=== PATIENT | male | born 1945 | race African-American/Black ===

== ENCOUNTER 2017-07-05 15:08 | Inpatient (IN) | payer OTHER ==
--- NOTE | 2017-07-05 16:04 | PDOC ---
History of Present Illness - History of Present Illness Initial Comments: 07/05/17 17:04 The patient is a 72 year old male who was BIBA from [facility], with PMHx of diabetes, who was sent to the the emergency department by Dr. Rangel Morel for semi-purulent drainage from dorsal aspect of right foot. Patient denied experiencing any current symptoms. Allergies: NKA Social History: Nonsmoker. Denies EtOH use and recreational drug use. Primary Care Physician: Rangel Morel <Angy Watts - Last Filed: 07/05/17 17:03> <Lucía Ford - Last Filed: 07/08/17 22:28> - General Chief Complaint: Wound Infection Stated Complaint: WOUND CARE ADMISSION Time Seen by Provider: 07/05/17 16:04 Past History <Angy Watts - Last Filed: 07/05/17 17:03> - Past Medical History CVA: Yes Diabetes: Yes HTN: Yes Hypercholesterolemia: Yes - Suicide/Smoking/Psychosocial Hx Smoking History: Former smoker Have you smoked in the past 12 months: No Information on smoking cessation initiated: No Hx Alcohol Use: No Drug/Substance Use Hx: No Substance Use Type: None <Lucía Ford - Last Filed: 07/08/17 22:28> - Past Medical History Allergies/Adverse Reactions: Allergies Allergy/AdvReac Type Severity Reaction Status Date / Time watermelon Allergy Unknown Verified 07/05/17 15:24 Home Medications: Ambulatory Orders Albuterol Sulfate 0.5% [Ventolin 0.5% Nebulizing Soln. -] 1 amp IH PRN 07/05/17 Allopurinol [Zyloprim -] 100 mg PO DAILY 07/05/17 Amlodipine Besylate 5 mg PO DAILY 07/05/17 Atorvastatin Ca [Lipitor] 20 mg PO HS 07/05/17 Clopidogrel Bisulfate [Plavix -] 75 mg PO DAILY 07/05/17 Diphenhydramine [Benadryl Capsule -] 25 mg PO HS 07/05/17 Review of Systems - Review of Systems Comments:: 07/05/17 17:03 GENERAL/CONSTITUTIONAL: No fever or chills. No weakness. HEAD, EYES, EARS, NOSE AND THROAT: No change in vision. No ear pain or discharge. No sore throat. CARDIOVASCULAR: No chest pain or shortness of breath. RESPIRATORY: No cough, wheezing, or hemoptysis. GASTROINTESTINAL: No nausea, vomiting, diarrhea or constipation. GENITOURINARY: No dysuria, frequency, or change in urination. MUSCULOSKELETAL: No joint or muscle swelling or pain. No neck or back pain. SKIN: +right foot drainage. NEUROLOGIC: No headache, vertigo, loss of consciousness, or change in strength/ sensation. ENDOCRINE: No increased thirst. No abnormal weight change. HEMATOLOGIC/LYMPHATIC: No anemia, easy bleeding, or history of blood clots. ALLERGIC/IMMUNOLOGIC: No hives or skin allergy. <Angy Watts - Last Filed: 07/05/17 17:03> *Physical Exam - Vital Signs Last Vital Signs Temp Pulse Resp BP Pulse Ox 97.3 F L 67 20 160/80 98 07/05/17 15:25 07/05/17 15:25 07/05/17 15:07/05/17 15:07/05/17 15:25 - Physical Exam Comments: 07/05/17 17:03 GENERAL: Awake, alert, and fully oriented, in no acute distress HEAD: No signs of trauma EYES: PERRLA, EOMI, sclera anicteric, conjunctiva clear ENT: Auricles normal inspection, hearing grossly normal, nares patent, oropharynx clear without exudates. Moist mucosa NECK: Normal ROM, supple, no lymphadenopathy, JVD, or masses LUNGS: Breath sounds equal, clear to auscultation bilaterally. No wheezes, and no crackles HEART: Regular rate and rhythm, normal S1 and S2, no murmurs, rubs or gallops ABDOMEN: Soft, nontender, normoactive bowel sounds. No guarding, no rebound. No masses EXTREMITIES: Normal range of motion, no edema. No clubbing or cyanosis. No cords, erythema, or tenderness NEUROLOGICAL: Cranial nerves II through XII grossly intact. Normal speech, normal gait SKIN: +semi-purulent drainage from dorsal aspect of right foot. <Angy Watts - Last Filed: 07/05/17 17:03> - Vital Signs Last Vital Signs Temp Pulse Resp BP Pulse Ox 97.3 F L 67 20 160/80 98 07/05/17 15:25 07/05/17 15:25 07/05/17 15:25 07/05/17 15:25 07/05/17:25 <Lucía Ford - Last Filed: 07/08/17 22:28> ED Treatment Course - LABORATORY CBC & Chemistry Diagram: 07/06/17 07:50 07/06/17 07:50 <Lucía Ford - Last Filed: 07/08/17 22:28> Medical Decision Making - Medical Decision Making 07/05/17 18:39 Pt comes from wound care clinic with a hand written note by Dr. Scott to admit patient for infected foot and cellulitic leg. Today pt had lalit boot removed and he has drainage from the foot. Pt's BUN and CR are elevated - we will treat with NSS 500 ml. He received vanco and zosyn for the leg and foot. Pt has no other complaints. He states that he is afebrile and he was unaware that the foot was infected inside the lalit boot. Pt lives at [facility]; states that he had been on section * living on his own, but that [facility] recruited him and took his apt away from him. 07/08/17 22:27 Pt will be admitted for IV abx <Lucía Ford - Last Filed: 07/08/17 22:28> *DC/Admit/Observation/Transfer - Attestations Scribe Attestion: 07/05/17 17:05 Documentation prepared by Angy Watts, acting as medical language specialist for Lucía Ford MD. <Angy Watts - Last Filed: 07/05/17 17:03> - Discharge Dispostion Admit: Yes <Lucía Ford - Last Filed: 07/08/17 22:28> Diagnosis at time of Disposition: Cellulitis, leg, Cellulitis of foot - Discharge Dispostion Condition at time of disposition: Guarded
[2017-07-05] MEDS ORDERED: VANCOMYCIN 1,000 MG in DEXTROSE 5%-WATER - 250 ML IVPB ONE (16:34)
[2017-07-05] MEDS ORDERED: PIPERACILLIN/TAZOB 3.375 GM 3.375 GM in DEXTROSE 5%-WATER - 50 ML IVPB ONE (16:35)
[2017-07-05] MEDS ORDERED: VANCOMYCIN 1 GRAM (PRE-DOCKED) 250 ML IVPB ONE (18:12)
[2017-07-05] MEDS ORDERED: PIPERACILLIN/TAZOB 3.375 GM 50 ML IVPB ONE (18:12)
[2017-07-05 18:20] LABS: BASOPHIL 1.4 % (0-2.0); MCHC 32.7 g/dl (32.0-35.9); MEAN CELL VOLUME 91.6 fl (80-96); MEAN PLT VOLUME 9.6 fl (7.5-11.1); NEUTROPHILS 59.3 % (42.8-82.8); PLATELET COUNT 225 K/MM3 (134-434); RDW 14.3 % (11.9-15.9); WHITE BLOOD COUNT 6.8 K/mm3 (4.0-10.0)
[2017-07-05 18:29] LABS: ALBUMIN 2.7 g/dl (3.4-5.0); ALK PHOS 116 U/L (45-117); ANION GAP 8 (8-16); BILIRUBIN,TOTAL 0.3 mg/dL (0.2-1.0); C-REACTIVE PROTEIN 4.1 MG/DL (0.00-0.3); CALCIUM 8.3 mg/dL (8.5-10.1); CO2 28 mmol/L (21-32); CREATININE 1.7 mg/dL (0.7-1.3); GLUCOSE,RANDOM 114 mg/dL (74-106); SGOT/AST 16 U/L (15-37); SGPT/ALT 20 U/L (12-78); TOT PROT 7.8 g/dl (6.4-8.2)
[2017-07-05] MEDS ORDERED: SODIUM CHLORIDE 0.9% 500 ML INFUS.BAG IV ONE (18:38)
[2017-07-05] MEDS ORDERED: diphenhydrAMINE HCL 25 MG CAPSULE (FP) PO PRN (20:06)
[2017-07-05] MEDS ORDERED: ACETAMINOPHEN 325 MG TABLET (FP) PO PRN (20:06)
[2017-07-05] MEDS ORDERED: ALBUTEROL SO4 2.5/IPRATROPIUM 0.5 INH SOL 3 ML VIAL.NEB. NEB PRN (20:06)
--- NOTE | 2017-07-05 20:07 | HP ---
Admitting History and Physical - Primary Care Physician PCP: Filippo Clarke - Admission Chief Complaint: wound infection - Smoking History Smoking history: Former smoker Have you smoked in the past 12 months: No - Alcohol/Substance Use Hx Alcohol Use: No Home Medications - Allergies Allergies/Adverse Reactions: Allergies Allergy/AdvReac Type Severity Reaction Status Date / Time watereleazaron Allergy Unknown Verified 07/05/17 15:24 - Home Medications Home Medications: Ambulatory Orders Albuterol Sulfate 0.5% [Ventolin 0.5% Nebulizing Soln. -] 1 amp IH PRN 07/05/17 Allopurinol [Zyloprim -] 100 mg PO DAILY 07/05/17 Amlodipine Besylate 5 mg PO DAILY 07/05/17 Atorvastatin Ca [Lipitor] 20 mg PO HS 07/05/17 Clopidogrel Bisulfate [Plavix -] 75 mg PO DAILY 07/05/17 Diphenhydramine [Benadryl Capsule -] 25 mg PO HS 07/05/17 Physical Examination Vital Signs: Vital Signs Temperature 98 F 07/05/17 19:40 Pulse Rate 72 07/05/17 19:40 Respiratory Rate 18 07/05/17 19:40 Blood Pressure 148/70 07/05/17 19:40 O2 Sat by Pulse Oximetry (%) 98 07/05/17 19:40 Labs: CBC, BMP 07/05/17 17:50 07/05/17 17:50
[2017-07-05] MEDS: HEPARIN NA (PORCINE) 5,000 UNITS/ML 1ML VIAL SQ SCH (22:10)
[2017-07-05] MEDS: ATORVASTATIN CA 20 MG TABLET (FP) PO SCH (22:10)
[2017-07-05 22:48] VITALS: BMI 39.1
[2017-07-06 09:00] LABS: MCH 29.1 pg (25.7-33.7); MCHC 31.8 g/dl (32.0-35.9); MEAN CELL VOLUME 91.6 fl (80-96); MEAN PLT VOLUME 9.8 fl (7.5-11.1); PLATELET COUNT 201 K/MM3 (134-434); RDW 14.1 % (11.9-15.9); WHITE BLOOD COUNT 6.3 K/mm3 (4.0-10.0)
[2017-07-06 09:18] LABS: ALBUMIN 2.4 g/dl (3.4-5.0); ANION GAP 10 (8-16); CALCIUM 8.6 mg/dL (8.5-10.1); CHOLESTEROL 245 mg/dL (50-200); CO2 25 mmol/L (21-32); GLUCOSE,RANDOM 104 mg/dL (74-106); SGOT/AST 11 U/L (15-37)
[2017-07-06 09:20] LABS: ALK PHOS 99 U/L (45-117); BILIRUBIN,TOTAL 0.4 mg/dL (0.2-1.0); CREATININE 1.7 mg/dL (0.7-1.3); SGPT/ALT 16 U/L (12-78)
[2017-07-06] MEDS: ALLOPURINOL 100 MG TABLET (FP) PO SCH (10:10)
[2017-07-06] MEDS: amLODIPine BESYLATE 5 MG TABLET (FP) PO SCH (10:10)
[2017-07-06] MEDS: HEPARIN NA (PORCINE) 5,000 UNITS/ML 1ML VIAL SQ SCH ×2 (10:13→21:49)
[2017-07-06] MEDS: CLOPIDOGREL BISULFATE 75 MG TABLET (FP) PO SCH (10:13)
[2017-07-06 11:35] LABS: ERYTHROCYTE SEDIMENTATION RATE > 130 mm/hr (0-20)
--- NOTE | 2017-07-06 11:55 | EKG ---
Test Reason : Blood Pressure : / mmHG Vent. Rate : 068 BPM Atrial Rate : 068 BPM P-R Int : 210 ms QRS Dur : 078 ms QT Int : 392 ms P-R-T Axes : 065 049 144 degrees QTc Int : 416 ms SINUS RHYTHM WITH SINUS ARRHYTHMIA WITH 1ST DEGREE A-V BLOCK POSSIBLE LEFT ATRIAL ENLARGEMENT T WAVE ABNORMALITY, CONSIDER INFEROLATERAL ISCHEMIA ABNORMAL ECG NO PREVIOUS ECGS AVAILABLE Confirmed by AVERY BISHOP, SONAL ([id number]) on 07/06/2017 11:55:02 AM Referred By: Confirmed By:SONAL VARELA MD
--- NOTE | 2017-07-06 14:37 | CON.ID ---
Consult Consult Specialty:: infectious diseases Reason for Consultation:: cellulitis of the rt leg and wound infection - History of Present Illness Chief Complaint: swelling of the rt foot and wound infection History of Present Illness: this patient who has multiple medical problems admitted to the hospital because of wound infection of the rt foot. patients foot had been placed in lalit boot for some time and when the lalit boot was removed it was found that the patient had infection of the foot patients had gone to the wound care yesterday and the dressing was changed.it was found that the drainage was coming from the dorsal part of the leg which was purulent and foul smelling patients wound was cultured yesterday from the wound care patient has very contracted leg and very painful also he has scaly patches on the leg i have spoken with our wound care department in detail and according to the wound care purulent drainage was noted patient currently stable patient was send by pcp because he saw purulent drainage patient has known h/o of seizures and is contracted - History Source History Provided By: Patient Limitations to Obtaining History: No Limitations - Alcohol/Substance Use Hx Alcohol Use: No - Smoking History Smoking history: Former smoker Have you smoked in the past 12 months: No Home Medications - Allergies Allergies/Adverse Reactions: Allergies Allergy/AdvReac Type Severity Reaction Status Date / Time watermelon Allergy Unknown Verified 07/05/17 15:24 - Home Medications Home Medications: Ambulatory Orders Albuterol Sulfate 0.5% [Ventolin 0.5% Nebulizing Soln. -] 1 amp IH PRN 07/05/17 Allopurinol [Zyloprim -] 100 mg PO DAILY 07/05/17 Amlodipine Besylate 5 mg PO DAILY 07/05/17 Atorvastatin Ca [Lipitor] 20 mg PO HS 07/05/17 Clopidogrel Bisulfate [Plavix -] 75 mg PO DAILY 07/05/17 Diphenhydramine [Benadryl Capsule -] 25 mg PO HS 07/05/17 Review of Systems - Review of Systems Constitutional: reports: Other Eyes: reports: No Symptoms HENT: reports: No Symptoms Neck: reports: No Symptoms Cardiovascular: reports: No Symptoms Respiratory: reports: No Symptoms Gastrointestinal: reports: No Symptoms Musculoskeletal: reports: Extremity Pain, Joint Pain, Other Integumentary: reports: Erythema, Wound, Other Neurological: reports: No Symptoms Endocrine: reports: No Symptoms Hematology/Lymphatic: reports: No Symptoms Psychiatric: reports: No Symptoms Physical Exam Vital Signs: Vital Signs Temperature 98.0 F 07/06/17 13:37 Pulse Rate 83 07/06/17 13:37 Respiratory Rate 20 07/06/17 13:37 Blood Pressure 159/43 07/06/17 13:37 O2 Sat by Pulse Oximetry (%) 98 07/05/17 19:40 Constitutional: Yes: Poor Hygeine, Other Eyes: Yes: Conjunctiva Clear Cardiovascular: Yes: Regular Rate and Rhythm Respiratory: Yes: Regular, CTA Bilaterally Gastrointestinal: Yes: Normal Bowel Sounds, Soft Musculoskeletal: Yes: Other Extremities: Yes: Other (contracted) Integumentary: Yes: Other Wound/Incision: Yes: Dressing Dry and Intact, Draining Neurological: Yes: Alert, Oriented Psychiatric: Yes: Alert, Oriented Labs: CBC, BMP 07/06/17 07:50 07/06/17 07:50 Imaging - Results X-ray: Report Reviewed, Image Reviewed Assessment/Plan cellulitits of the rt foot wound infection plan will start on pablo and treyn await for wound care to see the patient decision to do mri rest as per primary
[2017-07-06] MEDS ORDERED: PIPERACILLIN/TAZOB 2.25 GM 50 ML IVPB SCH (15:00)
[2017-07-06] MEDS: VANCOMYCIN 1,250 MG in DEXTROSE 5%-WATER - 250 ML IVPB SCH (16:24)
--- NOTE | 2017-07-06 17:18 | HP ---
Admitting History and Physical - Admission History of Present Illness: 72 year old male who was BIBA from [facility], with PMHx of diabetes , who was sent to the the emergency department by Dr. Rangel Morel for semi- purulent drainage from dorsal aspect of right foot. - Past Medical History Cardiovascular: Yes: HTN, Hyperlipdemia Pulmonary: Yes: COPD Endocrine: Yes: Diabetes Mellitus - Smoking History Smoking history: Former smoker Have you smoked in the past 12 months: No - Alcohol/Substance Use Hx Alcohol Use: No Home Medications - Allergies Allergies/Adverse Reactions: Allergies Allergy/AdvReac Type Severity Reaction Status Date / Time watermelon Allergy Unknown Verified 07/05/17 15:24 - Home Medications Home Medications: Ambulatory Orders Albuterol Sulfate 0.5% [Ventolin 0.5% Nebulizing Soln. -] 1 amp IH PRN 07/05/17 Allopurinol [Zyloprim -] 100 mg PO DAILY 07/05/17 Amlodipine Besylate 5 mg PO DAILY 07/05/17 Atorvastatin Ca [Lipitor] 20 mg PO HS 07/05/17 Clopidogrel Bisulfate [Plavix -] 75 mg PO DAILY 07/05/17 Diphenhydramine [Benadryl Capsule -] 25 mg PO HS 07/05/17 Review of Systems - Review of Systems Integumentary: reports: Other (foot ulcer--followed at wound care) Physical Examination Vital Signs: Vital Signs Temperature 98.0 F 07/06/17 13:37 Pulse Rate 83 07/06/17 13:37 Respiratory Rate 20 07/06/17 13:37 Blood Pressure 159/43 07/06/17 13:37 O2 Sat by Pulse Oximetry (%) 98 07/05/17 19:40 Cardiovascular: Yes: Regular Rate and Rhythm Respiratory: Yes: Regular, CTA Bilaterally Gastrointestinal: Yes: Normal Bowel Sounds, Soft Wound/Incision: Yes: Dressing Dry and Intact Labs: CBC, BMP 07/06/17 07:50 07/06/17 07:50 Problem List - Problems (1) Cellulitis of foot Assessment/Plan: IV ABX PER ID FOLLOW LABS FOLLOW CULTURES WOUND PER SURGEON Code(s): L03.119 - CELLULITIS OF UNSPECIFIED PART OF LIMB (2) HTN (hypertension) Assessment/Plan: Vital Signs Period Temp Pulse Resp BP Sys/Zamorano Pulse Ox Last 24 Hr 98 F-98.4 F 69-83 18-20 139-160/43-86 98 Code(s): I10 - ESSENTIAL (PRIMARY) HYPERTENSION
--- NOTE | 2017-07-06 18:23 | CONSULT ---
Consult - Past Medical History Cardio/Vascular: Yes: HTN, Hyperlipdemia Pulmonary: Yes: COPD Endocrine: Yes: Diabetes Mellitus - Alcohol/Substance Use Hx Alcohol Use: No - Smoking History Smoking history: Former smoker Have you smoked in the past 12 months: No Home Medications - Allergies Allergies/Adverse Reactions: Allergies Allergy/AdvReac Type Severity Reaction Status Date / Time watermelon Allergy Unknown Verified 07/05/17 15:24 - Home Medications Home Medications: Ambulatory Orders Albuterol Sulfate 0.5% [Ventolin 0.5% Nebulizing Soln. -] 1 amp IH PRN 07/05/17 Allopurinol [Zyloprim -] 100 mg PO DAILY 07/05/17 Amlodipine Besylate 5 mg PO DAILY 07/05/17 Atorvastatin Ca [Lipitor] 20 mg PO HS 07/05/17 Clopidogrel Bisulfate [Plavix -] 75 mg PO DAILY 07/05/17 Diphenhydramine [Benadryl Capsule -] 25 mg PO HS 07/05/17 Physical Exam Vital Signs: Vital Signs Temperature 98.0 F 07/06/17 13:37 Pulse Rate 83 07/06/17 13:37 Respiratory Rate 20 07/06/17 13:37 Blood Pressure 159/43 07/06/17 13:37 O2 Sat by Pulse Oximetry (%) 98 07/05/17 19:40 Labs: CBC, BMP 07/06/17 07:50 07/06/17 07:50 Assessment/Plan Vascular Surgery 72 year old male who was BIBA from [facility], with PMHx of diabetes , who was sent to the the emergency department by Dr. Rangel Morel for semi- purulent drainage from dorsal aspect of right foot. - Past Medical History Cardiovascular: Yes: HTN, Hyperlipdemia Pulmonary: Yes: COPD Endocrine: Yes: Diabetes Mellitus - Smoking History Smoking history: Former smoker Have you smoked in the past 12 months: No - Alcohol/Substance Use Hx Alcohol Use: No Home Medications - Allergies Allergies/Adverse Reactions: Allergies Allergy/AdvReac Type Severity Reaction Status Date / Time watermelon Allergy Unknown Verified 07/05/17 15:24 - Home Medications Home Medications: Ambulatory Orders Albuterol Sulfate 0.5% [Ventolin 0.5% Nebulizing Soln. -] 1 amp IH PRN 07/05/17 Allopurinol [Zyloprim -] 100 mg PO DAILY 07/05/17 Amlodipine Besylate 5 mg PO DAILY 07/05/17 Atorvastatin Ca [Lipitor] 20 mg PO HS 07/05/17 Clopidogrel Bisulfate [Plavix -] 75 mg PO DAILY 07/05/17 Diphenhydramine [Benadryl Capsule -] 25 mg PO HS 07/05/17 PE Head - NC/AT Lung - cTA Heart - rRR abd - soft,nt,nd ext - right foot warm, DP pulse palpable. wound inbetween first web space with maggots. Wound is clean, pink. A/P Right foot wound with deformity (charcot) Maggots in wound -- flushed out. Santyl to wounds daily. Palpable pulses. Amos Mcneil DO
[2017-07-06] MEDS: PIPERACILLIN/TAZOB 2.25 GM 50 ML IVPB SCH (18:33)
[2017-07-06] MEDS: COLLAGENASE CLOSTRIDIUM HIST. 30 GRAMS TUBE TP SCH (19:30)
[2017-07-06] MEDS: ATORVASTATIN CA 20 MG TABLET (FP) PO SCH (21:49)
[2017-07-07] MEDS: PIPERACILLIN/TAZOB 2.25 GM 50 ML IVPB SCH ×4 (01:12→18:11)
--- NOTE | 2017-07-07 08:43 | PN ---
Progress Note, Physician - Current Medication List Current Medications: Active Medications Acetaminophen (Tylenol -) 650 mg PO Q6H PRN PRN Reason: FEVER OR PAIN Albuterol/Ipratropium (Duoneb -) 1 amp NEB Q6H PRN PRN Reason: SHORTNESS OF BREATH Allopurinol (Zyloprim -) 100 mg PO DAILY [facility] Last Admin: 07/06/17 10:10 Dose: 100 mg Amlodipine Besylate (Norvasc -) 5 mg PO DAILY [facility] Last Admin: 07/06/17 10:10 Dose: 5 mg Atorvastatin Calcium (Lipitor -) 20 mg PO HS [facility] Last Admin: 07/06/17 21:49 Dose: 20 mg Clopidogrel Bisulfate (Plavix -) 75 mg PO DAILY [facility] Last Admin: 07/06/17 10:13 Dose: Not Given Collagenase (Santyl -) 1 applic TP DAILY [facility] Last Admin: 07/06/17 19:30 Dose: 1 applic Diphenhydramine HCl (Benadryl -) 25 mg PO HS PRN PRN Reason: INSOMNIA Heparin Sodium (Porcine) (Heparin -) 5,000 unit SQ BID [facility] Last Admin: 07/06/17 21:49 Dose: 5,000 unit Vancomycin HCl 1,250 mg/ (Dextrose) 250 mls @ 150 mls/hr IVPB DAILY@1500 CHANTELL PRN Reason: Protocol Last Admin: 07/06/17 16:24 Dose: 150 mls/hr Piperacillin/Tazobactam/Dextrose (Zosyn 2.25gm Ivpb (Premix)) 50 mls @ 100 mls/ hr IVPB Q8H-IV CHANTELL PRN Reason: Protocol Last Admin: 07/07/17 08:01 Dose: Not Given - Objective Vital Signs: Vital Signs Temperature 98.0 F 07/07/17 06:19 Pulse Rate 69 07/07/17 06:19 Respiratory Rate 20 07/07/17 06:19 Blood Pressure 152/57 07/07/17 06:19 O2 Sat by Pulse Oximetry (%) 98 07/05/17 19:40 Cardiovascular: Yes: Regular Rate and Rhythm Respiratory: Yes: Regular, CTA Bilaterally Gastrointestinal: Yes: Normal Bowel Sounds, Soft Labs: CBC, BMP 07/06/17 07:50 07/06/17 07:50 Problem List - Problems (1) Cellulitis of foot Assessment/Plan: IV ABX PER ID FOLLOW LABS FOLLOW CULTURES WOUND PER SURGEON Code(s): L03.119 - CELLULITIS OF UNSPECIFIED PART OF LIMB (2) HTN (hypertension) Assessment/Plan: Vital Signs Period Temp Pulse Resp BP Sys/Zamorano Pulse Ox Last 24 Hr 98 F-98.4 F 69-83 18-20 139-160/43-86 98 Code(s): I10 - ESSENTIAL (PRIMARY) HYPERTENSION (3) Wound, open, foot Assessment/Plan: PER SURGERY ABX PER ID Code(s): S91.309A - UNSPECIFIED OPEN WOUND, UNSPECIFIED FOOT, INITIAL ENCOUNTER
[2017-07-07] MEDS: CLOPIDOGREL BISULFATE 75 MG TABLET (FP) PO SCH (09:36)
[2017-07-07] MEDS: ALLOPURINOL 100 MG TABLET (FP) PO SCH (09:37)
[2017-07-07] MEDS: amLODIPine BESYLATE 5 MG TABLET (FP) PO SCH (09:37)
[2017-07-07] MEDS: HEPARIN NA (PORCINE) 5,000 UNITS/ML 1ML VIAL SQ SCH ×2 (09:38→21:22)
[2017-07-07] MEDS: COLLAGENASE CLOSTRIDIUM HIST. 30 GRAMS TUBE TP SCH (12:47)
--- NOTE | 2017-07-07 12:48 | PN ---
Progress Note, Physician History of Present Illness: patient stable dressing removed wound looked at - Current Medication List Current Medications: Active Medications Acetaminophen (Tylenol -) 650 mg PO Q6H PRN PRN Reason: FEVER OR PAIN Albuterol/Ipratropium (Duoneb -) 1 amp NEB Q6H PRN PRN Reason: SHORTNESS OF BREATH Allopurinol (Zyloprim -) 100 mg PO DAILY [facility] Last Admin: 07/07/17 09:37 Dose: 100 mg Amlodipine Besylate (Norvasc -) 5 mg PO DAILY [facility] Last Admin: 07/07/17 09:37 Dose: 5 mg Atorvastatin Calcium (Lipitor -) 20 mg PO HS [facility] Last Admin: 07/06/17 21:49 Dose: 20 mg Clopidogrel Bisulfate (Plavix -) 75 mg PO DAILY [facility] Last Admin: 07/07/17 09:36 Dose: 75 mg Collagenase (Santyl -) 1 applic TP DAILY [facility] Last Admin: 07/06/17 19:30 Dose: 1 applic Diphenhydramine HCl (Benadryl -) 25 mg PO HS PRN PRN Reason: INSOMNIA Heparin Sodium (Porcine) (Heparin -) 5,000 unit SQ BID [facility] Last Admin: 07/07/17 09:38 Dose: 5,000 unit Vancomycin HCl 1,250 mg/ (Dextrose) 250 mls @ 150 mls/hr IVPB DAILY@1500 CHANTELL PRN Reason: Protocol Last Admin: 07/06/17 16:24 Dose: 150 mls/hr Piperacillin/Tazobactam/Dextrose (Zosyn 2.25gm Ivpb (Premix)) 50 mls @ 100 mls/ hr IVPB Q8H-IV [facility]ANTELL PRN Reason: Protocol Last Admin: 07/07/17 09:39 Dose: 100 mls/hr - Objective Vital Signs: Vital Signs Temperature 98.0 F 07/07/17 06:19 Pulse Rate 69 07/07/17 06:19 Respiratory Rate 20 07/07/17 09:00 Blood Pressure 152/57 07/07/17 06:19 O2 Sat by Pulse Oximetry (%) 98 07/05/17 19:40 Constitutional: Yes: No Distress, Calm Neck: Yes: Supple, Trachea Midline Cardiovascular: Yes: Regular Rate and Rhythm Respiratory: Yes: Regular, CTA Bilaterally Gastrointestinal: Yes: Normal Bowel Sounds, Soft Musculoskeletal: Yes: Other Extremities: Yes: Other (contracted) Wound/Incision: Yes: Dressing Removed, Other (patient had maggots in the wound) Neurological: Yes: Alert Psychiatric: Yes: Alert, Oriented Labs: CBC, BMP 07/06/17 07:50 07/06/17 07:50 Assessment/Plan cellulitits of the rt foot wound infection plan continue abx wound cx noted possibly mrsa with polymicrobial infection await for identification and sensitivities of the organism
[2017-07-07] MEDS: VANCOMYCIN 1,250 MG in DEXTROSE 5%-WATER - 250 ML IVPB SCH (15:59)
[2017-07-07] MEDS: ATORVASTATIN CA 20 MG TABLET (FP) PO SCH (21:22)
[2017-07-08] MEDS: PIPERACILLIN/TAZOB 2.25 GM 50 ML IVPB SCH ×3 (01:18→17:50)
[2017-07-08] MEDS: CLOPIDOGREL BISULFATE 75 MG TABLET (FP) PO SCH (10:01)
[2017-07-08] MEDS: amLODIPine BESYLATE 5 MG TABLET (FP) PO SCH (10:01)
[2017-07-08] MEDS: ALLOPURINOL 100 MG TABLET (FP) PO SCH (10:01)
[2017-07-08] MEDS: HEPARIN NA (PORCINE) 5,000 UNITS/ML 1ML VIAL SQ SCH ×2 (10:02→22:31)
[2017-07-08] MEDS: COLLAGENASE CLOSTRIDIUM HIST. 30 GRAMS TUBE TP SCH (10:06)
--- NOTE | 2017-07-08 13:12 | PN ---
Progress Note, Physician History of Present Illness: NO CHANGE - Current Medication List Current Medications: Active Medications Acetaminophen (Tylenol -) 650 mg PO Q6H PRN PRN Reason: FEVER OR PAIN Albuterol/Ipratropium (Duoneb -) 1 amp NEB Q6H PRN PRN Reason: SHORTNESS OF BREATH Allopurinol (Zyloprim -) 100 mg PO DAILY [facility] Last Admin: 07/08/17 10:01 Dose: 100 mg Amlodipine Besylate (Norvasc -) 5 mg PO DAILY [facility] Last Admin: 07/08/17 10:01 Dose: 5 mg Atorvastatin Calcium (Lipitor -) 20 mg PO HS [facility] Last Admin: 07/07/17 21:22 Dose: 20 mg Clopidogrel Bisulfate (Plavix -) 75 mg PO DAILY [facility] Last Admin: 07/08/17 10:01 Dose: 75 mg Collagenase (Santyl -) 1 applic TP DAILY [facility] Last Admin: 07/08/17 10:06 Dose: 1 applic Diphenhydramine HCl (Benadryl -) 25 mg PO HS PRN PRN Reason: INSOMNIA Heparin Sodium (Porcine) (Heparin -) 5,000 unit SQ BID [facility] Last Admin: 07/08/17 10:02 Dose: 5,000 unit Vancomycin HCl 1,250 mg/ (Dextrose) 250 mls @ 150 mls/hr IVPB DAILY@1500 CHANTELL PRN Reason: Protocol Last Admin: 07/07/17 15:59 Dose: 150 mls/hr Piperacillin/Tazobactam/Dextrose (Zosyn 2.25gm Ivpb (Premix)) 50 mls @ 100 mls/ hr IVPB Q8H-IV CHANTELL PRN Reason: Protocol Last Admin: 07/08/17 10:00 Dose: 100 mls/hr - Objective Vital Signs: Vital Signs Temperature 98.2 F 07/08/17 10:00 Pulse Rate 76 07/08/17 10:00 Respiratory Rate 20 07/08/17 10:00 Blood Pressure 148/88 07/08/17 10:00 O2 Sat by Pulse Oximetry (%) 98 07/05/17 19:40 Cardiovascular: Yes: S1, S2 Respiratory: Yes: Regular, CTA Bilaterally Gastrointestinal: Yes: Normal Bowel Sounds, Soft Wound/Incision: Yes: Dressing Dry and Intact Labs: CBC, BMP 07/06/17 07:50 07/06/17 07:50 Problem List - Problems (1) Cellulitis of foot Assessment/Plan: IV ABX PER ID FOLLOW LABS FOLLOW CULTURES WOUND PER SURGEON Code(s): L03.119 - CELLULITIS OF UNSPECIFIED PART OF LIMB (2) HTN (hypertension) Assessment/Plan: Vital Signs Period Temp Pulse Resp BP Sys/Zamorano Pulse Ox Last 24 Hr 98 F-98.4 F 69-83 18-20 139-160/43-86 98 Code(s): I10 - ESSENTIAL (PRIMARY) HYPERTENSION (3) Wound, open, foot Assessment/Plan: PER SURGERY ABX PER ID Code(s): S91.309A - UNSPECIFIED OPEN WOUND, UNSPECIFIED FOOT, INITIAL ENCOUNTER
--- NOTE | 2017-07-08 14:44 | PN ---
Progress Note, Physician Chief Complaint: ID progress note History of Present Illness: Pt seen and examined. Chart, labs, imaging results reviewed. He states he feels "the same". Has some pain in Rt foot but does not want pain medication. Denies having any other specific complaints. - Current Medication List Current Medications: Active Medications Acetaminophen (Tylenol -) 650 mg PO Q6H PRN PRN Reason: FEVER OR PAIN Albuterol/Ipratropium (Duoneb -) 1 amp NEB Q6H PRN PRN Reason: SHORTNESS OF BREATH Allopurinol (Zyloprim -) 100 mg PO DAILY [facility] Last Admin: 07/08/17 10:01 Dose: 100 mg Amlodipine Besylate (Norvasc -) 5 mg PO DAILY [facility] Last Admin: 07/08/17 10:01 Dose: 5 mg Atorvastatin Calcium (Lipitor -) 20 mg PO HS [facility] Last Admin: 07/07/17 21:22 Dose: 20 mg Clopidogrel Bisulfate (Plavix -) 75 mg PO DAILY [facility] Last Admin: 07/08/17 10:01 Dose: 75 mg Collagenase (Santyl -) 1 applic TP DAILY [facility] Last Admin: 07/08/17 10:06 Dose: 1 applic Diphenhydramine HCl (Benadryl -) 25 mg PO HS PRN PRN Reason: INSOMNIA Heparin Sodium (Porcine) (Heparin -) 5,000 unit SQ BID [facility] Last Admin: 07/08/17 10:02 Dose: 5,000 unit Vancomycin HCl 1,250 mg/ (Dextrose) 250 mls @ 150 mls/hr IVPB DAILY@1500 [facility] PRN Reason: Protocol Last Admin: 07/07/17 15:59 Dose: 150 mls/hr Piperacillin/Tazobactam/Dextrose (Zosyn 2.25gm Ivpb (Premix)) 50 mls @ 100 mls/ hr IVPB Q8H-IV [facility] PRN Reason: Protocol Last Admin: 07/08/17 10:00 Dose: 100 mls/hr - Objective Vital Signs: Vital Signs Temperature 98.2 F 07/08/17 10:00 Pulse Rate 76 07/08/17 10:00 Respiratory Rate 20 07/08/17 10:00 Blood Pressure 148/88 07/08/17 10:00 O2 Sat by Pulse Oximetry (%) 98 07/05/17 19:40 Constitutional: Yes: No Distress, Calm Eyes: Yes: WNL HENT: Yes: WNL Neck: Yes: WNL Cardiovascular: Yes: Regular Rate and Rhythm Respiratory: Yes: CTA Bilaterally Gastrointestinal: Yes: Normal Bowel Sounds, Soft Genitourinary: Yes: WNL Integumentary: Yes: Other (Rt foot swelling, dorsal wound with ointment applied , +tenderness Rt LE scaling/dry, mild warmth) Labs: CBC, BMP 07/06/17 07:50 07/06/17 07:50 Wound culture: providencia, morganella, mssa, staph coag (-) Problem List - Problems (1) Cellulitis of foot Code(s): L03.119 - CELLULITIS OF UNSPECIFIED PART OF LIMB (2) Cellulitis, leg Code(s): L03.119 - CELLULITIS OF UNSPECIFIED PART OF LIMB (3) HTN (hypertension) Code(s): I10 - ESSENTIAL (PRIMARY) HYPERTENSION (4) Wound, open, foot Code(s): S91.309A - UNSPECIFIED OPEN WOUND, UNSPECIFIED FOOT, INITIAL ENCOUNTER Assessment/Plan Rt foot wound infection Rt LE Cellulitis ?CKD - continue current antibiotics, check Vancomycin trough - follow final results of wound culture - continue wound care - monitor renal function
[2017-07-08] MEDS ORDERED: PT OWN MED DRAWER 7, Y5N ONE (15:28)
[2017-07-08] MEDS: VANCOMYCIN 1,250 MG in DEXTROSE 5%-WATER - 250 ML IVPB SCH (15:34)
[2017-07-08] MEDS: ATORVASTATIN CA 20 MG TABLET (FP) PO SCH (22:31)
[2017-07-09] MEDS ORDERED: PT OWN MED DRAWER 7, Y5N ONE ×2 (01:54→10:37)
[2017-07-09] MEDS: PIPERACILLIN/TAZOB 2.25 GM 50 ML IVPB SCH ×3 (02:03→17:39)
[2017-07-09] MEDS: HEPARIN NA (PORCINE) 5,000 UNITS/ML 1ML VIAL SQ SCH ×2 (10:38→22:08)
[2017-07-09] MEDS: CLOPIDOGREL BISULFATE 75 MG TABLET (FP) PO SCH (10:38)
[2017-07-09] MEDS: amLODIPine BESYLATE 5 MG TABLET (FP) PO SCH (10:38)
[2017-07-09] MEDS: ALLOPURINOL 100 MG TABLET (FP) PO SCH (10:38)
[2017-07-09] MEDS: COLLAGENASE CLOSTRIDIUM HIST. 30 GRAMS TUBE TP SCH (13:17)
--- NOTE | 2017-07-09 14:34 | PN ---
Progress Note, Physician History of Present Illness: Pt seen and examined. States he feels better. Only minimal pain in RLE. Other jiang denies fever/chills/abd cramping/n/v/d, dyspnea or chest pain. - Current Medication List Current Medications: Active Medications Acetaminophen (Tylenol -) 650 mg PO Q6H PRN PRN Reason: FEVER OR PAIN Albuterol/Ipratropium (Duoneb -) 1 amp NEB Q6H PRN PRN Reason: SHORTNESS OF BREATH Allopurinol (Zyloprim -) 100 mg PO DAILY [facility] Last Admin: 07/09/17 10:38 Dose: 100 mg Amlodipine Besylate (Norvasc -) 5 mg PO DAILY [facility] Last Admin: 07/09/17 10:38 Dose: 5 mg Atorvastatin Calcium (Lipitor -) 20 mg PO HS [facility] Last Admin: 07/08/17 22:31 Dose: 20 mg Clopidogrel Bisulfate (Plavix -) 75 mg PO DAILY [facility] Last Admin: 07/09/17 10:38 Dose: 75 mg Collagenase (Santyl -) 1 applic TP DAILY [facility] Last Admin: 07/09/17 13:17 Dose: 1 applic Diphenhydramine HCl (Benadryl -) 25 mg PO HS PRN PRN Reason: INSOMNIA Heparin Sodium (Porcine) (Heparin -) 5,000 unit SQ BID [facility] Last Admin: 07/09/17 10:38 Dose: 5,000 unit Vancomycin HCl 1,250 mg/ (Dextrose) 250 mls @ 150 mls/hr IVPB DAILY@1500 [facility] PRN Reason: Protocol Last Admin: 07/08/17 15:34 Dose: 150 mls/hr Piperacillin/Tazobactam/Dextrose (Zosyn 2.25gm Ivpb (Premix)) 50 mls @ 100 mls/ hr IVPB Q8H-IV [facility] PRN Reason: Protocol Last Admin: 07/09/17 10:38 Dose: 100 mls/hr - Objective Vital Signs: Vital Signs Temperature 97.9 F 07/08/17 19:54 Pulse Rate 79 07/08/17 19:54 Respiratory Rate 20 07/08/17 22:00 Blood Pressure 152/97 07/08/17 19:54 O2 Sat by Pulse Oximetry (%) 98 07/05/17 19:40 Constitutional: Yes: No Distress, Calm HENT: Yes: WNL Neck: Yes: Supple Cardiovascular: Yes: Regular Rate and Rhythm Respiratory: Yes: CTA Bilaterally Gastrointestinal: Yes: Normal Bowel Sounds, Soft Extremities: Yes: Erythema (RLE crusting lesions, Rt dorsal foot ulcer with erythema, minimal tenderness) Labs: CBC, BMP 07/06/17 07:50 07/06/17 07:50 Laboratory Last Values WBC 6.3 K/mm3 (4.0-10.0) 07/06/17 07:50 RBC 4.01 M/mm3 (4.00-5.60) 07/06/17 07:50 Hgb 11.7 GM/dL (11.7-16.9) 07/06/17 07:50 Hct 36.8 % (35.4-49) 07/06/17 07:50 MCV 91.6 fl (80-96) 07/06/17 07:50 MCH 29.1 pg (25.7-33.7) 07/06/17 07:50 MCHC 31.8 g/dl (32.0-35.9) L 07/06/17 07:50 RDW 14.1 % (11.9-15.9) 07/06/17 07:50 Plt Count 201 K/MM3 (134-434) 07/06/17 07:50 MPV 9.8 fl (7.5-11.1) 07/06/17 07:50 Neutrophils % 59.3 % (42.8-82.8) 07/05/17 17:50 Lymphocytes % 28.2 % (8-40) 07/05/17 17:50 Monocytes % 9.1 % (3.8-10.2) 07/05/17 17:50 Eosinophils % 2.0 % (0-4.5) 07/05/17 17:50 Basophils % 1.4 % (0-2.0) 07/05/17 17:50 ESR > 130 mm/hr (0-20) H 07/06/17 07:50 Sodium 141 mmol/L (136-145) 07/06/17 07:50 Potassium 4.2 mmol/L (3.5-5.1) 07/06/17 07:50 Chloride 106 mmol/L (98-107) 07/06/17 07:50 Carbon Dioxide 25 mmol/L (21-32) 07/06/17 07:50 Anion Gap 10 (8-16) 07/06/17 07:50 BUN 27 mg/dL (7-18) H 07/06/17 07:50 Creatinine 1.7 mg/dL (0.7-1.3) H 07/06/17 07:50 Creat Clearance w eGFR 39.71 (>60) 07/06/17 07:50 Random Glucose 104 mg/dL (74-106) 07/06/17 07:50 Hemoglobin A1c % 7.2 % (4.8-6.0) H 07/06/17 07:50 Calcium 8.6 mg/dL (8.5-10.1) 07/06/17 07:50 Total Bilirubin 0.4 mg/dL (0.2-1.0) D 07/06/17 07:50 AST 11 U/L (15-37) L D 07/06/17 07:50 ALT 16 U/L (12-78) 07/06/17 07:50 Alkaline Phosphatase 99 U/L (45-117) 07/06/17 07:50 C-Reactive Protein 4.1 MG/DL (0.00-0.3) H 07/05/17 17:50 Total Protein 7.0 g/dl (6.4-8.2) 07/06/17 07:50 Albumin 2.4 g/dl (3.4-5.0) L 07/06/17 07:50 Triglycerides 118 mg/dL (35-160) 07/06/17 07:50 Cholesterol 245 mg/dL (50-200) H 07/06/17 07:50 Total LDL Cholesterol 150 mg/dL (5-100) H 07/06/17 07:50 HDL Cholesterol 47 mg/dL (40-60) 07/06/17 07:50 Vancomycin Pre-Dose 16.921 ug/ml (5.0-10.0) H* 07/09/17 13:49 Problem List - Problems (1) Cellulitis of foot Code(s): L03.119 - CELLULITIS OF UNSPECIFIED PART OF LIMB (2) Cellulitis, leg Code(s): L03.119 - CELLULITIS OF UNSPECIFIED PART OF LIMB (3) HTN (hypertension) Code(s): I10 - ESSENTIAL (PRIMARY) HYPERTENSION (4) Wound, open, foot Code(s): S91.309A - UNSPECIFIED OPEN WOUND, UNSPECIFIED FOOT, INITIAL ENCOUNTER Assessment/Plan Rt foot wound infection Rt LE Cellulitis ?CKD - continue current antibiotics - Vancomycin trough 16.9 (therapeutic) - continue current dose - repeat cbc, bmp, esr in a.m. - follow sensitivities of wound culture isolates - continue wound care - monitor renal function
[2017-07-09] MEDS: VANCOMYCIN 1,250 MG in DEXTROSE 5%-WATER - 250 ML IVPB SCH (15:01)
[2017-07-09] MEDS: ATORVASTATIN CA 20 MG TABLET (FP) PO SCH (22:08)
[2017-07-10] MEDS: PIPERACILLIN/TAZOB 2.25 GM 50 ML IVPB SCH ×3 (01:57→17:39)
[2017-07-10 07:57] LABS: BASOPHIL 0.6 % (0-2.0); EOSINOPHIL 3.5 % (0-4.5); MCH 29.3 pg (25.7-33.7); MEAN CELL VOLUME 91.4 fl (80-96); MEAN PLT VOLUME 8.9 fl (7.5-11.1); NEUTROPHILS 53.1 % (42.8-82.8); PLATELET COUNT 234 K/MM3 (134-434); RDW 14.3 % (11.9-15.9); WHITE BLOOD COUNT 5.9 K/mm3 (4.0-10.0)
[2017-07-10 08:19] LABS: ANION GAP 6 (8-16); CO2 28 mmol/L (21-32); GLUCOSE,RANDOM 106 mg/dL (74-106)
[2017-07-10] MEDS: COLLAGENASE CLOSTRIDIUM HIST. 30 GRAMS TUBE TP SCH (10:32)
[2017-07-10] MEDS: CLOPIDOGREL BISULFATE 75 MG TABLET (FP) PO SCH (11:12)
[2017-07-10] MEDS: ALLOPURINOL 100 MG TABLET (FP) PO SCH (11:12)
[2017-07-10] MEDS: amLODIPine BESYLATE 5 MG TABLET (FP) PO SCH (11:12)
[2017-07-10] MEDS: HEPARIN NA (PORCINE) 5,000 UNITS/ML 1ML VIAL SQ SCH ×2 (11:12→21:21)
--- NOTE | 2017-07-10 12:53 | PN ---
Progress Note, Physician History of Present Illness: patient stable no new issues - Current Medication List Current Medications: Active Medications Acetaminophen (Tylenol -) 650 mg PO Q6H PRN PRN Reason: FEVER OR PAIN Albuterol/Ipratropium (Duoneb -) 1 amp NEB Q6H PRN PRN Reason: SHORTNESS OF BREATH Allopurinol (Zyloprim -) 100 mg PO DAILY [facility] Last Admin: 07/10/17 11:12 Dose: 100 mg Amlodipine Besylate (Norvasc -) 5 mg PO DAILY [facility] Last Admin: 07/10/17 11:12 Dose: 5 mg Atorvastatin Calcium (Lipitor -) 20 mg PO HS [facility] Last Admin: 07/09/17 22:08 Dose: 20 mg Clopidogrel Bisulfate (Plavix -) 75 mg PO DAILY [facility] Last Admin: 07/10/17 11:12 Dose: 75 mg Collagenase (Santyl -) 1 applic TP DAILY [facility] Last Admin: 07/10/17 10:32 Dose: 1 applic Diphenhydramine HCl (Benadryl -) 25 mg PO HS PRN PRN Reason: INSOMNIA Heparin Sodium (Porcine) (Heparin -) 5,000 unit SQ BID [facility] Last Admin: 07/10/17 11:12 Dose: 5,000 unit Vancomycin HCl 1,250 mg/ (Dextrose) 250 mls @ 150 mls/hr IVPB DAILY@1500 [facility] PRN Reason: Protocol Last Admin: 07/09/17 15:01 Dose: 150 mls/hr Piperacillin/Tazobactam/Dextrose (Zosyn 2.25gm Ivpb (Premix)) 50 mls @ 100 mls/ hr IVPB Q8H-IV [facility] PRN Reason: Protocol Last Admin: 07/10/17 10:32 Dose: 100 mls/hr - Objective Vital Signs: Vital Signs Temperature 98.0 F 07/10/17 10:00 Pulse Rate 77 07/10/17 10:00 Respiratory Rate 20 07/10/17 10:00 Blood Pressure 137/76 07/10/17 10:00 O2 Sat by Pulse Oximetry (%) 98 07/05/17 19:40 Constitutional: Yes: No Distress, Calm Cardiovascular: Yes: Regular Rate and Rhythm Respiratory: Yes: Regular, CTA Bilaterally Gastrointestinal: Yes: Normal Bowel Sounds, Soft Musculoskeletal: Yes: Other Extremities: Yes: Other (contracted) Neurological: Yes: Alert, Oriented Psychiatric: Yes: Alert, Oriented Labs: CBC, BMP 07/10/17 07:20 07/10/17 07:20 Assessment/Plan cellulitits of the rt foot wound infection mrsa wound infection plan continue abx wound cx noted follow the trough discussed with patient in details discussion about amputation done with the patient he is leaning towards it going to discuss with the family
[2017-07-10] MEDS: VANCOMYCIN 1,250 MG in DEXTROSE 5%-WATER - 250 ML IVPB SCH (15:04)
--- NOTE | 2017-07-10 16:19 | PN ---
Progress Note, Physician Chief Complaint: IN BED COMFORTABLE NAD - Current Medication List Current Medications: Active Medications Acetaminophen (Tylenol -) 650 mg PO Q6H PRN PRN Reason: FEVER OR PAIN Albuterol/Ipratropium (Duoneb -) 1 amp NEB Q6H PRN PRN Reason: SHORTNESS OF BREATH Allopurinol (Zyloprim -) 100 mg PO DAILY [facility] Last Admin: 07/10/17 11:12 Dose: 100 mg Amlodipine Besylate (Norvasc -) 5 mg PO DAILY [facility] Last Admin: 07/10/17 11:12 Dose: 5 mg Atorvastatin Calcium (Lipitor -) 20 mg PO HS [facility] Last Admin: 07/09/17 22:08 Dose: 20 mg Clopidogrel Bisulfate (Plavix -) 75 mg PO DAILY [facility] Last Admin: 07/10/17 11:12 Dose: 75 mg Collagenase (Santyl -) 1 applic TP DAILY [facility] Last Admin: 07/10/17 10:32 Dose: 1 applic Diphenhydramine HCl (Benadryl -) 25 mg PO HS PRN PRN Reason: INSOMNIA Heparin Sodium (Porcine) (Heparin -) 5,000 unit SQ BID [facility] Last Admin: 07/10/17 11:12 Dose: 5,000 unit Vancomycin HCl 1,250 mg/ (Dextrose) 250 mls @ 150 mls/hr IVPB DAILY@1500 [facility] PRN Reason: Protocol Last Admin: 07/10/17 15:04 Dose: Not Given Piperacillin/Tazobactam/Dextrose (Zosyn 2.25gm Ivpb (Premix)) 50 mls @ 100 mls/ hr IVPB Q8H-IV [facility] PRN Reason: Protocol Last Admin: 07/10/17 10:32 Dose: 100 mls/hr - Objective Vital Signs: Vital Signs Temperature 97.8 F 07/10/17 15:22 Pulse Rate 73 07/10/17 15:22 Respiratory Rate 20 07/10/17 15:22 Blood Pressure 146/68 07/10/17 15:22 O2 Sat by Pulse Oximetry (%) 98 07/05/17 19:40 Constitutional: Yes: No Distress Eyes: Yes: WNL HENT: Yes: WNL Neck: Yes: WNL Cardiovascular: Yes: WNL Respiratory: Yes: WNL Gastrointestinal: Yes: WNL Genitourinary: Yes: WNL Musculoskeletal: Yes: Muscle Weakness Extremities: Yes: Amputation, Deformity Edema: Yes Integumentary: Yes: Pressure Ulcer Wound/Incision: Yes: Dressing Dry and Intact Neurological: Yes: Pre-Existing Deficit, Unsteady Gait ...Motor Strength: RLE Psychiatric: Yes: WNL Labs: CBC, BMP 07/10/17 07:20 07/10/17 07:20 Problem List - Problems (1) Cellulitis of foot Code(s): L03.119 - CELLULITIS OF UNSPECIFIED PART OF LIMB (2) Cellulitis, leg Code(s): L03.119 - CELLULITIS OF UNSPECIFIED PART OF LIMB (3) HTN (hypertension) Code(s): I10 - ESSENTIAL (PRIMARY) HYPERTENSION Qualifiers: Hypertension type: essential hypertension Qualified Code(s): I10 - Essential (primary) hypertension; I10 - Essential (primary) hypertension; I10 - Essential (primary) hypertension (4) Wound, open, foot Code(s): S91.309A - UNSPECIFIED OPEN WOUND, UNSPECIFIED FOOT, INITIAL ENCOUNTER Assessment/Plan RIGHT LEG BKA SCHEDULED WITH VASC SX IV ABX PAIN CONTROL DVT PROPHYLAXIS
[2017-07-10] MEDS ORDERED: PT OWN MED DRAWER 7, Y5N ONE (17:24)
[2017-07-10] MEDS: ATORVASTATIN CA 20 MG TABLET (FP) PO SCH (21:21)
[2017-07-11] MEDS: PIPERACILLIN/TAZOB 2.25 GM 50 ML IVPB SCH ×3 (01:20→18:10)
--- NOTE | 2017-07-11 09:49 | PN ---
Progress Note, Physician History of Present Illness: patient stable no new issues - Current Medication List Current Medications: Active Medications Acetaminophen (Tylenol -) 650 mg PO Q6H PRN PRN Reason: FEVER OR PAIN Albuterol/Ipratropium (Duoneb -) 1 amp NEB Q6H PRN PRN Reason: SHORTNESS OF BREATH Allopurinol (Zyloprim -) 100 mg PO DAILY [facility] Last Admin: 07/10/17 11:12 Dose: 100 mg Amlodipine Besylate (Norvasc -) 5 mg PO DAILY [facility] Last Admin: 07/10/17 11:12 Dose: 5 mg Atorvastatin Calcium (Lipitor -) 20 mg PO HS [facility] Last Admin: 07/10/17 21:21 Dose: 20 mg Clopidogrel Bisulfate (Plavix -) 75 mg PO DAILY [facility] Last Admin: 07/10/17 11:12 Dose: 75 mg Collagenase (Santyl -) 1 applic TP DAILY [facility] Last Admin: 07/10/17 10:32 Dose: 1 applic Diphenhydramine HCl (Benadryl -) 25 mg PO HS PRN PRN Reason: INSOMNIA Heparin Sodium (Porcine) (Heparin -) 5,000 unit SQ BID [facility] Last Admin: 07/10/17 21:21 Dose: 5,000 unit Vancomycin HCl 1,250 mg/ (Dextrose) 250 mls @ 150 mls/hr IVPB DAILY@1500 [facility] PRN Reason: Protocol Last Admin: 07/10/17 15:04 Dose: Not Given Piperacillin/Tazobactam/Dextrose (Zosyn 2.25gm Ivpb (Premix)) 50 mls @ 100 mls/ hr IVPB Q8H-IV [facility] PRN Reason: Protocol Last Admin: 07/11/17 01:20 Dose: 100 mls/hr - Objective Vital Signs: Vital Signs Temperature 98.6 F 07/10/17 18:10 Pulse Rate 68 07/10/17 18:10 Respiratory Rate 20 07/10/17 20:10 Blood Pressure 138/64 07/10/17 18:10 O2 Sat by Pulse Oximetry (%) 98 07/05/17 19:40 Constitutional: Yes: No Distress, Calm Cardiovascular: Yes: Regular Rate and Rhythm Respiratory: Yes: Regular, CTA Bilaterally Gastrointestinal: Yes: Normal Bowel Sounds, Soft Musculoskeletal: Yes: Other (contracted) Extremities: Yes: Other (contracted) Neurological: Yes: Alert, Oriented Psychiatric: Yes: Alert, Oriented Labs: CBC, BMP 07/10/17 07:20 07/10/17 07:20 Assessment/Plan cellulitits of the rt foot wound infection mrsa wound infection plan continue abx await for the final plan
[2017-07-11] MEDS: HEPARIN NA (PORCINE) 5,000 UNITS/ML 1ML VIAL SQ SCH ×3 (09:59→21:45)
[2017-07-11] MEDS: ALLOPURINOL 100 MG TABLET (FP) PO SCH (09:59)
[2017-07-11] MEDS: amLODIPine BESYLATE 5 MG TABLET (FP) PO SCH (09:59)
[2017-07-11] MEDS: CLOPIDOGREL BISULFATE 75 MG TABLET (FP) PO SCH (10:00)
--- NOTE | 2017-07-11 12:50 | PN ---
Progress Note, Physician Chief Complaint: PATIENT UNSURE IF HE WANTS TO GO THROUGH THE SURGICAL PROCEDURE OF THE BKA - Current Medication List Current Medications: Active Medications Acetaminophen (Tylenol -) 650 mg PO Q6H PRN PRN Reason: FEVER OR PAIN Albuterol/Ipratropium (Duoneb -) 1 amp NEB Q6H PRN PRN Reason: SHORTNESS OF BREATH Allopurinol (Zyloprim -) 100 mg PO DAILY [facility] Last Admin: 07/11/17 09:59 Dose: 100 mg Amlodipine Besylate (Norvasc -) 5 mg PO DAILY [facility] Last Admin: 07/11/17 09:59 Dose: 5 mg Atorvastatin Calcium (Lipitor -) 20 mg PO HS [facility] Last Admin: 07/10/17 21:21 Dose: 20 mg Clopidogrel Bisulfate (Plavix -) 75 mg PO DAILY [facility] Last Admin: 07/11/17 10:00 Dose: Not Given Collagenase (Santyl -) 1 applic TP DAILY [facility] Last Admin: 07/10/17 10:32 Dose: 1 applic Diphenhydramine HCl (Benadryl -) 25 mg PO HS PRN PRN Reason: INSOMNIA Heparin Sodium (Porcine) (Heparin -) 5,000 unit SQ BID [facility] Last Admin: 07/11/17 09:59 Dose: 5,000 unit Vancomycin HCl 1,250 mg/ (Dextrose) 250 mls @ 150 mls/hr IVPB DAILY@1500 [facility] PRN Reason: Protocol Last Admin: 07/10/17 15:04 Dose: Not Given Piperacillin/Tazobactam/Dextrose (Zosyn 2.25gm Ivpb (Premix)) 50 mls @ 100 mls/ hr IVPB Q8H-IV [facility] PRN Reason: Protocol Last Admin: 07/11/17 09:59 Dose: 100 mls/hr - Objective Vital Signs: Vital Signs Temperature 98.0 F 07/11/17 09:59 Pulse Rate 70 07/11/17 09:59 Respiratory Rate 20 07/11/17 09:59 Blood Pressure 135/69 07/11/17 09:59 O2 Sat by Pulse Oximetry (%) 98 07/05/17 19:40 Constitutional: Yes: Mild Distress Eyes: Yes: WNL HENT: Yes: WNL Neck: Yes: WNL Cardiovascular: Yes: WNL Respiratory: Yes: WNL Gastrointestinal: Yes: WNL Genitourinary: Yes: WNL Musculoskeletal: Yes: Muscle Weakness Extremities: Yes: Amputation, Deformity Edema: Yes Peripheral Pulses WNL: Yes Integumentary: Yes: Pressure Ulcer, Venous Stasis Changes Wound/Incision: Yes: Dressing Dry and Intact, Other Neurological: Yes: Pre-Existing Deficit, Unsteady Gait ...Motor Strength: RLE Psychiatric: Yes: Other Labs: CBC, BMP 07/10/17 07:20 07/10/17 07:20 Problem List - Problems (1) Cellulitis of foot Code(s): L03.119 - CELLULITIS OF UNSPECIFIED PART OF LIMB (2) Cellulitis, leg Code(s): L03.119 - CELLULITIS OF UNSPECIFIED PART OF LIMB (3) HTN (hypertension) Code(s): I10 - ESSENTIAL (PRIMARY) HYPERTENSION Qualifiers: Hypertension type: essential hypertension Qualified Code(s): I10 - Essential (primary) hypertension; I10 - Essential (primary) hypertension; I10 - Essential (primary) hypertension (4) Wound, open, foot Code(s): S91.309A - UNSPECIFIED OPEN WOUND, UNSPECIFIED FOOT, INITIAL ENCOUNTER Assessment/Plan PSYCHIATRY EVAL FOR COMPETENCE WILL NEED AMPUTATION RIGHT BKA FOR INFECTED FOOT RECOMMENDED BY VASC SX AND ID CONTINURE IV ABX DVT PROPHYLAXIS HOLD AC/PLAVIX.ASA
[2017-07-11] MEDS: COLLAGENASE CLOSTRIDIUM HIST. 30 GRAMS TUBE TP SCH (15:13)
[2017-07-11] MEDS: VANCOMYCIN 1,250 MG in DEXTROSE 5%-WATER - 250 ML IVPB SCH (15:15)
--- NOTE | 2017-07-11 17:25 | CONSULT ---
Consult Consult Specialty:: Nephrology Reason for Consultation:: elevated creatinine - History of Present Illness Chief Complaint: sent in for right foot drainage History of Present Illness: Pt is a 72 year old male with pmhx of HTN and DM who was sent in for evaluate of right foot drainage. He is a poor historian and not able to give much history. He was found to have elevated creatinine and I was called to evaluate him. He denies dysuria or shortness of breath. He denies nsaid use although [facility] 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 Medical History Cardio/Vascular: Yes: HTN, Hyperlipdemia Pulmonary: Yes: COPD Endocrine: Yes: Diabetes Mellitus - Alcohol/Substance Use Hx Alcohol Use: No - Smoking History Smoking history: Former smoker Have you smoked in the past 12 months: No Home Medications - Allergies Allergies/Adverse Reactions: Allergies Allergy/AdvReac Type Severity Reaction Status Date / Time watermelon Allergy Unknown Verified 07/05/17 15:24 - Home Medications Home Medications: Ambulatory Orders Albuterol Sulfate 0.5% [Ventolin 0.5% Nebulizing Soln. -] 1 amp IH PRN 07/05/17 Allopurinol [Zyloprim -] 100 mg PO DAILY 07/05/17 Amlodipine Besylate 5 mg PO DAILY 07/05/17 Atorvastatin Ca [Lipitor] 20 mg PO HS 07/05/17 Clopidogrel Bisulfate [Plavix -] 75 mg PO DAILY 07/05/17 Diphenhydramine [Benadryl Capsule -] 25 mg PO HS 07/05/17 Family Disease History - Family Disease History Family History: Unable to Obtain Review of Systems - Review of Systems Constitutional: reports: No Symptoms. denies: Chills, Fever Eyes: reports: No Symptoms HENT: reports: No Symptoms Neck: reports: No Symptoms Cardiovascular: reports: No Symptoms Respiratory: reports: No Symptoms Gastrointestinal: reports: No Symptoms Genitourinary: reports: No Symptoms Musculoskeletal: reports: Extremity Pain Integumentary: reports: Erythema Neurological: reports: No Symptoms Endocrine: reports: No Symptoms Hematology/Lymphatic: reports: No Symptoms Physical Exam Vital Signs: Vital Signs Temperature 97.9 F 07/11/17 15:30 Pulse Rate 67 07/11/17 15:30 Respiratory Rate 20 07/11/17 15:30 Blood Pressure 168/63 07/11/17 15:30 O2 Sat by Pulse Oximetry (%) 98 07/05/17 19:40 Constitutional: Yes: Calm Eyes: Yes: Conjunctiva Clear HENT: Yes: Atraumatic Neck: Yes: Supple Cardiovascular: Yes: S1, S2 Respiratory: Yes: CTA Bilaterally Gastrointestinal: Yes: Soft Edema: No Wound/Incision: Yes: Dressing Dry and Intact Neurological: Yes: Oriented Labs: CBC, BMP 07/10/17 07:20 07/10/17 07:20 Laboratory Tests 07/05/17 07/06/17 07/06/17 17:50 07:50 07:50 WBC Hgb 11.7 Sodium Potassium Chloride Carbon Dioxide Anion Gap BUN 27 H Creatinine 1.7 H 1.7 H Vancomycin Pre-Dose 07/09/17 07/10/17 07/10/17 13:49 07:20 07:20 WBC 5.9 Hgb 12.1 Sodium 140 Potassium 4.2 Chloride 106 Carbon Dioxide 28 Anion Gap 6 L BUN 29 H Creatinine 2.0 H Vancomycin Pre-Dose 16.921 H* Problem List - Problems (1) Cellulitis of foot Code(s): L03.119 - CELLULITIS OF UNSPECIFIED PART OF LIMB (2) HTN (hypertension) Code(s): I10 - ESSENTIAL (PRIMARY) HYPERTENSION Qualifiers: Hypertension type: essential hypertension Qualified Code(s): I10 - Essential (primary) hypertension; I10 - Essential (primary) hypertension; I10 - Essential (primary) hypertension (3) Wound, open, foot Code(s): S91.309A - UNSPECIFIED OPEN WOUND, UNSPECIFIED FOOT, INITIAL ENCOUNTER (4) CKD (chronic kidney disease) Code(s): N18.9 - CHRONIC KIDNEY DISEASE, UNSPECIFIED Assessment/Plan Current Medications Generic Name Dose Route Start Last Admin Trade Name Freq PRN Reason Stop Dose Admin Acetaminophen 650 mg 07/05/17 20:06 Tylenol - PO Q6H PRN FEVER OR PAIN Albuterol/Ipratropium 1 amp 07/05/17 20:06 Duoneb - NEB Q6H PRN SHORTNESS OF BREATH Allopurinol 100 mg 07/06/17 10:00 07/11/17 09:59 Zyloprim - PO 100 mg DAILY [facility] Administration Amlodipine Besylate 5 mg 07/06/17 10:00 07/11/17 09:59 Norvasc - PO 5 mg DAILY [facility] Administration Atorvastatin Calcium 20 mg 07/05/17 22:00 07/10/17 21:21 Lipitor - PO 20 mg HS [facility] Administration Clopidogrel Bisulfate 75 mg 07/06/17 10:00 07/11/17 10:00 Plavix - PO Not Given DAILY [facility] Collagenase 1 applic 07/06/17 18:30 07/11/17 15:13 Santyl - TP 1 applic DAILY [facility] Administration Diphenhydramine HCl 25 mg 07/05/17 20:06 Benadryl - PO HS PRN INSOMNIA Heparin Sodium (Porcine) 5,000 unit 07/05/17 22:00 07/11/17 09:59 Heparin - SQ 5,000 unit BID [facility] Administration Vancomycin HCl 1,250 mg/ 250 mls @ 150 mls/hr 07/06/17 15:00 07/11/17 15:15 Dextrose IVPB 150 mls/hr DAILY@1500 [facility] Administration Protocol Piperacillin/Tazobactam/Dextrose 50 mls @ 100 mls/hr 07/06/17 15:15 07/11/17 09 :59 Zosyn 2.25gm Ivpb (Premix) IVPB 100 mls/hr Q8H-IV [facility] Administration Protocol Impression 1. CKD - unclear what pts baseline data integrity consultant is 2. cellulitis 3. DM 4. hyperlipidemia 5. HTN 6. gout Plan - check ua - check renal ultrasound - send urine lytes and data integrity consultant - will need to obtain outpt records to check baseline data integrity consultant - will make more recs after reviewing urine Dr Henriquez
[2017-07-11 19:16] LABS: URINE APPEARANCE SLCLOUDY; URINE BILIRUBIN NEGATIVE (NEGATIVE); URINE BLOOD NEGATIVE (NEGATIVE); URINE COLOR LTYELLOW; URINE GLUCOSE (UA) 1+ (NEGATIVE); URINE KETONE NEGATIVE (NEGATIVE); URINE NITRITE NEGATIVE (NEGATIVE); URINE UROBILINOGEN NEGATIVE mg/dL (0.2-1.0)
[2017-07-11 19:20] LABS: URINE PROTEIN 3+ (NEGATIVE)
[2017-07-11 20:00] LABS: URINE BACTERIA RARE /hpf (NONE SEEN); URINE MUCUS RARE; URINE RBC 3 /hpf (0-3); URINE WBC 3 /hpf (3-5); YEAST RARE
[2017-07-11 20:35] LABS: URINE LEUK ESTERASE Negative (NEGATIVE)
[2017-07-11] MEDS: ATORVASTATIN CA 20 MG TABLET (FP) PO SCH ×2 (21:42→21:45)
[2017-07-12] MEDS: PIPERACILLIN/TAZOB 2.25 GM 50 ML IVPB SCH ×3 (02:30→17:39)
[2017-07-12 09:16] LABS: ANION GAP 6 (8-16); CALCIUM 8.1 mg/dL (8.5-10.1); CO2 27 mmol/L (21-32); GLUCOSE,RANDOM 104 mg/dL (74-106)
[2017-07-12 09:19] LABS: CREATININE 1.8 mg/dL (0.7-1.3)
[2017-07-12] MEDS ORDERED: PICC LINE 8 ML FLUSH PROTOCOL IVPUSH PRN (11:21)
--- NOTE | 2017-07-12 11:21 | PN ---
Progress Note, Physician Chief Complaint: PATIENT IS REFUSING MEDICATIONS AND TREATMENT OF AMPUTATION TO RIGHT LEG FOR CHRONIC PAD/ULCERS/INFECTIONS. SEEN BY PSYCHIATRY AND PATIENT IS COMPETENT TO MAKE DECISIONS - Current Medication List Current Medications: Active Medications Acetaminophen (Tylenol -) 650 mg PO Q6H PRN PRN Reason: FEVER OR PAIN Albuterol/Ipratropium (Duoneb -) 1 amp NEB Q6H PRN PRN Reason: SHORTNESS OF BREATH Allopurinol (Zyloprim -) 100 mg PO DAILY [facility] Last Admin: 07/11/17 09:59 Dose: 100 mg Amlodipine Besylate (Norvasc -) 5 mg PO DAILY [facility] Last Admin: 07/11/17 09:59 Dose: 5 mg Atorvastatin Calcium (Lipitor -) 20 mg PO HS [facility] Last Admin: 07/11/17 21:45 Dose: Not Given Clopidogrel Bisulfate (Plavix -) 75 mg PO DAILY [facility] Last Admin: 07/11/17 10:00 Dose: Not Given Collagenase (Santyl -) 1 applic TP DAILY [facility] Last Admin: 07/11/17 15:13 Dose: 1 applic Diphenhydramine HCl (Benadryl -) 25 mg PO HS PRN PRN Reason: INSOMNIA Heparin Sodium (Porcine) (Heparin -) 5,000 unit SQ BID [facility] Last Admin: 07/11/17 21:45 Dose: Not Given Vancomycin HCl 1,250 mg/ (Dextrose) 250 mls @ 150 mls/hr IVPB DAILY@1500 [facility] PRN Reason: Protocol Last Admin: 07/11/17 15:15 Dose: 150 mls/hr Piperacillin/Tazobactam/Dextrose (Zosyn 2.25gm Ivpb (Premix)) 50 mls @ 100 mls/ hr IVPB Q8H-IV [facility] PRN Reason: Protocol Last Admin: 07/12/17 02:30 Dose: 100 mls/hr - Objective Vital Signs: Vital Signs Temperature 98.0 F 07/12/17 09:00 Pulse Rate 90 07/12/17 09:00 Respiratory Rate 20 07/12/17 09:00 Blood Pressure 146/83 07/12/17 09:00 O2 Sat by Pulse Oximetry (%) 98 07/05/17 19:40 Constitutional: Yes: Mild Distress Eyes: Yes: WNL HENT: Yes: WNL Neck: Yes: WNL Cardiovascular: Yes: WNL Respiratory: Yes: WNL Gastrointestinal: Yes: WNL Extremities: Yes: Deformity, Erythema (RIGHT LEG ULCERS/INFECTION WITH MAGGETTES.) Edema: No Integumentary: Yes: Pressure Ulcer, Venous Stasis Changes Wound/Incision: Yes: Dressing Dry and Intact, Excoriated, Unapproximated Neurological: Yes: Pre-Existing Deficit, Unsteady Gait, Weakness ...Motor Strength: RLE Psychiatric: Yes: WNL Labs: CBC, BMP 07/10/17 07:20 07/12/17 08:00 Problem List - Problems (1) Cellulitis of foot Code(s): L03.119 - CELLULITIS OF UNSPECIFIED PART OF LIMB (2) Cellulitis, leg Code(s): L03.119 - CELLULITIS OF UNSPECIFIED PART OF LIMB (3) HTN (hypertension) Code(s): I10 - ESSENTIAL (PRIMARY) HYPERTENSION Qualifiers: Hypertension type: essential hypertension Qualified Code(s): I10 - Essential (primary) hypertension; I10 - Essential (primary) hypertension; I10 - Essential (primary) hypertension (4) Wound, open, foot Code(s): S91.309A - UNSPECIFIED OPEN WOUND, UNSPECIFIED FOOT, INITIAL ENCOUNTER Assessment/Plan REFUSED AMPUTATION WOULD LIKE IV ABX AND TRY TO SALVAGE LEG WITH WOUND CARE AND MEDICATIONS AT [facility] PATIENT WAS SEEN BY PSYCHIATRY AND HS THE ABILTY TO MAKE HIS OPN DECISIONS. 14 DAYS OF ZOSYN AND VANCO IV PICC LINE INSERTION TODAY
--- NOTE | 2017-07-12 11:23 | CON.PSY ---
Psychiatry Consult Chief Complaint: Patient seen for Psych eval to determine to make decisions regarding Amputation. patient has a long history of Psychitric Illness. Resident of [facility]. Symptoms: reports: Disorganized/Disruptive Thoughts - Previous Psychiatric Treatment Outpatient: Less than 6 mos ago Inpatient: One prior admission - Reason for Previous Treatment Reason for Previous Treatment: Psychotic Episode - Current Medications Current Medications: Active Medications Acetaminophen (Tylenol -) 650 mg PO Q6H PRN PRN Reason: FEVER OR PAIN Albuterol/Ipratropium (Duoneb -) 1 amp NEB Q6H PRN PRN Reason: SHORTNESS OF BREATH Allopurinol (Zyloprim -) 100 mg PO DAILY [facility] Last Admin: 07/11/17 09:59 Dose: 100 mg Amlodipine Besylate (Norvasc -) 5 mg PO DAILY [facility] Last Admin: 07/11/17 09:59 Dose: 5 mg Atorvastatin Calcium (Lipitor -) 20 mg PO HS [facility] Last Admin: 07/11/17 21:45 Dose: Not Given Clopidogrel Bisulfate (Plavix -) 75 mg PO DAILY [facility] Last Admin: 07/11/17 10:00 Dose: Not Given Collagenase (Santyl -) 1 applic TP DAILY [facility] Last Admin: 07/11/17 15:13 Dose: 1 applic Diphenhydramine HCl (Benadryl -) 25 mg PO HS PRN PRN Reason: INSOMNIA Heparin Sodium (Porcine) (Heparin -) 5,000 unit SQ BID [facility] Last Admin: 07/11/17 21:45 Dose: Not Given Vancomycin HCl 1,250 mg/ (Dextrose) 250 mls @ 150 mls/hr IVPB DAILY@1500 [facility] PRN Reason: Protocol Last Admin: 07/11/17 15:15 Dose: 150 mls/hr Piperacillin/Tazobactam/Dextrose (Zosyn 2.25gm Ivpb (Premix)) 50 mls @ 100 mls/ hr IVPB Q8H-IV [facility] PRN Reason: Protocol Last Admin: 07/12/17 02:30 Dose: 100 mls/hr - Allergies Allergies: Allergies Allergy/AdvReac Type Severity Reaction Status Date / Time watermelon Allergy Unknown Verified 07/05/17 15:24 - Current Living Status Usual Living Arrangement: Fpc - Current Mental Status Evaluation Appearance: Disheveled Attitude: Guarded - Affect Affect: Constrictive Appropriateness: Appropriate to Content - Mood Mood: Euthymic - Speech/Language Expressive: Delayed - Psychomotor Activity Psychomotor Activity: Slowed - Thought Process Thought Process: Circumstantial - Thought Content Hallucinations: Absent Delusions: Absent - Self Perception Self Perception: No Impairment - Cognition Attention: Alert Orientation: Time Memory, Immediate Recall: Intact Memory, Short Term: 2/3 Memory, Remote with Promptin/3 - Concentration Serial Sevens Intact: No Simple Calculations Intact: No - Abstraction Proverb Interpretation: Impaired Judgement: Minimally Impaired - Insight Insight: Intact (understands he needs treatment but does not want his leg cut off.) - Impulse Control Impulse Control: Minimally Impaired - Suicidal Ideation Suicidal Ideation: No - Homicidal Ideation Homicidal Ideation: No Assessment/Plan 1) patient has the functional capacity to make decisions at this time. 2) Continue with [facility] psych meds.
--- NOTE | 2017-07-12 11:27 | DS ---
Physical Examination Vital Signs: Vital Signs Temperature 98.0 F 07/12/17 09:00 Pulse Rate 90 07/12/17 09:00 Respiratory Rate 20 07/12/17 09:00 Blood Pressure 146/83 07/12/17 09:00 O2 Sat by Pulse Oximetry (%) 98 07/05/17 19:40 Findings/Remarks: SEE PROGRESS NOTE TODAY Constitutional: Yes: Mild Distress Labs: CBC, BMP 07/10/17 07:20 07/12/17 08:00 Discharge Summary Reason For Visit: CELLULITIS OF LOWER EXTREMITY/CELLULITIS OF FOOT Current Active Problems CKD (chronic kidney disease) (Acute) Cellulitis of foot (Acute) Cellulitis, leg (Acute) HTN (hypertension) (Acute) Wound, open, foot (Acute) Procedures: Principal: XRAYS Other Procedures: IV ABX/CULTURES Hospital Course: IV ABX , WOUND CARE, REFUSED AMPUTATION RECOMMENDED BY VASCULAR SURGERY AND ID. PATIENT RATHER HAVE PICC LINE WITH IV ABX FOR 2 WEEKS AND REVALUATE BY SURGERY AND ID Condition: Guarded - Instructions Diet, Activity, Other Instructions: ADA/LOW SODIUM VASC SURGERY DR JUDD MARTEL ID FOLLOW UP 2 WEEKS IV ZOSYN/VANCO DAILY WOUND CARE Disposition: LONGTERM FACILITY - Home Medications Comprehensive Discharge Medication List: Ambulatory Orders Albuterol Sulfate 0.5% [Ventolin 0.5% Nebulizing Soln. -] 1 amp IH PRN 07/05/17 Allopurinol [Zyloprim -] 100 mg PO DAILY 07/05/17 Amlodipine Besylate 5 mg PO DAILY 07/05/17 Atorvastatin Ca [Lipitor] 20 mg PO HS 07/05/17 Clopidogrel Bisulfate [Plavix -] 75 mg PO DAILY 07/05/17 Diphenhydramine [Benadryl Capsule -] 25 mg PO HS 07/05/17
[2017-07-12] MEDS: CLOPIDOGREL BISULFATE 75 MG TABLET (FP) PO SCH (11:45)
[2017-07-12] MEDS: ALLOPURINOL 100 MG TABLET (FP) PO SCH (11:45)
[2017-07-12] MEDS: amLODIPine BESYLATE 5 MG TABLET (FP) PO SCH (11:45)
[2017-07-12] MEDS: HEPARIN NA (PORCINE) 5,000 UNITS/ML 1ML VIAL SQ SCH (11:45)
[2017-07-12] MEDS: COLLAGENASE CLOSTRIDIUM HIST. 30 GRAMS TUBE TP SCH (11:46)
--- NOTE | 2017-07-12 12:19 | PN ---
Progress Note, Physician History of Present Illness: Pt seen and examined at bedside. He refused ultrasound. - Current Medication List Current Medications: Active Medications Acetaminophen (Tylenol -) 650 mg PO Q6H PRN PRN Reason: FEVER OR PAIN Albuterol/Ipratropium (Duoneb -) 1 amp NEB Q6H PRN PRN Reason: SHORTNESS OF BREATH Allopurinol (Zyloprim -) 100 mg PO DAILY [facility] Last Admin: 07/12/17 11:45 Dose: 100 mg Amlodipine Besylate (Norvasc -) 5 mg PO DAILY [facility] Last Admin: 07/12/17 11:45 Dose: 5 mg Atorvastatin Calcium (Lipitor -) 20 mg PO HS [facility] Last Admin: 07/11/17 21:45 Dose: Not Given Clopidogrel Bisulfate (Plavix -) 75 mg PO DAILY [facility] Last Admin: 07/12/17 11:45 Dose: 75 mg Collagenase (Santyl -) 1 applic TP DAILY [facility] Last Admin: 07/12/17 11:46 Dose: 1 applic Diphenhydramine HCl (Benadryl -) 25 mg PO HS PRN PRN Reason: INSOMNIA Heparin Sodium (Porcine) (Heparin -) 5,000 unit SQ BID [facility] Last Admin: 07/12/17 11:45 Dose: 5,000 unit IV Flush (Picc Line Flush) 8 ml IVPUSH PRN PRN PRN Reason: Protocol Vancomycin HCl 1,250 mg/ (Dextrose) 250 mls @ 150 mls/hr IVPB DAILY@1500 [facility] PRN Reason: Protocol Last Admin: 07/11/17 15:15 Dose: 150 mls/hr Piperacillin/Tazobactam/Dextrose (Zosyn 2.25gm Ivpb (Premix)) 50 mls @ 100 mls/ hr IVPB Q8H-IV [facility] PRN Reason: Protocol Last Admin: 07/12/17 11:44 Dose: 100 mls/hr - Objective Vital Signs: Vital Signs Temperature 98.0 F 07/12/17 09:00 Pulse Rate 90 07/12/17 09:00 Respiratory Rate 20 07/12/17 09:00 Blood Pressure 146/83 07/12/17 09:00 O2 Sat by Pulse Oximetry (%) 98 07/05/17 19:40 Constitutional: Yes: Calm Eyes: Yes: Conjunctiva Clear HENT: Yes: Atraumatic Cardiovascular: Yes: S1, S2 Respiratory: Yes: CTA Bilaterally Gastrointestinal: Yes: Soft Genitourinary: Yes: WNL Musculoskeletal: Yes: WNL Edema: Yes Edema: LLE: Trace, RLE: Trace Wound/Incision: Yes: Dressing Dry and Intact Neurological: Yes: Oriented Labs: CBC, BMP 07/10/17 07:20 07/12/17 08:00 Problem List - Problems (1) Cellulitis of foot Code(s): L03.119 - CELLULITIS OF UNSPECIFIED PART OF LIMB (2) HTN (hypertension) Code(s): I10 - ESSENTIAL (PRIMARY) HYPERTENSION Qualifiers: Hypertension type: essential hypertension Qualified Code(s): I10 - Essential (primary) hypertension; I10 - Essential (primary) hypertension; I10 - Essential (primary) hypertension (3) Wound, open, foot Code(s): S91.309A - UNSPECIFIED OPEN WOUND, UNSPECIFIED FOOT, INITIAL ENCOUNTER (4) CKD (chronic kidney disease) Code(s): N18.9 - CHRONIC KIDNEY DISEASE, UNSPECIFIED Assessment/Plan Current Medications Generic Name Dose Route Start Last Admin Trade Name Freq PRN Reason Stop Dose Admin Acetaminophen 650 mg 07/05/17 20:06 Tylenol - PO Q6H PRN FEVER OR PAIN Albuterol/Ipratropium 1 amp 07/05/17 20:06 Duoneb - NEB Q6H PRN SHORTNESS OF BREATH Allopurinol 100 mg 07/06/17 10:00 07/12/17 11:45 Zyloprim - PO 100 mg DAILY [facility] Administration Amlodipine Besylate 5 mg 07/06/17 10:00 07/12/17 11:45 Norvasc - PO 5 mg DAILY [facility] Administration Atorvastatin Calcium 20 mg 07/05/17 22:00 07/11/17 21:45 Lipitor - PO Not Given HS [facility] Clopidogrel Bisulfate 75 mg 07/06/17 10:00 07/12/17 11:45 Plavix - PO 75 mg DAILY [facility] Administration Collagenase 1 applic 07/06/17 18:30 07/12/17 11:46 Santyl - TP 1 applic DAILY [facility] Administration Diphenhydramine HCl 25 mg 07/05/17 20:06 Benadryl - PO HS PRN INSOMNIA Heparin Sodium (Porcine) 5,000 unit 07/05/17 22:00 07/12/17 11:45 Heparin - SQ 5,000 unit BID [facility] Administration IV Flush 8 ml 07/12/17 11:21 Picc Line Flush IVPUSH PRN PRN Protocol Vancomycin HCl 1,250 mg/ 250 mls @ 150 mls/hr 07/06/17 15:00 07/11/17 15:15 Dextrose IVPB 150 mls/hr DAILY@1500 [facility] Administration Protocol Piperacillin/Tazobactam/Dextrose 50 mls @ 100 mls/hr 07/06/17 15:15 07/12/17 11 :44 Zosyn 2.25gm Ivpb (Premix) IVPB 100 mls/hr Q8H-IV [facility] Administration Protocol Laboratory Tests 07/11/17 18:30 Urine Protein 3+ H Impression 1. 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 cellulitis 3. DM 4. hyperlipidemia 5. HTN 6. gout 7. proteinuria Plan - pt is refusing workup - he refused ultrasound - will need proteinuria workup if he agrees - pt evaluated by psych and found to have capacity Dr Henriquez
--- NOTE | 2017-07-12 13:47 | PN ---
Progress Note, Physician History of Present Illness: patient stable no new issues patient has decided that he does not want amputation plan is for iv abx with picc line - Current Medication List Current Medications: Active Medications Acetaminophen (Tylenol -) 650 mg PO Q6H PRN PRN Reason: FEVER OR PAIN Albuterol/Ipratropium (Duoneb -) 1 amp NEB Q6H PRN PRN Reason: SHORTNESS OF BREATH Allopurinol (Zyloprim -) 100 mg PO DAILY [facility] Last Admin: 07/12/17 11:45 Dose: 100 mg Amlodipine Besylate (Norvasc -) 5 mg PO DAILY [facility] Last Admin: 07/12/17 11:45 Dose: 5 mg Atorvastatin Calcium (Lipitor -) 20 mg PO HS [facility] Last Admin: 07/11/17 21:45 Dose: Not Given Clopidogrel Bisulfate (Plavix -) 75 mg PO DAILY [facility] Last Admin: 07/12/17 11:45 Dose: 75 mg Collagenase (Santyl -) 1 applic TP DAILY [facility] Last Admin: 07/12/17 11:46 Dose: 1 applic Diphenhydramine HCl (Benadryl -) 25 mg PO HS PRN PRN Reason: INSOMNIA Heparin Sodium (Porcine) (Heparin -) 5,000 unit SQ BID [facility] Last Admin: 07/12/17 11:45 Dose: 5,000 unit IV Flush (Picc Line Flush) 8 ml IVPUSH PRN PRN PRN Reason: Protocol Vancomycin HCl 1,250 mg/ (Dextrose) 250 mls @ 150 mls/hr IVPB DAILY@1500 [facility] PRN Reason: Protocol Last Admin: 07/11/17 15:15 Dose: 150 mls/hr Piperacillin/Tazobactam/Dextrose (Zosyn 2.25gm Ivpb (Premix)) 50 mls @ 100 mls/ hr IVPB Q8H-IV [facility] PRN Reason: Protocol Last Admin: 07/12/17 11:44 Dose: 100 mls/hr - Objective Vital Signs: Vital Signs Temperature 98.0 F 07/12/17 09:00 Pulse Rate 90 07/12/17 09:00 Respiratory Rate 20 07/12/17 09:00 Blood Pressure 146/83 07/12/17 09:00 O2 Sat by Pulse Oximetry (%) 98 07/05/17 19:40 Constitutional: Yes: No Distress, Calm Cardiovascular: Yes: Regular Rate and Rhythm Respiratory: Yes: Regular, CTA Bilaterally Gastrointestinal: Yes: Normal Bowel Sounds, Soft Musculoskeletal: Yes: Other Extremities: Yes: Other (contracted) Neurological: Yes: Alert, Oriented Psychiatric: Yes: Alert, Oriented Labs: CBC, BMP 07/10/17 07:20 07/12/17 08:00 Assessment/Plan cellulitits of the rt foot wound infection mrsa wound infection plan continue abx picc line abx as planned will need for 2 weeks
[2017-07-12 14:44] VITALS: BP 159/78; PULSE 78; TEMP 97.6
[2017-07-12] MEDS: VANCOMYCIN 1,250 MG in DEXTROSE 5%-WATER - 250 ML IVPB SCH (16:24)
== END 2017-07-12 18:56 | DRG 638 ==
LOC: JER 15:08 → JERBED 16:37 → J6S 20:32
PROVIDERS: ADMIT Family Medicine; ATTEND Family Medicine
PROC: 02HV33Z Insertion of Infusion Device into Superior Vena Cava, Percutaneous Approach (ICD-10-PCS; principal; 2017-07-12)
DX: E11.621 Type 2 diabetes mellitus with foot ulcer (principal); L03.115 Cellulitis of right lower limb; E11.610 Type 2 diabetes mellitus with diabetic neuropathic arthropathy; I10 Essential (primary) hypertension; E78.5 Hyperlipidemia, unspecified; J44.9 Chronic obstructive pulmonary disease, unspecified; S91.301A Unspecified open wound, right foot, initial encounter; X58.XXXA Exposure to other specified factors, initial encounter; M10.9 Gout, unspecified; I12.9 Hypertensive chronic kidney disease with stage 1 through stage 4 chronic kidney disease, or unspecified chronic kidney disease; E11.22 Type 2 diabetes mellitus with diabetic chronic kidney disease; N18.9 Chronic kidney disease, unspecified; Z87.891 Personal history of nicotine dependence; Z86.73 Personal history of transient ischemic attack (TIA), and cerebral infarction without residual deficits
CPT/HCPCS: 36415; 36558; 73630-TC-RT; 76775-TC; 76856-TC; 77001-TC; 80048; 80053; 80061; 81003; 81015; 82436; 82570; 83036; 83721; 84133; 84300; 85025; 85027; 85651; 86140; 93005; 93010; 99283-25; C1751; G0480; J1644

== ENCOUNTER 2018-08-30 23:35 | Inpatient (IN) | payer OTHER ==
--- NOTE | 2018-08-31 01:13 | PDOC ---
Attending Attestation - Resident Resident Name: Gualberto Eagle - ED Attending Attestation I have performed the following: I have examined & evaluated the patient, The case was reviewed & discussed with the resident, I agree w/resident's findings & plan, Exceptions are as noted - HPI HPI: 08/31/18 01:19 The patient is a 73 year old male, with a significant past medical history of HTN, HLD, CVA and CKD, dementia who presents to the ED after abnormal head X- ray today. He notes that he fell yesterday and hit his head. Denies LOC. He does not recall clearly how he fell but reports that he was getting out of his wheelchair when he fell forward and hit his head. A head x-ray was performed on him, which revealed the lesions. The patient was sent to the ED for further evaluation. He denies any change in vision or weakness. Denies headache, N/V. He reports worsening pain to RLE wound. The patient denies chest pain, shortness of breath, or dizziness. Denies fever, chills, diarrhea or constipation. Denies dysuria, frequency, urgency and hematuria. Allergies: Watermelon Past surgical history: None reported Social History: No alcohol, tobacco or drug use reported - Physicial Exam PE: 08/31/18 01:26 GENERAL: Awake, alert, oriented to name, in no acute distress HEAD: No signs of trauma EYES: PERRLA, EOMI, sclera anicteric, conjunctiva clear ENT: Auricles normal inspection, hearing grossly normal, nares patent, oropharynx clear without exudates. Moist mucosa NECK: Normal ROM, supple LUNGS: Breath sounds equal, clear to auscultation bilaterally. No wheezes, and no crackles HEART: Regular rate and rhythm, normal S1 and S2, no murmurs, rubs or gallops ABDOMEN: Soft, nontender, normoactive bowel sounds. No guarding, no rebound. No masses EXTREMITIES: Contracted, no edema. BACK: No midline spinal tenderness in cervical/thoracic/lumbar region NEUROLOGICAL: Normal speech, cranial nerves intact, equal strength and sensation b/l, gait deferred. SKIN: RLE venous stasis ulcer over medial malleolus malodourous with erythema, tenderness, and serous drainage - Medical Decision Making 08/31/18 01:44 73yo M hx dementia, CVA, HTN, HL, lympedema with chronic RLE wound presents to the ED with abnormal head XR, and pain over chronic RLE wound. Per [facility] staff , pt had unwitnessed fall and head XR revealed possible lytic lesions. Pt was sent for further evaluation. Will obtain CTH, CT-c spine. In addition, RLE wound appears infected, will obtain labs, blood cx. Pt has refused amputation of the RLE in the past. Anticipate admission. Heart Score/ECG Review #1 08/31/18 01:42 Twelve-lead EKG was performed and reviewed by me. Sinus rhythm, rate 89.+ Premature atrial complexes. No ST elevations. T wave inversions anteriolaterally. When compared to EKG from 07/05/2017, no significant changes.
[2018-08-31 01:36] LABS: BASO % 1.5 % (0-2.0); EOS % 2.4 % (0-4.5); HEMATOCRIT 30.9 % (35.4-49); HEMOGLOBIN 10.1 GM/dL (11.7-16.9); LYMPH % 15.7 % (8-40); MCHC 32.7 g/dl (32.0-35.9); MEAN CELL VOLUME 88.7 fl (80-96); MEAN PLT VOLUME 9.3 fl (7.5-11.1); MONO % 8.8 % (3.8-10.2); NEUT % 71.6 % (42.8-82.8); PLATELET COUNT 338 K/MM3 (134-434); RBC 3.48 M/mm3 (4.00-5.60); RDW 15.2 % (11.9-15.9); WHITE BLOOD COUNT 7.1 K/mm3 (4.0-10.0)
--- NOTE | 2018-08-31 02:20 | PDOC ---
History of Present Illness - General Chief Complaint: Pain, Acute Stated Complaint: FALL Time Seen by Provider: 08/30/18 23:59 History Source: Patient Exam Limitations: No Limitations - History of Present Illness Initial Comments: 08/31/18 02:14 73 yo male pmh DM, HTN, HLD, CKD, past stroke and chronic right foot wound BIBA from [facility] for an unwitnessed fall that occurred on 08/29/2016. Told by [facility] that the pt had "lytic lesions" on a head x ray done after the fall (No mention of head CT). Pt states he was in his room in a wheelchair when it leaned over causing him to fall forward and hit his head. Denies LOC, BARROS, changes in vision or speech, weakness or numbness on 1 side of his body, N/V/F/C , or having CP/palpitations/SOB prior to the event. Pt denies all other ROS currently. Past History - Past Medical History Allergies/Adverse Reactions: Allergies Allergy/AdvReac Type Severity Reaction Status Date / Time watermelon Allergy Unknown Verified 07/05/17 15:24 Home Medications: Ambulatory Orders Albuterol 2.5/Ipratropium 0.5 [Duoneb -] 1 amp NEB Q6H PRN #0 amp 07/12/17 Allopurinol [Zyloprim -] 100 mg PO DAILY tablet 07/12/17 Amlodipine Besylate [Norvasc -] 5 mg PO DAILY tablet 07/12/17 Atorvastatin Ca [Lipitor] 20 mg PO HS tablet 07/12/17 Clopidogrel Bisulfate [Plavix -] 75 mg PO DAILY tablet 07/12/17 Collagenase Clostridium Hist. [Santyl -] 250 unit TP DAILY 08/31/18 Lisinopril 10 mg PO DAILY 08/31/18 Sodium Hypochlorite [Dakin's Solution 0.25% (Half-Strength)] 473 ml MC DAILY 04/11 CVA: Yes COPD: Yes Dementia: Yes Diabetes: Yes HTN: Yes Hypercholesterolemia: Yes Other medical history: CHRONIC KIDNEY DISEASE. - Suicide/Smoking/Psychosocial Hx Smoking History: Never smoked Have you smoked in the past 12 months: No Information on smoking cessation initiated: No Hx Alcohol Use: No Drug/Substance Use Hx: No Substance Use Type: None Hx Substance Use Treatment: No Review of Systems - Review of Systems Constitutional: No: Chills, Fever HEENTM: No: Eye Pain, Double Vision Respiratory: No: Shortness of Breath Cardiac (ROS): No: Chest Pain ABD/GI: No: Constipated, Diarrhea, Nausea, Vomiting : No: Burning, Dysuria Musculoskeletal: No: Back Pain Neurological: No: Headache, Numbness, Paresthesia, Weakness, Unsteady Gait, Ataxia *Physical Exam - Vital Signs Last Vital Signs Temp Pulse Resp BP Pulse Ox 99.2 F 76 17 146/82 96 08/30/18 23:38 12 23:38 12 23:38 08/30/18 23:38 12 23:38 - Physical Exam General Appearance: Yes: Nourished, Appropriately Dressed. No: Apparent Distress HEENT: positive: EOMI, BRADY Respiratory/Chest: positive: Lungs Clear, Normal Breath Sounds. negative: Respiratory Distress, Accessory Muscle Use, Crackles, Rales, Rhonchi, Wheezing Cardiovascular: positive: Regular Rhythm, Regular Rate, S1, S2, Edema (chronic lymphedema). negative: JVD, Murmur Vascular Pulses: Dorsalis-Pedis (R): 3+, Doralis-Pedis (L): 3+ Gastrointestinal/Abdominal: positive: Normal Bowel Sounds, Flat, Soft. negative : Pulsatile Mass, Distended, Guarding, Rebound, Tenderness Extremity: positive: Normal Capillary Refill Integumentary: positive: Other (right lower ext swollen with radha pus from dorsum of the foot. ) Neurologic: positive: clinical auditor II-XII NML intact, Fully Oriented, Alert, Normal Mood/ Affect, Normal Response, Motor Strength 5/5. negative: Facial Droop, Numbness, Sensory Deficit, Confused Moderate Sedation - Procedure Monitoring Vital Signs: Procedure Monitoring Vital Signs Temperature 99.2 F 08/30/18 23:38 Pulse Rate 76 08/30/18 23:38 Respiratory Rate 17 08/30/18 23:38 Blood Pressure 146/82 08/30/18 23:38 O2 Sat by Pulse Oximetry (%) 96 08/30/18 23:38 ED Treatment Course - LABORATORY CBC & Chemistry Diagram: 08/31/18 01:25 08/31/18 01:25 - ADDITIONAL ORDERS Additional order review: 08/31/18 01:25 RBC 3.48 L MCV 88.7 MCHC 32.7 RDW 15.2 MPV 9.3 Neutrophils % 71.6 D Lymphocytes % 15.7 D Monocytes % 8.8 Eosinophils % 2.4 Basophils % 1.5 - RADIOLOGY Radiology Studies Ordered: Category Date Time Status CERVICAL SPINE CT W/O CONTR [CT] Stat CT Scan 08/31/18 00:[address] WITHOUT CONTRAST [CT] Stat CT Scan 08/31/18 00:32 Taken ANKLE & FOOT-RIGHT* [RAD] Stat Radiology 08/31/18 01:12 Ordered CHEST X-RAY PORTABLE* [RAD] Stat Radiology 08/31/18 00:32 Ordered Medical Decision Making - Medical Decision Making Pt presents with unwitnessed fall without LOC, headache or concerning neurological s/s. Head and C spine CT negative EKG normal sinus rhythm without ST changes Vitals WNL Blood work: no WBC WNL UTI found blood cultures sent 08/31/18 02:18 After removing bandages to the chronic right foot wound, purulent malodorous pus seen. Pt has no complaints currently and neurological/msk work up for trauma from fall negative but due to physical exam findings of wound, pt will be admitted for cellulitis. Started on Vanc and Zosyn. Foot X ray negative for gas or s/s of osteomyelitis. Dr. Cates agrees to heave pt admitted *DC/Admit/Observation/Transfer Diagnosis at time of Disposition: Cellulitis Qualifiers: Site of cellulitis: extremity Site of cellulitis of extremity: lower extremity Laterality: right Qualified Code(s): L03.115 - Cellulitis of right lower limb - Referrals - Patient Instructions - Post Discharge Activity
[2018-08-31 02:37] LABS: ALBUMIN 2.4 g/dl (3.4-5.0); ALK PHOS 111 U/L (45-117); ANION GAP 9 MMOL/L (8-16); BILIRUBIN,TOTAL 0.3 mg/dL (0.2-1); BLOOD UREA NITROGEN 47 mg/dL (7-18); CHLORIDE 109 mmol/L (98-107); CO2 23 mmol/L (21-32); CREATININE 2.8 mg/dL (0.55-1.3); GLUCOSE,RANDOM 108 mg/dL (74-106); POTASSIUM 5.3 mmol/L (3.5-5.1); SGOT/AST 24 U/L (15-37); SGPT/ALT 17 U/L (13-61); SODIUM 140 mmol/L (136-145); TOT PROT 8.3 g/dl (6.4-8.2)
[2018-08-31] MEDS ORDERED: VANCOMYCIN 1,000 MG in DEXTROSE 5%-WATER - 250 ML IVPB ONE (04:15)
[2018-08-31] MEDS ORDERED: PIPERACILLIN/TAZOB 4.5 GM 4.5 GM in DEXTROSE 5%-WATER 100 ML IVPB ONE (04:16)
[2018-08-31] MEDS ORDERED: PIPERACILLIN/TAZOB 4.5 GM 4.5 GM/100 ML BAG IVPB ONE (04:22)
[2018-08-31] MEDS ORDERED: VANCOMYCIN 1 GRAM (PRE-DOCKED) 1,000 MG/250 ML BAG IVPB ONE (04:22)
[2018-08-31 04:32] LABS: URINE APPEARANCE CLOUDY; URINE BILIRUBIN NEGATIVE (<2.0 mg/dL); URINE COLOR YELLOW; URINE GLUCOSE (UA) NEGATIVE (NEGATIVE); URINE KETONE NEGATIVE (NEGATIVE); URINE LEUK ESTERASE 3+ (NEGATIVE); URINE NITRITE NEGATIVE (NEGATIVE); URINE PROTEIN 2+ (NEGATIVE); URINE UROBILINOGEN NEGATIVE mg/dL (0.2-1.0)
[2018-08-31 04:42] LABS: EPI CELLS RARE /HPF (FEW); URINE BACTERIA MANY /hpf (NONE SEEN); URINE MUCUS RARE
[2018-08-31 04:45] LABS: AMORP URATES 4+ /hpf (NONE SEEN)
[2018-08-31] MEDS ORDERED: SODIUM POLYSTYRENE SULFONATE 15 GM/60 ML BOTTLE PO ONE (04:47)
--- NOTE | 2018-08-31 04:55 | HP ---
CHIEF COMPLAINT: Fall, right foot infection PCP: Tricia HISTORY OF PRESENT ILLNESS: 73 yo male with DM, HTN, HLD, CKD, past stroke and chronic right foot wound BIBA from [facility] for an unwitnessed fall that occurred on 08/29/2016. CT of head and C spine was wnl but on physical exam patient was found to have right foot purulent foul smelling discharge. Blood cultures were take, zosyn and vancomycin were ordered. ER course was notable for: (1) head CT (2) vancomycin (3) zosyn Recent Travel:no PAST MEDICAL HISTORY: DM, HTN, HLD, CKD, past stroke and chronic right foot wound PAST SURGICAL HISTORY: none Social History: Smoking: no Alcohol: no Drugs: no Family History: none Allergies watermelon Allergy (Unknown, Verified 07/05/17 15:24) HOME MEDICATIONS: Home Medications Medication Instructions Recorded Albuterol 2.5/Ipratropium 0.5 1 amp NEB Q6H PRN #0 amp 07/12/17 [Duoneb -] Allopurinol [Zyloprim -] 100 mg PO DAILY tablet 07/12/17 Amlodipine Besylate [Norvasc -] 5 mg PO DAILY tablet 07/12/17 Atorvastatin Ca [Lipitor] 20 mg PO HS tablet 07/12/17 Clopidogrel Bisulfate [Plavix -] 75 mg PO DAILY tablet 07/12/17 Collagenase Clostridium Hist. 250 unit TP DAILY 08/31/18 [Santyl -] Lisinopril 10 mg PO DAILY 08/31/18 Sodium Hypochlorite [Dakin's 473 ml MC DAILY 08/31/18 Solution 0.25% (Half-Strength)] REVIEW OF SYSTEMS CONSTITUTIONAL: Absent: fever, chills, diaphoresis, generalized weakness, malaise, loss of appetite, weight change HEENT: Absent: rhinorrhea, nasal congestion, throat pain, throat swelling, difficulty swallowing, mouth swelling, ear pain, eye pain, visual changes CARDIOVASCULAR: Absent: chest pain, syncope, palpitations, irregular heart rate, lightheadedness , peripheral edema RESPIRATORY: Absent: cough, shortness of breath, dyspnea with exertion, orthopnea, wheezing, stridor, hemoptysis GASTROINTESTINAL: Absent: abdominal pain, abdominal distension, nausea, vomiting, diarrhea, constipation, melena, hematochezia GENITOURINARY: Absent: dysuria, frequency, urgency, hesitancy, hematuria, flank pain, genital pain MUSCULOSKELETAL: Absent: joint swelling, back pain, neck pain Present- myalgia, arthralgia, SKIN: Absent: rash, itching, pallor HEMATOLOGIC/IMMUNOLOGIC: Absent: easy bleeding, easy bruising, lymphadenopathy, frequent infections ENDOCRINE: Absent: unexplained weight gain, unexplained weight loss, heat intolerance, cold intolerance NEUROLOGIC: Absent: headache, focal weakness or paresthesias, dizziness, unsteady gait, seizure, mental status changes, bladder or bowel incontinence PSYCHIATRIC: Absent: anxiety, depression, suicidal or homicidal ideation, hallucinations. PHYSICAL EXAMINATION Vital Signs - 24 hr 08/30/18 23:38 Temperature 99.2 F Pulse Rate 76 Respiratory 17 Rate Blood Pressure 146/82 O2 Sat by Pulse 96 Oximetry (%) GENERAL: drowsy HEAD: Normal with no signs of trauma. EYES: Pupils equal, round and reactive to light, extraocular movements intact, sclera anicteric, conjunctiva clear. No lid lag. EARS, NOSE, THROAT: Ears normal, nares patent, oropharynx clear without exudates. Moist mucous membranes. NECK: Normal range of motion, supple without lymphadenopathy, JVD, or masses. LUNGS: Breath sounds equal, clear to auscultation bilaterally. No wheezes, and no crackles. No accessory muscle use. HEART: Regular rate and rhythm, normal S1 and S2 without murmur, rub or gallop. ABDOMEN: Soft, nontender, not distended, normoactive bowel sounds, no guarding, no rebound, no masses. No hepatomegaly or splenomegaly. MUSCULOSKELETAL: Normal range of motion at all joints. No bony deformities or tenderness. No CVA tenderness. UPPER EXTREMITIES: 2+ pulses, warm, well-perfused. No cyanosis. No clubbing. No peripheral edema. LOWER EXTREMITIES: right foot medial ankle ulcer, pus in interdigital space, foul smelling, obvious foot deformity NEUROLOGICAL: Cranial nerves II-XII intact. PSYCHIATRIC: Cooperative. Good eye contact. Appropriate mood and affect. SKIN: Warm, dry, normal turgor, no rashes or lesions noted, normal capillary refill. Laboratory Results - last 24 hr 08/31/18 08/31/18 08/31/18 01:25 01:25 01:25 WBC 7.1 RBC 3.48 L Hgb 10.1 L Hct 30.9 L D MCV 88.7 MCH 29.0 MCHC 32.7 RDW 15.2 Plt Count 338 D MPV 9.3 Absolute Neuts (auto) 5.1 Neutrophils % 71.6 D Lymphocytes % 15.7 D Monocytes % 8.8 Eosinophils % 2.4 Basophils % 1.5 Nucleated RBC % 0 Sodium 140 Potassium 5.3 H Chloride 109 H Carbon Dioxide 23 Anion Gap 9 BUN 47 H Creatinine 2.8 H Creat Clearance w eGFR 22.26 Random Glucose 108 H Lactic Acid 1.1 Calcium 8.0 L Total Bilirubin 0.3 AST 24 ALT 17 Alkaline Phosphatase 111 Creatine Kinase 528 H Troponin I < 0.02 Total Protein 8.3 H Albumin 2.4 L Urine Color Urine Appearance Urine pH Ur Specific [place] Urine Protein Urine Glucose (UA) Urine Ketones Urine Blood Urine Nitrite Urine Bilirubin Urine Urobilinogen Ur Leukocyte Esterase Urine WBC (Auto) Urine RBC (Auto) Ur Epithelial Cells Amorphous Urates Urine Bacteria Urine Mucus 08/31/18 03:10 WBC RBC Hgb Hct MCV MCH MCHC RDW Plt Count MPV Absolute Neuts (auto) Neutrophils % Lymphocytes % Monocytes % Eosinophils % Basophils % Nucleated RBC % Sodium Potassium Chloride Carbon Dioxide Anion Gap BUN Creatinine Creat Clearance w eGFR Random Glucose Lactic Acid Calcium Total Bilirubin AST ALT Alkaline Phosphatase Creatine Kinase Troponin I Total Protein Albumin Urine Color Yellow Urine Appearance Cloudy Urine pH 5.0 Ur Specific [place] 1.015 Urine Protein 2+ H Urine Glucose (UA) Negative Urine Ketones Negative Urine Blood Negative Urine Nitrite Negative Urine Bilirubin Negative Urine Urobilinogen Negative Ur Leukocyte Esterase 3+ H Urine WBC (Auto) 50 Urine RBC (Auto) 4 Ur Epithelial Cells Rare Amorphous Urates 4+ Urine Bacteria Many Urine Mucus Rare CT of head and C spine [facility] readings appreciated, no acute fractures seen in c spine or cranium EKG appreciated ASSESSMENT/PLAN: #Right foot soft tissue infection- Should rule out underlying osteomyelitis. -med/surg -blood cultures sent -wound culture of right foot -ID evaluation -podiatry evaluation -zosyn -vancomycin -f/u reads of xray of right foot -esr -crp -mri of right foot -wound care #S/p fall -head CT and C spine CTs negative for acute fracture as per [facility] read -f/u official radiology read -fall precautions #DIOGENES on CKD -avoid unecessary nephrotoxins -renal u/s -i/o -daily weights #hyperkalemia -ekg changes -kayexalate -repeat k -avoid lisinopril for now as it can worsen hyperkalemia #DM -novolog sliding scale #HTN -controlled -c/w amlodipine -hold off lisinopril for now as it can worsen hyperkalemia DVT ppx - heparin sc Visit type - Emergency Visit Emergency Visit: Yes Care time: The patient presented to the Emergency Department on the above date and was hospitalized for further evaluation of their emergent condition. - New Patient This patient is new to me today: Yes Date on this admission: 08/31/18 - Critical Care Critical Care patient: No
[2018-08-31] MEDS ORDERED: ALBUTEROL SO4 2.5/IPRATROPIUM 0.5 INH SOL 3 ML VIAL.NEB. NEB PRN (05:08)
[2018-08-31] MEDS ORDERED: SODIUM POLYSTYRENE SULFONATE 15 GM/60 ML BOTTLE ONE (07:03)
[2018-08-31] MEDS ORDERED: INSULIN (NOVOLOG) ASPART 100 UNITS/ML 10ML VIAL ONE (07:03)
[2018-08-31] MEDS: INSULIN SLIDING SCALE (NOVOLOG) 1 VIAL SQ SCH ×4 (07:11→22:54)
[2018-08-31] MEDS: SODIUM CHLORIDE 1,000 ML IV SCH (09:15)
[2018-08-31] MEDS ORDERED: LISINOPRIL 10 MG TABLET (FP) PO SCH (10:00)
[2018-08-31] MEDS: HEPARIN NA (PORCINE) 5,000 UNITS/ML 1ML VIAL SQ SCH ×2 (10:34→22:54)
[2018-08-31] MEDS: CLOPIDOGREL BISULFATE 75 MG TABLET (FP) PO SCH (10:34)
[2018-08-31] MEDS: ALLOPURINOL 100 MG TABLET (FP) PO SCH (10:34)
[2018-08-31] MEDS: amLODIPine BESYLATE 5 MG TABLET (FP) PO SCH (10:34)
--- NOTE | 2018-08-31 11:45 | EKG ---
Test Reason : Blood Pressure : / mmHG Vent. Rate : 089 BPM Atrial Rate : 089 BPM P-R Int : 200 ms QRS Dur : 080 ms QT Int : 356 ms P-R-T Axes : 064 031 129 degrees QTc Int : 433 ms SINUS RHYTHM WITH PREMATURE ATRIAL COMPLEXES WITH ABERRANT CONDUCTION MINIMAL VOLTAGE CRITERIA FOR LVH, MAY BE NORMAL VARIANT T WAVE ABNORMALITY, CONSIDER ANTEROLATERAL ISCHEMIA ABNORMAL ECG WHEN COMPARED WITH ECG OF 05-JUL-2017 18:45, ABERRANT CONDUCTION IS NOW PRESENT Confirmed by SHAHAB BISHOP, SCOTT ([id number]) on 08/31/2018 11:44:47 AM Referred By: Confirmed By:SCOTT GUDINO MD
--- NOTE | 2018-08-31 12:23 | CONSULT ---
Consult Consult Specialty:: Podiatry Reason for Consultation:: chronic wounds right ankle - History of Present Illness Chief Complaint: wounds right ankle 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 Medical History Cardio/Vascular: Yes: HTN, Hyperlipdemia Pulmonary: Yes: COPD Endocrine: Yes: Diabetes Mellitus - Alcohol/Substance Use Hx Alcohol Use: No - Smoking History Smoking history: Never smoked Have you smoked in the past 12 months: No - Social History Usual Living Arrangement: Detention Home Medications - Allergies Allergies/Adverse Reactions: Allergies Allergy/AdvReac Type Severity Reaction Status Date / Time watermelon Allergy Unknown Verified 07/05/17 15:24 - Home Medications Home Medications: Ambulatory Orders Albuterol 2.5/Ipratropium 0.5 [Duoneb -] 1 amp NEB Q6H PRN #0 amp 07/12/17 Allopurinol [Zyloprim -] 100 mg PO DAILY tablet 07/12/17 Amlodipine Besylate [Norvasc -] 5 mg PO DAILY tablet 07/12/17 Atorvastatin Ca [Lipitor] 20 mg PO HS tablet 07/12/17 Clopidogrel Bisulfate [Plavix -] 75 mg PO DAILY tablet 07/12/17 Collagenase Clostridium Hist. [Santyl -] 250 unit TP DAILY 08/31/18 Lisinopril 10 mg PO DAILY 08/31/18 Sodium Hypochlorite [Dakin's Solution 0.25% (Half-Strength)] 473 ml MC DAILY 04/11 Physical Exam Vital Signs: Vital Signs Temperature 99.2 F 08/30/18 23:38 Pulse Rate 85 08/31/18 10:35 Respiratory Rate 18 08/31/18 10:35 Blood Pressure 137/54 L 08/31/18 10:35 O2 Sat by Pulse Oximetry (%) 97 08/31/18 10:35 Extremities: Yes: Other (+pvd, +contracted on right side, +grade 2 wounds b/l ankles, -cellulitis, -drainage,) Labs: CBC, BMP 08/31/18 01:25 08/31/18 01:25 Imaging - Results X-ray: Report Reviewed Assessment/Plan chronic ankle wounds contracted pvd vascular consult. Santyl b/l ankle wounds. heel pads b/l. will follow.
--- NOTE | 2018-08-31 12:48 | PN ---
Progress Note, Physician - Current Medication List Current Medications: Active Medications Albuterol/Ipratropium (Duoneb -) 1 amp NEB Q6H PRN PRN Reason: SHORTNESS OF BREATH Allopurinol (Zyloprim -) 100 mg PO DAILY [facility] Last Admin: 08/31/18 10:34 Dose: 100 mg Amlodipine Besylate (Norvasc -) 5 mg PO DAILY [facility] Last Admin: 08/31/18 10:34 Dose: 5 mg Atorvastatin Calcium (Lipitor -) 20 mg PO HS [facility] Clopidogrel Bisulfate (Plavix -) 75 mg PO DAILY [facility] Last Admin: 08/31/18 10:34 Dose: 75 mg Collagenase (Santyl -) 1 applic TP DAILY [facility]; Protocol Heparin Sodium (Porcine) (Heparin -) 5,000 unit SQ BID [facility] Last Admin: 08/31/18 10:34 Dose: Not Given Sodium Chloride (Normal Saline -) 1,000 mls @ 75 mls/hr IV ASDIR [facility] Last Admin: 08/31/18 09:15 Dose: 75 mls/hr Insulin Aspart (Novolog Vial Sliding Scale -) 1 vial SQ ACHS [facility]; Protocol Last Admin: 08/31/18 07:11 Dose: Not Given - Objective Vital Signs: Vital Signs Temperature 99.2 F 08/30/18 23:38 Pulse Rate 85 08/31/18 10:35 Respiratory Rate 18 08/31/18 10:35 Blood Pressure 137/54 L 08/31/18 10:35 O2 Sat by Pulse Oximetry (%) 97 08/31/18 10:35 Cardiovascular: Yes: S1, S2 Respiratory: Yes: Regular, CTA Bilaterally Gastrointestinal: Yes: Normal Bowel Sounds, Soft Edema: Yes Integumentary: Yes: Pressure Ulcer, Venous Stasis Changes Wound/Incision: Yes: Dressing Removed, Excoriated Labs: CBC, BMP 08/31/18 01:25 08/31/18 01:25 Problem List - Problems (1) Venous stasis ulcer of right lower extremity Assessment/Plan: rule out underlying osteomyelitis. -med/surg -blood cultures sent -wound culture of right foot -ID evaluation -podiatry evaluation -zosyn -vancomycin -f/u reads of xray of right foot -esr -crp -mri of right foot -wound care Code(s): I83.019 - VARICOSE VEINS OF RIGHT LOWER EXTREMITY W ULCER OF UNSP SITE ; L97.919 - NON-PRS CHRONIC ULC UNSP PRT OF R LOW LEG W UNSP SEVERITY (2) Cellulitis Code(s): L03.90 - CELLULITIS, UNSPECIFIED Qualifiers: Site of cellulitis: extremity Site of cellulitis of extremity: lower extremity Laterality: right Qualified Code(s): L03.115 - Cellulitis of right lower limb (3) CKD (chronic kidney disease) Assessment/Plan: -avoid unecessary nephrotoxins -renal u/s -i/o -daily weights Code(s): N18.9 - CHRONIC KIDNEY DISEASE, UNSPECIFIED (4) HTN (hypertension) Code(s): I10 - ESSENTIAL (PRIMARY) HYPERTENSION Qualifiers: Hypertension type: essential hypertension Qualified Code(s): I10 - Essential (primary) hypertension (5) Fall Assessment/Plan: -f/u official radiology read -fall precautions Code(s): W19.XXXA - UNSPECIFIED FALL, INITIAL ENCOUNTER (6) Hypokalemia Assessment/Plan: -kayexalate -repeat k -avoid lisinopril for now as it can worsen hyperkalemia Code(s): E87.6 - HYPOKALEMIA (7) Diabetes Assessment/Plan: -bgm endo Code(s): E11.9 - TYPE 2 DIABETES MELLITUS WITHOUT COMPLICATIONS
--- NOTE | 2018-08-31 14:46 | CONSULT ---
- Consultation REQUESTING PROVIDER: CONSULT REQUEST: We have been asked to surgically evaluate this patient for right foot infection. PCP:Filippo Clarke HISTORY OF PRESENT ILLNESS: The patient provides limited response to questions, most information obtained from the chart. He does sates that he is having right foot pain. He presented from the nursing facility after being transferred from the nursing facility for an unwitnessed fall. While in the ER they noted his right foot to have drainage and a foul odor. PMHx: DM, HTN, HLD, CKD, past stroke and chronic right foot wound PSHx: Home Medications Medication Instructions Recorded Albuterol 2.5/Ipratropium 0.5 1 amp NEB Q6H PRN #0 amp 07/12/17 [Duoneb -] Allopurinol [Zyloprim -] 100 mg PO DAILY tablet 07/12/17 Amlodipine Besylate [Norvasc -] 5 mg PO DAILY tablet 07/12/17 Atorvastatin Ca [Lipitor] 20 mg PO HS tablet 07/12/17 Clopidogrel Bisulfate [Plavix -] 75 mg PO DAILY tablet 07/12/17 Collagenase Clostridium Hist. 250 unit TP DAILY 08/31/18 [Santyl -] Lisinopril 10 mg PO DAILY 08/31/18 Sodium Hypochlorite [Dakin's 473 ml MC DAILY 08/31/18 Solution 0.25% (Half-Strength)] Allergies Allergy/AdvReac Type Severity Reaction Status Date / Time watermelon Allergy Unknown Verified 07/05/17 15:24 REVIEW OF SYSTEMS: unable to obtain PHYSICAL EXAM: GENERAL: Awake, alert. HEAD: Normal with no signs of trauma. ABDOMEN: Soft, nontender, not distended. Reducible umbilical hernia. LOWER EXTREMITIES: Left foot warm and without ulcers. +1 DP with doppler, palpable PT. Right foot with lichenified skin to the ankle with ulcer on the medial mallelous aspect/contracted and fibrinous drainage. The foot is warm to touch, without erythema and contracted at the knee and hip. Toes on the right foot are fused. Vital Signs Temperature 99.2 F 08/30/18 23:38 Pulse Rate 85 08/31/18 10:35 Respiratory Rate 18 08/31/18 10:35 Blood Pressure 137/54 L 08/31/18 10:35 O2 Sat by Pulse Oximetry (%) 97 08/31/18 10:35 Lab Results WBC 7.1 K/mm3 (4.0-10.0) 08/31/18 01:25 RBC 3.48 M/mm3 (4.00-5.60) L 08/31/18 01:25 Hgb 10.1 GM/dL (11.7-16.9) L 08/31/18 01:25 Hct 30.9 % (35.4-49) L D 08/31/18 01:25 MCV 88.7 fl (80-96) 08/31/18 01:25 MCHC 32.7 g/dl (32.0-35.9) 08/31/18 01:25 RDW 15.2 % (11.9-15.9) 08/31/18 01:25 Plt Count 338 K/MM3 (134-434) D 08/31/18 01:25 Sodium 140 mmol/L (136-145) 08/31/18 01:25 Potassium 5.3 mmol/L (3.5-5.1) H 08/31/18 01:25 Chloride 109 mmol/L (98-107) H 08/31/18 01:25 Carbon Dioxide 23 mmol/L (21-32) 08/31/18 01:25 Anion Gap 9 MMOL/L (8-16) 08/31/18 01:25 BUN 47 mg/dL (7-18) H 08/31/18 01:25 Creatinine 2.8 mg/dL (0.55-1.3) H 08/31/18 01:25 Random Glucose 108 mg/dL (74-106) H 08/31/18 01:25 Calcium 8.0 mg/dL (8.5-10.1) L 08/31/18 01:25 xray: soft tissue calcificaitons, degenerative joint disease and swelling. No fractures Problem List - Problems (1) Wound, open, foot Assessment/Plan: Pt with chronic right foot infection. Fibrinous drainage and hyerptropic skin changes. No evidence of acute infection. Recommend to continue santyl to open ulcers on right foot. Frequent repositioning, heel protectors and elevate Right left off of bed. D/w Dr. Mcneil Code(s): S91.309A - UNSPECIFIED OPEN WOUND, UNSPECIFIED FOOT, INITIAL ENCOUNTER Qualifiers: Laterality: right
[2018-08-31] MEDS: COLLAGENASE CLOSTRIDIUM HIST. 30 GRAMS TUBE TP SCH (19:34)
[2018-08-31] MEDS ORDERED: PT OWN MED DRAWER 7, Y5N ONE (19:49)
[2018-08-31] MEDS: ATORVASTATIN CA 20 MG TABLET (FP) PO SCH (22:54)
[2018-09-01] MEDS: INSULIN SLIDING SCALE (NOVOLOG) 1 VIAL SQ SCH ×4 (06:23→21:51)
[2018-09-01] MEDS: SODIUM CHLORIDE 1,000 ML IV SCH (06:23)
[2018-09-01 07:42] LABS: BASO % 1.4 % (0-2.0); EOS % 2.5 % (0-4.5); HEMATOCRIT 28.7 % (35.4-49); HEMOGLOBIN 8.9 GM/dL (11.7-16.9); LYMPH % 24.6 % (8-40); MCH 27.7 pg (25.7-33.7); MEAN CELL VOLUME 89.3 fl (80-96); MEAN PLT VOLUME 8.5 fl (7.5-11.1); MONO % 8.8 % (3.8-10.2); NEUT % 62.7 % (42.8-82.8); PLATELET COUNT 284 K/MM3 (134-434); RBC 3.22 M/mm3 (4.00-5.60); RDW 15.3 % (11.9-15.9); WHITE BLOOD COUNT 5.9 K/mm3 (4.0-10.0)
[2018-09-01 08:57] LABS: ALK PHOS 85 U/L (45-117); ANION GAP 9 MMOL/L (8-16); BILIRUBIN,TOTAL 0.5 mg/dL (0.2-1); BLOOD UREA NITROGEN 38 mg/dL (7-18); CALCIUM 7.6 mg/dL (8.5-10.1); CHLORIDE 113 mmol/L (98-107); CO2 22 mmol/L (21-32); CREATININE 2.6 mg/dL (0.55-1.3); GLUCOSE,RANDOM 79 mg/dL (74-106); POTASSIUM 4.3 mmol/L (3.5-5.1); SGOT/AST 16 U/L (15-37); SGPT/ALT 13 U/L (13-61); SODIUM 143 mmol/L (136-145)
[2018-09-01] MEDS: HEPARIN NA (PORCINE) 5,000 UNITS/ML 1ML VIAL SQ SCH ×2 (10:18→21:51)
[2018-09-01] MEDS: CLOPIDOGREL BISULFATE 75 MG TABLET (FP) PO SCH (10:18)
[2018-09-01] MEDS: ALLOPURINOL 100 MG TABLET (FP) PO SCH (10:18)
[2018-09-01] MEDS: amLODIPine BESYLATE 5 MG TABLET (FP) PO SCH (10:18)
--- NOTE | 2018-09-01 13:10 | PN ---
Progress Note, Physician - Current Medication List Current Medications: Active Medications Albuterol/Ipratropium (Duoneb -) 1 amp NEB Q6H PRN PRN Reason: SHORTNESS OF BREATH Allopurinol (Zyloprim -) 100 mg PO DAILY [facility]PL[facility] BY [facility] Last Admin: 09/01/18 10:18 Dose: 100 mg Amlodipine Besylate (Norvasc -) 5 mg PO DAILY [facility]PL[facility] BY [facility] Last Admin: 09/01/18 10:18 Dose: 5 mg Atorvastatin Calcium (Lipitor -) 20 mg PO HS REPLACED BY [facility] Last Admin: 08/31/18 22:54 Dose: 20 mg Clopidogrel Bisulfate (Plavix -) 75 mg PO DAILY [facility]PL[facility]ED BY [facility] Last Admin: 09/01/18 10:18 Dose: 75 mg Collagenase (Santyl -) 1 applic TP DAILY [facility]PLACED BY [facility]; Protocol Last Admin: 08/31/18 19:34 Dose: 1 applic Heparin Sodium (Porcine) (Heparin -) 5,000 unit SQ BID [facility]PLACED BY [facility] Last Admin: 09/01/18 10:18 Dose: 5,000 unit Sodium Chloride (Normal Saline -) 1,000 mls @ 75 mls/hr IV ASDIR REPLACED BY [facility] Last Admin: 09/01/18 06:23 Dose: 75 mls/hr Insulin Aspart (Novolog Vial Sliding Scale -) 1 vial SQ ACHS REPLACED BY [facility]; Protocol Last Admin: 09/01/18 11:49 Dose: Not Given - Objective Vital Signs: Vital Signs Temperature 98.3 F 08/31/18 16:56 Pulse Rate 83 09/01/18 07:06 Respiratory Rate 18 08/31/18 21:00 Blood Pressure 148/71 09/01/18 07:06 O2 Sat by Pulse Oximetry (%) 98 08/31/18 21:00 Cardiovascular: Yes: S1, S2 Respiratory: Yes: Regular, CTA Bilaterally Gastrointestinal: Yes: Normal Bowel Sounds, Soft Labs: CBC, BMP 09/01/18 07:05 09/01/18 07:05 Problem List - Problems (1) Venous stasis ulcer of right lower extremity Assessment/Plan: rule out underlying osteomyelitis. -med/surg -blood cultures sent -wound culture of right foot -ID evaluation -podiatry evaluation -zosyn -vancomycin -f/u reads of xray of right foot -esr -crp -mri of right foot -wound care Code(s): I83.019 - VARICOSE VEINS OF RIGHT LOWER EXTREMITY W ULCER OF UNSP SITE ; L97.919 - NON-PRS CHRONIC ULC UNSP PRT OF R LOW LEG W UNSP SEVERITY (2) Cellulitis Code(s): L03.90 - CELLULITIS, UNSPECIFIED Qualifiers: Site of cellulitis: extremity Site of cellulitis of extremity: lower extremity Laterality: right Qualified Code(s): L03.115 - Cellulitis of right lower limb (3) CKD (chronic kidney disease) Assessment/Plan: -avoid unecessary nephrotoxins -renal u/s -i/o -daily weights Code(s): N18.9 - CHRONIC KIDNEY DISEASE, UNSPECIFIED (4) HTN (hypertension) Code(s): I10 - ESSENTIAL (PRIMARY) HYPERTENSION Qualifiers: Hypertension type: essential hypertension Qualified Code(s): I10 - Essential (primary) hypertension (5) Fall Assessment/Plan: -f/u official radiology read -fall precautions Code(s): W19.XXXA - UNSPECIFIED FALL, INITIAL ENCOUNTER (6) Hypokalemia Assessment/Plan: -kayexalate -repeat k -avoid lisinopril for now as it can worsen hyperkalemia Code(s): E87.6 - HYPOKALEMIA (7) Diabetes Assessment/Plan: -bgm endo Code(s): E11.9 - TYPE 2 DIABETES MELLITUS WITHOUT COMPLICATIONS
[2018-09-01] MEDS: COLLAGENASE CLOSTRIDIUM HIST. 30 GRAMS TUBE TP SCH (15:30)
--- NOTE | 2018-09-01 15:44 | PN ---
Progress Note (short form) - Note Progress Note: FUV right ankle. +ulceration med & lat ankle right cellulits Continue santyl. abx as per ID. Awaiting vascular consult. Will follow.
--- NOTE | 2018-09-01 15:56 | CONSULT ---
Consult Consult Specialty:: Nephrology Reason for Consultation:: DIOGENES - History of Present Illness Chief Complaint: sent in from [facility] for a lesion on a head x-ray History of Present Illness: Pt is a 73 year old male with pmhx of CKD, DM, HTN, HLD, CVA and DFU who was sent in from [place] after a fall. He was in his room when he leaned forward and fell out of a wheelchair. He is a poor historian. He does have ckd and refused renal workup in the past. He denies chest pain or palpitations. He denies lower edema or shortness of breath. He denies nsaid use. - Past Medical History Cardio/Vascular: Yes: HTN, Hyperlipdemia Pulmonary: Yes: COPD Endocrine: Yes: Diabetes Mellitus - Alcohol/Substance Use Hx Alcohol Use: No - Smoking History Smoking history: Never smoked Have you smoked in the past 12 months: No - Social History Usual Living Arrangement: [facility] Home Medications - Allergies Allergies/Adverse Reactions: Allergies Allergy/AdvReac Type Severity Reaction Status Date / Time watermelon Allergy Unknown Verified 07/05/17 15:24 - Home Medications Home Medications: Ambulatory Orders Albuterol 2.5/Ipratropium 0.5 [Duoneb -] 1 amp NEB Q6H PRN #0 amp 07/12/17 Allopurinol [Zyloprim -] 100 mg PO DAILY tablet 07/12/17 Amlodipine Besylate [Norvasc -] 5 mg PO DAILY tablet 07/12/17 Atorvastatin Ca [Lipitor] 20 mg PO HS tablet 07/12/17 Clopidogrel Bisulfate [Plavix -] 75 mg PO DAILY tablet 07/12/17 Collagenase Clostridium Hist. [Santyl -] 250 unit TP DAILY 08/31/18 Lisinopril 10 mg PO DAILY 08/31/18 Sodium Hypochlorite [Dakin's Solution 0.25% (Half-Strength)] 473 ml MC DAILY 04/11 Family Disease History - Family Disease History Family History: Denies Review of Systems - Review of Systems Constitutional: reports: Malaise Eyes: reports: No Symptoms HENT: reports: No Symptoms Neck: reports: No Symptoms Cardiovascular: reports: No Symptoms Respiratory: reports: No Symptoms Gastrointestinal: reports: No Symptoms Genitourinary: reports: No Symptoms Musculoskeletal: reports: Other (amputations) Neurological: reports: Confusion Endocrine: reports: No Symptoms Physical Exam Vital Signs: Vital Signs Temperature 98.3 F 08/31/18 16:56 Pulse Rate 80 09/01/18 10:00 Respiratory Rate 20 09/01/18 10:00 Blood Pressure 140/60 09/01/18 10:00 O2 Sat by Pulse Oximetry (%) 96 09/01/18 09:00 Constitutional: Yes: Calm Eyes: Yes: Conjunctiva Clear HENT: Yes: Atraumatic Neck: Yes: Supple Cardiovascular: Yes: S1, S2 Respiratory: Yes: CTA Bilaterally Gastrointestinal: Yes: Normal Bowel Sounds, Soft Renal/: Yes: WNL Musculoskeletal: Yes: Other (amputation) Edema: No Neurological: Yes: Confusion Labs: CBC, BMP 09/01/18 07:05 09/01/18 07:05 Laboratory Tests 07/06/17 07/10/17 07/12/17 07:50 07:20 08:00 Hgb Sodium Potassium Chloride BUN Creatinine 1.7 H 2.0 H 1.8 H Urine Protein Urine Blood 08/31/18 08/31/18 08/31/18 01:25 01:25 03:10 Hgb 10.1 L Sodium Potassium Chloride BUN Creatinine 2.8 H Urine Protein 2+ H Urine Blood Negative 09/01/18 09/01/18 07:05 07:05 Hgb 8.9 L Sodium 143 Potassium 4.3 Chloride 113 H BUN 38 H Creatinine 2.6 H Urine Protein Urine Blood Imaging - Results Cat Scan: Report Reviewed Ultrasound: Report Reviewed Problem List - Problems (1) Diabetes Code(s): E11.9 - TYPE 2 DIABETES MELLITUS WITHOUT COMPLICATIONS (2) Fall Code(s): W19.XXXA - UNSPECIFIED FALL, INITIAL ENCOUNTER (3) CKD (chronic kidney disease) Code(s): N18.9 - CHRONIC KIDNEY DISEASE, UNSPECIFIED Assessment/Plan Current Medications Generic Name Dose Route Start Last Admin Trade Name Freq PRN Reason Stop Dose Admin Albuterol/Ipratropium 1 amp 08/31/18 05:08 Duoneb - NEB Q6H PRN SHORTNESS OF BREATH Allopurinol 100 mg 08/31/18 10:00 09/01/18 10:18 Zyloprim - PO 100 mg DAILY [facility]ANTELL Administration Amlodipine Besylate 5 mg 08/31/18 10:00 09/01/18 10:18 Norvasc - PO 5 mg DAILY CHANTELL Administration Atorvastatin Calcium 20 mg 08/31/18 22:00 08/31/18 22:54 Lipitor - PO 20 mg HS CHANTELL Administration Clopidogrel Bisulfate 75 mg 08/31/18 10:00 09/01/18 10:18 Plavix - PO 75 mg DAILY CHANTELL Administration Collagenase 1 applic 08/31/18 12:15 08/31/18 19:34 Santyl - TP 1 applic DAILY [facility]TE[facility] Administration Protocol Heparin Sodium (Porcine) 5,000 unit 08/31/18 10:00 09/01/18 10:18 Heparin - SQ 5,000 unit BID [facility] Administration Sodium Chloride 1,000 mls @ 75 mls/hr 08/31/18 05:00 09/01/18 06:23 Normal Saline - IV 75 mls/hr ASDIR [facility] Administration Insulin Aspart 1 vial 08/31/18 07:00 09/01/18 11:49 Novolog Vial Sliding Scale - SQ Not Given ACHS [facility] Protocol Impression 1. CKD 2. DIOGENES 3. DM 4. hyperlipidemia 5. HTN 6. gout 7. proteinuria 8. s/p fall 9. UTI Plan - change fluids to 1/2 ns - monitor bp - repeat labs in am - check prt to tombstone setter ratio - unclear what lytic lesion on xray is referred to in er note, will check spsp - renal ultrasound reviewed
[2018-09-01] MEDS: SODIUM CHLORIDE 0.45% 1,000 ML IV SCH (18:39)
[2018-09-01] MEDS ORDERED: PT OWN MED DRAWER 7, Y5N ONE (18:55)
--- NOTE | 2018-09-01 19:06 | PN ---
Progress Note (short form) - Note Progress Note: ID Consult dictated
[2018-09-01] MEDS ORDERED: VANCOMYCIN 1,000 MG in DEXTROSE 5%-WATER - 250 ML IVPB ONE (19:10)
[2018-09-01] MEDS ORDERED: VANCOMYCIN 1 GRAM (PRE-DOCKED) 1,000 MG/250 ML BAG IVPB ONE (19:30)
[2018-09-01] MEDS ORDERED: PIPERACILLIN/TAZOBACTAM 2.25 GM VIAL IVPB ONE (20:21)
[2018-09-01] MEDS ORDERED: DEXTROSE 5%-WATER - 50 ML IVPB ONE (20:21)
[2018-09-01] MEDS: PIPERACILLIN/TAZOB 2.25 GM 2.25 GM in DEXTROSE 5%-WATER - 50 ML IVPB SCH (20:22)
[2018-09-01] MEDS: ATORVASTATIN CA 20 MG TABLET (FP) PO SCH (21:51)
[2018-09-02] MEDS ORDERED: PIPERACILLIN/TAZOBACTAM 2.25 GM VIAL IVPB ONE ×3 (01:31→18:27)
[2018-09-02] MEDS ORDERED: DEXTROSE 5%-WATER - 50 ML IVPB ONE ×3 (01:31→18:27)
[2018-09-02] MEDS: PIPERACILLIN/TAZOB 2.25 GM 2.25 GM in DEXTROSE 5%-WATER - 50 ML IVPB SCH ×3 (02:13→18:48)
[2018-09-02] MEDS ORDERED: ACETAMINOPHEN 325 MG TABLET (FP) PO ONE (02:21)
[2018-09-02] MEDS: INSULIN SLIDING SCALE (NOVOLOG) 1 VIAL SQ SCH ×4 (06:28→21:31)
[2018-09-02 08:12] LABS: BASO % 1.4 % (0-2.0); EOS % 4.5 % (0-4.5); HEMATOCRIT 27.8 % (35.4-49); HEMOGLOBIN 8.7 GM/dL (11.7-16.9); LYMPH % 28.4 % (8-40); MCHC 31.3 g/dl (32.0-35.9); MEAN CELL VOLUME 89.3 fl (80-96); MEAN PLT VOLUME 8.8 fl (7.5-11.1); MONO % 9.7 % (3.8-10.2); PLATELET COUNT 274 K/MM3 (134-434); RBC 3.12 M/mm3 (4.00-5.60); RDW 14.8 % (11.9-15.9); WHITE BLOOD COUNT 5.2 K/mm3 (4.0-10.0)
--- NOTE | 2018-09-02 08:40 | CONS ---
DATE OF CONSULTATION: DATE OF DICTATION: 09/01/2018 The patient is a 73-year-old male evaluated for infected foot ulcers. He was admitted to the hospital from the long-term on August 31, 2018. He had apparently fallen from his wheelchair, sustaining head trauma. He was admitted to the hospital, where he was noted to have a nonhealing ulcer of the right foot. Wound culture was obtained and is growing mixed organisms. He is awake and alert. He has no focal complaint. He denies any foot pain. According to the notes, there was drainage noted from the foot ulcers. PAST MEDICAL HISTORY: Positive for dementia, hypertension, hyperlipidemia, stroke, chronic kidney disease. No known drug allergies. MEDICATIONS AT THE PRESENT TIME: Heparin; allopurinol; Norvasc; Lipitor; Plavix. SOCIAL HISTORY: He resides in a snf facility. He is a nonsmoker, nondrinker. SYSTEMS REVIEW: Neurologic: Positive for dementia. Cardiac: Negative chest pain or palpitations. Respiratory: Negative cough or sputum production. Gastrointestinal: Negative vomiting or diarrhea. Genitourinary: Positive for chronic kidney disease. LABORATORY DATA: White blood cell count 5.9, hematocrit 28.7, platelet count 284. BUN 38, creatinine 2.6. Urinalysis with 50 white cells. Blood cultures preliminarily negative. Wound culture with mixed organisms. Urine culture growing group B strep. PHYSICAL EXAMINATION: General: He is chronically ill-appearing. Vital Signs: Temperature 98.0, blood pressure 135/60, pulse 79 and regular, respirations 20/min. HEENT: Sclerae anicteric. Heart Sounds: S1, S2. Lungs: Clear. Abdomen: Soft and nontender. Extremities: On examination of the right lower extremity, there is swelling of the right lower extremity and chronic venous stasis dermatitis. There are superficial ulcerations involving the malleolus with serous drainage noted. No gross purulence. IMPRESSION: 1. Possible sepsis secondary to foot versus urinary tract focus. 2. Urinary tract infection with sepsis secondary to urinary tract infection. 3. Chronic kidney disease. 4. Dementia. Pending sepsis workup, empiric antibiotic coverage with Zosyn and vancomycin adjusted for renal insufficiency. Local wound care. Will follow. Thank you for the kind referral. MARGARET PASCAL M.D. [id number]
[2018-09-02 08:44] LABS: ALBUMIN 1.9 g/dl (3.4-5.0); ALK PHOS 83 U/L (45-117); ANION GAP 9 MMOL/L (8-16); BILIRUBIN,TOTAL 0.3 mg/dL (0.2-1); BLOOD UREA NITROGEN 35 mg/dL (7-18); CALCIUM 7.4 mg/dL (8.5-10.1); CHLORIDE 109 mmol/L (98-107); CO2 21 mmol/L (21-32); CREATININE 2.7 mg/dL (0.55-1.3); GLUCOSE,RANDOM 78 mg/dL (74-106); POTASSIUM 4.4 mmol/L (3.5-5.1); SGOT/AST 14 U/L (15-37); SGPT/ALT 12 U/L (13-61); SODIUM 139 mmol/L (136-145); TOT PROT 6.9 g/dl (6.4-8.2)
[2018-09-02] MEDS: amLODIPine BESYLATE 5 MG TABLET (FP) PO SCH (10:27)
[2018-09-02] MEDS: ALLOPURINOL 100 MG TABLET (FP) PO SCH (10:27)
[2018-09-02] MEDS: HEPARIN NA (PORCINE) 5,000 UNITS/ML 1ML VIAL SQ SCH ×2 (10:27→21:30)
[2018-09-02] MEDS: CLOPIDOGREL BISULFATE 75 MG TABLET (FP) PO SCH (10:27)
[2018-09-02] MEDS: COLLAGENASE CLOSTRIDIUM HIST. 30 GRAMS TUBE TP SCH (10:27)
[2018-09-02] MEDS: SODIUM CHLORIDE 0.45% 1,000 ML IV SCH ×2 (10:33→18:47)
[2018-09-02 12:01] VITALS: BMI 35.4
[2018-09-02 13:35] LABS: RATIO URIN PROTEIN/URIN CREAT 0.2955 MG/DL
--- NOTE | 2018-09-02 14:44 | PN ---
Progress Note, Physician - Current Medication List Current Medications: Active Medications Albuterol/Ipratropium (Duoneb -) 1 amp NEB Q6H PRN PRN Reason: SHORTNESS OF BREATH Allopurinol (Zyloprim -) 100 mg PO DAILY [facility] Last Admin: 09/02/18 10:27 Dose: 100 mg Amlodipine Besylate (Norvasc -) 5 mg PO DAILY [facility] Last Admin: 09/02/18 10:27 Dose: Not Given Atorvastatin Calcium (Lipitor -) 20 mg PO HS [facility] Last Admin: 09/01/18 21:51 Dose: Not Given Clopidogrel Bisulfate (Plavix -) 75 mg PO DAILY [facility] Last Admin: 09/02/18 10:27 Dose: 75 mg Collagenase (Santyl -) 1 applic TP DAILY [facility]; Protocol Last Admin: 09/02/18 10:27 Dose: 1 applic Heparin Sodium (Porcine) (Heparin -) 5,000 unit SQ BID [facility] Last Admin: 09/02/18 10:27 Dose: 5,000 unit Sodium Chloride (1/2 Normal Saline) 1,000 mls @ 75 mls/hr IV ASDIR [facility] Last Admin: 09/02/18 10:33 Dose: 75 mls/hr Piperacillin Sod/Tazobactam (Sod 2.25 gm/ Dextrose) 50 mls @ 100 mls/hr IVPB Q8H-IV [facility]; Protocol Last Admin: 09/02/18 10:27 Dose: 100 mls/hr Insulin Aspart (Novolog Vial Sliding Scale -) 1 vial SQ ACHS [facility]; Protocol Last Admin: 09/02/18 14:02 Dose: Not Given - Objective Vital Signs: Vital Signs Temperature 98.4 F 09/02/18 14:00 Pulse Rate 79 09/02/18 14:00 Respiratory Rate 20 09/02/18 14:00 Blood Pressure 140/63 09/02/18 14:00 O2 Sat by Pulse Oximetry (%) 96 09/01/18 09:00 Cardiovascular: Yes: S1, S2 Respiratory: Yes: Regular, CTA Bilaterally Gastrointestinal: Yes: Normal Bowel Sounds, Soft Labs: CBC, BMP 09/02/18 07:30 09/02/18 07:30 Problem List - Problems (1) Venous stasis ulcer of right lower extremity Assessment/Plan: rule out underlying osteomyelitis. -med/surg -blood cultures sent -wound culture of right foot -ID evaluation -podiatry evaluation -zosyn -vancomycin -f/u reads of xray of right foot -esr -crp -mri of right foot -wound care Code(s): I83.019 - VARICOSE VEINS OF RIGHT LOWER EXTREMITY W ULCER OF UNSP SITE ; L97.919 - NON-PRS CHRONIC ULC UNSP PRT OF R LOW LEG W UNSP SEVERITY (2) Cellulitis Assessment/Plan: -Abx per id Code(s): L03.90 - CELLULITIS, UNSPECIFIED Qualifiers: Site of cellulitis: extremity Site of cellulitis of extremity: lower extremity Laterality: right Qualified Code(s): L03.115 - Cellulitis of right lower limb (3) CKD (chronic kidney disease) Assessment/Plan: -avoid unecessary nephrotoxins -renal u/s -i/o -daily weights Code(s): N18.9 - CHRONIC KIDNEY DISEASE, UNSPECIFIED (4) HTN (hypertension) Code(s): I10 - ESSENTIAL (PRIMARY) HYPERTENSION Qualifiers: Hypertension type: essential hypertension Qualified Code(s): I10 - Essential (primary) hypertension (5) Fall Assessment/Plan: -f/u official radiology read -fall precautions Code(s): W19.XXXA - UNSPECIFIED FALL, INITIAL ENCOUNTER (6) Diabetes Assessment/Plan: -bgm endo Code(s): E11.9 - TYPE 2 DIABETES MELLITUS WITHOUT COMPLICATIONS
--- NOTE | 2018-09-02 16:37 | PN ---
Progress Note, Physician History of Present Illness: Pt seen and examined at bedside. He is awake and appears comfortable. - Current Medication List Current Medications: Active Medications Albuterol/Ipratropium (Duoneb -) 1 amp NEB Q6H PRN PRN Reason: SHORTNESS OF BREATH Allopurinol (Zyloprim -) 100 mg PO DAILY [facility] Last Admin: 09/02/18 10:27 Dose: 100 mg Amlodipine Besylate (Norvasc -) 5 mg PO DAILY [facility] Last Admin: 09/02/18 10:27 Dose: Not Given Atorvastatin Calcium (Lipitor -) 20 mg PO HS [facility] Last Admin: 09/01/18 21:51 Dose: Not Given Clopidogrel Bisulfate (Plavix -) 75 mg PO DAILY [facility] Last Admin: 09/02/18 10:27 Dose: 75 mg Collagenase (Santyl -) 1 applic TP DAILY [facility]; Protocol Last Admin: 09/02/18 10:27 Dose: 1 applic Heparin Sodium (Porcine) (Heparin -) 5,000 unit SQ BID [facility] Last Admin: 09/02/18 10:27 Dose: 5,000 unit Sodium Chloride (1/2 Normal Saline) 1,000 mls @ 75 mls/hr IV ASDIR [facility] Last Admin: 09/02/18 10:33 Dose: 75 mls/hr Piperacillin Sod/Tazobactam (Sod 2.25 gm/ Dextrose) 50 mls @ 100 mls/hr IVPB Q8H-IV [facility]; Protocol Last Admin: 09/02/18 10:27 Dose: 100 mls/hr Insulin Aspart (Novolog Vial Sliding Scale -) 1 vial SQ ACHS [facility]; Protocol Last Admin: 09/02/18 14:02 Dose: Not Given - Objective Vital Signs: Vital Signs Temperature 98.4 F 09/02/18 14:00 Pulse Rate 79 09/02/18 14:00 Respiratory Rate 20 09/02/18 14:00 Blood Pressure 140/63 09/02/18 14:00 O2 Sat by Pulse Oximetry (%) 96 09/01/18 09:00 Constitutional: Yes: Calm Eyes: Yes: Conjunctiva Clear HENT: Yes: Atraumatic Neck: Yes: Supple Cardiovascular: Yes: S1, S2 Respiratory: Yes: CTA Bilaterally Gastrointestinal: Yes: Soft Genitourinary: Yes: Incontinence Extremities: Yes: Other (amputation) Neurological: Yes: Confusion Labs: CBC, BMP 12/09/18 07:30 09/02/18 07:30 Problem List - Problems (1) Diabetes Code(s): E11.9 - TYPE 2 DIABETES MELLITUS WITHOUT COMPLICATIONS (2) Fall Code(s): W19.XXXA - UNSPECIFIED FALL, INITIAL ENCOUNTER (3) CKD (chronic kidney disease) Code(s): N18.9 - CHRONIC KIDNEY DISEASE, UNSPECIFIED Assessment/Plan Current Medications Generic Name Dose Route Start Last Admin Trade Name Freq PRN Reason Stop Dose Admin Albuterol/Ipratropium 1 amp 08/31/18 05:08 Duoneb - NEB Q6H PRN SHORTNESS OF BREATH Allopurinol 100 mg 08/31/18 10:00 09/02/18 10:27 Zyloprim - PO 100 mg DAILY [facility] Administration Amlodipine Besylate 5 mg 08/31/18 10:00 09/02/18 10:27 Norvasc - PO Not Given DAILY [facility] Atorvastatin Calcium 20 mg 08/31/18 22:00 09/01/18 21:51 Lipitor - PO Not Given HS [facility] Clopidogrel Bisulfate 75 mg 08/31/18 10:00 09/02/18 10:27 Plavix - PO 75 mg DAILY [facility] Administration Collagenase 1 applic 08/31/18 12:15 09/02/18 10:27 Santyl - TP 1 applic DAILY [facility] Administration Protocol Heparin Sodium (Porcine) 5,000 unit 08/31/18 10:00 09/02/18 10:27 Heparin - SQ 5,000 unit BID [facility] Administration Sodium Chloride 1,000 mls @ 75 mls/hr 09/01/18 16:15 09/02/18 10:33 1/2 Normal Saline IV 75 mls/hr ASDIR [facility] Administration Piperacillin Sod/Tazobactam 50 mls @ 100 mls/hr 09/01/18 19:30 09/02/18 10:27 Sod 2.25 gm/ Dextrose IVPB 100 mls/hr Q8H-IV [facility] Administration Protocol Insulin Aspart 1 vial 08/31/18 07:00 09/02/18 14:02 Novolog Vial Sliding Scale - SQ Not Given ACHS [facility] Protocol Impression 1. CKD 2. DIOGENES 3. DM 4. hyperlipidemia 5. HTN 6. gout 7. proteinuria 8. s/p fall 9. UTI Plan - repeat labs in am - monitor renal function - workup is in progress - likely progression of renal disease - follow spep
[2018-09-02] MEDS: ATORVASTATIN CA 20 MG TABLET (FP) PO SCH (21:31)
[2018-09-03] MEDS ORDERED: DEXTROSE 5%-WATER - 50 ML IVPB ONE ×2 (01:17→17:02)
[2018-09-03] MEDS ORDERED: PIPERACILLIN/TAZOBACTAM 2.25 GM VIAL IVPB ONE ×3 (01:17→17:02)
[2018-09-03] MEDS: PIPERACILLIN/TAZOB 2.25 GM 2.25 GM in DEXTROSE 5%-WATER - 50 ML IVPB SCH ×3 (01:31→17:16)
[2018-09-03] MEDS: INSULIN SLIDING SCALE (NOVOLOG) 1 VIAL SQ SCH ×4 (06:58→22:38)
[2018-09-03] MEDS ORDERED: DEXTROSE 5%-WATER - 100 ML IVPB ONE (09:43)
[2018-09-03] MEDS: ALLOPURINOL 100 MG TABLET (FP) PO SCH (11:39)
[2018-09-03] MEDS: amLODIPine BESYLATE 5 MG TABLET (FP) PO SCH (11:39)
[2018-09-03] MEDS: CLOPIDOGREL BISULFATE 75 MG TABLET (FP) PO SCH (11:39)
[2018-09-03] MEDS: HEPARIN NA (PORCINE) 5,000 UNITS/ML 1ML VIAL SQ SCH ×2 (11:40→22:36)
--- NOTE | 2018-09-03 11:57 | PN ---
Progress Note, Physician Chief Complaint: patient awake in bed contracted - Current Medication List Current Medications: Active Medications Albuterol/Ipratropium (Duoneb -) 1 amp NEB Q6H PRN PRN Reason: SHORTNESS OF BREATH Allopurinol (Zyloprim -) 100 mg PO DAILY [facility] Last Admin: 09/02/18 10:27 Dose: 100 mg Amlodipine Besylate (Norvasc -) 5 mg PO DAILY [facility] Last Admin: 09/02/18 10:27 Dose: Not Given Atorvastatin Calcium (Lipitor -) 20 mg PO HS [facility] Last Admin: 09/02/18 21:31 Dose: 20 mg Clopidogrel Bisulfate (Plavix -) 75 mg PO DAILY [facility] Last Admin: 09/02/18 10:27 Dose: 75 mg Collagenase (Santyl -) 1 applic TP DAILY [facility]; Protocol Last Admin: 09/02/18 10:27 Dose: 1 applic Heparin Sodium (Porcine) (Heparin -) 5,000 unit SQ BID [facility] Last Admin: 09/02/18 21:30 Dose: 5,000 unit Sodium Chloride (1/2 Normal Saline) 1,000 mls @ 75 mls/hr IV ASDIR [facility] Last Admin: 09/02/18 18:47 Dose: Not Given Piperacillin Sod/Tazobactam (Sod 2.25 gm/ Dextrose) 50 mls @ 100 mls/hr IVPB Q8H-IV [facility]; Protocol Last Admin: 09/03/18 01:31 Dose: Not Given Insulin Aspart (Novolog Vial Sliding Scale -) 1 vial SQ ACHS [facility]; Protocol Last Admin: 09/03/18 06:58 Dose: Not Given - Objective Vital Signs: Vital Signs Temperature 98.5 F 09/03/18 06:00 Pulse Rate 76 09/03/18 06:00 Respiratory Rate 20 09/03/18 06:00 Blood Pressure 156/78 09/03/18 06:00 O2 Sat by Pulse Oximetry (%) 96 09/01/18 09:00 Constitutional: Yes: Calm Cardiovascular: Yes: Regular Rate and Rhythm, S1, S2 Respiratory: Yes: CTA Bilaterally Gastrointestinal: Yes: Normal Bowel Sounds, Soft Integumentary: Yes: Venous Stasis Changes Wound/Incision: Yes: Other (wound seen with yellow base,foul smelling) Neurological: Yes: Alert Labs: CBC, BMP 09/02/18 07:30 09/02/18 07:30 Problem List - Problems (1) Diabetes Assessment/Plan: controled [id number] 6.6 Code(s): E11.9 - TYPE 2 DIABETES MELLITUS WITHOUT COMPLICATIONS Qualifiers: Diabetes mellitus type: type 2 (2) CKD (chronic kidney disease) Assessment/Plan: renal on board avoid nephrotoxic agents lisinopril is on hold for now given hyperkalemia - which has improved and worsening renal disease Code(s): N18.9 - CHRONIC KIDNEY DISEASE, UNSPECIFIED (3) HTN (hypertension) Assessment/Plan: will increase norvasc to 10 mg Code(s): I10 - ESSENTIAL (PRIMARY) HYPERTENSION Qualifiers: Hypertension type: essential hypertension Qualified Code(s): I10 - Essential (primary) hypertension (4) Venous stasis ulcer of right lower extremity Assessment/Plan: MRI pending iv zosyn ID on board santyl per podiatry awaiting vascular consult Microbiology 08/31/18 04:47 Foot - Right Dorsum Gram Stain - Final 08/31/18 04:47 Foot - Right Dorsum Wound Culture - Preliminary Proteus Mirabilis Beta Hemolytic Strep Diphtheroid/Corynebacterium Group D Strep Or Entero Coccus Mr S Aureus no dvt- per vascular imaging heparin sub Q for dvt ppx Code(s): I83.019 - VARICOSE VEINS OF RIGHT LOWER EXTREMITY W ULCER OF UNSP SITE ; L97.919 - NON-PRS CHRONIC ULC UNSP PRT OF R LOW LEG W UNSP SEVERITY
[2018-09-03] MEDS: COLLAGENASE CLOSTRIDIUM HIST. 30 GRAMS TUBE TP SCH (12:17)
[2018-09-03] MEDS: SODIUM CHLORIDE 0.45% 1,000 ML IV SCH ×2 (13:09→15:45)
--- NOTE | 2018-09-03 13:21 | PN ---
Progress Note, Physician History of Present Illness: Awake, seated in bed Eating lunch No c/o foot pain No fever/ chills Tolerating antibiotic - Current Medication List Current Medications: Active Medications Albuterol/Ipratropium (Duoneb -) 1 amp NEB Q6H PRN PRN Reason: SHORTNESS OF BREATH Allopurinol (Zyloprim -) 100 mg PO DAILY [facility] Last Admin: 09/03/18 11:39 Dose: 100 mg Amlodipine Besylate (Norvasc -) 5 mg PO DAILY [facility] Last Admin: 09/03/18 11:39 Dose: 5 mg Atorvastatin Calcium (Lipitor -) 20 mg PO HS [facility] Last Admin: 09/02/18 21:31 Dose: 20 mg Clopidogrel Bisulfate (Plavix -) 75 mg PO DAILY [facility] Last Admin: 09/03/18 11:39 Dose: 75 mg Collagenase (Santyl -) 1 applic TP DAILY [facility]; Protocol Last Admin: 09/03/18 12:17 Dose: 1 applic Heparin Sodium (Porcine) (Heparin -) 5,000 unit SQ BID [facility] Last Admin: 09/03/18 11:40 Dose: 5,000 unit Sodium Chloride (1/2 Normal Saline) 1,000 mls @ 75 mls/hr IV ASDIR [facility] Last Admin: 09/03/18 13:09 Dose: 75 mls/hr Piperacillin Sod/Tazobactam (Sod 2.25 gm/ Dextrose) 50 mls @ 100 mls/hr IVPB Q8H-IV [facility]; Protocol Last Admin: 09/03/18 13:10 Dose: 100 mls/hr Insulin Aspart (Novolog Vial Sliding Scale -) 1 vial SQ ACHS [facility]; Protocol Last Admin: 09/03/18 12:19 Dose: Not Given - Objective Vital Signs: Vital Signs Temperature 98.0 F 09/03/18 12:00 Pulse Rate 79 09/03/18 12:00 Respiratory Rate 20 09/03/18 06:00 Blood Pressure 157/88 09/03/18 12:00 O2 Sat by Pulse Oximetry (%) 96 09/01/18 09:00 Constitutional: Yes: No Distress, Obese Cardiovascular: Yes: Regular Rate and Rhythm, S1, S2 Respiratory: Yes: CTA Bilaterally Gastrointestinal: Yes: Normal Bowel Sounds, Soft, Abdomen, Obese. No: Tenderness Extremities: Yes: Other (+ R foot swelling and deformity. + Superficial ulcers with serous drainage) Labs: CBC, BMP 09/02/18 07:30 09/02/18 07:30 Assessment/Plan Infected chronic foot ulcers- polymicrobial UTI CKD Continue zosyn Redose vancomycin Vascular surgery evaluation ?BKA
[2018-09-03] MEDS ORDERED: VANCOMYCIN 1 GRAM (PRE-DOCKED) 1,000 MG/250 ML BAG IVPB ONE (14:00)
--- NOTE | 2018-09-03 15:05 | PN ---
Progress Note, Physician History of Present Illness: Pt seen and examined at bedside. He remains confused. - Current Medication List Current Medications: Active Medications Albuterol/Ipratropium (Duoneb -) 1 amp NEB Q6H PRN PRN Reason: SHORTNESS OF BREATH Allopurinol (Zyloprim -) 100 mg PO DAILY [facility] Last Admin: 09/03/18 11:39 Dose: 100 mg Amlodipine Besylate (Norvasc -) 5 mg PO DAILY [facility] Last Admin: 09/03/18 11:39 Dose: 5 mg Atorvastatin Calcium (Lipitor -) 20 mg PO HS [facility] Last Admin: 09/02/18 21:31 Dose: 20 mg Clopidogrel Bisulfate (Plavix -) 75 mg PO DAILY [facility] Last Admin: 09/03/18 11:39 Dose: 75 mg Collagenase (Santyl -) 1 applic TP DAILY [facility]; Protocol Last Admin: 09/03/18 12:17 Dose: 1 applic Heparin Sodium (Porcine) (Heparin -) 5,000 unit SQ BID [facility] Last Admin: 09/03/18 11:40 Dose: 5,000 unit Sodium Chloride (1/2 Normal Saline) 1,000 mls @ 75 mls/hr IV ASDIR [facility] Last Admin: 09/03/18 13:09 Dose: 75 mls/hr Piperacillin Sod/Tazobactam (Sod 2.25 gm/ Dextrose) 50 mls @ 100 mls/hr IVPB Q8H-IV [facility]; Protocol Last Admin: 09/03/18 13:10 Dose: 100 mls/hr Vancomycin HCl (Vancomycin (Pre-Docked)) 1,000 mg in 250 mls @ 166.667 mls/hr IVPB ONCE ONE; Protocol Stop: 09/03/18 15:29 Insulin Aspart (Novolog Vial Sliding Scale -) 1 vial SQ ACHS [facility]; Protocol Last Admin: 09/03/18 12:19 Dose: Not Given - Objective Vital Signs: Vital Signs Temperature 98.0 F 09/03/18 12:00 Pulse Rate 79 09/03/18 12:00 Respiratory Rate 20 09/03/18 06:00 Blood Pressure 157/88 09/03/18 12:00 O2 Sat by Pulse Oximetry (%) 96 09/01/18 09:00 Constitutional: Yes: Calm Eyes: Yes: Conjunctiva Clear HENT: Yes: Atraumatic Cardiovascular: Yes: S1, S2 Respiratory: Yes: CTA Bilaterally Gastrointestinal: Yes: Soft Genitourinary: Yes: Incontinence Musculoskeletal: Yes: Other (toe amputation) Edema: No Neurological: Yes: Confusion Labs: CBC, BMP 09/02/18 07:30 09/02/18 07:30 Problem List - Problems (1) Diabetes Code(s): E11.9 - TYPE 2 DIABETES MELLITUS WITHOUT COMPLICATIONS Qualifiers: Diabetes mellitus type: type 2 (2) Fall Code(s): W19.XXXA - UNSPECIFIED FALL, INITIAL ENCOUNTER (3) CKD (chronic kidney disease) Code(s): N18.9 - CHRONIC KIDNEY DISEASE, UNSPECIFIED Assessment/Plan Current Medications Generic Name Dose Route Start Last Admin Trade Name Freq PRN Reason Stop Dose Admin Albuterol/Ipratropium 1 amp 08/31/18 05:08 Duoneb - NEB Q6H PRN SHORTNESS OF BREATH Allopurinol 100 mg 08/31/18 10:00 09/03/18 11:39 Zyloprim - PO 100 mg DAILY [facility] Administration Amlodipine Besylate 5 mg 08/31/18 10:00 09/03/18 11:39 Norvasc - PO 5 mg DAILY [facility] Administration Atorvastatin Calcium 20 mg 08/31/18 22:00 09/02/18 21:31 Lipitor - PO 20 mg HS [facility] Administration Clopidogrel Bisulfate 75 mg 08/31/18 10:00 09/03/18 11:39 Plavix - PO 75 mg DAILY [facility] Administration Collagenase 1 applic 08/31/18 12:15 09/03/18 12:17 Santyl - TP 1 applic DAILY [facility] Administration Protocol Heparin Sodium (Porcine) 5,000 unit 08/31/18 10:00 09/03/18 11:40 Heparin - SQ 5,000 unit BID [facility] Administration Sodium Chloride 1,000 mls @ 75 mls/hr 09/01/18 16:15 09/03/18 13:09 1/2 Normal Saline IV 75 mls/hr ASDIR [facility] Administration Piperacillin Sod/Tazobactam 50 mls @ 100 mls/hr 09/01/18 19:30 09/03/18 13:10 Sod 2.25 gm/ Dextrose IVPB 100 mls/hr Q8H-IV [facility] Administration Protocol Vancomycin HCl 1,000 mg in 250 mls @ 166.667 mls/hr 09/03/18 14:00 Vancomycin (Pre-Docked) IVPB 09/03/18 15:29 ONCE ONE Protocol Insulin Aspart 1 vial 08/31/18 07:00 09/03/18 12:19 Novolog Vial Sliding Scale - SQ Not Given ACHS [facility] Protocol Laboratory Tests 08/31/18 09/02/18 09/02/18 03:10 07:30 12:00 Urine Protein 2+ H Protein/Creatinin Ratio 0.2955 MARTIN M-Jarrell Pending Serum MARTIN Interpret Pending MARTIN Interpretation Pending IEP IgG Pending IEP IgA Pending IEP IgM Pending VISHAL Screen Pending Free Tolstoy LC, Quant Pending Free Lambda LC, Quant Pending Free Tolstoy/Lambda Ratio Pending Impression 1. CKD 2. DIOGENES 3. DM 4. hyperlipidemia 5. HTN 6. gout 7. proteinuria 8. s/p fall 9. UTI Plan - renal workup in progress - decrease fluids - repeat labs in am - wound care to feet - likely progression of renal disease - follow spep
[2018-09-03] MEDS: ATORVASTATIN CA 20 MG TABLET (FP) PO SCH (22:38)
[2018-09-04] MEDS ORDERED: PIPERACILLIN/TAZOBACTAM 2.25 GM VIAL IVPB ONE ×3 (01:28→18:03)
[2018-09-04] MEDS ORDERED: DEXTROSE 5%-WATER - 50 ML IVPB ONE ×3 (01:28→18:03)
[2018-09-04] MEDS: PIPERACILLIN/TAZOB 2.25 GM 2.25 GM in DEXTROSE 5%-WATER - 50 ML IVPB SCH ×3 (01:35→18:34)
[2018-09-04] MEDS: INSULIN SLIDING SCALE (NOVOLOG) 1 VIAL SQ SCH ×4 (06:29→22:00)
[2018-09-04 06:32] LABS: ALK PHOS 84 U/L (45-117); ANION GAP 9 MMOL/L (8-16); BILIRUBIN,TOTAL 0.2 mg/dL (0.2-1); BLOOD UREA NITROGEN 33 mg/dL (7-18); CALCIUM 7.6 mg/dL (8.5-10.1); CHLORIDE 110 mmol/L (98-107); CO2 22 mmol/L (21-32); CREATININE 2.7 mg/dL (0.55-1.3); GLUCOSE,RANDOM 92 mg/dL (74-106); POTASSIUM 4.2 mmol/L (3.5-5.1); SGOT/AST 12 U/L (15-37); SGPT/ALT 12 U/L (13-61); SODIUM 141 mmol/L (136-145); TOT PROT 7.1 g/dl (6.4-8.2)
[2018-09-04] MEDS ORDERED: INSULIN (NOVOLOG) ASPART 100 UNITS/ML 10ML VIAL ONE (11:01)
[2018-09-04] MEDS: CLOPIDOGREL BISULFATE 75 MG TABLET (FP) PO SCH (11:12)
[2018-09-04] MEDS: HEPARIN NA (PORCINE) 5,000 UNITS/ML 1ML VIAL SQ SCH ×2 (11:12→22:01)
[2018-09-04] MEDS: ALLOPURINOL 100 MG TABLET (FP) PO SCH (11:12)
[2018-09-04] MEDS: amLODIPine BESYLATE 5 MG TABLET (FP) PO SCH (11:12)
[2018-09-04] MEDS: COLLAGENASE CLOSTRIDIUM HIST. 30 GRAMS TUBE TP SCH (11:12)
--- NOTE | 2018-09-04 12:26 | PN ---
Progress Note (short form) - Note Progress Note: Called for re-consult for possible R BKA/AKA for RLE. Briefly, pt is a 73 y/o M w/ PMHx DM, HTN, HLD, CKD, h/o CVA many years ago, chronic rle ulcers, now admitted after fall at [place]. Per pt, has been bedbound 13 years. Reports pain in RLE with movement, manipulation during dressing changes. On exam, pt laying in bed with severe right lower extremity contracture to nearly 140degrees. R ankle inverted, foot edematous to ankle. Toes shortened with severe fusion, unable to separate toes. Large ulcer over posterior aspect of ankle, nearly circumferential, wound bed clean based, with minimal fibrinous exudate, surrounding skin with hypertrophic skin changes. No purulent drainage, no erythema. Ulcer over anterior aspect of great toe, clean based with serous drainage, hypertrophic skin changes. No erythema or drainage. LLE contracted to 45 degrees. No ulcerations present A/P: 73 y/o M w/ PMHx DM, HTN, HLD, CKD, h/o CVA many years ago, chronic rle ulcers, now admitted after fall at [place]. Pt with severe contracture of RLE with large, non-infected ulcer. Extensive discussion with pt regarding his feelings about amputation should he develop an infection necessitating surgical intervention. Pt states he has not thought about amputation in the past and will give some thought to what he would like done should he develop an infection/sepsis in his LE. -No acute surgical intervention at this time -Continue daily dressing changes with santyl -Offloading to RLE at all times (place pillow between legs/feet and under R foot as pt is mainly laying turned towards the R) -Pt should f/u with wound clinic upon d/c above d/w attending, Dr Mcneil
--- NOTE | 2018-09-04 13:28 | PN ---
Progress Note, Physician History of Present Illness: Pt seen and examined at bedside. He is awake and appears comfortable. He denies shortness of breath. - Current Medication List Current Medications: Active Medications Albuterol/Ipratropium (Duoneb -) 1 amp NEB Q6H PRN PRN Reason: SHORTNESS OF BREATH Allopurinol (Zyloprim -) 100 mg PO DAILY [facility] Last Admin: 09/04/18 11:12 Dose: 100 mg Amlodipine Besylate (Norvasc -) 5 mg PO DAILY [facility] Last Admin: 09/04/18 11:12 Dose: 5 mg Atorvastatin Calcium (Lipitor -) 20 mg PO HS [facility] Last Admin: 09/03/18 22:38 Dose: Not Given Clopidogrel Bisulfate (Plavix -) 75 mg PO DAILY [facility] Last Admin: 09/04/18 11:12 Dose: 75 mg Collagenase (Santyl -) 1 applic TP DAILY [facility]; Protocol Last Admin: 09/04/18 11:12 Dose: 1 applic Heparin Sodium (Porcine) (Heparin -) 5,000 unit SQ BID [facility] Last Admin: 09/04/18 11:12 Dose: Not Given Piperacillin Sod/Tazobactam (Sod 2.25 gm/ Dextrose) 50 mls @ 100 mls/hr IVPB Q8H-IV [facility]; Protocol Last Admin: 09/04/18 11:13 Dose: 100 mls/hr Sodium Chloride (1/2 Normal Saline) 1,000 mls @ 40 mls/hr IV ASDIR [facility] Last Admin: 09/03/18 15:45 Dose: 40 mls/hr Insulin Aspart (Novolog Vial Sliding Scale -) 1 vial SQ ACHS [facility]; Protocol Last Admin: 09/04/18 11:28 Dose: Not Given - Objective Vital Signs: Vital Signs Temperature 98.5 F 09/04/18 06:00 Pulse Rate 79 09/04/18 06:00 Respiratory Rate 20 09/04/18 06:00 Blood Pressure 155/73 09/04/18 06:00 O2 Sat by Pulse Oximetry (%) 96 09/01/18 09:00 Constitutional: Yes: Calm Eyes: Yes: Conjunctiva Clear HENT: Yes: Atraumatic Cardiovascular: Yes: S1, S2 Respiratory: Yes: CTA Bilaterally Gastrointestinal: Yes: Soft Genitourinary: Yes: Incontinence Edema: No Neurological: Yes: Confusion Labs: CBC, BMP 09/02/18 07:30 09/04/18 05:35 Problem List - Problems (1) Diabetes Code(s): E11.9 - TYPE 2 DIABETES MELLITUS WITHOUT COMPLICATIONS Qualifiers: Diabetes mellitus type: type 2 (2) Fall Code(s): W19.XXXA - UNSPECIFIED FALL, INITIAL ENCOUNTER (3) CKD (chronic kidney disease) Code(s): N18.9 - CHRONIC KIDNEY DISEASE, UNSPECIFIED Assessment/Plan Current Medications Generic Name Dose Route Start Last Admin Trade Name Freq PRN Reason Stop Dose Admin Albuterol/Ipratropium 1 amp 08/31/18 05:08 Duoneb - NEB Q6H PRN SHORTNESS OF BREATH Allopurinol 100 mg 08/31/18 10:00 09/04/18 11:12 Zyloprim - PO 100 mg DAILY [facility] Administration Amlodipine Besylate 5 mg 08/31/18 10:00 09/04/18 11:12 Norvasc - PO 5 mg DAILY [facility] Administration Atorvastatin Calcium 20 mg 08/31/18 22:00 09/03/18 22:38 Lipitor - PO Not Given HS [facility] Clopidogrel Bisulfate 75 mg 08/31/18 10:00 09/04/18 11:12 Plavix - PO 75 mg DAILY [facility] Administration Collagenase 1 applic 08/31/18 12:15 09/04/18 11:12 Santyl - TP 1 applic DAILY [facility] Administration Protocol Heparin Sodium (Porcine) 5,000 unit 08/31/18 10:00 09/04/18 11:12 Heparin - SQ Not Given BID [facility] Piperacillin Sod/Tazobactam 50 mls @ 100 mls/hr 09/01/18 19:30 09/04/18 11:13 Sod 2.25 gm/ Dextrose IVPB 100 mls/hr Q8H-IV [facility] Administration Protocol Sodium Chloride 1,000 mls @ 40 mls/hr 09/03/18 15:05 09/03/18 15:45 1/2 Normal Saline IV 40 mls/hr ASDIR [facility] Administration Insulin Aspart 1 vial 08/31/18 07:00 09/04/18 11:28 Novolog Vial Sliding Scale - SQ Not Given ACHS [facility] Protocol Impression 1. CKD 2. DIOGENES 3. DM 4. hyperlipidemia 5. HTN 6. gout 7. proteinuria 8. s/p fall 9. UTI Plan - follow spep - repeat labs in am - can stop fluids - will need close renal follow up as outpt - likely progression of renal disease - follow spep
--- NOTE | 2018-09-04 14:20 | PN ---
Progress Note, Physician Chief Complaint: AWAKE DENIES CHEST PAIN OR SOB EVENTS AND NOTES REVIEWED - Current Medication List Current Medications: Active Medications Albuterol/Ipratropium (Duoneb -) 1 amp NEB Q6H PRN PRN Reason: SHORTNESS OF BREATH Allopurinol (Zyloprim -) 100 mg PO DAILY [facility] Last Admin: 09/04/18 11:12 Dose: 100 mg Amlodipine Besylate (Norvasc -) 5 mg PO DAILY [facility] Last Admin: 09/04/18 11:12 Dose: 5 mg Atorvastatin Calcium (Lipitor -) 20 mg PO HS [facility] Last Admin: 09/03/18 22:38 Dose: Not Given Clopidogrel Bisulfate (Plavix -) 75 mg PO DAILY [facility] Last Admin: 09/04/18 11:12 Dose: 75 mg Collagenase (Santyl -) 1 applic TP DAILY [facility]; Protocol Last Admin: 09/04/18 11:12 Dose: 1 applic Heparin Sodium (Porcine) (Heparin -) 5,000 unit SQ BID [facility] Last Admin: 09/04/18 11:12 Dose: Not Given Piperacillin Sod/Tazobactam (Sod 2.25 gm/ Dextrose) 50 mls @ 100 mls/hr IVPB Q8H-IV [facility]; Protocol Last Admin: 09/04/18 11:13 Dose: 100 mls/hr Sodium Chloride (1/2 Normal Saline) 1,000 mls @ 40 mls/hr IV ASDIR [facility] Last Admin: 09/03/18 15:45 Dose: 40 mls/hr Insulin Aspart (Novolog Vial Sliding Scale -) 1 vial SQ ACHS [facility]; Protocol Last Admin: 09/04/18 11:28 Dose: Not Given - Objective Vital Signs: Vital Signs Temperature 98.5 F 09/04/18 06:00 Pulse Rate 76 09/04/18 10:00 Respiratory Rate 18 09/04/18 10:00 Blood Pressure 146/76 09/04/18 10:00 O2 Sat by Pulse Oximetry (%) 97 09/04/18 09:00 Constitutional: Yes: Mild Distress Eyes: Yes: WNL HENT: Yes: WNL Neck: Yes: WNL Cardiovascular: Yes: WNL Respiratory: Yes: WNL Gastrointestinal: Yes: Soft Genitourinary: Yes: Incontinence Musculoskeletal: Yes: Other Extremities: Yes: Deformity, Other Integumentary: Yes: Pressure Ulcer Wound/Incision: Yes: Dressing Dry and Intact Neurological: Yes: Pre-Existing Deficit ...Motor Strength: RLE Psychiatric: Yes: WNL Labs: CBC, BMP 09/02/18 07:30 09/04/18 05:35 Problem List - Problems (1) Cellulitis Code(s): L03.90 - CELLULITIS, UNSPECIFIED Qualifiers: Site of cellulitis: extremity Site of cellulitis of extremity: lower extremity Laterality: right Qualified Code(s): L03.115 - Cellulitis of right lower limb (2) Diabetes Code(s): E11.9 - TYPE 2 DIABETES MELLITUS WITHOUT COMPLICATIONS Qualifiers: Diabetes mellitus type: type 2 (3) Fall Code(s): W19.XXXA - UNSPECIFIED FALL, INITIAL ENCOUNTER (4) CKD (chronic kidney disease) Code(s): N18.9 - CHRONIC KIDNEY DISEASE, UNSPECIFIED (5) Cellulitis of right foot Code(s): L03.115 - CELLULITIS OF RIGHT LOWER LIMB (6) HTN (hypertension) Code(s): I10 - ESSENTIAL (PRIMARY) HYPERTENSION Qualifiers: Hypertension type: essential hypertension Qualified Code(s): I10 - Essential (primary) hypertension Assessment/Plan VASC SURGERY EVAL PENDING IV ABX PER ID ZOSYN/VANCO DM CONTROL SSI DVT PROPHYLAXIS
--- NOTE | 2018-09-04 15:15 | PN ---
Progress Note (short form) - Note Progress Note: FUV right ankle. +ulceration med & lat ankle right cellulits Continue santyl. abx as per ID. Vascular on case. will follow.
[2018-09-04] MEDS: SODIUM CHLORIDE 0.45% 1,000 ML IV SCH (18:34)
[2018-09-04 19:14] LABS: FREE KAPPA,SERUM 200.2 mg/L (3.3-19.4)
[2018-09-04] MEDS: ATORVASTATIN CA 20 MG TABLET (FP) PO SCH (22:01)
[2018-09-05] MEDS ORDERED: PIPERACILLIN/TAZOBACTAM 2.25 GM VIAL IVPB ONE ×3 (02:13→17:38)
[2018-09-05] MEDS ORDERED: DEXTROSE 5%-WATER - 50 ML IVPB ONE ×3 (02:13→17:39)
[2018-09-05] MEDS: PIPERACILLIN/TAZOB 2.25 GM 2.25 GM in DEXTROSE 5%-WATER - 50 ML IVPB SCH ×3 (02:19→17:43)
[2018-09-05] MEDS: INSULIN SLIDING SCALE (NOVOLOG) 1 VIAL SQ SCH ×4 (06:24→21:08)
[2018-09-05 06:56] LABS: HEMATOCRIT 28.2 % (35.4-49); HEMOGLOBIN 8.9 GM/dL (11.7-16.9); MCH 28.1 pg (25.7-33.7); MCHC 31.5 g/dl (32.0-35.9); MEAN CELL VOLUME 89.2 fl (80-96); MEAN PLT VOLUME 8.9 fl (7.5-11.1); PLATELET COUNT 281 K/MM3 (134-434); RBC 3.16 M/mm3 (4.00-5.60); RDW 15.3 % (11.9-15.9); WHITE BLOOD COUNT 5.6 K/mm3 (4.0-10.0)
[2018-09-05 07:19] LABS: ANION GAP 8 MMOL/L (8-16); BLOOD UREA NITROGEN 40 mg/dL (7-18); CALCIUM 7.8 mg/dL (8.5-10.1); CHLORIDE 111 mmol/L (98-107); CO2 22 mmol/L (21-32); CREATININE 2.8 mg/dL (0.55-1.3); GLUCOSE,RANDOM 93 mg/dL (74-106); POTASSIUM 4.6 mmol/L (3.5-5.1); SODIUM 141 mmol/L (136-145)
--- NOTE | 2018-09-05 09:47 | PN ---
Progress Note, Physician Chief Complaint: PATIENT IN BED AND DOES NOT HAVE AN IV SITE. PATIENT AGREES TO GO TO I.R. FOR IV PLACEMENT DENIES CHEST PAIN OR SOB - Current Medication List Current Medications: Active Medications Allopurinol (Zyloprim -) 100 mg PO DAILY [facility] Last Admin: 09/04/18 11:12 Dose: 100 mg Amlodipine Besylate (Norvasc -) 5 mg PO DAILY [facility] Last Admin: 09/04/18 11:12 Dose: 5 mg Atorvastatin Calcium (Lipitor -) 20 mg PO HS [facility] Last Admin: 09/04/18 22:01 Dose: 20 mg Clopidogrel Bisulfate (Plavix -) 75 mg PO DAILY [facility] Last Admin: 09/04/18 11:12 Dose: 75 mg Collagenase (Santyl -) 1 applic TP DAILY [facility]; Protocol Last Admin: 09/04/18 11:12 Dose: 1 applic Heparin Sodium (Porcine) (Heparin -) 5,000 unit SQ BID [facility] Last Admin: 09/04/18 22:01 Dose: 5,000 unit Piperacillin Sod/Tazobactam (Sod 2.25 gm/ Dextrose) 50 mls @ 100 mls/hr IVPB Q8H-IV [facility]; Protocol Last Admin: 09/05/18 02:19 Dose: 100 mls/hr Sodium Chloride (1/2 Normal Saline) 1,000 mls @ 40 mls/hr IV ASDIR [facility] Last Admin: 09/04/18 18:34 Dose: 40 mls/hr Insulin Aspart (Novolog Vial Sliding Scale -) 1 vial SQ ACHS [facility]; Protocol Last Admin: 09/05/18 06:24 Dose: Not Given - Objective Vital Signs: Vital Signs Temperature 98.1 F 09/05/18 06:00 Pulse Rate 79 09/05/18 06:00 Respiratory Rate 20 09/05/18 06:00 Blood Pressure 149/71 09/05/18 06:00 O2 Sat by Pulse Oximetry (%) 97 09/04/18 21:00 Constitutional: Yes: Mild Distress Eyes: Yes: WNL HENT: Yes: WNL Neck: Yes: WNL Cardiovascular: Yes: Regular Rate and Rhythm Gastrointestinal: Yes: Soft Genitourinary: Yes: Incontinence Musculoskeletal: Yes: Muscle Weakness Extremities: Yes: Deformity Edema: Yes Integumentary: Yes: Pressure Ulcer, Rash Wound/Incision: Yes: Dressing Dry and Intact Neurological: Yes: Paresthesia, Pre-Existing Deficit, Weakness ...Motor Strength: RUE (RIGHT UPPER EXTREMITY LIPOMA ON BICEP), RLE Psychiatric: Yes: Other Labs: CBC, BMP 09/05/18 06:00 09/05/18 06:00 Problem List - Problems (1) Cellulitis Code(s): L03.90 - CELLULITIS, UNSPECIFIED Qualifiers: Site of cellulitis: extremity Site of cellulitis of extremity: lower extremity Laterality: right Qualified Code(s): L03.115 - Cellulitis of right lower limb (2) Diabetes Code(s): E11.9 - TYPE 2 DIABETES MELLITUS WITHOUT COMPLICATIONS Qualifiers: Diabetes mellitus type: type 2 (3) Fall Code(s): W19.XXXA - UNSPECIFIED FALL, INITIAL ENCOUNTER (4) CKD (chronic kidney disease) Code(s): N18.9 - CHRONIC KIDNEY DISEASE, UNSPECIFIED (5) Cellulitis of right foot Code(s): L03.115 - CELLULITIS OF RIGHT LOWER LIMB (6) HTN (hypertension) Code(s): I10 - ESSENTIAL (PRIMARY) HYPERTENSION Qualifiers: Hypertension type: essential hypertension Qualified Code(s): I10 - Essential (primary) hypertension Assessment/Plan IV PLACEMENT IN I.R. VASC SURGERY EVAL PENDING IV ABX PER EMELY BUTLER/ALVERTO DM CONTROL SSI DVT PROPHYLAXIS
[2018-09-05] MEDS ORDERED: PT OWN MED DRAWER 7, Y5N ONE (10:53)
[2018-09-05] MEDS: CLOPIDOGREL BISULFATE 75 MG TABLET (FP) PO SCH (11:29)
[2018-09-05] MEDS: amLODIPine BESYLATE 5 MG TABLET (FP) PO SCH (11:29)
[2018-09-05] MEDS: SODIUM CHLORIDE 0.45% 1,000 ML IV SCH (11:29)
[2018-09-05] MEDS: ALLOPURINOL 100 MG TABLET (FP) PO SCH (11:29)
[2018-09-05] MEDS: HEPARIN NA (PORCINE) 5,000 UNITS/ML 1ML VIAL SQ SCH ×2 (11:30→21:08)
--- NOTE | 2018-09-05 11:58 | PN ---
Progress Note, Physician History of Present Illness: Pt seen and examined at bedside. No great change from yesterday. - Current Medication List Current Medications: Active Medications Allopurinol (Zyloprim -) 100 mg PO DAILY [facility] Last Admin: 09/05/18 11:29 Dose: 100 mg Amlodipine Besylate (Norvasc -) 5 mg PO DAILY [facility] Last Admin: 09/05/18 11:29 Dose: 5 mg Atorvastatin Calcium (Lipitor -) 20 mg PO HS [facility] Last Admin: 09/04/18 22:01 Dose: 20 mg Clopidogrel Bisulfate (Plavix -) 75 mg PO DAILY [facility] Last Admin: 09/05/18 11:29 Dose: 75 mg Collagenase (Santyl -) 1 applic TP DAILY [facility]; Protocol Last Admin: 09/04/18 11:12 Dose: 1 applic Heparin Sodium (Porcine) (Heparin -) 5,000 unit SQ BID [facility] Last Admin: 09/05/18 11:30 Dose: 5,000 unit Piperacillin Sod/Tazobactam (Sod 2.25 gm/ Dextrose) 50 mls @ 100 mls/hr IVPB Q8H-IV [facility]; Protocol Last Admin: 09/05/18 11:28 Dose: 100 mls/hr Sodium Chloride (1/2 Normal Saline) 1,000 mls @ 40 mls/hr IV ASDIR [facility] Last Admin: 09/05/18 11:29 Dose: 40 mls/hr Insulin Aspart (Novolog Vial Sliding Scale -) 1 vial SQ ACHS [facility]; Protocol Last Admin: 09/05/18 06:24 Dose: Not Given - Objective Vital Signs: Vital Signs Temperature 98.1 F 09/05/18 06:00 Pulse Rate 79 09/05/18 06:00 Respiratory Rate 20 09/05/18 06:00 Blood Pressure 149/71 09/05/18 06:00 O2 Sat by Pulse Oximetry (%) 97 09/04/18 21:00 Constitutional: Yes: Calm Eyes: Yes: Conjunctiva Clear HENT: Yes: Atraumatic Cardiovascular: Yes: S1, S2 Respiratory: Yes: CTA Bilaterally Gastrointestinal: Yes: Soft Genitourinary: Yes: WNL Musculoskeletal: Yes: Muscle Weakness Edema: No Integumentary: Yes: Venous Stasis Changes Neurological: Yes: Confusion Labs: CBC, BMP 09/05/18 06:00 09/05/18 06:00 Problem List - Problems (1) Diabetes Code(s): E11.9 - TYPE 2 DIABETES MELLITUS WITHOUT COMPLICATIONS Qualifiers: Diabetes mellitus type: type 2 (2) Fall Code(s): W19.XXXA - UNSPECIFIED FALL, INITIAL ENCOUNTER (3) CKD (chronic kidney disease) Code(s): N18.9 - CHRONIC KIDNEY DISEASE, UNSPECIFIED Assessment/Plan Current Medications Generic Name Dose Route Start Last Admin Trade Name Freq PRN Reason Stop Dose Admin Allopurinol 100 mg 08/31/18 10:00 09/05/18 11:29 Zyloprim - PO 100 mg DAILY [facility] Administration Amlodipine Besylate 5 mg 08/31/18 10:00 09/05/18 11:29 Norvasc - PO 5 mg DAILY [facility] Administration Atorvastatin Calcium 20 mg 08/31/18 22:00 09/04/18 22:01 Lipitor - PO 20 mg HS [facility] Administration Clopidogrel Bisulfate 75 mg 08/31/18 10:00 09/05/18 11:29 Plavix - PO 75 mg DAILY [facility] Administration Collagenase 1 applic 08/31/18 12:15 09/04/18 11:12 Santyl - TP 1 applic DAILY [facility] Administration Protocol Heparin Sodium (Porcine) 5,000 unit 08/31/18 10:00 09/05/18 11:30 Heparin - SQ 5,000 unit BID [facility] Administration Piperacillin Sod/Tazobactam 50 mls @ 100 mls/hr 09/01/18 19:30 09/05/18 11:28 Sod 2.25 gm/ Dextrose IVPB 100 mls/hr Q8H-IV [facility] Administration Protocol Sodium Chloride 1,000 mls @ 40 mls/hr 09/03/18 15:05 09/05/18 11:29 1/2 Normal Saline IV 40 mls/hr ASDIR [facility] Administration Insulin Aspart 1 vial 08/31/18 07:00 09/05/18 06:24 Novolog Vial Sliding Scale - SQ Not Given ACHS [facility] Protocol Impression 1. CKD 2. DIOGENES 3. DM 4. hyperlipidemia 5. HTN 6. gout 7. proteinuria 8. s/p fall 9. UTI Plan - cont to monitor renal function - follow spep, oncology eval if positive - will stop fluids as he is eating - will need renal workup - likely progression of renal disease
[2018-09-05] MEDS: COLLAGENASE CLOSTRIDIUM HIST. 30 GRAMS TUBE TP SCH (17:00)
[2018-09-05] MEDS: ATORVASTATIN CA 20 MG TABLET (FP) PO SCH (21:08)
[2018-09-06] MEDS ORDERED: DEXTROSE 5%-WATER - 50 ML IVPB ONE ×2 (01:29→08:44)
[2018-09-06] MEDS ORDERED: PIPERACILLIN/TAZOBACTAM 2.25 GM VIAL IVPB ONE ×2 (01:29→08:43)
[2018-09-06] MEDS: PIPERACILLIN/TAZOB 2.25 GM 2.25 GM in DEXTROSE 5%-WATER - 50 ML IVPB SCH ×2 (01:37→10:41)
[2018-09-06] MEDS: INSULIN SLIDING SCALE (NOVOLOG) 1 VIAL SQ SCH ×2 (06:03→11:40)
[2018-09-06 08:51] LABS: ANION GAP 11 MMOL/L (8-16); BLOOD UREA NITROGEN 41 mg/dL (7-18); CALCIUM 7.8 mg/dL (8.5-10.1); CHLORIDE 111 mmol/L (98-107); CO2 20 mmol/L (21-32); CREATININE 2.8 mg/dL (0.55-1.3); GLUCOSE,RANDOM 89 mg/dL (74-106); POTASSIUM 4.4 mmol/L (3.5-5.1); SODIUM 142 mmol/L (136-145)
--- NOTE | 2018-09-06 10:46 | DS ---
Physical Examination Vital Signs: Vital Signs Temperature 98.2 F 09/06/18 06:00 Pulse Rate 70 09/06/18 06:00 Respiratory Rate 18 09/06/18 06:00 Blood Pressure 148/64 09/06/18 06:00 O2 Sat by Pulse Oximetry (%) 98 09/05/18 21:00 Findings/Remarks: PATIENT SEEN BY SURGERY AND NO BKA OR AKA NEEDED AT THIS TIME WILL GO BACK TO [facility] ON PO ABX AND FOLLOW UP WITH [facility] OUTPATIENT Constitutional: Yes: No Distress Eyes: Yes: WNL HENT: Yes: WNL Neck: Yes: WNL Cardiovascular: Yes: Regular Rate and Rhythm Respiratory: Yes: WNL Gastrointestinal: Yes: Soft Musculoskeletal: Yes: Muscle Weakness Extremities: Yes: Deformity Integumentary: Yes: Pressure Ulcer, Venous Stasis Changes Wound/Incision: Yes: Dressing Dry and Intact, Unapproximated Neurological: Yes: Pre-Existing Deficit ...Motor Strength: RLE Labs: CBC, BMP 09/05/18 06:00 09/06/18 06:15 Discharge Summary Reason For Visit: UTI Current Active Problems Cellulitis (Acute) Diabetes (Acute) Fall (Acute) Procedures: Principal: DOPPLERS/CT SCANS Hospital Course: ADMITTED TREATED FOR RIGHT LOWER EXTREMITY ULCERS AND CRF. NO NEED FOR BKA/AKA AT THIS TIME AND WILL NEED ORAL ABX FOR 10 DAYS AT [facility] AND F/U WITH [facility] Condition: Stable - Instructions Diet, Activity, Other Instructions: NEEDS A FOLLOW UP WITH [facility] IN 3 -4 DAYS ANTIBIOTICS FOR 10 DAYS CHECK CBC AND BMP EVERY 4 DAYS Referrals: Ganesh Miranda MD [Primary Care Provider] - Disposition: LONG-TERM FACILITY - Home Medications Comprehensive Discharge Medication List: Ambulatory Orders Albuterol 2.5/Ipratropium 0.5 [Duoneb -] 1 amp NEB Q6H PRN #0 amp 07/12/17 Allopurinol [Zyloprim -] 100 mg PO DAILY tablet 07/12/17 Amlodipine Besylate [Norvasc -] 5 mg PO DAILY tablet 07/12/17 Atorvastatin Ca [Lipitor] 20 mg PO HS tablet 07/12/17 Clopidogrel Bisulfate [Plavix -] 75 mg PO DAILY tablet 07/12/17 Collagenase Clostridium Hist. [Santyl -] 250 unit TP DAILY 08/31/18 Lisinopril 10 mg PO DAILY 08/31/18 Sodium Hypochlorite [Dakin's Solution 0.25% (Half-Strength)] 473 ml MC DAILY 04/11
[2018-09-06 10:50] VITALS: BP 144/78; PULSE 82; TEMP 0.4
[2018-09-06] MEDS: CLOPIDOGREL BISULFATE 75 MG TABLET (FP) PO SCH (11:36)
[2018-09-06] MEDS: amLODIPine BESYLATE 5 MG TABLET (FP) PO SCH (11:36)
[2018-09-06] MEDS: ALLOPURINOL 100 MG TABLET (FP) PO SCH (11:36)
[2018-09-06] MEDS: HEPARIN NA (PORCINE) 5,000 UNITS/ML 1ML VIAL SQ SCH (11:36)
[2018-09-06] MEDS: COLLAGENASE CLOSTRIDIUM HIST. 30 GRAMS TUBE TP SCH (11:37)
--- NOTE | 2018-09-06 13:53 | PN ---
Progress Note, Physician History of Present Illness: Pt seen and examined at bedside. He is awake and appears comfortable. He denies shortness of breath. - Current Medication List Current Medications: Active Medications Allopurinol (Zyloprim -) 100 mg PO DAILY [facility] Last Admin: 09/06/18 11:36 Dose: 100 mg Amlodipine Besylate (Norvasc -) 5 mg PO DAILY [facility] Last Admin: 09/06/18 11:36 Dose: 5 mg Atorvastatin Calcium (Lipitor -) 20 mg PO HS [facility] Last Admin: 09/05/18 21:08 Dose: 20 mg Clindamycin HCl (Cleocin -) 300 mg PO TID [facility] Last Admin: 09/06/18 13:27 Dose: 300 mg Clopidogrel Bisulfate (Plavix -) 75 mg PO DAILY [facility] Last Admin: 09/06/18 11:36 Dose: 75 mg Collagenase (Santyl -) 1 applic TP DAILY [facility]; Protocol Last Admin: 09/06/18 11:37 Dose: 1 applic Heparin Sodium (Porcine) (Heparin -) 5,000 unit SQ BID [facility] Last Admin: 09/06/18 11:36 Dose: 5,000 unit Piperacillin Sod/Tazobactam (Sod 2.25 gm/ Dextrose) 50 mls @ 100 mls/hr IVPB Q8H-IV [facility]; Protocol Last Admin: 09/06/18 10:41 Dose: 100 mls/hr Insulin Aspart (Novolog Vial Sliding Scale -) 1 vial SQ ACHS [facility]; Protocol Last Admin: 09/06/18 11:40 Dose: Not Given Levofloxacin (Levaquin -) 250 mg PO Q2D [facility] Last Admin: 09/06/18 13:13 Dose: 250 mg - Objective Vital Signs: Vital Signs Temperature 0.4 F L 09/06/18 10:40 Pulse Rate 82 09/06/18 10:40 Respiratory Rate 18 09/06/18 10:40 Blood Pressure 144/78 09/06/18 10:40 O2 Sat by Pulse Oximetry (%) 98 09/05/18 21:00 Constitutional: Yes: Calm Eyes: Yes: Conjunctiva Clear HENT: Yes: Atraumatic Neck: Yes: Supple Cardiovascular: Yes: S1, S2 Respiratory: Yes: CTA Bilaterally Gastrointestinal: Yes: Soft Genitourinary: Yes: WNL Edema: LLE: Trace, RLE: Trace Neurological: Yes: Confusion Labs: CBC, BMP 12/12/18 06:00 09/06/18 06:15 Problem List - Problems (1) Diabetes Code(s): E11.9 - TYPE 2 DIABETES MELLITUS WITHOUT COMPLICATIONS Qualifiers: Diabetes mellitus type: type 2 (2) Fall Code(s): W19.XXXA - UNSPECIFIED FALL, INITIAL ENCOUNTER (3) CKD (chronic kidney disease) Code(s): N18.9 - CHRONIC KIDNEY DISEASE, UNSPECIFIED Assessment/Plan Current Medications Generic Name Dose Route Start Last Admin Trade Name Freq PRN Reason Stop Dose Admin Allopurinol 100 mg 08/31/18 10:00 09/06/18 11:36 Zyloprim - PO 100 mg DAILY [facility] Administration Amlodipine Besylate 5 mg 08/31/18 10:00 09/06/18 11:36 Norvasc - PO 5 mg DAILY [facility] Administration Atorvastatin Calcium 20 mg 08/31/18 22:00 09/05/18 21:08 Lipitor - PO 20 mg HS [facility] Administration Clindamycin HCl 300 mg 09/06/18 14:00 09/06/18 13:27 Cleocin - PO 300 mg TID [facility] Administration Clopidogrel Bisulfate 75 mg 08/31/18 10:00 09/06/18 11:36 Plavix - PO 75 mg DAILY [facility] Administration Collagenase 1 applic 08/31/18 12:15 09/06/18 11:37 Santyl - TP 1 applic DAILY [facility] Administration Protocol Heparin Sodium (Porcine) 5,000 unit 08/31/18 10:00 09/06/18 11:36 Heparin - SQ 5,000 unit BID [facility] Administration Piperacillin Sod/Tazobactam 50 mls @ 100 mls/hr 09/01/18 19:30 09/06/18 10:41 Sod 2.25 gm/ Dextrose IVPB 100 mls/hr Q8H-IV [facility] Administration Protocol Insulin Aspart 1 vial 08/31/18 07:00 09/06/18 11:40 Novolog Vial Sliding Scale - SQ Not Given ACHS [facility] Protocol Levofloxacin 250 mg 09/06/18 12:00 09/06/18 13:13 Levaquin - PO 250 mg Q2D [facility] Administration Laboratory Tests 08/31/18 09/02/18 09/02/18 03:10 07:30 12:00 Urine Protein 2+ H Protein/Creatinin Ratio 0.2955 MARTIN M-Jarrell Pending Serum MARTIN Interpret Pending MARTIN Interpretation Pending IEP IgG Pending IEP IgA Pending IEP IgM Pending LATANYA Screen Pending Free [place] LC, Quant Pending Free Lambda LC, Quant Pending Free [place]/Lambda Ratio Pending Impression 1. CKD 2. DIOGENES 3. DM 4. hyperlipidemia 5. HTN 6. gout 7. proteinuria 8. s/p fall 9. UTI Plan - will need full renal workup as outpt - follow spep and heme eval if positive - cont to monitor renal function - stable off of fluids - likely progression of renal disease - rheum eval for positive latanya
[2018-09-06] MEDS ORDERED: CLINDAMYCIN HCL 150 MG CAPSULE (FP) PO SCH (14:00)
== END 2018-09-06 14:15 | DRG 300 ==
LOC: JER 23:35 → JERBED 08-31 05:53 → J5S 08-31 11:52
PROVIDERS: ADMIT Internal Medicine; ATTEND Family Medicine
DX: E11.51 Type 2 diabetes mellitus with diabetic peripheral angiopathy without gangrene (principal); L03.115 Cellulitis of right lower limb; N39.0 Urinary tract infection, site not specified; L97.919 Non-pressure chronic ulcer of unspecified part of right lower leg with unspecified severity; N17.9 Acute kidney failure, unspecified; E11.621 Type 2 diabetes mellitus with foot ulcer; E87.6 Hypokalemia; I83.019 Varicose veins of right lower extremity with ulcer of unspecified site; F03.90 Unspecified dementia, unspecified severity, without behavioral disturbance, psychotic disturbance, mood disturbance, and anxiety; E78.5 Hyperlipidemia, unspecified; I12.9 Hypertensive chronic kidney disease with stage 1 through stage 4 chronic kidney disease, or unspecified chronic kidney disease; N18.9 Chronic kidney disease, unspecified
CPT/HCPCS: 36415; 70450-TC; 71045-TC-FY; 72125-TC; 73610-TC-RT-FY; 73630-TC-RT-FY; 76775-TC; 80048; 80053; 81003; 81015; 82550; 82553; 82570; 82962; 83036; 83605; 83883; 84155; 84156; 84165; 84484; 85025; 85027; 85651; 86038; 87040; 87070; 87086; 87186; 87205; 93005; 93010; 93970-TC; 97161-GP; 99284-25; G0480; J1644; J7030

== ENCOUNTER 2018-10-29 06:24 | Inpatient (IN) | payer OTHER ==
[2018-10-29] MEDS ORDERED: ACETAMINOPHEN 1000 MG/100 ML VIAL (NON FORMULARY) IVPB ONE (07:01)
--- NOTE | 2018-10-29 07:01 | PDOC ---
History of Present Illness - General Chief Complaint: SIRS, Suspected/Possible Stated Complaint: RAPID A-FIB Time Seen by Provider: 10/29/18 06:59 History Source: EMS, Care Home Records Exam Limitations: Clinical Condition, Other (altered) - History of Present Illness Initial Comments: 10/29/18 07:43 73YOM with h/o ESRD on HD MWF last tx was Monday and was normal, DM, HTN, HLD, prior CVA, COPD, and UTI, who was BIBEMS for original EMS phone report of rapid A-fib, but on [facility] records the only note was fever and vomiting x2 this AM. The patient himself is unable to give any information about his medical history or symptoms, except stating that his abdomen hurts, but he cannot point to the area of pain. The patient has no MOLST or DNR/DNI paperwork with him at the time of presentation to the ED, and there are no active DNR/DNI orders in our system. Past History - Past Medical History Allergies/Adverse Reactions: Allergies Allergy/AdvReac Type Severity Reaction Status Date / Time watermelon Allergy Unknown Verified 10/29/18 06:33 melon Allergy Verified 10/29/18 06:33 No Known Drug Allergies Allergy Verified 10/29/18 06:34 Home Medications: Ambulatory Orders Albuterol 2.5/Ipratropium 0.5 [Duoneb -] 1 amp NEB Q6H PRN #0 amp 07/12/17 Allopurinol [Zyloprim -] 100 mg PO DAILY tablet 07/12/17 Atorvastatin Ca [Lipitor] 20 mg PO HS tablet 07/12/17 Clopidogrel Bisulfate [Plavix -] 75 mg PO DAILY tablet 07/12/17 Collagenase Clostridium Hist. [Santyl -] 250 unit TP DAILY 08/31/18 Lisinopril 10 mg PO DAILY 08/31/18 Collagenase Clostridium Hist. [Santyl -] 1 applic TP DAILY tube 09/06/18 Albuterol Sulfate [Proair Hfa] 2 puff IH Q6H PRN 10/29/18 Escitalopram Oxalate [Lexapro -] 10 mg PO DAILY 10/29/18 Folic Acid/Vit B Complex and C [Dialyvite Tablet] 1 each PO DAILY 10/29/18 Ibuprofen [Advil -] 400 mg PO DAILY 10/29/18 Insulin Lispro [Humalog] 0 unit SQ ACHS 10/29/18 Midodrine HCl 10 mg PO MOWEFR 10/29/18 Sevelamer Carbonate [Renvela] 1,600 mg PO TID 10/29/18 Tamsulosin HCl [Flomax] 0.4 mg PO HS 10/29/18 Warfarin Sodium [Coumadin] 5.5 mg PO HS 10/29/18 Zinc Oxide 20% Topical Oint 454 gm NR BID 10/29/18 CVA: Yes COPD: Yes Dementia: Yes Diabetes: Yes HTN: Yes Hypercholesterolemia: Yes - Suicide/Smoking/Psychosocial Hx Smoking History: Never smoked Have you smoked in the past 12 months: No Information on smoking cessation initiated: No Hx Alcohol Use: No Drug/Substance Use Hx: No Substance Use Type: None Hx Substance Use Treatment: No Review of Systems - Review of Systems Able to Perform ROS?: No (altered) *Physical Exam - Vital Signs Last Vital Signs Temp Pulse Resp BP Pulse Ox 103.7 F H 91 H 22 H 77/46 L 74 L 10/29/18 06:34 10/29/18 06:34 10/29/18 06:34 10/29/18 06:34 10/29/18 06:34 - Physical Exam Comments: 10/29/18 07:58 GENERAL: obtunded, answers very simple questions, not oriented, mild distress HEENT: mostly edentulous, very dry mucous membranes, PERRLA, EOMI, nares with drying blood inside NECK/BACK: no spinal stepoff or deformity, no hematoma, neck supple CHEST WALL: HD port in place RUCW which appears to have slipped out of the insertion site slightly but suture still in place CARDIOVASCULAR: rapid regular rate, capillary refill 4 seconds, extremities wwp , no edema LUNGS/RESPIRATORY: tachypneic, lungs CTAB GI/ABDOMEN: symmetric [id number], normoactive BS, soft, no midline pulsatile masses, no organomegaly : normal external appearance, no lesions, no swelling, non-malodorous EXTREMITIES: chronic appearing muscle atrophy, no acute deformity, no edema SKIN: Left ankle/foot wrapped in Kerlix dressing with small soak through, skin otherwise warm and dry, no pallor, no jaundice, no rash, no bruising, no skin breakdown, no cuts NEUROLOGICAL: Not oriented, CN II-XII grossly intact, no obvious facial droop, moving all extremities and actually grabbing at items with hands, otherwise patient is unable to participate in exam Moderate Sedation - Procedure Monitoring Vital Signs: Procedure Monitoring Vital Signs Temperature 103.7 F H 10/29/18 06:34 Pulse Rate 91 H 10/29/18 06:34 Respiratory Rate 22 H 10/29/18 06:34 Blood Pressure 77/46 L 10/29/18 06:34 O2 Sat by Pulse Oximetry (%) 74 L 10/29/18 06:34 Procedures - Intubation Time of Intubation: 08:30 (Dr. Jamison primary) Intubation Method: orotracheal Blade used: Mac Tube Size (Fr): 7.5 Medications: Etomidate, Rocuronium Tube position @ lip (cm): 24 Tube position confirmed by: Direct visualization, CO2 detector, Chest x-ray, Breath sounds Breath Sounds after Intubation: equal Intubation Complications: no complications Post Intubation Xray: Yes Heart Score/ECG Review #1 Sinus tachycardia, rate 132, QTc calculated at 471 and grossly prolonged, STD in V456, otherwise no ST-T changes ED Treatment Course - LABORATORY CBC & Chemistry Diagram: 11/03/18 05:05 11/03/18 05:05 Medical Decision Making - Critical Care Time Total Critical Care Time (minutes): 120 Critical Care Statement: The care of this patient involved high complexity decision making to prevent further life threatening deterioration of the patient 's condition and/or to evaluate & treat vital organ system(s) failure or risk of failure. - Medical Decision Making 10/29/18 08:49 Documenting retrospectively at this time, as this patient is very ill on presentation to the ED. 73YOM p/w initial EMS report of rapid A-fib, however SNF records noting fever and vomiting x2. PIV has been placed and labs already drawn by night team RN at the time I see the patient at 0700. Patient is unable to provide own medical history or details of symptoms, a bit agitated. Initial Vital Signs Temp Pulse Resp BP Pulse Ox 103.7 F H 91 H 22 H 77/46 L 74 L 10/29/18 06:34 10/29/18 06:34 10/29/18 06:34 10/29/18 06:34 10/29/18 06:34 This SpO2 is measured with poor waveform while on 10 LPM non-rebreather. I increase non-rebreather to 15 LMP. Patient is found to have labile pressures between the 50s systolic and 130s systolic. Patient has had no episodes of vomiting or wretching. He answers simple questions, has altered mental status and is somewhat obtunded. It is determined that although the patient has borderline AMS, we will try BiPAP with close supervision. RT is called for BiPAP as we are able to palpate pulses and his pressures increase to the 130s. EKG is done showing QTc 471 ms calculated, not grossly prolonged, I order 4 mg Zofran, given. Patient with NKDA, I have ordered ofirmev for fever as well. RT then dons BiPAP and patient is watched very carefully for worsening mental status or vomiting. I also order DuoNeb x1 as patient has COPD although this is not thought to be causing his dyspnea. He actually seems to be moving air fairly well and no wheezes. Patient tolerating BiPAP well. Patient given 500 cc NS bolus (gentle as he is HD patient but still needs some given low BP). Laboratory Tests 10/29/18 10/29/18 10/29/18 06:40 06:50 06:50 WBC 14.4 H RBC 3.10 L Hgb 9.2 L Hct 28.7 L MCV 92.5 MCH 29.7 MCHC 32.1 RDW 16.1 H Plt Count 266 MPV 9.9 D Absolute Neuts (auto) 13.2 H Neutrophils % 91.3 H D Lymphocytes % 3.6 L D Monocytes % 4.7 Eosinophils % 0.0 D Basophils % 0.4 Nucleated RBC % 0 PT with INR 142.70 H INR 11.80 H* PTT (Actin FS) 51.1 H VBG pH POC VBG pCO2 POC VBG pO2 Mixed VBG HCO3 Sodium Potassium Chloride Carbon Dioxide Anion Gap BUN Creatinine Creat Clearance w eGFR POC Glucometer Random Glucose Lactic Acid Calcium Total Bilirubin AST ALT Alkaline Phosphatase Troponin I 0.12 H Total Protein Albumin Urine Color Urine Appearance Urine pH Ur Specific [place] Urine Protein Urine Glucose (UA) Urine Ketones Urine Blood Urine Nitrite Urine Bilirubin Urine Urobilinogen Ur Leukocyte Esterase Urine WBC (Auto) Urine RBC (Auto) Ur Epithelial Cells Influenza A (Rapid) Influenza B (Rapid) 10/29/18 10/29/18 10/29/18 06:50 06:50 06:50 WBC RBC Hgb Hct MCV MCH MCHC RDW Plt Count MPV Absolute Neuts (auto) Neutrophils % Lymphocytes % Monocytes % Eosinophils % Basophils % Nucleated RBC % PT with INR INR PTT (Actin FS) VBG pH 7.36 POC VBG pCO2 45.1 POC VBG pO2 21.0 L Mixed VBG HCO3 24.7 Sodium 141 Potassium 4.2 Chloride 103 Carbon Dioxide 25 Anion Gap 12 BUN 53 H Creatinine 8.4 H* Creat Clearance w eGFR 6.27 POC Glucometer Random Glucose 127 H Lactic Acid 2.6 H* Calcium 8.2 L Total Bilirubin 0.4 AST 27 ALT 12 L Alkaline Phosphatase 132 H Troponin I Total Protein 7.8 Albumin 2.1 L Urine Color Urine Appearance Urine pH Ur Specific [place] Urine Protein Urine Glucose (UA) Urine Ketones Urine Blood Urine Nitrite Urine Bilirubin Urine Urobilinogen Ur Leukocyte Esterase Urine WBC (Auto) Urine RBC (Auto) Ur Epithelial Cells Influenza A (Rapid) Influenza B (Rapid) 10/29/18 10/29/18 10/29/18 07:13 07:50 08:00 WBC RBC Hgb Hct MCV MCH MCHC RDW Plt Count MPV Absolute Neuts (auto) Neutrophils % Lymphocytes % Monocytes % Eosinophils % Basophils % Nucleated RBC % PT with INR INR PTT (Actin FS) VBG pH POC VBG pCO2 POC VBG pO2 Mixed VBG HCO3 Sodium Potassium Chloride Carbon Dioxide Anion Gap BUN Creatinine Creat Clearance w eGFR POC Glucometer [id number] Random Glucose Lactic Acid Calcium Total Bilirubin AST ALT Alkaline Phosphatase Troponin I Total Protein Albumin Urine Color [place] Urine Appearance Slcloudy Urine pH 5.0 Ur Specific [place] 1.020 Urine Protein 3+ H Urine Glucose (UA) Negative Urine Ketones Trace H Urine Blood 1+ H Urine Nitrite Negative Urine Bilirubin Negative Urine Urobilinogen Negative Ur Leukocyte Esterase Trace Urine WBC (Auto) 1 Urine RBC (Auto) 1 Ur Epithelial Cells Rare Influenza A (Rapid) Negative Influenza B (Rapid) Negative 10/29/18 09:[address] department. Patient noted to have bleeding within the nares posteriorly, found while acquiring flu swab. Patient's hypoxia improved on SpO2 monitor to 99% However his VBG O2 was found to be in the low 20s. Patient with labile BP and now it is reading 50s/30s on the monitor. Patient is given additional 500 cc NS bolus as his CXR does not show overt pulmonary edema. Patient is given Zosyn 3.375 mg. RT is unable to palpate radial pulses to get ABG (carotid and femoral pulses still palpable). Labs resulted concerning for very supratherapeutic INR. RN finds a 6x5 cm soft mass overlying the distal humerus which may be chronic but may be hematoma. Patient no longer tolerating BiPAP any more, appears more altered. Patient has no SNF paperwork noting DNR/DNI. BP in the 130s systolic and the decision is made to intubate the patient. RSI completed by James Jamison MD with etomidate and jessika, 7.5 ETT placed DL, no complications. Patient subsequently given 5 mg vitamin K IM IM and 2 mg Ativan IV. Taken immediately to CT with RT and myself, tolerated CT and IV contrast well at this time. 10/29/18 09:26 I have ordered midazolam 1 mg/hour drip to up-titrate as needed for adequate sedation. I have also ordered 1 gm vancomycin. 10/29/18 09:42 Call has been placed to Dr. Henriquez who has cared for the patient in the past. I have also paged ICU on-call pager for placement. 10/29/18 10:[address] Henriquez who advises limit the IVF (patient has gotten 1500 at this time). Pressure is 61/40 at this time; will discuss possibility of pressors with Dr. Ivan. Consult order placed to Dr. Henriquez. I have spoken with ICU resident and they will come to evaluate the patient. Vital Signs Temperature 103.7 F H 10/29/18 06:34 Pulse Rate 97 H 10/29/18 10:30 Respiratory Rate 17 10/29/18 10:30 Blood Pressure 87/49 L 10/29/18 10:30 O2 Sat by Pulse Oximetry (%) 100 10/29/18 10:30 10/29/18 10:43 I have spoken with Dr. Clarke whose patients are going to Dr. Hall today. Dr. Hall is already in the ED and I give her sign-out on the patient and verify Decision to Admit order goes to her. Decision to Admit order placed to Dr. Hall, ICU. 10/29/18 11:36 I spoke with [employer], she notes Dr. Montoya is aware of the patient. Consult order placed to Dr. Montoya for ICU placement. *DC/Admit/Observation/Transfer Diagnosis at time of Disposition: Supratherapeutic INR, Cellulitis of foot, Anemia in chronic illness, Acute hypoxemic respiratory failure Sepsis Qualifiers: Sepsis type: sepsis due to unspecified organism Qualified Code(s): A41.9 - Sepsis, unspecified organism Vomiting Qualifiers: Vomiting type: unspecified Vomiting Intractability: non-intractable Nausea presence: unspecified Qualified Code(s): R11.10 - Vomiting, unspecified - Discharge Dispostion Condition at time of disposition: Critical Decision to Admit order: Yes - Referrals - Patient Instructions - Post Discharge Activity
[2018-10-29] MEDS ORDERED: ONDANSETRON 4 MG/2 ML VIAL IVPUSH ONE (07:12)
[2018-10-29 07:13] LABS: VENOUS PC02 45.1 mmHg (38-52); VENOUS PH 7.36 (7.32-7.42)
[2018-10-29] MEDS ORDERED: ONDANSETRON 4 MG/2 ML VIAL ONE (07:15)
[2018-10-29] MEDS ORDERED: ACETAMINOPHEN INJECTION 100 ML IVPB ONE (07:15)
[2018-10-29 07:20] LABS: BASO % 0.4 % (0-2.0); HEMATOCRIT 28.7 % (35.4-49); HEMOGLOBIN 9.2 GM/dL (11.7-16.9); LYMPH % 3.6 % (8-40); MCH 29.7 pg (25.7-33.7); MCHC 32.1 g/dl (32.0-35.9); MEAN CELL VOLUME 92.5 fl (80-96); MEAN PLT VOLUME 9.9 fl (7.5-11.1); MONO % 4.7 % (3.8-10.2); NEUT % 91.3 % (42.8-82.8); PLATELET COUNT 266 K/MM3 (134-434); RDW 16.1 % (11.9-15.9); WHITE BLOOD COUNT 14.4 K/mm3 (4.0-10.0)
[2018-10-29 07:38] LABS: ACTIVATED PTT 51.1 SECONDS (25.2-36.5)
[2018-10-29] MEDS ORDERED: ALBUTEROL SO4 2.5/IPRATROPIUM 0.5 INH SOL 3 ML VIAL.NEB. NEB ONE (07:39)
[2018-10-29] MEDS ORDERED: SODIUM CHLORIDE 0.9% 500 ML INFUS.BAG IV ONE ×3 (07:41→09:33)
[2018-10-29 07:50] LABS: ALBUMIN 2.1 g/dl (3.4-5.0); ALK PHOS 132 U/L (45-117); ANION GAP 12 MMOL/L (8-16); BILIRUBIN,TOTAL 0.4 mg/dL (0.2-1); BLOOD UREA NITROGEN 53 mg/dL (7-18); CALCIUM 8.2 mg/dL (8.5-10.1); CHLORIDE 103 mmol/L (98-107); CO2 25 mmol/L (21-32); GLUCOSE,RANDOM 127 mg/dL (74-106); POTASSIUM 4.2 mmol/L (3.5-5.1); SGOT/AST 27 U/L (15-37); SGPT/ALT 12 U/L (13-61); SODIUM 141 mmol/L (136-145); TOT PROT 7.8 g/dl (6.4-8.2)
[2018-10-29 07:58] LABS: PROTHROMBIN TIME (PATIENT) 142.7 SEC (9.7-13.0)
[2018-10-29 07:59] LABS: INR 11.8 (0.83-1.09)
[2018-10-29] MEDS ORDERED: PIPERACILLIN/TAZOB 3.375 GM 3.375 GM in DEXTROSE 5%-WATER - 50 ML IVPB ONE (08:08)
[2018-10-29] MEDS ORDERED: VANCOMYCIN 1 GM in D5W (PRE-DOCKED) 1,000 MG/250 ML IVPB ONE (08:08)
[2018-10-29] MEDS ORDERED: PIPERACILLIN/TAZOB 3.375 GM 3.375 GM/50 ML BAG IVPB ONE (08:21)
[2018-10-29] MEDS ORDERED: PHYTONADIONE 10 MG/1 ML AMP IVPB ONE (08:22)
[2018-10-29 08:28] LABS: CREATININE 8.4 mg/dL (0.55-1.3)
[2018-10-29 08:29] LABS: URINE APPEARANCE SLCLOUDY; URINE BILIRUBIN NEGATIVE (<2.0 mg/dL); URINE COLOR AMBER; URINE GLUCOSE (UA) NEGATIVE (NEGATIVE); URINE KETONE TRACE (NEGATIVE); URINE LEUK ESTERASE TRACE (NEGATIVE); URINE NITRITE NEGATIVE (NEGATIVE); URINE PROTEIN 3+ (NEGATIVE); URINE UROBILINOGEN NEGATIVE mg/dL (0.2-1.0)
[2018-10-29] MEDS ORDERED: RAPID SEQUENCE INTUBATION KIT NR ONE (08:29)
[2018-10-29 08:34] LABS: EPI CELLS RARE /HPF (FEW)
[2018-10-29] MEDS ORDERED: PHYTONADIONE 10 MG/1 ML AMP ONE (08:48)
[2018-10-29] MEDS ORDERED: LORazepam 2 MG/ML SDV VIAL ONE (08:48)
--- NOTE | 2018-10-29 09:04 | PDOC ---
Attending Attestation - Resident Resident Name: Gloria,Darline - ED Attending Attestation I have performed the following: I have examined & evaluated the patient, The case was reviewed & discussed with the resident, I agree w/resident's findings & plan - HPI HPI: 10/29/18 08:59 73-year-old male with history of end-stage renal disease on Monday/Monday/ Monday dialysis, COPD, chronic leg wounds [facility] with fever and vomiting. Reported rapid atrial fibrillation in route, seen immediately on arrival here febrile and tachycardic. Patient is only complaining of some abdominal pain, denies any chest pain or respiratory distress or headache. - Physicial Exam PE: 10/29/18 09:00 Fever, tachycardia, borderline blood pressure systolic of 105, O2 sat 100% on nonrebreather and BiPAP Alert and responding to verbal briefly following commands, but generally altered Atraumatic Oropharynx with some dry blood but patent without stridor Heart is irregular slight tachycardia, lungs with distant breath sounds but symmetric Abdomen is soft/nondistended, lower abdominal tenderness without guarding or rebound Perineum is clear any infection Right lower extremity with chronic wounds and erythema No focal deficit Right chest dialysis catheter - Critical Care Time Total Critical Care Time: 105 Critical Care Statement: The care of this patient involved high complexity decision making to prevent further life threatening deterioration of the patient 's condition and/or to evaluate & treat vital organ system(s) failure or risk of failure. - Medical Decision Making 10/29/18 09:02 73-year-old male from prison with sepsis, some concerning signs of shock. Rule out superimposed metabolic disarray given end-stage renal. Sepsis protocol initiated Fever control, IV fluid resuscitation, broad-spectrum antibiotics After Tylenol and IV fluids, patient remained altered, protecting airway but and. With treatment and falling off BiPAP, not persistently able to follow commands. Patient was intubated, labs showed leukocytosis, supratherapeutic INR , normal potassium, elevated lactate, slightly elevated troponin. CT head given supratherapeutic with altered mental status, CT chest to rule out possible aspiration pneumonia, CT abdomen and pelvis to rule out peritoneal infectious etiology. See resident procedure note, RSI uncomplicated.
[2018-10-29] MEDS ORDERED: VANCOMYCIN 1 GRAM (PRE-DOCKED) 1,000 MG/250 ML BAG IVPB ONE (09:46)
--- NOTE | 2018-10-29 09:49 | EKG ---
Test Reason : Blood Pressure : / mmHG Vent. Rate : 132 BPM Atrial Rate : 132 BPM P-R Int : 158 ms QRS Dur : 078 ms QT Int : 318 ms P-R-T Axes : 060 049 092 degrees QTc Int : 471 ms SINUS TACHYCARDIA WITH PREMATURE ATRIAL COMPLEXES ABNORMAL ECG WHEN COMPARED WITH ECG OF 31-AUG-2018 01:35, VENT. RATE HAS INCREASED Confirmed by CHERELLE HEARD MD ([id number]) on 10/29/2018 9:48:55 AM Referred By: Confirmed By:CHERELLE HEARD MD
[2018-10-29] MEDS ORDERED: MIDAZOLAM 100 MG/100 ML MG IVPB ONE (10:10)
[2018-10-29 10:15] LABS: ANISOCYTOSIS 1+; MACROCYTOSIS 0; PLATELET ESTIMATE NORMAL
[2018-10-29] MEDS: MIDAZOLAM 100 MG in SODIUM CHLORIDE 100 ML IVPB SCH (10:20)
[2018-10-29 11:45] LABS: ARTERIAL BLOOD GAS BASE EXCESS -1.8 meq/l (-2-2); ARTERIAL BLOOD GAS PCO2 41.8 mmHg (35-45); ARTERIAL BLOOD GAS pH 7.36 (7.35-7.45); CARBOXYHEMOGLOBIN 1.1 gm% (0.5-2.0)
[2018-10-29 11:51] LABS: ALLENS TEST POSITIVE
--- NOTE | 2018-10-29 12:25 | CONSULT ---
Consult - History of Present Illness History of Present Illness: 73yo M with PMH of ESRD (HD on MWF), Afib on coumadin, DM, HTN, HLD, COPD, prior CVA coming from [facility] and found to have fever, tachycardia, hypotension, and hypoxia in the ED. While EMS prior notification specified that the patient was coming for Afib with RVR, [facility] paperwork denoted that the patient came for fever and two episodes of vomiting. Per ED report, the patient acknowledged abdominal pain, but could not provide any more history. - Past Medical History Cardio/Vascular: Yes: HTN, Hyperlipdemia Pulmonary: Yes: COPD Endocrine: Yes: Diabetes Mellitus - Alcohol/Substance Use Hx Alcohol Use: No - Smoking History Smoking history: Never smoked Have you smoked in the past 12 months: No - Social History Usual Living Arrangement: [facility] Home Medications - Allergies Allergies/Adverse Reactions: Allergies Allergy/AdvReac Type Severity Reaction Status Date / Time watermelon Allergy Unknown Verified 10/29/18 06:33 melon Allergy Verified 10/29/18 06:33 No Known Drug Allergies Allergy Verified 10/29/18 06:34 - Home Medications Home Medications: Ambulatory Orders Albuterol 2.5/Ipratropium 0.5 [Duoneb -] 1 amp NEB Q6H PRN #0 amp 07/12/17 Allopurinol [Zyloprim -] 100 mg PO DAILY tablet 07/12/17 Atorvastatin Ca [Lipitor] 20 mg PO HS tablet 07/12/17 Clopidogrel Bisulfate [Plavix -] 75 mg PO DAILY tablet 07/12/17 Collagenase Clostridium Hist. [Santyl -] 250 unit TP DAILY 08/31/18 Lisinopril 10 mg PO DAILY 08/31/18 Collagenase Clostridium Hist. [Santyl -] 1 applic TP DAILY tube 09/06/18 Albuterol Sulfate [Proair Hfa] 2 puff IH Q6H PRN 10/29/18 Escitalopram Oxalate [Lexapro -] 10 mg PO DAILY 10/29/18 Folic Acid/Vit B Complex and C [Dialyvite Tablet] 1 each PO DAILY 10/29/18 Ibuprofen [Advil -] 400 mg PO DAILY 10/29/18 Insulin Lispro [Humalog] 0 unit SQ ACHS 10/29/18 Midodrine HCl 10 mg PO MOWEFR 10/29/18 Sevelamer Carbonate [Renvela] 1,600 mg PO TID 10/29/18 Tamsulosin HCl [Flomax] 0.4 mg PO HS 10/29/18 Warfarin Sodium [Coumadin] 5.5 mg PO HS 10/29/18 Zinc Oxide 20% Topical Oint 454 gm NR BID 10/29/18 Review of Systems Unable to obtain ROS, reason: sedated while intubated Physical Exam Vital Signs: Vital Signs Temperature 97.1 F L 10/29/18 11:03 Pulse Rate 97 H 10/29/18 10:30 Respiratory Rate 17 10/29/18 10:30 Blood Pressure 87/49 L 10/29/18 10:30 O2 Sat by Pulse Oximetry (%) 100 10/29/18 10:30 General: Intubated and sedated Head: No signs of trauma Eyes: PEERL, sclera anicteric ENT: Dry mucus membranes Neck: Supple Lungs: Rhonchorous breath sounds diffusely Cardio: Tachycardic, S1 and S2 present Abdomen: Soft, nontender Extremities: Distal pulses present SKIN: Right ankle/foot wrapped in Kerlix dressing with deformed digits; extensive hemostatic wound along the lateral aspect; grade II sacral ulcer Neurologic: Cranial nerves II through XII grossly intact. Normal speech Labs: CBC, BMP 10/29/18 06:50 10/29/18 06:50 Imaging - Results Chest X-ray: Report Reviewed ( Impression: New right line. No pneumothorax. Increased left lung markings.) Cat Scan: Report Reviewed (HEAD CT: No significant interval change Status post left frontal craniectomy with minimal adjacent cortical and supplementation the left frontal lobe. Moderate atrophy and moderate to marked periventricular chronic microvascular ischemic disease changes. Encephalomalacia in the left posterior medial frontal lobe and its junction with the left parietal lobe, without gross interval change. No gross acute intracranial pathology is identified. Correlate clinically to determine further evaluation and follow-up. CTA: There are moderate limitations related to patient condition. No evidence of aneurysm or dissection of the aorta noted. Right upper lobe collapse and right basilar bronchiectatic change with peribronchial consolidations. Possible hyperdense nodule in the pancreatic tail. Additional evaluation suggested. Ex Cholelithiasis. Retention of stool within the rectal impaction and mild wall thickening is Other findings as above. Clinical correlation advised.) EKG: Report Reviewed (Rate 132, QTc 471, Sinus tachycardia with premature atrial complexes. ST and T wave abnormality, consider lateral ischemia. Abnormal EKG) Assessment/Plan 73yo M with PMH of ESRD (HD on MWF), Afib on coumadin, DM, HTN, HLD, COPD, prior CVA coming from [facility] and found to have fever, tachycardia, hypotension, and hypoxia in the ED. Septic workup in the ED. Initially did well on BiPAP, but ultimately intubated for worsening mental status. BP has been labile and decision made to insert central line and administer pressors, especially since patient has ESRD and fluids should be limited. PLAN NEURO Sedated on midazolam while intubated CV Labile blood pressure -Levophed Elevated Troponin -0.12---->0.21 -trend cardiac profiles History of Afib -hold home coumadin while patient is supratherapeutic History of HTN, HLD -hold home meds while patient is hypotensive PULM Acute respiratory distress, likely secondary to aspiration pneumonia -Intubated -current vent settings: RR 16/ TV 450/ PEEP 5/ FiO2 50 -Vanc/ Zosyn -Sputum culture -Acstle-culture -SpO2>90% History of COPD GI Abdominal pain -CTA abdomen pelvis with "retention of stool", but no acute pathology -Monitor for changes RENAL History of ESRD on dialysis MWF -Renal following -Monitor urine output SKIN L. foot wound -consulted podiatry -continue antibiotics ID Sepsic shock, wound infection of L. foot vs. aspiration pneumonia -qSOFA= 3 -Vanc and Zosyn given in the ED -Vanc level for the AM -consulted ID -castle-culture FEN Limit fluid intake given history of ESRD Follow electrolytes, replete as needed Strict I/O's NPO PPX VTE: SCD's (hold anticoagulation while patient is supratherapeutic) GI: 40 Protonix Disposition: Monitor in the ICU Code status: Full code (per [facility] nurse on the phone)
--- NOTE | 2018-10-29 12:34 | CONSULT ---
Consult Consult Specialty:: Nephrology Reason for Consultation:: ESRD - History of Present Illness Chief Complaint: [facility] History of Present Illness: Pt is a 73 year old male with pmhx of ESRD on MWF schedule with last HD on Monday who was sent in for fever and vomiting. He has histoyr of DM, HTN, HLD, CVA, and COPD. He was found to be hypotensive with bp as low as 50. He was also in respiratory distress that required intubation. He is unable to give history. 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 Medical History Cardio/Vascular: Yes: HTN, Hyperlipdemia Pulmonary: Yes: COPD Renal/: Yes: Renal Failure, Hemodialysis Endocrine: Yes: Diabetes Mellitus - Alcohol/Substance Use Hx Alcohol Use: No - Smoking History Smoking history: Never smoked Have you smoked in the past 12 months: No - Social History Usual Living Arrangement: Senior Living Home Medications - Allergies Allergies/Adverse Reactions: Allergies Allergy/AdvReac Type Severity Reaction Status Date / Time watermelon Allergy Unknown Verified 10/29/18 06:33 melon Allergy Verified 10/29/18 06:33 No Known Drug Allergies Allergy Verified 10/29/18 06:34 - Home Medications Home Medications: Ambulatory Orders Albuterol 2.5/Ipratropium 0.5 [Duoneb -] 1 amp NEB Q6H PRN #0 amp 07/12/17 Allopurinol [Zyloprim -] 100 mg PO DAILY tablet 07/12/17 Atorvastatin Ca [Lipitor] 20 mg PO HS tablet 07/12/17 Clopidogrel Bisulfate [Plavix -] 75 mg PO DAILY tablet 07/12/17 Collagenase Clostridium Hist. [Santyl -] 250 unit TP DAILY 08/31/18 Lisinopril 10 mg PO DAILY 08/31/18 Collagenase Clostridium Hist. [Santyl -] 1 applic TP DAILY tube 09/06/18 Albuterol Sulfate [Proair Hfa] 2 puff IH Q6H PRN 10/29/18 Escitalopram Oxalate [Lexapro -] 10 mg PO DAILY 10/29/18 Folic Acid/Vit B Complex and C [Dialyvite Tablet] 1 each PO DAILY 10/29/18 Ibuprofen [Advil -] 400 mg PO DAILY 10/29/18 Insulin Lispro [Humalog] 0 unit SQ ACHS 10/29/18 Midodrine HCl 10 mg PO MOWEFR 10/29/18 Sevelamer Carbonate [Renvela] 1,600 mg PO TID 10/29/18 Tamsulosin HCl [Flomax] 0.4 mg PO HS 10/29/18 Warfarin Sodium [Coumadin] 5.5 mg PO HS 10/29/18 Zinc Oxide 20% Topical Oint 454 gm NR BID 10/29/18 Family Disease History - Family Disease History Family History: Unable to Obtain Review of Systems Unable to obtain ROS, reason: pt intubated - Review of Systems Constitutional: reports: Fever Physical Exam Vital Signs: Vital Signs Temperature 97.1 F L 10/29/18 11:03 Pulse Rate 97 H 10/29/18 10:30 Respiratory Rate 17 10/29/18 10:30 Blood Pressure 87/49 L 10/29/18 10:30 O2 Sat by Pulse Oximetry (%) 100 10/29/18 10:30 Constitutional: Yes: Calm Eyes: Yes: Conjunctiva Clear HENT: Yes: Atraumatic Cardiovascular: Yes: S1, S2 Respiratory: Yes: Mechanically Ventilated Gastrointestinal: Yes: Soft Renal/: Yes: Incontinence Musculoskeletal: Yes: Other (right foot ulcer) Edema: No Neurological: Yes: Lethargy Labs: CBC, BMP 10/29/18 06:50 10/29/18 06:50 Laboratory Tests 09/04/18 09/05/18 09/06/18 05:35 06:00 06:15 WBC Hgb BUN Creatinine 2.7 H 2.8 H 2.8 H Lactic Acid 10/29/18 10/29/18 10/29/18 06:50 06:50 06:50 WBC 14.4 H Hgb 9.2 L BUN 53 H Creatinine 8.4 H* Lactic Acid 2.6 H* 10/29/18 10:33 WBC Hgb BUN Creatinine Lactic Acid 2.0 Imaging - Results Chest X-ray: Report Reviewed Problem List - Problems (1) Acute hypoxemic respiratory failure Code(s): J96.01 - ACUTE RESPIRATORY FAILURE WITH HYPOXIA (2) ESRD (end stage renal disease) Code(s): N18.6 - END STAGE RENAL DISEASE (3) Sepsis Code(s): A41.9 - SEPSIS, UNSPECIFIED ORGANISM Qualifiers: Sepsis type: sepsis due to unspecified organism Qualified Code(s): A41.9 - Sepsis, unspecified organism Assessment/Plan Current Medications Generic Name Dose Route Start Last Admin Trade Name Kassandra PRN Reason Stop Dose Admin Collagenase 1 applic 10/30/18 10:00 Santyl - TP DAILY CHANTELL Protocol Midazolam HCl 100 mg/ Sodium 100 mls @ 1 mls/hr 10/29/18 09:30 10/29/18 10:20 Chloride IVPB 1 mg/hr TITR CHANTELL 1 mls/hr Administration Protocol 1 MG/HR Norepinephrine Bitartrate 8, 500 mls @ 18.75 mls/hr 10/29/18 15:04 10/29/18 14:00 000 mcg/ Sodium Chloride IV 5 mcg/min TITR CHANTELL 18.75 mls/hr Administration Protocol 5 MCG/MIN Piperacillin Sod/Tazobactam 50 mls @ 100 mls/hr 10/29/18 18:00 Sod 2.25 gm/ Dextrose IVPB Q8H-IV CHANTELL Protocol Impression 1. ESRD 2. acute rep failure 3. DM 4. hyperlipidemia 5. HTN 6. gout 7. proteinuria 8. hypotension/shock 9. sepsis Plan - admit to ICU - vent support - potassium stable - pt is not stable for HD at this point secondary to hypotension - start pressor agents - discussed with ICU team - follow cultures - agree with abx - will follow
--- NOTE | 2018-10-29 13:21 | HP ---
Admitting History and Physical - Primary Care Physician PCP: Filippo Clarke - Admission Chief Complaint: sent in for fever History of Present Illness: 73YOM with h/o ESRD on HD MWF last tx was Monday and was normal, DM, HTN, HLD, prior CVA, COPD, and UTI, who was BIBEMS for original EMS phone report of rapid A-fib, but on [facility] records the only note was fever and vomiting x2 this AM.in ER but was hypoxic placed on bipap didnt tolerate and got altered and was intubated he was give 1.5 litres of fluids zofran ,and zosyn and vancomycin History Source: Medical Record - Past Medical History Cardiovascular: Yes: HTN, Hyperlipdemia Pulmonary: Yes: COPD Endocrine: Yes: Diabetes Mellitus - Smoking History Smoking history: Never smoked Have you smoked in the past 12 months: No - Alcohol/Substance Use Hx Alcohol Use: No Home Medications - Allergies Allergies/Adverse Reactions: Allergies Allergy/AdvReac Type Severity Reaction Status Date / Time watermelon Allergy Unknown Verified 10/29/18 06:33 melon Allergy Verified 10/29/18 06:33 No Known Drug Allergies Allergy Verified 10/29/18 06:34 - Home Medications Home Medications: Ambulatory Orders Albuterol 2.5/Ipratropium 0.5 [Duoneb -] 1 amp NEB Q6H PRN #0 amp 07/12/17 Allopurinol [Zyloprim -] 100 mg PO DAILY tablet 07/12/17 Atorvastatin Ca [Lipitor] 20 mg PO HS tablet 07/12/17 Clopidogrel Bisulfate [Plavix -] 75 mg PO DAILY tablet 07/12/17 Collagenase Clostridium Hist. [Santyl -] 250 unit TP DAILY 08/31/18 Lisinopril 10 mg PO DAILY 08/31/18 Collagenase Clostridium Hist. [Santyl -] 1 applic TP DAILY tube 09/06/18 Albuterol Sulfate [Proair Hfa] 2 puff IH Q6H PRN 10/29/18 Escitalopram Oxalate [Lexapro -] 10 mg PO DAILY 10/29/18 Folic Acid/Vit B Complex and C [Dialyvite Tablet] 1 each PO DAILY 10/29/18 Ibuprofen [Advil -] 400 mg PO DAILY 10/29/18 Insulin Lispro [Humalog] 0 unit SQ ACHS 10/29/18 Midodrine HCl 10 mg PO MOWEFR 10/29/18 Sevelamer Carbonate [Renvela] 1,600 mg PO TID 10/29/18 Tamsulosin HCl [Flomax] 0.4 mg PO HS 10/29/18 Warfarin Sodium [Coumadin] 5.5 mg PO HS 10/29/18 Zinc Oxide 20% Topical Oint 454 gm NR BID 10/29/18 Review of Systems Unable to obtain ROS, reason: intubated and sedated Physical Examination Vital Signs: Vital Signs Temperature 97.1 F L 10/29/18 11:03 Pulse Rate 81 10/29/18 13:13 Respiratory Rate 18 10/29/18 13:13 Blood Pressure 56/41 L 10/29/18 13:13 O2 Sat by Pulse Oximetry (%) 100 10/29/18 13:13 Constitutional: Yes: Calm Neck: Yes: Other (intrubated) Cardiovascular: Yes: S1, S2 Respiratory: Yes: Mechanically Ventilated Gastrointestinal: Yes: Normal Bowel Sounds, Soft Wound/Incision: Yes: Other (dressing opened dry skin open wound on the lateral aspect of foot seen) Labs: CBC, BMP 10/29/18 06:50 10/29/18 06:50 Imaging - Results Cat Scan: Report Reviewed Problem List - Problems (1) Acute hypoxemic respiratory failure Assessment/Plan: intubated/sedated icu monitiring AC mode cxr Code(s): J96.01 - ACUTE RESPIRATORY FAILURE WITH HYPOXIA (2) Supratherapeutic INR Assessment/Plan: got vitamin K in er on coumadin for afib hold coumadin monitor INR Code(s): R79.1 - ABNORMAL COAGULATION PROFILE (3) ESRD (end stage renal disease) Assessment/Plan: to hold HD for now given low bp on pressors renal consult Code(s): N18.6 - END STAGE RENAL DISEASE (4) Wound, open, foot Assessment/Plan: podiatry ID broad abx dvt ppx wound care Code(s): S91.309A - UNSPECIFIED OPEN WOUND, UNSPECIFIED FOOT, INITIAL ENCOUNTER Qualifiers: Laterality: right (5) Sepsis Assessment/Plan: pressor- levophed iv abx intubated sedated cultures pending Code(s): A41.9 - SEPSIS, UNSPECIFIED ORGANISM Qualifiers: Sepsis type: sepsis due to unspecified organism Qualified Code(s): A41.9 - Sepsis, unspecified organism
--- NOTE | 2018-10-29 13:53 | PN ---
Teaching Attending Note Name of Resident: Shanna Aleman ATTENDING PHYSICIAN STATEMENT I saw and evaluated the patient. I reviewed the resident's note and discussed the case with the resident. I agree with the resident's findings and plan as documented. SUBJECTIVE: Pt seen and examined in the ICU. Pt intubated, sedated, unable to provide further history at this time. Briefly, 73yo male with h/o HTN, DM, COPD, ESRD on HD, h/o CVA, atrial fibrillation who was transferred from the half-way for fevers and vomiting. In the ER, clinically deteriorated with worsening mental status hypoxia and subsequently intubated. Found to have a RUL consolidation as well as foot ulcers. OBJECTIVE: Vital Signs Period Temp Pulse Resp BP Sys/Zamorano Pulse Ox Last 24 Hr 97.1 F-103.7 F 81-111 16-22 56-138/40-118 74-100 Intake & Output 10/26/18 10/27/18 10/28/18 10/29/18 23:59 23:59 23:59 23:59 Weight 73.754 kg Gen: intubated, sedated Heart: RRR Lung: bilateral rhonchi Abd: soft, nontender Ext: foot ulcers CBC, BMP 10/29/18 06:50 10/29/18 06:50 Active Medications Midazolam HCl 100 mg/ Sodium (Chloride) 100 mls @ 1 mls/hr IVPB TITR CHANTELL; Protocol Last Admin: 10/29/18 10:20 Dose: 1 mg/hr, 1 mls/hr Norepinephrine Bitartrate 4, (000 mcg/ Dextrose) 500 mls @ 37.5 mls/hr IV TITR CHANTELL; Protocol ASSESSMENT AND PLAN: Acute Hypoxic Respiratory Failure Pneumonia r/o Diabetic Foot Ulcer Infection Septic Shock ESRD on HD Lactic Acidosis +Troponins likely Demand Ischemia Supratherapeutic INR Atrial Fibrillation h/o CVA HTN DM COPD - IV antibiotics to cover health care acquired organisms - f/u cultures, send sputum - IVF boluses as needed - titrate pressors to maintain MAP >65 - wound care - vitamin K given, monitor INR with goal 2-3 - rate control - HD per renal - taper Fio2 to keep SpO2 >90% - DVT prophylaxis - ICU monitoring critical care time spent in reviewing chart, evaluating patient and formulating plan 35 min
[2018-10-29] MEDS ORDERED: NOREPINEPHRINE BITARTRATE 4,000 MCG in DEXTROSE 5%-WATER - 496 ML IV SCH (14:00)
[2018-10-29] MEDS: NOREPINEPHRINE BITARTRATE 8,000 MCG in SODIUM CHLORIDE 492 ML IV SCH (14:00)
[2018-10-29] MEDS ORDERED: NOREPINEPHRINE BITARTRATE 4 MG/4 ML ML IV ONE (14:04)
[2018-10-29] MEDS ORDERED: NOREPINEPHRINE BITARTRATE 8,000 MCG in DEXTROSE 5%-WATER - 492 ML IV SCH (14:15)
[2018-10-29] MEDS ORDERED: PIPERACILLIN/TAZOB 2.25 GM 2.25 GM in DEXTROSE 5%-WATER - 50 ML IVPB SCH (15:00)
[2018-10-29] MEDS ORDERED: PIPERACILLIN/TAZOBACTAM 2.25 GM VIAL IVPB ONE ×2 (16:03→17:55)
[2018-10-29] MEDS ORDERED: DEXTROSE 5%-WATER - 50 ML IVPB ONE ×2 (16:03→17:56)
--- NOTE | 2018-10-29 16:52 | PN ---
Progress Note (short form) - Note Progress Note: ID CONSULT DICTATED SEPSIS/ SEPTIC SHOCK RESP FAILURE R/O HCAP COAGULOPATHY R LE NONHEALING ULCERS HX MRSA AWAIT C/S CONTINUE HEMODYNAMIC/ VENTILATORY SUPPORT EMPIRIC ZOSYN/ VANCOMYCIN ADJUSTED FOR ERSD CRITICAL CARE TIME 35MIN
[2018-10-29] MEDS: PIPERACILLIN/TAZOB 2.25 GM 2.25 GM in DEXTROSE 5%-WATER - 50 ML IVPB SCH (18:00)
--- NOTE | 2018-10-29 19:17 | CONS ---
DATE OF CONSULTATION: DATE OF DICTATION: 10/29/2018 INFECTIOUS DISEASE CONSULTATION INFORMANT: History was obtained from the chart, as patient is presently intubated in the intensive care unit. HISTORY OF PRESENT ILLNESS: He is a [facility] resident. He was transferred to the hospital after reports of fever, nausea, and vomiting. There were reports of atrial fibrillation and complaints of abdominal discomfort. In the emergency room, patient had labored breathing. He was placed on a BiPAP mask. He developed worsening mental status and was ultimately intubated for respiratory failure. His course was complicated by fever to 103.7. CAT scan of the head was performed and showed old left frontal craniectomy, no acute infarct or bleed. His course was further complicated by hypotension requiring pressors. He was transferred to the intensive care unit where he is presently on pressors and intubated on mechanical ventilation. He is awake and arousable. He is able to nod his head to respond to simple questions. He denies any abdominal pain at the present time. A CAT scan of the chest shows extensive right upper lobe atelectasis as well as right lower lobe bronchiectasis. He was empirically treated with vancomycin and Zosyn. Patient has a history of end-stage renal disease and is on hemodialysis. He also has a history of chronic nonhealing right foot ulcers. Cultures in the past have grown mixed organisms including MRSA. PAST MEDICAL HISTORY: Positive for end-stage renal disease on hemodialysis, diabetes mellitus, hypertension, hyperlipidemia, COPD, dementia. ALLERGIES: No known allergies. SOCIAL HISTORY: He is a [facility] resident. No documented tobacco or alcohol use. SYSTEMS REVIEW: Neurologic: Positive for dementia. Cardiac: Positive for atrial fibrillation. Respiratory: As per HPI. Gastrointestinal: Positive for vomiting, no diarrhea. Genitourinary: End-stage renal disease on hemodialysis. LABORATORY DATA: White count 14.4, 88 neutrophils, 7 bands, 3 lymphocytes, hematocrit 28.7, platelet count 266, BUN 53, creatinine 8.4, INR 11.8, lipase 70, total bilirubin 0.4, alkaline phosphatase 132, AST 27. Influenza swab negative. On exam he is awake but very lethargic on the ventilator. He is orally intubated. PHYSICAL EXAMINATION: Vital signs: Temperature 98.8, blood pressure 104/71, pulse 77 regular, respirations 18 per minute. HEENT: Sclerae anicteric. Patient is orally intubated. Cardiovascular: Heart sounds S1, S2. Lungs: Air entry bilaterally. Abdomen: Soft, obese, no tenderness elicited. Extremities: There are areas of superficial ulcerations present on the right foot, both the medial and lateral aspects of the foot. No purulent drainage is noted, though it is somewhat malodorous. The foot is warm, but no appreciable erythema. Chest: Diathesis catheter present in the right upper chest. IMPRESSION: 1. Sepsis/septic shock. 2. Respiratory failure, possible healthcare acquired pneumonia. 3. Bronchiectasis. 4. Exacerbation chronic obstructive pulmonary disease. 5. Coagulopathy. 6. Nonhealing right leg ulcers. 7. History of methicillin-resistant Staphylococcus aureus. Continue hemodynamic and ventilatory support. Empiric vancomycin and Zosyn adjusted for end-stage renal disease for coverage of pulmonary and skin pathogens. Continue supportive measures. Prognosis is guarded. Critical care time spent 35 minutes. Thank you for the kind referral. MARGARET PASCAL M.D. [id number]
[2018-10-30] MEDS ORDERED: PIPERACILLIN/TAZOBACTAM 2.25 GM VIAL IVPB ONE ×3 (01:38→09:27)
[2018-10-30] MEDS ORDERED: DEXTROSE 5%-WATER - 50 ML IVPB ONE ×3 (01:38→09:27)
[2018-10-30] MEDS: PIPERACILLIN/TAZOB 2.25 GM 2.25 GM in DEXTROSE 5%-WATER - 50 ML IVPB SCH ×3 (01:42→17:16)
[2018-10-30 05:41] LABS: ARTERIAL BLD GAS O2 SATURATION 99.8 % (90-98.9); ARTERIAL BLOOD GAS PCO2 41.9 mmHg (35-45); ARTERIAL BLOOD GAS pH 7.37 (7.35-7.45)
[2018-10-30 05:42] LABS: ALLENS TEST POSITIVE
[2018-10-30 06:18] LABS: BASO % 0.5 % (0-2.0); EOS % 0.3 % (0-4.5); HEMOGLOBIN 7.5 GM/dL (11.7-16.9); LYMPH % 9.2 % (8-40); MCHC 32.6 g/dl (32.0-35.9); MEAN PLT VOLUME 9.7 fl (7.5-11.1); MONO % 8.7 % (3.8-10.2); NEUT % 81.3 % (42.8-82.8); PLATELET COUNT 215 K/MM3 (134-434); RDW 16.4 % (11.9-15.9); WHITE BLOOD COUNT 14.8 K/mm3 (4.0-10.0)
[2018-10-30 06:43] LABS: PROTHROMBIN TIME (PATIENT) 95.9 SEC (9.7-13.0)
[2018-10-30 07:19] LABS: ALBUMIN 1.6 g/dl (3.4-5.0); ALK PHOS 111 U/L (45-117); ANION GAP 9 MMOL/L (8-16); BILIRUBIN,TOTAL 0.4 mg/dL (0.2-1); BLOOD UREA NITROGEN 61 mg/dL (7-18); CALCIUM 7.5 mg/dL (8.5-10.1); CHLORIDE 104 mmol/L (98-107); CO2 26 mmol/L (21-32); GLUCOSE,RANDOM 123 mg/dL (74-106); MAGNESIUM 2.1 mg/dL (1.8-2.4); PHOSPHOROUS 2.9 mg/dL (2.5-4.9); POTASSIUM 3.8 mmol/L (3.5-5.1); SGOT/AST 50 U/L (15-37); SGPT/ALT 17 U/L (13-61); SODIUM 139 mmol/L (136-145); TOT PROT 6.5 g/dl (6.4-8.2)
[2018-10-30 07:34] LABS: CREATININE 8.4 mg/dL (0.55-1.3)
[2018-10-30] MEDS ORDERED: PT OWN MED DRAWER 7, Y5N ONE ×3 (08:16→15:17)
[2018-10-30 08:29] LABS: INR 7.96 (0.83-1.09)
--- NOTE | 2018-10-30 08:58 | PN ---
Progress Note, Physician - Current Medication List Current Medications: Active Medications Collagenase (Santyl -) 1 applic TP DAILY CHANTELL; Protocol Midazolam HCl 100 mg/ Sodium (Chloride) 100 mls @ 1 mls/hr IVPB TITR CHANTELL; Protocol Last Titration: 10/29/18 22:00 Dose: 2 mg/hr, 2 mls/hr Norepinephrine Bitartrate 8, (000 mcg/ Sodium Chloride) 500 mls @ 18.75 mls/hr IV TITR CHANTELL; Protocol Last Titration: 10/29/18 22:00 Dose: 10 mcg/min, 37.5 mls/hr Piperacillin Sod/Tazobactam (Sod 2.25 gm/ Dextrose) 50 mls @ 100 mls/hr IVPB Q8H-IV CHANTELL; Protocol Last Admin: 10/30/18 01:42 Dose: 100 mls/hr Pantoprazole Sodium (Protonix Iv) 40 mg IVPUSH DAILY CHANTELL - Objective Vital Signs: Vital Signs Temperature 97.2 F L 10/30/18 06:00 Pulse Rate 50 L 10/30/18 07:30 Respiratory Rate 17 10/30/18 08:26 Blood Pressure 123/63 10/30/18 07:30 O2 Sat by Pulse Oximetry (%) 100 10/30/18 07:39 Cardiovascular: Yes: S1, S2 Respiratory: Yes: Mechanically Ventilated Gastrointestinal: Yes: Normal Bowel Sounds, Soft Labs: CBC, BMP 10/30/18 05:30 10/30/18 05:30 INR, PTT INR 7.96 (0.83-1.09) H* 10/30/18 05:30 Assessment/Plan - Problems (1) Acute hypoxemic respiratory failure Assessment/Plan: intubated/sedated icu monitoring AC mode cxr Code(s): J96.01 - ACUTE RESPIRATORY FAILURE WITH HYPOXIA (2) Supratherapeutic INR Assessment/Plan: got vitamin K in er on coumadin for afib hold coumadin monitor INR Code(s): R79.1 - ABNORMAL COAGULATION PROFILE (3) ESRD (end stage renal disease) Assessment/Plan: to hold HD for now given low bp on pressors renal consult Code(s): N18.6 - END STAGE RENAL DISEASE (4) Wound, open, foot Assessment/Plan: podiatry ID broad abx dvt ppx wound care Code(s): S91.309A - UNSPECIFIED OPEN WOUND, UNSPECIFIED FOOT, INITIAL ENCOUNTER Qualifiers: Laterality: right (5) Sepsis Assessment/Plan: pressor- levophed iv abx intubated sedated cultures pending Code(s): A41.9 - SEPSIS, UNSPECIFIED ORGANISM Qualifiers: Sepsis type: sepsis due to unspecified organism Qualified Code(s): A41.9 - Sepsis, unspecified organism
[2018-10-30] MEDS: COLLAGENASE CLOSTRIDIUM HIST. 30 GRAMS TUBE TP SCH (09:18)
[2018-10-30] MEDS ORDERED: SODIUM CHLORIDE 250 ML IV PRN (09:32)
[2018-10-30] MEDS: PANTOPRAZOLE SODIUM 40 MG VIAL IVPUSH SCH (09:45)
--- NOTE | 2018-10-30 10:03 | PN ---
Progress Note, Physician Chief Complaint: SEDATED ON VENTILATOR TEMPS DOWN AFEBRILE BC GPCCL MULTIPLE BOTTLES VANCO T 11.5 - Current Medication List Current Medications: Active Medications Collagenase (Santyl -) 1 applic TP DAILY CHANTELL; Protocol Last Admin: 10/30/18 09:18 Dose: 1 applic Midazolam HCl 100 mg/ Sodium (Chloride) 100 mls @ 1 mls/hr IVPB TITR CHANTELL; Protocol Last Titration: 10/29/18 22:00 Dose: 2 mg/hr, 2 mls/hr Norepinephrine Bitartrate 8, (000 mcg/ Sodium Chloride) 500 mls @ 18.75 mls/hr IV TITR CHANTELL; Protocol Last Titration: 10/29/18 22:00 Dose: 10 mcg/min, 37.5 mls/hr Piperacillin Sod/Tazobactam (Sod 2.25 gm/ Dextrose) 50 mls @ 100 mls/hr IVPB Q8H-IV CHANTELL; Protocol Last Admin: 10/30/18 09:17 Dose: 100 mls/hr Sodium Chloride (Normal Saline -) 250 mls @ 3,000 mls/hr IV PRN PRN PRN Reason: Hypotension during Dialysis Stop: 10/31/18 09:32 Pantoprazole Sodium (Protonix Iv) 40 mg IVPUSH DAILY CHANTELL Last Admin: 10/30/18 09:45 Dose: 40 mg - Objective Vital Signs: Vital Signs Temperature 97.2 F L 10/30/18 06:00 Pulse Rate 52 L 10/30/18 09:00 Respiratory Rate 16 10/30/18 09:00 Blood Pressure 124/62 10/30/18 09:00 O2 Sat by Pulse Oximetry (%) 100 10/30/18 07:39 Constitutional: Yes: No Distress Eyes: Yes: Conjunctiva Clear Cardiovascular: Yes: Regular Rate and Rhythm, S1, S2 Respiratory: Yes: Mechanically Ventilated Gastrointestinal: Yes: Normal Bowel Sounds, Soft. No: Tenderness Extremities: Yes: Other (+ R FOOT ULCERS) Integumentary: Yes: Other (+ DIALYSIS CATHETER R CHEST) Labs: CBC, BMP 10/30/18 05:30 10/30/18 05:30 INR, PTT INR 7.96 (0.83-1.09) H* 10/30/18 05:30 Assessment/Plan SEPSIS/ SEPTIC SHOCK STAPH BACTEREMIA ? FOOT SOURCE ? CATHETER RESP FAILURE R/O HCAP ACUTE EXACERBATION COPD COAGULOPATHY NON HEALING FOOT ULCERS HX MRSA REPEAT BC REDOSE VANCOMYCIN, REPEAT LEVEL AM ECHO CONTINUE ZOSYN VENTILATORY/ HEMODYNAMIC SUPPORT MAY NEED CATHETER REMOVAL CRITICAL CARE TIME 35MIN
[2018-10-30] MEDS ORDERED: VANCOMYCIN 1 GRAM (PRE-DOCKED) 1,000 MG/250 ML BAG IVPB ONE (10:15)
--- NOTE | 2018-10-30 11:48 | CONSULT ---
Consult Consult Specialty:: Podiatry Reason for Consultation:: ankle wound - History of Present Illness Chief Complaint: unable to verbalize at this time 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 Medical History Cardio/Vascular: Yes: HTN, Hyperlipdemia Pulmonary: Yes: COPD Renal/: Yes: Renal Failure, Hemodialysis Endocrine: Yes: Diabetes Mellitus - Alcohol/Substance Use Hx Alcohol Use: No - Smoking History Smoking history: Never smoked Have you smoked in the past 12 months: No - Social History Usual Living Arrangement: [facility] Home Medications - Allergies Allergies/Adverse Reactions: Allergies Allergy/AdvReac Type Severity Reaction Status Date / Time watermelon Allergy Unknown Verified 10/29/18 06:33 melon Allergy Verified 10/29/18 06:33 No Known Drug Allergies Allergy Verified 10/29/18 06:34 - Home Medications Home Medications: Ambulatory Orders Albuterol 2.5/Ipratropium 0.5 [Duoneb -] 1 amp NEB Q6H PRN #0 amp 07/12/17 Allopurinol [Zyloprim -] 100 mg PO DAILY tablet 07/12/17 Atorvastatin Ca [Lipitor] 20 mg PO HS tablet 07/12/17 Clopidogrel Bisulfate [Plavix -] 75 mg PO DAILY tablet 07/12/17 Collagenase Clostridium Hist. [Santyl -] 250 unit TP DAILY 08/31/18 Lisinopril 10 mg PO DAILY 08/31/18 Collagenase Clostridium Hist. [Santyl -] 1 applic TP DAILY tube 09/06/18 Albuterol Sulfate [Proair Hfa] 2 puff IH Q6H PRN 10/29/18 Escitalopram Oxalate [Lexapro -] 10 mg PO DAILY 10/29/18 Folic Acid/Vit B Complex and C [Dialyvite Tablet] 1 each PO DAILY 10/29/18 Ibuprofen [Advil -] 400 mg PO DAILY 10/29/18 Insulin Lispro [Humalog] 0 unit SQ ACHS 10/29/18 Midodrine HCl 10 mg PO MOWEFR 10/29/18 Sevelamer Carbonate [Renvela] 1,600 mg PO TID 10/29/18 Tamsulosin HCl [Flomax] 0.4 mg PO HS 10/29/18 Warfarin Sodium [Coumadin] 5.5 mg PO HS 10/29/18 Zinc Oxide 20% Topical Oint 454 gm NR BID 10/29/18 Physical Exam Vital Signs: Vital Signs Temperature 94 F L 10/30/18 11:00 Pulse Rate 54 L 10/30/18 11:00 Respiratory Rate 16 10/30/18 11:00 Blood Pressure 110/65 10/30/18 11:00 O2 Sat by Pulse Oximetry (%) 100 10/30/18 07:39 Extremities: Yes: Other (multiple wounds b/l lower extremities,) Labs: CBC, BMP 10/30/18 05:30 10/30/18 05:30 Assessment/Plan om? chronic ankle wounds contracted pvd sepsis Santyl ankle wounds. heel pads b/l. will follow.
[2018-10-30] MEDS ORDERED: PHYTONADIONE 10 MG/1 ML AMP IVPB ONE ×2 (11:49→11:56)
[2018-10-30] MEDS ORDERED: PHYTONADIONE 10 MG/1 ML AMP SQ ONE (11:49)
[2018-10-30] MEDS ORDERED: PHYTONADIONE 5 MG TABLET PO ONE ×2 (12:34→13:30)
[2018-10-30] MEDS ORDERED: BENZOIN/ALOE VERA/STORAX/TOLU 58 ML BOTTLE ONE (13:15)
[2018-10-30] MEDS ORDERED: PHYTONADIONE 5 MG TABLET NR ONE (13:30)
[2018-10-30] MEDS: MIDAZOLAM 100 MG in SODIUM CHLORIDE 100 ML IVPB SCH (13:41)
--- NOTE | 2018-10-30 13:46 | PN ---
Progress Note, Physician History of Present Illness: Pt seen and examined at bedside. He remains in the ICU. He remains intubated. - Current Medication List Current Medications: Active Medications Collagenase (Santyl -) 1 applic TP DAILY CHANTELL; Protocol Last Admin: 10/30/18 09:18 Dose: 1 applic Midazolam HCl 100 mg/ Sodium (Chloride) 100 mls @ 1 mls/hr IVPB TITR CHANTELL; Protocol Last Titration: 10/29/18 22:00 Dose: 2 mg/hr, 2 mls/hr Norepinephrine Bitartrate 8, (000 mcg/ Sodium Chloride) 500 mls @ 18.75 mls/hr IV TITR CHANTELL; Protocol Last Titration: 10/30/18 13:05 Dose: 14.93 mcg/min, 56 mls/hr Piperacillin Sod/Tazobactam (Sod 2.25 gm/ Dextrose) 50 mls @ 100 mls/hr IVPB Q8H-IV CHANTELL; Protocol Last Admin: 10/30/18 09:17 Dose: 100 mls/hr Sodium Chloride (Normal Saline -) 250 mls @ 3,000 mls/hr IV PRN PRN PRN Reason: Hypotension during Dialysis Stop: 10/31/18 09:32 Pantoprazole Sodium (Protonix Iv) 40 mg IVPUSH DAILY CHANTELL Last Admin: 10/30/18 09:45 Dose: 40 mg - Objective Vital Signs: Vital Signs Temperature 94 F L 10/30/18 11:00 Pulse Rate 57 L 10/30/18 13:05 Respiratory Rate 16 10/30/18 13:22 Blood Pressure 80/50 L 10/30/18 13:05 O2 Sat by Pulse Oximetry (%) 100 10/30/18 07:39 Constitutional: Yes: Calm Eyes: Yes: Conjunctiva Clear HENT: Yes: Atraumatic Neck: Yes: Supple Cardiovascular: Yes: S1, S2 Respiratory: Yes: Mechanically Ventilated Gastrointestinal: Yes: Soft Musculoskeletal: Yes: Muscle Weakness Edema: Yes Edema: LLE: Trace, RLE: Trace Wound/Incision: Yes: Dressing Dry and Intact Neurological: Yes: Lethargy Labs: CBC, BMP 10/30/18 05:30 10/30/18 05:30 INR, PTT INR 7.96 (0.83-1.09) H* 10/30/18 05:30 Problem List - Problems (1) Acute hypoxemic respiratory failure Code(s): J96.01 - ACUTE RESPIRATORY FAILURE WITH HYPOXIA (2) ESRD (end stage renal disease) Code(s): N18.6 - END STAGE RENAL DISEASE (3) Sepsis Code(s): A41.9 - SEPSIS, UNSPECIFIED ORGANISM Qualifiers: Sepsis type: sepsis due to unspecified organism Qualified Code(s): A41.9 - Sepsis, unspecified organism Assessment/Plan Current Medications Generic Name Dose Route Start Last Admin Trade Name Freq PRN Reason Stop Dose Admin Collagenase 1 applic 10/30/18 10:00 10/30/18 09:18 Santyl - TP 1 applic DAILY CHANTELL Administration Protocol Epoetin Jose 10,000 unit 10/30/18 14:00 Procrit - IVPUSH 10/30/18 14:01 ONCE ONE Midazolam HCl 100 mg/ Sodium 100 mls @ 1 mls/hr 10/29/18 09:30 10/30/18 13:41 Chloride IVPB Not Given TITR CHANTELL Protocol 1 MG/HR Norepinephrine Bitartrate 8, 500 mls @ 18.75 mls/hr 10/29/18 15:04 10/30/18 13:05 000 mcg/ Sodium Chloride IV 14.93 mcg/min TITR CHANTELL 56 mls/hr Titration Protocol 5 MCG/MIN Piperacillin Sod/Tazobactam 50 mls @ 100 mls/hr 10/29/18 18:00 10/30/18 09:17 Sod 2.25 gm/ Dextrose IVPB 100 mls/hr Q8H-IV CHANTELL Administration Protocol Sodium Chloride 250 mls @ 3,000 mls/hr 10/30/18 09:32 Normal Saline - IV 10/31/18 09:32 PRN PRN Hypotension during Dialysis Pantoprazole Sodium 40 mg 10/30/18 10:00 10/30/18 09:45 Protonix Iv IVPUSH 40 mg DAILY CHANTELL Administration Impression 1. ESRD 2. acute rep failure 3. DM 4. hyperlipidemia 5. HTN 6. gout 7. proteinuria 8. hypotension/shock 9. sepsis Plan - HD today - vent support - follow repeat cultures - unclear source - will likely need to remove permacath, vascular eval - bp is improved - cont abx - will follow
--- NOTE | 2018-10-30 13:55 | PN ---
Teaching Attending Note Name of Resident: Shanna Aleman ATTENDING PHYSICIAN STATEMENT I saw and evaluated the patient. I reviewed the resident's note and discussed the case with the resident. I agree with the resident's findings and plan as documented. SUBJECTIVE: Pt seen and examined in the ICU. Remains intubated, sedated on levophed gtt. Gram positive cocci in clusters growing in blood cultures. OBJECTIVE: Vital Signs Period Temp Pulse Resp BP Sys/Zamorano Pulse Ox Last 24 Hr 94 F-98.2 F 50-84 14-22 61-139/35-72 100-100 Intake & Output 10/27/18 10/28/18 10/29/18 10/30/18 23:59 23:59 23:59 23:59 Intake Total 773.6 327.1 Balance 773.6 327.1 Weight 79.379 kg 97.522 kg Gen: intubated, sedated Heart: RRR Lung: scattered rhonchi Abd: soft, nontender Ext: no edema CBC, BMP 10/30/18 05:30 10/30/18 05:30 Active Medications Collagenase (Santyl -) 1 applic TP DAILY CHANTELL; Protocol Last Admin: 10/30/18 09:18 Dose: 1 applic Epoetin Jose (Procrit -) 10,000 unit IVPUSH ONCE ONE Stop: 10/30/18 14:01 Midazolam HCl 100 mg/ Sodium (Chloride) 100 mls @ 1 mls/hr IVPB TITR CHANTELL; Protocol Last Admin: 10/30/18 13:41 Dose: Not Given Norepinephrine Bitartrate 8, (000 mcg/ Sodium Chloride) 500 mls @ 18.75 mls/hr IV TITR CHANTELL; Protocol Last Titration: 10/30/18 13:05 Dose: 14.93 mcg/min, 56 mls/hr Piperacillin Sod/Tazobactam (Sod 2.25 gm/ Dextrose) 50 mls @ 100 mls/hr IVPB Q8H-IV CHANTELL; Protocol Last Admin: 10/30/18 09:17 Dose: 100 mls/hr Sodium Chloride (Normal Saline -) 250 mls @ 3,000 mls/hr IV PRN PRN PRN Reason: Hypotension during Dialysis Stop: 10/31/18 09:32 Pantoprazole Sodium (Protonix Iv) 40 mg IVPUSH DAILY CHANTELL Last Admin: 10/30/18 09:45 Dose: 40 mg ASSESSMENT AND PLAN: Acute Hypoxic Respiratory Failure Pneumonia r/o Diabetic Foot Ulcer Infection r/o Permacath Infection Gram positive Bacteremia Septic Shock ESRD on HD Lactic Acidosis +Troponins likely Demand Ischemia Supratherapeutic INR Atrial Fibrillation h/o CVA HTN DM COPD - continue antibiotics - f/u cultures - IVF boluses as needed - titrate pressors to maintain MAP >65 - may need to remove permacath - echocardiogram - wound care - monitor INR with goal 2-3 - rate control - HD per renal - taper Fio2 to keep SpO2 >90% - DVT prophylaxis - continue ICU monitoring critical care time spent in reviewing chart, evaluating patient and formulating plan 35 min
[2018-10-30] MEDS ORDERED: EPOETIN ALFA 10,000 UNIT/1 ML VIAL IVPUSH ONE (14:00)
--- NOTE | 2018-10-30 15:14 | PN ---
Progress Note (short form) - Note Progress Note: SUBJECTIVE Patient seen and examined at the bedside. Intubated and sedated. OBJECTIVE Vital Signs Temperature 96.4 F L 10/30/18 12:30 Pulse Rate 64 10/30/18 14:45 Respiratory Rate 21 H 10/30/18 14:45 Blood Pressure 107/55 L 10/30/18 14:45 O2 Sat by Pulse Oximetry (%) 99 10/30/18 09:25 General: Intubated and sedated Head: No signs of trauma Eyes: PEERL, sclera anicteric ENT: Dry mucus membranes Neck: Supple Lungs: Rhonchorous breath sounds diffusely Cardio: Regular rate, S1 and S2 present Abdomen: Soft, nontender Extremities: Distal pulses present SKIN: Right ankle/foot wrapped in Kerlix dressing with deformed digits; extensive hemostatic wound along the lateral aspect; grade II sacral ulcer Neurologic: Sedated ASSESSMENT 73yo M with PMH of ESRD (HD on MWF), Afib on coumadin, DM, HTN, HLD, COPD, prior CVA coming from [facility] and found to have fever, tachycardia, hypotension, and hypoxia in the ED. Septic workup in the ED. Initially did well on BiPAP, but ultimately intubated on 10/29/18 for worsening mental status. On levophed for labile blood pressure. HOD #2. PLAN NEURO Sedated on midazolam while intubated CV Labile blood pressure Elevated INR, 11.8---->7.96 Elevated Troponins, 0.12---->0.21---->0.11 History of Afib History of HTN, HLD -On levophed, plan to taper down -Vitamin K and FFP ordered -repeat PT/INR afterwards -hold home coumadin while patient is supratherapeutic -hold home HTN, HLD meds while patient is hypotensive -ECHO pending PULM Acute respiratory distress, likely secondary to pneumonia -Intubated -current vent settings: RR 16/ TV 450/ PEEP 5/ FiO2 30 -Plan spontaneous breathing trial for tomorrow -Vanc/ Zosyn -Sputum culture -Castle-culture, blood culture with gm+ bacteremia -SpO2>90% History of COPD GI Abdominal pain -CTA abdomen pelvis with "retention of stool", but no acute pathology -Monitor for changes RENAL History of ESRD on dialysis MWF -Renal following -Monitor urine output -dialyzed 10/30/18 SKIN L. foot wound -podiatry following -continue antibiotics ID Sepsic shock, wound infection of L. foot vs. aspiration pneumonia -qSOFA= 3 -Vanc and Zosyn given in the ED -Vanc level for the AM -ID following -castle-culture, blood culture with gm+ bacteremia -repeat blood cultures -may need catheter removal -temperature is low, 96.4, placed on Niurka hugger FEN Limit fluid intake given history of ESRD Follow electrolytes, replete as needed Strict I/O's NPO, plan to start NG feeds tomorrow PPX VTE: SCD's (hold anticoagulation while patient is supratherapeutic) GI: 40 Protonix Disposition: Monitor in the ICU Code status: Full code (per [facility] nurse on the phone)
[2018-10-30] MEDS: NOREPINEPHRINE BITARTRATE 8,000 MCG in SODIUM CHLORIDE 492 ML IV SCH (15:18)
[2018-10-30 18:45] LABS: BASO % 0.3 % (0-2.0); EOS % 0.3 % (0-4.5); HEMATOCRIT 24.1 % (35.4-49); HEMOGLOBIN 7.7 GM/dL (11.7-16.9); LYMPH % 6.9 % (8-40); MCH 29.2 pg (25.7-33.7); MEAN CELL VOLUME 91.1 fl (80-96); MEAN PLT VOLUME 9.5 fl (7.5-11.1); NEUT % 84.5 % (42.8-82.8); PLATELET COUNT 205 K/MM3 (134-434); RBC 2.65 M/mm3 (4.00-5.60); RDW 16.6 % (11.9-15.9); WHITE BLOOD COUNT 13.4 K/mm3 (4.0-10.0)
[2018-10-30 19:03] LABS: INR 3.77 (0.83-1.09); PROTHROMBIN TIME (PATIENT) 45.1 SEC (9.7-13.0)
[2018-10-30] MEDS ORDERED: ACETAMINOPHEN 1000 MG/100 ML VIAL (NON FORMULARY) IVPB ONE (22:01)
[2018-10-31] MEDS ORDERED: DEXTROSE 5%-WATER - 50 ML IVPB ONE ×3 (02:19→16:49)
[2018-10-31] MEDS ORDERED: PIPERACILLIN/TAZOBACTAM 2.25 GM VIAL IVPB ONE ×3 (02:19→16:49)
[2018-10-31] MEDS: PIPERACILLIN/TAZOB 2.25 GM 2.25 GM in DEXTROSE 5%-WATER - 50 ML IVPB SCH ×3 (02:22→17:06)
[2018-10-31 06:54] LABS: BASO % 0.4 % (0-2.0); EOS % 0.1 % (0-4.5); HEMATOCRIT 21.5 % (35.4-49); HEMOGLOBIN 7.2 GM/dL (11.7-16.9); MCH 30.3 pg (25.7-33.7); MCHC 33.3 g/dl (32.0-35.9); MEAN CELL VOLUME 91.2 fl (80-96); MEAN PLT VOLUME 9.9 fl (7.5-11.1); NEUT % 75.5 % (42.8-82.8); PLATELET COUNT 199 K/MM3 (134-434); RBC 2.36 M/mm3 (4.00-5.60); RDW 16.4 % (11.9-15.9); WHITE BLOOD COUNT 13.8 K/mm3 (4.0-10.0)
[2018-10-31] MEDS ORDERED: MIDAZOLAM 100 MG/100 ML MG IVPB ONE (06:59)
[2018-10-31] MEDS: MIDAZOLAM 100 MG in SODIUM CHLORIDE 100 ML IVPB SCH ×2 (07:30→09:30)
[2018-10-31 07:34] LABS: INR 2.73 (0.83-1.09); PROTHROMBIN TIME (PATIENT) 32.6 SEC (9.7-13.0)
[2018-10-31 07:37] LABS: ACTIVATED PTT 46.5 SECONDS (25.2-36.5)
[2018-10-31 07:55] LABS: ALBUMIN 1.6 g/dl (3.4-5.0); ALK PHOS 112 U/L (45-117); ANION GAP 8 MMOL/L (8-16); BILIRUBIN,TOTAL 0.3 mg/dL (0.2-1); BLOOD UREA NITROGEN 26 mg/dL (7-18); CALCIUM 8.3 mg/dL (8.5-10.1); CHLORIDE 107 mmol/L (98-107); CO2 28 mmol/L (21-32); CREATININE 4.5 mg/dL (0.55-1.3); GLUCOSE,RANDOM 110 mg/dL (74-106); MAGNESIUM 1.8 mg/dL (1.8-2.4); POTASSIUM 3.5 mmol/L (3.5-5.1); SGOT/AST 37 U/L (15-37); SGPT/ALT 21 U/L (13-61); SODIUM 143 mmol/L (136-145); TOT PROT 6.2 g/dl (6.4-8.2)
[2018-10-31] MEDS ORDERED: VANCOMYCIN 1 GRAM (PRE-DOCKED) 1,000 MG/250 ML BAG IVPB ONE (09:45)
[2018-10-31] MEDS: PANTOPRAZOLE SODIUM 40 MG VIAL IVPUSH SCH (09:51)
--- NOTE | 2018-10-31 09:54 | PN ---
Progress Note, Physician Chief Complaint: SEDATED ON VENTILATOR TEMPS DOWN HYPOTHERMIC HYPOTENSIVE ON PRESSORS- BEING TAPERED BC PRESUMED MRSA REPEAT BC + GPCCL VANCO 16 ECHO PENDING - Current Medication List Current Medications: Active Medications Collagenase (Santyl -) 1 applic TP DAILY CHANTELL; Protocol Last Admin: 10/30/18 09:18 Dose: 1 applic Midazolam HCl 100 mg/ Sodium (Chloride) 100 mls @ 1 mls/hr IVPB TITR CHANTELL; Protocol Last Admin: 10/31/18 07:30 Dose: 2 mg/hr, 2 mls/hr Norepinephrine Bitartrate 8, (000 mcg/ Sodium Chloride) 500 mls @ 18.75 mls/hr IV TITR CHANTELL; Protocol Last Titration: 10/31/18 07:44 Dose: 7.5 mcg/min, 28.12 mls/hr Piperacillin Sod/Tazobactam (Sod 2.25 gm/ Dextrose) 50 mls @ 100 mls/hr IVPB Q8H-IV CHANTELL; Protocol Last Admin: 10/31/18 02:22 Dose: 100 mls/hr Sodium Chloride (Normal Saline -) 250 mls @ 3,000 mls/hr IV PRN PRN PRN Reason: Hypotension during Dialysis Stop: 10/31/18 09:32 Vancomycin HCl (Vancomycin (Pre-Docked)) 1,000 mg in 250 mls @ 166.667 mls/hr IVPB ONCE ONE; Protocol Stop: 10/31/18 11:14 Pantoprazole Sodium (Protonix Iv) 40 mg IVPUSH DAILY CHANTELL Last Admin: 10/30/18 09:45 Dose: 40 mg - Objective Vital Signs: Vital Signs Temperature 96.8 F L 10/31/18 08:56 Pulse Rate 62 10/31/18 08:56 Respiratory Rate 15 10/31/18 08:56 Blood Pressure 123/62 10/31/18 08:56 O2 Sat by Pulse Oximetry (%) 100 10/31/18 08:35 Constitutional: Yes: No Distress Eyes: Yes: Conjunctiva Clear Cardiovascular: Yes: Regular Rate and Rhythm, S1, S2 Respiratory: Yes: Mechanically Ventilated Gastrointestinal: Yes: Normal Bowel Sounds, Soft, Abdomen, Obese. No: Tenderness Extremities: Yes: Other (+ CHRONIC R FOOT ULCERS) Edema: Yes Integumentary: Yes: Other (DIALYSIS CATHETER R CHEST) Labs: CBC, BMP 10/31/18 05:30 10/31/18 05:30 INR, PTT INR 2.73 (0.83-1.09) H 10/31/18 05:30 Assessment/Plan SEPSIS/ SEPTIC SHOCK STAPH BACTEREMIA PRESUMED MRSA ? FOOT SOURCE ? CATHETER RESP FAILURE R/O HCAP ACUTE EXACERBATION COPD COAGULOPATHY NON HEALING FOOT ULCERS HX MRSA REPEAT BC STILL + REDOSE VANCOMYCIN AWAIT FINAL C/S ? DAPTOMYCIN ECHO CONTINUE ZOSYN VENTILATORY/ HEMODYNAMIC SUPPORT CATHETER REMOVAL CRITICAL CARE TIME 35MIN DISCUSSED WITH HOUSESTAFF
--- NOTE | 2018-10-31 09:55 | PN ---
Progress Note, Physician - Current Medication List Current Medications: Active Medications Collagenase (Santyl -) 1 applic TP DAILY CHANTELL; Protocol Last Admin: 10/30/18 09:18 Dose: 1 applic Midazolam HCl 100 mg/ Sodium (Chloride) 100 mls @ 1 mls/hr IVPB TITR CHANTELL; Protocol Last Admin: 10/31/18 07:30 Dose: 2 mg/hr, 2 mls/hr Norepinephrine Bitartrate 8, (000 mcg/ Sodium Chloride) 500 mls @ 18.75 mls/hr IV TITR CHANTELL; Protocol Last Titration: 10/31/18 07:44 Dose: 7.5 mcg/min, 28.12 mls/hr Piperacillin Sod/Tazobactam (Sod 2.25 gm/ Dextrose) 50 mls @ 100 mls/hr IVPB Q8H-IV CHANTELL; Protocol Last Admin: 10/31/18 09:47 Dose: 100 mls/hr Sodium Chloride (Normal Saline -) 250 mls @ 3,000 mls/hr IV PRN PRN PRN Reason: Hypotension during Dialysis Stop: 10/31/18 09:32 Vancomycin HCl (Vancomycin (Pre-Docked)) 1,000 mg in 250 mls @ 166.667 mls/hr IVPB ONCE ONE; Protocol Stop: 10/31/18 11:14 Last Admin: 10/31/18 09:54 Dose: 166.667 mls/hr Pantoprazole Sodium (Protonix Iv) 40 mg IVPUSH DAILY CHANTELL Last Admin: 10/31/18 09:51 Dose: 40 mg - Objective Vital Signs: Vital Signs Temperature 96.8 F L 10/31/18 08:56 Pulse Rate 62 10/31/18 08:56 Respiratory Rate 15 10/31/18 08:56 Blood Pressure 123/62 10/31/18 08:56 O2 Sat by Pulse Oximetry (%) 100 10/31/18 08:35 Cardiovascular: Yes: S1, S2 Respiratory: Yes: Diminished, Mechanically Ventilated, Rhonchi Gastrointestinal: Yes: Normal Bowel Sounds, Soft Labs: CBC, BMP 10/31/18 05:30 10/31/18 05:30 INR, PTT INR 2.73 (0.83-1.09) H 10/31/18 05:30 Assessment/Plan - Problems (1) Acute hypoxemic respiratory failure Assessment/Plan: intubated/sedated icu monitoring AC mode cxr Code(s): J96.01 - ACUTE RESPIRATORY FAILURE WITH HYPOXIA (2) Supratherapeutic INR Assessment/Plan: got vitamin K in er on coumadin for afib hold Coumadin monitor INR Code(s): R79.1 - ABNORMAL COAGULATION PROFILE (3) ESRD (end stage renal disease) Assessment/Plan: HD Per renal renal consult Code(s): N18.6 - END STAGE RENAL DISEASE (4) Wound, open, foot Assessment/Plan: podiatry ID broad abx dvt ppx wound care Code(s): S91.309A - UNSPECIFIED OPEN WOUND, UNSPECIFIED FOOT, INITIAL ENCOUNTER Qualifiers: Laterality: right (5) Sepsis Assessment/Plan: pressor- levophed iv abx intubated sedated cultures pending Code(s): A41.9 - SEPSIS, UNSPECIFIED ORGANISM Qualifiers: Sepsis type: sepsis due to unspecified organism Qualified Code(s): A41.9 - Sepsis, unspecified organism (6) Anemia Assessment/Plan: Monitor if further drop will need prbc today otherwise prbc in am
[2018-10-31 10:14] LABS: ARTERIAL BLD GAS O2 SATURATION 98.4 % (90-98.9); ARTERIAL BLOOD GAS BASE EXCESS 1.4 meq/l (-2-2); ARTERIAL BLOOD GAS PCO2 46.2 mmHg (35-45); ARTERIAL BLOOD GAS pH 7.37 (7.35-7.45)
[2018-10-31 10:17] LABS: ALLENS TEST POSITIVE
[2018-10-31] MEDS: COLLAGENASE CLOSTRIDIUM HIST. 30 GRAMS TUBE TP SCH (10:41)
[2018-10-31 11:53] LABS: BASO % 0.5 % (0-2.0); EOS % 0.1 % (0-4.5); HEMATOCRIT 22.7 % (35.4-49); HEMOGLOBIN 7.4 GM/dL (11.7-16.9); LYMPH % 9.4 % (8-40); MCH 30.1 pg (25.7-33.7); MCHC 32.6 g/dl (32.0-35.9); MEAN CELL VOLUME 92.5 fl (80-96); MEAN PLT VOLUME 9.6 fl (7.5-11.1); MONO % 8.6 % (3.8-10.2); NEUT % 81.4 % (42.8-82.8); PLATELET COUNT 187 K/MM3 (134-434); RBC 2.45 M/mm3 (4.00-5.60); RDW 16.6 % (11.9-15.9); WHITE BLOOD COUNT 14.2 K/mm3 (4.0-10.0)
--- NOTE | 2018-10-31 12:26 | PROC ---
Procedure Note Procedure: Patient with + blood cultures. Needs Permacath removed. Intubated/sedated INR 2.3 Right chest prepped and draped in sterile fashion. Cuff of PC is right at skins edge. Minimal blunt dissection to free up the cuff. Catheter removed with distal tip intact. Tip of catheter sent for culture. Direct pressure held for minimum of 5 mins with + hemostasis Pressure dressing applied. Tolerated procedure well. Vascular Surgery to remain on standby should the patient need acute access for HD.
--- NOTE | 2018-10-31 12:41 | PN ---
Teaching Attending Note Name of Resident: Wesley Goyal ATTENDING PHYSICIAN STATEMENT I saw and evaluated the patient. I reviewed the resident's note and discussed the case with the resident. I agree with the resident's findings and plan as documented. SUBJECTIVE: Pt seen and examined in the ICU. Remains intubated, sedated. On lower dose levophed gtt. Blood cultures with presumptive MRSA. OBJECTIVE: Vital Signs Period Temp Pulse Resp BP Sys/Zamorano Pulse Ox Last 24 Hr 94 F-101.4 F 56-102 12-25 80-139/49-65 96-100 Intake & Output 10/28/18 10/29/18 10/30/18 10/31/18 23:59 23:59 23:59 23:59 Intake Total 773.6 1753.1 648 Balance 773.6 1753.1 648 Weight 79.379 kg 97.522 kg Gen: intubated, sedated Heart: RRR Lung: scattered rhonchi Abd: soft, nontender Ext: no edema, +ulcers CBC, BMP 10/31/18 11:49 10/31/18 05:30 Active Medications Collagenase (Santyl -) 1 applic TP DAILY CHANTELL; Protocol Last Admin: 10/31/18 10:41 Dose: 1 applic Midazolam HCl 100 mg/ Sodium (Chloride) 100 mls @ 1 mls/hr IVPB TITR CHANTELL; Protocol Last Titration: 10/31/18 11:00 Dose: 0 mg/hr, 0 mls/hr Norepinephrine Bitartrate 8, (000 mcg/ Sodium Chloride) 500 mls @ 18.75 mls/hr IV TITR CHANTELL; Protocol Last Titration: 10/31/18 11:43 Dose: 4 mcg/min, 15 mls/hr Piperacillin Sod/Tazobactam (Sod 2.25 gm/ Dextrose) 50 mls @ 100 mls/hr IVPB Q8H-IV CHANTELL; Protocol Last Admin: 10/31/18 09:47 Dose: 100 mls/hr Sodium Chloride (Normal Saline -) 250 mls @ 3,000 mls/hr IV PRN PRN PRN Reason: Hypotension during Dialysis Stop: 10/31/18 09:32 Pantoprazole Sodium (Protonix Iv) 40 mg IVPUSH DAILY CHANTELL Last Admin: 10/31/18 09:51 Dose: 40 mg Warfarin Sodium (Coumadin -) 5 mg PO ONCE@1800 ONE Stop: 10/31/18 18:01 ASSESSMENT AND PLAN: Acute Hypoxic Respiratory Failure Pneumonia r/o Diabetic Foot Ulcer Infection r/o Permacath Infection Gram positive Bacteremia Septic Shock ESRD on HD Lactic Acidosis +Troponins likely Demand Ischemia Supratherapeutic INR Atrial Fibrillation h/o CVA HTN DM COPD - continue antibiotics - f/u pending cultures - IVF boluses as needed - titrate pressors to maintain MAP >65 - remove permacath - echocardiogram - wound care - monitor INR with goal 2-3 - rate control - HD per renal - taper Fio2 to keep SpO2 >90% - DVT prophylaxis - continue ICU monitoring critical care time spent in reviewing chart, evaluating patient and formulating plan 35 min
[2018-10-31 12:48] LABS: ANISOCYTOSIS 0; MACROCYTOSIS 0; PLATELET ESTIMATE NORMAL
--- NOTE | 2018-10-31 13:11 | PN ---
Progress Note (short form) - Note Progress Note: Patient seen and examined at bedside Hypothermic all day yesterday and then Febrile last night Remains on pressors although they are being weaned Vital Signs Temperature 96.5 F L 10/31/18 12:00 Pulse Rate 61 10/31/18 12:00 Respiratory Rate 25 H 10/31/18 12:22 Blood Pressure 110/60 10/31/18 12:00 O2 Sat by Pulse Oximetry (%) 96 10/31/18 12:22 Intake & Output 10/30/18 10/31/18 10/31/18 23:59 11:59 23:59 Intake Total 1426 648 Balance 1426 648 Intake: IV 776 248 Levophed - 8,000 Mcg In 750 236 Normal Saline - 492 ml @ 5 MCG/MIN 18.75 mls/hr IV TITR CHANTELL Rx#:[id number] Versed - 100 mg In Normal 26 12 Saline - 100 ml @ 1 MG/ HR 1 mls/hr IVPB TITR CHANTELL Rx#:[id number] IVPB 500 350 Tube Irrigant 150 50 Other: Voiding Method Diaper Diaper # Unmeasured Voids Void 0 0 Bowel Movement No Yes # Bowel Movements 1 PE: NAD Intubated and Sedated PERRLA Dry Mucous Membranes Bronchial breath sounds/Coarse breath sounds Soft non tender non distended Trace RLE extremity Edema. Right food wound dressing C/D/I. Right heal ulcer 10/30/18 10/30/18 10/30/18 05:30 13:00 18:10 WBC 13.4 H RBC 2.65 L Hgb 7.7 L Hct 24.1 L MCV 91.1 MCHC 32.0 RDW 16.6 H Plt Count 205 Neutrophils % 84.5 H Lymphocytes % 6.9 L D Monocytes % 8.0 Eosinophils % 0.3 Basophils % 0.3 INR Sodium Potassium Chloride Carbon Dioxide Anion Gap BUN Creatinine Blood Type A POSITIVE A POSITIVE Antibody Screen Negative 10/30/18 10/31/18 10/31/18 18:10 05:30 05:30 WBC 13.8 H RBC 2.36 L Hgb 7.2 L Hct 21.5 L MCV 91.2 MCHC 33.3 RDW 16.4 H Plt Count 199 Neutrophils % 75.5 Lymphocytes % 13.0 D Monocytes % 11.0 H Eosinophils % 0.1 Basophils % 0.4 INR 3.77 H 2.73 H Sodium Potassium Chloride Carbon Dioxide Anion Gap BUN Creatinine Blood Type Antibody Screen 10/31/18 10/31/18 05:30 11:49 WBC 14.2 H RBC 2.45 L Hgb 7.4 L Hct 22.7 L MCV 92.5 MCHC 32.6 RDW 16.6 H Plt Count 187 Neutrophils % 81.4 Lymphocytes % 9.4 D Monocytes % 8.6 Eosinophils % 0.1 Basophils % 0.5 INR Sodium 143 Potassium 3.5 Chloride 107 Carbon Dioxide 28 Anion Gap 8 BUN 26 H Creatinine 4.5 H Blood Type Antibody Screen 10/30/18 13:00 Blood Culture - Preliminary Blood - Pre-Dialysis Pending Organism 10/30/18 10:40 Blood Culture - Preliminary Blood - Peripheral Venous Pending Organism 10/30/18 10:25 Blood Culture - Preliminary Blood - Peripheral Venous Pending Organism 10/30/18 15:00 Gram Stain - Pending Sputum - Endotrachea Suction/Ventilator Sputum Culture - Pending 10/29/18 06:50 Blood Culture - Preliminary Blood - Peripheral Venous Staphylococcus Latex Coag Pos 10/29/18 06:50 Blood Culture - Preliminary Blood - Peripheral Venous Presumptive Mrsa (Pbp2a Pos) 10/29/18 08:00 Urine Culture - Final Urine - Urine Clean Catch NO GROWTH OBTAINED 73M PMH of ESRD (HD on MWF), Afib on coumadin, DM, HTN, HLD, COPD, history of CVA presents from alf with septic shock secondary to bacteremia and pneumonia. Problem List: Septic Shock secondary to bacteremia Healthcare acquired pneumonia Gram Positive Bacteremia possible CLABSI from permacath Acute Hypoxic Respiratory Failure ESRD on HD Lactic Acidosis Demand Ischemia/Troponinemia Supratherapeutic INR on coumadin Atrial Fibrillation on coumadin history of CVA COPD HLD HTN DM Anemia Plan: Continue Current antibiotics-on Zosyn Vancomycin Dosed by Level will repeat BCx tomorrow per ID to assess for clearance ECHO to assess possibility of Vegetations as a cause for bacteremia INR now 2.7 and will restart Coumadin today at 5mg HD per Nephrology GI PPx with Protonix DVT PPx with Coumadin D/C permacath - will consult Vascular Surgery-Tip sent for Culture wean off pressors Hold sedation and SBT today. Possible extubation Wound care to bilateral lower extremities transfuse 1 unit PRBC Trend CBC Will start tube feeds if not extubated today Case discussed with Dr. Montoya CCTIme 36 minutes
--- NOTE | 2018-10-31 14:01 | PN ---
Progress Note, Physician History of Present Illness: Pt seen and examined at bedside. He remains in the ICU. He is intubated. He has positive blood cultures. - Current Medication List Current Medications: Active Medications Collagenase (Santyl -) 1 applic TP DAILY CHANTELL; Protocol Last Admin: 10/31/18 10:41 Dose: 1 applic Midazolam HCl 100 mg/ Sodium (Chloride) 100 mls @ 1 mls/hr IVPB TITR CHANTELL; Protocol Last Titration: 10/31/18 11:00 Dose: 0 mg/hr, 0 mls/hr Norepinephrine Bitartrate 8, (000 mcg/ Sodium Chloride) 500 mls @ 18.75 mls/hr IV TITR CHANTELL; Protocol Last Titration: 10/31/18 13:24 Dose: 3 mcg/min, 11.25 mls/hr Piperacillin Sod/Tazobactam (Sod 2.25 gm/ Dextrose) 50 mls @ 100 mls/hr IVPB Q8H-IV CHANTELL; Protocol Last Admin: 10/31/18 09:47 Dose: 100 mls/hr Sodium Chloride (Normal Saline -) 250 mls @ 3,000 mls/hr IV PRN PRN PRN Reason: Hypotension during Dialysis Stop: 10/31/18 09:32 Pantoprazole Sodium (Protonix Iv) 40 mg IVPUSH DAILY CHANTELL Last Admin: 10/31/18 09:51 Dose: 40 mg Warfarin Sodium (Coumadin -) 5 mg PO ONCE@1800 ONE Stop: 10/31/18 18:01 - Objective Vital Signs: Vital Signs Temperature 96.5 F L 10/31/18 12:00 Pulse Rate 58 L 10/31/18 13:24 Respiratory Rate 25 H 10/31/18 12:22 Blood Pressure 111/56 L 10/31/18 13:24 O2 Sat by Pulse Oximetry (%) 96 10/31/18 12:22 Constitutional: Yes: Calm Eyes: Yes: Conjunctiva Clear HENT: Yes: Atraumatic Neck: Yes: Supple Cardiovascular: Yes: S1, S2 Respiratory: Yes: Mechanically Ventilated Gastrointestinal: Yes: Soft Genitourinary: Yes: Incontinence Musculoskeletal: Yes: Muscle Weakness Edema: No Wound/Incision: Yes: Dressing Dry and Intact Neurological: Yes: Lethargy Labs: CBC, BMP 10/31/18 11:49 10/31/18 05:30 INR, PTT INR 2.73 (0.83-1.09) H 10/31/18 05:30 - ....Imaging Chest X-ray: Report Reviewed Problem List - Problems (1) Acute hypoxemic respiratory failure Code(s): J96.01 - ACUTE RESPIRATORY FAILURE WITH HYPOXIA (2) ESRD (end stage renal disease) Code(s): N18.6 - END STAGE RENAL DISEASE (3) Sepsis Code(s): A41.9 - SEPSIS, UNSPECIFIED ORGANISM Qualifiers: Sepsis type: sepsis due to unspecified organism Qualified Code(s): A41.9 - Sepsis, unspecified organism Assessment/Plan Current Medications Generic Name Dose Route Start Last Admin Trade Name Freq PRN Reason Stop Dose Admin Collagenase 1 applic 10/30/18 10:00 10/31/18 10:41 Santyl - TP 1 applic DAILY CHANTELL Administration Protocol Midazolam HCl 100 mg/ Sodium 100 mls @ 1 mls/hr 10/29/18 09:30 10/31/18 11:00 Chloride IVPB 0 mg/hr TITR CHANTELL 0 mls/hr Titration Protocol 1 MG/HR Norepinephrine Bitartrate 8, 500 mls @ 18.75 mls/hr 10/29/18 15:04 10/31/18 13:24 000 mcg/ Sodium Chloride IV 3 mcg/min TITR CHANTELL 11.25 mls/hr Titration Protocol 5 MCG/MIN Piperacillin Sod/Tazobactam 50 mls @ 100 mls/hr 10/29/18 18:00 10/31/18 09:47 Sod 2.25 gm/ Dextrose IVPB 100 mls/hr Q8H-IV CHANTELL Administration Protocol Sodium Chloride 250 mls @ 3,000 mls/hr 10/30/18 09:32 Normal Saline - IV 10/31/18 09:32 PRN PRN Hypotension during Dialysis Pantoprazole Sodium 40 mg 10/30/18 10:00 10/31/18 09:51 Protonix Iv IVPUSH 40 mg DAILY CHANTELL Administration Warfarin Sodium 5 mg 10/31/18 18:00 Coumadin - PO 10/31/18 18:01 ONCE@1800 ONE Microbiology 10/29/18 08:00 Urine - Urine Clean Catch Urine Culture - Final NO GROWTH OBTAINED 10/30/18 13:00 Blood - Pre-Dialysis Blood Culture - Preliminary Pending Organism 10/30/18 10:40 Blood - Peripheral Venous Blood Culture - Preliminary Pending Organism 10/30/18 10:25 Blood - Peripheral Venous Blood Culture - Preliminary Pending Organism 10/29/18 06:50 Blood - Peripheral Venous Blood Culture - Preliminary Staphylococcus Latex Coag Pos 10/29/18 06:50 Blood - Peripheral Venous Blood Culture - Preliminary Presumptive Mrsa (Pbp2a Pos) Impression 1. ESRD 2. acute rep failure 3. DM 4. hyperlipidemia 5. HTN 6. gout 7. proteinuria 8. hypotension/shock 9. sepsis 10. bacteremia Plan - remove permacath - cont abx - follow up cultures and sensitivities - will evaluate for HD on a daily basis and have shiley placed when he needs hd - transfuse prbc - vent support - discussed with ICU team
--- NOTE | 2018-10-31 14:29 | ECHO ---
Name: SAMANTHA HILL Exam:Adult Echocardiogram Study Date: 10/31/2018 09:08 AM Age: 73 yrs Reason For Study: EVALUATE HEART FUNCTION Height: 82 in Weight: 215 lb BSA: 2.4 m2 BP: 137/66 mmHg MMode/2D Measurements & Calculations IVSd: 1.0 cm Ao root diam: 2.7 cm LVIDd: 4.7 cm LA dimension: 3.0 cm LVIDs: 3.2 cm LVPWd: 0.80 cm EDV(Teich): 104.9 ml TAPSE: 3.4 cm ESV(Teich): 39.5 ml Doppler Measurements & Calculations MV E max gerson: 65.6 cm/sec Ao V2 max: 134.7 cm/sec MV A max gerson: 71.6 cm/sec Ao max P.3 mmHg MV E/A: 0.92 MV dec time: 0.21 sec LV V1 max P.8 mmHg MR max gerson: 439.6 cm/sec LV V1 max: 84.0 cm/sec MR max P.5 mmHg TR max gerson: 214.7 cm/sec Med Peak E' Gerson: 6.0 cm/sec TR max P.6 mmHg Med E/e': 11.0 Lat Peak E' Gerson: 8.1 cm/sec Lat E/e': 8.1 Procedure A two-dimensional transthoracic echocardiogram with color flow and Doppler was performed. The study w as technically difficult with many images being suboptimal in quality. Left Ventricle The left ventricular size, thickness and function are normal. The left ventricular ejection fraction is normal. Left Ventricular Filling pattern is normal for age. Regional wall motion abnormalities cannot be excluded due to limited visualization. Right Ventricle The right ventricle is not well visualized. Atria Normal left and right atrial size and function. Mitral Valve There is mild mitral valve thickening. There is no mitral valve stenosis. There is moderate to severe mitral regurgitation. Tricuspid Valve There is mild tricuspid valve thickening. There is no tricuspid stenosis. There is moderate tricuspid regurgitation. Right ventricular systolic pressure is normal. Aortic Valve The aortic valve is normal in structure and function. No hemodynamically significant valvular aortic stenosis. No aortic regurgitation is present. Pulmonic Valve The pulmonic valve is not well visualized. There is no pulmonic valvular stenosis. Trace pulmonic shay vular regurgitation. Great Vessels The aortic root is normal size. Pericardium/Pleura There is no pericardial effusion. Interpretation Summary The left ventricular size, thickness and function are normal There is moderate to severe mitral regurgitation. There is moderate tricuspid regurgitation. Right ventricular systolic pressure is normal. The left ventricular ejection fraction is normal. Left Ventricular Filling pattern is normal for age. The study was technically difficult with many images being suboptimal in quality. Regional wall motion abnormalities cannot be excluded due to limited visualization. The right ventricle is not well visualized. MD Pete Meyer 10/31/2018 02:28 PM
[2018-10-31] MEDS: NOREPINEPHRINE BITARTRATE 8,000 MCG in SODIUM CHLORIDE 492 ML IV SCH ×3 (15:05→18:14)
[2018-10-31] MEDS ORDERED: HEPARIN NA (PORCINE) 5,000 UNITS/ML 1ML VIAL IVPUSH PRN ×2 (17:28)
[2018-10-31] MEDS ORDERED: HEPARIN - 25,000 UNIT in SODIUM CHLORIDE 495 ML IV SCH (17:30)
[2018-10-31] MEDS ORDERED: WARFARIN NA 5 MG TABLET (UD) PO ONE ×2 (18:00)
[2018-11-01 00:24] LABS: HEMATOCRIT 27.7 % (35.4-49); HEMOGLOBIN 9.2 GM/dL (11.7-16.9); MCH 30.1 pg (25.7-33.7); MCHC 33.2 g/dl (32.0-35.9); MEAN CELL VOLUME 90.7 fl (80-96); MEAN PLT VOLUME 9.9 fl (7.5-11.1); PLATELET COUNT 196 K/MM3 (134-434); RBC 3.06 M/mm3 (4.00-5.60); RDW 16.7 % (11.9-15.9)
[2018-11-01] MEDS ORDERED: PIPERACILLIN/TAZOBACTAM 2.25 GM VIAL IVPB ONE ×3 (03:22→17:00)
[2018-11-01] MEDS ORDERED: DEXTROSE 5%-WATER - 50 ML IVPB ONE ×3 (03:22→17:00)
[2018-11-01] MEDS: PIPERACILLIN/TAZOB 2.25 GM 2.25 GM in DEXTROSE 5%-WATER - 50 ML IVPB SCH ×3 (03:25→17:15)
[2018-11-01 04:16] LABS: HBSAG SCREEN Negative (Negative); HEP B CORE AB, TOT Positive (Negative)
[2018-11-01 06:23] LABS: BASO % 0.6 % (0-2.0); EOS % 0.2 % (0-4.5); HEMATOCRIT 26.4 % (35.4-49); HEMOGLOBIN 8.7 GM/dL (11.7-16.9); LYMPH % 11.8 % (8-40); MCH 29.7 pg (25.7-33.7); MCHC 33.1 g/dl (32.0-35.9); MEAN CELL VOLUME 89.7 fl (80-96); MEAN PLT VOLUME 9.4 fl (7.5-11.1); MONO % 7.6 % (3.8-10.2); NEUT % 79.8 % (42.8-82.8); PLATELET COUNT 193 K/MM3 (134-434); RBC 2.94 M/mm3 (4.00-5.60); RDW 16.9 % (11.9-15.9); WHITE BLOOD COUNT 13.5 K/mm3 (4.0-10.0)
[2018-11-01 06:43] LABS: INR 2.96 (0.83-1.09); PROTHROMBIN TIME (PATIENT) 35.3 SEC (9.7-13.0)
[2018-11-01 08:32] LABS: ALBUMIN 1.5 g/dl (3.4-5.0); ALK PHOS 168 U/L (45-117); ANION GAP 8 MMOL/L (8-16); BILIRUBIN,TOTAL 0.3 mg/dL (0.2-1); BLOOD UREA NITROGEN 36 mg/dL (7-18); CALCIUM 7.6 mg/dL (8.5-10.1); CHLORIDE 105 mmol/L (98-107); CO2 28 mmol/L (21-32); CREATININE 5.4 mg/dL (0.55-1.3); GLUCOSE,RANDOM 176 mg/dL (74-106); MAGNESIUM 1.8 mg/dL (1.8-2.4); PHOSPHOROUS 2.1 mg/dL (2.5-4.9); POTASSIUM 3.6 mmol/L (3.5-5.1); SGOT/AST 24 U/L (15-37); SGPT/ALT 19 U/L (13-61); SODIUM 141 mmol/L (136-145); TOT PROT 6.1 g/dl (6.4-8.2)
[2018-11-01] MEDS: PANTOPRAZOLE SODIUM 40 MG VIAL IVPUSH SCH (09:03)
[2018-11-01] MEDS: COLLAGENASE CLOSTRIDIUM HIST. 30 GRAMS TUBE TP SCH (09:04)
[2018-11-01] MEDS: MIDAZOLAM 100 MG in SODIUM CHLORIDE 100 ML IVPB SCH (09:30)
--- NOTE | 2018-11-01 10:28 | PN ---
Progress Note, Physician Chief Complaint: LETHARIG ON VENTILATOR TEMPS DOWN HYPOTENSIVE ON PRESSORS- BEING TAPERED BC PRESUMED MRSA REPEAT BC + GPCCL VANCO 16 ECHO NO VEGETATIONS - Current Medication List Current Medications: Active Medications Collagenase (Santyl -) 1 applic TP DAILY CHANTELL; Protocol Last Admin: 11/01/18 09:04 Dose: 1 applic Heparin Sodium (Porcine) (Heparin -) 1,000 unit IVPUSH PRN PRN PRN Reason: Heparin Last Admin: 11/01/18 01:00 Dose: 1,000 unit Heparin Sodium (Porcine) (Heparin -) 5,000 unit IVPUSH PRN PRN PRN Reason: Heparin Midazolam HCl 100 mg/ Sodium (Chloride) 100 mls @ 1 mls/hr IVPB TITR CHANTELL; Protocol Last Titration: 10/31/18 11:00 Dose: 0 mg/hr, 0 mls/hr Norepinephrine Bitartrate 8, (000 mcg/ Sodium Chloride) 500 mls @ 18.75 mls/hr IV TITR CHANTELL; Protocol Last Titration: 11/01/18 09:20 Dose: 5 mcg/min, 18.75 mls/hr Piperacillin Sod/Tazobactam (Sod 2.25 gm/ Dextrose) 50 mls @ 100 mls/hr IVPB Q8H-IV CHANTELL; Protocol Last Admin: 11/01/18 09:04 Dose: 100 mls/hr Sodium Chloride (Normal Saline -) 250 mls @ 3,000 mls/hr IV PRN PRN PRN Reason: Hypotension during Dialysis Stop: 10/31/18 09:32 Heparin Sodium (Porcine) 25, (000 unit/ Sodium Chloride) 500 mls @ 20 mls/hr IV TITR CHANTELL; Protocol Last Titration: 11/01/18 02:00 Dose: 1,100 unit/hr, 22 mls/hr Pantoprazole Sodium (Protonix Iv) 40 mg IVPUSH DAILY CHANTELL Last Admin: 11/01/18 09:03 Dose: 40 mg - Objective Vital Signs: Vital Signs Temperature 98.9 F 11/01/18 08:00 Pulse Rate 79 11/01/18 09:20 Respiratory Rate 12 11/01/18 09:06 Blood Pressure 100/59 L 11/01/18 09:20 O2 Sat by Pulse Oximetry (%) 99 11/01/18 09:08 Constitutional: Yes: No Distress Eyes: Yes: Conjunctiva Clear Cardiovascular: Yes: Regular Rate and Rhythm, S1, S2 Respiratory: Yes: Mechanically Ventilated Gastrointestinal: Yes: Normal Bowel Sounds, Soft. No: Tenderness Edema: Yes Integumentary: Yes: Other (DRY ULCERS R LE) Labs: CBC, BMP 11/01/18 05:30 11/01/18 05:30 INR, PTT INR 2.96 (0.83-1.09) H 11/01/18 05:30 Assessment/Plan SEPSIS/ SEPTIC SHOCK IMPROVED STAPH BACTEREMIA PRESUMED MRSA ? FOOT SOURCE ? CATHETER CATHETER REMOVED RESP FAILURE R/O HCAP ACUTE EXACERBATION COPD COAGULOPATHY NON HEALING FOOT ULCERS HX MRSA REPEAT BC PENDING CHECK VANCOMYCIN LEVEL AWAIT FINAL C/S ? DAPTOMYCIN CONTINUE ZOSYN VENTILATORY/ HEMODYNAMIC SUPPORT
--- NOTE | 2018-11-01 10:56 | PN ---
Teaching Attending Note Name of Resident: Shanna Aleman ATTENDING PHYSICIAN STATEMENT I saw and evaluated the patient. I reviewed the resident's note and discussed the case with the resident. I agree with the resident's findings and plan as documented. SUBJECTIVE: Pt seen and examined in the ICU. Remains intubated but now arousable off sedation, following some commands. Remains on low dose pressors. OBJECTIVE: Vital Signs Period Temp Pulse Resp BP Sys/Zamorano Pulse Ox Last 24 Hr 96.4 F-98.9 F 57-84 12-27 83-147/46-70 96-100 Intake & Output 10/29/18 10/30/18 10/31/18 11/01/18 23:59 23:59 23:59 23:59 Intake Total 773.6 1753.1 1390.7 931 Balance 773.6 1753.1 1390.7 931 Weight 79.379 kg 97.522 kg 84.459 kg Gen: intubated, arousable Heart: RRR Lung: decreased breath sounds at the bases Abd: soft, nontender Ext: no edema CBC, BMP 11/01/18 05:30 11/01/18 05:30 Active Medications Collagenase (Santyl -) 1 applic TP DAILY CHANTELL; Protocol Last Admin: 11/01/18 09:04 Dose: 1 applic Norepinephrine Bitartrate 8, (000 mcg/ Sodium Chloride) 500 mls @ 18.75 mls/hr IV TITR CHANTELL; Protocol Last Titration: 11/01/18 09:20 Dose: 5 mcg/min, 18.75 mls/hr Piperacillin Sod/Tazobactam (Sod 2.25 gm/ Dextrose) 50 mls @ 100 mls/hr IVPB Q8H-IV CHANTELL; Protocol Last Admin: 11/01/18 09:04 Dose: 100 mls/hr Sodium Chloride (Normal Saline -) 250 mls @ 3,000 mls/hr IV PRN PRN PRN Reason: Hypotension during Dialysis Stop: 10/31/18 09:32 Pantoprazole Sodium (Protonix Iv) 40 mg IVPUSH DAILY CHANTELL Last Admin: 11/01/18 09:03 Dose: 40 mg ASSESSMENT AND PLAN: Acute Hypoxic Respiratory Failure Pneumonia r/o Diabetic Foot Ulcer Infection r/o Permacath Infection MRSA Bacteremia Septic Shock ESRD on HD Lactic Acidosis +Troponins likely Demand Ischemia Supratherapeutic INR Atrial Fibrillation h/o CVA Severe Mitral Regurgitation HTN DM COPD - continue antibiotics - f/u pending cultures - IVF boluses as needed - titrate pressors to maintain MAP >65 - permacath removed - may need ALEJO if persistently bacteremic - wound care - monitor INR with goal 2-3 - rate control - HD per renal - taper Fio2 to keep SpO2 >90% - spontaneous breathing trials as tolerated - can extubate when mental status improved - resume enteral feeds if unable to extubate - DVT/GI prophylaxis - continue ICU monitoring critical care time spent in reviewing chart, evaluating patient and formulating plan 35 min
--- NOTE | 2018-11-01 11:44 | PN ---
Progress Note (short form) - Note Progress Note: SUBJECTIVE Patient seen and examined at the bedside. Off sedation since yesterday afternoon , but still not very awake. OBJECTIVE Vital Signs Temperature 98.3 F 11/01/18 10:00 Pulse Rate 74 11/01/18 10:00 Respiratory Rate 27 H 11/01/18 10:00 Blood Pressure 125/63 11/01/18 10:00 O2 Sat by Pulse Oximetry (%) 99 11/01/18 09:08 General: Somnolent but arousable Head: No signs of trauma Eyes: PEERL, sclera anicteric ENT: Dry mucus membranes Neck: Supple Lungs: Decreased breath sounds at bilateral bases Cardio: Regular rate, S1 and S2 present Abdomen: Soft, nontender Extremities: Distal pulses present SKIN: Right ankle/foot wrapped in Kerlix dressing with deformed digits; extensive hemostatic wound along the lateral aspect Neurologic: Sedated ASSESSMENT 73yo M with PMH of ESRD (HD on MWF), Afib on coumadin, DM, HTN, HLD, COPD, prior CVA coming from [facility] and found to have fever, tachycardia, hypotension, and hypoxia in the ED. Septic workup in the ED. Initially did well on BiPAP, but ultimately intubated on 10/29/18 for worsening mental status. On levophed for labile blood pressure. HOD #4. PLAN NEURO Discontinued versed for sedation for spontaneous breathing trial CV Labile blood pressure Elevated INR, 11.8---->7.96--->3.77--->2.73---->2.96 Elevated Troponins, 0.12---->0.21---->0.11 History of Afib History of HTN, HLD -On levophed, now on 2mcg, plan to taper off -Keep MAP>65 -Vitamin K and FFP given on 10/30/18 -hold home coumadin while patient is supratherapeutic -hold home HTN, HLD meds while patient is hypotensive -ECHO on 10/31 shows moderate tricuspid and mitral regurg and no vegetations (no prior ECHO's available) PULM Acute respiratory distress, likely secondary to pneumonia History of COPD -Spontaneous breathing trial now; may extubate if patient becomes more awake -Patient did well on CPAP on 10/31 for 2.5 hours but placed back on vent due to lethargy -Vanc/ Zosyn, with random vancomycin levels -Sputum culture -Castle-culture, blood culture with gm+ bacteremia -SpO2>90% GI Abdominal pain -CTA abdomen pelvis with "retention of stool", but no acute pathology -Monitor for changes RENAL History of ESRD on dialysis MWF -Renal following -Monitor urine output -dialyzed 10/30/18 SKIN L. foot wound -podiatry following -continue antibiotics ID Septic shock, wound infection of L. foot vs. aspiration pneumonia -Vanc level for the AM -ID following -castle-culture, blood culture with gm+ bacteremia -repeat blood cultures collected on 10/31, results pending -ALEJO indicated if persistently bacteremic -Permacath removed on 10/31, culture of catheter tip sent FEN Limit fluid intake given history of ESRD Follow electrolytes, replete as needed Strict I/O's Nepro NG feeds started on 10/31, held while on spontaneous breathing trial PPX VTE: SCD's (hold anticoagulation while patient is supratherapeutic) GI: 40 Protonix Disposition: Monitor in the ICU Code status: Full code (per [facility] nurse on the phone)
--- NOTE | 2018-11-01 13:52 | PN ---
Progress Note, Physician Chief Complaint: patient seen and examined in ICU on low dose pressors off sedation - Current Medication List Current Medications: Active Medications Collagenase (Santyl -) 1 applic TP DAILY CHANTELL; Protocol Last Admin: 11/01/18 09:04 Dose: 1 applic Norepinephrine Bitartrate 8, (000 mcg/ Sodium Chloride) 500 mls @ 18.75 mls/hr IV TITR CHANTELL; Protocol Last Titration: 11/01/18 11:47 Dose: 4 mcg/min, 15 mls/hr Piperacillin Sod/Tazobactam (Sod 2.25 gm/ Dextrose) 50 mls @ 100 mls/hr IVPB Q8H-IV CHANTELL; Protocol Last Admin: 11/01/18 09:04 Dose: 100 mls/hr Sodium Chloride (Normal Saline -) 250 mls @ 3,000 mls/hr IV PRN PRN PRN Reason: Hypotension during Dialysis Stop: 10/31/18 09:32 Pantoprazole Sodium (Protonix Iv) 40 mg IVPUSH DAILY CHANTELL Last Admin: 11/01/18 09:03 Dose: 40 mg - Objective Vital Signs: Vital Signs Temperature 98.8 F 11/01/18 13:45 Pulse Rate 76 11/01/18 13:45 Respiratory Rate 24 H 11/01/18 13:45 Blood Pressure 130/63 11/01/18 13:45 O2 Sat by Pulse Oximetry (%) 99 11/01/18 09:08 Constitutional: Yes: Calm Neck: Yes: Other (intubated) Cardiovascular: Yes: S1, S2 Respiratory: Yes: Mechanically Ventilated Gastrointestinal: Yes: Normal Bowel Sounds, Soft Labs: CBC, BMP 11/01/18 05:30 11/01/18 05:30 INR, PTT INR 2.96 (0.83-1.09) H 11/01/18 05:30 Problem List - Problems (1) Acute hypoxemic respiratory failure Assessment/Plan: intubated/on AC mode off sedation open eyes icu monitiring AC mode cxr opacityu in left lung Code(s): J96.01 - ACUTE RESPIRATORY FAILURE WITH HYPOXIA (2) Supratherapeutic INR Assessment/Plan: got vitamin K in er on admission on coumadin for afib monitor INR- now inr 2.96 Code(s): R79.1 - ABNORMAL COAGULATION PROFILE (3) ESRD (end stage renal disease) Assessment/Plan: HD per renal Code(s): N18.6 - END STAGE RENAL DISEASE (4) Wound, open, foot Assessment/Plan: podiatry ID broad abx dvt ppx wound care santyl Code(s): S91.309A - UNSPECIFIED OPEN WOUND, UNSPECIFIED FOOT, INITIAL ENCOUNTER Qualifiers: Laterality: right (5) Sepsis Assessment/Plan: Microbiology 10/31/18 12:43 Catheter Site Gram Stain - Final 10/30/18 15:00 Sputum - Endotrachea Suction/Ventilator Gram Stain - Final 10/31/18 12:43 Catheter Site Wound Culture - Preliminary Staphylococcus Latex Coag Pos 10/30/18 15:00 Sputum - Endotrachea Suction/Ventilator Sputum Culture - Preliminary Lactose Fermenting Neg Bacilli Presumptive Mrsa (Pbp2a Pos) 10/30/18 13:00 Blood - Pre-Dialysis Blood Culture - Preliminary Staphylococcus Latex Coag Pos 10/30/18 10:40 Blood - Peripheral Venous Blood Culture - Preliminary Staphylococcus Latex Coag Pos echo don no vegetation vancomcyin zosyn Code(s): A41.9 - SEPSIS, UNSPECIFIED ORGANISM Qualifiers: Sepsis type: sepsis due to unspecified organism Qualified Code(s): A41.9 - Sepsis, unspecified organism
--- NOTE | 2018-11-01 14:34 | PN ---
Progress Note, Physician History of Present Illness: Pt seen and examined at bedside. He remains in the ICU. He remains intubated. - Current Medication List Current Medications: Active Medications Collagenase (Santyl -) 1 applic TP DAILY CHANTELL; Protocol Last Admin: 11/01/18 09:04 Dose: 1 applic Norepinephrine Bitartrate 8, (000 mcg/ Sodium Chloride) 500 mls @ 18.75 mls/hr IV TITR CHANTELL; Protocol Last Titration: 11/01/18 11:47 Dose: 4 mcg/min, 15 mls/hr Piperacillin Sod/Tazobactam (Sod 2.25 gm/ Dextrose) 50 mls @ 100 mls/hr IVPB Q8H-IV CHANTELL; Protocol Last Admin: 11/01/18 09:04 Dose: 100 mls/hr Sodium Chloride (Normal Saline -) 250 mls @ 3,000 mls/hr IV PRN PRN PRN Reason: Hypotension during Dialysis Stop: 10/31/18 09:32 Pantoprazole Sodium (Protonix Iv) 40 mg IVPUSH DAILY CHANTELL Last Admin: 11/01/18 09:03 Dose: 40 mg - Objective Vital Signs: Vital Signs Temperature 98.8 F 11/01/18 13:45 Pulse Rate 76 11/01/18 13:45 Respiratory Rate 20 11/01/18 13:54 Blood Pressure 130/63 11/01/18 13:45 O2 Sat by Pulse Oximetry (%) 99 11/01/18 09:08 Constitutional: Yes: Calm Eyes: Yes: Conjunctiva Clear HENT: Yes: Atraumatic Neck: Yes: Supple Cardiovascular: Yes: S1, S2 Respiratory: Yes: Mechanically Ventilated Gastrointestinal: Yes: Normal Bowel Sounds, Soft Genitourinary: Yes: Incontinence Musculoskeletal: Yes: Muscle Weakness Edema: No Neurological: Yes: Lethargy Labs: CBC, BMP 11/01/18 05:30 11/01/18 05:30 INR, PTT INR 2.96 (0.83-1.09) H 11/01/18 05:30 Problem List - Problems (1) Acute hypoxemic respiratory failure Code(s): J96.01 - ACUTE RESPIRATORY FAILURE WITH HYPOXIA (2) ESRD (end stage renal disease) Code(s): N18.6 - END STAGE RENAL DISEASE (3) Sepsis Code(s): A41.9 - SEPSIS, UNSPECIFIED ORGANISM Qualifiers: Sepsis type: sepsis due to unspecified organism Qualified Code(s): A41.9 - Sepsis, unspecified organism Assessment/Plan Current Medications Generic Name Dose Route Start Last Admin Trade Name Freq PRN Reason Stop Dose Admin Collagenase 1 applic 10/30/18 10:00 11/01/18 09:04 Santyl - TP 1 applic DAILY CHANTELL Administration Protocol Norepinephrine Bitartrate 8, 500 mls @ 18.75 mls/hr 10/29/18 15:04 11/01/18 11:47 000 mcg/ Sodium Chloride IV 4 mcg/min TITR CHANTELL 15 mls/hr Titration Protocol 5 MCG/MIN Piperacillin Sod/Tazobactam 50 mls @ 100 mls/hr 10/29/18 18:00 11/01/18 09:04 Sod 2.25 gm/ Dextrose IVPB 100 mls/hr Q8H-IV CHANTELL Administration Protocol Sodium Chloride 250 mls @ 3,000 mls/hr 10/30/18 09:32 Normal Saline - IV 10/31/18 09:32 PRN PRN Hypotension during Dialysis Pantoprazole Sodium 40 mg 10/30/18 10:00 11/01/18 09:03 Protonix Iv IVPUSH 40 mg DAILY CHANTELL Administration Impression 1. ESRD 2. acute rep failure 3. DM 4. hyperlipidemia 5. HTN 6. gout 7. proteinuria 8. hypotension/shock 9. sepsis 10. bacteremia Plan - cont to follow cultures - no HD today - check labs in am - will evaluate for HD on a daily basis - monitor hg - vent support - discussed with ICU team
[2018-11-01] MEDS: NOREPINEPHRINE BITARTRATE 8,000 MCG in SODIUM CHLORIDE 492 ML IV SCH ×2 (15:05→18:12)
[2018-11-01] MEDS ORDERED: PT OWN MED DRAWER 7, Y5N ONE (16:15)
[2018-11-01] MEDS ORDERED: LORazepam 2 MG/ML SDV VIAL IVPUSH ONE (21:24)
[2018-11-01] MEDS ORDERED: LORazepam 2 MG/ML SDV VIAL ONE (21:25)
[2018-11-02] MEDS: PIPERACILLIN/TAZOB 2.25 GM 2.25 GM in DEXTROSE 5%-WATER - 50 ML IVPB SCH ×3 (04:00→18:37)
[2018-11-02] MEDS ORDERED: PIPERACILLIN/TAZOBACTAM 2.25 GM VIAL IVPB ONE ×3 (04:31→18:31)
[2018-11-02] MEDS ORDERED: DEXTROSE 5%-WATER - 50 ML IVPB ONE ×3 (04:31→18:31)
[2018-11-02 06:19] LABS: HEMATOCRIT 24.4 % (35.4-49); MCH 29.8 pg (25.7-33.7); MEAN CELL VOLUME 90.4 fl (80-96); MEAN PLT VOLUME 9.5 fl (7.5-11.1); PLATELET COUNT 182 K/MM3 (134-434); RBC 2.69 M/mm3 (4.00-5.60); RDW 16.6 % (11.9-15.9); WHITE BLOOD COUNT 11.3 K/mm3 (4.0-10.0)
[2018-11-02 06:48] LABS: INR 3.13 (0.83-1.09); PROTHROMBIN TIME (PATIENT) 37.4 SEC (9.7-13.0)
[2018-11-02 07:00] LABS: ALBUMIN 1.4 g/dl (3.4-5.0); ALK PHOS 194 U/L (45-117); ANION GAP 8 MMOL/L (8-16); BILIRUBIN,TOTAL 0.3 mg/dL (0.2-1); BLOOD UREA NITROGEN 48 mg/dL (7-18); CALCIUM 7.2 mg/dL (8.5-10.1); CHLORIDE 104 mmol/L (98-107); CO2 29 mmol/L (21-32); CREATININE 6.2 mg/dL (0.55-1.3); GLUCOSE,RANDOM 178 mg/dL (74-106); MAGNESIUM 2.3 mg/dL (1.8-2.4); PHOSPHOROUS 1.6 mg/dL (2.5-4.9); POTASSIUM 3.6 mmol/L (3.5-5.1); SGOT/AST 22 U/L (15-37); SGPT/ALT 17 U/L (13-61); SODIUM 141 mmol/L (136-145)
--- NOTE | 2018-11-02 10:18 | PN ---
Progress Note, Physician Chief Complaint: POORLY RESPONSIVE ON VENTILATOR. ATTEMPTS TO OPEN EYES SPIKED TEMP 102.7 THIS AM BC STILL + BC PRESUMED MRSA REPEAT BC + GPCCL ECHO NO VEGETATION - Current Medication List Current Medications: Active Medications Collagenase (Santyl -) 1 applic TP DAILY CHANTELL; Protocol Last Admin: 11/01/18 09:04 Dose: 1 applic Norepinephrine Bitartrate 8, (000 mcg/ Sodium Chloride) 500 mls @ 18.75 mls/hr IV TITR CHANTELL; Protocol Last Titration: 11/02/18 05:16 Dose: 1 mcg/min, 3.75 mls/hr Piperacillin Sod/Tazobactam (Sod 2.25 gm/ Dextrose) 50 mls @ 100 mls/hr IVPB Q8H-IV CHANTELL; Protocol Last Admin: 11/02/18 04:00 Dose: 100 mls/hr Sodium Chloride (Normal Saline -) 250 mls @ 3,000 mls/hr IV PRN PRN PRN Reason: Hypotension during Dialysis Stop: 10/31/18 09:32 Daptomycin 760 mg/ Sodium (Chloride) 50 mls @ 50 mls/hr IVPB Q48H CHANTELL; Protocol Pantoprazole Sodium (Protonix Iv) 40 mg IVPUSH DAILY CHANTELL Last Admin: 11/01/18 09:03 Dose: 40 mg - Objective Vital Signs: Vital Signs Temperature 102.7 F H 11/02/18 05:00 Pulse Rate 72 11/02/18 08:22 Respiratory Rate 18 11/02/18 08:22 Blood Pressure 108/58 L 11/02/18 08:00 O2 Sat by Pulse Oximetry (%) 99 11/02/18 08:22 Constitutional: Yes: No Distress Eyes: Yes: Conjunctiva Clear Cardiovascular: Yes: Regular Rate and Rhythm, S1, S2 Respiratory: Yes: Mechanically Ventilated Gastrointestinal: Yes: Normal Bowel Sounds, Soft. No: Tenderness Extremities: Yes: Other (+ ULCERS R FOOT) Edema: Yes Labs: CBC, BMP 11/02/18 05:30 11/02/18 05:30 INR, PTT INR 3.13 (0.83-1.09) H 11/02/18 05:30 Assessment/Plan SEPSIS/ SEPTIC SHOCK IMPROVED PRESSORS BEING TAPERED STAPH BACTEREMIA PRESUMED MRSA ? FOOT SOURCE ? CATHETER CATHETER REMOVED RESP FAILURE R/O HCAP ACUTE EXACERBATION COPD COAGULOPATHY NON HEALING FOOT ULCERS HX MRSA REPEAT BC STILL POSITIVE WILL SUBSTITUTE DAPTOMYCIN 8MG/KG CONTINUE ZOSYN VENTILATORY/ HEMODYNAMIC SUPPORT
[2018-11-02] MEDS: COLLAGENASE CLOSTRIDIUM HIST. 30 GRAMS TUBE TP SCH (12:02)
[2018-11-02] MEDS: PANTOPRAZOLE SODIUM 40 MG VIAL IVPUSH SCH (12:06)
--- NOTE | 2018-11-02 12:32 | PN ---
Teaching Attending Note Name of Resident: Shanna Aleman ATTENDING PHYSICIAN STATEMENT I saw and evaluated the patient. I reviewed the resident's note and discussed the case with the resident. I agree with the resident's findings and plan as documented. SUBJECTIVE: Patient seen and examined in the ICU. Remains intubated. Apparently received Ativan overnight. Minimally responsive to noxious stimuli. Weaning on CPAP mode of vent. OBJECTIVE: Intake & Output 10/30/18 10/31/18 11/01/18 11/02/18 23:59 23:59 23:59 23:59 Intake Total 1753.1 1390.7 1145.4 534 Balance 1753.1 1390.7 1145.4 534 Weight 215 lb 186 lb 3.2 oz 209 lb 12.8 oz Last Vital Signs Temp Pulse Resp BP Pulse Ox 98.2 F 73 26 H 109/56 L 97 11/02/18 10:00 11/02/18 10:00 11/02/18 11:57 11/02/18 10:00 11/02/18 10:56 Active Medications Collagenase (Santyl -) 1 applic TP DAILY CHANTELL; Protocol Last Admin: 11/02/18 12:02 Dose: 1 applic Norepinephrine Bitartrate 8, (000 mcg/ Sodium Chloride) 500 mls @ 18.75 mls/hr IV TITR CHANTELL; Protocol Last Titration: 11/02/18 05:16 Dose: 1 mcg/min, 3.75 mls/hr Piperacillin Sod/Tazobactam (Sod 2.25 gm/ Dextrose) 50 mls @ 100 mls/hr IVPB Q8H-IV CHANTELL; Protocol Last Admin: 11/02/18 12:06 Dose: 100 mls/hr Sodium Chloride (Normal Saline -) 250 mls @ 3,000 mls/hr IV PRN PRN PRN Reason: Hypotension during Dialysis Stop: 10/31/18 09:32 Daptomycin 760 mg/ Sodium (Chloride) 100 mls @ 200 mls/hr IVPB Q48H CHANTELL; Protocol Pantoprazole Sodium (Protonix Iv) 40 mg IVPUSH DAILY CHANTELL Last Admin: 11/02/18 12:06 Dose: 40 mg Gen: intubated, poorly arousable Heart: RRR Lung: decreased breath sounds at the bases Abd: soft, nontender Ext: no edema Laboratory Results - last 24 hr 11/02/18 11/02/18 11/02/18 05:30 05:30 05:30 WBC 11.3 H RBC 2.69 L Hgb 8.0 L Hct 24.4 L MCV 90.4 MCH 29.8 MCHC 33.0 RDW 16.6 H Plt Count 182 MPV 9.5 PT with INR INR PTT (Actin FS) 51.6 H Sodium Potassium Chloride Carbon Dioxide Anion Gap BUN Creatinine Creat Clearance w eGFR Random Glucose Calcium Phosphorus Magnesium Total Bilirubin AST ALT Alkaline Phosphatase Total Protein Albumin Random Vancomycin 25.5 11/02/18 11/02/18 05:30 05:30 WBC RBC Hgb Hct MCV MCH MCHC RDW Plt Count MPV PT with INR 37.40 H INR 3.13 H PTT (Actin FS) Sodium 141 Potassium 3.6 Chloride 104 Carbon Dioxide 29 Anion Gap 8 BUN 48 H Creatinine 6.2 H Creat Clearance w eGFR 8.90 Random Glucose 178 H Calcium 7.2 L Phosphorus 1.6 L Magnesium 2.3 Total Bilirubin 0.3 AST 22 ALT 17 Alkaline Phosphatase 194 H Total Protein 6.0 L Albumin 1.4 L Random Vancomycin ASSESSMENT AND PLAN: Acute Hypoxic Respiratory Failure Pneumonia r/o Diabetic Foot Ulcer Infection r/o Permacath Infection MRSA Bacteremia Septic Shock ESRD on HD Lactic Acidosis +Troponins likely Demand Ischemia Supratherapeutic INR Atrial Fibrillation h/o CVA Severe Mitral Regurgitation HTN DM COPD - continue antibiotics per ID - may need ALEJO if persistently bacteremic - wound care - monitor INR with goal 2-3 - rate control - HD per renal - taper Fio2 to keep SpO2 >90% - spontaneous breathing trials as tolerated - can extubate when mental status improved - resume enteral feeds if unable to extubate - DVT/GI prophylaxis - continue ICU monitoring Dr Palmer Critical care time spent in reviewing chart, evaluating patient and formulating plan 35 min
[2018-11-02] MEDS: DAPTOMYCIN IVPB SCH (13:14)
[2018-11-02] MEDS: SODIUM CHLORIDE IVPB SCH (13:14)
--- NOTE | 2018-11-02 13:33 | PN ---
Progress Note, Physician Chief Complaint: patient is in icu off presorrs [off sedation poorly arousable - Current Medication List Current Medications: Active Medications Collagenase (Santyl -) 1 applic TP DAILY CHANTELL; Protocol Last Admin: 11/02/18 12:02 Dose: 1 applic Norepinephrine Bitartrate 8, (000 mcg/ Sodium Chloride) 500 mls @ 18.75 mls/hr IV TITR CHANTELL; Protocol Last Titration: 11/02/18 10:10 Dose: 0.5 mcg/min, 1.87 mls/hr Piperacillin Sod/Tazobactam (Sod 2.25 gm/ Dextrose) 50 mls @ 100 mls/hr IVPB Q8H-IV CHANTELL; Protocol Last Admin: 11/02/18 12:06 Dose: 100 mls/hr Sodium Chloride (Normal Saline -) 250 mls @ 3,000 mls/hr IV PRN PRN PRN Reason: Hypotension during Dialysis Stop: 10/31/18 09:32 Daptomycin 760 mg/ Sodium (Chloride) 100 mls @ 200 mls/hr IVPB Q48H CHANTELL; Protocol Last Admin: 11/02/18 13:14 Dose: 200 mls/hr Pantoprazole Sodium (Protonix Iv) 40 mg IVPUSH DAILY CHANTELL Last Admin: 11/02/18 12:06 Dose: 40 mg - Objective Vital Signs: Vital Signs Temperature 98.2 F 11/02/18 10:00 Pulse Rate 82 11/02/18 10:10 Respiratory Rate 26 H 11/02/18 11:57 Blood Pressure 135/82 11/02/18 10:10 O2 Sat by Pulse Oximetry (%) 97 11/02/18 10:56 Constitutional: Yes: Calm Neck: Yes: Other (trach) Cardiovascular: Yes: Regular Rate and Rhythm, S1, S2 Respiratory: Yes: Mechanically Ventilated Gastrointestinal: Yes: Normal Bowel Sounds, Soft, Other (g tube) Extremities: Yes: Other (wrapped) Labs: CBC, BMP 11/02/18 05:30 11/02/18 05:30 INR, PTT INR 3.13 (0.83-1.09) H 11/02/18 05:30 Problem List - Problems (1) Acute hypoxemic respiratory failure Assessment/Plan: intubated/on AC mode off sedation icu monitiring AC mode Code(s): J96.01 - ACUTE RESPIRATORY FAILURE WITH HYPOXIA (2) Supratherapeutic INR Assessment/Plan: got vitamin K in er on admission on coumadin for afib monitor INR- now inr 2.96 Code(s): R79.1 - ABNORMAL COAGULATION PROFILE (3) ESRD (end stage renal disease) Assessment/Plan: HD per renal Code(s): N18.6 - END STAGE RENAL DISEASE (4) Wound, open, foot Assessment/Plan: podiatry ID broad abx dvt ppx wound care santyl Code(s): S91.309A - UNSPECIFIED OPEN WOUND, UNSPECIFIED FOOT, INITIAL ENCOUNTER Qualifiers: Laterality: right (5) Sepsis Assessment/Plan: Microbiology 10/31/18 12:43 Catheter Site Gram Stain - Final 10/30/18 15:00 Sputum - Endotrachea Suction/Ventilator Gram Stain - Final 10/31/18 12:43 Catheter Site Wound Culture - Preliminary Staphylococcus Latex Coag Pos 10/30/18 15:00 Sputum - Endotrachea Suction/Ventilator Sputum Culture - Preliminary Lactose Fermenting Neg Bacilli Presumptive Mrsa (Pbp2a Pos) 10/30/18 13:00 Blood - Pre-Dialysis Blood Culture - Preliminary Staphylococcus Latex Coag Pos 10/30/18 10:40 Blood - Peripheral Venous Blood Culture - Preliminary Staphylococcus Latex Coag Pos echo don no vegetation daptomycin zosyn Microbiology 10/31/18 12:43 Catheter Site Gram Stain - Final 10/31/18 12:43 Catheter Site Wound Culture - Final S Aureus 11/01/18 05:45 Blood - Peripheral Venous Blood Culture - Preliminary Pending Organism 11/01/18 05:30 Blood - Peripheral Venous Blood Culture - Preliminary Pending Organism off preosrs Code(s): A41.9 - SEPSIS, UNSPECIFIED ORGANISM Qualifiers: Sepsis type: sepsis due to unspecified organism Qualified Code(s): A41.9 - Sepsis, unspecified organism
--- NOTE | 2018-11-02 15:34 | PN ---
Progress Note (short form) - Note Progress Note: SUBJECTIVE Patient seen and examined at the bedside. Off sedation since two days ago. Some agitation reported by the night team and patient was given ativan since he was not ready to be extubated. Still not very awake. OBJECTIVE Vital Signs Temperature 98.1 F 11/02/18 14:00 Pulse Rate 69 11/02/18 14:00 Respiratory Rate 25 H 11/02/18 14:12 Blood Pressure 123/60 11/02/18 14:00 O2 Sat by Pulse Oximetry (%) 97 11/02/18 10:56 General: Somnolent but arousable Head: No signs of trauma Eyes: PEERL, sclera anicteric ENT: Dry mucus membranes Neck: Supple Lungs: Decreased breath sounds at bilateral bases Cardio: Regular rate, S1 and S2 present Abdomen: Soft, nontender Extremities: Distal pulses present SKIN: Right ankle/foot wrapped in Kerlix dressing with deformed digits; extensive hemostatic wound along the lateral aspect Neurologic: Lethargic ASSESSMENT 73yo M with PMH of ESRD (HD on MWF), Afib on coumadin, DM, HTN, HLD, COPD, prior CVA coming from [facility] and found to have fever, tachycardia, hypotension, and hypoxia in the ED. Septic workup in the ED. Initially did well on BiPAP, but ultimately intubated on 10/29/18 for worsening mental status. On levophed for labile blood pressure. HOD #5. PLAN NEURO Received ativan on 11/01 Otherwise off sedation CV Labile blood pressure Elevated INR, 11.8---->7.96--->3.77--->2.73---->2.96---->3.13 Elevated Troponins, 0.12---->0.21---->0.11 History of Afib History of HTN, HLD -On levophed, now on 1mcg, plan to taper off -Keep MAP>65 -Vitamin K and FFP given on 10/30/18 -hold home coumadin while patient is supratherapeutic -hold home HTN, HLD meds while patient is hypotensive -ECHO on 10/31 shows moderate tricuspid and mitral regurg and no vegetations (no prior ECHO's available) PULM Acute respiratory distress, likely secondary to pneumonia History of COPD -Spontaneous breathing trial now; may extubate if patient becomes more awake -Patient did well on CPAP on 10/31 and 11/01 for about 2.5 hours each but placed back on vent due to lethargy -Vanc/ Zosyn, with random vancomycin levels -Sputum culture -Castle-culture, blood culture with gm+ bacteremia -SpO2>90% GI Abdominal pain -CTA abdomen pelvis with "retention of stool", but no acute pathology -Monitor for changes RENAL History of ESRD on dialysis MWF -Renal following -Monitor urine output -dialyzed 10/30/18 SKIN L. foot wound -podiatry following -continue antibiotics ID Septic shock, wound infection of L. foot vs. aspiration pneumonia -ID following -castle-culture, blood culture with gm+ bacteremia -repeat blood cultures collected on 10/31, results pending -ALEJO indicated if persistently bacteremic -Permacath removed on 10/31, culture of catheter tip with MRSA -Zosyn and Daptomycin (stopped Vancomycin) FEN Limit fluid intake given history of ESRD Follow electrolytes, replete as needed Strict I/O's Nepro NG feeds started on 10/31, held while on spontaneous breathing trial PPX VTE: SCD's (hold anticoagulation while patient is supratherapeutic) GI: 40 Protonix Disposition: Monitor in the ICU Code status: Full code (per [facility] nurse on the phone)
--- NOTE | 2018-11-02 16:06 | PN ---
Progress Note, Physician History of Present Illness: Pt seen and examined at bedside. He remains in the ICU. He remains intubated. Pt still has positive blood cultures. - Current Medication List Current Medications: Active Medications Collagenase (Santyl -) 1 applic TP DAILY CHANTELL; Protocol Last Admin: 11/02/18 12:02 Dose: 1 applic Norepinephrine Bitartrate 8, (000 mcg/ Sodium Chloride) 500 mls @ 18.75 mls/hr IV TITR CHANTELL; Protocol Last Titration: 11/02/18 10:10 Dose: 0.5 mcg/min, 1.87 mls/hr Piperacillin Sod/Tazobactam (Sod 2.25 gm/ Dextrose) 50 mls @ 100 mls/hr IVPB Q8H-IV CHANTELL; Protocol Last Admin: 11/02/18 12:06 Dose: 100 mls/hr Sodium Chloride (Normal Saline -) 250 mls @ 3,000 mls/hr IV PRN PRN PRN Reason: Hypotension during Dialysis Stop: 10/31/18 09:32 Daptomycin 760 mg/ Sodium (Chloride) 100 mls @ 200 mls/hr IVPB Q48H CHANTELL; Protocol Last Admin: 11/02/18 13:14 Dose: 200 mls/hr Pantoprazole Sodium (Protonix Iv) 40 mg IVPUSH DAILY CHANTELL Last Admin: 11/02/18 12:06 Dose: 40 mg - Objective Vital Signs: Vital Signs Temperature 98.1 F 11/02/18 14:00 Pulse Rate 69 11/02/18 14:00 Respiratory Rate 28 H 11/02/18 15:49 Blood Pressure 123/60 11/02/18 14:00 O2 Sat by Pulse Oximetry (%) 97 11/02/18 10:56 Constitutional: Yes: Calm Eyes: Yes: Conjunctiva Clear Cardiovascular: Yes: S1, S2 Respiratory: Yes: Mechanically Ventilated Gastrointestinal: Yes: Soft Genitourinary: Yes: Incontinence Musculoskeletal: Yes: Muscle Weakness Edema: LLE: Trace, RLE: Trace Neurological: Yes: Lethargy Labs: CBC, BMP 11/02/18 05:30 11/02/18 05:30 INR, PTT INR 3.13 (0.83-1.09) H 11/02/18 05:30 - ....Imaging Chest X-ray: Report Reviewed Problem List - Problems (1) Acute hypoxemic respiratory failure Code(s): J96.01 - ACUTE RESPIRATORY FAILURE WITH HYPOXIA (2) ESRD (end stage renal disease) Code(s): N18.6 - END STAGE RENAL DISEASE (3) Sepsis Code(s): A41.9 - SEPSIS, UNSPECIFIED ORGANISM Qualifiers: Sepsis type: sepsis due to unspecified organism Qualified Code(s): A41.9 - Sepsis, unspecified organism Assessment/Plan Current Medications Generic Name Dose Route Start Last Admin Trade Name Freq PRN Reason Stop Dose Admin Collagenase 1 applic 10/30/18 10:00 11/02/18 12:02 Santyl - TP 1 applic DAILY CHANTELL Administration Protocol Norepinephrine Bitartrate 8, 500 mls @ 18.75 mls/hr 10/29/18 15:04 11/02/18 10:10 000 mcg/ Sodium Chloride IV 0.5 mcg/min TITR CHANTELL 1.87 mls/hr Titration Protocol 5 MCG/MIN Piperacillin Sod/Tazobactam 50 mls @ 100 mls/hr 10/29/18 18:00 11/02/18 12:06 Sod 2.25 gm/ Dextrose IVPB 100 mls/hr Q8H-IV CHANTELL Administration Protocol Sodium Chloride 250 mls @ 3,000 mls/hr 10/30/18 09:32 Normal Saline - IV 10/31/18 09:32 PRN PRN Hypotension during Dialysis Daptomycin 760 mg/ Sodium 100 mls @ 200 mls/hr 11/02/18 10:15 11/02/18 13:14 Chloride IVPB 200 mls/hr Q48H CHANTELL Administration Protocol Pantoprazole Sodium 40 mg 10/30/18 10:00 11/02/18 12:06 Protonix Iv IVPUSH 40 mg DAILY CHANTELL Administration Microbiology 10/31/18 12:43 Catheter Site Gram Stain - Final 10/31/18 12:43 Catheter Site Wound Culture - Final Mr S Aureus 10/30/18 13:00 Blood - Pre-Dialysis Blood Culture - Final Mr S Aureus 10/30/18 10:40 Blood - Peripheral Venous Blood Culture - Final Mr S Aureus 10/30/18 10:25 Blood - Peripheral Venous Blood Culture - Final Mr S Aureus 10/29/18 06:50 Blood - Peripheral Venous Blood Culture - Final Mr S Aureus 10/29/18 06:50 Blood - Peripheral Venous Blood Culture - Final Mr S Aureus 11/01/18 05:45 Blood - Peripheral Venous Blood Culture - Preliminary Pending Organism 11/01/18 05:30 Blood - Peripheral Venous Blood Culture - Preliminary Pending Organism Impression 1. ESRD 2. acute rep failure 3. DM 4. hyperlipidemia 5. HTN 6. gout 7. proteinuria 8. hypotension/shock 9. sepsis 10. bacteremia Plan - hold off HD today - repeat labs in am - lytes and volume status is stable - evaluate daily for HD, will need shiley on given HD date - monitor hg - vent support - discussed with ICU team - abx per ID
[2018-11-02] MEDS: NOREPINEPHRINE BITARTRATE 8,000 MCG in SODIUM CHLORIDE 492 ML IV SCH (20:28)
[2018-11-02] MEDS ORDERED: ACETYLCYSTEINE 20% 200MG/ML 4 ML VIAL *FOR ORAL / INH USE ONLY NEB ONE (22:15)
[2018-11-02] MEDS ORDERED: ACETYLCYSTEINE 20% 200MG/ML 30 ML VIAL *FOR ORAL / INH USE ONLY NEB ONE (22:15)
[2018-11-02] MEDS ORDERED: ALBUTEROL SO4 0.083% IH SOL 2.5 MG/3 ML VIAL.NEB. NEB ONE (22:16)
[2018-11-02] MEDS ORDERED: ACETYLCYSTEINE 20% 200MG/ML 4 ML VIAL *FOR ORAL / INH USE ONLY ONE (22:21)
[2018-11-03] MEDS ORDERED: DEXTROSE 5%-WATER - 50 ML IVPB ONE ×3 (02:37→17:44)
[2018-11-03] MEDS ORDERED: PIPERACILLIN/TAZOBACTAM 2.25 GM VIAL IVPB ONE ×3 (02:37→17:44)
[2018-11-03] MEDS: PIPERACILLIN/TAZOB 2.25 GM 2.25 GM in DEXTROSE 5%-WATER - 50 ML IVPB SCH ×3 (02:40→17:51)
[2018-11-03 07:13] LABS: HEMATOCRIT 25.2 % (35.4-49); HEMOGLOBIN 8.2 GM/dL (11.7-16.9); MCH 29.6 pg (25.7-33.7); MCHC 32.7 g/dl (32.0-35.9); MEAN CELL VOLUME 90.6 fl (80-96); MEAN PLT VOLUME 9.4 fl (7.5-11.1); PLATELET COUNT 181 K/MM3 (134-434); RBC 2.78 M/mm3 (4.00-5.60); RDW 16.6 % (11.9-15.9); WHITE BLOOD COUNT 11.4 K/mm3 (4.0-10.0)
[2018-11-03 07:19] LABS: ALBUMIN 1.4 g/dl (3.4-5.0); ALK PHOS 167 U/L (45-117); ANION GAP 8 MMOL/L (8-16); BILIRUBIN,TOTAL 0.3 mg/dL (0.2-1); BLOOD UREA NITROGEN 58 mg/dL (7-18); CALCIUM 7.1 mg/dL (8.5-10.1); CHLORIDE 104 mmol/L (98-107); CO2 30 mmol/L (21-32); CREATININE 6.6 mg/dL (0.55-1.3); GLUCOSE,RANDOM 103 mg/dL (74-106); MAGNESIUM 2.2 mg/dL (1.8-2.4); PHOSPHOROUS 2.9 mg/dL (2.5-4.9); POTASSIUM 3.8 mmol/L (3.5-5.1); SGOT/AST 22 U/L (15-37); SGPT/ALT 18 U/L (13-61); SODIUM 141 mmol/L (136-145)
[2018-11-03 07:49] LABS: PROTHROMBIN TIME (PATIENT) 35.8 SEC (9.7-13.0)
--- NOTE | 2018-11-03 08:15 | PN ---
Progress Note (short form) - Note Progress Note: PULM/CCM Pt Seen & Examined in the ICU. Lethargic but remains Extubated. Active Medications Collagenase (Santyl -) 1 applic TP DAILY CHANTELL; Protocol Last Admin: 11/03/18 09:56 Dose: 1 applic Norepinephrine Bitartrate 8, (000 mcg/ Sodium Chloride) 500 mls @ 18.75 mls/hr IV TITR CHANTELL; Protocol Last Admin: 11/03/18 15:00 Dose: Not Given Piperacillin Sod/Tazobactam (Sod 2.25 gm/ Dextrose) 50 mls @ 100 mls/hr IVPB Q8H-IV CHANTELL; Protocol Last Admin: 11/03/18 17:51 Dose: 100 mls/hr Sodium Chloride (Normal Saline -) 250 mls @ 3,000 mls/hr IV PRN PRN PRN Reason: Hypotension during Dialysis Stop: 10/31/18 09:32 Daptomycin 760 mg/ Sodium (Chloride) 100 mls @ 200 mls/hr IVPB Q48H CHANTELL; Protocol Last Admin: 11/02/18 13:14 Dose: 200 mls/hr Sodium Chloride (Normal Saline -) 250 mls @ 3,000 mls/hr IV PRN PRN PRN Reason: Hypotension during Dialysis Stop: 11/04/18 09:51 Pantoprazole Sodium (Protonix Iv) 40 mg IVPUSH DAILY CHANTELL Last Admin: 11/03/18 09:56 Dose: 40 mg Vital Signs Period Temp Pulse Resp BP Sys/Zamorano Pulse Ox Last 24 Hr 97.7 F-98.5 F 18-86 16-28 117-156/54-92 100-100 Intake & Output 10/31/18 11/01/18 11/02/18 11/03/18 23:59 23:59 23:59 23:59 Intake Total 1390.7 1145.4 534 170 Balance 1390.7 1145.4 534 170 Weight 84.459 kg 95.164 kg 95.164 kg GEN: Elderly man, ill, lethargic PULM: B/L rhonchi CV: nml, s1s2 distant ABD: + BS, S/S N/T N/D X4Q EXT: peripheral edema CBC, BMP 11/03/18 05:05 11/03/18 05:05 Microbiology 10/30/18 15:00 Sputum - Endotrachea Suction/Ventilator Gram Stain - Final 10/30/18 15:00 Sputum - Endotrachea Suction/Ventilator Sputum Culture - Final Escherichia Coli Esbl Dishwasher Mr S Aureus 11/01/18 05:45 Blood - Peripheral Venous Blood Culture - Final Mr S Aureus 11/01/18 05:30 Blood - Peripheral Venous Blood Culture - Final Mr S Aureus 10/29/18 06:50 Blood - Peripheral Venous Blood Culture - Final Mr S Aureus 10/29/18 06:50 Blood - Peripheral Venous Blood Culture - Final Mr S Aureus 10/31/18 12:43 Catheter Site Gram Stain - Final 10/31/18 12:43 Catheter Site Wound Culture - Final Mr S Aureus 10/30/18 13:00 Blood - Pre-Dialysis Blood Culture - Final Mr S Aureus 10/30/18 10:40 Blood - Peripheral Venous Blood Culture - Final Mr S Aureus 10/30/18 10:25 Blood - Peripheral Venous Blood Culture - Final Mr S Aureus 10/29/18 08:00 Urine - Urine Clean Catch Urine Culture - Final NO GROWTH OBTAINED RECENT IMAGING TO NOTE: CXR 11/03: A single AP view of the chest has been submitted. Since the prior study of 11-02-2018, the endotracheal tube and nasogastric tube have been removed. The left jugular line persists. The increased markings in the left hemithorax have diminished slightly. There is a persistently elevated right hemidiaphragm with some new fluid in the horizontal fissure and possible right upper lobe and right perihilar infiltrate. There is some atelectasis at the right base. Follow-up recommended. ASSESSMENT AND PLAN: Acute Hypoxic Respiratory Failure Pneumonia r/o Diabetic Foot Ulcer Infection r/o Permacath Infection MRSA Bacteremia Septic Shock ESRD on HD Lactic Acidosis +Troponins likely Demand Ischemia Supratherapeutic INR Atrial Fibrillation h/o CVA Severe Mitral Regurgitation HTN DM COPD - NPO - HOB > 30 - Taper Fio2 to keep SpO2 >90% - continue antibiotics per ID - may need ALEJO if persistently bacteremic - wound care - monitor INR with goal 2-3 - rate control - Dialysis Cath & HD Today - DVT/GI prophylaxis - D/c Med Surg s/p HD DGL, ACNP-BC [facility] ICU PULM/[facility] [id number] Critical Care Total Critical Care Time (in minutes): 40 Critical Care Statement: The care of this patient involved high complexity decision making to prevent further life threatening deterioration of the patient 's condition and/or to evaluate & treat vital organ system(s) failure or risk of failure.
--- NOTE | 2018-11-03 09:45 | PN ---
Progress Note (short form) - Note Progress Note: RENAL Pt seen in icu He has been extubated and has bilateral air entry Last Vital Signs Temp Pulse Resp BP Pulse Ox 97.7 F 82 25 H 119/69 100 11/03/18 02:00 11/03/18 08:00 11/03/18 08:00 11/03/18 08:00 11/03/18 08:16 lungs rhonchi cvs s1s2 distant abd soft ext no edema neuro lethargic CBC, BMP 11/03/18 05:05 11/03/18 05:05 Current Medications Generic Name Dose Route Start Last Admin Trade Name Freq PRN Reason Stop Dose Admin Collagenase 1 applic 10/30/18 10:00 11/02/18 12:02 Santyl - TP 1 applic DAILY CHANTELL Administration Protocol Norepinephrine Bitartrate 8, 500 mls @ 18.75 mls/hr 10/29/18 15:04 11/02/18 20:28 000 mcg/ Sodium Chloride IV Not Given TITR CHANTELL Protocol 5 MCG/MIN Piperacillin Sod/Tazobactam 50 mls @ 100 mls/hr 10/29/18 18:00 11/03/18 02:40 Sod 2.25 gm/ Dextrose IVPB 100 mls/hr Q8H-IV CHANTELL Administration Protocol Sodium Chloride 250 mls @ 3,000 mls/hr 10/30/18 09:32 Normal Saline - IV 10/31/18 09:32 PRN PRN Hypotension during Dialysis Daptomycin 760 mg/ Sodium 100 mls @ 200 mls/hr 11/02/18 10:15 11/02/18 13:14 Chloride IVPB 200 mls/hr Q48H CHANTELL Administration Protocol Pantoprazole Sodium 40 mg 10/30/18 10:00 11/02/18 12:06 Protonix Iv IVPUSH 40 mg DAILY CHANTELL Administration cxr reviewed. Appears to have some fluid in the fissure Impression 1. ESRD 2. acute rep failure 3. DM 4. hyperlipidemia 5. HTN 6. gout 7. proteinuria 8. hypotension/shock 9. sepsis 10. MRSA bacteremia Plan would continue antibiotics and pressors and insert temporary access for HD today He was last dialyze on 10/30 may need some fluid removal MV
[2018-11-03] MEDS ORDERED: SODIUM CHLORIDE 250 ML IV PRN (09:50)
[2018-11-03] MEDS: PANTOPRAZOLE SODIUM 40 MG VIAL IVPUSH SCH (09:56)
[2018-11-03] MEDS: COLLAGENASE CLOSTRIDIUM HIST. 30 GRAMS TUBE TP SCH (09:56)
[2018-11-03] MEDS ORDERED: PT OWN MED DRAWER 7, Y5N ONE ×2 (10:50→12:03)
--- NOTE | 2018-11-03 11:01 | PN ---
Progress Note, Physician Chief Complaint: EXTUBATED AWAKE, ALERT OFFERS NO COMPLAINTS BREATHING NON-LABORED TEMPS DOWN REPEAT BC SENT THIS AM CXR L LUNG INFILTRATE ATELECTASIS R LUNG FIELD FOR INSERTION OF DIALYSIS CATHETER TODAY - Current Medication List Current Medications: Active Medications Collagenase (Santyl -) 1 applic TP DAILY CHANTELL; Protocol Last Admin: 11/03/18 09:56 Dose: 1 applic Norepinephrine Bitartrate 8, (000 mcg/ Sodium Chloride) 500 mls @ 18.75 mls/hr IV TITR CHANTELL; Protocol Last Admin: 11/02/18 20:28 Dose: Not Given Piperacillin Sod/Tazobactam (Sod 2.25 gm/ Dextrose) 50 mls @ 100 mls/hr IVPB Q8H-IV CHANTELL; Protocol Last Admin: 11/03/18 10:01 Dose: 100 mls/hr Sodium Chloride (Normal Saline -) 250 mls @ 3,000 mls/hr IV PRN PRN PRN Reason: Hypotension during Dialysis Stop: 10/31/18 09:32 Daptomycin 760 mg/ Sodium (Chloride) 100 mls @ 200 mls/hr IVPB Q48H CHANTELL; Protocol Last Admin: 11/02/18 13:14 Dose: 200 mls/hr Sodium Chloride (Normal Saline -) 250 mls @ 3,000 mls/hr IV PRN PRN PRN Reason: Hypotension during Dialysis Stop: 11/04/18 09:51 Pantoprazole Sodium (Protonix Iv) 40 mg IVPUSH DAILY CHANTELL Last Admin: 11/03/18 09:56 Dose: 40 mg - Objective Vital Signs: Vital Signs Temperature 97.7 F 11/03/18 02:00 Pulse Rate 82 11/03/18 08:00 Respiratory Rate 25 H 11/03/18 08:00 Blood Pressure 119/69 11/03/18 08:00 O2 Sat by Pulse Oximetry (%) 100 11/03/18 08:16 Constitutional: Yes: No Distress Eyes: Yes: Conjunctiva Clear Cardiovascular: Yes: Regular Rate and Rhythm, S1, S2 Respiratory: Yes: Diminished Gastrointestinal: Yes: Normal Bowel Sounds, Soft. No: Tenderness Extremities: Yes: Other (R FOOT ULCERS) Labs: CBC, BMP 11/03/18 05:05 11/03/18 05:05 INR, PTT INR 3.00 (0.83-1.09) H 11/03/18 05:30 Assessment/Plan SEPSIS/ SEPTIC SHOCK IMPROVED OFF PRESSORS STAPH BACTEREMIA MRSA ? FOOT SOURCE ? CATHETER CATHETER REMOVED RESP FAILURE S/P EXTUBATION ACUTE EXACERBATION COPD ? L PNEUMONIA COAGULOPATHY NON HEALING FOOT ULCERS REPEAT BC DONE THIS AM CONTINUE DAPTOMYCIN 8MG/KG CONTINUE ZOSYN VENTILATORY/ HEMODYNAMIC SUPPORT
--- NOTE | 2018-11-03 12:54 | PN ---
Progress Note, Physician - Current Medication List Current Medications: Active Medications Collagenase (Santyl -) 1 applic TP DAILY CHANTELL; Protocol Last Admin: 11/03/18 09:56 Dose: 1 applic Norepinephrine Bitartrate 8, (000 mcg/ Sodium Chloride) 500 mls @ 18.75 mls/hr IV TITR CHANTELL; Protocol Last Admin: 11/02/18 20:28 Dose: Not Given Piperacillin Sod/Tazobactam (Sod 2.25 gm/ Dextrose) 50 mls @ 100 mls/hr IVPB Q8H-IV CHANTELL; Protocol Last Admin: 11/03/18 10:01 Dose: 100 mls/hr Sodium Chloride (Normal Saline -) 250 mls @ 3,000 mls/hr IV PRN PRN PRN Reason: Hypotension during Dialysis Stop: 10/31/18 09:32 Daptomycin 760 mg/ Sodium (Chloride) 100 mls @ 200 mls/hr IVPB Q48H CHANTELL; Protocol Last Admin: 11/02/18 13:14 Dose: 200 mls/hr Sodium Chloride (Normal Saline -) 250 mls @ 3,000 mls/hr IV PRN PRN PRN Reason: Hypotension during Dialysis Stop: 11/04/18 09:51 Pantoprazole Sodium (Protonix Iv) 40 mg IVPUSH DAILY CHANTELL Last Admin: 11/03/18 09:56 Dose: 40 mg - Objective Vital Signs: Vital Signs Temperature 98.5 F 11/03/18 12:15 Pulse Rate 72 11/03/18 12:20 Respiratory Rate 18 11/03/18 12:20 Blood Pressure 147/73 11/03/18 12:20 O2 Sat by Pulse Oximetry (%) 100 11/03/18 08:16 Cardiovascular: Yes: S1, S2 Respiratory: Yes: On Venti-Mask Gastrointestinal: Yes: Normal Bowel Sounds, Soft Labs: CBC, BMP 11/03/18 05:05 11/03/18 05:05 INR, PTT INR 3.00 (0.83-1.09) H 11/03/18 05:30 Assessment/Plan - Problems (1) Acute hypoxemic respiratory failure Assessment/Plan: eXtubated off sedation icu monitoring Code(s): J96.01 - ACUTE RESPIRATORY FAILURE WITH HYPOXIA (2) Supratherapeutic INR Assessment/Plan: got vitamin K in er on admission on coumadin for afib monitor INR- Code(s): R79.1 - ABNORMAL COAGULATION PROFILE (3) ESRD (end stage renal disease) Assessment/Plan: HD per renal Code(s): N18.6 - END STAGE RENAL DISEASE (4) Wound, open, foot Assessment/Plan: podiatry ID broad abx dvt ppx wound care santyl Code(s): S91.309A - UNSPECIFIED OPEN WOUND, UNSPECIFIED FOOT, INITIAL ENCOUNTER Qualifiers: Laterality: right (5) Sepsis Assessment/Plan: Microbiology 10/31/18 12:43 Catheter Site Gram Stain - Final 10/30/18 15:00 Sputum - Endotrachea Suction/Ventilator Gram Stain - Final 10/31/18 12:43 Catheter Site Wound Culture - Preliminary Staphylococcus Latex Coag Pos 10/30/18 15:00 Sputum - Endotrachea Suction/Ventilator Sputum Culture - Preliminary Lactose Fermenting Neg Bacilli Presumptive Mrsa (Pbp2a Pos) 10/30/18 13:00 Blood - Pre-Dialysis Blood Culture - Preliminary Staphylococcus Latex Coag Pos 10/30/18 10:40 Blood - Peripheral Venous Blood Culture - Preliminary Staphylococcus Latex Coag Pos echo don no vegetation daptomycin zosyn Microbiology 10/31/18 12:43 Catheter Site Gram Stain - Final 10/31/18 12:43 Catheter Site Wound Culture - Final Mr S Aureus 11/01/18 05:45 Blood - Peripheral Venous Blood Culture - Preliminary Pending Organism 11/01/18 05:30 Blood - Peripheral Venous Blood Culture - Preliminary Pending Organism off preosrs Code(s): A41.9 - SEPSIS, UNSPECIFIED ORGANISM Qualifiers: Sepsis type: sepsis due to unspecified organism Qualified Code(s): A41.9 - Sepsis, unspecified organism
[2018-11-03] MEDS: NOREPINEPHRINE BITARTRATE 8,000 MCG in SODIUM CHLORIDE 492 ML IV SCH (15:00)
--- NOTE | 2018-11-03 19:15 | PROC ---
Central Line Insertion Indication: Other (HD) Risks and Benefits Explained: Yes Consent on Chart: Yes Central Line: Dialysis Cath, Dual Lumen Anesthesia: 1% Lidocaine Sterile Technique: Yes Ultrasound Guided Assistance: Yes Position: Right Femoral Sterile Dressing Applied: Yes
[2018-11-04] MEDS: PIPERACILLIN/TAZOB 2.25 GM 2.25 GM in DEXTROSE 5%-WATER - 50 ML IVPB SCH ×3 (01:17→17:23)
[2018-11-04 05:58] LABS: HEMATOCRIT 25.3 % (35.4-49); HEMOGLOBIN 8.2 GM/dL (11.7-16.9); MCH 29.6 pg (25.7-33.7); MCHC 32.4 g/dl (32.0-35.9); MEAN CELL VOLUME 91.2 fl (80-96); PLATELET COUNT 188 K/MM3 (134-434); RBC 2.77 M/mm3 (4.00-5.60); RDW 16.6 % (11.9-15.9); WHITE BLOOD COUNT 11.2 K/mm3 (4.0-10.0)
[2018-11-04] MEDS ORDERED: DEXTROSE 5%-WATER - 50 ML IVPB ONE ×2 (08:56→17:09)
[2018-11-04] MEDS ORDERED: PIPERACILLIN/TAZOBACTAM 2.25 GM VIAL IVPB ONE ×2 (08:56→17:09)
--- NOTE | 2018-11-04 09:10 | PN ---
Progress Note (short form) - Note Progress Note: RENAL Pt seen in icu Tolerated dialysis via femoral catheter yesterday requires suctioning Last Vital Signs Temp Pulse Resp BP Pulse Ox 98.9 F 75 20 124/44 L 100 11/04/18 07:48 11/04/18 07:48 11/04/18 07:53 11/04/18 07:48 11/04/18 07:59 lungs rhonchi cvs s1s2 distant abd soft ext no edema neuro lethargic CBC, BMP 11/04/18 05:30 11/03/18 05:05 Generic Name Dose Route Start Last Admin Trade Name Freq PRN Reason Stop Dose Admin Collagenase 1 applic 10/30/18 10:00 11/03/18 09:56 Santyl - TP 1 applic DAILY CHANTELL Administration Protocol Norepinephrine Bitartrate 8, 500 mls @ 18.75 mls/hr 10/29/18 15:04 11/03/18 15:00 000 mcg/ Sodium Chloride IV Not Given TITR CHANTELL Protocol 5 MCG/MIN Piperacillin Sod/Tazobactam 50 mls @ 100 mls/hr 10/29/18 18:00 11/04/18 01:17 Sod 2.25 gm/ Dextrose IVPB 100 mls/hr Q8H-IV CHANTELL Administration Protocol Sodium Chloride 250 mls @ 3,000 mls/hr 10/30/18 09:32 Normal Saline - IV 10/31/18 09:32 PRN PRN Hypotension during Dialysis Daptomycin 760 mg/ Sodium 100 mls @ 200 mls/hr 11/02/18 10:15 11/02/18 13:14 Chloride IVPB 200 mls/hr Q48H CHANTELL Administration Protocol Sodium Chloride 250 mls @ 3,000 mls/hr 11/03/18 09:50 Normal Saline - IV 11/04/18 09:51 PRN PRN Hypotension during Dialysis Pantoprazole Sodium 40 mg 10/30/18 10:00 11/03/18 09:56 Protonix Iv IVPUSH 40 mg DAILY CHANTELL Administration cxr reviewed. Appears to have some fluid in the fissure Impression 1. ESRD 2. acute rep failure 3. DM 4. hyperlipidemia 5. HTN 6. gout 7. proteinuria 8. hypotension/shock 9. sepsis 10. MRSA bacteremia Plan seems to be doing better will be evaluated again for hd tomorrow so catheter can be removed to get KARLEE continue antibiotics monitor cultures so he can get another access MV MV
[2018-11-04] MEDS: COLLAGENASE CLOSTRIDIUM HIST. 30 GRAMS TUBE TP SCH (09:27)
[2018-11-04] MEDS: PANTOPRAZOLE SODIUM 40 MG VIAL IVPUSH SCH (09:27)
--- NOTE | 2018-11-04 10:48 | PN ---
Progress Note, Physician - Current Medication List Current Medications: Active Medications Collagenase (Santyl -) 1 applic TP DAILY CHANTELL; Protocol Last Admin: 11/04/18 09:27 Dose: 1 applic Norepinephrine Bitartrate 8, (000 mcg/ Sodium Chloride) 500 mls @ 18.75 mls/hr IV TITR CHANTELL; Protocol Last Admin: 11/03/18 15:00 Dose: Not Given Piperacillin Sod/Tazobactam (Sod 2.25 gm/ Dextrose) 50 mls @ 100 mls/hr IVPB Q8H-IV CHANTELL; Protocol Last Admin: 11/04/18 09:27 Dose: 100 mls/hr Sodium Chloride (Normal Saline -) 250 mls @ 3,000 mls/hr IV PRN PRN PRN Reason: Hypotension during Dialysis Stop: 10/31/18 09:32 Daptomycin 760 mg/ Sodium (Chloride) 100 mls @ 200 mls/hr IVPB Q48H CHANTELL; Protocol Last Admin: 11/02/18 13:14 Dose: 200 mls/hr Sodium Chloride (Normal Saline -) 250 mls @ 3,000 mls/hr IV PRN PRN PRN Reason: Hypotension during Dialysis Stop: 11/04/18 09:51 Pantoprazole Sodium (Protonix Iv) 40 mg IVPUSH DAILY CHANTELL Last Admin: 11/04/18 09:27 Dose: 40 mg - Objective Vital Signs: Vital Signs Temperature 98.9 F 11/04/18 07:48 Pulse Rate 75 11/04/18 07:48 Respiratory Rate 20 11/04/18 07:53 Blood Pressure 124/44 L 11/04/18 07:48 O2 Sat by Pulse Oximetry (%) 100 11/04/18 07:59 Cardiovascular: Yes: S1, S2 Respiratory: Yes: On Venti-Mask Labs: CBC, BMP 11/04/18 05:30 11/03/18 05:05 INR, PTT INR 3.00 (0.83-1.09) H 11/03/18 05:30 Assessment/Plan - Problems (1) Acute hypoxemic respiratory failure Assessment/Plan: eXtubated off sedation icu monitoring Code(s): J96.01 - ACUTE RESPIRATORY FAILURE WITH HYPOXIA (2) Supratherapeutic INR Assessment/Plan: got vitamin K in er on admission on coumadin for afib monitor INR- Code(s): R79.1 - ABNORMAL COAGULATION PROFILE (3) ESRD (end stage renal disease) Assessment/Plan: HD per renal Code(s): N18.6 - END STAGE RENAL DISEASE (4) Wound, open, foot Assessment/Plan: podiatry ID broad abx dvt ppx wound care santyl Code(s): S91.309A - UNSPECIFIED OPEN WOUND, UNSPECIFIED FOOT, INITIAL ENCOUNTER Qualifiers: Laterality: right (5) Sepsis Assessment/Plan: Microbiology 10/31/18 12:43 Catheter Site Gram Stain - Final 10/30/18 15:00 Sputum - Endotrachea Suction/Ventilator Gram Stain - Final 10/31/18 12:43 Catheter Site Wound Culture - Preliminary Staphylococcus Latex Coag Pos 10/30/18 15:00 Sputum - Endotrachea Suction/Ventilator Sputum Culture - Preliminary Lactose Fermenting Neg Bacilli Presumptive Mrsa (Pbp2a Pos) 10/30/18 13:00 Blood - Pre-Dialysis Blood Culture - Preliminary Staphylococcus Latex Coag Pos 10/30/18 10:40 Blood - Peripheral Venous Blood Culture - Preliminary Staphylococcus Latex Coag Pos echo don no vegetation daptomycin zosyn Microbiology 10/31/18 12:43 Catheter Site Gram Stain - Final 10/31/18 12:43 Catheter Site Wound Culture - Final Mr S Aureus 11/01/18 05:45 Blood - Peripheral Venous Blood Culture - Preliminary Pending Organism 11/01/18 05:30 Blood - Peripheral Venous Blood Culture - Preliminary Pending Organism off preosrs Code(s): A41.9 - SEPSIS, UNSPECIFIED ORGANISM Qualifiers: Sepsis type: sepsis due to unspecified organism Qualified Code(s): A41.9 - Sepsis, unspecified organism
[2018-11-04] MEDS: DAPTOMYCIN IVPB SCH (11:32)
[2018-11-04] MEDS: SODIUM CHLORIDE IVPB SCH (11:32)
--- NOTE | 2018-11-04 11:47 | PN ---
Progress Note, Physician Chief Complaint: EXTUBATED BREATHING NON LABORED ON VENTIMASK + PULMONARY SECRETIONS POORLY RESPONSIVE TEMPS DOWN REPEAT BC +GPPCCL CXR L LUNG INFILTRATE ATELECTASIS R LUNG FIELD FOR REPEAT DOSE DAPTOMYCIN TODAY - Current Medication List Current Medications: Active Medications Collagenase (Santyl -) 1 applic TP DAILY CHANTELL; Protocol Last Admin: 11/04/18 09:27 Dose: 1 applic Norepinephrine Bitartrate 8, (000 mcg/ Sodium Chloride) 500 mls @ 18.75 mls/hr IV TITR CHANTELL; Protocol Last Admin: 11/03/18 15:00 Dose: Not Given Piperacillin Sod/Tazobactam (Sod 2.25 gm/ Dextrose) 50 mls @ 100 mls/hr IVPB Q8H-IV CHANTELL; Protocol Last Admin: 11/04/18 09:27 Dose: 100 mls/hr Sodium Chloride (Normal Saline -) 250 mls @ 3,000 mls/hr IV PRN PRN PRN Reason: Hypotension during Dialysis Stop: 10/31/18 09:32 Daptomycin 760 mg/ Sodium (Chloride) 100 mls @ 200 mls/hr IVPB Q48H CHANTELL; Protocol Last Admin: 11/04/18 11:32 Dose: 200 mls/hr Sodium Chloride (Normal Saline -) 250 mls @ 3,000 mls/hr IV PRN PRN PRN Reason: Hypotension during Dialysis Stop: 11/04/18 09:51 Pantoprazole Sodium (Protonix Iv) 40 mg IVPUSH DAILY CHANTELL Last Admin: 11/04/18 09:27 Dose: 40 mg - Objective Vital Signs: Vital Signs Temperature 98.9 F 11/04/18 07:48 Pulse Rate 75 11/04/18 07:48 Respiratory Rate 20 11/04/18 07:53 Blood Pressure 124/44 L 11/04/18 07:48 O2 Sat by Pulse Oximetry (%) 100 11/04/18 07:59 Constitutional: Yes: No Distress Eyes: Yes: Conjunctiva Clear Cardiovascular: Yes: Regular Rate and Rhythm, S1, S2 Respiratory: Yes: Rhonchi Gastrointestinal: Yes: Normal Bowel Sounds, Soft. No: Tenderness Edema: Yes Labs: CBC, BMP 11/04/18 05:30 11/03/18 05:05 INR, PTT INR 3.00 (0.83-1.09) H 11/03/18 05:30 Assessment/Plan SEPSIS/ SEPTIC SHOCK OFF PRESSORS STAPH BACTEREMIA MRSA ? FOOT SOURCE ? CATHETER CATHETER REMOVED RESP FAILURE S/P EXTUBATION ACUTE EXACERBATION COPD ? L PNEUMONIA COAGULOPATHY NON HEALING FOOT ULCERS REPEAT BC REMAIN POSITIVE CONTINUE DAPTOMYCIN 8MG/KG CONTINUE ZOSYN VENTILATORY/ HEMODYNAMIC SUPPORT
--- NOTE | 2018-11-04 17:12 | PN ---
Progress Note (short form) - Note Progress Note: PULM/CCM Pt Seen & Examined in the ICU. Lethargic but remains Extubated. Dialysis Cath placed in R groin yesterday and successful HD. Active Medications Collagenase (Santyl -) 1 applic TP DAILY CHANTELL; Protocol Last Admin: 11/04/18 09:27 Dose: 1 applic Norepinephrine Bitartrate 8, (000 mcg/ Sodium Chloride) 500 mls @ 18.75 mls/hr IV TITR CHANTELL; Protocol Last Admin: 11/03/18 15:00 Dose: Not Given Piperacillin Sod/Tazobactam (Sod 2.25 gm/ Dextrose) 50 mls @ 100 mls/hr IVPB Q8H-IV CHANTELL; Protocol Last Admin: 11/04/18 09:27 Dose: 100 mls/hr Sodium Chloride (Normal Saline -) 250 mls @ 3,000 mls/hr IV PRN PRN PRN Reason: Hypotension during Dialysis Stop: 10/31/18 09:32 Daptomycin 760 mg/ Sodium (Chloride) 100 mls @ 200 mls/hr IVPB Q48H CHANTELL; Protocol Last Admin: 11/04/18 11:32 Dose: 200 mls/hr Sodium Chloride (Normal Saline -) 250 mls @ 3,000 mls/hr IV PRN PRN PRN Reason: Hypotension during Dialysis Stop: 11/04/18 09:51 Pantoprazole Sodium (Protonix Iv) 40 mg IVPUSH DAILY CHANTELL Last Admin: 11/04/18 09:27 Dose: 40 mg Vital Signs Period Temp Pulse Resp BP Sys/Zamorano Pulse Ox Last 24 Hr 98.1 F-99.1 F 71-90 18-28 116-156/44-92 100-100 Intake & Output 11/01/18 11/02/18 11/03/18 11/04/18 23:59 23:59 23:59 23:59 Intake Total 1145.4 534 170 170 Balance 1145.4 534 170 170 Weight 84.459 kg 95.164 kg 95.164 kg 95.164 kg GEN: Elderly man, ill, lethargic PULM: B/L rhonchi CV: nml, s1s2 distant ABD: + BS, S/S N/T N/D X4Q EXT: peripheral edema, R Groin HD Cath C/D/I CBC, BMP 11/04/18 05:30 11/03/18 05:05 Microbiology 10/30/18 15:00 Sputum - Endotrachea Suction/Ventilator Gram Stain - Final 10/30/18 15:00 Sputum - Endotrachea Suction/Ventilator Sputum Culture - Final Escherichia Coli Esbl Scheduler S Aureus 11/01/18 05:45 Blood - Peripheral Venous Blood Culture - Final Mr S Aureus 11/01/18 05:30 Blood - Peripheral Venous Blood Culture - Final Mr S Aureus 10/29/18 06:50 Blood - Peripheral Venous Blood Culture - Final Mr S Aureus 10/29/18 06:50 Blood - Peripheral Venous Blood Culture - Final Mr S Aureus 10/31/18 12:43 Catheter Site Gram Stain - Final 10/31/18 12:43 Catheter Site Wound Culture - Final Mr S Aureus 10/30/18 13:00 Blood - Pre-Dialysis Blood Culture - Final Mr S Aureus 10/30/18 10:40 Blood - Peripheral Venous Blood Culture - Final Mr S Aureus 10/30/18 10:25 Blood - Peripheral Venous Blood Culture - Final Mr S Aureus 10/29/18 08:00 Urine - Urine Clean Catch Urine Culture - Final NO GROWTH OBTAINED RECENT IMAGING TO NOTE: CXR 11/03: A single AP view of the chest has been submitted. Since the prior study of 11-02-2018, the endotracheal tube and nasogastric tube have been removed. The left jugular line persists. The increased markings in the left hemithorax have diminished slightly. There is a persistently elevated right hemidiaphragm with some new fluid in the horizontal fissure and possible right upper lobe and right perihilar infiltrate. There is some atelectasis at the right base. Follow-up recommended. ASSESSMENT AND PLAN: s/p Acute Hypoxic Respiratory Failure Pneumonia r/o Diabetic Foot Ulcer Infection r/o Permacath Infection MRSA Bacteremia Septic Shock ESRD on HD Lactic Acidosis +Troponins likely Demand Ischemia Supratherapeutic INR Atrial Fibrillation h/o CVA Severe Mitral Regurgitation HTN DM COPD - NPO - HOB > 30 - Taper Fio2 to keep SpO2 >90% - continue antibiotics per ID - may need ALEJO if persistently bacteremic - wound care - monitor INR with goal 2-3 - rate control - Dialysis Cath & HD Today - DVT/GI prophylaxis - D/c Med Surg s/p HD DGL, ACNP-BC [facility] ICU PULM/CCM [id number]
[2018-11-04] MEDS: NOREPINEPHRINE BITARTRATE 8,000 MCG in SODIUM CHLORIDE 492 ML IV SCH (17:23)
[2018-11-05] MEDS ORDERED: PIPERACILLIN/TAZOBACTAM 2.25 GM VIAL IVPB ONE ×2 (01:45→10:14)
[2018-11-05] MEDS ORDERED: DEXTROSE 5%-WATER - 50 ML IVPB ONE ×2 (01:45→10:14)
[2018-11-05] MEDS: PIPERACILLIN/TAZOB 2.25 GM 2.25 GM in DEXTROSE 5%-WATER - 50 ML IVPB SCH ×2 (01:58→10:26)
[2018-11-05 06:10] LABS: HEMOGLOBIN 8.5 GM/dL (11.7-16.9); MCH 29.8 pg (25.7-33.7); MCHC 32.6 g/dl (32.0-35.9); MEAN CELL VOLUME 91.4 fl (80-96); MEAN PLT VOLUME 8.7 fl (7.5-11.1); PLATELET COUNT 216 K/MM3 (134-434); RBC 2.84 M/mm3 (4.00-5.60); RDW 16.4 % (11.9-15.9); WHITE BLOOD COUNT 10.2 K/mm3 (4.0-10.0)
--- NOTE | 2018-11-05 08:57 | PN ---
Progress Note, Physician Chief Complaint: IN ICU EVENTS AND NOTES REVIEWED EXTUBATED ON 02 MASK SUPPORT LETHARGIC - Current Medication List Current Medications: Active Medications Collagenase (Santyl -) 1 applic TP DAILY CHANTELL; Protocol Last Admin: 11/04/18 09:27 Dose: 1 applic Norepinephrine Bitartrate 8, (000 mcg/ Sodium Chloride) 500 mls @ 18.75 mls/hr IV TITR CHANTELL; Protocol Last Admin: 11/04/18 17:23 Dose: Not Given Piperacillin Sod/Tazobactam (Sod 2.25 gm/ Dextrose) 50 mls @ 100 mls/hr IVPB Q8H-IV CHANTELL; Protocol Last Admin: 11/05/18 01:58 Dose: 100 mls/hr Sodium Chloride (Normal Saline -) 250 mls @ 3,000 mls/hr IV PRN PRN PRN Reason: Hypotension during Dialysis Stop: 10/31/18 09:32 Daptomycin 760 mg/ Sodium (Chloride) 100 mls @ 200 mls/hr IVPB Q48H CHANTELL; Protocol Last Admin: 11/04/18 11:32 Dose: 200 mls/hr Sodium Chloride (Normal Saline -) 250 mls @ 3,000 mls/hr IV PRN PRN PRN Reason: Hypotension during Dialysis Stop: 11/04/18 09:51 Pantoprazole Sodium (Protonix Iv) 40 mg IVPUSH DAILY CHANTELL Last Admin: 11/04/18 09:27 Dose: 40 mg - Objective Vital Signs: Vital Signs Temperature 97.0 F L 11/05/18 06:00 Pulse Rate 90 11/05/18 06:00 Respiratory Rate 24 H 11/05/18 06:00 Blood Pressure 133/69 11/05/18 06:00 O2 Sat by Pulse Oximetry (%) 100 11/04/18 21:00 Constitutional: Yes: Mild Distress, Other HENT: Yes: WNL Cardiovascular: Yes: Pulse Irregular Respiratory: Yes: Diminished, On Venti-Mask Gastrointestinal: Yes: Soft Genitourinary: Yes: Other Musculoskeletal: Yes: Muscle Weakness Extremities: Yes: Other Edema: No Integumentary: Yes: Rash Neurological: Yes: Aphasia, Confusion, Pre-Existing Deficit Labs: CBC, BMP 11/05/18 05:30 11/03/18 05:05 INR, PTT INR 3.00 (0.83-1.09) H 11/03/18 05:30 Problem List - Problems (1) Acute hypoxemic respiratory failure Code(s): J96.01 - ACUTE RESPIRATORY FAILURE WITH HYPOXIA (2) Anemia in chronic illness Code(s): D63.8 - ANEMIA IN OTHER CHRONIC DISEASES CLASSIFIED ELSEWHERE (3) Cellulitis of foot Code(s): L03.119 - CELLULITIS OF UNSPECIFIED PART OF LIMB (4) ESRD (end stage renal disease) Code(s): N18.6 - END STAGE RENAL DISEASE (5) Sepsis Code(s): A41.9 - SEPSIS, UNSPECIFIED ORGANISM Qualifiers: Sepsis type: sepsis due to unspecified organism Qualified Code(s): A41.9 - Sepsis, unspecified organism Assessment/Plan IV DAPTOMYCIN SEPSIS TS WITH ID CONSULT ANDREE LITTLE FOR ESRD SWALLOW EVAL NEEDS DNR DNI WITH POOR OVERALL PROGNOSIS WILL D/W FAMILY FOR GOALS OF CARE
[2018-11-05] MEDS: PANTOPRAZOLE SODIUM 40 MG VIAL IVPUSH SCH (10:26)
[2018-11-05] MEDS: COLLAGENASE CLOSTRIDIUM HIST. 30 GRAMS TUBE TP SCH (11:00)
--- NOTE | 2018-11-05 11:16 | CONSULT ---
Admitting History and Physical - Primary Care Physician PCP: Isabel Kaufman - Admission History of Present Illness: 73YOM [facility] resident,with h/o ESRD on HD, DM, HTN, HLD, prior CVA, COPD, and UTI, who was BIBEMS with fever and vomiting. Pt was hypoxic. required intubation. Extubated over the weekend. Aphasia, Confusion, Pre-Existing Deficit Per transfer summary, pt was on reg consistency diet/thin liquids. This is my first consult with this pt. History Source: Medical Record Limitations to Obtaining History: Clinical Condition - Past Medical History Cardiovascular: Yes: HTN, Hyperlipdemia Pulmonary: Yes: COPD Renal/: Yes: Renal Failure, Hemodialysis Endocrine: Yes: Diabetes Mellitus - Smoking History Smoking history: Never smoked Have you smoked in the past 12 months: No - Alcohol/Substance Use Hx Alcohol Use: No History - Admission Reason For Visit: ANEMIA,ACUTE KINEY DISEASE,RESP FAILURE,INR,VOMITI - Diagnostics X-ray: Report Reviewed CT Scan: Report Reviewed - General Mental Status: Awake and Alert, Able to Follow Commands Attention: Intact, Mild Impairment Ability to Follow Directions: Fair - Hearing Hearing: Normal Speech Evaluation - Communication Primary Language: NAURUAN Communication: Yes: Simple Responses, Aphasia - Speech Production Able to Make Needs Known: Yes: Severely Impaired Intelligibility: Yes: Severely Impaired - Speech Characteristics Voice Loudness: Severely Soft/Quiet, Hypophonia Speech Pattern: Impaired Speech Clarity: < 25% Nasal Resonance: Normal Dysfluency: Yes: Clonic (stutters with repetition of first syllable. From childhood or aquired from CVA?) Voice, Other Observations: Yes: Inadequate Breath Support - Language/Auditory Comprehension Observation: Able to respond to yes/no queries: Yes, Yes/No Confusion: Yes ( possibly. Needs further assessment), Comprehends Conversational Speech: Yes ( yes.) - Language/Verbal Expression Able to Respond to Simple Queries: Yes: Severely Impaired (Said name. Hospital) Able to Communicate Wants and Needs: Yes: Severely Impaired Functional Communication Status: Yes: Severely Impaired - Swallow Evaluation/Bedside Assessment Current Nutritional Intake: NPO Dentition: Yes: Edentulous (a couple of teeth) Facial Symmetry at Rest: Symmetrical (difficult to assess. Left upper lip swollen from intubation) Lingual Movement: Deviates Left (difficult to assess. Protrudes.) Bolus Size: Small Labial Seal: WFL Oral Prep Time: Increased A-P Transit: Impaired Timing of Swallow: Delayed Coughing/Throat Clear: Yes (thin) Recommendations - Speech Evaluation, Impression/Plan Impression: Stutters, simple verbal responses. Hypophonia, Poor intelligibilty. Swallow very delayed in onset, requiring multiple verbal cues to swallow. Swallow fair elevation. What is pt's baseline? Hypophonia acute sec to intubation vs baseline. Stuuter sec to previous CVA vs childhood/ - Disposition Discharge to: Nursing Home Facility - Dysphagia Impressions/Plan Swallowing Skills: Impaired Dysphagia Impressions: Moderate Impairment, Risk of Aspiration, Ongoing Evaluation *Silent aspiration: cannot be R/O at bedside Recommendations: Modified Barium Swallow - Recommendations Medication Administration: Crushed with applesauce
--- NOTE | 2018-11-05 12:19 | PN ---
Teaching Attending Note Name of Resident: Alessandro Bennett ATTENDING PHYSICIAN STATEMENT I saw and evaluated the patient. I reviewed the resident's note and discussed the case with the resident. I agree with the resident's findings and plan as documented. SUBJECTIVE: Patient seen and examined in the ICU. Remains extubated. Lethargic but easily arousbale. Able to follow simple commands and move all extremities. Requiring VM O2. OBJECTIVE: Intake & Output 11/02/18 11/03/18 11/04/18 11/05/18 23:59 23:59 23:59 23:59 Intake Total 534 170 170 50 Balance 534 170 170 50 Weight 209 lb 12.8 oz 209 lb 12.8 oz 209 lb 12.8 oz 212 lb Last Vital Signs Temp Pulse Resp BP Pulse Ox 99.2 F 88 26 H 107/61 100 11/05/18 10:00 11/05/18 12:00 11/05/18 12:00 11/05/18 12:00 11/05/18 09:00 Active Medications Collagenase (Santyl -) 1 applic TP DAILY CHANTELL; Protocol Last Admin: 11/04/18 09:27 Dose: 1 applic Norepinephrine Bitartrate 8, (000 mcg/ Sodium Chloride) 500 mls @ 18.75 mls/hr IV TITR CHANTELL; Protocol Last Admin: 11/04/18 17:23 Dose: Not Given Piperacillin Sod/Tazobactam (Sod 2.25 gm/ Dextrose) 50 mls @ 100 mls/hr IVPB Q8H-IV CHANTELL; Protocol Last Admin: 11/05/18 10:26 Dose: 100 mls/hr Sodium Chloride (Normal Saline -) 250 mls @ 3,000 mls/hr IV PRN PRN PRN Reason: Hypotension during Dialysis Stop: 10/31/18 09:32 Daptomycin 760 mg/ Sodium (Chloride) 100 mls @ 200 mls/hr IVPB Q48H CHANTELL; Protocol Last Admin: 11/04/18 11:32 Dose: 200 mls/hr Sodium Chloride (Normal Saline -) 250 mls @ 3,000 mls/hr IV PRN PRN PRN Reason: Hypotension during Dialysis Stop: 11/04/18 09:51 Pantoprazole Sodium (Protonix Iv) 40 mg IVPUSH DAILY CHANTELL Last Admin: 11/05/18 10:26 Dose: 40 mg Gen: Extubated, lethargic but easily arousable, able to follow simple commands Heart: S1S2 Lung: Bilateral scattered rhonchi Abd: soft, nontender Ext: no edema Laboratory Results - last 24 hr 11/05/18 11/05/18 11/05/18 05:30 05:30 11:56 WBC 10.2 H RBC 2.84 L Hgb 8.5 L Hct 26.0 L MCV 91.4 MCH 29.8 MCHC 32.6 RDW 16.4 H Plt Count 216 MPV 8.7 PTT (Actin FS) 36.1 POC Glucometer 85 ASSESSMENT AND PLAN: Acute Hypoxic Respiratory Failure Pneumonia Suspected Diabetic Foot Ulcer Infection No evidence of Permacath Infection MRSA Bacteremia Septic Shock ESRD on HD Lactic Acidosis +Troponins likely Demand Ischemia Supratherapeutic INR Atrial Fibrillation h/o CVA Severe Mitral Regurgitation HTN DM COPD - continue antibiotics per ID - Will likely need ALEJO as he has been persistently bacteremic - local wound care - monitor INR with goal 2-3 - rate control - HD per renal - VM O2 as needed to maintain SpO2 >90% - Speech and swallow evaluation - Aspiration precautions - DVT/GI prophylaxis - 4W / 4S monitoring Dr Palmer Critical care time spent in reviewing chart, evaluating patient and formulating plan 35 min
--- NOTE | 2018-11-05 12:35 | PN ---
Progress Note, Physician Chief Complaint: REMAINS EXTUBATED BREATHING NON LABORED ON VENTIMASK ANSWERS SIMPLE YES/NO QUESTIONS DENIES PAIN TEMPS DOWN REPEAT BC (11/03) +GPCCL CXR L LUNG INFILTRATE ATELECTASIS R LUNG FIELD - Current Medication List Current Medications: Active Medications Collagenase (Santyl -) 1 applic TP DAILY CHANTELL; Protocol Last Admin: 11/04/18 09:27 Dose: 1 applic Norepinephrine Bitartrate 8, (000 mcg/ Sodium Chloride) 500 mls @ 18.75 mls/hr IV TITR CHANTELL; Protocol Last Admin: 11/04/18 17:23 Dose: Not Given Piperacillin Sod/Tazobactam (Sod 2.25 gm/ Dextrose) 50 mls @ 100 mls/hr IVPB Q8H-IV CHANTELL; Protocol Last Admin: 11/05/18 10:26 Dose: 100 mls/hr Sodium Chloride (Normal Saline -) 250 mls @ 3,000 mls/hr IV PRN PRN PRN Reason: Hypotension during Dialysis Stop: 10/31/18 09:32 Daptomycin 760 mg/ Sodium (Chloride) 100 mls @ 200 mls/hr IVPB Q48H CHANTELL; Protocol Last Admin: 11/04/18 11:32 Dose: 200 mls/hr Sodium Chloride (Normal Saline -) 250 mls @ 3,000 mls/hr IV PRN PRN PRN Reason: Hypotension during Dialysis Stop: 11/04/18 09:51 Pantoprazole Sodium (Protonix Iv) 40 mg IVPUSH DAILY CHANTELL Last Admin: 11/05/18 10:26 Dose: 40 mg - Objective Vital Signs: Vital Signs Temperature 99.2 F 11/05/18 10:00 Pulse Rate 88 11/05/18 12:00 Respiratory Rate 26 H 11/05/18 12:00 Blood Pressure 107/61 11/05/18 12:00 O2 Sat by Pulse Oximetry (%) 100 11/05/18 09:00 Constitutional: Yes: No Distress Eyes: Yes: Conjunctiva Clear Cardiovascular: Yes: Regular Rate and Rhythm, S1, S2 Respiratory: Yes: Rhonchi Gastrointestinal: Yes: Normal Bowel Sounds, Soft. No: Tenderness Extremities: Yes: Other (+ R FOOT ULCERS) Edema: Yes Labs: CBC, BMP 11/05/18 05:30 11/03/18 05:05 INR, PTT INR 3.00 (0.83-1.09) H 11/03/18 05:30 Assessment/Plan SEPSIS/ SEPTIC SHOCK OFF PRESSORS STAPH BACTEREMIA MRSA ? FOOT SOURCE ? CATHETER CATHETER REMOVED RESP FAILURE S/P EXTUBATION ACUTE EXACERBATION COPD ? L PNEUMONIA COAGULOPATHY NON HEALING FOOT ULCERS REPEAT BC REMAIN POSITIVE CONTINUE DAPTOMYCIN 8MG/KG CONTINUE ZOSYN WILL NEED ALEJO IN LIGHT OF PERSISTANT BACTEREMIA
--- NOTE | 2018-11-05 12:50 | PN ---
Progress Note, Physician History of Present Illness: Pt seen and examined at bedside. He is now extubated. He appears confused. - Current Medication List Current Medications: Active Medications Albumin Human (Albumin Human 25%) 12.5 gm IVPB Q30M CHANTELL Collagenase (Santyl -) 1 applic TP DAILY CHANTELL; Protocol Last Admin: 11/04/18 09:27 Dose: 1 applic Epoetin Jose (Epogen -) 10,000 unit IVPUSH ONCE ONE Stop: 11/05/18 12:45 Norepinephrine Bitartrate 8, (000 mcg/ Sodium Chloride) 500 mls @ 18.75 mls/hr IV TITR CHANTELL; Protocol Last Admin: 11/04/18 17:23 Dose: Not Given Piperacillin Sod/Tazobactam (Sod 2.25 gm/ Dextrose) 50 mls @ 100 mls/hr IVPB Q8H-IV CHANTELL; Protocol Last Admin: 11/05/18 10:26 Dose: 100 mls/hr Sodium Chloride (Normal Saline -) 250 mls @ 3,000 mls/hr IV PRN PRN PRN Reason: Hypotension during Dialysis Stop: 10/31/18 09:32 Daptomycin 760 mg/ Sodium (Chloride) 100 mls @ 200 mls/hr IVPB Q48H CHANTELL; Protocol Last Admin: 11/04/18 11:32 Dose: 200 mls/hr Sodium Chloride (Normal Saline -) 250 mls @ 3,000 mls/hr IV PRN PRN PRN Reason: Hypotension during Dialysis Stop: 11/04/18 09:51 Sodium Chloride (Normal Saline -) 250 mls @ 3,000 mls/hr IV PRN PRN PRN Reason: Hypotension during Dialysis Stop: 11/06/18 12:45 Pantoprazole Sodium (Protonix Iv) 40 mg IVPUSH DAILY CHANTELL Last Admin: 11/05/18 10:26 Dose: 40 mg - Objective Vital Signs: Vital Signs Temperature 99.2 F 11/05/18 10:00 Pulse Rate 88 11/05/18 12:00 Respiratory Rate 26 H 11/05/18 12:00 Blood Pressure 107/61 11/05/18 12:00 O2 Sat by Pulse Oximetry (%) 100 11/05/18 09:00 Constitutional: Yes: Calm Eyes: Yes: Conjunctiva Clear Cardiovascular: Yes: S1, S2 Respiratory: Yes: On Venti-Mask, Tachypnea Gastrointestinal: Yes: Soft Genitourinary: Yes: Incontinence Musculoskeletal: Yes: Muscle Weakness Edema: Yes Edema: LLE: 1+, RLE: 1+ Wound/Incision: Yes: Dressing Dry and Intact Neurological: Yes: Confusion Labs: CBC, BMP 11/05/18 05:30 11/03/18 05:05 INR, PTT INR 3.00 (0.83-1.09) H 11/03/18 05:30 - ....Imaging Chest X-ray: Report Reviewed Problem List - Problems (1) Acute hypoxemic respiratory failure Code(s): J96.01 - ACUTE RESPIRATORY FAILURE WITH HYPOXIA (2) ESRD (end stage renal disease) Code(s): N18.6 - END STAGE RENAL DISEASE (3) Sepsis Code(s): A41.9 - SEPSIS, UNSPECIFIED ORGANISM Qualifiers: Sepsis type: sepsis due to unspecified organism Qualified Code(s): A41.9 - Sepsis, unspecified organism Assessment/Plan Current Medications Generic Name Dose Route Start Last Admin Trade Name Freq PRN Reason Stop Dose Admin Albumin Human 12.5 gm 11/05/18 12:45 Albumin Human 25% IVPB Q30M CHANTELL Collagenase 1 applic 10/30/18 10:00 11/04/18 09:27 Santyl - TP 1 applic DAILY CHANTELL Administration Protocol Epoetin Jose 10,000 unit 11/05/18 12:44 Epogen - IVPUSH 11/05/18 12:45 ONCE ONE Norepinephrine Bitartrate 8, 500 mls @ 18.75 mls/hr 10/29/18 15:04 11/04/18 17:23 000 mcg/ Sodium Chloride IV Not Given TITR CHANTELL Protocol 5 MCG/MIN Piperacillin Sod/Tazobactam 50 mls @ 100 mls/hr 10/29/18 18:00 11/05/18 10:26 Sod 2.25 gm/ Dextrose IVPB 100 mls/hr Q8H-IV CHANTELL Administration Protocol Sodium Chloride 250 mls @ 3,000 mls/hr 10/30/18 09:32 Normal Saline - IV 10/31/18 09:32 PRN PRN Hypotension during Dialysis Daptomycin 760 mg/ Sodium 100 mls @ 200 mls/hr 11/02/18 10:15 11/04/18 11:32 Chloride IVPB 200 mls/hr Q48H CHANTELL Administration Protocol Sodium Chloride 250 mls @ 3,000 mls/hr 11/03/18 09:50 Normal Saline - IV 11/04/18 09:51 PRN PRN Hypotension during Dialysis Sodium Chloride 250 mls @ 3,000 mls/hr 11/05/18 12:44 Normal Saline - IV 11/06/18 12:45 PRN PRN Hypotension during Dialysis Pantoprazole Sodium 40 mg 10/30/18 10:00 11/05/18 10:26 Protonix Iv IVPUSH 40 mg DAILY CHANTELL Administration Microbiology 11/01/18 05:45 Blood - Peripheral Venous Blood Culture - Final S Aureus 11/01/18 05:30 Blood - Peripheral Venous Blood Culture - Final S Aureus 10/31/18 12:43 Catheter Site Gram Stain - Final 10/31/18 12:43 Catheter Site Wound Culture - Final S Aureus 10/30/18 15:00 Sputum - Endotrachea Suction/Ventilator Gram Stain - Final 10/30/18 15:00 Sputum - Endotrachea Suction/Ventilator Sputum Culture - Final Escherichia Coli Esbl Progressive Care Unit Registered Nurse S Aureus 10/30/18 13:00 Blood - Pre-Dialysis Blood Culture - Final S Aureus 10/30/18 10:40 Blood - Peripheral Venous Blood Culture - Final S Aureus 10/30/18 10:25 Blood - Peripheral Venous Blood Culture - Final S Aureus 10/29/18 08:00 Urine - Urine Clean Catch Urine Culture - Final NO GROWTH OBTAINED 10/29/18 06:50 Blood - Peripheral Venous Blood Culture - Final S Aureus 10/29/18 06:50 Blood - Peripheral Venous Blood Culture - Final S Aureus 11/03/18 05:05 Blood - Peripheral Venous Blood Culture - Preliminary Staphylococcus Latex Coag Pos 11/03/18 05:05 Blood - Peripheral Venous Blood Culture - Preliminary Staphylococcus Latex Coag Pos Impression 1. ESRD 2. acute rep failure 3. DM 4. hyperlipidemia 5. HTN 6. gout 7. proteinuria 8. hypotension/shock 9. sepsis 10. bacteremia Plan - cont abx - HD today - remove shiley after HD - cont abx per ID - follow repeat cultures - check cxr in am - monitor pulse ox - will UF volume on HD today - renal diet if he starts to eat, pt is getting swallow eval today
[2018-11-05] MEDS ORDERED: EPOETIN ALFA 2,000 UNIT/1 ML VIAL IVPUSH ONE (14:00)
[2018-11-05] MEDS ORDERED: EPOETIN ALFA 10,000 UNIT/1 ML VIAL IVPUSH ONE (14:00)
[2018-11-05] MEDS ORDERED: SODIUM CHLORIDE 250 ML IV PRN (14:05)
[2018-11-05 14:37] LABS: INR 1.31 (0.83-1.09); PROTHROMBIN TIME (PATIENT) 15.5 SEC (9.7-13.0)
[2018-11-05 14:39] LABS: ACTIVATED PTT 33.3 SECONDS (25.2-36.5)
[2018-11-05] MEDS: ALBUMIN HUMAN 25% 12.5 GM/50 ML VIAL IVPB SCH ×3 (14:45→18:14)
--- NOTE | 2018-11-05 14:47 | PN ---
Physical Exam: SUBJECTIVE: Patient seen and examined Patient was examined by me. Patient was alert and responsive when questions asked. Continues to be on VM. Patient will have repeat BCx and repeat TTE. OBJECTIVE: Vital Signs Period Temp Pulse Resp BP Sys/Zamorano Pulse Ox Last 24 Hr 97.0 F-99.4 F 86-97 18-26 107-142/55-72 100-100 GENERAL: The patient is awake, alert HEAD: Normal with no signs of trauma. EYES: PERRL, extraocular movements intact, sclera anicteric, conjunctiva clear. No ptosis. NECK: Trachea midline, full range of motion, supple. LUNGS: Breath sounds equal, rhonchi bilaterally. On VM HEART: irregular rate and rhythm, S1, S2 without murmur, rub or gallop. ABDOMEN: Soft, nontender, nondistended, normoactive bowel sounds, no guarding, no rebound, no hepatosplenomegaly, no masses. EXTREMITIES: 2+ pulses, warm, well-perfused, no edema. wounds present NEUROLOGICAL: Cranial nerves II through XII grossly intact. Normal speech, gait not observed. PSYCH: Normal mood, normal affect. SKIN: Warm, dry, normal turgor, no rashes or lesions noted Laboratory Results - last 24 hr 11/05/18 11/05/18 11/05/18 05:30 05:30 11:56 WBC 10.2 H RBC 2.84 L Hgb 8.5 L Hct 26.0 L MCV 91.4 MCH 29.8 MCHC 32.6 RDW 16.4 H Plt Count 216 MPV 8.7 PT with INR INR PTT (Actin FS) 36.1 POC Glucometer 85 11/05/18 13:30 WBC RBC Hgb Hct MCV MCH MCHC RDW Plt Count MPV PT with INR 15.50 H INR 1.31 H PTT (Actin FS) 33.3 POC Glucometer Active Medications Generic Name Dose Route Start Last Admin Trade Name Freq PRN Reason Stop Dose Admin Albumin Human 12.5 gm 11/05/18 14:00 Albumin Human 25% IVPB 11/05/18 15:31 Q30M CHANTELL Collagenase 1 applic 10/30/18 10:00 11/04/18 09:27 Santyl - TP 1 applic DAILY HCANTELL Administration Protocol Norepinephrine Bitartrate 8, 500 mls @ 18.75 mls/hr 10/29/18 15:04 11/04/18 17:23 000 mcg/ Sodium Chloride IV Not Given TITR CHANTELL Protocol 5 MCG/MIN Piperacillin Sod/Tazobactam 50 mls @ 100 mls/hr 10/29/18 18:00 11/05/18 10:26 Sod 2.25 gm/ Dextrose IVPB 100 mls/hr Q8H-IV CHANTELL Administration Protocol Daptomycin 760 mg/ Sodium 100 mls @ 200 mls/hr 11/02/18 10:15 11/04/18 11:32 Chloride IVPB 200 mls/hr Q48H CHANTELL Administration Protocol Sodium Chloride 250 mls @ 3,000 mls/hr 11/05/18 14:05 Normal Saline - IV 11/06/18 14:04 PRN PRN Hypotension during Dialysis Ceftaroline Fosamil 200 mg/ 100 mls @ 200 mls/hr 11/05/18 13:30 Dextrose IVPB BID CHANTELL Protocol Pantoprazole Sodium 40 mg 10/30/18 10:00 11/05/18 10:26 Protonix Iv IVPUSH 40 mg DAILY CHANTELL Administration ASSESSMENT 73yo M with PMH of ESRD (HD on MWF), Afib on coumadin, DM, HTN, HLD, COPD, prior CVA coming from [facility] admitted for sepsis likely secondary to pneumonia. HOD #8. PLAN CV History of Afib History of HTN, HLD -off pressors -Keep MAP>65 -Vitamin K and FFP given on 10/30/18 -Will give home dose of warfarin 5mg today given that the INR is 1.31. Goal is 2 -3 -ECHO on 10/31 shows moderate tricuspid and mitral regurg and no vegetations (no prior ECHO's available). Ordered a repeat TTE to assess if there is vegetations on the valves due to persistence of blood cultures despite daptomycin. NEURO Received ativan on 11/01 Otherwise off sedation PULM Acute respiratory distress, likely secondary to pneumonia History of COPD -Castle-culture, blood culture with gm+ bacteremia -VM SpO2>90% GI Abdominal pain -CTA abdomen pelvis with "retention of stool", but no acute pathology -Monitor for changes RENAL History of ESRD on dialysis MWF -Renal following -HD per renal -CXR in AM SKIN L. foot wound -podiatry following -continue antibiotics ID Septic shock, wound infection of L. foot vs. aspiration pneumonia -ID following -castle-culture, blood culture with gm+ bacteremia -ALEJO indicated if persistently bacteremic -Permacath removed on 10/31, culture of catheter tip with MRSA -Zosyn and Daptomycin (stopped Vancomycin) FEN Follow electrolytes, replete as needed NG tube placed today - failed swallow evaluation. Will start on Nepro. PPX VTE: SCD's and warfarin GI: 40 Protonix Disposition: Monitor in the ICU Visit type - Emergency Visit Emergency Visit: Yes ED Registration Date: 10/29/18 Care time: The patient presented to the Emergency Department on the above date and was hospitalized for further evaluation of their emergent condition. - New Patient This patient is new to me today: Yes Date on this admission: 11/05/18 - Critical Care Critical Care patient: Yes Total Critical Care Time (in minutes): 31 Critical Care Statement: The care of this patient involved high complexity decision making to prevent further life threatening deterioration of the patient 's condition and/or to evaluate & treat vital organ system(s) failure or risk of failure. - Discharge Referral Referred to [facility] Med [facility].: No
--- NOTE | 2018-11-05 15:52 | CON.CARD ---
Consult Consult Specialty:: Cardiology Reason for Consultation:: Presistent Bacteremia-consult for ALEJO - History of Present Illness History of Present Illness: 73 M NHR with ESRD, questionable Afib history. Has severe PVD. was admitted with septic shock and required intubation and pressor support. He is being treated for PNA but there is persistent Blood culture positive for MRSA on repeated blood cultures with possible catheter related infection. He has improved clinically and is now off pressors and is extubated although remains on high concentration of O2. He is alert but is in mild respiratory distress and does not answer questions. An echocardiogram doen 10/31 showed normal LV and RV function. There is mild TV and MV thickening but no vegetations were seen. There is moderate to severe MR and moderate TR. 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 Medical History Cardio/Vascular: Yes: HTN, Hyperlipdemia Pulmonary: Yes: COPD Renal/: Yes: Renal Failure, Hemodialysis Endocrine: Yes: Diabetes Mellitus - Alcohol/Substance Use Hx Alcohol Use: No - Smoking History Smoking history: Never smoked Have you smoked in the past 12 months: No - Social History Usual Living Arrangement: [facility] Home Medications - Allergies Allergies/Adverse Reactions: Allergies Allergy/AdvReac Type Severity Reaction Status Date / Time watermelon Allergy Unknown Verified 10/29/18 06:33 melon Allergy Verified 10/29/18 06:33 No Known Drug Allergies Allergy Verified 10/29/18 06:34 - Home Medications Home Medications: Ambulatory Orders Albuterol 2.5/Ipratropium 0.5 [Duoneb -] 1 amp NEB Q6H PRN #0 amp 07/12/17 Allopurinol [Zyloprim -] 100 mg PO DAILY tablet 07/12/17 Atorvastatin Ca [Lipitor] 20 mg PO HS tablet 07/12/17 Clopidogrel Bisulfate [Plavix -] 75 mg PO DAILY tablet 07/12/17 Collagenase Clostridium Hist. [Santyl -] 250 unit TP DAILY 08/31/18 Lisinopril 10 mg PO DAILY 08/31/18 Collagenase Clostridium Hist. [Santyl -] 1 applic TP DAILY tube 09/06/18 Albuterol Sulfate [Proair Hfa] 2 puff IH Q6H PRN 10/29/18 Escitalopram Oxalate [Lexapro -] 10 mg PO DAILY 10/29/18 Folic Acid/Vit B Complex and C [Dialyvite Tablet] 1 each PO DAILY 10/29/18 Ibuprofen [Advil -] 400 mg PO DAILY 10/29/18 Insulin Lispro [Humalog] 0 unit SQ ACHS 10/29/18 Midodrine HCl 10 mg PO MOWEFR 10/29/18 Sevelamer Carbonate [Renvela] 1,600 mg PO TID 10/29/18 Tamsulosin HCl [Flomax] 0.4 mg PO HS 10/29/18 Warfarin Sodium [Coumadin] 5.5 mg PO HS 10/29/18 Zinc Oxide 20% Topical Oint 454 gm NR BID 10/29/18 Review of Systems Unable to obtain ROS, reason: Does not answere question Vital Signs: Vital Signs Temperature 99.8 F H 11/05/18 14:10 Pulse Rate 97 H 11/05/18 14:45 Respiratory Rate 22 H 11/05/18 14:45 Blood Pressure 99/55 L 11/05/18 14:45 O2 Sat by Pulse Oximetry (%) 100 11/05/18 09:00 Constitutional: Yes: Mild Distress Eyes: Yes: Conjunctiva Clear, EOM Intact HENT: Yes: Atraumatic, Normocephalic Neck: Yes: Supple, Trachea Midline Respiratory: Yes: Regular, Accessory Muscle Use, Diminished, On Venti-Mask Gastrointestinal: Yes: Normal Bowel Sounds, Soft Cardiovascular: Yes: Regular Rate and Rhythm JVD: No Carotid Bruit: No Heart Sounds: Yes: S1, S2. No: S3, S4 Murmur: Yes: Systolic Murmur Edema: No - Other Data Labs, Other Data: CBC, BMP 11/05/18 05:30 11/03/18 05:05 INR, PTT INR 1.31 (0.83-1.09) H 11/05/18 13:30 Problem List - Problems (1) Acute hypoxemic respiratory failure Code(s): J96.01 - ACUTE RESPIRATORY FAILURE WITH HYPOXIA (2) Sepsis Code(s): A41.9 - SEPSIS, UNSPECIFIED ORGANISM Qualifiers: Sepsis type: sepsis due to unspecified organism Qualified Code(s): A41.9 - Sepsis, unspecified organism Assessment/Plan 73 M with multiple comorbidities as described. PVD, DM, ESRD. Admitted with severe sepsis requiring intubation and pressor support. Multiple blood cultures positive for MRSA despite ABX with suspected sources: Foot vs catheter related. Echocardiogram shows significant MR and TR and we were asked to consult for a ALEJO. ALEJO is reasonable given persistent bacteremia however, the patient has significant respiratory compromise and lethargy. He is not a candidate for ALEJO at this time given lethargy, hypoxia and respiratory problems. It may be appropriate to continue treating empirically for an intravascular infection. He is not a surgical candidate should a large vegetation be found. Repeat TTE to look for vegetations.
[2018-11-05] MEDS: CEFTAROLINE FOSAMIL ACETATE 200 MG in DEXTROSE 5%-WATER - 100 ML IVPB SCH ×2 (18:14→21:43)
[2018-11-05] MEDS: NOREPINEPHRINE BITARTRATE 8,000 MCG in SODIUM CHLORIDE 492 ML IV SCH (18:32)
[2018-11-05] MEDS: WARFARIN NA 5 MG TABLET (UD) PO SCH (21:42)
[2018-11-06 06:31] LABS: HEMOGLOBIN 8.3 GM/dL (11.7-16.9); MCH 30.5 pg (25.7-33.7); MCHC 33.1 g/dl (32.0-35.9); MEAN CELL VOLUME 92.1 fl (80-96); MEAN PLT VOLUME 8.3 fl (7.5-11.1); PLATELET COUNT 211 K/MM3 (134-434); RBC 2.71 M/mm3 (4.00-5.60); RDW 16.2 % (11.9-15.9); WHITE BLOOD COUNT 8.2 K/mm3 (4.0-10.0)
[2018-11-06 06:52] LABS: INR 1.23 (0.83-1.09); PROTHROMBIN TIME (PATIENT) 14.6 SEC (9.7-13.0)
[2018-11-06 06:55] LABS: ACTIVATED PTT 28.9 SECONDS (25.2-36.5)
[2018-11-06 09:02] LABS: ALBUMIN 2.1 g/dl (3.4-5.0); ALK PHOS 160 U/L (45-117); ANION GAP 7 MMOL/L (8-16); BILIRUBIN,TOTAL 0.5 mg/dL (0.2-1); CALCIUM 8.5 mg/dL (8.5-10.1); CHLORIDE 105 mmol/L (98-107); CO2 33 mmol/L (21-32); CREATININE 3.4 mg/dL (0.55-1.3); GLUCOSE,RANDOM 133 mg/dL (74-106); POTASSIUM 3.3 mmol/L (3.5-5.1); SGPT/ALT 11 U/L (13-61); SODIUM 144 mmol/L (136-145); TOT PROT 6.8 g/dl (6.4-8.2)
--- NOTE | 2018-11-06 09:08 | PN ---
Progress Note, Physician Chief Complaint: IN BED, AROUSABLE EVENTS AND NOTES REVIEWED REMAINS EXTUBATED ON NC - Current Medication List Current Medications: Active Medications Collagenase (Santyl -) 1 applic TP DAILY [facility]; Protocol Last Admin: 11/05/18 11:00 Dose: 1 applic Daptomycin 760 mg/ Sodium (Chloride) 100 mls @ 200 mls/hr IVPB Q48H [facility]; Protocol Last Admin: 11/04/18 11:32 Dose: 200 mls/hr Sodium Chloride (Normal Saline -) 250 mls @ 3,000 mls/hr IV PRN PRN PRN Reason: Hypotension during Dialysis Stop: 11/06/18 14:04 Ceftaroline Fosamil 200 mg/ (Dextrose) 100 mls @ 200 mls/hr IVPB BID [facility]; Protocol Last Admin: 11/05/18 21:43 Dose: Not Given Pantoprazole Sodium (Protonix Iv) 40 mg IVPUSH DAILY [facility] Last Admin: 11/05/18 10:26 Dose: 40 mg Warfarin Sodium (Coumadin -) 5 mg PO DAILY@1800 CHANTELL Last Admin: 11/05/18 21:42 Dose: 5 mg - Objective Vital Signs: Vital Signs Temperature 99 F 11/06/18 06:00 Pulse Rate 85 11/06/18 06:00 Respiratory Rate 23 H 11/06/18 06:00 Blood Pressure 129/70 11/06/18 06:00 O2 Sat by Pulse Oximetry (%) 100 11/05/18 20:01 Constitutional: Yes: Mild Distress, Other Respiratory: Yes: On Nasal O2, Rhonchi Gastrointestinal: Yes: Soft Genitourinary: Yes: Other Musculoskeletal: Yes: Muscle Weakness Edema: No Neurological: Yes: Confusion Labs: CBC, BMP 11/06/18 05:30 11/06/18 05:30 INR, PTT INR 1.23 (0.83-1.09) H 11/06/18 05:30 Problem List - Problems (1) Acute hypoxemic respiratory failure Code(s): J96.01 - ACUTE RESPIRATORY FAILURE WITH HYPOXIA (2) Anemia in chronic illness Code(s): D63.8 - ANEMIA IN OTHER CHRONIC DISEASES CLASSIFIED ELSEWHERE (3) Cellulitis of foot Code(s): L03.119 - CELLULITIS OF UNSPECIFIED PART OF LIMB (4) ESRD (end stage renal disease) Code(s): N18.6 - END STAGE RENAL DISEASE (5) Sepsis Code(s): A41.9 - SEPSIS, UNSPECIFIED ORGANISM Qualifiers: Sepsis type: sepsis due to unspecified organism Qualified Code(s): A41.9 - Sepsis, unspecified organism (6) Toxic metabolic encephalopathy Code(s): G92 - TOXIC ENCEPHALOPATHY Assessment/Plan IV DAPTOMYCIN SEPSIS TS WITH ID CONSULT ANDREE LITTLE FOR ESRD SWALLOW EVAL NEEDS DNR DNI WITH POOR OVERALL PROGNOSIS WILL D/W FAMILY FOR GOALS OF CARE
[2018-11-06] MEDS ORDERED: PT OWN MED DRAWER 7, Y5N ONE (09:33)
[2018-11-06] MEDS: PANTOPRAZOLE SODIUM 40 MG VIAL IVPUSH SCH (10:14)
[2018-11-06] MEDS: CEFTAROLINE FOSAMIL ACETATE 200 MG in DEXTROSE 5%-WATER - 100 ML IVPB SCH ×2 (10:14→21:56)
--- NOTE | 2018-11-06 10:34 | PN ---
Progress Note, BORDERER - Note Progress Note: Selected Entries 11/05/18 11/05/18 11/05/18 06:00 10:00 14:00 Supper Temperature 97.0 F L 99.2 F 99.4 F 11/05/18 11/05/18 11/05/18 14:10 18:00 19:56 Supper NPO Temperature 99.8 F H 98 F 11/05/18 11/06/18 11/06/18 22:00 02:13 06:00 Supper Temperature 99.2 F 98.6 F 99 F Laboratory Tests 11/04/18 11/06/18 05:30 05:30 WBC 11.2 H 8.2 CXR noted. MBS completed yesterday with poor function of swallow. NGT placed.VM Lethargic. Continue NGT feedings as tolerated. As pt improves, to reassess for PO trials.
--- NOTE | 2018-11-06 10:53 | PN ---
Progress Note, Physician Chief Complaint: BREATHING NON LABORED DENIES PAIN LOW GRADE TEMP NOTED REPEAT BC (11/05) +GPCCL CXR L LUNG INFILTRATE ATELECTASIS R LUNG FIELD - Current Medication List Current Medications: Active Medications Collagenase (Santyl -) 1 applic TP DAILY [facility]; Protocol Last Admin: 11/05/18 11:00 Dose: 1 applic Daptomycin 760 mg/ Sodium (Chloride) 100 mls @ 200 mls/hr IVPB Q48H [facility]; Protocol Last Admin: 11/04/18 11:32 Dose: 200 mls/hr Sodium Chloride (Normal Saline -) 250 mls @ 3,000 mls/hr IV PRN PRN PRN Reason: Hypotension during Dialysis Stop: 11/06/18 14:04 Ceftaroline Fosamil 200 mg/ (Dextrose) 100 mls @ 200 mls/hr IVPB BID [facility]; Protocol Last Admin: 11/06/18 10:14 Dose: 200 mls/hr Pantoprazole Sodium (Protonix Iv) 40 mg IVPUSH DAILY [facility] Last Admin: 11/06/18 10:14 Dose: 40 mg Warfarin Sodium (Coumadin -) 5 mg PO DAILY@1800 CHANTELL Last Admin: 11/05/18 21:42 Dose: 5 mg - Objective Vital Signs: Vital Signs Temperature 99.2 F 11/06/18 10:00 Pulse Rate 88 11/06/18 10:00 Respiratory Rate 20 11/06/18 10:00 Blood Pressure 117/64 11/06/18 10:00 O2 Sat by Pulse Oximetry (%) 100 11/05/18 20:01 Constitutional: Yes: No Distress Eyes: Yes: Conjunctiva Clear Cardiovascular: Yes: Regular Rate and Rhythm, S1, S2 Respiratory: Yes: CTA Bilaterally Gastrointestinal: Yes: Normal Bowel Sounds, Soft. No: Tenderness Edema: Yes Labs: CBC, BMP 11/06/18 05:30 11/06/18 05:30 INR, PTT INR 1.23 (0.83-1.09) H 11/06/18 05:30 Assessment/Plan SEPSIS/ SEPTIC SHOCK OFF PRESSORS STAPH BACTEREMIA MRSA ? FOOT SOURCE ? CATHETER CATHETER REMOVED RESP FAILURE S/P EXTUBATION ACUTE EXACERBATION COPD ? L PNEUMONIA COAGULOPATHY NON HEALING FOOT ULCERS REPEAT BC REMAIN POSITIVE CONTINUE DAPTOMYCIN 8MG/KG + CEFTAROLINE NOT A CANDIDATE FOR ALEJO PER CARDIOLOGY
--- NOTE | 2018-11-06 11:08 | PN ---
Progress Note, Physician History of Present Illness: seen and examined today in nad. lethargic but opens eyes and attempts to answer questions. able to answer yes and no questions - Current Medication List Current Medications: Active Medications Collagenase (Santyl -) 1 applic TP DAILY [facility]; Protocol Last Admin: 11/05/18 11:00 Dose: 1 applic Daptomycin 760 mg/ Sodium (Chloride) 100 mls @ 200 mls/hr IVPB Q48H [facility]; Protocol Last Admin: 11/04/18 11:32 Dose: 200 mls/hr Sodium Chloride (Normal Saline -) 250 mls @ 3,000 mls/hr IV PRN PRN PRN Reason: Hypotension during Dialysis Stop: 11/06/18 14:04 Ceftaroline Fosamil 200 mg/ (Dextrose) 100 mls @ 200 mls/hr IVPB BID [facility]; Protocol Last Admin: 11/06/18 10:14 Dose: 200 mls/hr Pantoprazole Sodium (Protonix Iv) 40 mg IVPUSH DAILY [facility] Last Admin: 11/06/18 10:14 Dose: 40 mg Warfarin Sodium (Coumadin -) 5 mg PO DAILY@1800 CHANTELL Last Admin: 11/05/18 21:42 Dose: 5 mg - Objective Vital Signs: Vital Signs Temperature 99.2 F 11/06/18 10:00 Pulse Rate 88 11/06/18 10:00 Respiratory Rate 20 11/06/18 10:00 Blood Pressure 117/64 11/06/18 10:00 O2 Sat by Pulse Oximetry (%) 100 11/05/18 20:01 Constitutional: Yes: No Distress, Calm Eyes: Yes: Conjunctiva Clear, EOM Intact HENT: Yes: Atraumatic, Normocephalic Neck: Yes: Supple, Trachea Midline Cardiovascular: Yes: Regular Rate and Rhythm, Murmur, S1, S2. No: Bradycardia, Tachycardia, Pulse Irregular, Bruit, JVD, Gallop, Rub, S3, S4, Varicosities Respiratory: Yes: Regular, Diminished, On Venti-Mask. No: Rales, Rhonchi, Wheezes Gastrointestinal: Yes: Normal Bowel Sounds, Soft Extremities: Yes: WNL Edema: No Peripheral Pulses WNL: Yes Neurological: Yes: Alert, Lethargy, Weakness Labs: CBC, BMP 11/06/18 05:30 11/06/18 05:30 INR, PTT INR 1.23 (0.83-1.09) H 11/06/18 05:30 - ....Imaging Chest X-ray: Report Reviewed, Image Reviewed EKG: Report Reviewed, Image Reviewed Other: Report Reviewed, Image Reviewed (tele-nsr, apcs, no sig arrhythmias) Assessment/Plan 73 M with multiple comorbidities as described. PVD, DM, ESRD. Admitted with severe sepsis requiring intubation and pressor support. Multiple blood cultures positive for MRSA despite ABX with suspected sources: Foot vs catheter related. MRSA sepsis Echocardiogram 10/31/18 was technically difficult but showed mod to sev MR, mod TR , nl LV systolic function ALEJO is reasonable given persistent bacteremia however, the patient has significant respiratory compromise and lethargy. He is not a candidate for ALEJO at this time given lethargy, hypoxia and respiratory problems. Continue treating empirically for an intravascular infection. He is not a surgical candidate at this time should a large vegetation be found. Would repeat TTE now that pt is extubated to re-evaluate for vegetations.
[2018-11-06 11:34] LABS: MAGNESIUM 2.1 mg/dL (1.8-2.4)
[2018-11-06] MEDS: KCL 10 MEQ IVPB 10 MEQ/100 ML INFUS.BAG IVPB SCH ×4 (12:28→15:02)
[2018-11-06 12:55] LABS: BLOOD UREA NITROGEN 22 mg/dL (7-18); SGOT/AST 15 U/L (15-37)
--- NOTE | 2018-11-06 13:00 | PN ---
Physical Exam: SUBJECTIVE: Patient seen and examined Patient was examined by me. Patient is continues to be lethargic but arousable by voice and answers yes and no questions. Continues to have positive cultures despite abx intervention. No pain complaints at this time OBJECTIVE: Vital Signs Period Temp Pulse Resp BP Sys/Zamorano Pulse Ox Last 24 Hr 98 F-99.8 F 58-102 18-26 91-142/55-81 100-100 GENERAL: The patient is awake, alert HEAD: Normal with no signs of trauma. EYES: PERRL, extraocular movements intact, sclera anicteric, conjunctiva clear. No ptosis. NECK: Trachea midline, full range of motion, supple. LUNGS: Breath sounds equal, rhonchi bilaterally. On VM HEART: irregular rate and rhythm, S1, S2 without murmur, rub or gallop. ABDOMEN: Soft, nontender, nondistended, normoactive bowel sounds, no guarding, no rebound, no hepatosplenomegaly, no masses. EXTREMITIES: 2+ pulses, warm, well-perfused, right foot edema. wounds present NEUROLOGICAL: Cranial nerves II through XII grossly intact. Normal speech, gait not observed. PSYCH: Normal mood, normal affect. SKIN: Warm, dry, normal turgor, no rashes or lesions noted Laboratory Results - last 24 hr 11/05/18 11/05/18 11/06/18 13:30 17:03 05:30 WBC 8.2 RBC 2.71 L Hgb 8.3 L Hct 25.0 L MCV 92.1 MCH 30.5 MCHC 33.1 RDW 16.2 H Plt Count 211 MPV 8.3 PT with INR 15.50 H INR 1.31 H PTT (Actin FS) 33.3 Sodium Potassium Chloride Carbon Dioxide Anion Gap BUN Creatinine Creat Clearance w eGFR POC Glucometer 90 Random Glucose Calcium Magnesium Total Bilirubin AST ALT Alkaline Phosphatase Total Protein Albumin 11/06/18 11/06/18 11/06/18 05:30 05:30 11:35 WBC RBC Hgb Hct MCV MCH MCHC RDW Plt Count MPV PT with INR 14.60 H INR 1.23 H PTT (Actin FS) 28.9 Sodium 144 Potassium 3.3 L Chloride 105 Carbon Dioxide 33 H Anion Gap 7 L BUN 22 H Creatinine 3.4 H Creat Clearance w eGFR 17.79 POC Glucometer 149 Random Glucose 133 H Calcium 8.5 Magnesium 2.1 Total Bilirubin 0.5 AST 15 ALT 11 L Alkaline Phosphatase 160 H Total Protein 6.8 Albumin 2.1 L Active Medications Generic Name Dose Route Start Last Admin Trade Name Kassandra PRN Reason Stop Dose Admin Collagenase 1 applic 10/30/18 10:00 11/05/18 11:00 Santyl - TP 1 applic DAILY CHANTELL Administration Protocol Daptomycin 760 mg/ Sodium 100 mls @ 200 mls/hr 11/02/18 10:15 11/04/18 11:32 Chloride IVPB 200 mls/hr Q48H CHANTELL Administration Protocol Sodium Chloride 250 mls @ 3,000 mls/hr 11/05/18 14:05 Normal Saline - IV 11/06/18 14:04 PRN PRN Hypotension during Dialysis Ceftaroline Fosamil 200 mg/ 100 mls @ 200 mls/hr 11/05/18 13:30 11/06/18 10: 14 Dextrose IVPB 200 mls/hr BID CHANTELL Administration Protocol Potassium Chloride 10 meq in 100 mls @ 100 mls/hr 11/06/18 11:30 11/06/18 12: 28 Potassium Chloride 10 Meq Premix Ivpb - IVPB 11/06/18 14:29 100 mls/hr Q60M CHANTELL Administration Pantoprazole Sodium 40 mg 10/30/18 10:00 11/06/18 10:14 Protonix Iv IVPUSH 40 mg DAILY CHANTELL Administration Warfarin Sodium 5 mg 11/05/18 18:00 11/05/18 21:42 Coumadin - PO 5 mg DAILY@1800 CHANTELL Administration ASSESSMENT 73yo M with PMH of ESRD (HD on MWF), Afib on coumadin, DM, HTN, HLD, COPD, prior CVA coming from [facility] admitted for sepsis likely secondary to pneumonia. HOD #9. Will be transferred to the floor 4S/4W . PLAN CV History of Afib History of HTN, HLD -off pressors -INR 1.23 today, will reassess next day. COntinue 5 mg HS warfarin -Keep MAP>65 -Vitamin K and FFP given on 10/30/18 -Gave home -ECHO on 10/31 shows moderate tricuspid and mitral regurg and no vegetations (no prior ECHO's available). Ordered a repeat TTE to assess if there is vegetations on the valves due to persistence of blood cultures despite daptomycin; repeat ECHO shows no vegetations. NEURO Received ativan on 11/01 Otherwise off sedation PULM Acute respiratory distress, likely secondary to pneumonia History of COPD -Castle-culture, blood culture with gm+ bacteremia -VM SpO2>90% GI -Monitor for changes RENAL History of ESRD on dialysis MWF -Renal following -HD per renal SKIN L. foot wound -podiatry following -continue antibiotics ID Septic shock, wound infection of L. foot vs. aspiration pneumonia -ID following -castle-culture, blood culture with gm+ bacteremia -ALEJO indicated if persistently bacteremic; unable to do so as he is a poor candidate -Permacath removed on 10/31, culture of catheter tip with MRSA -Ceftaroline and Daptomycin (stopped Vancomycin) FEN Follow electrolytes, replete as needed NG tube placed today - failed swallow evaluation. Will start on Nepro. PPX VTE: SCD's and warfarin GI: 40 Protonix Disposition: Will be transferred today to floor. Visit type - Emergency Visit Emergency Visit: Yes ED Registration Date: 10/29/18 Care time: The patient presented to the Emergency Department on the above date and was hospitalized for further evaluation of their emergent condition. - New Patient This patient is new to me today: No - Critical Care Critical Care patient: Yes Total Critical Care Time (in minutes): 35 Critical Care Statement: The care of this patient involved high complexity decision making to prevent further life threatening deterioration of the patient 's condition and/or to evaluate & treat vital organ system(s) failure or risk of failure. - Discharge Referral Referred to [facility] No
[2018-11-06] MEDS: SODIUM CHLORIDE IVPB SCH (13:14)
[2018-11-06] MEDS: DAPTOMYCIN IVPB SCH (13:14)
[2018-11-06] MEDS: COLLAGENASE CLOSTRIDIUM HIST. 30 GRAMS TUBE TP SCH (14:01)
--- NOTE | 2018-11-06 14:11 | ECHO ---
Name: SAMANTHA HILL Exam:Adult Echocardiogram Study Date: 11/06/2018 09:30 AM Age: 73 yrs Reason For Study: R/O Endocarditis Only Height: 70 in Weight: 212 lb BSA: 2.1 m2 Procedure A limited two-dimensional transthoracic echocardiogram was performed (2D). Left Ventricle The left ventricular ejection fraction is normal. Interpretation Summary A limited two-dimensional transthoracic echocardiogram was performed (2D). No vegetations seen. This does not rule out endocarditis. The left ventricular ejection fraction is normal. Hitesh Workman 11/06/2018 02:10 PM
--- NOTE | 2018-11-06 14:23 | PN ---
Teaching Attending Note Name of Resident: Alessandro Bennett ATTENDING PHYSICIAN STATEMENT I saw and evaluated the patient. I reviewed the resident's note and discussed the case with the resident. I agree with the resident's findings and plan as documented. SUBJECTIVE: Patient seen and examined in the ICU. Remains extubated. Lethargic but easily arousbale. Able to follow simple commands and move all extremities. Still requiring VM O2. Repeat blood cultures persistently (+) OBJECTIVE: Intake & Output 11/03/18 11/04/18 11/05/18 11/06/18 23:59 23:59 23:59 23:59 Intake Total 170 170 400 540 Balance 170 170 400 540 Weight 209 lb 12.8 oz 209 lb 12.8 oz 212 lb 188 lb 8 oz Last Vital Signs Temp Pulse Resp BP Pulse Ox 98 F 88 20 142/77 100 11/06/18 13:27 11/06/18 13:27 11/06/18 13:27 11/06/18 13:27 11/06/18 09:00 Active Medications Collagenase (Santyl -) 1 applic TP DAILY [facility]; Protocol Last Admin: 11/06/18 14:01 Dose: 1 applic Daptomycin 760 mg/ Sodium (Chloride) 100 mls @ 200 mls/hr IVPB Q48H [facility]; Protocol Last Admin: 11/06/18 13:14 Dose: 200 mls/hr Ceftaroline Fosamil 200 mg/ (Dextrose) 100 mls @ 200 mls/hr IVPB BID [facility]; Protocol Last Admin: 11/06/18 10:14 Dose: 200 mls/hr Potassium Chloride (Potassium Chloride 10 Meq Premix Ivpb -) 10 meq in 100 mls @ 100 mls/hr IVPB Q60M [facility] Stop: 11/06/18 14:29 Last Admin: 11/06/18 13:58 Dose: 100 mls/hr Pantoprazole Sodium (Protonix Iv) 40 mg IVPUSH DAILY [facility] Last Admin: 11/06/18 10:14 Dose: 40 mg Warfarin Sodium (Coumadin -) 5 mg PO DAILY@1800 [facility] Last Admin: 11/05/18 21:42 Dose: 5 mg Gen: Extubated, lethargic but easily arousable, able to follow simple commands Heart: S1S2 Lung: Bilateral scattered rhonchi Abd: soft, nontender, (+) BS Ext: (+) edema Laboratory Results - last 24 hr 11/05/18 11/05/18 11/06/18 13:30 17:03 05:30 WBC 8.2 RBC 2.71 L Hgb 8.3 L Hct 25.0 L MCV 92.1 MCH 30.5 MCHC 33.1 RDW 16.2 H Plt Count 211 MPV 8.3 PT with INR 15.50 H INR 1.31 H PTT (Actin FS) 33.3 Sodium Potassium Chloride Carbon Dioxide Anion Gap BUN Creatinine Creat Clearance w eGFR POC Glucometer 90 Random Glucose Calcium Magnesium Total Bilirubin AST ALT Alkaline Phosphatase Total Protein Albumin 11/06/18 11/06/18 11/06/18 05:30 05:30 11:35 WBC RBC Hgb Hct MCV MCH MCHC RDW Plt Count MPV PT with INR 14.60 H INR 1.23 H PTT (Actin FS) 28.9 Sodium 144 Potassium 3.3 L Chloride 105 Carbon Dioxide 33 H Anion Gap 7 L BUN 22 H Creatinine 3.4 H Creat Clearance w eGFR 17.79 POC Glucometer 149 Random Glucose 133 H Calcium 8.5 Magnesium 2.1 Total Bilirubin 0.5 AST 15 ALT 11 L Alkaline Phosphatase 160 H Total Protein 6.8 Albumin 2.1 L ASSESSMENT AND PLAN: Acute Hypoxic Respiratory Failure Pneumonia Suspected Diabetic Foot Ulcer Infection No evidence of Permacath Infection MRSA Bacteremia Septic Shock ESRD on HD Lactic Acidosis +Troponins likely Demand Ischemia Supratherapeutic INR Atrial Fibrillation h/o CVA Severe Mitral Regurgitation HTN DM COPD - continue antibiotics per ID - Patient is high risk for ALEJO due to tenuous respiratory status, (?) empiric TX - local wound care - AC - rate control - HD per renal - VM O2 as needed to maintain SpO2 >90% - Speech and swallow evaluation - Aspiration precautions - DVT/GI prophylaxis - 4W / 4S monitoring Dr Palmer
--- NOTE | 2018-11-06 14:43 | PN ---
Progress Note, Physician History of Present Illness: Pt seen and examined at bedside. He remains in the ICU. He remains extubated. - Current Medication List Current Medications: Active Medications Collagenase (Santyl -) 1 applic TP DAILY [facility]; Protocol Last Admin: 11/06/18 14:01 Dose: 1 applic Daptomycin 760 mg/ Sodium (Chloride) 100 mls @ 200 mls/hr IVPB Q48H [facility]; Protocol Last Admin: 11/06/18 13:14 Dose: 200 mls/hr Ceftaroline Fosamil 200 mg/ (Dextrose) 100 mls @ 200 mls/hr IVPB BID [facility]; Protocol Last Admin: 11/06/18 10:14 Dose: 200 mls/hr Pantoprazole Sodium (Protonix Iv) 40 mg IVPUSH DAILY [facility] Last Admin: 11/06/18 10:14 Dose: 40 mg Warfarin Sodium (Coumadin -) 5 mg PO DAILY@1800 [facility] Last Admin: 11/05/18 21:42 Dose: 5 mg - Objective Vital Signs: Vital Signs Temperature 98 F 11/06/18 13:27 Pulse Rate 80 11/06/18 14:39 Respiratory Rate 24 H 11/06/18 14:39 Blood Pressure 144/73 11/06/18 14:39 O2 Sat by Pulse Oximetry (%) 100 11/06/18 09:00 Constitutional: Yes: Calm Eyes: Yes: Conjunctiva Clear HENT: Yes: Atraumatic Cardiovascular: Yes: S1, S2 Respiratory: Yes: On Venti-Mask Gastrointestinal: Yes: Soft Genitourinary: Yes: Webster Present Musculoskeletal: Yes: WNL Edema: No Neurological: Yes: Confusion, Other (awake) Labs: CBC, BMP 11/06/18 05:30 11/06/18 05:30 INR, PTT INR 1.23 (0.83-1.09) H 11/06/18 05:30 - ....Imaging Chest X-ray: Report Reviewed Problem List - Problems (1) Acute hypoxemic respiratory failure Code(s): J96.01 - ACUTE RESPIRATORY FAILURE WITH HYPOXIA (2) ESRD (end stage renal disease) Code(s): N18.6 - END STAGE RENAL DISEASE (3) Sepsis Code(s): A41.9 - SEPSIS, UNSPECIFIED ORGANISM Qualifiers: Sepsis type: sepsis due to unspecified organism Qualified Code(s): A41.9 - Sepsis, unspecified organism Assessment/Plan Current Medications Generic Name Dose Route Start Last Admin Trade Name Freq PRN Reason Stop Dose Admin Collagenase 1 applic 10/30/18 10:00 11/06/18 14:01 Santyl - TP 1 applic DAILY [facility] Administration Protocol Daptomycin 760 mg/ Sodium 100 mls @ 200 mls/hr 11/02/18 10:15 11/06/18 13:14 Chloride IVPB 200 mls/hr Q48H [facility] Administration Protocol Ceftaroline Fosamil 200 mg/ 100 mls @ 200 mls/hr 11/05/18 13:30 11/06/18 10: 14 Dextrose IVPB 200 mls/hr BID [facility] Administration Protocol Pantoprazole Sodium 40 mg 10/30/18 10:00 11/06/18 10:14 Protonix Iv IVPUSH 40 mg DAILY [facility] Administration Warfarin Sodium 5 mg 11/05/18 18:00 11/05/18 21:42 Coumadin - PO 5 mg DAILY@1800 [facility] Administration Microbiology 11/03/18 05:05 Blood - Peripheral Venous Blood Culture - Final Mr S Aureus 11/03/18 05:05 Blood - Peripheral Venous Blood Culture - Final Mr S Aureus 11/01/18 05:45 Blood - Peripheral Venous Blood Culture - Final Mr S Aureus 11/01/18 05:30 Blood - Peripheral Venous Blood Culture - Final Mr S Aureus 10/31/18 12:43 Catheter Site Gram Stain - Final 10/31/18 12:43 Catheter Site Wound Culture - Final Mr S Aureus 10/30/18 15:00 Sputum - Endotrachea Suction/Ventilator Gram Stain - Final 10/30/18 15:00 Sputum - Endotrachea Suction/Ventilator Sputum Culture - Final Escherichia Coli Esbl Bit Tapper Mr S Aureus 10/30/18 13:00 Blood - Pre-Dialysis Blood Culture - Final Mr S Aureus 10/30/18 10:40 Blood - Peripheral Venous Blood Culture - Final Mr S Aureus 10/30/18 10:25 Blood - Peripheral Venous Blood Culture - Final Mr S Aureus 10/29/18 08:00 Urine - Urine Clean Catch Urine Culture - Final NO GROWTH OBTAINED 10/29/18 06:50 Blood - Peripheral Venous Blood Culture - Final Mr S Aureus 10/29/18 06:50 Blood - Peripheral Venous Blood Culture - Final Mr S Aureus 11/05/18 05:40 Blood - Peripheral Venous Blood Culture - Preliminary Pending Organism 11/05/18 05:30 Blood - Peripheral Venous Blood Culture - Preliminary Pending Organism Impression 1. ESRD 2. acute rep failure 3. DM 4. hyperlipidemia 5. HTN 6. gout 7. proteinuria 8. hypotension/shock 9. sepsis 10. bacteremia Plan - cultures remains positive - abx per ID - will evaluate for HD on a daily basis - monitor pulse ox - pt does not have HD access at this time
--- NOTE | 2018-11-06 15:56 | PN ---
Progress Note (short form) - Note Progress Note: FUV wounds right ankle and foot. +granulating well, -drainage, -mal odor, wounds right lower extremity If possible off load patient on his right side of foot and ankle. Santyl to all wounds. Will follow. No intervention at this time.
[2018-11-06] MEDS: WARFARIN NA 5 MG TABLET (UD) PO SCH (18:49)
[2018-11-06] MEDS ORDERED: EPOETIN ALFA 2,000 UNIT/1 ML VIAL IVPUSH ONE (23:02)
--- NOTE | 2018-11-07 06:57 | PN ---
Progress Note (short form) - Note Progress Note: Vascular Surgery remains on standby for new tunneled permacath access once he has confirmed negative blood cultures.
--- NOTE | 2018-11-07 08:56 | PN ---
Progress Note, Physician - Current Medication List Current Medications: Active Medications Collagenase (Santyl -) 1 applic TP DAILY [facility]; Protocol Ceftaroline Fosamil 200 mg/ (Dextrose) 100 mls @ 200 mls/hr IVPB BID [facility]; Protocol Daptomycin 760 mg/ Sodium (Chloride) 100 mls @ 200 mls/hr IVPB Q48H [facility]; Protocol Pantoprazole Sodium (Protonix Iv) 40 mg IVPUSH DAILY [facility] Warfarin Sodium (Coumadin -) 5 mg PO DAILY@1800 [facility] - Objective Vital Signs: Vital Signs Temperature 97.5 F L 11/07/18 05:43 Pulse Rate 100 H 11/07/18 05:43 Respiratory Rate 20 11/07/18 05:43 Blood Pressure 119/60 11/07/18 05:43 O2 Sat by Pulse Oximetry (%) 100 11/06/18 20:51 Cardiovascular: Yes: S1, S2 Respiratory: Yes: On Venti-Mask, Rhonchi Gastrointestinal: Yes: Normal Bowel Sounds, Soft Labs: CBC, BMP 11/06/18 05:30 11/06/18 05:30 INR, PTT INR 1.23 (0.83-1.09) H 11/06/18 05:30 Assessment/Plan - Problems (1) Acute hypoxemic respiratory failure Assessment/Plan: eXtubated off sedation on venti-mask Code(s): J96.01 - ACUTE RESPIRATORY FAILURE WITH HYPOXIA (2) Supratherapeutic INR Assessment/Plan: got vitamin K in er on admission on coumadin for afib monitor INR- Laboratory Tests 11/05/18 11/06/18 13:30 05:30 INR 1.31 H 1.23 H Code(s): R79.1 - ABNORMAL COAGULATION PROFILE (3) ESRD (end stage renal disease) Assessment/Plan: HD per renal Code(s): N18.6 - END STAGE RENAL DISEASE (4) Wound, open, foot Assessment/Plan: podiatry ID broad abx dvt ppx wound care santyl Code(s): S91.309A - UNSPECIFIED OPEN WOUND, UNSPECIFIED FOOT, INITIAL ENCOUNTER Qualifiers: Laterality: right (5) Sepsis Assessment/Plan: Microbiology Microbiology 11/05/18 05:40 Blood - Peripheral Venous Blood Culture - Preliminary Presumptive Mssa (Pbp2a Neg) 11/05/18 05:30 Blood - Peripheral Venous Blood Culture - Preliminary Presumptive Mssa (Pbp2a Neg) 11/03/18 05:05 Blood - Peripheral Venous Blood Culture - Final Mr S Aureus 11/03/18 05:05 Blood - Peripheral Venous Blood Culture - Final Mr S Aureus 10/30/18 15:00 Sputum - Endotrachea Suction/Ventilator Gram Stain - Final 10/30/18 15:00 Sputum - Endotrachea Suction/Ventilator Sputum Culture - Final Escherichia Coli Esbl Hospital Admitting Clerk Mr S Aureus 11/01/18 05:45 Blood - Peripheral Venous Blood Culture - Final Mr S Aureus 11/01/18 05:30 Blood - Peripheral Venous Blood Culture - Final Mr S Aureus 10/29/18 06:50 Blood - Peripheral Venous Blood Culture - Final Mr S Aureus 10/29/18 06:50 Blood - Peripheral Venous Blood Culture - Final Mr S Aureus 10/31/18 12:43 Catheter Site Gram Stain - Final 10/31/18 12:43 Catheter Site Wound Culture - Final S Aureus 10/30/18 13:00 Blood - Pre-Dialysis Blood Culture - Final Mr S Aureus 10/30/18 10:40 Blood - Peripheral Venous Blood Culture - Final Mr S Aureus 10/30/18 10:25 Blood - Peripheral Venous Blood Culture - Final Mr S Aureus 10/29/18 08:00 Urine - Urine Clean Catch Urine Culture - Final NO GROWTH OBTAINED echo done no vegetation daptomycin zosyn off preosrs Code(s): A41.9 - SEPSIS, UNSPECIFIED ORGANISM Qualifiers: Sepsis type: sepsis due to unspecified organism Qualified Code(s): A41.9 - Sepsis, unspecified organism
[2018-11-07] MEDS: PANTOPRAZOLE SODIUM 40 MG VIAL IVPUSH SCH (10:55)
[2018-11-07] MEDS: CEFTAROLINE FOSAMIL ACETATE 200 MG in DEXTROSE 5%-WATER - 100 ML IVPB SCH ×2 (10:55→22:55)
[2018-11-07] MEDS: COLLAGENASE CLOSTRIDIUM HIST. 30 GRAMS TUBE TP SCH (10:55)
--- NOTE | 2018-11-07 11:14 | PN ---
Progress Note, Physician Chief Complaint: BREATHING NON LABORED DENIES PAIN AFEBRILE REPEAT BC (11/05) +GPCCL CXR L LUNG INFILTRATE ATELECTASIS R LUNG FIELD - Current Medication List Current Medications: Active Medications Collagenase (Santyl -) 1 applic TP DAILY [facility]; Protocol Last Admin: 11/07/18 10:55 Dose: 1 applic Ceftaroline Fosamil 200 mg/ (Dextrose) 100 mls @ 200 mls/hr IVPB BID [facility]; Protocol Last Admin: 11/07/18 10:55 Dose: 200 mls/hr Daptomycin 760 mg/ Sodium (Chloride) 100 mls @ 200 mls/hr IVPB Q48H [facility]; Protocol Pantoprazole Sodium (Protonix Iv) 40 mg IVPUSH DAILY [facility] Last Admin: 11/07/18 10:55 Dose: 40 mg Warfarin Sodium (Coumadin -) 5 mg PO DAILY@1800 [facility] - Objective Vital Signs: Vital Signs Temperature 97.5 F L 11/07/18 05:43 Pulse Rate 100 H 11/07/18 05:43 Respiratory Rate 20 11/07/18 05:43 Blood Pressure 119/60 11/07/18 05:43 O2 Sat by Pulse Oximetry (%) 100 11/06/18 20:51 Constitutional: Yes: No Distress Eyes: Yes: Conjunctiva Clear Cardiovascular: Yes: Regular Rate and Rhythm, S1, S2 Respiratory: Yes: Rhonchi Gastrointestinal: Yes: Normal Bowel Sounds, Soft. No: Tenderness Edema: Yes Labs: CBC, BMP 11/06/18 05:30 11/06/18 05:30 INR, PTT INR 1.23 (0.83-1.09) H 11/06/18 05:30 Assessment/Plan SEPSIS/ SEPTIC SHOCK OFF PRESSORS STAPH BACTEREMIA MRSA ? FOOT SOURCE ? CATHETER CATHETER REMOVED RESP FAILURE S/P EXTUBATION ACUTE EXACERBATION COPD ? L PNEUMONIA COAGULOPATHY NON HEALING FOOT ULCERS REPEAT BC REMAIN POSITIVE CONTINUE DAPTOMYCIN 8MG/KG + CEFTAROLINE NOT A CANDIDATE FOR ALEJO PER CARDIOLOGY
--- NOTE | 2018-11-07 11:53 | PN ---
Progress Note, Physician History of Present Illness: pulmonary lethargic,arousable,-resp distress on 40%vm ,temp 99.8 - Current Medication List Current Medications: Active Medications Collagenase (Santyl -) 1 applic TP DAILY [facility]; Protocol Last Admin: 11/07/18 10:55 Dose: 1 applic Ceftaroline Fosamil 200 mg/ (Dextrose) 100 mls @ 200 mls/hr IVPB BID [facility]; Protocol Last Admin: 11/07/18 10:55 Dose: 200 mls/hr Daptomycin 760 mg/ Sodium (Chloride) 100 mls @ 200 mls/hr IVPB Q48H [facility]; Protocol Pantoprazole Sodium (Protonix Iv) 40 mg IVPUSH DAILY [facility] Last Admin: 11/07/18 10:55 Dose: 40 mg Warfarin Sodium (Coumadin -) 5 mg PO DAILY@1800 [facility] - Objective Vital Signs: Vital Signs Temperature 99.8 F H 11/07/18 10:50 Pulse Rate 99 H 11/07/18 10:50 Respiratory Rate 22 H 11/07/18 10:50 Blood Pressure 122/64 11/07/18 10:50 O2 Sat by Pulse Oximetry (%) 100 11/06/18 20:51 Constitutional: Yes: Well Nourished, Other (lethargic) Eyes: Yes: WNL HENT: Yes: WNL Neck: Yes: WNL Cardiovascular: Yes: Pulse Irregular, S1, S2 Respiratory: Yes: Diminished, Rhonchi (few sccattered rojas rhonchi) Gastrointestinal: Yes: Normal Bowel Sounds, Soft Extremities: Yes: WNL Edema: Yes Labs: CBC, BMP 11/06/18 05:30 Problem List - Problems (1) MRSA (methicillin resistant staph aureus) culture positive Code(s): Z22.322 - CARRIER OR SUSPECTED CARRIER OF METHICILLIN RESIS STAPH (2) Acute hypoxemic respiratory failure Code(s): J96.01 - ACUTE RESPIRATORY FAILURE WITH HYPOXIA (3) Anemia in chronic illness Code(s): D63.8 - ANEMIA IN OTHER CHRONIC DISEASES CLASSIFIED ELSEWHERE (4) Cellulitis of foot Code(s): L03.119 - CELLULITIS OF UNSPECIFIED PART OF LIMB (5) ESRD (end stage renal disease) Code(s): N18.6 - END STAGE RENAL DISEASE (6) Supratherapeutic INR Code(s): R79.1 - ABNORMAL COAGULATION PROFILE (7) Cellulitis Code(s): L03.90 - CELLULITIS, UNSPECIFIED Qualifiers: Site of cellulitis: extremity Site of cellulitis of extremity: lower extremity Laterality: right Qualified Code(s): L03.115 - Cellulitis of right lower limb (8) Diabetes Code(s): E11.9 - TYPE 2 DIABETES MELLITUS WITHOUT COMPLICATIONS Qualifiers: Diabetes mellitus type: type 2 (9) HTN (hypertension) Code(s): I10 - ESSENTIAL (PRIMARY) HYPERTENSION Qualifiers: Hypertension type: essential hypertension Qualified Code(s): I10 - Essential (primary) hypertension (10) Wound, open, foot Code(s): S91.309A - UNSPECIFIED OPEN WOUND, UNSPECIFIED FOOT, INITIAL ENCOUNTER Qualifiers: Laterality: right Assessment/Plan ASSESSMENT AND PLAN: s/p Acute Hypoxic Respiratory Failure Pneumonia Suspected Diabetic Foot Ulcer Infection No evidence of Permacath Infection MRSA Bacteremia Septic Shock ESRD on HD Lactic Acidosis +Troponins likely Demand Ischemia Supratherapeutic INR Atrial Fibrillation h/o CVA Severe Mitral Regurgitation HTN DM COPD - continue antibiotics per ID - local wound care - AC - rate control - HD per renal - VM O2 as needed to maintain SpO2 >90% - Speech and swallow evaluation - Aspiration precautions - DVT/GI prophylaxis DR GODINEZ
--- NOTE | 2018-11-07 13:12 | PN ---
Progress Note, Physician History of Present Illness: Pt seen and examined at bedside. He is now in the medical carr. - Current Medication List Current Medications: Active Medications Collagenase (Santyl -) 1 applic TP DAILY [facility]; Protocol Last Admin: 11/07/18 10:55 Dose: 1 applic Ceftaroline Fosamil 200 mg/ (Dextrose) 100 mls @ 200 mls/hr IVPB BID [facility]; Protocol Last Admin: 11/07/18 10:55 Dose: 200 mls/hr Daptomycin 760 mg/ Sodium (Chloride) 100 mls @ 200 mls/hr IVPB Q48H [facility]; Protocol Pantoprazole Sodium (Protonix Iv) 40 mg IVPUSH DAILY [facility] Last Admin: 11/07/18 10:55 Dose: 40 mg Warfarin Sodium (Coumadin -) 5 mg PO DAILY@1800 [facility] - Objective Vital Signs: Vital Signs Temperature 99.8 F H 11/07/18 10:50 Pulse Rate 99 H 11/07/18 10:50 Respiratory Rate 22 H 11/07/18 10:50 Blood Pressure 122/64 11/07/18 10:50 O2 Sat by Pulse Oximetry (%) 100 11/06/18 20:51 Constitutional: Yes: Calm Eyes: Yes: Conjunctiva Clear Cardiovascular: Yes: S1, S2 Respiratory: Yes: On Venti-Mask Gastrointestinal: Yes: Soft, Abdomen, Obese Genitourinary: Yes: Incontinence Musculoskeletal: Yes: Muscle Weakness Edema: No Neurological: Yes: Confusion Labs: CBC, BMP 11/06/18 05:30 11/06/18 05:30 INR, PTT INR 1.23 (0.83-1.09) H 11/06/18 05:30 Problem List - Problems (1) Acute hypoxemic respiratory failure Code(s): J96.01 - ACUTE RESPIRATORY FAILURE WITH HYPOXIA (2) ESRD (end stage renal disease) Code(s): N18.6 - END STAGE RENAL DISEASE (3) Sepsis Code(s): A41.9 - SEPSIS, UNSPECIFIED ORGANISM Qualifiers: Sepsis type: sepsis due to unspecified organism Qualified Code(s): A41.9 - Sepsis, unspecified organism Assessment/Plan Current Medications Generic Name Dose Route Start Last Admin Trade Name Freq PRN Reason Stop Dose Admin Collagenase 1 applic 11/07/18 10:00 11/07/18 10:55 Santyl - TP 1 applic DAILY [facility] Administration Protocol Ceftaroline Fosamil 200 mg/ 100 mls @ 200 mls/hr 11/07/18 10:00 11/07/18 10: 55 Dextrose IVPB 200 mls/hr BID [facility] Administration Protocol Daptomycin 760 mg/ Sodium 100 mls @ 200 mls/hr 11/08/18 13:00 Chloride IVPB Q48H [facility] Protocol Pantoprazole Sodium 40 mg 11/07/18 10:00 11/07/18 10:55 Protonix Iv IVPUSH 40 mg DAILY [facility] Administration Warfarin Sodium 5 mg 11/07/18 18:00 Coumadin - PO DAILY@1800 [facility] Impression 1. ESRD 2. acute rep failure 3. DM 4. hyperlipidemia 5. HTN 6. gout 7. proteinuria 8. hypotension/shock 9. sepsis 10. bacteremia Plan - cont abx - HD tomorrow, will need francie cath - repeat labs in am - ID follow up - monitor pulse ox
--- NOTE | 2018-11-07 15:16 | PN ---
Progress Note, TROUBLE LOCATOR TEST DESK - Note Progress Note: More awake today. Rare intelligible verbalizations with intelligibility adversely affected by stuttering and hypophonia. Pt was premorbidly verbal and communicative on sentence level per nurse from [facility] that I spoke to. shay? cell . Unclear why his speech is different than baseline, per [facility] nurse. Head CT 10/29 noted. Pt more alert. Vocal wetness intermittently. Pt c/o abdominal pain to me. Said he is in the "hospital." Possibly repeat MBS 11/08 or 15 if improved function to initiate PO trials vs consider PEG?
--- NOTE | 2018-11-07 15:37 | PN ---
Progress Note, Physician Chief Complaint: Lethargic. Cannot answer questions. Hypoxic requiring supplemental O2. History of Present Illness: 73 M NHR with ESRD, questionable Afib history. Has severe PVD. was admitted with septic shock and required intubation and pressor support. He is being treated for PNA but there is persistent Blood culture positive for MRSA on repeated blood cultures with possible catheter related infection. He has improved clinically and is now off pressors and is extubated although remains on high concentration of O2. He is alert but is in mild respiratory distress and does not answer questions. An echocardiogram doen 10/31 showed normal LV and RV function. There is mild TV and MV thickening but no vegetations were seen. There is moderate to severe MR and moderate TR. - Current Medication List Current Medications: Active Medications Collagenase (Santyl -) 1 applic TP DAILY [facility]; Protocol Last Admin: 11/07/18 10:55 Dose: 1 applic Ceftaroline Fosamil 200 mg/ (Dextrose) 100 mls @ 200 mls/hr IVPB BID [facility]; Protocol Last Admin: 11/07/18 10:55 Dose: 200 mls/hr Daptomycin 760 mg/ Sodium (Chloride) 100 mls @ 200 mls/hr IVPB Q48H [facility]; Protocol Pantoprazole Sodium (Protonix Iv) 40 mg IVPUSH DAILY [facility] Last Admin: 11/07/18 10:55 Dose: 40 mg Warfarin Sodium (Coumadin -) 5 mg PO DAILY@1800 [facility] - Objective Vital Signs: Vital Signs Temperature 99.1 F 11/07/18 13:38 Pulse Rate 100 H 11/07/18 13:38 Respiratory Rate 20 11/07/18 13:38 Blood Pressure 119/65 11/07/18 13:38 O2 Sat by Pulse Oximetry (%) 100 11/06/18 20:51 Constitutional: Yes: Mild Distress, Thin Eyes: Yes: Conjunctiva Clear HENT: Yes: Atraumatic, Normocephalic Neck: Yes: Trachea Midline Cardiovascular: Yes: Regular Rate and Rhythm, S1, S2. No: JVD Respiratory: Yes: Regular, CTA Bilaterally Gastrointestinal: Yes: Normal Bowel Sounds, Soft Edema: No Labs: CBC, BMP 11/06/18 05:30 11/06/18 05:30 INR, PTT INR 1.23 (0.83-1.09) H 11/06/18 05:30 Problem List - Problems (1) Acute hypoxemic respiratory failure Code(s): J96.01 - ACUTE RESPIRATORY FAILURE WITH HYPOXIA (2) Sepsis Code(s): A41.9 - SEPSIS, UNSPECIFIED ORGANISM Qualifiers: Sepsis type: sepsis due to unspecified organism Qualified Code(s): A41.9 - Sepsis, unspecified organism Assessment/Plan 73 M with multiple comorbidities as described. PVD, DM, ESRD. Admitted with severe sepsis requiring intubation and pressor support. Multiple blood cultures positive for MRSA despite ABX with suspected sources: Foot vs catheter related. Persistent MRSA bacteremia despite aggressive Abx therapy. He is not a candidate for ALEJO at this time given lethargy, hypoxia and respiratory problems. He is not a surgical candidate at this time should a large vegetation be found. No documentation for Afib is found. Unless alternate reason, would hold systemic anticoagulation. No further recommendations at this time.
[2018-11-07 17:57] LABS: INR 1.37 (0.83-1.09); PROTHROMBIN TIME (PATIENT) 16.2 SEC (9.7-13.0)
[2018-11-07] MEDS: WARFARIN NA 5 MG TABLET (UD) PO SCH (18:45)
[2018-11-07] MEDS ORDERED: PT OWN MED DRAWER 7, Y5N ONE (22:23)
[2018-11-08 07:25] LABS: BASO % 0.7 % (0-2.0); HEMATOCRIT 25.2 % (35.4-49); HEMOGLOBIN 8.3 GM/dL (11.7-16.9); MCH 30.5 pg (25.7-33.7); MCHC 32.8 g/dl (32.0-35.9); MEAN CELL VOLUME 92.9 fl (80-96); MEAN PLT VOLUME 8.5 fl (7.5-11.1); MONO % 6.6 % (3.8-10.2); NEUT % 75.7 % (42.8-82.8); PLATELET COUNT 276 K/MM3 (134-434); RBC 2.71 M/mm3 (4.00-5.60); RDW 16.3 % (11.9-15.9); WHITE BLOOD COUNT 10.4 K/mm3 (4.0-10.0)
[2018-11-08 07:59] LABS: ALBUMIN 1.8 g/dl (3.4-5.0); ALK PHOS 162 U/L (45-117); ANION GAP 6 MMOL/L (8-16); BILIRUBIN,TOTAL 0.3 mg/dL (0.2-1); BLOOD UREA NITROGEN 48 mg/dL (7-18); CALCIUM 7.9 mg/dL (8.5-10.1); CHLORIDE 102 mmol/L (98-107); CO2 33 mmol/L (21-32); CREATININE 6.2 mg/dL (0.55-1.3); GLUCOSE,RANDOM 150 mg/dL (74-106); POTASSIUM 3.6 mmol/L (3.5-5.1); SGOT/AST 19 U/L (15-37); SGPT/ALT 16 U/L (13-61); SODIUM 141 mmol/L (136-145); TOT PROT 6.6 g/dl (6.4-8.2)
--- NOTE | 2018-11-08 09:23 | PROC ---
Central Line Insertion - Procedure Note TIME OUT performed prior to this procedure with verbal confirmation of correct patient identity, correct side, agreement of the procedure, correct patient position, availability of necessary equipment. The consent form is complete and accurate. Risk of possible infection, bleeding and pneumothorax have been discussed with the patient. Safety precautions based on patient history or medication use has been addressed. Indication: Other (dialysis) Consent on Chart: Yes Central Line: Dialysis Cath, Dual Lumen Position: Supine Area prepped with Chlorhexidine solution then draped using sterile barrier protection. Technique used: Seldinger Ultrasound Guided Assistance: Yes Site: Right Femoral Dark venous non-pulsatile flow noted from hub of needle. The catheter was introduced. Guide wire removed intact. Each port aspirated then flushed with sterile normal saline and capped with Tego caps. Line secured to skin with silk suture. Biopatch placed around base of line. Sterile occlusive dressing applied. No complications. Patient tolerated the procedure well. Dialysis was notified that shiley is in place. Senior MADELAINE Miguel was present and assisted throughout the entire procedure.
--- NOTE | 2018-11-08 11:26 | PN ---
Progress Note, TESTING MANAGER - Note Progress Note: Selected Entries 11/08/18 11/08/18 11/08/18 02:00 06:00 10:00 Breakfast Temperature 98.8 F 98.4 F 98.4 F 11/08/18 10:43 Breakfast NPO Temperature Laboratory Tests 11/04/18 11/05/18 11/06/18 05:30 05:30 05:30 WBC 11.2 H 10.2 H 8.2 11/08/18 06:50 WBC 10.4 H Pt arousable, repeated Hello, quite weak. Rare, non functional swallow. NGT in place. What are pt's end of life wishes regarding PEG insertion? Very limited improvement in swallowing function and communication. Consider PEG.
[2018-11-08] MEDS ORDERED: SODIUM CHLORIDE 250 ML IV PRN (11:35)
--- NOTE | 2018-11-08 11:42 | PN ---
Progress Note, Physician History of Present Illness: Pt seen and examined at bedside. He is awake but confused. - Current Medication List Current Medications: Active Medications Collagenase (Santyl -) 1 applic TP DAILY [facility]; Protocol Last Admin: 11/07/18 10:55 Dose: 1 applic Epoetin Jose (Epogen -) 10,000 unit IVPUSH ONCE ONE Stop: 11/08/18 11:36 Ceftaroline Fosamil 200 mg/ (Dextrose) 100 mls @ 200 mls/hr IVPB BID [facility]; Protocol Last Admin: 11/07/18 22:55 Dose: 200 mls/hr Daptomycin 760 mg/ Sodium (Chloride) 100 mls @ 200 mls/hr IVPB Q48H [facility]; Protocol Sodium Chloride (Normal Saline -) 250 mls @ 3,000 mls/hr IV PRN PRN PRN Reason: Hypotension during Dialysis Stop: 11/09/18 11:35 Pantoprazole Sodium (Protonix Iv) 40 mg IVPUSH DAILY [facility] Last Admin: 11/07/18 10:55 Dose: 40 mg Warfarin Sodium (Coumadin -) 5 mg PO DAILY@1800 [facility] Last Admin: 11/07/18 18:45 Dose: 5 mg - Objective Vital Signs: Vital Signs Temperature 98.4 F 11/08/18 10:00 Pulse Rate 79 11/08/18 10:00 Respiratory Rate 20 11/08/18 10:00 Blood Pressure 122/64 11/08/18 10:00 O2 Sat by Pulse Oximetry (%) 98 11/07/18 22:00 Constitutional: Yes: Calm Eyes: Yes: Conjunctiva Clear HENT: Yes: Atraumatic Neck: Yes: Supple Cardiovascular: Yes: S1, S2 Respiratory: Yes: On Venti-Mask Gastrointestinal: Yes: Soft Genitourinary: Yes: Incontinence Musculoskeletal: Yes: Muscle Weakness Edema: Yes Edema: LLE: 1+, RLE: 1+ Neurological: Yes: Confusion Labs: CBC, BMP 11/08/18 06:50 11/08/18 06:50 INR, PTT INR 1.37 (0.83-1.09) H 11/07/18 16:45 Problem List - Problems (1) Acute hypoxemic respiratory failure Code(s): J96.01 - ACUTE RESPIRATORY FAILURE WITH HYPOXIA (2) ESRD (end stage renal disease) Code(s): N18.6 - END STAGE RENAL DISEASE (3) Sepsis Code(s): A41.9 - SEPSIS, UNSPECIFIED ORGANISM Qualifiers: Sepsis type: sepsis due to unspecified organism Qualified Code(s): A41.9 - Sepsis, unspecified organism Assessment/Plan Current Medications Generic Name Dose Route Start Last Admin Trade Name Freq PRN Reason Stop Dose Admin Collagenase 1 applic 11/07/18 10:00 11/07/18 10:55 Santyl - TP 1 applic DAILY [facility] Administration Protocol Epoetin Jose 10,000 unit 11/08/18 11:35 Epogen - IVPUSH 11/08/18 11:36 ONCE ONE Ceftaroline Fosamil 200 mg/ 100 mls @ 200 mls/hr 11/07/18 10:00 11/07/18 22: 55 Dextrose IVPB 200 mls/hr BID [facility] Administration Protocol Daptomycin 760 mg/ Sodium 100 mls @ 200 mls/hr 11/08/18 13:00 Chloride IVPB Q48H [facility] Protocol Sodium Chloride 250 mls @ 3,000 mls/hr 11/08/18 11:35 Normal Saline - IV 11/09/18 11:35 PRN PRN Hypotension during Dialysis Pantoprazole Sodium 40 mg 11/07/18 10:00 11/07/18 10:55 Protonix Iv IVPUSH 40 mg DAILY [facility] Administration Warfarin Sodium 5 mg 11/07/18 18:00 11/07/18 18:45 Coumadin - PO 5 mg DAILY@1800 [facility] Administration Impression 1. ESRD 2. acute rep failure 3. DM 4. hyperlipidemia 5. HTN 6. gout 7. proteinuria 8. hypotension/shock 9. sepsis 10. bacteremia Plan - will arrange for HD today - pt had francie placed - repeat labs in am - pt on abx per ID - monitor pulse ox - blood cultures remain positive
[2018-11-08] MEDS ORDERED: EPOETIN ALFA 10,000 UNIT/1 ML VIAL IVPUSH ONE (12:00)
--- NOTE | 2018-11-08 14:00 | PN ---
Progress Note (short form) - Note Progress Note: Lethargic but arousable. Confused. NAD on VM O2. Intake & Output 11/05/18 11/06/18 11/07/18 11/08/18 23:59 23:59 23:59 23:59 Intake Total 400 1745 1075 50 Balance 400 1745 1075 50 Weight 212 lb 188 lb 8 oz Last Vital Signs Temp Pulse Resp BP Pulse Ox 98.5 F 79 18 92/52 L 98 11/08/18 11:55 11/08/18 12:30 11/08/18 12:30 11/08/18 12:30 11/07/18 22:00 Active Medications Collagenase (Santyl -) 1 applic TP DAILY [facility]; Protocol Last Admin: 11/07/18 10:55 Dose: 1 applic Ceftaroline Fosamil 200 mg/ (Dextrose) 100 mls @ 200 mls/hr IVPB BID [facility]; Protocol Last Admin: 11/07/18 22:55 Dose: 200 mls/hr Daptomycin 760 mg/ Sodium (Chloride) 100 mls @ 200 mls/hr IVPB Q48H [facility]; Protocol Sodium Chloride (Normal Saline -) 250 mls @ 3,000 mls/hr IV PRN PRN PRN Reason: Hypotension during Dialysis Stop: 11/09/18 11:35 Pantoprazole Sodium (Protonix Iv) 40 mg IVPUSH DAILY [facility] Last Admin: 11/07/18 10:55 Dose: 40 mg Warfarin Sodium (Coumadin -) 5 mg PO DAILY@1800 [facility] Last Admin: 11/07/18 18:45 Dose: 5 mg Constitutional: Yes: Lethargic Eyes: Yes: WNL HENT: Yes: WNL Neck: Yes: WNL Cardiovascular: Yes: Pulse Irregular, S1, S2 Respiratory: Yes: Diminished, bilateral coarse Rhonchi Gastrointestinal: Yes: Normal Bowel Sounds, Soft Extremities: Yes: WNL Edema: Yes Labs: Laboratory Results - last 24 hr 11/07/18 11/08/18 11/08/18 16:45 06:50 06:50 WBC 10.4 H RBC 2.71 L Hgb 8.3 L Hct 25.2 L MCV 92.9 MCH 30.5 MCHC 32.8 RDW 16.3 H Plt Count 276 D MPV 8.5 Absolute Neuts (auto) 7.9 Neutrophils % 75.7 Lymphocytes % 15.0 D Monocytes % 6.6 Eosinophils % 2.0 D Basophils % 0.7 Nucleated RBC % 0 PT with INR 16.20 H INR 1.37 H Sodium 141 Potassium 3.6 Chloride 102 Carbon Dioxide 33 H Anion Gap 6 L BUN 48 H Creatinine 6.2 H Creat Clearance w eGFR 8.90 Random Glucose 150 H Calcium 7.9 L Total Bilirubin 0.3 AST 19 ALT 16 Alkaline Phosphatase 162 H Total Protein 6.6 Albumin 1.8 L Problem List - Problems (1) MRSA (methicillin resistant staph aureus) culture positive Code(s): Z22.322 - CARRIER OR SUSPECTED CARRIER OF METHICILLIN RESIS STAPH (2) Acute hypoxemic respiratory failure Code(s): J96.01 - ACUTE RESPIRATORY FAILURE WITH HYPOXIA (3) Anemia in chronic illness Code(s): D63.8 - ANEMIA IN OTHER CHRONIC DISEASES CLASSIFIED ELSEWHERE (4) Cellulitis of foot Code(s): L03.119 - CELLULITIS OF UNSPECIFIED PART OF LIMB (5) ESRD (end stage renal disease) Code(s): N18.6 - END STAGE RENAL DISEASE (6) Supratherapeutic INR Code(s): R79.1 - ABNORMAL COAGULATION PROFILE (7) Cellulitis Code(s): L03.90 - CELLULITIS, UNSPECIFIED Qualifiers: Site of cellulitis: extremity Site of cellulitis of extremity: lower extremity Laterality: right Qualified Code(s): L03.115 - Cellulitis of right lower limb (8) Diabetes Code(s): E11.9 - TYPE 2 DIABETES MELLITUS WITHOUT COMPLICATIONS Qualifiers: Diabetes mellitus type: type 2 (9) HTN (hypertension) Code(s): I10 - ESSENTIAL (PRIMARY) HYPERTENSION Qualifiers: Hypertension type: essential hypertension Qualified Code(s): I10 - Essential (primary) hypertension (10) Wound, open, foot Code(s): S91.309A - UNSPECIFIED OPEN WOUND, UNSPECIFIED FOOT, INITIAL ENCOUNTER Qualifiers: Laterality: right Assessment/Plan Suspected Endocarditis S/P Acute Hypoxic Respiratory Failure Pneumonia Suspected Diabetic Foot Ulcer Infection No evidence of Permacath Infection MRSA Bacteremia Septic Shock ESRD on HD Lactic Acidosis +Troponins likely Demand Ischemia Supratherapeutic INR Atrial Fibrillation h/o CVA Severe Mitral Regurgitation HTN DM COPD - ABX per ID - local wound care - AC - rate control - HD per renal - VM O2 as needed to maintain SpO2 >90% - Aspiration precautions Dr Palmer
--- NOTE | 2018-11-08 14:21 | PN ---
Progress Note, Physician Chief Complaint: patient seen getting HD arousable groaning ng tube - Current Medication List Current Medications: Active Medications Collagenase (Santyl -) 1 applic TP DAILY [facility]; Protocol Last Admin: 11/07/18 10:55 Dose: 1 applic Ceftaroline Fosamil 200 mg/ (Dextrose) 100 mls @ 200 mls/hr IVPB BID [facility]; Protocol Last Admin: 11/07/18 22:55 Dose: 200 mls/hr Daptomycin 760 mg/ Sodium (Chloride) 100 mls @ 200 mls/hr IVPB Q48H [facility]; Protocol Sodium Chloride (Normal Saline -) 250 mls @ 3,000 mls/hr IV PRN PRN PRN Reason: Hypotension during Dialysis Stop: 11/09/18 11:35 Pantoprazole Sodium (Protonix Iv) 40 mg IVPUSH DAILY [facility] Last Admin: 11/07/18 10:55 Dose: 40 mg Warfarin Sodium (Coumadin -) 5 mg PO DAILY@1800 [facility] Last Admin: 11/07/18 18:45 Dose: 5 mg - Objective Vital Signs: Vital Signs Temperature 98.4 F 11/08/18 14:05 Pulse Rate 79 11/08/18 14:05 Respiratory Rate 18 11/08/18 14:05 Blood Pressure 92/52 L 11/08/18 14:05 O2 Sat by Pulse Oximetry (%) 98 11/07/18 22:00 Constitutional: Yes: Calm Cardiovascular: Yes: Regular Rate and Rhythm, S1, S2 Respiratory: Yes: On Venti-Mask Gastrointestinal: Yes: Normal Bowel Sounds, Soft Labs: CBC, BMP 11/08/18 06:50 11/08/18 06:50 INR, PTT INR 1.37 (0.83-1.09) H 11/07/18 16:45 Problem List - Problems (1) Acute hypoxemic respiratory failure Assessment/Plan: on venti mask Code(s): J96.01 - ACUTE RESPIRATORY FAILURE WITH HYPOXIA (2) Supratherapeutic INR Assessment/Plan: got vitamin K in er on admission on coumadin for afib monitor INR- now it is subtherapeutic Code(s): R79.1 - ABNORMAL COAGULATION PROFILE (3) ESRD (end stage renal disease) Assessment/Plan: HD per renal- today Code(s): N18.6 - END STAGE RENAL DISEASE (4) Wound, open, foot Assessment/Plan: podiatry ID broad abx dvt ppx wound care santyl Code(s): S91.309A - UNSPECIFIED OPEN WOUND, UNSPECIFIED FOOT, INITIAL ENCOUNTER Qualifiers: Laterality: right (5) Sepsis Assessment/Plan: Microbiology 10/31/18 12:43 Catheter Site Gram Stain - Final 10/30/18 15:00 Sputum - Endotrachea Suction/Ventilator Gram Stain - Final 10/31/18 12:43 Catheter Site Wound Culture - Preliminary Staphylococcus Latex Coag Pos 10/30/18 15:00 Sputum - Endotrachea Suction/Ventilator Sputum Culture - Preliminary Lactose Fermenting Neg Bacilli Presumptive Mrsa (Pbp2a Pos) 10/30/18 13:00 Blood - Pre-Dialysis Blood Culture - Preliminary Staphylococcus Latex Coag Pos 10/30/18 10:40 Blood - Peripheral Venous Blood Culture - Preliminary Staphylococcus Latex Coag Pos echo don no vegetation daptomycin zosyn Microbiology 10/31/18 12:43 Catheter Site Gram Stain - Final 10/31/18 12:43 Catheter Site Wound Culture - Final S Aureus 11/01/18 05:45 Blood - Peripheral Venous Blood Culture - Preliminary Pending Organism 11/01/18 05:30 Blood - Peripheral Venous Blood Culture - Preliminary Pending Organism off preosrs Microbiology 11/05/18 05:40 Blood - Peripheral Venous Blood Culture - Final Presumptive Mrsa (Pbp2a Pos) 11/05/18 05:30 Blood - Peripheral Venous Blood Culture - Final S Aureus 11/03/18 05:05 Blood - Peripheral Venous Blood Culture - Final S Aureus 11/03/18 05:05 Blood - Peripheral Venous Blood Culture - Final S Aureus 11/01/18 05:45 Blood - Peripheral Venous Blood Culture - Final S Aureus Code(s): A41.9 - SEPSIS, UNSPECIFIED ORGANISM Qualifiers: Sepsis type: sepsis due to unspecified organism Qualified Code(s): A41.9 - Sepsis, unspecified organism Assessment/Plan FEN via ng tube for now will need to discuss with family regarding peg placement if they want it
[2018-11-08] MEDS: SODIUM CHLORIDE IVPB SCH (15:54)
[2018-11-08] MEDS: DAPTOMYCIN IVPB SCH (15:54)
[2018-11-08] MEDS: COLLAGENASE CLOSTRIDIUM HIST. 30 GRAMS TUBE TP SCH (15:55)
[2018-11-08] MEDS: PANTOPRAZOLE SODIUM 40 MG VIAL IVPUSH SCH (15:55)
[2018-11-08] MEDS: CEFTAROLINE FOSAMIL ACETATE 200 MG in DEXTROSE 5%-WATER - 100 ML IVPB SCH ×2 (15:55→21:35)
[2018-11-08 18:32] LABS: INR 1.74 (0.83-1.09); PROTHROMBIN TIME (PATIENT) 20.7 SEC (9.7-13.0)
[2018-11-08] MEDS: WARFARIN NA 5 MG TABLET (UD) PO SCH (18:43)
--- NOTE | 2018-11-08 19:17 | PN ---
Progress Note, Physician Chief Complaint: AWAKE IN BED DENIES PAIN AFEBRILE REPEAT BC (11/05) + CXR L LUNG INFILTRATE ATELECTASIS R LUNG FIELD - Current Medication List Current Medications: Active Medications Collagenase (Santyl -) 1 applic TP DAILY [facility]; Protocol Last Admin: 11/08/18 15:55 Dose: 1 applic Ceftaroline Fosamil 200 mg/ (Dextrose) 100 mls @ 200 mls/hr IVPB BID [facility]; Protocol Last Admin: 11/08/18 15:55 Dose: 200 mls/hr Daptomycin 760 mg/ Sodium (Chloride) 100 mls @ 200 mls/hr IVPB Q48H [facility]; Protocol Last Admin: 11/08/18 15:54 Dose: 200 mls/hr Sodium Chloride (Normal Saline -) 250 mls @ 3,000 mls/hr IV PRN PRN PRN Reason: Hypotension during Dialysis Stop: 11/09/18 11:35 Pantoprazole Sodium (Protonix Iv) 40 mg IVPUSH DAILY [facility] Last Admin: 11/08/18 15:55 Dose: 40 mg Warfarin Sodium (Coumadin -) 5 mg PO DAILY@1800 [facility] Last Admin: 11/08/18 18:43 Dose: 5 mg - Objective Vital Signs: Vital Signs Temperature 98.6 F 11/08/18 16:09 Pulse Rate 98 H 11/08/18 16:09 Respiratory Rate 22 H 11/08/18 16:09 Blood Pressure 108/41 L 11/08/18 16:09 O2 Sat by Pulse Oximetry (%) 100 11/08/18 11:00 Constitutional: Yes: No Distress Eyes: Yes: Conjunctiva Clear Cardiovascular: Yes: Regular Rate and Rhythm, S1, S2 Respiratory: Yes: Diminished Gastrointestinal: Yes: Normal Bowel Sounds, Soft Edema: Yes Labs: CBC, BMP 11/08/18 06:50 11/08/18 06:50 INR, PTT INR 1.74 (0.83-1.09) H 11/08/18 17:00 Assessment/Plan SEPSIS/ SEPTIC SHOCK OFF PRESSORS STAPH BACTEREMIA MRSA ? FOOT SOURCE ? CATHETER CATHETER REMOVED RESP FAILURE S/P EXTUBATION ACUTE EXACERBATION COPD ? L PNEUMONIA COAGULOPATHY NON HEALING FOOT ULCERS REPEAT BC REMAIN POSITIVE CONTINUE DAPTOMYCIN 8MG/KG + CEFTAROLINE NOT A CANDIDATE FOR ALEJO PER CARDIOLOGY
[2018-11-08] MEDS: ACETAMINOPHEN 650 MG/20.3 ML ORAL SOLUTION (CUPS) NGT PRN (21:35)
[2018-11-09 06:32] LABS: INR 2.13 (0.83-1.09); PROTHROMBIN TIME (PATIENT) 25.3 SEC (9.7-13.0)
[2018-11-09 06:55] LABS: ALBUMIN 2.1 g/dl (3.4-5.0); ALK PHOS 161 U/L (45-117); ANION GAP 5 MMOL/L (8-16); BILIRUBIN,TOTAL 0.4 mg/dL (0.2-1); BLOOD UREA NITROGEN 37 mg/dL (7-18); CALCIUM 8.2 mg/dL (8.5-10.1); CHLORIDE 102 mmol/L (98-107); CO2 32 mmol/L (21-32); CREATININE 4.6 mg/dL (0.55-1.3); GLUCOSE,RANDOM 128 mg/dL (74-106); POTASSIUM 3.9 mmol/L (3.5-5.1); SGOT/AST 27 U/L (15-37); SGPT/ALT 20 U/L (13-61); SODIUM 139 mmol/L (136-145)
[2018-11-09] MEDS: CEFTAROLINE FOSAMIL ACETATE 200 MG in DEXTROSE 5%-WATER - 100 ML IVPB SCH ×2 (09:55→21:19)
[2018-11-09] MEDS: COLLAGENASE CLOSTRIDIUM HIST. 30 GRAMS TUBE TP SCH (09:55)
[2018-11-09] MEDS: PANTOPRAZOLE SODIUM 40 MG VIAL IVPUSH SCH (09:55)
--- NOTE | 2018-11-09 10:44 | PN ---
Progress Note, Physician History of Present Illness: pulmonary no change lethargic on VM - Current Medication List Current Medications: Active Medications Acetaminophen (Tylenol Oral Solution -) 650 mg NGT Q6H PRN PRN Reason: FEVER Last Admin: 11/08/18 21:35 Dose: 650 mg Collagenase (Santyl -) 1 applic TP DAILY [facility]; Protocol Last Admin: 11/09/18 09:55 Dose: 1 applic Ceftaroline Fosamil 200 mg/ (Dextrose) 100 mls @ 200 mls/hr IVPB BID [facility]; Protocol Last Admin: 11/09/18 09:55 Dose: 200 mls/hr Daptomycin 760 mg/ Sodium (Chloride) 100 mls @ 200 mls/hr IVPB Q48H [facility]; Protocol Last Admin: 11/08/18 15:54 Dose: 200 mls/hr Sodium Chloride (Normal Saline -) 250 mls @ 3,000 mls/hr IV PRN PRN PRN Reason: Hypotension during Dialysis Stop: 11/09/18 11:35 Pantoprazole Sodium (Protonix Iv) 40 mg IVPUSH DAILY [facility] Last Admin: 11/09/18 09:55 Dose: 40 mg Warfarin Sodium (Coumadin -) 5 mg PO DAILY@1800 [facility] Last Admin: 11/08/18 18:43 Dose: 5 mg - Objective Vital Signs: Vital Signs Temperature 99.6 F 11/09/18 07:40 Pulse Rate 94 H 11/09/18 10:22 Respiratory Rate 20 11/09/18 07:40 Blood Pressure 112/48 L 11/09/18 10:22 O2 Sat by Pulse Oximetry (%) 92 L 11/08/18 20:16 Constitutional: Yes: Well Nourished, Other (LETHARGIC) Eyes: Yes: WNL HENT: Yes: WNL Neck: Yes: WNL Cardiovascular: Yes: Pulse Irregular, S1, S2 Respiratory: Yes: Rhonchi (SCATTERED RICARDO RHONCHI) Gastrointestinal: Yes: Normal Bowel Sounds, Soft Extremities: Yes: WNL Edema: Yes Labs: CBC, BMP 11/08/18 06:50 11/09/18 06:00 INR, PTT INR 2.13 (0.83-1.09) H 11/09/18 06:00 Problem List - Problems (1) MRSA (methicillin resistant staph aureus) culture positive Code(s): Z22.322 - CARRIER OR SUSPECTED CARRIER OF METHICILLIN RESIS STAPH (2) Acute hypoxemic respiratory failure Code(s): J96.01 - ACUTE RESPIRATORY FAILURE WITH HYPOXIA (3) Anemia in chronic illness Code(s): D63.8 - ANEMIA IN OTHER CHRONIC DISEASES CLASSIFIED ELSEWHERE (4) Cellulitis of foot Code(s): L03.119 - CELLULITIS OF UNSPECIFIED PART OF LIMB (5) ESRD (end stage renal disease) Code(s): N18.6 - END STAGE RENAL DISEASE (6) Supratherapeutic INR Code(s): R79.1 - ABNORMAL COAGULATION PROFILE (7) Cellulitis Code(s): L03.90 - CELLULITIS, UNSPECIFIED Qualifiers: Site of cellulitis: extremity Site of cellulitis of extremity: lower extremity Laterality: right Qualified Code(s): L03.115 - Cellulitis of right lower limb (8) Diabetes Code(s): E11.9 - TYPE 2 DIABETES MELLITUS WITHOUT COMPLICATIONS Qualifiers: Diabetes mellitus type: type 2 (9) HTN (hypertension) Code(s): I10 - ESSENTIAL (PRIMARY) HYPERTENSION Qualifiers: Hypertension type: essential hypertension Qualified Code(s): I10 - Essential (primary) hypertension (10) Wound, open, foot Code(s): S91.309A - UNSPECIFIED OPEN WOUND, UNSPECIFIED FOOT, INITIAL ENCOUNTER Qualifiers: Laterality: right Assessment/Plan ASSESSMENT AND PLAN: s/p Acute Hypoxic Respiratory Failure Pneumonia Suspected Diabetic Foot Ulcer Infection MRSA Bacteremia S/P Septic Shock ESRD on HD Lactic Acidosis +Troponins likely Demand Ischemia Supratherapeutic INR Atrial Fibrillation h/o CVA Severe Mitral Regurgitation HTN DM COPD - continue antibiotics per ID - local wound care - AC - rate control - HD per renal - O2 as needed to maintain SpO2 >90% - Speech and swallow evaluation - Aspiration precautions - DVT/GI prophylaxis DR GODINEZ
--- NOTE | 2018-11-09 11:15 | PN ---
Progress Note, Physician Chief Complaint: patient with a temp today ng tube patient pulled out got HD yesterday - Current Medication List Current Medications: Active Medications Acetaminophen (Tylenol Oral Solution -) 650 mg NGT Q6H PRN PRN Reason: FEVER Last Admin: 11/08/18 21:35 Dose: 650 mg Collagenase (Santyl -) 1 applic TP DAILY [facility]; Protocol Last Admin: 11/09/18 09:55 Dose: 1 applic Ceftaroline Fosamil 200 mg/ (Dextrose) 100 mls @ 200 mls/hr IVPB BID [facility]; Protocol Last Admin: 11/09/18 09:55 Dose: 200 mls/hr Daptomycin 760 mg/ Sodium (Chloride) 100 mls @ 200 mls/hr IVPB Q48H [facility]; Protocol Last Admin: 11/08/18 15:54 Dose: 200 mls/hr Sodium Chloride (Normal Saline -) 250 mls @ 3,000 mls/hr IV PRN PRN PRN Reason: Hypotension during Dialysis Stop: 11/09/18 11:35 Pantoprazole Sodium (Protonix Iv) 40 mg IVPUSH DAILY [facility] Last Admin: 11/09/18 09:55 Dose: 40 mg Warfarin Sodium (Coumadin -) 5 mg PO DAILY@1800 [facility] Last Admin: 11/08/18 18:43 Dose: 5 mg - Objective Vital Signs: Vital Signs Temperature 99.6 F 11/09/18 07:40 Pulse Rate 94 H 11/09/18 10:22 Respiratory Rate 20 11/09/18 07:40 Blood Pressure 112/48 L 11/09/18 10:22 O2 Sat by Pulse Oximetry (%) 92 L 11/08/18 20:16 Constitutional: Yes: Other (lethargic but arousble) Cardiovascular: Yes: Regular Rate and Rhythm, S1, S2 Respiratory: Yes: Diminished, On Venti-Mask Gastrointestinal: Yes: Normal Bowel Sounds, Soft Extremities: Yes: Other (foot wrapped) Labs: CBC, BMP 11/08/18 06:50 11/09/18 06:00 INR, PTT INR 2.13 (0.83-1.09) H 11/09/18 06:00 Problem List - Problems (1) Sepsis Assessment/Plan: Microbiology 10/31/18 12:43 Catheter Site Gram Stain - Final 10/30/18 15:00 Sputum - Endotrachea Suction/Ventilator Gram Stain - Final 10/31/18 12:43 Catheter Site Wound Culture - Preliminary Staphylococcus Latex Coag Pos 10/30/18 15:00 Sputum - Endotrachea Suction/Ventilator Sputum Culture - Preliminary Lactose Fermenting Neg Bacilli Presumptive Mrsa (Pbp2a Pos) 10/30/18 13:00 Blood - Pre-Dialysis Blood Culture - Preliminary Staphylococcus Latex Coag Pos 10/30/18 10:40 Blood - Peripheral Venous Blood Culture - Preliminary Staphylococcus Latex Coag Pos echo don no vegetation too sick for TTE daptomycin ceftraloline Microbiology 10/31/18 12:43 Catheter Site Gram Stain - Final 10/31/18 12:43 Catheter Site Wound Culture - Final S Aureus 11/01/18 05:45 Blood - Peripheral Venous Blood Culture - Preliminary Pending Organism 11/01/18 05:30 Blood - Peripheral Venous Blood Culture - Preliminary Pending Organism off pressers Microbiology 11/05/18 05:40 Blood - Peripheral Venous Blood Culture - Final Presumptive Mrsa (Pbp2a Pos) 11/05/18 05:30 Blood - Peripheral Venous Blood Culture - Final S Aureus 11/03/18 05:05 Blood - Peripheral Venous Blood Culture - Final S Aureus 11/03/18 05:05 Blood - Peripheral Venous Blood Culture - Final S Aureus 11/01/18 05:45 Blood - Peripheral Venous Blood Culture - Final S Aureus inc wbc count today with temp will scan the spine to look for posible absces vs discitis CT chest shows infilrate in rihgt lower lobe seen by swallow team Code(s): A41.9 - SEPSIS, UNSPECIFIED ORGANISM Qualifiers: Sepsis type: sepsis due to unspecified organism Qualified Code(s): A41.9 - Sepsis, unspecified organism (2) Acute hypoxemic respiratory failure Assessment/Plan: resolved on venti mask Code(s): J96.01 - ACUTE RESPIRATORY FAILURE WITH HYPOXIA (3) Supratherapeutic INR Assessment/Plan: got vitamin K in er on admission on coumadin for afib monitor INR- now it is subtherapeutic Code(s): R79.1 - ABNORMAL COAGULATION PROFILE (4) ESRD (end stage renal disease) Assessment/Plan: HD per renal- today Code(s): N18.6 - END STAGE RENAL DISEASE (5) Wound, open, foot Assessment/Plan: podiatry ID broad abx dvt ppx wound care santyl Code(s): S91.309A - UNSPECIFIED OPEN WOUND, UNSPECIFIED FOOT, INITIAL ENCOUNTER Qualifiers: Laterality: right Assessment/Plan FEN replace ng tube tried calling daughter yesterday regarding peg placement will call gain today [phone] brock gave her update called HCP odilon gomes to discus plan of [phone] home phone [phone] is odilon gomes cell phone HCP wants everything done will consult GI for peg evaluation MBS done shows trace silent aspiration on thickened liquids reinsert NG tube today repeat cxr
--- NOTE | 2018-11-09 11:38 | PN ---
Progress Note, Physician History of Present Illness: Pt seen and examined at bedside. He tolerated HD yesterday. He is confused. - Current Medication List Current Medications: Active Medications Acetaminophen (Tylenol Oral Solution -) 650 mg NGT Q6H PRN PRN Reason: FEVER Last Admin: 11/08/18 21:35 Dose: 650 mg Collagenase (Santyl -) 1 applic TP DAILY [facility]; Protocol Last Admin: 11/09/18 09:55 Dose: 1 applic Ceftaroline Fosamil 200 mg/ (Dextrose) 100 mls @ 200 mls/hr IVPB BID [facility]; Protocol Last Admin: 11/09/18 09:55 Dose: 200 mls/hr Daptomycin 760 mg/ Sodium (Chloride) 100 mls @ 200 mls/hr IVPB Q48H [facility]; Protocol Last Admin: 11/08/18 15:54 Dose: 200 mls/hr Pantoprazole Sodium (Protonix Iv) 40 mg IVPUSH DAILY [facility] Last Admin: 11/09/18 09:55 Dose: 40 mg Warfarin Sodium (Coumadin -) 5 mg PO DAILY@1800 [facility] Last Admin: 11/08/18 18:43 Dose: 5 mg - Objective Vital Signs: Vital Signs Temperature 99.6 F 11/09/18 07:40 Pulse Rate 94 H 11/09/18 10:22 Respiratory Rate 20 11/09/18 07:40 Blood Pressure 112/48 L 11/09/18 10:22 O2 Sat by Pulse Oximetry (%) 92 L 11/08/18 20:16 Constitutional: Yes: Calm Eyes: Yes: Conjunctiva Clear HENT: Yes: Atraumatic Neck: Yes: Supple Cardiovascular: Yes: S1, S2 Respiratory: Yes: On Venti-Mask Gastrointestinal: Yes: Normal Bowel Sounds, Soft Genitourinary: Yes: Incontinence Edema: Yes Edema: LLE: Trace, RLE: Trace Wound/Incision: Yes: Dressing Dry and Intact Neurological: Yes: Confusion Labs: CBC, BMP 11/08/18 06:50 11/09/18 06:00 INR, PTT INR 2.13 (0.83-1.09) H 11/09/18 06:00 Problem List - Problems (1) Acute hypoxemic respiratory failure Code(s): J96.01 - ACUTE RESPIRATORY FAILURE WITH HYPOXIA (2) ESRD (end stage renal disease) Code(s): N18.6 - END STAGE RENAL DISEASE (3) Sepsis Code(s): A41.9 - SEPSIS, UNSPECIFIED ORGANISM Qualifiers: Sepsis type: sepsis due to unspecified organism Qualified Code(s): A41.9 - Sepsis, unspecified organism Assessment/Plan Current Medications Generic Name Dose Route Start Last Admin Trade Name Freq PRN Reason Stop Dose Admin Acetaminophen 650 mg 11/08/18 20:31 11/08/18 21:35 Tylenol Oral Solution - NGT 650 mg Q6H PRN Administration FEVER Collagenase 1 applic 11/07/18 10:00 11/09/18 09:55 Santyl - TP 1 applic DAILY [facility] Administration Protocol Ceftaroline Fosamil 200 mg/ 100 mls @ 200 mls/hr 11/07/18 10:00 11/09/18 09: 55 Dextrose IVPB 200 mls/hr BID [facility] Administration Protocol Daptomycin 760 mg/ Sodium 100 mls @ 200 mls/hr 11/08/18 13:00 11/08/18 15:54 Chloride IVPB 200 mls/hr Q48H [facility] Administration Protocol Pantoprazole Sodium 40 mg 11/07/18 10:00 11/09/18 09:55 Protonix Iv IVPUSH 40 mg DAILY [facility] Administration Warfarin Sodium 5 mg 11/07/18 18:00 11/08/18 18:43 Coumadin - PO 5 mg DAILY@1800 [facility] Administration Impression 1. ESRD 2. acute rep failure 3. DM 4. hyperlipidemia 5. HTN 6. gout 7. proteinuria 8. hypotension/shock 9. sepsis 10. bacteremia Plan - HD in am - abx per ID - follow up repeat cultures - discussed with medical team - blood cultures remain positive
--- NOTE | 2018-11-09 11:50 | PN ---
Progress Note (short form) - Note Progress Note: Tolerated HD 2. Per Renal note, he will need HD 11/10. Patient still has positive blood cultures. Will need shiley in AM followed by HD then removal of catheter. Vascular Surgery still following.
--- NOTE | 2018-11-09 13:18 | PN ---
Progress Note, Physician Chief Complaint: AWAKE IN BED LETHARGIC NO ACUTE DISTRESS DENIES PAIN AFEBRILE REPEAT BC (11/09) PENDING CXR L LUNG INFILTRATE ATELECTASIS R LUNG FIELD - Current Medication List Current Medications: Active Medications Acetaminophen (Tylenol Oral Solution -) 650 mg NGT Q6H PRN PRN Reason: FEVER Last Admin: 11/08/18 21:35 Dose: 650 mg Collagenase (Santyl -) 1 applic TP DAILY [facility]; Protocol Last Admin: 11/09/18 09:55 Dose: 1 applic Epoetin Jose (Procrit -) 10,000 unit IVPUSH ONCE ONE Stop: 11/10/18 11:39 Ceftaroline Fosamil 200 mg/ (Dextrose) 100 mls @ 200 mls/hr IVPB BID [facility]; Protocol Last Admin: 11/09/18 09:55 Dose: 200 mls/hr Daptomycin 760 mg/ Sodium (Chloride) 100 mls @ 200 mls/hr IVPB Q48H [facility]; Protocol Last Admin: 11/08/18 15:54 Dose: 200 mls/hr Sodium Chloride (Normal Saline -) 250 mls @ 3,000 mls/hr IV PRN PRN PRN Reason: Hypotension during Dialysis Stop: 11/10/18 11:38 Pantoprazole Sodium (Protonix Iv) 40 mg IVPUSH DAILY [facility] Last Admin: 11/09/18 09:55 Dose: 40 mg Warfarin Sodium (Coumadin -) 5 mg PO DAILY@1800 [facility] Last Admin: 11/08/18 18:43 Dose: 5 mg - Objective Vital Signs: Vital Signs Temperature 99.6 F 11/09/18 07:40 Pulse Rate 94 H 11/09/18 10:22 Respiratory Rate 20 11/09/18 07:40 Blood Pressure 112/48 L 11/09/18 10:22 O2 Sat by Pulse Oximetry (%) 92 L 11/08/18 20:16 Constitutional: Yes: No Distress Eyes: Yes: Conjunctiva Clear Cardiovascular: Yes: Regular Rate and Rhythm, S1, S2 Respiratory: Yes: Diminished Gastrointestinal: Yes: Normal Bowel Sounds, Soft. No: Tenderness Edema: Yes Labs: CBC, BMP 11/08/18 06:50 11/09/18 06:00 INR, PTT INR 2.13 (0.83-1.09) H 02/15/19 06:00 Assessment/Plan SEPSIS/ SEPTIC SHOCK OFF PRESSORS STAPH BACTEREMIA MRSA ? FOOT SOURCE ? CATHETER CATHETER REMOVED RESP FAILURE S/P EXTUBATION ACUTE EXACERBATION COPD ? L PNEUMONIA COAGULOPATHY NON HEALING FOOT ULCERS REPEAT BC REMAIN POSITIVE CONTINUE DAPTOMYCIN 8MG/KG + CEFTAROLINE NOT A CANDIDATE FOR ALEJO PER CARDIOLOGY
--- NOTE | 2018-11-09 15:09 | PN ---
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 NGT feedings once placement confirmed. Plan is for PEG insertion. Nursing spoke with family and pt was competant and verbal in NH before hospital admission. Per ID-SEPSIS/ SEPTIC SHOCK OFF PRESSORS STAPH BACTEREMIA MRSA ? FOOT SOURCE ? CATHETER CATHETER REMOVED RESP FAILURE S/P EXTUBATION ACUTE EXACERBATION COPD ? L PNEUMONIA COAGULOPATHY NON HEALING FOOT ULCERS Etiology of change in functional communication? Encephalopathy? CT head done upon admission.
[2018-11-09] MEDS: DEXTROSE 5%-0.45% SALINE 1,000 ML IV SCH (15:29)
--- NOTE | 2018-11-09 21:00 | CONSULT ---
Consult - text type - Consultation Consultation Note: NEUROLOGY CONSULTATION is greatly appreciated: This 73 yo RH man is a [facility] resident with h/o HTN, DM, Chol, PVD, "CVA" and ESRD on HD. Admitted with presumed infection after Nausea, vomiting, fever, abdominal pain and possible tachycardia. Treated with antibiotics, aggressive hydration, HD but remains confused and lethargic. WBC remains> 10 in spite of long-term antibiotics. CT of head (reviewed, not yet reported): Moderate, diffuse atrophy. Ex vacuo hydrocephalus. Diffuse periventricular microvascular changes. TULIO: Neck supple. -Kernig's. Right foot appears swollen, ?necrotic? and bandaged. L heal bandaged. Cor reg. No bruits. NEURO: Awake but lethargic. Hypophonic and dysarthric. Ox "senior living", "[facility]" April 2010. Obrien. Recalls 0 of 3 @ 3 mins. + Glabella. CN II-XII: Full cummings. Mild Left facial. Decreased tongue MICKEY's and gag Motor: Cannot elevate arms or legs against gravity. Grasps 4+/5 R and 4-/5 left Ankle dorsiflexion 3/5 b/l. Areflexic. Reduced vibration below the knees. IMP: 1. Moderately severe B/L cerebral dysfunction (OMS, Chronic features) 2. 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 Toxic-metabolic encephalopathy suggestive of ongoing infection. Consider pneumonia, gangrene or osteomyelitis of right foot, SBE, Fistula infection) SUGGEST: Check B12, TSH, T4, RPR, ESR, CRP, CK, ammonia level Bone scan or xrays Right foot Reculture. Bedside PT vs decubitae. High protein feeds. Prognosis guarded. Thank you very much, Perico Starks MD
[2018-11-09] MEDS: WARFARIN NA 5 MG TABLET (UD) PO SCH (21:17)
[2018-11-09] MEDS: THIAMINE HCL 200 MG/2 ML VIAL IVPB SCH (22:03)
[2018-11-10] MEDS: THIAMINE HCL 200 MG/2 ML VIAL IVPB SCH ×3 (06:27→21:06)
[2018-11-10] MEDS ORDERED: SODIUM CHLORIDE 250 ML IV PRN (07:31)
[2018-11-10 09:38] LABS: BASO % 1.3 % (0-2.0); EOS % 2.5 % (0-4.5); HEMATOCRIT 23.9 % (35.4-49); HEMOGLOBIN 7.8 GM/dL (11.7-16.9); LYMPH % 18.5 % (8-40); MCH 30.2 pg (25.7-33.7); MCHC 32.6 g/dl (32.0-35.9); MEAN CELL VOLUME 92.5 fl (80-96); MONO % 7.1 % (3.8-10.2); NEUT % 70.6 % (42.8-82.8); PLATELET COUNT 322 K/MM3 (134-434); RBC 2.58 M/mm3 (4.00-5.60); RDW 16.1 % (11.9-15.9); WHITE BLOOD COUNT 8.2 K/mm3 (4.0-10.0)
[2018-11-10] MEDS ORDERED: EPOETIN ALFA 10,000 UNIT/1 ML VIAL IVPUSH ONE (10:00)
--- NOTE | 2018-11-10 10:48 | CON.GI ---
Consult Consult Specialty:: GI - History of Present Illness History of Present Illness: 73 y/o Male with PMH of ESRD was admitted with Sepsis. The patient presently is lethargic and was started on NGT feeding. The patient is combative and has pulled out the NGT several times . I was asked to evaluate patient for PEG insertion. 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 Medical History Cardio/Vascular: Yes: HTN, Hyperlipdemia Pulmonary: Yes: COPD Renal/: Yes: Renal Failure, Hemodialysis Endocrine: Yes: Diabetes Mellitus - Alcohol/Substance Use Hx Alcohol Use: No - Smoking History Smoking history: Never smoked Have you smoked in the past 12 months: No - Social History Usual Living Arrangement: Jail Home Medications - Allergies Allergies/Adverse Reactions: Allergies Allergy/AdvReac Type Severity Reaction Status Date / Time watermelon Allergy Unknown Verified 10/29/18 06:33 melon Allergy Verified 10/29/18 06:33 No Known Drug Allergies Allergy Verified 10/29/18 06:34 - Home Medications Home Medications: Ambulatory Orders Albuterol 2.5/Ipratropium 0.5 [Duoneb -] 1 amp NEB Q6H PRN #0 amp 07/12/17 Allopurinol [Zyloprim -] 100 mg PO DAILY tablet 07/12/17 Atorvastatin Ca [Lipitor] 20 mg PO HS tablet 07/12/17 Clopidogrel Bisulfate [Plavix -] 75 mg PO DAILY tablet 07/12/17 Collagenase Clostridium Hist. [Santyl -] 250 unit TP DAILY 08/31/18 Lisinopril 10 mg PO DAILY 08/31/18 Collagenase Clostridium Hist. [Santyl -] 1 applic TP DAILY tube 09/06/18 Albuterol Sulfate [Proair Hfa] 2 puff IH Q6H PRN 10/29/18 Escitalopram Oxalate [Lexapro -] 10 mg PO DAILY 10/29/18 Folic Acid/Vit B Complex and C [Dialyvite Tablet] 1 each PO DAILY 10/29/18 Ibuprofen [Advil -] 400 mg PO DAILY 10/29/18 Insulin Lispro [Humalog] 0 unit SQ ACHS 10/29/18 Midodrine HCl 10 mg PO MOWEFR 10/29/18 Sevelamer Carbonate [Renvela] 1,600 mg PO TID 10/29/18 Tamsulosin HCl [Flomax] 0.4 mg PO HS 10/29/18 Warfarin Sodium [Coumadin] 5.5 mg PO HS 10/29/18 Zinc Oxide 20% Topical Oint 454 gm NR BID 10/29/18 Physical Exam-GI Vital Signs: Vital Signs Temperature 97.8 F 11/10/18 06:31 Pulse Rate 91 H 11/10/18 10:30 Respiratory Rate 20 11/10/18 10:30 Blood Pressure 99/55 L 11/10/18 10:30 O2 Sat by Pulse Oximetry (%) 98 11/09/18 21:00 Constitutional: Yes: Obese Eyes: No: Sclera Icterus HENT: Yes: Atraumatic Neck: Yes: Supple Cardiovascular: Yes: Regular Rate and Rhythm Respiratory: Yes: CTA Bilaterally Gastrointestinal Inspection: No: Distention ...Auscultate: Yes: Normoactive Bowel Sounds ...Palpate: Yes: Soft. No: Firm/Rigid, Guarding, Hepatomegaly, Tenderness, Tenderness, Epigastium Labs: CBC, BMP 11/10/18 07:00 INR, PTT INR 2.13 (0.83-1.09) H 11/09/18 06:00 Current Medications Generic Name Dose Route Start Last Admin Trade Name Freq PRN Reason Stop Dose Admin Acetaminophen 650 mg 11/08/18 20:31 11/08/18 21:35 Tylenol Oral Solution - NGT 650 mg Q6H PRN Administration FEVER Collagenase 1 applic 11/07/18 10:00 11/09/18 09:55 Santyl - TP 1 applic DAILY [facility] Administration Protocol Ceftaroline Fosamil 200 mg/ 100 mls @ 200 mls/hr 11/07/18 10:00 11/09/18 21: 19 Dextrose IVPB 200 mls/hr BID [facility] Administration Protocol Daptomycin 760 mg/ Sodium 100 mls @ 200 mls/hr 11/08/18 13:00 11/08/18 15:54 Chloride IVPB 200 mls/hr Q48H [facility] Administration Protocol Sodium Chloride 250 mls @ 3,000 mls/hr 11/10/18 07:31 Normal Saline - IV 11/10/18 15:00 PRN PRN Hypotension during Dialysis Dextrose/Sodium Chloride 1,000 mls @ 42 mls/hr 11/09/18 14:00 11/09/18 15:29 D5-1/2ns - IV 42 mls/hr ASDIR [facility] Administration Pantoprazole Sodium 40 mg 11/07/18 10:00 11/09/18 09:55 Protonix Iv IVPUSH 40 mg DAILY [facility] Administration Thiamine HCl 200 mg 11/09/18 22:00 11/10/18 06:27 Vitamin B1 Injection - IVPB 11/13/18 22:00 200 mg TID [facility] Administration Warfarin Sodium 5 mg 11/07/18 18:00 11/09/18 21:17 Coumadin - PO Not Given DAILY@1800 [facility] Home Medications Medication Instructions Recorded Albuterol 2.5/Ipratropium 0.5 1 amp NEB Q6H PRN #0 amp 07/12/17 [Duoneb -] Allopurinol [Zyloprim -] 100 mg PO DAILY tablet 07/12/17 Atorvastatin Ca [Lipitor] 20 mg PO HS tablet 07/12/17 Clopidogrel Bisulfate [Plavix -] 75 mg PO DAILY tablet 07/12/17 Collagenase Clostridium Hist. 250 unit TP DAILY 08/31/18 [Santyl -] Lisinopril 10 mg PO DAILY 08/31/18 Collagenase Clostridium Hist. 1 applic TP DAILY tube 09/06/18 [Santyl -] Albuterol Sulfate [Proair Hfa] 2 puff IH Q6H PRN 10/29/18 Escitalopram Oxalate [Lexapro -] 10 mg PO DAILY 10/29/18 Folic Acid/Vit B Complex and C 1 each PO DAILY 10/29/18 [Dialyvite Tablet] Ibuprofen [Advil -] 400 mg PO DAILY 10/29/18 Insulin Lispro [Humalog] 0 unit SQ ACHS 10/29/18 Midodrine HCl 10 mg PO MOWEFR 10/29/18 Sevelamer Carbonate [Renvela] 1,600 mg PO TID 10/29/18 Tamsulosin HCl [Flomax] 0.4 mg PO HS 10/29/18 Warfarin Sodium [Coumadin] 5.5 mg PO HS 10/29/18 Zinc Oxide 20% Topical Oint 454 gm NR BID 10/29/18 Problem List - Problems (1) Feeding difficulty Assessment/Plan: patient will be poor candidate for NGT feeding because of patient repeatedly pulls out the NGT. The patient also is high risk of pulling out the G-tube even with an abdominal binder. Will need to discuss with family. Code(s): R63.3 - FEEDING DIFFICULTIES (2) Anemia Code(s): D64.9 - ANEMIA, UNSPECIFIED
[2018-11-10 10:53] LABS: ALK PHOS 139 U/L (45-117); ANION GAP 9 MMOL/L (8-16); BILIRUBIN,TOTAL 0.4 mg/dL (0.2-1); BLOOD UREA NITROGEN 48 mg/dL (7-18); CALCIUM 7.7 mg/dL (8.5-10.1); CHLORIDE 102 mmol/L (98-107); CO2 29 mmol/L (21-32); CREATININE 5.9 mg/dL (0.55-1.3); GLUCOSE,RANDOM 89 mg/dL (74-106); POTASSIUM 4.3 mmol/L (3.5-5.1); SGOT/AST 15 U/L (15-37); SGPT/ALT 20 U/L (13-61); SODIUM 140 mmol/L (136-145); TOT PROT 6.7 g/dl (6.4-8.2)
[2018-11-10] MEDS: CEFTAROLINE FOSAMIL ACETATE 200 MG in DEXTROSE 5%-WATER - 100 ML IVPB SCH ×2 (11:13→22:05)
[2018-11-10] MEDS: PANTOPRAZOLE SODIUM 40 MG VIAL IVPUSH SCH (11:13)
[2018-11-10] MEDS: COLLAGENASE CLOSTRIDIUM HIST. 30 GRAMS TUBE TP SCH (11:14)
[2018-11-10] MEDS ORDERED: PT OWN MED DRAWER 7, Y5N ONE (11:17)
[2018-11-10] MEDS: SODIUM CHLORIDE IVPB SCH (13:22)
[2018-11-10] MEDS: DAPTOMYCIN IVPB SCH (13:22)
--- NOTE | 2018-11-10 13:40 | PN ---
Progress Note, Physician History of Present Illness: Pt seen and examined at bedside. He tolerated HD. He appears more awake and interactive today. - Current Medication List Current Medications: Active Medications Acetaminophen (Tylenol Oral Solution -) 650 mg NGT Q6H PRN PRN Reason: FEVER Last Admin: 11/08/18 21:35 Dose: 650 mg Collagenase (Santyl -) 1 applic TP DAILY [facility]; Protocol Last Admin: 11/10/18 11:14 Dose: 1 applic Ceftaroline Fosamil 200 mg/ (Dextrose) 100 mls @ 200 mls/hr IVPB BID [facility]; Protocol Last Admin: 11/10/18 11:13 Dose: 200 mls/hr Daptomycin 760 mg/ Sodium (Chloride) 100 mls @ 200 mls/hr IVPB Q48H [facility]; Protocol Last Admin: 11/10/18 13:22 Dose: 200 mls/hr Sodium Chloride (Normal Saline -) 250 mls @ 3,000 mls/hr IV PRN PRN PRN Reason: Hypotension during Dialysis Stop: 11/10/18 15:00 Dextrose/Sodium Chloride (D5-1/2ns -) 1,000 mls @ 42 mls/hr IV ASDIR [facility] Last Admin: 11/09/18 15:29 Dose: 42 mls/hr Pantoprazole Sodium (Protonix Iv) 40 mg IVPUSH DAILY [facility] Last Admin: 11/10/18 11:13 Dose: 40 mg Thiamine HCl (Vitamin B1 Injection -) 200 mg IVPB TID [facility] Stop: 11/13/18 22:00 Last Admin: 11/10/18 06:27 Dose: 200 mg Warfarin Sodium (Coumadin -) 5 mg PO DAILY@1800 [facility] Last Admin: 11/09/18 21:17 Dose: Not Given - Objective Vital Signs: Vital Signs Temperature 97.8 F 11/10/18 06:31 Pulse Rate 88 11/10/18 11:15 Respiratory Rate 18 11/10/18 11:15 Blood Pressure 117/60 11/10/18 11:15 O2 Sat by Pulse Oximetry (%) 98 11/09/18 21:00 Constitutional: Yes: Calm Eyes: Yes: Conjunctiva Clear HENT: Yes: Atraumatic Neck: Yes: Supple Cardiovascular: Yes: S1, S2 Respiratory: Yes: On Nasal O2 Gastrointestinal: Yes: Soft Genitourinary: Yes: Incontinence Musculoskeletal: Yes: Muscle Weakness Edema: No Neurological: Yes: Confusion Labs: CBC, BMP 11/10/18 07:00 11/10/18 09:16 INR, PTT INR 2.13 (0.83-1.09) H 11/09/18 06:00 Problem List - Problems (1) Acute hypoxemic respiratory failure Code(s): J96.01 - ACUTE RESPIRATORY FAILURE WITH HYPOXIA (2) ESRD (end stage renal disease) Code(s): N18.6 - END STAGE RENAL DISEASE (3) Sepsis Code(s): A41.9 - SEPSIS, UNSPECIFIED ORGANISM Qualifiers: Sepsis type: sepsis due to unspecified organism Qualified Code(s): A41.9 - Sepsis, unspecified organism Assessment/Plan Current Medications Generic Name Dose Route Start Last Admin Trade Name Freq PRN Reason Stop Dose Admin Acetaminophen 650 mg 11/08/18 20:31 11/08/18 21:35 Tylenol Oral Solution - NGT 650 mg Q6H PRN Administration FEVER Collagenase 1 applic 11/07/18 10:00 11/10/18 11:14 Santyl - TP 1 applic DAILY [facility] Administration Protocol Ceftaroline Fosamil 200 mg/ 100 mls @ 200 mls/hr 11/07/18 10:00 11/10/18 11: 13 Dextrose IVPB 200 mls/hr BID [facility] Administration Protocol Daptomycin 760 mg/ Sodium 100 mls @ 200 mls/hr 11/08/18 13:00 11/10/18 13:22 Chloride IVPB 200 mls/hr Q48H [facility] Administration Protocol Sodium Chloride 250 mls @ 3,000 mls/hr 11/10/18 07:31 Normal Saline - IV 11/10/18 15:00 PRN PRN Hypotension during Dialysis Dextrose/Sodium Chloride 1,000 mls @ 42 mls/hr 11/09/18 14:00 11/09/18 15:29 D5-1/2ns - IV 42 mls/hr ASDIR [facility] Administration Pantoprazole Sodium 40 mg 11/07/18 10:00 11/10/18 11:13 Protonix Iv IVPUSH 40 mg DAILY [facility] Administration Thiamine HCl 200 mg 11/09/18 22:00 11/10/18 06:27 Vitamin B1 Injection - IVPB 11/13/18 22:00 200 mg TID [facility] Administration Warfarin Sodium 5 mg 11/07/18 18:00 02/15/19 21:17 Coumadin - PO Not Given DAILY@1800 [facility] Microbiology 11/09/18 07:00 Blood - Peripheral Venous Blood Culture - Preliminary NO GROWTH OBTAINED AFTER 24 HOURS, INCUBATION TO CONTINUE FOR 4 DAYS. 11/09/18 06:00 Blood - Peripheral Venous Blood Culture - Preliminary NO GROWTH OBTAINED AFTER 24 HOURS, INCUBATION TO CONTINUE FOR 4 DAYS. Impression 1. ESRD 2. acute rep failure 3. DM 4. hyperlipidemia 5. HTN 6. gout 7. proteinuria 8. hypotension/shock 9. sepsis 10. bacteremia Plan - HD today - spoke to vascular to remove shiley - will evaluate for HD on Monday - last culture is negative - ID follow up - will follow
--- NOTE | 2018-11-10 14:22 | PN ---
Progress Note (short form) - Note Progress Note: PULMONARY Denies shortness of breath, chest pain or cough. Vital Signs Period Temp Pulse Resp BP Sys/Zamorano Pulse Ox Last 24 Hr 97.8 F-98.8 F 78-95 18-20 78-134/47-79 98 Gen: NAD at rest Heart: RRR Lung: decreased breath sounds at the bases Abd: soft, nontender Ext: no edema CBC, BMP 11/10/18 07:00 11/10/18 09:16 Active Medications Acetaminophen (Tylenol Oral Solution -) 650 mg NGT Q6H PRN PRN Reason: FEVER Last Admin: 11/08/18 21:35 Dose: 650 mg Collagenase (Santyl -) 1 applic TP DAILY [facility]; Protocol Last Admin: 11/10/18 11:14 Dose: 1 applic Ceftaroline Fosamil 200 mg/ (Dextrose) 100 mls @ 200 mls/hr IVPB BID [facility]; Protocol Last Admin: 11/10/18 11:13 Dose: 200 mls/hr Daptomycin 760 mg/ Sodium (Chloride) 100 mls @ 200 mls/hr IVPB Q48H [facility]; Protocol Last Admin: 11/10/18 13:22 Dose: 200 mls/hr Sodium Chloride (Normal Saline -) 250 mls @ 3,000 mls/hr IV PRN PRN PRN Reason: Hypotension during Dialysis Stop: 11/10/18 15:00 Dextrose/Sodium Chloride (D5-1/2ns -) 1,000 mls @ 42 mls/hr IV ASDIR [facility] Last Admin: 11/09/18 15:29 Dose: 42 mls/hr Pantoprazole Sodium (Protonix Iv) 40 mg IVPUSH DAILY [facility] Last Admin: 11/10/18 11:13 Dose: 40 mg Thiamine HCl (Vitamin B1 Injection -) 200 mg IVPB TID [facility] Stop: 11/13/18 22:00 Last Admin: 11/10/18 06:27 Dose: 200 mg Warfarin Sodium (Coumadin -) 5 mg PO DAILY@1800 [facility] Last Admin: 11/09/18 21:17 Dose: Not Given A/P s/p Acute Hypoxic Respiratory Failure Pneumonia Suspected Diabetic Foot Ulcer Infection MRSA Bacteremia S/P Septic Shock ESRD on HD Lactic Acidosis +Troponins likely Demand Ischemia Supratherapeutic INR Atrial Fibrillation h/o CVA Severe Mitral Regurgitation HTN DM COPD - continue antibiotics per ID - local wound care - continue anticoagulation - rate control - HD per renal - O2 as needed to maintain SpO2 >90% - aspiration precautions - DVT/GI prophylaxis
[2018-11-10] MEDS: DEXTROSE 5%-0.45% SALINE 1,000 ML IV SCH (14:35)
--- NOTE | 2018-11-10 14:43 | PN ---
Progress Note (short form) - Note Progress Note: awake and alert no complaints Vital Signs Period Temp Pulse Resp BP Sys/Zamorano Pulse Ox Last 24 Hr 97.8 F-98.8 F 78-95 18-20 78-134/47-79 98 cor-rrr llungs decreased bs at bases abd soft,nt ext RLE with dressing intact CBC, BMP 11/10/18 07:00 11/10/18 09:16 Microbiology 11/09/18 07:00 Blood - Peripheral Venous Blood Culture - Preliminary NO GROWTH OBTAINED AFTER 24 HOURS, INCUBATION TO CONTINUE FOR 4 DAYS. 11/09/18 06:00 Blood - Peripheral Venous Blood Culture - Preliminary NO GROWTH OBTAINED AFTER 24 HOURS, INCUBATION TO CONTINUE FOR 4 DAYS. 11/05/18 05:40 Blood - Peripheral Venous Blood Culture - Final Presumptive Mrsa (Pbp2a Pos) 11/05/18 05:30 Blood - Peripheral Venous Blood Culture - Final Mr S Aureus 11/03/18 05:05 Blood - Peripheral Venous Blood Culture - Final Mr S Aureus 11/03/18 05:05 Blood - Peripheral Venous Blood Culture - Final Mr S Aureus 10/30/18 15:00 Sputum - Endotrachea Suction/Ventilator Gram Stain - Final 10/30/18 15:00 Sputum - Endotrachea Suction/Ventilator Sputum Culture - Final Escherichia Coli Esbl [employer] Mr S Aureus 11/01/18 05:45 Blood - Peripheral Venous Blood Culture - Final Mr S Aureus 11/01/18 05:30 Blood - Peripheral Venous Blood Culture - Final Mr S Aureus 10/29/18 06:50 Blood - Peripheral Venous Blood Culture - Final Mr S Aureus 10/29/18 06:50 Blood - Peripheral Venous Blood Culture - Final Mr S Aureus 10/31/18 12:43 Catheter Site Gram Stain - Final 10/31/18 12:43 Catheter Site Wound Culture - Final Mr S Aureus 10/30/18 13:00 Blood - Pre-Dialysis Blood Culture - Final Mr S Aureus 10/30/18 10:40 Blood - Peripheral Venous Blood Culture - Final Mr S Aureus 10/30/18 10:25 Blood - Peripheral Venous Blood Culture - Final Mr S Aureus 10/29/18 08:00 Urine - Urine Clean Catch Urine Culture - Final NO GROWTH OBTAINED Current Medications Acetaminophen (Tylenol Oral Solution -) 650 mg NGT Q6H PRN PRN Reason: FEVER Last Admin: 11/08/18 21:35 Dose: 650 mg Collagenase (Santyl -) 1 applic TP DAILY [facility]; Protocol Last Admin: 11/10/18 11:14 Dose: 1 applic Ceftaroline Fosamil 200 mg/ (Dextrose) 100 mls @ 200 mls/hr IVPB BID [facility]; Protocol Last Admin: 11/10/18 11:13 Dose: 200 mls/hr Daptomycin 760 mg/ Sodium (Chloride) 100 mls @ 200 mls/hr IVPB Q48H [facility]; Protocol Last Admin: 11/10/18 13:22 Dose: 200 mls/hr Sodium Chloride (Normal Saline -) 250 mls @ 3,000 mls/hr IV PRN PRN PRN Reason: Hypotension during Dialysis Stop: 11/10/18 15:00 Dextrose/Sodium Chloride (D5-1/2ns -) 1,000 mls @ 42 mls/hr IV ASDIR [facility] Last Admin: 11/10/18 14:35 Dose: 42 mls/hr Pantoprazole Sodium (Protonix Iv) 40 mg IVPUSH DAILY [facility] Last Admin: 11/10/18 11:13 Dose: 40 mg Thiamine HCl (Vitamin B1 Injection -) 200 mg IVPB TID [facility] Stop: 11/13/18 22:00 Last Admin: 11/10/18 14:35 Dose: 200 mg Warfarin Sodium (Coumadin -) 5 mg PO DAILY@1800 [facility] Last Admin: 11/09/18 21:17 Dose: Not Given a/p persistent MRSA bacteremia resp failure s/p extubation esrd/hd not a candidate for ALEJO continue daptomycin and ceftaroline f/u repeat cultures
[2018-11-10] MEDS ORDERED: METOPROLOL TARTRATE 5 MG/5 ML VIAL IVPUSH PRN (16:58)
--- NOTE | 2018-11-10 17:06 | PN ---
Progress Note, Physician Chief Complaint: MRSA Bacteremia ESRD Acute Respiratory Failure, s/p extubation History of Present Illness: Previous notes and events reviewed awake and alert NAD patient removed NGT during the night, family wishes for PEG tube placement - Current Medication List Current Medications: Active Medications Acetaminophen (Tylenol Oral Solution -) 650 mg NGT Q6H PRN PRN Reason: FEVER Last Admin: 11/08/18 21:35 Dose: 650 mg Collagenase (Santyl -) 1 applic TP DAILY [facility]; Protocol Last Admin: 11/10/18 11:14 Dose: 1 applic Heparin Sodium (Porcine) (Heparin -) 5,000 unit SQ TID [facility] Ceftaroline Fosamil 200 mg/ (Dextrose) 100 mls @ 200 mls/hr IVPB BID [facility]; Protocol Last Admin: 11/10/18 11:13 Dose: 200 mls/hr Daptomycin 760 mg/ Sodium (Chloride) 100 mls @ 200 mls/hr IVPB Q48H [facility]; Protocol Last Admin: 11/10/18 13:22 Dose: 200 mls/hr Dextrose/Sodium Chloride (D5-1/2ns -) 1,000 mls @ 42 mls/hr IV ASDIR [facility] Last Admin: 11/10/18 14:35 Dose: 42 mls/hr Metoprolol Tartrate (Lopressor Injection -) 2.5 mg IVPUSH Q6H PRN PRN Reason: TACHYCARDIA Pantoprazole Sodium (Protonix Iv) 40 mg IVPUSH DAILY [facility] Last Admin: 11/10/18 11:13 Dose: 40 mg Thiamine HCl (Vitamin B1 Injection -) 200 mg IVPB TID [facility] Stop: 11/13/18 22:00 Last Admin: 11/10/18 14:35 Dose: 200 mg - Objective Vital Signs: Vital Signs Temperature 97.3 F L 11/10/18 14:44 Pulse Rate 93 H 11/10/18 14:44 Respiratory Rate 18 11/10/18 14:44 Blood Pressure 138/68 11/10/18 14:44 O2 Sat by Pulse Oximetry (%) 99 11/10/18 10:00 Constitutional: Yes: No Distress, Calm Eyes: Yes: Conjunctiva Clear Cardiovascular: Yes: Regular Rate and Rhythm Respiratory: Yes: Diminished, On Nasal O2 Gastrointestinal: Yes: Normal Bowel Sounds, Soft Genitourinary: Yes: Incontinence Musculoskeletal: Yes: Muscle Weakness Extremities: Yes: WNL Edema: No Neurological: Yes: Alert, Pre-Existing Deficit Psychiatric: Yes: Alert Labs: CBC, BMP 11/10/18 07:00 11/10/18 09:16 INR, PTT INR 2.13 (0.83-1.09) H 11/09/18 06:00 <Radha Robins - Last Filed: 11/10/18 18:24> - Current Medication List Current Medications: Active Medications Acetaminophen (Tylenol Oral Solution -) 650 mg NGT Q6H PRN PRN Reason: FEVER Last Admin: 11/08/18 21:35 Dose: 650 mg Collagenase (Santyl -) 1 applic TP DAILY [facility]; Protocol Last Admin: 11/10/18 11:14 Dose: 1 applic Heparin Sodium (Porcine) (Heparin -) 1,000 unit IVPUSH PRN PRN PRN Reason: Heparin Last Admin: 11/11/18 03:25 Dose: 1,000 unit Heparin Sodium (Porcine) (Heparin -) 5,000 unit IVPUSH PRN PRN PRN Reason: Heparin Ceftaroline Fosamil 200 mg/ (Dextrose) 100 mls @ 200 mls/hr IVPB BID [facility]; Protocol Last Admin: 11/10/18 22:05 Dose: 200 mls/hr Daptomycin 760 mg/ Sodium (Chloride) 100 mls @ 200 mls/hr IVPB Q48H [facility]; Protocol Last Admin: 11/10/18 13:22 Dose: 200 mls/hr Dextrose/Sodium Chloride (D5-1/2ns -) 1,000 mls @ 42 mls/hr IV ASDIR [facility] Last Admin: 11/10/18 14:35 Dose: 42 mls/hr Heparin Sodium (Porcine) 25, (000 unit/ Sodium Chloride) 500 mls @ 20 mls/hr IV TITR [facility]; Protocol Last Titration: 11/11/18 03:24 Dose: 1,100 unit/hr, 22 mls/hr Metoprolol Tartrate (Lopressor Injection -) 2.5 mg IVPUSH Q6H PRN PRN Reason: TACHYCARDIA Pantoprazole Sodium (Protonix Iv) 40 mg IVPUSH DAILY [facility] Last Admin: 11/10/18 11:13 Dose: 40 mg Thiamine HCl (Vitamin B1 Injection -) 200 mg IVPB TID [facility] Stop: 11/13/18 22:00 Last Admin: 11/11/18 05:14 Dose: 200 mg - Objective Vital Signs: Vital Signs Temperature 98.8 F 11/11/18 08:39 Pulse Rate 91 H 11/11/18 08:39 Respiratory Rate 18 11/11/18 08:39 Blood Pressure 116/59 L 11/11/18 08:39 O2 Sat by Pulse Oximetry (%) 99 11/10/18 22:00 Labs: CBC, BMP 11/11/18 07:20 INR, PTT INR 2.13 (0.83-1.09) H 11/09/18 06:00 <Filippo Clarke - Last Filed: 11/11/18 09:14> Problem List - Problems (1) A-fib Assessment/Plan: -since NPO unable to take coumadin PO -started on Heparin drip -Lopressor 2.5mg IVP q6h PRN for HR >110bpm -cardiology on board Code(s): I48.91 - UNSPECIFIED ATRIAL FIBRILLATION (2) Acute hypoxemic respiratory failure Assessment/Plan: -pulmonary on board -O2 via NC PRN for SOB -keep SpO2 >90% -aspiration precaution Code(s): J96.01 - ACUTE RESPIRATORY FAILURE WITH HYPOXIA (3) ESRD (end stage renal disease) Assessment/Plan: -renal on board -on HD -will monitor renal function, BUN/Cr 485.9 Code(s): N18.6 - END STAGE RENAL DISEASE (4) MRSA (methicillin resistant staph aureus) culture positive Assessment/Plan: -continue contact precaution -ID on board -continue IV ABT Code(s): Z22.322 - CARRIER OR SUSPECTED CARRIER OF METHICILLIN RESIS STAPH (5) Sepsis Assessment/Plan: -ID on board -continue IV ABT -BC from 11/09/18 neg Code(s): A41.9 - SEPSIS, UNSPECIFIED ORGANISM Qualifiers: Sepsis type: sepsis due to unspecified organism Qualified Code(s): A41.9 - Sepsis, unspecified organism (6) Anemia Assessment/Plan: -current Hg 7.8, repeat H/H in AM -if H/H warrants transfusion will speak with renal Code(s): D64.9 - ANEMIA, UNSPECIFIED <Radha Robins - Last Filed: 11/10/18 18:24> - Problems (1) Acute hypoxemic respiratory failure Code(s): J96.01 - ACUTE RESPIRATORY FAILURE WITH HYPOXIA (2) Anemia in chronic illness Code(s): D63.8 - ANEMIA IN OTHER CHRONIC DISEASES CLASSIFIED ELSEWHERE (3) Cellulitis of foot Code(s): L03.119 - CELLULITIS OF UNSPECIFIED PART OF LIMB (4) ESRD (end stage renal disease) Code(s): N18.6 - END STAGE RENAL DISEASE (5) Sepsis Code(s): A41.9 - SEPSIS, UNSPECIFIED ORGANISM Qualifiers: Sepsis type: sepsis due to unspecified organism Qualified Code(s): A41.9 - Sepsis, unspecified organism (6) Toxic metabolic encephalopathy Code(s): G92 - TOXIC ENCEPHALOPATHY <Filippo Clarke - Last Filed: 11/11/18 09:14> Assessment/Plan I HAVE SEEN AND EXAMINED THE PATIENT AND I AGREE WITH THE ABOVE NOTE <Filippo Clarke - Last Filed: 11/11/18 09:14>
[2018-11-10] MEDS ORDERED: HEPARIN NA (PORCINE) 5,000 UNITS/ML 1ML VIAL IVPUSH PRN (18:23)
[2018-11-10] MEDS: HEPARIN - 25,000 UNIT in SODIUM CHLORIDE 495 ML IV SCH (19:24)
[2018-11-10] MEDS ORDERED: HEPARIN NA (PORCINE) 5,000 UNITS/ML 1ML VIAL SQ SCH (22:00)
[2018-11-11] MEDS: HEPARIN NA (PORCINE) 5,000 UNITS/ML 1ML VIAL IVPUSH PRN (03:25)
[2018-11-11] MEDS: THIAMINE HCL 200 MG/2 ML VIAL IVPB SCH ×3 (05:14→21:15)
[2018-11-11 08:17] LABS: HEMATOCRIT 25.2 % (35.4-49); HEMOGLOBIN 8.4 GM/dL (11.7-16.9); MCH 31.1 pg (25.7-33.7); MCHC 33.4 g/dl (32.0-35.9); MEAN CELL VOLUME 93.1 fl (80-96); MEAN PLT VOLUME 8.8 fl (7.5-11.1); PLATELET COUNT 353 K/MM3 (134-434); RBC 2.71 M/mm3 (4.00-5.60); RDW 16.7 % (11.9-15.9); WHITE BLOOD COUNT 7.8 K/mm3 (4.0-10.0)
[2018-11-11] MEDS ORDERED: PT OWN MED DRAWER 7, Y5N ONE (08:22)
--- NOTE | 2018-11-11 09:15 | PN ---
Progress Note, Physician Chief Complaint: AWAKE ALERT DENIES ANY PAIN OR DISTRESS - Current Medication List Current Medications: Active Medications Acetaminophen (Tylenol Oral Solution -) 650 mg NGT Q6H PRN PRN Reason: FEVER Last Admin: 11/08/18 21:35 Dose: 650 mg Collagenase (Santyl -) 1 applic TP DAILY [facility]; Protocol Last Admin: 11/10/18 11:14 Dose: 1 applic Heparin Sodium (Porcine) (Heparin -) 1,000 unit IVPUSH PRN PRN PRN Reason: Heparin Last Admin: 11/11/18 03:25 Dose: 1,000 unit Heparin Sodium (Porcine) (Heparin -) 5,000 unit IVPUSH PRN PRN PRN Reason: Heparin Ceftaroline Fosamil 200 mg/ (Dextrose) 100 mls @ 200 mls/hr IVPB BID [facility]; Protocol Last Admin: 11/10/18 22:05 Dose: 200 mls/hr Daptomycin 760 mg/ Sodium (Chloride) 100 mls @ 200 mls/hr IVPB Q48H [facility]; Protocol Last Admin: 11/10/18 13:22 Dose: 200 mls/hr Dextrose/Sodium Chloride (D5-1/2ns -) 1,000 mls @ 42 mls/hr IV ASDIR [facility] Last Admin: 11/10/18 14:35 Dose: 42 mls/hr Heparin Sodium (Porcine) 25, (000 unit/ Sodium Chloride) 500 mls @ 20 mls/hr IV TITR [facility]; Protocol Last Titration: 11/11/18 03:24 Dose: 1,100 unit/hr, 22 mls/hr Metoprolol Tartrate (Lopressor Injection -) 2.5 mg IVPUSH Q6H PRN PRN Reason: TACHYCARDIA Pantoprazole Sodium (Protonix Iv) 40 mg IVPUSH DAILY [facility] Last Admin: 11/10/18 11:13 Dose: 40 mg Thiamine HCl (Vitamin B1 Injection -) 200 mg IVPB TID [facility] Stop: 11/13/18 22:00 Last Admin: 11/11/18 05:14 Dose: 200 mg - Objective Vital Signs: Vital Signs Temperature 98.8 F 11/11/18 08:39 Pulse Rate 91 H 11/11/18 08:39 Respiratory Rate 18 11/11/18 08:39 Blood Pressure 116/59 L 11/11/18 08:39 O2 Sat by Pulse Oximetry (%) 99 02/16/19 22:00 Constitutional: Yes: No Distress Eyes: Yes: WNL, Occular Prosthesis Neck: Yes: WNL Cardiovascular: Yes: Regular Rate and Rhythm Respiratory: Yes: WNL Gastrointestinal: Yes: Soft Genitourinary: Yes: Other Musculoskeletal: Yes: Muscle Weakness Extremities: Yes: Deformity Labs: CBC, BMP 11/11/18 07:20 INR, PTT INR 2.13 (0.83-1.09) H 11/09/18 06:00 Problem List - Problems (1) Acute hypoxemic respiratory failure Code(s): J96.01 - ACUTE RESPIRATORY FAILURE WITH HYPOXIA (2) Anemia in chronic illness Code(s): D63.8 - ANEMIA IN OTHER CHRONIC DISEASES CLASSIFIED ELSEWHERE (3) Cellulitis of foot Code(s): L03.119 - CELLULITIS OF UNSPECIFIED PART OF LIMB (4) ESRD (end stage renal disease) Code(s): N18.6 - END STAGE RENAL DISEASE (5) Sepsis Code(s): A41.9 - SEPSIS, UNSPECIFIED ORGANISM Qualifiers: Sepsis type: sepsis due to unspecified organism Qualified Code(s): A41.9 - Sepsis, unspecified organism (6) Toxic metabolic encephalopathy Code(s): G92 - TOXIC ENCEPHALOPATHY Assessment/Plan CONTINUE IV ABX ESRD ON HD ADVANCED DIRECTIVES NEED TO BE ADDRESSED WITH HCP PALLIATIVE CARE FOR DNR/DNI PATIENT IS CHRONICALLY ILL AND FREQUENTLY ADMITTED FOR SEPSIS/RENAL DISEASE/FTT WE NEED TO KNOW HOW FAMILY WANTS TO PROCEED IF PATIENT NEEDS TO BE RESUSCITATED. AT THIS HE IS A FULL CODE.
[2018-11-11 09:32] LABS: ALBUMIN 1.9 g/dl (3.4-5.0); ALK PHOS 127 U/L (45-117); ANION GAP 8 MMOL/L (8-16); BILIRUBIN,TOTAL 0.4 mg/dL (0.2-1); BLOOD UREA NITROGEN 23 mg/dL (7-18); CALCIUM 7.9 mg/dL (8.5-10.1); CHLORIDE 100 mmol/L (98-107); CO2 29 mmol/L (21-32); CREATININE 3.8 mg/dL (0.55-1.3); GLUCOSE,RANDOM 103 mg/dL (74-106); POTASSIUM 3.5 mmol/L (3.5-5.1); SGOT/AST 14 U/L (15-37); SGPT/ALT 10 U/L (13-61); SODIUM 138 mmol/L (136-145); TOT PROT 7.1 g/dl (6.4-8.2)
[2018-11-11] MEDS: PANTOPRAZOLE SODIUM 40 MG VIAL IVPUSH SCH (10:22)
[2018-11-11] MEDS: COLLAGENASE CLOSTRIDIUM HIST. 30 GRAMS TUBE TP SCH (10:22)
[2018-11-11] MEDS: CEFTAROLINE FOSAMIL ACETATE 200 MG in DEXTROSE 5%-WATER - 100 ML IVPB SCH ×2 (10:22→21:15)
--- NOTE | 2018-11-11 12:21 | PN ---
Progress Note (short form) - Note Progress Note: PULMONARY Denies shortness of breath, chest pain or cough. Vital Signs Period Temp Pulse Resp BP Sys/Zamorano Pulse Ox Last 24 Hr 97.3 F-98.9 F 88-101 18-20 116-155/52-68 99-99 Gen: NAD at rest Heart: RRR Lung: decreased breath sounds at the bases Abd: soft, nontender Ext: no edema CBC, BMP 11/11/18 07:20 11/11/18 07:20 Active Medications Acetaminophen (Tylenol Oral Solution -) 650 mg NGT Q6H PRN PRN Reason: FEVER Last Admin: 11/08/18 21:35 Dose: 650 mg Collagenase (Santyl -) 1 applic TP DAILY [facility]; Protocol Last Admin: 11/11/18 10:22 Dose: 1 applic Heparin Sodium (Porcine) (Heparin -) 1,000 unit IVPUSH PRN PRN PRN Reason: Heparin Last Admin: 11/11/18 03:25 Dose: 1,000 unit Heparin Sodium (Porcine) (Heparin -) 5,000 unit IVPUSH PRN PRN PRN Reason: Heparin Ceftaroline Fosamil 200 mg/ (Dextrose) 100 mls @ 200 mls/hr IVPB BID [facility]; Protocol Last Admin: 11/11/18 10:22 Dose: 200 mls/hr Daptomycin 760 mg/ Sodium (Chloride) 100 mls @ 200 mls/hr IVPB Q48H [facility]; Protocol Last Admin: 11/10/18 13:22 Dose: 200 mls/hr Dextrose/Sodium Chloride (D5-1/2ns -) 1,000 mls @ 42 mls/hr IV ASDIR [facility] Last Admin: 11/10/18 14:35 Dose: 42 mls/hr Heparin Sodium (Porcine) 25, (000 unit/ Sodium Chloride) 500 mls @ 20 mls/hr IV TITR [facility]; Protocol Last Titration: 11/11/18 03:24 Dose: 1,100 unit/hr, 22 mls/hr Metoprolol Tartrate (Lopressor Injection -) 2.5 mg IVPUSH Q6H PRN PRN Reason: TACHYCARDIA Pantoprazole Sodium (Protonix Iv) 40 mg IVPUSH DAILY [facility] Last Admin: 11/11/18 10:22 Dose: 40 mg Thiamine HCl (Vitamin B1 Injection -) 200 mg IVPB TID [facility] Stop: 11/13/18 22:00 Last Admin: 11/11/18 05:14 Dose: 200 mg A/P s/p Acute Hypoxic Respiratory Failure Pneumonia Suspected Diabetic Foot Ulcer Infection MRSA Bacteremia S/P Septic Shock ESRD on HD Lactic Acidosis +Troponins likely Demand Ischemia Supratherapeutic INR Atrial Fibrillation h/o CVA Severe Mitral Regurgitation HTN DM COPD - continue antibiotics per ID - local wound care - continue anticoagulation - rate control - HD per renal - O2 as needed to maintain SpO2 >90% - aspiration precautions - DVT/GI prophylaxis
--- NOTE | 2018-11-11 14:21 | PN ---
Progress Note, Physician History of Present Illness: Pt seen and examined at bedside. He is more awake and verbal. - Current Medication List Current Medications: Active Medications Acetaminophen (Tylenol Oral Solution -) 650 mg NGT Q6H PRN PRN Reason: FEVER Last Admin: 11/08/18 21:35 Dose: 650 mg Collagenase (Santyl -) 1 applic TP DAILY [facility]; Protocol Last Admin: 11/11/18 10:22 Dose: 1 applic Heparin Sodium (Porcine) (Heparin -) 1,000 unit IVPUSH PRN PRN PRN Reason: Heparin Last Admin: 11/11/18 03:25 Dose: 1,000 unit Heparin Sodium (Porcine) (Heparin -) 5,000 unit IVPUSH PRN PRN PRN Reason: Heparin Ceftaroline Fosamil 200 mg/ (Dextrose) 100 mls @ 200 mls/hr IVPB BID [facility]; Protocol Last Admin: 11/11/18 10:22 Dose: 200 mls/hr Daptomycin 760 mg/ Sodium (Chloride) 100 mls @ 200 mls/hr IVPB Q48H [facility]; Protocol Last Admin: 11/10/18 13:22 Dose: 200 mls/hr Dextrose/Sodium Chloride (D5-1/2ns -) 1,000 mls @ 42 mls/hr IV ASDIR [facility] Last Admin: 11/10/18 14:35 Dose: 42 mls/hr Heparin Sodium (Porcine) 25, (000 unit/ Sodium Chloride) 500 mls @ 20 mls/hr IV TITR [facility]; Protocol Last Titration: 11/11/18 03:24 Dose: 1,100 unit/hr, 22 mls/hr Metoprolol Tartrate (Lopressor Injection -) 2.5 mg IVPUSH Q6H PRN PRN Reason: TACHYCARDIA Pantoprazole Sodium (Protonix Iv) 40 mg IVPUSH DAILY [facility] Last Admin: 11/11/18 10:22 Dose: 40 mg Thiamine HCl (Vitamin B1 Injection -) 200 mg IVPB TID [facility] Stop: 11/13/18 22:00 Last Admin: 11/11/18 05:14 Dose: 200 mg - Objective Vital Signs: Vital Signs Temperature 98.8 F 11/11/18 08:39 Pulse Rate 91 H 11/11/18 08:39 Respiratory Rate 18 11/11/18 08:39 Blood Pressure 116/59 L 11/11/18 08:39 O2 Sat by Pulse Oximetry (%) 99 11/11/18 10:00 Constitutional: Yes: Calm Eyes: Yes: Conjunctiva Clear HENT: Yes: Atraumatic Cardiovascular: Yes: S1, S2 Respiratory: Yes: CTA Bilaterally Gastrointestinal: Yes: Normal Bowel Sounds, Soft Genitourinary: Yes: Incontinence Musculoskeletal: Yes: Muscle Weakness Edema: No Neurological: Yes: Confusion Labs: CBC, BMP 11/11/18 07:20 11/11/18 07:20 INR, PTT INR 2.13 (0.83-1.09) H 11/09/18 06:00 Problem List - Problems (1) Acute hypoxemic respiratory failure Code(s): J96.01 - ACUTE RESPIRATORY FAILURE WITH HYPOXIA (2) ESRD (end stage renal disease) Code(s): N18.6 - END STAGE RENAL DISEASE (3) Sepsis Code(s): A41.9 - SEPSIS, UNSPECIFIED ORGANISM Qualifiers: Sepsis type: sepsis due to unspecified organism Qualified Code(s): A41.9 - Sepsis, unspecified organism Assessment/Plan Current Medications Generic Name Dose Route Start Last Admin Trade Name Freq PRN Reason Stop Dose Admin Acetaminophen 650 mg 11/08/18 20:31 11/08/18 21:35 Tylenol Oral Solution - NGT 650 mg Q6H PRN Administration FEVER Collagenase 1 applic 11/07/18 10:00 11/11/18 10:22 Santyl - TP 1 applic DAILY [facility] Administration Protocol Heparin Sodium (Porcine) 1,000 unit 11/10/18 18:23 11/11/18 03:25 Heparin - IVPUSH 1,000 unit PRN PRN Administration Heparin Heparin Sodium (Porcine) 5,000 unit 11/10/18 18:23 Heparin - IVPUSH PRN PRN Heparin Ceftaroline Fosamil 200 mg/ 100 mls @ 200 mls/hr 11/07/18 10:00 11/11/18 10: 22 Dextrose IVPB 200 mls/hr BID [facility] Administration Protocol Daptomycin 760 mg/ Sodium 100 mls @ 200 mls/hr 11/08/18 13:00 11/10/18 13:22 Chloride IVPB 200 mls/hr Q48H [facility] Administration Protocol Dextrose/Sodium Chloride 1,000 mls @ 42 mls/hr 11/09/18 14:00 11/10/18 14:35 D5-1/2ns - IV 42 mls/hr ASDIR [facility] Administration Heparin Sodium (Porcine) 25, 500 mls @ 20 mls/hr 11/10/18 18:30 11/11/18 03: 24 000 unit/ Sodium Chloride IV 1,100 unit/hr TITR [facility] 22 mls/hr Titration Protocol 1,000 UNIT/HR Metoprolol Tartrate 2.5 mg 11/10/18 16:58 Lopressor Injection - IVPUSH Q6H PRN TACHYCARDIA Pantoprazole Sodium 40 mg 11/07/18 10:00 11/11/18 10:22 Protonix Iv IVPUSH 40 mg DAILY [facility] Administration Thiamine HCl 200 mg 11/09/18 22:00 11/11/18 05:14 Vitamin B1 Injection - IVPB 11/13/18 22:00 200 mg TID [facility] Administration Microbiology 11/09/18 07:00 Blood - Peripheral Venous Blood Culture - Preliminary NO GROWTH OBTAINED AFTER 48 HOURS, INCUBATION TO CONTINUE FOR 3 DAYS. 11/09/18 06:00 Blood - Peripheral Venous Blood Culture - Preliminary NO GROWTH OBTAINED AFTER 48 HOURS, INCUBATION TO CONTINUE FOR 3 DAYS. Impression 1. ESRD 2. acute rep failure 3. DM 4. hyperlipidemia 5. HTN 6. gout 7. proteinuria 8. hypotension/shock 9. sepsis 10. bacteremia Plan - next HD on Monday - cont to follow cultures - decrease rate of dextose - repeat speech and swallow - ID follow up - will follow
--- NOTE | 2018-11-11 14:29 | PN ---
Progress Note (short form) - Note Progress Note: awake and alert no complaints Vital Signs Period Temp Pulse Resp BP Sys/Zamorano Pulse Ox Last 24 Hr 97.3 F-98.9 F 88-101 18-20 116-155/52-68 99-99 cor-rrr lungs clear abd soft,nt ext ulcers unchanged CBC, BMP 11/11/18 07:20 11/11/18 07:20 Microbiology 11/09/18 07:00 Blood - Peripheral Venous Blood Culture - Preliminary NO GROWTH OBTAINED AFTER 48 HOURS, INCUBATION TO CONTINUE FOR 3 DAYS. 11/09/18 06:00 Blood - Peripheral Venous Blood Culture - Preliminary NO GROWTH OBTAINED AFTER 48 HOURS, INCUBATION TO CONTINUE FOR 3 DAYS. 11/05/18 05:40 Blood - Peripheral Venous Blood Culture - Final Presumptive Mrsa (Pbp2a Pos) 11/05/18 05:30 Blood - Peripheral Venous Blood Culture - Final S Aureus 11/03/18 05:05 Blood - Peripheral Venous Blood Culture - Final Mr S Aureus 11/03/18 05:05 Blood - Peripheral Venous Blood Culture - Final Mr S Aureus 10/30/18 15:00 Sputum - Endotrachea Suction/Ventilator Gram Stain - Final 10/30/18 15:00 Sputum - Endotrachea Suction/Ventilator Sputum Culture - Final Escherichia Coli Esbl [employer] [place] Mr S Aureus 11/01/18 05:45 Blood - Peripheral Venous Blood Culture - Final Mr S Aureus 11/01/18 05:30 Blood - Peripheral Venous Blood Culture - Final Mr S Aureus 10/29/18 06:50 Blood - Peripheral Venous Blood Culture - Final Mr S Aureus 10/29/18 06:50 Blood - Peripheral Venous Blood Culture - Final Mr S Aureus 10/31/18 12:43 Catheter Site Gram Stain - Final 10/31/18 12:43 Catheter Site Wound Culture - Final Mr S Aureus 10/30/18 13:00 Blood - Pre-Dialysis Blood Culture - Final Mr S Aureus 10/30/18 10:40 Blood - Peripheral Venous Blood Culture - Final Mr S Aureus 10/30/18 10:25 Blood - Peripheral Venous Blood Culture - Final Mr S Aureus 10/29/18 08:00 Urine - Urine Clean Catch Urine Culture - Final NO GROWTH OBTAINED a/p persistent MRSA bacteremia-finally negative blood cultures will repeat in am resp failure s/p extubation esrd/hd not a candidate for ALEJO continue daptomycin and ceftaroline would repeat swallowing evaluation he is much more alert
--- NOTE | 2018-11-11 14:33 | PN ---
Progress Note (short form) - Note Progress Note: Vascular Surgery Right femoral vein shiley removed. No issues. Please contact dr. stringer when pt is ready for permacath placement. Amos harry DO
[2018-11-11] MEDS: DEXTROSE 5%-0.45% SALINE 1,000 ML IV SCH (15:01)
[2018-11-11] MEDS: HEPARIN - 25,000 UNIT in SODIUM CHLORIDE 495 ML IV SCH (17:45)
[2018-11-12] MEDS: THIAMINE HCL 200 MG/2 ML VIAL IVPB SCH ×3 (05:14→21:56)
[2018-11-12 07:06] LABS: HEMATOCRIT 26.5 % (35.4-49); HEMOGLOBIN 8.7 GM/dL (11.7-16.9); MCH 30.7 pg (25.7-33.7); MCHC 32.9 g/dl (32.0-35.9); MEAN CELL VOLUME 93.3 fl (80-96); MEAN PLT VOLUME 8.3 fl (7.5-11.1); PLATELET COUNT 376 K/MM3 (134-434); RBC 2.84 M/mm3 (4.00-5.60); RDW 16.5 % (11.9-15.9); WHITE BLOOD COUNT 6.5 K/mm3 (4.0-10.0)
[2018-11-12] MEDS: PANTOPRAZOLE SODIUM 40 MG VIAL IVPUSH SCH (09:44)
[2018-11-12] MEDS: CEFTAROLINE FOSAMIL ACETATE 200 MG in DEXTROSE 5%-WATER - 100 ML IVPB SCH ×2 (09:45→22:39)
[2018-11-12] MEDS: COLLAGENASE CLOSTRIDIUM HIST. 30 GRAMS TUBE TP SCH (09:45)
--- NOTE | 2018-11-12 11:37 | PN ---
Progress Note, Physician History of Present Illness: pulmonary alert,comfortable,-resp distress - Current Medication List Current Medications: Active Medications Acetaminophen (Tylenol Oral Solution -) 650 mg NGT Q6H PRN PRN Reason: FEVER Last Admin: 11/08/18 21:35 Dose: 650 mg Collagenase (Santyl -) 1 applic TP DAILY [facility]; Protocol Last Admin: 11/12/18 09:45 Dose: 1 applic Heparin Sodium (Porcine) (Heparin -) 1,000 unit IVPUSH PRN PRN PRN Reason: Heparin Last Admin: 11/11/18 03:25 Dose: 1,000 unit Heparin Sodium (Porcine) (Heparin -) 5,000 unit IVPUSH PRN PRN PRN Reason: Heparin Ceftaroline Fosamil 200 mg/ (Dextrose) 100 mls @ 200 mls/hr IVPB BID [facility]; Protocol Last Admin: 11/12/18 09:45 Dose: 200 mls/hr Daptomycin 760 mg/ Sodium (Chloride) 100 mls @ 200 mls/hr IVPB Q48H [facility]; Protocol Last Admin: 11/10/18 13:22 Dose: 200 mls/hr Heparin Sodium (Porcine) 25, (000 unit/ Sodium Chloride) 500 mls @ 20 mls/hr IV TITR [facility]; Protocol Last Admin: 11/11/18 17:45 Dose: 1,100 unit/hr, 22 mls/hr Dextrose/Sodium Chloride (D5-1/2ns -) 1,000 mls @ 30 mls/hr IV ASDIR [facility] Last Admin: 11/11/18 15:01 Dose: 30 mls/hr Metoprolol Tartrate (Lopressor Injection -) 2.5 mg IVPUSH Q6H PRN PRN Reason: TACHYCARDIA Pantoprazole Sodium (Protonix Iv) 40 mg IVPUSH DAILY [facility] Last Admin: 11/12/18 09:44 Dose: 40 mg Thiamine HCl (Vitamin B1 Injection -) 200 mg IVPB TID [facility] Stop: 11/13/18 22:00 Last Admin: 11/12/18 05:14 Dose: 200 mg - Objective Vital Signs: Vital Signs Temperature 99.1 F 11/12/18 09:57 Pulse Rate 91 H 11/12/18 09:57 Respiratory Rate 16 11/12/18 09:57 Blood Pressure 135/65 11/12/18 09:57 O2 Sat by Pulse Oximetry (%) 98 11/12/18 09:00 Constitutional: Yes: Well Nourished, Calm Eyes: Yes: WNL HENT: Yes: WNL Neck: Yes: WNL Cardiovascular: Yes: Pulse Irregular, S1, S2 Respiratory: Yes: Diminished Gastrointestinal: Yes: Normal Bowel Sounds, Soft Extremities: Yes: WNL Edema: Yes Labs: CBC, BMP 11/12/18 06:00 Problem List - Problems (1) MRSA (methicillin resistant staph aureus) culture positive Code(s): Z22.322 - CARRIER OR SUSPECTED CARRIER OF METHICILLIN RESIS STAPH (2) Acute hypoxemic respiratory failure Code(s): J96.01 - ACUTE RESPIRATORY FAILURE WITH HYPOXIA (3) Anemia in chronic illness Code(s): D63.8 - ANEMIA IN OTHER CHRONIC DISEASES CLASSIFIED ELSEWHERE (4) Cellulitis of foot Code(s): L03.119 - CELLULITIS OF UNSPECIFIED PART OF LIMB (5) ESRD (end stage renal disease) Code(s): N18.6 - END STAGE RENAL DISEASE (6) Supratherapeutic INR Code(s): R79.1 - ABNORMAL COAGULATION PROFILE (7) Cellulitis Code(s): L03.90 - CELLULITIS, UNSPECIFIED Qualifiers: Site of cellulitis: extremity Site of cellulitis of extremity: lower extremity Laterality: right Qualified Code(s): L03.115 - Cellulitis of right lower limb (8) Diabetes Code(s): E11.9 - TYPE 2 DIABETES MELLITUS WITHOUT COMPLICATIONS Qualifiers: Diabetes mellitus type: type 2 (9) HTN (hypertension) Code(s): I10 - ESSENTIAL (PRIMARY) HYPERTENSION Qualifiers: Hypertension type: essential hypertension Qualified Code(s): I10 - Essential (primary) hypertension (10) Wound, open, foot Code(s): S91.309A - UNSPECIFIED OPEN WOUND, UNSPECIFIED FOOT, INITIAL ENCOUNTER Qualifiers: Laterality: right Assessment/Plan ASSESSMENT AND PLAN: s/p Acute Hypoxic Respiratory Failure Pneumonia Suspected Diabetic Foot Ulcer Infection MRSA Bacteremia S/P Septic Shock ESRD on HD Lactic Acidosis +Troponins likely Demand Ischemia Supratherapeutic INR Atrial Fibrillation h/o CVA Severe Mitral Regurgitation HTN DM COPD - antibiotics per ID - local wound care - AC - rate control - HD per renal - O2 as needed to maintain SpO2 >90% - Speech and swallow evaluation - Aspiration precautions - DVT/GI prophylaxis DR GODINEZ
--- NOTE | 2018-11-12 11:48 | PN ---
Progress Note, PUTTY PATCHER - Note Progress Note: Remarkable improvement. Now verbalizing, stutters but able to produce sentences. Oriented to self, "rehab", "1919" "Aug". Swallowing function much improved. Impaired communication/swallowing likely sec metabolic encephalopathy , now improved. Selected Entries 11/08/18 11/08/18 11/08/18 02:00 06:00 10:00 Lunch Temperature 98.8 F 98.4 F 98.4 F 11/08/18 11/08/18 11/08/18 11:55 14:05 16:09 Lunch Temperature 98.5 F 98.4 F 98.6 F 11/08/18 11/11/18 11/11/18 20:00 02:00 05:57 Lunch Temperature 100.6 F H 98.4 F 98.9 F 11/11/18 11/11/18 11/11/18 08:39 14:00 16:40 Lunch Temperature 98.8 F 98.1 F 98.3 F 11/11/18 11/12/18 11/12/18 21:59 01:00 06:00 Lunch Temperature 98.2 F 98.1 F 98.3 F 11/12/18 11/12/18 09:57 10:00 Lunch NPO Temperature 99.1 F Laboratory Tests 11/08/18 11/12/18 06:50 06:00 WBC 10.4 H 6.5 REC: Dys puree/nectar thick liquid, 2 calHN, Magic cup, Ensure pudding
--- NOTE | 2018-11-12 12:23 | PN ---
Progress Note, Physician Chief Complaint: patient is awake alert speaking in sentences - Current Medication List Current Medications: Active Medications Acetaminophen (Tylenol Oral Solution -) 650 mg NGT Q6H PRN PRN Reason: FEVER Last Admin: 11/08/18 21:35 Dose: 650 mg Collagenase (Santyl -) 1 applic TP DAILY CHANTELL; Protocol Last Admin: 11/12/18 09:45 Dose: 1 applic Heparin Sodium (Porcine) (Heparin -) 1,000 unit IVPUSH PRN PRN PRN Reason: Heparin Last Admin: 11/11/18 03:25 Dose: 1,000 unit Heparin Sodium (Porcine) (Heparin -) 5,000 unit IVPUSH PRN PRN PRN Reason: Heparin Ceftaroline Fosamil 200 mg/ (Dextrose) 100 mls @ 200 mls/hr IVPB BID CHANTELL; Protocol Last Admin: 11/12/18 09:45 Dose: 200 mls/hr Daptomycin 760 mg/ Sodium (Chloride) 100 mls @ 200 mls/hr IVPB Q48H CHANTELL; Protocol Last Admin: 11/10/18 13:22 Dose: 200 mls/hr Heparin Sodium (Porcine) 25, (000 unit/ Sodium Chloride) 500 mls @ 20 mls/hr IV TITR CHANTELL; Protocol Last Admin: 11/11/18 17:45 Dose: 1,100 unit/hr, 22 mls/hr Dextrose/Sodium Chloride (D5-1/2ns -) 1,000 mls @ 30 mls/hr IV ASDIR CHANTELL Last Admin: 11/11/18 15:01 Dose: 30 mls/hr Metoprolol Tartrate (Lopressor Injection -) 2.5 mg IVPUSH Q6H PRN PRN Reason: TACHYCARDIA Pantoprazole Sodium (Protonix Iv) 40 mg IVPUSH DAILY CHANTELL Last Admin: 11/12/18 09:44 Dose: 40 mg Thiamine HCl (Vitamin B1 Injection -) 200 mg IVPB TID CHANTELL Stop: 11/13/18 22:00 Last Admin: 11/12/18 05:14 Dose: 200 mg - Objective Vital Signs: Vital Signs Temperature 99.1 F 11/12/18 09:57 Pulse Rate 91 H 11/12/18 09:57 Respiratory Rate 16 11/12/18 09:57 Blood Pressure 135/65 11/12/18 09:57 O2 Sat by Pulse Oximetry (%) 98 11/12/18 10:00 Constitutional: Yes: Calm Cardiovascular: Yes: Regular Rate and Rhythm, S1, S2 Respiratory: Yes: Diminished Gastrointestinal: Yes: Normal Bowel Sounds, Soft Extremities: Yes: Other (chronic skin changes leg wound seen) Wound/Incision: Yes: Other (wound dressing- sacrum removed pink no discharge) Neurological: Yes: Alert Labs: CBC, BMP 11/12/18 06:00 11/11/18 07:20 INR, PTT INR 2.13 (0.83-1.09) H 11/09/18 06:00 Problem List - Problems (1) Sepsis Assessment/Plan: Microbiology 10/31/18 12:43 Catheter Site Gram Stain - Final 10/30/18 15:00 Sputum - Endotrachea Suction/Ventilator Gram Stain - Final 10/31/18 12:43 Catheter Site Wound Culture - Preliminary Staphylococcus Latex Coag Pos 10/30/18 15:00 Sputum - Endotrachea Suction/Ventilator Sputum Culture - Preliminary Lactose Fermenting Neg Bacilli Presumptive Mrsa (Pbp2a Pos) 10/30/18 13:00 Blood - Pre-Dialysis Blood Culture - Preliminary Staphylococcus Latex Coag Pos 10/30/18 10:40 Blood - Peripheral Venous Blood Culture - Preliminary Staphylococcus Latex Coag Pos echo done no vegetation daptomycin ceftraloline Microbiology 10/31/18 12:43 Catheter Site Gram Stain - Final 10/31/18 12:43 Catheter Site Wound Culture - Final S Aureus 11/01/18 05:45 Blood - Peripheral Venous Blood Culture - Preliminary Pending Organism 11/01/18 05:30 Blood - Peripheral Venous Blood Culture - Preliminary Pending Organism off pressers Microbiology 11/05/18 05:40 Blood - Peripheral Venous Blood Culture - Final Presumptive Mrsa (Pbp2a Pos) 11/05/18 05:30 Blood - Peripheral Venous Blood Culture - Final Mr S Aureus 11/03/18 05:05 Blood - Peripheral Venous Blood Culture - Final Mr S Aureus 11/03/18 05:05 Blood - Peripheral Venous Blood Culture - Final Mr S Aureus 11/01/18 05:45 Blood - Peripheral Venous Blood Culture - Final Mr S Aureus decreased wbc count today no fever will scan the spine to look for posible absces vs discitis- negative scans for discitis CT chest shows infilrate in rihgt lower lobe seen by swallow team Code(s): A41.9 - SEPSIS, UNSPECIFIED ORGANISM Qualifiers: Sepsis type: sepsis due to unspecified organism Qualified Code(s): A41.9 - Sepsis, unspecified organism (2) Acute hypoxemic respiratory failure Assessment/Plan: resolved on venti mask Code(s): J96.01 - ACUTE RESPIRATORY FAILURE WITH HYPOXIA (3) Supratherapeutic INR Assessment/Plan: NPO iv heparin gi consult for peg appreicate psych eval - paient doesnot have capacity to make decision monitor INR- now it is subtherapeutic Code(s): R79.1 - ABNORMAL COAGULATION PROFILE (4) ESRD (end stage renal disease) Assessment/Plan: HD per renal- today Code(s): N18.6 - END STAGE RENAL DISEASE (5) Wound, open, foot Assessment/Plan: podiatry wound care [facility] Code(s): S91.309A - UNSPECIFIED OPEN WOUND, UNSPECIFIED FOOT, INITIAL ENCOUNTER Qualifiers: Laterality: right Assessment/Plan gi eval noted not a candidate for peg patient is more awake today started on dysphagia preed diet will monitor
--- NOTE | 2018-11-12 12:43 | PN ---
Progress Note (short form) - Note Progress Note: Please send to IR 11/13 for PC insertion if Renal & ID clear.
[2018-11-12] MEDS: DAPTOMYCIN IVPB SCH (12:55)
[2018-11-12] MEDS: SODIUM CHLORIDE IVPB SCH (12:55)
--- NOTE | 2018-11-12 15:03 | PN ---
Progress Note (short form) - Note Progress Note: awake and alert no complaints blood cultures repeated yesterday Vital Signs Period Temp Pulse Resp BP Sys/Zamorano Pulse Ox Last 24 Hr 97.2 F-99.1 F 84-104 16-18 130-143/50-69 98-98 cor-rrr lungs decreased bs at bases abd soft,nt ext dressing RLE CBC, BMP 11/12/18 06:00 11/11/18 07:20 Microbiology 11/09/18 07:00 Blood - Peripheral Venous Blood Culture - Preliminary NO GROWTH OBTAINED AFTER 72 HOURS, INCUBATION TO CONTINUE FOR 2 DAYS. 11/09/18 06:00 Blood - Peripheral Venous Blood Culture - Preliminary NO GROWTH OBTAINED AFTER 72 HOURS, INCUBATION TO CONTINUE FOR 2 DAYS. 11/05/18 05:40 Blood - Peripheral Venous Blood Culture - Final Presumptive Mrsa (Pbp2a Pos) 11/05/18 05:30 Blood - Peripheral Venous Blood Culture - Final Mr S Aureus 11/03/18 05:05 Blood - Peripheral Venous Blood Culture - Final Mr S Aureus 11/03/18 05:05 Blood - Peripheral Venous Blood Culture - Final Mr S Aureus 10/30/18 15:00 Sputum - Endotrachea Suction/Ventilator Gram Stain - Final 10/30/18 15:00 Sputum - Endotrachea Suction/Ventilator Sputum Culture - Final Escherichia Coli Esbl Radiology Nurse Mr S Aureus 11/01/18 05:45 Blood - Peripheral Venous Blood Culture - Final Mr S Aureus 11/01/18 05:30 Blood - Peripheral Venous Blood Culture - Final Mr S Aureus 10/29/18 06:50 Blood - Peripheral Venous Blood Culture - Final Mr S Aureus 10/29/18 06:50 Blood - Peripheral Venous Blood Culture - Final Mr S Aureus 10/31/18 12:43 Catheter Site Gram Stain - Final 10/31/18 12:43 Catheter Site Wound Culture - Final Mr S Aureus 10/30/18 13:00 Blood - Pre-Dialysis Blood Culture - Final Mr S Aureus 10/30/18 10:40 Blood - Peripheral Venous Blood Culture - Final Mr S Aureus 10/30/18 10:25 Blood - Peripheral Venous Blood Culture - Final Mr S Aureus 10/29/18 08:00 Urine - Urine Clean Catch Urine Culture - Final NO GROWTH OBTAINED Current Medications Acetaminophen (Tylenol Oral Solution -) 650 mg NGT Q6H PRN PRN Reason: FEVER Last Admin: 11/08/18 21:35 Dose: 650 mg Collagenase (Santyl -) 1 applic TP DAILY CHANTELL; Protocol Last Admin: 11/12/18 09:45 Dose: 1 applic Heparin Sodium (Porcine) (Heparin -) 1,000 unit IVPUSH PRN PRN PRN Reason: Heparin Last Admin: 11/11/18 03:25 Dose: 1,000 unit Heparin Sodium (Porcine) (Heparin -) 5,000 unit IVPUSH PRN PRN PRN Reason: Heparin Ceftaroline Fosamil 200 mg/ (Dextrose) 100 mls @ 200 mls/hr IVPB BID CHANTELL; Protocol Last Admin: 11/12/18 09:45 Dose: 200 mls/hr Daptomycin 760 mg/ Sodium (Chloride) 100 mls @ 200 mls/hr IVPB Q48H CHANTELL; Protocol Last Admin: 11/12/18 12:55 Dose: 200 mls/hr Heparin Sodium (Porcine) 25, (000 unit/ Sodium Chloride) 500 mls @ 20 mls/hr IV TITR CHANTELL; Protocol Last Admin: 11/11/18 17:45 Dose: 1,100 unit/hr, 22 mls/hr Dextrose/Sodium Chloride (D5-1/2ns -) 1,000 mls @ 30 mls/hr IV ASDIR CHANTELL Last Admin: 11/11/18 15:01 Dose: 30 mls/hr Metoprolol Tartrate (Lopressor Injection -) 2.5 mg IVPUSH Q6H PRN PRN Reason: TACHYCARDIA Pantoprazole Sodium (Protonix Iv) 40 mg IVPUSH DAILY [facility] Last Admin: 11/12/18 09:44 Dose: 40 mg Thiamine HCl (Vitamin B1 Injection -) 200 mg IVPB TID [facility] Stop: 11/13/18 22:00 Last Admin: 11/12/18 05:14 Dose: 200 mg a/p persistent MRSA bacteremia-finally negative blood cultures repeat blood cultures pending, if negative, can place permacath resp failure s/p extubation esrd/hd not a candidate for ALEJO continue daptomycin and ceftaroline check cpk in am
[2018-11-12] MEDS: DEXTROSE 5%-0.45% SALINE 1,000 ML IV SCH (15:32)
--- NOTE | 2018-11-12 15:34 | PN ---
Progress Note, Physician History of Present Illness: Pt seen and examined at bedside. He is awake and appears comfortable. He denies shortness of breath. - Current Medication List Current Medications: Active Medications Acetaminophen (Tylenol Oral Solution -) 650 mg NGT Q6H PRN PRN Reason: FEVER Last Admin: 11/08/18 21:35 Dose: 650 mg Collagenase (Santyl -) 1 applic TP DAILY CHANTELL; Protocol Last Admin: 11/12/18 09:45 Dose: 1 applic Heparin Sodium (Porcine) (Heparin -) 1,000 unit IVPUSH PRN PRN PRN Reason: Heparin Last Admin: 11/11/18 03:25 Dose: 1,000 unit Heparin Sodium (Porcine) (Heparin -) 5,000 unit IVPUSH PRN PRN PRN Reason: Heparin Ceftaroline Fosamil 200 mg/ (Dextrose) 100 mls @ 200 mls/hr IVPB BID CHANTELL; Protocol Last Admin: 11/12/18 09:45 Dose: 200 mls/hr Daptomycin 760 mg/ Sodium (Chloride) 100 mls @ 200 mls/hr IVPB Q48H CHANTELL; Protocol Last Admin: 11/12/18 12:55 Dose: 200 mls/hr Heparin Sodium (Porcine) 25, (000 unit/ Sodium Chloride) 500 mls @ 20 mls/hr IV TITR CHANTELL; Protocol Last Admin: 11/11/18 17:45 Dose: 1,100 unit/hr, 22 mls/hr Dextrose/Sodium Chloride (D5-1/2ns -) 1,000 mls @ 30 mls/hr IV ASDIR CHANTELL Last Admin: 11/11/18 15:01 Dose: 30 mls/hr Metoprolol Tartrate (Lopressor Injection -) 2.5 mg IVPUSH Q6H PRN PRN Reason: TACHYCARDIA Pantoprazole Sodium (Protonix Iv) 40 mg IVPUSH DAILY CHANTELL Last Admin: 11/12/18 09:44 Dose: 40 mg Thiamine HCl (Vitamin B1 Injection -) 200 mg IVPB TID CHANTELL Stop: 11/13/18 22:00 Last Admin: 11/12/18 05:14 Dose: 200 mg - Objective Vital Signs: Vital Signs Temperature 97.2 F L 11/12/18 13:00 Pulse Rate 84 11/12/18 13:00 Respiratory Rate 16 11/12/18 13:00 Blood Pressure 138/65 11/12/18 13:00 O2 Sat by Pulse Oximetry (%) 98 11/12/18 10:00 Constitutional: Yes: Calm Eyes: Yes: Conjunctiva Clear HENT: Yes: Atraumatic Neck: Yes: Supple Cardiovascular: Yes: S1, S2 Respiratory: Yes: CTA Bilaterally Gastrointestinal: Yes: Soft Genitourinary: Yes: Incontinence Musculoskeletal: Yes: Muscle Weakness Edema: No Neurological: Yes: Confusion Labs: CBC, BMP 11/12/18 06:00 11/11/18 07:20 INR, PTT INR 2.13 (0.83-1.09) H 11/09/18 06:00 Problem List - Problems (1) Acute hypoxemic respiratory failure Code(s): J96.01 - ACUTE RESPIRATORY FAILURE WITH HYPOXIA (2) ESRD (end stage renal disease) Code(s): N18.6 - END STAGE RENAL DISEASE (3) Sepsis Code(s): A41.9 - SEPSIS, UNSPECIFIED ORGANISM Qualifiers: Sepsis type: sepsis due to unspecified organism Qualified Code(s): A41.9 - Sepsis, unspecified organism Assessment/Plan Current Medications Generic Name Dose Route Start Last Admin Trade Name Freq PRN Reason Stop Dose Admin Acetaminophen 650 mg 11/08/18 20:31 11/08/18 21:35 Tylenol Oral Solution - NGT 650 mg Q6H PRN Administration FEVER Collagenase 1 applic 11/07/18 10:00 11/12/18 09:45 Santyl - TP 1 applic DAILY CHANTELL Administration Protocol Heparin Sodium (Porcine) 1,000 unit 11/10/18 18:23 11/11/18 03:25 Heparin - IVPUSH 1,000 unit PRN PRN Administration Heparin Heparin Sodium (Porcine) 5,000 unit 11/10/18 18:23 Heparin - IVPUSH PRN PRN Heparin Ceftaroline Fosamil 200 mg/ 100 mls @ 200 mls/hr 11/07/18 10:00 11/12/18 09: 45 Dextrose IVPB 200 mls/hr BID CHANTELL Administration Protocol Daptomycin 760 mg/ Sodium 100 mls @ 200 mls/hr 11/08/18 13:00 11/12/18 12:55 Chloride IVPB 200 mls/hr Q48H CHANTELL Administration Protocol Heparin Sodium (Porcine) 25, 500 mls @ 20 mls/hr 11/10/18 18:30 02/17/19 17: 45 000 unit/ Sodium Chloride IV 1,100 unit/hr TITR CHANTELL 22 mls/hr Administration Protocol 1,000 UNIT/HR Dextrose/Sodium Chloride 1,000 mls @ 30 mls/hr 11/11/18 14:25 11/11/18 15:01 D5-1/2ns - IV 30 mls/hr ASDIR CHANTELL Administration Metoprolol Tartrate 2.5 mg 11/10/18 16:58 Lopressor Injection - IVPUSH Q6H PRN TACHYCARDIA Pantoprazole Sodium 40 mg 11/07/18 10:00 11/12/18 09:44 Protonix Iv IVPUSH 40 mg DAILY CHANTELL Administration Thiamine HCl 200 mg 11/09/18 22:00 11/12/18 15:32 Vitamin B1 Injection - IVPB 11/13/18 22:00 200 mg TID CHANTELL Administration Microbiology 11/09/18 07:00 Blood - Peripheral Venous Blood Culture - Preliminary NO GROWTH OBTAINED AFTER 72 HOURS, INCUBATION TO CONTINUE FOR 2 DAYS. 11/09/18 06:00 Blood - Peripheral Venous Blood Culture - Preliminary NO GROWTH OBTAINED AFTER 72 HOURS, INCUBATION TO CONTINUE FOR 2 DAYS. Impression 1. ESRD 2. acute rep failure 3. DM 4. hyperlipidemia 5. HTN 6. gout 7. proteinuria 8. hypotension/shock 9. sepsis 10. bacteremia Plan - will evaluate for HD tomorrow - repeat labs in am - follow cultures - d/c fluid of started on diet - repeat speech and swallow - ID follow up - will follow
--- NOTE | 2018-11-12 15:58 | PN ---
Progress Note (short form) - Note Progress Note: NEUROLOGY PROGRESS: Events reviewed. On thiamine IV, now day 3 On Ceftaroline and daptomicin. B12, TSH WNL. CRP= 14 mg% and ESR= 124 mm/hr. Much more alert, interactive and communicative. Awake, alert. [facility] But recall [facility] at 2 mins. + Glabella. Grasps. Follows commands. Stewart full to threat. No facial. Moves both arms well. IMP: Moderate, B/L cerebral dysfunction. Toxic-metabolic encephalopathy Marked elevation of ESR, CRP c/w Osteomyelitis (?) SUGGEST: Continue antibiotics and hydration. Will re-see when infection is improved for consideration of meds for OMS. Thank you very much, Perico Starks MD
[2018-11-12 16:41] LABS: INR 1.88 (0.83-1.09); PROTHROMBIN TIME (PATIENT) 22.3 SEC (9.7-13.0)
[2018-11-12] MEDS: HEPARIN - 25,000 UNIT in SODIUM CHLORIDE 495 ML IV SCH (20:27)
[2018-11-12] MEDS ORDERED: PT OWN MED DRAWER 7, Y5N ONE (21:44)
[2018-11-13] MEDS: THIAMINE HCL 200 MG/2 ML VIAL IVPB SCH ×3 (05:36→22:08)
[2018-11-13 06:49] LABS: HEMATOCRIT 23.8 % (35.4-49); HEMOGLOBIN 7.8 GM/dL (11.7-16.9); MCH 30.5 pg (25.7-33.7); MEAN CELL VOLUME 92.5 fl (80-96); MEAN PLT VOLUME 8.3 fl (7.5-11.1); PLATELET COUNT 352 K/MM3 (134-434); RBC 2.57 M/mm3 (4.00-5.60); RDW 16.3 % (11.9-15.9); WHITE BLOOD COUNT 5.9 K/mm3 (4.0-10.0)
[2018-11-13] MEDS: HEPARIN NA (PORCINE) 5,000 UNITS/ML 1ML VIAL IVPUSH PRN (08:05)
--- NOTE | 2018-11-13 09:35 | PN ---
GI Progress Note Subjective: Patient was re-evaluated by speech on 11/12/18 and was started on soft diet. Patient denies difficulty swallowing or coughing when ingesting food or drinking liquids. Denies nausea, vomiting, abdominal pain, rectal bleeding, melena. - Objective Vital Signs: Vital Signs Temperature 98.7 F 11/13/18 06:00 Pulse Rate 86 11/13/18 06:00 Respiratory Rate 20 11/13/18 02:00 Blood Pressure 141/57 L 11/13/18 06:00 O2 Sat by Pulse Oximetry (%) 96 11/12/18 20:05 Constitutional: No Distress, Calm Neck: Yes: Supple Cardiovascular: Yes: Regular Rate and Rhythm Respiratory: Yes: Regular, CTA Bilaterally Gastrointestinal Inspection: No: WNL, Ascites, Distention, Hernia, Scars, Other ...Auscultate: Yes: Normoactive Bowel Sounds. No: Hyperactive Bowel Sounds, Hypoactive Bowel Sounds, No Bowel Sounds, Other ...Palpate: Yes: Soft, Other (non-distended). No: Firm/Rigid, Guarding, Hepatomegaly, Mass, Pulsatile Mass, Splenomegaly, Tenderness, Tenderness, Epigastium, Tenderness, Rebound ...Percussion: Yes: Tympanitic. No: Dullness, Fluid Wave, Other Neurological: Yes: Alert Labs: CBC, BMP 11/13/18 06:10 11/11/18 07:20 INR, PTT INR 1.88 (0.83-1.09) H 11/12/18 15:30 Active Medications Generic Name Dose Route Start Last Admin Trade Name Freq PRN Reason Stop Dose Admin Acetaminophen 650 mg 11/08/18 20:31 11/08/18 21:35 Tylenol Oral Solution - NGT 650 mg Q6H PRN Administration FEVER Collagenase 1 applic 11/07/18 10:00 11/12/18 09:45 Santyl - TP 1 applic DAILY CHANTELL Administration Protocol Heparin Sodium (Porcine) 1,000 unit 11/10/18 18:23 11/11/18 03:25 Heparin - IVPUSH 1,000 unit PRN PRN Administration Heparin Heparin Sodium (Porcine) 5,000 unit 11/10/18 18:23 Heparin - IVPUSH PRN PRN Heparin Ceftaroline Fosamil 200 mg/ 100 mls @ 200 mls/hr 11/07/18 10:00 11/12/18 22: 39 Dextrose IVPB 200 mls/hr BID CHANTELL Administration Protocol Daptomycin 760 mg/ Sodium 100 mls @ 200 mls/hr 11/08/18 13:00 11/12/18 12:55 Chloride IVPB 200 mls/hr Q48H CHANTELL Administration Protocol Heparin Sodium (Porcine) 25, 500 mls @ 20 mls/hr 11/10/18 18:30 11/12/18 20: 27 000 unit/ Sodium Chloride IV 1,100 unit/hr TITR CHANTELL 22 mls/hr Administration Protocol 1,000 UNIT/HR Dextrose/Sodium Chloride 1,000 mls @ 30 mls/hr 11/11/18 14:25 11/12/18 15:32 D5-1/2ns - IV Not Given ASDIR CHANTELL Metoprolol Tartrate 2.5 mg 11/10/18 16:58 Lopressor Injection - IVPUSH Q6H PRN TACHYCARDIA Pantoprazole Sodium 40 mg 11/07/18 10:00 11/12/18 09:44 Protonix Iv IVPUSH 40 mg DAILY CHANTELL Administration Thiamine HCl 200 mg 11/09/18 22:00 11/13/18 05:36 Vitamin B1 Injection - IVPB 11/13/18 22:00 200 mg TID CHANTELL Administration Problem List - Problems (1) Feeding difficulty Assessment/Plan: >patient currently tolerating PO feeds . Code(s): R63.3 - FEEDING DIFFICULTIES (2) Anemia Code(s): D64.9 - ANEMIA, UNSPECIFIED
[2018-11-13] MEDS: COLLAGENASE CLOSTRIDIUM HIST. 30 GRAMS TUBE TP SCH (10:38)
[2018-11-13] MEDS: PANTOPRAZOLE SODIUM 40 MG VIAL IVPUSH SCH (10:38)
[2018-11-13] MEDS: CEFTAROLINE FOSAMIL ACETATE 200 MG in DEXTROSE 5%-WATER - 100 ML IVPB SCH ×2 (10:38→23:20)
--- NOTE | 2018-11-13 11:08 | PN ---
Progress Note, Physician History of Present Illness: pulmonary alert,comfortable,-resp distress,-cp - Current Medication List Current Medications: Active Medications Acetaminophen (Tylenol Oral Solution -) 650 mg NGT Q6H PRN PRN Reason: FEVER Last Admin: 11/08/18 21:35 Dose: 650 mg Collagenase (Santyl -) 1 applic TP DAILY CHANTELL; Protocol Last Admin: 11/13/18 10:38 Dose: 1 applic Heparin Sodium (Porcine) (Heparin -) 1,000 unit IVPUSH PRN PRN PRN Reason: Heparin Last Admin: 11/11/18 03:25 Dose: 1,000 unit Heparin Sodium (Porcine) (Heparin -) 5,000 unit IVPUSH PRN PRN PRN Reason: Heparin Ceftaroline Fosamil 200 mg/ (Dextrose) 100 mls @ 200 mls/hr IVPB BID CHANTELL; Protocol Last Admin: 11/13/18 10:38 Dose: 200 mls/hr Daptomycin 760 mg/ Sodium (Chloride) 100 mls @ 200 mls/hr IVPB Q48H CHANTELL; Protocol Last Admin: 11/12/18 12:55 Dose: 200 mls/hr Heparin Sodium (Porcine) 25, (000 unit/ Sodium Chloride) 500 mls @ 20 mls/hr IV TITR CHANTELL; Protocol Last Admin: 11/12/18 20:27 Dose: 1,100 unit/hr, 22 mls/hr Dextrose/Sodium Chloride (D5-1/2ns -) 1,000 mls @ 30 mls/hr IV ASDIR CHANTELL Last Admin: 11/12/18 15:32 Dose: Not Given Metoprolol Tartrate (Lopressor Injection -) 2.5 mg IVPUSH Q6H PRN PRN Reason: TACHYCARDIA Pantoprazole Sodium (Protonix Iv) 40 mg IVPUSH DAILY CHANTELL Last Admin: 11/13/18 10:38 Dose: 40 mg Thiamine HCl (Vitamin B1 Injection -) 200 mg IVPB TID CHANTELL Stop: 11/13/18 22:00 Last Admin: 11/13/18 05:36 Dose: 200 mg - Objective Vital Signs: Vital Signs Temperature 98.1 F 11/13/18 10:46 Pulse Rate 93 H 11/13/18 10:46 Respiratory Rate 18 11/13/18 10:46 Blood Pressure 131/64 11/13/18 10:46 O2 Sat by Pulse Oximetry (%) 96 11/12/18 20:05 Constitutional: Yes: Well Nourished, Calm Eyes: Yes: WNL HENT: Yes: WNL Neck: Yes: WNL Cardiovascular: Yes: Pulse Irregular, S1, S2 Respiratory: Yes: Diminished Gastrointestinal: Yes: Normal Bowel Sounds, Soft Extremities: Yes: WNL Edema: Yes Labs: CBC, BMP 11/13/18 06:10 Problem List - Problems (1) MRSA (methicillin resistant staph aureus) culture positive Code(s): Z22.322 - CARRIER OR SUSPECTED CARRIER OF METHICILLIN RESIS STAPH (2) Acute hypoxemic respiratory failure Code(s): J96.01 - ACUTE RESPIRATORY FAILURE WITH HYPOXIA (3) Anemia in chronic illness Code(s): D63.8 - ANEMIA IN OTHER CHRONIC DISEASES CLASSIFIED ELSEWHERE (4) Cellulitis of foot Code(s): L03.119 - CELLULITIS OF UNSPECIFIED PART OF LIMB (5) ESRD (end stage renal disease) Code(s): N18.6 - END STAGE RENAL DISEASE (6) Supratherapeutic INR Code(s): R79.1 - ABNORMAL COAGULATION PROFILE (7) Cellulitis Code(s): L03.90 - CELLULITIS, UNSPECIFIED Qualifiers: Site of cellulitis: extremity Site of cellulitis of extremity: lower extremity Laterality: right Qualified Code(s): L03.115 - Cellulitis of right lower limb (8) Diabetes Code(s): E11.9 - TYPE 2 DIABETES MELLITUS WITHOUT COMPLICATIONS Qualifiers: Diabetes mellitus type: type 2 (9) HTN (hypertension) Code(s): I10 - ESSENTIAL (PRIMARY) HYPERTENSION Qualifiers: Hypertension type: essential hypertension Qualified Code(s): I10 - Essential (primary) hypertension (10) Wound, open, foot Code(s): S91.309A - UNSPECIFIED OPEN WOUND, UNSPECIFIED FOOT, INITIAL ENCOUNTER Qualifiers: Laterality: right Assessment/Plan ASSESSMENT AND PLAN: s/p Acute Hypoxic Respiratory Failure Pneumonia clinically improved Suspected Diabetic Foot Ulcer Infection MRSA Bacteremia S/P Septic Shock ESRD on HD Lactic Acidosis +Troponins likely Demand Ischemia Supratherapeutic INR Atrial Fibrillation h/o CVA Severe Mitral Regurgitation HTN DM COPD - antibiotics per ID - local wound care - AC - rate control - HD per renal - O2 as needed to maintain SpO2 >90% - Aspiration precautions - DVT/GI prophylaxis DR GODINEZ
--- NOTE | 2018-11-13 11:22 | PN ---
Progress Note, Physician Chief Complaint: Sepsis ESRD Anemia Bacteremia Acute respiratory failure History of Present Illness: Repeat BC negative so far Seen by ID Still on IV Ceftaroline and Daptomycin Renal function improved Seen by nephrology Needs Permacath- do be done by IR Seen by Podiatry for Right ankle/foot wound - Current Medication List Current Medications: Active Medications Acetaminophen (Tylenol Oral Solution -) 650 mg NGT Q6H PRN PRN Reason: FEVER Last Admin: 11/08/18 21:35 Dose: 650 mg Collagenase (Santyl -) 1 applic TP DAILY [facility]; Protocol Last Admin: 11/13/18 10:38 Dose: 1 applic Heparin Sodium (Porcine) (Heparin -) 1,000 unit IVPUSH PRN PRN PRN Reason: Heparin Last Admin: 11/11/18 03:25 Dose: 1,000 unit Heparin Sodium (Porcine) (Heparin -) 5,000 unit IVPUSH PRN PRN PRN Reason: Heparin Ceftaroline Fosamil 200 mg/ (Dextrose) 100 mls @ 200 mls/hr IVPB BID [facility]; Protocol Last Admin: 11/13/18 10:38 Dose: 200 mls/hr Daptomycin 760 mg/ Sodium (Chloride) 100 mls @ 200 mls/hr IVPB Q48H [facility]; Protocol Last Admin: 11/12/18 12:55 Dose: 200 mls/hr Heparin Sodium (Porcine) 25, (000 unit/ Sodium Chloride) 500 mls @ 20 mls/hr IV TITR [facility]; Protocol Last Admin: 11/12/18 20:27 Dose: 1,100 unit/hr, 22 mls/hr Dextrose/Sodium Chloride (D5-1/2ns -) 1,000 mls @ 30 mls/hr IV ASDIR [facility] Last Admin: 11/12/18 15:32 Dose: Not Given Metoprolol Tartrate (Lopressor Injection -) 2.5 mg IVPUSH Q6H PRN PRN Reason: TACHYCARDIA Pantoprazole Sodium (Protonix Iv) 40 mg IVPUSH DAILY [facility] Last Admin: 11/13/18 10:38 Dose: 40 mg Thiamine HCl (Vitamin B1 Injection -) 200 mg IVPB TID [facility] Stop: 11/13/18 22:00 Last Admin: 11/13/18 05:36 Dose: 200 mg - Objective Vital Signs: Vital Signs Temperature 98.1 F 11/13/18 10:46 Pulse Rate 93 H 11/13/18 10:46 Respiratory Rate 18 11/13/18 10:46 Blood Pressure 131/64 11/13/18 10:46 O2 Sat by Pulse Oximetry (%) 96 11/12/18 20:05 Constitutional: Yes: Well Nourished, No Distress, Calm Cardiovascular: Yes: Regular Rate and Rhythm Respiratory: Yes: Regular Gastrointestinal: Yes: Normal Bowel Sounds, Soft Musculoskeletal: Yes: Muscle Weakness Extremities: Yes: Other (generalized atrophy) Edema: No Peripheral Pulses WNL: Yes Wound/Incision: Yes: Dressing Dry and Intact Neurological: Yes: Alert, Pre-Existing Deficit Psychiatric: Yes: Alert Labs: CBC, BMP 11/13/18 06:10 11/11/18 07:20 INR, PTT INR 1.88 (0.83-1.09) H 11/12/18 15:30 Problem List - Problems (1) Anemia Assessment/Plan: -Guaiac negative -2/2 to ESR vs iron deficiency -monitor trend -normal transfusion parameters -Transfuse if Hg<7.0 to avoid fluid overload Code(s): D64.9 - ANEMIA, UNSPECIFIED (2) ESRD (end stage renal disease) Assessment/Plan: -Nephrology on board -Dialysis as per nephrology -Perma Cath at IR-consult placed-likely to get it in AM Code(s): N18.6 - END STAGE RENAL DISEASE (3) MRSA (methicillin resistant staph aureus) culture positive Assessment/Plan: -Repeat culture negative so far -ID on board -IV Daptomycin + Ceftaroline -afebrile -no leukocytosis Code(s): Z22.322 - CARRIER OR SUSPECTED CARRIER OF METHICILLIN RESIS STAPH (4) Sepsis Assessment/Plan: -Repeat culture negative so far -ID on board -IV Daptomycin + Ceftaroline -afebrile -no leukocytosis Code(s): A41.9 - SEPSIS, UNSPECIFIED ORGANISM Qualifiers: Sepsis type: sepsis due to unspecified organism Qualified Code(s): A41.9 - Sepsis, unspecified organism (5) Toxic metabolic encephalopathy Code(s): G92 - TOXIC ENCEPHALOPATHY (6) Venous stasis ulcer of right lower extremity Assessment/Plan: -Seen by Podiatry Code(s): I83.019 - VARICOSE VEINS OF RIGHT LOWER EXTREMITY W ULCER OF UNSP SITE ; L97.919 - NON-PRS CHRONIC ULC UNSP PRT OF R LOW LEG W UNSP SEVERITY (7) A-fib Assessment/Plan: -Controlled -Coumadin on hold -On heparin drip for permacath placement Code(s): I48.91 - UNSPECIFIED ATRIAL FIBRILLATION (8) Diabetes Assessment/Plan: -Last A1c at 6.6 -repeat A1c -BGM AC HS -Novolog sliding scale Code(s): E11.9 - TYPE 2 DIABETES MELLITUS WITHOUT COMPLICATIONS Qualifiers: Diabetes mellitus type: type 2 Assessment/Plan See problem list Physical therapy Heparin drip for afib
--- NOTE | 2018-11-13 11:52 | PN ---
Progress Note, M[employer]IN[employer] DES[employer]ER - Note Progress Note: Verbal. Missing dentition. Selected Entries 11/08/18 11/08/18 11/08/18 02:00 06:00 10:00 Lunch Temperature 98.8 F 98.4 F 98.4 F 11/08/18 11/08/18 11/08/18 11:55 14:05 16:09 Lunch Temperature 98.5 F 98.4 F 98.6 F 11/08/18 11/11/18 11/11/18 20:00 02:00 05:57 Lunch Temperature 100.6 F H 98.4 F 98.9 F 11/11/18 11/11/18 11/11/18 08:39 14:00 16:40 Lunch Temperature 98.8 F 98.1 F 98.3 F 11/11/18 11/12/18 11/12/18 21:59 01:00 06:00 Lunch Temperature 98.2 F 98.1 F 98.3 F 11/12/18 11/12/18 09:57 10:00 Lunch NPO Temperature 99.1 F Laboratory Tests 11/08/18 11/12/18 06:50 06:00 WBC 10.4 H 6.5 Selected Entries 11/12/18 22:13 Supper 25% Yesterday's diet - Dys puree/nectar thick liquid, 2 calHN, Magic cup, Ensure pudding Made NPO for procedure, but reg diet ordered by accident, as discussed with Nursing. REC: Dys puree/nectar thick liquid, 2 calHN, Magic cup, Ensure pudding for now.
--- NOTE | 2018-11-13 14:12 | PN ---
Progress Note (short form) - Note Progress Note: FUV wounds right ankle and foot. +granulating well, -drainage, +mal odor medial aspect, wounds right lower extremity Wound c&s to be done on right ankle. Discussed with nurse. If possible off load patient on his right side of foot and ankle. Santyl to all wounds. Will follow.
--- NOTE | 2018-11-13 14:13 | PN ---
Progress Note, Physician History of Present Illness: Pt seen and examined at bedside. He is more awake and alert. He is now eating. - Current Medication List Current Medications: Active Medications Acetaminophen (Tylenol Oral Solution -) 650 mg NGT Q6H PRN PRN Reason: FEVER Last Admin: 11/08/18 21:35 Dose: 650 mg Collagenase (Santyl -) 1 applic TP DAILY [facility]; Protocol Last Admin: 11/13/18 10:38 Dose: 1 applic Heparin Sodium (Porcine) (Heparin -) 1,000 unit IVPUSH PRN PRN PRN Reason: Heparin Last Admin: 11/13/18 08:05 Dose: 1,000 unit Heparin Sodium (Porcine) (Heparin -) 5,000 unit IVPUSH PRN PRN PRN Reason: Heparin Ceftaroline Fosamil 200 mg/ (Dextrose) 100 mls @ 200 mls/hr IVPB BID [facility]; Protocol Last Admin: 11/13/18 10:38 Dose: 200 mls/hr Daptomycin 760 mg/ Sodium (Chloride) 100 mls @ 200 mls/hr IVPB Q48H [facility]; Protocol Last Admin: 11/12/18 12:55 Dose: 200 mls/hr Heparin Sodium (Porcine) 25, (000 unit/ Sodium Chloride) 500 mls @ 20 mls/hr IV TITR [facility]; Protocol Last Titration: 11/13/18 08:05 Dose: 1,200 unit/hr, 24 mls/hr Dextrose/Sodium Chloride (D5-1/2ns -) 1,000 mls @ 30 mls/hr IV ASDIR [facility] Last Admin: 11/12/18 15:32 Dose: Not Given Metoprolol Tartrate (Lopressor Injection -) 2.5 mg IVPUSH Q6H PRN PRN Reason: TACHYCARDIA Pantoprazole Sodium (Protonix Iv) 40 mg IVPUSH DAILY [facility] Last Admin: 11/13/18 10:38 Dose: 40 mg Thiamine HCl (Vitamin B1 Injection -) 200 mg IVPB TID [facility] Stop: 11/13/18 22:00 Last Admin: 11/13/18 13:08 Dose: 200 mg - Objective Vital Signs: Vital Signs Temperature 98.1 F 11/13/18 10:46 Pulse Rate 93 H 11/13/18 10:46 Respiratory Rate 18 11/13/18 10:46 Blood Pressure 131/64 11/13/18 10:46 O2 Sat by Pulse Oximetry (%) 99 11/13/18 10:00 Constitutional: Yes: Calm Eyes: Yes: Conjunctiva Clear HENT: Yes: Atraumatic Cardiovascular: Yes: S1, S2 Respiratory: Yes: CTA Bilaterally Gastrointestinal: Yes: Soft Genitourinary: Yes: Incontinence Musculoskeletal: Yes: Muscle Weakness Edema: No Neurological: Yes: Confusion, Other (mental status is improved) Labs: CBC, BMP 11/13/18 06:10 11/11/18 07:20 INR, PTT INR 1.88 (0.83-1.09) H 11/12/18 15:30 Problem List - Problems (1) Acute hypoxemic respiratory failure Code(s): J96.01 - ACUTE RESPIRATORY FAILURE WITH HYPOXIA (2) ESRD (end stage renal disease) Code(s): N18.6 - END STAGE RENAL DISEASE (3) Sepsis Code(s): A41.9 - SEPSIS, UNSPECIFIED ORGANISM Qualifiers: Sepsis type: sepsis due to unspecified organism Qualified Code(s): A41.9 - Sepsis, unspecified organism Assessment/Plan Current Medications Generic Name Dose Route Start Last Admin Trade Name Freq PRN Reason Stop Dose Admin Acetaminophen 650 mg 11/08/18 20:31 11/08/18 21:35 Tylenol Oral Solution - NGT 650 mg Q6H PRN Administration FEVER Collagenase 1 applic 11/07/18 10:00 11/13/18 10:38 Santyl - TP 1 applic DAILY [facility] Administration Protocol Heparin Sodium (Porcine) 1,000 unit 11/10/18 18:23 11/13/18 08:05 Heparin - IVPUSH 1,000 unit PRN PRN Administration Heparin Heparin Sodium (Porcine) 5,000 unit 11/10/18 18:23 Heparin - IVPUSH PRN PRN Heparin Ceftaroline Fosamil 200 mg/ 100 mls @ 200 mls/hr 11/07/18 10:00 11/13/18 10: 38 Dextrose IVPB 200 mls/hr BID [facility] Administration Protocol Daptomycin 760 mg/ Sodium 100 mls @ 200 mls/hr 11/08/18 13:00 11/12/18 12:55 Chloride IVPB 200 mls/hr Q48H [facility] Administration Protocol Heparin Sodium (Porcine) 25, 500 mls @ 20 mls/hr 11/10/18 18:30 11/13/18 08: 05 000 unit/ Sodium Chloride IV 1,200 unit/hr TITR [facility] 24 mls/hr Titration Protocol 1,000 UNIT/HR Dextrose/Sodium Chloride 1,000 mls @ 30 mls/hr 11/11/18 14:25 11/12/18 15:32 D5-1/2ns - IV Not Given ASDIR [facility] Metoprolol Tartrate 2.5 mg 11/10/18 16:58 Lopressor Injection - IVPUSH Q6H PRN TACHYCARDIA Pantoprazole Sodium 40 mg 11/07/18 10:00 11/13/18 10:38 Protonix Iv IVPUSH 40 mg DAILY [facility] Administration Thiamine HCl 200 mg 11/09/18 22:00 11/13/18 13:08 Vitamin B1 Injection - IVPB 11/13/18 22:00 200 mg TID [facility] Administration Microbiology 11/11/18 18:00 Blood - Peripheral Venous Blood Culture - Preliminary NO GROWTH OBTAINED AFTER 24 HOURS, INCUBATION TO CONTINUE FOR 4 DAYS. 11/11/18 17:40 Blood - Peripheral Venous Blood Culture - Preliminary NO GROWTH OBTAINED AFTER 24 HOURS, INCUBATION TO CONTINUE FOR 4 DAYS. 11/09/18 07:00 Blood - Peripheral Venous Blood Culture - Preliminary NO GROWTH OBTAINED AFTER 96 HOURS, INCUBATION TO CONTINUE FOR 1 DAYS. 11/09/18 06:00 Blood - Peripheral Venous Blood Culture - Preliminary NO GROWTH OBTAINED AFTER 96 HOURS, INCUBATION TO CONTINUE FOR 1 DAYS. Impression 1. ESRD 2. acute rep failure 3. DM 4. hyperlipidemia 5. HTN 6. gout 7. proteinuria 8. hypotension/shock 9. sepsis 10. bacteremia Plan - blood cultures negative so far - permacath tomorrow - stop fluids - pt tolerating diet - HD tomorrow - ID follow up - will follow
[2018-11-13] MEDS: INSULIN SLIDING SCALE (NOVOLOG) 1 VIAL SQ SCH (16:43)
--- NOTE | 2018-11-13 16:49 | PN ---
Progress Note (short form) - Note Progress Note: Surgery Patient to have PC placement tomorrow with IR. Surgery team spoke with Dr Pandey regarding placement, he agreed and requested Heparin drip be stopped 4hours prior to placement. Heparin drip held at 6am on 11/14/18 (day of scheduled placement). Surgery will check AM cultures per ID to confirm prelim cultures are negative. NPO after midnight as ordered.
[2018-11-13] MEDS ORDERED: PT OWN MED DRAWER 7, Y5N ONE (18:18)
[2018-11-13] MEDS: HEPARIN - 25,000 UNIT in SODIUM CHLORIDE 495 ML IV SCH (22:08)
[2018-11-14] MEDS: INSULIN SLIDING SCALE (NOVOLOG) 1 VIAL SQ SCH ×3 (06:14→16:53)
[2018-11-14] MEDS ORDERED: PT OWN MED DRAWER 7, Y5N ONE ×5 (09:07→20:58)
[2018-11-14] MEDS: PANTOPRAZOLE SODIUM 40 MG VIAL IVPUSH SCH (09:19)
[2018-11-14] MEDS: COLLAGENASE CLOSTRIDIUM HIST. 30 GRAMS TUBE TP SCH (09:19)
--- NOTE | 2018-11-14 10:17 | PN ---
Progress Note, Physician Chief Complaint: Sepsis ESRD Anemia Bacteremia Acute respiratory failure History of Present Illness: Repeat BC negative so far Seen by ID Still on IV Ceftaroline and Daptomycin Renal function improved Seen by nephrology Needs Permacath- do be done by IR today Seen by Podiatry for Right ankle/foot wound PO intake improved No labs done today yet? - Current Medication List Current Medications: Active Medications Acetaminophen (Tylenol Oral Solution -) 650 mg NGT Q6H PRN PRN Reason: FEVER Last Admin: 11/08/18 21:35 Dose: 650 mg Collagenase (Santyl -) 1 applic TP DAILY [facility]; Protocol Last Admin: 11/14/18 09:19 Dose: 1 applic Epoetin Jose (Epogen -) 10,000 unit IVPUSH ONCE ONE Stop: 11/14/18 14:21 Ceftaroline Fosamil 200 mg/ (Dextrose) 100 mls @ 200 mls/hr IVPB BID [facility]; Protocol Last Admin: 11/13/18 23:20 Dose: 200 mls/hr Daptomycin 760 mg/ Sodium (Chloride) 100 mls @ 200 mls/hr IVPB Q48H [facility]; Protocol Last Admin: 11/12/18 12:55 Dose: 200 mls/hr Sodium Chloride (Normal Saline -) 250 mls @ 3,000 mls/hr IV PRN PRN PRN Reason: Hypotension during Dialysis Stop: 11/14/18 14:20 Insulin Aspart (Novolog Vial Sliding Scale -) 1 vial SQ TIDAC [facility]; Protocol Last Admin: 11/14/18 06:14 Dose: Not Given Metoprolol Tartrate (Lopressor Injection -) 2.5 mg IVPUSH Q6H PRN PRN Reason: TACHYCARDIA Pantoprazole Sodium (Protonix Iv) 40 mg IVPUSH DAILY [facility] Last Admin: 11/14/18 09:19 Dose: 40 mg - Objective Vital Signs: Vital Signs Temperature 98.5 F 11/14/18 06:27 Pulse Rate 84 11/14/18 06:27 Respiratory Rate 18 11/14/18 06:27 Blood Pressure 147/70 11/14/18 06:27 O2 Sat by Pulse Oximetry (%) 97 11/13/18 21:00 Constitutional: Yes: Well Nourished, No Distress, Calm Cardiovascular: Yes: Regular Rate and Rhythm Respiratory: Yes: Regular Gastrointestinal: Yes: Normal Bowel Sounds, Soft Genitourinary: Yes: WNL Musculoskeletal: Yes: Muscle Weakness Extremities: Yes: WNL Edema: No Peripheral Pulses WNL: Yes Wound/Incision: Yes: Dressing Dry and Intact (Right foot/ankle) Neurological: Yes: Alert, Pre-Existing Deficit Psychiatric: Yes: Alert Labs: CBC, BMP 11/13/18 06:10 11/11/18 07:20 INR, PTT INR 1.88 (0.83-1.09) H 11/12/18 15:30 Problem List - Problems (1) Anemia Assessment/Plan: -Guaiac negative -2/2 to ESR vs iron deficiency -monitor trend -normal transfusion parameters -Transfuse if Hg<7.0 to avoid fluid overload -Awaiting labs today -Epogen ordered by nephrology Code(s): D64.9 - ANEMIA, UNSPECIFIED (2) ESRD (end stage renal disease) Assessment/Plan: -Nephrology on board -Dialysis as per nephrology -Perma Cath at IR today Code(s): N18.6 - END STAGE RENAL DISEASE (3) MRSA (methicillin resistant staph aureus) culture positive Assessment/Plan: -Repeat culture negative so far -ID on board -IV Daptomycin + Ceftaroline -afebrile -no leukocytosis Code(s): Z22.322 - CARRIER OR SUSPECTED CARRIER OF METHICILLIN RESIS STAPH (4) Sepsis Assessment/Plan: -Repeat culture negative so far -ID on board -IV Daptomycin + Ceftaroline -afebrile -no leukocytosis -repeat labs pending Code(s): A41.9 - SEPSIS, UNSPECIFIED ORGANISM Qualifiers: Sepsis type: sepsis due to unspecified organism Qualified Code(s): A41.9 - Sepsis, unspecified organism (5) Toxic metabolic encephalopathy Code(s): G92 - TOXIC ENCEPHALOPATHY (6) Venous stasis ulcer of right lower extremity Assessment/Plan: -Seen by Podiatry Code(s): I83.019 - VARICOSE VEINS OF RIGHT LOWER EXTREMITY W ULCER OF UNSP SITE ; L97.919 - NON-PRS CHRONIC ULC UNSP PRT OF R LOW LEG W UNSP SEVERITY (7) A-fib Assessment/Plan: -Controlled -Coumadin on hold -On heparin drip for permacath placement Code(s): I48.91 - UNSPECIFIED ATRIAL FIBRILLATION (8) Diabetes Assessment/Plan: -Last A1c at 6.6 -repeat A1c -BGM AC HS -Novolog sliding scale Code(s): E11.9 - TYPE 2 DIABETES MELLITUS WITHOUT COMPLICATIONS Qualifiers: Diabetes mellitus type: type 2 Assessment/Plan See problem list Physical therapy Heparin drip for afib-held
[2018-11-14] MEDS: CEFTAROLINE FOSAMIL ACETATE 200 MG in DEXTROSE 5%-WATER - 100 ML IVPB SCH ×2 (10:41→22:57)
--- NOTE | 2018-11-14 11:44 | PN ---
Progress Note, [employer]OLDING - Note Progress Note: Selected Entries 11/13/18 11/13/18 11/13/18 02:00 06:00 10:46 Lunch Supper Temperature 99.9 F H 98.7 F 98.1 F 11/13/18 11/13/18 11/13/18 13:20 18:00 19:50 Lunch 50% Supper 100% Temperature 98.3 F 98.6 F 11/13/18 11/14/18 11/14/18 22:00 02:00 06:27 Lunch Supper Temperature 97.8 F 98.3 F 98.5 F Laboratory Tests 11/13/18 06:10 WBC 5.9 Sleepy today with rare verbalizations. Pending Permacath insertion.
--- NOTE | 2018-11-14 11:58 | PN ---
Progress Note, Physician History of Present Illness: PULMONARY AWAKE,NO DISTRESS,-SOB. - Current Medication List Current Medications: Active Medications Acetaminophen (Tylenol Oral Solution -) 650 mg NGT Q6H PRN PRN Reason: FEVER Last Admin: 11/08/18 21:35 Dose: 650 mg Collagenase (Santyl -) 1 applic TP DAILY [facility]; Protocol Last Admin: 11/14/18 09:19 Dose: 1 applic Epoetin Jose (Epogen -) 10,000 unit IVPUSH ONCE ONE Stop: 11/14/18 14:21 Ceftaroline Fosamil 200 mg/ (Dextrose) 100 mls @ 200 mls/hr IVPB BID [facility]; Protocol Last Admin: 11/14/18 10:41 Dose: 200 mls/hr Daptomycin 760 mg/ Sodium (Chloride) 100 mls @ 200 mls/hr IVPB Q48H [facility]; Protocol Last Admin: 11/12/18 12:55 Dose: 200 mls/hr Sodium Chloride (Normal Saline -) 250 mls @ 3,000 mls/hr IV PRN PRN PRN Reason: Hypotension during Dialysis Stop: 11/14/18 14:20 Insulin Aspart (Novolog Vial Sliding Scale -) 1 vial SQ TIDAC [facility]; Protocol Last Admin: 11/14/18 11:22 Dose: Not Given Metoprolol Tartrate (Lopressor Injection -) 2.5 mg IVPUSH Q6H PRN PRN Reason: TACHYCARDIA Pantoprazole Sodium (Protonix Iv) 40 mg IVPUSH DAILY [facility] Last Admin: 11/14/18 09:19 Dose: 40 mg - Objective Vital Signs: Vital Signs Temperature 98.5 F 11/14/18 06:27 Pulse Rate 84 11/14/18 06:27 Respiratory Rate 18 11/14/18 09:00 Blood Pressure 147/70 11/14/18 06:27 O2 Sat by Pulse Oximetry (%) 97 11/14/18 09:00 Constitutional: Yes: Well Nourished, Calm Eyes: Yes: WNL HENT: Yes: WNL Neck: Yes: WNL Cardiovascular: Yes: Pulse Irregular, S1, S2 Respiratory: Yes: Diminished Gastrointestinal: Yes: Normal Bowel Sounds, Soft Extremities: Yes: WNL Edema: Yes Labs: CBC, BMP Problem List - Problems (1) MRSA (methicillin resistant staph aureus) culture positive Code(s): Z22.322 - CARRIER OR SUSPECTED CARRIER OF METHICILLIN RESIS STAPH (2) Acute hypoxemic respiratory failure Code(s): J96.01 - ACUTE RESPIRATORY FAILURE WITH HYPOXIA (3) Anemia in chronic illness Code(s): D63.8 - ANEMIA IN OTHER CHRONIC DISEASES CLASSIFIED ELSEWHERE (4) Cellulitis of foot Code(s): L03.119 - CELLULITIS OF UNSPECIFIED PART OF LIMB (5) ESRD (end stage renal disease) Code(s): N18.6 - END STAGE RENAL DISEASE (6) Supratherapeutic INR Code(s): R79.1 - ABNORMAL COAGULATION PROFILE (7) Cellulitis Code(s): L03.90 - CELLULITIS, UNSPECIFIED Qualifiers: Site of cellulitis: extremity Site of cellulitis of extremity: lower extremity Laterality: right Qualified Code(s): L03.115 - Cellulitis of right lower limb (8) Diabetes Code(s): E11.9 - TYPE 2 DIABETES MELLITUS WITHOUT COMPLICATIONS Qualifiers: Diabetes mellitus type: type 2 (9) HTN (hypertension) Code(s): I10 - ESSENTIAL (PRIMARY) HYPERTENSION Qualifiers: Hypertension type: essential hypertension Qualified Code(s): I10 - Essential (primary) hypertension (10) Wound, open, foot Code(s): S91.309A - UNSPECIFIED OPEN WOUND, UNSPECIFIED FOOT, INITIAL ENCOUNTER Qualifiers: Laterality: right Assessment/Plan ASSESSMENT AND PLAN: s/p Acute Hypoxic Respiratory Failure Pneumonia clinically improved Suspected Diabetic Foot Ulcer Infection MRSA Bacteremia S/P Septic Shock ESRD on HD Lactic Acidosis +Troponins likely Demand Ischemia Supratherapeutic INR corrected Atrial Fibrillation h/o CVA Severe Mitral Regurgitation HTN DM COPD - antibiotics per ID - local wound care - AC as per inr - rate control - HD per renal - O2 as needed to maintain SpO2 >90% - Aspiration precautions - DVT/GI prophylaxis DR GODINEZ
[2018-11-14 12:08] LABS: BASO % 0.5 % (0-2.0); EOS % 2.6 % (0-4.5); HEMATOCRIT 21.9 % (35.4-49); HEMOGLOBIN 7.1 GM/dL (11.7-16.9); MCH 30.2 pg (25.7-33.7); MCHC 32.6 g/dl (32.0-35.9); MEAN CELL VOLUME 92.7 fl (80-96); MEAN PLT VOLUME 8.2 fl (7.5-11.1); MONO % 10.1 % (3.8-10.2); NEUT % 67.8 % (42.8-82.8); PLATELET COUNT 391 K/MM3 (134-434); RBC 2.36 M/mm3 (4.00-5.60); RDW 16.3 % (11.9-15.9); WHITE BLOOD COUNT 6.2 K/mm3 (4.0-10.0)
[2018-11-14 12:20] LABS: INR 1.65 (0.83-1.09); PROTHROMBIN TIME (PATIENT) 19.6 SEC (9.7-13.0)
[2018-11-14 12:26] VITALS: BMI 26.2
--- NOTE | 2018-11-14 12:38 | PN ---
Progress Note, Physician History of Present Illness: Pt seen and examined at bedside. He is awake and appears comfortable. - Current Medication List Current Medications: Active Medications Acetaminophen (Tylenol Oral Solution -) 650 mg NGT Q6H PRN PRN Reason: FEVER Last Admin: 11/08/18 21:35 Dose: 650 mg Collagenase (Santyl -) 1 applic TP DAILY [facility]; Protocol Last Admin: 11/14/18 09:19 Dose: 1 applic Epoetin Jose (Epogen -) 10,000 unit IVPUSH ONCE ONE Stop: 11/14/18 14:21 Ceftaroline Fosamil 200 mg/ (Dextrose) 100 mls @ 200 mls/hr IVPB BID [facility]; Protocol Last Admin: 11/14/18 10:41 Dose: 200 mls/hr Daptomycin 760 mg/ Sodium (Chloride) 100 mls @ 200 mls/hr IVPB Q48H [facility]; Protocol Last Admin: 11/12/18 12:55 Dose: 200 mls/hr Sodium Chloride (Normal Saline -) 250 mls @ 3,000 mls/hr IV PRN PRN PRN Reason: Hypotension during Dialysis Stop: 11/14/18 14:20 Insulin Aspart (Novolog Vial Sliding Scale -) 1 vial SQ TIDAC [facility]; Protocol Last Admin: 11/14/18 11:22 Dose: Not Given Metoprolol Tartrate (Lopressor Injection -) 2.5 mg IVPUSH Q6H PRN PRN Reason: TACHYCARDIA Pantoprazole Sodium (Protonix Iv) 40 mg IVPUSH DAILY [facility] Last Admin: 11/14/18 09:19 Dose: 40 mg - Objective Vital Signs: Vital Signs Temperature 98.5 F 11/14/18 06:27 Pulse Rate 84 11/14/18 06:27 Respiratory Rate 18 11/14/18 09:00 Blood Pressure 147/70 11/14/18 06:27 O2 Sat by Pulse Oximetry (%) 97 11/14/18 09:00 Constitutional: Yes: Calm Eyes: Yes: Conjunctiva Clear HENT: Yes: Atraumatic Cardiovascular: Yes: S1, S2 Respiratory: Yes: CTA Bilaterally Gastrointestinal: Yes: Soft Genitourinary: Yes: Incontinence Musculoskeletal: Yes: Muscle Weakness Edema: No Wound/Incision: Yes: Dressing Dry and Intact Neurological: Yes: Confusion Labs: CBC, BMP 11/14/18 11:50 INR, PTT INR 1.65 (0.83-1.09) H 11/14/18 11:50 Problem List - Problems (1) Acute hypoxemic respiratory failure Code(s): J96.01 - ACUTE RESPIRATORY FAILURE WITH HYPOXIA (2) ESRD (end stage renal disease) Code(s): N18.6 - END STAGE RENAL DISEASE (3) Sepsis Code(s): A41.9 - SEPSIS, UNSPECIFIED ORGANISM Qualifiers: Sepsis type: sepsis due to unspecified organism Qualified Code(s): A41.9 - Sepsis, unspecified organism Assessment/Plan Current Medications Generic Name Dose Route Start Last Admin Trade Name Freq PRN Reason Stop Dose Admin Acetaminophen 650 mg 11/08/18 20:31 11/08/18 21:35 Tylenol Oral Solution - NGT 650 mg Q6H PRN Administration FEVER Collagenase 1 applic 11/07/18 10:00 11/14/18 09:19 Santyl - TP 1 applic DAILY [facility] Administration Protocol Epoetin Jose 10,000 unit 11/14/18 14:20 Epogen - IVPUSH 11/14/18 14:21 ONCE ONE Ceftaroline Fosamil 200 mg/ 100 mls @ 200 mls/hr 11/07/18 10:00 11/14/18 10: 41 Dextrose IVPB 200 mls/hr BID [facility] Administration Protocol Daptomycin 760 mg/ Sodium 100 mls @ 200 mls/hr 11/08/18 13:00 11/12/18 12:55 Chloride IVPB 200 mls/hr Q48H [facility] Administration Protocol Sodium Chloride 250 mls @ 3,000 mls/hr 11/13/18 14:20 Normal Saline - IV 11/14/18 14:20 PRN PRN Hypotension during Dialysis Insulin Aspart 1 vial 11/13/18 16:30 11/14/18 11:22 Novolog Vial Sliding Scale - SQ Not Given TIDAC [facility] Protocol Metoprolol Tartrate 2.5 mg 11/10/18 16:58 Lopressor Injection - IVPUSH Q6H PRN TACHYCARDIA Pantoprazole Sodium 40 mg 11/07/18 10:00 11/14/18 09:19 Protonix Iv IVPUSH 40 mg DAILY [facility] Administration Microbiology 11/09/18 07:00 Blood - Peripheral Venous Blood Culture - Final NO GROWTH AFTER 5 DAYS INCUBATION 11/09/18 06:00 Blood - Peripheral Venous Blood Culture - Final NO GROWTH AFTER 5 DAYS INCUBATION 11/11/18 18:00 Blood - Peripheral Venous Blood Culture - Preliminary NO GROWTH OBTAINED AFTER 48 HOURS, INCUBATION TO CONTINUE FOR 3 DAYS. 11/11/18 17:40 Blood - Peripheral Venous Blood Culture - Preliminary NO GROWTH OBTAINED AFTER 48 HOURS, INCUBATION TO CONTINUE FOR 3 DAYS. Impression 1. ESRD 2. acute rep failure 3. DM 4. hyperlipidemia 5. HTN 6. gout 7. proteinuria 8. hypotension/shock 9. sepsis 10. bacteremia Plan - pt for permacath today - HD today - cultures remain negative - epogen for anemia - repeat labs in am - renal diet - will follow
[2018-11-14 12:41] LABS: ALBUMIN 1.8 g/dl (3.4-5.0); ALK PHOS 111 U/L (45-117); ANION GAP 10 MMOL/L (8-16); BILIRUBIN,TOTAL 0.7 mg/dL (0.2-1); BLOOD UREA NITROGEN 41 mg/dL (7-18); CALCIUM 7.6 mg/dL (8.5-10.1); CHLORIDE 106 mmol/L (98-107); CO2 25 mmol/L (21-32); CREATININE 7.3 mg/dL (0.55-1.3); GLUCOSE,RANDOM 113 mg/dL (74-106); POTASSIUM 3.9 mmol/L (3.5-5.1); SGOT/AST 12 U/L (15-37); SGPT/ALT 8 U/L (13-61); SODIUM 141 mmol/L (136-145); TOT PROT 6.8 g/dl (6.4-8.2)
[2018-11-14] MEDS: DAPTOMYCIN IVPB SCH (15:58)
[2018-11-14] MEDS: SODIUM CHLORIDE IVPB SCH (15:58)
[2018-11-14] MEDS ORDERED: SODIUM CHLORIDE 250 ML IV PRN (19:20)
[2018-11-14] MEDS ORDERED: EPOETIN ALFA 10,000 UNIT/1 ML VIAL IVPUSH ONE (19:30)
--- NOTE | 2018-11-14 21:46 | PN ---
Progress Note, Physician Chief Complaint: MORE AWAKE AND RESONSIVE NO ACUTE DISTRESS DENIES PAIN AFEBRILE REPEAT NO GROWTH - Current Medication List Current Medications: Active Medications Acetaminophen (Tylenol Oral Solution -) 650 mg NGT Q6H PRN PRN Reason: FEVER Last Admin: 11/08/18 21:35 Dose: 650 mg Collagenase (Santyl -) 1 applic TP DAILY [facility]; Protocol Last Admin: 11/14/18 09:19 Dose: 1 applic Ceftaroline Fosamil 200 mg/ (Dextrose) 100 mls @ 200 mls/hr IVPB BID [facility]; Protocol Last Admin: 11/14/18 10:41 Dose: 200 mls/hr Daptomycin 760 mg/ Sodium (Chloride) 100 mls @ 200 mls/hr IVPB Q48H [facility]; Protocol Last Admin: 11/14/18 15:58 Dose: 200 mls/hr Sodium Chloride (Normal Saline -) 250 mls @ 3,000 mls/hr IV PRN PRN PRN Reason: Hypotension during Dialysis Stop: 11/14/18 22:00 Insulin Aspart (Novolog Vial Sliding Scale -) 1 vial SQ TIDAC [facility]; Protocol Last Admin: 11/14/18 16:53 Dose: Not Given Metoprolol Tartrate (Lopressor Injection -) 2.5 mg IVPUSH Q6H PRN PRN Reason: TACHYCARDIA Pantoprazole Sodium (Protonix Iv) 40 mg IVPUSH DAILY [facility] Last Admin: 11/14/18 09:19 Dose: 40 mg - Objective Vital Signs: Vital Signs Temperature 97.8 F 11/14/18 18:50 Pulse Rate 94 H 11/14/18 20:55 Respiratory Rate 18 11/14/18 20:55 Blood Pressure 129/77 11/14/18 20:55 O2 Sat by Pulse Oximetry (%) 100 11/14/18 15:02 Constitutional: Yes: No Distress Cardiovascular: Yes: Regular Rate and Rhythm, S1, S2 Respiratory: Yes: Diminished Gastrointestinal: Yes: Normal Bowel Sounds, Soft Edema: Yes Labs: CBC, BMP 11/14/18 11:50 11/14/18 11:50 INR, PTT INR 1.65 (0.83-1.09) H 11/14/18 11:50 Assessment/Plan SEPSIS/ SEPTIC SHOCK RESOLVED STAPH BACTEREMIA MRSA ? FOOT SOURCE ? CATHETER RESP FAILURE S/P EXTUBATION ACUTE EXACERBATION COPD ? L PNEUMONIA NON HEALING FOOT ULCERS REPEAT BC NEGATIVE CONTINUE DAPTOMYCIN 8MG/KG + CEFTAROLINE
[2018-11-15 04:15] LABS: SERUM IRON SATURATION 13 % (15-55); TOTAL IRON BINDING CAPACITY 120 ug/dL (250-450); UIBC 104 ug/dL (111-343)
[2018-11-15] MEDS: INSULIN SLIDING SCALE (NOVOLOG) 1 VIAL SQ SCH ×3 (06:37→16:50)
[2018-11-15 08:17] LABS: BASO % 2.6 % (0-2.0); EOS % 1.8 % (0-4.5); HEMATOCRIT 26.1 % (35.4-49); HEMOGLOBIN 8.7 GM/dL (11.7-16.9); LYMPH % 22.2 % (8-40); MCH 30.7 pg (25.7-33.7); MCHC 33.2 g/dl (32.0-35.9); MEAN CELL VOLUME 92.3 fl (80-96); MEAN PLT VOLUME 8.2 fl (7.5-11.1); NEUT % 60.4 % (42.8-82.8); PLATELET COUNT 374 K/MM3 (134-434); RBC 2.83 M/mm3 (4.00-5.60); WHITE BLOOD COUNT 5.5 K/mm3 (4.0-10.0)
[2018-11-15 08:46] LABS: ALK PHOS 118 U/L (45-117); ANION GAP 9 MMOL/L (8-16); BILIRUBIN,TOTAL 0.5 mg/dL (0.2-1); BLOOD UREA NITROGEN 14 mg/dL (7-18); CALCIUM 8.4 mg/dL (8.5-10.1); CHLORIDE 103 mmol/L (98-107); CO2 29 mmol/L (21-32); CREATININE 3.6 mg/dL (0.55-1.3); GLUCOSE,RANDOM 96 mg/dL (74-106); POTASSIUM 3.8 mmol/L (3.5-5.1); SGOT/AST 12 U/L (15-37); SGPT/ALT 8 U/L (13-61); SODIUM 141 mmol/L (136-145); TOT PROT 7.4 g/dl (6.4-8.2)
[2018-11-15] MEDS: CEFTAROLINE FOSAMIL ACETATE 200 MG in DEXTROSE 5%-WATER - 100 ML IVPB SCH ×2 (10:08→20:59)
[2018-11-15] MEDS: PANTOPRAZOLE SODIUM 40 MG VIAL IVPUSH SCH (10:09)
--- NOTE | 2018-11-15 12:06 | PN ---
Progress Note, Physician History of Present Illness: pulmonary alert,no distress,-sob,-cp - Current Medication List Current Medications: Active Medications Acetaminophen (Tylenol Oral Solution -) 650 mg NGT Q6H PRN PRN Reason: FEVER Last Admin: 11/08/18 21:35 Dose: 650 mg Collagenase (Santyl -) 1 applic TP DAILY [facility]; Protocol Last Admin: 11/14/18 09:19 Dose: 1 applic Ceftaroline Fosamil 200 mg/ (Dextrose) 100 mls @ 200 mls/hr IVPB BID [facility]; Protocol Last Admin: 11/15/18 10:08 Dose: 200 mls/hr Daptomycin 760 mg/ Sodium (Chloride) 100 mls @ 200 mls/hr IVPB Q48H [facility]; Protocol Last Admin: 11/14/18 15:58 Dose: 200 mls/hr Insulin Aspart (Novolog Vial Sliding Scale -) 1 vial SQ TIDAC [facility]; Protocol Last Admin: 11/15/18 11:13 Dose: Not Given Metoprolol Tartrate (Lopressor Injection -) 2.5 mg IVPUSH Q6H PRN PRN Reason: TACHYCARDIA Pantoprazole Sodium (Protonix Iv) 40 mg IVPUSH DAILY [facility] Last Admin: 11/15/18 10:09 Dose: 40 mg - Objective Vital Signs: Vital Signs Temperature 98.1 F 11/15/18 06:00 Pulse Rate 106 H 11/15/18 06:00 Respiratory Rate 19 11/15/18 06:00 Blood Pressure 121/62 11/15/18 06:00 O2 Sat by Pulse Oximetry (%) 100 11/14/18 21:00 Constitutional: Yes: Well Nourished, Calm Eyes: Yes: WNL HENT: Yes: WNL Neck: Yes: WNL Cardiovascular: Yes: Pulse Irregular, S1, S2 Respiratory: Yes: CTA Bilaterally Gastrointestinal: Yes: Normal Bowel Sounds, Soft Extremities: Yes: WNL Edema: Yes Labs: CBC, BMP 11/15/18 07:00 11/15/18 07:00 INR, PTT INR 1.65 (0.83-1.09) H 11/14/18 11:50 Problem List - Problems (1) MRSA (methicillin resistant staph aureus) culture positive Code(s): Z22.322 - CARRIER OR SUSPECTED CARRIER OF METHICILLIN RESIS STAPH (2) Acute hypoxemic respiratory failure Code(s): J96.01 - ACUTE RESPIRATORY FAILURE WITH HYPOXIA (3) Anemia in chronic illness Code(s): D63.8 - ANEMIA IN OTHER CHRONIC DISEASES CLASSIFIED ELSEWHERE (4) Cellulitis of foot Code(s): L03.119 - CELLULITIS OF UNSPECIFIED PART OF LIMB (5) ESRD (end stage renal disease) Code(s): N18.6 - END STAGE RENAL DISEASE (6) Supratherapeutic INR Code(s): R79.1 - ABNORMAL COAGULATION PROFILE (7) Cellulitis Code(s): L03.90 - CELLULITIS, UNSPECIFIED Qualifiers: Site of cellulitis: extremity Site of cellulitis of extremity: lower extremity Laterality: right Qualified Code(s): L03.115 - Cellulitis of right lower limb (8) Diabetes Code(s): E11.9 - TYPE 2 DIABETES MELLITUS WITHOUT COMPLICATIONS Qualifiers: Diabetes mellitus type: type 2 (9) HTN (hypertension) Code(s): I10 - ESSENTIAL (PRIMARY) HYPERTENSION Qualifiers: Hypertension type: essential hypertension Qualified Code(s): I10 - Essential (primary) hypertension (10) Wound, open, foot Code(s): S91.309A - UNSPECIFIED OPEN WOUND, UNSPECIFIED FOOT, INITIAL ENCOUNTER Qualifiers: Laterality: right Assessment/Plan ASSESSMENT AND PLAN: s/p Acute Hypoxic Respiratory Failure Pneumonia clinically improved Suspected Diabetic Foot Ulcer Infection MRSA Bacteremia S/P Septic Shock ESRD on HD Lactic Acidosis +Troponins likely Demand Ischemia Supratherapeutic INR corrected Atrial Fibrillation h/o CVA Severe Mitral Regurgitation HTN DM COPD - antibiotics per ID - local wound care - AC as per inr - rate control - HD per renal - O2 as needed to maintain SpO2 >90% - Aspiration precautions - DVT/GI prophylaxis DR GODINEZ
--- NOTE | 2018-11-15 12:10 | PN ---
Progress Note, Physician Chief Complaint: patient seen and examined awake alert today s/p permacath placement HD done yesterday - Current Medication List Current Medications: Active Medications Acetaminophen (Tylenol Oral Solution -) 650 mg NGT Q6H PRN PRN Reason: FEVER Last Admin: 11/08/18 21:35 Dose: 650 mg Collagenase (Santyl -) 1 applic TP DAILY [facility]; Protocol Last Admin: 11/14/18 09:19 Dose: 1 applic Ceftaroline Fosamil 200 mg/ (Dextrose) 100 mls @ 200 mls/hr IVPB BID [facility]; Protocol Last Admin: 11/15/18 10:08 Dose: 200 mls/hr Daptomycin 760 mg/ Sodium (Chloride) 100 mls @ 200 mls/hr IVPB Q48H [facility]; Protocol Last Admin: 11/14/18 15:58 Dose: 200 mls/hr Insulin Aspart (Novolog Vial Sliding Scale -) 1 vial SQ TIDAC [facility]; Protocol Last Admin: 11/15/18 11:13 Dose: Not Given Metoprolol Tartrate (Lopressor Injection -) 2.5 mg IVPUSH Q6H PRN PRN Reason: TACHYCARDIA Pantoprazole Sodium (Protonix Iv) 40 mg IVPUSH DAILY [facility] Last Admin: 11/15/18 10:09 Dose: 40 mg - Objective Vital Signs: Vital Signs Temperature 98.1 F 11/15/18 06:00 Pulse Rate 106 H 11/15/18 06:00 Respiratory Rate 19 11/15/18 06:00 Blood Pressure 121/62 11/15/18 06:00 O2 Sat by Pulse Oximetry (%) 100 11/14/18 21:00 Constitutional: Yes: Calm Cardiovascular: Yes: Regular Rate and Rhythm, S1, S2 Respiratory: Yes: Diminished Gastrointestinal: Yes: Normal Bowel Sounds, Soft Labs: CBC, BMP 11/15/18 07:00 11/15/18 07:00 INR, PTT INR 1.65 (0.83-1.09) H 11/14/18 11:50 Problem List - Problems (1) Sepsis Assessment/Plan: Microbiology 10/31/18 12:43 Catheter Site Gram Stain - Final 10/30/18 15:00 Sputum - Endotrachea Suction/Ventilator Gram Stain - Final 10/31/18 12:43 Catheter Site Wound Culture - Preliminary Staphylococcus Latex Coag Pos 10/30/18 15:00 Sputum - Endotrachea Suction/Ventilator Sputum Culture - Preliminary Lactose Fermenting Neg Bacilli Presumptive Mrsa (Pbp2a Pos) 10/30/18 13:00 Blood - Pre-Dialysis Blood Culture - Preliminary Staphylococcus Latex Coag Pos 10/30/18 10:40 Blood - Peripheral Venous Blood Culture - Preliminary Staphylococcus Latex Coag Pos echo done no vegetation daptomycin ceftraloline Microbiology 10/31/18 12:43 Catheter Site Gram Stain - Final 10/31/18 12:43 Catheter Site Wound Culture - Final S Aureus 11/01/18 05:45 Blood - Peripheral Venous Blood Culture - Preliminary Pending Organism 11/01/18 05:30 Blood - Peripheral Venous Blood Culture - Preliminary Pending Organism off pressers Microbiology 11/05/18 05:40 Blood - Peripheral Venous Blood Culture - Final Presumptive Mrsa (Pbp2a Pos) 11/05/18 05:30 Blood - Peripheral Venous Blood Culture - Final S Aureus 11/03/18 05:05 Blood - Peripheral Venous Blood Culture - Final S Aureus 11/03/18 05:05 Blood - Peripheral Venous Blood Culture - Final S Aureus 11/01/18 05:45 Blood - Peripheral Venous Blood Culture - Final S Aureus decreased wbc count today no fever will scan the spine to look for posible absces vs discitis- negative scans for discitis CT chest shows infilrate in rihgt lower lobe seen by swallow team Code(s): A41.9 - SEPSIS, UNSPECIFIED ORGANISM Qualifiers: Qualified Code(s): A41.9 - Sepsis, unspecified organism (2) Acute hypoxemic respiratory failure Assessment/Plan: resolved on venti mask Code(s): J96.01 - ACUTE RESPIRATORY FAILURE WITH HYPOXIA (3) Supratherapeutic INR Assessment/Plan: couamdin was held bc decreased po intake was on heparin drip which was held for permacath placement yesterday will restart iv heparin drip for afib Code(s): R79.1 - ABNORMAL COAGULATION PROFILE (4) ESRD (end stage renal disease) Assessment/Plan: HD per renal- today Code(s): N18.6 - END STAGE RENAL DISEASE (5) Wound, open, foot Assessment/Plan: podiatry wound care [facility] Code(s): S91.309A - UNSPECIFIED OPEN WOUND, UNSPECIFIED FOOT, INITIAL ENCOUNTER
--- NOTE | 2018-11-15 12:49 | PN ---
Progress Note, [employer]INE - Note Progress Note: Selected Entries 11/14/18 11/14/18 11/14/18 02:00 06:27 10:00 Temperature 98.3 F 98.5 F 97.9 F 11/14/18 11/14/18 11/15/18 18:00 18:50 02:00 Temperature 97.9 F 97.8 F 98.1 F 11/15/18 11/15/18 06:00 10:00 Temperature 98.1 F 98.7 F Laboratory Tests 11/15/18 07:00 WBC 5.5 More alert, verbal, AMS. Needs assist with meals. Continue modified diet.
[2018-11-15] MEDS ORDERED: HEPARIN NA (PORCINE) 5,000 UNITS/ML 1ML VIAL IVPUSH PRN ×2 (12:51→12:52)
[2018-11-15] MEDS ORDERED: PT OWN MED DRAWER 7, Y5N ONE ×2 (12:56→20:50)
[2018-11-15] MEDS: COLLAGENASE CLOSTRIDIUM HIST. 30 GRAMS TUBE TP SCH (13:23)
[2018-11-15] MEDS: HEPARIN INFUSION - 25,000 UNITS/500 ML INFUS.BAG IV SCH (13:24)
[2018-11-15] MEDS ORDERED: SODIUM CHLORIDE 250 ML IV PRN (16:16)
--- NOTE | 2018-11-15 16:17 | PN ---
Progress Note, Physician History of Present Illness: Pt seen and examined at bedside. He is awake and appears comfortable. He denies shortness of breath. - Current Medication List Current Medications: Active Medications Acetaminophen (Tylenol Oral Solution -) 650 mg NGT Q6H PRN PRN Reason: FEVER Last Admin: 11/08/18 21:35 Dose: 650 mg Collagenase (Santyl -) 1 applic TP DAILY [facility]; Protocol Last Admin: 11/15/18 13:23 Dose: 1 applic Heparin Sodium (Porcine) (Heparin -) 1,000 unit IVPUSH PRN PRN PRN Reason: Heparin Heparin Sodium (Porcine) (Heparin -) 5,000 unit IVPUSH PRN PRN PRN Reason: Heparin Ceftaroline Fosamil 200 mg/ (Dextrose) 100 mls @ 200 mls/hr IVPB BID [facility]; Protocol Last Admin: 11/15/18 10:08 Dose: 200 mls/hr Daptomycin 760 mg/ Sodium (Chloride) 100 mls @ 200 mls/hr IVPB Q48H [facility]; Protocol Last Admin: 11/14/18 15:58 Dose: 200 mls/hr Heparin Sodium/Dextrose (Heparin Infusion -) 25,000 units in 500 mls @ 20 mls/ hr IV TITR [facility]; Protocol Last Admin: 11/15/18 13:24 Dose: 1,000 units/hr, 20 mls/hr Insulin Aspart (Novolog Vial Sliding Scale -) 1 vial SQ TIDAC [facility]; Protocol Last Admin: 11/15/18 11:13 Dose: Not Given Metoprolol Tartrate (Lopressor Injection -) 2.5 mg IVPUSH Q6H PRN PRN Reason: TACHYCARDIA Pantoprazole Sodium (Protonix Iv) 40 mg IVPUSH DAILY [facility] Last Admin: 11/15/18 10:09 Dose: 40 mg - Objective Vital Signs: Vital Signs Temperature 98.2 F 11/15/18 14:11 Pulse Rate 102 H 11/15/18 14:11 Respiratory Rate 18 11/15/18 14:11 Blood Pressure 117/79 11/15/18 14:11 O2 Sat by Pulse Oximetry (%) 95 11/15/18 09:00 Constitutional: Yes: Calm Eyes: Yes: Conjunctiva Clear HENT: Yes: Atraumatic Neck: Yes: Supple Cardiovascular: Yes: S1, S2 Respiratory: Yes: CTA Bilaterally Gastrointestinal: Yes: Soft Genitourinary: Yes: Incontinence Musculoskeletal: Yes: WNL Edema: No Neurological: Yes: Confusion Psychiatric: Yes: Oriented Labs: CBC, BMP 11/15/18 07:00 11/15/18 07:00 INR, PTT INR 1.65 (0.83-1.09) H 11/14/18 11:50 Problem List - Problems (1) Acute hypoxemic respiratory failure Code(s): J96.01 - ACUTE RESPIRATORY FAILURE WITH HYPOXIA (2) ESRD (end stage renal disease) Code(s): N18.6 - END STAGE RENAL DISEASE (3) Sepsis Code(s): A41.9 - SEPSIS, UNSPECIFIED ORGANISM Qualifiers: Sepsis type: sepsis due to unspecified organism Qualified Code(s): A41.9 - Sepsis, unspecified organism Assessment/Plan Current Medications Generic Name Dose Route Start Last Admin Trade Name Freq PRN Reason Stop Dose Admin Acetaminophen 650 mg 11/08/18 20:31 11/08/18 21:35 Tylenol Oral Solution - NGT 650 mg Q6H PRN Administration FEVER Collagenase 1 applic 11/07/18 10:00 11/15/18 13:23 Santyl - TP 1 applic DAILY [facility] Administration Protocol Heparin Sodium (Porcine) 1,000 unit 11/15/18 12:51 Heparin - IVPUSH PRN PRN Heparin Heparin Sodium (Porcine) 5,000 unit 11/15/18 12:52 Heparin - IVPUSH PRN PRN Heparin Ceftaroline Fosamil 200 mg/ 100 mls @ 200 mls/hr 11/07/18 10:00 11/15/18 10: 08 Dextrose IVPB 200 mls/hr BID [facility] Administration Protocol Daptomycin 760 mg/ Sodium 100 mls @ 200 mls/hr 11/08/18 13:00 11/14/18 15:58 Chloride IVPB 200 mls/hr Q48H [facility] Administration Protocol Heparin Sodium/Dextrose 25,000 units in 500 mls @ 20 mls/hr 11/15/18 13:00 13:24 Heparin Infusion - IV 1,000 units/hr TITR [facility] 20 mls/hr Administration Protocol 1,000 UNITS/HR Insulin Aspart 1 vial 11/13/18 16:30 11/15/18 11:13 Novolog Vial Sliding Scale - SQ Not Given TIDAC [facility] Protocol Metoprolol Tartrate 2.5 mg 11/10/18 16:58 Lopressor Injection - IVPUSH Q6H PRN TACHYCARDIA Pantoprazole Sodium 40 mg 11/07/18 10:00 11/15/18 10:09 Protonix Iv IVPUSH 40 mg DAILY [facility] Administration . Microbiology 11/09/18 07:00 Blood - Peripheral Venous Blood Culture - Final NO GROWTH AFTER 5 DAYS INCUBATION 11/09/18 06:00 Blood - Peripheral Venous Blood Culture - Final NO GROWTH AFTER 5 DAYS INCUBATION 11/11/18 18:00 Blood - Peripheral Venous Blood Culture - Preliminary NO GROWTH OBTAINED AFTER 72 HOURS, INCUBATION TO CONTINUE FOR 2 DAYS. 11/11/18 17:40 Blood - Peripheral Venous Blood Culture - Preliminary NO GROWTH OBTAINED AFTER 72 HOURS, INCUBATION TO CONTINUE FOR 2 DAYS. Impression 1. ESRD 2. acute rep failure 3. DM 4. hyperlipidemia 5. HTN 6. gout 7. proteinuria 8. hypotension/shock 9. sepsis 10. bacteremia Plan - HD tomorrow - abx per ID - cont wound care - epogen for anemia - repeat labs in am - renal diet - will follow
[2018-11-16 07:33] LABS: BASO % 2.4 % (0-2.0); EOS % 3.6 % (0-4.5); HEMATOCRIT 24.4 % (35.4-49); LYMPH % 27.2 % (8-40); MCH 30.3 pg (25.7-33.7); MCHC 32.8 g/dl (32.0-35.9); MEAN CELL VOLUME 92.3 fl (80-96); MEAN PLT VOLUME 8.3 fl (7.5-11.1); MONO % 12.3 % (3.8-10.2); NEUT % 54.5 % (42.8-82.8); PLATELET COUNT 377 K/MM3 (134-434); RBC 2.64 M/mm3 (4.00-5.60); RDW 16.2 % (11.9-15.9); WHITE BLOOD COUNT 6.2 K/mm3 (4.0-10.0)
[2018-11-16] MEDS: INSULIN SLIDING SCALE (NOVOLOG) 1 VIAL SQ SCH ×3 (07:33→16:52)
[2018-11-16 08:26] LABS: ALBUMIN 1.9 g/dl (3.4-5.0); ALK PHOS 106 U/L (45-117); ANION GAP 8 MMOL/L (8-16); BILIRUBIN,TOTAL 0.4 mg/dL (0.2-1); BLOOD UREA NITROGEN 19 mg/dL (7-18); CALCIUM 8.1 mg/dL (8.5-10.1); CHLORIDE 102 mmol/L (98-107); CO2 30 mmol/L (21-32); CREATININE 5.2 mg/dL (0.55-1.3); GLUCOSE,RANDOM 104 mg/dL (74-106); POTASSIUM 3.4 mmol/L (3.5-5.1); SGOT/AST 11 U/L (15-37); SGPT/ALT 7 U/L (13-61); SODIUM 140 mmol/L (136-145); TOT PROT 7.3 g/dl (6.4-8.2)
[2018-11-16] MEDS ORDERED: EPOETIN ALFA 10,000 UNIT/1 ML VIAL IVPUSH ONE (10:15)
--- NOTE | 2018-11-16 11:11 | PN ---
Progress Note, Physician History of Present Illness: Pt seen and examined at bedside. He is more awake and alert. He is tolerating HD. He does remain confused. - Current Medication List Current Medications: Active Medications Acetaminophen (Tylenol Oral Solution -) 650 mg NGT Q6H PRN PRN Reason: FEVER Last Admin: 11/08/18 21:35 Dose: 650 mg Collagenase (Santyl -) 1 applic TP DAILY [facility]; Protocol Last Admin: 11/15/18 13:23 Dose: 1 applic Heparin Sodium (Porcine) (Heparin -) 1,000 unit IVPUSH PRN PRN PRN Reason: Heparin Heparin Sodium (Porcine) (Heparin -) 5,000 unit IVPUSH PRN PRN PRN Reason: Heparin Last Admin: 11/15/18 23:10 Dose: 5,000 unit Ceftaroline Fosamil 200 mg/ (Dextrose) 100 mls @ 200 mls/hr IVPB BID [facility]; Protocol Last Admin: 11/15/18 20:59 Dose: 200 mls/hr Daptomycin 760 mg/ Sodium (Chloride) 100 mls @ 200 mls/hr IVPB Q48H [facility]; Protocol Last Admin: 11/14/18 15:58 Dose: 200 mls/hr Heparin Sodium/Dextrose (Heparin Infusion -) 25,000 units in 500 mls @ 20 mls/ hr IV TITR [facility]; Protocol Last Titration: 11/15/18 23:15 Dose: 1,150 units/hr, 23 mls/hr Sodium Chloride (Normal Saline -) 250 mls @ 3,000 mls/hr IV PRN PRN PRN Reason: Hypotension during Dialysis Stop: 11/16/18 16:17 Insulin Aspart (Novolog Vial Sliding Scale -) 1 vial SQ TIDAC [facility]; Protocol Last Admin: 11/16/18 07:33 Dose: Not Given Metoprolol Tartrate (Lopressor Injection -) 2.5 mg IVPUSH Q6H PRN PRN Reason: TACHYCARDIA Pantoprazole Sodium (Protonix Iv) 40 mg IVPUSH DAILY [facility] Last Admin: 11/15/18 10:09 Dose: 40 mg - Objective Vital Signs: Vital Signs Temperature 98.5 F 11/16/18 09:35 Pulse Rate 88 11/16/18 09:40 Respiratory Rate 18 11/16/18 09:40 Blood Pressure 120/66 11/16/18 09:40 O2 Sat by Pulse Oximetry (%) 94 L 11/15/18 21:00 Constitutional: Yes: Calm Eyes: Yes: Conjunctiva Clear HENT: Yes: Atraumatic Cardiovascular: Yes: S1, S2 Respiratory: Yes: CTA Bilaterally Gastrointestinal: Yes: Soft Genitourinary: Yes: Incontinence Musculoskeletal: Yes: WNL Edema: No Neurological: Yes: Confusion Labs: CBC, BMP 11/16/18 06:00 11/16/18 06:00 INR, PTT INR 1.65 (0.83-1.09) H 11/14/18 11:50 Problem List - Problems (1) Acute hypoxemic respiratory failure Code(s): J96.01 - ACUTE RESPIRATORY FAILURE WITH HYPOXIA (2) ESRD (end stage renal disease) Code(s): N18.6 - END STAGE RENAL DISEASE (3) Sepsis Code(s): A41.9 - SEPSIS, UNSPECIFIED ORGANISM Qualifiers: Sepsis type: sepsis due to unspecified organism Qualified Code(s): A41.9 - Sepsis, unspecified organism Assessment/Plan Current Medications Generic Name Dose Route Start Last Admin Trade Name Freq PRN Reason Stop Dose Admin Acetaminophen 650 mg 11/08/18 20:31 11/08/18 21:35 Tylenol Oral Solution - NGT 650 mg Q6H PRN Administration FEVER Collagenase 1 applic 11/07/18 10:00 11/15/18 13:23 Santyl - TP 1 applic DAILY [facility] Administration Protocol Heparin Sodium (Porcine) 1,000 unit 11/15/18 12:51 Heparin - IVPUSH PRN PRN Heparin Heparin Sodium (Porcine) 5,000 unit 11/15/18 12:52 11/15/18 23:10 Heparin - IVPUSH 5,000 unit PRN PRN Administration Heparin Ceftaroline Fosamil 200 mg/ 100 mls @ 200 mls/hr 11/07/18 10:00 11/15/18 20: 59 Dextrose IVPB 200 mls/hr BID [facility] Administration Protocol Daptomycin 760 mg/ Sodium 100 mls @ 200 mls/hr 11/08/18 13:00 11/14/18 15:58 Chloride IVPB 200 mls/hr Q48H [facility] Administration Protocol Heparin Sodium/Dextrose 25,000 units in 500 mls @ 20 mls/hr 11/15/18 13:00 23:15 Heparin Infusion - IV 1,150 units/hr TITR [facility] 23 mls/hr Titration Protocol 1,000 UNITS/HR Sodium Chloride 250 mls @ 3,000 mls/hr 11/15/18 16:16 Normal Saline - IV 11/16/18 16:17 PRN PRN Hypotension during Dialysis Insulin Aspart 1 vial 11/13/18 16:30 11/16/18 07:33 Novolog Vial Sliding Scale - SQ Not Given TIDAC [facility] Protocol Metoprolol Tartrate 2.5 mg 11/10/18 16:58 Lopressor Injection - IVPUSH Q6H PRN TACHYCARDIA Pantoprazole Sodium 40 mg 11/07/18 10:00 11/15/18 10:09 Protonix Iv IVPUSH 40 mg DAILY [facility] Administration Microbiology 11/09/18 07:00 Blood - Peripheral Venous Blood Culture - Final NO GROWTH AFTER 5 DAYS INCUBATION 11/09/18 06:00 Blood - Peripheral Venous Blood Culture - Final NO GROWTH AFTER 5 DAYS INCUBATION 11/11/18 18:00 Blood - Peripheral Venous Blood Culture - Preliminary NO GROWTH OBTAINED AFTER 96 HOURS, INCUBATION TO CONTINUE FOR 1 DAYS. 11/11/18 17:40 Blood - Peripheral Venous Blood Culture - Preliminary NO GROWTH OBTAINED AFTER 96 HOURS, INCUBATION TO CONTINUE FOR 1 DAYS. Impression 1. ESRD 2. acute rep failure 3. DM 4. hyperlipidemia 5. HTN 6. gout 7. proteinuria 8. hypotension/shock 9. sepsis 10. bacteremia Plan - HD today - abx per ID - cont wound care - epogen for anemia - repeat labs in am - renal diet - will follow
--- NOTE | 2018-11-16 11:42 | PN ---
Progress Note, JELLY MAKER - Note Progress Note: Selected Entries 11/14/18 11/14/18 11/14/18 02:00 06:27 10:00 Temperature 98.3 F 98.5 F 97.9 F 11/14/18 11/14/18 11/15/18 18:00 18:50 02:00 Temperature 97.9 F 97.8 F 98.1 F 11/15/18 11/15/18 06:00 10:00 Temperature 98.1 F 98.7 F Laboratory Tests 11/15/18 07:00 WBC 5.5 Selected Entries 11/16/18 11/16/18 11/16/18 02:00 06:00 09:35 Breakfast 50% Diet Tolerated Well Temperature 97.5 F L 98 F 98.5 F Laboratory Tests 11/16/18 06:00 WBC 6.2 Receiving HD. Needs assist with meals. Continue modified diet. Do not upgrade at this time. Tolerating diet.Fair appetite. Encourage supplements b/n meals.
--- NOTE | 2018-11-16 12:50 | PN ---
Progress Note (short form) - Note Progress Note: PULMONARY HD UNDERWAY WILL REMOVE 2 KILOS VSS Constitutional: Yes: Well Nourished, Calm Eyes: Yes: WNL HENT: Yes: WNL Neck: Yes: WNL Cardiovascular: Yes: Pulse Irregular, S1, S2 Respiratory: Yes: CTA Bilaterally Gastrointestinal: Yes: Normal Bowel Sounds, Soft Extremities: Yes: WNL Edema: Yes Labs: REVIEWED ASSESSMENT AND PLAN: s/p Acute Hypoxic Respiratory Failure Pneumonia clinically improved Diabetic Foot Ulcer Infection MRSA Bacteremia S/P Septic Shock ESRD on HD Lactic Acidosis +Troponins likely Demand Ischemia Supratherapeutic INR corrected Atrial Fibrillation h/o CVA Severe Mitral Regurgitation HTN DM COPD - antibiotics per ID - local wound care - AC as per inr - rate control - HD per renal - O2 as needed to maintain SpO2 >90% - Aspiration precautions - DVT/GI prophylaxis Taylor TAYLOR MD
--- NOTE | 2018-11-16 12:58 | PN ---
Progress Note, Physician Chief Complaint: currently getting HD awake - Current Medication List Current Medications: Active Medications Acetaminophen (Tylenol Oral Solution -) 650 mg NGT Q6H PRN PRN Reason: FEVER Last Admin: 11/08/18 21:35 Dose: 650 mg Collagenase (Santyl -) 1 applic TP DAILY [facility]; Protocol Last Admin: 11/15/18 13:23 Dose: 1 applic Heparin Sodium (Porcine) (Heparin -) 1,000 unit IVPUSH PRN PRN PRN Reason: Heparin Heparin Sodium (Porcine) (Heparin -) 5,000 unit IVPUSH PRN PRN PRN Reason: Heparin Last Admin: 11/15/18 23:10 Dose: 5,000 unit Ceftaroline Fosamil 200 mg/ (Dextrose) 100 mls @ 200 mls/hr IVPB BID [facility]; Protocol Last Admin: 11/15/18 20:59 Dose: 200 mls/hr Daptomycin 760 mg/ Sodium (Chloride) 100 mls @ 200 mls/hr IVPB Q48H [facility]; Protocol Last Admin: 11/14/18 15:58 Dose: 200 mls/hr Heparin Sodium/Dextrose (Heparin Infusion -) 25,000 units in 500 mls @ 20 mls/ hr IV TITR [facility]; Protocol Last Titration: 11/15/18 23:15 Dose: 1,150 units/hr, 23 mls/hr Sodium Chloride (Normal Saline -) 250 mls @ 3,000 mls/hr IV PRN PRN PRN Reason: Hypotension during Dialysis Stop: 11/16/18 16:17 Insulin Aspart (Novolog Vial Sliding Scale -) 1 vial SQ TIDAC [facility]; Protocol Last Admin: 11/16/18 07:33 Dose: Not Given Metoprolol Tartrate (Lopressor Injection -) 2.5 mg IVPUSH Q6H PRN PRN Reason: TACHYCARDIA Pantoprazole Sodium (Protonix Iv) 40 mg IVPUSH DAILY [facility] Last Admin: 11/15/18 10:09 Dose: 40 mg - Objective Vital Signs: Vital Signs Temperature 98.5 F 11/16/18 09:35 Pulse Rate 98 H 11/16/18 11:10 Respiratory Rate 18 11/16/18 11:10 Blood Pressure 116/59 L 11/16/18 11:10 O2 Sat by Pulse Oximetry (%) 94 L 11/15/18 21:00 Constitutional: Yes: Calm Cardiovascular: Yes: Regular Rate and Rhythm, S1, S2 Respiratory: Yes: CTA Bilaterally Gastrointestinal: Yes: Normal Bowel Sounds, Soft Edema: No Labs: CBC, BMP 11/16/18 06:00 11/16/18 06:00 INR, PTT INR 1.65 (0.83-1.09) H 11/14/18 11:50 Problem List - Problems (1) Sepsis Assessment/Plan: Microbiology 10/31/18 12:43 Catheter Site Gram Stain - Final 10/30/18 15:00 Sputum - Endotrachea Suction/Ventilator Gram Stain - Final 10/31/18 12:43 Catheter Site Wound Culture - Preliminary Staphylococcus Latex Coag Pos 10/30/18 15:00 Sputum - Endotrachea Suction/Ventilator Sputum Culture - Preliminary Lactose Fermenting Neg Bacilli Presumptive Mrsa (Pbp2a Pos) 10/30/18 13:00 Blood - Pre-Dialysis Blood Culture - Preliminary Staphylococcus Latex Coag Pos 10/30/18 10:40 Blood - Peripheral Venous Blood Culture - Preliminary Staphylococcus Latex Coag Pos echo done no vegetation daptomycin ceftraloline Microbiology 10/31/18 12:43 Catheter Site Gram Stain - Final 10/31/18 12:43 Catheter Site Wound Culture - Final Mr S Aureus 11/01/18 05:45 Blood - Peripheral Venous Blood Culture - Preliminary Pending Organism 11/01/18 05:30 Blood - Peripheral Venous Blood Culture - Preliminary Pending Organism off pressers Microbiology 11/05/18 05:40 Blood - Peripheral Venous Blood Culture - Final Presumptive Mrsa (Pbp2a Pos) 11/05/18 05:30 Blood - Peripheral Venous Blood Culture - Final Mr S Aureus 11/03/18 05:05 Blood - Peripheral Venous Blood Culture - Final Mr S Aureus 11/03/18 05:05 Blood - Peripheral Venous Blood Culture - Final Mr S Aureus 11/01/18 05:45 Blood - Peripheral Venous Blood Culture - Final Mr S Aureus decreased wbc count today no fever will scan the spine to look for posible absces vs discitis- negative scans for discitis CT chest shows infilrate in rihgt lower lobe seen by swallow team Code(s): A41.9 - SEPSIS, UNSPECIFIED ORGANISM Qualifiers: Sepsis type: sepsis due to unspecified organism Qualified Code(s): A41.9 - Sepsis, unspecified organism (2) Acute hypoxemic respiratory failure Assessment/Plan: resolved Code(s): J96.01 - ACUTE RESPIRATORY FAILURE WITH HYPOXIA (3) Supratherapeutic INR Assessment/Plan: couamdin was held bc decreased po intake was on heparin drip which was held for permacath placement yesterday will restart iv heparin drip for afib Code(s): R79.1 - ABNORMAL COAGULATION PROFILE (4) ESRD (end stage renal disease) Assessment/Plan: HD per renal- today epogen Code(s): N18.6 - END STAGE RENAL DISEASE (5) Wound, open, foot Assessment/Plan: podiatry wound care [facility] Code(s): S91.309A - UNSPECIFIED OPEN WOUND, UNSPECIFIED FOOT, INITIAL ENCOUNTER Qualifiers: Laterality: right
[2018-11-16] MEDS: PANTOPRAZOLE SODIUM 40 MG VIAL IVPUSH SCH (14:05)
[2018-11-16] MEDS: CEFTAROLINE FOSAMIL ACETATE 200 MG in DEXTROSE 5%-WATER - 100 ML IVPB SCH ×2 (14:05→21:32)
[2018-11-16] MEDS ORDERED: PT OWN MED DRAWER 7, Y5N ONE ×3 (14:16→18:40)
[2018-11-16] MEDS: HEPARIN INFUSION - 25,000 UNITS/500 ML INFUS.BAG IV SCH (15:04)
[2018-11-16] MEDS: COLLAGENASE CLOSTRIDIUM HIST. 30 GRAMS TUBE TP SCH (15:05)
[2018-11-16] MEDS: SODIUM CHLORIDE IVPB SCH (15:13)
[2018-11-16] MEDS: DAPTOMYCIN IVPB SCH (15:13)
--- NOTE | 2018-11-16 15:30 | PN ---
Progress Note, Physician Chief Complaint: CONFUSED TODAY NO ACUTE DISTRESS DENIES PAIN AFEBRILE REPEAT BC NO GROWTH - Current Medication List Current Medications: Active Medications Acetaminophen (Tylenol Oral Solution -) 650 mg NGT Q6H PRN PRN Reason: FEVER Last Admin: 11/08/18 21:35 Dose: 650 mg Collagenase (Santyl -) 1 applic TP DAILY [facility]; Protocol Last Admin: 11/16/18 15:05 Dose: 1 applic Heparin Sodium (Porcine) (Heparin -) 1,000 unit IVPUSH PRN PRN PRN Reason: Heparin Heparin Sodium (Porcine) (Heparin -) 5,000 unit IVPUSH PRN PRN PRN Reason: Heparin Last Admin: 11/15/18 23:10 Dose: 5,000 unit Ceftaroline Fosamil 200 mg/ (Dextrose) 100 mls @ 200 mls/hr IVPB BID [facility]; Protocol Last Admin: 11/16/18 14:05 Dose: 200 mls/hr Daptomycin 760 mg/ Sodium (Chloride) 100 mls @ 200 mls/hr IVPB Q48H [facility]; Protocol Last Admin: 11/14/18 15:58 Dose: 200 mls/hr Heparin Sodium/Dextrose (Heparin Infusion -) 25,000 units in 500 mls @ 20 mls/ hr IV TITR [facility]; Protocol Last Admin: 11/16/18 15:04 Dose: 1,150 units/hr, 23 mls/hr Sodium Chloride (Normal Saline -) 250 mls @ 3,000 mls/hr IV PRN PRN PRN Reason: Hypotension during Dialysis Stop: 11/16/18 16:17 Insulin Aspart (Novolog Vial Sliding Scale -) 1 vial SQ TIDAC [facility]; Protocol Last Admin: 11/16/18 14:05 Dose: Not Given Metoprolol Tartrate (Lopressor Injection -) 2.5 mg IVPUSH Q6H PRN PRN Reason: TACHYCARDIA Pantoprazole Sodium (Protonix Iv) 40 mg IVPUSH DAILY [facility] Last Admin: 11/16/18 14:05 Dose: 40 mg - Objective Vital Signs: Vital Signs Temperature 98.5 F 11/16/18 09:35 Pulse Rate 92 H 11/16/18 12:45 Respiratory Rate 18 11/16/18 12:45 Blood Pressure 133/80 11/16/18 12:45 O2 Sat by Pulse Oximetry (%) 94 L 11/15/18 21:00 Constitutional: Yes: No Distress Cardiovascular: Yes: Regular Rate and Rhythm, S1, S2 Respiratory: Yes: Diminished Gastrointestinal: Yes: Normal Bowel Sounds, Soft. No: Tenderness Extremities: Yes: Other (+ FOOT ULCERS) Labs: CBC, BMP 11/16/18 06:00 11/16/18 06:00 INR, PTT INR 1.65 (0.83-1.09) H 11/14/18 11:50 Assessment/Plan SEPSIS/ SEPTIC SHOCK RESOLVED STAPH BACTEREMIA MRSA ? FOOT SOURCE ? CATHETER RESP FAILURE S/P EXTUBATION ACUTE EXACERBATION COPD ? 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
[2018-11-17] MEDS: INSULIN SLIDING SCALE (NOVOLOG) 1 VIAL SQ SCH (06:19)
[2018-11-17 08:03] LABS: BASO % 2.4 % (0-2.0); EOS % 5.5 % (0-4.5); HEMATOCRIT 25.1 % (35.4-49); HEMOGLOBIN 8.2 GM/dL (11.7-16.9); LYMPH % 25.5 % (8-40); MCH 30.4 pg (25.7-33.7); MCHC 32.8 g/dl (32.0-35.9); MEAN CELL VOLUME 92.6 fl (80-96); MEAN PLT VOLUME 8.1 fl (7.5-11.1); MONO % 10.6 % (3.8-10.2); PLATELET COUNT 379 K/MM3 (134-434); RBC 2.71 M/mm3 (4.00-5.60); RDW 15.9 % (11.9-15.9)
--- NOTE | 2018-11-17 08:35 | PN ---
Progress Note, Physician Chief Complaint: Sepsis ESRD Anemia Bacteremia Acute respiratory failure History of Present Illness: Repeat BC negative so far Seen by ID Still on IV Ceftaroline and Daptomycin Renal function improved Seen by nephrology S/P permacath+ HD Seen by Podiatry for Right ankle/foot wound PO intake improved An echocardiogram doen 10/31 showed normal LV and RV function. There is mild TV and MV thickening but no vegetations were seen. There is moderate to severe MR and moderate TR. - Current Medication List Current Medications: Active Medications Acetaminophen (Tylenol Oral Solution -) 650 mg NGT Q6H PRN PRN Reason: FEVER Last Admin: 11/08/18 21:35 Dose: 650 mg Apixaban (Eliquis -) 5 mg PO BID [facility] Collagenase (Santyl -) 1 applic TP DAILY [facility]; Protocol Last Admin: 11/16/18 15:05 Dose: 1 applic Heparin Sodium (Porcine) (Heparin -) 1,000 unit IVPUSH PRN PRN PRN Reason: Heparin Heparin Sodium (Porcine) (Heparin -) 5,000 unit IVPUSH PRN PRN PRN Reason: Heparin Last Admin: 11/15/18 23:10 Dose: 5,000 unit Ceftaroline Fosamil 200 mg/ (Dextrose) 100 mls @ 200 mls/hr IVPB BID [facility]; Protocol Last Admin: 11/16/18 21:32 Dose: 200 mls/hr Daptomycin 760 mg/ Sodium (Chloride) 100 mls @ 200 mls/hr IVPB Q48H [facility]; Protocol Last Admin: 11/16/18 15:13 Dose: 200 mls/hr Insulin Aspart (Novolog Vial Sliding Scale -) 1 vial SQ TIDAC [facility]; Protocol Last Admin: 11/17/18 06:19 Dose: Not Given Metoprolol Tartrate (Lopressor Injection -) 2.5 mg IVPUSH Q6H PRN PRN Reason: TACHYCARDIA Pantoprazole Sodium (Protonix Iv) 40 mg IVPUSH DAILY [facility] Last Admin: 11/16/18 14:05 Dose: 40 mg - Objective Vital Signs: Vital Signs Temperature 97.8 F 11/17/18 06:00 Pulse Rate 93 H 11/17/18 06:00 Respiratory Rate 18 11/17/18 06:00 Blood Pressure 125/59 L 11/17/18 06:00 O2 Sat by Pulse Oximetry (%) 99 11/16/18 21:05 Constitutional: Yes: Well Nourished, No Distress, Calm Cardiovascular: Yes: Regular Rate and Rhythm Respiratory: Yes: Regular Gastrointestinal: Yes: Normal Bowel Sounds, Soft Genitourinary: Yes: WNL Musculoskeletal: Yes: Muscle Weakness Edema: No Peripheral Pulses WNL: Yes Wound/Incision: Yes: Dressing Dry and Intact Neurological: Yes: Alert, Pre-Existing Deficit Psychiatric: Yes: Alert Labs: CBC, BMP 11/17/18 06:30 INR, PTT INR 1.65 (0.83-1.09) H 11/14/18 11:50 Problem List - Problems (1) Anemia Assessment/Plan: -Guaiac negative -10/27 to ESR vs iron deficiency -monitor trend -normal transfusion parameters -Transfuse if Hg<7.0 to avoid fluid overload -Awaiting labs today -Epogen ordered by nephrology Code(s): D64.9 - ANEMIA, UNSPECIFIED (2) ESRD (end stage renal disease) Assessment/Plan: -Nephrology on board -Dialysis as per nephrology -S/P Perma Cath Code(s): N18.6 - END STAGE RENAL DISEASE (3) MRSA (methicillin resistant staph aureus) culture positive Assessment/Plan: -Repeat culture negative so far -ID on board -IV Daptomycin + Ceftaroline -afebrile -no leukocytosis Code(s): Z22.322 - CARRIER OR SUSPECTED CARRIER OF METHICILLIN RESIS STAPH (4) Sepsis Assessment/Plan: -Repeat culture negative so far -ID on board -IV Daptomycin + Ceftaroline -afebrile -no leukocytosis -repeat labs pending Code(s): A41.9 - SEPSIS, UNSPECIFIED ORGANISM Qualifiers: Sepsis type: sepsis due to unspecified organism Qualified Code(s): A41.9 - Sepsis, unspecified organism (5) Toxic metabolic encephalopathy Code(s): G92 - TOXIC ENCEPHALOPATHY (6) Venous stasis ulcer of right lower extremity Assessment/Plan: -Seen by Podiatry Code(s): I83.019 - VARICOSE VEINS OF RIGHT LOWER EXTREMITY W ULCER OF UNSP SITE ; L97.919 - NON-PRS CHRONIC ULC UNSP PRT OF R LOW LEG W UNSP SEVERITY (7) A-fib Assessment/Plan: -Controlled -An echocardiogram doen 10/31 showed normal LV and RV function. There is mild TV and MV thickening but no vegetations were seen. There is moderate to severe MR and moderate TR. -Candidate for NOAC -D/C heparin, start Eliquis 5 mg po bid, no adjustment needed in light of HD Code(s): I48.91 - UNSPECIFIED ATRIAL FIBRILLATION (8) Diabetes Assessment/Plan: -Last A1c at 6.6 -repeat A1c 5.4 -D/C BGM AC HS and Novolog sliding scale Code(s): E11.9 - TYPE 2 DIABETES MELLITUS WITHOUT COMPLICATIONS Qualifiers: Diabetes mellitus type: type 2 Assessment/Plan See problem list Physical therapy D/C back to [facility] once cleared by ID and Nephrology
[2018-11-17 08:38] LABS: ALK PHOS 110 U/L (45-117); ANION GAP 6 MMOL/L (8-16); BILIRUBIN,TOTAL 0.4 mg/dL (0.2-1); BLOOD UREA NITROGEN 13 mg/dL (7-18); CALCIUM 8.3 mg/dL (8.5-10.1); CHLORIDE 102 mmol/L (98-107); CO2 32 mmol/L (21-32); CREATININE 3.9 mg/dL (0.55-1.3); GLUCOSE,RANDOM 106 mg/dL (74-106); POTASSIUM 3.8 mmol/L (3.5-5.1); SGOT/AST 8 U/L (15-37); SGPT/ALT 7 U/L (13-61); SODIUM 140 mmol/L (136-145); TOT PROT 7.7 g/dl (6.4-8.2)
[2018-11-17] MEDS ORDERED: PT OWN MED DRAWER 7, Y5N ONE (10:10)
[2018-11-17] MEDS: PANTOPRAZOLE SODIUM 40 MG VIAL IVPUSH SCH (10:15)
[2018-11-17] MEDS: APIXABAN 5 MG TABLET PO SCH ×2 (10:15→23:18)
[2018-11-17] MEDS: COLLAGENASE CLOSTRIDIUM HIST. 30 GRAMS TUBE TP SCH (10:15)
[2018-11-17] MEDS: CEFTAROLINE FOSAMIL ACETATE 200 MG in DEXTROSE 5%-WATER - 100 ML IVPB SCH ×2 (10:33→23:18)
--- NOTE | 2018-11-17 11:35 | PN ---
Progress Note (short form) - Note Progress Note: PULMONARY APPEARS STABLE HAD HD YESTERDAY VSS Constitutional: Yes: Well Nourished, Calm Eyes: Yes: WNL HENT: Yes: WNL Neck: Yes: WNL Cardiovascular: Yes: Pulse Irregular, S1, S2 Respiratory: Yes: CTA Bilaterally Gastrointestinal: Yes: Normal Bowel Sounds, Soft Extremities: Yes: WNL Edema: Yes Labs: REVIEWED ASSESSMENT AND PLAN: s/p Acute Hypoxic Respiratory Failure Pneumonia clinically improved Diabetic Foot Ulcer Infection MRSA Bacteremia S/P Septic Shock ESRD on HD Lactic Acidosis +Troponins likely Demand Ischemia Supratherapeutic INR corrected Atrial Fibrillation h/o CVA Severe Mitral Regurgitation HTN DM COPD - antibiotics per ID - local wound care - AC as per inr - rate control - HD per renal - O2 as needed to maintain SpO2 >90% - Aspiration precautions - DVT/GI prophylaxis Taylor TAYLOR MD
[2018-11-17 12:12] LABS: HEMATOCRIT 25.8 % (35.4-49); HEMOGLOBIN 8.6 GM/dL (11.7-16.9); MCH 31.2 pg (25.7-33.7); MCHC 33.3 g/dl (32.0-35.9); MEAN CELL VOLUME 93.9 fl (80-96); MEAN PLT VOLUME 8.1 fl (7.5-11.1); PLATELET COUNT 379 K/MM3 (134-434); RBC 2.75 M/mm3 (4.00-5.60); WHITE BLOOD COUNT 6.1 K/mm3 (4.0-10.0)
[2018-11-17] MEDS: ACETAMINOPHEN 650 MG/20.3 ML ORAL SOLUTION (CUPS) NGT PRN (14:47)
--- NOTE | 2018-11-17 16:48 | PN ---
Progress Note (short form) - Note Progress Note: Impression 1. ESRD 2. acute rep failure 3. DM 4. hyperlipidemia 5. HTN 6. gout 7. proteinuria 8. hypotension/shock 9. sepsis 10. bacteremia Current Medications Acetaminophen (Tylenol Oral Solution -) 650 mg NGT Q6H PRN PRN Reason: FEVER Last Admin: 11/17/18 14:47 Dose: 650 mg Apixaban (Eliquis -) 5 mg PO BID [facility] Last Admin: 11/17/18 10:15 Dose: 5 mg Collagenase (Santyl -) 1 applic TP DAILY [facility]; Protocol Last Admin: 11/17/18 10:15 Dose: 1 applic Ceftaroline Fosamil 200 mg/ (Dextrose) 100 mls @ 200 mls/hr IVPB BID [facility]; Protocol Last Admin: 11/17/18 10:33 Dose: 200 mls/hr Daptomycin 760 mg/ Sodium (Chloride) 100 mls @ 200 mls/hr IVPB Q48H [facility]; Protocol Last Admin: 11/16/18 15:13 Dose: 200 mls/hr Metoprolol Tartrate (Lopressor Injection -) 2.5 mg IVPUSH Q6H PRN PRN Reason: TACHYCARDIA Pantoprazole Sodium (Protonix Iv) 40 mg IVPUSH DAILY [facility] Last Admin: 11/17/18 10:15 Dose: 40 mg Last Vital Signs Temp Pulse Resp BP Pulse Ox 98.9 F 95 H 16 107/54 L 98 11/17/18 14:10 11/17/18 14:10 11/17/18 14:10 11/17/18 14:10 11/17/18 09:00 CBC, BMP 11/17/18 11:52 11/17/18 06:30 Plan - HD monday - abx per ID - cont wound care - epogen for anemia - repeat labs in am - renal diet - will follow
[2018-11-17] MEDS ORDERED: WARFARIN NA 7.5 MG TABLET (FP) PO ONE (18:00)
[2018-11-18 07:52] LABS: BASO % 2.5 % (0-2.0); EOS % 6.5 % (0-4.5); HEMOGLOBIN 7.9 GM/dL (11.7-16.9); MCH 30.5 pg (25.7-33.7); MCHC 32.9 g/dl (32.0-35.9); MEAN CELL VOLUME 92.5 fl (80-96); MEAN PLT VOLUME 8.1 fl (7.5-11.1); MONO % 10.3 % (3.8-10.2); NEUT % 58.7 % (42.8-82.8); PLATELET COUNT 381 K/MM3 (134-434); RDW 16.1 % (11.9-15.9); WHITE BLOOD COUNT 5.9 K/mm3 (4.0-10.0)
[2018-11-18 08:18] LABS: ALK PHOS 100 U/L (45-117); ANION GAP 7 MMOL/L (8-16); BILIRUBIN,TOTAL 0.4 mg/dL (0.2-1); BLOOD UREA NITROGEN 22 mg/dL (7-18); CALCIUM 8.9 mg/dL (8.5-10.1); CHLORIDE 102 mmol/L (98-107); CO2 31 mmol/L (21-32); CREATININE 5.4 mg/dL (0.55-1.3); GLUCOSE,RANDOM 93 mg/dL (74-106); POTASSIUM 4.1 mmol/L (3.5-5.1); SGOT/AST 10 U/L (15-37); SGPT/ALT 7 U/L (13-61); SODIUM 140 mmol/L (136-145); TOT PROT 7.4 g/dl (6.4-8.2)
[2018-11-18] MEDS ORDERED: PT OWN MED DRAWER 7, Y5N ONE (09:37)
[2018-11-18] MEDS: COLLAGENASE CLOSTRIDIUM HIST. 30 GRAMS TUBE TP SCH (09:40)
[2018-11-18] MEDS: CEFTAROLINE FOSAMIL ACETATE 200 MG in DEXTROSE 5%-WATER - 100 ML IVPB SCH ×2 (09:40→21:17)
[2018-11-18] MEDS: PANTOPRAZOLE SODIUM 40 MG VIAL IVPUSH SCH (09:41)
[2018-11-18] MEDS: APIXABAN 5 MG TABLET PO SCH ×2 (09:41→21:17)
--- NOTE | 2018-11-18 11:21 | PN ---
Progress Note (short form) - Note Progress Note: PULMONARY APPEARS STABLE HAD HD MONDAY HGB 7.9 GMS VSS Constitutional: Yes: Well Nourished, Calm Eyes: Yes: WNL HENT: Yes: WNL Neck: Yes: WNL Cardiovascular: Yes: Pulse Irregular, S1, S2 Respiratory: Yes: CTA Bilaterally Gastrointestinal: Yes: Normal Bowel Sounds, Soft Extremities: Yes: WNL Edema: Yes Labs: REVIEWED ASSESSMENT AND PLAN: s/p Acute Hypoxic Respiratory Failure Pneumonia clinically improved Diabetic Foot Ulcer Infection MRSA Bacteremia S/P Septic Shock ESRD on HD Lactic Acidosis +Troponins likely Demand Ischemia Supratherapeutic INR corrected Atrial Fibrillation h/o CVA Severe Mitral Regurgitation HTN DM COPD ANEMIA - antibiotics per ID - local wound care - AC as per inr - rate control - HD per renal - O2 as needed to maintain SpO2 >90% - Aspiration precautions - DVT/GI prophylaxis - keep hgb 8.0 or > R CLAUDIA BISHOP
--- NOTE | 2018-11-18 12:42 | PN ---
Progress Note, Physician Chief Complaint: Sepsis ESRD Anemia Bacteremia Acute respiratory failure History of Present Illness: Repeat BC negative so far Seen by ID Still on IV Ceftaroline and Daptomycin Renal function improved Seen by nephrology S/P permacath+ HD Seen by Podiatry for Right ankle/foot wound PO intake improved An echocardiogram doen 10/31 showed normal LV and RV function. There is mild TV and MV thickening but no vegetations were seen. There is moderate to severe MR and moderate TR. - Current Medication List Current Medications: Active Medications Acetaminophen (Tylenol Oral Solution -) 650 mg NGT Q6H PRN PRN Reason: FEVER Last Admin: 11/17/18 14:47 Dose: 650 mg Apixaban (Eliquis -) 5 mg PO BID [facility] Last Admin: 11/18/18 09:41 Dose: 5 mg Collagenase (Santyl -) 1 applic TP DAILY [facility]; Protocol Last Admin: 11/18/18 09:40 Dose: 1 applic Ceftaroline Fosamil 200 mg/ (Dextrose) 100 mls @ 200 mls/hr IVPB BID [facility]; Protocol Last Admin: 11/18/18 09:40 Dose: 200 mls/hr Daptomycin 760 mg/ Sodium (Chloride) 100 mls @ 200 mls/hr IVPB Q48H [facility]; Protocol Last Admin: 11/16/18 15:13 Dose: 200 mls/hr Metoprolol Tartrate (Lopressor Injection -) 2.5 mg IVPUSH Q6H PRN PRN Reason: TACHYCARDIA Pantoprazole Sodium (Protonix Iv) 40 mg IVPUSH DAILY [facility] Last Admin: 11/18/18 09:41 Dose: 40 mg - Objective Vital Signs: Vital Signs Temperature 98.5 F 11/18/18 06:00 Pulse Rate 84 11/18/18 06:00 Respiratory Rate 18 11/18/18 06:00 Blood Pressure 121/59 L 11/18/18 06:00 O2 Sat by Pulse Oximetry (%) 97 11/17/18 21:00 Constitutional: Yes: Well Nourished, No Distress, Calm Cardiovascular: Yes: Regular Rate and Rhythm Respiratory: Yes: Regular Gastrointestinal: Yes: Normal Bowel Sounds, Soft Genitourinary: Yes: WNL Musculoskeletal: Yes: Muscle Weakness Extremities: Yes: WNL Edema: No Peripheral Pulses WNL: Yes Neurological: Yes: Alert, Pre-Existing Deficit Psychiatric: Yes: Alert Labs: CBC, BMP 11/18/18 06:00 11/18/18 06:00 INR, PTT INR 1.65 (0.83-1.09) H 11/14/18 11:50 Problem List - Problems (1) Anemia Assessment/Plan: -Guaiac negative -2/2 to ESR vs iron deficiency -monitor trend -normal transfusion parameters -Transfuse if Hg<7.0 to avoid fluid overload -Awaiting labs today -Epogen ordered by nephrology Code(s): D64.9 - ANEMIA, UNSPECIFIED (2) ESRD (end stage renal disease) Assessment/Plan: -Nephrology on board -Dialysis as per nephrology -S/P Perma Cath Code(s): N18.6 - END STAGE RENAL DISEASE (3) MRSA (methicillin resistant staph aureus) culture positive Assessment/Plan: -Repeat culture negative so far -ID on board -IV Daptomycin + Ceftaroline- ID to decide duration of treatment -afebrile -no leukocytosis Code(s): Z22.322 - CARRIER OR SUSPECTED CARRIER OF METHICILLIN RESIS STAPH (4) Sepsis Assessment/Plan: -Repeat culture negative so far -ID on board -IV Daptomycin + Ceftaroline -afebrile -no leukocytosis -repeat labs pending Code(s): A41.9 - SEPSIS, UNSPECIFIED ORGANISM Qualifiers: Sepsis type: sepsis due to unspecified organism Qualified Code(s): A41.9 - Sepsis, unspecified organism (5) Toxic metabolic encephalopathy Code(s): G92 - TOXIC ENCEPHALOPATHY (6) Venous stasis ulcer of right lower extremity Assessment/Plan: -Seen by Podiatry Code(s): I83.019 - VARICOSE VEINS OF RIGHT LOWER EXTREMITY W ULCER OF UNSP SITE ; L97.919 - NON-PRS CHRONIC ULC UNSP PRT OF R LOW LEG W UNSP SEVERITY (7) A-fib Assessment/Plan: -Controlled -An echocardiogram doen 10/31 showed normal LV and RV function. There is mild TV and MV thickening but no vegetations were seen. There is moderate to severe MR and moderate TR. -Candidate for NOAC -D/C heparin, start Eliquis 5 mg po bid, no adjustment needed in light of HD Code(s): I48.91 - UNSPECIFIED ATRIAL FIBRILLATION (8) Diabetes Assessment/Plan: -Last A1c at 6.6 -repeat A1c 5.4 -D/C BGM AC HS and Novolog sliding scale Code(s): E11.9 - TYPE 2 DIABETES MELLITUS WITHOUT COMPLICATIONS Qualifiers: Diabetes mellitus type: type 2 Assessment/Plan See problem list Physical therapy D/C back to [facility] once cleared by ID and Nephrology
[2018-11-18] MEDS: SODIUM CHLORIDE IVPB SCH (14:46)
[2018-11-18] MEDS: DAPTOMYCIN IVPB SCH (14:46)
--- NOTE | 2018-11-18 21:41 | PN ---
Progress Note (short form) - Note Progress Note: Impression 1. ESRD 2. acute rep failure 3. DM 4. hyperlipidemia 5. HTN 6. gout 7. proteinuria 8. hypotension/shock 9. sepsis 10. bacteremia Current Medications Acetaminophen (Tylenol Oral Solution -) 650 mg NGT Q6H PRN PRN Reason: FEVER Last Admin: 11/17/18 14:47 Dose: 650 mg Apixaban (Eliquis -) 5 mg PO BID [facility] Last Admin: 11/17/18 10:15 Dose: 5 mg Collagenase (Santyl -) 1 applic TP DAILY [facility]; Protocol Last Admin: 11/17/18 10:15 Dose: 1 applic Ceftaroline Fosamil 200 mg/ (Dextrose) 100 mls @ 200 mls/hr IVPB BID [facility]; Protocol Last Admin: 11/17/18 10:33 Dose: 200 mls/hr Daptomycin 760 mg/ Sodium (Chloride) 100 mls @ 200 mls/hr IVPB Q48H [facility]; Protocol Last Admin: 11/16/18 15:13 Dose: 200 mls/hr Metoprolol Tartrate (Lopressor Injection -) 2.5 mg IVPUSH Q6H PRN PRN Reason: TACHYCARDIA Pantoprazole Sodium (Protonix Iv) 40 mg IVPUSH DAILY [facility] Last Admin: 11/17/18 10:15 Dose: 40 mg Last Vital Signs Temp Pulse Resp BP Pulse Ox 98.9 F 95 H 16 107/54 L 98 11/17/18 14:10 11/17/18 14:10 11/17/18 14:10 11/17/18 14:10 11/17/18 09:00 Lungs clear heart reg abd soft nontender ext no edema CBC, BMP 11/18/18 06:00 11/18/18 06:00 CBC, BMP 11/17/18 11:52 11/17/18 06:30 Plan - HD monday - abx per ID - cont wound care - epogen for anemia - repeat labs in am - renal diet - will follow
[2018-11-18] MEDS ORDERED: SODIUM CHLORIDE 250 ML IV PRN (21:51)
[2018-11-19 07:57] LABS: BASO % 1.3 % (0-2.0); EOS % 6.3 % (0-4.5); HEMATOCRIT 26.4 % (35.4-49); HEMOGLOBIN 8.7 GM/dL (11.7-16.9); LYMPH % 17.8 % (8-40); MCH 30.8 pg (25.7-33.7); MCHC 32.8 g/dl (32.0-35.9); MEAN CELL VOLUME 93.8 fl (80-96); MEAN PLT VOLUME 8.3 fl (7.5-11.1); MONO % 10.1 % (3.8-10.2); NEUT % 64.5 % (42.8-82.8); PLATELET COUNT 372 K/MM3 (134-434); RBC 2.82 M/mm3 (4.00-5.60); RDW 16.5 % (11.9-15.9); WHITE BLOOD COUNT 7.3 K/mm3 (4.0-10.0)
[2018-11-19 08:15] LABS: ALBUMIN 2.1 g/dl (3.4-5.0); ALK PHOS 108 U/L (45-117); ANION GAP 9 MMOL/L (8-16); BILIRUBIN,TOTAL 0.4 mg/dL (0.2-1); BLOOD UREA NITROGEN 30 mg/dL (7-18); CALCIUM 8.1 mg/dL (8.5-10.1); CHLORIDE 102 mmol/L (98-107); CO2 30 mmol/L (21-32); CREATININE 6.4 mg/dL (0.55-1.3); GLUCOSE,RANDOM 92 mg/dL (74-106); POTASSIUM 4.5 mmol/L (3.5-5.1); SGOT/AST 11 U/L (15-37); SGPT/ALT 8 U/L (13-61); SODIUM 142 mmol/L (136-145); TOT PROT 7.6 g/dl (6.4-8.2)
[2018-11-19] MEDS: PANTOPRAZOLE SODIUM 40 MG VIAL IVPUSH SCH (09:25)
[2018-11-19] MEDS: APIXABAN 5 MG TABLET PO SCH (09:25)
[2018-11-19] MEDS: CEFTAROLINE FOSAMIL ACETATE 200 MG in DEXTROSE 5%-WATER - 100 ML IVPB SCH (09:25)
[2018-11-19] MEDS: ACETAMINOPHEN 650 MG/20.3 ML ORAL SOLUTION (CUPS) NGT PRN (10:06)
--- NOTE | 2018-11-19 10:38 | PN ---
Progress Note (short form) - Note Progress Note: FUV wounds right ankle and foot. Getting dialyzed when I saw him. +chronic wounds right leg, acinobacter on culture, wounds right lower extremity Abx as per ID. Schroeder to all wounds. Will follow.
[2018-11-19 10:45] LABS: HEMATOCRIT 26.1 % (35.4-49); HEMOGLOBIN 8.6 GM/dL (11.7-16.9); MCH 30.8 pg (25.7-33.7); MCHC 32.9 g/dl (32.0-35.9); MEAN CELL VOLUME 93.8 fl (80-96); MEAN PLT VOLUME 7.8 fl (7.5-11.1); PLATELET COUNT 353 K/MM3 (134-434); RBC 2.79 M/mm3 (4.00-5.60); RDW 16.3 % (11.9-15.9); WHITE BLOOD COUNT 6.7 K/mm3 (4.0-10.0)
--- NOTE | 2018-11-19 11:28 | PN ---
Progress Note, Physician History of Present Illness: PULMONARY ALERT,NO DISTRESS,-SOB, ON HD - Current Medication List Current Medications: Active Medications Acetaminophen (Tylenol Oral Solution -) 650 mg NGT Q6H PRN PRN Reason: FEVER Last Admin: 11/19/18 10:06 Dose: 650 mg Apixaban (Eliquis -) 5 mg PO BID [facility] Last Admin: 11/19/18 09:25 Dose: 5 mg Collagenase (Santyl -) 1 applic TP DAILY [facility]; Protocol Last Admin: 11/18/18 09:40 Dose: 1 applic Ceftaroline Fosamil 200 mg/ (Dextrose) 100 mls @ 200 mls/hr IVPB BID [facility]; Protocol Last Admin: 11/19/18 09:25 Dose: 200 mls/hr Daptomycin 760 mg/ Sodium (Chloride) 100 mls @ 200 mls/hr IVPB Q48H [facility]; Protocol Last Admin: 11/18/18 14:46 Dose: 200 mls/hr Sodium Chloride (Normal Saline -) 250 mls @ 3,000 mls/hr IV PRN PRN PRN Reason: Hypotension during Dialysis Stop: 11/19/18 21:51 Metoprolol Tartrate (Lopressor Injection -) 2.5 mg IVPUSH Q6H PRN PRN Reason: TACHYCARDIA Pantoprazole Sodium (Protonix Iv) 40 mg IVPUSH DAILY [facility] Last Admin: 11/19/18 09:25 Dose: 40 mg - Objective Vital Signs: Vital Signs Temperature 97.8 F 11/19/18 10:00 Pulse Rate 81 11/19/18 11:00 Respiratory Rate 18 11/19/18 11:00 Blood Pressure 117/63 11/19/18 11:00 O2 Sat by Pulse Oximetry (%) 97 11/19/18 08:39 Constitutional: Yes: Well Nourished, Calm Eyes: Yes: WNL HENT: Yes: WNL Neck: Yes: WNL Cardiovascular: Yes: Pulse Irregular, S1, S2 Respiratory: Yes: Diminished Gastrointestinal: Yes: Normal Bowel Sounds, Soft Extremities: Yes: WNL Edema: Yes Labs: CBC, BMP 11/19/18 10:25 11/19/18 06:40 INR, PTT INR 1.65 (0.83-1.09) H 11/14/18 11:50 Problem List - Problems (1) MRSA (methicillin resistant staph aureus) culture positive Code(s): Z22.322 - CARRIER OR SUSPECTED CARRIER OF METHICILLIN RESIS STAPH (2) Acute hypoxemic respiratory failure Code(s): J96.01 - ACUTE RESPIRATORY FAILURE WITH HYPOXIA (3) Anemia in chronic illness Code(s): D63.8 - ANEMIA IN OTHER CHRONIC DISEASES CLASSIFIED ELSEWHERE (4) Cellulitis of foot Code(s): L03.119 - CELLULITIS OF UNSPECIFIED PART OF LIMB (5) ESRD (end stage renal disease) Code(s): N18.6 - END STAGE RENAL DISEASE (6) Supratherapeutic INR Code(s): R79.1 - ABNORMAL COAGULATION PROFILE (7) Cellulitis Code(s): L03.90 - CELLULITIS, UNSPECIFIED Qualifiers: Site of cellulitis: extremity Site of cellulitis of extremity: lower extremity Laterality: right Qualified Code(s): L03.115 - Cellulitis of right lower limb (8) Diabetes Code(s): E11.9 - TYPE 2 DIABETES MELLITUS WITHOUT COMPLICATIONS Qualifiers: Diabetes mellitus type: type 2 (9) HTN (hypertension) Code(s): I10 - ESSENTIAL (PRIMARY) HYPERTENSION Qualifiers: Hypertension type: essential hypertension Qualified Code(s): I10 - Essential (primary) hypertension (10) Wound, open, foot Code(s): S91.309A - UNSPECIFIED OPEN WOUND, UNSPECIFIED FOOT, INITIAL ENCOUNTER Qualifiers: Laterality: right Assessment/Plan ASSESSMENT AND PLAN: s/p Acute Hypoxic Respiratory Failure Pneumonia clinically improved Suspected Diabetic Foot Ulcer Infection MRSA Bacteremia S/P Septic Shock ESRD on HD Lactic Acidosis +Troponins likely Demand Ischemia Supratherapeutic INR corrected Atrial Fibrillation h/o CVA Severe Mitral Regurgitation HTN DM COPD - antibiotics per ID - local wound care - AC as per inr - HD per renal - O2 as needed to maintain SpO2 >90% - Aspiration precautions - DVT/GI prophylaxis DR GODINEZ
--- NOTE | 2018-11-19 11:37 | DS ---
Physical Examination Vital Signs: Vital Signs Temperature 97.8 F 11/19/18 10:00 Pulse Rate 81 11/19/18 11:00 Respiratory Rate 18 11/19/18 11:00 Blood Pressure 117/63 11/19/18 11:00 O2 Sat by Pulse Oximetry (%) 97 11/19/18 08:39 Constitutional: Yes: Calm Cardiovascular: Yes: Regular Rate and Rhythm, Tachycardia, S1, S2 Respiratory: Yes: Diminished Gastrointestinal: Yes: Normal Bowel Sounds, Soft Extremities: Yes: Other (foot wpund) Neurological: Yes: Alert (awake responds to his name) Labs: CBC, BMP 11/19/18 10:25 11/19/18 06:40 Discharge Summary Reason For Visit: ANEMIA,ACUTE KINEY DISEASE,RESP FAILURE,INR,VOMITI Current Active Problems A-fib (Acute) Acute hypoxemic respiratory failure (Acute) Anemia (Acute) Anemia in chronic illness (Acute) Cellulitis of foot (Acute) ESRD (end stage renal disease) (Acute) Feeding difficulty (Acute) MRSA (methicillin resistant staph aureus) culture positive (Acute) Sepsis (Acute) Supratherapeutic INR (Acute) Toxic metabolic encephalopathy (Acute) Vomiting (Acute) Hospital Course: - Primary Care Physician PCP: Filippo Clarke - Admission Chief Complaint: sent in for fever History of Present Illness: 73YOM with h/o ESRD on HD MWF last tx was Monday and was normal, DM, HTN, HLD, prior CVA, COPD, and UTI, who was BIBEMS for original EMS phone report of rapid A-fib, but on [facility] records the only note was fever and vomiting x2 this AM.in ER but was hypoxic placed on bipap didnt tolerate and got altered and was intubated he was give 1.5 litres of fluids zofran ,and zosyn and vancomycin hospital course: leyda was in ICU intubated on pressors on iv abx then got extubated moved to telemetry floor patient got permacath palced for HD positve bloodcultures MRSA on daptomycin ceftroline will need another 21 days of abx foot wound follwed by podiatry collagenase aafib was on coumadin came in with supratherapeutic INR now changed to eliquis Condition: Stable - Instructions Diet, Activity, Other Instructions: HD M-W-F collgense daily to foot wound continue abx for 21 day- ceftraloline twice day for 21 days vancomycin on HD days Referrals: Ganesh Miranda MD [Primary Care Provider] - Disposition: [facility] - Home Medications Comprehensive Discharge Medication List: Ambulatory Orders Albuterol 2.5/Ipratropium 0.5 [Duoneb -] 1 amp NEB Q6H PRN #0 amp 07/12/17 Allopurinol [Zyloprim -] 100 mg PO DAILY tablet 07/12/17 Atorvastatin Ca [Lipitor] 20 mg PO HS tablet 07/12/17 Clopidogrel Bisulfate [Plavix -] 75 mg PO DAILY tablet 07/12/17 Collagenase Clostridium Hist. [Santyl -] 250 unit TP DAILY 08/31/18 Lisinopril 10 mg PO DAILY 08/31/18 Collagenase Clostridium Hist. [Santyl -] 1 applic TP DAILY tube 09/06/18 Albuterol Sulfate [Proair Hfa] 2 puff IH Q6H PRN 10/29/18 Escitalopram Oxalate [Lexapro -] 10 mg PO DAILY 10/29/18 Folic Acid/Vit B Complex and C [Dialyvite Tablet] 1 each PO DAILY 10/29/18 Ibuprofen [Advil -] 400 mg PO DAILY 10/29/18 Insulin Lispro [Humalog Kwikpen U-100] 0 unit SQ ACHS 10/29/18 Midodrine HCl 10 mg PO MOWEFR 10/29/18 Sevelamer Carbonate [Renvela -] 1,600 mg PO TID 10/29/18 Tamsulosin HCl [Flomax] 0.4 mg PO HS 10/29/18 Warfarin Sodium [Coumadin] 5.5 mg PO HS 10/29/18 Zinc Oxide 20% Topical Oint 454 gm NR BID 10/29/18 Ceftaroline Fosamil Acetate [Teflaro (Restricted To Id)] 200 mg IVPB BID vial 11/17/18 Daptomycin [Cubicin (Restricted To Id) -] 760 mg IVPB Q48H vial 11/17/18 Insulin Sliding Scale [Novolog Vial Sliding Scale -] 1 vial SQ TIDAC #1 vial
--- NOTE | 2018-11-19 12:38 | PN ---
Progress Note (short form) - Note Progress Note: Please have patient f/u with Dr. Mcneil as out-patient for follow-up for AV Fistula placement
--- NOTE | 2018-11-19 12:47 | PN ---
Progress Note, RN DISCHARGE - Note Progress Note: Selected Entries 11/19/18 11/19/18 11/19/18 02:00 05:29 09:55 Breakfast Temperature 98.3 F 98.2 F 98.2 F 11/19/18 11/19/18 10:00 10:30 Breakfast 75% Temperature 97.8 F Laboratory Tests 11/19/18 06:40 WBC 7.3 Tolerated breakfast well but vomited afterwards, per [employer].
--- NOTE | 2018-11-19 13:40 | PN ---
Progress Note, Physician Chief Complaint: AWAKE, ALERT APPETITE POOR NO ACUTE DISTRESS DENIES PAIN AFEBRILE LAST +BC 11/05 - Current Medication List Current Medications: Active Medications Acetaminophen (Tylenol Oral Solution -) 650 mg NGT Q6H PRN PRN Reason: FEVER Last Admin: 11/19/18 10:06 Dose: 650 mg Apixaban (Eliquis -) 5 mg PO BID [facility] Last Admin: 11/19/18 09:25 Dose: 5 mg Collagenase (Santyl -) 1 applic TP DAILY [facility]; Protocol Last Admin: 11/18/18 09:40 Dose: 1 applic Ceftaroline Fosamil 200 mg/ (Dextrose) 100 mls @ 200 mls/hr IVPB BID [facility]; Protocol Last Admin: 11/19/18 09:25 Dose: 200 mls/hr Daptomycin 760 mg/ Sodium (Chloride) 100 mls @ 200 mls/hr IVPB Q48H [facility]; Protocol Last Admin: 11/18/18 14:46 Dose: 200 mls/hr Sodium Chloride (Normal Saline -) 250 mls @ 3,000 mls/hr IV PRN PRN PRN Reason: Hypotension during Dialysis Stop: 11/19/18 21:51 Metoprolol Tartrate (Lopressor Injection -) 2.5 mg IVPUSH Q6H PRN PRN Reason: TACHYCARDIA Pantoprazole Sodium (Protonix Iv) 40 mg IVPUSH DAILY [facility] Last Admin: 11/19/18 09:25 Dose: 40 mg - Objective Vital Signs: Vital Signs Temperature 97.8 F 11/19/18 10:00 Pulse Rate 99 H 11/19/18 12:30 Respiratory Rate 18 11/19/18 12:30 Blood Pressure 90/53 L 11/19/18 12:30 O2 Sat by Pulse Oximetry (%) 97 11/19/18 08:39 Constitutional: Yes: No Distress Cardiovascular: Yes: Regular Rate and Rhythm, S1, S2 Respiratory: Yes: Diminished Gastrointestinal: Yes: Normal Bowel Sounds, Soft. No: Tenderness Extremities: Yes: Other (DRY ULCERS, FOOT) Labs: CBC, BMP 11/19/18 10:25 11/19/18 06:40 INR, PTT INR 1.65 (0.83-1.09) H 11/14/18 11:50 Assessment/Plan SEPSIS/ SEPTIC SHOCK RESOLVED STAPH BACTEREMIA MRSA ? FOOT SOURCE ? CATHETER RESP FAILURE S/P EXTUBATION NON HEALING FOOT ULCERS + WOUND C/S MRSA/ ACINETOBACTER- LIKLEY COLONIZER REPEAT BC NEGATIVE SUBSTITUTE VANCOMYCIN 1GM IVPB AT EACH HEMODIALYSIS X 4WEEKS MAINTAIN VANCO TROUGH 15-20 RANGE
[2018-11-19] MEDS ORDERED: EPOETIN ALFA 10,000 UNIT/1 ML VIAL SQ ONE (16:00)
--- NOTE | 2018-11-19 16:00 | PN ---
Progress Note, Physician History of Present Illness: Pt seen and examined at bedside. He is awake and appears comfortable. - Current Medication List Current Medications: Active Medications Acetaminophen (Tylenol Oral Solution -) 650 mg NGT Q6H PRN PRN Reason: FEVER Last Admin: 11/19/18 10:06 Dose: 650 mg Apixaban (Eliquis -) 5 mg PO BID [facility] Last Admin: 11/19/18 09:25 Dose: 5 mg Collagenase (Santyl -) 1 applic TP DAILY [facility]; Protocol Last Admin: 11/18/18 09:40 Dose: 1 applic Ceftaroline Fosamil 200 mg/ (Dextrose) 100 mls @ 200 mls/hr IVPB BID [facility]; Protocol Last Admin: 11/19/18 09:25 Dose: 200 mls/hr Daptomycin 760 mg/ Sodium (Chloride) 100 mls @ 200 mls/hr IVPB Q48H [facility]; Protocol Last Admin: 11/18/18 14:46 Dose: 200 mls/hr Sodium Chloride (Normal Saline -) 250 mls @ 3,000 mls/hr IV PRN PRN PRN Reason: Hypotension during Dialysis Stop: 11/19/18 21:51 Metoprolol Tartrate (Lopressor Injection -) 2.5 mg IVPUSH Q6H PRN PRN Reason: TACHYCARDIA Pantoprazole Sodium (Protonix Iv) 40 mg IVPUSH DAILY [facility] Last Admin: 11/19/18 09:25 Dose: 40 mg - Objective Vital Signs: Vital Signs Temperature 97.8 F 11/19/18 15:26 Pulse Rate 102 H 11/19/18 15:26 Respiratory Rate 16 11/19/18 15:26 Blood Pressure 93/38 L 11/19/18 15:26 O2 Sat by Pulse Oximetry (%) 97 11/19/18 08:39 Constitutional: Yes: Calm Eyes: Yes: Conjunctiva Clear HENT: Yes: Atraumatic Cardiovascular: Yes: S1, S2 Respiratory: Yes: CTA Bilaterally Gastrointestinal: Yes: Soft Genitourinary: Yes: Incontinence Musculoskeletal: Yes: WNL Edema: No Neurological: Yes: Confusion Labs: CBC, BMP 11/19/18 10:25 11/19/18 06:40 INR, PTT INR 1.65 (0.83-1.09) H 11/14/18 11:50 Problem List - Problems (1) Acute hypoxemic respiratory failure Code(s): J96.01 - ACUTE RESPIRATORY FAILURE WITH HYPOXIA (2) ESRD (end stage renal disease) Code(s): N18.6 - END STAGE RENAL DISEASE (3) Sepsis Code(s): A41.9 - SEPSIS, UNSPECIFIED ORGANISM Qualifiers: Sepsis type: sepsis due to unspecified organism Qualified Code(s): A41.9 - Sepsis, unspecified organism Assessment/Plan Current Medications Generic Name Dose Route Start Last Admin Trade Name Freq PRN Reason Stop Dose Admin Acetaminophen 650 mg 11/08/18 20:31 11/19/18 10:06 Tylenol Oral Solution - NGT 650 mg Q6H PRN Administration FEVER Apixaban 5 mg 11/17/18 10:00 11/19/18 09:25 Eliquis - PO 5 mg BID [facility] Administration Collagenase 1 applic 11/07/18 10:00 11/18/18 09:40 Santyl - TP 1 applic DAILY [facility] Administration Protocol Ceftaroline Fosamil 200 mg/ 100 mls @ 200 mls/hr 11/07/18 10:00 11/19/18 09: 25 Dextrose IVPB 200 mls/hr BID [facility] Administration Protocol Daptomycin 760 mg/ Sodium 100 mls @ 200 mls/hr 11/08/18 13:00 11/18/18 14:46 Chloride IVPB 200 mls/hr Q48H [facility] Administration Protocol Sodium Chloride 250 mls @ 3,000 mls/hr 11/18/18 21:51 Normal Saline - IV 11/19/18 21:51 PRN PRN Hypotension during Dialysis Metoprolol Tartrate 2.5 mg 11/10/18 16:58 Lopressor Injection - IVPUSH Q6H PRN TACHYCARDIA Pantoprazole Sodium 40 mg 11/07/18 10:00 11/19/18 09:25 Protonix Iv IVPUSH 40 mg DAILY [facility] Administration Microbiology 11/11/18 18:00 Blood - Peripheral Venous Blood Culture - Final NO GROWTH AFTER 5 DAYS INCUBATION 11/11/18 17:40 Blood - Peripheral Venous Blood Culture - Final NO GROWTH AFTER 5 DAYS INCUBATION 11/09/18 07:00 Blood - Peripheral Venous Blood Culture - Final NO GROWTH AFTER 5 DAYS INCUBATION 11/09/18 06:00 Blood - Peripheral Venous Blood Culture - Final NO GROWTH AFTER 5 DAYS INCUBATION Impression 1. ESRD 2. acute rep failure 3. DM 4. hyperlipidemia 5. HTN 6. gout 7. proteinuria 8. hypotension/shock 9. sepsis 10. bacteremia Plan - pt tolerated HD today - cont wound care - epogen for anemia - renal diet - will follow
[2018-11-19] MEDS: COLLAGENASE CLOSTRIDIUM HIST. 30 GRAMS TUBE TP SCH (16:52)
[2018-11-19 18:49] VITALS: BP 120/65; PULSE 95; TEMP 97.4
[2018-11-21] MEDS ORDERED: VANCOMYCIN 1 GM in D5W (PRE-DOCKED) 1,000 MG/250 ML IVPB SCH (10:00)
== END 2018-11-19 19:26 | DRG 870 ==
LOC: JER 06:24 → JERBED 10:48 → JICU 13:18 → J4S 11-06 15:32
PROVIDERS: ADMIT Student in an Organized Health Care Education/Training Program; ATTEND Student in an Organized Health Care Education/Training Program
PROC: 5A1955Z Respiratory Ventilation, Greater than 96 Consecutive Hours (ICD-10-PCS; principal; 2018-10-29)
PROC: 0BH17EZ Insertion of Endotracheal Airway into Trachea, Via Natural or Artificial Opening (ICD-10-PCS; 2018-10-29)
PROC: 30233L1 Transfusion of Nonautologous Fresh Plasma into Peripheral Vein, Percutaneous Approach (ICD-10-PCS; 2018-10-30)
PROC: 30233K1 Transfusion of Nonautologous Frozen Plasma into Peripheral Vein, Percutaneous Approach (ICD-10-PCS; 2018-10-30)
PROC: 30233N1 Transfusion of Nonautologous Red Blood Cells into Peripheral Vein, Percutaneous Approach (ICD-10-PCS; 2018-10-31)
PROC: 05HM33Z Insertion of Infusion Device into Right Internal Jugular Vein, Percutaneous Approach (ICD-10-PCS; 2018-11-03)
PROC: 0JH63XZ Insertion of Tunneled Vascular Access Device into Chest Subcutaneous Tissue and Fascia, Percutaneous Approach (ICD-10-PCS; 2018-11-14)
PROC: 5A1D70Z Performance of Urinary Filtration, Intermittent, Less than 6 Hours Per Day (ICD-10-PCS; 2018-11-19)
DX: A41.02 Sepsis due to Methicillin resistant Staphylococcus aureus (principal); J96.01 Acute respiratory failure with hypoxia; N18.6 End stage renal disease; R65.21 Severe sepsis with septic shock; J18.9 Pneumonia, unspecified organism; G92 Toxic encephalopathy; E87.2 Acidosis; J98.11 Atelectasis; D68.9 Coagulation defect, unspecified; L03.115 Cellulitis of right lower limb; R79.1 Abnormal coagulation profile; E78.5 Hyperlipidemia, unspecified; I95.9 Hypotension, unspecified; M10.9 Gout, unspecified; I48.91 Unspecified atrial fibrillation; I34.0 Nonrheumatic mitral (valve) insufficiency; E11.9 Type 2 diabetes mellitus without complications; J44.9 Chronic obstructive pulmonary disease, unspecified; D63.1 Anemia in chronic kidney disease; Z99.2 Dependence on renal dialysis
CPT/HCPCS: 36415; 36430; 36558; 36600; 70450-TC; 71045-TC-FY; 71275-TC; 72128-TC; 72131-TC; 74174-TC; 74230-TC-FY; 77001-TC-FY; 80053; 81003; 81015; 82140; 82272; 82375; 82550; 82553; 82607; 82668; 82728; 82803; 82962; 83036; 83050; 83540; 83550; 83605; 83690; 83735; 84100; 84443; 84484; 85025; 85027; 85610; 85651; 85730; 86140; 86593; 86704; 86706; 86708; 86803; 86850; 86900; 86901; 86922; 87040; 87070; 87086; 87186; 87205; 87340; 87804; 92611-GN; 93005; 93010; 93306-TC; 94002; 94640; 97161-GP; 99285-25; C1751; G0480; J0131; J0878; J0885; J1644; P9017; P9038; P9047; P9058

== ENCOUNTER 2018-11-21 20:14 | Inpatient (IN) | payer OTHER ==
[2018-11-21] MEDS ORDERED: SODIUM CHLORIDE 1,000 ML IV SCH (21:00)
[2018-11-21 21:16] LABS: BASO % 1.1 % (0-2.0); EOS % 3.8 % (0-4.5); HEMATOCRIT 30.2 % (35.4-49); HEMOGLOBIN 9.9 GM/dL (11.7-16.9); LYMPH % 20.2 % (8-40); MCHC 32.6 g/dl (32.0-35.9); MEAN CELL VOLUME 95.1 fl (80-96); MEAN PLT VOLUME 8.7 fl (7.5-11.1); MONO % 10.9 % (3.8-10.2); PLATELET COUNT 388 K/MM3 (134-434); RBC 3.18 M/mm3 (4.00-5.60); WHITE BLOOD COUNT 7.7 K/mm3 (4.0-10.0)
[2018-11-21] MEDS ORDERED: RAPID SEQUENCE INTUBATION KIT NR ONE (21:31)
[2018-11-21 21:37] LABS: INR 1.32 (0.83-1.09); PROTHROMBIN TIME (PATIENT) 15.6 SEC (9.7-13.0)
[2018-11-21] MEDS ORDERED: KETAMINE HCL 200 MG/20 ML VIAL ONE (21:37)
[2018-11-21 22:06] LABS: ALBUMIN 2.3 g/dl (3.4-5.0); ALK PHOS 120 U/L (45-117); ANION GAP 13 MMOL/L (8-16); BILIRUBIN,TOTAL 0.5 mg/dL (0.2-1); BLOOD UREA NITROGEN 10 mg/dL (7-18); CALCIUM 8.4 mg/dL (8.5-10.1); CHLORIDE 97 mmol/L (98-107); CHOLESTEROL 154 mg/dL (50-200); CO2 26 mmol/L (21-32); GLUCOSE,RANDOM 127 mg/dL (74-106); HDL CHOLESTEROL 50 mg/dL (40-60); POTASSIUM 4.2 mmol/L (3.5-5.1); SGOT/AST 32 U/L (15-37); SGPT/ALT 11 U/L (13-61); SODIUM 136 mmol/L (136-145); TRIGLYCERIDES 164 mg/dL (0-150)
[2018-11-21] MEDS ORDERED: fentaNYL CITRATE 250 MCG/5 ML VIAL ONE (22:16)
--- NOTE | 2018-11-21 22:29 | PDOC ---
Attending Attestation - HPI HPI: 11/21/18 23:27 The patient is a 73 year old male, with a significant past medical history of DM , HTN, HLD, prior CVA, COPD, and UTI, ESRD on dialysis (MWF) who presents to the emergency department, via EMS after pulling out his dialysis catheter. The patient is hypotensive, hypocardic, nonverbal, and is unable to provide further history. Allergies: NKDA Past surgical history:None reported Social history: None reported - Physicial Exam PE: 11/21/18 23:27 ADULT EXAM GENERAL: agitated, ill-appearing, disheveled HEAD: No signs of trauma EYES: Eyes closed ENT: Auricles normal inspection, hearing grossly normal, nares patent, oropharynx clear without exudates. Moist mucosa NECK: Normal ROM, supple, no lymphadenopathy, JVD, or masses LUNGS: (+)Tachypneic, poor air movement HEART: (+) tachycardic. normal S1 and S2, no murmurs, rubs or gallops ABDOMEN: Soft, nontender, normoactive bowel sounds. No guarding, no rebound. No masses EXTREMITIES: (+)Contracted, chronic wounds in legs. (+) bed scars to right heel. No cords, erythema, or tenderness NEUROLOGICAL:(+) Eyes shifted to right. (+) minimal withdrawal from pain in all extremities SKIN: Warm, Dry, normal turgor, no rashes or lesions noted. <Thelma Woods - Last Filed: 11/21/18 23:27> - Resident Resident Name: Rocky Abarca - ED Attending Attestation I have performed the following: I have examined & evaluated the patient, The case was reviewed & discussed with the resident, I agree w/resident's findings & plan, Exceptions are as noted - Critical Care Time Total Critical Care Time: 60 Critical Care Statement: The care of this patient involved high complexity decision making to prevent further life threatening deterioration of the patient 's condition and/or to evaluate & treat vital organ system(s) failure or risk of failure. - Medical Decision Making 11/21/18 22:29 I, Dr. Anca Michelle, DO, attest that this document has been prepared under my direction and personally reviewed by me in its entirety. I further attest, that it accurately reflects all work, treatment, procedures and medical decision -making performed by me. 11/21/18 22:40 a/p: 73yo male who pulled out his HD catheter at HD arrives hypotensive, hypoxic , confused/ams -taken immediately to CT - r/o intracranial hemorrhage/cva -intubated upon return from CT -NSS hung -intubated with ketamine and rocuronium -intubated on first attempt -labs sent/concern given gaze for poss cva- unknown onset vs hypoxic failure causing ams -ekg -cxr -will need icu admission -fentanyl for sedation 11/21/18 22:43 bedside glucose 133 11/21/18 22:49 case discussed with the ICU resident for admission 11/21/18 22:49 microblog sent to [facility] 11/21/18 23:[address] no free air, no subcutaneous air from pulling out vascath 11/21/18 23:[address] Cates who accepts pt to service under Dr. Clarke 11/21/18 23:58 resident placed IO to RLE still hypotensive despite ivf hydration levophed ordered <Anca Michelle - Last Filed: 11/21/18 23:58> *DC/Admit/Observation/Transfer - Attestations Scribe Attestion: 11/21/18 23:28 Documentation prepared by Thelma Woods, acting as medical claims specialist for Anca Michelle DO, MD <Thelma Woods - Last Filed: 11/21/18 23:27> - Discharge Dispostion Decision to Admit order: Yes <Anca Michelle - Last Filed: 11/21/18 23:58> Diagnosis at time of Disposition: ESRD (end stage renal disease), Acute hypoxemic respiratory failure, Ventilator dependence - Discharge Dispostion Condition at time of disposition: Critical Heart Score/ECG Review - ECG Intrepretation Comment:: 11/21/18 22:42 sinus tach at 101, nl axis, nl interval, lvh, no acute st/t wave findings <Anca Michelle - Last Filed: 11/21/18 23:58>
[2018-11-21] MEDS: FENTANYL INJECTION 500 MCG in DEXTROSE 5%-WATER - 90 ML IVPB SCH (22:35)
[2018-11-21] MEDS ORDERED: PIPERACILLIN/TAZOB 2.25 GM 2.25 GM in DEXTROSE 5%-WATER - 50 ML IVPB ONE (22:39)
[2018-11-21] MEDS ORDERED: SODIUM CHLORIDE 0.9% 1000 ML INFUS.BAG IV ONE (22:39)
[2018-11-21] MEDS ORDERED: VANCOMYCIN 1 GM in D5W (PRE-DOCKED) 1,000 MG/250 ML IVPB ONE (22:39)
[2018-11-21] MEDS ORDERED: NOREPINEPHRINE BITARTRATE 8,000 MCG in DEXTROSE 5%-WATER - 492 ML IV SCH (22:45)
[2018-11-21] MEDS ORDERED: KETAMINE HCL 200 MG/20 ML VIAL IVPUSH ONE (22:45)
[2018-11-21] MEDS ORDERED: ROCURONIUM BROMIDE 50 MG/5 ML VIAL IVPUSH ONE (22:45)
--- NOTE | 2018-11-21 23:00 | PDOC ---
History of Present Illness - General Chief Complaint: Wound Stated Complaint: PULLED OUT CATHERER Time Seen by Provider: 11/21/18 22:08 History Source: EMS Exam Limitations: Clinical Condition - History of Present Illness Initial Comments: 11/21/18 23:00 Patient is 73M with history of DM, HTN, HLD, prior CVA, COPD, and UTI, ESRD on dialysis here today with altered mental status that started at unknown time. Patient was picked up by EMS after pulling out his dialysis catheter and found to be hypotensive. Patient's bleeding controlled at scene, no significant amount of blood loss. Patient unable to contribute to history at this time. Past History - Past Medical History Allergies/Adverse Reactions: Allergies Allergy/AdvReac Type Severity Reaction Status Date / Time watermelon Allergy Unknown Verified 10/29/18 06:33 melon Allergy Verified 10/29/18 06:33 No Known Drug Allergies Allergy Verified 10/29/18 06:34 Home Medications: Ambulatory Orders Albuterol 2.5/Ipratropium 0.5 [Duoneb -] 1 amp NEB Q6H PRN #0 amp 07/12/17 Allopurinol [Zyloprim -] 100 mg PO DAILY tablet 07/12/17 Atorvastatin Ca [Lipitor] 20 mg PO HS tablet 07/12/17 Clopidogrel Bisulfate [Plavix -] 75 mg PO DAILY tablet 07/12/17 Collagenase Clostridium Hist. [Santyl -] 250 unit TP DAILY 08/31/18 Lisinopril 10 mg PO DAILY 08/31/18 Collagenase Clostridium Hist. [Santyl -] 1 applic TP DAILY tube 09/06/18 Albuterol Sulfate [Proair Hfa] 2 puff IH Q6H PRN 10/29/18 Escitalopram Oxalate [Lexapro -] 10 mg PO DAILY 10/29/18 Folic Acid/Vit B Complex and C [Dialyvite Tablet] 1 each PO DAILY 10/29/18 Insulin Lispro [Humalog Kwikpen U-100] 0 unit SQ ACHS 10/29/18 Midodrine HCl 10 mg PO MOWEFR 10/29/18 Sevelamer Carbonate [Renvela -] 1,600 mg PO TID 10/29/18 Tamsulosin HCl [Flomax] 0.4 mg PO HS 10/29/18 Zinc Oxide 20% Topical Oint 454 gm NR BID 10/29/18 Ceftaroline Fosamil Acetate [Teflaro (Restricted To Id)] 200 mg IVPB BID vial 11/17/18 Insulin Sliding Scale [Novolog Vial Sliding Scale -] 1 vial SQ TIDAC #1 vial Apixaban [Eliquis -] 5 mg PO BID #30 tablet MDD 2 11/19/18 Vancomycin 1 Gram (Pre-Docked) [Vancomycin (Pre-Docked)] 1,000 mg IVPB Q2D #14 bag 11/19/18 CVA: Yes COPD: Yes CHF: No Dementia: Yes Diabetes: Yes HTN: Yes Hypercholesterolemia: Yes - Suicide/Smoking/Psychosocial Hx Smoking History: Unknown if ever smoked Have you smoked in the past 12 months: No Hx Alcohol Use: No Drug/Substance Use Hx: No Substance Use Type: None Hx Substance Use Treatment: No Review of Systems - Review of Systems Able to Perform ROS?: No (2/2 clinical condition.) *Physical Exam - Vital Signs Last Vital Signs Temp Pulse Resp BP Pulse Ox 98.9 F 101 H 16 73/53 L 100 11/21/18 20:31 11/21/18 20:31 11/21/18 22:09 11/21/18 20:31 11/21/18 20:31 - Physical Exam Comments: 11/21/18 23:02 GENERAL: Eyes closed, ill-appearing, disheveled HEAD: No signs of trauma, normocephalic, atraumatic EYES: 4mm bilaterally and poorly reactive ENT: Auricles normal inspection, hearing grossly normal, nares patent, oropharynx clear without exudates. Moist mucosa NECK: Normal ROM, supple, no lymphadenopathy, JVD, or masses LUNGS: Tachypneic, poor air movement HEART: Regular rate and rhythm, normal S1 and S2, no murmurs, rubs or gallops, peripheral pulses normal and equal bilaterally. ABDOMEN: Soft, nontender, normoactive bowel sounds. No guarding, no rebound. No masses EXTREMITIES: Contracted, chronic wounds in legs NEUROLOGICAL: Eyes shifted to right, no withdrawal from pain in all extremities , unable to comply with full neuro examination, no facial droop, no protective eye reflexes SKIN: Multiple chronic wounds on lower extremities. Moderate Sedation - Procedure Monitoring Vital Signs: Procedure Monitoring Vital Signs Temperature 98.9 F 11/21/18 20:31 Pulse Rate 101 H 11/21/18 20:31 Respiratory Rate 16 11/21/18 22:09 Blood Pressure 73/53 L 11/21/18 20:31 O2 Sat by Pulse Oximetry (%) 100 11/21/18 20:31 Procedures - Intubation Intubation Method: orotracheal Blade used: Glidescope Tube Size (Fr): 7.5 Medications: Ketamine, Rocuronium Tube position @ lip (cm): 24 Tube position confirmed by: Direct visualization, CO2 detector, Chest x-ray, Breath sounds Breath Sounds after Intubation: equal Intubation Complications: no complications Post Intubation Xray: Yes Progress/Xray Impression: Appropriately placed tube. ED Treatment Course - LABORATORY CBC & Chemistry Diagram: 11/22/18 09:54 11/22/18 09:54 - ADDITIONAL ORDERS Additional order review: Laboratory Results 11/21/18 11/21/18 21:03 21:03 PT with INR 15.60 H INR 1.32 H Sodium 136 Potassium 4.2 Chloride 97 L Carbon Dioxide 26 Anion Gap 13 BUN 10 Creatinine 3.0 H Creat Clearance w eGFR 20.56 Random Glucose 127 H Calcium 8.4 L Total Bilirubin 0.5 AST 32 ALT 11 L Alkaline Phosphatase 120 H Creatine Kinase 109 Troponin I < 0.02 Total Protein 9.0 H Albumin 2.3 L Triglycerides 164 H Cholesterol 154 Total LDL Cholesterol 88 HDL Cholesterol 50 11/21/18 21:03 RBC 3.18 L MCV 95.1 MCHC 32.6 RDW 17.0 H MPV 8.7 D Neutrophils % 64.0 Lymphocytes % 20.2 Monocytes % 10.9 H Eosinophils % 3.8 Basophils % 1.1 - RADIOLOGY Radiology Studies Ordered: Category Date Time Status HEAD CT (STROKE) [CT] Stat CT Scan 11/21/18 20:55 Completed Medical Decision Making - Medical Decision Making 11/21/18 23:04 Patient is 73M with history of DM, HTN, HLD, prior CVA, COPD, and UTI, ESRD on dialysis here today with hypotension, hypoxia, altered mental status. Patient initially lacked purposeful movements, then started pulling at lines and o2 after being started on non-rebreather. Initial concern was for head bleed, patient rushed to CT scan. CT negative for bleed. Patient remained hypoxic on non-rebreather, pulling at therapy. Decision made to intubate for hypoxic respiratory failure. Fluid resuscitation limited by limited by difficult IV access. Intubated with 200mg ketamine and 50mg jessika using glidescope as per procedure note. spO2 sam to 100% after intubation. IO placed in R tibia after numerous attempts at securing IV access. Patient remained hypotensive after fluid resuscitation, vanc/zosyn given. Levophed drip started. Will titrate to map of 65. K normal, Cr at baseline. Accepted for ICU by Dr Mcmanus. Pending acceptance by hospitalist, CXR. *DC/Admit/Observation/Transfer Diagnosis at time of Disposition: ESRD (end stage renal disease), Acute hypoxemic respiratory failure, Ventilator dependence - Discharge Dispostion Condition at time of disposition: Critical Decision to Admit order: Yes - Referrals - Patient Instructions - Post Discharge Activity
[2018-11-21] MEDS ORDERED: NOREPINEPHRINE BITARTRATE 4 MG/4 ML ML IV ONE (23:08)
[2018-11-21] MEDS ORDERED: PIPERACILLIN/TAZOB 2.25 GM 2.25 GM/50 ML BAG IVPB ONE (23:08)
[2018-11-21] MEDS ORDERED: VANCOMYCIN 1 GRAM (PRE-DOCKED) 1,000 MG/250 ML BAG IVPB ONE (23:09)
[2018-11-22 00:14] LABS: ARTERIAL BLD GAS O2 SATURATION 97.9 % (90-98.9); ARTERIAL BLOOD GAS BASE EXCESS 0.8 meq/l (-2-2); ARTERIAL BLOOD GAS PCO2 35.1 mmHg (35-45)
[2018-11-22 00:20] LABS: ARTERIAL BLOOD GAS pH 7.45 (7.35-7.45)
[2018-11-22] MEDS ORDERED: DEXTROSE 5%-WATER - 1,000 ML IV SCH (00:30)
--- NOTE | 2018-11-22 00:43 | HP ---
CHIEF COMPLAINT: respiratory failure PCP: HISTORY OF PRESENT ILLNESS: Critically ill 73 yo M resident of [facility] with a significant PMHx of ESRD on dialysis (MWF),DM, HTN, HLD, prior CVA, and COPD who presents to the emergency department, via EMS after pulling out his dialysis catheter during HD session. The patient arrived hypotensive, tachycardic, nonverbal, and is unable to provide further history. In ER he was intubated for resp failure and IO placed for access in right tibia. IV Fluids and levophed started. ER course was notable for: (1) intubation (2) cxr (3) IO placement Recent Travel: unknown PAST MEDICAL HISTORY: ESRD on dialysis (MWF),DM, HTN, HLD, prior CVA, and COPD PAST SURGICAL HISTORY: Social History: unknown Smoking: Alcohol: Drugs: Family History: unknown Allergies watermelon Allergy (Unknown, Verified 10/29/18 06:33) melon Allergy (Verified 10/29/18 06:33) No Known Drug Allergies Allergy (Verified 10/29/18 06:34) HOME MEDICATIONS: Home Medications Medication Instructions Recorded Albuterol 2.5/Ipratropium 0.5 1 amp NEB Q6H PRN #0 amp 07/12/17 [Duoneb -] Allopurinol [Zyloprim -] 100 mg PO DAILY tablet 07/12/17 Atorvastatin Ca [Lipitor] 20 mg PO HS tablet 07/12/17 Clopidogrel Bisulfate [Plavix -] 75 mg PO DAILY tablet 07/12/17 Collagenase Clostridium Hist. 250 unit TP DAILY 08/31/18 [Santyl -] Lisinopril 10 mg PO DAILY 08/31/18 Collagenase Clostridium Hist. 1 applic TP DAILY tube 09/06/18 [Santyl -] Albuterol Sulfate [Proair Hfa] 2 puff IH Q6H PRN 10/29/18 Escitalopram Oxalate [Lexapro -] 10 mg PO DAILY 10/29/18 Folic Acid/Vit B Complex and C 1 each PO DAILY 10/29/18 [Dialyvite Tablet] Insulin Lispro [Humalog Kwikpen 0 unit SQ ACHS 10/29/18 U-100] Midodrine HCl 10 mg PO MOWEFR 10/29/18 Sevelamer Carbonate [Renvela -] 1,600 mg PO TID 10/29/18 Tamsulosin HCl [Flomax] 0.4 mg PO HS 10/29/18 Zinc Oxide 20% Topical Oint 454 gm NR BID 10/29/18 Ceftaroline Fosamil Acetate 200 mg IVPB BID vial 11/17/18 [Teflaro (Restricted To Id)] Insulin Sliding Scale [Novolog 1 vial SQ TIDAC #1 vial 11/17/18 Vial Sliding Scale -] Apixaban [Eliquis -] 5 mg PO BID #30 tablet MDD 2 11/19/18 Vancomycin 1 Gram (Pre-Docked) 1,000 mg IVPB Q2D #14 bag 11/19/18 [Vancomycin (Pre-Docked)] REVIEW OF SYSTEMS- unable to obtain PHYSICAL EXAMINATION Vital Signs - 24 hr 11/21/18 11/21/18 11/21/18 20:31 22:09 23:35 Temperature 98.9 F Pulse Rate 101 H 82 Respiratory 24 H 16 Rate Blood Pressure 73/53 L 60/34 L O2 Sat by Pulse 100 Oximetry (%) GENERAL: intubated, sedated HEAD: Normal with no signs of trauma, ET tube + EYES: Pupils equal, round and reactive to light, extraocular movements intact, sclera anicteric, conjunctiva clear. No lid lag. EARS, NOSE, THROAT: Ears normal, nares patent, oropharynx clear without exudates. Moist mucous membranes. NECK: Normal range of motion, supple without lymphadenopathy, JVD, or masses. LUNGS: Breath sounds equal b/l HEART: Regular rate and rhythm, normal S1 and S2 without murmur, rub or gallop. ABDOMEN: Soft, nontender, not distended, normoactive bowel sounds, no guarding, no rebound, no masses. No hepatomegaly or splenomegaly. MUSCULOSKELETAL: Normal range of motion at all joints. No bony deformities or tenderness. No CVA tenderness. UPPER EXTREMITIES: 2+ pulses, warm, well-perfused. No cyanosis. No clubbing. No peripheral edema. LOWER EXTREMITIES: right tibia i/o access NEUROLOGICAL: Cranial nerves II-XII intact. Normal speech. Normal gait. PSYCHIATRIC: Cooperative. Good eye contact. Appropriate mood and affect. SKIN: heal skin breakdown Laboratory Results - last 24 hr 11/21/18 11/21/18 11/21/18 21:03 21:03 21:03 WBC 7.7 RBC 3.18 L Hgb 9.9 L Hct 30.2 L D MCV 95.1 MCH 31.0 MCHC 32.6 RDW 17.0 H Plt Count 388 MPV 8.7 D Absolute Neuts (auto) 4.9 Neutrophils % 64.0 Lymphocytes % 20.2 Monocytes % 10.9 H Eosinophils % 3.8 Basophils % 1.1 Nucleated RBC % 0 PT with INR 15.60 H INR 1.32 H Anticoagulation Therapy Puncture Site ABG pH ABG pCO2 at Pt Temp ABG pO2 at Pt Temp ABG HCO3 ABG O2 Sat (Measured) ABG O2 Content ABG Base Excess Johan Test Carboxyhemoglobin Methemoglobin O2 Delivery Device Oxygen Flow Rate Vent Mode Vent Rate Mechanical Rate Pressure Support Vent Sodium 136 Potassium 4.2 Chloride 97 L Carbon Dioxide 26 Anion Gap 13 BUN 10 Creatinine 3.0 H Creat Clearance w eGFR 20.56 Random Glucose 127 H Calcium 8.4 L Total Bilirubin 0.5 AST 32 ALT 11 L Alkaline Phosphatase 120 H Creatine Kinase 109 Troponin I < 0.02 Total Protein 9.0 H Albumin 2.3 L Triglycerides 164 H Cholesterol 154 Total LDL Cholesterol 88 HDL Cholesterol 50 11/21/18 22:52 WBC RBC Hgb Hct MCV MCH MCHC RDW Plt Count MPV Absolute Neuts (auto) Neutrophils % Lymphocytes % Monocytes % Eosinophils % Basophils % Nucleated RBC % PT with INR INR Anticoagulation Therapy No Result Required. Puncture Site No Result Required. ABG pH 7.45 ABG pCO2 at Pt Temp 35.1 D ABG pO2 at Pt Temp 104.0 H ABG HCO3 24.2 ABG O2 Sat (Measured) 97.9 ABG O2 Content 11.7 L ABG Base Excess 0.8 Johan Test No Result Required. Carboxyhemoglobin 1.0 Methemoglobin 0.1 L O2 Delivery Device No Result Required. Oxygen Flow Rate No Result Required. Vent Mode No Result Required. Vent Rate No Result Required. Mechanical Rate No Result Required. Pressure Support Vent No Result Required. Sodium Potassium Chloride Carbon Dioxide Anion Gap BUN Creatinine Creat Clearance w eGFR Random Glucose Calcium Total Bilirubin AST ALT Alkaline Phosphatase Creatine Kinase Troponin I Total Protein Albumin Triglycerides Cholesterol Total LDL Cholesterol HDL Cholesterol imaging studies reviewed ASSESSMENT/PLAN: #Hypoxemic respiratory failure -c/w mehanical ventilation -abg -sedation -adjust vent settings as per abg -daily weaning trials -pulm /crit eval #HYpotension/possible septic shock- now improved, on levophed. May from from hypovelemia from incompleted HD, differential also includes sepsis. Lactate was wnl. Patient received 3L NS in ER to correct possible intravascular fluid loss from incompleted HD. -blood, urine cultures -s/p zosyn, vancomycin -ID consult -c/w antibiotics pending cultures #ESRD on HD- currently without HD access at this time -renal eval -new HD access must be placed #COPD -on mechanical ventilation -tiotropium daily #DM -insulin sliding scale -a1c #skin breakdown on heal -wound care -collogenase DVT ppx -heparin sc Visit type - Emergency Visit Emergency Visit: Yes ED Registration Date: 11/21/18 Care time: The patient presented to the Emergency Department on the above date and was hospitalized for further evaluation of their emergent condition. - New Patient This patient is new to me today: Yes Date on this admission: 11/22/18 - Critical Care Critical Care patient: Yes Total Critical Care Time (in minutes): 35 Critical Care Statement: The care of this patient involved high complexity decision making to prevent further life threatening deterioration of the patient 's condition and/or to evaluate & treat vital organ system(s) failure or risk of failure.
--- NOTE | 2018-11-22 01:24 | CONSULT ---
Consult Consult Specialty:: ICU Reason for Consultation:: intubated vent management. - History of Present Illness History of Present Illness: 73 yo M resident of [facility] with a significant PMHx of ESRD on dialysis (MWF) ,DM, HTN, HLD, prior CVA, and COPD who presents to the emergency department, via EMS after pulling out his dialysis catheter. The patient arrived hypotensive , tachycardic, nonverbal, and is unable to provide further history. In ER he was intubated and IO placed for access. IV Fluids and levophed started. He was recently admitted for septic shock secondary to MRSA bacteremia which required intubatation and pressors. - History Source History Provided By: Medical Record Limitations to Obtaining History: Intubated - Past Medical History REGULATORY LEAD: Yes: CVA, Dementia Cardio/Vascular: Yes: AFIB, CAD (PVD), CHF, HTN, Hyperlipdemia Pulmonary: Yes: COPD Renal/: Yes: Renal Failure, Hemodialysis Endocrine: Yes: Diabetes Mellitus - Alcohol/Substance Use Hx Alcohol Use: No - Smoking History Smoking history: Unknown if ever smoked Have you smoked in the past 12 months: No - Social History Usual Living Arrangement: Residential Home Medications - Allergies Allergies/Adverse Reactions: Allergies Allergy/AdvReac Type Severity Reaction Status Date / Time watermelon Allergy Unknown Verified 10/29/18 06:33 melon Allergy Verified 10/29/18 06:33 No Known Drug Allergies Allergy Verified 10/29/18 06:34 - Home Medications Home Medications: Ambulatory Orders Albuterol 2.5/Ipratropium 0.5 [Duoneb -] 1 amp NEB Q6H PRN #0 amp 07/12/17 Allopurinol [Zyloprim -] 100 mg PO DAILY tablet 07/12/17 Atorvastatin Ca [Lipitor] 20 mg PO HS tablet 07/12/17 Clopidogrel Bisulfate [Plavix -] 75 mg PO DAILY tablet 07/12/17 Collagenase Clostridium Hist. [Santyl -] 250 unit TP DAILY 08/31/18 Lisinopril 10 mg PO DAILY 08/31/18 Collagenase Clostridium Hist. [Santyl -] 1 applic TP DAILY tube 09/06/18 Albuterol Sulfate [Proair Hfa] 2 puff IH Q6H PRN 10/29/18 Escitalopram Oxalate [Lexapro -] 10 mg PO DAILY 10/29/18 Folic Acid/Vit B Complex and C [Dialyvite Tablet] 1 each PO DAILY 10/29/18 Insulin Lispro [Humalog Kwikpen U-100] 0 unit SQ ACHS 10/29/18 Midodrine HCl 10 mg PO MOWEFR 10/29/18 Sevelamer Carbonate [Renvela -] 1,600 mg PO TID 10/29/18 Tamsulosin HCl [Flomax] 0.4 mg PO HS 10/29/18 Zinc Oxide 20% Topical Oint 454 gm NR BID 10/29/18 Ceftaroline Fosamil Acetate [Teflaro (Restricted To Id)] 200 mg IVPB BID vial 11/17/18 Insulin Sliding Scale [Novolog Vial Sliding Scale -] 1 vial SQ TIDAC #1 vial Apixaban [Eliquis -] 5 mg PO BID #30 tablet MDD 2 11/19/18 Vancomycin 1 Gram (Pre-Docked) [Vancomycin (Pre-Docked)] 1,000 mg IVPB Q2D #14 bag 11/19/18 Review of Systems Unable to obtain ROS, reason: intubated and sedated. Physical Exam Vital Signs: Vital Signs Temperature 98.9 F 11/21/18 20:31 Pulse Rate 82 11/21/18 23:35 Respiratory Rate 16 11/21/18 22:09 Blood Pressure 60/34 L 11/21/18 23:35 O2 Sat by Pulse Oximetry (%) 100 11/21/18 20:31 Constitutional: Yes: Mild Distress Eyes: Yes: Conjunctiva Clear, PERRL HENT: Yes: Atraumatic, Normocephalic Neck: Yes: Supple, Trachea Midline Cardiovascular: Yes: Regular Rate and Rhythm, S1, S2. No: JVD, Gallop, Murmur Respiratory: Yes: Diminished, Intubated, Mechanically Ventilated Gastrointestinal: Yes: Normal Bowel Sounds, Soft. No: Distention Extremities: Yes: Other (Right ankle/foot wrapped in Kerlix dressing with deformed digits; extensive hemostatic wound along the lateral aspect) Edema: No Peripheral Pulses WNL: Yes Neurological: Yes: Unresponsive (only to painful stimuli), Other (intubated and sedated.). No: Facial Droop, Seizure Labs: CBC, BMP 11/21/18 21:03 11/21/18 21:03 Assessment/Plan A:73 yo M resident of [facility] with a significant PMHx of ESRD on dialysis ( MWF),DM, HTN, HLD, prior CVA, and COPD who presents to the emergency department , via EMS after pulling out his dialysis catheter found to be unresponsive and hypotensive. Intubated in ER and admitted to ICU for further management. Plan: NEURO: * patient was found unresponsive * intubated in ER. * CT head was negative for acute pathology. * continue Lexapro. * Neuro checks * fentanyl drip started. PULM: * Intubated in ER * AC with setting of 450/15/70%/PEEP 5 * ABG WNL * BD TX PRN * maintain SpO2 >90% * weaning trial CV: * Hypotension 2/2 HD vs. sepsis. * Patient received 3L IVF in ER * Levophed for pressor support via IO * maintain MAP >65 * continue midodrine * Lisinopril held. * Continue Eliquis for Afib. AC ([id number]) * Continue Plavix for CAD. * Continue statin HLD * Echo 10/31/18 showed mod MR/ TR with normal LV/RV size and function. REPEAT PENDING ID: * Possible sepsis- Lactic acid WNl * Blood, urine cultures sent * Vanco/Zosyn empirically given in ER * ID consulted. ENDO: * BGM Q6H * ISS Q6H * HgbA1C RENAL: * received dialysis 11/21/18 * Nephrology consulted. * continue renvela * new HD access needed FEN: * D5 W @ 20 ml/hr * monitor E-lytes and replete PRN * NPO LTD: * ET tube placed 11/21/18 * IO placed 11/21/18 DISPO: Continue to monitor in ICU.
[2018-11-22] MEDS ORDERED: MIDAZOLAM HCL 2 MG/2 ML SINGLE DOSE VIAL IVPUSH ONE ×4 (01:32→20:38)
[2018-11-22] MEDS ORDERED: MIDAZOLAM HCL 2 MG/2 ML SINGLE DOSE VIAL ONE ×2 (01:35→11:59)
[2018-11-22 03:45] LABS: URINE APPEARANCE CLEAR; URINE BILIRUBIN NEGATIVE (<2.0 mg/dL); URINE COLOR YELLOW; URINE GLUCOSE (UA) NEGATIVE (NEGATIVE); URINE KETONE NEGATIVE (NEGATIVE); URINE LEUK ESTERASE NEGATIVE (NEGATIVE); URINE NITRITE NEGATIVE (NEGATIVE); URINE PROTEIN 3+ (NEGATIVE); URINE UROBILINOGEN NEGATIVE mg/dL (0.2-1.0)
[2018-11-22 04:27] LABS: URINE BACTERIA RARE /hpf (NONE SEEN); URINE HYALINE CAST 1 /lpf; URINE MUCUS RARE
[2018-11-22] MEDS: HEPARIN NA (PORCINE) 5,000 UNITS/ML 1ML VIAL SQ SCH ×3 (05:12→21:32)
[2018-11-22] MEDS: FENTANYL INJECTION 500 MCG in DEXTROSE 5%-WATER - 90 ML IVPB SCH ×3 (07:00→21:33)
[2018-11-22] MEDS: INSULIN SLIDING SCALE (NOVOLOG) 1 VIAL SQ SCH ×4 (07:27→22:05)
[2018-11-22] MEDS ORDERED: fentaNYL CITRATE 250 MCG/5 ML VIAL ONE ×3 (08:42→19:57)
[2018-11-22] MEDS: SEVELAMER CARBONATE 800 MG TAB (FP) PO SCH ×3 (09:00→17:26)
[2018-11-22] MEDS: MUPIROCIN 2% TOPICAL OINTMENT FOR DECOLONIZATION NS SCH ×2 (09:27→21:32)
[2018-11-22] MEDS: PANTOPRAZOLE SODIUM 40 MG VIAL IVPUSH SCH (09:28)
--- NOTE | 2018-11-22 09:28 | SPA.PREOP ---
- PRE-OP NOTE Dx: Renal failure Planned Procedure: Permacath placement Surgeon: Amos Mcneil, Last Vital Signs Temp Pulse Resp BP Pulse Ox 97.4 F L 83 17 165/79 100 11/22/18 05:55 11/22/18 08:00 11/22/18 08:13 11/22/18 08:00 11/22/18 08:11 Lab Results WBC 7.7 K/mm3 (4.0-10.0) 11/21/18 21:03 RBC 3.18 M/mm3 (4.00-5.60) L 11/21/18 21:03 Hgb 9.9 GM/dL (11.7-16.9) L 11/21/18 21:03 Hct 30.2 % (35.4-49) L D 11/21/18 21:03 MCV 95.1 fl (80-96) 11/21/18 21:03 MCHC 32.6 g/dl (32.0-35.9) 11/21/18 21:03 RDW 17.0 % (11.9-15.9) H 11/21/18 21:03 Plt Count 388 K/MM3 (134-434) 11/21/18 21:03 Sodium 136 mmol/L (136-145) 11/21/18 21:03 Potassium 4.2 mmol/L (3.5-5.1) 11/21/18 21:03 Chloride 97 mmol/L (98-107) L 11/21/18 21:03 Carbon Dioxide 26 mmol/L (21-32) 11/21/18 21:03 Anion Gap 13 MMOL/L (8-16) 11/21/18 21:03 BUN 10 mg/dL (7-18) 11/21/18 21:03 Creatinine 3.0 mg/dL (0.55-1.3) H 11/21/18 21:03 Random Glucose 127 mg/dL (74-106) H 11/21/18 21:03 Calcium 8.4 mg/dL (8.5-10.1) L 11/21/18 21:03 Blood Type A POSITIVE 11/22/18 00:40 Antibody Screen Positive H 11/22/18 00:40 INR 1.32 (0.83-1.09) H 11/21/18 21:03 - ASSESSMENT/PLAN 1. Make NPO except po meds 2. GI/DVT PPX 3. Medical optimization / clearance 4. Consent to be obtained by surgeon after risks, benefits and alternatives discussed with patient and or Health Care Proxy.
[2018-11-22] MEDS ORDERED: FLU VACCINE QUAD 60 MCG/0.5 ML (MDV 18-19) IM ONE (10:00)
[2018-11-22] MEDS ORDERED: PNEUMOC 13-VAL CONJ-DIP CRM/PF 0.5 ML DISP.SYRIN IM ONE (10:00)
[2018-11-22 10:16] LABS: BASO % 1.1 % (0-2.0); HEMATOCRIT 28.1 % (35.4-49); HEMOGLOBIN 8.9 GM/dL (11.7-16.9); LYMPH % 26.5 % (8-40); MCH 30.3 pg (25.7-33.7); MCHC 31.7 g/dl (32.0-35.9); MEAN CELL VOLUME 95.5 fl (80-96); MONO % 7.8 % (3.8-10.2); NEUT % 61.6 % (42.8-82.8); PLATELET COUNT 305 K/MM3 (134-434); RBC 2.94 M/mm3 (4.00-5.60); RDW 16.2 % (11.9-15.9); WHITE BLOOD COUNT 6.6 K/mm3 (4.0-10.0)
--- NOTE | 2018-11-22 10:57 | PN ---
Progress Note (short form) - Note Progress Note: ID CONSULT DICTATED HYPOTENSION R/O SEPSIS RESPIRATORY FAILURE MRSA BACTEREMIA ESRD AWAIT C/S VANCO REDOSED CHECK LEVEL CONTINUE EMPIRIC ZOSYN
[2018-11-22 11:19] LABS: ALK PHOS 104 U/L (45-117); ANION GAP 9 MMOL/L (8-16); BILIRUBIN,TOTAL 0.4 mg/dL (0.2-1); BLOOD UREA NITROGEN 14 mg/dL (7-18); CALCIUM 7.7 mg/dL (8.5-10.1); CHLORIDE 103 mmol/L (98-107); CO2 27 mmol/L (21-32); CREATININE 3.4 mg/dL (0.55-1.3); GLUCOSE,RANDOM 92 mg/dL (74-106); POTASSIUM 3.8 mmol/L (3.5-5.1); SGOT/AST 50 U/L (15-37); SGPT/ALT 15 U/L (13-61); SODIUM 139 mmol/L (136-145); TOT PROT 7.6 g/dl (6.4-8.2)
--- NOTE | 2018-11-22 11:50 | PN ---
Progress Note, Physician Chief Complaint: patient seen and examined in icu intubated on ventilator and fentanyl drip - Current Medication List Current Medications: Active Medications Apixaban (Eliquis -) 5 mg PO BID [facility] Atorvastatin Calcium (Lipitor -) 20 mg PO HS [facility] Chlorhexidine Gluconate (Hibiclens For Decolonization -) 1 applic TP HS [facility] Clopidogrel Bisulfate (Plavix -) 75 mg PO DAILY [facility] Collagenase (Santyl -) 1 applic TP DAILY [facility]; Protocol Escitalopram Oxalate (Lexapro -) 10 mg PO DAILY [facility] Heparin Sodium (Porcine) (Heparin -) 5,000 unit SQ TID [facility] Last Admin: 11/22/18 05:12 Dose: 5,000 unit Fentanyl 500 mcg/ Dextrose 100 mls @ 5 mls/hr IVPB TITR [facility] Last Admin: 11/22/18 07:00 Dose: 100 mcg/hr, 20 mls/hr Norepinephrine Bitartrate 8, (000 mcg/ Dextrose) 500 mls @ 9.33 mls/hr IV ASDIR [facility]; Protocol Last Admin: 11/21/18 23:35 Dose: 0.03 mcg/kg/min, 9.33 mls/hr Dextrose (D5w -) 1,000 mls @ 20 mls/hr IV [facility] Piperacillin Sod/Tazobactam (Sod 2.25 gm/ Dextrose) 50 mls @ 100 mls/hr IVPB Q8H-IV [facility]; Protocol Insulin Aspart (Novolog Vial Sliding Scale -) 1 vial SQ ACHS [facility]; Protocol Last Admin: 11/22/18 07:27 Dose: Not Given Midazolam HCl (Versed -) 2 mg IVPUSH ONCE ONE Stop: 11/22/18 11:44 Midodrine (Proamatine -) 10 mg PO MoWeFr@0800 [facility] Multi-Ingredient Ointment (Zinc Oxide 20% Topical Oint) 1 gm TP BID [facility] Mupirocin (Bactroban Ointment (For Decolonization) -) 1 applic NS BID [facility] Stop: 11/27/18 09:59 Last Admin: 11/22/18 09:27 Dose: 1 applic Pantoprazole Sodium (Protonix Iv) 40 mg IVPUSH DAILY [facility] Last Admin: 11/22/18 09:28 Dose: 40 mg Sevelamer Carbonate (Renvela -) 1,600 mg PO TIDCM [facility] Last Admin: 11/22/18 09:00 Dose: Not Given Tamsulosin HCl (Flomax -) 0.4 mg PO [facility] - Objective Vital Signs: Vital Signs Temperature 97.9 F 11/22/18 10:00 Pulse Rate 91 H 11/22/18 10:00 Respiratory Rate 15 11/22/18 10:00 Blood Pressure 127/75 11/22/18 10:00 O2 Sat by Pulse Oximetry (%) 100 11/22/18 08:11 Constitutional: Yes: Calm Neck: Yes: Other (intubated) Cardiovascular: Yes: Regular Rate and Rhythm, S1, S2 Respiratory: Yes: Mechanically Ventilated Gastrointestinal: Yes: Normal Bowel Sounds, Soft Labs: CBC, BMP 11/22/18 09:54 11/22/18 09:54 INR, PTT INR 1.32 (0.83-1.09) H 11/21/18 21:03 Problem List - Problems (1) Acute hypoxemic respiratory failure Assessment/Plan: inutbated NPO iv abx Code(s): J96.01 - ACUTE RESPIRATORY FAILURE WITH HYPOXIA (2) ESRD (end stage renal disease) Assessment/Plan: HD Code(s): N18.6 - END STAGE RENAL DISEASE (3) A-fib Assessment/Plan: eliquis Code(s): I48.91 - UNSPECIFIED ATRIAL FIBRILLATION (4) Elevated troponin Assessment/Plan: echo trend troponin cardiology maybe secondary to demand ischemia - hypotension Code(s): R74.8 - ABNORMAL LEVELS OF OTHER SERUM ENZYMES (5) MRSA (methicillin resistant staph aureus) culture positive Assessment/Plan: MRSA bacteremia on vancomycin check levels Code(s): Z22.322 - CARRIER OR SUSPECTED CARRIER OF METHICILLIN RESIS STAPH (6) Hypotension Assessment/Plan: off pressor BP improved Code(s): I95.9 - HYPOTENSION, UNSPECIFIED
--- NOTE | 2018-11-22 12:01 | CONS ---
INFECTIOUS DISEASE CONSULTATION DATE OF CONSULTATION: DATE OF DICTATION: 11/22/2018 HISTORY OF PRESENT ILLNESS: The patient is a 73-year-old male who is evaluated for sepsis, possible septic shock. Patient had a long hospital admission earlier this month for MRSA bacteremia. He was hospitalized between October 29 and November 19, 2018. He had positive blood cultures for MRSA which were felt to be secondary to an infected dialysis catheter versus foot ulcers. His course was complicated by prolonged bacteremia. He ultimately cleared his bacteremia after high-dose daptomycin and ceftaroline. The patient had had negative blood cultures for 2 weeks prior to being discharged on November 19, 2018. The plan was to complete a course of therapy as an outpatient with vancomycin. The patient was transferred to a assisted facility where he apparently pulled out his dialysis catheter. He was sent to the emergency room where the patient was poorly responsive, hypotensive. He required aggressive IV fluid resuscitation. He was transferred to the intensive care unit. His course was complicated by respiratory failure requiring intubation. CAT scan of the head was negative for acute infarct or bleed. At the present time, he is intubated in the intensive care unit. He is awake and responsive. He denies any pain when questioned. He is able to nod or shake his head. He is not presently on pressors. His blood pressure has improved. He has been afebrile with a normal white blood cell count. Cultures were obtained. He was empirically treated with vancomycin and Zosyn. PAST MEDICAL HISTORY: Positive for end-stage renal disease on hemodialysis, diabetes mellitus, hypertension, hyperlipidemia, COPD, dementia. ALLERGIES: No known allergies. SOCIAL HISTORY: Residing in a assisted facility. No active tobacco or alcohol use. SYSTEMS REVIEW: Neurologic: Positive for dementia and altered mentation. Cardiac: Negative chest pain or palpitations. Respiratory: As per HPI. Gastrointestinal: Negative vomiting or diarrhea. Genitourinary: End-stage renal disease on dialysis. LABORATORY DATA: White count 6.6, hematocrit 28.1, platelet count 305. BUN 10, creatinine 3.0, lactic acid 1.8. Blood cultures are pending. Urinalysis: White cells 4, red cells 3. IMAGING: Chest x-ray negative for acute infiltrate. PHYSICAL EXAMINATION: General: On exam, he is awake. He is able to answer simple questions by nodding his head or shaking his head. He is orally intubated. Vital Signs: Temperature 97.4, blood pressure 165/79, pulse 107 and regular, respirations 17 per minute. Eyes: Sclerae are anicteric. Heart: Heart sounds S1, S2. Lungs: Air entry bilaterally. Abdomen: Soft. Nontender. Extremities: Positive for edema. There are chronic ulcerations present over the right foot which is chronically swollen. No purulent drainage or foul odor noted. Genitourinary: Webster catheter is in place. IMPRESSION: 1. Hypotension. Possible sepsis. 2. Respiratory failure. 3. Methicillin-resistant Staphylococcus aureus bacteremia. 4. End-stage renal disease, on hemodialysis. 5. Dementia. PLAN: Await sepsis workup. Vancomycin has been re-dosed. Obtain random vancomycin level. Continue empiric treatment with Zosyn for possible chcf acquired pathogens. Ventilatory support. Contact precautions. We will follow. Thank you for the kind referral. MARGARET PASCAL M.D. [id number]
--- NOTE | 2018-11-22 13:44 | PN ---
Teaching Attending Note Name of Resident: Alessandro Bennett ATTENDING PHYSICIAN STATEMENT I saw and evaluated the patient. I reviewed the resident's note and discussed the case with the resident. I agree with the resident's findings and plan as documented. SUBJECTIVE: Patient seen and examined in the ICU. Remains intubated and sedated. Currently no pressors. R IJ Trialysis inserted under direct US due to no venous access. Intake & Output 11/19/18 11/20/18 11/21/18 11/22/18 23:59 23:59 23:59 23:59 Output Total 600 Balance -600 Weight 182 lb 15.739 oz 176 lb 1 oz Last Vital Signs Temp Pulse Resp BP Pulse Ox 97.9 F 74 18 134/75 100 11/22/18 10:00 11/22/18 12:00 11/22/18 12:40 11/22/18 12:00 11/22/18 08:11 Active Medications Apixaban (Eliquis -) 5 mg PO BID [facility] Atorvastatin Calcium (Lipitor -) 20 mg PO HS [facility] Chlorhexidine Gluconate (Hibiclens For Decolonization -) 1 applic TP HS [facility] Clopidogrel Bisulfate (Plavix -) 75 mg PO DAILY [facility] Collagenase (Santyl -) 1 applic TP DAILY [facility]; Protocol Escitalopram Oxalate (Lexapro -) 10 mg PO DAILY [facility] Heparin Sodium (Porcine) (Heparin -) 5,000 unit SQ TID [facility] Last Admin: 11/22/18 05:12 Dose: 5,000 unit Fentanyl 500 mcg/ Dextrose 100 mls @ 5 mls/hr IVPB TITR [facility] Last Admin: 11/22/18 07:00 Dose: 100 mcg/hr, 20 mls/hr Norepinephrine Bitartrate 8, (000 mcg/ Dextrose) 500 mls @ 9.33 mls/hr IV ASDIR [facility]; Protocol Last Admin: 11/21/18 23:35 Dose: 0.03 mcg/kg/min, 9.33 mls/hr Dextrose (D5w -) 1,000 mls @ 20 mls/hr IV ASDIR [facility] Piperacillin Sod/Tazobactam (Sod 2.25 gm/ Dextrose) 50 mls @ 100 mls/hr IVPB Q8H-IV [facility]; Protocol Insulin Aspart (Novolog Vial Sliding Scale -) 1 vial SQ ACHS [facility]; Protocol Last Admin: 11/22/18 07:27 Dose: Not Given Midodrine (Proamatine -) 10 mg PO MoWeFr@0800 [facility] Multi-Ingredient Ointment (Zinc Oxide 20% Topical Oint) 1 gm TP BID [facility] Mupirocin (Bactroban Ointment (For Decolonization) -) 1 applic NS BID [facility] Stop: 11/27/18 09:59 Last Admin: 11/22/18 09:27 Dose: 1 applic Pantoprazole Sodium (Protonix Iv) 40 mg IVPUSH DAILY [facility] Last Admin: 11/22/18 09:28 Dose: 40 mg Sevelamer Carbonate (Renvela -) 1,600 mg PO TIDCM [facility] Last Admin: 11/22/18 09:00 Dose: Not Given Tamsulosin HCl (Flomax -) 0.4 mg PO HS [facility] Constitutional: Yes: Intubated and sedated Eyes: Yes: Conjunctiva Clear HENT: Yes: Atraumatic, Normocephalic Neck: Yes: Supple, Trachea Midline Cardiovascular: Yes: Regular Rate and Rhythm, S1, S2. No: JVD, Gallop, Murmur Respiratory: Yes: Diminished, Intubated, Mechanically Ventilated Gastrointestinal: Yes: Normal Bowel Sounds, Soft. No: Distention Extremities: Yes: Other (Right ankle/foot wrapped in Kerlix dressing with deformed digits; extensive hemostatic wound along the lateral aspect) Edema: No Peripheral Pulses WNL: Yes Neurological: Yes: Sedated, arousable. No: Facial Droop, Seizure Labs: Laboratory Results - last 24 hr 11/21/18 11/21/18 11/21/18 21:03 21:03 21:03 WBC 7.7 RBC 3.18 L Hgb 9.9 L Hct 30.2 L D MCV 95.1 MCH 31.0 MCHC 32.6 RDW 17.0 H Plt Count 388 MPV 8.7 D Absolute Neuts (auto) 4.9 Neutrophils % 64.0 Lymphocytes % 20.2 Monocytes % 10.9 H Eosinophils % 3.8 Basophils % 1.1 Nucleated RBC % 0 PT with INR 15.60 H INR 1.32 H Anticoagulation Therapy Puncture Site ABG pH ABG pCO2 at Pt Temp ABG pO2 at Pt Temp ABG HCO3 ABG O2 Sat (Measured) ABG O2 Content ABG Base Excess Johan Test Carboxyhemoglobin Methemoglobin O2 Delivery Device Oxygen Flow Rate Vent Mode Vent Rate Mechanical Rate Pressure Support Vent Sodium 136 Potassium 4.2 Chloride 97 L Carbon Dioxide 26 Anion Gap 13 BUN 10 Creatinine 3.0 H Creat Clearance w eGFR 20.56 Random Glucose 127 H Lactic Acid Calcium 8.4 L Total Bilirubin 0.5 AST 32 ALT 11 L Alkaline Phosphatase 120 H Creatine Kinase 109 Creatine Kinase Index CK-MB (CK-2) Troponin I < 0.02 Total Protein 9.0 H Albumin 2.3 L Triglycerides 164 H Cholesterol 154 Total LDL Cholesterol 88 HDL Cholesterol 50 Urine Color Urine Appearance Urine pH Ur Specific [place] Urine Protein Urine Glucose (UA) Urine Ketones Urine Blood Urine Nitrite Urine Bilirubin Urine Urobilinogen Ur Leukocyte Esterase Urine WBC (Auto) Urine RBC (Auto) Urine Bacteria Hyaline Casts Urine Mucus Random Vancomycin Blood Type Antibody Screen Prewarmed Antibody Srcn Antibody Identification Antigen Identification 11/21/18 11/22/18 11/22/18 22:52 00:40 00:40 WBC RBC Hgb Hct MCV MCH MCHC RDW Plt Count MPV Absolute Neuts (auto) Neutrophils % Lymphocytes % Monocytes % Eosinophils % Basophils % Nucleated RBC % PT with INR INR Anticoagulation Therapy No Result Required. Puncture Site No Result Required. ABG pH 7.45 ABG pCO2 at Pt Temp 35.1 D ABG pO2 at Pt Temp 104.0 H ABG HCO3 24.2 ABG O2 Sat (Measured) 97.9 ABG O2 Content 11.7 L ABG Base Excess 0.8 Johan Test No Result Required. Carboxyhemoglobin 1.0 Methemoglobin 0.1 L O2 Delivery Device No Result Required. Oxygen Flow Rate No Result Required. Vent Mode No Result Required. Vent Rate No Result Required. Mechanical Rate No Result Required. Pressure Support Vent No Result Required. Sodium Potassium Chloride Carbon Dioxide Anion Gap BUN Creatinine Creat Clearance w eGFR Random Glucose Lactic Acid 1.8 Calcium Total Bilirubin AST ALT Alkaline Phosphatase Creatine Kinase Creatine Kinase Index CK-MB (CK-2) Troponin I Total Protein Albumin Triglycerides Cholesterol Total LDL Cholesterol HDL Cholesterol Urine Color Urine Appearance Urine pH Ur Specific [place] Urine Protein Urine Glucose (UA) Urine Ketones Urine Blood Urine Nitrite Urine Bilirubin Urine Urobilinogen Ur Leukocyte Esterase Urine WBC (Auto) Urine RBC (Auto) Urine Bacteria Hyaline Casts Urine Mucus Random Vancomycin Blood Type A POSITIVE Antibody Screen Positive H Prewarmed Antibody Srcn Negative Antibody Identification No Result Required. Antigen Identification No Result Required. 11/22/18 11/22/18 11/22/18 03:25 09:54 09:54 WBC 6.6 RBC 2.94 L Hgb 8.9 L Hct 28.1 L MCV 95.5 MCH 30.3 MCHC 31.7 L RDW 16.2 H Plt Count 305 D MPV 8.0 Absolute Neuts (auto) 4.0 Neutrophils % 61.6 Lymphocytes % 26.5 D Monocytes % 7.8 Eosinophils % 3.0 Basophils % 1.1 Nucleated RBC % 0 PT with INR INR Anticoagulation Therapy Puncture Site ABG pH ABG pCO2 at Pt Temp ABG pO2 at Pt Temp ABG HCO3 ABG O2 Sat (Measured) ABG O2 Content ABG Base Excess Johan Test Carboxyhemoglobin Methemoglobin O2 Delivery Device Oxygen Flow Rate Vent Mode Vent Rate Mechanical Rate Pressure Support Vent Sodium 139 Potassium 3.8 Chloride 103 Carbon Dioxide 27 Anion Gap 9 BUN 14 Creatinine 3.4 H Creat Clearance w eGFR 17.79 Random Glucose 92 Lactic Acid Calcium 7.7 L Total Bilirubin 0.4 AST 50 H ALT 15 Alkaline Phosphatase 104 Creatine Kinase 1260 H Creatine Kinase Index 1.4 CK-MB (CK-2) 18.4 H Troponin I 0.41 H Total Protein 7.6 Albumin 2.0 L Triglycerides Cholesterol Total LDL Cholesterol HDL Cholesterol Urine Color Yellow Urine Appearance Clear Urine pH 7.0 D Ur Specific [place] 1.013 Urine Protein 3+ H Urine Glucose (UA) Negative Urine Ketones Negative Urine Blood Negative Urine Nitrite Negative Urine Bilirubin Negative Urine Urobilinogen Negative Ur Leukocyte Esterase Negative Urine WBC (Auto) 4 Urine RBC (Auto) 3 Urine Bacteria Rare Hyaline Casts 1 Urine Mucus Rare Random Vancomycin Blood Type Antibody Screen Prewarmed Antibody Srcn Antibody Identification Antigen Identification 11/22/18 11/22/18 09:54 11:33 WBC RBC Hgb Hct MCV MCH MCHC RDW Plt Count MPV Absolute Neuts (auto) Neutrophils % Lymphocytes % Monocytes % Eosinophils % Basophils % Nucleated RBC % PT with INR INR Anticoagulation Therapy Puncture Site ABG pH ABG pCO2 at Pt Temp ABG pO2 at Pt Temp ABG HCO3 ABG O2 Sat (Measured) ABG O2 Content ABG Base Excess Johan Test Carboxyhemoglobin Methemoglobin O2 Delivery Device Oxygen Flow Rate Vent Mode Vent Rate Mechanical Rate Pressure Support Vent Sodium Potassium Chloride Carbon Dioxide Anion Gap BUN Creatinine Creat Clearance w eGFR Random Glucose Lactic Acid 1.2 Calcium Total Bilirubin AST ALT Alkaline Phosphatase Creatine Kinase Creatine Kinase Index CK-MB (CK-2) Troponin I Total Protein Albumin Triglycerides Cholesterol Total LDL Cholesterol HDL Cholesterol Urine Color Urine Appearance Urine pH Ur Specific [place] Urine Protein Urine Glucose (UA) Urine Ketones Urine Blood Urine Nitrite Urine Bilirubin Urine Urobilinogen Ur Leukocyte Esterase Urine WBC (Auto) Urine RBC (Auto) Urine Bacteria Hyaline Casts Urine Mucus Random Vancomycin 14.5 L Blood Type Antibody Screen Prewarmed Antibody Srcn Antibody Identification Antigen Identification Assessment/Plan Acute Respiratory Failure R/O PNA ESRD on HD DM HTN HLD Prior CVA COPD Resolved hypotension R/O Acute CVA Sedation vacation SBTs as tolerated ABX per ID Neruo check once off sedation HD per Renal Remove IO Strict I & O Midodrine VTE prophylaxis Requires ICU monitoring Dr Palmer Critical care time spent in reviewing chart, evaluating patient and formulating plan - 36 minutes.
--- NOTE | 2018-11-22 13:52 | PN ---
Physical Exam: SUBJECTIVE: Patient seen and examined Patient was seen and examined by me. Patient was intubated. No acute overnight events. Will place trialysis catheter in today for access. OBJECTIVE: Vital Signs Period Temp Pulse Resp BP Sys/Zamorano Pulse Ox Last 24 Hr 97.4 F-98.9 F 74-101 15-24 60-165/34-88 92-100 GENERAL: Patient is intubated HEAD: Normal with no signs of trauma. EYES: PERRL, unable to assess ocular motion, sclera anicteric, conjunctiva clear. No ptosis. ENT: Ears normal, nares patent, oropharynx clear without exudates, moist mucous membranes. NECK: Trachea midline, full range of motion, supple. LUNGS: rhonchi breath sounds bilaterally HEART: Regular rate and rhythm, S1, S2 without murmur, rub or gallop. ABDOMEN: Soft, nontender, nondistended, normoactive bowel sounds, no guarding, no rebound, no hepatosplenomegaly, no masses. EXTREMITIES: 2+ pulses, warm, right foot edematous with lesions (looks improved from previous admission). NEUROLOGICAL: unable to assess; intubated PSYCH: unable to assess; intubated SKIN: Warm, dry, normal turgor, no rashes or lesions noted Laboratory Results - last 24 hr 11/21/18 11/21/18 11/21/18 21:03 21:03 21:03 WBC 7.7 RBC 3.18 L Hgb 9.9 L Hct 30.2 L D MCV 95.1 MCH 31.0 MCHC 32.6 RDW 17.0 H Plt Count 388 MPV 8.7 D Absolute Neuts (auto) 4.9 Neutrophils % 64.0 Lymphocytes % 20.2 Monocytes % 10.9 H Eosinophils % 3.8 Basophils % 1.1 Nucleated RBC % 0 PT with INR 15.60 H INR 1.32 H Anticoagulation Therapy Puncture Site ABG pH ABG pCO2 at Pt Temp ABG pO2 at Pt Temp ABG HCO3 ABG O2 Sat (Measured) ABG O2 Content ABG Base Excess Johan Test Carboxyhemoglobin Methemoglobin O2 Delivery Device Oxygen Flow Rate Vent Mode Vent Rate Mechanical Rate Pressure Support Vent Sodium 136 Potassium 4.2 Chloride 97 L Carbon Dioxide 26 Anion Gap 13 BUN 10 Creatinine 3.0 H Creat Clearance w eGFR 20.56 Random Glucose 127 H Lactic Acid Calcium 8.4 L Total Bilirubin 0.5 AST 32 ALT 11 L Alkaline Phosphatase 120 H Creatine Kinase 109 Creatine Kinase Index CK-MB (CK-2) Troponin I < 0.02 Total Protein 9.0 H Albumin 2.3 L Triglycerides 164 H Cholesterol 154 Total LDL Cholesterol 88 HDL Cholesterol 50 Urine Color Urine Appearance Urine pH Ur Specific [place] Urine Protein Urine Glucose (UA) Urine Ketones Urine Blood Urine Nitrite Urine Bilirubin Urine Urobilinogen Ur Leukocyte Esterase Urine WBC (Auto) Urine RBC (Auto) Urine Bacteria Hyaline Casts Urine Mucus Random Vancomycin Blood Type Antibody Screen Prewarmed Antibody Srcn Antibody Identification Antigen Identification 11/21/18 11/22/18 11/22/18 22:52 00:40 00:40 WBC RBC Hgb Hct MCV MCH MCHC RDW Plt Count MPV Absolute Neuts (auto) Neutrophils % Lymphocytes % Monocytes % Eosinophils % Basophils % Nucleated RBC % PT with INR INR Anticoagulation Therapy No Result Required. Puncture Site No Result Required. ABG pH 7.45 ABG pCO2 at Pt Temp 35.1 D ABG pO2 at Pt Temp 104.0 H ABG HCO3 24.2 ABG O2 Sat (Measured) 97.9 ABG O2 Content 11.7 L ABG Base Excess 0.8 Johan Test No Result Required. Carboxyhemoglobin 1.0 Methemoglobin 0.1 L O2 Delivery Device No Result Required. Oxygen Flow Rate No Result Required. Vent Mode No Result Required. Vent Rate No Result Required. Mechanical Rate No Result Required. Pressure Support Vent No Result Required. Sodium Potassium Chloride Carbon Dioxide Anion Gap BUN Creatinine Creat Clearance w eGFR Random Glucose Lactic Acid 1.8 Calcium Total Bilirubin AST ALT Alkaline Phosphatase Creatine Kinase Creatine Kinase Index CK-MB (CK-2) Troponin I Total Protein Albumin Triglycerides Cholesterol Total LDL Cholesterol HDL Cholesterol Urine Color Urine Appearance Urine pH Ur Specific [place] Urine Protein Urine Glucose (UA) Urine Ketones Urine Blood Urine Nitrite Urine Bilirubin Urine Urobilinogen Ur Leukocyte Esterase Urine WBC (Auto) Urine RBC (Auto) Urine Bacteria Hyaline Casts Urine Mucus Random Vancomycin Blood Type A POSITIVE Antibody Screen Positive H Prewarmed Antibody Srcn Negative Antibody Identification No Result Required. Antigen Identification No Result Required. 11/22/18 11/22/18 11/22/18 03:25 09:54 09:54 WBC 6.6 RBC 2.94 L Hgb 8.9 L Hct 28.1 L MCV 95.5 MCH 30.3 MCHC 31.7 L RDW 16.2 H Plt Count 305 D MPV 8.0 Absolute Neuts (auto) 4.0 Neutrophils % 61.6 Lymphocytes % 26.5 D Monocytes % 7.8 Eosinophils % 3.0 Basophils % 1.1 Nucleated RBC % 0 PT with INR INR Anticoagulation Therapy Puncture Site ABG pH ABG pCO2 at Pt Temp ABG pO2 at Pt Temp ABG HCO3 ABG O2 Sat (Measured) ABG O2 Content ABG Base Excess Johan Test Carboxyhemoglobin Methemoglobin O2 Delivery Device Oxygen Flow Rate Vent Mode Vent Rate Mechanical Rate Pressure Support Vent Sodium 139 Potassium 3.8 Chloride 103 Carbon Dioxide 27 Anion Gap 9 BUN 14 Creatinine 3.4 H Creat Clearance w eGFR 17.79 Random Glucose 92 Lactic Acid Calcium 7.7 L Total Bilirubin 0.4 AST 50 H ALT 15 Alkaline Phosphatase 104 Creatine Kinase 1260 H Creatine Kinase Index 1.4 CK-MB (CK-2) 18.4 H Troponin I 0.41 H Total Protein 7.6 Albumin 2.0 L Triglycerides Cholesterol Total LDL Cholesterol HDL Cholesterol Urine Color Yellow Urine Appearance Clear Urine pH 7.0 D Ur Specific [place] 1.013 Urine Protein 3+ H Urine Glucose (UA) Negative Urine Ketones Negative Urine Blood Negative Urine Nitrite Negative Urine Bilirubin Negative Urine Urobilinogen Negative Ur Leukocyte Esterase Negative Urine WBC (Auto) 4 Urine RBC (Auto) 3 Urine Bacteria Rare Hyaline Casts 1 Urine Mucus Rare Random Vancomycin Blood Type Antibody Screen Prewarmed Antibody Srcn Antibody Identification Antigen Identification 11/22/18 11/22/18 09:54 11:33 WBC RBC Hgb Hct MCV MCH MCHC RDW Plt Count MPV Absolute Neuts (auto) Neutrophils % Lymphocytes % Monocytes % Eosinophils % Basophils % Nucleated RBC % PT with INR INR Anticoagulation Therapy Puncture Site ABG pH ABG pCO2 at Pt Temp ABG pO2 at Pt Temp ABG HCO3 ABG O2 Sat (Measured) ABG O2 Content ABG Base Excess Johan Test Carboxyhemoglobin Methemoglobin O2 Delivery Device Oxygen Flow Rate Vent Mode Vent Rate Mechanical Rate Pressure Support Vent Sodium Potassium Chloride Carbon Dioxide Anion Gap BUN Creatinine Creat Clearance w eGFR Random Glucose Lactic Acid 1.2 Calcium Total Bilirubin AST ALT Alkaline Phosphatase Creatine Kinase Creatine Kinase Index CK-MB (CK-2) Troponin I Total Protein Albumin Triglycerides Cholesterol Total LDL Cholesterol HDL Cholesterol Urine Color Urine Appearance Urine pH Ur Specific [place] Urine Protein Urine Glucose (UA) Urine Ketones Urine Blood Urine Nitrite Urine Bilirubin Urine Urobilinogen Ur Leukocyte Esterase Urine WBC (Auto) Urine RBC (Auto) Urine Bacteria Hyaline Casts Urine Mucus Random Vancomycin 14.5 L Blood Type Antibody Screen Prewarmed Antibody Srcn Antibody Identification Antigen Identification Active Medications Generic Name Dose Route Start Last Admin Trade Name Freq PRN Reason Stop Dose Admin Apixaban 5 mg 11/22/18 10:00 Eliquis - PO BID [facility] Atorvastatin Calcium 20 mg 11/22/18 22:00 Lipitor - PO HS [facility] Chlorhexidine Gluconate 1 applic 11/22/18 22:00 Hibiclens For Decolonization - TP HS [facility] Clopidogrel Bisulfate 75 mg 11/22/18 10:00 Plavix - PO DAILY [facility] Collagenase 1 applic 11/22/18 10:00 Santyl - TP DAILY [facility] Protocol Escitalopram Oxalate 10 mg 11/22/18 10:00 Lexapro - PO DAILY [facility] Heparin Sodium (Porcine) 5,000 unit 11/22/18 06:00 11/22/18 05:12 Heparin - SQ 5,000 unit TID [facility] Administration Fentanyl 500 mcg/ Dextrose 100 mls @ 5 mls/hr 11/21/18 22:15 11/22/18 07:00 IVPB 100 mcg/hr TITR [facility] 20 mls/hr Administration 25 MCG/HR Norepinephrine Bitartrate 8, 500 mls @ 9.33 mls/hr 11/21/18 22:45 11/21/18 23 :35 000 mcg/ Dextrose IV 0.03 mcg/kg/min ASDIR [facility] 9.33 mls/hr Administration Protocol 0.03 MCG/KG/MIN Dextrose 1,000 mls @ 20 mls/hr 11/22/18 00:30 D5w - IV ASDIR [facility] Piperacillin Sod/Tazobactam 50 mls @ 100 mls/hr 11/22/18 11:15 Sod 2.25 gm/ Dextrose IVPB Q8H-IV [facility] Protocol Insulin Aspart 1 vial 11/22/18 07:00 11/22/18 07:27 Novolog Vial Sliding Scale - SQ Not Given ACHS [facility] Protocol Midodrine 10 mg 11/23/18 08:00 Proamatine - PO MoWeFr@0800 [facility] Multi-Ingredient Ointment 1 gm 11/22/18 10:00 Zinc Oxide 20% Topical Oint TP BID [facility] Mupirocin 1 applic 11/22/18 10:00 11/22/18 09:27 Bactroban Ointment (For Decolonization) - NS 11/27/18 09:59 1 applic BID [facility] Administration Pantoprazole Sodium 40 mg 11/22/18 10:00 11/22/18 09:28 Protonix Iv IVPUSH 40 mg DAILY [facility] Administration Sevelamer Carbonate 1,600 mg 11/22/18 08:00 11/22/18 09:00 Renvela - PO Not Given TIDCM [facility] Tamsulosin HCl 0.4 mg 11/22/18 22:00 Flomax - PO HS [facility] ASSESSMENT/PLAN: 73 [facility] M resident of [facility] with a significant PMHx of ESRD on dialysis (MWF) ,DM, HTN, HLD, prior CVA, and COPD who presents to the emergency department, via EMS after pulling out his dialysis catheter found to be unresponsive and hypotensive. Intubated in ER and admitted to ICU for further management. Neuro: Patient was unresponsive and subsequently intubated in the emergency department. CT head was negative for acute pathology. -Neuro checks to assess for mental status changes -Currently on fentanyl drip Pulmonology: Currently intubated at the following settings: 15 RR/450 mL TV/70% FiO2/PEEP 5. BD treatment PRN Maintain SpO2 >90% Patient will have weaning trial in AM CV: Patient was hypotensive likely secondary to HD vs possible sepsis (pulmonary infiltrate seen on cxr). Patient received 3 L IVF in the ED and initially started on levophed now off. Continue midodrine Continue eliquis for afib ([id number] is 5) Continue statin for HLD Echo 10/31/18 showed moderate MR/TR with normal LV/RV size and function. 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 Patient started on vancomycin and zosyn. A random vancomycin ordered. ID consulted Endo: BGM q6hrs ISS q6hrs Renal: Last received dialysis 11/21/18 Nephrology consulted New HD access needed; trialysis placed in RIJ today (refer to procedure note). FEN: NPO currently, may advance diet if weaning trial successful tomorrow. If not, will start ng tube feeds monitor electrolytes and replete as necessary D5 at 20 mL/hr LTD: ET tube placed 11/21/18 IO placed 11/21/18. Removed 11/22/18 Trialysis placed 11/22/18 Dispo: Continue to monitor in the ICU Visit type - Emergency Visit Emergency Visit: Yes ED Registration Date: 11/21/18 Care time: The patient presented to the Emergency Department on the above date and was hospitalized for further evaluation of their emergent condition. - New Patient This patient is new to me today: Yes Date on this admission: 11/22/18 - Critical Care Critical Care patient: Yes Total Critical Care Time (in minutes): 36 Critical Care Statement: The care of this patient involved high complexity decision making to prevent further life threatening deterioration of the patient 's condition and/or to evaluate & treat vital organ system(s) failure or risk of failure. - Discharge Referral Referred to [facility] Med P.C.: No
[2018-11-22] MEDS ORDERED: DEXTROSE 5%-WATER - 50 ML IVPB ONE ×2 (14:20→17:30)
[2018-11-22] MEDS ORDERED: PIPERACILLIN/TAZOBACTAM 2.25 GM VIAL IVPB ONE ×2 (14:20→17:29)
[2018-11-22] MEDS: PIPERACILLIN/TAZOB 2.25 GM 2.25 GM in DEXTROSE 5%-WATER - 50 ML IVPB SCH ×2 (14:37→17:39)
--- NOTE | 2018-11-22 14:37 | PROC ---
Central Line Insertion Indication: Other (dialysis with trialysis ) Risks and Benefits Explained: Yes Consent on Chart: Yes (consent obtained-re gomes) Central Line: Dialysis Cath, Tri Lumen Anesthesia: 1% Lidocaine Sterile Technique: Yes Ultrasound Guided Assistance: Yes Position: Right Internal Jugular Post Insertion: Yes: Chest X-Ray Ordered Sterile Dressing Applied: Yes
[2018-11-22] MEDS: APIXABAN 5 MG TABLET PO SCH ×2 (14:38→22:04)
[2018-11-22] MEDS: ESCITALOPRAM OXALATE 10 MG TABLET (FP) PO SCH (14:38)
[2018-11-22] MEDS: CLOPIDOGREL BISULFATE 75 MG TABLET (FP) PO SCH (14:41)
--- NOTE | 2018-11-22 14:59 | CONSULT ---
Consult Consult Specialty:: Nephrology Reason for Consultation:: ESRD - History of Present Illness Chief Complaint: sent in for pulling out permacath History of Present Illness: Pt is a 73 year old male with pmhx of ESRD, DM, HTN, HLD, cva, COPD, and UTI who was sent in to ER after pulling out his permacath. Pt was found found to be hypotensive in the ER. He was also lethargic. Pt was intubated and started on pressors. He is now off of pressors but remains intubated. He was last dialyzed yesterday and had about 2:53 of HD. He opens his eyes to tactile stimuli. He is unable to give history. - History Source History Provided By: Patient - Past Medical History [employer]: Yes: CVA, Dementia Cardio/Vascular: Yes: AFIB, CAD (PVD), CHF, HTN, Hyperlipdemia Pulmonary: Yes: COPD Renal/: Yes: Renal Failure, Hemodialysis Endocrine: Yes: Diabetes Mellitus - Alcohol/Substance Use Hx Alcohol Use: No - Smoking History Smoking history: Unknown if ever smoked Have you smoked in the past 12 months: No - Social History Usual Living Arrangement: Care Home Home Medications - Allergies Allergies/Adverse Reactions: Allergies Allergy/AdvReac Type Severity Reaction Status Date / Time watermelon Allergy Unknown Verified 10/29/18 06:33 melon Allergy Verified 10/29/18 06:33 No Known Drug Allergies Allergy Verified 10/29/18 06:34 - Home Medications Home Medications: Ambulatory Orders Albuterol 2.5/Ipratropium 0.5 [Duoneb -] 1 amp NEB Q6H PRN #0 amp 07/12/17 Allopurinol [Zyloprim -] 100 mg PO DAILY tablet 07/12/17 Atorvastatin Ca [Lipitor] 20 mg PO HS tablet 07/12/17 Clopidogrel Bisulfate [Plavix -] 75 mg PO DAILY tablet 07/12/17 Collagenase Clostridium Hist. [Santyl -] 250 unit TP DAILY 08/31/18 Lisinopril 10 mg PO DAILY 08/31/18 Collagenase Clostridium Hist. [Santyl -] 1 applic TP DAILY tube 09/06/18 Albuterol Sulfate [Proair Hfa] 2 puff IH Q6H PRN 10/29/18 Escitalopram Oxalate [Lexapro -] 10 mg PO DAILY 10/29/18 Folic Acid/Vit B Complex and C [Dialyvite Tablet] 1 each PO DAILY 10/29/18 Insulin Lispro [Humalog Kwikpen U-100] 0 unit SQ ACHS 10/29/18 Midodrine HCl 10 mg PO MOWEFR 10/29/18 Sevelamer Carbonate [Renvela -] 1,600 mg PO TID 10/29/18 Tamsulosin HCl [Flomax] 0.4 mg PO HS 10/29/18 Zinc Oxide 20% Topical Oint 454 gm NR BID 10/29/18 Ceftaroline Fosamil Acetate [Teflaro (Restricted To Id)] 200 mg IVPB BID vial 11/17/18 Insulin Sliding Scale [Novolog Vial Sliding Scale -] 1 vial SQ TIDAC #1 vial Apixaban [Eliquis -] 5 mg PO BID #30 tablet MDD 2 11/19/18 Vancomycin 1 Gram (Pre-Docked) [Vancomycin (Pre-Docked)] 1,000 mg IVPB Q2D #14 bag 11/19/18 Family Disease History - Family Disease History Family History: Denies Review of Systems Unable to obtain ROS, reason: pt intubated/lethargic Physical Exam Vital Signs: Vital Signs Temperature 97.9 F 11/22/18 10:00 Pulse Rate 74 11/22/18 12:00 Respiratory Rate 18 11/22/18 12:40 Blood Pressure 134/75 11/22/18 12:00 O2 Sat by Pulse Oximetry (%) 100 11/22/18 08:11 Constitutional: Yes: Calm Eyes: Yes: Conjunctiva Clear HENT: Yes: Atraumatic Cardiovascular: Yes: S1, S2 Respiratory: Yes: Mechanically Ventilated Gastrointestinal: Yes: Soft Renal/: Yes: Webster Present Musculoskeletal: Yes: Muscle Weakness Edema: LLE: Trace, RLE: Trace Wound/Incision: Yes: Dressing Dry and Intact Neurological: Yes: Lethargy Labs: CBC, BMP 11/22/18 09:54 11/22/18 09:54 Laboratory Tests 11/21/18 11/21/18 11/22/18 21:03 21:03 09:54 Hgb 9.9 L 8.9 L Sodium Potassium BUN 10 Creatinine 3.0 H 11/22/18 09:54 Hgb Sodium 139 Potassium 3.8 BUN 14 Creatinine 3.4 H Imaging - Results Cat Scan: Report Reviewed Problem List - Problems (1) ESRD (end stage renal disease) Code(s): N18.6 - END STAGE RENAL DISEASE (2) Anemia Code(s): D64.9 - ANEMIA, UNSPECIFIED Assessment/Plan Current Medications Generic Name Dose Route Start Last Admin Trade Name Freq PRN Reason Stop Dose Admin Apixaban 5 mg 11/22/18 10:00 11/22/18 14:38 Eliquis - PO Not Given BID [facility] Atorvastatin Calcium 20 mg 11/22/18 22:00 Lipitor - PO HS [facility] Chlorhexidine Gluconate 1 applic 11/22/18 22:00 Hibiclens For Decolonization - TP HS [facility] Clopidogrel Bisulfate 75 mg 11/22/18 10:00 11/22/18 14:41 Plavix - PO Not Given DAILY [facility] Collagenase 1 applic 11/22/18 10:00 Santyl - TP DAILY [facility] Protocol Escitalopram Oxalate 10 mg 11/22/18 10:00 11/22/18 14:38 Lexapro - PO Not Given DAILY [facility] Heparin Sodium (Porcine) 5,000 unit 11/22/18 06:00 11/22/18 14:42 Heparin - SQ 5,000 unit TID [facility] Administration Fentanyl 500 mcg/ Dextrose 100 mls @ 5 mls/hr 11/21/18 22:15 11/22/18 07:00 IVPB 100 mcg/hr TITR [facility] 20 mls/hr Administration 25 MCG/HR Norepinephrine Bitartrate 8, 500 mls @ 9.33 mls/hr 11/21/18 22:45 11/21/18 23 :35 000 mcg/ Dextrose IV 0.03 mcg/kg/min ASDIR [facility]AN[facility] 9.33 mls/hr Administration Protocol 0.03 MCG/KG/MIN Dextrose 1,000 mls @ 20 mls/hr 11/22/18 00:30 11/22/18 14:38 D5w - IV Not Given ASDIR [facility] Piperacillin Sod/Tazobactam 50 mls @ 100 mls/hr 11/22/18 11:15 11/22/18 14:37 Sod 2.25 gm/ Dextrose IVPB 100 mls/hr Q8H-IV [facility] Administration Protocol Insulin Aspart 1 vial 11/22/18 07:00 11/22/18 07:27 Novolog Vial Sliding Scale - SQ Not Given ACHS [facility] Protocol Midodrine 10 mg 11/23/18 08:00 Proamatine - PO [id number] [facility] Multi-Ingredient Ointment 1 gm 11/22/18 10:00 Zinc Oxide 20% Topical Oint TP BID [facility] Mupirocin 1 applic 11/22/18 10:00 11/22/18 09:27 Bactroban Ointment (For Decolonization) - NS 11/27/18 09:59 1 applic BID [facility] Administration Pantoprazole Sodium 40 mg 11/22/18 10:00 11/22/18 09:28 Protonix Iv IVPUSH 40 mg DAILY [facility] Administration Sevelamer Carbonate 1,600 mg 11/22/18 08:00 11/22/18 14:39 Renvela - PO Not Given TIDCM [facility] Tamsulosin HCl 0.4 mg 11/22/18 22:00 Flomax - PO [facility] Microbiology Impression 1. ESRD 2. acute rep failure 3. DM 4. hyperlipidemia 5. HTN 6. gout 7. proteinuria 8. hypotension/shock 9. sepsis Plan - pt last dialyzed yesterday - will evaluate for HD tomorrow - follow cultures - bp is improved off of pressors - remove intraosseous - vent support - epogen for anemia - renal diet - will follow
--- NOTE | 2018-11-22 15:24 | CON.CARD ---
Consult Consult Specialty:: Cardiology Referred by:: peter Reason for Consultation:: elevated troponin, hypotension - History of Present Illness Chief Complaint: pulled out HD catheter, low bp History of Present Illness: He is a 73 year old male with pmhx of ESRD, DM, HTN, HLD, cva, COPD, and UTI who was sent in to ER after pulling out his permacath. Pt was found found to be hypotensive in the ER. He was also lethargic. Pt was intubated and started on pressors. He had a trialysis catheter placed. He was briefly on pressors. He does sometimes need midodrine on HD. troponin is elevated. echo 11/06/18 normal EF. - Past Medical History [employer]: Yes: CVA, Dementia Cardio/Vascular: Yes: AFIB, CAD (PVD), CHF, HTN, Hyperlipdemia Pulmonary: Yes: COPD Renal/: Yes: Renal Failure, Hemodialysis Endocrine: Yes: Diabetes Mellitus - Alcohol/Substance Use Hx Alcohol Use: No - Smoking History Smoking history: Unknown if ever smoked Have you smoked in the past 12 months: No - Social History Usual [facility] Ar[facility]ement[facility] Home Medications - Allergies Allergies/Adverse Reactions: Allergies Allergy/AdvReac Type Severity Reaction Status Date / Time watermelon Allergy Unknown Verified 10/29/18 06:33 melon Allergy Verified 10/29/18 06:33 No Known Drug Allergies Allergy Verified 10/29/18 06:34 - Home Medications Home Medications: Ambulatory Orders Albuterol 2.5/Ipratropium 0.5 [Duoneb -] 1 amp NEB Q6H PRN #0 amp 07/12/17 Allopurinol [Zyloprim -] 100 mg PO DAILY tablet 07/12/17 Atorvastatin Ca [Lipitor] 20 mg PO HS tablet 07/12/17 Clopidogrel Bisulfate [Plavix -] 75 mg PO DAILY tablet 07/12/17 Collagenase Clostridium Hist. [Santyl -] 250 unit TP DAILY 08/31/18 Lisinopril 10 mg PO DAILY 08/31/18 Collagenase Clostridium Hist. [Santyl -] 1 applic TP DAILY tube 09/06/18 Albuterol Sulfate [Proair Hfa] 2 puff IH Q6H PRN 10/29/18 Escitalopram Oxalate [Lexapro -] 10 mg PO DAILY 10/29/18 Folic Acid/Vit B Complex and C [Dialyvite Tablet] 1 each PO DAILY 10/29/18 Insulin Lispro [Humalog Kwikpen U-100] 0 unit SQ ACHS 10/29/18 Midodrine HCl 10 mg PO MOWEFR 10/29/18 Sevelamer Carbonate [Renvela -] 1,600 mg PO TID 10/29/18 Tamsulosin HCl [Flomax] 0.4 mg PO HS 10/29/18 Zinc Oxide 20% Topical Oint 454 gm NR BID 10/29/18 Ceftaroline Fosamil Acetate [Teflaro (Restricted To Id)] 200 mg IVPB BID vial 11/17/18 Insulin Sliding Scale [Novolog Vial Sliding Scale -] 1 vial SQ TIDAC #1 vial Apixaban [Eliquis -] 5 mg PO BID #30 tablet MDD 2 11/19/18 Vancomycin 1 Gram (Pre-Docked) [Vancomycin (Pre-Docked)] 1,000 mg IVPB Q2D #14 bag 11/19/18 Vital Signs: Vital Signs Temperature 97.9 F 11/22/18 10:00 Pulse Rate 74 11/22/18 12:00 Respiratory Rate 18 11/22/18 12:40 Blood Pressure 134/75 11/22/18 12:00 O2 Sat by Pulse Oximetry (%) 100 11/22/18 08:11 - Other Data Labs, Other Data: CBC, BMP 11/22/18 09:54 11/22/18 09:54 INR, PTT INR 1.32 (0.83-1.09) H 11/21/18 21:03 Troponin, BNP 11/21/18 11/22/18 21:03 09:54 Troponin I < 0.02 0.41 H Troponin, BNP 11/21/18 11/22/18 21:03 09:54 Troponin I < 0.02 0.41 H Imaging - Results Chest X-ray: Report Reviewed EKG: Report Reviewed (nsr lvh repol) Assessment/Plan He is a 73 year old male with pmhx of ESRD, DM, HTN, HLD, cva, COPD, and UTI who was sent in to ER after pulling out his permacath. Pt was found found to be hypotensive in the ER. He was also lethargic. Pt was intubated and started on pressors. He had a trialysis catheter placed. He was briefly on pressors. He does sometimes need midodrine on HD. troponin is elevated. echo 11/06/18 normal EF. 1. elevated troponin -likely nonischemic pattern due to ESRD, low bp. Recent bacteremia not a ALEJO candidate. -not a candidate for ischemia workup. -conservative cardiac care. 2. hypotension -he is peripherally remodeled due to ESRD and hypertensive heart disease. He has needed midodrine in the past to tolerate HD. No plans for further cardiac workup/testing. will see prn.
--- NOTE | 2018-11-22 16:54 | EKG ---
Test Reason : Blood Pressure : / mmHG Vent. Rate : 101 BPM Atrial Rate : 101 BPM P-R Int : 156 ms QRS Dur : 086 ms QT Int : 384 ms P-R-T Axes : 077 057 086 degrees QTc Int : 497 ms SINUS TACHYCARDIA LEFT VENTRICULAR HYPERTROPHY WITH REPOLARIZATION ABNORMALITY ABNORMAL ECG WHEN COMPARED WITH ECG OF 29-OCT-2018 06:38, PREMATURE ATRIAL COMPLEXES ARE NO LONGER PRESENT NONSPECIFIC T WAVE ABNORMALITY HAS REPLACED INVERTED T WAVES IN LATERAL LEADS Confirmed by SONAL VARELA MD ([id number]) on 11/22/2018 4:54:29 PM Referred By: Confirmed By:SONAL VARELA MD
[2018-11-22] MEDS ORDERED: PT OWN MED DRAWER 7, Y5N ONE (17:29)
[2018-11-22] MEDS: COLLAGENASE CLOSTRIDIUM HIST. 30 GRAMS TUBE TP SCH (17:38)
[2018-11-22] MEDS: ZINC OXIDE 20% TOPICAL OINTMENT 454 GM JAR TP SCH ×2 (17:38→22:05)
[2018-11-22] MEDS: CHLORHEXIDINE GLUCONATE 4% CLEANSER FOR DECOLONIZATION TP SCH (21:33)
[2018-11-22] MEDS ORDERED: DEXTROSE 50%-WATER - 25 GM/50 ML VIAL IVPUSH ONE ×2 (22:00→23:20)
[2018-11-22] MEDS: TAMSULOSIN HCL 0.4 MG CAP PO SCH (22:04)
[2018-11-22] MEDS: ATORVASTATIN CA 20 MG TABLET (FP) PO SCH (22:04)
[2018-11-22] MEDS ORDERED: DEXTROSE 50%-WATER - 25 GM/50 ML VIAL ONE (23:15)
[2018-11-23] MEDS ORDERED: PIPERACILLIN/TAZOBACTAM 2.25 GM VIAL IVPB ONE ×3 (01:18→15:08)
[2018-11-23] MEDS: PIPERACILLIN/TAZOB 2.25 GM 2.25 GM in DEXTROSE 5%-WATER - 50 ML IVPB SCH ×3 (01:19→17:45)
[2018-11-23] MEDS ORDERED: DEXTROSE 5%-WATER - 50 ML IVPB ONE ×3 (01:19→15:08)
[2018-11-23] MEDS ORDERED: fentaNYL CITRATE 250 MCG/5 ML VIAL ONE ×2 (02:07→08:57)
[2018-11-23] MEDS: HEPARIN NA (PORCINE) 5,000 UNITS/ML 1ML VIAL SQ SCH ×3 (05:16→21:28)
[2018-11-23] MEDS: INSULIN SLIDING SCALE (NOVOLOG) 1 VIAL SQ SCH ×4 (06:58→21:19)
[2018-11-23] MEDS ORDERED: PT OWN MED DRAWER 7, Y5N ONE (07:15)
[2018-11-23 08:49] LABS: HEMATOCRIT 23.1 % (35.4-49); HEMOGLOBIN 7.6 GM/dL (11.7-16.9); MCH 31.1 pg (25.7-33.7); MCHC 32.8 g/dl (32.0-35.9); MEAN CELL VOLUME 94.9 fl (80-96); MEAN PLT VOLUME 8.6 fl (7.5-11.1); PLATELET COUNT 309 K/MM3 (134-434); RBC 2.43 M/mm3 (4.00-5.60); RDW 15.9 % (11.9-15.9); WHITE BLOOD COUNT 6.4 K/mm3 (4.0-10.0)
[2018-11-23] MEDS: SEVELAMER CARBONATE 800 MG TAB (FP) PO SCH ×3 (08:53→17:40)
--- NOTE | 2018-11-23 08:57 | PN ---
Physical Exam: SUBJECTIVE: Patient seen and examined Patient was seen and examined by me this morning. Patient had successful SBT and was successfully extubated. Was able to maintain saturations above 94% on NC. OBJECTIVE: Vital Signs Period Temp Pulse Resp BP Sys/Zamorano Pulse Ox Last 24 Hr 97.9 F-98.4 F 63-91 15-20 87-164/48-88 100-100 GENERAL: The patient is awake, alert, and oriented to self only, in no acute distress. HEAD: Normal with no signs of trauma. EYES: PERRL, extraocular movements intact, sclera anicteric, conjunctiva clear. No ptosis. ENT: Ears normal, nares patent, oropharynx clear without exudates, moist mucous membranes. NECK: Trachea midline, full range of motion, supple. LUNGS: Breath sounds equal, clear to auscultation bilaterally, no wheezes, no crackles, no accessory muscle use. HEART: Regular rate and rhythm, S1, S2 without murmur, rub or gallop. ABDOMEN: Soft, nontender, nondistended, normoactive bowel sounds, no guarding, no rebound, no hepatosplenomegaly, no masses. EXTREMITIES: slightly edematous right foot with mascerations of the skin improving from initial examination. NEUROLOGICAL: Cranial nerves II through XII grossly intact. Normal speech, gait not observed. PSYCH: Normal mood, normal affect. SKIN: Warm, dry, normal turgor, no rashes or lesions noted Laboratory Results - last 24 hr 11/22/18 11/22/18 11/22/18 00:40 09:54 09:54 WBC 6.6 RBC 2.94 L Hgb 8.9 L Hct 28.1 L MCV 95.5 MCH 30.3 MCHC 31.7 L RDW 16.2 H Plt Count 305 D MPV 8.0 Absolute Neuts (auto) 4.0 Neutrophils % 61.6 Lymphocytes % 26.5 D Monocytes % 7.8 Eosinophils % 3.0 Basophils % 1.1 Nucleated RBC % 0 Sodium 139 Potassium 3.8 Chloride 103 Carbon Dioxide 27 Anion Gap 9 BUN 14 Creatinine 3.4 H Creat Clearance w eGFR 17.79 POC Glucometer Random Glucose 92 Lactic Acid Calcium 7.7 L Total Bilirubin 0.4 AST 50 H ALT 15 Alkaline Phosphatase 104 Creatine Kinase 1260 H Creatine Kinase Index 1.4 CK-MB (CK-2) 18.4 H Troponin I 0.41 H Total Protein 7.6 Albumin 2.0 L Random Vancomycin Blood Type A POSITIVE Antibody Screen Positive H Prewarmed Antibody Srcn Negative Antibody Identification No Result Required. Antigen Identification No Result Required. 11/22/18 11/22/18 11/22/18 09:54 11:33 14:54 WBC RBC Hgb Hct MCV MCH MCHC RDW Plt Count MPV Absolute Neuts (auto) Neutrophils % Lymphocytes % Monocytes % Eosinophils % Basophils % Nucleated RBC % Sodium Potassium Chloride Carbon Dioxide Anion Gap BUN Creatinine Creat Clearance w eGFR POC Glucometer 79 Random Glucose Lactic Acid 1.2 Calcium Total Bilirubin AST ALT Alkaline Phosphatase Creatine Kinase Creatine Kinase Index CK-MB (CK-2) Troponin I Total Protein Albumin Random Vancomycin 14.5 L Blood Type Antibody Screen Prewarmed Antibody Srcn Antibody Identification Antigen Identification 11/22/18 11/22/18 11/22/18 17:17 21:43 22:59 WBC RBC Hgb Hct MCV MCH MCHC RDW Plt Count MPV Absolute Neuts (auto) Neutrophils % Lymphocytes % Monocytes % Eosinophils % Basophils % Nucleated RBC % Sodium Potassium Chloride Carbon Dioxide Anion Gap BUN Creatinine Creat Clearance w eGFR POC Glucometer 82 47 54 Random Glucose Lactic Acid Calcium Total Bilirubin AST ALT Alkaline Phosphatase Creatine Kinase Creatine Kinase Index CK-MB (CK-2) Troponin I Total Protein Albumin Random Vancomycin Blood Type Antibody Screen Prewarmed Antibody Srcn Antibody Identification Antigen Identification 11/23/18 11/23/18 00:33 06:08 WBC RBC Hgb Hct MCV MCH MCHC RDW Plt Count MPV Absolute Neuts (auto) Neutrophils % Lymphocytes % Monocytes % Eosinophils % Basophils % Nucleated RBC % Sodium Potassium Chloride Carbon Dioxide Anion Gap BUN Creatinine Creat Clearance w eGFR POC Glucometer 113 81 Random Glucose Lactic Acid Calcium Total Bilirubin AST ALT Alkaline Phosphatase Creatine Kinase Creatine Kinase Index CK-MB (CK-2) Troponin I Total Protein Albumin Random Vancomycin Blood Type Antibody Screen Prewarmed Antibody Srcn Antibody Identification Antigen Identification Active Medications Generic Name Dose Route Start Last Admin Trade Name Freq PRN Reason Stop Dose Admin Apixaban 5 mg 11/22/18 10:00 11/22/18 22:04 Eliquis - PO Not Given BID [facility] Atorvastatin Calcium 20 mg 11/22/18 22:00 11/22/18 22:04 Lipitor - PO Not Given HS [facility] Chlorhexidine Gluconate 1 applic 11/22/18 22:00 11/22/18 21:33 Hibiclens For Decolonization - TP 1 applic HS [facility] Administration Clopidogrel Bisulfate 75 mg 11/22/18 10:00 11/22/18 14:41 Plavix - PO Not Given DAILY [facility] Collagenase 1 applic 11/22/18 10:00 11/22/18 17:38 Santyl - TP 1 applic DAILY [facility] Administration Protocol Epoetin Jose 10,000 unit 11/23/18 15:02 Procrit - IVPUSH 11/23/18 15:03 ONCE ONE Escitalopram Oxalate 10 mg 11/22/18 10:00 11/22/18 14:38 Lexapro - PO Not Given DAILY [facility] Heparin Sodium (Porcine) 5,000 unit 11/22/18 06:00 11/23/18 05:16 Heparin - SQ 5,000 unit TID [facility] Administration Fentanyl 500 mcg/ Dextrose 100 mls @ 5 mls/hr 11/21/18 22:15 11/22/18 21:33 IVPB 100 mcg/hr TITR CHANTELL 20 mls/hr Administration 25 MCG/HR Piperacillin Sod/Tazobactam 50 mls @ 100 mls/hr 11/22/18 11:15 11/23/18 01:19 Sod 2.25 gm/ Dextrose IVPB 100 mls/hr Q8H-IV [facility] Administration Protocol Sodium Chloride 250 mls @ 3,000 mls/hr 11/22/18 15:02 Normal Saline - IV 11/23/18 15:02 PRN PRN Hypotension during Dialysis Insulin Aspart 1 vial 11/22/18 07:00 11/23/18 06:58 Novolog Vial Sliding Scale - SQ Not Given ACHS [facility] Protocol Midodrine 10 mg 11/23/18 08:00 Proamatine - PO [email or web address]@0800 [facility] Multi-Ingredient Ointment 1 gm 11/22/18 10:00 11/22/18 22:05 Zinc Oxide 20% Topical Oint TP 1 applic BID [facility] Administration Mupirocin 1 applic 11/22/18 10:00 11/22/18 21:32 Bactroban Ointment (For Decolonization) - NS 11/27/18 09:59 1 applic BID [facility] Administration Pantoprazole Sodium 40 mg 11/22/18 10:00 11/22/18 09:28 Protonix Iv IVPUSH 40 mg DAILY [facility] Administration Sevelamer Carbonate 1,600 mg 11/22/18 08:00 11/22/18 17:26 Renvela - PO Not Given TIDCM [facility] Tamsulosin HCl 0.4 mg 11/22/18 22:00 11/22/18 22:04 Flomax - PO Not Given HS [facility] ASSESSMENT/PLAN: 73 yo M resident of [facility] with a significant PMHx of ESRD on dialysis (MWF) ,DM, HTN, HLD, prior CVA, and COPD who presents to the emergency department, via EMS after pulling out his dialysis catheter found to be unresponsive and hypotensive. Intubated in ER and admitted to ICU for further management. Neuro: Patient was unresponsive and subsequently intubated in the emergency department. CT head was negative for acute pathology. -Neuro checks to assess for mental status changes -off sedation -successfully extubated after successful spontaneous breathing trial. Pulmonology: extubated on NC BD treatment PRN Maintain SpO2 >90% CV: Patient was hypotensive likely secondary to HD vs possible sepsis (pulmonary infiltrate seen on cxr). Patient received 3 L IVF in the ED and initially started on levophed now off. Continue midodrine Continue eliquis for afib ([id number] is 5) Continue statin for HLD Echo 10/31/18 showed moderate MR/TR with normal LV/RV size and function. Pending cardiology consultation -Continue to air sampling and monitoring ID: Possible sepsis due to infiltrate seen Blood and urine cultures sent, no growth seen Patient started on vancomycin and zosyn. A random vancomycin ordered. Currently on zosyn ID consulted Endo: BGM q6hrs ISS q6hrs Renal: Last received dialysis 11/23/18 Nephrology consulted New HD access needed; trialysis placed in RIJ today (refer to procedure note). FEN: NPO currently, may advance diet tomorrow. monitor electrolytes and replete as necessary D5 at 20 mL/hr LTD: ET tube placed 11/21/18 IO placed 11/21/18. Removed 11/22/18 Trialysis placed 11/22/18 Dispo: Continue to monitor in the ICU Visit type - Emergency Visit Emergency Visit: Yes ED Registration Date: 11/21/18 Care time: The patient presented to the Emergency Department on the above date and was hospitalized for further evaluation of their emergent condition. - New Patient This patient is new to me today: No - Critical Care Critical Care patient: Yes Total Critical Care Time (in minutes): 36 Critical Care Statement: The care of this patient involved high complexity decision making to prevent further life threatening deterioration of the patient 's condition and/or to evaluate & treat vital organ system(s) failure or risk of failure. - Discharge Referral Referred to [facility] Med [facility].: No
[2018-11-23 08:59] LABS: BLOOD UREA NITROGEN 18 mg/dL (7-18); CREATININE 4.3 mg/dL (0.55-1.3); GLUCOSE,RANDOM 95 mg/dL (74-106); SODIUM 138 mmol/L (136-145)
[2018-11-23 09:00] LABS: ALBUMIN 1.8 g/dl (3.4-5.0); ANION GAP 10 MMOL/L (8-16); BILIRUBIN,TOTAL 0.3 mg/dL (0.2-1); CALCIUM 7.8 mg/dL (8.5-10.1); CHLORIDE 102 mmol/L (98-107); CO2 26 mmol/L (21-32); POTASSIUM 3.9 mmol/L (3.5-5.1); SGOT/AST 44 U/L (15-37); SGPT/ALT 16 U/L (13-61)
[2018-11-23 09:01] LABS: ALK PHOS 92 U/L (45-117)
[2018-11-23] MEDS: MUPIROCIN 2% TOPICAL OINTMENT FOR DECOLONIZATION NS SCH ×2 (09:09→22:41)
[2018-11-23] MEDS: PANTOPRAZOLE SODIUM 40 MG VIAL IVPUSH SCH (09:10)
[2018-11-23] MEDS: COLLAGENASE CLOSTRIDIUM HIST. 30 GRAMS TUBE TP SCH (09:11)
[2018-11-23] MEDS: ZINC OXIDE 20% TOPICAL OINTMENT 454 GM JAR TP SCH ×2 (09:11→21:29)
--- NOTE | 2018-11-23 10:54 | ECHO ---
Name: SAMANTHA HILL Exam:Adult Echocardiogram Study Date: 11/23/2018 08:45 AM Age: 73 yrs Reason For Study: evaluate heart failure Height: 70 in Weight: 182 lb BSA: 2.0 m2 MMode/2D Measurements & Calculations IVSd: 1.1 cm Ao root diam: 3.1 cm LVIDd: 3.2 cm LA dimension: 2.3 cm LVIDs: 2.4 cm LVPWd: 1.00 cm LVPWs: 1.1 cm EDV(Teich): 41.0 ml ESV(Teich): 19.4 ml LVOT diam: 2.1 cm RV S Gerson: 15.6 cm/sec Doppler Measurements & Calculations MV E max gerson: 53.3 cm/sec Ao V2 max: 138.7 cm/sec MV A max gerson: 75.0 cm/sec Ao max P.7 mmHg MV E/A: 0.71 Ao V2 mean: 88.2 cm/sec MV dec time: 0.13 sec Ao mean P.8 mmHg Ao V2 VTI: 26.1 cm YASEMIN(I,D): 3.0 cm2 YASEMIN(V,D): 2.8 cm2 LV V1 max P.3 mmHg SV(LVOT): 79.3 ml LV V1 mean P.0 mmHg LV V1 max: 115.5 cm/sec LV V1 mean: 80.0 cm/sec LV V1 VTI: 23.9 cm TR max gerson: 309.6 cm/sec PA V2 max: 93.0 cm/sec TR max P.3 mmHg PA max P.5 mmHg RVSP(TR): 48.3 mmHg Med Peak E' Gerson: 5.8 cm/sec RAP systole: 10.0 mmHg Med E/e': 9.1 Lat Peak E' Gerson: 6.3 cm/sec Lat E/e': 8.4 Procedure The study was technically difficult with many images being suboptimal in quality. Left Ventricle Left ventricular systolic function is grossly normal. Ejection Fraction = 50-55%. The transmitral spe ctral Doppler flow pattern is suggestive of impaired LV relaxation. Regional wall motion abnormalities kamini ot be excluded due to limited visualization. Right Ventricle The right ventricle is grossly normal size. The right ventricular systolic function is grossly normal . Atria Normal left and right atrial size and function. Mitral Valve There is no mitral valve stenosis. There is mild mitral regurgitation. Tricuspid Valve The tricuspid valve is not well visualized. There is mild tricuspid regurgitation. Right ventricular systolic pressure is elevated at 40-50mmHg. Aortic Valve The aortic valve opens well. No hemodynamically significant valvular aortic stenosis. Pulmonic Valve The pulmonic valve is not well visualized. Great Vessels The aortic root is normal size. Pericardium/Pleura There is no pericardial effusion. Interpretation Summary The study was technically difficult with many images being suboptimal in quality. Regional wall motion abnormalities cannot be excluded due to limited visualization. Left ventricular systolic function is grossly normal. Ejection Fraction = 50-55%. There is no mitral valve stenosis. There is mild mitral regurgitation. There is mild tricuspid regurgitation. Right ventricular systolic pressure is elevated at 40-50mmHg. No hemodynamically significant valvular aortic stenosis. The transmitral spectral Doppler flow pattern is suggestive of impaired LV relaxation. There is no pericardial effusion. MD Levin *Mahi 11/23/2018 10:53 AM
[2018-11-23] MEDS: APIXABAN 5 MG TABLET PO SCH ×2 (11:26→21:28)
[2018-11-23] MEDS: CLOPIDOGREL BISULFATE 75 MG TABLET (FP) PO SCH (11:26)
[2018-11-23] MEDS: ESCITALOPRAM OXALATE 10 MG TABLET (FP) PO SCH (11:26)
--- NOTE | 2018-11-23 12:17 | PN ---
Teaching Attending Note Name of Resident: Alessandro Bennett ATTENDING PHYSICIAN STATEMENT I saw and evaluated the patient. I reviewed the resident's note and discussed the case with the resident. I agree with the resident's findings and plan as documented. SUBJECTIVE: Patient seen and examined in the ICU. Remains intubated and sedated. Remains off pressors. CXR: none today Intake & Output 11/20/18 11/21/18 11/22/18 11/23/18 23:59 23:59 23:59 23:59 Intake Total 420 290 Output Total 600 50 40 Balance -600 370 250 Weight 182 lb 15.739 oz 176 lb 1 oz 178 lb 14.4 oz Last Vital Signs Temp Pulse Resp BP Pulse Ox 98.7 F 88 17 113/57 L 100 11/23/18 10:00 11/23/18 10:00 11/23/18 11:40 11/23/18 10:00 11/23/18 09:45 Active Medications Apixaban (Eliquis -) 5 mg PO BID [facility] Last Admin: 11/23/18 11:26 Dose: Not Given Atorvastatin Calcium (Lipitor -) 20 mg PO HS [facility] Last Admin: 11/22/18 22:04 Dose: Not Given Chlorhexidine Gluconate (Hibiclens For Decolonization -) 1 applic TP HS [facility] Last Admin: 11/22/18 21:33 Dose: 1 applic Clopidogrel Bisulfate (Plavix -) 75 mg PO DAILY [facility] Last Admin: 11/23/18 11:26 Dose: Not Given Collagenase (Santyl -) 1 applic TP DAILY [facility]; Protocol Last Admin: 11/23/18 09:11 Dose: 1 applic Epoetin Jose (Procrit -) 10,000 unit IVPUSH ONCE ONE Stop: 11/23/18 15:03 Escitalopram Oxalate (Lexapro -) 10 mg PO DAILY [facility] Last Admin: 11/23/18 11:26 Dose: Not Given Heparin Sodium (Porcine) (Heparin -) 5,000 unit SQ TID [facility] Last Admin: 11/23/18 05:16 Dose: 5,000 unit Fentanyl 500 mcg/ Dextrose 100 mls @ 5 mls/hr IVPB TITR [facility] Last Admin: 11/22/18 21:33 Dose: 100 mcg/hr, 20 mls/hr Piperacillin Sod/Tazobactam (Sod 2.25 gm/ Dextrose) 50 mls @ 100 mls/hr IVPB Q8H-IV [facility]; Protocol Last Admin: 11/23/18 09:11 Dose: 100 mls/hr Sodium Chloride (Normal Saline -) 250 mls @ 3,000 mls/hr IV PRN PRN PRN Reason: Hypotension during Dialysis Stop: 11/23/18 15:02 Insulin Aspart (Novolog Vial Sliding Scale -) 1 vial SQ ACHS [facility]; Protocol Last Admin: 11/23/18 11:27 Dose: Not Given Midodrine (Proamatine -) 10 mg PO MoWeFr@0800 [facility] Multi-Ingredient Ointment (Zinc Oxide 20% Topical Oint) 1 gm TP BID [facility] Last Admin: 11/23/18 09:11 Dose: 1 applic Mupirocin (Bactroban Ointment (For Decolonization) -) 1 applic NS BID [facility] Stop: 11/27/18 09:59 Last Admin: 11/23/18 09:09 Dose: 1 applic Pantoprazole Sodium (Protonix Iv) 40 mg IVPUSH DAILY [facility] Last Admin: 11/23/18 09:10 Dose: 40 mg Sevelamer Carbonate (Renvela -) 1,600 mg PO TIDCM [facility] Last Admin: 11/23/18 12:02 Dose: Not Given Tamsulosin HCl (Flomax -) 0.4 mg PO HS [facility] Last Admin: 11/22/18 22:04 Dose: Not Given Constitutional: Yes: Intubated and sedated Eyes: Yes: Conjunctiva Clear HENT: Yes: Atraumatic, Normocephalic Neck: Yes: Supple, Trachea Midline Cardiovascular: Yes: Regular Rate and Rhythm, S1, S2. No: JVD, Gallop, Murmur Respiratory: Yes: Diminished, Intubated, Mechanically Ventilated Gastrointestinal: Yes: Normal Bowel Sounds, Soft. No: Distention Extremities: Yes: Other (Right ankle/foot wrapped in Kerlix dressing with deformed digits; extensive hemostatic wound along the lateral aspect) Edema: No Peripheral Pulses WNL: Yes Neurological: Yes: Sedated, arousable. No: Facial Droop, Seizure Labs: Laboratory Results - last 24 hr 11/22/18 11/22/18 11/22/18 00:40 11:33 14:54 WBC RBC Hgb Hct MCV MCH MCHC RDW Plt Count MPV Sodium Potassium Chloride Carbon Dioxide Anion Gap BUN Creatinine Creat Clearance w eGFR POC Glucometer 79 Random Glucose Calcium Total Bilirubin AST ALT Alkaline Phosphatase Total Protein Albumin Random Vancomycin 14.5 L Blood Type A POSITIVE Antibody Screen Positive H Prewarmed Antibody Srcn Negative Antibody Identification COLD AGGLUTININ Antigen Identification No Result Required. Crossmatch See Detail 11/22/18 11/22/18 11/22/18 17:17 21:43 22:59 WBC RBC Hgb Hct MCV MCH MCHC RDW Plt Count MPV Sodium Potassium Chloride Carbon Dioxide Anion Gap BUN Creatinine Creat Clearance w eGFR POC Glucometer 82 47 54 Random Glucose Calcium Total Bilirubin AST ALT Alkaline Phosphatase Total Protein Albumin Random Vancomycin Blood Type Antibody Screen Prewarmed Antibody Srcn Antibody Identification Antigen Identification Crossmatch 11/23/18 11/23/18 11/23/18 00:33 05:30 05:30 WBC 6.4 RBC 2.43 L Hgb 7.6 L Hct 23.1 L D MCV 94.9 MCH 31.1 MCHC 32.8 RDW 15.9 Plt Count 309 MPV 8.6 Sodium 138 Potassium 3.9 Chloride 102 Carbon Dioxide 26 Anion Gap 10 BUN 18 Creatinine 4.3 H Creat Clearance w eGFR 13.57 POC Glucometer 113 Random Glucose 95 Calcium 7.8 L Total Bilirubin 0.3 AST 44 H ALT 16 Alkaline Phosphatase 92 Total Protein 7.0 Albumin 1.8 L Random Vancomycin Blood Type Antibody Screen Prewarmed Antibody Srcn Antibody Identification Antigen Identification Crossmatch 11/23/18 11/23/18 06:08 11:35 WBC RBC Hgb Hct MCV MCH MCHC RDW Plt Count MPV Sodium Potassium Chloride Carbon Dioxide Anion Gap BUN Creatinine Creat Clearance w eGFR POC Glucometer 81 95 Random Glucose Calcium Total Bilirubin AST ALT Alkaline Phosphatase Total Protein Albumin Random Vancomycin Blood Type Antibody Screen Prewarmed Antibody Srcn Antibody Identification Antigen Identification Crossmatch Assessment/Plan Acute Respiratory Failure R/O PNA ESRD on HD DM HTN HLD Prior CVA COPD Resolved hypotension R/O Acute CVA Sedation vacation SBTs as tolerated ABX per ID Neuro checks once off sedation HD per Renal Strict I & O Midodrine VTE prophylaxis Requires ICU monitoring Dr Palmer Critical care time spent in reviewing chart, evaluating patient and formulating plan - 36 minutes.
[2018-11-23] MEDS ORDERED: SODIUM CHLORIDE 250 ML IV PRN (14:40)
[2018-11-23] MEDS ORDERED: EPOETIN ALFA 10,000 UNIT/1 ML VIAL IVPUSH ONE (14:45)
[2018-11-23] MEDS: MIDODRINE HCL 5 MG TABLET PO SCH (15:15)
[2018-11-23] MEDS ORDERED: VANCOMYCIN 1 GRAM (PRE-DOCKED) 1,000 MG/250 ML BAG IVPB ONE (15:15)
--- NOTE | 2018-11-23 15:31 | PN ---
Progress Note, Physician History of Present Illness: AWAKE ON VENTILATOR WEANING ATTEMPTS IN PROGRESS AFEBRILE WBC WNL BC(11/22) NO GROWTH VANCO T 14.5 - Current Medication List Current Medications: Active Medications Apixaban (Eliquis -) 5 mg PO BID [facility] Last Admin: 11/23/18 11:26 Dose: Not Given Atorvastatin Calcium (Lipitor -) 20 mg PO HS [facility] Last Admin: 11/22/18 22:04 Dose: Not Given Chlorhexidine Gluconate (Hibiclens For Decolonization -) 1 applic TP HS [facility] Last Admin: 11/22/18 21:33 Dose: 1 applic Clopidogrel Bisulfate (Plavix -) 75 mg PO DAILY [facility] Last Admin: 11/23/18 11:26 Dose: Not Given Collagenase (Santyl -) 1 applic TP DAILY [facility]; Protocol Last Admin: 11/23/18 09:11 Dose: 1 applic Escitalopram Oxalate (Lexapro -) 10 mg PO DAILY [facility] Last Admin: 11/23/18 11:26 Dose: Not Given Heparin Sodium (Porcine) (Heparin -) 5,000 unit SQ TID [facility] Last Admin: 11/23/18 15:17 Dose: 5,000 unit Fentanyl 500 mcg/ Dextrose 100 mls @ 5 mls/hr IVPB TITR [facility] Last Titration: 11/23/18 13:24 Dose: 50 mcg/hr, 10 mls/hr Piperacillin Sod/Tazobactam (Sod 2.25 gm/ Dextrose) 50 mls @ 100 mls/hr IVPB Q8H-IV [facility]; Protocol Last Admin: 11/23/18 09:11 Dose: 100 mls/hr Vancomycin HCl (Vancomycin (Pre-Docked)) 1,000 mg in 250 mls @ 166.667 mls/hr IVPB ONCE ONE; Protocol Stop: 11/23/18 16:44 Insulin Aspart (Novolog Vial Sliding Scale -) 1 vial SQ ACHS [facility]; Protocol Last Admin: 11/23/18 11:27 Dose: Not Given Midodrine (Proamatine -) 10 mg PO MoWeFr@0800 [facility] Last Admin: 11/23/18 15:15 Dose: Not Given Multi-Ingredient Ointment (Zinc Oxide 20% Topical Oint) 1 gm TP BID [facility] Last Admin: 11/23/18 09:11 Dose: 1 applic Mupirocin (Bactroban Ointment (For Decolonization) -) 1 applic NS BID [facility] Stop: 11/27/18 09:59 Last Admin: 11/23/18 09:09 Dose: 1 applic Pantoprazole Sodium (Protonix Iv) 40 mg IVPUSH DAILY [facility] Last Admin: 11/23/18 09:10 Dose: 40 mg Sevelamer Carbonate (Renvela -) 1,600 mg PO TIDCM [facility] Last Admin: 11/23/18 12:02 Dose: Not Given Tamsulosin HCl (Flomax -) 0.4 mg PO HS [facility] Last Admin: 11/22/18 22:04 Dose: Not Given - Objective Vital Signs: Vital Signs Temperature 98 F 11/23/18 13:40 Pulse Rate 76 11/23/18 14:45 Respiratory Rate 17 11/23/18 14:45 Blood Pressure 71/41 L 11/23/18 14:45 O2 Sat by Pulse Oximetry (%) 100 11/23/18 09:45 Constitutional: Yes: No Distress, Obese Cardiovascular: Yes: Regular Rate and Rhythm, S1, S2 Respiratory: Yes: Mechanically Ventilated Gastrointestinal: Yes: Normal Bowel Sounds, Soft. No: Tenderness Extremities: Yes: Other (+ CHRONIC FOOT ULCERS) Labs: CBC, BMP 11/23/18 05:30 11/23/18 05:30 INR, PTT INR 1.32 (0.83-1.09) H 11/21/18 21:03 Assessment/Plan S/P HYPOTENSION RESPIRATORY FAILURE R/O PNEUMONIA HX MRSA BACTEREMIA ESRD AWAIT C/S CONTINUE ZOSYN REDOSE VANCOMYCIN
--- NOTE | 2018-11-23 16:34 | PN ---
Progress Note, Physician History of Present Illness: Pt seen and examined at bedside. He was hypotensive during HD and did not tolerate the 3 hours. He was transfused a unit of PRBC. - Current Medication List Current Medications: Active Medications Apixaban (Eliquis -) 5 mg PO BID [facility] Last Admin: 11/23/18 11:26 Dose: Not Given Atorvastatin Calcium (Lipitor -) 20 mg PO HS [facility] Last Admin: 11/22/18 22:04 Dose: Not Given Chlorhexidine Gluconate (Hibiclens For Decolonization -) 1 applic TP HS [facility] Last Admin: 11/22/18 21:33 Dose: 1 applic Clopidogrel Bisulfate (Plavix -) 75 mg PO DAILY [facility] Last Admin: 11/23/18 11:26 Dose: Not Given Collagenase (Santyl -) 1 applic TP DAILY [facility]; Protocol Last Admin: 11/23/18 09:11 Dose: 1 applic Escitalopram Oxalate (Lexapro -) 10 mg PO DAILY [facility] Last Admin: 11/23/18 11:26 Dose: Not Given Heparin Sodium (Porcine) (Heparin -) 5,000 unit SQ TID [facility] Last Admin: 11/23/18 15:17 Dose: 5,000 unit Fentanyl 500 mcg/ Dextrose 100 mls @ 5 mls/hr IVPB TITR [facility] Last Titration: 11/23/18 13:24 Dose: 50 mcg/hr, 10 mls/hr Piperacillin Sod/Tazobactam (Sod 2.25 gm/ Dextrose) 50 mls @ 100 mls/hr IVPB Q8H-IV [facility]; Protocol Last Admin: 11/23/18 09:11 Dose: 100 mls/hr Vancomycin HCl (Vancomycin (Pre-Docked)) 1,000 mg in 250 mls @ 166.667 mls/hr IVPB ONCE ONE; Protocol Stop: 11/23/18 16:44 Insulin Aspart (Novolog Vial Sliding Scale -) 1 vial SQ ACHS [facility]; Protocol Last Admin: 11/23/18 11:27 Dose: Not Given Midodrine (Proamatine -) 10 mg PO MoWeFr@0800 [facility] Last Admin: 11/23/18 15:15 Dose: Not Given Multi-Ingredient Ointment (Zinc Oxide 20% Topical Oint) 1 gm TP BID [facility] Last Admin: 11/23/18 09:11 Dose: 1 applic Mupirocin (Bactroban Ointment (For Decolonization) -) 1 applic NS BID [facility] Stop: 11/27/18 09:59 Last Admin: 11/23/18 09:09 Dose: 1 applic Pantoprazole Sodium (Protonix Iv) 40 mg IVPUSH DAILY [facility] Last Admin: 11/23/18 09:10 Dose: 40 mg Sevelamer Carbonate (Renvela -) 1,600 mg PO TIDCM [facility] Last Admin: 11/23/18 12:02 Dose: Not Given Tamsulosin HCl (Flomax -) 0.4 mg PO HS [facility] Last Admin: 11/22/18 22:04 Dose: Not Given - Objective Vital Signs: Vital Signs Temperature 98 F 11/23/18 13:40 Pulse Rate 94 H 11/23/18 15:54 Respiratory Rate 20 11/23/18 16:08 Blood Pressure 137/45 L 11/23/18 15:54 O2 Sat by Pulse Oximetry (%) 100 11/23/18 09:45 Constitutional: Yes: Calm Eyes: Yes: Conjunctiva Clear Cardiovascular: Yes: S1, S2 Respiratory: Yes: Mechanically Ventilated Gastrointestinal: Yes: Soft Genitourinary: Yes: [place] Present Musculoskeletal: Yes: Muscle Weakness Edema: No Wound/Incision: Yes: Dressing Dry and Intact Neurological: Yes: Lethargy Labs: CBC, BMP 11/23/18 05:30 11/23/18 05:30 INR, PTT INR 1.32 (0.83-1.09) H 11/21/18 21:03 Problem List - Problems (1) ESRD (end stage renal disease) Code(s): N18.6 - END STAGE RENAL DISEASE (2) Anemia Code(s): D64.9 - ANEMIA, UNSPECIFIED Assessment/Plan Current Medications Generic Name Dose Route Start Last Admin Trade Name Freq PRN Reason Stop Dose Admin Apixaban 5 mg 11/22/18 10:00 11/23/18 11:26 Eliquis - PO Not Given BID [facility] Atorvastatin Calcium 20 mg 11/22/18 22:00 11/22/18 22:04 Lipitor - PO Not Given HS [facility] Chlorhexidine Gluconate 1 applic 11/22/18 22:00 11/22/18 21:33 Hibiclens For Decolonization - TP 1 applic HS [facility] Administration Clopidogrel Bisulfate 75 mg 11/22/18 10:00 11/23/18 11:26 Plavix - PO Not Given DAILY [facility] Collagenase 1 applic 11/22/18 10:00 11/23/18 09:11 Santyl - TP 1 applic DAILY [facility] Administration Protocol Escitalopram Oxalate 10 mg 11/22/18 10:00 11/23/18 11:26 Lexapro - PO Not Given DAILY [facility] Heparin Sodium (Porcine) 5,000 unit 11/22/18 06:00 11/23/18 15:17 Heparin - SQ 5,000 unit TID [facility] Administration Fentanyl 500 mcg/ Dextrose 100 mls @ 5 mls/hr 11/21/18 22:15 11/23/18 13:24 IVPB 50 mcg/hr TITR [facility] 10 mls/hr Titration 25 MCG/HR Piperacillin Sod/Tazobactam 50 mls @ 100 mls/hr 11/22/18 11:15 11/23/18 09:11 Sod 2.25 gm/ Dextrose IVPB 100 mls/hr Q8H-IV [facility] Administration Protocol Vancomycin HCl 1,000 mg in 250 mls @ 166.667 mls/hr 11/23/18 15:15 Vancomycin (Pre-Docked) IVPB 11/23/18 16:44 ONCE ONE Protocol Insulin Aspart 1 vial 11/22/18 07:00 11/23/18 11:27 Novolog Vial Sliding Scale - SQ Not Given ACHS [facility] Protocol Midodrine 10 mg 11/23/18 08:00 11/23/18 15:15 Proamatine - PO Not Given MoWeFr@0800 [facility] Multi-Ingredient Ointment 1 gm 11/22/18 10:00 11/23/18 09:11 Zinc Oxide 20% Topical Oint TP 1 applic BID [facility] Administration Mupirocin 1 applic 11/22/18 10:00 11/23/18 09:09 Bactroban Ointment (For Decolonization) - NS 11/27/18 09:59 1 applic BID [facility] Administration Pantoprazole Sodium 40 mg 11/22/18 10:00 11/23/18 09:10 Protonix Iv IVPUSH 40 mg DAILY [facility] Administration Sevelamer Carbonate 1,600 mg 11/22/18 08:00 11/23/18 12:02 Renvela - PO Not Given TIDCM [facility] Tamsulosin HCl 0.4 mg 11/22/18 22:00 11/22/18 22:04 Flomax - PO Not Given HS [facility] Microbiology 11/22/18 00:40 Blood - Peripheral Venous Blood Culture - Preliminary NO GROWTH OBTAINED AFTER 24 HOURS, INCUBATION TO CONTINUE FOR 4 DAYS. 11/22/18 00:40 Blood - Peripheral Venous Blood Culture - Preliminary NO GROWTH OBTAINED AFTER 24 HOURS, INCUBATION TO CONTINUE FOR 4 DAYS. Impression 1. ESRD 2. acute rep failure 3. DM 4. hyperlipidemia 5. HTN 6. gout 7. proteinuria 8. hypotension/shock 9. sepsis Plan - HD today - pt did not tolerate 3 hours - cultures negative so far - did give one unit of prbc - vent support - discussed with ICU - monitor bp, pressors to map 65 - renal diet - will follow
[2018-11-23] MEDS ORDERED: DEXTROSE 50%-WATER - 25 GM/50 ML VIAL IVPUSH PRN (18:34)
--- NOTE | 2018-11-23 18:35 | PN ---
Progress Note, Physician Chief Complaint: Acute respiratory failure ESRD Anemia History of Present Illness: NAD - Current Medication List Current Medications: Active Medications Apixaban (Eliquis -) 5 mg PO BID [facility] Last Admin: 11/23/18 11:26 Dose: Not Given Atorvastatin Calcium (Lipitor -) 20 mg PO HS [facility] Last Admin: 11/22/18 22:04 Dose: Not Given Chlorhexidine Gluconate (Hibiclens For Decolonization -) 1 applic TP HS [facility] Last Admin: 11/22/18 21:33 Dose: 1 applic Clopidogrel Bisulfate (Plavix -) 75 mg PO DAILY [facility] Last Admin: 11/23/18 11:26 Dose: Not Given Collagenase (Santyl -) 1 applic TP DAILY [facility]; Protocol Last Admin: 11/23/18 09:11 Dose: 1 applic Escitalopram Oxalate (Lexapro -) 10 mg PO DAILY [facility] Last Admin: 11/23/18 11:26 Dose: Not Given Heparin Sodium (Porcine) (Heparin -) 5,000 unit SQ TID [facility] Last Admin: 11/23/18 15:17 Dose: 5,000 unit Fentanyl 500 mcg/ Dextrose 100 mls @ 5 mls/hr IVPB TITR [facility] Last Titration: 11/23/18 13:24 Dose: 50 mcg/hr, 10 mls/hr Piperacillin Sod/Tazobactam (Sod 2.25 gm/ Dextrose) 50 mls @ 100 mls/hr IVPB Q8H-IV [facility]; Protocol Last Admin: 11/23/18 17:45 Dose: 100 mls/hr Insulin Aspart (Novolog Vial Sliding Scale -) 1 vial SQ ACHS [facility]; Protocol Last Admin: 11/23/18 17:41 Dose: Not Given Midodrine (Proamatine -) 10 mg PO MoWeFr@0800 [facility] Last Admin: 11/23/18 15:15 Dose: Not Given Multi-Ingredient Ointment (Zinc Oxide 20% Topical Oint) 1 gm TP BID [facility] Last Admin: 11/23/18 09:11 Dose: 1 applic Mupirocin (Bactroban Ointment (For Decolonization) -) 1 applic NS BID [facility] Stop: 11/27/18 09:59 Last Admin: 11/23/18 09:09 Dose: 1 applic Pantoprazole Sodium (Protonix Iv) 40 mg IVPUSH DAILY [facility] Last Admin: 11/23/18 09:10 Dose: 40 mg Sevelamer Carbonate (Renvela -) 1,600 mg PO TIDCM [facility] Last Admin: 11/23/18 17:40 Dose: Not Given Tamsulosin HCl (Flomax -) 0.4 mg PO HS [facility] Last Admin: 11/22/18 22:04 Dose: Not Given - Objective Vital Signs: Vital Signs Temperature 98 F 11/23/18 13:40 Pulse Rate 99 H 11/23/18 18:00 Respiratory Rate 22 H 11/23/18 18:00 Blood Pressure 111/87 11/23/18 18:00 O2 Sat by Pulse Oximetry (%) 100 11/23/18 09:45 Constitutional: Yes: Well Nourished, No Distress, Calm Cardiovascular: Yes: Regular Rate and Rhythm Respiratory: Yes: Regular Gastrointestinal: Yes: Normal Bowel Sounds, Soft Musculoskeletal: Yes: Muscle Weakness Extremities: Yes: Other (generalized atrophy) Peripheral Pulses WNL: Yes Wound/Incision: Yes: Dressing Dry and Intact Neurological: Yes: Pre-Existing Deficit Labs: CBC, BMP 11/23/18 05:30 11/23/18 05:30 INR, PTT INR 1.32 (0.83-1.09) H 11/21/18 21:03 Problem List - Problems (1) Acute hypoxemic respiratory failure Assessment/Plan: -resolved s/p extubation -IV abx Code(s): J96.01 - ACUTE RESPIRATORY FAILURE WITH HYPOXIA (2) ESRD (end stage renal disease) Assessment/Plan: H per renal today midodrine on HD days epogen with HD Code(s): N18.6 - END STAGE RENAL DISEASE (3) Elevated troponin Assessment/Plan: -Cardiology on board -Echo done and reviewed, normal LVEF -not true value in light of ESRD Code(s): R74.8 - ABNORMAL LEVELS OF OTHER SERUM ENZYMES (4) Pressure ulcer Assessment/Plan: -Wound care consult -collagenase Code(s): L89.90 - PRESSURE ULCER OF UNSPECIFIED SITE, UNSPECIFIED STAGE (5) A-fib Assessment/Plan: -chronic, rate controlled -on eliquis Code(s): I48.91 - UNSPECIFIED ATRIAL FIBRILLATION (6) Anemia Code(s): D64.9 - ANEMIA, UNSPECIFIED (7) Sepsis Assessment/Plan: -ID on board -IV abx -Afebrile -no leukocytosis Code(s): A41.9 - SEPSIS, UNSPECIFIED ORGANISM Qualifiers: Sepsis type: sepsis due to unspecified organism Qualified Code(s): A41.9 - Sepsis, unspecified organism Assessment/Plan see problem list
[2018-11-23] MEDS: CHLORHEXIDINE GLUCONATE 4% CLEANSER FOR DECOLONIZATION TP SCH (21:21)
[2018-11-23] MEDS: ATORVASTATIN CA 20 MG TABLET (FP) PO SCH (21:28)
[2018-11-23] MEDS: TAMSULOSIN HCL 0.4 MG CAP PO SCH (21:28)
[2018-11-23] MEDS ORDERED: ACETAMINOPHEN 1000 MG/100 ML VIAL (NON FORMULARY) IVPB ONE (22:41)
[2018-11-24] MEDS ORDERED: DEXTROSE 5%-WATER - 50 ML IVPB ONE ×3 (01:13→18:31)
[2018-11-24] MEDS ORDERED: PIPERACILLIN/TAZOBACTAM 2.25 GM VIAL IVPB ONE ×3 (01:13→18:30)
[2018-11-24] MEDS: PIPERACILLIN/TAZOB 2.25 GM 2.25 GM in DEXTROSE 5%-WATER - 50 ML IVPB SCH ×3 (01:13→18:31)
[2018-11-24] MEDS: HEPARIN NA (PORCINE) 5,000 UNITS/ML 1ML VIAL SQ SCH ×3 (06:09→21:14)
[2018-11-24] MEDS: INSULIN SLIDING SCALE (NOVOLOG) 1 VIAL SQ SCH ×4 (06:19→21:34)
[2018-11-24 07:14] LABS: HEMOGLOBIN 8.3 GM/dL (11.7-16.9); MCH 30.8 pg (25.7-33.7); MCHC 33.1 g/dl (32.0-35.9); MEAN CELL VOLUME 92.8 fl (80-96); MEAN PLT VOLUME 8.4 fl (7.5-11.1); PLATELET COUNT 276 K/MM3 (134-434); RDW 16.5 % (11.9-15.9); WHITE BLOOD COUNT 7.9 K/mm3 (4.0-10.0)
[2018-11-24 07:40] LABS: ALBUMIN 1.6 g/dl (3.4-5.0); ALK PHOS 90 U/L (45-117); ANION GAP 8 MMOL/L (8-16); BILIRUBIN,TOTAL 0.4 mg/dL (0.2-1); BLOOD UREA NITROGEN 10 mg/dL (7-18); CALCIUM 7.6 mg/dL (8.5-10.1); CHLORIDE 104 mmol/L (98-107); CO2 30 mmol/L (21-32); CREATININE 3.4 mg/dL (0.55-1.3); GLUCOSE,RANDOM 71 mg/dL (74-106); POTASSIUM 3.6 mmol/L (3.5-5.1); SGOT/AST 29 U/L (15-37); SGPT/ALT 15 U/L (13-61); SODIUM 141 mmol/L (136-145); TOT PROT 6.5 g/dl (6.4-8.2)
--- NOTE | 2018-11-24 09:50 | PN ---
Progress Note (short form) - Note Progress Note: extubated yesterday Vital Signs Period Temp Pulse Resp BP Sys/Zamorano Pulse Ox Last 24 Hr 98 F-98.9 F 68-105 15-26 71-177/41-124 100 cor-rrr lungs decreased bs at bases abd soft,nt ext dressing right foot CBC, BMP 11/24/18 05:30 11/24/18 05:30 Microbiology 11/22/18 00:40 Blood - Peripheral Venous Blood Culture - Preliminary NO GROWTH OBTAINED AFTER 48 HOURS, INCUBATION TO CONTINUE FOR 3 DAYS. 11/22/18 00:40 Blood - Peripheral Venous Blood Culture - Preliminary NO GROWTH OBTAINED AFTER 48 HOURS, INCUBATION TO CONTINUE FOR 3 DAYS. cxray- rul atelectasis Active Medications Apixaban (Eliquis -) 5 mg PO BID [facility] Last Admin: 11/23/18 21:28 Dose: Not Given Atorvastatin Calcium (Lipitor -) 20 mg PO HS [facility] Last Admin: 11/23/18 21:28 Dose: Not Given Chlorhexidine Gluconate (Hibiclens For Decolonization -) 1 applic TP [facility] Last Admin: 11/23/18 21:21 Dose: 1 applic Clopidogrel Bisulfate (Plavix -) 75 mg PO DAILY [facility] Last Admin: 11/23/18 11:26 Dose: Not Given Collagenase (Santyl -) 1 applic TP DAILY [facility]; Protocol Last Admin: 11/23/18 09:11 Dose: 1 applic Dextrose (D50w (Vial) -) 25 gm IVPUSH PRN PRN PRN Reason: HYPOGLYCEMIA Escitalopram Oxalate (Lexapro -) 10 mg PO DAILY [facility] Last Admin: 11/23/18 11:26 Dose: Not Given Heparin Sodium (Porcine) (Heparin -) 5,000 unit SQ TID [facility] Last Admin: 11/24/18 06:09 Dose: 5,000 unit Piperacillin Sod/Tazobactam (Sod 2.25 gm/ Dextrose) 50 mls @ 100 mls/hr IVPB Q8H-IV [facility]; Protocol Last Admin: 11/24/18 01:13 Dose: 100 mls/hr Insulin Aspart (Novolog Vial Sliding Scale -) 1 vial SQ ACHS [facility]; Protocol Last Admin: 11/24/18 06:19 Dose: Not Given Midodrine (Proamatine -) 10 mg PO MoWeFr@0800 [facility] Last Admin: 11/23/18 15:15 Dose: Not Given Multi-Ingredient Ointment (Zinc Oxide 20% Topical Oint) 1 gm TP BID [facility] Last Admin: 11/23/18 21:29 Dose: 1 applic Mupirocin (Bactroban Ointment (For Decolonization) -) 1 applic NS BID [facility] Stop: 11/27/18 09:59 Last Admin: 11/23/18 22:41 Dose: 1 applic Pantoprazole Sodium (Protonix Iv) 40 mg IVPUSH DAILY [facility] Last Admin: 11/23/18 09:10 Dose: 40 mg Sevelamer Carbonate (Renvela -) 1,600 mg PO TIDCM [facility] Last Admin: 11/23/18 17:40 Dose: Not Given Tamsulosin HCl (Flomax -) 0.4 mg PO HS [facility] Last Admin: 11/23/18 21:28 Dose: Not Given Laboratory Tests 11/24/18 05:30 Random Vancomycin 22.9 a/p respiratory failure extubated pneumonia-on zosyn MRSA bacteremia- continue vancomycin with HD repeat level in am RLE wound esrd/hd
[2018-11-24] MEDS ORDERED: methylPREDNISolone NA SUCC 40 MG/1 ML VIAL IVPUSH ONE ×2 (10:16→18:00)
[2018-11-24] MEDS ORDERED: ALBUTEROL SO4 0.083% IH SOL 2.5 MG/3 ML VIAL.NEB. NEB PRN (10:16)
--- NOTE | 2018-11-24 10:20 | PN ---
Teaching Attending Note Name of Resident: Roselia Hampton ATTENDING PHYSICIAN STATEMENT I saw and evaluated the patient. I reviewed the resident's note and discussed the case with the resident. I agree with the resident's findings and plan as documented. SUBJECTIVE: UBJECTIVE: Patient seen and examined in the ICU. Remains extubated. Awake but confused. Intermittently follows some simple commands. Remains off pressors. CXR: RUL atelectasis that is new. Intake & Output 11/21/18 11/22/18 11/23/18 11/24/18 23:59 23:59 23:59 23:59 Intake Total 420 1128 Output Total 600 50 165 50 Balance -600 370 963 -50 Weight 182 lb 15.739 oz 176 lb 1 oz 178 lb 178 lb 3.2 oz Last Vital Signs Temp Pulse Resp BP Pulse Ox 98.8 F 86 18 135/71 100 11/24/18 06:00 11/24/18 08:00 11/24/18 08:00 11/24/18 08:00 11/23/18 21:00 Active Medications Apixaban (Eliquis -) 5 mg PO BID [facility] Last Admin: 11/23/18 21:28 Dose: Not Given Atorvastatin Calcium (Lipitor -) 20 mg PO HS [facility] Last Admin: 11/23/18 21:28 Dose: Not Given Chlorhexidine Gluconate (Hibiclens For Decolonization -) 1 applic TP HS [facility] Last Admin: 11/23/18 21:21 Dose: 1 applic Clopidogrel Bisulfate (Plavix -) 75 mg PO DAILY [facility] Last Admin: 11/23/18 11:26 Dose: Not Given Collagenase (Santyl -) 1 applic TP DAILY [facility]; Protocol Last Admin: 11/23/18 09:11 Dose: 1 applic Dextrose (D50w (Vial) -) 25 gm IVPUSH PRN PRN PRN Reason: HYPOGLYCEMIA Escitalopram Oxalate (Lexapro -) 10 mg PO DAILY [facility] Last Admin: 11/23/18 11:26 Dose: Not Given Heparin Sodium (Porcine) (Heparin -) 5,000 unit SQ TID [facility] Last Admin: 11/24/18 06:09 Dose: 5,000 unit Piperacillin Sod/Tazobactam (Sod 2.25 gm/ Dextrose) 50 mls @ 100 mls/hr IVPB Q8H-IV [facility]; Protocol Last Admin: 11/24/18 01:13 Dose: 100 mls/hr Insulin Aspart (Novolog Vial Sliding Scale -) 1 vial SQ ACHS [facility]; Protocol Last Admin: 11/24/18 06:19 Dose: Not Given Midodrine (Proamatine -) 10 mg PO MoWeFr@0800 [facility] Last Admin: 11/23/18 15:15 Dose: Not Given Multi-Ingredient Ointment (Zinc Oxide 20% Topical Oint) 1 gm TP BID [facility] Last Admin: 11/23/18 21:29 Dose: 1 applic Mupirocin (Bactroban Ointment (For Decolonization) -) 1 applic NS BID [facility] Stop: 11/27/18 09:59 Last Admin: 11/23/18 22:41 Dose: 1 applic Pantoprazole Sodium (Protonix Iv) 40 mg IVPUSH DAILY [facility] Last Admin: 11/23/18 09:10 Dose: 40 mg Sevelamer Carbonate (Renvela -) 1,600 mg PO TIDCM [facility] Last Admin: 11/23/18 17:40 Dose: Not Given Tamsulosin HCl (Flomax -) 0.4 mg PO HS [facility] Last Admin: 11/23/18 21:28 Dose: Not Given Constitutional: Yes: Intubated, awake but confused, follows some simple commands Eyes: Yes: Conjunctiva Clear HENT: Yes: Atraumatic, Normocephalic Neck: Yes: Supple, Trachea Midline Cardiovascular: Yes: Regular Rate and Rhythm, S1, S2. No: JVD, Gallop, Murmur Respiratory: Yes: Extubated, scattered rhonchi Gastrointestinal: Yes: Normal Bowel Sounds, Soft. No: Distention Extremities: Yes: Other (Right ankle/foot wrapped in Kerlix dressing with deformed digits; extensive hemostatic wound along the lateral aspect) Edema: No Peripheral Pulses WNL: Yes Neurological: Yes: Awake. No: Facial Droop, Seizure Labs: Laboratory Results - last 24 hr 11/22/18 11/23/18 11/23/18 00:40 11:35 18:03 WBC RBC Hgb Hct MCV MCH MCHC RDW Plt Count MPV Sodium Potassium Chloride Carbon Dioxide Anion Gap BUN Creatinine Creat Clearance w eGFR POC Glucometer 95 88 Random Glucose Calcium Total Bilirubin AST ALT Alkaline Phosphatase Total Protein Albumin Random Vancomycin Blood Type A POSITIVE Antibody Screen Positive H Prewarmed Antibody Srcn Negative Antibody Identification COLD AGGLUTININ Crossmatch See Detail 11/23/18 11/24/18 11/24/18 21:18 05:30 05:30 WBC 7.9 RBC 2.70 L Hgb 8.3 L Hct 25.0 L MCV 92.8 MCH 30.8 MCHC 33.1 RDW 16.5 H Plt Count 276 MPV 8.4 Sodium Potassium Chloride Carbon Dioxide Anion Gap BUN Creatinine Creat Clearance w eGFR POC Glucometer 93 Random Glucose Calcium Total Bilirubin AST ALT Alkaline Phosphatase Total Protein Albumin Random Vancomycin 22.9 Blood Type Antibody Screen Prewarmed Antibody Srcn Antibody Identification Crossmatch 11/24/18 11/24/18 05:30 06:17 WBC RBC Hgb Hct MCV MCH MCHC RDW Plt Count MPV Sodium 141 Potassium 3.6 Chloride 104 Carbon Dioxide 30 Anion Gap 8 BUN 10 Creatinine 3.4 H Creat Clearance w eGFR 17.79 POC Glucometer 71 Random Glucose 71 L Calcium 7.6 L Total Bilirubin 0.4 AST 29 ALT 15 Alkaline Phosphatase 90 Total Protein 6.5 Albumin 1.6 L Random Vancomycin Blood Type Antibody Screen Prewarmed Antibody Srcn Antibody Identification Crossmatch Assessment/Plan Acute Respiratory Failure RUL Atelectasis R/O PNA ESRD on HD DM HTN HLD Prior CVA COPD Resolved hypotension R/O Acute CVA Aspiration precautions Chest PT BD TX Short course of Medrol ABX per ID Neuro checks HD per Renal D/C Strict I & O Midodrine VTE prophylaxis Requires continued ICU monitoring due to tenuous overall status Dr Palmer Critical care time spent in reviewing chart, evaluating patient and formulating plan - 36 minutes.
[2018-11-24] MEDS: SEVELAMER CARBONATE 800 MG TAB (FP) PO SCH ×3 (10:34→18:28)
[2018-11-24] MEDS ORDERED: PT OWN MED DRAWER 7, Y5N ONE (10:41)
[2018-11-24] MEDS: PANTOPRAZOLE SODIUM 40 MG VIAL IVPUSH SCH (10:51)
[2018-11-24] MEDS: ZINC OXIDE 20% TOPICAL OINTMENT 454 GM JAR TP SCH ×2 (10:51→21:13)
--- NOTE | 2018-11-24 11:26 | PN ---
Progress Note, Physician Chief Complaint: DRESSING CHANGE BY NURSES I WALKED INTO THE ROOM PATIENT IN ICU COMFORTABLE - Current Medication List Current Medications: Active Medications Albuterol Sulfate (Ventolin 0.083% Nebulizer Soln -) 1 amp NEB Q4H PRN PRN Reason: SHORT OF BREATH/WHEEZING Albuterol/Ipratropium (Duoneb -) 1 amp NEB RQID [facility] Apixaban (Eliquis -) 5 mg PO BID [facility] Last Admin: 11/23/18 21:28 Dose: Not Given Atorvastatin Calcium (Lipitor -) 20 mg PO HS [facility] Last Admin: 11/23/18 21:28 Dose: Not Given Chlorhexidine Gluconate (Hibiclens For Decolonization -) 1 applic TP HS [facility] Last Admin: 11/23/18 21:21 Dose: 1 applic Clopidogrel Bisulfate (Plavix -) 75 mg PO DAILY [facility] Last Admin: 11/23/18 11:26 Dose: Not Given Collagenase (Santyl -) 1 applic TP DAILY [facility]; Protocol Last Admin: 11/23/18 09:11 Dose: 1 applic Dextrose (D50w (Vial) -) 25 gm IVPUSH PRN PRN PRN Reason: HYPOGLYCEMIA Escitalopram Oxalate (Lexapro -) 10 mg PO DAILY [facility] Last Admin: 11/23/18 11:26 Dose: Not Given Heparin Sodium (Porcine) (Heparin -) 5,000 unit SQ TID [facility] Last Admin: 11/24/18 06:09 Dose: 5,000 unit Piperacillin Sod/Tazobactam (Sod 2.25 gm/ Dextrose) 50 mls @ 100 mls/hr IVPB Q8H-IV [facility]; Protocol Last Admin: 11/24/18 10:45 Dose: 100 mls/hr Insulin Aspart (Novolog Vial Sliding Scale -) 1 vial SQ ACHS [facility]; Protocol Last Admin: 11/24/18 06:19 Dose: Not Given Methylprednisolone Sodium Succinate (Solu-Medrol -) 40 mg IVPUSH ONCE ONE Stop: 11/24/18 18:01 Midodrine (Proamatine -) 10 mg PO MoWeFr@0800 [facility] Last Admin: 11/23/18 15:15 Dose: Not Given Multi-Ingredient Ointment (Zinc Oxide 20% Topical Oint) 1 gm TP BID [facility] Last Admin: 11/24/18 10:51 Dose: 1 applic Mupirocin (Bactroban Ointment (For Decolonization) -) 1 applic NS BID [facility] Stop: 11/27/18 09:59 Last Admin: 11/23/18 22:41 Dose: 1 applic Pantoprazole Sodium (Protonix Iv) 40 mg IVPUSH DAILY [facility] Last Admin: 11/24/18 10:51 Dose: 40 mg Sevelamer Carbonate (Renvela -) 1,600 mg PO TIDCM [facility] Last Admin: 11/24/18 10:34 Dose: Not Given Tamsulosin HCl (Flomax -) 0.4 mg PO HS [facility] Last Admin: 11/23/18 21:28 Dose: Not Given - Objective Vital Signs: Vital Signs Temperature 98.8 F 11/24/18 06:00 Pulse Rate 86 11/24/18 08:00 Respiratory Rate 18 11/24/18 08:00 Blood Pressure 135/71 11/24/18 08:00 O2 Sat by Pulse Oximetry (%) 100 11/23/18 21:00 Constitutional: Yes: Calm Eyes: Yes: WNL HENT: Yes: WNL Neck: Yes: WNL Cardiovascular: Yes: Regular Rate and Rhythm Respiratory: Yes: Diminished, On Nasal O2 Gastrointestinal: Yes: Soft Genitourinary: Yes: Incontinence, Other Musculoskeletal: Yes: Muscle Weakness Extremities: Yes: Amputation, Deformity Wound/Incision: Yes: Dressing Dry and Intact Neurological: Yes: Pre-Existing Deficit, Weakness ...Motor Strength: LLE Labs: CBC, BMP 11/24/18 05:30 11/24/18 05:30 INR, PTT INR 1.32 (0.83-1.09) H 11/21/18 21:03 Problem List - Problems (1) Acute hypoxemic respiratory failure Code(s): J96.01 - ACUTE RESPIRATORY FAILURE WITH HYPOXIA (2) ESRD (end stage renal disease) Code(s): N18.6 - END STAGE RENAL DISEASE (3) Elevated troponin Code(s): R74.8 - ABNORMAL LEVELS OF OTHER SERUM ENZYMES (4) Hypotension Code(s): I95.9 - HYPOTENSION, UNSPECIFIED (5) A-fib Code(s): I48.91 - UNSPECIFIED ATRIAL FIBRILLATION (6) Anemia Code(s): D64.9 - ANEMIA, UNSPECIFIED (7) Cellulitis Code(s): L03.90 - CELLULITIS, UNSPECIFIED Qualifiers: Site of cellulitis: extremity Site of cellulitis of extremity: lower extremity Laterality: right Qualified Code(s): L03.115 - Cellulitis of right lower limb (8) HTN (hypertension) Code(s): I10 - ESSENTIAL (PRIMARY) HYPERTENSION Qualifiers: Hypertension type: essential hypertension Qualified Code(s): I10 - Essential (primary) hypertension (9) MRSA (methicillin resistant staph aureus) culture positive Code(s): Z22.322 - CARRIER OR SUSPECTED CARRIER OF METHICILLIN RESIS STAPH (10) Wound, open, foot Code(s): S91.309A - UNSPECIFIED OPEN WOUND, UNSPECIFIED FOOT, INITIAL ENCOUNTER Qualifiers: Laterality: right Assessment/Plan IV ABX ID CONSULT CHECK CX WOUND CARE DVT PROPHYLAXIS ADVANCED DIRECTIVES TO BE D/W FAMILY POOR OVERALL PROGNOSIS
[2018-11-24] MEDS: MUPIROCIN 2% TOPICAL OINTMENT FOR DECOLONIZATION NS SCH ×2 (11:37→21:11)
[2018-11-24] MEDS: COLLAGENASE CLOSTRIDIUM HIST. 30 GRAMS TUBE TP SCH (11:37)
--- NOTE | 2018-11-24 12:20 | PN ---
Physical Exam: SUBJECTIVE: Patient seen and examined this AM in ICU. S/P Extubation yesterday, Tolerating venti-mask well. No acute events overnight. OBJECTIVE: Vital Signs Period Temp Pulse Resp BP Sys/Zamorano Pulse Ox Last 24 Hr 98 F-98.8 F 68-105 15-26 71-177/41-124 100 GENERAL: Awake, Alert HEAD: NCAT EYES: PERRL ENT: Moist mucous membranes NECK: Supple LUNGS: Diminished breath sounds at the bases, no wheezes, no crackles HEART: Regular rate and rhythm, S1, S2 without murmur ABDOMEN: Soft, nontender, nondistended, + bowel sounds, no guarding NEUROLOGICAL: Awake, Confused SKIN: Warm, dry Laboratory Results - last 24 hr 11/22/18 11/23/18 11/23/18 00:40 18:03 21:18 WBC RBC Hgb Hct MCV MCH MCHC RDW Plt Count MPV Sodium Potassium Chloride Carbon Dioxide Anion Gap BUN Creatinine Creat Clearance w eGFR POC Glucometer 88 93 Random Glucose Calcium Total Bilirubin AST ALT Alkaline Phosphatase Total Protein Albumin Random Vancomycin Blood Type A POSITIVE Antibody Screen Positive H Prewarmed Antibody Srcn Negative Antibody Identification COLD AGGLUTININ Crossmatch See Detail 11/24/18 11/24/18 11/24/18 05:30 05:30 05:30 WBC 7.9 RBC 2.70 L Hgb 8.3 L Hct 25.0 L MCV 92.8 MCH 30.8 MCHC 33.1 RDW 16.5 H Plt Count 276 MPV 8.4 Sodium 141 Potassium 3.6 Chloride 104 Carbon Dioxide 30 Anion Gap 8 BUN 10 Creatinine 3.4 H Creat Clearance w eGFR 17.79 POC Glucometer Random Glucose 71 L Calcium 7.6 L Total Bilirubin 0.4 AST 29 ALT 15 Alkaline Phosphatase 90 Total Protein 6.5 Albumin 1.6 L Random Vancomycin 22.9 Blood Type Antibody Screen Prewarmed Antibody Srcn Antibody Identification Crossmatch 11/24/18 11/24/18 06:17 12:06 WBC RBC Hgb Hct MCV MCH MCHC RDW Plt Count MPV Sodium Potassium Chloride Carbon Dioxide Anion Gap BUN Creatinine Creat Clearance w eGFR POC Glucometer 71 79 Random Glucose Calcium Total Bilirubin AST ALT Alkaline Phosphatase Total Protein Albumin Random Vancomycin Blood Type Antibody Screen Prewarmed Antibody Srcn Antibody Identification Crossmatch Microbiology 11/22/18 00:40 Blood - Peripheral Venous Blood Culture - Preliminary NO GROWTH OBTAINED AFTER 48 HOURS, INCUBATION TO CONTINUE FOR 3 DAYS. 11/22/18 00:40 Blood - Peripheral Venous Blood Culture - Preliminary NO GROWTH OBTAINED AFTER 48 HOURS, INCUBATION TO CONTINUE FOR 3 DAYS. Active Medications Albuterol Sulfate (Ventolin 0.083% Nebulizer Soln -) 1 amp NEB Q4H PRN PRN Reason: SHORT OF BREATH/WHEEZING Albuterol/Ipratropium (Duoneb -) 1 amp NEB RQID [facility] Apixaban (Eliquis -) 5 mg PO BID [facility] Last Admin: 11/23/18 21:28 Dose: Not Given Atorvastatin Calcium (Lipitor -) 20 mg PO HS [facility] Last Admin: 11/23/18 21:28 Dose: Not Given Chlorhexidine Gluconate (Hibiclens For Decolonization -) 1 applic TP HS [facility] Last Admin: 11/23/18 21:21 Dose: 1 applic Clopidogrel Bisulfate (Plavix -) 75 mg PO DAILY [facility] Last Admin: 11/23/18 11:26 Dose: Not Given Collagenase (Santyl -) 1 applic TP DAILY [facility]; Protocol Last Admin: 11/24/18 11:37 Dose: 1 applic Dextrose (D50w (Vial) -) 25 gm IVPUSH PRN PRN PRN Reason: HYPOGLYCEMIA Escitalopram Oxalate (Lexapro -) 10 mg PO DAILY [facility] Last Admin: 11/23/18 11:26 Dose: Not Given Heparin Sodium (Porcine) (Heparin -) 5,000 unit SQ TID [facility] Last Admin: 11/24/18 06:09 Dose: 5,000 unit Piperacillin Sod/Tazobactam (Sod 2.25 gm/ Dextrose) 50 mls @ 100 mls/hr IVPB Q8H-IV [facility]; Protocol Last Admin: 11/24/18 10:45 Dose: 100 mls/hr Insulin Aspart (Novolog Vial Sliding Scale -) 1 vial SQ ACHS [facility]; Protocol Last Admin: 11/24/18 06:19 Dose: Not Given Methylprednisolone Sodium Succinate (Solu-Medrol -) 40 mg IVPUSH ONCE ONE Stop: 11/24/18 18:01 Midodrine (Proamatine -) 10 mg PO MoWeFr@0800 [facility] Last Admin: 11/23/18 15:15 Dose: Not Given Multi-Ingredient Ointment (Zinc Oxide 20% Topical Oint) 1 gm TP BID [facility] Last Admin: 11/24/18 10:51 Dose: 1 applic Mupirocin (Bactroban Ointment (For Decolonization) -) 1 applic NS BID [facility] Stop: 11/27/18 09:59 Last Admin: 11/24/18 11:37 Dose: 1 applic Pantoprazole Sodium (Protonix Iv) 40 mg IVPUSH DAILY [facility] Last Admin: 11/24/18 10:51 Dose: 40 mg Sevelamer Carbonate (Renvela -) 1,600 mg PO TIDCM [facility] Last Admin: 11/24/18 10:34 Dose: Not Given Tamsulosin HCl (Flomax -) 0.4 mg PO HS [facility] Last Admin: 11/23/18 21:28 Dose: Not Given ASSESSMENT/PLAN: 73 y/o M resident of [facility] with PMHx of ESRD (HD on MWF), DM, HTN, HLD, prior CVA, COPD will be monitored in ICU after an episode of Hypotension and Unresponsiveness. #Neuro Unresponsive after pulling out dialysis catheter Hx of Prior CVA -Neurochecks Q4h -Aspiration, Seizure precautions -HOB elevated -Continue home dose Escitalopram #Cardio Hypotensive on admission, Improved Hcx of HTN, HLD -Continue home dose Apixaban, Atorvastatin Clopidogrel, Midodrine -ECHO: EF 50-55%, RWMA cannot be excluded, Mild MR TR, Impaired LV Relaxation -Dr. Coulter consulted, Appreciate rec's #Pulm Acute Respiratory Failure S/P Extubation Hx of COPD -CXR: RUL atelectasis. Increased right lung markings. Elevated right hemidiaphragm. -Supplemental O2 to maintain SpO2 >90% -Continue Albuterol NEB, Albuterol/Ipratropium QID -Give 2 doses Methylprednisolone 40mg IV today -Chest PT -Incentive Spirometer #Renal S/P Trialysis catheter placement Hx of ESRD -D/C Webster today -Monitor Urine output, I&O's -Dr. Henriquez consulted, Appreciate rec's #ID R/O Pneumonia -Afebrile, without leukocytosis -Blood Cx NGTD -Dr. Multani consulted, Appreciate rec's -Continue Piperacillin Tazobactam 2.25gm Q8H #Endo Hx of DM -BGM ISS ACHS #FEN -No standing fluids -Repete lytes PRN -NPO #PPx -DVT: Heparin -GI: Pantoprazole #LTD: -Trialysis placed 11/22/18 Dispo: Continue to monitor in the ICU Visit type - Emergency Visit Emergency Visit: Yes ED Registration Date: 11/21/18 Care time: The patient presented to the Emergency Department on the above date and was hospitalized for further evaluation of their emergent condition. - New Patient This patient is new to me today: Yes Date on this admission: 11/24/18 - Critical Care Critical Care patient: Yes Total Critical Care Time (in minutes): 36 Critical Care Statement: The care of this patient involved high complexity decision making to prevent further life threatening deterioration of the patient 's condition and/or to evaluate & treat vital organ system(s) failure or risk of failure.
[2018-11-24] MEDS: ALBUTEROL SO4 2.5/IPRATROPIUM 0.5 INH SOL 3 ML VIAL.NEB. NEB SCH ×3 (12:52→20:50)
[2018-11-24] MEDS: ESCITALOPRAM OXALATE 10 MG TABLET (FP) PO SCH (14:41)
[2018-11-24] MEDS: APIXABAN 5 MG TABLET PO SCH ×2 (14:41→21:11)
[2018-11-24] MEDS: CLOPIDOGREL BISULFATE 75 MG TABLET (FP) PO SCH (14:42)
--- NOTE | 2018-11-24 14:53 | PN ---
Progress Note, Physician History of Present Illness: Pt seen and examined at bedside. He is now extubated. He is awake but not answering questions. - Current Medication List Current Medications: Active Medications Albuterol Sulfate (Ventolin 0.083% Nebulizer Soln -) 1 amp NEB Q4H PRN PRN Reason: SHORT OF BREATH/WHEEZING Albuterol/Ipratropium (Duoneb -) 1 amp NEB RQID [facility] Last Admin: 11/24/18 12:52 Dose: 1 amp Apixaban (Eliquis -) 5 mg PO BID [facility] Last Admin: 11/24/18 14:41 Dose: 5 mg Atorvastatin Calcium (Lipitor -) 20 mg PO HS [facility] Last Admin: 11/23/18 21:28 Dose: Not Given Chlorhexidine Gluconate (Hibiclens For Decolonization -) 1 applic TP HS [facility] Last Admin: 11/23/18 21:21 Dose: 1 applic Clopidogrel Bisulfate (Plavix -) 75 mg PO DAILY [facility] Last Admin: 11/24/18 14:42 Dose: 75 mg Collagenase (Santyl -) 1 applic TP DAILY [facility]; Protocol Last Admin: 11/24/18 11:37 Dose: 1 applic Dextrose (D50w (Vial) -) 25 gm IVPUSH PRN PRN PRN Reason: HYPOGLYCEMIA Escitalopram Oxalate (Lexapro -) 10 mg PO DAILY [facility] Last Admin: 11/24/18 14:41 Dose: 10 mg Heparin Sodium (Porcine) (Heparin -) 5,000 unit SQ TID [facility] Last Admin: 11/24/18 14:42 Dose: 5,000 unit Piperacillin Sod/Tazobactam (Sod 2.25 gm/ Dextrose) 50 mls @ 100 mls/hr IVPB Q8H-IV [facility]; Protocol Last Admin: 11/24/18 10:45 Dose: 100 mls/hr Insulin Aspart (Novolog Vial Sliding Scale -) 1 vial SQ ACHS [facility]; Protocol Last Admin: 11/24/18 12:26 Dose: Not Given Methylprednisolone Sodium Succinate (Solu-Medrol -) 40 mg IVPUSH ONCE ONE Stop: 11/24/18 18:01 Midodrine (Proamatine -) 10 mg PO MoWeFr@0800 [facility] Last Admin: 11/23/18 15:15 Dose: Not Given Multi-Ingredient Ointment (Zinc Oxide 20% Topical Oint) 1 gm TP BID [facility] Last Admin: 11/24/18 10:51 Dose: 1 applic Mupirocin (Bactroban Ointment (For Decolonization) -) 1 applic NS BID [facility] Stop: 11/27/18 09:59 Last Admin: 11/24/18 11:37 Dose: 1 applic Pantoprazole Sodium (Protonix Iv) 40 mg IVPUSH DAILY [facility] Last Admin: 11/24/18 10:51 Dose: 40 mg Sevelamer Carbonate (Renvela -) 1,600 mg PO TIDCM [facility] Last Admin: 11/24/18 12:27 Dose: Not Given Tamsulosin HCl (Flomax -) 0.4 mg PO HS [facility] Last Admin: 11/23/18 21:28 Dose: Not Given - Objective Vital Signs: Vital Signs Temperature 97.8 F 11/24/18 14:00 Pulse Rate 85 11/24/18 14:00 Respiratory Rate 11/24/18 14:00 Blood Pressure 127/65 11/24/18 14:00 O2 Sat by Pulse Oximetry (%) 100 11/24/18 09:00 Constitutional: Yes: Calm Eyes: Yes: Conjunctiva Clear HENT: Yes: Atraumatic Neck: Yes: Supple Cardiovascular: Yes: S1, S2 Respiratory: Yes: On Venti-Mask Gastrointestinal: Yes: Soft Genitourinary: Yes: Webster Present Musculoskeletal: Yes: Muscle Weakness Edema: No Wound/Incision: Yes: Dressing Dry and Intact Neurological: Yes: Other (awake) Labs: CBC, BMP 11/24/18 05:30 11/24/18 05:30 INR, PTT INR 1.32 (0.83-1.09) H 11/21/18 21:03 - ....Imaging Chest X-ray: Report Reviewed Problem List - Problems (1) ESRD (end stage renal disease) Code(s): N18.6 - END STAGE RENAL DISEASE (2) Anemia Code(s): D64.9 - ANEMIA, UNSPECIFIED Assessment/Plan Current Medications Generic Name Dose Route Start Last Admin Trade Name Freq PRN Reason Stop Dose Admin Albuterol Sulfate 1 amp 11/24/18 10:16 Ventolin 0.083% Nebulizer Soln - NEB Q4H PRN SHORT OF BREATH/WHEEZING Albuterol/Ipratropium 1 amp 11/24/18 12:00 11/24/18 12:52 Duoneb - NEB 1 amp RQID [facility] Administration Apixaban 5 mg 11/22/18 10:00 11/24/18 14:41 Eliquis - PO 5 mg BID [facility] Administration Atorvastatin Calcium 20 mg 11/22/18 22:00 11/23/18 21:28 Lipitor - PO Not Given HS [facility] Chlorhexidine Gluconate 1 applic 11/22/18 22:00 11/23/18 21:21 Hibiclens For Decolonization - TP 1 applic HS [facility] Administration Clopidogrel Bisulfate 75 mg 11/22/18 10:00 11/24/18 14:42 Plavix - PO 75 mg DAILY [facility] Administration Collagenase 1 applic 11/22/18 10:00 11/24/18 11:37 Santyl - TP 1 applic DAILY [facility] Administration Protocol Dextrose 25 gm 11/23/18 18:34 D50w (Vial) - IVPUSH PRN PRN HYPOGLYCEMIA Escitalopram Oxalate 10 mg 11/22/18 10:00 11/24/18 14:41 Lexapro - PO 10 mg DAILY [facility] Administration Heparin Sodium (Porcine) 5,000 unit 11/22/18 06:00 11/24/18 14:42 Heparin - SQ 5,000 unit TID [facility] Administration Piperacillin Sod/Tazobactam 50 mls @ 100 mls/hr 11/22/18 11:15 11/24/18 10:45 Sod 2.25 gm/ Dextrose IVPB 100 mls/hr Q8H-IV [facility] Administration Protocol Insulin Aspart 1 vial 11/22/18 07:00 11/24/18 12:26 Novolog Vial Sliding Scale - SQ Not Given ACHS [facility] Protocol Methylprednisolone Sodium Succinate 40 mg 11/24/18 18:00 Solu-Medrol - IVPUSH 11/24/18 18:01 ONCE ONE Midodrine 10 mg 11/23/18 08:00 11/23/18 15:15 Proamatine - PO Not Given MoWeFr@0800 [facility] Multi-Ingredient Ointment 1 gm 11/22/18 10:00 11/24/18 10:51 Zinc Oxide 20% Topical Oint TP 1 applic BID [facility] Administration Mupirocin 1 applic 11/22/18 10:00 11/24/18 11:37 Bactroban Ointment (For Decolonization) - NS 11/27/18 09:59 1 applic BID [facility] Administration Pantoprazole Sodium 40 mg 11/22/18 10:00 11/24/18 10:51 Protonix Iv IVPUSH 40 mg DAILY [facility] Administration Sevelamer Carbonate 1,600 mg 11/22/18 08:00 11/24/18 12:27 Renvela - PO Not Given TIDCM [facility] Tamsulosin HCl 0.4 mg 11/22/18 22:00 11/23/18 21:28 Flomax - PO Not Given HS [facility] Impression 1. ESRD 2. acute rep failure 3. DM 4. hyperlipidemia 5. HTN 6. gout 7. proteinuria 8. hypotension/shock 9. sepsis Plan - next HD on Monday - monitor pulse ox - pt now extubated - monitor hg - epogen for anemia - renal diet once eating - will follow
[2018-11-24] MEDS: TAMSULOSIN HCL 0.4 MG CAP PO SCH (21:11)
[2018-11-24] MEDS: CHLORHEXIDINE GLUCONATE 4% CLEANSER FOR DECOLONIZATION TP SCH (21:12)
[2018-11-24] MEDS: ATORVASTATIN CA 20 MG TABLET (FP) PO SCH (21:12)
[2018-11-25] MEDS ORDERED: PIPERACILLIN/TAZOBACTAM 2.25 GM VIAL IVPB ONE ×3 (01:18→17:02)
[2018-11-25] MEDS ORDERED: DEXTROSE 5%-WATER - 50 ML IVPB ONE ×3 (01:19→17:03)
[2018-11-25] MEDS: PIPERACILLIN/TAZOB 2.25 GM 2.25 GM in DEXTROSE 5%-WATER - 50 ML IVPB SCH ×3 (01:30→17:05)
[2018-11-25] MEDS: HEPARIN NA (PORCINE) 5,000 UNITS/ML 1ML VIAL SQ SCH ×2 (05:09→14:02)
[2018-11-25 05:59] LABS: BASO % 0.2 % (0-2.0); HEMATOCRIT 25.4 % (35.4-49); HEMOGLOBIN 8.3 GM/dL (11.7-16.9); LYMPH % 10.7 % (8-40); MCH 30.1 pg (25.7-33.7); MCHC 32.8 g/dl (32.0-35.9); MEAN PLT VOLUME 8.7 fl (7.5-11.1); MONO % 3.3 % (3.8-10.2); NEUT % 85.8 % (42.8-82.8); PLATELET COUNT 308 K/MM3 (134-434); RBC 2.76 M/mm3 (4.00-5.60); RDW 16.4 % (11.9-15.9); WHITE BLOOD COUNT 6.9 K/mm3 (4.0-10.0)
[2018-11-25] MEDS: INSULIN SLIDING SCALE (NOVOLOG) 1 VIAL SQ SCH ×4 (06:27→23:30)
[2018-11-25 06:30] LABS: ALBUMIN 1.7 g/dl (3.4-5.0); ALK PHOS 96 U/L (45-117); ANION GAP 10 MMOL/L (8-16); BILIRUBIN,TOTAL 0.4 mg/dL (0.2-1); BLOOD UREA NITROGEN 17 mg/dL (7-18); CALCIUM 7.6 mg/dL (8.5-10.1); CHLORIDE 104 mmol/L (98-107); CO2 27 mmol/L (21-32); CREATININE 4.7 mg/dL (0.55-1.3); GLUCOSE,RANDOM 120 mg/dL (74-106); PHOSPHOROUS 4.3 mg/dL (2.5-4.9); POTASSIUM 3.9 mmol/L (3.5-5.1); SGOT/AST 14 U/L (15-37); SGPT/ALT 9 U/L (13-61); SODIUM 141 mmol/L (136-145); TOT PROT 6.8 g/dl (6.4-8.2)
[2018-11-25] MEDS: ALBUTEROL SO4 2.5/IPRATROPIUM 0.5 INH SOL 3 ML VIAL.NEB. NEB SCH ×4 (08:00→20:00)
--- NOTE | 2018-11-25 09:17 | PN ---
Progress Note (short form) - Note Progress Note: extubated yesterday much more alert today talking no complaints Vital Signs Period Temp Pulse Resp BP Sys/Zamorano Pulse Ox Last 24 Hr 97.8 F-98.9 F 69-85 18-25 127-155/62-84 cor-rrr lungs clear abd soft, nt ext left foot wounds are clean with granulation no purulence noted CBC, BMP 11/25/18 05:30 11/25/18 05:30 Microbiology 11/22/18 00:40 Blood - Peripheral Venous Blood Culture - Preliminary NO GROWTH OBTAINED AFTER 72 HOURS, INCUBATION TO CONTINUE FOR 2 DAYS. 11/22/18 00:40 Blood - Peripheral Venous Blood Culture - Preliminary NO GROWTH OBTAINED AFTER 72 HOURS, INCUBATION TO CONTINUE FOR 2 DAYS. cxray- rul atelectasis improved Current Medications Albuterol Sulfate (Ventolin 0.083% Nebulizer Soln -) 1 amp NEB Q4H PRN PRN Reason: SHORT OF BREATH/WHEEZING Albuterol/Ipratropium (Duoneb -) 1 amp NEB RQID [facility] Last Admin: 11/25/18 08:00 Dose: 1 amp Apixaban (Eliquis -) 5 mg PO BID [facility] Last Admin: 11/24/18 21:11 Dose: 5 mg Atorvastatin Calcium (Lipitor -) 20 mg PO HS [facility] Last Admin: 11/24/18 21:12 Dose: 20 mg Chlorhexidine Gluconate (Hibiclens For Decolonization -) 1 applic TP HS [facility] Last Admin: 11/24/18 21:12 Dose: 1 applic Clopidogrel Bisulfate (Plavix -) 75 mg PO DAILY [facility] Last Admin: 11/24/18 14:42 Dose: 75 mg Collagenase (Santyl -) 1 applic TP DAILY [facility]; Protocol Last Admin: 11/24/18 11:37 Dose: 1 applic Dextrose (D50w (Vial) -) 25 gm IVPUSH PRN PRN PRN Reason: HYPOGLYCEMIA Escitalopram Oxalate (Lexapro -) 10 mg PO DAILY [facility] Last Admin: 11/24/18 14:41 Dose: 10 mg Heparin Sodium (Porcine) (Heparin -) 5,000 unit SQ TID [facility] Last Admin: 11/25/18 05:09 Dose: 5,000 unit Piperacillin Sod/Tazobactam (Sod 2.25 gm/ Dextrose) 50 mls @ 100 mls/hr IVPB Q8H-IV [facility]; Protocol Last Admin: 11/25/18 01:30 Dose: 100 mls/hr Insulin Aspart (Novolog Vial Sliding Scale -) 1 vial SQ ACHS [facility]; Protocol Last Admin: 11/25/18 06:27 Dose: Not Given Midodrine (Proamatine -) 10 mg PO MoWeFr@0800 [facility] Last Admin: 11/23/18 15:15 Dose: Not Given Multi-Ingredient Ointment (Zinc Oxide 20% Topical Oint) 1 gm TP BID [facility] Last Admin: 11/24/18 21:13 Dose: 1 gm Mupirocin (Bactroban Ointment (For Decolonization) -) 1 applic NS BID [facility] Stop: 11/27/18 09:59 Last Admin: 11/24/18 21:11 Dose: 1 applic Pantoprazole Sodium (Protonix Iv) 40 mg IVPUSH DAILY [facility] Last Admin: 11/24/18 10:51 Dose: 40 mg Sevelamer Carbonate (Renvela -) 1,600 mg PO TIDCM [facility] Last Admin: 11/24/18 18:28 Dose: Not Given Tamsulosin HCl (Flomax -) 0.4 mg PO HS [facility] Last Admin: 11/24/18 21:11 Dose: 0.4 mg Laboratory Tests 11/24/18 05:30 Random Vancomycin 22.9 a/p respiratory failure extubated pneumonia-on zosyn MRSA bacteremia- continue vancomycin with HD RLE wound healing esrd/hd clinically improving no objection to replacing permacath- blood cultures are negative
--- NOTE | 2018-11-25 09:33 | PN ---
Progress Note, Physician Chief Complaint: ASLEEP COMFORTABLE NO ACUTE CHANGES OVERNIGHT - Current Medication List Current Medications: Active Medications Albuterol Sulfate (Ventolin 0.083% Nebulizer Soln -) 1 amp NEB Q4H PRN PRN Reason: SHORT OF BREATH/WHEEZING Albuterol/Ipratropium (Duoneb -) 1 amp NEB RQID [facility] Last Admin: 11/25/18 08:00 Dose: 1 amp Apixaban (Eliquis -) 5 mg PO BID [facility] Last Admin: 11/24/18 21:11 Dose: 5 mg Atorvastatin Calcium (Lipitor -) 20 mg PO HS [facility] Last Admin: 11/24/18 21:12 Dose: 20 mg Chlorhexidine Gluconate (Hibiclens For Decolonization -) 1 applic TP HS [facility] Last Admin: 11/24/18 21:12 Dose: 1 applic Clopidogrel Bisulfate (Plavix -) 75 mg PO DAILY [facility] Last Admin: 11/24/18 14:42 Dose: 75 mg Collagenase (Santyl -) 1 applic TP DAILY [facility]; Protocol Last Admin: 11/24/18 11:37 Dose: 1 applic Dextrose (D50w (Vial) -) 25 gm IVPUSH PRN PRN PRN Reason: HYPOGLYCEMIA Escitalopram Oxalate (Lexapro -) 10 mg PO DAILY [facility] Last Admin: 11/24/18 14:41 Dose: 10 mg Heparin Sodium (Porcine) (Heparin -) 5,000 unit SQ TID [facility] Last Admin: 11/25/18 05:09 Dose: 5,000 unit Piperacillin Sod/Tazobactam (Sod 2.25 gm/ Dextrose) 50 mls @ 100 mls/hr IVPB Q8H-IV [facility]; Protocol Last Admin: 11/25/18 01:30 Dose: 100 mls/hr Insulin Aspart (Novolog Vial Sliding Scale -) 1 vial SQ ACHS [facility]; Protocol Last Admin: 11/25/18 06:27 Dose: Not Given Midodrine (Proamatine -) 10 mg PO MoWeFr@0800 [facility] Last Admin: 11/23/18 15:15 Dose: Not Given Multi-Ingredient Ointment (Zinc Oxide 20% Topical Oint) 1 gm TP BID [facility] Last Admin: 11/24/18 21:13 Dose: 1 gm Mupirocin (Bactroban Ointment (For Decolonization) -) 1 applic NS BID [facility] Stop: 11/27/18 09:59 Last Admin: 11/24/18 21:11 Dose: 1 applic Pantoprazole Sodium (Protonix Iv) 40 mg IVPUSH DAILY [facility] Last Admin: 11/24/18 10:51 Dose: 40 mg Sevelamer Carbonate (Renvela -) 1,600 mg PO TIDCM [facility] Last Admin: 11/24/18 18:28 Dose: Not Given Tamsulosin HCl (Flomax -) 0.4 mg PO HS [facility] Last Admin: 11/24/18 21:11 Dose: 0.4 mg - Objective Vital Signs: Vital Signs Temperature 98 F 11/25/18 06:00 Pulse Rate 69 11/25/18 06:00 Respiratory Rate 21 H 11/25/18 06:00 Blood Pressure 152/78 11/25/18 06:00 O2 Sat by Pulse Oximetry (%) 100 11/24/18 09:00 Constitutional: Yes: No Distress HENT: Yes: WNL Neck: Yes: WNL Cardiovascular: Yes: Regular Rate and Rhythm Respiratory: Yes: Diminished, On Nasal O2 Gastrointestinal: Yes: Soft Genitourinary: Yes: Other Musculoskeletal: Yes: Muscle Weakness Extremities: Yes: Amputation, Deformity Integumentary: Yes: Pressure Ulcer, Rash Wound/Incision: Yes: Dressing Dry and Intact ...Motor Strength: LLE, RLE Psychiatric: Yes: Other Labs: CBC, BMP 11/25/18 05:30 11/25/18 05:30 INR, PTT INR 1.32 (0.83-1.09) H 11/21/18 21:03 Problem List - Problems (1) Acute hypoxemic respiratory failure Code(s): J96.01 - ACUTE RESPIRATORY FAILURE WITH HYPOXIA (2) ESRD (end stage renal disease) Code(s): N18.6 - END STAGE RENAL DISEASE (3) Elevated troponin Code(s): R74.8 - ABNORMAL LEVELS OF OTHER SERUM ENZYMES (4) Hypotension Code(s): I95.9 - HYPOTENSION, UNSPECIFIED (5) A-fib Code(s): I48.91 - UNSPECIFIED ATRIAL FIBRILLATION (6) Anemia Code(s): D64.9 - ANEMIA, UNSPECIFIED (7) Cellulitis of foot Code(s): L03.119 - CELLULITIS OF UNSPECIFIED PART OF LIMB Assessment/Plan IV ABX RESPIRATORY SUPPORT 02 NC PULM EVAL APPRECIATED F/U CX DVT PROPHYLAXIS PT EVAL ADVANCED DIRECTIVES AND PALLIATIVE CARE CONSULT PATIENT SHOULD BE DNR/DNI
[2018-11-25] MEDS ORDERED: PT OWN MED DRAWER 7, Y5N ONE (09:55)
[2018-11-25] MEDS: SEVELAMER CARBONATE 800 MG TAB (FP) PO SCH ×3 (09:57→17:07)
[2018-11-25] MEDS: ESCITALOPRAM OXALATE 10 MG TABLET (FP) PO SCH (09:59)
[2018-11-25] MEDS: APIXABAN 5 MG TABLET PO SCH ×2 (09:59→22:43)
[2018-11-25] MEDS: PANTOPRAZOLE SODIUM 40 MG VIAL IVPUSH SCH (10:00)
[2018-11-25] MEDS: MUPIROCIN 2% TOPICAL OINTMENT FOR DECOLONIZATION NS SCH ×2 (10:00→22:43)
[2018-11-25] MEDS: CLOPIDOGREL BISULFATE 75 MG TABLET (FP) PO SCH (10:00)
--- NOTE | 2018-11-25 10:00 | PN ---
Teaching Attending Note Name of Resident: Zacarias Mcmanus ATTENDING PHYSICIAN STATEMENT I saw and evaluated the patient. I reviewed the resident's note and discussed the case with the resident. I agree with the resident's findings and plan as documented. SUBJECTIVE: Patient seen and examined in the ICU. Remains extubated. Awake and alert. More lucid today. Denies CP or SOB. Remains off pressors. CXR: Improved RUL atelectasis. Intake & Output 11/22/18 11/23/18 11/24/18 11/25/18 23:59 23:59 23:59 23:59 Intake Total 420 1128 100 103 Output Total 50 165 150 Balance 370 963 -50 103 Weight 176 lb 1 oz 178 lb 178 lb 3.2 oz 175 lb 11.2 oz Last Vital Signs Temp Pulse Resp BP Pulse Ox 98 F 72 19 136/74 98 11/25/18 06:00 11/25/18 08:00 11/25/18 08:00 11/25/18 08:00 11/25/18 08:00 Active Medications Albuterol Sulfate (Ventolin 0.083% Nebulizer Soln -) 1 amp NEB Q4H PRN PRN Reason: SHORT OF BREATH/WHEEZING Albuterol/Ipratropium (Duoneb -) 1 amp NEB RQID [facility] Last Admin: 11/25/18 08:00 Dose: 1 amp Apixaban (Eliquis -) 5 mg PO BID [facility] Last Admin: 11/24/18 21:11 Dose: 5 mg Atorvastatin Calcium (Lipitor -) 20 mg PO HS [facility] Last Admin: 11/24/18 21:12 Dose: 20 mg Chlorhexidine Gluconate (Hibiclens For Decolonization -) 1 applic TP HS [facility] Last Admin: 11/24/18 21:12 Dose: 1 applic Clopidogrel Bisulfate (Plavix -) 75 mg PO DAILY [facility] Last Admin: 11/24/18 14:42 Dose: 75 mg Collagenase (Santyl -) 1 applic TP DAILY [facility]; Protocol Last Admin: 11/24/18 11:37 Dose: 1 applic Dextrose (D50w (Vial) -) 25 gm IVPUSH PRN PRN PRN Reason: HYPOGLYCEMIA Escitalopram Oxalate (Lexapro -) 10 mg PO DAILY [facility] Last Admin: 11/24/18 14:41 Dose: 10 mg Heparin Sodium (Porcine) (Heparin -) 5,000 unit SQ TID [facility] Last Admin: 11/25/18 05:09 Dose: 5,000 unit Piperacillin Sod/Tazobactam (Sod 2.25 gm/ Dextrose) 50 mls @ 100 mls/hr IVPB Q8H-IV [facility]; Protocol Last Admin: 11/25/18 01:30 Dose: 100 mls/hr Insulin Aspart (Novolog Vial Sliding Scale -) 1 vial SQ ACHS [facility]; Protocol Last Admin: 11/25/18 06:27 Dose: Not Given Midodrine (Proamatine -) 10 mg PO MoWeFr@0800 [facility] Last Admin: 11/23/18 15:15 Dose: Not Given Multi-Ingredient Ointment (Zinc Oxide 20% Topical Oint) 1 gm TP BID [facility] Last Admin: 11/24/18 21:13 Dose: 1 gm Mupirocin (Bactroban Ointment (For Decolonization) -) 1 applic NS BID [facility] Stop: 11/27/18 09:59 Last Admin: 11/24/18 21:11 Dose: 1 applic Pantoprazole Sodium (Protonix Iv) 40 mg IVPUSH DAILY [facility] Last Admin: 11/24/18 10:51 Dose: 40 mg Sevelamer Carbonate (Renvela -) 1,600 mg PO TIDCM [facility] Last Admin: 11/24/18 18:28 Dose: Not Given Tamsulosin HCl (Flomax -) 0.4 mg PO HS [facility] Last Admin: 11/24/18 21:11 Dose: 0.4 mg Constitutional: Yes: Extubated, awake and alert, more lucid today Eyes: Yes: Conjunctiva Clear HENT: Yes: Atraumatic, Normocephalic Neck: Yes: Supple, Trachea Midline Cardiovascular: Yes: Regular Rate and Rhythm, S1, S2. No: JVD, Gallop, Murmur Respiratory: Yes: Extubated, scattered rhonchi Gastrointestinal: Yes: Normal Bowel Sounds, Soft. No: Distention Extremities: Yes: Other (Right ankle/foot wrapped in Kerlix dressing with deformed digits; extensive hemostatic wound along the lateral aspect) Edema: No Peripheral Pulses WNL: Yes Neurological: Yes: Awake. No: Facial Droop, Seizure Labs: Laboratory Results - last 24 hr 11/24/18 11/24/18 11/24/18 12:06 18:25 21:31 WBC RBC Hgb Hct MCV MCH MCHC RDW Plt Count MPV Absolute Neuts (auto) Neutrophils % Lymphocytes % Monocytes % Eosinophils % Basophils % Nucleated RBC % Sodium Potassium Chloride Carbon Dioxide Anion Gap BUN Creatinine Creat Clearance w eGFR POC Glucometer 79 131 123 Random Glucose Calcium Phosphorus Magnesium Total Bilirubin AST ALT Alkaline Phosphatase Total Protein Albumin 11/25/18 11/25/18 11/25/18 05:30 05:30 06:25 WBC 6.9 RBC 2.76 L Hgb 8.3 L Hct 25.4 L MCV 92.0 MCH 30.1 MCHC 32.8 RDW 16.4 H Plt Count 308 MPV 8.7 Absolute Neuts (auto) 5.9 Neutrophils % 85.8 H D Lymphocytes % 10.7 D Monocytes % 3.3 L Eosinophils % 0.0 D Basophils % 0.2 Nucleated RBC % 0 Sodium 141 Potassium 3.9 Chloride 104 Carbon Dioxide 27 Anion Gap 10 BUN 17 Creatinine 4.7 H Creat Clearance w eGFR 12.25 POC Glucometer 113 Random Glucose 120 H Calcium 7.6 L Phosphorus 4.3 Magnesium 2.0 Total Bilirubin 0.4 AST 14 L ALT 9 L Alkaline Phosphatase 96 Total Protein 6.8 Albumin 1.7 L Assessment/Plan Acute Respiratory Failure Resolved RUL Atelectasis PNA ESRD on HD DM HTN HLD Prior CVA COPD Resolved hypotension Do not suspect Acute CVA Aspiration precautions Chest PT BD TX ABX per ID HD per Renal Strict I & O Midodrine VTE prophylaxis Floor Dr Palmer
[2018-11-25] MEDS: COLLAGENASE CLOSTRIDIUM HIST. 30 GRAMS TUBE TP SCH (10:01)
[2018-11-25] MEDS: ZINC OXIDE 20% TOPICAL OINTMENT 454 GM JAR TP SCH ×2 (10:01→22:44)
--- NOTE | 2018-11-25 10:27 | PN ---
Physical Exam: SUBJECTIVE: Patient seen and examined at bedside. Much improved since yesterday. OBJECTIVE: Vital Signs Period Temp Pulse Resp BP Sys/Zamorano Pulse Ox Last 24 Hr 97.8 F-98.8 F 69-85 19-25 127-155/62-84 98 Gen: awake, alert, not oriented to place or time HEENT: NCAT, EOMI, adentulous Neck: supple, no jvd Cardio: rrr, normal s1s2, no mrg appreciated Pulm: cta b/l, no rales/ronchi Abd: Soft, nontender, pos bs Laboratory Results - last 24 hr 11/24/18 11/24/18 11/24/18 12:06 18:25 21:31 WBC RBC Hgb Hct MCV MCH MCHC RDW Plt Count MPV Absolute Neuts (auto) Neutrophils % Lymphocytes % Monocytes % Eosinophils % Basophils % Nucleated RBC % Sodium Potassium Chloride Carbon Dioxide Anion Gap BUN Creatinine Creat Clearance w eGFR POC Glucometer 79 131 123 Random Glucose Calcium Phosphorus Magnesium Total Bilirubin AST ALT Alkaline Phosphatase Total Protein Albumin 11/25/18 11/25/18 11/25/18 05:30 05:30 06:25 WBC 6.9 RBC 2.76 L Hgb 8.3 L Hct 25.4 L MCV 92.0 MCH 30.1 MCHC 32.8 RDW 16.4 H Plt Count 308 MPV 8.7 Absolute Neuts (auto) 5.9 Neutrophils % 85.8 H D Lymphocytes % 10.7 D Monocytes % 3.3 L Eosinophils % 0.0 D Basophils % 0.2 Nucleated RBC % 0 Sodium 141 Potassium 3.9 Chloride 104 Carbon Dioxide 27 Anion Gap 10 BUN 17 Creatinine 4.7 H Creat Clearance w eGFR 12.25 POC Glucometer 113 Random Glucose 120 H Calcium 7.6 L Phosphorus 4.3 Magnesium 2.0 Total Bilirubin 0.4 AST 14 L ALT 9 L Alkaline Phosphatase 96 Total Protein 6.8 Albumin 1.7 L Active Medications Generic Name Dose Route Start Last Admin Trade Name Freq PRN Reason Stop Dose Admin Albuterol Sulfate 1 amp 11/24/18 10:16 Ventolin 0.083% Nebulizer Soln - NEB Q4H PRN SHORT OF BREATH/WHEEZING Albuterol/Ipratropium 1 amp 11/24/18 12:00 11/25/18 08:00 Duoneb - NEB 1 amp RQID [facility] Administration Apixaban 5 mg 11/22/18 10:00 11/25/18 09:59 Eliquis - PO 5 mg BID [facility] Administration Atorvastatin Calcium 20 mg 11/22/18 22:00 11/24/18 21:12 Lipitor - PO 20 mg HS [facility] Administration Chlorhexidine Gluconate 1 applic 11/22/18 22:00 11/24/18 21:12 Hibiclens For Decolonization - TP 1 applic HS [facility] Administration Clopidogrel Bisulfate 75 mg 11/22/18 10:00 11/25/18 10:00 Plavix - PO 75 mg DAILY [facility] Administration Collagenase 1 applic 11/22/18 10:00 11/25/18 10:01 Santyl - TP 1 applic DAILY [facility] Administration Protocol Dextrose 25 gm 11/23/18 18:34 D50w (Vial) - IVPUSH PRN PRN HYPOGLYCEMIA Escitalopram Oxalate 10 mg 11/22/18 10:00 11/25/18 09:59 Lexapro - PO 10 mg DAILY [facility] Administration Heparin Sodium (Porcine) 5,000 unit 11/22/18 06:00 11/25/18 05:09 Heparin - SQ 5,000 unit TID [facility] Administration Piperacillin Sod/Tazobactam 50 mls @ 100 mls/hr 11/22/18 11:15 11/25/18 10:00 Sod 2.25 gm/ Dextrose IVPB 100 mls/hr Q8H-IV [facility] Administration Protocol Insulin Aspart 1 vial 11/22/18 07:00 11/25/18 06:27 Novolog Vial Sliding Scale - SQ Not Given ACHS COUNTS [facility]CLUDE 234 BEDS AT [facility] Protocol Midodrine 10 mg 11/23/18 08:00 11/23/18 15:15 Proamatine - PO Not Given MoWeFr@0800 COUNTS INCLUDE 234 BEDS AT [facility] Multi-Ingredient Ointment 1 gm 11/22/18 10:00 11/25/18 10:01 Zinc Oxide 20% Topical Oint TP 1 gm BID [facility] Administration Mupirocin 1 applic 11/22/18 10:00 11/25/18 10:00 Bactroban Ointment (For Decolonization) - NS 11/27/18 09:59 1 applic BID [facility] Administration Pantoprazole Sodium 40 mg 11/22/18 10:00 11/25/18 10:00 Protonix Iv IVPUSH 40 mg DAILY [facility] Administration Sevelamer Carbonate 1,600 mg 11/22/18 08:00 11/25/18 09:57 Renvela - PO 1,600 mg TIDCM [facility] Administration Tamsulosin HCl 0.4 mg 11/22/18 22:00 11/24/18 21:11 Flomax - PO 0.4 mg HS [facility] Administration ASSESSMENT/PLAN: 73 y/o M resident of [facility] with PMHx of ESRD (HD on MWF), DM, HTN, HLD, prior CVA, COPD will be monitored in ICU after an episode of Hypotension and Unresponsiveness. Improving. #Neuro Currently responsive Hx of Prior CVA -Neurochecks Q4h -Aspiration, Seizure precautions -HOB elevated -Continue home dose Escitalopram #Cardio Hypotensive on admission, Improved Hcx of HTN, HLD -Continue home dose Apixaban, Atorvastatin Clopidogrel, Midodrine -ECHO: EF 50-55%, RWMA cannot be excluded, Mild MR TR, Impaired LV Relaxation -Dr. Coulter consulted, Appreciate rec's #Pulm Acute Respiratory Failure S/P Extubation Hx of COPD -CXR: Improving -Supplemental O2 to maintain SpO2 >90% -Continue Albuterol NEB, Albuterol/Ipratropium QID -Chest PT -Incentive Spirometer #Renal S/P Trialysis catheter placement Hx of ESRD -Monitor Urine output, I&O's -Dr. Henriquez consulted, Appreciate rec's #ID R/O Pneumonia -Afebrile, without leukocytosis -Blood Cx NGTD -Dr. Multani consulted, Appreciate rec's -Continue Piperacillin Tazobactam 2.25gm Q8H #Endo Hx of DM -BGM ISS ACHS #FEN -No standing fluids -Repete lytes PRN -NPO #PPx -DVT: Heparin -GI: Pantoprazole #LTD: -Trialysis placed 11/22/18 Dispo: Continue to monitor in the ICU Visit type - Emergency Visit Emergency Visit: No - New Patient This patient is new to me today: Yes Date on this admission: 11/25/18 - Critical Care Critical Care patient: Yes Total Critical Care Time (in minutes): 45 Critical Care Statement: The care of this patient involved high complexity decision making to prevent further life threatening deterioration of the patient 's condition and/or to evaluate & treat vital organ system(s) failure or risk of failure.
--- NOTE | 2018-11-25 18:53 | PN ---
Progress Note, Physician History of Present Illness: Pt seen and examined at bedside. He is awake but confused. He does not remember pulling out permacath. - Current Medication List Current Medications: Active Medications Albuterol Sulfate (Ventolin 0.083% Nebulizer Soln -) 1 amp NEB Q4H PRN PRN Reason: SHORT OF BREATH/WHEEZING Albuterol/Ipratropium (Duoneb -) 1 amp NEB RQID [facility] Last Admin: 11/25/18 16:49 Dose: Not Given Apixaban (Eliquis -) 5 mg PO BID [facility] Last Admin: 11/25/18 09:59 Dose: 5 mg Atorvastatin Calcium (Lipitor -) 20 mg PO HS [facility] Last Admin: 11/24/18 21:12 Dose: 20 mg Chlorhexidine Gluconate (Hibiclens For Decolonization -) 1 applic TP HS [facility] Last Admin: 11/24/18 21:12 Dose: 1 applic Clopidogrel Bisulfate (Plavix -) 75 mg PO DAILY [facility] Last Admin: 11/25/18 10:00 Dose: 75 mg Collagenase (Santyl -) 1 applic TP DAILY [facility]; Protocol Last Admin: 11/25/18 10:01 Dose: 1 applic Dextrose (D50w (Vial) -) 25 gm IVPUSH PRN PRN PRN Reason: HYPOGLYCEMIA Escitalopram Oxalate (Lexapro -) 10 mg PO DAILY [facility] Last Admin: 11/25/18 09:59 Dose: 10 mg Piperacillin Sod/Tazobactam (Sod 2.25 gm/ Dextrose) 50 mls @ 100 mls/hr IVPB Q8H-IV [facility]; Protocol Last Admin: 11/25/18 17:05 Dose: 100 mls/hr Insulin Aspart (Novolog Vial Sliding Scale -) 1 vial SQ ACHS [facility]; Protocol Last Admin: 11/25/18 17:55 Dose: Not Given Midodrine (Proamatine -) 10 mg PO MoWeFr@0800 [facility] Last Admin: 11/23/18 15:15 Dose: Not Given Multi-Ingredient Ointment (Zinc Oxide 20% Topical Oint) 1 gm TP BID [facility] Last Admin: 11/25/18 10:01 Dose: 1 gm Mupirocin (Bactroban Ointment (For Decolonization) -) 1 applic NS BID [facility] Stop: 11/27/18 09:59 Last Admin: 11/25/18 10:00 Dose: 1 applic Pantoprazole Sodium (Protonix Iv) 40 mg IVPUSH DAILY [facility] Last Admin: 11/25/18 10:00 Dose: 40 mg Sevelamer Carbonate (Renvela -) 1,600 mg PO TIDCM [facility] Last Admin: 11/25/18 17:07 Dose: Not Given Tamsulosin HCl (Flomax -) 0.4 mg PO [facility] Last Admin: 11/24/18 21:11 Dose: 0.4 mg - Objective Vital Signs: Vital Signs Temperature 99.0 F 11/25/18 17:52 Pulse Rate 72 11/25/18 17:52 Respiratory Rate 21 H 11/25/18 17:52 Blood Pressure 142/65 11/25/18 17:52 O2 Sat by Pulse Oximetry (%) 98 11/25/18 15:00 Constitutional: Yes: Calm Eyes: Yes: Conjunctiva Clear HENT: Yes: Atraumatic Neck: Yes: Supple Cardiovascular: Yes: S1, S2 Respiratory: Yes: CTA Bilaterally Gastrointestinal: Yes: Soft Genitourinary: Yes: Incontinence Musculoskeletal: Yes: Muscle Weakness Edema: No Wound/Incision: Yes: Dressing Dry and Intact Neurological: Yes: Confusion Labs: CBC, BMP 11/25/18 05:30 11/25/18 05:30 INR, PTT INR 1.32 (0.83-1.09) H 11/21/18 21:03 Problem List - Problems (1) ESRD (end stage renal disease) Code(s): N18.6 - END STAGE RENAL DISEASE (2) Anemia Code(s): D64.9 - ANEMIA, UNSPECIFIED Assessment/Plan Current Medications Generic Name Dose Route Start Last Admin Trade Name Freq PRN Reason Stop Dose Admin Albuterol Sulfate 1 amp 11/24/18 10:16 Ventolin 0.083% Nebulizer Soln - NEB Q4H PRN SHORT OF BREATH/WHEEZING Albuterol/Ipratropium 1 amp 11/24/18 12:00 11/25/18 16:49 Duoneb - NEB Not Given RQID [facility] Apixaban 5 mg 11/22/18 10:00 11/25/18 09:59 Eliquis - PO 5 mg BID [facility] Administration Atorvastatin Calcium 20 mg 11/22/18 22:00 11/24/18 21:12 Lipitor - PO 20 mg HS [facility] Administration Chlorhexidine Gluconate 1 applic 11/22/18 22:00 11/24/18 21:12 Hibiclens For Decolonization - TP 1 applic HS [facility] Administration Clopidogrel Bisulfate 75 mg 11/22/18 10:00 11/25/18 10:00 Plavix - PO 75 mg DAILY [facility] Administration Collagenase 1 applic 11/22/18 10:00 11/25/18 10:01 Santyl - TP 1 applic DAILY [facility] Administration Protocol Dextrose 25 gm 11/23/18 18:34 D50w (Vial) - IVPUSH PRN PRN HYPOGLYCEMIA Escitalopram Oxalate 10 mg 11/22/18 10:00 11/25/18 09:59 Lexapro - PO 10 mg DAILY [facility] Administration Piperacillin Sod/Tazobactam 50 mls @ 100 mls/hr 11/22/18 11:15 11/25/18 17:05 Sod 2.25 gm/ Dextrose IVPB 100 mls/hr Q8H-IV [facility] Administration Protocol Insulin Aspart 1 vial 11/22/18 07:00 11/25/18 17:55 Novolog Vial Sliding Scale - SQ Not Given ACHS [facility] Protocol Midodrine 10 mg 11/23/18 08:00 11/23/18 15:15 Proamatine - PO Not Given MoWeFr@0800 [facility] Multi-Ingredient Ointment 1 gm 11/22/18 10:00 11/25/18 10:01 Zinc Oxide 20% Topical Oint TP 1 gm BID [facility] Administration Mupirocin 1 applic 11/22/18 10:00 11/25/18 10:00 Bactroban Ointment (For Decolonization) - NS 11/27/18 09:59 1 applic BID [facility] Administration Pantoprazole Sodium 40 mg 11/22/18 10:00 11/25/18 10:00 Protonix Iv IVPUSH 40 mg DAILY [facility] Administration Sevelamer Carbonate 1,600 mg 11/22/18 08:00 11/25/18 17:07 Renvela - PO Not Given TIDCM [facility] Tamsulosin HCl 0.4 mg 11/22/18 22:00 11/24/18 21:11 Flomax - PO 0.4 mg HS [facility] Administration Impression 1. ESRD 2. acute rep failure 3. DM 4. hyperlipidemia 5. HTN 6. gout 7. proteinuria 8. hypotension/shock 9. sepsis Plan - HD tomorrow - bp is improved - monitor pulse ox - monitor hg - epogen for anemia - will follow
[2018-11-25] MEDS: CHLORHEXIDINE GLUCONATE 4% CLEANSER FOR DECOLONIZATION TP SCH (22:43)
[2018-11-25] MEDS: ATORVASTATIN CA 20 MG TABLET (FP) PO SCH (22:43)
[2018-11-25] MEDS: TAMSULOSIN HCL 0.4 MG CAP PO SCH (22:43)
[2018-11-26] MEDS ORDERED: PIPERACILLIN/TAZOBACTAM 2.25 GM VIAL IVPB ONE ×3 (01:26→18:09)
[2018-11-26] MEDS ORDERED: DEXTROSE 5%-WATER - 50 ML IVPB ONE ×3 (01:26→18:09)
[2018-11-26] MEDS: PIPERACILLIN/TAZOB 2.25 GM 2.25 GM in DEXTROSE 5%-WATER - 50 ML IVPB SCH ×3 (01:30→18:11)
[2018-11-26] MEDS: INSULIN SLIDING SCALE (NOVOLOG) 1 VIAL SQ SCH ×4 (06:14→23:00)
[2018-11-26] MEDS ORDERED: EPOETIN ALFA 10,000 UNIT/1 ML VIAL IVPUSH ONE (07:30)
[2018-11-26] MEDS ORDERED: SODIUM CHLORIDE 250 ML IV PRN (07:30)
[2018-11-26 07:33] LABS: ANION GAP 9 MMOL/L (8-16); BLOOD UREA NITROGEN 24 mg/dL (7-18); CALCIUM 7.9 mg/dL (8.5-10.1); CHLORIDE 106 mmol/L (98-107); CO2 29 mmol/L (21-32); CREATININE 5.4 mg/dL (0.55-1.3); GLUCOSE,RANDOM 77 mg/dL (74-106); POTASSIUM 3.3 mmol/L (3.5-5.1); SODIUM 144 mmol/L (136-145)
[2018-11-26] MEDS: ALBUTEROL SO4 2.5/IPRATROPIUM 0.5 INH SOL 3 ML VIAL.NEB. NEB SCH ×4 (07:36→21:00)
[2018-11-26] MEDS ORDERED: PT OWN MED DRAWER 7, Y5N ONE (08:10)
--- NOTE | 2018-11-26 08:10 | PN ---
Physical Exam: SUBJECTIVE: Patient seen and examined Patient seen and examined today. Receiving dialysis today in the AM. No symptomatic complaints. No overnight events. Likely to be transferred to the floors today OBJECTIVE: Vital Signs Period Temp Pulse Resp BP Sys/Zamorano Pulse Ox Last 24 Hr 97.8 F-99.1 F 72-84 20-23 116-154/55-84 98-98 GENERAL: The patient is awake, alert, in no acute distress. Alert and oriented to self and place only. HEAD: Normal with no signs of trauma. EYES: PERRL, extraocular movements intact, sclera anicteric, conjunctiva clear. No ptosis. ENT: Ears normal, nares patent, oropharynx clear without exudates, moist mucous membranes. NECK: Trachea midline, full range of motion, supple. LUNGS: Breath sounds equal, clear to auscultation bilaterally, no wheezes, no crackles, no accessory muscle use. HEART: Regular rate and rhythm, S1, S2 without murmur, rub or gallop. ABDOMEN: Soft, nontender, nondistended, normoactive bowel sounds, no guarding, no rebound, no hepatosplenomegaly, no masses. EXTREMITIES: 2+ pulses, warm, with right foot edema and masication of skin improved from initial intake NEUROLOGICAL: Cranial nerves II through XII grossly intact. Normal speech, gait not observed. PSYCH: Normal mood, normal affect. SKIN: Warm, dry, normal turgor, no rashes or lesions noted Laboratory Results - last 24 hr 11/25/18 11/25/18 11/25/18 12:34 17:50 23:29 Sodium Potassium Chloride Carbon Dioxide Anion Gap BUN Creatinine Creat Clearance w eGFR POC Glucometer 168 100 111 Random Glucose Calcium 11/26/18 11/26/18 06:13 06:45 Sodium 144 Potassium 3.3 L Chloride 106 Carbon Dioxide 29 Anion Gap 9 BUN 24 H Creatinine 5.4 H Creat Clearance w eGFR 10.43 POC Glucometer 83 Random Glucose 77 Calcium 7.9 L Active Medications Generic Name Dose Route Start Last Admin Trade Name Freq PRN Reason Stop Dose Admin Albuterol Sulfate 1 amp 11/24/18 10:16 Ventolin 0.083% Nebulizer Soln - NEB Q4H PRN SHORT OF BREATH/WHEEZING Albuterol/Ipratropium 1 amp 11/24/18 12:00 11/26/18 07:36 Duoneb - NEB 1 amp RQID [facility] Administration Apixaban 5 mg 11/22/18 10:00 11/25/18 22:43 Eliquis - PO 5 mg BID [facility] Administration Atorvastatin Calcium 20 mg 11/22/18 22:00 11/25/18 22:43 Lipitor - PO 20 mg HS [facility] Administration Chlorhexidine Gluconate 1 applic 11/22/18 22:00 11/25/18 22:43 Hibiclens For Decolonization - TP 1 applic HS [facility] Administration Clopidogrel Bisulfate 75 mg 11/22/18 10:00 11/25/18 10:00 Plavix - PO 75 mg DAILY [facility] Administration Collagenase 1 applic 11/22/18 10:00 11/25/18 10:01 Santyl - TP 1 applic DAILY [facility] Administration Protocol Dextrose 25 gm 11/23/18 18:34 D50w (Vial) - IVPUSH PRN PRN HYPOGLYCEMIA Escitalopram Oxalate 10 mg 11/22/18 10:00 11/25/18 09:59 Lexapro - PO 10 mg DAILY [facility] Administration Piperacillin Sod/Tazobactam 50 mls @ 100 mls/hr 11/22/18 11:15 11/26/18 01:30 Sod 2.25 gm/ Dextrose IVPB 100 mls/hr Q8H-IV [facility] Administration Protocol Insulin Aspart 1 vial 11/22/18 07:00 11/26/18 06:14 Novolog Vial Sliding Scale - SQ Not Given ACHS [facility] Protocol Midodrine 10 mg 11/23/18 08:00 11/23/18 15:15 Proamatine - PO Not Given MoWeFr@0800 [facility] Multi-Ingredient Ointment 1 gm 11/22/18 10:00 11/25/18 22:44 Zinc Oxide 20% Topical Oint TP 1 gm BID [facility] Administration Mupirocin 1 applic 11/22/18 10:00 11/25/18 22:43 Bactroban Ointment (For Decolonization) - NS 11/27/18 09:59 1 applic BID [facility] Administration Pantoprazole Sodium 40 mg 11/22/18 10:00 11/25/18 10:00 Protonix Iv IVPUSH 40 mg DAILY [facility] Administration Sevelamer Carbonate 1,600 mg 11/22/18 08:00 11/25/18 17:07 Renvela - PO Not Given TIDCM [facility] Tamsulosin HCl 0.4 mg 11/22/18 22:00 11/25/18 22:43 Flomax - PO 0.4 mg HS [facility] Administration ASSESSMENT/PLAN: 73 yo M resident of [facility] with a significant PMHx of ESRD on dialysis (MWF) ,DM, HTN, HLD, prior CVA, and COPD who presents to the emergency department, via EMS after pulling out his dialysis catheter found to be unresponsive and hypotensive. Intubated in ER and admitted to ICU for further management. Neuro: Patient was unresponsive and subsequently intubated in the emergency department. CT head was negative for acute pathology. -Neuro checks to assess for mental status changes -off sedation -successfully extubated after successful spontaneous breathing trial. -mentating well and conversive Pulmonology: extubated on NC BD treatment PRN Maintain SpO2 >90% CV: Patient was hypotensive likely secondary to HD vs possible sepsis (pulmonary infiltrate seen on cxr). Patient received 3 L IVF in the ED and initially started on levophed now off. Continue midodrine Continue eliquis for afib ([id number] is 5) Continue statin for HLD Echo 10/31/18 showed moderate MR/TR with normal LV/RV size and function. Pending cardiology consultation -Continue to bus monitor ID: Possible sepsis due to infiltrate seen, cultures negative Blood and urine cultures sent, no growth seen Patient started on vancomycin and zosyn. A random vancomycin ordered. Currently on zosyn ID consulted and appreciate their recommendations Endo: BGM q6hrs ISS q6hrs Renal: Receiving dialysis today, will hold replenishing potassium due to dialysis Nephrology consulted Trialysis placed in RIJ 11/22/2018 (refer to procedure note). FEN: advanced diet monitor electrolytes and replete as necessary D5 at 20 mL/hr LTD: ET tube placed 11/21/18. Removed 11/23/2018 IO placed 11/21/18. Removed 11/22/18 Trialysis placed 11/22/18 Dispo: To be transferred today Visit type - Emergency Visit Emergency Visit: Yes ED Registration Date: 11/21/18 Care time: The patient presented to the Emergency Department on the above date and was hospitalized for further evaluation of their emergent condition. - New Patient This patient is new to me today: No - Critical Care Critical Care patient: Yes Total Critical Care Time (in minutes): 36 Critical Care Statement: The care of this patient involved high complexity decision making to prevent further life threatening deterioration of the patient 's condition and/or to evaluate & treat vital organ system(s) failure or risk of failure. - Discharge Referral Referred to [facility] Med P.C.: No
[2018-11-26] MEDS: MIDODRINE HCL 5 MG TABLET PO SCH (08:27)
[2018-11-26] MEDS: SEVELAMER CARBONATE 800 MG TAB (FP) PO SCH ×3 (08:28→18:08)
[2018-11-26] MEDS: PANTOPRAZOLE SODIUM 40 MG VIAL IVPUSH SCH (09:13)
[2018-11-26] MEDS: CLOPIDOGREL BISULFATE 75 MG TABLET (FP) PO SCH (09:13)
[2018-11-26] MEDS: ESCITALOPRAM OXALATE 10 MG TABLET (FP) PO SCH (09:14)
[2018-11-26] MEDS: APIXABAN 5 MG TABLET PO SCH ×2 (09:14→22:17)
[2018-11-26 09:15] LABS: HEMOGLOBIN 8.8 GM/dL (11.7-16.9); MCH 30.1 pg (25.7-33.7); MCHC 32.6 g/dl (32.0-35.9); MEAN CELL VOLUME 92.4 fl (80-96); MEAN PLT VOLUME 8.7 fl (7.5-11.1); PLATELET COUNT 330 K/MM3 (134-434); RBC 2.92 M/mm3 (4.00-5.60); RDW 16.3 % (11.9-15.9); WHITE BLOOD COUNT 9.9 K/mm3 (4.0-10.0)
[2018-11-26] MEDS: MUPIROCIN 2% TOPICAL OINTMENT FOR DECOLONIZATION NS SCH ×2 (10:06→22:17)
[2018-11-26] MEDS: COLLAGENASE CLOSTRIDIUM HIST. 30 GRAMS TUBE TP SCH (10:06)
[2018-11-26] MEDS: ZINC OXIDE 20% TOPICAL OINTMENT 454 GM JAR TP SCH ×2 (10:07→23:00)
--- NOTE | 2018-11-26 11:29 | PN ---
Progress Note, Physician Chief Complaint: seen in icu s/p extubation MRSA bacteremia - Current Medication List Current Medications: Active Medications Albuterol Sulfate (Ventolin 0.083% Nebulizer Soln -) 1 amp NEB Q4H PRN PRN Reason: SHORT OF BREATH/WHEEZING Albuterol/Ipratropium (Duoneb -) 1 amp NEB RQID [facility] Last Admin: 11/26/18 07:36 Dose: 1 amp Apixaban (Eliquis -) 5 mg PO BID [facility] Last Admin: 11/26/18 09:14 Dose: 5 mg Atorvastatin Calcium (Lipitor -) 20 mg PO HS [facility] Last Admin: 11/25/18 22:43 Dose: 20 mg Chlorhexidine Gluconate (Hibiclens For Decolonization -) 1 applic TP HS [facility] Last Admin: 11/25/18 22:43 Dose: 1 applic Clopidogrel Bisulfate (Plavix -) 75 mg PO DAILY [facility] Last Admin: 11/26/18 09:13 Dose: 75 mg Collagenase (Santyl -) 1 applic TP DAILY [facility]; Protocol Last Admin: 11/26/18 10:06 Dose: 1 applic Dextrose (D50w (Vial) -) 25 gm IVPUSH PRN PRN PRN Reason: HYPOGLYCEMIA Escitalopram Oxalate (Lexapro -) 10 mg PO DAILY [facility] Last Admin: 11/26/18 09:14 Dose: 10 mg Piperacillin Sod/Tazobactam (Sod 2.25 gm/ Dextrose) 50 mls @ 100 mls/hr IVPB Q8H-IV [facility]; Protocol Last Admin: 11/26/18 09:13 Dose: 100 mls/hr Insulin Aspart (Novolog Vial Sliding Scale -) 1 vial SQ ACHS [facility]; Protocol Last Admin: 11/26/18 06:14 Dose: Not Given Midodrine (Proamatine -) 10 mg PO MoWeFr@0800 [facility] Last Admin: 11/26/18 08:27 Dose: 10 mg Multi-Ingredient Ointment (Zinc Oxide 20% Topical Oint) 1 gm TP BID [facility] Last Admin: 11/26/18 10:07 Dose: 1 gm Mupirocin (Bactroban Ointment (For Decolonization) -) 1 applic NS BID [facility] Stop: 11/27/18 09:59 Last Admin: 11/26/18 10:06 Dose: 1 applic Pantoprazole Sodium (Protonix Iv) 40 mg IVPUSH DAILY [facility] Last Admin: 11/26/18 09:13 Dose: 40 mg Sevelamer Carbonate (Renvela -) 1,600 mg PO TIDCM [facility] Last Admin: 11/26/18 08:28 Dose: 1,600 mg Tamsulosin HCl (Flomax -) 0.4 mg PO HS [facility] Last Admin: 11/25/18 22:43 Dose: 0.4 mg - Objective Vital Signs: Vital Signs Temperature 98.9 F 11/26/18 06:50 Pulse Rate 89 11/26/18 10:22 Respiratory Rate 18 11/26/18 10:22 Blood Pressure 139/69 11/26/18 10:22 O2 Sat by Pulse Oximetry (%) 98 11/26/18 09:37 Constitutional: Yes: Calm Cardiovascular: Yes: Regular Rate and Rhythm, S1, S2 Respiratory: Yes: Diminished Gastrointestinal: Yes: Normal Bowel Sounds, Soft Integumentary: Yes: Other (RIJ trialysis cath) Wound/Incision: Yes: Other (coverred with dressing) Neurological: Yes: Alert Labs: CBC, BMP 11/26/18 06:45 11/26/18 06:45 INR, PTT INR 1.32 (0.83-1.09) H 11/21/18 21:03 Problem List - Problems (1) Acute hypoxemic respiratory failure Assessment/Plan: resolved s/p extubation iv zosyn Code(s): J96.01 - ACUTE RESPIRATORY FAILURE WITH HYPOXIA (2) ESRD (end stage renal disease) Assessment/Plan: HD today midodrine on HD days epogen with HD Code(s): N18.6 - END STAGE RENAL DISEASE (3) A-fib Assessment/Plan: eliquis Code(s): I48.91 - UNSPECIFIED ATRIAL FIBRILLATION (4) Elevated troponin Assessment/Plan: echo-LV systolic function is mornal ejection fraction is 50-55% secondary to hypotension- now inproved BP cardiology consult appreciated Code(s): R74.8 - ABNORMAL LEVELS OF OTHER SERUM ENZYMES (5) MRSA (methicillin resistant staph aureus) culture positive Assessment/Plan: MRSA bacteremia on vancomycin Code(s): Z22.322 - CARRIER OR SUSPECTED CARRIER OF METHICILLIN RESIS STAPH (6) Hypotension Assessment/Plan: off pressor BP improved Code(s): I95.9 - HYPOTENSION, UNSPECIFIED (7) Anemia in chronic illness Assessment/Plan: epogen with HD Code(s): D63.8 - ANEMIA IN OTHER CHRONIC DISEASES CLASSIFIED ELSEWHERE (8) Wound, open, foot Assessment/Plan: collagensae Code(s): S91.309A - UNSPECIFIED OPEN WOUND, UNSPECIFIED FOOT, INITIAL ENCOUNTER Qualifiers: Laterality: right
--- NOTE | 2018-11-26 12:02 | PN ---
Teaching Attending Note Name of Resident: Alessandro Bennett ATTENDING PHYSICIAN STATEMENT I saw and evaluated the patient. I reviewed the resident's note and discussed the case with the resident. I agree with the resident's findings and plan as documented. SUBJECTIVE: Pt seen and examined in the ICU. Denies shortness of breath or chest pain. Dialyzed this AM. OBJECTIVE: Vital Signs Period Temp Pulse Resp BP Sys/Zamorano Pulse Ox Last 24 Hr 98.3 F-99.1 F 72-104 18-25 105-170/55-84 98-98 Intake & Output 11/23/18 11/24/18 11/25/18 11/26/18 23:59 23:59 23:59 23:59 Intake Total 1128 100 533 130 Output Total 165 150 Balance 963 -50 533 130 Weight 80.739 kg 80.83 kg 79.696 kg 80.195 kg Gen: NAD at rest Heart: RRR Lung: decreased breath sounds at the bases Abd: soft, nontender Ext: no edema CBC, BMP 11/26/18 06:45 11/26/18 06:45 Active Medications Albuterol Sulfate (Ventolin 0.083% Nebulizer Soln -) 1 amp NEB Q4H PRN PRN Reason: SHORT OF BREATH/WHEEZING Albuterol/Ipratropium (Duoneb -) 1 amp NEB RQID [facility] Last Admin: 11/26/18 11:15 Dose: 1 amp Apixaban (Eliquis -) 5 mg PO BID [facility] Last Admin: 11/26/18 09:14 Dose: 5 mg Atorvastatin Calcium (Lipitor -) 20 mg PO [facility] Last Admin: 11/25/18 22:43 Dose: 20 mg Chlorhexidine Gluconate (Hibiclens For Decolonization -) 1 applic TP HS [facility] Last Admin: 11/25/18 22:43 Dose: 1 applic Clopidogrel Bisulfate (Plavix -) 75 mg PO DAILY [facility] Last Admin: 11/26/18 09:13 Dose: 75 mg Collagenase (Santyl -) 1 applic TP DAILY [facility]; Protocol Last Admin: 11/26/18 10:06 Dose: 1 applic Dextrose (D50w (Vial) -) 25 gm IVPUSH PRN PRN PRN Reason: HYPOGLYCEMIA Escitalopram Oxalate (Lexapro -) 10 mg PO DAILY [facility] Last Admin: 03/04/19 09:14 Dose: 10 mg Piperacillin Sod/Tazobactam (Sod 2.25 gm/ Dextrose) 50 mls @ 100 mls/hr IVPB Q8H-IV [facility]; Protocol Last Admin: 11/26/18 09:13 Dose: 100 mls/hr Insulin Aspart (Novolog Vial Sliding Scale -) 1 vial SQ ACHS [facility]; Protocol Last Admin: 11/26/18 11:45 Dose: Not Given Midodrine (Proamatine -) 10 mg PO MoWeFr@0800 [facility] Last Admin: 11/26/18 08:27 Dose: 10 mg Multi-Ingredient Ointment (Zinc Oxide 20% Topical Oint) 1 gm TP BID [facility] Last Admin: 11/26/18 10:07 Dose: 1 gm Mupirocin (Bactroban Ointment (For Decolonization) -) 1 applic NS BID [facility] Stop: 11/27/18 09:59 Last Admin: 11/26/18 10:06 Dose: 1 applic Pantoprazole Sodium (Protonix Iv) 40 mg IVPUSH DAILY [facility] Last Admin: 11/26/18 09:13 Dose: 40 mg Sevelamer Carbonate (Renvela -) 1,600 mg PO TIDCM [facility] Last Admin: 11/26/18 11:46 Dose: 1,600 mg Tamsulosin HCl (Flomax -) 0.4 mg PO HS [facility] Last Admin: 11/25/18 22:43 Dose: 0.4 mg ASSESSMENT AND PLAN: s/p Acute Respiratory Failure Resolved RUL Atelectasis Pneumonia ESRD on HD Atrial Fibrillation DM HTN HLD h/o CVA COPD - continue antibiotics - HD per renal - rate control - continue anticoagulation - O2 to keep Spo2 >90% - PO as tolerated - aspiration precautions - vascular f/u for permacath placement - can monitor on floor
--- NOTE | 2018-11-26 14:43 | PN ---
Progress Note, Physician History of Present Illness: Pt seen and examined at bedside. He tolerated HD today. He denies shortness of breath. He is still confused. - Current Medication List Current Medications: Active Medications Albuterol Sulfate (Ventolin 0.083% Nebulizer Soln -) 1 amp NEB Q4H PRN PRN Reason: SHORT OF BREATH/WHEEZING Albuterol/Ipratropium (Duoneb -) 1 amp NEB RQID [facility] Last Admin: 11/26/18 11:15 Dose: 1 amp Apixaban (Eliquis -) 5 mg PO BID [facility] Last Admin: 11/26/18 09:14 Dose: 5 mg Atorvastatin Calcium (Lipitor -) 20 mg PO HS [facility] Last Admin: 11/25/18 22:43 Dose: 20 mg Chlorhexidine Gluconate (Hibiclens For Decolonization -) 1 applic TP HS [facility] Last Admin: 11/25/18 22:43 Dose: 1 applic Clopidogrel Bisulfate (Plavix -) 75 mg PO DAILY [facility] Last Admin: 11/26/18 09:13 Dose: 75 mg Collagenase (Santyl -) 1 applic TP DAILY [facility]; Protocol Last Admin: 11/26/18 10:06 Dose: 1 applic Dextrose (D50w (Vial) -) 25 gm IVPUSH PRN PRN PRN Reason: HYPOGLYCEMIA Escitalopram Oxalate (Lexapro -) 10 mg PO DAILY [facility] Last Admin: 11/26/18 09:14 Dose: 10 mg Piperacillin Sod/Tazobactam (Sod 2.25 gm/ Dextrose) 50 mls @ 100 mls/hr IVPB Q8H-IV [facility]; Protocol Last Admin: 11/26/18 09:13 Dose: 100 mls/hr Insulin Aspart (Novolog Vial Sliding Scale -) 1 vial SQ ACHS [facility]; Protocol Last Admin: 11/26/18 11:45 Dose: Not Given Midodrine (Proamatine -) 10 mg PO MoWeFr@0800 [facility] Last Admin: 11/26/18 08:27 Dose: 10 mg Multi-Ingredient Ointment (Zinc Oxide 20% Topical Oint) 1 gm TP BID [facility] Last Admin: 11/26/18 10:07 Dose: 1 gm Mupirocin (Bactroban Ointment (For Decolonization) -) 1 applic NS BID [facility] Stop: 11/27/18 09:59 Last Admin: 11/26/18 10:06 Dose: 1 applic Pantoprazole Sodium (Protonix Iv) 40 mg IVPUSH DAILY [facility] Last Admin: 11/26/18 09:13 Dose: 40 mg Sevelamer Carbonate (Renvela -) 1,600 mg PO TIDCM [facility] Last Admin: 11/26/18 11:46 Dose: 1,600 mg Tamsulosin HCl (Flomax -) 0.4 mg PO HS [facility] Last Admin: 11/25/18 22:43 Dose: 0.4 mg - Objective Vital Signs: Vital Signs Temperature 98.5 F 11/26/18 10:00 Pulse Rate 89 11/26/18 10:22 Respiratory Rate 18 11/26/18 10:22 Blood Pressure 139/69 11/26/18 10:22 O2 Sat by Pulse Oximetry (%) 98 11/26/18 09:37 Constitutional: Yes: Calm Eyes: Yes: Conjunctiva Clear HENT: Yes: Atraumatic Neck: Yes: Supple Cardiovascular: Yes: S1, S2 Respiratory: Yes: CTA Bilaterally Gastrointestinal: Yes: Soft Genitourinary: Yes: Incontinence Musculoskeletal: Yes: Muscle Weakness Edema: No Neurological: Yes: Confusion Psychiatric: Yes: Oriented Labs: CBC, BMP 11/26/18 06:45 11/26/18 06:45 INR, PTT INR 1.32 (0.83-1.09) H 11/21/18 21:03 Problem List - Problems (1) ESRD (end stage renal disease) Code(s): N18.6 - END STAGE RENAL DISEASE (2) Anemia Code(s): D64.9 - ANEMIA, UNSPECIFIED Assessment/Plan Current Medications Generic Name Dose Route Start Last Admin Trade Name Freq PRN Reason Stop Dose Admin Albuterol Sulfate 1 amp 11/24/18 10:16 Ventolin 0.083% Nebulizer Soln - NEB Q4H PRN SHORT OF BREATH/WHEEZING Albuterol/Ipratropium 1 amp 11/24/18 12:00 11/26/18 11:15 Duoneb - NEB 1 amp RQID [facility] Administration Apixaban 5 mg 11/22/18 10:00 11/26/18 09:14 Eliquis - PO 5 mg BID [facility] Administration Atorvastatin Calcium 20 mg 11/22/18 22:00 11/25/18 22:43 Lipitor - PO 20 mg HS [facility] Administration Chlorhexidine Gluconate 1 applic 11/22/18 22:00 11/25/18 22:43 Hibiclens For Decolonization - TP 1 applic HS [facility] Administration Clopidogrel Bisulfate 75 mg 11/22/18 10:00 11/26/18 09:13 Plavix - PO 75 mg DAILY [facility] Administration Collagenase 1 applic 11/22/18 10:00 11/26/18 10:06 Santyl - TP 1 applic DAILY [facility] Administration Protocol Dextrose 25 gm 11/23/18 18:34 D50w (Vial) - IVPUSH PRN PRN HYPOGLYCEMIA Escitalopram Oxalate 10 mg 11/22/18 10:00 11/26/18 09:14 Lexapro - PO 10 mg DAILY [facility] Administration Piperacillin Sod/Tazobactam 50 mls @ 100 mls/hr 11/22/18 11:15 11/26/18 09:13 Sod 2.25 gm/ Dextrose IVPB 100 mls/hr Q8H-IV [facility] Administration Protocol Insulin Aspart 1 vial 11/22/18 07:00 11/26/18 11:45 Novolog Vial Sliding Scale - SQ Not Given ACHS [facility] Protocol Midodrine 10 mg 11/23/18 08:00 11/26/18 08:27 Proamatine - PO 10 mg MoWeFr@0800 [facility] Administration Multi-Ingredient Ointment 1 gm 11/22/18 10:00 11/26/18 10:07 Zinc Oxide 20% Topical Oint TP 1 gm BID [facility] Administration Mupirocin 1 applic 11/22/18 10:00 11/26/18 10:06 Bactroban Ointment (For Decolonization) - NS 11/27/18 09:59 1 applic BID [facility] Administration Pantoprazole Sodium 40 mg 11/22/18 10:00 11/26/18 09:13 Protonix Iv IVPUSH 40 mg DAILY [facility] Administration Sevelamer Carbonate 1,600 mg 11/22/18 08:00 11/26/18 11:46 Renvela - PO 1,600 mg TIDCM [facility] Administration Tamsulosin HCl 0.4 mg 11/22/18 22:00 11/25/18 22:43 Flomax - PO 0.4 mg HS [facility] Administration Impression 1. ESRD 2. acute rep failure 3. DM 4. hyperlipidemia 5. HTN 6. gout 7. proteinuria 8. hypotension/shock 9. sepsis Plan - pt tolerated HD today - he remains confused - call vascular for access - blood cultures negative - monitor hg - epogen for anemia - bp stable on HD - will follow
--- NOTE | 2018-11-26 16:27 | SPA.PREOP ---
- PRE-OP NOTE Dx: ESRD Planned Procedure: Permacath placement for HD Surgeon: Tarun Last Vital Signs Temp Pulse Resp BP Pulse Ox 98.5 F 89 18 139/69 98 11/26/18 10:00 11/26/18 10:22 11/26/18 10:22 11/26/18 10:22 11/26/18 09:37 Lab Results WBC 9.9 K/mm3 (4.0-10.0) 11/26/18 06:45 RBC 2.92 M/mm3 (4.00-5.60) L 11/26/18 06:45 Hgb 8.8 GM/dL (11.7-16.9) L 11/26/18 06:45 Hct 27.0 % (35.4-49) L 11/26/18 06:45 MCV 92.4 fl (80-96) 11/26/18 06:45 MCHC 32.6 g/dl (32.0-35.9) 11/26/18 06:45 RDW 16.3 % (11.9-15.9) H 11/26/18 06:45 Plt Count 330 K/MM3 (134-434) 11/26/18 06:45 Sodium 144 mmol/L (136-145) 11/26/18 06:45 Potassium 3.3 mmol/L (3.5-5.1) L 11/26/18 06:45 Chloride 106 mmol/L (98-107) 11/26/18 06:45 Carbon Dioxide 29 mmol/L (21-32) 11/26/18 06:45 Anion Gap 9 MMOL/L (8-16) 11/26/18 06:45 BUN 24 mg/dL (7-18) H 11/26/18 06:45 Creatinine 5.4 mg/dL (0.55-1.3) H 11/26/18 06:45 Random Glucose 77 mg/dL (74-106) 11/26/18 06:45 Calcium 7.9 mg/dL (8.5-10.1) L 11/26/18 06:45 Blood Type A POSITIVE 11/22/18 00:40 Antibody Screen Positive H 11/22/18 00:40 INR 1.32 (0.83-1.09) H 11/21/18 21:03 blood cultures negative - ASSESSMENT/PLAN Problem List - Problems (1) ESRD (end stage renal disease) Assessment/Plan: 1. Make NPO after midnight except po meds 2. GI/DVT PPX 3. Medical optimization / clearance 4. Consent to be obtained by surgeon after risks, benefits and alternatives discussed with patient and or Health Care Proxy. Code(s): N18.6 - END STAGE RENAL DISEASE
--- NOTE | 2018-11-26 17:13 | PN ---
Progress Note, Physician History of Present Illness: AWAKE EXTUBATED AFEBRILE WBC WNL BC(11/22) NO GROWTH - Current Medication List Current Medications: Active Medications Albuterol Sulfate (Ventolin 0.083% Nebulizer Soln -) 1 amp NEB Q4H PRN PRN Reason: SHORT OF BREATH/WHEEZING Albuterol/Ipratropium (Duoneb -) 1 amp NEB RQID [facility] Last Admin: 11/26/18 16:14 Dose: Not Given Apixaban (Eliquis -) 5 mg PO BID [facility] Last Admin: 11/26/18 09:14 Dose: 5 mg Atorvastatin Calcium (Lipitor -) 20 mg PO HS [facility] Last Admin: 11/25/18 22:43 Dose: 20 mg Chlorhexidine Gluconate (Hibiclens For Decolonization -) 1 applic TP HS [facility] Last Admin: 11/25/18 22:43 Dose: 1 applic Clopidogrel Bisulfate (Plavix -) 75 mg PO DAILY [facility] Last Admin: 11/26/18 09:13 Dose: 75 mg Collagenase (Santyl -) 1 applic TP DAILY [facility]; Protocol Last Admin: 11/26/18 10:06 Dose: 1 applic Dextrose (D50w (Vial) -) 25 gm IVPUSH PRN PRN PRN Reason: HYPOGLYCEMIA Escitalopram Oxalate (Lexapro -) 10 mg PO DAILY [facility] Last Admin: 11/26/18 09:14 Dose: 10 mg Piperacillin Sod/Tazobactam (Sod 2.25 gm/ Dextrose) 50 mls @ 100 mls/hr IVPB Q8H-IV [facility]; Protocol Last Admin: 11/26/18 09:13 Dose: 100 mls/hr Insulin Aspart (Novolog Vial Sliding Scale -) 1 vial SQ ACHS [facility]; Protocol Last Admin: 11/26/18 11:45 Dose: Not Given Midodrine (Proamatine -) 10 mg PO MoWeFr@0800 [facility] Last Admin: 11/26/18 08:27 Dose: 10 mg Multi-Ingredient Ointment (Zinc Oxide 20% Topical Oint) 1 gm TP BID [facility] Last Admin: 11/26/18 10:07 Dose: 1 gm Mupirocin (Bactroban Ointment (For Decolonization) -) 1 applic NS BID [facility] Stop: 11/27/18 09:59 Last Admin: 11/26/18 10:06 Dose: 1 applic Pantoprazole Sodium (Protonix Iv) 40 mg IVPUSH DAILY [facility] Last Admin: 11/26/18 09:13 Dose: 40 mg Sevelamer Carbonate (Renvela -) 1,600 mg PO TIDCM [facility] Last Admin: 11/26/18 11:46 Dose: 1,600 mg Tamsulosin HCl (Flomax -) 0.4 mg PO HS [facility] Last Admin: 11/25/18 22:43 Dose: 0.4 mg - Objective Vital Signs: Vital Signs Temperature 98.5 F 11/26/18 10:00 Pulse Rate 89 11/26/18 10:22 Respiratory Rate 18 11/26/18 10:22 Blood Pressure 139/69 11/26/18 10:22 O2 Sat by Pulse Oximetry (%) 98 11/26/18 09:37 Constitutional: Yes: No Distress Cardiovascular: Yes: Regular Rate and Rhythm, S1, S2 Respiratory: Yes: Diminished Gastrointestinal: Yes: Normal Bowel Sounds, Soft. No: Tenderness Edema: Yes Labs: CBC, BMP 11/26/18 06:45 11/26/18 06:45 INR, PTT INR 1.32 (0.83-1.09) H 11/21/18 21:03 Assessment/Plan S/P RESPIRATORY FAILURE R/O PNEUMONIA HX MRSA BACTEREMIA ESRD CONTINUE ZOSYN REDOSE VANCOMYCIN
[2018-11-26] MEDS ORDERED: VANCOMYCIN 1,000 MG in DEXTROSE 5%-WATER - 250 ML IVPB ONE (19:45)
[2018-11-26] MEDS: ATORVASTATIN CA 20 MG TABLET (FP) PO SCH (22:17)
[2018-11-26] MEDS: TAMSULOSIN HCL 0.4 MG CAP PO SCH (22:17)
[2018-11-26] MEDS: CHLORHEXIDINE GLUCONATE 4% CLEANSER FOR DECOLONIZATION TP SCH (22:18)
[2018-11-27] MEDS ORDERED: PIPERACILLIN/TAZOBACTAM 2.25 GM VIAL IVPB ONE ×3 (01:25→18:09)
[2018-11-27] MEDS ORDERED: DEXTROSE 5%-WATER - 50 ML IVPB ONE ×3 (01:25→18:09)
[2018-11-27] MEDS: PIPERACILLIN/TAZOB 2.25 GM 2.25 GM in DEXTROSE 5%-WATER - 50 ML IVPB SCH ×3 (01:29→18:00)
[2018-11-27 07:00] LABS: ALBUMIN 1.7 g/dl (3.4-5.0); ALK PHOS 88 U/L (45-117); ANION GAP 7 MMOL/L (8-16); BILIRUBIN,TOTAL 0.3 mg/dL (0.2-1); BLOOD UREA NITROGEN 14 mg/dL (7-18); CALCIUM 7.4 mg/dL (8.5-10.1); CHLORIDE 98 mmol/L (98-107); CO2 32 mmol/L (21-32); CREATININE 3.6 mg/dL (0.55-1.3); GLUCOSE,RANDOM 78 mg/dL (74-106); HEMATOCRIT 26.7 % (35.4-49); MCH 31.1 pg (25.7-33.7); MCHC 33.7 g/dl (32.0-35.9); MEAN CELL VOLUME 92.4 fl (80-96); MEAN PLT VOLUME 8.5 fl (7.5-11.1); PLATELET COUNT 319 K/MM3 (134-434); RBC 2.89 M/mm3 (4.00-5.60); SGOT/AST 16 U/L (15-37); SGPT/ALT 12 U/L (13-61); SODIUM 137 mmol/L (136-145); TOT PROT 5.6 g/dl (6.4-8.2); WHITE BLOOD COUNT 8.3 K/mm3 (4.0-10.0)
[2018-11-27] MEDS: ALBUTEROL SO4 2.5/IPRATROPIUM 0.5 INH SOL 3 ML VIAL.NEB. NEB SCH ×4 (07:35→20:19)
[2018-11-27] MEDS: INSULIN SLIDING SCALE (NOVOLOG) 1 VIAL SQ SCH ×4 (07:46→22:12)
[2018-11-27] MEDS ORDERED: PT OWN MED DRAWER 7, Y5N ONE ×2 (08:07→21:02)
[2018-11-27] MEDS: SEVELAMER CARBONATE 800 MG TAB (FP) PO SCH ×3 (08:13→18:20)
[2018-11-27] MEDS: KCL 10 MEQ IVPB 10 MEQ/100 ML INFUS.BAG IVPB SCH ×3 (08:30→12:15)
[2018-11-27] MEDS: APIXABAN 5 MG TABLET PO SCH ×2 (09:06→22:12)
[2018-11-27] MEDS: CLOPIDOGREL BISULFATE 75 MG TABLET (FP) PO SCH (09:07)
[2018-11-27] MEDS: ESCITALOPRAM OXALATE 10 MG TABLET (FP) PO SCH (09:07)
[2018-11-27] MEDS: PANTOPRAZOLE SODIUM 40 MG VIAL IVPUSH SCH (09:08)
[2018-11-27] MEDS ORDERED: SODIUM CHLORIDE 250 ML IV PRN ×2 (09:26→11:38)
[2018-11-27] MEDS ORDERED: ACETAMINOPHEN 325 MG TABLET (FP) PO PRN (09:53)
--- NOTE | 2018-11-27 09:53 | PN ---
Progress Note, Physician - Current Medication List Current Medications: Active Medications Albuterol Sulfate (Ventolin 0.083% Nebulizer Soln -) 1 amp NEB Q4H PRN PRN Reason: SHORT OF BREATH/WHEEZING Albuterol/Ipratropium (Duoneb -) 1 amp NEB RQID [facility] Last Admin: 11/27/18 07:35 Dose: 1 amp Apixaban (Eliquis -) 5 mg PO BID [facility] Last Admin: 11/27/18 09:06 Dose: Not Given Atorvastatin Calcium (Lipitor -) 20 mg PO HS [facility] Last Admin: 11/26/18 22:17 Dose: 20 mg Chlorhexidine Gluconate (Hibiclens For Decolonization -) 1 applic TP HS [facility] Last Admin: 11/26/18 22:18 Dose: 1 applic Clopidogrel Bisulfate (Plavix -) 75 mg PO DAILY [facility] Last Admin: 11/27/18 09:07 Dose: Not Given Collagenase (Santyl -) 1 applic TP DAILY [facility]; Protocol Last Admin: 11/26/18 10:06 Dose: 1 applic Dextrose (D50w (Vial) -) 25 gm IVPUSH PRN PRN PRN Reason: HYPOGLYCEMIA Escitalopram Oxalate (Lexapro -) 10 mg PO DAILY [facility] Last Admin: 11/27/18 09:07 Dose: 10 mg Piperacillin Sod/Tazobactam (Sod 2.25 gm/ Dextrose) 50 mls @ 100 mls/hr IVPB Q8H-IV [facility]; Protocol Last Admin: 11/27/18 09:27 Dose: 100 mls/hr Potassium Chloride (Potassium Chloride 10 Meq Premix Ivpb -) 10 meq in 100 mls @ 100 mls/hr IVPB Q60M [facility] Stop: 11/27/18 11:14 Last Admin: 11/27/18 08:30 Dose: 100 mls/hr Insulin Aspart (Novolog Vial Sliding Scale -) 1 vial SQ ACHS [facility]; Protocol Last Admin: 11/27/18 07:46 Dose: Not Given Midodrine (Proamatine -) 10 mg PO MoWeFr@0800 [facility] Last Admin: 11/26/18 08:27 Dose: 10 mg Multi-Ingredient Ointment (Zinc Oxide 20% Topical Oint) 1 gm TP BID [facility] Last Admin: 11/26/18 23:00 Dose: 1 gm Mupirocin (Bactroban Ointment (For Decolonization) -) 1 applic NS BID [facility] Stop: 11/27/18 09:59 Last Admin: 11/26/18 22:17 Dose: 1 applic Pantoprazole Sodium (Protonix Iv) 40 mg IVPUSH DAILY [facility] Last Admin: 11/27/18 09:08 Dose: 40 mg Sevelamer Carbonate (Renvela -) 1,600 mg PO TIDCM [facility] Last Admin: 11/27/18 08:13 Dose: 1,600 mg Tamsulosin HCl (Flomax -) 0.4 mg PO HS [facility] Last Admin: 11/26/18 22:17 Dose: 0.4 mg - Objective Vital Signs: Vital Signs Temperature 98 F 11/27/18 06:00 Pulse Rate 88 11/27/18 06:00 Respiratory Rate 24 H 11/27/18 06:00 Blood Pressure 152/76 11/27/18 06:00 O2 Sat by Pulse Oximetry (%) 96 11/26/18 22:00 Cardiovascular: Yes: S1, S2 Respiratory: Yes: Regular, CTA Bilaterally Gastrointestinal: Yes: Normal Bowel Sounds, Soft Musculoskeletal: Yes: Joint Stiffness Labs: CBC, BMP 11/27/18 05:30 11/27/18 05:30 INR, PTT INR 1.32 (0.83-1.09) H 11/21/18 21:03 Assessment/Plan - Problems (1) Acute hypoxemic respiratory failure Assessment/Plan: resolved s/p extubation iv zosyn Code(s): J96.01 - ACUTE RESPIRATORY FAILURE WITH HYPOXIA (2) ESRD (end stage renal disease) Assessment/Plan: HD today midodrine on HD days epogen with HD for perma cath Code(s): N18.6 - END STAGE RENAL DISEASE (3) A-fib Assessment/Plan: eliquis Code(s): I48.91 - UNSPECIFIED ATRIAL FIBRILLATION (4) Elevated troponin Assessment/Plan: echo-LV systolic function is mornal ejection fraction is 50-55% secondary to hypotension- now inproved BP cardiology consult appreciated Code(s): R74.8 - ABNORMAL LEVELS OF OTHER SERUM ENZYMES (5) MRSA (methicillin resistant staph aureus) culture positive Assessment/Plan: MRSA bacteremia on vancomycin Code(s): Z22.322 - CARRIER OR SUSPECTED CARRIER OF METHICILLIN RESIS STAPH (6) Hypotension Assessment/Plan: off pressor BP improved Code(s): I95.9 - HYPOTENSION, UNSPECIFIED (7) Anemia in chronic illness Assessment/Plan: epogen with HD Code(s): D63.8 - ANEMIA IN OTHER CHRONIC DISEASES CLASSIFIED ELSEWHERE (8) Wound, open, foot Assessment/Plan: collagensae Code(s): S91.309A - UNSPECIFIED OPEN WOUND, UNSPECIFIED FOOT, INITIAL ENCOUNTER Qualifiers: Laterality: right
[2018-11-27] MEDS ORDERED: ACETAMINOPHEN 1000 MG/100 ML VIAL (NON FORMULARY) IVPB ONE (09:54)
[2018-11-27] MEDS: ZINC OXIDE 20% TOPICAL OINTMENT 454 GM JAR TP SCH ×2 (10:04→22:12)
[2018-11-27] MEDS: COLLAGENASE CLOSTRIDIUM HIST. 30 GRAMS TUBE TP SCH (10:05)
--- NOTE | 2018-11-27 11:29 | PN ---
Progress Note, Physician History of Present Illness: AWAKE RESPONSIVE NO COMPLAINTS AFEBRILE WBC WNL BC(11/22) NO GROWTH FOR PERMACATH PLACEMENT - Current Medication List Current Medications: Active Medications Acetaminophen (Tylenol -) 650 mg PO Q6H PRN PRN Reason: PAIN LEVEL 1-5 Albuterol Sulfate (Ventolin 0.083% Nebulizer Soln -) 1 amp NEB Q4H PRN PRN Reason: SHORT OF BREATH/WHEEZING Albuterol/Ipratropium (Duoneb -) 1 amp NEB RQID [facility] Last Admin: 11/27/18 07:35 Dose: 1 amp Apixaban (Eliquis -) 5 mg PO BID [facility] Last Admin: 11/27/18 09:06 Dose: Not Given Atorvastatin Calcium (Lipitor -) 20 mg PO HS [facility] Last Admin: 11/26/18 22:17 Dose: 20 mg Chlorhexidine Gluconate (Hibiclens For Decolonization -) 1 applic TP HS [facility] Last Admin: 11/26/18 22:18 Dose: 1 applic Clopidogrel Bisulfate (Plavix -) 75 mg PO DAILY [facility] Last Admin: 11/27/18 09:07 Dose: Not Given Collagenase (Santyl -) 1 applic TP DAILY [facility]; Protocol Last Admin: 11/27/18 10:05 Dose: 1 applic Dextrose (D50w (Vial) -) 25 gm IVPUSH PRN PRN PRN Reason: HYPOGLYCEMIA Escitalopram Oxalate (Lexapro -) 10 mg PO DAILY [facility] Last Admin: 11/27/18 09:07 Dose: 10 mg Piperacillin Sod/Tazobactam (Sod 2.25 gm/ Dextrose) 50 mls @ 100 mls/hr IVPB Q8H-IV [facility]; Protocol Last Admin: 11/27/18 09:27 Dose: 100 mls/hr Insulin Aspart (Novolog Vial Sliding Scale -) 1 vial SQ ACHS [facility]; Protocol Last Admin: 11/27/18 07:46 Dose: Not Given Midodrine (Proamatine -) 10 mg PO MoWeFr@0800 [facility] Last Admin: 11/26/18 08:27 Dose: 10 mg Multi-Ingredient Ointment (Zinc Oxide 20% Topical Oint) 1 gm TP BID [facility] Last Admin: 11/27/18 10:04 Dose: 1 gm Pantoprazole Sodium (Protonix Iv) 40 mg IVPUSH DAILY [facility] Last Admin: 11/27/18 09:08 Dose: 40 mg Sevelamer Carbonate (Renvela -) 1,600 mg PO TIDCM [facility] Last Admin: 11/27/18 08:13 Dose: 1,600 mg Tamsulosin HCl (Flomax -) 0.4 mg PO HS [facility] Last Admin: 11/26/18 22:17 Dose: 0.4 mg - Objective Vital Signs: Vital Signs Temperature 98 F 11/27/18 06:00 Pulse Rate 88 11/27/18 06:00 Respiratory Rate 24 H 11/27/18 06:00 Blood Pressure 152/76 11/27/18 06:00 O2 Sat by Pulse Oximetry (%) 96 11/26/18 22:00 Constitutional: Yes: No Distress Eyes: Yes: Conjunctiva Clear Cardiovascular: Yes: Regular Rate and Rhythm, S1, S2 Respiratory: Yes: Diminished Gastrointestinal: Yes: Normal Bowel Sounds, Soft. No: Tenderness Edema: Yes Labs: CBC, BMP 11/27/18 05:30 11/27/18 05:30 INR, PTT INR 1.32 (0.83-1.09) H 11/21/18 21:03 Assessment/Plan S/P RESPIRATORY FAILURE R/O PNEUMONIA HX MRSA BACTEREMIA ESRD CONTINUE ZOSYN CHEC VANCOMYCIN LEVEL
--- NOTE | 2018-11-27 11:37 | PN ---
Progress Note, Physician History of Present Illness: Pt seen and examined at bedside. He is awake but confused. - Current Medication List Current Medications: Active Medications Acetaminophen (Tylenol -) 650 mg PO Q6H PRN PRN Reason: PAIN LEVEL 1-5 Albuterol Sulfate (Ventolin 0.083% Nebulizer Soln -) 1 amp NEB Q4H PRN PRN Reason: SHORT OF BREATH/WHEEZING Albuterol/Ipratropium (Duoneb -) 1 amp NEB RQID [facility] Last Admin: 11/27/18 07:35 Dose: 1 amp Apixaban (Eliquis -) 5 mg PO BID [facility] Last Admin: 11/27/18 09:06 Dose: Not Given Atorvastatin Calcium (Lipitor -) 20 mg PO HS [facility] Last Admin: 11/26/18 22:17 Dose: 20 mg Chlorhexidine Gluconate (Hibiclens For Decolonization -) 1 applic TP HS [facility] Last Admin: 11/26/18 22:18 Dose: 1 applic Clopidogrel Bisulfate (Plavix -) 75 mg PO DAILY [facility] Last Admin: 11/27/18 09:07 Dose: Not Given Collagenase (Santyl -) 1 applic TP DAILY [facility]; Protocol Last Admin: 11/27/18 10:05 Dose: 1 applic Dextrose (D50w (Vial) -) 25 gm IVPUSH PRN PRN PRN Reason: HYPOGLYCEMIA Escitalopram Oxalate (Lexapro -) 10 mg PO DAILY [facility] Last Admin: 11/27/18 09:07 Dose: 10 mg Piperacillin Sod/Tazobactam (Sod 2.25 gm/ Dextrose) 50 mls @ 100 mls/hr IVPB Q8H-IV [facility]; Protocol Last Admin: 11/27/18 09:27 Dose: 100 mls/hr Insulin Aspart (Novolog Vial Sliding Scale -) 1 vial SQ ACHS [facility]; Protocol Last Admin: 11/27/18 07:46 Dose: Not Given Midodrine (Proamatine -) 10 mg PO MoWeFr@0800 [facility] Last Admin: 11/26/18 08:27 Dose: 10 mg Multi-Ingredient Ointment (Zinc Oxide 20% Topical Oint) 1 gm TP BID [facility] Last Admin: 11/27/18 10:04 Dose: 1 gm Pantoprazole Sodium (Protonix Iv) 40 mg IVPUSH DAILY [facility] Last Admin: 11/27/18 09:08 Dose: 40 mg Sevelamer Carbonate (Renvela -) 1,600 mg PO TIDCM [facility] Last Admin: 11/27/18 08:13 Dose: 1,600 mg Tamsulosin HCl (Flomax -) 0.4 mg PO HS [facility] Last Admin: 11/26/18 22:17 Dose: 0.4 mg - Objective Vital Signs: Vital Signs Temperature 98 F 11/27/18 06:00 Pulse Rate 88 11/27/18 06:00 Respiratory Rate 24 H 11/27/18 06:00 Blood Pressure 152/76 11/27/18 06:00 O2 Sat by Pulse Oximetry (%) 96 11/26/18 22:00 Constitutional: Yes: Calm Eyes: Yes: Conjunctiva Clear HENT: Yes: Atraumatic Neck: Yes: Supple Cardiovascular: Yes: S1, S2 Respiratory: Yes: CTA Bilaterally Gastrointestinal: Yes: Soft Genitourinary: Yes: Incontinence Musculoskeletal: Yes: Muscle Weakness Edema: No Wound/Incision: Yes: Dressing Dry and Intact Neurological: Yes: Confusion Labs: CBC, BMP 11/27/18 05:30 11/27/18 05:30 INR, PTT INR 1.32 (0.83-1.09) H 11/21/18 21:03 Problem List - Problems (1) ESRD (end stage renal disease) Code(s): N18.6 - END STAGE RENAL DISEASE (2) Anemia Code(s): D64.9 - ANEMIA, UNSPECIFIED Assessment/Plan Current Medications Generic Name Dose Route Start Last Admin Trade Name Freq PRN Reason Stop Dose Admin Acetaminophen 650 mg 11/27/18 09:53 Tylenol - PO Q6H PRN PAIN LEVEL 1-5 Albuterol Sulfate 1 amp 11/24/18 10:16 Ventolin 0.083% Nebulizer Soln - NEB Q4H PRN SHORT OF BREATH/WHEEZING Albuterol/Ipratropium 1 amp 11/24/18 12:00 11/27/18 07:35 Duoneb - NEB 1 amp RQID [facility] Administration Apixaban 5 mg 11/22/18 10:00 11/27/18 09:06 Eliquis - PO Not Given BID [facility] Atorvastatin Calcium 20 mg 11/22/18 22:00 11/26/18 22:17 Lipitor - PO 20 mg HS [facility] Administration Chlorhexidine Gluconate 1 applic 11/22/18 22:00 11/26/18 22:18 Hibiclens For Decolonization - TP 1 applic HS [facility] Administration Clopidogrel Bisulfate 75 mg 11/22/18 10:00 11/27/18 09:07 Plavix - PO Not Given DAILY [facility] Collagenase 1 applic 11/22/18 10:00 11/27/18 10:05 Santyl - TP 1 applic DAILY [facility] Administration Protocol Dextrose 25 gm 11/23/18 18:34 D50w (Vial) - IVPUSH PRN PRN HYPOGLYCEMIA Escitalopram Oxalate 10 mg 11/22/18 10:00 11/27/18 09:07 Lexapro - PO 10 mg DAILY [facility] Administration Piperacillin Sod/Tazobactam 50 mls @ 100 mls/hr 11/22/18 11:15 11/27/18 09:27 Sod 2.25 gm/ Dextrose IVPB 100 mls/hr Q8H-IV [facility] Administration Protocol Insulin Aspart 1 vial 11/22/18 07:00 11/27/18 07:46 Novolog Vial Sliding Scale - SQ Not Given ACHS [facility] Protocol Midodrine 10 mg 11/23/18 08:00 11/26/18 08:27 Proamatine - PO 10 mg MoWeFr@0800 [facility] Administration Multi-Ingredient Ointment 1 gm 11/22/18 10:00 11/27/18 10:04 Zinc Oxide 20% Topical Oint TP 1 gm BID [facility] Administration Pantoprazole Sodium 40 mg 11/22/18 10:00 11/27/18 09:08 Protonix Iv IVPUSH 40 mg DAILY [facility] Administration Sevelamer Carbonate 1,600 mg 11/22/18 08:00 11/27/18 08:13 Renvela - PO 1,600 mg TIDCM [facility] Administration Tamsulosin HCl 0.4 mg 11/22/18 22:00 11/26/18 22:17 Flomax - PO 0.4 mg HS [facility] Administration Impression 1. ESRD 2. acute rep failure 3. DM 4. hyperlipidemia 5. HTN 6. gout 7. proteinuria 8. hypotension/shock 9. sepsis Plan - pt going for permacath today - remove shiley - HD tomorrow - 3 k bath - epogen for anemia - will follow
--- NOTE | 2018-11-27 12:39 | PN ---
Teaching Attending Note Name of Resident: Alessandro Bennett ATTENDING PHYSICIAN STATEMENT I saw and evaluated the patient. I reviewed the resident's note and discussed the case with the resident. I agree with the resident's findings and plan as documented. SUBJECTIVE: Pt seen and examined in the ICU. No overnight events. No specific complaints. No fevers recorded. OBJECTIVE: Vital Signs Period Temp Pulse Resp BP Sys/Zamorano Pulse Ox Last 24 Hr 97.8 F-98.2 F 74-88 18-27 131-160/65-82 96-96 Intake & Output 11/24/18 11/25/18 11/26/18 11/27/18 23:59 23:59 23:59 23:59 Intake Total 100 533 780 260 Output Total 150 Balance -50 533 780 260 Weight 80.83 kg 79.696 kg 80.195 kg Gen: NAD at rest Heart: RRR Lung: decreased breath sounds at the bases Abd: soft, nontender Ext: no edema CBC, BMP 11/27/18 05:30 11/27/18 05:30 Active Medications Acetaminophen (Tylenol -) 650 mg PO Q6H PRN PRN Reason: PAIN LEVEL 1-5 Albuterol Sulfate (Ventolin 0.083% Nebulizer Soln -) 1 amp NEB Q4H PRN PRN Reason: SHORT OF BREATH/WHEEZING Albuterol/Ipratropium (Duoneb -) 1 amp NEB RQID [facility] Last Admin: 11/27/18 07:35 Dose: 1 amp Apixaban (Eliquis -) 5 mg PO BID [facility] Last Admin: 11/27/18 09:06 Dose: Not Given Atorvastatin Calcium (Lipitor -) 20 mg PO [facility] Last Admin: 11/26/18 22:17 Dose: 20 mg Chlorhexidine Gluconate (Hibiclens For Decolonization -) 1 applic TP HS [facility] Last Admin: 11/26/18 22:18 Dose: 1 applic Clopidogrel Bisulfate (Plavix -) 75 mg PO DAILY [facility] Last Admin: 11/27/18 09:07 Dose: Not Given Collagenase (Santyl -) 1 applic TP DAILY [facility]; Protocol Last Admin: 11/27/18 10:05 Dose: 1 applic Dextrose (D50w (Vial) -) 25 gm IVPUSH PRN PRN PRN Reason: HYPOGLYCEMIA Epoetin Jose (Epogen -) 10,000 unit IVPUSH ONCE ONE Stop: 11/28/18 11:39 Escitalopram Oxalate (Lexapro -) 10 mg PO DAILY [facility] Last Admin: 11/27/18 09:07 Dose: 10 mg Piperacillin Sod/Tazobactam (Sod 2.25 gm/ Dextrose) 50 mls @ 100 mls/hr IVPB Q8H-IV [facility]; Protocol Last Admin: 11/27/18 09:27 Dose: 100 mls/hr Sodium Chloride (Normal Saline -) 250 mls @ 3,000 mls/hr IV PRN PRN PRN Reason: Hypotension during Dialysis Stop: 11/28/18 11:38 Insulin Aspart (Novolog Vial Sliding Scale -) 1 vial SQ ACHS [facility]; Protocol Last Admin: 11/27/18 12:20 Dose: Not Given Midodrine (Proamatine -) 10 mg PO MoWeFr@0800 [facility] Last Admin: 11/26/18 08:27 Dose: 10 mg Multi-Ingredient Ointment (Zinc Oxide 20% Topical Oint) 1 gm TP BID [facility] Last Admin: 11/27/18 10:04 Dose: 1 gm Pantoprazole Sodium (Protonix Iv) 40 mg IVPUSH DAILY [facility] Last Admin: 11/27/18 09:08 Dose: 40 mg Sevelamer Carbonate (Renvela -) 1,600 mg PO TIDCM [facility] Last Admin: 11/27/18 08:13 Dose: 1,600 mg Tamsulosin HCl (Flomax -) 0.4 mg PO HS [facility] Last Admin: 11/26/18 22:17 Dose: 0.4 mg ASSESSMENT AND PLAN: s/p Acute Respiratory Failure Resolved RUL Atelectasis Pneumonia ESRD on HD Atrial Fibrillation DM HTN HLD h/o CVA COPD - continue antibiotics - HD per renal - rate control - continue anticoagulation - O2 to keep Spo2 >90% - PO as tolerated - aspiration precautions - for permacath placement - can monitor on floor
[2018-11-27] MEDS ORDERED: HEPARIN NA (PORCINE) 5,000 UNITS/ML 1ML VIAL ONE (15:44)
[2018-11-27] MEDS ORDERED: LIDOCAINE HCL 1%, 10 MG/ML (20ML VIAL) ONE (15:44)
--- NOTE | 2018-11-27 17:27 | PN ---
Physical Exam: SUBJECTIVE: Patient seen and examined patient seen and examined by me. patient to have permacath today. to be transferred to the floors. no symptomatic complaints today. denies fever and chills. OBJECTIVE: Vital Signs Period Temp Pulse Resp BP Sys/Zamorano Pulse Ox Last 24 Hr 97.8 F-98.2 F 74-88 18-27 136-160/65-82 95-96 GENERAL: The patient is awake, alert, in no acute distress. Alert and oriented to self and place only. HEAD: Normal with no signs of trauma. EYES: PERRL, extraocular movements intact, sclera anicteric, conjunctiva clear. No ptosis. ENT: Ears normal, nares patent, oropharynx clear without exudates, moist mucous membranes. NECK: Trachea midline, full range of motion, supple. LUNGS: Breath sounds equal, clear to auscultation bilaterally, no wheezes, no crackles, no accessory muscle use. HEART: Regular rate and rhythm, S1, S2 without murmur, rub or gallop. ABDOMEN: Soft, nontender, nondistended, normoactive bowel sounds, no guarding, no rebound, no hepatosplenomegaly, no masses. EXTREMITIES: 2+ pulses, warm, with right foot edema and masication of skin improved from initial intake NEUROLOGICAL: Cranial nerves II through XII grossly intact. Normal speech, gait not observed. PSYCH: Normal mood, normal affect. SKIN: Warm, dry, normal turgor, no rashes or lesions noted Laboratory Results - last 24 hr 11/26/18 11/27/18 11/27/18 22:26 05:30 05:30 WBC 8.3 RBC 2.89 L Hgb 9.0 L Hct 26.7 L MCV 92.4 MCH 31.1 MCHC 33.7 RDW 16.0 H Plt Count 319 MPV 8.5 Sodium 137 Potassium 3.0 L Chloride 98 Carbon Dioxide 32 Anion Gap 7 L BUN 14 Creatinine 3.6 H Creat Clearance w eGFR 16.66 POC Glucometer 88 Random Glucose 78 Calcium 7.4 L Total Bilirubin 0.3 AST 16 ALT 12 L Alkaline Phosphatase 88 Total Protein 5.6 L Albumin 1.7 L 11/27/18 11/27/18 11/27/18 05:52 12:20 17:17 WBC RBC Hgb Hct MCV MCH MCHC RDW Plt Count MPV Sodium Potassium Chloride Carbon Dioxide Anion Gap BUN Creatinine Creat Clearance w eGFR POC Glucometer 74 77 80 Random Glucose Calcium Total Bilirubin AST ALT Alkaline Phosphatase Total Protein Albumin Active Medications Generic Name Dose Route Start Last Admin Trade Name Kassandra PRN Reason Stop Dose Admin Acetaminophen 650 mg 11/27/18 09:53 Tylenol - PO Q6H PRN PAIN LEVEL 1-5 Albuterol Sulfate 1 amp 11/24/18 10:16 Ventolin 0.083% Nebulizer Soln - NEB Q4H PRN SHORT OF BREATH/WHEEZING Albuterol/Ipratropium 1 amp 11/24/18 12:00 11/27/18 16:20 Duoneb - NEB 1 amp RQID [facility] Administration Apixaban 5 mg 11/22/18 10:00 11/27/18 09:06 Eliquis - PO Not Given BID [facility] Atorvastatin Calcium 20 mg 11/22/18 22:00 11/26/18 22:17 Lipitor - PO 20 mg HS [facility] Administration Chlorhexidine Gluconate 1 applic 11/22/18 22:00 11/26/18 22:18 Hibiclens For Decolonization - TP 1 applic HS [facility] Administration Clopidogrel Bisulfate 75 mg 11/22/18 10:00 11/27/18 09:07 Plavix - PO Not Given DAILY [facility] Collagenase 1 applic 11/22/18 10:00 11/27/18 10:05 Santyl - TP 1 applic DAILY [facility] Administration Protocol Dextrose 25 gm 11/23/18 18:34 D50w (Vial) - IVPUSH PRN PRN HYPOGLYCEMIA Epoetin Jose 10,000 unit 11/28/18 11:38 Epogen - IVPUSH 11/28/18 11:39 ONCE ONE Escitalopram Oxalate 10 mg 11/22/18 10:00 11/27/18 09:07 Lexapro - PO 10 mg DAILY [facility] Administration Piperacillin Sod/Tazobactam 50 mls @ 100 mls/hr 11/22/18 11:15 11/27/18 09:27 Sod 2.25 gm/ Dextrose IVPB 100 mls/hr Q8H-IV [facility] Administration Protocol Sodium Chloride 250 mls @ 3,000 mls/hr 11/27/18 11:38 Normal Saline - IV 11/28/18 11:38 PRN PRN Hypotension during Dialysis Insulin Aspart 1 vial 11/22/18 07:00 11/27/18 12:20 Novolog Vial Sliding Scale - SQ Not Given ACHS [facility] Protocol Midodrine 10 mg 11/23/18 08:00 11/26/18 08:27 Proamatine - PO 10 mg MoWeFr@0800 [facility] Administration Multi-Ingredient Ointment 1 gm 11/22/18 10:00 11/27/18 10:04 Zinc Oxide 20% Topical Oint TP 1 gm BID [facility] Administration Pantoprazole Sodium 40 mg 11/22/18 10:00 11/27/18 09:08 Protonix Iv IVPUSH 40 mg DAILY [facility] Administration Sevelamer Carbonate 1,600 mg 11/22/18 08:00 11/27/18 12:40 Renvela - PO 1,600 mg TIDCM [facility] Administration Tamsulosin HCl 0.4 mg 11/22/18 22:00 11/26/18 22:17 Flomax - PO 0.4 mg HS [facility] Administration ASSESSMENT/PLAN: 73 [facility] M resident of [facility] with a significant PMHx of ESRD on dialysis (MWF) ,DM, HTN, HLD, prior CVA, and COPD who presents to the emergency department, via EMS after pulling out his dialysis catheter found to be unresponsive and hypotensive. Intubated in ER and admitted to ICU for further management. Neuro: Patient was unresponsive and subsequently intubated in the emergency department. CT head was negative for acute pathology. -Neuro checks to assess for mental status changes -off sedation -successfully extubated after successful spontaneous breathing trial. -mentating well and conversive -alert and oriented x2 Pulmonology: extubated on NC BD treatment PRN Maintain SpO2 >90% CV: Patient was hypotensive likely secondary to HD vs possible sepsis (pulmonary infiltrate seen on cxr). Patient received 3 L IVF in the ED and initially started on levophed now off. Continue midodrine Continue eliquis for afib ([id number] is 5) Continue statin for HLD Echo 10/31/18 showed moderate MR/TR with normal LV/RV size and function. Pending cardiology consultation -Continue to cardiac cath technologist ID: Possible sepsis due to infiltrate seen, cultures negative Blood and urine cultures sent, no growth seen Patient started on vancomycin and zosyn. A random vancomycin ordered. Currently on zosyn ID consulted and appreciate their recommendations Endo: BGM q6hrs ISS q6hrs Renal: Receiving dialysis tomorrow Nephrology consulted Trialysis placed in RIJ 11/22/2018 (refer to procedure note) Will get permacath today FEN: advanced diet monitor electrolytes and replete as necessary D5 at 20 mL/hr LTD: ET tube placed 11/21/18. Removed 11/23/2018 IO placed 11/21/18. Removed 11/22/18 Trialysis placed 11/22/18 Visit type - Emergency Visit Emergency Visit: Yes ED Registration Date: 11/21/18 Care time: The patient presented to the Emergency Department on the above date and was hospitalized for further evaluation of their emergent condition. - New Patient This patient is new to me today: No - Critical Care Critical Care patient: Yes Total Critical Care Time (in minutes): 36 Critical Care Statement: The care of this patient involved high complexity decision making to prevent further life threatening deterioration of the patient 's condition and/or to evaluate & treat vital organ system(s) failure or risk of failure. - Discharge Referral Referred to [facility] Med [facility] No
[2018-11-27] MEDS ORDERED: PROPOFOL 20 ML ONE (18:08)
[2018-11-27] MEDS ORDERED: MIDAZOLAM HCL 2 MG/2 ML SINGLE DOSE VIAL ONE (18:09)
[2018-11-27] MEDS ORDERED: SUCCINYLCHOLINE CHLORIDE 200 MG/10 ML VIAL ONE (18:09)
[2018-11-27] MEDS ORDERED: LIDOCAINE HCL 1%, 10 MG/ML (20ML VIAL) INF ONE (19:04)
--- NOTE | 2018-11-27 19:13 | OP ---
Operative Note - Note: Operative Date: 11/27/18 Pre-Operative Diagnosis: ESRD Operation: Insertion of permacath Post-Operative Diagnosis: Same as Pre-op Surgeon: Amos Mcneil Anesthesia: Fractional Estimated Blood Loss (mls): 20 Operative Report Dictated: Yes
[2018-11-27] MEDS ORDERED: DEXTROSE 50%-WATER - 25 GM/50 ML VIAL IVPUSH PRN (19:30)
[2018-11-27] MEDS ORDERED: ALBUTEROL SO4 0.083% IH SOL 2.5 MG/3 ML VIAL.NEB. NEB PRN (19:30)
--- NOTE | 2018-11-27 19:59 | OP ---
DATE OF OPERATION: 11/27/2018 PREOPERATIVE DIAGNOSIS: End-stage renal disease. POSTOPERATIVE DIAGNOSIS: End-stage renal disease. PROCEDURE: Insertion of PermCath. SURGEON: Amos Whaley DO ANESTHESIA: Fractional. BLOOD LOSS: 20 mL. The patient is a 73-year-old male who has PermCath pulled out and needs a new PermCath placement. He has a temporary Shiley catheter in his right IJ that is in place currently. Patient's family member was consented for the procedure, understanding all risks, benefits, and alternatives. Patient was then taken to the operating room. Once in the operating room, placed on operating table in supine manner, and we went ahead and took out the patient's right IJ Shiley. Pressure was held for 5 minutes and there was no more bleeding. We then prepped and draped the right neck and chest in a sterile surgical manner. Under ultrasound guidance, we were able to visualize the right internal jugular vein, and 10 mL of lidocaine 1% was injected over the vein. We then took our micropuncture needle and punctured the right IJ under ultrasound guidance. Micropuncture dart inserted, micropuncture sheath was inserted. A 0.035 floppy guidewire was inserted. We then injected 10 mL lidocaine 1% above and below the clavicle. We then took an 11-blade and made a 1-cm incision at the puncture site. We then took a 15-blade and made a 1-cm incision below the PermCath. We then tunneled the PermCath up to the puncture site. We then went ahead and placed our breakaway sheath over the guidewire into the vein under fluoroscopy, and the cannula and guidewire were removed. Catheter was placed inside the sheath, sheath was broken away, and catheter was placed inside the vein. Neck of the catheter was nice and smooth. The tip of the catheter was located outside the right atrium. We then philippe back on each port of the catheter, and there was good flow. Heparinized saline was injected, 2000 units of IV heparin was injected into each port. We then used 4-0 Biosyn and 2 simple stitches were placed at the puncture site, 3-0 nylon used, and the catheter was attached to the skin. BioPatch, Steri-Strips, 4x4, Tegaderm were placed. Patient tolerated the procedure with no complication. Patient transferred to PACU in stable condition, where a chest x-ray will be obtained. AMOS WHALEY DO [id number]
--- NOTE | 2018-11-27 20:21 | CONSULT ---
Consult Consult Specialty:: Podiatry Reason for Consultation:: Multiple wounds b/l feet and right ankle - History of Present Illness Chief Complaint: Wounds b/l feet and ankles. History of Present Illness: Chronic wounds b/l feet and ankle right. 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 Medical History [employer]: Yes: CVA, Dementia Cardio/Vascular: Yes: AFIB, CAD (PVD), CHF, HTN, Hyperlipdemia Pulmonary: Yes: COPD Renal/: Yes: Renal Failure, Hemodialysis Endocrine: Yes: Diabetes Mellitus - Alcohol/Substance Use Hx Alcohol Use: No - Smoking History Smoking history: Unknown if ever smoked Have you smoked in the past 12 months: No - Social History Usual Living Arrangement: Care Home Home Medications - Allergies Allergies/Adverse Reactions: Allergies Allergy/AdvReac Type Severity Reaction Status Date / Time watermelon Allergy Unknown Verified 10/29/18 06:33 melon Allergy Verified 10/29/18 06:33 No Known Drug Allergies Allergy Verified 10/29/18 06:34 - Home Medications Home Medications: Ambulatory Orders Albuterol 2.5/Ipratropium 0.5 [Duoneb -] 1 amp NEB Q6H PRN #0 amp 07/12/17 Allopurinol [Zyloprim -] 100 mg PO DAILY tablet 07/12/17 Atorvastatin Ca [Lipitor] 20 mg PO HS tablet 07/12/17 Clopidogrel Bisulfate [Plavix -] 75 mg PO DAILY tablet 07/12/17 Collagenase Clostridium Hist. [Santyl -] 250 unit TP DAILY 08/31/18 Lisinopril 10 mg PO DAILY 08/31/18 Collagenase Clostridium Hist. [Santyl -] 1 applic TP DAILY tube 09/06/18 Albuterol Sulfate [Proair Hfa] 2 puff IH Q6H PRN 10/29/18 Escitalopram Oxalate [Lexapro -] 10 mg PO DAILY 10/29/18 Folic Acid/Vit B Complex and C [Dialyvite Tablet] 1 each PO DAILY 10/29/18 Insulin Lispro [Humalog Kwikpen U-100] 0 unit SQ ACHS 10/29/18 Midodrine HCl 10 mg PO MOWEFR 10/29/18 Sevelamer Carbonate [Renvela -] 1,600 mg PO TID 10/29/18 Tamsulosin HCl [Flomax] 0.4 mg PO HS 10/29/18 Zinc Oxide 20% Topical Oint 454 gm NR BID 10/29/18 Ceftaroline Fosamil Acetate [Teflaro (Restricted To Id)] 200 mg IVPB BID vial 11/17/18 Insulin Sliding Scale [Novolog Vial Sliding Scale -] 1 vial SQ TIDAC #1 vial Apixaban [Eliquis -] 5 mg PO BID #30 tablet MDD 2 11/19/18 Vancomycin 1 Gram (Pre-Docked) [Vancomycin (Pre-Docked)] 1,000 mg IVPB Q2D #14 bag 11/19/18 Physical Exam Vital Signs: Vital Signs Temperature 98.2 F 11/27/18 19:14 Pulse Rate 80 11/27/18 19:45 Respiratory Rate 16 11/27/18 19:45 Blood Pressure 166/80 11/27/18 19:45 O2 Sat by Pulse Oximetry (%) 98 11/27/18 19:45 Extremities: Yes: Other (pvd b/l, +pressure ulceartions b/l, patient rigid from inactivity in lower extremities,) Labs: CBC, BMP 11/27/18 05:30 11/27/18 05:30 Assessment/Plan PVD chronic wounds b/l Santyl dressing changes daily to all wounds. Will follow. Read and appreciated ID note and vascular operative note.
[2018-11-27] MEDS: ATORVASTATIN CA 20 MG TABLET (FP) PO SCH (22:12)
[2018-11-27] MEDS: TAMSULOSIN HCL 0.4 MG CAP PO SCH (22:12)
[2018-11-27] MEDS: CHLORHEXIDINE GLUCONATE 4% CLEANSER FOR DECOLONIZATION TP SCH (22:13)
[2018-11-28] MEDS ORDERED: PIPERACILLIN/TAZOBACTAM 2.25 GM VIAL IVPB ONE ×3 (00:18→17:01)
[2018-11-28] MEDS: PIPERACILLIN/TAZOB 2.25 GM 2.25 GM in DEXTROSE 5%-WATER - 50 ML IVPB SCH ×4 (01:22→18:47)
[2018-11-28] MEDS: INSULIN SLIDING SCALE (NOVOLOG) 1 VIAL SQ SCH ×2 (06:36→15:07)
[2018-11-28 07:36] LABS: ALBUMIN 1.8 g/dl (3.4-5.0); ALK PHOS 92 U/L (45-117); ANION GAP 8 MMOL/L (8-16); BILIRUBIN,TOTAL 0.4 mg/dL (0.2-1); BLOOD UREA NITROGEN 19 mg/dL (7-18); CALCIUM 7.4 mg/dL (8.5-10.1); CHLORIDE 100 mmol/L (98-107); CO2 29 mmol/L (21-32); CREATININE 4.4 mg/dL (0.55-1.3); GLUCOSE,RANDOM 72 mg/dL (74-106); POTASSIUM 3.4 mmol/L (3.5-5.1); SGOT/AST 13 U/L (15-37); SGPT/ALT 10 U/L (13-61); SODIUM 137 mmol/L (136-145); TOT PROT 6.3 g/dl (6.4-8.2)
[2018-11-28] MEDS: ALBUTEROL SO4 2.5/IPRATROPIUM 0.5 INH SOL 3 ML VIAL.NEB. NEB SCH ×4 (07:42→21:50)
[2018-11-28] MEDS ORDERED: PT OWN MED DRAWER 7, Y5N ONE (09:01)
[2018-11-28] MEDS ORDERED: DEXTROSE 5%-WATER - 50 ML IVPB ONE ×2 (09:02→17:01)
[2018-11-28] MEDS: ESCITALOPRAM OXALATE 10 MG TABLET (FP) PO SCH (09:23)
[2018-11-28] MEDS: APIXABAN 5 MG TABLET PO SCH ×2 (09:23→22:58)
[2018-11-28] MEDS: SEVELAMER CARBONATE 800 MG TAB (FP) PO SCH ×3 (09:23→17:54)
[2018-11-28] MEDS: CLOPIDOGREL BISULFATE 75 MG TABLET (FP) PO SCH (09:23)
[2018-11-28] MEDS: MIDODRINE HCL 5 MG TABLET PO SCH (09:23)
[2018-11-28] MEDS ORDERED: EPOETIN ALFA 10,000 UNIT/1 ML VIAL IVPUSH ONE (09:30)
--- NOTE | 2018-11-28 09:49 | PN ---
Progress Note (short form) - Note Progress Note: 73yo M s/p permacath placement POD 1, pt seen and examined at bedside. Pt admits a little soreness around catheter. Denies bleeding or swelling. Denies fever, chills, n/v. Last Vital Signs Temp Pulse Resp BP Pulse Ox 99.1 F 93 H 18 146/83 100 11/28/18 05:42 11/28/18 05:42 11/28/18 05:42 11/28/18 05:42 11/27/18 21:00 CBC, BMP 11/27/18 05:30 11/28/18 06:30 PE: Gen: A&O x3 Resp: breathing comfortably Chest: Rt IJ permacath in place, dressing clean, no erythema or discharge. Problem List - Problems (1) ESRD (end stage renal disease) Assessment/Plan: Plan -catheter looks good, will go down for dialysis today. -follow up with Dr. Mcneil as outpatient Code(s): N18.6 - END STAGE RENAL DISEASE
[2018-11-28 10:28] LABS: HEMATOCRIT 28.8 % (35.4-49); HEMOGLOBIN 9.5 GM/dL (11.7-16.9); MCH 30.3 pg (25.7-33.7); MCHC 32.8 g/dl (32.0-35.9); MEAN CELL VOLUME 92.2 fl (80-96); MEAN PLT VOLUME 8.7 fl (7.5-11.1); PLATELET COUNT 335 K/MM3 (134-434); RBC 3.12 M/mm3 (4.00-5.60); RDW 16.2 % (11.9-15.9); WHITE BLOOD COUNT 8.2 K/mm3 (4.0-10.0)
[2018-11-28 11:23] LABS: ANION GAP 11 MMOL/L (8-16); BLOOD UREA NITROGEN 20 mg/dL (7-18); CALCIUM 7.7 mg/dL (8.5-10.1); CHLORIDE 102 mmol/L (98-107); CO2 27 mmol/L (21-32); CREATININE 4.6 mg/dL (0.55-1.3); GLUCOSE,RANDOM 88 mg/dL (74-106); POTASSIUM 3.3 mmol/L (3.5-5.1); SODIUM 140 mmol/L (136-145)
--- NOTE | 2018-11-28 11:27 | PN ---
Progress Note, Physician Chief Complaint: Acute respiratory failure ESRD Anemia History of Present Illness: NAD - Current Medication List Current Medications: Active Medications Acetaminophen (Tylenol -) 650 mg PO Q6H PRN PRN Reason: PAIN LEVEL 1-5 Albuterol Sulfate (Ventolin 0.083% Nebulizer Soln -) 1 amp NEB Q4H PRN PRN Reason: SHORT OF BREATH/WHEEZING Albuterol/Ipratropium (Duoneb -) 1 amp NEB RQID [facility] Last Admin: 11/27/18 20:19 Dose: 1 amp Apixaban (Eliquis -) 5 mg PO BID [facility] Last Admin: 11/28/18 09:23 Dose: 5 mg Atorvastatin Calcium (Lipitor -) 20 mg PO HS [facility] Last Admin: 11/27/18 22:12 Dose: 20 mg Chlorhexidine Gluconate (Hibiclens For Decolonization -) 1 applic TP HS [facility] Last Admin: 11/27/18 22:13 Dose: 1 applic Clopidogrel Bisulfate (Plavix -) 75 mg PO DAILY [facility] Last Admin: 11/28/18 09:23 Dose: 75 mg Collagenase (Santyl -) 1 applic TP DAILY [facility]; Protocol Dextrose (D50w (Vial) -) 25 gm IVPUSH PRN PRN PRN Reason: HYPOGLYCEMIA Escitalopram Oxalate (Lexapro -) 10 mg PO DAILY [facility] Last Admin: 11/28/18 09:23 Dose: 10 mg Piperacillin Sod/Tazobactam (Sod 2.25 gm/ Dextrose) 50 mls @ 100 mls/hr IVPB Q8H-IV [facility]; Protocol Last Admin: 11/28/18 01:22 Dose: 100 mls/hr Insulin Aspart (Novolog Vial Sliding Scale -) 1 vial SQ ACHS [facility]; Protocol Last Admin: 11/28/18 06:36 Dose: Not Given Midodrine (Proamatine -) 10 mg PO MoWeFr@0800 [facility] Last Admin: 11/28/18 09:23 Dose: 10 mg Multi-Ingredient Ointment (Zinc Oxide 20% Topical Oint) 1 gm TP BID [facility] Last Admin: 11/27/18 22:12 Dose: 1 applic Pantoprazole Sodium (Protonix Iv) 40 mg IVPUSH DAILY [facility] Sevelamer Carbonate (Renvela -) 1,600 mg PO TIDCM [facility] Last Admin: 11/28/18 09:23 Dose: Not Given Tamsulosin HCl (Flomax -) 0.4 mg PO HS [facility] Last Admin: 11/27/18 22:12 Dose: 0.4 mg - Objective Vital Signs: Vital Signs Temperature 98.1 F 11/28/18 09:40 Pulse Rate 98 H 11/28/18 10:45 Respiratory Rate 18 11/28/18 10:45 Blood Pressure 135/81 11/28/18 10:45 O2 Sat by Pulse Oximetry (%) 100 11/27/18 21:00 Constitutional: Yes: Well Nourished, No Distress, Calm Cardiovascular: Yes: Regular Rate and Rhythm Respiratory: Yes: Regular Gastrointestinal: Yes: WNL, Other (diarrhea) Genitourinary: Yes: Incontinence Musculoskeletal: Yes: Muscle Weakness Extremities: Yes: Other (generalized atrophy) Peripheral Pulses WNL: Yes Neurological: Yes: Confusion, Pre-Existing Deficit Labs: CBC, BMP 11/28/18 09:45 INR, PTT INR 1.32 (0.83-1.09) H 11/21/18 21:03 Problem List - Problems (1) Pressure ulcer Assessment/Plan: -Wound care consult -collagenase Code(s): L89.90 - PRESSURE ULCER OF UNSPECIFIED SITE, UNSPECIFIED STAGE (2) Acute hypoxemic respiratory failure Assessment/Plan: -resolved s/p extubation -IV abx Code(s): J96.01 - ACUTE RESPIRATORY FAILURE WITH HYPOXIA (3) ESRD (end stage renal disease) Assessment/Plan: H per renal today midodrine on HD days epogen with HD Code(s): N18.6 - END STAGE RENAL DISEASE (4) A-fib Assessment/Plan: -chronic, rate controlled -on eliquis Code(s): I48.91 - UNSPECIFIED ATRIAL FIBRILLATION (5) Anemia in chronic illness Assessment/Plan: -2/2 to CKD -epogen with HD Code(s): D63.8 - ANEMIA IN OTHER CHRONIC DISEASES CLASSIFIED ELSEWHERE (6) Sepsis Assessment/Plan: -ID on board -IV abx -Afebrile -no leukocytosis Code(s): A41.9 - SEPSIS, UNSPECIFIED ORGANISM Qualifiers: Sepsis type: sepsis due to unspecified organism Qualified Code(s): A41.9 - Sepsis, unspecified organism (7) Toxic metabolic encephalopathy Code(s): G92 - TOXIC ENCEPHALOPATHY (8) MRSA (methicillin resistant staph aureus) culture positive Assessment/Plan: -isolation precautions Code(s): Z22.322 - CARRIER OR SUSPECTED CARRIER OF METHICILLIN RESIS STAPH (9) Wound, open, foot Assessment/Plan: -podiatry and vascular on board -IV abx Code(s): S91.309A - UNSPECIFIED OPEN WOUND, UNSPECIFIED FOOT, INITIAL ENCOUNTER Qualifiers: Laterality: right Assessment/Plan see problem list poor prognosis
[2018-11-28] MEDS: COLLAGENASE CLOSTRIDIUM HIST. 30 GRAMS TUBE TP SCH (11:30)
--- NOTE | 2018-11-28 11:30 | PN ---
Progress Note, Physician History of Present Illness: CONFUSED NO COMPLAINTS AFEBRILE WBC WNL BC(11/22) NO GROWTH S/P PERMACATH PLACEMENT - Current Medication List Current Medications: Active Medications Acetaminophen (Tylenol -) 650 mg PO Q6H PRN PRN Reason: PAIN LEVEL 1-5 Albuterol Sulfate (Ventolin 0.083% Nebulizer Soln -) 1 amp NEB Q4H PRN PRN Reason: SHORT OF BREATH/WHEEZING Albuterol/Ipratropium (Duoneb -) 1 amp NEB RQID [facility] Last Admin: 11/27/18 20:19 Dose: 1 amp Apixaban (Eliquis -) 5 mg PO BID [facility] Last Admin: 11/28/18 09:23 Dose: 5 mg Atorvastatin Calcium (Lipitor -) 20 mg PO HS [facility] Last Admin: 11/27/18 22:12 Dose: 20 mg Chlorhexidine Gluconate (Hibiclens For Decolonization -) 1 applic TP HS [facility] Last Admin: 11/27/18 22:13 Dose: 1 applic Clopidogrel Bisulfate (Plavix -) 75 mg PO DAILY [facility] Last Admin: 11/28/18 09:23 Dose: 75 mg Collagenase (Santyl -) 1 applic TP DAILY [facility]; Protocol Dextrose (D50w (Vial) -) 25 gm IVPUSH PRN PRN PRN Reason: HYPOGLYCEMIA Escitalopram Oxalate (Lexapro -) 10 mg PO DAILY [facility] Last Admin: 11/28/18 09:23 Dose: 10 mg Piperacillin Sod/Tazobactam (Sod 2.25 gm/ Dextrose) 50 mls @ 100 mls/hr IVPB Q8H-IV [facility]; Protocol Last Admin: 11/28/18 01:22 Dose: 100 mls/hr Midodrine (Proamatine -) 10 mg PO MoWeFr@0800 [facility] Last Admin: 11/28/18 09:23 Dose: 10 mg Multi-Ingredient Ointment (Zinc Oxide 20% Topical Oint) 1 gm TP BID [facility] Last Admin: 11/27/18 22:12 Dose: 1 applic Pantoprazole Sodium (Protonix Iv) 40 mg IVPUSH DAILY [facility] Sevelamer Carbonate (Renvela -) 1,600 mg PO TIDCM [facility] Last Admin: 11/28/18 09:23 Dose: Not Given Tamsulosin HCl (Flomax -) 0.4 mg PO [facility] Last Admin: 11/27/18 22:12 Dose: 0.4 mg - Objective Vital Signs: Vital Signs Temperature 98.1 F 11/28/18 09:40 Pulse Rate 97 H 11/28/18 11:15 Respiratory Rate 18 11/28/18 11:15 Blood Pressure 117/64 11/28/18 11:15 O2 Sat by Pulse Oximetry (%) 100 11/27/18 21:00 Constitutional: Yes: No Distress Cardiovascular: Yes: Regular Rate and Rhythm, S1, S2 Respiratory: Yes: CTA Bilaterally Gastrointestinal: Yes: Normal Bowel Sounds, Soft. No: Tenderness Labs: CBC, BMP 11/28/18 09:45 11/28/18 09:45 INR, PTT INR 1.32 (0.83-1.09) H 11/21/18 21:03 Assessment/Plan S/P RESPIRATORY FAILURE R/O PNEUMONIA HX MRSA BACTEREMIA ESRD CONTINUE ZOSYN CHECK VANCOMYCIN LEVEL
[2018-11-28] MEDS ORDERED: EPOETIN ALFA 2,000 UNIT/1 ML VIAL IVPUSH ONE (11:38)
[2018-11-28] MEDS: ZINC OXIDE 20% TOPICAL OINTMENT 454 GM JAR TP SCH ×2 (13:21→23:04)
[2018-11-28] MEDS ORDERED: POTASSIUM CHLORIDE TABS 20 MEQ TABLET.ER (FP) PO ONE (13:23)
--- NOTE | 2018-11-28 13:27 | PN ---
Progress Note, Physician History of Present Illness: Pt seen and examined at bedside. He is tolerating HD. He denies shortness of breath. - Current Medication List Current Medications: Active Medications Acetaminophen (Tylenol -) 650 mg PO Q6H PRN PRN Reason: PAIN LEVEL 1-5 Albuterol Sulfate (Ventolin 0.083% Nebulizer Soln -) 1 amp NEB Q4H PRN PRN Reason: SHORT OF BREATH/WHEEZING Albuterol/Ipratropium (Duoneb -) 1 amp NEB RQID [facility] Last Admin: 11/27/18 20:19 Dose: 1 amp Apixaban (Eliquis -) 5 mg PO BID [facility] Last Admin: 11/28/18 09:23 Dose: 5 mg Atorvastatin Calcium (Lipitor -) 20 mg PO HS [facility] Last Admin: 11/27/18 22:12 Dose: 20 mg Chlorhexidine Gluconate (Hibiclens For Decolonization -) 1 applic TP HS [facility] Last Admin: 11/27/18 22:13 Dose: 1 applic Clopidogrel Bisulfate (Plavix -) 75 mg PO DAILY [facility] Last Admin: 11/28/18 09:23 Dose: 75 mg Collagenase (Santyl -) 1 applic TP DAILY [facility]; Protocol Dextrose (D50w (Vial) -) 25 gm IVPUSH PRN PRN PRN Reason: HYPOGLYCEMIA Escitalopram Oxalate (Lexapro -) 10 mg PO DAILY [facility] Last Admin: 11/28/18 09:23 Dose: 10 mg Piperacillin Sod/Tazobactam (Sod 2.25 gm/ Dextrose) 50 mls @ 100 mls/hr IVPB Q8H-IV [facility]; Protocol Last Admin: 11/28/18 01:22 Dose: 100 mls/hr Midodrine (Proamatine -) 10 mg PO MoWeFr@0800 [facility] Last Admin: 11/28/18 09:23 Dose: 10 mg Multi-Ingredient Ointment (Zinc Oxide 20% Topical Oint) 1 gm TP BID [facility] Last Admin: 11/27/18 22:12 Dose: 1 applic Pantoprazole Sodium (Protonix Iv) 40 mg IVPUSH DAILY [facility] Potassium Chloride (K-Dur -) 20 meq PO ONCE ONE Stop: 11/28/18 13:24 Sevelamer Carbonate (Renvela -) 1,600 mg PO TIDCM [facility] Last Admin: 11/28/18 09:23 Dose: Not Given Tamsulosin HCl (Flomax -) 0.4 mg PO HS [facility] Last Admin: 11/27/18 22:12 Dose: 0.4 mg - Objective Vital Signs: Vital Signs Temperature 98.1 F 11/28/18 09:40 Pulse Rate 98 H 11/28/18 12:50 Respiratory Rate 18 11/28/18 12:50 Blood Pressure 132/81 11/28/18 12:50 O2 Sat by Pulse Oximetry (%) 100 11/27/18 21:00 Constitutional: Yes: Calm Eyes: Yes: Conjunctiva Clear HENT: Yes: Atraumatic Neck: Yes: Supple Cardiovascular: Yes: S1, S2 Respiratory: Yes: CTA Bilaterally Gastrointestinal: Yes: Soft Genitourinary: Yes: Incontinence Musculoskeletal: Yes: WNL Edema: No Wound/Incision: Yes: Dressing Dry and Intact Neurological: Yes: Confusion Labs: CBC, BMP 11/28/18 09:45 11/28/18 09:45 INR, PTT INR 1.32 (0.83-1.09) H 11/21/18 21:03 Problem List - Problems (1) ESRD (end stage renal disease) Code(s): N18.6 - END STAGE RENAL DISEASE (2) Anemia Code(s): D64.9 - ANEMIA, UNSPECIFIED Assessment/Plan Current Medications Generic Name Dose Route Start Last Admin Trade Name Freq PRN Reason Stop Dose Admin Acetaminophen 650 mg 11/27/18 19:30 Tylenol - PO Q6H PRN PAIN LEVEL 1-5 Albuterol Sulfate 1 amp 11/27/18 19:30 Ventolin 0.083% Nebulizer Soln - NEB Q4H PRN SHORT OF BREATH/WHEEZING Albuterol/Ipratropium 1 amp 11/27/18 20:00 11/27/18 20:19 Duoneb - NEB 1 amp RQID [facility] Administration Apixaban 5 mg 11/27/18 22:00 11/28/18 09:23 Eliquis - PO 5 mg BID [facility] Administration Atorvastatin Calcium 20 mg 11/27/18 22:00 11/27/18 22:12 Lipitor - PO 20 mg HS [facility] Administration Chlorhexidine Gluconate 1 applic 11/27/18 22:00 11/27/18 22:13 Hibiclens For Decolonization - TP 1 applic HS [facility] Administration Clopidogrel Bisulfate 75 mg 11/28/18 10:00 11/28/18 09:23 Plavix - PO 75 mg DAILY [facility] Administration Collagenase 1 applic 11/28/18 10:00 Santyl - TP DAILY [facility] Protocol Dextrose 25 gm 11/27/18 19:30 D50w (Vial) - IVPUSH PRN PRN HYPOGLYCEMIA Escitalopram Oxalate 10 mg 11/28/18 10:00 11/28/18 09:23 Lexapro - PO 10 mg DAILY [facility] Administration Piperacillin Sod/Tazobactam 50 mls @ 100 mls/hr 11/28/18 02:00 11/28/18 01:22 Sod 2.25 gm/ Dextrose IVPB 100 mls/hr Q8H-IV [facility] Administration Protocol Midodrine 10 mg 11/28/18 08:00 11/28/18 09:23 Proamatine - PO 10 mg MoWeFr@0800 [facility] Administration Multi-Ingredient Ointment 1 gm 11/27/18 22:00 11/27/18 22:12 Zinc Oxide 20% Topical Oint TP 1 applic BID [facility] Administration Pantoprazole Sodium 40 mg 11/28/18 10:00 Protonix Iv IVPUSH DAILY [facility] Sevelamer Carbonate 1,600 mg 11/28/18 08:00 11/28/18 09:23 Renvela - PO Not Given TIDCM [facility] Tamsulosin HCl 0.4 mg 11/27/18 22:00 11/27/18 22:12 Flomax - PO 0.4 mg HS [facility] Administration Impression 1. ESRD 2. acute rep failure 3. DM 4. hyperlipidemia 5. HTN 6. gout 7. proteinuria 8. hypotension/shock 9. sepsis Plan - pt had permacath placed - HD today - check cortisol level - monitor bp - replace potassium - 3 k bath on HD - epogen for anemia - will follow
--- NOTE | 2018-11-28 14:14 | PN ---
Progress Note, Physician History of Present Illness: pulmonary alert,comfortable,-resp distress - Current Medication List Current Medications: Active Medications Acetaminophen (Tylenol -) 650 mg PO Q6H PRN PRN Reason: PAIN LEVEL 1-5 Albuterol Sulfate (Ventolin 0.083% Nebulizer Soln -) 1 amp NEB Q4H PRN PRN Reason: SHORT OF BREATH/WHEEZING Albuterol/Ipratropium (Duoneb -) 1 amp NEB RQID [facility] Last Admin: 11/27/18 20:19 Dose: 1 amp Apixaban (Eliquis -) 5 mg PO BID [facility] Last Admin: 11/28/18 09:23 Dose: 5 mg Atorvastatin Calcium (Lipitor -) 20 mg PO HS [facility] Last Admin: 11/27/18 22:12 Dose: 20 mg Chlorhexidine Gluconate (Hibiclens For Decolonization -) 1 applic TP [facility] Last Admin: 11/27/18 22:13 Dose: 1 applic Clopidogrel Bisulfate (Plavix -) 75 mg PO DAILY [facility] Last Admin: 11/28/18 09:23 Dose: 75 mg Collagenase (Santyl -) 1 applic TP DAILY [facility]; Protocol Dextrose (D50w (Vial) -) 25 gm IVPUSH PRN PRN PRN Reason: HYPOGLYCEMIA Escitalopram Oxalate (Lexapro -) 10 mg PO DAILY [facility] Last Admin: 11/28/18 09:23 Dose: 10 mg Piperacillin Sod/Tazobactam (Sod 2.25 gm/ Dextrose) 50 mls @ 100 mls/hr IVPB Q8H-IV [facility]; Protocol Last Admin: 11/28/18 01:22 Dose: 100 mls/hr Midodrine (Proamatine -) 10 mg PO MoWeFr@0800 [facility] Last Admin: 11/28/18 09:23 Dose: 10 mg Multi-Ingredient Ointment (Zinc Oxide 20% Topical Oint) 1 gm TP BID [facility] Last Admin: 11/28/18 13:21 Dose: 1 applic Pantoprazole Sodium (Protonix Iv) 40 mg IVPUSH DAILY [facility] Sevelamer Carbonate (Renvela -) 1,600 mg PO TIDCM [facility] Last Admin: 11/28/18 13:21 Dose: Not Given Tamsulosin HCl (Flomax -) 0.4 mg PO [facility] Last Admin: 11/27/18 22:12 Dose: 0.4 mg - Objective Vital Signs: Vital Signs Temperature 97.5 F L 11/28/18 13:41 Pulse Rate 97 H 11/28/18 13:41 Respiratory Rate 20 11/28/18 13:41 Blood Pressure 132/75 11/28/18 13:41 O2 Sat by Pulse Oximetry (%) 100 11/27/18 21:00 Constitutional: Yes: Well Nourished, Calm Eyes: Yes: WNL HENT: Yes: WNL Neck: Yes: WNL Cardiovascular: Yes: Pulse Irregular, S1, S2 Respiratory: Yes: Diminished Gastrointestinal: Yes: Normal Bowel Sounds, Soft Extremities: Yes: WNL Edema: No Labs: CBC, BMP 11/28/18 09:45 11/28/18 09:45 INR, PTT INR 1.32 (0.83-1.09) H 11/21/18 21:03 Problem List - Problems (1) Acute hypoxemic respiratory failure Code(s): J96.01 - ACUTE RESPIRATORY FAILURE WITH HYPOXIA (2) ESRD (end stage renal disease) Code(s): N18.6 - END STAGE RENAL DISEASE (3) Elevated troponin Code(s): R74.8 - ABNORMAL LEVELS OF OTHER SERUM ENZYMES (4) A-fib Code(s): I48.91 - UNSPECIFIED ATRIAL FIBRILLATION (5) Anemia Code(s): D64.9 - ANEMIA, UNSPECIFIED (6) CKD (chronic kidney disease) Code(s): N18.9 - CHRONIC KIDNEY DISEASE, UNSPECIFIED (7) Diabetes Code(s): E11.9 - TYPE 2 DIABETES MELLITUS WITHOUT COMPLICATIONS Qualifiers: Diabetes mellitus type: type 2 (8) HTN (hypertension) Code(s): I10 - ESSENTIAL (PRIMARY) HYPERTENSION Qualifiers: Hypertension type: essential hypertension Qualified Code(s): I10 - Essential (primary) hypertension Assessment/Plan ASSESSMENT AND PLAN: s/p Acute Respiratory Failure Resolved RUL Atelectasis Pneumonia ESRD on HD Atrial Fibrillation DM HTN HLD h/o CVA COPD - continue antibiotics - HD per renal - rate control - continue anticoagulation - O2 to keep Spo2 >90% - PO as tolerated - aspiration precautions DR GODINEZ
[2018-11-28] MEDS: PANTOPRAZOLE SODIUM 40 MG VIAL IVPUSH SCH (14:26)
[2018-11-28] MEDS: ATORVASTATIN CA 20 MG TABLET (FP) PO SCH (22:59)
[2018-11-28] MEDS: TAMSULOSIN HCL 0.4 MG CAP PO SCH (22:59)
[2018-11-28] MEDS: CHLORHEXIDINE GLUCONATE 4% CLEANSER FOR DECOLONIZATION TP SCH (23:00)
[2018-11-29] MEDS ORDERED: DEXTROSE 5%-WATER - 50 ML IVPB ONE ×3 (01:59→15:21)
[2018-11-29] MEDS ORDERED: PIPERACILLIN/TAZOBACTAM 2.25 GM VIAL IVPB ONE ×3 (01:59→15:21)
[2018-11-29] MEDS: PIPERACILLIN/TAZOB 2.25 GM 2.25 GM in DEXTROSE 5%-WATER - 50 ML IVPB SCH ×2 (02:05→09:09)
[2018-11-29] MEDS: ALBUTEROL SO4 2.5/IPRATROPIUM 0.5 INH SOL 3 ML VIAL.NEB. NEB SCH ×4 (07:35→19:52)
[2018-11-29] MEDS: ACETAMINOPHEN 325 MG TABLET (FP) PO PRN (09:06)
[2018-11-29] MEDS: CLOPIDOGREL BISULFATE 75 MG TABLET (FP) PO SCH (09:08)
[2018-11-29] MEDS: APIXABAN 5 MG TABLET PO SCH ×2 (09:08→23:15)
[2018-11-29] MEDS: ESCITALOPRAM OXALATE 10 MG TABLET (FP) PO SCH (09:08)
[2018-11-29] MEDS: SEVELAMER CARBONATE 800 MG TAB (FP) PO SCH ×3 (09:08→17:54)
[2018-11-29] MEDS: PANTOPRAZOLE SODIUM 40 MG VIAL IVPUSH SCH (09:09)
--- NOTE | 2018-11-29 09:18 | PN ---
Progress Note (short form) - Note Progress Note: Awake and alert on RA. Saturation is 97% on RA. Reports mild abdominal discomfort. Intake & Output 11/26/18 11/27/18 11/28/18 11/29/18 23:59 23:59 23:59 23:59 Intake Total 780 1030 437 50 Balance 780 1030 437 50 Weight 176 lb 12.8 oz 176 lb 176 lb 178 lb 14.4 oz Last Vital Signs Temp Pulse Resp BP Pulse Ox 97.6 F 94 H 20 159/82 96 11/29/18 08:04 11/29/18 08:04 11/29/18 08:04 11/29/18 08:04 11/28/18 21:00 Active Medications Acetaminophen (Tylenol -) 650 mg PO Q6H PRN PRN Reason: PAIN LEVEL 1-5 Albuterol Sulfate (Ventolin 0.083% Nebulizer Soln -) 1 amp NEB Q4H PRN PRN Reason: SHORT OF BREATH/WHEEZING Albuterol/Ipratropium (Duoneb -) 1 amp NEB RQID [facility] Last Admin: 11/29/18 07:35 Dose: 1 amp Apixaban (Eliquis -) 5 mg PO BID [facility] Last Admin: 11/28/18 22:58 Dose: 5 mg Atorvastatin Calcium (Lipitor -) 20 mg PO HS [facility] Last Admin: 11/28/18 22:59 Dose: 20 mg Chlorhexidine Gluconate (Hibiclens For Decolonization -) 1 applic TP HS [facility] Last Admin: 11/28/18 23:00 Dose: 1 applic Clopidogrel Bisulfate (Plavix -) 75 mg PO DAILY [facility] Last Admin: 11/28/18 09:23 Dose: 75 mg Collagenase (Santyl -) 1 applic TP DAILY [facility]; Protocol Last Admin: 11/28/18 11:30 Dose: Not Given Dextrose (D50w (Vial) -) 25 gm IVPUSH PRN PRN PRN Reason: HYPOGLYCEMIA Escitalopram Oxalate (Lexapro -) 10 mg PO DAILY [facility] Last Admin: 11/28/18 09:23 Dose: 10 mg Piperacillin Sod/Tazobactam (Sod 2.25 gm/ Dextrose) 50 mls @ 100 mls/hr IVPB Q8H-IV [facility]; Protocol Last Admin: 11/29/18 02:05 Dose: 100 mls/hr Midodrine (Proamatine -) 10 mg PO MoWeFr@0800 [facility] Last Admin: 11/28/18 09:23 Dose: 10 mg Multi-Ingredient Ointment (Zinc Oxide 20% Topical Oint) 1 gm TP BID [facility] Last Admin: 11/28/18 23:04 Dose: 1 applic Pantoprazole Sodium (Protonix Iv) 40 mg IVPUSH DAILY [facility] Last Admin: 11/28/18 14:26 Dose: 40 mg Sevelamer Carbonate (Renvela -) 1,600 mg PO TIDCM [facility] Last Admin: 11/28/18 17:54 Dose: 1,600 mg Tamsulosin HCl (Flomax -) 0.4 mg PO HS [facility] Last Admin: 11/28/18 22:59 Dose: 0.4 mg Constitutional: Yes: Well Nourished, NAD Eyes: Yes: WNL HENT: Yes: WNL Neck: Yes: WNL Cardiovascular: Yes: Pulse Irregular, S1, S2 Respiratory: Yes: Diminished Gastrointestinal: Yes: Normal Bowel Sounds, Soft Extremities: Yes: WNL Edema: No Labs: Laboratory Results - last 24 hr 11/28/18 11/28/18 11/28/18 09:45 09:45 11:30 WBC 8.2 RBC 3.12 L Hgb 9.5 L Hct 28.8 L MCV 92.2 MCH 30.3 MCHC 32.8 RDW 16.2 H Plt Count 335 MPV 8.7 Sodium 140 Potassium 3.3 L Chloride 102 Carbon Dioxide 27 Anion Gap 11 BUN 20 H Creatinine 4.6 H Creat Clearance w eGFR 12.55 POC Glucometer Random Glucose 88 Calcium 7.7 L Random Vancomycin 15.7 L 11/28/18 11/28/18 13:18 16:45 WBC RBC Hgb Hct MCV MCH MCHC RDW Plt Count MPV Sodium Potassium Chloride Carbon Dioxide Anion Gap BUN Creatinine Creat Clearance w eGFR POC Glucometer 132 112 Random Glucose Calcium Random Vancomycin Problem List - Problems (1) Acute hypoxemic respiratory failure Code(s): J96.01 - ACUTE RESPIRATORY FAILURE WITH HYPOXIA (2) ESRD (end stage renal disease) Code(s): N18.6 - END STAGE RENAL DISEASE (3) Elevated troponin Code(s): R74.8 - ABNORMAL LEVELS OF OTHER SERUM ENZYMES (4) A-fib Code(s): I48.91 - UNSPECIFIED ATRIAL FIBRILLATION (5) Anemia Code(s): D64.9 - ANEMIA, UNSPECIFIED (6) CKD (chronic kidney disease) Code(s): N18.9 - CHRONIC KIDNEY DISEASE, UNSPECIFIED (7) Diabetes Code(s): E11.9 - TYPE 2 DIABETES MELLITUS WITHOUT COMPLICATIONS Qualifiers: Diabetes mellitus type: type 2 (8) HTN (hypertension) Code(s): I10 - ESSENTIAL (PRIMARY) HYPERTENSION Qualifiers: Hypertension type: essential hypertension Qualified Code(s): I10 - Essential (primary) hypertension Assessment/Plan ASSESSMENT AND PLAN: s/p Acute Respiratory Failure Resolved RUL Atelectasis Pneumonia ESRD on HD Atrial Fibrillation DM HTN HLD h/o CVA COPD - ABX per ID - HD per renal - Rate control - Anticoagulation - O2 to keep Spo2 >90% - PO as tolerated - Aspiration precautions Dr Palmer
[2018-11-29] MEDS: ZINC OXIDE 20% TOPICAL OINTMENT 454 GM JAR TP SCH ×2 (09:27→23:16)
[2018-11-29] MEDS: COLLAGENASE CLOSTRIDIUM HIST. 30 GRAMS TUBE TP SCH (09:27)
--- NOTE | 2018-11-29 11:58 | PN ---
Progress Note, Physician Chief Complaint: ESRD Anemia Respiratory Failure, Acute History of Present Illness: Previous notes and events reviewed awake and alert NAD c/o abdominal pain denies chest pain, SOB - Current Medication List Current Medications: Active Medications Acetaminophen (Tylenol -) 650 mg PO Q6H PRN PRN Reason: PAIN LEVEL 1-5 Last Admin: 11/29/18 09:06 Dose: 650 mg Albuterol Sulfate (Ventolin 0.083% Nebulizer Soln -) 1 amp NEB Q4H PRN PRN Reason: SHORT OF BREATH/WHEEZING Albuterol/Ipratropium (Duoneb -) 1 amp NEB RQID [facility] Last Admin: 11/29/18 07:35 Dose: 1 amp Apixaban (Eliquis -) 5 mg PO BID [facility] Last Admin: 11/29/18 09:08 Dose: 5 mg Atorvastatin Calcium (Lipitor -) 20 mg PO HS [facility] Last Admin: 11/28/18 22:59 Dose: 20 mg Chlorhexidine Gluconate (Hibiclens For Decolonization -) 1 applic TP HS [facility] Last Admin: 11/28/18 23:00 Dose: 1 applic Clopidogrel Bisulfate (Plavix -) 75 mg PO DAILY [facility] Last Admin: 11/29/18 09:08 Dose: 75 mg Collagenase (Santyl -) 1 applic TP DAILY [facility]; Protocol Last Admin: 11/29/18 09:27 Dose: 1 applic Dextrose (D50w (Vial) -) 25 gm IVPUSH PRN PRN PRN Reason: HYPOGLYCEMIA Escitalopram Oxalate (Lexapro -) 10 mg PO DAILY [facility] Last Admin: 11/29/18 09:08 Dose: 10 mg Piperacillin Sod/Tazobactam (Sod 2.25 gm/ Dextrose) 50 mls @ 100 mls/hr IVPB Q8H-IV [facility]; Protocol Last Admin: 11/29/18 09:09 Dose: 100 mls/hr Midodrine (Proamatine -) 10 mg PO MoWeFr@0800 [facility] Last Admin: 11/28/18 09:23 Dose: 10 mg Multi-Ingredient Ointment (Zinc Oxide 20% Topical Oint) 1 gm TP BID [facility] Last Admin: 11/29/18 09:27 Dose: 1 applic Pantoprazole Sodium (Protonix Iv) 40 mg IVPUSH DAILY [facility] Last Admin: 11/29/18 09:09 Dose: 40 mg Sevelamer Carbonate (Renvela -) 1,600 mg PO TIDCM [facility] Last Admin: 11/29/18 11:27 Dose: 1,600 mg Tamsulosin HCl (Flomax -) 0.4 mg PO HS [facility] Last Admin: 11/28/18 22:59 Dose: 0.4 mg - Objective Vital Signs: Vital Signs Temperature 97.6 F 11/29/18 08:04 Pulse Rate 94 H 11/29/18 08:04 Respiratory Rate 20 11/29/18 09:00 Blood Pressure 159/82 11/29/18 08:04 O2 Sat by Pulse Oximetry (%) 100 11/29/18 09:00 Constitutional: Yes: No Distress, Calm Eyes: Yes: Conjunctiva Clear HENT: Yes: Atraumatic Cardiovascular: Yes: Regular Rate and Rhythm Respiratory: Yes: Regular, Diminished Gastrointestinal: Yes: Normal Bowel Sounds, Soft, Other (generalized tenderness) Genitourinary: Yes: Incontinence Musculoskeletal: Yes: Muscle Weakness Extremities: Yes: WNL Edema: No Wound/Incision: Yes: Dressing Dry and Intact Neurological: Yes: Alert, Pre-Existing Deficit Labs: CBC, BMP 11/28/18 09:45 11/28/18 09:45 INR, PTT INR 1.32 (0.83-1.09) H 11/21/18 21:03 Microbiology 11/22/18 00:40 Blood - Peripheral Venous Blood Culture - Final NO GROWTH AFTER 5 DAYS INCUBATION 11/22/18 00:40 Blood - Peripheral Venous Blood Culture - Final NO GROWTH AFTER 5 DAYS INCUBATION Problem List - Problems (1) ESRD (end stage renal disease) Assessment/Plan[facility] [place] [facility]continue with HD as scheduled -monitor BUN/Cr Code(s): N18.6 - END STAGE RENAL DISEASE (2) Hypotension Assessment/Plan: -[place] on -- Code(s): I95.9 - HYPOTENSION, UNSPECIFIED (3) Pressure ulcer Assessment/Plan: -daily dressing changes Code(s): L89.90 - PRESSURE ULCER OF UNSPECIFIED SITE, UNSPECIFIED STAGE (4) A-fib Assessment/Plan: -on Eliquis Code(s): I48.91 - UNSPECIFIED ATRIAL FIBRILLATION (5) Anemia Assessment/Plan: -epogen on days of HD -monitor H/H daily -current Hg 9.5 Code(s): D64.9 - ANEMIA, UNSPECIFIED (6) MRSA (methicillin resistant staph aureus) culture positive Assessment/Plan: -continue contact precautions Code(s): Z22.322 - CARRIER OR SUSPECTED CARRIER OF METHICILLIN RESIS STAPH (7) Sepsis Assessment/Plan: -ID on board -continue with IV zosyn -currently afebrile and no leukocytosis Code(s): A41.9 - SEPSIS, UNSPECIFIED ORGANISM Qualifiers: Sepsis type: sepsis due to unspecified organism Qualified Code(s): A41.9 - Sepsis, unspecified organism (8) Toxic metabolic encephalopathy Code(s): G92 - TOXIC ENCEPHALOPATHY (9) Wound, open, foot Assessment/Plan: -daily dressing changes -podiatry on board Code(s): S91.309A - UNSPECIFIED OPEN WOUND, UNSPECIFIED FOOT, INITIAL ENCOUNTER Qualifiers: Laterality: right Assessment/Plan see problem list dvt ppx
--- NOTE | 2018-11-29 14:15 | PN ---
Progress Note, Physician History of Present Illness: Pt seen and examined at bedside. He is awake but remains confused. - Current Medication List Current Medications: Active Medications Acetaminophen (Tylenol -) 650 mg PO Q6H PRN PRN Reason: PAIN LEVEL 1-5 Last Admin: 11/29/18 09:06 Dose: 650 mg Albuterol Sulfate (Ventolin 0.083% Nebulizer Soln -) 1 amp NEB Q4H PRN PRN Reason: SHORT OF BREATH/WHEEZING Albuterol/Ipratropium (Duoneb -) 1 amp NEB RQID [facility] Last Admin: 11/29/18 07:35 Dose: 1 amp Apixaban (Eliquis -) 5 mg PO BID [facility] Last Admin: 11/29/18 09:08 Dose: 5 mg Atorvastatin Calcium (Lipitor -) 20 mg PO HS [facility] Last Admin: 11/28/18 22:59 Dose: 20 mg Chlorhexidine Gluconate (Hibiclens For Decolonization -) 1 applic TP HS [facility] Last Admin: 11/28/18 23:00 Dose: 1 applic Clopidogrel Bisulfate (Plavix -) 75 mg PO DAILY [facility] Last Admin: 11/29/18 09:08 Dose: 75 mg Collagenase (Santyl -) 1 applic TP DAILY [facility]; Protocol Last Admin: 11/29/18 09:27 Dose: 1 applic Dextrose (D50w (Vial) -) 25 gm IVPUSH PRN PRN PRN Reason: HYPOGLYCEMIA Escitalopram Oxalate (Lexapro -) 10 mg PO DAILY [facility] Last Admin: 11/29/18 09:08 Dose: 10 mg Piperacillin Sod/Tazobactam (Sod 2.25 gm/ Dextrose) 50 mls @ 100 mls/hr IVPB Q8H-IV [facility]; Protocol Last Admin: 11/29/18 09:09 Dose: 100 mls/hr Midodrine (Proamatine -) 10 mg PO MoWeFr@0800 [facility] Last Admin: 11/28/18 09:23 Dose: 10 mg Multi-Ingredient Ointment (Zinc Oxide 20% Topical Oint) 1 gm TP BID [facility] Last Admin: 11/29/18 09:27 Dose: 1 applic Pantoprazole Sodium (Protonix Iv) 40 mg IVPUSH DAILY [facility] Last Admin: 11/29/18 09:09 Dose: 40 mg Sevelamer Carbonate (Renvela -) 1,600 mg PO TIDCM [facility] Last Admin: 11/29/18 11:27 Dose: 1,600 mg Tamsulosin HCl (Flomax -) 0.4 mg PO HS [facility] Last Admin: 11/28/18 22:59 Dose: 0.4 mg - Objective Vital Signs: Vital Signs Temperature 97.6 F 11/29/18 08:04 Pulse Rate 94 H 11/29/18 08:04 Respiratory Rate 20 11/29/18 09:00 Blood Pressure 159/82 11/29/18 08:04 O2 Sat by Pulse Oximetry (%) 100 11/29/18 09:00 Constitutional: Yes: Calm Eyes: Yes: Conjunctiva Clear HENT: Yes: Atraumatic Neck: Yes: Supple Cardiovascular: Yes: S1, S2 Respiratory: Yes: CTA Bilaterally Gastrointestinal: Yes: Soft Genitourinary: Yes: Incontinence Musculoskeletal: Yes: Muscle Weakness Edema: No Neurological: Yes: Confusion Labs: CBC, BMP 11/28/18 09:45 11/28/18 09:45 INR, PTT INR 1.32 (0.83-1.09) H 11/21/18 21:03 Problem List - Problems (1) ESRD (end stage renal disease) Code(s): N18.6 - END STAGE RENAL DISEASE (2) Anemia Code(s): D64.9 - ANEMIA, UNSPECIFIED Assessment/Plan Current Medications Generic Name Dose Route Start Last Admin Trade Name Freq PRN Reason Stop Dose Admin Acetaminophen 650 mg 11/27/18 19:30 11/29/18 09:06 Tylenol - PO 650 mg Q6H PRN Administration PAIN LEVEL 1-5 Albuterol Sulfate 1 amp 11/27/18 19:30 Ventolin 0.083% Nebulizer Soln - [facility] Q4H PRN SHORT OF BREATH/WHEEZING Albuterol/Ipratropium 1 amp 11/27/18 20:00 11/29/18 07:35 Duoneb - NEB 1 amp RQID [facility] Administration Apixaban 5 mg 11/27/18 22:00 11/29/18 09:08 Eliquis - PO 5 mg BID [facility] Administration Atorvastatin Calcium 20 mg 11/27/18 22:00 11/28/18 22:59 Lipitor - PO 20 mg HS [facility] Administration Chlorhexidine Gluconate 1 applic 11/27/18 22:00 11/28/18 23:00 Hibiclens For Decolonization - TP 1 applic HS [facility] Administration Clopidogrel Bisulfate 75 mg 11/28/18 10:00 11/29/18 09:08 Plavix - PO 75 mg DAILY [facility] Administration Collagenase 1 applic 11/28/18 10:00 11/29/18 09:27 Santyl - TP 1 applic DAILY [facility] Administration Protocol Dextrose 25 gm 11/27/18 19:30 D50w (Vial) - IVPUSH PRN PRN HYPOGLYCEMIA Escitalopram Oxalate 10 mg 11/28/18 10:00 11/29/18 09:08 Lexapro - PO 10 mg DAILY [facility] Administration Piperacillin Sod/Tazobactam 50 mls @ 100 mls/hr 11/28/18 02:00 11/29/18 09:09 Sod 2.25 gm/ Dextrose IVPB 100 mls/hr Q8H-IV [facility] Administration Protocol Midodrine 10 mg 11/28/18 08:00 11/28/18 09:23 Proamatine - PO 10 mg MoWeFr@0800 [facility] Administration Multi-Ingredient Ointment 1 gm 11/27/18 22:00 11/29/18 09:27 Zinc Oxide 20% Topical Oint TP 1 applic BID [facility] Administration Pantoprazole Sodium 40 mg 11/28/18 10:00 11/29/18 09:09 Protonix Iv IVPUSH 40 mg DAILY [facility] Administration Sevelamer Carbonate 1,600 mg 11/28/18 08:00 11/29/18 11:27 Renvela - PO 1,600 mg TIDCM [facility] Administration Tamsulosin HCl 0.4 mg 11/27/18 22:00 11/28/18 22:59 Flomax - PO 0.4 mg HS [facility] Administration Impression 1. ESRD 2. acute rep failure 3. DM 4. hyperlipidemia 5. HTN 6. gout 7. proteinuria 8. hypotension/shock 9. sepsis Plan - next HD tomorrow - check cortisol level - monitor bp - 3 k bath on HD - epogen for anemia - will follow
--- NOTE | 2018-11-29 15:58 | PN ---
Progress Note (short form) - Note Progress Note: FUV wound right lateral foot and pretrophic wound right ankle. ID Dr. Multani present during visit. vss, Tmax 98.3 +improved wound lateral right foot, +granulating medial ankle right, no wounds noted on left foot, wbc=8.2 Improving wounds Continue Santyl. Nurse to redress with Santyl dressing to open wounds. Will follow till dc.
--- NOTE | 2018-11-29 16:00 | PN ---
Progress Note, Physician History of Present Illness: CONFUSED NO COMPLAINTS AFEBRILE WBC WNL BC(11/22) NO GROWTH S/P PERMACATH PLACEMENT - Current Medication List Current Medications: Active Medications Acetaminophen (Tylenol -) 650 mg PO Q6H PRN PRN Reason: PAIN LEVEL 1-5 Last Admin: 11/29/18 09:06 Dose: 650 mg Albuterol Sulfate (Ventolin 0.083% Nebulizer Soln -) 1 amp NEB Q4H PRN PRN Reason: SHORT OF BREATH/WHEEZING Albuterol/Ipratropium (Duoneb -) 1 amp NEB RQID [facility] Last Admin: 11/29/18 15:20 Dose: Not Given Apixaban (Eliquis -) 5 mg PO BID [facility] Last Admin: 11/29/18 09:08 Dose: 5 mg Atorvastatin Calcium (Lipitor -) 20 mg PO HS [facility] Last Admin: 11/28/18 22:59 Dose: 20 mg Chlorhexidine Gluconate (Hibiclens For Decolonization -) 1 applic TP HS [facility] Last Admin: 11/28/18 23:00 Dose: 1 applic Clopidogrel Bisulfate (Plavix -) 75 mg PO DAILY [facility] Last Admin: 11/29/18 09:08 Dose: 75 mg Collagenase (Santyl -) 1 applic TP DAILY [facility]; Protocol Last Admin: 11/29/18 09:27 Dose: 1 applic Dextrose (D50w (Vial) -) 25 gm IVPUSH PRN PRN PRN Reason: HYPOGLYCEMIA Epoetin Jose (Epogen -) 10,000 unit IVPUSH ONCE ONE Stop: 11/30/18 14:16 Escitalopram Oxalate (Lexapro -) 10 mg PO DAILY [facility] Last Admin: 11/29/18 09:08 Dose: 10 mg Piperacillin Sod/Tazobactam (Sod 2.25 gm/ Dextrose) 50 mls @ 100 mls/hr IVPB Q8H-IV [facility]; Protocol Last Admin: 11/29/18 09:09 Dose: 100 mls/hr Sodium Chloride (Normal Saline -) 250 mls @ 3,000 mls/hr IV PRN PRN PRN Reason: Hypotension during Dialysis Stop: 11/30/18 14:15 Midodrine (Proamatine -) 10 mg PO MoWeFr@0800 [facility] Last Admin: 11/28/18 09:23 Dose: 10 mg Multi-Ingredient Ointment (Zinc Oxide 20% Topical Oint) 1 gm TP BID [facility] Last Admin: 11/29/18 09:27 Dose: 1 applic Pantoprazole Sodium (Protonix Iv) 40 mg IVPUSH DAILY [facility] Last Admin: 11/29/18 09:09 Dose: 40 mg Sevelamer Carbonate (Renvela -) 1,600 mg PO TIDCM [facility] Last Admin: 11/29/18 11:27 Dose: 1,600 mg Tamsulosin HCl (Flomax -) 0.4 mg PO HS [facility] Last Admin: 11/28/18 22:59 Dose: 0.4 mg - Objective Vital Signs: Vital Signs Temperature 98.3 F 11/29/18 14:54 Pulse Rate 97 H 11/29/18 14:54 Respiratory Rate 20 11/29/18 14:54 Blood Pressure 129/69 11/29/18 14:54 O2 Sat by Pulse Oximetry (%) 100 11/29/18 09:00 Constitutional: Yes: No Distress Cardiovascular: Yes: Regular Rate and Rhythm, S1, S2 Respiratory: Yes: Diminished Gastrointestinal: Yes: Normal Bowel Sounds, Soft. No: Tenderness Extremities: Yes: Other (R FOOT ULCER DRY) Labs: CBC, BMP 11/28/18 09:45 11/28/18 09:45 INR, PTT INR 1.32 (0.83-1.09) H 11/21/18 21:03 Assessment/Plan S/P RESPIRATORY FAILURE R/O PNEUMONIA HX MRSA BACTEREMIA ESRD DISCONTINUE ZOSYN SWITCH TO PO AUGMENTIN REDOSE VANCOMYCIN
[2018-11-29] MEDS ORDERED: VANCOMYCIN 1 GRAM (PRE-DOCKED) 1,000 MG/250 ML BAG IVPB ONE (16:15)
[2018-11-29] MEDS: AMOX TR/POT CLAV 500MG/125MG TABLETS (FP) PO SCH (17:53)
[2018-11-29] MEDS: ATORVASTATIN CA 20 MG TABLET (FP) PO SCH (23:15)
[2018-11-29] MEDS: CHLORHEXIDINE GLUCONATE 4% CLEANSER FOR DECOLONIZATION TP SCH (23:15)
[2018-11-29] MEDS: TAMSULOSIN HCL 0.4 MG CAP PO SCH (23:15)
[2018-11-30] MEDS: ALBUTEROL SO4 2.5/IPRATROPIUM 0.5 INH SOL 3 ML VIAL.NEB. NEB SCH ×4 (07:20→21:20)
[2018-11-30] MEDS: MIDODRINE HCL 5 MG TABLET PO SCH (09:31)
[2018-11-30] MEDS: PANTOPRAZOLE SODIUM 40 MG VIAL IVPUSH SCH (09:31)
[2018-11-30] MEDS: APIXABAN 5 MG TABLET PO SCH ×2 (09:31→23:03)
[2018-11-30] MEDS: CLOPIDOGREL BISULFATE 75 MG TABLET (FP) PO SCH (09:31)
[2018-11-30] MEDS: ESCITALOPRAM OXALATE 10 MG TABLET (FP) PO SCH (09:31)
[2018-11-30] MEDS: AMOX TR/POT CLAV 500MG/125MG TABLETS (FP) PO SCH (09:31)
[2018-11-30] MEDS: SEVELAMER CARBONATE 800 MG TAB (FP) PO SCH ×3 (09:32→17:16)
[2018-11-30] MEDS ORDERED: SODIUM CHLORIDE 250 ML IV PRN (09:37)
[2018-11-30 09:45] LABS: HEMATOCRIT 29.7 % (35.4-49); HEMOGLOBIN 9.6 GM/dL (11.7-16.9); MCH 30.5 pg (25.7-33.7); MCHC 32.2 g/dl (32.0-35.9); MEAN CELL VOLUME 94.7 fl (80-96); MEAN PLT VOLUME 8.9 fl (7.5-11.1); PLATELET COUNT 289 K/MM3 (134-434); RBC 3.14 M/mm3 (4.00-5.60); RDW 17.9 % (11.9-15.9); WHITE BLOOD COUNT 9.1 K/mm3 (4.0-10.0)
[2018-11-30] MEDS ORDERED: EPOETIN ALFA 10,000 UNIT/1 ML VIAL IVPUSH ONE (09:45)
[2018-11-30 09:49] LABS: ANION GAP 7 MMOL/L (8-16); BLOOD UREA NITROGEN 18 mg/dL (7-18); CALCIUM 7.8 mg/dL (8.5-10.1); CHLORIDE 106 mmol/L (98-107); CO2 30 mmol/L (21-32); CREATININE 4.3 mg/dL (0.55-1.3); GLUCOSE,RANDOM 72 mg/dL (74-106); POTASSIUM 3.7 mmol/L (3.5-5.1); SODIUM 142 mmol/L (136-145)
--- NOTE | 2018-11-30 11:59 | PN ---
Progress Note, Physician History of Present Illness: MORE ALERT TODAY NO COMPLAINTS AFEBRILE WBC WNL BC(11/22) NO GROWTH VANCOMYCIN REDOSED YESTERDAY DAY # - Current Medication List Current Medications: Active Medications Acetaminophen (Tylenol -) 650 mg PO Q6H PRN PRN Reason: PAIN LEVEL 1-5 Last Admin: 11/29/18 09:06 Dose: 650 mg Albuterol Sulfate (Ventolin 0.083% Nebulizer Soln -) 1 amp NEB Q4H PRN PRN Reason: SHORT OF BREATH/WHEEZING Albuterol/Ipratropium (Duoneb -) 1 amp NEB RQID [facility] Last Admin: 11/30/18 11:10 Dose: Not Given Amoxicillin/Clavulanate Potassium (Augmentin - 500mg Tablet) 1 tab PO DAILY [facility] Last Admin: 11/30/18 09:31 Dose: 1 tab Apixaban (Eliquis -) 5 mg PO BID [facility] Last Admin: 11/30/18 09:31 Dose: 5 mg Atorvastatin Calcium (Lipitor -) 20 mg PO HS [facility] Last Admin: 11/29/18 23:15 Dose: 20 mg Chlorhexidine Gluconate (Hibiclens For Decolonization -) 1 applic TP [facility] Last Admin: 11/29/18 23:15 Dose: 1 applic Clopidogrel Bisulfate (Plavix -) 75 mg PO DAILY [facility] Last Admin: 11/30/18 09:31 Dose: 75 mg Collagenase (Santyl -) 1 applic TP DAILY [facility]; Protocol Last Admin: 11/29/18 09:27 Dose: 1 applic Dextrose (D50w (Vial) -) 25 gm IVPUSH PRN PRN PRN Reason: HYPOGLYCEMIA Escitalopram Oxalate (Lexapro -) 10 mg PO DAILY [facility] Last Admin: 11/30/18 09:31 Dose: 10 mg Midodrine (Proamatine -) 10 mg PO MoWeFr@0800 [facility] Last Admin: 11/30/18 09:31 Dose: 10 mg Multi-Ingredient Ointment (Zinc Oxide 20% Topical Oint) 1 gm TP BID [facility] Last Admin: 11/29/18 23:16 Dose: 1 applic Pantoprazole Sodium (Protonix Iv) 40 mg IVPUSH DAILY [facility] Last Admin: 11/30/18 09:31 Dose: 40 mg Sevelamer Carbonate (Renvela -) 1,600 mg PO TIDCM [facility] Last Admin: 11/30/18 09:32 Dose: 1,600 mg Tamsulosin HCl (Flomax -) 0.4 mg PO HS [facility] Last Admin: 11/29/18 23:15 Dose: 0.4 mg - Objective Vital Signs: Vital Signs Temperature 98.5 F 11/30/18 10:00 Pulse Rate 93 H 11/30/18 11:35 Respiratory Rate 18 11/30/18 11:35 Blood Pressure 92/47 L 11/30/18 11:35 O2 Sat by Pulse Oximetry (%) 98 11/30/18 09:00 Constitutional: Yes: No Distress Eyes: Yes: Conjunctiva Clear Cardiovascular: Yes: Regular Rate and Rhythm, S1, S2 Respiratory: Yes: CTA Bilaterally Gastrointestinal: Yes: Normal Bowel Sounds, Soft. No: Tenderness Labs: CBC, BMP 11/30/18 06:30 11/30/18 06:30 INR, PTT INR 1.32 (0.83-1.09) H 11/21/18 21:03 Assessment/Plan S/P RESPIRATORY FAILURE HX MRSA BACTEREMIA ESRD CONTINUE PO AUGMENTIN REDOSED VANCOMYCIN 11/29/18 CHECK LEVEL
--- NOTE | 2018-11-30 12:57 | PN ---
Progress Note, Physician History of Present Illness: Pt seen and examined at bedside. He is tolerating HD. He denies shortness of breath. Mental status appears to be improved. - Current Medication List Current Medications: Active Medications Acetaminophen (Tylenol -) 650 mg PO Q6H PRN PRN Reason: PAIN LEVEL 1-5 Last Admin: 11/29/18 09:06 Dose: 650 mg Albuterol Sulfate (Ventolin 0.083% Nebulizer Soln -) 1 amp NEB Q4H PRN PRN Reason: SHORT OF BREATH/WHEEZING Albuterol/Ipratropium (Duoneb -) 1 amp NEB RQID [facility] Last Admin: 11/30/18 11:10 Dose: Not Given Amoxicillin/Clavulanate Potassium (Augmentin - 500mg Tablet) 1 tab PO DAILY [facility] Last Admin: 11/30/18 09:31 Dose: 1 tab Apixaban (Eliquis -) 5 mg PO BID [facility] Last Admin: 11/30/18 09:31 Dose: 5 mg Atorvastatin Calcium (Lipitor -) 20 mg PO HS [facility] Last Admin: 11/29/18 23:15 Dose: 20 mg Chlorhexidine Gluconate (Hibiclens For Decolonization -) 1 applic TP HS [facility] Last Admin: 11/29/18 23:15 Dose: 1 applic Clopidogrel Bisulfate (Plavix -) 75 mg PO DAILY [facility] Last Admin: 11/30/18 09:31 Dose: 75 mg Collagenase (Santyl -) 1 applic TP DAILY [facility]; Protocol Last Admin: 11/29/18 09:27 Dose: 1 applic Dextrose (D50w (Vial) -) 25 gm IVPUSH PRN PRN PRN Reason: HYPOGLYCEMIA Escitalopram Oxalate (Lexapro -) 10 mg PO DAILY [facility] Last Admin: 11/30/18 09:31 Dose: 10 mg Midodrine (Proamatine -) 10 mg PO MoWeFr@0800 [facility] Last Admin: 11/30/18 09:31 Dose: 10 mg Multi-Ingredient Ointment (Zinc Oxide 20% Topical Oint) 1 gm TP BID [facility] Last Admin: 11/29/18 23:16 Dose: 1 applic Pantoprazole Sodium (Protonix Iv) 40 mg IVPUSH DAILY [facility] Last Admin: 11/30/18 09:31 Dose: 40 mg Sevelamer Carbonate (Renvela -) 1,600 mg PO TIDCM [facility] Last Admin: 11/30/18 09:32 Dose: 1,600 mg Tamsulosin HCl (Flomax -) 0.4 mg PO HS [facility] Last Admin: 11/29/18 23:15 Dose: 0.4 mg - Objective Vital Signs: Vital Signs Temperature 98.5 F 11/30/18 10:00 Pulse Rate 100 H 11/30/18 12:35 Respiratory Rate 18 11/30/18 12:35 Blood Pressure 96/56 L 11/30/18 12:35 O2 Sat by Pulse Oximetry (%) 98 11/30/18 09:00 Constitutional: Yes: Calm Eyes: Yes: Conjunctiva Clear HENT: Yes: Atraumatic Neck: Yes: Supple Cardiovascular: Yes: S1, S2 Respiratory: Yes: CTA Bilaterally Gastrointestinal: Yes: Soft Genitourinary: Yes: Incontinence Musculoskeletal: Yes: Muscle Weakness Edema: No Wound/Incision: Yes: Dressing Dry and Intact Neurological: Yes: Confusion Labs: CBC, BMP 11/30/18 06:30 11/30/18 06:30 INR, PTT INR 1.32 (0.83-1.09) H 11/21/18 21:03 Problem List - Problems (1) ESRD (end stage renal disease) Code(s): N18.6 - END STAGE RENAL DISEASE (2) Anemia Code(s): D64.9 - ANEMIA, UNSPECIFIED Assessment/Plan Current Medications Generic Name Dose Route Start Last Admin Trade Name Freq PRN Reason Stop Dose Admin Acetaminophen 650 mg 11/27/18 19:30 11/29/18 09:06 Tylenol - PO 650 mg Q6H PRN Administration PAIN LEVEL 1-5 Albuterol Sulfate 1 amp 11/27/18 19:30 Ventolin 0.083% Nebulizer Soln - NEB Q4H PRN SHORT OF BREATH/WHEEZING Albuterol/Ipratropium 1 amp 11/27/18 20:00 11/30/18 11:10 Duoneb - NEB Not Given RQID [facility] Amoxicillin/Clavulanate Potassium 1 tab 11/29/18 16:15 11/30/18 09:31 Augmentin - 500mg Tablet PO 1 tab DAILY [facility]ANTELL Administration Apixaban 5 mg 11/27/18 22:00 11/30/18 09:31 Eliquis - PO 5 mg BID [facility] Administration Atorvastatin Calcium 20 mg 11/27/18 22:00 11/29/18 23:15 Lipitor - PO 20 mg HS [facility] Administration Chlorhexidine Gluconate 1 applic 11/27/18 22:00 11/29/18 23:15 Hibiclens For Decolonization - TP 1 applic HS [facility]TE[facility] Administration Clopidogrel Bisulfate 75 mg 11/28/18 10:00 11/30/18 09:31 Plavix - PO 75 mg DAILY [facility] Administration Collagenase 1 applic 11/28/18 10:00 11/29/18 09:27 Santyl - TP 1 applic DAILY [facility] Administration Protocol Dextrose 25 gm 11/27/18 19:30 D50w (Vial) - IVPUSH PRN PRN HYPOGLYCEMIA Escitalopram Oxalate 10 mg 11/28/18 10:00 11/30/18 09:31 Lexapro - PO 10 mg DAILY [facility] Administration Midodrine 10 mg 11/28/18 08:00 11/30/18 09:31 Proamatine - PO 10 mg MoWeFr@0800 [facility] Administration Multi-Ingredient Ointment 1 gm 11/27/18 22:00 11/29/18 23:16 Zinc Oxide 20% Topical Oint TP 1 applic BID [facility] Administration Pantoprazole Sodium 40 mg 11/28/18 10:00 11/30/18 09:31 Protonix Iv IVPUSH 40 mg DAILY [facility] Administration Sevelamer Carbonate 1,600 mg 11/28/18 08:00 11/30/18 09:32 Renvela - PO 1,600 mg TIDCM [facility]ANTELL Administration Tamsulosin HCl 0.4 mg 11/27/18 22:00 11/29/18 23:15 Flomax - PO 0.4 mg HS [facility]ANTELL Administration Impression 1. ESRD 2. acute rep failure 3. DM 4. hyperlipidemia 5. HTN 6. gout 7. proteinuria 8. hypotension/shock 9. sepsis Plan - HD today - pt has permacath - monitor bp - follow cortisol level - 3 k bath on HD - epogen for anemia
--- NOTE | 2018-11-30 13:35 | PN ---
Progress Note, Physician Chief Complaint: ESRD Anemia Respiratory Failure, Acute History of Present Illness: Previous notes and events reviewed awake and alert NAD Abdominal US reviewed - Current Medication List Current Medications: Active Medications Acetaminophen (Tylenol -) 650 mg PO Q6H PRN PRN Reason: PAIN LEVEL 1-5 Last Admin: 11/29/18 09:06 Dose: 650 mg Albuterol Sulfate (Ventolin 0.083% Nebulizer Soln -) 1 amp NEB Q4H PRN PRN Reason: SHORT OF BREATH/WHEEZING Albuterol/Ipratropium (Duoneb -) 1 amp NEB RQID [facility] Last Admin: 11/30/18 11:10 Dose: Not Given Amoxicillin/Clavulanate Potassium (Augmentin - 500mg Tablet) 1 tab PO DAILY [facility] Last Admin: 11/30/18 09:31 Dose: 1 tab Apixaban (Eliquis -) 5 mg PO BID [facility] Last Admin: 11/30/18 09:31 Dose: 5 mg Atorvastatin Calcium (Lipitor -) 20 mg PO HS [facility] Last Admin: 11/29/18 23:15 Dose: 20 mg Chlorhexidine Gluconate (Hibiclens For Decolonization -) 1 applic TP [facility] Last Admin: 11/29/18 23:15 Dose: 1 applic Clopidogrel Bisulfate (Plavix -) 75 mg PO DAILY [facility] Last Admin: 11/30/18 09:31 Dose: 75 mg Collagenase (Santyl -) 1 applic TP DAILY [facility]; Protocol Last Admin: 11/29/18 09:27 Dose: 1 applic Dextrose (D50w (Vial) -) 25 gm IVPUSH PRN PRN PRN Reason: HYPOGLYCEMIA Escitalopram Oxalate (Lexapro -) 10 mg PO DAILY [facility] Last Admin: 11/30/18 09:31 Dose: 10 mg Midodrine (Proamatine -) 10 mg PO MoWeFr@0800 [facility] Last Admin: 11/30/18 09:31 Dose: 10 mg Multi-Ingredient Ointment (Zinc Oxide 20% Topical Oint) 1 gm TP BID [facility] Last Admin: 11/29/18 23:16 Dose: 1 applic Pantoprazole Sodium (Protonix Iv) 40 mg IVPUSH DAILY [facility] Last Admin: 11/30/18 09:31 Dose: 40 mg Sevelamer Carbonate (Renvela -) 1,600 mg PO TIDCM [facility] Last Admin: 11/30/18 09:32 Dose: 1,600 mg Tamsulosin HCl (Flomax -) 0.4 mg PO HS [facility] Last Admin: 11/29/18 23:15 Dose: 0.4 mg - Objective Vital Signs: Vital Signs Temperature 98.5 F 11/30/18 10:00 Pulse Rate 81 11/30/18 13:10 Respiratory Rate 18 11/30/18 13:10 Blood Pressure 110/55 L 11/30/18 13:10 O2 Sat by Pulse Oximetry (%) 98 11/30/18 09:00 Constitutional: Yes: No Distress, Calm Eyes: Yes: Conjunctiva Clear HENT: Yes: Atraumatic Cardiovascular: Yes: Regular Rate and Rhythm Respiratory: Yes: Regular, CTA Bilaterally Gastrointestinal: Yes: Normal Bowel Sounds, Soft, Tenderness, Epigastrium Genitourinary: Yes: Incontinence Musculoskeletal: Yes: Muscle Weakness Extremities: Yes: WNL Edema: No Wound/Incision: Yes: Dressing Dry and Intact Neurological: Yes: Alert, Pre-Existing Deficit Psychiatric: Yes: Alert Labs: CBC, BMP 11/30/18 06:30 11/30/18 06:30 INR, PTT INR 1.32 (0.83-1.09) H 11/21/18 21:03 Microbiology 11/22/18 00:40 Blood - Peripheral Venous Blood Culture - Final NO GROWTH AFTER 5 DAYS INCUBATION 11/22/18 00:40 Blood - Peripheral Venous Blood Culture - Final NO GROWTH AFTER 5 DAYS INCUBATION - ....Imaging Ultrasound: Report Reviewed Problem List - Problems (1) ESRD (end stage renal disease) Assessment/Plan: -nephrology on board -permacat R upper chest -continue with HD as scheduled -monitor BUN/Cr 184.3 Code(s): N18.6 - END STAGE RENAL DISEASE (2) Hypotension Assessment/Plan: -midrodine on -- Code(s): I95.9 - HYPOTENSION, UNSPECIFIED (3) Pressure ulcer Assessment/Plan: -daily dressing changes Code(s): L89.90 - PRESSURE ULCER OF UNSPECIFIED SITE, UNSPECIFIED STAGE (4) A-fib Assessment/Plan: -on Eliquis Code(s): I48.91 - UNSPECIFIED ATRIAL FIBRILLATION (5) Anemia Assessment/Plan: -epogen on days of HD -monitor H/H daily -current Hg 9.6 Code(s): D64.9 - ANEMIA, UNSPECIFIED (6) MRSA (methicillin resistant staph aureus) culture positive Assessment/Plan: -continue contact precautions Code(s): Z22.322 - CARRIER OR SUSPECTED CARRIER OF METHICILLIN RESIS STAPH (7) Sepsis Assessment/Plan: -ID on board -continue with IV vanco and PO augmentin -current vanco trough 17.5--continue to monitor -currently afebrile -no leukocytosis with WBC 9.1 Code(s): A41.9 - SEPSIS, UNSPECIFIED ORGANISM Qualifiers: Sepsis type: sepsis due to unspecified organism Qualified Code(s): A41.9 - Sepsis, unspecified organism (8) Toxic metabolic encephalopathy Code(s): G92 - TOXIC ENCEPHALOPATHY (9) Wound, open, foot Assessment/Plan: -daily dressing changes -podiatry on board Code(s): S91.309A - UNSPECIFIED OPEN WOUND, UNSPECIFIED FOOT, INITIAL ENCOUNTER Qualifiers: Laterality: right (10) Abdominal pain Assessment/Plan: -Abd US performed and shows multiple gallstones with borderline thickening of its wall, no pericholecystic free fluid present, correlate clinically to R/O acute cholecystitis -reconsult GI Code(s): R10.9 - UNSPECIFIED ABDOMINAL PAIN
[2018-11-30] MEDS: COLLAGENASE CLOSTRIDIUM HIST. 30 GRAMS TUBE TP SCH (14:30)
[2018-11-30] MEDS: ZINC OXIDE 20% TOPICAL OINTMENT 454 GM JAR TP SCH ×2 (14:31→23:02)
[2018-11-30 14:34] VITALS: BMI 25.9
--- NOTE | 2018-11-30 16:58 | PN ---
Progress Note, Physician History of Present Illness: PULMONARY ALERT,NO DISTRESS,-C/O SOB,-CP - Current Medication List Current Medications: Active Medications Acetaminophen (Tylenol -) 650 mg PO Q6H PRN PRN Reason: PAIN LEVEL 1-5 Last Admin: 11/29/18 09:06 Dose: 650 mg Albuterol Sulfate (Ventolin 0.083% Nebulizer Soln -) 1 amp NEB Q4H PRN PRN Reason: SHORT OF BREATH/WHEEZING Albuterol/Ipratropium (Duoneb -) 1 amp NEB RQID [facility] Last Admin: 11/30/18 15:04 Dose: Not Given Amoxicillin/Clavulanate Potassium (Augmentin - 500mg Tablet) 1 tab PO DAILY [facility] Last Admin: 11/30/18 09:31 Dose: 1 tab Apixaban (Eliquis -) 5 mg PO BID [facility] Last Admin: 11/30/18 09:31 Dose: 5 mg Atorvastatin Calcium (Lipitor -) 20 mg PO HS [facility] Last Admin: 11/29/18 23:15 Dose: 20 mg Chlorhexidine Gluconate (Hibiclens For Decolonization -) 1 applic TP [facility] Last Admin: 11/29/18 23:15 Dose: 1 applic Clopidogrel Bisulfate (Plavix -) 75 mg PO DAILY [facility] Last Admin: 11/30/18 09:31 Dose: 75 mg Collagenase (Santyl -) 1 applic TP DAILY [facility]; Protocol Last Admin: 11/30/18 14:30 Dose: 1 applic Dextrose (D50w (Vial) -) 25 gm IVPUSH PRN PRN PRN Reason: HYPOGLYCEMIA Escitalopram Oxalate (Lexapro -) 10 mg PO DAILY [facility] Last Admin: 11/30/18 09:31 Dose: 10 mg Midodrine (Proamatine -) 10 mg PO MoWeFr@0800 [facility] Last Admin: 11/30/18 09:31 Dose: 10 mg Multi-Ingredient Ointment (Zinc Oxide 20% Topical Oint) 1 gm TP BID [facility] Last Admin: 11/30/18 14:31 Dose: 1 applic Pantoprazole Sodium (Protonix Iv) 40 mg IVPUSH DAILY [facility] Last Admin: 11/30/18 09:31 Dose: 40 mg Sevelamer Carbonate (Renvela -) 1,600 mg PO TIDCM [facility] Last Admin: 11/30/18 14:31 Dose: Not Given Tamsulosin HCl (Flomax -) 0.4 mg PO HS [facility] Last Admin: 11/29/18 23:15 Dose: 0.4 mg - Objective Vital Signs: Vital Signs Temperature 98.5 F 11/30/18 14:30 Pulse Rate 97 H 11/30/18 14:30 Respiratory Rate 20 11/30/18 14:30 Blood Pressure 100/53 L 11/30/18 14:30 O2 Sat by Pulse Oximetry (%) 98 11/30/18 09:00 Constitutional: Yes: Well Nourished, Calm Eyes: Yes: WNL HENT: Yes: WNL Neck: Yes: WNL Cardiovascular: Yes: Pulse Irregular, S1, S2 Respiratory: Yes: Diminished Gastrointestinal: Yes: Normal Bowel Sounds, Soft Extremities: Yes: WNL Edema: No Labs: CBC, BMP 11/30/18 06:30 11/30/18 06:30 INR, PTT INR 1.32 (0.83-1.09) H 11/21/18 21:03 Problem List - Problems (1) Acute hypoxemic respiratory failure Code(s): J96.01 - ACUTE RESPIRATORY FAILURE WITH HYPOXIA (2) ESRD (end stage renal disease) Code(s): N18.6 - END STAGE RENAL DISEASE (3) Elevated troponin Code(s): R74.8 - ABNORMAL LEVELS OF OTHER SERUM ENZYMES (4) A-fib Code(s): I48.91 - UNSPECIFIED ATRIAL FIBRILLATION (5) Anemia Code(s): D64.9 - ANEMIA, UNSPECIFIED (6) CKD (chronic kidney disease) Code(s): N18.9 - CHRONIC KIDNEY DISEASE, UNSPECIFIED (7) Diabetes Code(s): E11.9 - TYPE 2 DIABETES MELLITUS WITHOUT COMPLICATIONS Qualifiers: Diabetes mellitus type: type 2 (8) HTN (hypertension) Code(s): I10 - ESSENTIAL (PRIMARY) HYPERTENSION Qualifiers: Hypertension type: essential hypertension Qualified Code(s): I10 - Essential (primary) hypertension Assessment/Plan ASSESSMENT AND PLAN: s/p Acute Respiratory Failure Resolved RUL Atelectasis Pneumonia ESRD on HD Atrial Fibrillation DM HTN HLD h/o CVA COPD - continue antibiotics - HD per renal - rate control - continue anticoagulation - O2 to keep Spo2 >90% - PO as tolerated - aspiration precautions DR GODINEZ
[2018-11-30] MEDS ORDERED: PT OWN MED DRAWER 7, Y5N ONE (21:21)
[2018-11-30] MEDS: ATORVASTATIN CA 20 MG TABLET (FP) PO SCH (23:03)
[2018-11-30] MEDS: TAMSULOSIN HCL 0.4 MG CAP PO SCH (23:03)
[2018-11-30] MEDS: CHLORHEXIDINE GLUCONATE 4% CLEANSER FOR DECOLONIZATION TP SCH (23:03)
--- NOTE | 2018-12-01 04:29 | CON.GI ---
Consult Consult Specialty:: GI Referred by:: Aubree Robins Reason for Consultation:: Gallstones seen on sonogram - History of Present Illness Chief Complaint: 73 y.o. M, ESRD, dementia, pulled out dialysis catheter and was admitted in respiratory failure. Pt had sonogram of abdomen among other investigations; gallstones were seen along with slight thickening of the gallbladder wall. 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 Cardio/Vascular: Yes: AFIB, CAD (PVD), CHF, HTN, Hyperlipdemia Pulmonary: Yes: COPD Renal/: Yes: Renal Failure, Hemodialysis Endocrine: Yes: Diabetes Mellitus - Alcohol/Substance Use Hx Alcohol Use: No - Smoking History Smoking history: Unknown if ever smoked Have you smoked in the past 12 months: No - Social History Usual Living Arrangement: Residential Home Medications - Allergies Allergies/Adverse Reactions: Allergies Allergy/AdvReac Type Severity Reaction Status Date / Time watermelon Allergy Unknown Verified 10/29/18 06:33 melon Allergy Verified 10/29/18 06:33 No Known Drug Allergies Allergy Verified 10/29/18 06:34 - Home Medications Home Medications: Ambulatory Orders Albuterol 2.5/Ipratropium 0.5 [Duoneb -] 1 amp NEB Q6H PRN #0 amp 07/12/17 Allopurinol [Zyloprim -] 100 mg PO DAILY tablet 07/12/17 Atorvastatin Ca [Lipitor] 20 mg PO HS tablet 07/12/17 Clopidogrel Bisulfate [Plavix -] 75 mg PO DAILY tablet 07/12/17 Collagenase Clostridium Hist. [Santyl -] 250 unit TP DAILY 08/31/18 Lisinopril 10 mg PO DAILY 08/31/18 Collagenase Clostridium Hist. [Santyl -] 1 applic TP DAILY tube 09/06/18 Albuterol Sulfate [Proair Hfa] 2 puff IH Q6H PRN 10/29/18 Escitalopram Oxalate [Lexapro -] 10 mg PO DAILY 10/29/18 Folic Acid/Vit B Complex and C [Dialyvite Tablet] 1 each PO DAILY 10/29/18 Insulin Lispro [Humalog Kwikpen U-100] 0 unit SQ ACHS 10/29/18 Midodrine HCl 10 mg PO MOWEFR 10/29/18 Sevelamer Carbonate [Renvela -] 1,600 mg PO TID 10/29/18 Tamsulosin HCl [Flomax] 0.4 mg PO HS 10/29/18 Zinc Oxide 20% Topical Oint 454 gm NR BID 10/29/18 Ceftaroline Fosamil Acetate [Teflaro (Restricted To Id)] 200 mg IVPB BID vial 11/17/18 Insulin Sliding Scale [Novolog Vial Sliding Scale -] 1 vial SQ TIDAC #1 vial Apixaban [Eliquis -] 5 mg PO BID #30 tablet MDD 2 11/19/18 Vancomycin 1 Gram (Pre-Docked) [Vancomycin (Pre-Docked)] 1,000 mg IVPB Q2D #14 bag 11/19/18 Physical Exam-GI Vital Signs: Vital Signs Temperature 98.1 F 11/30/18 22:00 Pulse Rate 89 11/30/18 22:00 Respiratory Rate 20 11/30/18 22:00 Blood Pressure 121/69 11/30/18 22:00 O2 Sat by Pulse Oximetry (%) 96 11/30/18 21:00 Gastrointestinal Inspection: Yes: WNL (Specifically he has normal bowel sounds and no abdominal tenderness. No discomfort on deep palpation in the RUQ.) Labs: CBC, BMP 11/30/18 06:30 11/30/18 06:30 INR, PTT INR 1.32 (0.83-1.09) H 11/21/18 21:03 Imaging - Results Ultrasound: Report Reviewed Problem List - Problems (1) Gallstone Code(s): K80.20 - CALCULUS OF GALLBLADDER W/O CHOLECYSTITIS W/O OBSTRUCTION Assessment/Plan Asymptomatic gallstone disease. Gallstones are present in approximately 15% of the [place] adult population and the incidence increases with age. He has normal liver chemistries, no R-sided discomfort, no vomiting, no history of anything that resembles biliary colic. No further workup or investigation of the biliary tract is indicated unless he develops symptoms referable to that area.
[2018-12-01 07:26] LABS: HEMATOCRIT 29.1 % (35.4-49); HEMOGLOBIN 9.3 GM/dL (11.7-16.9); MCH 30.1 pg (25.7-33.7); MEAN CELL VOLUME 94.1 fl (80-96); MEAN PLT VOLUME 8.3 fl (7.5-11.1); PLATELET COUNT 294 K/MM3 (134-434); RDW 18.1 % (11.9-15.9); WHITE BLOOD COUNT 9.2 K/mm3 (4.0-10.0)
--- NOTE | 2018-12-01 07:27 | PN ---
Progress Note (short form) - Note Progress Note: RENAL Pt is awake and alert comfortable had hd yesterday but does not remember Last Vital Signs Temp Pulse Resp BP Pulse Ox 98.1 F 89 20 121/69 96 11/30/18 22:00 11/30/18 22:00 11/30/18 22:00 11/30/18 22:00 11/30/18 21:00 lungs clear cvs s1s2 rr abd soft ext no edema, has an ulcer on left heel neuro awake, responds to questions Current Medications Generic Name Dose Route Start Last Admin Trade Name Freq PRN Reason Stop Dose Admin Acetaminophen 650 mg 11/27/18 19:30 11/29/18 09:06 Tylenol - PO 650 mg Q6H PRN Administration PAIN LEVEL 1-5 Albuterol Sulfate 1 amp 11/27/18 19:30 Ventolin 0.083% Nebulizer Soln - NEB Q4H PRN SHORT OF BREATH/WHEEZING Albuterol/Ipratropium 1 amp 11/27/18 20:00 11/30/18 21:20 Duoneb - NEB 1 amp RQID [facility]TELL Administration Amoxicillin/Clavulanate Potassium 1 tab 11/29/18 16:15 11/30/18 09:31 Augmentin - 500mg Tablet PO 1 tab DAILY [facility] Administration Apixaban 5 mg 11/27/18 22:00 11/30/18 23:03 Eliquis - PO 5 mg BID [facility] Administration Atorvastatin Calcium 20 mg 11/27/18 22:00 11/30/18 23:03 Lipitor - PO 20 mg HS [facility]ANTELL Administration Chlorhexidine Gluconate 1 applic 11/27/18 22:00 11/30/18 23:03 Hibiclens For Decolonization - TP 1 applic HS [facility] Administration Clopidogrel Bisulfate 75 mg 11/28/18 10:00 11/30/18 09:31 Plavix - PO 75 mg DAILY [facility] Administration Collagenase 1 applic 11/28/18 10:00 11/30/18 14:30 Santyl - TP 1 applic DAILY [facility] Administration Protocol Dextrose 25 gm 11/27/18 19:30 D50w (Vial) - IVPUSH PRN PRN HYPOGLYCEMIA Escitalopram Oxalate 10 mg 11/28/18 10:00 11/30/18 09:31 Lexapro - PO 10 mg DAILY [facility] Administration Midodrine 10 mg 11/28/18 08:00 11/30/18 09:31 Proamatine - PO 10 mg MoWeFr@0800 [facility] Administration Multi-Ingredient Ointment 1 gm 11/27/18 22:00 11/30/18 23:02 Zinc Oxide 20% Topical Oint TP 1 applic BID [facility] Administration Pantoprazole Sodium 40 mg 11/28/18 10:00 11/30/18 09:31 Protonix Iv IVPUSH 40 mg DAILY [facility] Administration Sevelamer Carbonate 1,600 mg 11/28/18 08:00 11/30/18 17:16 Renvela - PO 1,600 mg TIDCM [facility] Administration Tamsulosin HCl 0.4 mg 11/27/18 22:00 11/30/18 23:03 Flomax - PO 0.4 mg HS CHANTELL Administration Impression 1. ESRD 2. acute rep failure 3. DM 4. hyperlipidemia 5. HTN 6. gout 7. proteinuria 8. hypotension/shock 9. sepsis Plan was dialyzed yesterday can be discharged to [facility] where he can get vanco on HD f/u todays blood tests epogen can help with his blood pressure MV
[2018-12-01] MEDS: ALBUTEROL SO4 2.5/IPRATROPIUM 0.5 INH SOL 3 ML VIAL.NEB. NEB SCH ×4 (07:32→21:03)
[2018-12-01 08:11] LABS: ALBUMIN 1.9 g/dl (3.4-5.0); ALK PHOS 115 U/L (45-117); ANION GAP 6 MMOL/L (8-16); BILIRUBIN,TOTAL 0.2 mg/dL (0.2-1); BLOOD UREA NITROGEN 13 mg/dL (7-18); CALCIUM 8.2 mg/dL (8.5-10.1); CHLORIDE 103 mmol/L (98-107); CO2 31 mmol/L (21-32); CREATININE 3.6 mg/dL (0.55-1.3); GLUCOSE,RANDOM 82 mg/dL (74-106); POTASSIUM 3.5 mmol/L (3.5-5.1); SGOT/AST 24 U/L (15-37); SGPT/ALT < 6 U/L (13-61); SODIUM 140 mmol/L (136-145); TOT PROT 6.8 g/dl (6.4-8.2)
[2018-12-01] MEDS: PANTOPRAZOLE SODIUM 40 MG VIAL IVPUSH SCH (09:21)
[2018-12-01] MEDS: APIXABAN 5 MG TABLET PO SCH ×2 (09:21→23:08)
[2018-12-01] MEDS: ESCITALOPRAM OXALATE 10 MG TABLET (FP) PO SCH (09:23)
[2018-12-01] MEDS: CLOPIDOGREL BISULFATE 75 MG TABLET (FP) PO SCH (09:23)
[2018-12-01] MEDS: AMOX TR/POT CLAV 500MG/125MG TABLETS (FP) PO SCH (09:23)
[2018-12-01] MEDS: SEVELAMER CARBONATE 800 MG TAB (FP) PO SCH ×3 (09:24→16:39)
[2018-12-01] MEDS: COLLAGENASE CLOSTRIDIUM HIST. 30 GRAMS TUBE TP SCH (09:25)
[2018-12-01] MEDS: ZINC OXIDE 20% TOPICAL OINTMENT 454 GM JAR TP SCH ×2 (09:26→23:08)
[2018-12-01] MEDS: ACETAMINOPHEN 325 MG TABLET (FP) PO PRN (09:27)
--- NOTE | 2018-12-01 12:34 | PN ---
Progress Note, Physician - Current Medication List Current Medications: Active Medications Acetaminophen (Tylenol -) 650 mg PO Q6H PRN PRN Reason: PAIN LEVEL 1-5 Last Admin: 12/01/18 09:27 Dose: 650 mg Albuterol Sulfate (Ventolin 0.083% Nebulizer Soln -) 1 amp NEB Q4H PRN PRN Reason: SHORT OF BREATH/WHEEZING Albuterol/Ipratropium (Duoneb -) 1 amp NEB RQID [facility] Last Admin: 12/01/18 11:36 Dose: 1 amp Amoxicillin/Clavulanate Potassium (Augmentin - 500mg Tablet) 1 tab PO DAILY [facility] Last Admin: 12/01/18 09:23 Dose: 1 tab Apixaban (Eliquis -) 5 mg PO BID [facility] Last Admin: 12/01/18 09:21 Dose: 5 mg Atorvastatin Calcium (Lipitor -) 20 mg PO [facility] Last Admin: 11/30/18 23:03 Dose: 20 mg Chlorhexidine Gluconate (Hibiclens For Decolonization -) 1 applic TP [facility] Last Admin: 11/30/18 23:03 Dose: 1 applic Clopidogrel Bisulfate (Plavix -) 75 mg PO DAILY [facility] Last Admin: 12/01/18 09:23 Dose: 75 mg Collagenase (Santyl -) 1 applic TP DAILY [facility]; Protocol Last Admin: 12/01/18 09:25 Dose: 1 applic Dextrose (D50w (Vial) -) 25 gm IVPUSH PRN PRN PRN Reason: HYPOGLYCEMIA Escitalopram Oxalate (Lexapro -) 10 mg PO DAILY [facility] Last Admin: 12/01/18 09:23 Dose: 10 mg Midodrine (Proamatine -) 10 mg PO MoWeFr@0800 [facility] Last Admin: 11/30/18 09:31 Dose: 10 mg Multi-Ingredient Ointment (Zinc Oxide 20% Topical Oint) 1 gm TP BID [facility] Last Admin: 12/01/18 09:26 Dose: 1 applic Pantoprazole Sodium (Protonix Iv) 40 mg IVPUSH DAILY [facility] Last Admin: 12/01/18 09:21 Dose: 40 mg Sevelamer Carbonate (Renvela -) 1,600 mg PO TIDCM [facility] Last Admin: 12/01/18 11:55 Dose: 1,600 mg Tamsulosin HCl (Flomax -) 0.4 mg PO [facility] Last Admin: 11/30/18 23:03 Dose: 0.4 mg - Objective Vital Signs: Vital Signs Temperature 98.9 F 12/01/18 08:25 Pulse Rate 92 H 12/01/18 08:25 Respiratory Rate 20 12/01/18 09:00 Blood Pressure 132/65 12/01/18 08:25 O2 Sat by Pulse Oximetry (%) 100 12/01/18 09:00 Cardiovascular: Yes: S1, S2 Respiratory: Yes: Regular, CTA Bilaterally Gastrointestinal: Yes: Normal Bowel Sounds, Soft Labs: CBC, BMP 12/01/18 06:30 12/01/18 06:30 INR, PTT INR 1.32 (0.83-1.09) H 11/21/18 21:03 Assessment/Plan - Problems (1) ESRD (end stage renal disease) Assessment/Plan: -nephrology on board -permacath R upper chest -continue with HD as scheduled -monitor BUN/Cr 18/4.3 Code(s): N18.6 - END STAGE RENAL DISEASE (2) Hypotension Assessment/Plan: -midrodine on -- Code(s): I95.9 - HYPOTENSION, UNSPECIFIED (3) Pressure ulcer Assessment/Plan: -daily dressing changes Code(s): L89.90 - PRESSURE ULCER OF UNSPECIFIED SITE, UNSPECIFIED STAGE (4) A-fib Assessment/Plan: -on Eliquis Code(s): I48.91 - UNSPECIFIED ATRIAL FIBRILLATION (5) Anemia Assessment/Plan: -epogen on days of HD -monitor H/H daily -current Hg 9.6 Code(s): D64.9 - ANEMIA, UNSPECIFIED (6) MRSA (methicillin resistant staph aureus) culture positive Assessment/Plan: -continue contact precautions Code(s): Z22.322 - CARRIER OR SUSPECTED CARRIER OF METHICILLIN RESIS STAPH (7) Sepsis Assessment/Plan: -ID on board -continue with IV vanco and PO augmentin -current vanco trough 17.5--continue to monitor -currently afebrile -no leukocytosis with WBC 9.1 Code(s): A41.9 - SEPSIS, UNSPECIFIED ORGANISM Qualifiers: Sepsis type: sepsis due to unspecified organism Qualified Code(s): A41.9 - Sepsis, unspecified organism (8) Toxic metabolic encephalopathy Code(s): G92 - TOXIC ENCEPHALOPATHY (9) Wound, open, foot Assessment/Plan: -daily dressing changes -podiatry on board Code(s): S91.309A - UNSPECIFIED OPEN WOUND, UNSPECIFIED FOOT, INITIAL ENCOUNTER Qualifiers: Laterality: right (10) Abdominal pain Assessment/Plan: -Abd US performed and shows multiple gallstones with borderline thickening of its wall, no pericholecystic free fluid present, correlate clinically to R/O acute cholecystitis -reconsult GI Code(s): R10.9 - UNSPECIFIED ABDOMINAL PAIN
--- NOTE | 2018-12-01 14:35 | PN ---
Progress Note, Physician History of Present Illness: pulmonary alert,comfortable,no distress,-sob - Current Medication List Current Medications: Active Medications Acetaminophen (Tylenol -) 650 mg PO Q6H PRN PRN Reason: PAIN LEVEL 1-5 Last Admin: 12/01/18 09:27 Dose: 650 mg Albuterol Sulfate (Ventolin 0.083% Nebulizer Soln -) 1 amp NEB Q4H PRN PRN Reason: SHORT OF BREATH/WHEEZING Albuterol/Ipratropium (Duoneb -) 1 amp NEB RQID [facility] Last Admin: 12/01/18 11:36 Dose: 1 amp Amoxicillin/Clavulanate Potassium (Augmentin - 500mg Tablet) 1 tab PO DAILY [facility] Last Admin: 12/01/18 09:23 Dose: 1 tab Apixaban (Eliquis -) 5 mg PO BID [facility] Last Admin: 12/01/18 09:21 Dose: 5 mg Atorvastatin Calcium (Lipitor -) 20 mg PO HS [facility] Last Admin: 11/30/18 23:03 Dose: 20 mg Chlorhexidine Gluconate (Hibiclens For Decolonization -) 1 applic TP HS [facility] Last Admin: 11/30/18 23:03 Dose: 1 applic Clopidogrel Bisulfate (Plavix -) 75 mg PO DAILY [facility] Last Admin: 12/01/18 09:23 Dose: 75 mg Collagenase (Santyl -) 1 applic TP DAILY [facility]; Protocol Last Admin: 12/01/18 09:25 Dose: 1 applic Dextrose (D50w (Vial) -) 25 gm IVPUSH PRN PRN PRN Reason: HYPOGLYCEMIA Escitalopram Oxalate (Lexapro -) 10 mg PO DAILY [facility] Last Admin: 12/01/18 09:23 Dose: 10 mg Midodrine (Proamatine -) 10 mg PO MoWeFr@0800 [facility] Last Admin: 11/30/18 09:31 Dose: 10 mg Multi-Ingredient Ointment (Zinc Oxide 20% Topical Oint) 1 gm TP BID [facility] Last Admin: 12/01/18 09:26 Dose: 1 applic Pantoprazole Sodium (Protonix Iv) 40 mg IVPUSH DAILY [facility] Last Admin: 12/01/18 09:21 Dose: 40 mg Sevelamer Carbonate (Renvela -) 1,600 mg PO TIDCM [facility] Last Admin: 12/01/18 11:55 Dose: 1,600 mg Tamsulosin HCl (Flomax -) 0.4 mg PO HS [facility] Last Admin: 11/30/18 23:03 Dose: 0.4 mg - Objective Vital Signs: Vital Signs Temperature 98.8 F 12/01/18 13:44 Pulse Rate 90 12/01/18 13:44 Respiratory Rate 20 12/01/18 13:44 Blood Pressure 138/63 12/01/18 13:44 O2 Sat by Pulse Oximetry (%) 100 12/01/18 09:00 Constitutional: Yes: Well Nourished, Calm Eyes: Yes: WNL HENT: Yes: WNL Neck: Yes: WNL Cardiovascular: Yes: Pulse Irregular, S1, S2 Respiratory: Yes: CTA Bilaterally Gastrointestinal: Yes: Normal Bowel Sounds, Soft Extremities: Yes: WNL Edema: No Labs: CBC, BMP 12/01/18 06:30 12/01/18 06:30 INR, PTT INR 1.32 (0.83-1.09) H 11/21/18 21:03 Problem List - Problems (1) Acute hypoxemic respiratory failure Code(s): J96.01 - ACUTE RESPIRATORY FAILURE WITH HYPOXIA (2) ESRD (end stage renal disease) Code(s): N18.6 - END STAGE RENAL DISEASE (3) Elevated troponin Code(s): R74.8 - ABNORMAL LEVELS OF OTHER SERUM ENZYMES (4) A-fib Code(s): I48.91 - UNSPECIFIED ATRIAL FIBRILLATION (5) Anemia Code(s): D64.9 - ANEMIA, UNSPECIFIED (6) CKD (chronic kidney disease) Code(s): N18.9 - CHRONIC KIDNEY DISEASE, UNSPECIFIED (7) Diabetes Code(s): E11.9 - TYPE 2 DIABETES MELLITUS WITHOUT COMPLICATIONS Qualifiers: Diabetes mellitus type: type 2 (8) HTN (hypertension) Code(s): I10 - ESSENTIAL (PRIMARY) HYPERTENSION Qualifiers: Hypertension type: essential hypertension Qualified Code(s): I10 - Essential (primary) hypertension Assessment/Plan ASSESSMENT AND PLAN: s/p Acute Respiratory Failure Resolved RUL Atelectasis Pneumonia ESRD on HD Atrial Fibrillation DM HTN HLD h/o CVA COPD - continue antibiotics - HD per renal - rate control - continue anticoagulation - O2 to keep Spo2 >90% - PO as tolerated - aspiration precautions DR GODINEZ
[2018-12-01] MEDS: CHLORHEXIDINE GLUCONATE 4% CLEANSER FOR DECOLONIZATION TP SCH (23:06)
[2018-12-01] MEDS: ATORVASTATIN CA 20 MG TABLET (FP) PO SCH (23:08)
[2018-12-01] MEDS: TAMSULOSIN HCL 0.4 MG CAP PO SCH (23:08)
[2018-12-02] MEDS: ACETAMINOPHEN 325 MG TABLET (FP) PO PRN ×2 (05:44→16:53)
[2018-12-02] MEDS: ALBUTEROL SO4 2.5/IPRATROPIUM 0.5 INH SOL 3 ML VIAL.NEB. NEB SCH ×3 (07:35→15:15)
--- NOTE | 2018-12-02 08:23 | PN ---
Progress Note (short form) - Note Progress Note: RENAL Pt is awake and alert comfortable comfortable Last Vital Signs Temp Pulse Resp BP Pulse Ox 98.4 F 88 20 149/71 100 12/02/18 05:40 12/02/18 05:40 12/02/18 05:40 12/02/18 05:40 12/01/18 21:00 lungs clear cvs s1s2 rr abd soft ext no edema, has dressings on both neuro awake, responds to questions Current Medications Generic Name Dose Route Start Last Admin Trade Name Freq PRN Reason Stop Dose Admin Acetaminophen 650 mg 11/27/18 19:30 12/02/18 05:44 Tylenol - PO 650 mg Q6H PRN Administration PAIN LEVEL 1-5 Albuterol Sulfate 1 amp 11/27/18 19:30 Ventolin 0.083% Nebulizer Soln - NEB Q4H PRN SHORT OF BREATH/WHEEZING Albuterol/Ipratropium 1 amp 11/27/18 20:00 12/02/18 07:35 Duoneb - NEB Not Given RQID [facility] Amoxicillin/Clavulanate Potassium 1 tab 11/29/18 16:15 12/01/18 09:23 Augmentin - 500mg Tablet PO 1 tab DAILY [facility] Administration Apixaban 5 mg 11/27/18 22:00 12/01/18 23:08 Eliquis - PO 5 mg BID [facility] Administration Atorvastatin Calcium 20 mg 11/27/18 22:00 12/01/18 23:08 Lipitor - PO 20 mg HS [facility] Administration Chlorhexidine Gluconate 1 applic 11/27/18 22:00 12/01/18 23:06 Hibiclens For Decolonization - TP Not Given HS [facility] Clopidogrel Bisulfate 75 mg 11/28/18 10:00 12/01/18 09:23 Plavix - PO 75 mg DAILY [facility] Administration Collagenase 1 applic 11/28/18 10:00 12/01/18 09:25 Santyl - TP 1 applic DAILY [facility] Administration Protocol Dextrose 25 gm 11/27/18 19:30 D50w (Vial) - IVPUSH PRN PRN HYPOGLYCEMIA Escitalopram Oxalate 10 mg 11/28/18 10:00 12/01/18 09:23 Lexapro - PO 10 mg DAILY [facility] Administration Midodrine 10 mg 11/28/18 08:00 11/30/18 09:31 Proamatine - PO 10 mg MoWeFr@0800 [facility] Administration Multi-Ingredient Ointment 1 gm 11/27/18 22:00 12/01/18 23:08 Zinc Oxide 20% Topical Oint TP 1 applic BID [facility] Administration Pantoprazole Sodium 40 mg 11/28/18 10:00 12/01/18 09:21 Protonix Iv IVPUSH 40 mg DAILY [facility] Administration Sevelamer Carbonate 1,600 mg 11/28/18 08:00 12/01/18 16:39 Renvela - PO 1,600 mg TIDCM [facility] Administration Tamsulosin HCl 0.4 mg 11/27/18 22:00 12/01/18 23:08 Flomax - PO 0.4 mg HS [facility] Administration Impression 1. ESRD 2. acute rep failure 3. DM 4. hyperlipidemia 5. HTN 6. gout 7. proteinuria 8. hypotension/shock 9. sepsis Plan would continue current management can be discharged to [facility] where he can get vanco on HD MV
[2018-12-02] MEDS ORDERED: PT OWN MED DRAWER 7, Y5N ONE (08:41)
[2018-12-02] MEDS: SEVELAMER CARBONATE 800 MG TAB (FP) PO SCH ×3 (09:20→16:54)
[2018-12-02] MEDS: PANTOPRAZOLE SODIUM 40 MG VIAL IVPUSH SCH (09:20)
[2018-12-02] MEDS: ESCITALOPRAM OXALATE 10 MG TABLET (FP) PO SCH (09:20)
[2018-12-02] MEDS: COLLAGENASE CLOSTRIDIUM HIST. 30 GRAMS TUBE TP SCH (09:21)
[2018-12-02] MEDS: CLOPIDOGREL BISULFATE 75 MG TABLET (FP) PO SCH (09:21)
[2018-12-02] MEDS: ZINC OXIDE 20% TOPICAL OINTMENT 454 GM JAR TP SCH ×2 (09:21→22:06)
[2018-12-02] MEDS: AMOX TR/POT CLAV 500MG/125MG TABLETS (FP) PO SCH (09:21)
[2018-12-02] MEDS: APIXABAN 5 MG TABLET PO SCH ×2 (09:21→22:04)
--- NOTE | 2018-12-02 15:45 | PN ---
Progress Note, Physician - Current Medication List Current Medications: Active Medications Acetaminophen (Tylenol -) 650 mg PO Q6H PRN PRN Reason: PAIN LEVEL 1-5 Last Admin: 12/02/18 05:44 Dose: 650 mg Albuterol Sulfate (Ventolin 0.083% Nebulizer Soln -) 1 amp NEB Q4H PRN PRN Reason: SHORT OF BREATH/WHEEZING Albuterol/Ipratropium (Duoneb -) 1 amp NEB RQID [facility] Last Admin: 12/02/18 15:15 Dose: 1 amp Amoxicillin/Clavulanate Potassium (Augmentin - 500mg Tablet) 1 tab PO DAILY [facility] Last Admin: 12/02/18 09:21 Dose: 1 tab Apixaban (Eliquis -) 5 mg PO BID [facility] Last Admin: 12/02/18 09:21 Dose: 5 mg Atorvastatin Calcium (Lipitor -) 20 mg PO [facility] Last Admin: 12/01/18 23:08 Dose: 20 mg Chlorhexidine Gluconate (Hibiclens For Decolonization -) 1 applic TP [facility] Last Admin: 12/01/18 23:06 Dose: Not Given Clopidogrel Bisulfate (Plavix -) 75 mg PO DAILY [facility] Last Admin: 12/02/18 09:21 Dose: 75 mg Collagenase (Santyl -) 1 applic TP DAILY [facility]; Protocol Last Admin: 12/02/18 09:21 Dose: 1 applic Dextrose (D50w (Vial) -) 25 gm IVPUSH PRN PRN PRN Reason: HYPOGLYCEMIA Escitalopram Oxalate (Lexapro -) 10 mg PO DAILY [facility] Last Admin: 12/02/18 09:20 Dose: 10 mg Midodrine (Proamatine -) 10 mg PO MoWeFr@0800 [facility] Last Admin: 11/30/18 09:31 Dose: 10 mg Multi-Ingredient Ointment (Zinc Oxide 20% Topical Oint) 1 gm TP BID [facility] Last Admin: 12/02/18 09:21 Dose: 1 applic Pantoprazole Sodium (Protonix Iv) 40 mg IVPUSH DAILY [facility] Last Admin: 12/02/18 09:20 Dose: 40 mg Sevelamer Carbonate (Renvela -) 1,600 mg PO TIDCM [facility] Last Admin: 12/02/18 12:11 Dose: 1,600 mg Tamsulosin HCl (Flomax -) 0.4 mg PO [facility] Last Admin: 12/01/18 23:08 Dose: 0.4 mg - Objective Vital Signs: Vital Signs Temperature 98.7 F 12/02/18 14:39 Pulse Rate 90 12/02/18 14:39 Respiratory Rate 20 12/02/18 14:39 Blood Pressure 118/63 12/02/18 14:39 O2 Sat by Pulse Oximetry (%) 100 12/02/18 09:00 Cardiovascular: Yes: S1, S2 Respiratory: Yes: Regular, CTA Bilaterally Gastrointestinal: Yes: Normal Bowel Sounds, Soft Neurological: Yes: Alert, Oriented Labs: CBC, BMP 12/01/18 06:30 12/01/18 06:30 INR, PTT INR 1.32 (0.83-1.09) H 11/21/18 21:03 Assessment/Plan - Problems (1) ESRD (end stage renal disease) Assessment/Plan: -nephrology on board -permacath R upper chest -continue with HD as scheduled -monitor BUN/Cr 4.3 Code(s): N18.6 - END STAGE RENAL DISEASE (2) Hypotension Assessment/Plan: -midrodine on -- Code(s): I95.9 - HYPOTENSION, UNSPECIFIED (3) Pressure ulcer Assessment/Plan: -daily dressing changes Code(s): L89.90 - PRESSURE ULCER OF UNSPECIFIED SITE, UNSPECIFIED STAGE (4) A-fib Assessment/Plan: -on Eliquis Code(s): I48.91 - UNSPECIFIED ATRIAL FIBRILLATION (5) Anemia Assessment/Plan: -epogen on days of HD -monitor H/H daily -current Hg 9.6 Code(s): D64.9 - ANEMIA, UNSPECIFIED (6) MRSA (methicillin resistant staph aureus) culture positive Assessment/Plan: -continue contact precautions Code(s): Z22.322 - CARRIER OR SUSPECTED CARRIER OF METHICILLIN RESIS STAPH (7) Sepsis Assessment/Plan: -ID on board -continue with IV vanco and PO augmentin -current vanco trough 17.5--continue to monitor -currently afebrile -no leukocytosis with WBC 9.1 Code(s): A41.9 - SEPSIS, UNSPECIFIED ORGANISM Qualifiers: Sepsis type: sepsis due to unspecified organism Qualified Code(s): A41.9 - Sepsis, unspecified organism (8) Toxic metabolic encephalopathy Code(s): G92 - TOXIC ENCEPHALOPATHY (9) Wound, open, foot Assessment/Plan: -daily dressing changes -podiatry on board Code(s): S91.309A - UNSPECIFIED OPEN WOUND, UNSPECIFIED FOOT, INITIAL ENCOUNTER Qualifiers: Laterality: right (10) Abdominal pain Assessment/Plan: -Abd US performed and shows multiple gallstones with borderline thickening of its wall, no pericholecystic free fluid present, correlate clinically to R/O acute cholecystitis -reconsult GI Code(s): R10.9 - UNSPECIFIED ABDOMINAL PAIN
--- NOTE | 2018-12-02 16:00 | PN ---
Progress Note, Physician History of Present Illness: PULMONARY NO DISTRESS,-CP,-SOB - Current Medication List Current Medications: Active Medications Acetaminophen (Tylenol -) 650 mg PO Q6H PRN PRN Reason: PAIN LEVEL 1-5 Last Admin: 12/02/18 05:44 Dose: 650 mg Albuterol Sulfate (Ventolin 0.083% Nebulizer Soln -) 1 amp NEB Q4H PRN PRN Reason: SHORT OF BREATH/WHEEZING Albuterol/Ipratropium (Duoneb -) 1 amp NEB RQID [facility] Last Admin: 12/02/18 15:15 Dose: 1 amp Amoxicillin/Clavulanate Potassium (Augmentin - 500mg Tablet) 1 tab PO DAILY [facility] Last Admin: 12/02/18 09:21 Dose: 1 tab Apixaban (Eliquis -) 5 mg PO BID [facility] Last Admin: 12/02/18 09:21 Dose: 5 mg Atorvastatin Calcium (Lipitor -) 20 mg PO HS [facility] Last Admin: 12/01/18 23:08 Dose: 20 mg Chlorhexidine Gluconate (Hibiclens For Decolonization -) 1 applic TP HS [facility] Last Admin: 12/01/18 23:06 Dose: Not Given Clopidogrel Bisulfate (Plavix -) 75 mg PO DAILY [facility] Last Admin: 12/02/18 09:21 Dose: 75 mg Collagenase (Santyl -) 1 applic TP DAILY [facility]; Protocol Last Admin: 12/02/18 09:21 Dose: 1 applic Dextrose (D50w (Vial) -) 25 gm IVPUSH PRN PRN PRN Reason: HYPOGLYCEMIA Escitalopram Oxalate (Lexapro -) 10 mg PO DAILY [facility] Last Admin: 12/02/18 09:20 Dose: 10 mg Midodrine (Proamatine -) 10 mg PO MoWeFr@0800 [facility] Last Admin: 11/30/18 09:31 Dose: 10 mg Multi-Ingredient Ointment (Zinc Oxide 20% Topical Oint) 1 gm TP BID [facility] Last Admin: 12/02/18 09:21 Dose: 1 applic Pantoprazole Sodium (Protonix Iv) 40 mg IVPUSH DAILY [facility] Last Admin: 12/02/18 09:20 Dose: 40 mg Sevelamer Carbonate (Renvela -) 1,600 mg PO TIDCM [facility] Last Admin: 12/02/18 12:11 Dose: 1,600 mg Tamsulosin HCl (Flomax -) 0.4 mg PO HS [facility] Last Admin: 12/01/18 23:08 Dose: 0.4 mg - Objective Vital Signs: Vital Signs Temperature 98.7 F 12/02/18 14:39 Pulse Rate 90 12/02/18 14:39 Respiratory Rate 20 12/02/18 14:39 Blood Pressure 118/63 12/02/18 14:39 O2 Sat by Pulse Oximetry (%) 100 12/02/18 09:00 Constitutional: Yes: Well Nourished, Calm Eyes: Yes: WNL HENT: Yes: WNL Neck: Yes: WNL Cardiovascular: Yes: Regular Rate and Rhythm, S1, S2 Respiratory: Yes: CTA Bilaterally Gastrointestinal: Yes: Normal Bowel Sounds, Soft Extremities: Yes: WNL Edema: No Labs: CBC, BMP Problem List - Problems (1) Acute hypoxemic respiratory failure Code(s): J96.01 - ACUTE RESPIRATORY FAILURE WITH HYPOXIA (2) ESRD (end stage renal disease) Code(s): N18.6 - END STAGE RENAL DISEASE (3) Elevated troponin Code(s): R74.8 - ABNORMAL LEVELS OF OTHER SERUM ENZYMES (4) A-fib Code(s): I48.91 - UNSPECIFIED ATRIAL FIBRILLATION (5) Anemia Code(s): D64.9 - ANEMIA, UNSPECIFIED (6) CKD (chronic kidney disease) Code(s): N18.9 - CHRONIC KIDNEY DISEASE, UNSPECIFIED (7) Diabetes Code(s): E11.9 - TYPE 2 DIABETES MELLITUS WITHOUT COMPLICATIONS Qualifiers: Diabetes mellitus type: type 2 (8) HTN (hypertension) Code(s): I10 - ESSENTIAL (PRIMARY) HYPERTENSION Qualifiers: Hypertension type: essential hypertension Qualified Code(s): I10 - Essential (primary) hypertension Assessment/Plan ASSESSMENT AND PLAN: s/p Acute Respiratory Failure Resolved RUL Atelectasis Pneumonia ESRD on HD Atrial Fibrillation DM HTN HLD h/o CVA COPD - continue antibiotics - HD per renal - rate control - continue anticoagulation - O2 to keep Spo2 >90% - PO as tolerated - aspiration precautions - chest x-ray am DR GODINEZ
[2018-12-02] MEDS ORDERED: VANCOMYCIN 1 GRAM (PRE-DOCKED) 1,000 MG/250 ML BAG IVPB ONE (16:36)
--- NOTE | 2018-12-02 16:59 | PN ---
Progress Note, Physician History of Present Illness: ALERT TODAY NO COMPLAINTS AFEBRILE WBC WNL DAY # VANCOMYCIN - Current Medication List Current Medications: Active Medications Acetaminophen (Tylenol -) 650 mg PO Q6H PRN PRN Reason: PAIN LEVEL 1-5 Last Admin: 12/02/18 16:53 Dose: 650 mg Albuterol Sulfate (Ventolin 0.083% Nebulizer Soln -) 1 amp NEB Q4H PRN PRN Reason: SHORT OF BREATH/WHEEZING Albuterol/Ipratropium (Duoneb -) 1 amp NEB RQID [facility] Last Admin: 12/02/18 15:15 Dose: 1 amp Apixaban (Eliquis -) 5 mg PO BID [facility] Last Admin: 12/02/18 09:21 Dose: 5 mg Atorvastatin Calcium (Lipitor -) 20 mg PO HS [facility] Last Admin: 12/01/18 23:08 Dose: 20 mg Chlorhexidine Gluconate (Hibiclens For Decolonization -) 1 applic TP HS [facility] Last Admin: 12/01/18 23:06 Dose: Not Given Clopidogrel Bisulfate (Plavix -) 75 mg PO DAILY [facility] Last Admin: 12/02/18 09:21 Dose: 75 mg Collagenase (Santyl -) 1 applic TP DAILY [facility]; Protocol Last Admin: 12/02/18 09:21 Dose: 1 applic Dextrose (D50w (Vial) -) 25 gm IVPUSH PRN PRN PRN Reason: HYPOGLYCEMIA Escitalopram Oxalate (Lexapro -) 10 mg PO DAILY [facility] Last Admin: 12/02/18 09:20 Dose: 10 mg Vancomycin HCl (Vancomycin (Pre-Docked)) 1,000 mg in 250 mls @ 166.667 mls/hr IVPB ONCE ONE; Protocol Stop: 12/02/18 18:05 Last Admin: 12/02/18 16:54 Dose: 166.667 mls/hr Midodrine (Proamatine -) 10 mg PO MoWeFr@0800 [facility] Last Admin: 11/30/18 09:31 Dose: 10 mg Multi-Ingredient Ointment (Zinc Oxide 20% Topical Oint) 1 gm TP BID [facility] Last Admin: 12/02/18 09:21 Dose: 1 applic Pantoprazole Sodium (Protonix Iv) 40 mg IVPUSH DAILY [facility] Last Admin: 12/02/18 09:20 Dose: 40 mg Sevelamer Carbonate (Renvela -) 1,600 mg PO TIDCM [facility] Last Admin: 12/02/18 16:54 Dose: 1,600 mg Tamsulosin HCl (Flomax -) 0.4 mg PO HS [facility] Last Admin: 12/01/18 23:08 Dose: 0.4 mg - Objective Vital Signs: Vital Signs Temperature 98.7 F 12/02/18 14:39 Pulse Rate 90 12/02/18 14:39 Respiratory Rate 20 12/02/18 14:39 Blood Pressure 118/63 12/02/18 14:39 O2 Sat by Pulse Oximetry (%) 100 12/02/18 09:00 Constitutional: Yes: No Distress Eyes: Yes: Conjunctiva Clear Cardiovascular: Yes: Regular Rate and Rhythm, S1, S2 Respiratory: Yes: CTA Bilaterally Gastrointestinal: Yes: Normal Bowel Sounds, Soft. No: Tenderness Labs: CBC, BMP 12/01/18 06:30 12/01/18 06:30 INR, PTT INR 1.32 (0.83-1.09) H 11/21/18 21:03 Assessment/Plan S/P RESPIRATORY FAILURE HX MRSA BACTEREMIA ESRD REDOSE VANCOMYCIN THIS SHOULD COMPLETE 28D COURSE FOR MRSA BACTEREMIA/ PRESUMED ENDOCARDITIS
[2018-12-02] MEDS: ATORVASTATIN CA 20 MG TABLET (FP) PO SCH (22:04)
[2018-12-02] MEDS: TAMSULOSIN HCL 0.4 MG CAP PO SCH (22:04)
[2018-12-02] MEDS: CHLORHEXIDINE GLUCONATE 4% CLEANSER FOR DECOLONIZATION TP SCH (23:39)
[2018-12-03] MEDS ORDERED: PT OWN MED DRAWER 7, Y5N ONE ×2 (07:50→08:54)
[2018-12-03] MEDS: SEVELAMER CARBONATE 800 MG TAB (FP) PO SCH ×3 (08:03→18:08)
[2018-12-03] MEDS: ACETAMINOPHEN 325 MG TABLET (FP) PO PRN ×2 (08:03→15:47)
[2018-12-03] MEDS: APIXABAN 5 MG TABLET PO SCH (09:17)
[2018-12-03] MEDS: ESCITALOPRAM OXALATE 10 MG TABLET (FP) PO SCH (09:17)
[2018-12-03] MEDS: PANTOPRAZOLE SODIUM 40 MG VIAL IVPUSH SCH (09:17)
[2018-12-03] MEDS: CLOPIDOGREL BISULFATE 75 MG TABLET (FP) PO SCH (09:17)
[2018-12-03] MEDS: MIDODRINE HCL 5 MG TABLET PO SCH (09:17)
[2018-12-03] MEDS: COLLAGENASE CLOSTRIDIUM HIST. 30 GRAMS TUBE TP SCH (09:17)
[2018-12-03] MEDS: ZINC OXIDE 20% TOPICAL OINTMENT 454 GM JAR TP SCH (09:18)
--- NOTE | 2018-12-03 11:23 | PN ---
Progress Note (short form) - Note Progress Note: PULMONARY Currently on HD. Denies shortness of breath or chest pain. CXR this AM unremarkable. Vital Signs Period Temp Pulse Resp BP Sys/Zamorano Pulse Ox Last 24 Hr 98.3 F-98.7 F 79-90 20-20 118-138/63-86 100 Gen: NAD at rest Heart: RRR Lung: decreased breath sounds at the bases Abd: soft, nontender Ext: no edema CBC, BMP 12/01/18 06:30 12/01/18 06:30 Active Medications Acetaminophen (Tylenol -) 650 mg PO Q6H PRN PRN Reason: PAIN LEVEL 1-5 Last Admin: 12/03/18 08:03 Dose: 650 mg Apixaban (Eliquis -) 5 mg PO BID [facility] Last Admin: 12/03/18 09:17 Dose: 5 mg Atorvastatin Calcium (Lipitor -) 20 mg PO HS [facility] Last Admin: 12/02/18 22:04 Dose: 20 mg Chlorhexidine Gluconate (Hibiclens For Decolonization -) 1 applic TP HS [facility] Last Admin: 12/02/18 23:39 Dose: Not Given Clopidogrel Bisulfate (Plavix -) 75 mg PO DAILY [facility] Last Admin: 12/03/18 09:17 Dose: 75 mg Collagenase (Santyl -) 1 applic TP DAILY [facility]; Protocol Last Admin: 12/03/18 09:17 Dose: 1 applic Dextrose (D50w (Vial) -) 25 gm IVPUSH PRN PRN PRN Reason: HYPOGLYCEMIA Escitalopram Oxalate (Lexapro -) 10 mg PO DAILY [facility] Last Admin: 12/03/18 09:17 Dose: 10 mg Midodrine (Proamatine -) 10 mg PO MoWeFr@0800 [facility] Last Admin: 12/03/18 09:17 Dose: 10 mg Multi-Ingredient Ointment (Zinc Oxide 20% Topical Oint) 1 gm TP BID [facility] Last Admin: 12/03/18 09:18 Dose: 1 applic Pantoprazole Sodium (Protonix Iv) 40 mg IVPUSH DAILY [facility] Last Admin: 12/03/18 09:17 Dose: 40 mg Sevelamer Carbonate (Renvela -) 1,600 mg PO TIDCM [facility] Last Admin: 12/03/18 08:03 Dose: 1,600 mg Tamsulosin HCl (Flomax -) 0.4 mg PO HS [facility] Last Admin: 12/02/18 22:04 Dose: 0.4 mg A/P s/p Acute Respiratory Failure Resolved RUL Atelectasis Pneumonia ESRD on HD Atrial Fibrillation DM HTN HLD h/o CVA COPD - complete antibiotics - HD per renal - rate control - continue anticoagulation - O2 to keep Spo2 >90% - PO as tolerated - aspiration precautions
--- NOTE | 2018-12-03 14:15 | PN ---
Progress Note, Physician History of Present Illness: Pt seen and examined at bedside. He is awake and alert. He denies shortness of breath. He is tolerating HD. - Current Medication List Current Medications: Active Medications Acetaminophen (Tylenol -) 650 mg PO Q6H PRN PRN Reason: PAIN LEVEL 1-5 Last Admin: 12/03/18 08:03 Dose: 650 mg Apixaban (Eliquis -) 5 mg PO BID [facility] Last Admin: 12/03/18 09:17 Dose: 5 mg Atorvastatin Calcium (Lipitor -) 20 mg PO HS [facility] Last Admin: 12/02/18 22:04 Dose: 20 mg Chlorhexidine Gluconate (Hibiclens For Decolonization -) 1 applic TP HS [facility] Last Admin: 12/02/18 23:39 Dose: Not Given Clopidogrel Bisulfate (Plavix -) 75 mg PO DAILY [facility] Last Admin: 12/03/18 09:17 Dose: 75 mg Collagenase (Santyl -) 1 applic TP DAILY [facility]; Protocol Last Admin: 12/03/18 09:17 Dose: 1 applic Dextrose (D50w (Vial) -) 25 gm IVPUSH PRN PRN PRN Reason: HYPOGLYCEMIA Escitalopram Oxalate (Lexapro -) 10 mg PO DAILY [facility] Last Admin: 12/03/18 09:17 Dose: 10 mg Midodrine (Proamatine -) 10 mg PO [id number]@0800 [facility] Last Admin: 12/03/18 09:17 Dose: 10 mg Multi-Ingredient Ointment (Zinc Oxide 20% Topical Oint) 1 gm TP BID [facility] Last Admin: 12/03/18 09:18 Dose: 1 applic Pantoprazole Sodium (Protonix Iv) 40 mg IVPUSH DAILY [facility] Last Admin: 12/03/18 09:17 Dose: 40 mg Sevelamer Carbonate (Renvela -) 1,600 mg PO TIDCM [facility] Last Admin: 12/03/18 11:46 Dose: Not Given Tamsulosin HCl (Flomax -) 0.4 mg PO HS [facility] Last Admin: 12/02/18 22:04 Dose: 0.4 mg - Objective Vital Signs: Vital Signs Temperature 98.2 F 12/03/18 10:10 Pulse Rate 93 H 12/03/18 13:24 Respiratory Rate 18 12/03/18 13:24 Blood Pressure 143/70 12/03/18 13:24 O2 Sat by Pulse Oximetry (%) 100 12/03/18 09:00 Constitutional: Yes: Calm Eyes: Yes: Conjunctiva Clear HENT: Yes: Atraumatic Neck: Yes: Supple Cardiovascular: Yes: S1, S2 Respiratory: Yes: CTA Bilaterally Gastrointestinal: Yes: Normal Bowel Sounds, Soft Genitourinary: Yes: Incontinence Musculoskeletal: Yes: WNL Edema: No Wound/Incision: Yes: Dressing Dry and Intact Neurological: Yes: Confusion Labs: CBC, BMP 12/01/18 06:30 12/01/18 06:30 INR, PTT INR 1.32 (0.83-1.09) H 11/21/18 21:03 Problem List - Problems (1) ESRD (end stage renal disease) Code(s): N18.6 - END STAGE RENAL DISEASE (2) Anemia Code(s): D64.9 - ANEMIA, UNSPECIFIED Assessment/Plan Current Medications Generic Name Dose Route Start Last Admin Trade Name Freq PRN Reason Stop Dose Admin Acetaminophen 650 mg 11/27/18 19:30 12/03/18 08:03 Tylenol - PO 650 mg Q6H PRN Administration PAIN LEVEL 1-5 Apixaban 5 mg 11/27/18 22:00 12/03/18 09:17 Eliquis - PO 5 mg BID CHANTELL Administration Atorvastatin Calcium 20 mg 11/27/18 22:00 12/02/18 22:04 Lipitor - PO 20 mg HS CHANTELL Administration Chlorhexidine Gluconate 1 applic 11/27/18 22:00 12/02/18 23:39 Hibiclens For Decolonization - TP Not Given HS [facility] Clopidogrel Bisulfate 75 mg 11/28/18 10:00 12/03/18 09:17 Plavix - PO 75 mg DAILY CHANTELL Administration Collagenase 1 applic 11/28/18 10:00 12/03/18 09:17 Santyl - TP 1 applic DAILY CHANTELL Administration Protocol Dextrose 25 gm 11/27/18 19:30 D50w (Vial) - IVPUSH PRN PRN HYPOGLYCEMIA Escitalopram Oxalate 10 mg 11/28/18 10:00 12/03/18 09:17 Lexapro - PO 10 mg DAILY CHANTELL Administration Midodrine 10 mg 11/28/18 08:00 12/03/18 09:17 Proamatine - PO 10 mg MoWeFr@0800 CHANTELL Administration Multi-Ingredient Ointment 1 gm 11/27/18 22:00 12/03/18 09:18 Zinc Oxide 20% Topical Oint TP 1 applic BID CHANTELL Administration Pantoprazole Sodium 40 mg 11/28/18 10:00 12/03/18 09:17 Protonix Iv IVPUSH 40 mg DAILY CHANTELL Administration Sevelamer Carbonate 1,600 mg 11/28/18 08:00 12/03/18 11:46 Renvela - PO Not Given TIDCM [facility] Tamsulosin HCl 0.4 mg 11/27/18 22:00 12/02/18 22:04 Flomax - PO 0.4 mg HS CHANTELL Administration Laboratory Tests 11/30/18 06:15 Cortisol AM Sample 10.9 Impression 1. ESRD 2. acute rep failure 3. DM 4. hyperlipidemia 5. HTN 6. gout 7. proteinuria 8. hypotension/shock 9. sepsis Plan - pt tolerating HD - monitor bp - 3 k bath on HD - epogen for anemia
--- NOTE | 2018-12-03 15:28 | DS ---
Physical Examination Vital Signs: Vital Signs Temperature 97.9 F 12/03/18 15:06 Pulse Rate 86 12/03/18 15:06 Respiratory Rate 20 12/03/18 15:06 Blood Pressure 138/79 12/03/18 15:06 O2 Sat by Pulse Oximetry (%) 100 12/03/18 09:00 Findings/Remarks: Patient is a 73 y/o male with past medical history of ESRD on HD, DM, HTN, HLD, prior CVA, and COPD. Patient presented to ER from [facility]F after pulling HD catheter while in dialysis and patient became hypotenstive, tachycardic, and non verbal. Intubated in ER due to respiratory failure. Since admission patient has been extubated and followed by pulmonary. Patient was treated with IV ABT for PNA and MRSA bacteremia. Followed by renal and has been receiving HD from R chest catheter . Constitutional: Yes: No Distress, Calm Eyes: Yes: Conjunctiva Clear HENT: Yes: Atraumatic Cardiovascular: Yes: Regular Rate and Rhythm Respiratory: Yes: Regular, CTA Bilaterally Gastrointestinal: Yes: Normal Bowel Sounds, Soft, Other (non tender) Renal/: Yes: Incontinence Musculoskeletal: Yes: Muscle Weakness Extremities: Yes: WNL Edema: No Neurological: Yes: Alert, Pre-Existing Deficit Psychiatric: Yes: Alert Labs: CBC, BMP 12/01/18 06:30 12/01/18 06:30 Discharge Summary Reason For Visit: ACUTE RESPIRATORY FAILURE WITH HYPOXEMIA Current Active Problems Abdominal pain (Acute) Acute hypoxemic respiratory failure (Acute) ESRD (end stage renal disease) (Acute) Elevated troponin (Acute) Gallstone (Acute) Hypotension (Acute) Pressure ulcer (Acute) Ventilator dependence (Acute) Procedures: Principal: CXR. Abd Hospital Course: see progress notes Laboratory Tests 11/21/18 11/21/18 11/21/18 21:03 21:03 21:03 WBC 7.7 RBC 3.18 L Hgb 9.9 L Hct 30.2 L D MCV 95.1 MCH 31.0 MCHC 32.6 RDW 17.0 H Plt Count 388 MPV 8.7 D Absolute Neuts (auto) 4.9 Neutrophils % 64.0 Lymphocytes % 20.2 Monocytes % 10.9 H Eosinophils % 3.8 Basophils % 1.1 Nucleated RBC % 0 PT with INR 15.60 H INR 1.32 H Anticoagulation Therapy Puncture Site ABG pH ABG pCO2 at Pt Temp ABG pO2 at Pt Temp ABG HCO3 ABG O2 Sat (Measured) ABG O2 Content ABG Base Excess Johan Test Carboxyhemoglobin Methemoglobin O2 Delivery Device Oxygen Flow Rate Vent Mode Vent Rate Mechanical Rate Pressure Support Vent Sodium 136 Potassium 4.2 Chloride 97 L Carbon Dioxide 26 Anion Gap 13 BUN 10 Creatinine 3.0 H Creat Clearance w eGFR 20.56 POC Glucometer Random Glucose 127 H Lactic Acid Calcium 8.4 L Phosphorus Magnesium Total Bilirubin 0.5 AST 32 ALT 11 L Alkaline Phosphatase 120 H Creatine Kinase 109 Creatine Kinase Index CK-MB (CK-2) Troponin I < 0.02 Total Protein 9.0 H Albumin 2.3 L Triglycerides 164 H Cholesterol 154 Total LDL Cholesterol 88 HDL Cholesterol 50 Cortisol AM Sample Urine Color Urine Appearance Urine pH Ur Specific [place] Urine Protein Urine Glucose (UA) Urine Ketones Urine Blood Urine Nitrite Urine Bilirubin Urine Urobilinogen Ur Leukocyte Esterase Urine WBC (Auto) Urine RBC (Auto) Urine Bacteria Hyaline Casts Urine Mucus Random Vancomycin Blood Type Antibody Screen Prewarmed Antibody Srcn Antibody Identification Antigen Identification Crossmatch 11/21/18 11/22/18 11/22/18 22:52 00:40 00:40 WBC RBC Hgb Hct MCV MCH MCHC RDW Plt Count MPV Absolute Neuts (auto) Neutrophils % Lymphocytes % Monocytes % Eosinophils % Basophils % Nucleated RBC % PT with INR INR Anticoagulation Therapy No Result Required. Puncture Site No Result Required. ABG pH 7.45 ABG pCO2 at Pt Temp 35.1 D ABG pO2 at Pt Temp 104.0 H ABG HCO3 24.2 ABG O2 Sat (Measured) 97.9 ABG O2 Content 11.7 L ABG Base Excess 0.8 Johan Test No Result Required. Carboxyhemoglobin 1.0 Methemoglobin 0.1 L O2 Delivery Device No Result Required. Oxygen Flow Rate No Result Required. Vent Mode No Result Required. Vent Rate No Result Required. Mechanical Rate No Result Required. Pressure Support Vent No Result Required. Sodium Potassium Chloride Carbon Dioxide Anion Gap BUN Creatinine Creat Clearance w eGFR POC Glucometer Random Glucose Lactic Acid 1.8 Calcium Phosphorus Magnesium Total Bilirubin AST ALT Alkaline Phosphatase Creatine Kinase Creatine Kinase Index CK-MB (CK-2) Troponin I Total Protein Albumin Triglycerides Cholesterol Total LDL Cholesterol HDL Cholesterol Cortisol AM Sample Urine Color Urine Appearance Urine pH Ur Specific [place] Urine Protein Urine Glucose (UA) Urine Ketones Urine Blood Urine Nitrite Urine Bilirubin Urine Urobilinogen Ur Leukocyte Esterase Urine WBC (Auto) Urine RBC (Auto) Urine Bacteria Hyaline Casts Urine Mucus Random Vancomycin Blood Type A POSITIVE Antibody Screen Positive H Prewarmed Antibody Srcn Negative Antibody Identification COLD AGGLUTININ Antigen Identification No Result Required. Crossmatch See Detail 11/22/18 11/22/18 11/22/18 03:25 09:54 09:54 WBC 6.6 RBC 2.94 L Hgb 8.9 L Hct 28.1 L MCV 95.5 MCH 30.3 MCHC 31.7 L RDW 16.2 H Plt Count 305 D MPV 8.0 Absolute Neuts (auto) 4.0 Neutrophils % 61.6 Lymphocytes % 26.5 D Monocytes % 7.8 Eosinophils % 3.0 Basophils % 1.1 Nucleated RBC % 0 PT with INR INR Anticoagulation Therapy Puncture Site ABG pH ABG pCO2 at Pt Temp ABG pO2 at Pt Temp ABG HCO3 ABG O2 Sat (Measured) ABG O2 Content ABG Base Excess Johan Test Carboxyhemoglobin Methemoglobin O2 Delivery Device Oxygen Flow Rate Vent Mode Vent Rate Mechanical Rate Pressure Support Vent Sodium 139 Potassium 3.8 Chloride 103 Carbon Dioxide 27 Anion Gap 9 BUN 14 Creatinine 3.4 H Creat Clearance w eGFR 17.79 POC Glucometer Random Glucose 92 Lactic Acid Calcium 7.7 L Phosphorus Magnesium Total Bilirubin 0.4 AST 50 H ALT 15 Alkaline Phosphatase 104 Creatine Kinase 1260 H Creatine Kinase Index 1.4 CK-MB (CK-2) 18.4 H Troponin I 0.41 H Total Protein 7.6 Albumin 2.0 L Triglycerides Cholesterol Total LDL Cholesterol HDL Cholesterol Cortisol AM Sample Urine Color Yellow Urine Appearance Clear Urine pH 7.0 D Ur Specific [place] 1.013 Urine Protein 3+ H Urine Glucose (UA) Negative Urine Ketones Negative Urine Blood Negative Urine Nitrite Negative Urine Bilirubin Negative Urine Urobilinogen Negative Ur Leukocyte Esterase Negative Urine WBC (Auto) 4 Urine RBC (Auto) 3 Urine Bacteria Rare Hyaline Casts 1 Urine Mucus Rare Random Vancomycin Blood Type Antibody Screen Prewarmed Antibody Srcn Antibody Identification Antigen Identification Crossmatch 11/22/18 11/22/18 11/22/18 09:54 11:33 14:54 WBC RBC Hgb Hct MCV MCH MCHC RDW Plt Count MPV Absolute Neuts (auto) Neutrophils % Lymphocytes % Monocytes % Eosinophils % Basophils % Nucleated RBC % PT with INR INR Anticoagulation Therapy Puncture Site ABG pH ABG pCO2 at Pt Temp ABG pO2 at Pt Temp ABG HCO3 ABG O2 Sat (Measured) ABG O2 Content ABG Base Excess Johan Test Carboxyhemoglobin Methemoglobin O2 Delivery Device Oxygen Flow Rate Vent Mode Vent Rate Mechanical Rate Pressure Support Vent Sodium Potassium Chloride Carbon Dioxide Anion Gap BUN Creatinine Creat Clearance w eGFR POC Glucometer 79 Random Glucose Lactic Acid 1.2 Calcium Phosphorus Magnesium Total Bilirubin AST ALT Alkaline Phosphatase Creatine Kinase Creatine Kinase Index CK-MB (CK-2) Troponin I Total Protein Albumin Triglycerides Cholesterol Total LDL Cholesterol HDL Cholesterol Cortisol AM Sample Urine Color Urine Appearance Urine pH Ur Specific [place] Urine Protein Urine Glucose (UA) Urine Ketones Urine Blood Urine Nitrite Urine Bilirubin Urine Urobilinogen Ur Leukocyte Esterase Urine WBC (Auto) Urine RBC (Auto) Urine Bacteria Hyaline Casts Urine Mucus Random Vancomycin 14.5 L Blood Type Antibody Screen Prewarmed Antibody Srcn Antibody Identification Antigen Identification Crossmatch 11/22/18 11/22/18 11/22/18 17:17 21:43 22:59 WBC RBC Hgb Hct MCV MCH MCHC RDW Plt Count MPV Absolute Neuts (auto) Neutrophils % Lymphocytes % Monocytes % Eosinophils % Basophils % Nucleated RBC % PT with INR INR Anticoagulation Therapy Puncture Site ABG pH ABG pCO2 at Pt Temp ABG pO2 at Pt Temp ABG HCO3 ABG O2 Sat (Measured) ABG O2 Content ABG Base Excess Johan Test Carboxyhemoglobin Methemoglobin O2 Delivery Device Oxygen Flow Rate Vent Mode Vent Rate Mechanical Rate Pressure Support Vent Sodium Potassium Chloride Carbon Dioxide Anion Gap BUN Creatinine Creat Clearance w eGFR POC Glucometer 82 47 54 Random Glucose Lactic Acid Calcium Phosphorus Magnesium Total Bilirubin AST ALT Alkaline Phosphatase Creatine Kinase Creatine Kinase Index CK-MB (CK-2) Troponin I Total Protein Albumin Triglycerides Cholesterol Total LDL Cholesterol HDL Cholesterol Cortisol AM Sample Urine Color Urine Appearance Urine pH Ur Specific [place] Urine Protein Urine Glucose (UA) Urine Ketones Urine Blood Urine Nitrite Urine Bilirubin Urine Urobilinogen Ur Leukocyte Esterase Urine WBC (Auto) Urine RBC (Auto) Urine Bacteria Hyaline Casts Urine Mucus Random Vancomycin Blood Type Antibody Screen Prewarmed Antibody Srcn Antibody Identification Antigen Identification Crossmatch 11/23/18 11/23/18 11/23/18 00:33 05:30 05:30 WBC 6.4 RBC 2.43 L Hgb 7.6 L Hct 23.1 L D MCV 94.9 MCH 31.1 MCHC 32.8 RDW 15.9 Plt Count 309 MPV 8.6 Absolute Neuts (auto) Neutrophils % Lymphocytes % Monocytes % Eosinophils % Basophils % Nucleated RBC % PT with INR INR Anticoagulation Therapy Puncture Site ABG pH ABG pCO2 at Pt Temp ABG pO2 at Pt Temp ABG HCO3 ABG O2 Sat (Measured) ABG O2 Content ABG Base Excess Johan Test Carboxyhemoglobin Methemoglobin O2 Delivery Device Oxygen Flow Rate Vent Mode Vent Rate Mechanical Rate Pressure Support Vent Sodium 138 Potassium 3.9 Chloride 102 Carbon Dioxide 26 Anion Gap 10 BUN 18 Creatinine 4.3 H Creat Clearance w eGFR 13.57 POC Glucometer 113 Random Glucose 95 Lactic Acid Calcium 7.8 L Phosphorus Magnesium Total Bilirubin 0.3 AST 44 H ALT 16 Alkaline Phosphatase 92 Creatine Kinase Creatine Kinase Index CK-MB (CK-2) Troponin I Total Protein 7.0 Albumin 1.8 L Triglycerides Cholesterol Total LDL Cholesterol HDL Cholesterol Cortisol AM Sample Urine Color Urine Appearance Urine pH Ur Specific [place] Urine Protein Urine Glucose (UA) Urine Ketones Urine Blood Urine Nitrite Urine Bilirubin Urine Urobilinogen Ur Leukocyte Esterase Urine WBC (Auto) Urine RBC (Auto) Urine Bacteria Hyaline Casts Urine Mucus Random Vancomycin Blood Type Antibody Screen Prewarmed Antibody Srcn Antibody Identification Antigen Identification Crossmatch 11/23/18 11/23/18 11/23/18 06:08 11:35 18:03 WBC RBC Hgb Hct MCV MCH MCHC RDW Plt Count MPV Absolute Neuts (auto) Neutrophils % Lymphocytes % Monocytes % Eosinophils % Basophils % Nucleated RBC % PT with INR INR Anticoagulation Therapy Puncture Site ABG pH ABG pCO2 at Pt Temp ABG pO2 at Pt Temp ABG HCO3 ABG O2 Sat (Measured) ABG O2 Content ABG Base Excess Johan Test Carboxyhemoglobin Methemoglobin O2 Delivery Device Oxygen Flow Rate Vent Mode Vent Rate Mechanical Rate Pressure Support Vent Sodium Potassium Chloride Carbon Dioxide Anion Gap BUN Creatinine Creat Clearance w eGFR POC Glucometer 81 95 88 Random Glucose Lactic Acid Calcium Phosphorus Magnesium Total Bilirubin AST ALT Alkaline Phosphatase Creatine Kinase Creatine Kinase Index CK-MB (CK-2) Troponin I Total Protein Albumin Triglycerides Cholesterol Total LDL Cholesterol HDL Cholesterol Cortisol AM Sample Urine Color Urine Appearance Urine pH Ur Specific [place] Urine Protein Urine Glucose (UA) Urine Ketones Urine Blood Urine Nitrite Urine Bilirubin Urine Urobilinogen Ur Leukocyte Esterase Urine WBC (Auto) Urine RBC (Auto) Urine Bacteria Hyaline Casts Urine Mucus Random Vancomycin Blood Type Antibody Screen Prewarmed Antibody Srcn Antibody Identification Antigen Identification Crossmatch 11/23/18 11/24/18 11/24/18 21:18 05:30 05:30 WBC 7.9 RBC 2.70 L Hgb 8.3 L Hct 25.0 L MCV 92.8 MCH 30.8 MCHC 33.1 RDW 16.5 H Plt Count 276 MPV 8.4 Absolute Neuts (auto) Neutrophils % Lymphocytes % Monocytes % Eosinophils % Basophils % Nucleated RBC % PT with INR INR Anticoagulation Therapy Puncture Site ABG pH ABG pCO2 at Pt Temp ABG pO2 at Pt Temp ABG HCO3 ABG O2 Sat (Measured) ABG O2 Content ABG Base Excess Johan Test Carboxyhemoglobin Methemoglobin O2 Delivery Device Oxygen Flow Rate Vent Mode Vent Rate Mechanical Rate Pressure Support Vent Sodium Potassium Chloride Carbon Dioxide Anion Gap BUN Creatinine Creat Clearance w eGFR POC Glucometer 93 Random Glucose Lactic Acid Calcium Phosphorus Magnesium Total Bilirubin AST ALT Alkaline Phosphatase Creatine Kinase Creatine Kinase Index CK-MB (CK-2) Troponin I Total Protein Albumin Triglycerides Cholesterol Total LDL Cholesterol HDL Cholesterol Cortisol AM Sample Urine Color Urine Appearance Urine pH Ur Specific [place] Urine Protein Urine Glucose (UA) Urine Ketones Urine Blood Urine Nitrite Urine Bilirubin Urine Urobilinogen Ur Leukocyte Esterase Urine WBC (Auto) Urine RBC (Auto) Urine Bacteria Hyaline Casts Urine Mucus Random Vancomycin 22.9 Blood Type Antibody Screen Prewarmed Antibody Srcn Antibody Identification Antigen Identification Crossmatch 11/24/18 11/24/18 11/24/18 05:30 06:17 12:06 WBC RBC Hgb Hct MCV MCH MCHC RDW Plt Count MPV Absolute Neuts (auto) Neutrophils % Lymphocytes % Monocytes % Eosinophils % Basophils % Nucleated RBC % PT with INR INR Anticoagulation Therapy Puncture Site ABG pH ABG pCO2 at Pt Temp ABG pO2 at Pt Temp ABG HCO3 ABG O2 Sat (Measured) ABG O2 Content ABG Base Excess Johan Test Carboxyhemoglobin Methemoglobin O2 Delivery Device Oxygen Flow Rate Vent Mode Vent Rate Mechanical Rate Pressure Support Vent Sodium 141 Potassium 3.6 Chloride 104 Carbon Dioxide 30 Anion Gap 8 BUN 10 Creatinine 3.4 H Creat Clearance w eGFR 17.79 POC Glucometer 71 79 Random Glucose 71 L Lactic Acid Calcium 7.6 L Phosphorus Magnesium Total Bilirubin 0.4 AST 29 ALT 15 Alkaline Phosphatase 90 Creatine Kinase Creatine Kinase Index CK-MB (CK-2) Troponin I Total Protein 6.5 Albumin 1.6 L Triglycerides Cholesterol Total LDL Cholesterol HDL Cholesterol Cortisol AM Sample Urine Color Urine Appearance Urine pH Ur Specific [place] Urine Protein Urine Glucose (UA) Urine Ketones Urine Blood Urine Nitrite Urine Bilirubin Urine Urobilinogen Ur Leukocyte Esterase Urine WBC (Auto) Urine RBC (Auto) Urine Bacteria Hyaline Casts Urine Mucus Random Vancomycin Blood Type Antibody Screen Prewarmed Antibody Srcn Antibody Identification Antigen Identification Crossmatch 11/24/18 11/24/18 11/25/18 18:25 21:31 05:30 WBC 6.9 RBC 2.76 L Hgb 8.3 L Hct 25.4 L MCV 92.0 MCH 30.1 MCHC 32.8 RDW 16.4 H Plt Count 308 MPV 8.7 Absolute Neuts (auto) 5.9 Neutrophils % 85.8 H D Lymphocytes % 10.7 D Monocytes % 3.3 L Eosinophils % 0.0 D Basophils % 0.2 Nucleated RBC % 0 PT with INR INR Anticoagulation Therapy Puncture Site ABG pH ABG pCO2 at Pt Temp ABG pO2 at Pt Temp ABG HCO3 ABG O2 Sat (Measured) ABG O2 Content ABG Base Excess Johan Test Carboxyhemoglobin Methemoglobin O2 Delivery Device Oxygen Flow Rate Vent Mode Vent Rate Mechanical Rate Pressure Support Vent Sodium Potassium Chloride Carbon Dioxide Anion Gap BUN Creatinine Creat Clearance w eGFR POC Glucometer 131 123 Random Glucose Lactic Acid Calcium Phosphorus Magnesium Total Bilirubin AST ALT Alkaline Phosphatase Creatine Kinase Creatine Kinase Index CK-MB (CK-2) Troponin I Total Protein Albumin Triglycerides Cholesterol Total LDL Cholesterol HDL Cholesterol Cortisol AM Sample Urine Color Urine Appearance Urine pH Ur Specific [place] Urine Protein Urine Glucose (UA) Urine Ketones Urine Blood Urine Nitrite Urine Bilirubin Urine Urobilinogen Ur Leukocyte Esterase Urine WBC (Auto) Urine RBC (Auto) Urine Bacteria Hyaline Casts Urine Mucus Random Vancomycin Blood Type Antibody Screen Prewarmed Antibody Srcn Antibody Identification Antigen Identification Crossmatch 11/25/18 11/25/18 11/25/18 05:30 06:25 12:34 WBC RBC Hgb Hct MCV MCH MCHC RDW Plt Count MPV Absolute Neuts (auto) Neutrophils % Lymphocytes % Monocytes % Eosinophils % Basophils % Nucleated RBC % PT with INR INR Anticoagulation Therapy Puncture Site ABG pH ABG pCO2 at Pt Temp ABG pO2 at Pt Temp ABG HCO3 ABG O2 Sat (Measured) ABG O2 Content ABG Base Excess Johan Test Carboxyhemoglobin Methemoglobin O2 Delivery Device Oxygen Flow Rate Vent Mode Vent Rate Mechanical Rate Pressure Support Vent Sodium 141 Potassium 3.9 Chloride 104 Carbon Dioxide 27 Anion Gap 10 BUN 17 Creatinine 4.7 H Creat Clearance w eGFR 12.25 POC Glucometer 113 168 Random Glucose 120 H Lactic Acid Calcium 7.6 L Phosphorus 4.3 Magnesium 2.0 Total Bilirubin 0.4 AST 14 L ALT 9 L Alkaline Phosphatase 96 Creatine Kinase Creatine Kinase Index CK-MB (CK-2) Troponin I Total Protein 6.8 Albumin 1.7 L Triglycerides Cholesterol Total LDL Cholesterol HDL Cholesterol Cortisol AM Sample Urine Color Urine Appearance Urine pH Ur Specific [place] Urine Protein Urine Glucose (UA) Urine Ketones Urine Blood Urine Nitrite Urine Bilirubin Urine Urobilinogen Ur Leukocyte Esterase Urine WBC (Auto) Urine RBC (Auto) Urine Bacteria Hyaline Casts Urine Mucus Random Vancomycin Blood Type Antibody Screen Prewarmed Antibody Srcn Antibody Identification Antigen Identification Crossmatch 11/25/18 11/25/18 11/26/18 17:50 23:29 06:13 WBC RBC Hgb Hct MCV MCH MCHC RDW Plt Count MPV Absolute Neuts (auto) Neutrophils % Lymphocytes % Monocytes % Eosinophils % Basophils % Nucleated RBC % PT with INR INR Anticoagulation Therapy Puncture Site ABG pH ABG pCO2 at Pt Temp ABG pO2 at Pt Temp ABG HCO3 ABG O2 Sat (Measured) ABG O2 Content ABG Base Excess Johan Test Carboxyhemoglobin Methemoglobin O2 Delivery Device Oxygen Flow Rate Vent Mode Vent Rate Mechanical Rate Pressure Support Vent Sodium Potassium Chloride Carbon Dioxide Anion Gap BUN Creatinine Creat Clearance w eGFR POC Glucometer 100 111 83 Random Glucose Lactic Acid Calcium Phosphorus Magnesium Total Bilirubin AST ALT Alkaline Phosphatase Creatine Kinase Creatine Kinase Index CK-MB (CK-2) Troponin I Total Protein Albumin Triglycerides Cholesterol Total LDL Cholesterol HDL Cholesterol Cortisol AM Sample Urine Color Urine Appearance Urine pH Ur Specific [place] Urine Protein Urine Glucose (UA) Urine Ketones Urine Blood Urine Nitrite Urine Bilirubin Urine Urobilinogen Ur Leukocyte Esterase Urine WBC (Auto) Urine RBC (Auto) Urine Bacteria Hyaline Casts Urine Mucus Random Vancomycin Blood Type Antibody Screen Prewarmed Antibody Srcn Antibody Identification Antigen Identification Crossmatch 11/26/18 11/26/18 11/26/18 06:45 06:45 11:41 WBC 9.9 RBC 2.92 L Hgb 8.8 L Hct 27.0 L MCV 92.4 MCH 30.1 MCHC 32.6 RDW 16.3 H Plt Count 330 MPV 8.7 Absolute Neuts (auto) Neutrophils % Lymphocytes % Monocytes % Eosinophils % Basophils % Nucleated RBC % PT with INR INR Anticoagulation Therapy Puncture Site ABG pH ABG pCO2 at Pt Temp ABG pO2 at Pt Temp ABG HCO3 ABG O2 Sat (Measured) ABG O2 Content ABG Base Excess Johan Test Carboxyhemoglobin Methemoglobin O2 Delivery Device Oxygen Flow Rate Vent Mode Vent Rate Mechanical Rate Pressure Support Vent Sodium 144 Potassium 3.3 L Chloride 106 Carbon Dioxide 29 Anion Gap 9 BUN 24 H Creatinine 5.4 H Creat Clearance w eGFR 10.43 POC Glucometer 106 Random Glucose 77 Lactic Acid Calcium 7.9 L Phosphorus Magnesium Total Bilirubin AST ALT Alkaline Phosphatase Creatine Kinase Creatine Kinase Index CK-MB (CK-2) Troponin I Total Protein Albumin Triglycerides Cholesterol Total LDL Cholesterol HDL Cholesterol Cortisol AM Sample Urine Color Urine Appearance Urine pH Ur Specific [place] Urine Protein Urine Glucose (UA) Urine Ketones Urine Blood Urine Nitrite Urine Bilirubin Urine Urobilinogen Ur Leukocyte Esterase Urine WBC (Auto) Urine RBC (Auto) Urine Bacteria Hyaline Casts Urine Mucus Random Vancomycin Blood Type Antibody Screen Prewarmed Antibody Srcn Antibody Identification Antigen Identification Crossmatch 11/26/18 11/26/18 11/27/18 17:07 22:26 05:30 WBC 8.3 RBC 2.89 L Hgb 9.0 L Hct 26.7 L MCV 92.4 MCH 31.1 MCHC 33.7 RDW 16.0 H Plt Count 319 MPV 8.5 Absolute Neuts (auto) Neutrophils % Lymphocytes % Monocytes % Eosinophils % Basophils % Nucleated RBC % PT with INR INR Anticoagulation Therapy Puncture Site ABG pH ABG pCO2 at Pt Temp ABG pO2 at Pt Temp ABG HCO3 ABG O2 Sat (Measured) ABG O2 Content ABG Base Excess Johan Test Carboxyhemoglobin Methemoglobin O2 Delivery Device Oxygen Flow Rate Vent Mode Vent Rate Mechanical Rate Pressure Support Vent Sodium Potassium Chloride Carbon Dioxide Anion Gap BUN Creatinine Creat Clearance w eGFR POC Glucometer 97 88 Random Glucose Lactic Acid Calcium Phosphorus Magnesium Total Bilirubin AST ALT Alkaline Phosphatase Creatine Kinase Creatine Kinase Index CK-MB (CK-2) Troponin I Total Protein Albumin Triglycerides Cholesterol Total LDL Cholesterol HDL Cholesterol Cortisol AM Sample Urine Color Urine Appearance Urine pH Ur Specific [place] Urine Protein Urine Glucose (UA) Urine Ketones Urine Blood Urine Nitrite Urine Bilirubin Urine Urobilinogen Ur Leukocyte Esterase Urine WBC (Auto) Urine RBC (Auto) Urine Bacteria Hyaline Casts Urine Mucus Random Vancomycin Blood Type Antibody Screen Prewarmed Antibody Srcn Antibody Identification Antigen Identification Crossmatch 11/27/18 11/27/18 11/27/18 05:30 05:52 12:20 WBC RBC Hgb Hct MCV MCH MCHC RDW Plt Count MPV Absolute Neuts (auto) Neutrophils % Lymphocytes % Monocytes % Eosinophils % Basophils % Nucleated RBC % PT with INR INR Anticoagulation Therapy Puncture Site ABG pH ABG pCO2 at Pt Temp ABG pO2 at Pt Temp ABG HCO3 ABG O2 Sat (Measured) ABG O2 Content ABG Base Excess Johan Test Carboxyhemoglobin Methemoglobin O2 Delivery Device Oxygen Flow Rate Vent Mode Vent Rate Mechanical Rate Pressure Support Vent Sodium 137 Potassium 3.0 L Chloride 98 Carbon Dioxide 32 Anion Gap 7 L BUN 14 Creatinine 3.6 H Creat Clearance w eGFR 16.66 POC Glucometer 74 77 Random Glucose 78 Lactic Acid Calcium 7.4 L Phosphorus Magnesium Total Bilirubin 0.3 AST 16 ALT 12 L Alkaline Phosphatase 88 Creatine Kinase Creatine Kinase Index CK-MB (CK-2) Troponin I Total Protein 5.6 L Albumin 1.7 L Triglycerides Cholesterol Total LDL Cholesterol HDL Cholesterol Cortisol AM Sample Urine Color Urine Appearance Urine pH Ur Specific [place] Urine Protein Urine Glucose (UA) Urine Ketones Urine Blood Urine Nitrite Urine Bilirubin Urine Urobilinogen Ur Leukocyte Esterase Urine WBC (Auto) Urine RBC (Auto) Urine Bacteria Hyaline Casts Urine Mucus Random Vancomycin Blood Type Antibody Screen Prewarmed Antibody Srcn Antibody Identification Antigen Identification Crossmatch 11/27/18 11/27/18 11/27/18 17:17 20:39 22:58 WBC RBC Hgb Hct MCV MCH MCHC RDW Plt Count MPV Absolute Neuts (auto) Neutrophils % Lymphocytes % Monocytes % Eosinophils % Basophils % Nucleated RBC % PT with INR INR Anticoagulation Therapy Puncture Site ABG pH ABG pCO2 at Pt Temp ABG pO2 at Pt Temp ABG HCO3 ABG O2 Sat (Measured) ABG O2 Content ABG Base Excess Johan Test Carboxyhemoglobin Methemoglobin O2 Delivery Device Oxygen Flow Rate Vent Mode Vent Rate Mechanical Rate Pressure Support Vent Sodium Potassium Chloride Carbon Dioxide Anion Gap BUN Creatinine Creat Clearance w eGFR POC Glucometer 80 74 90 Random Glucose Lactic Acid Calcium Phosphorus Magnesium Total Bilirubin AST ALT Alkaline Phosphatase Creatine Kinase Creatine Kinase Index CK-MB (CK-2) Troponin I Total Protein Albumin Triglycerides Cholesterol Total LDL Cholesterol HDL Cholesterol Cortisol AM Sample Urine Color Urine Appearance Urine pH Ur Specific [place] Urine Protein Urine Glucose (UA) Urine Ketones Urine Blood Urine Nitrite Urine Bilirubin Urine Urobilinogen Ur Leukocyte Esterase Urine WBC (Auto) Urine RBC (Auto) Urine Bacteria Hyaline Casts Urine Mucus Random Vancomycin Blood Type Antibody Screen Prewarmed Antibody Srcn Antibody Identification Antigen Identification Crossmatch 11/28/18 11/28/18 11/28/18 06:26 06:30 09:45 WBC RBC Hgb Hct MCV MCH MCHC RDW Plt Count MPV Absolute Neuts (auto) Neutrophils % Lymphocytes % Monocytes % Eosinophils % Basophils % Nucleated RBC % PT with INR INR Anticoagulation Therapy Puncture Site ABG pH ABG pCO2 at Pt Temp ABG pO2 at Pt Temp ABG HCO3 ABG O2 Sat (Measured) ABG O2 Content ABG Base Excess Johan Test Carboxyhemoglobin Methemoglobin O2 Delivery Device Oxygen Flow Rate Vent Mode Vent Rate Mechanical Rate Pressure Support Vent Sodium 137 140 Potassium 3.4 L 3.3 L Chloride 100 102 Carbon Dioxide 29 27 Anion Gap 8 11 BUN 19 H 20 H Creatinine 4.4 H 4.6 H Creat Clearance w eGFR 13.21 12.55 POC Glucometer 82 Random Glucose 72 L 88 Lactic Acid Calcium 7.4 L 7.7 L Phosphorus Magnesium Total Bilirubin 0.4 AST 13 L ALT 10 L Alkaline Phosphatase 92 Creatine Kinase Creatine Kinase Index CK-MB (CK-2) Troponin I Total Protein 6.3 L Albumin 1.8 L Triglycerides Cholesterol Total LDL Cholesterol HDL Cholesterol Cortisol AM Sample Urine Color Urine Appearance Urine pH Ur Specific [place] Urine Protein Urine Glucose (UA) Urine Ketones Urine Blood Urine Nitrite Urine Bilirubin Urine Urobilinogen Ur Leukocyte Esterase Urine WBC (Auto) Urine RBC (Auto) Urine Bacteria Hyaline Casts Urine Mucus Random Vancomycin Blood Type Antibody Screen Prewarmed Antibody Srcn Antibody Identification Antigen Identification Crossmatch 11/28/18 11/28/18 11/28/18 09:45 11:30 13:18 WBC 8.2 RBC 3.12 L Hgb 9.5 L Hct 28.8 L MCV 92.2 MCH 30.3 MCHC 32.8 RDW 16.2 H Plt Count 335 MPV 8.7 Absolute Neuts (auto) Neutrophils % Lymphocytes % Monocytes % Eosinophils % Basophils % Nucleated RBC % PT with INR INR Anticoagulation Therapy Puncture Site ABG pH ABG pCO2 at Pt Temp ABG pO2 at Pt Temp ABG HCO3 ABG O2 Sat (Measured) ABG O2 Content ABG Base Excess Johan Test Carboxyhemoglobin Methemoglobin O2 Delivery Device Oxygen Flow Rate Vent Mode Vent Rate Mechanical Rate Pressure Support Vent Sodium Potassium Chloride Carbon Dioxide Anion Gap BUN Creatinine Creat Clearance w eGFR POC Glucometer 132 Random Glucose Lactic Acid Calcium Phosphorus Magnesium Total Bilirubin AST ALT Alkaline Phosphatase Creatine Kinase Creatine Kinase Index CK-MB (CK-2) Troponin I Total Protein Albumin Triglycerides Cholesterol Total LDL Cholesterol HDL Cholesterol Cortisol AM Sample Urine Color Urine Appearance Urine pH Ur Specific [place] Urine Protein Urine Glucose (UA) Urine Ketones Urine Blood Urine Nitrite Urine Bilirubin Urine Urobilinogen Ur Leukocyte Esterase Urine WBC (Auto) Urine RBC (Auto) Urine Bacteria Hyaline Casts Urine Mucus Random Vancomycin 15.7 L Blood Type Antibody Screen Prewarmed Antibody Srcn Antibody Identification Antigen Identification Crossmatch 11/28/18 11/29/18 11/29/18 16:45 11:14 18:37 WBC RBC Hgb Hct MCV MCH MCHC RDW Plt Count MPV Absolute Neuts (auto) Neutrophils % Lymphocytes % Monocytes % Eosinophils % Basophils % Nucleated RBC % PT with INR INR Anticoagulation Therapy Puncture Site ABG pH ABG pCO2 at Pt Temp ABG pO2 at Pt Temp ABG HCO3 ABG O2 Sat (Measured) ABG O2 Content ABG Base Excess Johan Test Carboxyhemoglobin Methemoglobin O2 Delivery Device Oxygen Flow Rate Vent Mode Vent Rate Mechanical Rate Pressure Support Vent Sodium Potassium Chloride Carbon Dioxide Anion Gap BUN Creatinine Creat Clearance w eGFR POC Glucometer 112 153 114 Random Glucose Lactic Acid Calcium Phosphorus Magnesium Total Bilirubin AST ALT Alkaline Phosphatase Creatine Kinase Creatine Kinase Index CK-MB (CK-2) Troponin I Total Protein Albumin Triglycerides Cholesterol Total LDL Cholesterol HDL Cholesterol Cortisol AM Sample Urine Color Urine Appearance Urine pH Ur Specific [place] Urine Protein Urine Glucose (UA) Urine Ketones Urine Blood Urine Nitrite Urine Bilirubin Urine Urobilinogen Ur Leukocyte Esterase Urine WBC (Auto) Urine RBC (Auto) Urine Bacteria Hyaline Casts Urine Mucus Random Vancomycin Blood Type Antibody Screen Prewarmed Antibody Srcn Antibody Identification Antigen Identification Crossmatch 11/29/18 11/30/18 11/30/18 23:18 05:23 06:15 WBC RBC Hgb Hct MCV MCH MCHC RDW Plt Count MPV Absolute Neuts (auto) Neutrophils % Lymphocytes % Monocytes % Eosinophils % Basophils % Nucleated RBC % PT with INR INR Anticoagulation Therapy Puncture Site ABG pH ABG pCO2 at Pt Temp ABG pO2 at Pt Temp ABG HCO3 ABG O2 Sat (Measured) ABG O2 Content ABG Base Excess Johan Test Carboxyhemoglobin Methemoglobin O2 Delivery Device Oxygen Flow Rate Vent Mode Vent Rate Mechanical Rate Pressure Support Vent Sodium Potassium Chloride Carbon Dioxide Anion Gap BUN Creatinine Creat Clearance w eGFR POC Glucometer 106 80 Random Glucose Lactic Acid Calcium Phosphorus Magnesium Total Bilirubin AST ALT Alkaline Phosphatase Creatine Kinase Creatine Kinase Index CK-MB (CK-2) Troponin I Total Protein Albumin Triglycerides Cholesterol Total LDL Cholesterol HDL Cholesterol Cortisol AM Sample 10.9 Urine Color Urine Appearance Urine pH Ur Specific [place] Urine Protein Urine Glucose (UA) Urine Ketones Urine Blood Urine Nitrite Urine Bilirubin Urine Urobilinogen Ur Leukocyte Esterase Urine WBC (Auto) Urine RBC (Auto) Urine Bacteria Hyaline Casts Urine Mucus Random Vancomycin Blood Type Antibody Screen Prewarmed Antibody Srcn Antibody Identification Antigen Identification Crossmatch 11/30/18 11/30/18 11/30/18 06:30 06:30 12:10 WBC 9.1 RBC 3.14 L Hgb 9.6 L Hct 29.7 L MCV 94.7 MCH 30.5 MCHC 32.2 RDW 17.9 H Plt Count 289 MPV 8.9 Absolute Neuts (auto) Neutrophils % Lymphocytes % Monocytes % Eosinophils % Basophils % Nucleated RBC % PT with INR INR Anticoagulation Therapy Puncture Site ABG pH ABG pCO2 at Pt Temp ABG pO2 at Pt Temp ABG HCO3 ABG O2 Sat (Measured) ABG O2 Content ABG Base Excess Johan Test Carboxyhemoglobin Methemoglobin O2 Delivery Device Oxygen Flow Rate Vent Mode Vent Rate Mechanical Rate Pressure Support Vent Sodium 142 Potassium 3.7 Chloride 106 Carbon Dioxide 30 Anion Gap 7 L BUN 18 Creatinine 4.3 H Creat Clearance w eGFR 13.57 POC Glucometer Random Glucose 72 L Lactic Acid Calcium 7.8 L Phosphorus Magnesium Total Bilirubin AST ALT Alkaline Phosphatase Creatine Kinase Creatine Kinase Index CK-MB (CK-2) Troponin I Total Protein Albumin Triglycerides Cholesterol Total LDL Cholesterol HDL Cholesterol Cortisol AM Sample Urine Color Urine Appearance Urine pH Ur Specific [place] Urine Protein Urine Glucose (UA) Urine Ketones Urine Blood Urine Nitrite Urine Bilirubin Urine Urobilinogen Ur Leukocyte Esterase Urine WBC (Auto) Urine RBC (Auto) Urine Bacteria Hyaline Casts Urine Mucus Random Vancomycin 17.5 L Blood Type Antibody Screen Prewarmed Antibody Srcn Antibody Identification Antigen Identification Crossmatch 12/01/18 12/01/18 12/01/18 06:30 06:30 11:54 WBC 9.2 RBC 3.10 L Hgb 9.3 L Hct 29.1 L MCV 94.1 MCH 30.1 MCHC 32.0 RDW 18.1 H Plt Count 294 MPV 8.3 Absolute Neuts (auto) Neutrophils % Lymphocytes % Monocytes % Eosinophils % Basophils % Nucleated RBC % PT with INR INR Anticoagulation Therapy Puncture Site ABG pH ABG pCO2 at Pt Temp ABG pO2 at Pt Temp ABG HCO3 ABG O2 Sat (Measured) ABG O2 Content ABG Base Excess Johan Test Carboxyhemoglobin Methemoglobin O2 Delivery Device Oxygen Flow Rate Vent Mode Vent Rate Mechanical Rate Pressure Support Vent Sodium 140 Potassium 3.5 Chloride 103 Carbon Dioxide 31 Anion Gap 6 L BUN 13 Creatinine 3.6 H Creat Clearance w eGFR 16.66 POC Glucometer 125 Random Glucose 82 Lactic Acid Calcium 8.2 L Phosphorus Magnesium Total Bilirubin 0.2 AST 24 ALT < 6 L Alkaline Phosphatase 115 Creatine Kinase Creatine Kinase Index CK-MB (CK-2) Troponin I Total Protein 6.8 Albumin 1.9 L Triglycerides Cholesterol Total LDL Cholesterol HDL Cholesterol Cortisol AM Sample Urine Color Urine Appearance Urine pH Ur Specific [place] Urine Protein Urine Glucose (UA) Urine Ketones Urine Blood Urine Nitrite Urine Bilirubin Urine Urobilinogen Ur Leukocyte Esterase Urine WBC (Auto) Urine RBC (Auto) Urine Bacteria Hyaline Casts Urine Mucus Random Vancomycin Blood Type Antibody Screen Prewarmed Antibody Srcn Antibody Identification Antigen Identification Crossmatch 12/01/18 12/01/18 12/02/18 16:19 23:18 05:55 WBC RBC Hgb Hct MCV MCH MCHC RDW Plt Count MPV Absolute Neuts (auto) Neutrophils % Lymphocytes % Monocytes % Eosinophils % Basophils % Nucleated RBC % PT with INR INR Anticoagulation Therapy Puncture Site ABG pH ABG pCO2 at Pt Temp ABG pO2 at Pt Temp ABG HCO3 ABG O2 Sat (Measured) ABG O2 Content ABG Base Excess Johan Test Carboxyhemoglobin Methemoglobin O2 Delivery Device Oxygen Flow Rate Vent Mode Vent Rate Mechanical Rate Pressure Support Vent Sodium Potassium Chloride Carbon Dioxide Anion Gap BUN Creatinine Creat Clearance w eGFR POC Glucometer 84 104 79 Random Glucose Lactic Acid Calcium Phosphorus Magnesium Total Bilirubin AST ALT Alkaline Phosphatase Creatine Kinase Creatine Kinase Index CK-MB (CK-2) Troponin I Total Protein Albumin Triglycerides Cholesterol Total LDL Cholesterol HDL Cholesterol Cortisol AM Sample Urine Color Urine Appearance Urine pH Ur Specific [place] Urine Protein Urine Glucose (UA) Urine Ketones Urine Blood Urine Nitrite Urine Bilirubin Urine Urobilinogen Ur Leukocyte Esterase Urine WBC (Auto) Urine RBC (Auto) Urine Bacteria Hyaline Casts Urine Mucus Random Vancomycin Blood Type Antibody Screen Prewarmed Antibody Srcn Antibody Identification Antigen Identification Crossmatch 12/02/18 12/02/18 11:05 16:53 WBC RBC Hgb Hct MCV MCH MCHC RDW Plt Count MPV Absolute Neuts (auto) Neutrophils % Lymphocytes % Monocytes % Eosinophils % Basophils % Nucleated RBC % PT with INR INR Anticoagulation Therapy Puncture Site ABG pH ABG pCO2 at Pt Temp ABG pO2 at Pt Temp ABG HCO3 ABG O2 Sat (Measured) ABG O2 Content ABG Base Excess Johan Test Carboxyhemoglobin Methemoglobin O2 Delivery Device Oxygen Flow Rate Vent Mode Vent Rate Mechanical Rate Pressure Support Vent Sodium Potassium Chloride Carbon Dioxide Anion Gap BUN Creatinine Creat Clearance w eGFR POC Glucometer 111 85 Random Glucose Lactic Acid Calcium Phosphorus Magnesium Total Bilirubin AST ALT Alkaline Phosphatase Creatine Kinase Creatine Kinase Index CK-MB (CK-2) Troponin I Total Protein Albumin Triglycerides Cholesterol Total LDL Cholesterol HDL Cholesterol Cortisol AM Sample Urine Color Urine Appearance Urine pH Ur Specific [place] Urine Protein Urine Glucose (UA) Urine Ketones Urine Blood Urine Nitrite Urine Bilirubin Urine Urobilinogen Ur Leukocyte Esterase Urine WBC (Auto) Urine RBC (Auto) Urine Bacteria Hyaline Casts Urine Mucus Random Vancomycin Blood Type Antibody Screen Prewarmed Antibody Srcn Antibody Identification Antigen Identification Crossmatch Active Medications Generic Name Dose Route Start Last Admin Trade Name Jaq PRN Reason Stop Dose Admin Acetaminophen 650 mg 11/27/18 19:30 12/03/18 08:03 Tylenol - PO 650 mg Q6H PRN Administration PAIN LEVEL 1-5 Apixaban 5 mg 11/27/18 22:00 12/03/18 09:17 Eliquis - PO 5 mg BID CHANTELL Administration Atorvastatin Calcium 20 mg 11/27/18 22:00 12/02/18 22:04 Lipitor - PO 20 mg HS CHANTELL Administration Chlorhexidine Gluconate 1 applic 11/27/18 22:00 12/02/18 23:39 Hibiclens For Decolonization - TP Not Given HS [facility] Clopidogrel Bisulfate 75 mg 11/28/18 10:00 12/03/18 09:17 Plavix - PO 75 mg DAILY CHANTELL Administration Collagenase 1 applic 11/28/18 10:00 12/03/18 09:17 Santyl - TP 1 applic DAILY CHANTELL Administration Protocol Dextrose 25 gm 11/27/18 19:30 D50w (Vial) - IVPUSH PRN PRN HYPOGLYCEMIA Escitalopram Oxalate 10 mg 11/28/18 10:00 12/03/18 09:17 Lexapro - PO 10 mg DAILY CHANTELL Administration Midodrine 10 mg 11/28/18 08:00 12/03/18 09:17 Proamatine - PO 10 mg [id number] CHANTELL Administration Multi-Ingredient Ointment 1 gm 11/27/18 22:00 12/03/18 09:18 Zinc Oxide 20% Topical Oint TP 1 applic BID CHANTELL Administration Pantoprazole Sodium 40 mg 11/28/18 10:00 12/03/18 09:17 Protonix Iv IVPUSH 40 mg DAILY CHANTELL Administration Sevelamer Carbonate 1,600 mg 11/28/18 08:00 12/03/18 11:46 Renvela - PO Not Given TIDCM CHANTELL Tamsulosin HCl 0.4 mg 11/27/18 22:00 12/02/18 22:04 Flomax - PO 0.4 mg HS CHANTELL Administration Microbiology 12/01/18 11:10 Stool Salmonella/Shigella Culture - Preliminary Non Lactose Fermenting Gnb 12/01/18 11:10 Stool Campylobacter Culture - Final NO GROWTH OF CAMPYLOBACTER SPECIES OBTAINED 12/01/18 11:10 Stool Yersinia Culture - Final NO GROWTH OF YERSINIA SPECIES OBTAINED 12/01/18 11:10 Stool Vibrio Culture - Final NO GROWTH OF VIBRIO SPECIES OBTAINED 12/01/18 11:10 Stool Escherichia coli 0157 Culture - Final NO GROWTH OF E COLI 0157 OBTAINED 11/22/18 00:40 Blood - Peripheral Venous Blood Culture - Final NO GROWTH AFTER 5 DAYS INCUBATION 11/22/18 00:40 Blood - Peripheral Venous Blood Culture - Final NO GROWTH AFTER 5 DAYS INCUBATION Condition: Stable - Instructions Diet, Activity, Other Instructions: follow up with HD on scheduled days 1L fluid restriction 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 continue with current medication as prescribed return to ER if falls, change in mental status, fluid overload, chest pain, SOB Referrals: Layla Henriquez MD [Staff Physician] - Hugo Sanches MD [Staff Physician] - Bimal Coulter MD [Staff Physician] - Disposition: LONG-TERM FACILITY - Home Medications Comprehensive Discharge Medication List: Ambulatory Orders Albuterol 2.5/Ipratropium 0.5 [Duoneb -] 1 amp NEB Q6H PRN #0 amp 07/12/17 Allopurinol [Zyloprim -] 100 mg PO DAILY tablet 07/12/17 Atorvastatin Ca [Lipitor] 20 mg PO HS tablet 07/12/17 Clopidogrel Bisulfate [Plavix -] 75 mg PO DAILY tablet 07/12/17 Collagenase Clostridium Hist. [Santyl -] 250 unit TP DAILY 08/31/18 Lisinopril 10 mg PO DAILY 08/31/18 Collagenase Clostridium Hist. [Santyl -] 1 applic TP DAILY tube 09/06/18 Albuterol Sulfate [Proair Hfa] 2 puff IH Q6H PRN 10/29/18 Escitalopram Oxalate [Lexapro -] 10 mg PO DAILY 10/29/18 Folic Acid/Vit B Complex and C [Dialyvite Tablet] 1 each PO DAILY 10/29/18 Insulin Lispro [Humalog Kwikpen U-100] 0 unit SQ ACHS 10/29/18 Midodrine HCl 10 mg PO MOWEFR 10/29/18 Sevelamer Carbonate [Renvela -] 1,600 mg PO TID 10/29/18 Tamsulosin HCl [Flomax] 0.4 mg PO HS 10/29/18 Zinc Oxide 20% Topical Oint 454 gm NR BID 10/29/18 Ceftaroline Fosamil Acetate [Teflaro (Restricted To Id)] 200 mg IVPB BID vial 11/17/18 Insulin Sliding Scale [Novolog Vial Sliding Scale -] 1 vial SQ TIDAC #1 vial Apixaban [Eliquis -] 5 mg PO BID #30 tablet MDD 2 11/19/18 Vancomycin 1 Gram (Pre-Docked) [Vancomycin (Pre-Docked)] 1,000 mg IVPB Q2D #14 bag 11/19/18
[2018-12-03 19:14] VITALS: BP 142/70; PULSE 92; TEMP 97.7
[2018-12-04 23:12] LABS: HBSAG SCREEN Negative (Negative); HEP A AB, IGM Negative (Negative); HEP B CORE AB, TOT Positive (Negative)
== END 2018-12-03 19:34 | DRG 871 ==
LOC: JER 20:14 → JERBED 22:57 → JICU 11-22 04:42 → J8W 11-27 18:05 → JICU 11-27 18:06 → J7W 11-27 20:39
PROVIDERS: ADMIT Family Medicine; ATTEND Family Medicine
PROC: 5A1945Z Respiratory Ventilation, 24-96 Consecutive Hours (ICD-10-PCS; principal; 2018-11-21)
PROC: 0BH17EZ Insertion of Endotracheal Airway into Trachea, Via Natural or Artificial Opening (ICD-10-PCS; 2018-11-21)
PROC: 05HM33Z Insertion of Infusion Device into Right Internal Jugular Vein, Percutaneous Approach (ICD-10-PCS; 2018-11-22)
PROC: 30233N1 Transfusion of Nonautologous Red Blood Cells into Peripheral Vein, Percutaneous Approach (ICD-10-PCS; 2018-11-23)
PROC: 0WH Anatomical Regions, General, Insertion (ICD-10-PCS; 2018-11-27)
PROC: 5A1D70Z Performance of Urinary Filtration, Intermittent, Less than 6 Hours Per Day (ICD-10-PCS; 2018-12-03)
DX: A41.9 Sepsis, unspecified organism (principal); J96.01 Acute respiratory failure with hypoxia; N18.6 End stage renal disease; J18.9 Pneumonia, unspecified organism; G92 Toxic encephalopathy; J98.11 Atelectasis; I12.0 Hypertensive chronic kidney disease with stage 5 chronic kidney disease or end stage renal disease; I95.9 Hypotension, unspecified; K80.20 Calculus of gallbladder without cholecystitis without obstruction; I73.9 Peripheral vascular disease, unspecified; L89.322 Pressure ulcer of left buttock, stage 2; L89.512 Pressure ulcer of right ankle, stage 2; L89.629 Pressure ulcer of left heel, unspecified stage; E78.5 Hyperlipidemia, unspecified; Z99.2 Dependence on renal dialysis; E11.22 Type 2 diabetes mellitus with diabetic chronic kidney disease; R00.0 Tachycardia, unspecified; M10.9 Gout, unspecified; I48.91 Unspecified atrial fibrillation; J44.9 Chronic obstructive pulmonary disease, unspecified; D63.1 Anemia in chronic kidney disease
CPT/HCPCS: 36415; 36430; 36600; 70450-TC; 71045-TC-FY; 76000-TC-FY; 76700-TC; 80048; 80053; 81003; 81015; 82375; 82465; 82533; 82550; 82553; 82803; 82962; 83050; 83605; 83718; 83721; 83735; 84100; 84478; 84484; 85025; 85027; 85610; 86704; 86706; 86708; 86803; 86850; 86870; 86900; 86901; 86902; 86922; 87040; 87045; 87046; 87186; 87340; 93005; 93010; 93306-TC; 94002; 94640; 94760; 97161-GP; 99283-25; G0480; J0131; J0885; J1644; J7030; P9038; P9058

== ENCOUNTER 2019-01-09 20:48 | Inpatient (IN) | payer OTHER ==
--- NOTE | 2019-01-09 20:57 | PDOC ---
History of Present Illness - History of Present Illness Initial Comments: 01/09/19 20:54 73 yo M with h/o DM, HTN, A-fib (on Eliquis) , HLD, ESRD on HD, CVA, COPD BIBEMS with BL feet and heel wound. Patient referred to ED by wound care Dr. Crandall for right foot amputation. Documentation from [facility] states patient with necrosis/gangrene of right foot, despite MRSA medication treatment failure. Patient unable to provide history d/t baseline dementia, and slightly non verbal/non communicative at baseline. Recently admitted [facility] 11/2017 MRSA bacteremia, PNA, resp failure, endocarditis. PMHx: as noted above ROS: as noted Allergies: NKDA PMD: Rangel Morel <Joss Orellana - Last Filed: 01/09/19 23:44> <Yuli Pope - Last Filed: 01/10/19 00:34> - General Stated Complaint: SENT BY DR Gina Seen by Provider: 01/09/19 20:52 Past History - Past Medical History Cardiac Disorders: Yes (ASHD, AF) CVA: Yes COPD: Yes CHF: Yes Dementia: Yes Diabetes: Yes HTN: Yes Hypercholesterolemia: Yes - Suicide/Smoking/Psychosocial Hx Smoking History: Unknown if ever smoked Have you smoked in the past 12 months: No Hx Alcohol Use: No Drug/Substance Use Hx: No Substance Use Type: None Hx Substance Use Treatment: No <Joss Orellana - Last Filed: 01/09/19 23:44> <Yuli Pope - Last Filed: 01/10/19 00:34> - Past Medical History Allergies/Adverse Reactions: Allergies Allergy/AdvReac Type Severity Reaction Status Date / Time watermelon Allergy Unknown Verified 10/29/18 06:33 melon Allergy Verified 10/29/18 06:33 No Known Drug Allergies Allergy Verified 10/29/18 06:34 Home Medications: Ambulatory Orders Albuterol 2.5/Ipratropium 0.5 [Duoneb -] 1 amp NEB Q6H PRN #0 amp 07/12/17 Allopurinol [Zyloprim -] 100 mg PO DAILY tablet 07/12/17 Atorvastatin Ca [Lipitor] 20 mg PO HS tablet 07/12/17 Clopidogrel Bisulfate [Plavix -] 75 mg PO DAILY tablet 07/12/17 Collagenase Clostridium Hist. [Santyl -] 250 unit TP DAILY 08/31/18 Lisinopril 10 mg PO DAILY 08/31/18 Collagenase Clostridium Hist. [Santyl -] 1 applic TP DAILY tube 09/06/18 Albuterol Sulfate [Proair Hfa] 2 puff IH Q6H PRN 10/29/18 Escitalopram Oxalate [Lexapro -] 10 mg PO DAILY 10/29/18 Folic Acid/Vit B Complex and C [Dialyvite Tablet] 1 each PO DAILY 10/29/18 Insulin Lispro [Humalog Kwikpen U-100] 0 unit SQ ACHS 10/29/18 Midodrine HCl 10 mg PO MOWEFR 10/29/18 Sevelamer Carbonate [Renvela -] 1,600 mg PO TID 10/29/18 Tamsulosin HCl [Flomax] 0.4 mg PO HS 10/29/18 Zinc Oxide 20% Topical Oint 454 gm NR BID 10/29/18 Ceftaroline Fosamil Acetate [Teflaro (Restricted To Id)] 200 mg IVPB BID vial 11/17/18 Insulin Sliding Scale [Novolog Vial Sliding Scale -] 1 vial SQ TIDAC #1 vial Apixaban [Eliquis -] 5 mg PO BID #30 tablet MDD 2 11/19/18 Vancomycin 1 Gram (Pre-Docked) [Vancomycin (Pre-Docked)] 1,000 mg IVPB Q2D #14 bag 11/19/18 Review of Systems - Review of Systems Comments:: 01/09/19 20:56 Unable to obtain 13 point ROS inspection. <Joss Orellana - Last Filed: 01/09/19 23:44> *Physical Exam - Physical Exam Comments: 01/09/19 20:56 GENERAL: Awake, alert, oriented x 1 , in no acute distress. Partially able to follow commands. HEAD: No signs of trauma, normocephalic, atraumatic EYES: PERRLA, EOMI, sclera anicteric, conjunctiva clear ENT: Hearing grossly normal, nares patent, oropharynx clear without exudates. Moist mucosa NECK: Normal ROM, supple, no lymphadenopathy, JVD, or masses LUNGS: No distress, speaks full sentences, clear to auscultation bilaterally HEART: Regular rate and rhythm, normal S1 and S2, no murmurs, rubs or gallops, peripheral pulses normal and equal bilaterally. ABDOMEN: Soft, nontender, normoactive bowel sounds. No guarding, no rebound. No masses EXTREMITIES : Right foot with 8 x 2 cm area of full tissue thickness tissue loss , on lateral aspect of right foot, proximal to lateral malleolus, with 2 cm area of surrounding erythema, and partial undermining/sloughing of skin. No obvious bony visualization. Remainder of right foot with skin breakdown, and partial thickness loss of dermis and pink wound bed. left medial heel 2 x 2 cm area of full tissue thickness loss, and surrounding partial thickness loss. R >L foul odorous, black discoloration of skin. Pulses weak thready BL LE DP/PT. Otherwise upper extremities Normal inspection, Normal range of motion, no edema. No clubbing or cyanosis. NEUROLOGICAL: Cranial nerves II through XII grossly intact. Normal speech, normal gait, no focal sensorimotor deficits SKIN:+ Left chest HD cath. Warm, Dry, normal turgor, no rashes or lesions noted <Joss Orellana - Last Filed: 01/09/19 23:44> - Vital Signs Last Vital Signs Temp Pulse Resp BP Pulse Ox 97.0 F L 115/87 01/09/19 23:58 01/09/19 23:21 <Yuli Pope - Last Filed: 01/10/19 00:34> Heart Score/ECG Review #1 ECG reviewed & interpreted by me at: 00:20 General ECG Interpretation: Sinus Rhythm 01/10/19 00:33 NSR, limited by artifact; nonspecific T wave abnormalities, no ST segment elevations <Yuli Pope - Last Filed: 01/10/19 00:34> ED Treatment Course - LABORATORY CBC & Chemistry Diagram: 01/09/19 21:20 01/09/19 21:20 <Joss Orellana - Last Filed: 01/09/19 23:44> - LABORATORY CBC & Chemistry Diagram: 01/09/19 21:20 01/09/19 21:20 - ADDITIONAL ORDERS Additional order review: Laboratory Results 01/09/19 01/09/19 01/09/19 21:30 21:20 21:20 PT with INR INR PTT (Actin FS) Cancelled VBG pH 7.37 POC VBG pCO2 52.2 H POC VBG pO2 36.6 VBG HCO3 29.3 H VBG O2 Sat (Bev) 65.7 L VBG Base Excess 3.8 H Sodium Potassium Chloride Carbon Dioxide Anion Gap BUN Creatinine Creat Clearance w eGFR Random Glucose Lactic Acid 1.3 Calcium Total Bilirubin AST ALT Alkaline Phosphatase C-Reactive Protein Total Protein Albumin 01/09/19 01/09/19 01/09/19 21:20 21:20 21:20 PT with INR 18.50 H INR 1.56 H PTT (Actin FS) 48.1 H VBG pH POC VBG pCO2 POC VBG pO2 VBG HCO3 VBG O2 Sat (Bev) VBG Base Excess Sodium 136 Potassium 3.2 L Chloride 100 Carbon Dioxide 28 Anion Gap 8 BUN 8 Creatinine 1.7 H Creat Clearance w eGFR 39.60 Random Glucose 99 Lactic Acid Calcium 8.7 Total Bilirubin 0.3 AST 19 ALT 16 Alkaline Phosphatase 179 H C-Reactive Protein 18.1 H Total Protein 7.4 Albumin 1.8 L 01/09/19 21:20 RBC 3.30 L MCV 92.1 MCHC 32.9 RDW 17.0 H MPV 8.3 Neutrophils % 75.0 Lymphocytes % 15.8 D Monocytes % 8.6 D Eosinophils % 0.2 D Basophils % 0.4 - Medications Given in the ED: ED Medications Discontinued Medications Generic Name Dose Route Start Last Admin Trade Name Jaq PRN Reason Stop Dose Admin Piperacillin Sod/Tazobactam 100 mls @ 200 mls/hr 01/09/19 21:21 01/10/19 00: 23 Sod 4.5 gm/ Dextrose IVPB 01/09/19 21:50 200 mls/hr ONCE ONE Administration Protocol Sodium Chloride 4,350 mls @ 2,175 mls/hr 01/09/19 22:08 01/09/19 22:18 Normal Saline - 30 ml/kg infuse over 2 hr (4350 ml) 01/10/19 00:07 2,175 mls/hr IV Administration ONCE ONE Vancomycin HCl 1,000 mg 01/09/19 21:21 01/09/19 22:26 Vancomycin (Pre-Docked) IVPB 01/09/19 21:22 1,000 mg ONCE ONE Administration Protocol <Yuli Pope - Last Filed: 01/10/19 00:34> Medical Decision Making - Medical Decision Making 01/09/19 21:29 73 yo M with h/o DM, HTN, peripheral vasular dz., dementia, A-fib (on Eliquis) , HLD, ESRD on HD, CVA, COPD BIBEMS from [facility] ( [facility]) with left heel wound. BP 76/30, AF, Alert, responsive, oriented to self, physical exam notable for Right foot with 8 x 2 cm area of full tissue thickness tissue loss, on lateral aspect of right foot, proximal to lateral malleolus, with 2 cm area of surrounding erythema, and partial undermining/sloughing of skin. Remainder of right foot with skin breakdown, and partial thickness loss of dermis and pink wound bed. left medial heel 2 x 2 cm area of full tissue thickness loss, and surrounding partial thickness loss. R>L foul odorous, black discoloration of skin. BL LE DP/PT pulses weak thready. Patient with sepsis, suspected dry gangrenous, narcotized tissue of right foot, with BL foot wounds/ ulcers. Will evaluate for possible osteomyleitis. Ed Course: Sepsis protocol and Post op labs pending Wound and blood cx. obtained Vanc/zosyn broad spectrum tx. initiated 10 cc/kg wt. based fluids. Gentle hydration ~ ESRD consult siomara Laboratory Tests 01/09/19 01/09/19 01/09/19 21:20 21:20 21:20 WBC 9.8 Hgb 10.0 L Hct 30.4 L VBG pH POC VBG pCO2 VBG HCO3 Potassium 3.2 L BUN 8 Creatinine 1.7 H C-Reactive Protein 18.1 H 01/09/19 21:20 WBC Hgb Hct VBG pH 7.37 POC VBG pCO2 52.2 H VBG HCO3 29.3 H Potassium BUN Creatinine C-Reactive Protein 01/09/19 23:24 Selected Entries 01/09/19 01/09/19 21:10 23:21 Temperature 98.3 F Blood Pressure 115/87 [Right Arm] Blood Pressure Supine Position [Right Arm] 01/09/19 23:42 Patient endorsed to [place] [facility]. Admit to tele inpt. 01/09/19 23:44 <Joss Orellana - Last Filed: 01/09/19 23:44> *DC/Admit/Observation/Transfer - Discharge Dispostion Decision to Admit order: Yes <Joss Orellana - Last Filed: 01/09/19 23:44> <Yuli Pope - Last Filed: 01/10/19 00:34> Diagnosis at time of Disposition: Gangrene of foot Sepsis Qualifiers: Sepsis type: sepsis due to unspecified organism Qualified Code(s): A41.9 - Sepsis, unspecified organism - Discharge Dispostion Condition at time of disposition: Stable
[2019-01-09] MEDS ORDERED: VANCOMYCIN 1 GM in D5W (PRE-DOCKED) 1,000 MG/250 ML IVPB ONE (21:21)
[2019-01-09] MEDS ORDERED: PIPERACILLIN/TAZOB 4.5 GM 4.5 GM in DEXTROSE 5%-WATER 100 ML IVPB ONE (21:21)
--- NOTE | 2019-01-09 21:53 | PDOC ---
Attending Attestation - Resident Resident Name: Joss Orellana - ED Attending Attestation I have performed the following: I have examined & evaluated the patient, The case was reviewed & discussed with the resident, I agree w/resident's findings & plan - HPI HPI: 01/09/19 21:49 The patient is a 73 year old male, with a significant past medical history of DM , HTN, HLD, A-fib (on Eliquis), prior CVA, COPD BIBEMS, UTI, and ESRD on dialysis (MWF) who presents to the emergency department, via EMS with bilateral nonhealing ulcerative foot wounds with worsening gangrene, right>left, referred by PMD, for amputation with Dr. Crandall. The patient was recently admitted and discharged from [facility] on 12/11 for MRSA bacteremia, PNA. The patient is non verbal and is a poor historian due to his dementia, however, documentation from [facility] states the patient has necrosis/gangrene of right foot, despite MRSA medication treatment. Allergies: NKDA Past surgical history: as documented in EMR Past medical history: see HPI Social history: [facility] PCP: Rangel Hansen - Physicial Exam PE: 01/09/19 21:51 Agree with the resident's HPI and PE as documented in the electronic medical record. somnolent, awake and demented. PERRL, EOMI, very dry mucus membranes, nl conjunctiva, anicteric; neck supple. lungs clear, no respiratory distress, + irreg irregular. abdomen soft nontender. HAWKINS x4, No peripheral edema. normal color for ethnicity, cool and very dry skin. of note, bilateral foot wounds: right dorsum with desquamatization, dry gangrene with ulcerations, +swelling and warmth. left heel on medial aspect with deep ulcerative wound, +sanguinous drainage. - Medical Decision Making 01/09/19 21:52 I, Yuli Pope MD, attest that this document has been prepared under my direction and personally reviewed by me in its entirety. I further attest, that it accurately reflects all work, treatment, procedures and medical decision -making performed by me. See HPI for details Vital signs reviewed, hypotensive. no fever here, no respiratory distress. Prior notes reviewed, including admissions, discharges and consultations. laboratory results and imaging reviewed, basic labs and lytes wnl, notable for baseline anemia, no wbc ct. no acidosis. coags normal lactic normal, reassuring. mildly hypokalemic, corrected with Krider x3 blood and wound cultures obtained (from the ulcerative wounds sites bilaterally) . ED course - empiric IV abx, with multiple comorbidities, IV vancomycin and zosyn. gentle fluids, as ESRD - noted to be hypotensive here. recheck after 1 L will be responsive, caution with ESRD. pt appears hypovolemic. rpt VS improved, no longer hypotensive, fluid responsive. - admit for IV abx, possible surgical amputation of gangrenous foot wounds, with right > left, poorly healing and multiple comorbidities. admit for foot gangrene and further med/surg management. admit to hospitalist overnight, previously to Dr Clarke service, s/o to [facility] inpatient cs with vascular/wound service 01/10/19 00:33
[2019-01-09] MEDS ORDERED: SODIUM CHLORIDE IV ONE (22:08)
[2019-01-09 22:21] LABS: BASO % 0.4 % (0-2.0); EOS % 0.2 % (0-4.5); HEMATOCRIT 30.4 % (35.4-49); LYMPH % 15.8 % (8-40); MCH 30.3 pg (25.7-33.7); MCHC 32.9 g/dl (32.0-35.9); MEAN CELL VOLUME 92.1 fl (80-96); MEAN PLT VOLUME 8.3 fl (7.5-11.1); MONO % 8.6 % (3.8-10.2); PLATELET COUNT 463 K/MM3 (134-434); WHITE BLOOD COUNT 9.8 K/mm3 (4.0-10.0)
[2019-01-09] MEDS ORDERED: VANCOMYCIN 1 GRAM (PRE-DOCKED) 1,000 MG/250 ML BAG IVPB ONE (22:21)
[2019-01-09] MEDS ORDERED: PIPERACILLIN/TAZOB 4.5 GM 4.5 GM/100 ML BAG IVPB ONE (22:21)
[2019-01-09 22:22] LABS: VENOUS PC02 52.2 mmHg (41-51); VENOUS PH 7.37 (7.31-7.41); VENOUS PO2 36.6 mmHg (30-40)
[2019-01-09] MEDS ORDERED: SODIUM CHLORIDE 1,000 ML IV STA (22:27)
[2019-01-09 22:31] LABS: INR 1.56 (0.83-1.09); PROTHROMBIN TIME (PATIENT) 18.5 SEC (9.7-13.0)
[2019-01-09 22:34] LABS: ACTIVATED PTT 48.1 SECONDS (25.2-36.5)
[2019-01-09 22:53] LABS: ALBUMIN 1.8 g/dl (3.4-5.0); ALK PHOS 179 U/L (45-117); ANION GAP 8 MMOL/L (8-16); BILIRUBIN,TOTAL 0.3 mg/dL (0.2-1); BLOOD UREA NITROGEN 8 mg/dL (7-18); CALCIUM 8.7 mg/dL (8.5-10.1); CHLORIDE 100 mmol/L (98-107); CO2 28 mmol/L (21-32); CREATININE 1.7 mg/dL (0.55-1.3); GLUCOSE,RANDOM 99 mg/dL (74-106); POTASSIUM 3.2 mmol/L (3.5-5.1); SGOT/AST 19 U/L (15-37); SGPT/ALT 16 U/L (13-61); SODIUM 136 mmol/L (136-145); TOT PROT 7.4 g/dl (6.4-8.2)
[2019-01-09] MEDS ORDERED: ALBUTEROL SO4 2.5/IPRATROPIUM 0.5 INH SOL 3 ML VIAL.NEB. NEB PRN (23:29)
--- NOTE | 2019-01-09 23:48 | HP ---
Admitting History and Physical - Primary Care Physician PCP: Rangel Morel - Admission Chief Complaint: Gangrene Foot History of Present Illness: This is a 73 y/o man from [facility] with a PMHx of Dementia, PVD, ESRD (M,W,F) , HLD, CVA, DM, COPD with bilateral foot and heel wounds. Who presents to the ED for admission, after wound care eval by Dr. Crandall for right foot amputation. Documentation from OS states patient with necrosis/gangrene of right foot, despite MRSA medication treatment failure. Patient unable to provide history d/t baseline dementia, and slightly non verbal/non communicative at baseline. Recently admitted [facility] 11/2017 MRSA bacteremia, PNA, Resp Failure, Endocarditis. 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 Cardiovascular: Yes: AFIB, CAD (PVD), CHF, HTN, Hyperlipdemia Pulmonary: Yes: COPD Renal/: Yes: Renal Failure, Hemodialysis Endocrine: Yes: Diabetes Mellitus - Smoking History Smoking history: Unknown if ever smoked Have you smoked in the past 12 months: No - Alcohol/Substance Use Hx Alcohol Use: No - Social History Usual Living Arrangement: Yes: Snf ADL: Support Services History of Recent Travel: No Home Medications - Allergies Allergies/Adverse Reactions: Allergies Allergy/AdvReac Type Severity Reaction Status Date / Time watermelon Allergy Unknown Verified 10/29/18 06:33 melon Allergy Verified 10/29/18 06:33 No Known Drug Allergies Allergy Verified 10/29/18 06:34 - Home Medications Home Medications: Ambulatory Orders Albuterol 2.5/Ipratropium 0.5 [Duoneb -] 1 amp NEB Q6H PRN #0 amp 07/12/17 Allopurinol [Zyloprim -] 100 mg PO DAILY tablet 07/12/17 Atorvastatin Ca [Lipitor] 20 mg PO HS tablet 07/12/17 Clopidogrel Bisulfate [Plavix -] 75 mg PO DAILY tablet 07/12/17 Collagenase Clostridium Hist. [Santyl -] 250 unit TP DAILY 08/31/18 Lisinopril 10 mg PO DAILY 08/31/18 Collagenase Clostridium Hist. [Santyl -] 1 applic TP DAILY tube 09/06/18 Albuterol Sulfate [Proair Hfa] 2 puff IH Q6H PRN 10/29/18 Escitalopram Oxalate [Lexapro -] 10 mg PO DAILY 10/29/18 Folic Acid/Vit B Complex and C [Dialyvite Tablet] 1 each PO DAILY 10/29/18 Insulin Lispro [Humalog Kwikpen U-100] 0 unit SQ ACHS 10/29/18 Midodrine HCl 10 mg PO MOWEFR 10/29/18 Sevelamer Carbonate [Renvela -] 1,600 mg PO TID 10/29/18 Tamsulosin HCl [Flomax] 0.4 mg PO HS 10/29/18 Zinc Oxide 20% Topical Oint 454 gm NR BID 10/29/18 Ceftaroline Fosamil Acetate [Teflaro (Restricted To Id)] 200 mg IVPB BID vial 11/17/18 Insulin Sliding Scale [Novolog Vial Sliding Scale -] 1 vial SQ TIDAC #1 vial Apixaban [Eliquis -] 5 mg PO BID #30 tablet MDD 2 11/19/18 Vancomycin 1 Gram (Pre-Docked) [Vancomycin (Pre-Docked)] 1,000 mg IVPB Q2D #14 bag 11/19/18 Family Disease History - Family Disease History Family History: Unable to Obtain Review of Systems Unable to obtain ROS, reason: Dementia Physical Examination Vital Signs: Vital Signs Temperature 98.3 F 01/09/19 21:10 Pulse Rate Respiratory Rate Blood Pressure 115/87 01/09/19 23:21 O2 Sat by Pulse Oximetry (%) Constitutional: Yes: No Distress, Calm Eyes: Yes: Conjunctiva Clear, PERRL, Other (dry mucousa) HENT: Yes: Atraumatic, Normocephalic Neck: Yes: Supple, Trachea Midline Cardiovascular: Yes: Regular Rate and Rhythm, S1, S2 Respiratory: Yes: Regular, CTA Bilaterally, On Nasal O2 Gastrointestinal: Yes: Normal Bowel Sounds, Soft Renal/: Yes: Incontinence Breast(s): Yes: WNL Edema: No Wound/Incision: Yes: Other ( bilateral foot wounds: right dorsum with desquamatization, dry gangrene with ulcerations, +swelling and warmth. left heel on medial aspect with deep ulcerative wound, +sanguinous drainage.) Neurological: Yes: Confusion Psychiatric: Yes: Other (Dementia) Labs: CBC, BMP 01/09/19 21:20 01/09/19 21:20 Problem List - Problems (1) Sepsis Assessment/Plan: likely secondary to Gangrene of R> L feet qSOFA 2 IV fluids given in ED Will hold fluids secondary to CKD Vancomycin, Zosyn given in ED continue renal dosing Chest Xray- pending no leukocytosis, lctic acid-nl Appreciate ID consult Appreciate Vascular consult Monitor CBC, BMP Continue cardiac monitoring Maintain MAP > 65 Code(s): A41.9 - SEPSIS, UNSPECIFIED ORGANISM Qualifiers: Sepsis type: sepsis due to unspecified organism Qualified Code(s): A41.9 - Sepsis, unspecified organism (2) Gangrene of foot Assessment/Plan: Appreciate Vascular consult Appreciate Cardiology consult- surgical clearance Continue ABX Code(s): I96 - GANGRENE, NOT ELSEWHERE CLASSIFIED (3) Hypotension Assessment/Plan: Likely secondary to Sepsis NS bolus given in ED Maintain MAP > 65 Continue Midodrine Consider IV pressors if condition worsens Code(s): I95.9 - HYPOTENSION, UNSPECIFIED (4) ESRD (end stage renal disease) Assessment/Plan: Appreciate Nephrology consult for HD Management Continue home meds Code(s): N18.6 - END STAGE RENAL DISEASE (5) PVD (peripheral vascular disease) Assessment/Plan: Appreciate Vascular consult Code(s): I73.9 - PERIPHERAL VASCULAR DISEASE, UNSPECIFIED (6) HLD (hyperlipidemia) Assessment/Plan: Continue Lipitor Monitor LFTs Code(s): E78.5 - HYPERLIPIDEMIA, UNSPECIFIED (7) CVA (cerebral vascular accident) Assessment/Plan: Aspiration Precautions Fall Precautions Code(s): I63.9 - CEREBRAL INFARCTION, UNSPECIFIED (8) Diabetes Assessment/Plan: stable BGMs ISS when diet resumed Code(s): E11.9 - TYPE 2 DIABETES MELLITUS WITHOUT COMPLICATIONS Qualifiers: Diabetes mellitus type: type 2 Assessment/Plan This is a 73 y/o man from [facility] with a PMHx of: Dementia, PVD, ESRD (HD- M , W, F), COPD, CVA (no residuals), HLD, DM. Admitted to Telemetry for Sepsis, Gangrene of R-Foot for further evaluation of their emergent condition. Plan See problem List FEN Replete lytes prn NPO DVT ppx SCDs Heparin SQ Code Status: Full Code Dispo: Requires Inpatient Care Visit type - Emergency Visit Emergency Visit: Yes ED Registration Date: 01/09/19 Care time: The patient presented to the Emergency Department on the above date and was hospitalized for further evaluation of their emergent condition. - New Patient This patient is new to me today: Yes Date on this admission: 01/09/19 - Critical Care Critical Care patient: No
[2019-01-09] MEDS ORDERED: SENNOSIDES 8.6MG TABLET (FP) PO PRN (23:56)
[2019-01-09] MEDS ORDERED: ACETAMINOPHEN 1000 MG/100 ML VIAL (NON FORMULARY) IVPB PRN (23:56)
[2019-01-09] MEDS ORDERED: DOCUSATE SODIUM 100 MG CAPSULE (FP) PO PRN (23:56)
[2019-01-10] MEDS ORDERED: KCL 10 MEQ IVPB 10 MEQ/100 ML INFUS.BAG IVPB ONE ×3 (01:03→01:45)
[2019-01-10] MEDS: KCL 10 MEQ IVPB 10 MEQ/100 ML INFUS.BAG IVPB SCH ×4 (01:07→17:36)
[2019-01-10] MEDS: INSULIN SLIDING SCALE (NOVOLOG) 1 VIAL SQ SCH ×4 (06:01→22:13)
[2019-01-10 06:46] LABS: BASO % 0.6 % (0-2.0); EOS % 0.2 % (0-4.5); HEMATOCRIT 27.4 % (35.4-49); HEMOGLOBIN 8.8 GM/dL (11.7-16.9); LYMPH % 16.1 % (8-40); MCH 29.6 pg (25.7-33.7); MCHC 31.9 g/dl (32.0-35.9); MEAN CELL VOLUME 92.8 fl (80-96); MEAN PLT VOLUME 8.1 fl (7.5-11.1); MONO % 10.7 % (3.8-10.2); NEUT % 72.4 % (42.8-82.8); PLATELET COUNT 423 K/MM3 (134-434); RBC 2.96 M/mm3 (4.00-5.60); RDW 16.8 % (11.9-15.9); WHITE BLOOD COUNT 9.1 K/mm3 (4.0-10.0)
[2019-01-10 07:30] LABS: ALBUMIN 1.5 g/dl (3.4-5.0); ALK PHOS 150 U/L (45-117); ANION GAP 6 MMOL/L (8-16); BILIRUBIN,TOTAL 0.6 mg/dL (0.2-1); BLOOD UREA NITROGEN 9 mg/dL (7-18); CALCIUM 8.3 mg/dL (8.5-10.1); CHLORIDE 102 mmol/L (98-107); CO2 28 mmol/L (21-32); CREATININE 1.9 mg/dL (0.55-1.3); GLUCOSE,RANDOM 100 mg/dL (74-106); MAGNESIUM 1.9 mg/dL (1.8-2.4); N-TERMINAL BNP 3206.7 pg/ml (5-125); PHOSPHOROUS 1.6 mg/dL (2.5-4.9); POTASSIUM 3.1 mmol/L (3.5-5.1); SGOT/AST 14 U/L (15-37); SGPT/ALT 14 U/L (13-61); SODIUM 136 mmol/L (136-145); TOT PROT 6.3 g/dl (6.4-8.2)
[2019-01-10] MEDS ORDERED: PT OWN MED DRAWER 7, Y5N ONE ×2 (08:15→10:10)
--- NOTE | 2019-01-10 08:28 | CONSULT ---
Consult - text type - Consultation Consultation Note: This is 73 year old man seen in Wound Care yesterday with PMH dementia, CVA, DM , ESRD on HD has bilateral leg contractures and osteomyelitis and gangrene of the right lateral foot. He was sent for admission for proep for amputation. Other history reviewed. He will need preop medical clearance and consent from family memeber. I will get OR scheduled for Monday, if possible.
--- NOTE | 2019-01-10 09:26 | CON.CARD ---
Consult Consult Specialty:: Cardiology Reason for Consultation:: preop cardiac evaluation - History of Present Illness History of Present Illness: 73 M with ESRD, HTN, presumed CAD, DM, recurrent S. Aureus infection. He is being evaluated prior to Lower extremity amputation. He is unable to provide a history and has dementia. Has required intubations for PNA and sepsis. Echocardioram 11/2018 normal LV systolic function. No significant valvular pathology. 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 Cardio/Vascular: Yes: AFIB, CAD (PVD), CHF, HTN, Hyperlipdemia Pulmonary: Yes: COPD Renal/: Yes: Renal Failure, Hemodialysis Endocrine: Yes: Diabetes Mellitus - Alcohol/Substance Use Hx Alcohol Use: No - Smoking History Smoking history: Unknown if ever smoked Have you smoked in the past 12 months: No - Social History Usual Living Arrangement: Skilled Nursing ADL: Support Services History of Recent Travel: No Home Medications - Allergies Allergies/Adverse Reactions: Allergies Allergy/AdvReac Type Severity Reaction Status Date / Time watermelon Allergy Unknown Verified 10/29/18 06:33 melon Allergy Verified 10/29/18 06:33 No Known Drug Allergies Allergy Verified 10/29/18 06:34 - Home Medications Home Medications: Ambulatory Orders Albuterol 2.5/Ipratropium 0.5 [Duoneb -] 1 amp NEB Q6H PRN #0 amp 07/12/17 Allopurinol [Zyloprim -] 100 mg PO DAILY tablet 07/12/17 Atorvastatin Ca [Lipitor] 20 mg PO HS tablet 07/12/17 Clopidogrel Bisulfate [Plavix -] 75 mg PO DAILY tablet 07/12/17 Collagenase Clostridium Hist. [Santyl -] 250 unit TP DAILY 08/31/18 Lisinopril 10 mg PO DAILY 08/31/18 Collagenase Clostridium Hist. [Santyl -] 1 applic TP DAILY tube 09/06/18 Albuterol Sulfate [Proair Hfa] 2 puff IH Q6H PRN 10/29/18 Escitalopram Oxalate [Lexapro -] 10 mg PO DAILY 10/29/18 Folic Acid/Vit B Complex and C [Dialyvite Tablet] 1 each PO DAILY 10/29/18 Insulin Lispro [Humalog Kwikpen U-100] 0 unit SQ ACHS 10/29/18 Midodrine HCl 10 mg PO MOWEFR 10/29/18 Sevelamer Carbonate [Renvela -] 1,600 mg PO TID 10/29/18 Tamsulosin HCl [Flomax] 0.4 mg PO HS 10/29/18 Zinc Oxide 20% Topical Oint 454 gm NR BID 10/29/18 Ceftaroline Fosamil Acetate [Teflaro (Restricted To Id)] 200 mg IVPB BID vial 11/17/18 Insulin Sliding Scale [Novolog Vial Sliding Scale -] 1 vial SQ TIDAC #1 vial Apixaban [Eliquis -] 5 mg PO BID #30 tablet MDD 2 11/19/18 Vancomycin 1 Gram (Pre-Docked) [Vancomycin (Pre-Docked)] 1,000 mg IVPB Q2D #14 bag 11/19/18 Review of Systems Unable to obtain ROS, reason: Dementia Vital Signs: Vital Signs Temperature 97.8 F 01/10/19 06:23 Pulse Rate 74 01/10/19 06:23 Respiratory Rate 18 01/10/19 06:23 Blood Pressure 111/52 L 01/10/19 06:23 O2 Sat by Pulse Oximetry (%) 94 L 01/10/19 04:04 Constitutional: Yes: No Distress, Cachectic Eyes: Yes: Conjunctiva Clear, EOM Intact HENT: Yes: Atraumatic, Normocephalic Neck: Yes: Supple, Trachea Midline Respiratory: Yes: Regular, CTA Bilaterally Gastrointestinal: Yes: Normal Bowel Sounds, Soft Cardiovascular: Yes: Regular Rate and Rhythm JVD: No Carotid Bruit: No PMI: Non-Displaced Heart Sounds: Yes: S1, S2 Murmur: No: Systolic Murmur, Diastolic Murmur Edema: No - Other Data Labs, Other Data: CBC, BMP 01/10/19 05:30 01/10/19 05:30 INR, PTT INR 1.56 (0.83-1.09) H 01/09/19 21:20 Troponin, BNP 01/10/19 05:30 B-Natriuretic Peptide 3206.7 H Troponin, BNP 01/10/19 05:30 B-Natriuretic Peptide 3206.7 H NSR lateral T wave abnoramlity. Problem List - Problems (1) Preop cardiovascular exam Code(s): Z01.810 - ENCOUNTER FOR PREPROCEDURAL CARDIOVASCULAR EXAMINATION Assessment/Plan 73 M with ESRD, HTN, presumed CAD, DM, recurrent S. Aureus infection. He is being evaluated prior to Lower extremity amputation. Volume status is stable and he is not overloaded. Has required intubations for PNA and sepsis. Echocardiogram 11/2018 normal LV systolic function. No significant valvular pathology. Due to his multiple commodities the patient is at high risk for cardiac complications but is not a candidate for invasive cardiac interventions. Currently euvolemic. No further cardiac testing is advised at this time.
[2019-01-10] MEDS ORDERED: PIPERACILLIN/TAZOB 2.25 GM 2.25 GM in DEXTROSE 5%-WATER - 50 ML IVPB SCH (10:00)
--- NOTE | 2019-01-10 10:17 | SPA.PREOP ---
- PRE-OP NOTE Dx: Right foot gangrene and osteomyelitis Planned Procedure: Right above the knee amputation Surgeon: Dr. Crandall Last Vital Signs Temp Pulse Resp BP Pulse Ox 97.8 F 74 18 111/52 L 94 L 01/10/19 06:23 01/10/19 06:23 01/10/19 06:23 01/10/19 06:23 01/10/19 04:04 Lab Results WBC 9.1 K/mm3 (4.0-10.0) 01/10/19 05:30 RBC 2.96 M/mm3 (4.00-5.60) L 01/10/19 05:30 Hgb 8.8 GM/dL (11.7-16.9) L 01/10/19 05:30 Hct 27.4 % (35.4-49) L 01/10/19 05:30 MCV 92.8 fl (80-96) 01/10/19 05:30 MCHC 31.9 g/dl (32.0-35.9) L 01/10/19 05:30 RDW 16.8 % (11.9-15.9) H 01/10/19 05:30 Plt Count 423 K/MM3 (134-434) 01/10/19 05:30 Sodium 136 mmol/L (136-145) 01/10/19 05:30 Potassium 3.1 mmol/L (3.5-5.1) L 01/10/19 05:30 Chloride 102 mmol/L (98-107) 01/10/19 05:30 Carbon Dioxide 28 mmol/L (21-32) 01/10/19 05:30 Anion Gap 6 MMOL/L (8-16) L 01/10/19 05:30 BUN 9 mg/dL (7-18) 01/10/19 05:30 Creatinine 1.9 mg/dL (0.55-1.3) H 01/10/19 05:30 Random Glucose 100 mg/dL (74-106) 01/10/19 05:30 Calcium 8.3 mg/dL (8.5-10.1) L 01/10/19 05:30 Blood Type A POSITIVE 01/09/19 21:20 Antibody Screen Positive H 01/09/19 21:20 INR 1.56 (0.83-1.09) H 01/09/19 21:20 Laboratory Tests 01/09/19 21:20 PT with INR 18.50 H INR 1.56 H PTT (Actin FS) 48.1 H - ASSESSMENT/PLAN 1. Make NPO after midnight except po meds 2. Medical optimization / clearance in chart from Records Specialist on 01/10 3. Consent to be obtained by surgeon 4. PRBC on hold for the OR on 01/11 5. Eliquis on hold
[2019-01-10] MEDS: SEVELAMER CARBONATE 800 MG TAB (FP) PO SCH ×3 (10:22→17:37)
[2019-01-10] MEDS: ESCITALOPRAM OXALATE 10 MG TABLET (FP) PO SCH (10:23)
[2019-01-10] MEDS: ALLOPURINOL 100 MG TABLET (FP) PO SCH (10:23)
[2019-01-10] MEDS: ZINC OXIDE 20% TOPICAL OINTMENT 30 GM TUBE TP SCH ×2 (10:25→22:28)
--- NOTE | 2019-01-10 12:13 | EKG ---
Test Reason : Blood Pressure : / mmHG Vent. Rate : 081 BPM Atrial Rate : 081 BPM P-R Int : 188 ms QRS Dur : 086 ms QT Int : 378 ms P-R-T Axes : 041 048 085 degrees QTc Int : 439 ms POOR DATA QUALITY, INTERPRETATION MAY BE ADVERSELY AFFECTED UNDETERMINED RHYTHM T WAVE ABNORMALITY, CONSIDER INFEROLATERAL ISCHEMIA ABNORMAL ECG Confirmed by SONAL VARELA MD ([id number]) on 01/10/2019 12:13:16 PM Referred By: Confirmed By:SONAL VARELA MD
--- NOTE | 2019-01-10 13:40 | CONSULT ---
Consult Consult Specialty:: Nephrology Reason for Consultation:: ESRD - History of Present Illness Chief Complaint: sent in from wound care for right foot amputation History of Present Illness: Pt is a 73 year old male with pmhx of ESRD, DM, HTN, a-fib, CVA, COPD and HLD who was sent in from wound care for right food amputations. I was called to evaluate him as he is in HD. He is confused and is not able to give much history. Chart was reviewed. 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 Cardio/Vascular: Yes: AFIB, CAD (PVD), CHF, HTN, Hyperlipdemia Pulmonary: Yes: COPD Renal/: Yes: Renal Failure, Hemodialysis Endocrine: Yes: Diabetes Mellitus - Alcohol/Substance Use Hx Alcohol Use: No - Smoking History Smoking history: Unknown if ever smoked Have you smoked in the past 12 months: No - Social History Usual Living Arrangement: Long-Term ADL: Support Services History of Recent Travel: No Home Medications - Allergies Allergies/Adverse Reactions: Allergies Allergy/AdvReac Type Severity Reaction Status Date / Time watermelon Allergy Unknown Verified 10/29/18 06:33 melon Allergy Verified 10/29/18 06:33 No Known Drug Allergies Allergy Verified 10/29/18 06:34 - Home Medications Home Medications: Ambulatory Orders Albuterol 2.5/Ipratropium 0.5 [Duoneb -] 1 amp NEB Q6H PRN #0 amp 07/12/17 Allopurinol [Zyloprim -] 100 mg PO DAILY tablet 07/12/17 Atorvastatin Ca [Lipitor] 20 mg PO HS tablet 07/12/17 Clopidogrel Bisulfate [Plavix -] 75 mg PO DAILY tablet 07/12/17 Collagenase Clostridium Hist. [Santyl -] 250 unit TP DAILY 08/31/18 Lisinopril 10 mg PO DAILY 08/31/18 Collagenase Clostridium Hist. [Santyl -] 1 applic TP DAILY tube 09/06/18 Albuterol Sulfate [Proair Hfa] 2 puff IH Q6H PRN 10/29/18 Escitalopram Oxalate [Lexapro -] 10 mg PO DAILY 10/29/18 Folic Acid/Vit B Complex and C [Dialyvite Tablet] 1 each PO DAILY 10/29/18 Insulin Lispro [Humalog Kwikpen U-100] 0 unit SQ ACHS 10/29/18 Midodrine HCl 10 mg PO MOWEFR 10/29/18 Sevelamer Carbonate [Renvela -] 1,600 mg PO TID 10/29/18 Tamsulosin HCl [Flomax] 0.4 mg PO HS 10/29/18 Zinc Oxide 20% Topical Oint 454 gm NR BID 10/29/18 Ceftaroline Fosamil Acetate [Teflaro (Restricted To Id)] 200 mg IVPB BID vial 11/17/18 Insulin Sliding Scale [Novolog Vial Sliding Scale -] 1 vial SQ TIDAC #1 vial Apixaban [Eliquis -] 5 mg PO BID #30 tablet MDD 2 11/19/18 Vancomycin 1 Gram (Pre-Docked) [Vancomycin (Pre-Docked)] 1,000 mg IVPB Q2D #14 bag 11/19/18 Family Disease History - Family Disease History Family History: Unable to Obtain Review of Systems Unable to obtain ROS, reason: pt not answering question - Review of Systems Constitutional: reports: No Symptoms Physical Exam Vital Signs: Vital Signs Temperature 97.6 F 01/10/19 11:21 Pulse Rate 74 01/10/19 11:21 Respiratory Rate 18 01/10/19 11:21 Blood Pressure 125/59 L 01/10/19 11:21 O2 Sat by Pulse Oximetry (%) 95 01/10/19 11:21 Constitutional: Yes: Calm Eyes: Yes: Conjunctiva Clear HENT: Yes: Atraumatic Cardiovascular: Yes: S1, S2 Respiratory: Yes: CTA Bilaterally Gastrointestinal: Yes: Soft Renal/: Yes: Incontinence Musculoskeletal: Yes: Muscle Weakness Edema: No Neurological: Yes: Confusion Labs: CBC, BMP 01/10/19 05:30 01/10/19 05:30 Problem List - Problems (1) CVA (cerebral vascular accident) Code(s): I63.9 - CEREBRAL INFARCTION, UNSPECIFIED (2) Gangrene of foot Code(s): I96 - GANGRENE, NOT ELSEWHERE CLASSIFIED (3) ESRD (end stage renal disease) Code(s): N18.6 - END STAGE RENAL DISEASE Assessment/Plan Current Medications Generic Name Dose Route Start Last Admin Trade Name Freq PRN Reason Stop Dose Admin Acetaminophen 1,000 mg 01/09/19 23:56 Ofirmev Injection - IVPB ONCE PRN PAIN LEVEL 6-10 Albuterol/Ipratropium 1 amp 01/09/19 23:29 Duoneb - NEB Q6H PRN SHORTNESS OF BREATH Allopurinol 100 mg 01/10/19 10:00 01/10/19 10:23 Zyloprim - PO 100 mg DAILY CHANTELL Administration Atorvastatin Calcium 20 mg 01/10/19 22:00 Lipitor - PO HS [facility] Docusate Sodium 100 mg 01/09/19 23:56 Colace - PO BID PRN CONSTIPATION Escitalopram Oxalate 10 mg 01/10/19 10:00 01/10/19 10:23 Lexapro - PO 10 mg DAILY [facility] Administration Piperacillin Sod/Tazobactam 50 mls @ 100 mls/hr 01/10/19 10:00 Sod 2.25 gm/ Dextrose IVPB BID [facility] Protocol Insulin Aspart 1 vial 01/10/19 07:00 01/10/19 12:07 Novolog Vial Sliding Scale - SQ Not Given ACHS [facility] Protocol Midodrine 10 mg 01/11/19 10:00 Proamatine - PO MoWeFr@1000 [facility] Multi-Ingredient Ointment 1 applic 01/10/19 10:00 01/10/19 10:25 Zinc Oxide TP 1 applic BID [facility] Administration Senna 2 tab 01/09/19 23:56 Senna - PO HS PRN CONSTIPATION Sevelamer Carbonate 1,600 mg 01/10/19 08:00 01/10/19 12:07 Renvela - PO Not Given TIDCM [facility] Tamsulosin HCl 0.4 mg 01/10/19 22:00 Flomax - PO HS [facility] Impression 1. ESRD 2. gangrene 3. DM 4. hyperlipidemia 5. HTN 6. gout 7. 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
--- NOTE | 2019-01-10 13:57 | CON.PULM ---
Consult Consult Specialty:: PULM/CCM Referred by:: FRANCES Reason for Consultation:: Pre-op clearance - History of Present Illness Chief Complaint: Worsening RLE gangrene History of Present Illness: 73 M, known to me from a recent admission to [facility] 10/2018 for Acute Respiratory Failure requiring intubation and mechanical ventilation. Septic shock due to Gm (+) bacteremia requiring NE. Additional history of ESRD on HD, HTN, CAD, DM , recurrent S. Aureus infection, prior CVA, and COPD. There is no overt history of sleep apnea. Asked to evaluate prior to anticipated Right lower extremity amputation. Patient is not able to provide any reliable history. He is no acute distress, saturation is 95% on RA at rest. CXR: Persistent elevation of the right hemidiaphragm, resolved RUL atelectasis from 10/2018. - History Source History Provided By: Medical Record Limitations to Obtaining History: Clinical Condition - Past Medical History ASSOCIATE RELATIONS SPECIALIST: Yes: CVA, Dementia Cardio/Vascular: Yes: AFIB, CAD (PVD), CHF, HTN, Hyperlipdemia Pulmonary: Yes: COPD, Pneumonia, Previously Intubated. No: O2 Dependent, Pulmonary Embolus, Pulmonary Fibrosis, Sleep Apnea Renal/: Yes: Renal Failure, Hemodialysis Endocrine: Yes: Diabetes Mellitus - Alcohol/Substance Use Hx Alcohol Use: No - Smoking History Smoking history: Unknown if ever smoked Have you smoked in the past 12 months: No - Social History Usual Living Arrangement: [facility] ADL: Support Services History of Recent Travel: No Home Medications - Allergies Allergies/Adverse Reactions: Allergies Allergy/AdvReac Type Severity Reaction Status Date / Time watermelon Allergy Unknown Verified 10/29/18 06:33 melon Allergy Verified 10/29/18 06:33 No Known Drug Allergies Allergy Verified 10/29/18 06:34 - Home Medications Home Medications: Ambulatory Orders Albuterol 2.5/Ipratropium 0.5 [Duoneb -] 1 amp NEB Q6H PRN #0 amp 07/12/17 Allopurinol [Zyloprim -] 100 mg PO DAILY tablet 07/12/17 Atorvastatin Ca [Lipitor] 20 mg PO HS tablet 07/12/17 Clopidogrel Bisulfate [Plavix -] 75 mg PO DAILY tablet 07/12/17 Collagenase Clostridium Hist. [Santyl -] 250 unit TP DAILY 08/31/18 Lisinopril 10 mg PO DAILY 08/31/18 Collagenase Clostridium Hist. [Santyl -] 1 applic TP DAILY tube 09/06/18 Albuterol Sulfate [Proair Hfa] 2 puff IH Q6H PRN 10/29/18 Escitalopram Oxalate [Lexapro -] 10 mg PO DAILY 10/29/18 Folic Acid/Vit B Complex and C [Dialyvite Tablet] 1 each PO DAILY 10/29/18 Insulin Lispro [Humalog Kwikpen U-100] 0 unit SQ ACHS 10/29/18 Midodrine HCl 10 mg PO MOWEFR 10/29/18 Sevelamer Carbonate [Renvela -] 1,600 mg PO TID 10/29/18 Tamsulosin HCl [Flomax] 0.4 mg PO HS 10/29/18 Zinc Oxide 20% Topical Oint 454 gm NR BID 10/29/18 Ceftaroline Fosamil Acetate [Teflaro (Restricted To Id)] 200 mg IVPB BID vial 11/17/18 Insulin Sliding Scale [Novolog Vial Sliding Scale -] 1 vial SQ TIDAC #1 vial Apixaban [Eliquis -] 5 mg PO BID #30 tablet MDD 2 11/19/18 Vancomycin 1 Gram (Pre-Docked) [Vancomycin (Pre-Docked)] 1,000 mg IVPB Q2D #14 bag 11/19/18 Review of Systems Unable to obtain ROS, reason: not able to provide Physical Exam Vital Sings: Vital Signs Temperature 97.6 F 01/10/19 11:21 Pulse Rate 74 01/10/19 11:21 Respiratory Rate 18 01/10/19 11:21 Blood Pressure 125/59 L 01/10/19 11:21 O2 Sat by Pulse Oximetry (%) 95 01/10/19 11:21 Constitutional: Yes: No Distress Eyes: Yes: Conjunctiva Clear HENT: Yes: Atraumatic, Normocephalic Neck: Yes: Supple, Trachea Midline Cardiovascular: Yes: Regular Rate and Rhythm Respiratory: Yes: Diminished. No: Accessory Muscle Use, On Nasal O2, Rales, Rhonchi, SOB, SOB on Exertion, Stridor, Tachypnea, Wheezes ...Inspection: Yes: WNL ...Clubbing: No Gastrointestinal: Yes: Normal Bowel Sounds, Soft Musculoskeletal: Yes: WNL Extremities: Yes: Cool, Cyanosis, Delayed Capillary Refill Edema: No Peripheral Pulses WNL: Yes Integumentary: Yes: Venous Stasis Changes, Other (Gangrene ) Labs: CBC, BMP 01/10/19 05:30 01/10/19 05:30 Imaging - Results Chest X-ray: Report Reviewed, Image Reviewed Problem List - Problems (1) COPD (chronic obstructive pulmonary disease) Code(s): J44.9 - CHRONIC OBSTRUCTIVE PULMONARY DISEASE, UNSPECIFIED (2) CVA (cerebral vascular accident) Code(s): I63.9 - CEREBRAL INFARCTION, UNSPECIFIED (3) Gangrene of foot Code(s): I96 - GANGRENE, NOT ELSEWHERE CLASSIFIED (4) HLD (hyperlipidemia) Code(s): E78.5 - HYPERLIPIDEMIA, UNSPECIFIED (5) PVD (peripheral vascular disease) Code(s): I73.9 - PERIPHERAL VASCULAR DISEASE, UNSPECIFIED (6) Anemia in chronic illness Code(s): D63.8 - ANEMIA IN OTHER CHRONIC DISEASES CLASSIFIED ELSEWHERE (7) CKD (chronic kidney disease) Code(s): N18.9 - CHRONIC KIDNEY DISEASE, UNSPECIFIED (8) Diabetes Code(s): E11.9 - TYPE 2 DIABETES MELLITUS WITHOUT COMPLICATIONS Qualifiers: Diabetes mellitus type: type 2 (9) ESRD (end stage renal disease) Code(s): N18.6 - END STAGE RENAL DISEASE (10) HTN (hypertension) Code(s): I10 - ESSENTIAL (PRIMARY) HYPERTENSION Qualifiers: Hypertension type: essential hypertension Qualified Code(s): I10 - Essential (primary) hypertension Assessment/Plan There is no absolute Pulmonary contraindication for surgery or anesthesia, although he is at an increased risk due to recent intubation, COPD, and non- compliance. No recent evidence of significant hypercapnia. No overt history consistent with OSAS. No indication for systemic steroids. BD TX PRN O2 as needed, currently saturation is 95% on RA at rest VTE prophylaxis HD per Renal ABX per ID Will follow Thank you. Dr Palmer
--- NOTE | 2019-01-10 14:01 | PN ---
Progress Note, Physician Chief Complaint: patient seen and not allowing for proper exam limited he is not allowing me to fully examine him he refusing to eat and allow iv acces - Current Medication List Current Medications: Active Medications Acetaminophen (Ofirmev Injection -) 1,000 mg IVPB ONCE PRN PRN Reason: PAIN LEVEL 6-10 Albuterol/Ipratropium (Duoneb -) 1 amp NEB Q6H PRN PRN Reason: SHORTNESS OF BREATH Allopurinol (Zyloprim -) 100 mg PO DAILY [facility] Last Admin: 01/10/19 10:23 Dose: 100 mg Atorvastatin Calcium (Lipitor -) 20 mg PO HS [facility] Docusate Sodium (Colace -) 100 mg PO BID PRN PRN Reason: CONSTIPATION Escitalopram Oxalate (Lexapro -) 10 mg PO DAILY [facility] Last Admin: 01/10/19 10:23 Dose: 10 mg Piperacillin Sod/Tazobactam (Sod 2.25 gm/ Dextrose) 50 mls @ 100 mls/hr IVPB BID [facility]; Protocol Insulin Aspart (Novolog Vial Sliding Scale -) 1 vial SQ ACHS [facility]; Protocol Last Admin: 01/10/19 12:07 Dose: Not Given Midodrine (Proamatine -) 10 mg PO MoWeFr@1000 [facility] Multi-Ingredient Ointment (Zinc Oxide) 1 applic TP BID [facility] Last Admin: 01/10/19 10:25 Dose: 1 applic Senna (Senna -) 2 tab PO HS PRN PRN Reason: CONSTIPATION Sevelamer Carbonate (Renvela -) 1,600 mg PO TIDCM [facility] Last Admin: 01/10/19 12:07 Dose: Not Given Tamsulosin HCl (Flomax -) 0.4 mg PO HS [facility] - Objective Vital Signs: Vital Signs Temperature 97.6 F 01/10/19 11:21 Pulse Rate 74 01/10/19 11:21 Respiratory Rate 18 01/10/19 11:21 Blood Pressure 125/59 L 01/10/19 11:21 O2 Sat by Pulse Oximetry (%) 95 01/10/19 11:21 Constitutional: Yes: Calm, Thin Cardiovascular: No: Other (has arms folded over his chest) Gastrointestinal: Yes: Other (not allowing me to examine him) Extremities: Yes: Other (flexed dressing noted on right foot) Edema: No Labs: CBC, BMP 01/10/19 05:30 04/18/19 05:30 INR, PTT INR 1.56 (0.83-1.09) H 01/09/19 21:20 Problem List - Problems (1) Gangrene of foot Assessment/Plan: NPO tonight for OR IN AM iv fluid cardiology/pulm cleared patient prbc on hold for OR renal on board potassium and phosphorous repleted iv abx per ID Code(s): I96 - GANGRENE, NOT ELSEWHERE CLASSIFIED (2) CKD (chronic kidney disease) Assessment/Plan: renal on board Code(s): N18.9 - CHRONIC KIDNEY DISEASE, UNSPECIFIED
--- NOTE | 2019-01-10 14:10 | PN ---
Progress Note (short form) - Note Progress Note: ID CONSULT DICTATED GANGRENE R LE R/O SEPSIS SECONDARY TO SKIN SOURCE ESRD CONTINUE EMPIRIC VANCO/ ZOSYN FOR AMPUTATION
[2019-01-10 14:29] LABS: BASO % 0.8 % (0-2.0); EOS % 0.7 % (0-4.5); HEMATOCRIT 27.8 % (35.4-49); HEMOGLOBIN 8.9 GM/dL (11.7-16.9); LYMPH % 15.1 % (8-40); MCH 29.6 pg (25.7-33.7); MCHC 31.9 g/dl (32.0-35.9); MEAN CELL VOLUME 92.6 fl (80-96); MEAN PLT VOLUME 7.4 fl (7.5-11.1); MONO % 8.4 % (3.8-10.2); PLATELET COUNT 389 K/MM3 (134-434); RBC 3.01 M/mm3 (4.00-5.60); RDW 16.6 % (11.9-15.9); WHITE BLOOD COUNT 9.1 K/mm3 (4.0-10.0)
--- NOTE | 2019-01-10 14:36 | CONS ---
INFECTIOUS DISEASE CONSULTATION DATE OF CONSULTATION: DATE OF DICTATION: 01/10/2019 The patient is a 73-year-old male with a recent complicated [facility] admission, who is now readmitted with gangrenous right foot. He was hospitalized in October and November for a soft tissue infection of the right lower extremity complicated by MRSA bacteremia. At that time, he had a prolonged bacteremia requiring treatment with daptomycin and ceftaroline. He ultimately cleared the bacteremia and was discharged to a snf facility. He now returns with worsening infectious of the right foot. He suffers from dementia, cannot give any history. No reports of high-grade fever or shaking chills. The foot is necrotic and malodorous. PAST MEDICAL HISTORY: Positive for end-stage renal disease on hemodialysis, dementia, hypertension, diabetes, atrial fibrillation, hyperlipidemia, stroke, COPD, history of MRSA bacteremia. ALLERGIES: No known allergies. MEDICATIONS: Albuterol, allopurinol, Lipitor, Plavix, lisinopril, insulin, Lexapro, Flomax. SOCIAL HISTORY: Resides in a snf facility. No active tobacco or alcohol use. LABORATORY DATA: White count 9.1, hematocrit 27.4, platelet count 423. BUN 9, creatinine 1.9. ESR 97. Chest x-ray negative. Total bilirubin 0.6, alkaline phosphatase 150, AST 14. Cultures are pending. PHYSICAL EXAMINATION: General: He is awake, in no acute distress, not conversant. Vital Signs: Temperature 97.6; blood pressure 125/59; pulse 74, regular; respirations 18 per minute. HEENT: Sclerae anicteric. Chest: Dialysis catheter present, right upper chest. Heart: Sounds S1, S2. Lungs: Grossly clear. Poor inspiratory effort. Abdomen: Soft, nontender. Left Foot: There is a necrotic ulcer present on the heel as well as the top of the ankle. There is no purulent drainage noted. Right Lower Extremity: There are extensive necrotic ulcerations of the right foot with malodorous drainage. IMPRESSION: 1. Gangrene of the right foot. 2. Rule out sepsis secondary to skin source. 3. End-stage renal disease on hemodialysis. 4. History of methicillin-resistant Staphylococcus aureus bacteremia. Await cultures. Empiric antibiotic coverage with vancomycin and Zosyn adjusted for end-stage renal disease. Patient is for amputation. Thank you for the kind referral. MARGARET PASCAL M.D. [id number]
[2019-01-10] MEDS ORDERED: VANCOMYCIN 1,000 MG in DEXTROSE 5%-WATER - 250 ML IVPB ONE (15:00)
[2019-01-10] MEDS ORDERED: DEXTROSE 5%-WATER - 50 ML IVPB ONE ×2 (15:29→17:39)
[2019-01-10] MEDS ORDERED: PIPERACILLIN/TAZOBACTAM 2.25 GM VIAL IVPB ONE ×2 (15:29→17:39)
[2019-01-10] MEDS ORDERED: POTASSIUM PHOSPHATE 15 MM in DEXTROSE 5%-WATER - 250 ML IVPB ONE (15:30)
[2019-01-10] MEDS: PIPERACILLIN/TAZOB 2.25 GM 2.25 GM in DEXTROSE 5%-WATER - 50 ML IVPB SCH ×2 (15:34→20:00)
[2019-01-10 17:36] LABS: EPI CELLS 3.2 /HPF (0-5/HPF); URINE APPEARANCE CLOUDY; URINE BILIRUBIN 1+ (NEGATIVE); URINE CASTS 130 /lpf (0-8); URINE COLOR DK YELLOW; URINE GLUCOSE (UA) NEGATIVE (NEGATIVE); URINE KETONE TRACE (NEGATIVE); URINE LEUK ESTERASE 2+ (NEGATIVE); URINE NITRITE NEGATIVE (NEGATIVE); URINE PROTEIN 2+ (NEGATIVE); URINE WBC 26 /hpf (0-5)
[2019-01-10 18:10] LABS: URINE RBC 54 /hpf (0-4)
[2019-01-10 18:14] LABS: URINE BACTERIA 4.4 /hpf (NEGATIVE)
[2019-01-10] MEDS: ATORVASTATIN CA 20 MG TABLET (FP) PO SCH (22:24)
[2019-01-10] MEDS: TAMSULOSIN HCL 0.4 MG CAP PO SCH (22:24)
[2019-01-10] MEDS: ACETAMINOPHEN 325 MG TABLET (FP) PO PRN (22:54)
[2019-01-11] MEDS ORDERED: PIPERACILLIN/TAZOBACTAM 2.25 GM VIAL IVPB ONE ×3 (03:05→18:11)
[2019-01-11] MEDS ORDERED: DEXTROSE 5%-WATER - 50 ML IVPB ONE ×3 (03:05→18:11)
[2019-01-11] MEDS: PIPERACILLIN/TAZOB 2.25 GM 2.25 GM in DEXTROSE 5%-WATER - 50 ML IVPB SCH ×3 (03:10→18:28)
[2019-01-11] MEDS: KCL 10 MEQ IVPB 10 MEQ/100 ML INFUS.BAG IVPB SCH ×2 (03:50→05:45)
[2019-01-11 06:29] LABS: BASO % 0.6 % (0-2.0); EOS % 0.7 % (0-4.5); HEMATOCRIT 27.8 % (35.4-49); LYMPH % 14.1 % (8-40); MCH 29.9 pg (25.7-33.7); MCHC 32.4 g/dl (32.0-35.9); MEAN CELL VOLUME 92.3 fl (80-96); MEAN PLT VOLUME 7.7 fl (7.5-11.1); MONO % 7.2 % (3.8-10.2); NEUT % 77.4 % (42.8-82.8); PLATELET COUNT 452 K/MM3 (134-434); RBC 3.02 M/mm3 (4.00-5.60); RDW 17.1 % (11.9-15.9); WHITE BLOOD COUNT 9.4 K/mm3 (4.0-10.0)
[2019-01-11 07:53] LABS: ALBUMIN 1.6 g/dl (3.4-5.0); ALK PHOS 153 U/L (45-117); ANION GAP 9 MMOL/L (8-16); BILIRUBIN,TOTAL 0.4 mg/dL (0.2-1); BLOOD UREA NITROGEN 13 mg/dL (7-18); CALCIUM 8.7 mg/dL (8.5-10.1); CHLORIDE 99 mmol/L (98-107); CO2 27 mmol/L (21-32); CREATININE 2.4 mg/dL (0.55-1.3); GLUCOSE,RANDOM 72 mg/dL (74-106); PHOSPHOROUS 2.8 mg/dL (2.5-4.9); POTASSIUM 3.4 mmol/L (3.5-5.1); SGOT/AST 13 U/L (15-37); SGPT/ALT 15 U/L (13-61); SODIUM 134 mmol/L (136-145); TOT PROT 6.9 g/dl (6.4-8.2)
[2019-01-11] MEDS: SEVELAMER CARBONATE 800 MG TAB (FP) PO SCH ×3 (08:31→18:28)
[2019-01-11] MEDS: INSULIN SLIDING SCALE (NOVOLOG) 1 VIAL SQ SCH ×4 (08:31→21:42)
[2019-01-11] MEDS: ACETAMINOPHEN 325 MG TABLET (FP) PO PRN (10:02)
[2019-01-11] MEDS: MIDODRINE HCL 5 MG TABLET PO SCH (10:04)
[2019-01-11] MEDS: ESCITALOPRAM OXALATE 10 MG TABLET (FP) PO SCH (10:04)
[2019-01-11] MEDS: ALLOPURINOL 100 MG TABLET (FP) PO SCH (10:04)
[2019-01-11] MEDS: ZINC OXIDE 20% TOPICAL OINTMENT 30 GM TUBE TP SCH ×2 (10:05→21:42)
--- NOTE | 2019-01-11 11:19 | PN ---
Progress Note (short form) - Note Progress Note: We have been unable to determine who is Health care proxy.I have spoken with Mr. Silva's 2 brothers who claim the patient's daughter is HCP but there is no official documentation available. As this is not an emergency situation, surgery will be postponed until the appropriate documents are certified. I will be away until . Dr. Mcneil will assume Vascular Surgery responsibility for this patient.
--- NOTE | 2019-01-11 11:32 | PN ---
Progress Note (short form) - Note Progress Note: Vascular Surgery: Pt seen with Dr. Mcneil today. Upon further evaluation of care and speaking with the medical/nephrology team his case is cancelled. Bilateral wounds evulated today with Dr. Frazier Vital Signs Period Temp Pulse Resp BP Sys/Zamorano Pulse Ox Last 24 Hr 97.3 F-98.6 F 70-94 16-20 108-143/53-64 95-97 GEN: Alert and follows commands LE: Left with eschar anterior ankle 5x5cm No erythema or swelling. No drainage. 5x6cm eschar to left heel/medial aspect the eschar is peeling back and has some fibrinous exudate. RLE: 5 x 9 cm lateral foot starting at metatarsal head. Circumference pink tissue base with central eschar and fibrinous material. No drainage. Bilateral knees contracted. CBC, BMP 01/11/19 05:30 01/11/19 05:30 Microbiology 01/09/19 21:30 Blood - Peripheral Venous Blood Culture - Preliminary NO GROWTH OBTAINED AFTER 24 HOURS, INCUBATION TO CONTINUE FOR 4 DAYS. 01/09/19 21:30 Blood - Peripheral Venous Blood Culture - Preliminary NO GROWTH OBTAINED AFTER 24 HOURS, INCUBATION TO CONTINUE FOR 4 DAYS. A/p: 73 yo male with bilateral wounds and contraction Plan as per Dr. Mcneil, no surgical intervention at this time. Surgical morbidity/mortality high in a patient who is high risk for any surgical procedure. The pt remains afebrile, blood cultures negative with a normal WBC Plan is IV abx and local wound care May resume diet and eliquis as per the medical team
[2019-01-11] MEDS ORDERED: SODIUM CHLORIDE 250 ML IV PRN (12:15)
--- NOTE | 2019-01-11 12:15 | PN ---
Progress Note, Physician History of Present Illness: Pt seen and examined at bedside. He is awake and appears comfortable. He is confused. He is not going for surgery. - Current Medication List Current Medications: Active Medications Acetaminophen (Tylenol -) 650 mg PO Q6H PRN PRN Reason: PAIN Last Admin: 01/11/19 10:02 Dose: 650 mg Albuterol/Ipratropium (Duoneb -) 1 amp NEB Q6H PRN PRN Reason: SHORTNESS OF BREATH Allopurinol (Zyloprim -) 100 mg PO DAILY [facility] Last Admin: 01/11/19 10:04 Dose: 100 mg Atorvastatin Calcium (Lipitor -) 20 mg PO HS [facility] Last Admin: 01/10/19 22:24 Dose: 20 mg Docusate Sodium (Colace -) 100 mg PO BID PRN PRN Reason: CONSTIPATION Escitalopram Oxalate (Lexapro -) 10 mg PO DAILY [facility] Last Admin: 01/11/19 10:04 Dose: 10 mg Piperacillin Sod/Tazobactam (Sod 2.25 gm/ Dextrose) 50 mls @ 100 mls/hr IVPB Q8H-IV [facility]; Protocol Last Admin: 01/11/19 10:01 Dose: 100 mls/hr Insulin Aspart (Novolog Vial Sliding Scale -) 1 vial SQ ACHS [facility]; Protocol Last Admin: 01/11/19 11:34 Dose: Not Given Midodrine (Proamatine -) 10 mg PO MoWeFr@1000 [facility] Last Admin: 01/11/19 10:04 Dose: 10 mg Multi-Ingredient Ointment (Zinc Oxide) 1 applic TP BID [facility] Last Admin: 01/11/19 10:05 Dose: 1 applic Senna (Senna -) 2 tab PO HS PRN PRN Reason: CONSTIPATION Sevelamer Carbonate (Renvela -) 1,600 mg PO TIDCM [facility] Last Admin: 01/11/19 08:31 Dose: Not Given Tamsulosin HCl (Flomax -) 0.4 mg PO HS [facility] Last Admin: 01/10/19 22:24 Dose: 0.4 mg - Objective Vital Signs: Vital Signs Temperature 97.5 F L 01/11/19 08:13 Pulse Rate 74 01/11/19 08:13 Respiratory Rate 16 01/11/19 08:18 Blood Pressure 116/53 L 01/11/19 08:13 O2 Sat by Pulse Oximetry (%) 97 01/11/19 08:18 Constitutional: Yes: Calm Eyes: Yes: Conjunctiva Clear HENT: Yes: Atraumatic Cardiovascular: Yes: S1, S2 Respiratory: Yes: CTA Bilaterally Gastrointestinal: Yes: Normal Bowel Sounds, Soft Genitourinary: Yes: Barlow Present, Incontinence, Oliguria Musculoskeletal: Yes: Muscle Weakness Edema: No Neurological: Yes: Confusion Labs: CBC, BMP 01/11/19 05:30 01/11/19 05:30 INR, PTT INR 1.56 (0.83-1.09) H 01/09/19 21:20 Problem List - Problems (1) CVA (cerebral vascular accident) Code(s): I63.9 - CEREBRAL INFARCTION, UNSPECIFIED (2) Gangrene of foot Code(s): I96 - GANGRENE, NOT ELSEWHERE CLASSIFIED (3) ESRD (end stage renal disease) Code(s): N18.6 - END STAGE RENAL DISEASE Assessment/Plan Current Medications Generic Name Dose Route Start Last Admin Trade Name Freq PRN Reason Stop Dose Admin Acetaminophen 650 mg 01/10/19 22:44 01/11/19 10:02 Tylenol - PO 650 mg Q6H PRN Administration PAIN Albuterol/Ipratropium 1 amp 01/09/19 23:29 Duoneb - NEB Q6H PRN SHORTNESS OF BREATH Allopurinol 100 mg 01/10/19 10:00 01/11/19 10:04 Zyloprim - PO 100 mg DAILY [facility] Administration Atorvastatin Calcium 20 mg 01/10/19 22:00 01/10/19 22:24 Lipitor - PO 20 mg HS [facility] Administration Docusate Sodium 100 mg 01/09/19 23:56 Colace - PO BID PRN CONST[facility] Escitalopram Oxalate 10 mg 01/10/19 10:00 01/11/19 10:04 Lexapro - PO 10 mg DAILY [facility] Administration Piperacillin Sod/Tazobactam 50 mls @ 100 mls/hr 01/10/19 14:30 01/11/19 10:01 Sod 2.25 gm/ Dextrose IVPB 100 mls/hr Q8H-IV [facility] Administration Protocol Insulin Aspart 1 vial 01/10/19 07:00 01/11/19 11:34 Novolog Vial Sliding Scale - SQ Not Given ACHS [facility] Protocol Midodrine 10 mg 01/11/19 10:00 01/11/19 10:04 Proamatine - PO 10 mg MoWeFr@1000 [facility] Administration Multi-Ingredient Ointment 1 applic 01/10/19 10:00 01/11/19 10:05 Zinc Oxide TP 1 applic BID [facility] Administration Senna 2 tab 01/09/19 23:56 Senna - PO HS PRN CONSTIPATION Sevelamer Carbonate 1,600 mg 01/10/19 08:00 01/11/19 08:31 Renvela - PO Not Given TIDCM [facility] Tamsulosin HCl 0.4 mg 01/10/19 22:00 01/10/19 22:24 Flomax - PO 0.4 mg HS [facility] Administration Impression 1. ESRD 2. gangrene 3. DM 4. hyperlipidemia 5. HTN 6. gout 7. proteinuria Plan - pt oliguric and division head rising - HD today - spoke to vascular, he will not get amputation at this time - can d/c barlow cath - renal diet - wound care
--- NOTE | 2019-01-11 12:48 | PN ---
Progress Note (short form) - Note Progress Note: PULMONARY Chart reviewed Known by members of our service from ICU admission Constitutional: Yes: No Distress Eyes: Yes: Conjunctiva Clear HENT: Yes: Atraumatic, Normocephalic Neck: Yes: Supple, Trachea Midline Cardiovascular: Yes: Regular Rate and Rhythm Respiratory: Yes: Diminished. No: Accessory Muscle Use, On Nasal O2, Rales, Rhonchi, SOB, SOB on Exertion, Stridor, Tachypnea, Wheezes ...Inspection: Yes: WNL ...Clubbing: No Gastrointestinal: Yes: Normal Bowel Sounds, Soft Musculoskeletal: Yes: WNL Extremities: Yes: Cool, Cyanosis, Delayed Capillary Refill Edema: No Peripheral Pulses WNL: Yes Integumentary: Yes: Venous Stasis Changes, Other (Gangrene ) Labs/meds/notes/images/micro reviewed Problem List - Problems (1) COPD (chronic obstructive pulmonary disease) Code(s): J44.9 - CHRONIC OBSTRUCTIVE PULMONARY DISEASE, UNSPECIFIED (2) CVA (cerebral vascular accident) Code(s): I63.9 - CEREBRAL INFARCTION, UNSPECIFIED (3) Gangrene of foot Code(s): I96 - GANGRENE, NOT ELSEWHERE CLASSIFIED (4) HLD (hyperlipidemia) Code(s): E78.5 - HYPERLIPIDEMIA, UNSPECIFIED (5) PVD (peripheral vascular disease) Code(s): I73.9 - PERIPHERAL VASCULAR DISEASE, UNSPECIFIED (6) Anemia in chronic illness Code(s): D63.8 - ANEMIA IN OTHER CHRONIC DISEASES CLASSIFIED ELSEWHERE (7) CKD (chronic kidney disease) Code(s): N18.9 - CHRONIC KIDNEY DISEASE, UNSPECIFIED (8) Diabetes Code(s): E11.9 - TYPE 2 DIABETES MELLITUS WITHOUT COMPLICATIONS Qualifiers: Diabetes mellitus type: type 2 (9) ESRD (end stage renal disease) Code(s): N18.6 - END STAGE RENAL DISEASE (10) HTN (hypertension) Code(s): I10 - ESSENTIAL (PRIMARY) HYPERTENSION Qualifiers: Hypertension type: essential hypertension Qualified Code(s): I10 - Essential (primary) hypertension There is no absolute Pulmonary contraindication for surgery or anesthesia, although he is at an increased risk due to recent intubation, COPD, and non- compliance. No recent evidence of significant hypercapnia. No overt history consistent with OSAS. No indication for systemic steroids. BD TX PRN O2 as needed, currently saturation is 95% on RA at rest VTE prophylaxis HD per Renal ABX per ID Will follow Taylor TAYLOR MD
--- NOTE | 2019-01-11 12:56 | PN ---
Progress Note, Physician Chief Complaint: patient seen with vascular team on baord wounds opened - Current Medication List Current Medications: Active Medications Acetaminophen (Tylenol -) 650 mg PO Q6H PRN PRN Reason: PAIN Last Admin: 01/11/19 10:02 Dose: 650 mg Albuterol/Ipratropium (Duoneb -) 1 amp NEB Q6H PRN PRN Reason: SHORTNESS OF BREATH Allopurinol (Zyloprim -) 100 mg PO DAILY [facility] Last Admin: 01/11/19 10:04 Dose: 100 mg Apixaban (Eliquis -) 5 mg PO BID [facility] Atorvastatin Calcium (Lipitor -) 20 mg PO HS [facility] Last Admin: 01/10/19 22:24 Dose: 20 mg Docusate Sodium (Colace -) 100 mg PO BID PRN PRN Reason: CONSTIPATION Epoetin Jose (Epogen -) 8,000 unit IVPUSH ONCE ONE Stop: 01/11/19 12:16 Escitalopram Oxalate (Lexapro -) 10 mg PO DAILY [facility] Last Admin: 01/11/19 10:04 Dose: 10 mg Piperacillin Sod/Tazobactam (Sod 2.25 gm/ Dextrose) 50 mls @ 100 mls/hr IVPB Q8H-IV [facility]; Protocol Last Admin: 01/11/19 10:01 Dose: 100 mls/hr Sodium Chloride (Normal Saline -) 250 mls @ 3,000 mls/hr IV PRN PRN PRN Reason: Hypotension during Dialysis Stop: 01/12/19 12:15 Insulin Aspart (Novolog Vial Sliding Scale -) 1 vial SQ ACHS [facility]; Protocol Last Admin: 01/11/19 11:34 Dose: Not Given Midodrine (Proamatine -) 10 mg PO MoWeFr@1000 [facility] Last Admin: 01/11/19 10:04 Dose: 10 mg Multi-Ingredient Ointment (Zinc Oxide) 1 applic TP BID [facility] Last Admin: 01/11/19 10:05 Dose: 1 applic Senna (Senna -) 2 tab PO HS PRN PRN Reason: CONSTIPATION Sevelamer Carbonate (Renvela -) 1,600 mg PO TIDCM [facility] Last Admin: 01/11/19 08:31 Dose: Not Given Tamsulosin HCl (Flomax -) 0.4 mg PO HS [facility] Last Admin: 01/10/19 22:24 Dose: 0.4 mg - Objective Vital Signs: Vital Signs Temperature 97.5 F L 01/11/19 08:13 Pulse Rate 74 01/11/19 08:13 Respiratory Rate 16 01/11/19 08:18 Blood Pressure 116/53 L 01/11/19 08:13 O2 Sat by Pulse Oximetry (%) 97 01/11/19 08:18 Constitutional: Yes: Calm, Thin Cardiovascular: Yes: Regular Rate and Rhythm, S1, S2 Respiratory: Yes: Diminished Gastrointestinal: Yes: Normal Bowel Sounds, Soft Extremities: Yes: Other (contracted flexed wounds opened right leg wounds noted) Edema: No Wound/Incision: Yes: Other (right foot pin k base with fibrionous material no drainage) Neurological: Yes: Alert Labs: CBC, BMP 01/11/19 05:30 01/11/19 05:30 INR, PTT INR 1.56 (0.83-1.09) H 01/09/19 21:20 Problem List - Problems (1) Wound of foot Assessment/Plan: plan cancel amputation treat iv abx ID on board Microbiology 01/09/19 21:50 Foot - Right Heel Gram Stain - Final 01/09/19 21:30 Foot - Left Heel Gram Stain - Final 01/09/19 21:50 Foot - Right Heel Wound Culture - Preliminary Presumptive Mrsa (Pbp2a Pos) 01/09/19 21:30 Foot - Left Heel Wound Culture - Preliminary Lactose Fermenting Neg Bacilli Proteus Species Staphylococcus Latex Coag Pos isolation resume diet no plan for amputation at this time resume eliquis Code(s): S91.309A - UNSPECIFIED OPEN WOUND, UNSPECIFIED FOOT, INITIAL ENCOUNTER (2) CKD (chronic kidney disease) Assessment/Plan: renal on board Code(s): N18.9 - CHRONIC KIDNEY DISEASE, UNSPECIFIED (3) A-fib Assessment/Plan: eliquis Code(s): I48.91 - UNSPECIFIED ATRIAL FIBRILLATION
[2019-01-11] MEDS: APIXABAN 5 MG TABLET PO SCH ×2 (13:26→21:23)
[2019-01-11] MEDS ORDERED: EPOETIN ALFA 2,000 UNIT/1 ML VIAL IVPUSH ONE (14:15)
[2019-01-11] MEDS ORDERED: POTASSIUM CHLORIDE TABS 20 MEQ TABLET.ER (FP) PO ONE (14:49)
[2019-01-11] MEDS: ATORVASTATIN CA 20 MG TABLET (FP) PO SCH (21:23)
[2019-01-11] MEDS: TAMSULOSIN HCL 0.4 MG CAP PO SCH (21:23)
[2019-01-12] MEDS ORDERED: PIPERACILLIN/TAZOBACTAM 2.25 GM VIAL IVPB ONE ×3 (01:55→16:12)
[2019-01-12] MEDS ORDERED: DEXTROSE 5%-WATER - 50 ML IVPB ONE ×3 (01:56→16:12)
[2019-01-12] MEDS: PIPERACILLIN/TAZOB 2.25 GM 2.25 GM in DEXTROSE 5%-WATER - 50 ML IVPB SCH ×3 (01:57→17:06)
[2019-01-12 06:33] LABS: BASO % 0.6 % (0-2.0); EOS % 0.3 % (0-4.5); HEMATOCRIT 25.8 % (35.4-49); HEMOGLOBIN 8.3 GM/dL (11.7-16.9); LYMPH % 17.7 % (8-40); MCH 29.8 pg (25.7-33.7); MCHC 32.2 g/dl (32.0-35.9); MEAN CELL VOLUME 92.4 fl (80-96); MEAN PLT VOLUME 7.7 fl (7.5-11.1); MONO % 7.9 % (3.8-10.2); NEUT % 73.5 % (42.8-82.8); PLATELET COUNT 418 K/MM3 (134-434); RDW 17.4 % (11.9-15.9); WHITE BLOOD COUNT 9.6 K/mm3 (4.0-10.0)
[2019-01-12] MEDS: INSULIN SLIDING SCALE (NOVOLOG) 1 VIAL SQ SCH ×4 (06:48→22:40)
[2019-01-12 07:01] LABS: ALBUMIN 1.5 g/dl (3.4-5.0); ALK PHOS 144 U/L (45-117); ANION GAP 6 MMOL/L (8-16); BILIRUBIN,TOTAL 0.4 mg/dL (0.2-1); BLOOD UREA NITROGEN 8 mg/dL (7-18); CHLORIDE 103 mmol/L (98-107); CO2 30 mmol/L (21-32); CREATININE 1.9 mg/dL (0.55-1.3); GLUCOSE,RANDOM 77 mg/dL (74-106); POTASSIUM 3.5 mmol/L (3.5-5.1); SGOT/AST 10 U/L (15-37); SGPT/ALT 12 U/L (13-61); SODIUM 140 mmol/L (136-145)
[2019-01-12] MEDS: SEVELAMER CARBONATE 800 MG TAB (FP) PO SCH ×3 (07:39→17:05)
--- NOTE | 2019-01-12 07:44 | PN ---
Progress Note (short form) - Note Progress Note: RENAL comfortable Last Vital Signs Temp Pulse Resp BP Pulse Ox 98.0 F 90 18 112/58 L 96 01/12/19 06:00 01/12/19 06:00 01/12/19 06:00 01/12/19 06:00 01/11/19 21:00 lungs clear cvs s1s2 rr abd soft ext no edema CBC, BMP 01/12/19 05:30 01/12/19 05:30 Current Medications Generic Name Dose Route Start Last Admin Trade Name Freq PRN Reason Stop Dose Admin Acetaminophen 650 mg 01/10/19 22:44 01/11/19 10:02 Tylenol - PO 650 mg Q6H PRN Administration PAIN Albuterol/Ipratropium 1 amp 01/09/19 23:29 Duoneb - NEB Q6H PRN SHORTNESS OF BREATH Allopurinol 100 mg 01/10/19 10:00 01/11/19 10:04 Zyloprim - PO 100 mg DAILY [facility]ANTELL Administration Apixaban 5 mg 01/11/19 13:00 01/11/19 21:23 Eliquis - PO 5 mg BID [facility]ANTELL Administration Atorvastatin Calcium 20 mg 01/10/19 22:00 01/11/19 21:23 Lipitor - PO 20 mg HS [facility]ANTELL Administration Collagenase 1 applic 01/12/19 10:00 Santyl - TP DAILY CHANTELL Protocol Docusate Sodium 100 mg 01/09/19 23:56 Colace - PO BID PRN CONSTIPATION Escitalopram Oxalate 10 mg 01/10/19 10:00 01/11/19 10:04 Lexapro - PO 10 mg DAILY CHANTELL Administration Piperacillin Sod/Tazobactam 50 mls @ 100 mls/hr 01/10/19 14:30 01/12/19 01:57 Sod 2.25 gm/ Dextrose IVPB 100 mls/hr Q8H-IV [facility] Administration Protocol Sodium Chloride 250 mls @ 3,000 mls/hr 01/11/19 12:15 Normal Saline - IV 01/12/19 12:15 PRN PRN Hypotension during Dialysis Insulin Aspart 1 vial 01/10/19 07:00 01/12/19 06:48 Novolog Vial Sliding Scale - SQ Not Given ACHS CHANTELL Protocol Midodrine 10 mg 01/11/19 10:00 01/11/19 10:04 Proamatine - PO 10 mg MoWeFr@1000 CHAN[facility] Administration Multi-Ingredient Ointment 1 applic 01/10/19 10:00 01/11/19 21:42 Zinc Oxide TP 1 applic BID [facility]TE[facility] Administration Senna 2 tab 01/09/19 23:56 Senna - PO HS PRN CONSTIPATION Sevelamer Carbonate 1,600 mg 01/10/19 08:00 01/12/19 07:39 Renvela - PO 1,600 mg TIDCM CHANTELL Administration Tamsulosin HCl 0.4 mg 01/10/19 22:00 01/11/19 21:23 Flomax - PO 0.4 mg HS CHANTELL Administration Impression 1. ESRD 2. gangrene 3. DM 4. hyperlipidemia 5. HTN 6. gout 7. proteinuria Plan -continue hd tiw - will need amputation - renal diet - wound care MV
[2019-01-12] MEDS: ALLOPURINOL 100 MG TABLET (FP) PO SCH (09:05)
[2019-01-12] MEDS: COLLAGENASE CLOSTRIDIUM HIST. 30 GRAMS TUBE TP SCH (09:05)
[2019-01-12] MEDS: ESCITALOPRAM OXALATE 10 MG TABLET (FP) PO SCH (09:05)
[2019-01-12] MEDS: APIXABAN 5 MG TABLET PO SCH ×2 (09:05→22:39)
[2019-01-12] MEDS: ZINC OXIDE 20% TOPICAL OINTMENT 30 GM TUBE TP SCH ×2 (09:05→22:41)
--- NOTE | 2019-01-12 11:25 | PN ---
Progress Note, Physician Chief Complaint: AWAKE ALERT WEAK POOR APPETITE PAIN CONTROLLED - Current Medication List Current Medications: Active Medications Acetaminophen (Tylenol -) 650 mg PO Q6H PRN PRN Reason: PAIN Last Admin: 01/11/19 10:02 Dose: 650 mg Albuterol/Ipratropium (Duoneb -) 1 amp NEB Q6H PRN PRN Reason: SHORTNESS OF BREATH Allopurinol (Zyloprim -) 100 mg PO DAILY [facility] Last Admin: 01/12/19 09:05 Dose: 100 mg Apixaban (Eliquis -) 5 mg PO BID [facility] Last Admin: 01/12/19 09:05 Dose: 5 mg Atorvastatin Calcium (Lipitor -) 20 mg PO HS [facility] Last Admin: 01/11/19 21:23 Dose: 20 mg Collagenase (Santyl -) 1 applic TP DAILY [facility]; Protocol Last Admin: 01/12/19 09:05 Dose: 1 applic Docusate Sodium (Colace -) 100 mg PO BID PRN PRN Reason: CONSTIPATION Escitalopram Oxalate (Lexapro -) 10 mg PO DAILY [facility] Last Admin: 01/12/19 09:05 Dose: 10 mg Piperacillin Sod/Tazobactam (Sod 2.25 gm/ Dextrose) 50 mls @ 100 mls/hr IVPB Q8H-IV [facility]; Protocol Last Admin: 01/12/19 09:05 Dose: 100 mls/hr Sodium Chloride (Normal Saline -) 250 mls @ 3,000 mls/hr IV PRN PRN PRN Reason: Hypotension during Dialysis Stop: 01/12/19 12:15 Insulin Aspart (Novolog Vial Sliding Scale -) 1 vial SQ ACHS [facility]; Protocol Last Admin: 01/12/19 06:48 Dose: Not Given Midodrine (Proamatine -) 10 mg PO MoWeFr@1000 [facility] Last Admin: 01/11/19 10:04 Dose: 10 mg Multi-Ingredient Ointment (Zinc Oxide) 1 applic TP BID [facility] Last Admin: 01/12/19 09:05 Dose: 1 applic Senna (Senna -) 2 tab PO HS PRN PRN Reason: CONSTIPATION Sevelamer Carbonate (Renvela -) 1,600 mg PO TIDCM [facility] Last Admin: 01/12/19 07:39 Dose: 1,600 mg Tamsulosin HCl (Flomax -) 0.4 mg PO HS [facility] Last Admin: 01/11/19 21:23 Dose: 0.4 mg - Objective Vital Signs: Vital Signs Temperature 97.9 F 01/12/19 07:51 Pulse Rate 81 01/12/19 07:51 Respiratory Rate 16 01/12/19 07:57 Blood Pressure 126/38 L 01/12/19 07:51 O2 Sat by Pulse Oximetry (%) 98 01/12/19 07:57 Constitutional: Yes: Mild Distress Cardiovascular: Yes: Pulse Irregular Respiratory: Yes: Diminished, On Nasal O2 Gastrointestinal: Yes: Normal Bowel Sounds, Soft Genitourinary: Yes: Incontinence Musculoskeletal: Yes: Muscle Weakness Extremities: Yes: Deformity Edema: Yes Integumentary: Yes: Pressure Ulcer, Rash, Venous Stasis Changes Wound/Incision: Yes: Dressing Dry and Intact, Excoriated, Unapproximated Neurological: Yes: Pre-Existing Deficit, Weakness ...Motor Strength: LLE, RLE Psychiatric: Yes: Other Labs: CBC, BMP 01/12/19 05:30 01/12/19 05:30 INR, PTT INR 1.56 (0.83-1.09) H 01/09/19 21:20 Problem List - Problems (1) COPD (chronic obstructive pulmonary disease) Code(s): J44.9 - CHRONIC OBSTRUCTIVE PULMONARY DISEASE, UNSPECIFIED (2) Gangrene of foot Code(s): I96 - GANGRENE, NOT ELSEWHERE CLASSIFIED (3) HLD (hyperlipidemia) Code(s): E78.5 - HYPERLIPIDEMIA, UNSPECIFIED (4) PVD (peripheral vascular disease) Code(s): I73.9 - PERIPHERAL VASCULAR DISEASE, UNSPECIFIED (5) Sepsis Code(s): A41.9 - SEPSIS, UNSPECIFIED ORGANISM Qualifiers: Sepsis type: sepsis due to unspecified organism Qualified Code(s): A41.9 - Sepsis, unspecified organism (6) Wound of foot Code(s): S91.309A - UNSPECIFIED OPEN WOUND, UNSPECIFIED FOOT, INITIAL ENCOUNTER (7) A-fib Code(s): I48.91 - UNSPECIFIED ATRIAL FIBRILLATION (8) Anemia Code(s): D64.9 - ANEMIA, UNSPECIFIED (9) CKD (chronic kidney disease) Code(s): N18.9 - CHRONIC KIDNEY DISEASE, UNSPECIFIED (10) Cellulitis, leg Code(s): L03.119 - CELLULITIS OF UNSPECIFIED PART OF LIMB (11) Diabetes Code(s): E11.9 - TYPE 2 DIABETES MELLITUS WITHOUT COMPLICATIONS Qualifiers: Diabetes mellitus type: type 2 (12) ESRD (end stage renal disease) Code(s): N18.6 - END STAGE RENAL DISEASE (13) Venous stasis ulcer of right lower extremity Code(s): I83.019 - VARICOSE VEINS OF RIGHT LOWER EXTREMITY W ULCER OF UNSP SITE ; L97.919 - NON-PRS CHRONIC ULC UNSP PRT OF R LOW LEG W UNSP SEVERITY Assessment/Plan IV ABX FOR LEG ULCERS/GANGRENOUS LEFT FOOT VASC SX EVAL POSSIBLE AMPUTATION DM BGM CHECKS A1C.LIPIDS CHECKED ON [employer] [place] PLACEMENT
--- NOTE | 2019-01-12 12:20 | PN ---
Progress Note, Physician History of Present Illness: AWAKE NO COMPLAINTS NO FEVER/ CHILLS AFEBRILE WBC WNL BC (-) WOUND C/S MIXED, INCLUDING MRSA/ ESBL - Current Medication List Current Medications: Active Medications Acetaminophen (Tylenol -) 650 mg PO Q6H PRN PRN Reason: PAIN Last Admin: 01/11/19 10:02 Dose: 650 mg Albuterol/Ipratropium (Duoneb -) 1 amp NEB Q6H PRN PRN Reason: SHORTNESS OF BREATH Allopurinol (Zyloprim -) 100 mg PO DAILY [facility] Last Admin: 01/12/19 09:05 Dose: 100 mg Apixaban (Eliquis -) 5 mg PO BID [facility] Last Admin: 01/12/19 09:05 Dose: 5 mg Atorvastatin Calcium (Lipitor -) 20 mg PO HS [facility] Last Admin: 01/11/19 21:23 Dose: 20 mg Collagenase (Santyl -) 1 applic TP DAILY [facility]; Protocol Last Admin: 01/12/19 09:05 Dose: 1 applic Docusate Sodium (Colace -) 100 mg PO BID PRN PRN Reason: CONSTIPATION Escitalopram Oxalate (Lexapro -) 10 mg PO DAILY [facility] Last Admin: 01/12/19 09:05 Dose: 10 mg Piperacillin Sod/Tazobactam (Sod 2.25 gm/ Dextrose) 50 mls @ 100 mls/hr IVPB Q8H-IV [facility]; Protocol Last Admin: 01/12/19 09:05 Dose: 100 mls/hr Insulin Aspart (Novolog Vial Sliding Scale -) 1 vial SQ ACHS [facility]; Protocol Last Admin: 01/12/19 11:45 Dose: Not Given Midodrine (Proamatine -) 10 mg PO MoWeFr@1000 [facility] Last Admin: 01/11/19 10:04 Dose: 10 mg Multi-Ingredient Ointment (Zinc Oxide) 1 applic TP BID [facility] Last Admin: 01/12/19 09:05 Dose: 1 applic Senna (Senna -) 2 tab PO HS PRN PRN Reason: CONSTIPATION Sevelamer Carbonate (Renvela -) 1,600 mg PO TIDCM [facility] Last Admin: 01/12/19 11:46 Dose: 1,600 mg Tamsulosin HCl (Flomax -) 0.4 mg PO HS [facility] Last Admin: 01/11/19 21:23 Dose: 0.4 mg - Objective Vital Signs: Vital Signs Temperature 97.9 F 01/12/19 07:51 Pulse Rate 81 01/12/19 07:51 Respiratory Rate 16 01/12/19 07:57 Blood Pressure 126/38 L 01/12/19 07:51 O2 Sat by Pulse Oximetry (%) 98 01/12/19 07:57 Constitutional: Yes: No Distress Cardiovascular: Yes: Regular Rate and Rhythm, S1, S2 Respiratory: Yes: CTA Bilaterally Gastrointestinal: Yes: Normal Bowel Sounds, Soft. No: Tenderness Extremities: Yes: Other (+ NECROTIC ULCERS R FOOT) Edema: Yes Labs: CBC, BMP 01/12/19 05:30 01/12/19 05:30 INR, PTT INR 1.56 (0.83-1.09) H 01/09/19 21:20 Assessment/Plan INFECTED FOOT ULCERS + WOUND C/S MRSA/ ESBL ESRD CONTINUE ZOSYN CHECK VANCOMYCIN TROUGH AM CONTACT PRECAUTIONS
[2019-01-12] MEDS ORDERED: PT OWN MED DRAWER 7, Y5N ONE (16:12)
[2019-01-12] MEDS: AMINO ACIDS/PROTEIN HYDROLYS 30 ML LIQUID.PKT PO SCH (17:05)
[2019-01-12] MEDS: ACETAMINOPHEN 325 MG TABLET (FP) PO PRN (17:06)
[2019-01-12] MEDS: TAMSULOSIN HCL 0.4 MG CAP PO SCH (22:30)
[2019-01-12] MEDS: ATORVASTATIN CA 20 MG TABLET (FP) PO SCH (22:39)
[2019-01-13] MEDS: ACETAMINOPHEN 325 MG TABLET (FP) PO PRN ×2 (00:39→15:30)
[2019-01-13] MEDS ORDERED: PIPERACILLIN/TAZOBACTAM 2.25 GM VIAL IVPB ONE ×3 (01:32→18:22)
[2019-01-13] MEDS ORDERED: DEXTROSE 5%-WATER - 50 ML IVPB ONE ×3 (01:32→18:23)
[2019-01-13] MEDS: PIPERACILLIN/TAZOB 2.25 GM 2.25 GM in DEXTROSE 5%-WATER - 50 ML IVPB SCH ×3 (01:38→18:47)
[2019-01-13 04:08] LABS: HBSAG SCREEN Negative (Negative); HEP B CORE AB, TOT Positive (Negative)
[2019-01-13] MEDS: INSULIN SLIDING SCALE (NOVOLOG) 1 VIAL SQ SCH ×4 (06:21→22:51)
--- NOTE | 2019-01-13 08:09 | PN ---
Progress Note (short form) - Note Progress Note: RENAL comfortable being cleaned Last Vital Signs Temp Pulse Resp BP Pulse Ox 97.8 F 92 H 16 101/38 L 95 01/13/19 01:00 01/13/19 01:00 01/13/19 01:00 01/13/19 01:00 01/12/19 21:00 lungs clear cvs s1s2 rr abd soft ext no edema, foot is dressed CBC, BMP 01/12/19 05:30 01/12/19 05:30 Current Medications Generic Name Dose Route Start Last Admin Trade Name Freq PRN Reason Stop Dose Admin Acetaminophen 650 mg 01/10/19 22:44 01/13/19 00:39 Tylenol - PO 650 mg Q6H PRN Administration PAIN Albuterol/Ipratropium 1 amp 01/09/19 23:29 Duoneb - NEB Q6H PRN SHORTNESS OF BREATH Allopurinol 100 mg 01/10/19 10:00 01/12/19 09:05 Zyloprim - PO 100 mg DAILY CHANTELL Administration Amino Acids 30 ml 01/12/19 17:30 01/12/19 17:05 Prosource No Carb Liquid Pkt PO 30 ml BID@0800,1730 CHANTELL Administration Apixaban 5 mg 01/11/19 13:00 01/12/19 22:39 Eliquis - PO 5 mg BID CHANTELL Administration Atorvastatin Calcium 20 mg 01/10/19 22:00 01/12/19 22:39 Lipitor - PO 20 mg HS CHANTELL Administration Collagenase 1 applic 01/12/19 10:00 01/12/19 09:05 Santyl - TP 1 applic DAILY CHANTELL Administration Protocol Docusate Sodium 100 mg 01/09/19 23:56 Colace - PO BID PRN CONSTIPATION Escitalopram Oxalate 10 mg 01/10/19 10:00 01/12/19 09:05 Lexapro - PO 10 mg DAILY CHANTELL Administration Piperacillin Sod/Tazobactam 50 mls @ 100 mls/hr 01/10/19 14:30 01/13/19 01:38 Sod 2.25 gm/ Dextrose IVPB 100 mls/hr Q8H-IV CHANTELL Administration Protocol Insulin Aspart 1 vial 01/10/19 07:00 01/13/19 06:21 Novolog Vial Sliding Scale - SQ Not Given ACHS CHANTELL Protocol Midodrine 10 mg 01/11/19 10:00 01/11/19 10:04 Proamatine - PO 10 mg MoWeFr@1000 CHANTELL Administration Multi-Ingredient Ointment 1 applic 01/10/19 10:00 01/12/19 22:41 Zinc Oxide TP 1 applic BID CHANTELL Administration Multivit/Ca Carb/B Cmplx/FA/Prenat 1 tablet 01/13/19 10:00 Nephro-Mary - PO DAILY CHANTELL Senna 2 tab 01/09/19 23:56 Senna - PO HS PRN CONSTIPATION Sevelamer Carbonate 1,600 mg 01/10/19 08:00 01/12/19 17:05 Renvela - PO 1,600 mg TIDCM CHANTELL Administration Tamsulosin HCl 0.4 mg 01/10/19 22:00 01/12/19 22:30 Flomax - PO 0.4 mg HS CHANTELL Administration Impression 1. ESRD 2. gangrene 3. DM 4. hyperlipidemia 5. HTN 6. gout 7. proteinuria Plan -continue hd tiw- has little muscle mass so creat is low - will need amputation - renal diet - wound care MV
[2019-01-13] MEDS: SEVELAMER CARBONATE 800 MG TAB (FP) PO SCH ×3 (08:19→17:29)
[2019-01-13] MEDS: AMINO ACIDS/PROTEIN HYDROLYS 30 ML LIQUID.PKT PO SCH ×2 (08:19→17:29)
[2019-01-13] MEDS: APIXABAN 5 MG TABLET PO SCH ×2 (10:08→22:48)
[2019-01-13] MEDS: VITAMIN B COMP W-C 1 EA TABLET PO SCH (10:08)
[2019-01-13] MEDS: COLLAGENASE CLOSTRIDIUM HIST. 30 GRAMS TUBE TP SCH (10:08)
[2019-01-13] MEDS: ALLOPURINOL 100 MG TABLET (FP) PO SCH (10:08)
[2019-01-13] MEDS: ESCITALOPRAM OXALATE 10 MG TABLET (FP) PO SCH (10:08)
[2019-01-13] MEDS: ZINC OXIDE 20% TOPICAL OINTMENT 30 GM TUBE TP SCH ×2 (10:09→22:52)
--- NOTE | 2019-01-13 11:57 | PN ---
Progress Note, Physician Chief Complaint: ASLEEP NAD STILL WAITING FOR HCP TO BE IDENTIFIED - Current Medication List Current Medications: Active Medications Acetaminophen (Tylenol -) 650 mg PO Q6H PRN PRN Reason: PAIN Last Admin: 01/13/19 00:39 Dose: 650 mg Albuterol/Ipratropium (Duoneb -) 1 amp NEB Q6H PRN PRN Reason: SHORTNESS OF BREATH Allopurinol (Zyloprim -) 100 mg PO DAILY [facility] Last Admin: 01/13/19 10:08 Dose: 100 mg Amino Acids (Prosource No Carb Liquid Pkt) 30 ml PO BID@0800,1730 CHANTE[facility] Last Admin: 01/13/19 08:19 Dose: 30 ml Apixaban (Eliquis -) 5 mg PO BID [facility] Last Admin: 01/13/19 10:08 Dose: 5 mg Atorvastatin Calcium (Lipitor -) 20 mg PO HS [facility] Last Admin: 01/12/19 22:39 Dose: 20 mg Collagenase (Santyl -) 1 applic TP DAILY [facility]; Protocol Last Admin: 01/13/19 10:08 Dose: 1 applic Docusate Sodium (Colace -) 100 mg PO BID PRN PRN Reason: CONSTIPATION Epoetin Jose (Epogen -) 4,000 unit SQ ONCE ONE Stop: 01/13/19 08:12 Escitalopram Oxalate (Lexapro -) 10 mg PO DAILY [facility] Last Admin: 01/13/19 10:08 Dose: 10 mg Piperacillin Sod/Tazobactam (Sod 2.25 gm/ Dextrose) 50 mls @ 100 mls/hr IVPB Q8H-IV [facility]; Protocol Last Admin: 01/13/19 10:08 Dose: 100 mls/hr Sodium Chloride (Normal Saline -) 250 mls @ 3,000 mls/hr IV PRN PRN PRN Reason: Hypotension during Dialysis Stop: 01/14/19 08:11 Insulin Aspart (Novolog Vial Sliding Scale -) 1 vial SQ ACHS [facility]; Protocol Last Admin: 01/13/19 06:21 Dose: Not Given Midodrine (Proamatine -) 10 mg PO MoWeFr@1000 [facility]TELL Last Admin: 01/11/19 10:04 Dose: 10 mg Multi-Ingredient Ointment (Zinc Oxide) 1 applic TP BID [facility] Last Admin: 01/13/19 10:09 Dose: 1 applic Multivit/Ca Carb/B Cmplx/FA/Prenat (Nephro-Mary -) 1 tablet PO DAILY [facility] Last Admin: 01/13/19 10:08 Dose: 1 tablet Senna (Senna -) 2 tab PO HS PRN PRN Reason: CONSTIPATION Sevelamer Carbonate (Renvela -) 1,600 mg PO TIDCM [facility] Last Admin: 01/13/19 08:19 Dose: 1,600 mg Tamsulosin HCl (Flomax -) 0.4 mg PO HS [facility] Last Admin: 01/12/19 22:30 Dose: 0.4 mg - Objective Vital Signs: Vital Signs Temperature 98.1 F 01/13/19 09:00 Pulse Rate 80 01/13/19 09:00 Respiratory Rate 20 01/13/19 09:00 Blood Pressure 96/49 L 01/13/19 09:00 O2 Sat by Pulse Oximetry (%) 99 01/13/19 09:00 Constitutional: Yes: No Distress Cardiovascular: Yes: Regular Rate and Rhythm Respiratory: Yes: WNL Gastrointestinal: Yes: WNL Genitourinary: Yes: Other Musculoskeletal: Yes: Muscle Weakness Extremities: Yes: Deformity Integumentary: Yes: Pressure Ulcer, Rash, Venous Stasis Changes Wound/Incision: Yes: Dressing Dry and Intact Neurological: Yes: Pre-Existing Deficit ...Motor Strength: LLE, RLE Psychiatric: Yes: Other Labs: CBC, BMP 01/12/19 05:30 01/12/19 05:30 INR, PTT INR 1.56 (0.83-1.09) H 01/09/19 21:20 Problem List - Problems (1) COPD (chronic obstructive pulmonary disease) Code(s): J44.9 - CHRONIC OBSTRUCTIVE PULMONARY DISEASE, UNSPECIFIED (2) Gangrene of foot Code(s): I96 - GANGRENE, NOT ELSEWHERE CLASSIFIED (3) HLD (hyperlipidemia) Code(s): E78.5 - HYPERLIPIDEMIA, UNSPECIFIED (4) PVD (peripheral vascular disease) Code(s): I73.9 - PERIPHERAL VASCULAR DISEASE, UNSPECIFIED (5) Sepsis Code(s): A41.9 - SEPSIS, UNSPECIFIED ORGANISM Qualifiers: Sepsis type: sepsis due to unspecified organism Qualified Code(s): A41.9 - Sepsis, unspecified organism (6) Wound of foot Code(s): S91.309A - UNSPECIFIED OPEN WOUND, UNSPECIFIED FOOT, INITIAL ENCOUNTER (7) A-fib Code(s): I48.91 - UNSPECIFIED ATRIAL FIBRILLATION (8) Anemia Code(s): D64.9 - ANEMIA, UNSPECIFIED (9) CKD (chronic kidney disease) Code(s): N18.9 - CHRONIC KIDNEY DISEASE, UNSPECIFIED (10) Cellulitis, leg Code(s): L03.119 - CELLULITIS OF UNSPECIFIED PART OF LIMB (11) Diabetes Code(s): E11.9 - TYPE 2 DIABETES MELLITUS WITHOUT COMPLICATIONS Qualifiers: Diabetes mellitus type: type 2 (12) ESRD (end stage renal disease) Code(s): N18.6 - END STAGE RENAL DISEASE (13) Venous stasis ulcer of right lower extremity Code(s): I83.019 - VARICOSE VEINS OF RIGHT LOWER EXTREMITY W ULCER OF UNSP SITE ; L97.919 - NON-PRS CHRONIC ULC UNSP PRT OF R LOW LEG W UNSP SEVERITY Assessment/Plan WAITING FOR THE HCP WHICH IS THE PATIENT'S SON TO SPEAK WITH US ON ADVANCED DIRECTIVES PALLIATIVE CONSULT APPROPIATE POOR OVERALL QUALITY OF LIFE IV ABX FOR LEG ULCERS/GANGRENOUS LEFT FOOT VASC SX EVAL POSSIBLE AMPUTATION DM BGM CHECKS A1C.LIPIDS CHECKED ON [employer] PLACEMENT
[2019-01-13] MEDS: TAMSULOSIN HCL 0.4 MG CAP PO SCH (22:48)
[2019-01-13] MEDS: ATORVASTATIN CA 20 MG TABLET (FP) PO SCH (22:49)
[2019-01-14] MEDS ORDERED: PIPERACILLIN/TAZOBACTAM 2.25 GM VIAL IVPB ONE ×3 (01:38→16:48)
[2019-01-14] MEDS ORDERED: DEXTROSE 5%-WATER - 50 ML IVPB ONE ×3 (01:38→16:48)
[2019-01-14] MEDS: PIPERACILLIN/TAZOB 2.25 GM 2.25 GM in DEXTROSE 5%-WATER - 50 ML IVPB SCH ×3 (01:57→17:50)
[2019-01-14] MEDS: ACETAMINOPHEN 325 MG TABLET (FP) PO PRN (01:58)
[2019-01-14] MEDS: INSULIN SLIDING SCALE (NOVOLOG) 1 VIAL SQ SCH ×4 (06:06→23:20)
[2019-01-14] MEDS: APIXABAN 5 MG TABLET PO SCH ×2 (09:23→23:20)
[2019-01-14] MEDS: ESCITALOPRAM OXALATE 10 MG TABLET (FP) PO SCH (09:23)
[2019-01-14] MEDS: SEVELAMER CARBONATE 800 MG TAB (FP) PO SCH ×3 (09:23→17:51)
[2019-01-14] MEDS: AMINO ACIDS/PROTEIN HYDROLYS 30 ML LIQUID.PKT PO SCH ×2 (09:23→17:51)
[2019-01-14] MEDS: ALLOPURINOL 100 MG TABLET (FP) PO SCH (09:23)
[2019-01-14] MEDS: VITAMIN B COMP W-C 1 EA TABLET PO SCH (09:23)
[2019-01-14] MEDS: COLLAGENASE CLOSTRIDIUM HIST. 30 GRAMS TUBE TP SCH (09:23)
[2019-01-14] MEDS: ZINC OXIDE 20% TOPICAL OINTMENT 30 GM TUBE TP SCH ×2 (09:24→23:20)
[2019-01-14] MEDS ORDERED: SODIUM CHLORIDE 250 ML IV PRN (09:30)
[2019-01-14] MEDS ORDERED: EPOETIN ALFA 2,000 UNIT/1 ML VIAL SQ ONE (10:00)
--- NOTE | 2019-01-14 11:22 | PN ---
Progress Note, Physician History of Present Illness: PULMONARY AWAKE,NO DISTRESS,ON HD,-CP,-SOB - Current Medication List Current Medications: Active Medications Acetaminophen (Tylenol -) 650 mg PO Q6H PRN PRN Reason: PAIN Last Admin: 01/14/19 01:58 Dose: 650 mg Albuterol/Ipratropium (Duoneb -) 1 amp NEB Q6H PRN PRN Reason: SHORTNESS OF BREATH Allopurinol (Zyloprim -) 100 mg PO DAILY [facility] Last Admin: 01/14/19 09:23 Dose: 100 mg Amino Acids (Prosource No Carb Liquid Pkt) 30 ml PO BID@0800,1730 [facility] Last Admin: 01/14/19 09:23 Dose: 30 ml Apixaban (Eliquis -) 5 mg PO BID [facility] Last Admin: 01/14/19 09:23 Dose: 5 mg Atorvastatin Calcium (Lipitor -) 20 mg PO HS [facility] Last Admin: 01/13/19 22:49 Dose: 20 mg Collagenase (Santyl -) 1 applic TP DAILY [facility]; Protocol Last Admin: 01/14/19 09:23 Dose: 1 applic Docusate Sodium (Colace -) 100 mg PO BID PRN PRN Reason: CONSTIPATION Escitalopram Oxalate (Lexapro -) 10 mg PO DAILY [facility] Last Admin: 01/14/19 09:23 Dose: 10 mg Piperacillin Sod/Tazobactam (Sod 2.25 gm/ Dextrose) 50 mls @ 100 mls/hr IVPB Q8H-IV [facility]; Protocol Last Admin: 01/14/19 09:37 Dose: 100 mls/hr Insulin Aspart (Novolog Vial Sliding Scale -) 1 vial SQ ACHS [facility]; Protocol Last Admin: 01/14/19 06:06 Dose: Not Given Midodrine (Proamatine -) 10 mg PO MoWeFr@1000 [facility] Last Admin: 01/11/19 10:04 Dose: 10 mg Multi-Ingredient Ointment (Zinc Oxide) 1 applic TP BID [facility] Last Admin: 01/14/19 09:24 Dose: 1 applic Multivit/Ca Carb/B Cmplx/FA/Prenat (Nephro-Mary -) 1 tablet PO DAILY [facility] Last Admin: 01/14/19 09:23 Dose: 1 tablet Senna (Senna -) 2 tab PO HS PRN PRN Reason: CONSTIPATION Sevelamer Carbonate (Renvela -) 1,600 mg PO TIDCM [facility] Last Admin: 01/14/19 09:23 Dose: 1,600 mg Tamsulosin HCl (Flomax -) 0.4 mg PO HS [facility] Last Admin: 01/13/19 22:48 Dose: 0.4 mg - Objective Vital Signs: Vital Signs Temperature 97.6 F 01/14/19 09:40 Pulse Rate 80 01/14/19 09:45 Respiratory Rate 18 01/14/19 09:45 Blood Pressure 108/59 L 01/14/19 09:45 O2 Sat by Pulse Oximetry (%) 95 01/14/19 04:55 Constitutional: Yes: Well Nourished, Calm Eyes: Yes: WNL HENT: Yes: WNL Neck: Yes: WNL Cardiovascular: Yes: Regular Rate and Rhythm, S1, S2 Respiratory: Yes: Diminished Gastrointestinal: Yes: Normal Bowel Sounds, Soft Extremities: Yes: Other (CONTRACTED) Edema: No Labs: CBC, BMP 01/12/19 05:30 Assessment/Plan Problem List - Problems (1) COPD (chronic obstructive pulmonary disease) Code(s): J44.9 - CHRONIC OBSTRUCTIVE PULMONARY DISEASE, UNSPECIFIED (2) CVA (cerebral vascular accident) Code(s): I63.9 - CEREBRAL INFARCTION, UNSPECIFIED (3) Gangrene of foot Code(s): I96 - GANGRENE, NOT ELSEWHERE CLASSIFIED (4) HLD (hyperlipidemia) Code(s): E78.5 - HYPERLIPIDEMIA, UNSPECIFIED (5) PVD (peripheral vascular disease) Code(s): I73.9 - PERIPHERAL VASCULAR DISEASE, UNSPECIFIED (6) Anemia in chronic illness Code(s): D63.8 - ANEMIA IN OTHER CHRONIC DISEASES CLASSIFIED ELSEWHERE (7) CKD (chronic kidney disease) Code(s): N18.9 - CHRONIC KIDNEY DISEASE, UNSPECIFIED (8) Diabetes Code(s): E11.9 - TYPE 2 DIABETES MELLITUS WITHOUT COMPLICATIONS Qualifiers: Diabetes mellitus type: type 2 (9) ESRD (end stage renal disease) Code(s): N18.6 - END STAGE RENAL DISEASE (10) HTN (hypertension) Code(s): I10 - ESSENTIAL (PRIMARY) HYPERTENSION Qualifiers: Hypertension type: essential hypertension Qualified Code(s): I10 - Essential (primary) hypertension Assessment/Plan BD TX PRN O2 as needed, currently saturation is 95% on RA at rest VTE prophylaxis HD per Renal ABX per ID DR [email or web address]
--- NOTE | 2019-01-14 12:21 | PN ---
Progress Note, Physician History of Present Illness: Pt seen and examined at bedside. He is awake and appears comfortable. He remains confused. - Current Medication List Current Medications: Active Medications Acetaminophen (Tylenol -) 650 mg PO Q6H PRN PRN Reason: PAIN Last Admin: 01/14/19 01:58 Dose: 650 mg Albuterol/Ipratropium (Duoneb -) 1 amp NEB Q6H PRN PRN Reason: SHORTNESS OF BREATH Allopurinol (Zyloprim -) 100 mg PO DAILY [facility] Last Admin: 01/14/19 09:23 Dose: 100 mg Amino Acids (Prosource No Carb Liquid Pkt) 30 ml PO BID@0800,1730 [facility] Last Admin: 01/14/19 09:23 Dose: 30 ml Apixaban (Eliquis -) 5 mg PO BID [facility] Last Admin: 01/14/19 09:23 Dose: 5 mg Atorvastatin Calcium (Lipitor -) 20 mg PO HS [facility] Last Admin: 01/13/19 22:49 Dose: 20 mg Collagenase (Santyl -) 1 applic TP DAILY [facility]; Protocol Last Admin: 01/14/19 09:23 Dose: 1 applic Docusate Sodium (Colace -) 100 mg PO BID PRN PRN Reason: CONSTIPATION Escitalopram Oxalate (Lexapro -) 10 mg PO DAILY [facility] Last Admin: 01/14/19 09:23 Dose: 10 mg Piperacillin Sod/Tazobactam (Sod 2.25 gm/ Dextrose) 50 mls @ 100 mls/hr IVPB Q8H-IV [facility]; Protocol Last Admin: 01/14/19 09:37 Dose: 100 mls/hr Insulin Aspart (Novolog Vial Sliding Scale -) 1 vial SQ ACHS [facility]; Protocol Last Admin: 01/14/19 12:17 Dose: Not Given Midodrine (Proamatine -) 10 mg PO MoWeFr@1000 [facility] Last Admin: 01/11/19 10:04 Dose: 10 mg Multi-Ingredient Ointment (Zinc Oxide) 1 applic TP BID [facility] Last Admin: 01/14/19 09:24 Dose: 1 applic Multivit/Ca Carb/B Cmplx/FA/Prenat (Nephro-Mary -) 1 tablet PO DAILY [facility] Last Admin: 01/14/19 09:23 Dose: 1 tablet Senna (Senna -) 2 tab PO HS PRN PRN Reason: CONSTIPATION Sevelamer Carbonate (Renvela -) 1,600 mg PO TIDCM [facility] Last Admin: 01/14/19 12:17 Dose: Not Given Tamsulosin HCl (Flomax -) 0.4 mg PO HS [facility] Last Admin: 01/13/19 22:48 Dose: 0.4 mg - Objective Vital Signs: Vital Signs Temperature 97.6 F 01/14/19 09:40 Pulse Rate 92 H 01/14/19 10:45 Respiratory Rate 18 01/14/19 10:45 Blood Pressure 105/55 L 01/14/19 10:45 O2 Sat by Pulse Oximetry (%) 95 01/14/19 04:55 Constitutional: Yes: Calm Eyes: Yes: Conjunctiva Clear HENT: Yes: Atraumatic Cardiovascular: Yes: S2 Respiratory: Yes: CTA Bilaterally Gastrointestinal: Yes: Soft Genitourinary: Yes: Incontinence Musculoskeletal: Yes: Muscle Weakness, Other (contracted) Edema: No Neurological: Yes: Confusion Labs: CBC, BMP 01/12/19 05:30 01/12/19 05:30 INR, PTT INR 1.56 (0.83-1.09) H 01/09/19 21:20 Problem List - Problems (1) CVA (cerebral vascular accident) Code(s): I63.9 - CEREBRAL INFARCTION, UNSPECIFIED (2) Gangrene of foot Code(s): I96 - GANGRENE, NOT ELSEWHERE CLASSIFIED (3) ESRD (end stage renal disease) Code(s): N18.6 - END STAGE RENAL DISEASE Assessment/Plan Current Medications Generic Name Dose Route Start Last Admin Trade Name Freq PRN Reason Stop Dose Admin Acetaminophen 650 mg 01/10/19 22:44 01/14/19 01:58 Tylenol - PO 650 mg Q6H PRN Administration PAIN Albuterol/Ipratropium 1 amp 01/09/19 23:29 Duoneb - NEB Q6H PRN SHORTNESS OF BREATH Allopurinol 100 mg 01/10/19 10:00 01/14/19 09:23 Zyloprim - PO 100 mg DAILY [facility] Administration Amino Acids 30 ml 01/12/19 17:30 01/14/19 09:23 Prosource No Carb Liquid Pkt PO 30 ml BID@0800,1730 [facility] Administration Apixaban 5 mg 01/11/19 13:00 04/22/19 09:23 Eliquis - PO 5 mg BID [facility] Administration Atorvastatin Calcium 20 mg 01/10/19 22:00 01/13/19 22:49 Lipitor - PO 20 mg HS [facility] Administration Collagenase 1 applic 01/12/19 10:00 01/14/19 09:23 Santyl - TP 1 applic DAILY [facility] Administration Protocol Docusate Sodium 100 mg 01/09/19 23:56 Colace - PO BID PRN CONSTIPATION Escitalopram Oxalate 10 mg 01/10/19 10:00 01/14/19 09:23 Lexapro - PO 10 mg DAILY [facility] Administration Piperacillin Sod/Tazobactam 50 mls @ 100 mls/hr 01/10/19 14:30 01/14/19 09:37 Sod 2.25 gm/ Dextrose IVPB 100 mls/hr Q8H-IV [facility] Administration Protocol Insulin Aspart 1 vial 01/10/19 07:00 01/14/19 12:17 Novolog Vial Sliding Scale - SQ Not Given ACHS [facility] Protocol Midodrine 10 mg 01/11/19 10:00 01/11/19 10:04 Proamatine - PO 10 mg MoWeFr@1000 [facility] Administration Multi-Ingredient Ointment 1 applic 01/10/19 10:00 01/14/19 09:24 Zinc Oxide TP 1 applic BID [facility] Administration Multivit/Ca Carb/B Cmplx/FA/Prenat 1 tablet 01/13/19 10:00 01/14/19 09:23 Nephro-Mary - PO 1 tablet DAILY [facility] Administration Senna 2 tab 01/09/19 23:56 Senna - PO HS PRN CONSTIPATION Sevelamer Carbonate 1,600 mg 01/10/19 08:00 01/14/19 12:17 Renvela - PO Not Given TIDCM [facility] Tamsulosin HCl 0.4 mg 01/10/19 22:00 01/13/19 22:48 Flomax - PO 0.4 mg HS [facility] Administration Impression 1. ESRD 2. gangrene 3. DM 4. hyperlipidemia 5. HTN 6. gout 7. proteinuria Plan - pt tolerating HD - cont wound care - has HD set up as outpt - renal diet
[2019-01-14] MEDS ORDERED: PT OWN MED DRAWER 7, Y5N ONE (13:02)
[2019-01-14] MEDS: MIDODRINE HCL 5 MG TABLET PO SCH (13:10)
--- NOTE | 2019-01-14 14:30 | PN ---
Progress Note, Physician Chief Complaint: pateint seen and examined awake confused - Current Medication List Current Medications: Active Medications Acetaminophen (Tylenol -) 650 mg PO Q6H PRN PRN Reason: PAIN Last Admin: 01/14/19 01:58 Dose: 650 mg Albuterol/Ipratropium (Duoneb -) 1 amp NEB Q6H PRN PRN Reason: SHORTNESS OF BREATH Allopurinol (Zyloprim -) 100 mg PO DAILY [facility] Last Admin: 01/14/19 09:23 Dose: 100 mg Amino Acids (Prosource No Carb Liquid Pkt) 30 ml PO BID@0800,1730 [facility] Last Admin: 01/14/19 09:23 Dose: 30 ml Apixaban (Eliquis -) 5 mg PO BID [facility] Last Admin: 01/14/19 09:23 Dose: 5 mg Atorvastatin Calcium (Lipitor -) 20 mg PO HS [facility] Last Admin: 01/13/19 22:49 Dose: 20 mg Collagenase (Santyl -) 1 applic TP DAILY [facility]; Protocol Last Admin: 01/14/19 09:23 Dose: 1 applic Docusate Sodium (Colace -) 100 mg PO BID PRN PRN Reason: CONSTIPATION Escitalopram Oxalate (Lexapro -) 10 mg PO DAILY [facility] Last Admin: 01/14/19 09:23 Dose: 10 mg Piperacillin Sod/Tazobactam (Sod 2.25 gm/ Dextrose) 50 mls @ 100 mls/hr IVPB Q8H-IV [facility]; Protocol Last Admin: 01/14/19 09:37 Dose: 100 mls/hr Insulin Aspart (Novolog Vial Sliding Scale -) 1 vial SQ ACHS [facility]; Protocol Last Admin: 01/14/19 12:17 Dose: Not Given Midodrine (Proamatine -) 10 mg PO MoWeFr@1000 [facility] Last Admin: 01/14/19 13:10 Dose: 10 mg Multi-Ingredient Ointment (Zinc Oxide) 1 applic TP BID [facility] Last Admin: 01/14/19 09:24 Dose: 1 applic Multivit/Ca Carb/B Cmplx/FA/Prenat (Nephro-Mary -) 1 tablet PO DAILY [facility] Last Admin: 01/14/19 09:23 Dose: 1 tablet Senna (Senna -) 2 tab PO HS PRN PRN Reason: CONSTIPATION Sevelamer Carbonate (Renvela -) 1,600 mg PO TIDCM [facility] Last Admin: 01/14/19 12:17 Dose: Not Given Tamsulosin HCl (Flomax -) 0.4 mg PO HS [facility] Last Admin: 01/13/19 22:48 Dose: 0.4 mg - Objective Vital Signs: Vital Signs Temperature 97.6 F 01/14/19 09:40 Pulse Rate 65 01/14/19 13:02 Respiratory Rate 18 01/14/19 13:02 Blood Pressure 102/68 01/14/19 13:02 O2 Sat by Pulse Oximetry (%) 96 01/14/19 09:00 Constitutional: Yes: Calm, Thin Cardiovascular: Yes: Regular Rate and Rhythm, S1, S2 Respiratory: Yes: Diminished Gastrointestinal: Yes: Normal Bowel Sounds, Soft Extremities: Yes: Other (contracted) Edema: No Wound/Incision: Yes: Other (foot wounds dressing serosanginuos drainage) Labs: CBC, BMP 01/12/19 05:30 01/12/19 05:30 INR, PTT INR 1.56 (0.83-1.09) H 01/09/19 21:20 Problem List - Problems (1) Wound of foot Assessment/Plan: treat iv abx vancomycin and zosyn dr Frazier lto speak with HCP daughter regarding holding off amputation and advance directives ID on board Microbiology 01/09/19 21:50 Foot - Right Heel Gram Stain - Final 01/09/19 21:30 Foot - Left Heel Gram Stain - Final 01/09/19 21:50 Foot - Right Heel Wound Culture - Preliminary Presumptive Mrsa (Pbp2a Pos) 01/09/19 21:30 Foot - Left Heel Wound Culture - Preliminary Lactose Fermenting Neg Bacilli Proteus Species Staphylococcus Latex Coag Pos isolation resume diet resume eliquis Microbiology 01/09/19 21:50 Foot - Right Heel Gram Stain - Final 01/09/19 21:50 Foot - Right Heel Wound Culture - Final Mr S Aureus 01/09/19 21:30 Foot - Left Heel Gram Stain - Final 01/09/19 21:30 Foot - Left Heel Wound Culture - Preliminary Escherichia Coli Esbl Fuselage Framer Proteus Mirabilis Mr S Aureus Group D Strep Or Entero Coccus Code(s): S91.309A - UNSPECIFIED OPEN WOUND, UNSPECIFIED FOOT, INITIAL ENCOUNTER (2) CKD (chronic kidney disease) Assessment/Plan: renal on board Code(s): N18.9 - CHRONIC KIDNEY DISEASE, UNSPECIFIED (3) A-fib Assessment/Plan: eliquis Code(s): I48.91 - UNSPECIFIED ATRIAL FIBRILLATION
[2019-01-14] MEDS: ATORVASTATIN CA 20 MG TABLET (FP) PO SCH (23:20)
[2019-01-14] MEDS: TAMSULOSIN HCL 0.4 MG CAP PO SCH (23:20)
[2019-01-15] MEDS ORDERED: PIPERACILLIN/TAZOBACTAM 2.25 GM VIAL IVPB ONE ×3 (02:13→17:07)
[2019-01-15] MEDS ORDERED: DEXTROSE 5%-WATER - 50 ML IVPB ONE ×3 (02:13→17:07)
[2019-01-15] MEDS: PIPERACILLIN/TAZOB 2.25 GM 2.25 GM in DEXTROSE 5%-WATER - 50 ML IVPB SCH ×3 (02:56→17:27)
[2019-01-15] MEDS: INSULIN SLIDING SCALE (NOVOLOG) 1 VIAL SQ SCH ×4 (06:49→22:36)
[2019-01-15 08:08] LABS: BASO % 0.6 % (0-2.0); EOS % 0.5 % (0-4.5); HEMATOCRIT 26.3 % (35.4-49); HEMOGLOBIN 8.4 GM/dL (11.7-16.9); LYMPH % 18.9 % (8-40); MCH 29.9 pg (25.7-33.7); MCHC 31.8 g/dl (32.0-35.9); MEAN CELL VOLUME 93.9 fl (80-96); MEAN PLT VOLUME 7.9 fl (7.5-11.1); MONO % 8.1 % (3.8-10.2); NEUT % 71.9 % (42.8-82.8); PLATELET COUNT 381 K/MM3 (134-434); RDW 17.3 % (11.9-15.9); WHITE BLOOD COUNT 10.7 K/mm3 (4.0-10.0)
[2019-01-15 08:26] LABS: ALBUMIN 1.4 g/dl (3.4-5.0); ALK PHOS 144 U/L (45-117); ANION GAP 6 MMOL/L (8-16); BILIRUBIN,TOTAL 0.4 mg/dL (0.2-1); BLOOD UREA NITROGEN 25 mg/dL (7-18); CALCIUM 8.3 mg/dL (8.5-10.1); CHLORIDE 104 mmol/L (98-107); CO2 33 mmol/L (21-32); CREATININE 2.4 mg/dL (0.55-1.3); GLUCOSE,RANDOM 76 mg/dL (74-106); POTASSIUM 3.2 mmol/L (3.5-5.1); SGOT/AST 10 U/L (15-37); SGPT/ALT 9 U/L (13-61); SODIUM 142 mmol/L (136-145); TOT PROT 6.4 g/dl (6.4-8.2)
--- NOTE | 2019-01-15 08:53 | PN ---
Progress Note, Physician - Current Medication List Current Medications: Active Medications Acetaminophen (Tylenol -) 650 mg PO Q6H PRN PRN Reason: PAIN Last Admin: 01/14/19 01:58 Dose: 650 mg Allopurinol (Zyloprim -) 100 mg PO DAILY [facility] Last Admin: 01/14/19 09:23 Dose: 100 mg Amino Acids (Prosource No Carb Liquid Pkt) 30 ml PO BID@0800,1730 [facility] Last Admin: 01/14/19 17:51 Dose: 30 ml Apixaban (Eliquis -) 5 mg PO BID [facility] Last Admin: 01/14/19 23:20 Dose: 5 mg Atorvastatin Calcium (Lipitor -) 20 mg PO HS [facility] Last Admin: 01/14/19 23:20 Dose: 20 mg Collagenase (Santyl -) 1 applic TP DAILY [facility]; Protocol Last Admin: 01/14/19 09:23 Dose: 1 applic Docusate Sodium (Colace -) 100 mg PO BID PRN PRN Reason: CONSTIPATION Escitalopram Oxalate (Lexapro -) 10 mg PO DAILY [facility] Last Admin: 01/14/19 09:23 Dose: 10 mg Piperacillin Sod/Tazobactam (Sod 2.25 gm/ Dextrose) 50 mls @ 100 mls/hr IVPB Q8H-IV [facility]; Protocol Last Admin: 01/15/19 02:56 Dose: 100 mls/hr Insulin Aspart (Novolog Vial Sliding Scale -) 1 vial SQ ACHS [facility]; Protocol Last Admin: 01/15/19 06:49 Dose: Not Given Midodrine (Proamatine -) 10 mg PO MoWeFr@1000 [facility] Last Admin: 01/14/19 13:10 Dose: 10 mg Multi-Ingredient Ointment (Zinc Oxide) 1 applic TP BID [facility] Last Admin: 01/14/19 23:20 Dose: 1 applic Multivit/Ca Carb/B Cmplx/FA/Prenat (Nephro-Mary -) 1 tablet PO DAILY [facility] Last Admin: 01/14/19 09:23 Dose: 1 tablet Senna (Senna -) 2 tab PO HS PRN PRN Reason: CONSTIPATION Sevelamer Carbonate (Renvela -) 1,600 mg PO TIDCM [facility] Last Admin: 01/14/19 17:51 Dose: 1,600 mg Tamsulosin HCl (Flomax -) 0.4 mg PO HS [facility] Last Admin: 01/14/19 23:20 Dose: 0.4 mg - Objective Vital Signs: Vital Signs Temperature 98.3 F 01/15/19 06:00 Pulse Rate 72 01/15/19 06:00 Respiratory Rate 20 01/15/19 06:00 Blood Pressure 102/50 L 01/15/19 06:00 O2 Sat by Pulse Oximetry (%) 100 01/14/19 21:00 Cardiovascular: Yes: S1, S2 Respiratory: Yes: Regular, CTA Bilaterally Wound/Incision: Yes: Dressing Dry and Intact Labs: CBC, BMP 01/15/19 05:46 01/15/19 05:46 INR, PTT INR 1.56 (0.83-1.09) H 01/09/19 21:20 Assessment/Plan - Problems (1) Wound of foot Assessment/Plan: treat iv abx vancomycin and zosyn dr Frazier lto speak with HCP daughter regarding holding off amputation and advance directives ID on board Microbiology 01/09/19 21:50 Foot - Right Heel Gram Stain - Final 01/09/19 21:30 Foot - Left Heel Gram Stain - Final 01/09/19 21:50 Foot - Right Heel Wound Culture - Preliminary Presumptive Mrsa (Pbp2a Pos) 01/09/19 21:30 Foot - Left Heel Wound Culture - Preliminary Lactose Fermenting Neg Bacilli Proteus Species Staphylococcus Latex Coag Pos isolation resume diet resume eliquis Microbiology 01/09/19 21:50 Foot - Right Heel Gram Stain - Final 01/09/19 21:50 Foot - Right Heel Wound Culture - Final S Aureus 01/09/19 21:30 Foot - Left Heel Gram Stain - Final 01/09/19 21:30 Foot - Left Heel Wound Culture - Preliminary Escherichia Coli Esbl High Rigger Proteus Mirabilis Mr S Aureus Group D Strep Or Entero Coccus Code(s): S91.309A - UNSPECIFIED OPEN WOUND, UNSPECIFIED FOOT, INITIAL ENCOUNTER (2) CKD (chronic kidney disease) Assessment/Plan: renal on board Code(s): N18.9 - CHRONIC KIDNEY DISEASE, UNSPECIFIED (3) A-fib Assessment/Plan: eliquis Code(s): I48.91 - UNSPECIFIED ATRIAL FIBRILLATION
[2019-01-15] MEDS: SEVELAMER CARBONATE 800 MG TAB (FP) PO SCH ×3 (09:58→17:28)
[2019-01-15] MEDS: VITAMIN B COMP W-C 1 EA TABLET PO SCH (09:58)
[2019-01-15] MEDS: ALLOPURINOL 100 MG TABLET (FP) PO SCH (09:58)
[2019-01-15] MEDS: AMINO ACIDS/PROTEIN HYDROLYS 30 ML LIQUID.PKT PO SCH ×2 (09:59→17:27)
[2019-01-15] MEDS: COLLAGENASE CLOSTRIDIUM HIST. 30 GRAMS TUBE TP SCH (09:59)
[2019-01-15] MEDS: ZINC OXIDE 20% TOPICAL OINTMENT 30 GM TUBE TP SCH ×2 (09:59→22:35)
[2019-01-15] MEDS: APIXABAN 5 MG TABLET PO SCH ×2 (09:59→22:35)
[2019-01-15] MEDS: ESCITALOPRAM OXALATE 10 MG TABLET (FP) PO SCH (09:59)
--- NOTE | 2019-01-15 10:43 | PN ---
Progress Note, Physician History of Present Illness: PULMONARY AWAKE,COMFORTABLE,-RESP DISTRESS - Current Medication List Current Medications: Active Medications Acetaminophen (Tylenol -) 650 mg PO Q6H PRN PRN Reason: PAIN Last Admin: 01/14/19 01:58 Dose: 650 mg Allopurinol (Zyloprim -) 100 mg PO DAILY [facility] Last Admin: 01/15/19 09:58 Dose: 100 mg Amino Acids (Prosource No Carb Liquid Pkt) 30 ml PO BID@0800,1730 [facility] Last Admin: 01/15/19 09:59 Dose: 30 ml Apixaban (Eliquis -) 5 mg PO BID [facility] Last Admin: 01/15/19 09:59 Dose: 5 mg Atorvastatin Calcium (Lipitor -) 20 mg PO HS [facility] Last Admin: 01/14/19 23:20 Dose: 20 mg Collagenase (Santyl -) 1 applic TP DAILY [facility]; Protocol Last Admin: 01/15/19 09:59 Dose: 1 applic Docusate Sodium (Colace -) 100 mg PO BID PRN PRN Reason: CONSTIPATION Escitalopram Oxalate (Lexapro -) 10 mg PO DAILY [facility] Last Admin: 01/15/19 09:59 Dose: 10 mg Piperacillin Sod/Tazobactam (Sod 2.25 gm/ Dextrose) 50 mls @ 100 mls/hr IVPB Q8H-IV [facility]; Protocol Last Admin: 01/15/19 09:59 Dose: 100 mls/hr Insulin Aspart (Novolog Vial Sliding Scale -) 1 vial SQ ACHS [facility]; Protocol Last Admin: 01/15/19 06:49 Dose: Not Given Midodrine (Proamatine -) 10 mg PO MoWeFr@1000 [facility] Last Admin: 01/14/19 13:10 Dose: 10 mg Multi-Ingredient Ointment (Zinc Oxide) 1 applic TP BID [facility] Last Admin: 01/15/19 09:59 Dose: 1 applic Multivit/Ca Carb/B Cmplx/FA/Prenat (Nephro-Mary -) 1 tablet PO DAILY [facility] Last Admin: 01/15/19 09:58 Dose: 1 tablet Senna (Senna -) 2 tab PO HS PRN PRN Reason: CONSTIPATION Sevelamer Carbonate (Renvela -) 1,600 mg PO TIDCM [facility] Last Admin: 01/15/19 09:58 Dose: 1,600 mg Tamsulosin HCl (Flomax -) 0.4 mg PO HS [facility] Last Admin: 01/14/19 23:20 Dose: 0.4 mg - Objective Vital Signs: Vital Signs Temperature 98.3 F 01/15/19 06:00 Pulse Rate 72 01/15/19 06:00 Respiratory Rate 20 01/15/19 06:00 Blood Pressure 102/50 L 01/15/19 06:00 O2 Sat by Pulse Oximetry (%) 100 01/14/19 21:00 Constitutional: Yes: Well Nourished, Calm Eyes: Yes: WNL HENT: Yes: WNL Neck: Yes: WNL Cardiovascular: Yes: Regular Rate and Rhythm, S1, S2 Respiratory: Yes: Diminished Gastrointestinal: Yes: Normal Bowel Sounds, Soft Extremities: Yes: Other (CONTRACTED) Edema: No Labs: CBC, BMP 01/15/19 05:46 01/15/19 05:46 INR, PTT INR 1.56 (0.83-1.09) H 01/09/19 21:20 Assessment/Plan Problem List - Problems (1) COPD (chronic obstructive pulmonary disease) Code(s): J44.9 - CHRONIC OBSTRUCTIVE PULMONARY DISEASE, UNSPECIFIED (2) CVA (cerebral vascular accident) Code(s): I63.9 - CEREBRAL INFARCTION, UNSPECIFIED (3) Gangrene of foot Code(s): I96 - GANGRENE, NOT ELSEWHERE CLASSIFIED (4) HLD (hyperlipidemia) Code(s): E78.5 - HYPERLIPIDEMIA, UNSPECIFIED (5) PVD (peripheral vascular disease) Code(s): I73.9 - PERIPHERAL VASCULAR DISEASE, UNSPECIFIED (6) Anemia in chronic illness Code(s): D63.8 - ANEMIA IN OTHER CHRONIC DISEASES CLASSIFIED ELSEWHERE (7) CKD (chronic kidney disease) Code(s): N18.9 - CHRONIC KIDNEY DISEASE, UNSPECIFIED (8) Diabetes Code(s): E11.9 - TYPE 2 DIABETES MELLITUS WITHOUT COMPLICATIONS Qualifiers: Diabetes mellitus type: type 2 (9) ESRD (end stage renal disease) Code(s): N18.6 - END STAGE RENAL DISEASE (10) HTN (hypertension) Code(s): I10 - ESSENTIAL (PRIMARY) HYPERTENSION Qualifiers: Hypertension type: essential hypertension Qualified Code(s): I10 - Essential (primary) hypertension Assessment/Plan BD TX PRN O2 as needed VTE prophylaxis HD per Renal ABX per ID DR GODINEZ
--- NOTE | 2019-01-15 15:10 | PN ---
Progress Note, Physician History of Present Illness: Pt seen and examined at bedside. He is awake and appears comfortable. - Current Medication List Current Medications: Active Medications Acetaminophen (Tylenol -) 650 mg PO Q6H PRN PRN Reason: PAIN Last Admin: 01/14/19 01:58 Dose: 650 mg Allopurinol (Zyloprim -) 100 mg PO DAILY [facility] Last Admin: 01/15/19 09:58 Dose: 100 mg Amino Acids (Prosource No Carb Liquid Pkt) 30 ml PO BID@0800,1730 [facility] Last Admin: 01/15/19 09:59 Dose: 30 ml Apixaban (Eliquis -) 5 mg PO BID [facility] Last Admin: 01/15/19 09:59 Dose: 5 mg Atorvastatin Calcium (Lipitor -) 20 mg PO HS [facility] Last Admin: 01/14/19 23:20 Dose: 20 mg Collagenase (Santyl -) 1 applic TP DAILY [facility]; Protocol Last Admin: 01/15/19 09:59 Dose: 1 applic Docusate Sodium (Colace -) 100 mg PO BID PRN PRN Reason: CONSTIPATION Escitalopram Oxalate (Lexapro -) 10 mg PO DAILY [facility] Last Admin: 01/15/19 09:59 Dose: 10 mg Piperacillin Sod/Tazobactam (Sod 2.25 gm/ Dextrose) 50 mls @ 100 mls/hr IVPB Q8H-IV [facility]; Protocol Last Admin: 01/15/19 09:59 Dose: 100 mls/hr Insulin Aspart (Novolog Vial Sliding Scale -) 1 vial SQ ACHS [facility]; Protocol Last Admin: 01/15/19 12:00 Dose: Not Given Midodrine (Proamatine -) 10 mg PO MoWeFr@1000 [facility] Last Admin: 01/14/19 13:10 Dose: 10 mg Multi-Ingredient Ointment (Zinc Oxide) 1 applic TP BID [facility] Last Admin: 01/15/19 09:59 Dose: 1 applic Multivit/Ca Carb/B Cmplx/FA/Prenat (Nephro-Mary -) 1 tablet PO DAILY [facility] Last Admin: 01/15/19 09:58 Dose: 1 tablet Senna (Senna -) 2 tab PO HS PRN PRN Reason: CONSTIPATION Sevelamer Carbonate (Renvela -) 1,600 mg PO TIDCM [facility] Last Admin: 01/15/19 11:40 Dose: 1,600 mg Tamsulosin HCl (Flomax -) 0.4 mg PO HS [facility] Last Admin: 01/14/19 23:20 Dose: 0.4 mg - Objective Vital Signs: Vital Signs Temperature 98.3 F 01/15/19 10:00 Pulse Rate 84 01/15/19 10:00 Respiratory Rate 20 01/15/19 10:00 Blood Pressure 101/58 L 01/15/19 10:00 O2 Sat by Pulse Oximetry (%) 100 01/15/19 10:00 Constitutional: Yes: Calm Eyes: Yes: Conjunctiva Clear HENT: Yes: Atraumatic Neck: Yes: Supple Cardiovascular: Yes: S1, S2 Respiratory: Yes: CTA Bilaterally Gastrointestinal: Yes: Soft Genitourinary: Yes: Incontinence Musculoskeletal: Yes: Muscle Weakness Edema: No Neurological: Yes: Confusion Labs: CBC, BMP 01/15/19 05:46 01/15/19 05:46 INR, PTT INR 1.56 (0.83-1.09) H 01/09/19 21:20 Problem List - Problems (1) CVA (cerebral vascular accident) Code(s): I63.9 - CEREBRAL INFARCTION, UNSPECIFIED (2) Gangrene of foot Code(s): I96 - GANGRENE, NOT ELSEWHERE CLASSIFIED (3) ESRD (end stage renal disease) Code(s): N18.6 - END STAGE RENAL DISEASE Assessment/Plan Current Medications Generic Name Dose Route Start Last Admin Trade Name Freq PRN Reason Stop Dose Admin Acetaminophen 650 mg 01/10/19 22:44 01/14/19 01:58 Tylenol - PO 650 mg Q6H PRN Administration PAIN Allopurinol 100 mg 01/10/19 10:00 01/15/19 09:58 Zyloprim - PO 100 mg DAILY [facility] Administration Amino Acids 30 ml 01/12/19 17:30 01/15/19 09:59 Prosource No Carb Liquid Pkt PO 30 ml BID@0800,1730 [facility] Administration Apixaban 5 mg 01/11/19 13:00 01/15/19 09:59 Eliquis - PO 5 mg BID [facility] Administration Atorvastatin Calcium 20 mg 01/10/19 22:00 01/14/19 23:20 Lipitor - PO 20 mg HS [facility] Administration Collagenase 1 applic 01/12/19 10:00 01/15/19 09:59 Santyl - TP 1 applic DAILY [facility] Administration Protocol Docusate Sodium 100 mg 01/09/19 23:56 Colace - PO BID PRN CONSTIPATION Escitalopram Oxalate 10 mg 01/10/19 10:00 01/15/19 09:59 Lexapro - PO 10 mg DAILY [facility] Administration Piperacillin Sod/Tazobactam 50 mls @ 100 mls/hr 01/10/19 14:30 01/15/19 09:59 Sod 2.25 gm/ Dextrose IVPB 100 mls/hr Q8H-IV [facility] Administration Protocol Insulin Aspart 1 vial 01/10/19 07:00 01/15/19 12:00 Novolog Vial Sliding Scale - SQ Not Given ACHS [facility] Protocol Midodrine 10 mg 01/11/19 10:00 01/14/19 13:10 Proamatine - PO 10 mg MoWeFr@1000 [facility] Administration Multi-Ingredient Ointment 1 applic 01/10/19 10:00 01/15/19 09:59 Zinc Oxide TP 1 applic BID [facility] Administration Multivit/Ca Carb/B Cmplx/FA/Prenat 1 tablet 01/13/19 10:00 01/15/19 09:58 Nephro-Mary - PO 1 tablet DAILY [facility] Administration Senna 2 tab 01/09/19 23:56 Senna - PO HS PRN CONSTIPATION Sevelamer Carbonate 1,600 mg 01/10/19 08:00 01/15/19 11:40 Renvela - PO 1,600 mg TIDCM [facility] Administration Tamsulosin HCl 0.4 mg 01/10/19 22:00 01/14/19 23:20 Flomax - PO 0.4 mg HS [facility] Administration Impression 1. ESRD 2. gangrene 3. DM 4. hyperlipidemia 5. HTN 6. gout 7. proteinuria Plan - next HD tomorrow - cont wound care - abx per primary team - has HD set up as outpt - renal diet
[2019-01-15] MEDS ORDERED: SODIUM CHLORIDE 250 ML IV PRN (15:13)
[2019-01-15] MEDS ORDERED: POTASSIUM CHLORIDE TABS 20 MEQ TABLET.ER (FP) PO ONE (15:15)
[2019-01-15] MEDS: TAMSULOSIN HCL 0.4 MG CAP PO SCH (22:35)
[2019-01-15] MEDS: ATORVASTATIN CA 20 MG TABLET (FP) PO SCH (22:35)
[2019-01-16] MEDS ORDERED: PIPERACILLIN/TAZOBACTAM 2.25 GM VIAL IVPB ONE ×3 (02:36→17:44)
[2019-01-16] MEDS ORDERED: DEXTROSE 5%-WATER - 50 ML IVPB ONE ×3 (02:37→17:44)
[2019-01-16] MEDS: PIPERACILLIN/TAZOB 2.25 GM 2.25 GM in DEXTROSE 5%-WATER - 50 ML IVPB SCH ×3 (02:46→17:46)
[2019-01-16] MEDS: INSULIN SLIDING SCALE (NOVOLOG) 1 VIAL SQ SCH ×4 (06:16→21:40)
[2019-01-16] MEDS: SEVELAMER CARBONATE 800 MG TAB (FP) PO SCH ×3 (08:10→17:41)
[2019-01-16] MEDS: AMINO ACIDS/PROTEIN HYDROLYS 30 ML LIQUID.PKT PO SCH ×2 (08:11→17:41)
[2019-01-16] MEDS ORDERED: PT OWN MED DRAWER 7, Y5N ONE (09:23)
[2019-01-16] MEDS ORDERED: EPOETIN ALFA 3,000 UNIT/1 ML ML IVPUSH ONE (09:30)
[2019-01-16] MEDS: MIDODRINE HCL 5 MG TABLET PO SCH (10:10)
[2019-01-16] MEDS: ESCITALOPRAM OXALATE 10 MG TABLET (FP) PO SCH (10:11)
[2019-01-16] MEDS: APIXABAN 5 MG TABLET PO SCH ×2 (10:11→21:39)
[2019-01-16] MEDS: VITAMIN B COMP W-C 1 EA TABLET PO SCH (10:11)
[2019-01-16] MEDS: ALLOPURINOL 100 MG TABLET (FP) PO SCH (10:11)
[2019-01-16] MEDS: COLLAGENASE CLOSTRIDIUM HIST. 30 GRAMS TUBE TP SCH (10:14)
[2019-01-16] MEDS: ZINC OXIDE 20% TOPICAL OINTMENT 30 GM TUBE TP SCH ×2 (10:14→21:40)
[2019-01-16 10:45] LABS: BASO % 0.7 % (0-2.0); EOS % 0.8 % (0-4.5); HEMATOCRIT 24.8 % (35.4-49); HEMOGLOBIN 7.8 GM/dL (11.7-16.9); LYMPH % 14.5 % (8-40); MCH 29.5 pg (25.7-33.7); MCHC 31.4 g/dl (32.0-35.9); MEAN CELL VOLUME 93.9 fl (80-96); MEAN PLT VOLUME 7.9 fl (7.5-11.1); MONO % 9.1 % (3.8-10.2); NEUT % 74.9 % (42.8-82.8); PLATELET COUNT 371 K/MM3 (134-434); RBC 2.64 M/mm3 (4.00-5.60); RDW 17.3 % (11.9-15.9)
--- NOTE | 2019-01-16 11:02 | PN ---
Progress Note, Physician History of Present Illness: Pt seen and examined at bedside. He is awake and alert. He is tolerating HD. - Current Medication List Current Medications: Active Medications Acetaminophen (Tylenol -) 650 mg PO Q6H PRN PRN Reason: PAIN Last Admin: 01/14/19 01:58 Dose: 650 mg Allopurinol (Zyloprim -) 100 mg PO DAILY [facility] Last Admin: 01/16/19 10:11 Dose: 100 mg Amino Acids (Prosource No Carb Liquid Pkt) 30 ml PO BID@0800,1730 [facility] Last Admin: 01/16/19 08:11 Dose: Not Given Apixaban (Eliquis -) 5 mg PO BID [facility] Last Admin: 01/16/19 10:11 Dose: 5 mg Atorvastatin Calcium (Lipitor -) 20 mg PO HS [facility] Last Admin: 01/15/19 22:35 Dose: 20 mg Collagenase (Santyl -) 1 applic TP DAILY [facility]; Protocol Last Admin: 01/16/19 10:14 Dose: 1 applic Docusate Sodium (Colace -) 100 mg PO BID PRN PRN Reason: CONSTIPATION Escitalopram Oxalate (Lexapro -) 10 mg PO DAILY [facility] Last Admin: 01/16/19 10:11 Dose: 10 mg Piperacillin Sod/Tazobactam (Sod 2.25 gm/ Dextrose) 50 mls @ 100 mls/hr IVPB Q8H-IV [facility]; Protocol Last Admin: 01/16/19 10:13 Dose: 100 mls/hr Sodium Chloride (Normal Saline -) 250 mls @ 3,000 mls/hr IV PRN PRN PRN Reason: Hypotension during Dialysis Stop: 01/16/19 15:13 Insulin Aspart (Novolog Vial Sliding Scale -) 1 vial SQ ACHS [facility]; Protocol Last Admin: 01/16/19 06:16 Dose: Not Given Midodrine (Proamatine -) 10 mg PO MoWeFr@1000 [facility] Last Admin: 01/16/19 10:10 Dose: 10 mg Multi-Ingredient Ointment (Zinc Oxide) 1 applic TP BID [facility] Last Admin: 01/16/19 10:14 Dose: 1 applic Multivit/Ca Carb/B Cmplx/FA/Prenat (Nephro-Mary -) 1 tablet PO DAILY [facility] Last Admin: 01/16/19 10:11 Dose: 1 tablet Senna (Senna -) 2 tab PO HS PRN PRN Reason: CONSTIPATION Sevelamer Carbonate (Renvela -) 1,600 mg PO TIDCM [facility] Last Admin: 01/16/19 08:10 Dose: 1,600 mg Tamsulosin HCl (Flomax -) 0.4 mg PO HS [facility] Last Admin: 01/15/19 22:35 Dose: 0.4 mg - Objective Vital Signs: Vital Signs Temperature 99.2 F 01/16/19 09:45 Pulse Rate 78 01/16/19 10:20 Respiratory Rate 18 01/16/19 10:20 Blood Pressure 93/61 01/16/19 10:20 O2 Sat by Pulse Oximetry (%) 96 01/16/19 08:30 Constitutional: Yes: Calm Eyes: Yes: Conjunctiva Clear HENT: Yes: Atraumatic Neck: Yes: Supple Cardiovascular: Yes: S1, S2 Respiratory: Yes: CTA Bilaterally Gastrointestinal: Yes: Soft Genitourinary: Yes: Incontinence Musculoskeletal: Yes: Muscle Weakness Edema: No Neurological: Yes: Confusion Labs: CBC, BMP 01/16/19 09:50 INR, PTT INR 1.56 (0.83-1.09) H 01/09/19 21:20 Problem List - Problems (1) CVA (cerebral vascular accident) Code(s): I63.9 - CEREBRAL INFARCTION, UNSPECIFIED (2) Gangrene of foot Code(s): I96 - GANGRENE, NOT ELSEWHERE CLASSIFIED (3) ESRD (end stage renal disease) Code(s): N18.6 - END STAGE RENAL DISEASE Assessment/Plan Current Medications Generic Name Dose Route Start Last Admin Trade Name Freq PRN Reason Stop Dose Admin Acetaminophen 650 mg 01/10/19 22:44 01/14/19 01:58 Tylenol - PO 650 mg Q6H PRN Administration PAIN Allopurinol 100 mg 01/10/19 10:00 01/16/19 10:11 Zyloprim - PO 100 mg DAILY [facility] Administration Amino Acids 30 ml 01/12/19 17:30 01/16/19 08:11 Prosource No Carb Liquid Pkt PO Not Given BID@0800,1730 [facility] Apixaban 5 mg 01/11/19 13:00 01/16/19 10:11 Eliquis - PO 5 mg BID [facility] Administration Atorvastatin Calcium 20 mg 01/10/19 22:00 01/15/19 22:35 Lipitor - PO 20 mg HS [facility] Administration Collagenase 1 applic 01/12/19 10:00 01/16/19 10:14 Santyl - TP 1 applic DAILY [facility] Administration Protocol Docusate Sodium 100 mg 01/09/19 23:56 Colace - PO BID PRN CONSTIPATION Escitalopram Oxalate 10 mg 01/10/19 10:00 01/16/19 10:11 Lexapro - PO 10 mg DAILY [facility] Administration Piperacillin Sod/Tazobactam 50 mls @ 100 mls/hr 01/10/19 14:30 01/16/19 10:13 Sod 2.25 gm/ Dextrose IVPB 100 mls/hr Q8H-IV [facility] Administration Protocol Sodium Chloride 250 mls @ 3,000 mls/hr 01/15/19 15:13 Normal Saline - IV 01/16/19 15:13 PRN PRN Hypotension during Dialysis Insulin Aspart 1 vial 01/10/19 07:00 01/16/19 06:16 Novolog Vial Sliding Scale - SQ Not Given ACHS [facility] Protocol Midodrine 10 mg 01/11/19 10:00 01/16/19 10:10 Proamatine - PO 10 mg MoWeFr@1000 [facility] Administration Multi-Ingredient Ointment 1 applic 01/10/19 10:00 01/16/19 10:14 Zinc Oxide TP 1 applic BID [facility] Administration Multivit/Ca Carb/B Cmplx/FA/Prenat 1 tablet 01/13/19 10:00 01/16/19 10:11 Nephro-Mary - PO 1 tablet DAILY [facility] Administration Senna 2 tab 01/09/19 23:56 Senna - PO HS PRN CONSTIPATION Sevelamer Carbonate 1,600 mg 01/10/19 08:00 01/16/19 08:10 Renvela - PO 1,600 mg TIDCM [facility] Administration Tamsulosin HCl 0.4 mg 01/10/19 22:00 01/15/19 22:35 Flomax - PO 0.4 mg HS [facility] Administration Impression 1. ESRD 2. gangrene 3. DM 4. hyperlipidemia 5. HTN 6. gout 7. proteinuria Plan - HD today - cont wound care - abx per primary team - has HD set up as outpt - renal diet
[2019-01-16 11:13] LABS: ALBUMIN 1.3 g/dl (3.4-5.0); ALK PHOS 140 U/L (45-117); ANION GAP 6 MMOL/L (8-16); BILIRUBIN,TOTAL 0.3 mg/dL (0.2-1); BLOOD UREA NITROGEN 41 mg/dL (7-18); CALCIUM 8.4 mg/dL (8.5-10.1); CHLORIDE 105 mmol/L (98-107); CO2 33 mmol/L (21-32); CREATININE 3.1 mg/dL (0.55-1.3); GLUCOSE,RANDOM 78 mg/dL (74-106); PHOSPHOROUS 1.7 mg/dL (2.5-4.9); POTASSIUM 3.3 mmol/L (3.5-5.1); SGOT/AST 7 U/L (15-37); SGPT/ALT 8 U/L (13-61); SODIUM 143 mmol/L (136-145); TOT PROT 6.3 g/dl (6.4-8.2)
--- NOTE | 2019-01-16 11:27 | PN ---
Progress Note, Physician History of Present Illness: pulmonary awake,no verbal on hemodialysis,comfortable,-resp distress - Current Medication List Current Medications: Active Medications Acetaminophen (Tylenol -) 650 mg PO Q6H PRN PRN Reason: PAIN Last Admin: 01/14/19 01:58 Dose: 650 mg Allopurinol (Zyloprim -) 100 mg PO DAILY [facility] Last Admin: 01/16/19 10:11 Dose: 100 mg Amino Acids (Prosource No Carb Liquid Pkt) 30 ml PO BID@0800,1730 [facility] Last Admin: 01/16/19 08:11 Dose: Not Given Apixaban (Eliquis -) 5 mg PO BID [facility] Last Admin: 01/16/19 10:11 Dose: 5 mg Atorvastatin Calcium (Lipitor -) 20 mg PO HS [facility] Last Admin: 01/15/19 22:35 Dose: 20 mg Collagenase (Santyl -) 1 applic TP DAILY [facility]; Protocol Last Admin: 01/16/19 10:14 Dose: 1 applic Docusate Sodium (Colace -) 100 mg PO BID PRN PRN Reason: CONSTIPATION Escitalopram Oxalate (Lexapro -) 10 mg PO DAILY [facility] Last Admin: 01/16/19 10:11 Dose: 10 mg Piperacillin Sod/Tazobactam (Sod 2.25 gm/ Dextrose) 50 mls @ 100 mls/hr IVPB Q8H-IV [facility]; Protocol Last Admin: 01/16/19 10:13 Dose: 100 mls/hr Sodium Chloride (Normal Saline -) 250 mls @ 3,000 mls/hr IV PRN PRN PRN Reason: Hypotension during Dialysis Stop: 01/16/19 15:13 Insulin Aspart (Novolog Vial Sliding Scale -) 1 vial SQ ACHS [facility]; Protocol Last Admin: 01/16/19 06:16 Dose: Not Given Midodrine (Proamatine -) 10 mg PO MoWeFr@1000 [facility] Last Admin: 01/16/19 10:10 Dose: 10 mg Multi-Ingredient Ointment (Zinc Oxide) 1 applic TP BID [facility] Last Admin: 01/16/19 10:14 Dose: 1 applic Multivit/Ca Carb/B Cmplx/FA/Prenat (Nephro-Mary -) 1 tablet PO DAILY [facility] Last Admin: 01/16/19 10:11 Dose: 1 tablet Senna (Senna -) 2 tab PO HS PRN PRN Reason: CONSTIPATION Sevelamer Carbonate (Renvela -) 1,600 mg PO TIDCM [facility] Last Admin: 01/16/19 08:10 Dose: 1,600 mg Tamsulosin HCl (Flomax -) 0.4 mg PO HS [facility] Last Admin: 01/15/19 22:35 Dose: 0.4 mg - Objective Vital Signs: Vital Signs Temperature 99.2 F 01/16/19 09:45 Pulse Rate 78 01/16/19 10:20 Respiratory Rate 18 01/16/19 10:20 Blood Pressure 93/61 01/16/19 10:20 O2 Sat by Pulse Oximetry (%) 96 01/16/19 08:30 Constitutional: Yes: Calm, Thin Eyes: Yes: WNL HENT: Yes: WNL Neck: Yes: WNL Cardiovascular: Yes: Pulse Irregular, S1, S2 Respiratory: Yes: Diminished Gastrointestinal: Yes: Normal Bowel Sounds, Soft Extremities: Yes: Other (contractures lower ext) Edema: No Labs: CBC, BMP 01/16/19 09:50 01/16/19 09:50 INR, PTT INR 1.56 (0.83-1.09) H 01/09/19 21:20 Assessment/Plan Problem List - Problems (1) COPD (chronic obstructive pulmonary disease) Code(s): J44.9 - CHRONIC OBSTRUCTIVE PULMONARY DISEASE, UNSPECIFIED (2) CVA (cerebral vascular accident) Code(s): I63.9 - CEREBRAL INFARCTION, UNSPECIFIED (3) Gangrene of foot Code(s): I96 - GANGRENE, NOT ELSEWHERE CLASSIFIED (4) HLD (hyperlipidemia) Code(s): E78.5 - HYPERLIPIDEMIA, UNSPECIFIED (5) PVD (peripheral vascular disease) Code(s): I73.9 - PERIPHERAL VASCULAR DISEASE, UNSPECIFIED (6) Anemia in chronic illness Code(s): D63.8 - ANEMIA IN OTHER CHRONIC DISEASES CLASSIFIED ELSEWHERE (7) CKD (chronic kidney disease) Code(s): N18.9 - CHRONIC KIDNEY DISEASE, UNSPECIFIED (8) Diabetes Code(s): E11.9 - TYPE 2 DIABETES MELLITUS WITHOUT COMPLICATIONS Qualifiers: Diabetes mellitus type: type 2 (9) ESRD (end stage renal disease) Code(s): N18.6 - END STAGE RENAL DISEASE (10) HTN (hypertension) Code(s): I10 - ESSENTIAL (PRIMARY) HYPERTENSION Qualifiers: Hypertension type: essential hypertension Qualified Code(s): I10 - Essential (primary) hypertension Assessment/Plan BD TX PRN O2 as needed VTE prophylaxis HD per Renal ABX per ID DR GODINEZ
--- NOTE | 2019-01-16 11:51 | PN ---
Progress Note, Physician - Current Medication List Current Medications: Active Medications Acetaminophen (Tylenol -) 650 mg PO Q6H PRN PRN Reason: PAIN Last Admin: 01/14/19 01:58 Dose: 650 mg Allopurinol (Zyloprim -) 100 mg PO DAILY [facility] Last Admin: 01/16/19 10:11 Dose: 100 mg Amino Acids (Prosource No Carb Liquid Pkt) 30 ml PO BID@0800,1730 [facility] Last Admin: 01/16/19 08:11 Dose: Not Given Apixaban (Eliquis -) 5 mg PO BID [facility] Last Admin: 01/16/19 10:11 Dose: 5 mg Atorvastatin Calcium (Lipitor -) 20 mg PO HS [facility] Last Admin: 01/15/19 22:35 Dose: 20 mg Collagenase (Santyl -) 1 applic TP DAILY [facility]; Protocol Last Admin: 01/16/19 10:14 Dose: 1 applic Docusate Sodium (Colace -) 100 mg PO BID PRN PRN Reason: CONSTIPATION Epoetin Jose (Epogen -) 4,000 unit IVPUSH ONCE ONE Stop: 01/16/19 12:01 Escitalopram Oxalate (Lexapro -) 10 mg PO DAILY [facility] Last Admin: 01/16/19 10:11 Dose: 10 mg Piperacillin Sod/Tazobactam (Sod 2.25 gm/ Dextrose) 50 mls @ 100 mls/hr IVPB Q8H-IV [facility]; Protocol Last Admin: 01/16/19 10:13 Dose: 100 mls/hr Sodium Chloride (Normal Saline -) 250 mls @ 3,000 mls/hr IV PRN PRN PRN Reason: Hypotension during Dialysis Stop: 01/16/19 15:13 Insulin Aspart (Novolog Vial Sliding Scale -) 1 vial SQ ACHS [facility]; Protocol Last Admin: 01/16/19 06:16 Dose: Not Given Midodrine (Proamatine -) 10 mg PO MoWeFr@1000 [facility] Last Admin: 01/16/19 10:10 Dose: 10 mg Multi-Ingredient Ointment (Zinc Oxide) 1 applic TP BID [facility] Last Admin: 01/16/19 10:14 Dose: 1 applic Multivit/Ca Carb/B Cmplx/FA/Prenat (Nephro-Mary -) 1 tablet PO DAILY [facility] Last Admin: 01/16/19 10:11 Dose: 1 tablet Senna (Senna -) 2 tab PO HS PRN PRN Reason: CONSTIPATION Sevelamer Carbonate (Renvela -) 1,600 mg PO TIDCM [facility] Last Admin: 01/16/19 08:10 Dose: 1,600 mg Tamsulosin HCl (Flomax -) 0.4 mg PO HS [facility] Last Admin: 01/15/19 22:35 Dose: 0.4 mg - Objective Vital Signs: Vital Signs Temperature 99.2 F 01/16/19 09:45 Pulse Rate 75 01/16/19 11:20 Respiratory Rate 18 01/16/19 11:20 Blood Pressure 109/65 01/16/19 11:20 O2 Sat by Pulse Oximetry (%) 96 01/16/19 08:30 Cardiovascular: Yes: S1, S2 Respiratory: Yes: Regular, CTA Bilaterally Gastrointestinal: Yes: Normal Bowel Sounds, Soft Labs: CBC, BMP 01/16/19 09:50 01/16/19 09:50 INR, PTT INR 1.56 (0.83-1.09) H 01/09/19 21:20 Assessment/Plan - Problems (1) Wound of foot Assessment/Plan: treat iv abx vancomycin and zosyn dr Mcneil holding off amputation ID on board--follow up Microbiology 01/09/19 21:50 Foot - Right Heel Gram Stain - Final 01/09/19 21:30 Foot - Left Heel Gram Stain - Final 01/09/19 21:50 Foot - Right Heel Wound Culture - Preliminary Presumptive Mrsa (Pbp2a Pos) 01/09/19 21:30 Foot - Left Heel Wound Culture - Preliminary Lactose Fermenting Neg Bacilli Proteus Species Staphylococcus Latex Coag Pos isolation resume diet resume eliquis Code(s): S91.309A - UNSPECIFIED OPEN WOUND, UNSPECIFIED FOOT, INITIAL ENCOUNTER (2) CKD (chronic kidney disease) Assessment/Plan: renal on board Code(s): N18.9 - CHRONIC KIDNEY DISEASE, UNSPECIFIED (3) A-fib Assessment/Plan: eliquis Code(s): I48.91 - UNSPECIFIED ATRIAL FIBRILLATION
[2019-01-16] MEDS ORDERED: EPOETIN ALFA 2,000 UNIT/1 ML VIAL IVPUSH ONE (12:00)
[2019-01-16 19:27] VITALS: BMI 25.2
[2019-01-16] MEDS: TAMSULOSIN HCL 0.4 MG CAP PO SCH (21:39)
[2019-01-16] MEDS: ATORVASTATIN CA 20 MG TABLET (FP) PO SCH (21:42)
[2019-01-17] MEDS ORDERED: PIPERACILLIN/TAZOBACTAM 2.25 GM VIAL IVPB ONE ×2 (01:34→07:46)
[2019-01-17] MEDS ORDERED: DEXTROSE 5%-WATER - 50 ML IVPB ONE ×2 (01:34→07:47)
[2019-01-17] MEDS: PIPERACILLIN/TAZOB 2.25 GM 2.25 GM in DEXTROSE 5%-WATER - 50 ML IVPB SCH ×2 (01:50→09:34)
[2019-01-17] MEDS: INSULIN SLIDING SCALE (NOVOLOG) 1 VIAL SQ SCH ×3 (06:06→17:04)
[2019-01-17] MEDS: SEVELAMER CARBONATE 800 MG TAB (FP) PO SCH ×3 (08:59→17:02)
[2019-01-17] MEDS: AMINO ACIDS/PROTEIN HYDROLYS 30 ML LIQUID.PKT PO SCH ×2 (09:00→17:02)
[2019-01-17] MEDS: ESCITALOPRAM OXALATE 10 MG TABLET (FP) PO SCH (09:34)
[2019-01-17] MEDS: APIXABAN 5 MG TABLET PO SCH (09:34)
[2019-01-17] MEDS: ALLOPURINOL 100 MG TABLET (FP) PO SCH (09:34)
[2019-01-17] MEDS: VITAMIN B COMP W-C 1 EA TABLET PO SCH (09:34)
[2019-01-17] MEDS: ZINC OXIDE 20% TOPICAL OINTMENT 30 GM TUBE TP SCH (09:36)
[2019-01-17] MEDS: COLLAGENASE CLOSTRIDIUM HIST. 30 GRAMS TUBE TP SCH (09:37)
[2019-01-17 13:04] LABS: EOS % 0.7 % (0-4.5); HEMATOCRIT 26.5 % (35.4-49); HEMOGLOBIN 8.4 GM/dL (11.7-16.9); LYMPH % 16.5 % (8-40); MCH 29.5 pg (25.7-33.7); MCHC 31.7 g/dl (32.0-35.9); MEAN CELL VOLUME 93.2 fl (80-96); MEAN PLT VOLUME 7.5 fl (7.5-11.1); MONO % 8.7 % (3.8-10.2); NEUT % 73.1 % (42.8-82.8); PLATELET COUNT 402 K/MM3 (134-434); RBC 2.84 M/mm3 (4.00-5.60); RDW 17.5 % (11.9-15.9); WHITE BLOOD COUNT 10.8 K/mm3 (4.0-10.0)
[2019-01-17] MEDS ORDERED: SODIUM CHLORIDE 250 ML IV PRN (13:08)
--- NOTE | 2019-01-17 13:08 | PN ---
Progress Note, Physician History of Present Illness: Pt seen and examined at bedside. He appears comfortable. He denies shortness of breath. - Current Medication List Current Medications: Active Medications Acetaminophen (Tylenol -) 650 mg PO Q6H PRN PRN Reason: PAIN Last Admin: 01/14/19 01:58 Dose: 650 mg Allopurinol (Zyloprim -) 100 mg PO DAILY [facility] Last Admin: 01/17/19 09:34 Dose: 100 mg Amino Acids (Prosource No Carb Liquid Pkt) 30 ml PO BID@0800,1730 [facility] Last Admin: 01/17/19 09:00 Dose: 30 ml Apixaban (Eliquis -) 5 mg PO BID [facility] Last Admin: 01/17/19 09:34 Dose: 5 mg Atorvastatin Calcium (Lipitor -) 20 mg PO HS [facility] Last Admin: 01/16/19 21:42 Dose: 20 mg Collagenase (Santyl -) 1 applic TP DAILY [facility]; Protocol Last Admin: 01/17/19 09:37 Dose: 1 applic Docusate Sodium (Colace -) 100 mg PO BID PRN PRN Reason: CONSTIPATION Escitalopram Oxalate (Lexapro -) 10 mg PO DAILY [facility] Last Admin: 01/17/19 09:34 Dose: 10 mg Piperacillin Sod/Tazobactam (Sod 2.25 gm/ Dextrose) 50 mls @ 100 mls/hr IVPB Q8H-IV [facility]; Protocol Last Admin: 01/17/19 09:34 Dose: 100 mls/hr Insulin Aspart (Novolog Vial Sliding Scale -) 1 vial SQ ACHS [facility]; Protocol Last Admin: 01/17/19 12:02 Dose: Not Given Midodrine (Proamatine -) 10 mg PO MoWeFr@1000 [facility] Last Admin: 01/16/19 10:10 Dose: 10 mg Multi-Ingredient Ointment (Zinc Oxide) 1 applic TP BID [facility] Last Admin: 01/17/19 09:36 Dose: 1 applic Multivit/Ca Carb/B Cmplx/FA/Prenat (Nephro-Mary -) 1 tablet PO DAILY [facility] Last Admin: 01/17/19 09:34 Dose: 1 tablet Senna (Senna -) 2 tab PO HS PRN PRN Reason: CONSTIPATION Sevelamer Carbonate (Renvela -) 1,600 mg PO TIDCM [facility] Last Admin: 01/17/19 12:03 Dose: Not Given Tamsulosin HCl (Flomax -) 0.4 mg PO HS [facility] Last Admin: 01/16/19 21:39 Dose: 0.4 mg - Objective Vital Signs: Vital Signs Temperature 98.6 F 01/17/19 08:30 Pulse Rate 85 01/17/19 08:30 Respiratory Rate 20 01/17/19 08:34 Blood Pressure 118/63 01/17/19 08:30 O2 Sat by Pulse Oximetry (%) 95 01/17/19 08:34 Constitutional: Yes: Calm Eyes: Yes: Conjunctiva Clear HENT: Yes: Atraumatic Neck: Yes: Supple Cardiovascular: Yes: S1, S2 Respiratory: Yes: CTA Bilaterally Gastrointestinal: Yes: Soft Genitourinary: Yes: Incontinence Musculoskeletal: Yes: Muscle Weakness Edema: No Wound/Incision: Yes: Dressing Dry and Intact Neurological: Yes: Confusion Labs: CBC, BMP 01/16/19 09:50 INR, PTT INR 1.56 (0.83-1.09) H 01/09/19 21:20 Problem List - Problems (1) CVA (cerebral vascular accident) Code(s): I63.9 - CEREBRAL INFARCTION, UNSPECIFIED (2) Gangrene of foot Code(s): I96 - GANGRENE, NOT ELSEWHERE CLASSIFIED (3) ESRD (end stage renal disease) Code(s): N18.6 - END STAGE RENAL DISEASE Assessment/Plan Current Medications Generic Name Dose Route Start Last Admin Trade Name Freq PRN Reason Stop Dose Admin Acetaminophen 650 mg 01/10/19 22:44 01/14/19 01:58 Tylenol - PO 650 mg Q6H PRN Administration PAIN Allopurinol 100 mg 01/10/19 10:00 01/17/19 09:34 Zyloprim - PO 100 mg DAILY [facility] Administration Amino Acids 30 ml 01/12/19 17:30 01/17/19 09:00 Prosource No Carb Liquid Pkt PO 30 ml BID@0800,1730 [facility] Administration Apixaban 5 mg 01/11/19 13:00 01/17/19 09:34 Eliquis - PO 5 mg BID [facility] Administration Atorvastatin Calcium 20 mg 01/10/19 22:00 01/16/19 21:42 Lipitor - PO 20 mg HS [facility] Administration Collagenase 1 applic 01/12/19 10:00 01/17/19 09:37 Santyl - TP 1 applic DAILY [facility] Administration Protocol Docusate Sodium 100 mg 01/09/19 23:56 Colace - PO BID PRN CONSTIPATION Escitalopram Oxalate 10 mg 01/10/19 10:00 01/17/19 09:34 Lexapro - PO 10 mg DAILY [facility] Administration Piperacillin Sod/Tazobactam 50 mls @ 100 mls/hr 01/10/19 14:30 01/17/19 09:34 Sod 2.25 gm/ Dextrose IVPB 100 mls/hr Q8H-IV [facility] Administration Protocol Insulin Aspart 1 vial 01/10/19 07:00 01/17/19 12:02 Novolog Vial Sliding Scale - SQ Not Given ACHS [facility] Protocol Midodrine 10 mg 01/11/19 10:00 01/16/19 10:10 Proamatine - PO 10 mg MoWeFr@1000 [facility] Administration Multi-Ingredient Ointment 1 applic 01/10/19 10:00 01/17/19 09:36 Zinc Oxide TP 1 applic BID [facility] Administration Multivit/Ca Carb/B Cmplx/FA/Prenat 1 tablet 01/13/19 10:00 01/17/19 09:34 Nephro-Mary - PO 1 tablet DAILY [facility] Administration Senna 2 tab 01/09/19 23:56 Senna - PO HS PRN CONSTIPATION Sevelamer Carbonate 1,600 mg 01/10/19 08:00 01/17/19 12:03 Renvela - PO Not Given TIDCM [facility] Tamsulosin HCl 0.4 mg 01/10/19 22:00 01/16/19 21:39 Flomax - PO 0.4 mg HS [facility] Administration Impression 1. ESRD 2. gangrene 3. DM 4. hyperlipidemia 5. HTN 6. gout 7. proteinuria Plan - HD in am - cont epogen - monitor hg - cont wound care - abx per primary team - has HD set up as outpt - renal diet
--- NOTE | 2019-01-17 13:19 | PN ---
Progress Note (short form) - Note Progress Note: PULMONARY Not speaking but shakes and nods head. Denies shortness of breath or chest pain. Vital Signs Period Temp Pulse Resp BP Sys/Zamorano Pulse Ox Last 24 Hr 97.7 F-98.9 F 79-88 20-20 103-131/53-68 95-95 Gen: NAD at rest Heart: RRR Lung: decreased breath sounds at the bases Abd: soft, nontender Ext: no edema CBC, BMP 01/17/19 12:52 01/16/19 09:50 Active Medications Acetaminophen (Tylenol -) 650 mg PO Q6H PRN PRN Reason: PAIN Last Admin: 01/14/19 01:58 Dose: 650 mg Allopurinol (Zyloprim -) 100 mg PO DAILY [facility] Last Admin: 01/17/19 09:34 Dose: 100 mg Amino Acids (Prosource No Carb Liquid Pkt) 30 ml PO BID@0800,1730 [facility] Last Admin: 01/17/19 09:00 Dose: 30 ml Apixaban (Eliquis -) 5 mg PO BID [facility] Last Admin: 01/17/19 09:34 Dose: 5 mg Atorvastatin Calcium (Lipitor -) 20 mg PO HS [facility] Last Admin: 01/16/19 21:42 Dose: 20 mg Collagenase (Santyl -) 1 applic TP DAILY [facility]; Protocol Last Admin: 01/17/19 09:37 Dose: 1 applic Docusate Sodium (Colace -) 100 mg PO BID PRN PRN Reason: CONSTIPATION Epoetin Jose (Epogen -) 10,000 unit IVPUSH ONCE ONE Stop: 01/18/19 13:09 Escitalopram Oxalate (Lexapro -) 10 mg PO DAILY [facility] Last Admin: 01/17/19 09:34 Dose: 10 mg Piperacillin Sod/Tazobactam (Sod 2.25 gm/ Dextrose) 50 mls @ 100 mls/hr IVPB Q8H-IV [facility]; Protocol Last Admin: 01/17/19 09:34 Dose: 100 mls/hr Sodium Chloride (Normal Saline -) 250 mls @ 3,000 mls/hr IV PRN PRN PRN Reason: Hypotension during Dialysis Stop: 01/18/19 13:08 Insulin Aspart (Novolog Vial Sliding Scale -) 1 vial SQ ACHS [facility]; Protocol Last Admin: 01/17/19 12:02 Dose: Not Given Midodrine (Proamatine -) 10 mg PO MoWeFr@1000 [facility] Last Admin: 01/16/19 10:10 Dose: 10 mg Multi-Ingredient Ointment (Zinc Oxide) 1 applic TP BID [facility] Last Admin: 01/17/19 09:36 Dose: 1 applic Multivit/Ca Carb/B Cmplx/FA/Prenat (Nephro-Mary -) 1 tablet PO DAILY [facility] Last Admin: 01/17/19 09:34 Dose: 1 tablet Senna (Senna -) 2 tab PO PRN PRN Reason: CONSTIPATION Sevelamer Carbonate (Renvela -) 1,600 mg PO TIDCM [facility] Last Admin: 01/17/19 12:03 Dose: Not Given Tamsulosin HCl (Flomax -) 0.4 mg PO [facility] Last Admin: 01/16/19 21:39 Dose: 0.4 mg A/P ESRD on HD CAD HTN DM Hyperlipidemia R Foot Gangrene - continue antibiotics - wound care - HD per renal - O2 to keep SpO2 >90% - aspiration precautions - continue anticoagulation
--- NOTE | 2019-01-17 14:50 | PN ---
Progress Note, Physician Chief Complaint: patient seen and examined aware of the event yesterday regarding blood transfusion daughter refused to consent says her father can make decisions dr gómez consulted repeat cbc dc tele - Current Medication List Current Medications: Active Medications Acetaminophen (Tylenol -) 650 mg PO Q6H PRN PRN Reason: PAIN Last Admin: 01/14/19 01:58 Dose: 650 mg Allopurinol (Zyloprim -) 100 mg PO DAILY [facility] Last Admin: 01/17/19 09:34 Dose: 100 mg Amino Acids (Prosource No Carb Liquid Pkt) 30 ml PO BID@0800,1730 [facility] Last Admin: 01/17/19 09:00 Dose: 30 ml Apixaban (Eliquis -) 5 mg PO BID [facility] Last Admin: 01/17/19 09:34 Dose: 5 mg Atorvastatin Calcium (Lipitor -) 20 mg PO HS [facility] Last Admin: 01/16/19 21:42 Dose: 20 mg Collagenase (Santyl -) 1 applic TP DAILY [facility]; Protocol Last Admin: 01/17/19 09:37 Dose: 1 applic Docusate Sodium (Colace -) 100 mg PO BID PRN PRN Reason: CONSTIPATION Epoetin Jose (Epogen -) 10,000 unit IVPUSH ONCE ONE Stop: 01/18/19 13:09 Escitalopram Oxalate (Lexapro -) 10 mg PO DAILY [facility] Last Admin: 01/17/19 09:34 Dose: 10 mg Sodium Chloride (Normal Saline -) 250 mls @ 3,000 mls/hr IV PRN PRN PRN Reason: Hypotension during Dialysis Stop: 01/18/19 13:08 Insulin Aspart (Novolog Vial Sliding Scale -) 1 vial SQ ACHS [facility]; Protocol Last Admin: 01/17/19 12:02 Dose: Not Given Midodrine (Proamatine -) 10 mg PO MoWeFr@1000 [facility] Last Admin: 01/16/19 10:10 Dose: 10 mg Multi-Ingredient Ointment (Zinc Oxide) 1 applic TP BID [facility] Last Admin: 01/17/19 09:36 Dose: 1 applic Multivit/Ca Carb/B Cmplx/FA/Prenat (Nephro-Mray -) 1 tablet PO DAILY [facility] Last Admin: 01/17/19 09:34 Dose: 1 tablet Senna (Senna -) 2 tab PO HS PRN PRN Reason: CONSTIPATION Sevelamer Carbonate (Renvela -) 1,600 mg PO TIDCM [facility] Last Admin: 01/17/19 12:03 Dose: Not Given Tamsulosin HCl (Flomax -) 0.4 mg PO HS [facility] Last Admin: 01/16/19 21:39 Dose: 0.4 mg - Objective Vital Signs: Vital Signs Temperature 98.6 F 01/17/19 08:30 Pulse Rate 85 01/17/19 08:30 Respiratory Rate 20 01/17/19 08:34 Blood Pressure 118/63 01/17/19 08:30 O2 Sat by Pulse Oximetry (%) 95 01/17/19 08:34 Constitutional: Yes: Calm Cardiovascular: Yes: Regular Rate and Rhythm, S1, S2 Respiratory: Yes: Diminished Gastrointestinal: Yes: Normal Bowel Sounds, Soft Extremities: Yes: Other (contracted) Edema: No Neurological: Yes: Other (foot wound) Labs: CBC, BMP 01/17/19 12:52 01/16/19 09:50 INR, PTT INR 1.56 (0.83-1.09) H 01/09/19 21:20 Problem List - Problems (1) Anemia Assessment/Plan: dr gómez consult for capacity to make decision prbc not given bc of no consent from daughter who is hcp and refused to give consent patient has iv access Code(s): D64.9 - ANEMIA, UNSPECIFIED (2) Wound of foot Assessment/Plan: on zosyn Microbiology 01/09/19 21:50 Foot - Right Heel Gram Stain - Final 01/09/19 21:30 Foot - Left Heel Gram Stain - Final 01/09/19 21:50 Foot - Right Heel Wound Culture - Preliminary Presumptive Mrsa (Pbp2a Pos) 01/09/19 21:30 Foot - Left Heel Wound Culture - Preliminary Lactose Fermenting Neg Bacilli Proteus Species Staphylococcus Latex Coag Pos isolation resume diet resume eliquis Microbiology 01/09/19 21:50 Foot - Right Heel Gram Stain - Final 01/09/19 21:50 Foot - Right Heel Wound Culture - Final Mr S Aureus 01/09/19 21:30 Foot - Left Heel Gram Stain - Final 01/09/19 21:30 Foot - Left Heel Wound Culture - Preliminary Escherichia Coli Esbl Pulvi Mixer Operator Proteus Mirabilis Mr S Aureus Group D Strep Or Entero Coccus Code(s): S91.309A - UNSPECIFIED OPEN WOUND, UNSPECIFIED FOOT, INITIAL ENCOUNTER (3) CKD (chronic kidney disease) Assessment/Plan: renal on board on HD Code(s): N18.9 - CHRONIC KIDNEY DISEASE, UNSPECIFIED (4) A-fib Assessment/Plan: eliquis Code(s): I48.91 - UNSPECIFIED ATRIAL FIBRILLATION
[2019-01-17 14:56] VITALS: TEMP 98
--- NOTE | 2019-01-17 15:43 | CON.PSY ---
Psychiatry Consult Chief Complaint: Patient with a history of cva, DM and otrher chronic medical conditions admitted for amputation. Patient seen for Psych eval to determine capacity to make decisions at this time. Symptoms: reports: Memory Impairment, Disorganized/Disruptive Thoughts - Previous Psychiatric Treatment Outpatient: None Inpatient: None - Previous Substance Abuse Treatment Outpatient: None Inpatient: None - Current Medications Current Medications: Active Medications Acetaminophen (Tylenol -) 650 mg PO Q6H PRN PRN Reason: PAIN Last Admin: 01/14/19 01:58 Dose: 650 mg Allopurinol (Zyloprim -) 100 mg PO DAILY [facility] Last Admin: 01/17/19 09:34 Dose: 100 mg Amino Acids (Prosource No Carb Liquid Pkt) 30 ml PO BID@0800,1730 [facility] Last Admin: 01/17/19 09:00 Dose: 30 ml Apixaban (Eliquis -) 5 mg PO BID [facility] Last Admin: 01/17/19 09:34 Dose: 5 mg Atorvastatin Calcium (Lipitor -) 20 mg PO HS [facility] Last Admin: 01/16/19 21:42 Dose: 20 mg Collagenase (Santyl -) 1 applic TP DAILY [facility]; Protocol Last Admin: 01/17/19 09:37 Dose: 1 applic Docusate Sodium (Colace -) 100 mg PO BID PRN PRN Reason: CONSTIPATION Epoetin Jose (Epogen -) 10,000 unit IVPUSH ONCE ONE Stop: 01/18/19 13:09 Escitalopram Oxalate (Lexapro -) 10 mg PO DAILY [facility] Last Admin: 01/17/19 09:34 Dose: 10 mg Sodium Chloride (Normal Saline -) 250 mls @ 3,000 mls/hr IV PRN PRN PRN Reason: Hypotension during Dialysis Stop: 01/18/19 13:08 Insulin Aspart (Novolog Vial Sliding Scale -) 1 vial SQ ACHS [facility]; Protocol Last Admin: 01/17/19 12:02 Dose: Not Given Midodrine (Proamatine -) 10 mg PO MoWeFr@1000 [facility] Last Admin: 01/16/19 10:10 Dose: 10 mg Multi-Ingredient Ointment (Zinc Oxide) 1 applic TP BID [facility] Last Admin: 01/17/19 09:36 Dose: 1 applic Multivit/Ca Carb/B Cmplx/FA/Prenat (Nephro-Mary -) 1 tablet PO DAILY [facility] Last Admin: 01/17/19 09:34 Dose: 1 tablet Senna (Senna -) 2 tab PO HS PRN PRN Reason: CONSTIPATION Sevelamer Carbonate (Renvela -) 1,600 mg PO TIDCM [facility] Last Admin: 01/17/19 12:03 Dose: Not Given Tamsulosin HCl (Flomax -) 0.4 mg PO HS [facility] Last Admin: 01/16/19 21:39 Dose: 0.4 mg - Allergies Allergies: Allergies Allergy/AdvReac Type Severity Reaction Status Date / Time watermelon Allergy Unknown Verified 10/29/18 06:33 melon Allergy Verified 10/29/18 06:33 No Known Drug Allergies Allergy Verified 10/29/18 06:34 - Current Living Status Usual Living Arrangement: Group Home - Current Mental Status Evaluation Appearance: Disheveled Attitude: Guarded - Affect Affect: Flat Appropriateness: Not Appropriate - Mood Mood: Other - Speech/Language Expressive: Delayed - Psychomotor Activity Psychomotor Activity: Slowed - Thought Process Thought Process: Circumstantial - Thought Content Hallucinations: Absent Delusions: Absent - Self Perception Self Perception: Depersonalization - Cognition Attention: Diminished Memory, Immediate Recall: Impaired Memory, Short Term: 0/3 Memory, Remote with Promptin/3 - Concentration Serial Sevens Intact: No Simple Calculations Intact: No - Abstraction Proverb Interpretation: [place] Judgement: Moderately Impaired - Insight Insight: Impaired - Impulse Control Impulse Control: Severly Impaired - Suicidal Ideation Suicidal Ideation: No - Homicidal Ideation Homicidal Ideation: No Assessment/Plan 1) Patient lacks mental capacity to make informed medical decisions at this time due to severe cognitive impairment and inability to comprehend and communicate.
--- NOTE | 2019-01-17 15:52 | PN ---
Progress Note, Physician History of Present Illness: AWAKE NO FEVER/ CHILLS AFEBRILE WBC WNL BC (-) WOUND C/S MIXED, INCLUDING MRSA/ ESBL - Current Medication List Current Medications: Active Medications Acetaminophen (Tylenol -) 650 mg PO Q6H PRN PRN Reason: PAIN Last Admin: 01/14/19 01:58 Dose: 650 mg Allopurinol (Zyloprim -) 100 mg PO DAILY [facility] Last Admin: 01/17/19 09:34 Dose: 100 mg Amino Acids (Prosource No Carb Liquid Pkt) 30 ml PO BID@0800,1730 [facility] Last Admin: 01/17/19 09:00 Dose: 30 ml Apixaban (Eliquis -) 5 mg PO BID [facility] Last Admin: 01/17/19 09:34 Dose: 5 mg Atorvastatin Calcium (Lipitor -) 20 mg PO HS [facility] Last Admin: 01/16/19 21:42 Dose: 20 mg Collagenase (Santyl -) 1 applic TP DAILY [facility]; Protocol Last Admin: 01/17/19 09:37 Dose: 1 applic Docusate Sodium (Colace -) 100 mg PO BID PRN PRN Reason: CONSTIPATION Epoetin Jose (Epogen -) 10,000 unit IVPUSH ONCE ONE Stop: 01/18/19 13:09 Escitalopram Oxalate (Lexapro -) 10 mg PO DAILY [facility] Last Admin: 01/17/19 09:34 Dose: 10 mg Sodium Chloride (Normal Saline -) 250 mls @ 3,000 mls/hr IV PRN PRN PRN Reason: Hypotension during Dialysis Stop: 01/18/19 13:08 Insulin Aspart (Novolog Vial Sliding Scale -) 1 vial SQ ACHS [facility]; Protocol Last Admin: 01/17/19 12:02 Dose: Not Given Midodrine (Proamatine -) 10 mg PO MoWeFr@1000 [facility] Last Admin: 01/16/19 10:10 Dose: 10 mg Multi-Ingredient Ointment (Zinc Oxide) 1 applic TP BID [facility] Last Admin: 01/17/19 09:36 Dose: 1 applic Multivit/Ca Carb/B Cmplx/FA/Prenat (Nephro-Mary -) 1 tablet PO DAILY [facility] Last Admin: 01/17/19 09:34 Dose: 1 tablet Senna (Senna -) 2 tab PO HS PRN PRN Reason: CONSTIPATION Sevelamer Carbonate (Renvela -) 1,600 mg PO TIDCM [facility] Last Admin: 01/17/19 12:03 Dose: Not Given Tamsulosin HCl (Flomax -) 0.4 mg PO HS [facility] Last Admin: 01/16/19 21:39 Dose: 0.4 mg - Objective Vital Signs: Vital Signs Temperature 98.0 F 01/17/19 14:54 Pulse Rate 83 01/17/19 14:54 Respiratory Rate 20 01/17/19 14:54 Blood Pressure 135/39 L 01/17/19 14:54 O2 Sat by Pulse Oximetry (%) 95 01/17/19 08:34 Constitutional: Yes: No Distress Cardiovascular: Yes: Regular Rate and Rhythm, S1, S2 Respiratory: Yes: CTA Bilaterally Gastrointestinal: Yes: Normal Bowel Sounds, Soft. No: Tenderness Extremities: Yes: Other (+ FOOT ULCERS NO DRAINAGE) Labs: CBC, BMP 01/17/19 12:52 01/16/19 09:50 INR, PTT INR 1.56 (0.83-1.09) H 01/09/19 21:20 Assessment/Plan INFECTED FOOT ULCERS + WOUND C/S MRSA/ ESBL ESRD DAY 9 IV ANTIBIOTICS SUBSTITUTE ZYVOX 600MG PO BID X 7D LOCAL WOUND CARE
--- NOTE | 2019-01-17 16:27 | DS ---
Physical Examination Vital Signs: Vital Signs Temperature 98.0 F 01/17/19 14:54 Pulse Rate 83 01/17/19 14:54 Respiratory Rate 20 01/17/19 14:54 Blood Pressure 135/39 L 01/17/19 14:54 O2 Sat by Pulse Oximetry (%) 95 01/17/19 08:34 Constitutional: Yes: Calm Cardiovascular: Yes: Regular Rate and Rhythm, S1, S2 Respiratory: Yes: Diminished Gastrointestinal: Yes: Normal Bowel Sounds, Soft Musculoskeletal: Yes: Other (contracted) Edema: No Wound/Incision: Yes: Other (foot wound) Labs: CBC, BMP 01/17/19 12:52 01/16/19 09:50 Discharge Summary Reason For Visit: SEPSIS,GANGRENE OF FOOT Current Active Problems Anemia (Acute) COPD (chronic obstructive pulmonary disease) (Acute) CVA (cerebral vascular accident) (Acute) Gangrene of foot (Acute) HLD (hyperlipidemia) (Acute) PVD (peripheral vascular disease) (Acute) Preop cardiovascular exam (Acute) Sepsis (Acute) Wound of foot (Acute) Hospital Course: PCP: Rangel Morel - Admission Chief Complaint: Gangrene Foot History of Present Illness: This is a 73 y/o man from [facility] with a PMHx of Dementia, PVD, ESRD (M,W,F) , HLD, CVA, DM, COPD with bilateral foot and heel wounds. Who presents to the ED for admission, after wound care eval by Dr. Crandall for right foot amputation. Documentation from [facility] states patient with necrosis/gangrene of right foot, despite MRSA medication treatment failure. Patient unable to provide history d/t baseline dementia, and slightly non verbal/non communicative at baseline. Recently admitted [facility] 11/2017 MRSA bacteremia, PNA, Resp Failure, Endocarditis. ED course noted for: (1) CRP 18.1 (2) ESR 97 patient in telemetry no plan for amputation iv abx now change to iv vancomcyin 500mg with HD for 10 days HD and epogen Condition: Stable - Instructions Diet, Activity, Other Instructions: vancomcyin 500mg iv with each HD for 10 dose Disposition: HALF-WAY FACILITY - Home Medications Comprehensive Discharge Medication List: Ambulatory Orders Albuterol 2.5/Ipratropium 0.5 [Duoneb -] 1 amp NEB Q6H PRN #0 amp 07/12/17 Allopurinol [Zyloprim -] 100 mg PO DAILY tablet 07/12/17 Atorvastatin Ca [Lipitor] 20 mg PO HS tablet 07/12/17 Clopidogrel Bisulfate [Plavix -] 75 mg PO DAILY tablet 07/12/17 Collagenase Clostridium Hist. [Santyl -] 250 unit TP DAILY 08/31/18 Lisinopril 10 mg PO DAILY 08/31/18 Collagenase Clostridium Hist. [Santyl -] 1 applic TP DAILY tube 09/06/18 Albuterol Sulfate [Proair Hfa] 2 puff IH Q6H PRN 10/29/18 Escitalopram Oxalate [Lexapro -] 10 mg PO DAILY 10/29/18 Folic Acid/Vit B Complex and C [Dialyvite Tablet] 1 each PO DAILY 10/29/18 Insulin Lispro [Humalog Kwikpen U-100] 0 unit SQ ACHS 10/29/18 Midodrine HCl 10 mg PO MOWEFR 10/29/18 Sevelamer Carbonate [Renvela -] 1,600 mg PO TID 10/29/18 Tamsulosin HCl [Flomax] 0.4 mg PO HS 10/29/18 Zinc Oxide 20% Topical Oint 454 gm NR BID 10/29/18 Ceftaroline Fosamil Acetate [Teflaro (Restricted To Id)] 200 mg IVPB BID vial 11/17/18 Insulin Sliding Scale [Novolog Vial Sliding Scale -] 1 vial SQ TIDAC #1 vial Apixaban [Eliquis -] 5 mg PO BID #30 tablet MDD 2 11/19/18 Vancomycin 1 Gram (Pre-Docked) [Vancomycin (Pre-Docked)] 1,000 mg IVPB Q2D #14 bag 11/19/18
--- NOTE | 2019-01-17 16:35 | PN ---
Progress Note (short form) - Note Progress Note: no zyvox as interacts with [employer]Tapo Problem List - Problems (1) Anemia Code(s): D64.9 - ANEMIA, UNSPECIFIED (2) Wound of foot Code(s): S91.309A - UNSPECIFIED OPEN WOUND, UNSPECIFIED FOOT, INITIAL ENCOUNTER (3) CKD (chronic kidney disease) Code(s): N18.9 - CHRONIC KIDNEY DISEASE, UNSPECIFIED (4) A-fib Code(s): I48.91 - UNSPECIFIED ATRIAL FIBRILLATION
[2019-01-17] MEDS ORDERED: VANCOMYCIN 1 GRAM (PRE-DOCKED) 1,000 MG/250 ML BAG IVPB ONE (16:45)
[2019-01-17] MEDS ORDERED: VANCOMYCIN 1 GM PREMIX - 1 GM/200 ML BAG IVPB ONE (17:00)
[2019-01-17] MEDS ORDERED: PIPERACILLIN/TAZOB 3.375 GM 3.375 GM in DEXTROSE 5%-WATER - 50 ML IVPB SCH (18:00)
[2019-01-17 19:54] VITALS: BP 116/60; PULSE 84
[2019-01-18] MEDS ORDERED: EPOETIN ALFA 2,000 UNIT/1 ML VIAL IVPUSH ONE (13:08)
== END 2019-01-17 19:07 | DRG 299 ==
LOC: JER 20:48 → SUPCPDRO 20:48 → JERBED 22:24 → J4W 01-10 02:27
PROVIDERS: ADMIT Family Medicine; ATTEND Family Medicine
PROC: 5A1D70Z Performance of Urinary Filtration, Intermittent, Less than 6 Hours Per Day (ICD-10-PCS; principal; 2019-01-11)
DX: E11.52 Type 2 diabetes mellitus with diabetic peripheral angiopathy with gangrene (principal); L89.213 Pressure ulcer of right hip, stage 3; N18.6 End stage renal disease; A41.9 Sepsis, unspecified organism; I96 Gangrene, not elsewhere classified; I13.2 Hypertensive heart and chronic kidney disease with heart failure and with stage 5 chronic kidney disease, or end stage renal disease; M86.9 Osteomyelitis, unspecified; R64 Cachexia; E46 Unspecified protein-calorie malnutrition; L89.222 Pressure ulcer of left hip, stage 2; E11.22 Type 2 diabetes mellitus with diabetic chronic kidney disease; E11.621 Type 2 diabetes mellitus with foot ulcer; E11.69 Type 2 diabetes mellitus with other specified complication; E87.6 Hypokalemia; F03.90 Unspecified dementia, unspecified severity, without behavioral disturbance, psychotic disturbance, mood disturbance, and anxiety; Z99.2 Dependence on renal dialysis; Z79.01 Long term (current) use of anticoagulants; I48.91 Unspecified atrial fibrillation; Z86.73 Personal history of transient ischemic attack (TIA), and cerebral infarction without residual deficits; J44.9 Chronic obstructive pulmonary disease, unspecified; I50.9 Heart failure, unspecified; D64.9 Anemia, unspecified; E86.1 Hypovolemia; I25.10 Atherosclerotic heart disease of native coronary artery without angina pectoris; Z68.25 Body mass index [BMI] 25.0-25.9, adult; Z79.4 Long term (current) use of insulin; M10.9 Gout, unspecified; Z91.14 Patient's other noncompliance with medication regimen; I87.8 Other specified disorders of veins; B96.29 Other Escherichia coli [E. coli] as the cause of diseases classified elsewhere; B96.4 Proteus (mirabilis) (morganii) as the cause of diseases classified elsewhere; B95.7 Other staphylococcus as the cause of diseases classified elsewhere; B95.2 Enterococcus as the cause of diseases classified elsewhere
CPT/HCPCS: 36415; 71045-TC-FY; 80053; 81003; 82550; 82803; 82962; 83605; 83735; 83880; 84100; 84443; 84484; 85025; 85610; 85651; 85730; 86140; 86704; 86706; 86708; 86803; 86850; 86870; 86900; 86901; 86902; 86922; 87040; 87070; 87077; 87086; 87186; 87205; 87340; 93005; 93010; 99285-25; G0463-25; G0480; J0131; J0885; J7030

== ENCOUNTER 2019-02-21 14:21 | Inpatient (IN) | payer OTHER ==
--- NOTE | 2019-02-21 14:46 | PDOC ---
History of Present Illness - General Chief Complaint: Weakness Stated Complaint: AMS/FAILURE TO THRIVE Time Seen by Provider: 02/21/19 14:42 History Source: EMS, [facility] Records Exam Limitations: Clinical Condition, Dementia - History of Present Illness Initial Comments: 02/21/19 15:19 73 year old male with PMH unstageable gangrenous foot ulcer b/l, unstageable sacral ulcer, PVD, ESRD (M/W/F), HLD, CVA, DM, COPD, BPH presented to ED via EMS for AMS. Yousuf Delarosa pt has had decreased PO intake and AMS since he arrived two days ago. Pt is verbal, will answer basic questions, but is unable to provide reliable history. Past History - Past Medical History Allergies/Adverse Reactions: Allergies Allergy/AdvReac Type Severity Reaction Status Date / Time watermelon Allergy Unknown Verified 02/21/19 14:44 melon Allergy Verified 02/21/19 14:44 No Known Drug Allergies Allergy Verified 02/21/19 14:44 Home Medications: Ambulatory Orders Albuterol 2.5/Ipratropium 0.5 [Duoneb -] 1 amp NEB Q6H PRN #0 amp 07/12/17 Allopurinol [Zyloprim -] 100 mg PO DAILY tablet 07/12/17 Atorvastatin Ca [Lipitor] 20 mg PO HS tablet 07/12/17 Collagenase Clostridium Hist. [Santyl -] 1 applic TP DAILY tube 09/06/18 Albuterol Sulfate [Proair Hfa] 2 puff IH Q6H PRN 10/29/18 Escitalopram Oxalate [Lexapro -] 10 mg PO DAILY 10/29/18 Folic Acid/Vit B Complex and C [Dialyvite Tablet] 1 each PO DAILY 10/29/18 Midodrine HCl 10 mg PO MOWEFR 10/29/18 Sevelamer Carbonate [Renvela -] 1,600 mg PO TID 10/29/18 Tamsulosin HCl [Flomax] 0.4 mg PO HS 10/29/18 Insulin Sliding Scale [Novolog Vial Sliding Scale -] 1 vial SQ TIDAC #1 vial Apixaban [Eliquis -] 5 mg PO BID #30 tablet MDD 2 11/19/18 Collagenase Clostridium Hist. [Santyl -] 1 applic TP DAILY #1 tube 01/17/19 Amoxicillin/Potassium Clav [Augmentin 500-125 Tablet] 1 each PO DAILY #7 tablet 02/06/19 Megestrol Acetate Oral Susp [Megace Liquid -] 400 mg PO DAILY #20 cup 02/06/19 Protein Supplement [Prosource] 275 gm PO TID #60 powder 02/06/19 Lactobacillus Acidophilus [Bacid -] 1 tab PO DAILY #60 tab 02/19/19 Midodrine HCl [Proamatine -] 5 mg PO SuTuThSa #60 tablet 02/19/19 traMADol HCL [Ultram -] 50 mg PO Q6H PRN #60 tablet MDD 4 02/19/19 Cardiac Disorders: Yes (ASHD, AF) CVA: Yes COPD: Yes CHF: Yes Dementia: Yes Diabetes: Yes HTN: Yes Hypercholesterolemia: Yes - Immunization History Immunization Up to Date: Yes - Suicide/Smoking/Psychosocial Hx Smoking History: Unknown if ever smoked Have you smoked in the past 12 months: No Hx Alcohol Use: No Drug/Substance Use Hx: No Substance Use Type: None Hx Substance Use Treatment: No Review of Systems - Review of Systems Able to Perform ROS?: No (Delerium) *Physical Exam - Vital Signs Last Vital Signs Temp Pulse Resp BP Pulse Ox 97.0 F L 91 H 14 95/60 69 L 02/21/19 14:45 02/21/19 14:45 02/21/19 14:45 02/21/19 14:45 02/21/19 14:45 - Physical Exam Comments: 02/21/19 15:23 Constitutional: cachectic, contracted. HEENT: head is normocephalic, atraumatic. EOMI. PERRLA. Neck: supple. Full ROM. Heart: regular rhythm. no murmurs, rubs or gallops. Chest: right sided perma-cath. Lungs: poor inspiratory effort. Abdomen: soft, nontender. normal bowel sounds. no rebound, guarding, masses. Extremities: peripheral pulses intact. no lower extremity edema. Neurological: CN 2-12 grossly intact. moves all four extremities. Psych: awake, alert, oriented to person. does not follow commands. Skin: unstageable sacral ulcer. unstageable bilateral heel ulcers. tendon visualized to left anterior foot wound. ED Treatment Course - LABORATORY CBC & Chemistry Diagram: 02/22/19 05:40 02/22/19 06:01 Medical Decision Making - Medical Decision Making 02/21/19 15:24 73 year old male with above PMH presented to ED for AMS/decrease PO intake from [facility]. Pt was recently admitted for wounds, family refused surgical treatment, pt was discharged on Augmentin to [facility]. Initial Vital Signs Temp Pulse Resp BP 97.0 F L 91 H 14 95/60 Hypothermic. No tachycardia. No tachypnea. Hypotensive. No reliable SPO2 sat. Labs ordered: CBC, CMP, troponin, TSH, acetone, VBG, blood cultures, UA/UC, acetaminophen, salicyclates, ammonia, T/S, BNP Imaging ordered: CXR, CT head Medications ordered: normal saline bolus 1000 cc, tylenol IV, vancomycin, zosyn EKG performed at 1429: rate 88, regular rhythm, normal axis, flipped T in lateral leads. Similar to EKG performed 01/31/19. 02/21/19 17:11 CBC WBC 9.4 K/mm3 (4.0-10.0) 02/21/19 15:10 RBC 3.21 M/mm3 (4.00-5.60) L 02/21/19 15:10 Hgb 9.2 GM/dL (11.7-16.9) L 02/21/19 15:10 Hct 30.3 % (35.4-49) L D 02/21/19 15:10 MCV 94.4 fl (80-96) 02/21/19 15:10 MCH 28.6 pg (25.7-33.7) 02/21/19 15:10 MCHC 30.3 g/dl (32.0-35.9) L 02/21/19 15:10 RDW 17.5 % (11.9-15.9) H 02/21/19 15:10 Plt Count 432 K/MM3 (134-434) D 02/21/19 15:10 MPV 9.4 fl (7.5-11.1) 02/21/19 15:10 Absolute Neuts (auto) 7.2 K/mm3 (1.5-8.0) 02/21/19 15:10 Neutrophils % 76.1 % (42.8-82.8) 02/21/19 15:10 Lymphocytes % 16.6 % (8-40) 02/21/19 15:10 Monocytes % 6.0 % (3.8-10.2) 02/21/19 15:10 Eosinophils % 0.9 % (0-4.5) 02/21/19 15:10 Basophils % 0.4 % (0-2.0) 02/21/19 15:10 Nucleated RBC % 0 % (0-0) 02/21/19 15:10 CMP Sodium 144 mmol/L (136-145) 02/21/19 15:10 Potassium 4.1 mmol/L (3.5-5.1) 02/21/19 15:10 Chloride 104 mmol/L (98-107) 02/21/19 15:10 Carbon Dioxide 32 mmol/L (21-32) 02/21/19 15:10 Anion Gap 8 MMOL/L (8-16) 02/21/19 15:10 BUN 51 mg/dL (7-18) H 02/21/19 15:10 Creatinine 4.1 mg/dL (0.55-1.3) H 02/21/19 15:10 Est GFR (CKD-EPI)AfAm 15.54 02/21/19 15:10 Est GFR (CKD-EPI)NonAf 13.41 02/21/19 15:10 Random Glucose 101 mg/dL (74-106) 02/21/19 15:10 Lactic Acid 2.3 mmol/L (0.4-2.0) H* 02/21/19 13:10 Calcium 9.8 mg/dL (8.5-10.1) 02/21/19 15:10 Phosphorus 2.5 mg/dL (2.5-4.9) 02/21/19 15:10 Magnesium 2.7 mg/dL (1.8-2.4) H 02/21/19 15:10 Total Bilirubin 0.4 mg/dL (0.2-1) 02/21/19 15:10 AST 15 U/L (15-37) 02/21/19 15:10 ALT 12 U/L (13-61) L 02/21/19 15:10 Alkaline Phosphatase 160 U/L (45-117) H 02/21/19 15:10 Ammonia 13.20 umol/L (11-32) 02/21/19 15:10 Troponin I < 0.02 ng/ml (0.00-0.05) 02/21/19 15:10 B-Natriuretic Peptide 9934.4 pg/ml (5-125) H 02/21/19 15:10 Total Protein 7.5 g/dl (6.4-8.2) 02/21/19 15:10 Albumin 1.7 g/dl (3.4-5.0) L 02/21/19 15:10 TSH 1.41 uIU/ml (0.358-3.74) D 02/21/19 15:10 INR, PTT INR 1.44 (0.83-1.09) H 02/21/19 15:10 VBG - normal pH. Salicyclate, acetaminophen, etoh negative. Acetone 1+. Urine Test Results Urine Color Dk yellow 02/21/19 14:50 Urine Appearance Clear 02/21/19 14:50 Urine pH 5.0 (5.0-8.0) 02/21/19 14:50 Ur Specific [place] 1.026 (1.010-1.035) 02/21/19 14:50 Urine Protein 2+ (NEGATIVE) H 02/21/19 14:50 Urine Glucose (UA) Negative (NEGATIVE) 02/21/19 14:50 Urine Ketones Trace (NEGATIVE) H 02/21/19 14:50 Urine Blood Negative (NEGATIVE) 02/21/19 14:50 Urine Nitrite Negative (NEGATIVE) 02/21/19 14:50 Urine Bilirubin 2+ (NEGATIVE) H 02/21/19 14:50 Ur Leukocyte Esterase 1+ (NEGATIVE) H 02/21/19 14:50 Pt to be admitted for sepsis from multiple unstagable ulcer wounds resulting in sepsis. Pt placed on 6L O2 nasal cannula. Pending admission. 02/21/19 18:46 CXR report: A single AP view of the chest is been submitted. There is a normal mediastinum, rotation to the right, degenerative changes, right jugular line with tip in right atrium, elevated right hemidiaphragm and no sign of infiltrate or failure. There is left chest soft tissue artifact. The angles are sharp. A lesion recommended. Since 01/31/2019 there is no change of an adverse nature. *DC/Admit/Observation/Transfer Diagnosis at time of Disposition: Sepsis, Sacral decubitus ulcer, Pressure ulcer - Discharge Dispostion Condition at time of disposition: Stable Decision to Admit order: Yes - Referrals - Patient Instructions - Post Discharge Activity
[2019-02-21] MEDS ORDERED: SODIUM CHLORIDE 1,000 ML IV STA (15:17)
[2019-02-21] MEDS ORDERED: ACETAMINOPHEN 1000 MG/100 ML VIAL (NON FORMULARY) IVPB ONE (15:18)
[2019-02-21 15:20] LABS: EPI CELLS 0.5 /HPF (0-5/HPF); HYALINE CASTS 4 /lpf (0-8); URINE APPEARANCE CLEAR; URINE BACTERIA 2.9 /hpf (NEGATIVE); URINE BILIRUBIN 2+ (NEGATIVE); URINE COLOR DK YELLOW; URINE GLUCOSE (UA) NEGATIVE (NEGATIVE); URINE KETONE TRACE (NEGATIVE); URINE LEUK ESTERASE 1+ (NEGATIVE); URINE NITRITE NEGATIVE (NEGATIVE); URINE PROTEIN 2+ (NEGATIVE); URINE WBC 4 /hpf (0-5)
[2019-02-21] MEDS ORDERED: PIPERACILLIN/TAZOB 4.5 GM 4.5 GM in DEXTROSE 5%-WATER 100 ML IVPB ONE (15:25)
[2019-02-21] MEDS ORDERED: VANCOMYCIN 1,000 MG in DEXTROSE 5%-WATER - 250 ML IVPB ONE (15:25)
[2019-02-21] MEDS ORDERED: PIPERACILLIN/TAZOB 4.5 GM 4.5 GM/100 ML BAG IVPB ONE ×2 (15:31→15:32)
[2019-02-21] MEDS ORDERED: ACETAMINOPHEN INJECTION 100 ML IVPB ONE (15:31)
[2019-02-21] MEDS ORDERED: VANCOMYCIN 1 GRAM (PRE-DOCKED) 1,000 MG/250 ML BAG IVPB ONE (15:31)
[2019-02-21 15:33] LABS: BASO % 0.4 % (0-2.0); EOS % 0.9 % (0-4.5); HEMATOCRIT 30.3 % (35.4-49); HEMOGLOBIN 9.2 GM/dL (11.7-16.9); LYMPH % 16.6 % (8-40); MCH 28.6 pg (25.7-33.7); MCHC 30.3 g/dl (32.0-35.9); MEAN CELL VOLUME 94.4 fl (80-96); MEAN PLT VOLUME 9.4 fl (7.5-11.1); NEUT % 76.1 % (42.8-82.8); PLATELET COUNT 432 K/MM3 (134-434); RBC 3.21 M/mm3 (4.00-5.60); RDW 17.5 % (11.9-15.9); WHITE BLOOD COUNT 9.4 K/mm3 (4.0-10.0)
[2019-02-21 15:39] LABS: VENOUS PC02 54.8 mmHg (41-51); VENOUS PH 7.39 (7.31-7.41)
[2019-02-21 15:50] LABS: URINE RBC 10 /hpf (0-4)
[2019-02-21 15:53] LABS: INR 1.44 (0.83-1.09); PROTHROMBIN TIME (PATIENT) 17.1 SEC (9.7-13.0)
[2019-02-21 15:55] LABS: ACTIVATED PTT 40.1 SECONDS (25.2-36.5)
[2019-02-21 16:43] LABS: ALBUMIN 1.7 g/dl (3.4-5.0); ALK PHOS 160 U/L (45-117); ANION GAP 8 MMOL/L (8-16); BILIRUBIN,TOTAL 0.4 mg/dL (0.2-1); BLOOD UREA NITROGEN 51 mg/dL (7-18); CALCIUM 9.8 mg/dL (8.5-10.1); CHLORIDE 104 mmol/L (98-107); CO2 32 mmol/L (21-32); CREATININE 4.1 mg/dL (0.55-1.3); GLUCOSE,RANDOM 101 mg/dL (74-106); MAGNESIUM 2.7 mg/dL (1.8-2.4); N-TERMINAL BNP 9934.4 pg/ml (5-125); PHOSPHOROUS 2.5 mg/dL (2.5-4.9); POTASSIUM 4.1 mmol/L (3.5-5.1); SGOT/AST 15 U/L (15-37); SGPT/ALT 12 U/L (13-61); SODIUM 144 mmol/L (136-145); TOT PROT 7.5 g/dl (6.4-8.2)
[2019-02-21 16:48] LABS: ACETONE SERUM POSITIVE SMALL 1+ (NEGATIVE)
--- NOTE | 2019-02-21 17:26 | PDOC ---
Documentation entered by Jaky England SCRIBE, acting as scribe for Preston Becker MD. Preston Becker MD: This documentation has been prepared by the scribe, Jaky England SCRIBE, under my direction and personally reviewed by me in its entirety. I confirm that the documentation accurately reflects all work, treatment, procedures, and medical decision making performed by me. Attending Attestation - Resident Resident Name: JovanySherry - ED Attending Attestation I have performed the following: I have examined & evaluated the patient, The case was reviewed & discussed with the resident, I agree w/resident's findings & plan, Exceptions are as noted - HPI HPI: 02/21/19 15:35 The patient is a 73 year old male with past medical history significant for ESRD (M, W, F, last dialysis 02/20), PVD, HLD, DM, COPD, B/L gangrenous foot ulcer (recent admission from 01/31-02/19), presents to the emergency department from [facility] via EMS for failure to thrive and worsening wounds. History obtained via NH records and RN Tiffanie. Per RN Tiffanie , since admission 2 days ago (02/19), the patient hasnt been eating or drinking. The nurse notes they tried to access an IV line but was unsuccessful. At baseline the patient is opens eyes and moves upper extremities. The patient was sent to the ER for further evaluation. The patient was admitted to [facility] on 01/31/2019 for infected/gangrenous lower extremity and sepsis. During the stay, the patient was consulted by ID and Vascular Surgery. Per prior charts, patient had B/L foot ulcer down to the bone with purulent discharge, B/L wet gangrene, foul smelling with leukocytosis and Osteomyelitis of feet b/l as evidenced by the destruction of bone on foot x- ray" Patient was given abx treatment and was discharged on 02/19 to residential , with augmentin x 7 days prescription. Allergies: NKDA, watermelon and melon. Social history: PCP: From Assisted. - Physicial Exam PE: 02/21/19 15:37 agree with resident exam - Medical Decision Making 02/21/19 15:33 Call placed to [facility] at 3: 13 pm. Case discussed with AGUILAR Moreno. 02/21/19 17:10 73yo M with MMP including gangrenous wounds presents to the ED with failure to thrive. Pt refusing any PO during NH stay Pt's wounds today to b/l feet, sacrum, posterior testicles Wounds to feet with copious purulent drainage Also exposed tendon to L proximal dorsal foot Plan to cover pt empirically with vanc/zosyn Lactate 2.3, will hydrate gently with 1L (pt's IVC on bedside sono with no collapse) Pt admitted to Dr. Alcaraz for further mgmt (sign out given to Dr. Salinas) Case discussed in detail with admitting physician including history, physical exam and ancillary studies. Admitting physician has assumed care for the patient, will follow all pending diagnostics and will complete the evaluation and treatment.
[2019-02-21] MEDS ORDERED: ALBUTEROL SO4 2.5/IPRATROPIUM 0.5 INH SOL 3 ML VIAL.NEB. NEB PRN (19:04)
[2019-02-21] MEDS ORDERED: ALBUTEROL SO4 8 GM HFA INHALER IH PRN (19:04)
--- NOTE | 2019-02-21 19:47 | PN ---
Teaching Attending Note Name of Resident: Leon Salinas ATTENDING PHYSICIAN STATEMENT I saw and evaluated the patient. I reviewed the resident's note and discussed the case with the resident. I agree with the resident's findings and plan as documented. SUBJECTIVE: CC: sent form NH for poor oral intake, and no improvement in ulcers. HPI: 73 y/o man with h/o dementia, CVA, DM, COPD, ESRD, gout, HTN, HLP, recent admission 01/31-02/19 during which he was treated for sepsis due to infected b/l feet ulcers/gangrene. [place] was sent [place] due to poor po intake, and non healing wounds patient was dc on 02/19 on augmentin, after daughter refused amputations recommended by treating team. he is contracted, opens eyes with minimal verbal response at his base line. he has not beed taking good po in NH. unable to take any h/o form him. OBJECTIVE: NAD , comfortable, resists eye openinf. contracted. dry MM. missing fornt teeth. CV: RRR, no MRG Lungs: poor effort Abd: sfot, Nt, ND , NL BS SKin: decub ulcers on sacrum and posterior scrotum with putulent discharge. EXt: L foot with unstagable ulcer with purulent discharge. dorsal ulcer at anterior ankle with exposed tendon and no discharge. DP is not felt R foot with multiple ulcers, and exposed tendons. no purulent discharge . dry skin. black discoloration of the R leg. ASSESSMENT AND PLAN: 73 y/o man with h/o dementia, CVA, DM, COPD, ESRD, gout, HTN, HLP, recent admission 01/31-02/19 during which he was treated for sepsis due to infected b/l feet ulcers/gangrene. He was sent [facility] due to poor po intake, and non healing wounds 1- Gangrene of b/l feet. infection in diabetic feet. - old cx with E coli, ESBL, MRSA, and VRE. - no signs of sepsis this time - attempted to reach Id , no response. - start zosyn. vanco level in Am. - ID Recs to follow - Dr. Salinas d/w daughter and Dr. Mcneil , amputation of feet. daughter did not make a decision - consult Dr. Mcneil - given a liter of IVF in ER. will not repeat 2- Infected sacral decub : - abx as above 3- ESRD: renal consult 4- Dm : SSI 5- H/o hypotension : cont his midodrine 6- Goals of care: was not able to d/w daughter as conversation was only about feet. will address goals of care tomorrow. poor prognosis given overall condition and ideally comfort care is recommended .
--- NOTE | 2019-02-21 19:50 | HP ---
CHIEF COMPLAINT: send in by jail for worsening ulcers and foul discharge PCP: none HISTORY OF PRESENT ILLNESS: The patient is a 73 year old male with past medical history significant for ESRD (M, W, F, last dialysis 02/20), PVD, HLD, DM, COPD , B/L gangrenous foot ulcer b/l (recent admission from 01/31-02/19), presents to the emergency department from [facility]Note 3[facility] via EMS for failure to thrive and worsening wounds. History obtained via NH records and er notesper er notes since admission 2 days ago (02/19), the patient hasn t been eating or drinking. The nurse notes they tried to access an IV line but was unsuccessful. At baseline the patient is opens eyes and moves upper extremities. The patient was sent to the ER for further evaluation. The patient was admitted to [facility] on 01/31/2019 for infected/gangrenous lower extremity and sepsis. During the stay, the patient was consulted by ID and Vascular Surgery. Per prior charts, patient had B/L foot ulcer down to the bone with purulent discharge, B/L wet gangrene, foul smelling with leukocytosis and Osteomyelitis of feet b/l as evidenced by the destruction of bone on foot x- ray" Patient was given abx treatment and was [facility] on 02/[facility] , with augmentin x 7 days prescription. IN ER pt got vanco and teesyn Case discussed with pt daughter loretta who is a very rude person I tried to explain it to her regarding the condition of her father. I also discussed the case with dr harry and he told me he had discussed the case in detail with pt daughter loretta. Allergies: NKDA, watermelon and melon. Social history: PCP: From Shelter. ER course was notable for: (1)cbc, cmp, vanc, zosyn (2) (3) Recent Travel: no PAST MEDICAL HISTORY: as above Social History: unobtainable Family History: unobtainable Allergies watermelon Allergy (Unknown, Verified 02/21/19 14:44) melon Allergy (Verified 02/21/19 14:44) No Known Drug Allergies Allergy (Verified 02/21/19 14:44) HOME MEDICATIONS: Home Medications Medication Instructions Recorded Albuterol 2.5/Ipratropium 0.5 1 amp NEB Q6H PRN #0 amp 07/12/17 [Duoneb -] Allopurinol [Zyloprim -] 100 mg PO DAILY tablet 07/12/17 Atorvastatin Ca [Lipitor] 20 mg PO HS tablet 07/12/17 Collagenase Clostridium Hist. 1 applic TP DAILY tube 09/06/18 [Santyl -] Albuterol Sulfate [Proair Hfa] 2 puff IH Q6H PRN 10/29/18 Escitalopram Oxalate [Lexapro -] 10 mg PO DAILY 10/29/18 Folic Acid/Vit B Complex and C 1 each PO DAILY 10/29/18 [Dialyvite Tablet] Midodrine HCl 10 mg PO MOWEFR 10/29/18 Sevelamer Carbonate [Renvela -] 1,600 mg PO TID 10/29/18 Tamsulosin HCl [Flomax] 0.4 mg PO HS 10/29/18 Insulin Sliding Scale [Novolog 1 vial SQ TIDAC #1 vial 11/17/18 Vial Sliding Scale -] Apixaban [Eliquis -] 5 mg PO BID #30 tablet MDD 2 11/19/18 Collagenase Clostridium Hist. 1 applic TP DAILY #1 tube 01/17/19 [Santyl -] Amoxicillin/Potassium Clav 1 each PO DAILY #7 tablet 02/06/19 [Augmentin 500-125 Tablet] Megestrol Acetate Oral Susp 400 mg PO DAILY #20 cup 02/06/19 [Megace Liquid -] Protein Supplement [Prosource] 275 gm PO TID #60 powder 02/06/19 Lactobacillus Acidophilus [Bacid -] 1 tab PO DAILY #60 tab 02/19/19 Midodrine HCl [Proamatine -] 5 mg PO SuTuThSa #60 tablet 02/19/19 traMADol HCL [Ultram -] 50 mg PO Q6H PRN #60 tablet MDD 4 02/19/19 REVIEW OF SYSTEMS: unobtainable PHYSICAL EXAMINATION Vital Signs - 24 hr 02/21/19 02/21/19 14:45 18:57 Temperature 97.0 F L Pulse Rate 91 H Pulse Rate [ 91 H Apical] Respiratory 14 18 Rate Blood Pressure 95/60 Blood Pressure 91/57 L [Right Arm] O2 Sat by Pulse 69 L 92 L Oximetry (%) GENERAL: open eyes on calling his name EARS, NOSE, THROAT: Moist mucous membranes. LUNGS: Breath sounds equal, No accessory muscle use. catheter present on right side HEART: s1s2 normal ABDOMEN: Soft, nontender, not distended, normoactive bowel sounds, ulcer presebt on sacrum unstagable with foul discharge, scrotum has ulcer no discharge MUSCULOSKELETAL: Normal range of motion at all joints. No bony deformities or tenderness. No CVA tenderness. UPPER EXTREMITIES: 2+ pulses, warm, well-perfused. LOWER EXTREMITIES: b/l wet gangrene with fouls smelling discharge SKIN: Warm, dry, Laboratory Results - last 24 hr 02/21/19 02/21/19 02/21/19 13:10 14:50 15:10 WBC 9.4 RBC 3.21 L Hgb 9.2 L Hct 30.3 L D MCV 94.4 MCH 28.6 MCHC 30.3 L RDW 17.5 H Plt Count 432 D MPV 9.4 Absolute Neuts (auto) 7.2 Neutrophils % 76.1 Lymphocytes % 16.6 Monocytes % 6.0 Eosinophils % 0.9 Basophils % 0.4 Nucleated RBC % 0 PT with INR INR PTT (Actin FS) VBG pH POC VBG pCO2 POC VBG pO2 VBG HCO3 VBG O2 Sat (Bev) VBG Base Excess Sodium Potassium Chloride Carbon Dioxide Anion Gap BUN Creatinine Est GFR (CKD-EPI)AfAm Est GFR (CKD-EPI)NonAf Random Glucose Lactic Acid 2.3 H* Calcium Phosphorus Magnesium Total Bilirubin AST ALT Alkaline Phosphatase Ammonia Troponin I B-Natriuretic Peptide Total Protein Albumin TSH Urine Color Dk yellow Urine Appearance Clear Urine pH 5.0 Ur Specific Merritt 1.026 Urine Protein 2+ H Urine Glucose (UA) Negative Urine Ketones Trace H Urine Blood Negative Urine Nitrite Negative Urine Bilirubin 2+ H Urine Urobilinogen 1.0 Ur Leukocyte Esterase 1+ H Urine WBC (Auto) 4 Urine RBC (Auto) 10 Urine Casts (Auto) 4 U Epithel Cells (Auto) 0.5 Urine Bacteria (Auto) 2.9 Salicylates Acetaminophen Alcohol, Quantitative Acetone, Qual 02/21/19 02/21/19 02/21/19 15:10 15:10 15:10 WBC RBC Hgb Hct MCV MCH MCHC RDW Plt Count MPV Absolute Neuts (auto) Neutrophils % Lymphocytes % Monocytes % Eosinophils % Basophils % Nucleated RBC % PT with INR 17.10 H INR 1.44 H PTT (Actin FS) 40.1 H VBG pH 7.39 POC VBG pCO2 54.8 H POC VBG pO2 14.0 L VBG HCO3 32.1 H VBG O2 Sat (Bev) 10.7 L VBG Base Excess 6.8 H Sodium 144 Potassium 4.1 Chloride 104 Carbon Dioxide 32 Anion Gap 8 BUN 51 H Creatinine 4.1 H Est GFR (CKD-EPI)AfAm 15.54 Est GFR (CKD-EPI)NonAf 13.41 Random Glucose 101 Lactic Acid Calcium 9.8 Phosphorus 2.5 Magnesium 2.7 H Total Bilirubin 0.4 AST 15 ALT 12 L Alkaline Phosphatase 160 H Ammonia Troponin I < 0.02 B-Natriuretic Peptide 9934.4 H Total Protein 7.5 Albumin 1.7 L TSH 1.41 D Urine Color Urine Appearance Urine pH Ur Specific Merritt Urine Protein Urine Glucose (UA) Urine Ketones Urine Blood Urine Nitrite Urine Bilirubin Urine Urobilinogen Ur Leukocyte Esterase Urine WBC (Auto) Urine RBC (Auto) Urine Casts (Auto) U Epithel Cells (Auto) Urine Bacteria (Auto) Salicylates < 1.7 L Acetaminophen < 2.0 L Alcohol, Quantitative < 3.0 Acetone, Qual Positive small 1+ 02/21/19 15:10 WBC RBC Hgb Hct MCV MCH MCHC RDW Plt Count MPV Absolute Neuts (auto) Neutrophils % Lymphocytes % Monocytes % Eosinophils % Basophils % Nucleated RBC % PT with INR INR PTT (Actin FS) VBG pH POC VBG pCO2 POC VBG pO2 VBG HCO3 VBG O2 Sat (Bev) VBG Base Excess Sodium Potassium Chloride Carbon Dioxide Anion Gap BUN Creatinine Est GFR (CKD-EPI)AfAm Est GFR (CKD-EPI)NonAf Random Glucose Lactic Acid Calcium Phosphorus Magnesium Total Bilirubin AST ALT Alkaline Phosphatase Ammonia 13.20 Troponin I B-Natriuretic Peptide Total Protein Albumin TSH Urine Color Urine Appearance Urine pH Ur Specific Merritt Urine Protein Urine Glucose (UA) Urine Ketones Urine Blood Urine Nitrite Urine Bilirubin Urine Urobilinogen Ur Leukocyte Esterase Urine WBC (Auto) Urine RBC (Auto) Urine Casts (Auto) U Epithel Cells (Auto) Urine Bacteria (Auto) Salicylates Acetaminophen Alcohol, Quantitative Acetone, Qual ASSESSMENT/PLAN: 73 y/o man with h/o dementia, CVA, DM, COPD, ESRD, gout, HTN, HLP, recent admission 01/31-02/19 during which he was treated for sepsis due to infected b/l feet ulcers/gangrene. He was sent form NH due to poor po intake, and worsening of ulcers 1- Wet Gangrene of b/l feet. - old cx with E coli, ESBL, MRSA, and VRE. - attempted to reach Id , no response. - start zosyn. vanco level in Am. - antibiotics as per id - vascular surgery consult Dr harry - Discussed with dr harry. He has already discussed the plan with daughter in last admission. His old chart reviewed. - given a liter of IVF in ER. will not repeat - repeat lactic acid - consider palliative care consult - random vanco level - change position q2h - catheterize to prevent contamination of wounds 2- Infected sacral decub with foul smelling discharge - abx as above - dr harry 3- ESRD: renal consult on HD M,W,F nephro consult 4- Dm : diabetic diet sliding scale 5- H/o hypotension : cont his midodrine monitor vitals 6 h/o afib continue elequis 2.5 bid fluid: avoid iv fluid electrolyte: repeat in am nutrition: consider speech and swallow dvt pro: elequis gi pro; not required Visit type - Emergency Visit Emergency Visit: Yes ED Registration Date: 02/21/19 Care time: The patient presented to the Emergency Department on the above date and was hospitalized for further evaluation of their emergent condition. - New Patient This patient is new to me today: Yes Date on this admission: 02/24/19 - Critical Care Critical Care patient: No
[2019-02-21] MEDS ORDERED: PIPERACILLIN/TAZOB 2.25 GM 2.25 GM in DEXTROSE 5%-WATER - 50 ML IVPB SCH (21:00)
[2019-02-21] MEDS ORDERED: PIPERACILLIN/TAZOBACTAM 2.25 GM VIAL IVPB ONE (21:44)
[2019-02-21] MEDS ORDERED: DEXTROSE 5%-WATER - 50 ML IVPB ONE (21:45)
[2019-02-21] MEDS ORDERED: APIXABAN 5 MG TABLET PO SCH (22:00)
[2019-02-21] MEDS ORDERED: PROTEIN SUPPLEMENT 275 GM PO SCH (22:00)
[2019-02-21] MEDS: PIPERACILLIN/TAZOB 2.25 GM 2.25 GM in DEXTROSE 5%-WATER - 50 ML IVPB SCH (22:02)
[2019-02-21] MEDS: AMINO ACIDS/PROTEIN HYDROLYS 30 ML LIQUID.PKT PO SCH (22:23)
[2019-02-21] MEDS: TAMSULOSIN HCL 0.4 MG CAP PO SCH (22:23)
[2019-02-21] MEDS: APIXABAN 2.5 MG TABLET PO SCH (22:23)
[2019-02-21] MEDS: ATORVASTATIN CA 20 MG TABLET (FP) PO SCH (22:23)
[2019-02-21] MEDS ORDERED: MIDODRINE HCL 5 MG TABLET PO ONE (23:21)
[2019-02-22] MEDS ORDERED: PIPERACILLIN/TAZOBACTAM 2.25 GM VIAL IVPB ONE ×2 (03:29→08:38)
[2019-02-22] MEDS ORDERED: DEXTROSE 5%-WATER - 50 ML IVPB ONE ×2 (03:29→08:38)
[2019-02-22] MEDS: PIPERACILLIN/TAZOB 2.25 GM 2.25 GM in DEXTROSE 5%-WATER - 50 ML IVPB SCH ×2 (03:34→09:00)
[2019-02-22 06:37] LABS: BASO % 0.5 % (0-2.0); EOS % 2.3 % (0-4.5); HEMATOCRIT 25.2 % (35.4-49); HEMOGLOBIN 7.9 GM/dL (11.7-16.9); LYMPH % 14.8 % (8-40); MCHC 31.2 g/dl (32.0-35.9); MEAN CELL VOLUME 92.9 fl (80-96); MEAN PLT VOLUME 9.7 fl (7.5-11.1); MONO % 5.5 % (3.8-10.2); NEUT % 76.9 % (42.8-82.8); PLATELET COUNT 418 K/MM3 (134-434); RBC 2.72 M/mm3 (4.00-5.60); RDW 17.7 % (11.9-15.9); WHITE BLOOD COUNT 10.2 K/mm3 (4.0-10.0)
[2019-02-22] MEDS: AMINO ACIDS/PROTEIN HYDROLYS 30 ML LIQUID.PKT PO SCH ×3 (06:50→21:44)
[2019-02-22 06:58] LABS: INR 1.44 (0.83-1.09)
[2019-02-22 07:00] LABS: ACTIVATED PTT 39.2 SECONDS (25.2-36.5)
[2019-02-22] MEDS ORDERED: INSULIN SLIDING SCALE (NOVOLOG) 1 VIAL SQ SCH (07:00)
[2019-02-22 08:42] LABS: ALBUMIN 1.5 g/dl (3.4-5.0); BILIRUBIN,TOTAL 0.4 mg/dL (0.2-1); CREATININE 4.3 mg/dL (0.55-1.3); MAGNESIUM 2.6 mg/dL (1.8-2.4); PHOSPHOROUS 3.1 mg/dL (2.5-4.9); POTASSIUM 3.7 mmol/L (3.5-5.1); TOT PROT 6.6 g/dl (6.4-8.2)
[2019-02-22] MEDS: INSULIN SLIDING SCALE (NOVOLOG) 1 VIAL SQ SCH ×3 (08:53→16:45)
[2019-02-22] MEDS: SEVELAMER CARBONATE 800 MG TAB (FP) PO SCH ×3 (09:00→17:46)
--- NOTE | 2019-02-22 09:13 | CON.ID ---
Consult Consult Specialty:: infectious disease Referred by:: hospitalist Reason for Consultation:: sepsis - History of Present Illness Chief Complaint: weakness, not eating or drinking at the [facility], failure to thrive History of Present Illness: 73 yo man with esrd/hd admitted from [facility]- he was just hospitalized at [facility] for gangrenous wounds on his feet- family refused debridement and amputation he got zosyn for 01/31 to 02/07, then switched to augmentin from 02/08 his blood cultures were negative last admission blood cultures drawn last night and are growing GNR he got vancomycin and zosyn in the ED now with hypotension he is responsive prior history of MRSA bacteremia vref and ecoli esbl in wounds - History Source History Provided By: Medical Record Limitations to Obtaining History: Clinical Condition - Past Medical History BREWERY PUMPER: Yes: CVA, Dementia Cardio/Vascular: Yes: AFIB, CAD (PVD), CHF, HTN, Hyperlipdemia Pulmonary: Yes: COPD Renal/: Yes: Renal Failure, Hemodialysis Infectious Disease: Yes: MRSA, VREF, Other (ecoli ESBL) Endocrine: Yes: Diabetes Mellitus - Past Surgical History Additional Surgical History: permacath - Alcohol/Substance Use Hx Alcohol Use: No - Smoking History Smoking history: Unknown if ever smoked Have you smoked in the past 12 months: No - Social History Usual Living Arrangement: [facility] ADL: Support Services History of Recent Travel: No Home Medications - Allergies Allergies/Adverse Reactions: Allergies Allergy/AdvReac Type Severity Reaction Status Date / Time watermelon Allergy Unknown Verified 02/21/19 14:44 melon Allergy Verified 02/21/19 14:44 No Known Drug Allergies Allergy Verified 02/21/19 14:44 - Home Medications Home Medications: Ambulatory Orders Albuterol 2.5/Ipratropium 0.5 [Duoneb -] 1 amp NEB Q6H PRN #0 amp 07/12/17 Allopurinol [Zyloprim -] 100 mg PO DAILY tablet 07/12/17 Atorvastatin Ca [Lipitor] 20 mg PO HS tablet 07/12/17 Collagenase Clostridium Hist. [Santyl -] 1 applic TP DAILY tube 09/06/18 Albuterol Sulfate [Proair Hfa] 2 puff IH Q6H PRN 10/29/18 Escitalopram Oxalate [Lexapro -] 10 mg PO DAILY 10/29/18 Folic Acid/Vit B Complex and C [Dialyvite Tablet] 1 each PO DAILY 10/29/18 Midodrine HCl 10 mg PO MOWEFR 10/29/18 Sevelamer Carbonate [Renvela -] 1,600 mg PO TID 10/29/18 Tamsulosin HCl [Flomax] 0.4 mg PO HS 10/29/18 Insulin Sliding Scale [Novolog Vial Sliding Scale -] 1 vial SQ TIDAC #1 vial Apixaban [Eliquis -] 5 mg PO BID #30 tablet MDD 2 11/19/18 Collagenase Clostridium Hist. [Santyl -] 1 applic TP DAILY #1 tube 01/17/19 Amoxicillin/Potassium Clav [Augmentin 500-125 Tablet] 1 each PO DAILY #7 tablet 02/06/19 Megestrol Acetate Oral Susp [Megace Liquid -] 400 mg PO DAILY #20 cup 02/06/19 Protein Supplement [Prosource] 275 gm PO TID #60 powder 02/06/19 Lactobacillus Acidophilus [Bacid -] 1 tab PO DAILY #60 tab 02/19/19 Midodrine HCl [Proamatine -] 5 mg PO SuTuThSa #60 tablet 02/19/19 traMADol HCL [Ultram -] 50 mg PO Q6H PRN #60 tablet MDD 4 02/19/19 Family Disease History - Family Disease History Family History: Unable to Obtain Review of Systems Unable to obtain ROS, reason: unable to obtain Physical Exam Vital Signs: Vital Signs Temperature 98.7 F 02/22/19 02:00 Pulse Rate 83 02/22/19 07:00 Respiratory Rate 21 H 02/22/19 07:00 Blood Pressure 84/46 L 02/22/19 07:00 O2 Sat by Pulse Oximetry (%) 99 02/21/19 19:01 Constitutional: Yes: Thin Eyes: Yes: Conjunctiva Clear HENT: Yes: Atraumatic, Normocephalic Neck: Yes: Supple Cardiovascular: Yes: Regular Rate and Rhythm, Other (permacath site no erythema , no drainage) Respiratory: Yes: CTA Bilaterally Gastrointestinal: Yes: Normal Bowel Sounds, Soft Extremities: Yes: Other (contracted, foulsmelling gangrenous wounds both feet) Edema: Yes Edema: LLE: Trace, RLE: Trace Labs: CBC, BMP 02/22/19 05:40 02/22/19 06:01 Microbiology 02/21/19 13:16 Blood - Peripheral Venous Blood Culture - Preliminary Pending Organism 02/21/19 15:40 Blood - Peripheral Venous Blood Culture - Preliminary Pending Organism Imaging - Results Chest X-ray: Report Reviewed, Image Reviewed (no infiltrate) Problem List - Problems (1) Gram negative sepsis Code(s): A41.50 - GRAM-NEGATIVE SEPSIS, UNSPECIFIED (2) Gangrene of both feet Code(s): I96 - GANGRENE, NOT ELSEWHERE CLASSIFIED (3) ESRD (end stage renal disease) on dialysis Code(s): N18.6 - END STAGE RENAL DISEASE; Z99.2 - DEPENDENCE ON RENAL DIALYSIS (4) MRSA (methicillin resistant 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 coli carrier Code(s): Z22.39 - CARRIER OF OTHER SPECIFIED BACTERIAL DISEASES (6) VRE (vancomycin-resistant Enterococci) Code(s): A49.1 - STREPTOCOCCAL INFECTION, UNSPECIFIED SITE; Z16.21 - RESISTANCE TO VANCOMYCIN Assessment/Plan gram negative sepsis most likely source is skin history of mrsa/vref and ecoli esbl has received zosyn and augmentin recently start meropenem gentamicin one dose icu consult suspect needs pressors awaiting surgical eval- family has refused amputation/debridement in the past ?fluids d/w hospitlist service and icu service over 40 minutes spent on the care of this criticallly ill ICU patient
[2019-02-22] MEDS ORDERED: GENTAMICIN INJECTION 120 MG in SODIUM CHLORIDE 100 ML IVPB ONE (10:00)
[2019-02-22] MEDS ORDERED: NOREPINEPHRINE BITARTRATE 4 MG/4 ML ML IV ONE (10:36)
--- NOTE | 2019-02-22 10:41 | CONSULT ---
Consultation: REQUESTING PROVIDER:Dr. Alcaraz CONSULT REQUEST: We have been asked to medically evaluate this patient for septic shock. HISTORY OF PRESENT ILLNESS: Patient is a 73 year old male with past medical history of ESRD (on HD MWF), PVD , HLD, DM, COPD, bilateral gangrenous foot ulcer, [facility] and worsening wounds. Today, patient noted to be hypotensive and was transferred to the ICU for closer monitoring. Patient was discharged 3 days ago for sepsis secondary to gangrenous lower extremity with history of MRSA bacteremia and E. coli ESBL wounds. Patient was sent to the care home to continue Augmentin for 7 more days. Vascular surgery has been consulted in the past and recommended debridement and amputation, but HCP ( daughter) has not consented. Since [facility], [facility], patient has not been eating or drinking, so he was brought to the ED, where patient received Vanc and Zosyn. Patient is minimally verbal, opens eyes when asked, at baseline. This morning, patient noted to be hypotensive with MAP at 40s, with cultures growing gram negative bacteremia. Central line placed for pressors. REVIEW OF SYSTEMS: CONSTITUTIONAL: Absent: fever, chills, diaphoresis, generalized weakness, malaise, loss of appetite, weight change HEENT: Absent: rhinorrhea, nasal congestion, throat pain, throat swelling, difficulty swallowing, mouth swelling, ear pain, eye pain, visual changes CARDIOVASCULAR: Absent: chest pain, syncope, palpitations, irregular heart rate, lightheadedness , peripheral edema RESPIRATORY: Absent: cough, shortness of breath, dyspnea with exertion, orthopnea, wheezing, stridor, hemoptysis GASTROINTESTINAL: Absent: abdominal pain, abdominal distension, nausea, vomiting, diarrhea, constipation, melena, hematochezia GENITOURINARY: Absent: dysuria, frequency, urgency, hesitancy, hematuria, flank pain, genital pain MUSCULOSKELETAL: Absent: myalgia, arthralgia, joint swelling, back pain, neck pain SKIN: Absent: rash, itching, pallor HEMATOLOGIC/IMMUNOLOGIC: Absent: easy bleeding, easy bruising, lymphadenopathy, frequent infections ENDOCRINE: Absent: unexplained weight gain, unexplained weight loss, heat intolerance, cold intolerance NEUROLOGIC: Absent: headache, focal weakness or paresthesias, dizziness, unsteady gait, seizure, mental status changes, bladder or bowel incontinence PSYCHIATRIC: Absent: anxiety, depression, suicidal or homicidal ideation, hallucinations. PHYSICAL EXAMINATION Vital Signs - 24 hr 02/21/19 02/21/19 02/21/19 14:45 18:57 19:01 Temperature 97.0 F L 97.9 F Pulse Rate 91 H 79 Pulse Rate [ 91 H Apical] Respiratory 14 18 22 H Rate Blood Pressure 95/60 77/51 L Blood Pressure 91/57 L [Right Arm] O2 Sat by Pulse 69 L 92 L 99 Oximetry (%) 02/21/19 02/21/19 02/21/19 20:00 21:00 22:00 Temperature Pulse Rate 76 80 80 Pulse Rate [ Apical] Respiratory 24 H 17 20 Rate Blood Pressure 77/46 L 89/60 L 85/48 L Blood Pressure [Right Arm] O2 Sat by Pulse Oximetry (%) 02/21/19 02/22/19 02/22/19 23:00 00:00 01:00 Temperature Pulse Rate 79 79 78 Pulse Rate [ Apical] Respiratory 17 20 19 Rate Blood Pressure 88/51 L 86/74 L 87/48 L Blood Pressure [Right Arm] O2 Sat by Pulse Oximetry (%) 02/22/19 02/22/19 02/22/19 02:00 03:00 04:00 Temperature 98.7 F Pulse Rate 80 78 81 Pulse Rate [ Apical] Respiratory 22 H 19 18 Rate Blood Pressure 98/52 L 87/48 L 98/52 L Blood Pressure [Right Arm] O2 Sat by Pulse Oximetry (%) 02/22/19 02/22/19 02/22/19 05:00 06:00 07:00 Temperature Pulse Rate 83 83 83 Pulse Rate [ Apical] Respiratory 19 22 H 21 H Rate Blood Pressure 92/47 L 91/48 L 84/46 L Blood Pressure [Right Arm] O2 Sat by Pulse Oximetry (%) GENERAL: Lethargic, contracted, arousable to voice and pain. On nonrebreather mask. HEAD: Normal with no signs of trauma. NECK: Left IJ in place LUNGS: Decreased breath sounds bilaterally HEART: Regular rate and rhythm, normal S1 and S2 without murmur, rub or gallop. ABDOMEN: Soft, nontender, not distended, normoactive bowel sounds. UPPER EXTREMITIES: 2+ pulses, warm, well-perfused. No peripheral edema. LOWER EXTREMITIES: bilateral feet gangrene with purulent discharge and foul odor. NEUROLOGICAL: lethargic, arousable to voice, does not follow commands Laboratory Results - last 24 hr 02/21/19 02/21/19 02/21/19 13:10 14:50 15:10 WBC 9.4 RBC 3.21 L Hgb 9.2 L Hct 30.3 L D MCV 94.4 MCH 28.6 MCHC 30.3 L RDW 17.5 H Plt Count 432 D MPV 9.4 Absolute Neuts (auto) 7.2 Neutrophils % 76.1 Lymphocytes % 16.6 Monocytes % 6.0 Eosinophils % 0.9 Basophils % 0.4 Nucleated RBC % 0 PT with INR INR PTT (Actin FS) VBG pH POC VBG pCO2 POC VBG pO2 VBG HCO3 VBG O2 Sat (Bev) VBG Base Excess Sodium Potassium Chloride Carbon Dioxide Anion Gap BUN Creatinine Est GFR (CKD-EPI)AfAm Est GFR (CKD-EPI)NonAf Random Glucose Lactic Acid 2.3 H* Calcium Phosphorus Magnesium Total Bilirubin AST ALT Alkaline Phosphatase Ammonia Troponin I B-Natriuretic Peptide Total Protein Albumin TSH Urine Color Dk yellow Urine Appearance Clear Urine pH 5.0 Ur Specific [place] 1.026 Urine Protein 2+ H Urine Glucose (UA) Negative Urine Ketones Trace H Urine Blood Negative Urine Nitrite Negative Urine Bilirubin 2+ H Urine Urobilinogen 1.0 Ur Leukocyte Esterase 1+ H Urine WBC (Auto) 4 Urine RBC (Auto) 10 Urine Casts (Auto) 4 U Epithel Cells (Auto) 0.5 Urine Bacteria (Auto) 2.9 Random Vancomycin Salicylates Acetaminophen Alcohol, Quantitative Acetone, Qual Blood Type Antibody Screen Prewarmed Antibody Srcn Antibody Identification Antigen Identification 02/21/19 02/21/19 02/21/19 15:10 15:10 15:10 WBC RBC Hgb Hct MCV MCH MCHC RDW Plt Count MPV Absolute Neuts (auto) Neutrophils % Lymphocytes % Monocytes % Eosinophils % Basophils % Nucleated RBC % PT with INR 17.10 H INR 1.44 H PTT (Actin FS) 40.1 H VBG pH 7.39 POC VBG pCO2 54.8 H POC VBG pO2 14.0 L VBG HCO3 32.1 H VBG O2 Sat (Bev) 10.7 L VBG Base Excess 6.8 H Sodium 144 Potassium 4.1 Chloride 104 Carbon Dioxide 32 Anion Gap 8 BUN 51 H Creatinine 4.1 H Est GFR (CKD-EPI)AfAm 15.54 Est GFR (CKD-EPI)NonAf 13.41 Random Glucose 101 Lactic Acid Calcium 9.8 Phosphorus 2.5 Magnesium 2.7 H Total Bilirubin 0.4 AST 15 ALT 12 L Alkaline Phosphatase 160 H Ammonia Troponin I < 0.02 B-Natriuretic Peptide 9934.4 H Total Protein 7.5 Albumin 1.7 L TSH 1.41 D Urine Color Urine Appearance Urine pH Ur Specific [place] Urine Protein Urine Glucose (UA) Urine Ketones Urine Blood Urine Nitrite Urine Bilirubin Urine Urobilinogen Ur Leukocyte Esterase Urine WBC (Auto) Urine RBC (Auto) Urine Casts (Auto) U Epithel Cells (Auto) Urine Bacteria (Auto) Random Vancomycin Salicylates < 1.7 L Acetaminophen < 2.0 L Alcohol, Quantitative < 3.0 Acetone, Qual Positive small 1+ Blood Type Antibody Screen Prewarmed Antibody Srcn Antibody Identification Antigen Identification 02/21/19 02/21/19 02/21/19 15:10 15:10 20:30 WBC RBC Hgb Hct MCV MCH MCHC RDW Plt Count MPV Absolute Neuts (auto) Neutrophils % Lymphocytes % Monocytes % Eosinophils % Basophils % Nucleated RBC % PT with INR INR PTT (Actin FS) VBG pH POC VBG pCO2 POC VBG pO2 VBG HCO3 VBG O2 Sat (Bev) VBG Base Excess Sodium Potassium Chloride Carbon Dioxide Anion Gap BUN Creatinine Est GFR (CKD-EPI)AfAm Est GFR (CKD-EPI)NonAf Random Glucose Lactic Acid 1.6 Calcium Phosphorus Magnesium Total Bilirubin AST ALT Alkaline Phosphatase Ammonia 13.20 Troponin I B-Natriuretic Peptide Total Protein Albumin TSH Urine Color Urine Appearance Urine pH Ur Specific [place] Urine Protein Urine Glucose (UA) Urine Ketones Urine Blood Urine Nitrite Urine Bilirubin Urine Urobilinogen Ur Leukocyte Esterase Urine WBC (Auto) Urine RBC (Auto) Urine Casts (Auto) U Epithel Cells (Auto) Urine Bacteria (Auto) Random Vancomycin Salicylates Acetaminophen Alcohol, Quantitative Acetone, Qual Blood Type A POSITIVE Antibody Screen Positive H Prewarmed Antibody Srcn Negative Antibody Identification Cold auto Antigen Identification No Result Required. 02/22/19 02/22/19 02/22/19 05:40 05:40 05:40 WBC 10.2 H RBC 2.72 L Hgb 7.9 L Hct 25.2 L D MCV 92.9 MCH 29.0 MCHC 31.2 L RDW 17.7 H Plt Count 418 MPV 9.7 Absolute Neuts (auto) 7.8 Neutrophils % 76.9 Lymphocytes % 14.8 Monocytes % 5.5 Eosinophils % 2.3 D Basophils % 0.5 Nucleated RBC % 0 PT with INR 17.00 H INR 1.44 H PTT (Actin FS) 39.2 H VBG pH POC VBG pCO2 POC VBG pO2 VBG HCO3 VBG O2 Sat (Bev) VBG Base Excess Sodium Potassium Chloride Carbon Dioxide Anion Gap BUN Creatinine Est GFR (CKD-EPI)AfAm Est GFR (CKD-EPI)NonAf Random Glucose Lactic Acid Calcium Phosphorus Magnesium Total Bilirubin AST ALT Alkaline Phosphatase Ammonia Troponin I B-Natriuretic Peptide Total Protein Albumin TSH Urine Color Urine Appearance Urine pH Ur Specific [place] Urine Protein Urine Glucose (UA) Urine Ketones Urine Blood Urine Nitrite Urine Bilirubin Urine Urobilinogen Ur Leukocyte Esterase Urine WBC (Auto) Urine RBC (Auto) Urine Casts (Auto) U Epithel Cells (Auto) Urine Bacteria (Auto) Random Vancomycin 16.6 L Salicylates Acetaminophen Alcohol, Quantitative Acetone, Qual Blood Type Antibody Screen Prewarmed Antibody Srcn Antibody Identification Antigen Identification 02/22/19 02/22/19 05:40 06:01 WBC RBC Hgb Hct MCV MCH MCHC RDW Plt Count MPV Absolute Neuts (auto) Neutrophils % Lymphocytes % Monocytes % Eosinophils % Basophils % Nucleated RBC % PT with INR INR PTT (Actin FS) VBG pH POC VBG pCO2 POC VBG pO2 VBG HCO3 VBG O2 Sat (Bev) VBG Base Excess Sodium Cancelled 141 Potassium Cancelled 3.7 Chloride Cancelled 106 Carbon Dioxide Cancelled 30 Anion Gap Cancelled 5 L BUN Cancelled 57 H Creatinine Cancelled 4.3 H Est GFR (CKD-EPI)AfAm Cancelled 14.67 Est GFR (CKD-EPI)NonAf Cancelled 12.66 Random Glucose Cancelled 114 H Lactic Acid Calcium Cancelled 9.0 Phosphorus Cancelled 3.1 Magnesium Cancelled 2.6 H Total Bilirubin Cancelled 0.4 AST Cancelled 13 L ALT Cancelled 10 L Alkaline Phosphatase Cancelled 137 H Ammonia Troponin I B-Natriuretic Peptide Total Protein Cancelled 6.6 Albumin Cancelled 1.5 L TSH Urine Color Urine Appearance Urine pH Ur Specific [place] Urine Protein Urine Glucose (UA) Urine Ketones Urine Blood Urine Nitrite Urine Bilirubin Urine Urobilinogen Ur Leukocyte Esterase Urine WBC (Auto) Urine RBC (Auto) Urine Casts (Auto) U Epithel Cells (Auto) Urine Bacteria (Auto) Random Vancomycin Salicylates Acetaminophen Alcohol, Quantitative Acetone, Qual Blood Type Antibody Screen Prewarmed Antibody Srcn Antibody Identification Antigen Identification Active Medications Generic Name Dose Route Start Last Admin Trade Name Freq PRN Reason Stop Dose Admin Albuterol/Ipratropium 1 amp 02/21/19 19:04 Duoneb - NEB Q6H PRN SHORTNESS OF BREATH Allopurinol 100 mg 02/22/19 10:00 Zyloprim - PO DAILY [facility] Amino Acids 30 ml 02/21/19 22:00 02/22/19 06:50 Prosource No Carb Liquid Pkt PO Not Given TID [facility] Apixaban 2.5 mg 02/21/19 22:00 02/21/19 22:23 Eliquis - PO 2.5 mg BID [facility] Administration Atorvastatin Calcium 20 mg 02/21/19 22:00 02/21/19 22:23 Lipitor - PO 20 mg HS [facility]ANTE[facility] Administration Collagenase 1 applic 02/22/19 10:00 Santyl - TP DAILY [facility] Protocol Collagenase 1 applic 02/22/19 10:00 Santyl - TP DAILY [facility] Protocol Escitalopram Oxalate 10 mg 02/22/19 10:00 Lexapro - PO DAILY [facility] Gentamicin Sulfate 120 mg/ 103 mls @ 103 mls/hr 02/22/19 10:00 Sodium Chloride IVPB 02/22/19 10:59 ONCE ONE Protocol Meropenem 500 mg/ Dextrose 100 mls @ 200 mls/hr 02/22/19 09:15 IVPB Q24H [facility] Norepinephrine Bitartrate 8, 500 mls @ 6.94 mls/hr 02/22/19 10:45 000 mcg/ Dextrose IV ASDIR [facility] Protocol 0.03 MCG/KG/MIN Insulin Aspart 1 vial 02/22/19 07:00 02/22/19 08:53 Novolog Vial Sliding Scale - SQ Not Given TIDAC [facility] Protocol Lactobacillus Acidophilus 1 tab 02/22/19 10:00 Bacid - PO DAILY [facility] Megestrol Acetate 400 mg 02/22/19 10:00 Megace Oral Suspension - PO DAILY [facility] Midodrine 5 mg 02/23/19 10:00 Proamatine - PO SuTuThSa@1000 [facility] Midodrine 10 mg 02/22/19 10:00 Proamatine - PO MoWeFr@1000 [facility] Multivitamins/Minerals/Vitamin C 1 tab 02/22/19 10:00 Tab-A-Vit - PO DAILY [facility] Sevelamer Carbonate 1,600 mg 02/22/19 08:00 02/22/19 09:00 Renvela - PO Not Given TIDCM [facility] Tamsulosin HCl 0.4 mg 02/21/19 22:00 02/21/19 22:23 Flomax - PO 0.4 mg HS [facility]ANTE[facility] Administration ASSESSMENT/PLAN: Patient is a 73 year old male with past medical history of ESRD (on HD MWF), PVD , HLD, DM, COPD, bilateral gangrenous foot ulcer, [facility] and worsening wounds. Today, patient noted to be hypotensive and was transferred to the ICU for closer monitoring. #Neurology -lethargic, arousable to voice #Cardiovascular -Septic shock likely 2/2 gram negative bacteremia -Started on Levophed drip -Titrate pressors to keep MAP>65 -Hx of PVD and HLD -Vascular (Dr. Mcneil) consulted. #Pulmo -Hx of COPD -Supplemental O2 to keep SpO2>90% -Duonebs q6h PRN #GI -Will keep NPo pending swallow eval -Speech and swallow evaluation -Aspiration precautions. #Renal -ESRD on HD ([facility]) -Nephro (Dr. Henriquez) consulted. Recommendations appreciated. -Hold HD today. #ID -Septic shock 2/2 gram negative bacteremia likely 2/2 bilateral LE wounds -BLood cultures growing gram negative cher -Vanc and Zosyn given at the ED -ID (Dr. Manrique) consulted. REcommendations appreciated. -Hx of MRSA, VREF and E.coli ESBL from previous admissions and has received Zosyn and Augmentin -STart Meropenem 500mg daily -Gentamicin 120mg one dose given -Vascular surgery consulted for wound care. -Titrate pressors to keep MAP >65 #Endo -Hx of DM -Insulin sliding scale implemented -BGM TIDAC #Heme -Acute on chronic anemia likely 2/2 ESRD -Will monitor H/H closely -Leukocytosis likely 2/2 to infection #FEN -Not on any standing fluids -Routine bmp monitoring -NPO #Prophylaxis -Eliquis 2.5mg BID #Disposition -full code -ICU monitoring Dispo: We will continue to follow the patient. Thank you for this consultative opportunity. Visit type - Emergency Visit Emergency Visit: Yes ED Registration Date: 02/21/19 Care time: The patient presented to the Emergency Department on the above date and was hospitalized for further evaluation of their emergent condition. - New Patient This patient is new to me today: Yes Date on this admission: 02/22/19 - Critical Care Critical Care patient: Yes Total Critical Care Time (in minutes): 38 Critical Care Statement: The care of this patient involved high complexity decision making to prevent further life threatening deterioration of the patient 's condition and/or to evaluate & treat vital organ system(s) failure or risk of failure.
--- NOTE | 2019-02-22 10:52 | PROC ---
Central Line Insertion Indication: CVP Monitoring, Sepsis, Vasopressor Risks and Benefits Explained: No (acute decompensation) Consent on Chart: No (acute decompensation) Central Line: Triple Lumen Catheter Anesthesia: 1% Lidocaine Ultrasound Guided Assistance: Yes Position: Left Internal Jugular Post Insertion: Yes: Bilateral Breath Sounds, Bilateral Chest Expansion, Chest X-Ray Ordered Sterile Dressing Applied: Yes
[2019-02-22] MEDS: MEROPENEM 500 MG in DEXTROSE 5%-WATER 100 ML IVPB SCH (11:02)
--- NOTE | 2019-02-22 11:28 | CONSULT ---
Consult Consult Specialty:: Nephrology Reason for Consultation:: ESRD - History of Present Illness Chief Complaint: failure to thrive History of Present Illness: Pt is a 73 year old male with pmhx of esrd, lower ext ulcer, failure to thrive, gangrene, hypotension, pvd, cva, dm, copd and bph who was sent in for [place] for failure to thrive and decrease po intake. He has lower ext infected ulcers. Family had refused surgical therapy. He was found to be hypotensive. He is lethargic. Pt is now admitted to the ICU. He did not respond to fluid boluses. He will get a central line and start pressors. 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: CVA, Dementia Cardio/Vascular: Yes: AFIB, CAD (PVD), CHF, HTN, Hyperlipdemia Pulmonary: Yes: COPD Renal/: Yes: Renal Failure, Hemodialysis Infectious Disease: Yes: MRSA, VREF, Other (ecoli ESBL) Endocrine: Yes: Diabetes Mellitus - Past Surgical History Additional Surgical History: permacath - Alcohol/Substance Use Hx Alcohol Use: No - Smoking History Smoking history: Unknown if ever smoked Have you smoked in the past 12 months: No - Social History Usual Living Arrangement: Shelter ADL: Support Services History of Recent Travel: No Home Medications - Allergies Allergies/Adverse Reactions: Allergies Allergy/AdvReac Type Severity Reaction Status Date / Time watermelon Allergy Unknown Verified 02/21/19 14:44 melon Allergy Verified 02/21/19 14:44 No Known Drug Allergies Allergy Verified 02/21/19 14:44 - Home Medications Home Medications: Ambulatory Orders Albuterol 2.5/Ipratropium 0.5 [Duoneb -] 1 amp NEB Q6H PRN #0 amp 07/12/17 Allopurinol [Zyloprim -] 100 mg PO DAILY tablet 07/12/17 Atorvastatin Ca [Lipitor] 20 mg PO HS tablet 07/12/17 Collagenase Clostridium Hist. [Santyl -] 1 applic TP DAILY tube 09/06/18 Albuterol Sulfate [Proair Hfa] 2 puff IH Q6H PRN 10/29/18 Escitalopram Oxalate [Lexapro -] 10 mg PO DAILY 10/29/18 Folic Acid/Vit B Complex and C [Dialyvite Tablet] 1 each PO DAILY 10/29/18 Midodrine HCl 10 mg PO MOWEFR 10/29/18 Sevelamer Carbonate [Renvela -] 1,600 mg PO TID 10/29/18 Tamsulosin HCl [Flomax] 0.4 mg PO HS 10/29/18 Insulin Sliding Scale [Novolog Vial Sliding Scale -] 1 vial SQ TIDAC #1 vial Apixaban [Eliquis -] 5 mg PO BID #30 tablet MDD 2 11/19/18 Collagenase Clostridium Hist. [Santyl -] 1 applic TP DAILY #1 tube 01/17/19 Amoxicillin/Potassium Clav [Augmentin 500-125 Tablet] 1 each PO DAILY #7 tablet 02/06/19 Megestrol Acetate Oral Susp [Megace Liquid -] 400 mg PO DAILY #20 cup 02/06/19 Protein Supplement [Prosource] 275 gm PO TID #60 powder 02/06/19 Lactobacillus Acidophilus [Bacid -] 1 tab PO DAILY #60 tab 02/19/19 Midodrine HCl [Proamatine -] 5 mg PO SuTuThSa #60 tablet 02/19/19 traMADol HCL [Ultram -] 50 mg PO Q6H PRN #60 tablet MDD 4 02/19/19 Family Disease History - Family Disease History Family History: Unable to Obtain Review of Systems Unable to obtain ROS, reason: lethargy Findings/Remarks: pt is lethargic Physical Exam Vital Signs: Vital Signs Temperature 98.7 F 02/22/19 02:00 Pulse Rate 83 02/22/19 07:00 Respiratory Rate 21 H 02/22/19 07:00 Blood Pressure 84/46 L 02/22/19 07:00 O2 Sat by Pulse Oximetry (%) 99 02/21/19 19:01 Constitutional: Yes: Calm Eyes: Yes: Conjunctiva Clear Cardiovascular: Yes: S1, S2 Respiratory: Yes: On Nasal O2 Gastrointestinal: Yes: Soft Renal/: Yes: Incontinence Musculoskeletal: Yes: Muscle Weakness Edema: No Neurological: Yes: Lethargy Labs: CBC, BMP 02/22/19 05:40 02/22/19 06:01 Laboratory Tests 02/21/19 02/21/19 02/21/19 13:10 15:10 15:10 WBC Hgb 9.2 L Sodium Potassium Chloride Anion Gap BUN 51 H Creatinine 4.1 H Lactic Acid 2.3 H* 02/21/19 02/22/19 02/22/19 20:30 05:40 06:01 WBC 10.2 H Hgb 7.9 L Sodium 141 Potassium 3.7 Chloride 106 Anion Gap 5 L BUN 57 H Creatinine 4.3 H Lactic Acid 1.6 Imaging - Results Chest X-ray: Report Reviewed Assessment/Plan Current Medications Generic Name Dose Route Start Last Admin Trade Name Freq PRN Reason Stop Dose Admin Albuterol/Ipratropium 1 amp 02/21/19 19:04 Duoneb - NEB Q6H PRN SHORTNESS OF BREATH Allopurinol 100 mg 02/22/19 10:00 Zyloprim - PO DAILY [facility] Amino Acids 30 ml 02/21/19 22:00 02/22/19 06:50 Prosource No Carb Liquid Pkt PO Not Given TID CHANTELL Apixaban 2.5 mg 02/21/19 22:00 02/21/19 22:23 Eliquis - PO 2.5 mg BID CHANTELL Administration Atorvastatin Calcium 20 mg 02/21/19 22:00 02/21/19 22:23 Lipitor - PO 20 mg HS CHANTELL Administration Collagenase 1 applic 02/22/19 10:00 Santyl - TP DAILY [facility] Protocol Collagenase 1 applic 02/22/19 10:00 Santyl - TP DAILY [facility] Protocol Escitalopram Oxalate 10 mg 02/22/19 10:00 Lexapro - PO DAILY [facility] Meropenem 500 mg/ Dextrose 100 mls @ 200 mls/hr 02/22/19 09:15 02/22/19 11:02 IVPB 200 mls/hr Q24H [facility] Administration Norepinephrine Bitartrate 8, 500 mls @ 6.94 mls/hr 02/22/19 10:45 000 mcg/ Dextrose IV ASDIR [facility] Protocol 0.03 MCG/KG/MIN Sodium Chloride 250 mls @ 250 mls/hr 02/22/19 11:30 Normal Saline - IV 02/22/19 12:29 ASDIR STA Insulin Aspart 1 vial 02/22/19 07:00 02/22/19 08:53 Novolog Vial Sliding Scale - SQ Not Given TIDAC [facility] Protocol Lactobacillus Acidophilus 1 tab 02/22/19 10:00 Bacid - PO DAILY [facility] Megestrol Acetate 400 mg 02/22/19 10:00 Megace Oral Suspension - PO DAILY [facility] Midodrine 5 mg 06/01/19 10:00 Proamatine - PO SuTuThSa@1000 [facility] Midodrine 10 mg 02/22/19 10:00 Proamatine - PO MoWeFr@1000 [facility] Multivitamins/Minerals/Vitamin C 1 tab 02/22/19 10:00 Tab-A-Vit - PO DAILY [facility] Sevelamer Carbonate 1,600 mg 02/22/19 08:00 02/22/19 09:00 Renvela - PO Not Given TIDCM [facility] Tamsulosin HCl 0.4 mg 02/21/19 22:00 02/21/19 22:23 Flomax - PO 0.4 mg HS CHANTELL Administration Impression 1. ESRD 2. gangrene 3. DM 4. hyperlipidemia 5. HTN 6. gout 7. proteinuria 8. hypotension 9. sepsis Plan - will hold off HD today - evaluate for dialysis tomorrow - pt to start pressors for hypotension, discussed with ICU team - follow cultures - abx per ID - check cortisol level
[2019-02-22] MEDS ORDERED: SODIUM CHLORIDE 250 ML IV STA (11:30)
[2019-02-22] MEDS ORDERED: SODIUM CHLORIDE 250 ML IV PRN (11:32)
--- NOTE | 2019-02-22 11:40 | CONSULT ---
Admitting History and Physical - Primary Care Physician PCP: Simon Alcaraz - Admission History of Present Illness: 73 y/o man with h/o dementia, CVA, DM, COPD, ESRD, gout, HTN, HLP, recent admission 01/31-02/19 during which he was treated for sepsis due to infected b/l feet ulcers/gangrene. He was sent form [facility] due to poor po intake, and worsening of ulcers. Recent hospitalization at [facility] for gangrenous wounds on his feet- family refused debridement and amputation Seen during Oct 2018 admission,PEG was considered but improved significantly, and seemed to be tolerating puree/nectar thick liquid upon d/c. Readmitted repeatedly since then, PO tolerance?,not reconsulted until now. Per transfer summary, pt was on Puree/nectar thick liquid at [facility]. 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 Cardiovascular: Yes: AFIB, CAD (PVD), CHF, HTN, Hyperlipdemia Pulmonary: Yes: COPD Renal/: Yes: Renal Failure, Hemodialysis Infectious Disease: Yes: MRSA, VREF, Other (ecoli ESBL) Endocrine: Yes: Diabetes Mellitus - Smoking History Smoking history: Unknown if ever smoked Have you smoked in the past 12 months: No - Alcohol/Substance Use Hx Alcohol Use: No - Social History ADL: Support Services History of Recent Travel: No History - Admission Reason For Visit: OPEN WOUND OF FOOT, SEPSIS - Diagnostics X-ray: Report Reviewed - General Mental Status: Lethargic - Hearing Hearing: Normal Speech Evaluation - Communication Primary Language: CROATIAN - Language/Auditory Comprehension Observation: Comprehends Conversational Speech: Yes (yes.) - Swallow Evaluation/Bedside Assessment A-P Transit: Impaired Recommendations - Speech Evaluation, Impression/Plan Impression: Per transfer summary, pt was on Puree/nectar thick liquid at [facility]. Too lethargic for PO trials. On Non rebreather - Dysphagia Impressions/Plan *Silent aspiration: cannot be R/O at bedside - Recommendations Diet Consistency: NPO (due to lethargy. If pt improves over the weekend, following swallowing assessment by staff, safest diet is Dys Puree/honey thick liquid on tsp.)
--- NOTE | 2019-02-22 11:44 | PN ---
Teaching Attending Note Name of Resident: Malina Garcia ATTENDING PHYSICIAN STATEMENT I saw and evaluated the patient. I reviewed the resident's note and discussed the case with the resident. I agree with the resident's findings and plan as documented. SUBJECTIVE: Patient seen and examined in the ICU. Lethargic. Hypotensive with MAP in the 40's. Patient not able to provide consent and no family available. Left IJ inserted under direct US guidance for emergency access. Foul smelling soft tissues/gangrene that have progressively worsening. Being started on NE for hemodynamic support. Intake & Output 02/19/19 02/20/19 02/21/19 02/22/19 23:59 23:59 23:59 23:59 Intake Total 250 50 Balance 250 50 Weight 136 lb Last Vital Signs Temp Pulse Resp BP Pulse Ox 98.7 F 83 21 H 84/46 L 99 02/22/19 02:00 02/22/19 07:00 02/22/19 07:00 02/22/19 07:00 02/21/19 19:01 Active Medications Albuterol/Ipratropium (Duoneb -) 1 amp NEB Q6H PRN PRN Reason: SHORTNESS OF BREATH Allopurinol (Zyloprim -) 100 mg PO DAILY [facility] Amino Acids (Prosource No Carb Liquid Pkt) 30 ml PO TID [facility] Last Admin: 02/22/19 06:50 Dose: Not Given Apixaban (Eliquis -) 2.5 mg PO BID [facility] Last Admin: 02/21/19 22:23 Dose: 2.5 mg Atorvastatin Calcium (Lipitor -) 20 mg PO HS [facility] Last Admin: 02/21/19 22:23 Dose: 20 mg Collagenase (Santyl -) 1 applic TP DAILY [facility]; Protocol Collagenase (Santyl -) 1 applic TP DAILY [facility]; Protocol Escitalopram Oxalate (Lexapro -) 10 mg PO DAILY [facility] Meropenem 500 mg/ Dextrose 100 mls @ 200 mls/hr IVPB Q24H [facility] Last Admin: 02/22/19 11:02 Dose: 200 mls/hr Norepinephrine Bitartrate 8, (000 mcg/ Dextrose) 500 mls @ 6.94 mls/hr IV ASDIR [facility]; Protocol Sodium Chloride (Normal Saline -) 250 mls @ 250 mls/hr IV ASDIR STA Stop: 02/22/19 12:29 Insulin Aspart (Novolog Vial Sliding Scale -) 1 vial SQ TIDAC [facility]; Protocol Last Admin: 02/22/19 08:53 Dose: Not Given Lactobacillus Acidophilus (Bacid -) 1 tab PO DAILY [facility] Megestrol Acetate (Megace Oral Suspension -) 400 mg PO DAILY [facility] Midodrine (Proamatine -) 5 mg PO SuTuThSa@1000 [facility] Midodrine (Proamatine -) 10 mg PO MoWeFr@1000 [facility] Multivitamins/Minerals/Vitamin C (Tab-A-Vit -) 1 tab PO DAILY [facility] Sevelamer Carbonate (Renvela -) 1,600 mg PO TIDCM [facility] Last Admin: 02/22/19 09:00 Dose: Not Given Tamsulosin HCl (Flomax -) 0.4 mg PO HS [facility] Last Admin: 02/21/19 22:23 Dose: 0.4 mg Constitutional: Yes: Lethargic, poorly responsive Eyes: Yes: Conjunctiva Clear HENT: Yes: Atraumatic, Normocephalic Neck: Yes: Supple Cardiovascular: Yes: Regular Rate and Rhythm, Other (per[place]ath site no erythema , no drainage) Respiratory: Yes: bilateral rhonchi Gastrointestinal: Yes: Normal Bowel Sounds, Soft Extremities: Yes: Other (contracted, foulsmelling gangrenous wounds both feet) Edema: Yes Edema: LLE: Trace, RLE: Trace Labs: Laboratory Results - last 24 hr 02/21/19 02/21/19 02/21/19 13:10 14:50 15:10 WBC 9.4 RBC 3.21 L Hgb 9.2 L Hct 30.3 L D MCV 94.4 MCH 28.6 MCHC 30.3 L RDW 17.5 H Plt Count 432 D MPV 9.4 Absolute Neuts (auto) 7.2 Neutrophils % 76.1 Lymphocytes % 16.6 Monocytes % 6.0 Eosinophils % 0.9 Basophils % 0.4 Nucleated RBC % 0 PT with INR INR PTT (Actin FS) VBG pH POC VBG pCO2 POC VBG pO2 VBG HCO3 VBG O2 Sat (Bev) VBG Base Excess Sodium Potassium Chloride Carbon Dioxide Anion Gap BUN Creatinine Est GFR (CKD-EPI)AfAm Est GFR (CKD-EPI)NonAf Random Glucose Lactic Acid 2.3 H* Calcium Phosphorus Magnesium Total Bilirubin AST ALT Alkaline Phosphatase Ammonia Troponin I B-Natriuretic Peptide Total Protein Albumin TSH Urine Color Dk yellow Urine Appearance Clear Urine pH 5.0 Ur Specific [place] 1.026 Urine Protein 2+ H Urine Glucose (UA) Negative Urine Ketones Trace H Urine Blood Negative Urine Nitrite Negative Urine Bilirubin 2+ H Urine Urobilinogen 1.0 Ur Leukocyte Esterase 1+ H Urine WBC (Auto) 4 Urine RBC (Auto) 10 Urine Casts (Auto) 4 U Epithel Cells (Auto) 0.5 Urine Bacteria (Auto) 2.9 Random Vancomycin Salicylates Acetaminophen Alcohol, Quantitative Acetone, Qual Blood Type Antibody Screen Prewarmed Antibody Srcn Antibody Identification Antigen Identification 02/21/19 02/21/19 02/21/19 15:10 15:10 15:10 WBC RBC Hgb Hct MCV MCH MCHC RDW Plt Count MPV Absolute Neuts (auto) Neutrophils % Lymphocytes % Monocytes % Eosinophils % Basophils % Nucleated RBC % PT with INR 17.10 H INR 1.44 H PTT (Actin FS) 40.1 H VBG pH 7.39 POC VBG pCO2 54.8 H POC VBG pO2 14.0 L VBG HCO3 32.1 H VBG O2 Sat (Bev) 10.7 L VBG Base Excess 6.8 H Sodium 144 Potassium 4.1 Chloride 104 Carbon Dioxide 32 Anion Gap 8 BUN 51 H Creatinine 4.1 H Est GFR (CKD-EPI)AfAm 15.54 Est GFR (CKD-EPI)NonAf 13.41 Random Glucose 101 Lactic Acid Calcium 9.8 Phosphorus 2.5 Magnesium 2.7 H Total Bilirubin 0.4 AST 15 ALT 12 L Alkaline Phosphatase 160 H Ammonia Troponin I < 0.02 B-Natriuretic Peptide 9934.4 H Total Protein 7.5 Albumin 1.7 L TSH 1.41 D Urine Color Urine Appearance Urine pH Ur Specific [place] Urine Protein Urine Glucose (UA) Urine Ketones Urine Blood Urine Nitrite Urine Bilirubin Urine Urobilinogen Ur Leukocyte Esterase Urine WBC (Auto) Urine RBC (Auto) Urine Casts (Auto) U Epithel Cells (Auto) Urine Bacteria (Auto) Random Vancomycin Salicylates < 1.7 L Acetaminophen < 2.0 L Alcohol, Quantitative < 3.0 Acetone, Qual Positive small 1+ Blood Type Antibody Screen Prewarmed Antibody Srcn Antibody Identification Antigen Identification 02/21/19 02/21/19 02/21/19 15:10 15:10 20:30 WBC RBC Hgb Hct MCV MCH MCHC RDW Plt Count MPV Absolute Neuts (auto) Neutrophils % Lymphocytes % Monocytes % Eosinophils % Basophils % Nucleated RBC % PT with INR INR PTT (Actin FS) VBG pH POC VBG pCO2 POC VBG pO2 VBG HCO3 VBG O2 Sat (Bev) VBG Base Excess Sodium Potassium Chloride Carbon Dioxide Anion Gap BUN Creatinine Est GFR (CKD-EPI)AfAm Est GFR (CKD-EPI)NonAf Random Glucose Lactic Acid 1.6 Calcium Phosphorus Magnesium Total Bilirubin AST ALT Alkaline Phosphatase Ammonia 13.20 Troponin I B-Natriuretic Peptide Total Protein Albumin TSH Urine Color Urine Appearance Urine pH Ur Specific [place] Urine Protein Urine Glucose (UA) Urine Ketones Urine Blood Urine Nitrite Urine Bilirubin Urine Urobilinogen Ur Leukocyte Esterase Urine WBC (Auto) Urine RBC (Auto) Urine Casts (Auto) U Epithel Cells (Auto) Urine Bacteria (Auto) Random Vancomycin Salicylates Acetaminophen Alcohol, Quantitative Acetone, Qual Blood Type A POSITIVE Antibody Screen Positive H Prewarmed Antibody Srcn Negative Antibody Identification Cold auto Antigen Identification No Result Required. 02/22/19 02/22/19 02/22/19 05:40 05:40 05:40 WBC 10.2 H RBC 2.72 L Hgb 7.9 L Hct 25.2 L D MCV 92.9 MCH 29.0 MCHC 31.2 L RDW 17.7 H Plt Count 418 MPV 9.7 Absolute Neuts (auto) 7.8 Neutrophils % 76.9 Lymphocytes % 14.8 Monocytes % 5.5 Eosinophils % 2.3 D Basophils % 0.5 Nucleated RBC % 0 PT with INR 17.00 H INR 1.44 H PTT (Actin FS) 39.2 H VBG pH POC VBG pCO2 POC VBG pO2 VBG HCO3 VBG O2 Sat (Bev) VBG Base Excess Sodium Potassium Chloride Carbon Dioxide Anion Gap BUN Creatinine Est GFR (CKD-EPI)AfAm Est GFR (CKD-EPI)NonAf Random Glucose Lactic Acid Calcium Phosphorus Magnesium Total Bilirubin AST ALT Alkaline Phosphatase Ammonia Troponin I B-Natriuretic Peptide Total Protein Albumin TSH Urine Color Urine Appearance Urine pH Ur Specific [place] Urine Protein Urine Glucose (UA) Urine Ketones Urine Blood Urine Nitrite Urine Bilirubin Urine Urobilinogen Ur Leukocyte Esterase Urine WBC (Auto) Urine RBC (Auto) Urine Casts (Auto) U Epithel Cells (Auto) Urine Bacteria (Auto) Random Vancomycin 16.6 L Salicylates Acetaminophen Alcohol, Quantitative Acetone, Qual Blood Type Antibody Screen Prewarmed Antibody Srcn Antibody Identification Antigen Identification 02/22/19 02/22/19 05:40 06:01 WBC RBC Hgb Hct MCV MCH MCHC RDW Plt Count MPV Absolute Neuts (auto) Neutrophils % Lymphocytes % Monocytes % Eosinophils % Basophils % Nucleated RBC % PT with INR INR PTT (Actin FS) VBG pH POC VBG pCO2 POC VBG pO2 VBG HCO3 VBG O2 Sat (Bev) VBG Base Excess Sodium Cancelled 141 Potassium Cancelled 3.7 Chloride Cancelled 106 Carbon Dioxide Cancelled 30 Anion Gap Cancelled 5 L BUN Cancelled 57 H Creatinine Cancelled 4.3 H Est GFR (CKD-EPI)AfAm Cancelled 14.67 Est GFR (CKD-EPI)NonAf Cancelled 12.66 Random Glucose Cancelled 114 H Lactic Acid Calcium Cancelled 9.0 Phosphorus Cancelled 3.1 Magnesium Cancelled 2.6 H Total Bilirubin Cancelled 0.4 AST Cancelled 13 L ALT Cancelled 10 L Alkaline Phosphatase Cancelled 137 H Ammonia Troponin I B-Natriuretic Peptide Total Protein Cancelled 6.6 Albumin Cancelled 1.5 L TSH Urine Color Urine Appearance Urine pH Ur Specific [place] Urine Protein Urine Glucose (UA) Urine Ketones Urine Blood Urine Nitrite Urine Bilirubin Urine Urobilinogen Ur Leukocyte Esterase Urine WBC (Auto) Urine RBC (Auto) Urine Casts (Auto) U Epithel Cells (Auto) Urine Bacteria (Auto) Random Vancomycin Salicylates Acetaminophen Alcohol, Quantitative Acetone, Qual Blood Type Antibody Screen Prewarmed Antibody Srcn Antibody Identification Antigen Identification Laboratory Results - last 24 hr 02/21/19 02/21/19 02/21/19 13:10 14:50 15:10 WBC 9.4 RBC 3.21 L Hgb 9.2 L Hct 30.3 L D MCV 94.4 MCH 28.6 MCHC 30.3 L RDW 17.5 H Plt Count 432 D MPV 9.4 Absolute Neuts (auto) 7.2 Neutrophils % 76.1 Lymphocytes % 16.6 Monocytes % 6.0 Eosinophils % 0.9 Basophils % 0.4 Nucleated RBC % 0 PT with INR INR PTT (Actin FS) VBG pH POC VBG pCO2 POC VBG pO2 VBG HCO3 VBG O2 Sat (Bev) VBG Base Excess Sodium Potassium Chloride Carbon Dioxide Anion Gap BUN Creatinine Est GFR (CKD-EPI)AfAm Est GFR (CKD-EPI)NonAf Random Glucose Lactic Acid 2.3 H* Calcium Phosphorus Magnesium Total Bilirubin AST ALT Alkaline Phosphatase Ammonia Troponin I B-Natriuretic Peptide Total Protein Albumin TSH Urine Color Dk yellow Urine Appearance Clear Urine pH 5.0 Ur Specific [place] 1.026 Urine Protein 2+ H Urine Glucose (UA) Negative Urine Ketones Trace H Urine Blood Negative Urine Nitrite Negative Urine Bilirubin 2+ H Urine Urobilinogen 1.0 Ur Leukocyte Esterase 1+ H Urine WBC (Auto) 4 Urine RBC (Auto) 10 Urine Casts (Auto) 4 U Epithel Cells (Auto) 0.5 Urine Bacteria (Auto) 2.9 Random Vancomycin Salicylates Acetaminophen Alcohol, Quantitative Acetone, Qual Blood Type Antibody Screen Prewarmed Antibody Srcn Antibody Identification Antigen Identification 02/21/19 02/21/19 02/21/19 15:10 15:10 15:10 WBC RBC Hgb Hct MCV MCH MCHC RDW Plt Count MPV Absolute Neuts (auto) Neutrophils % Lymphocytes % Monocytes % Eosinophils % Basophils % Nucleated RBC % PT with INR 17.10 H INR 1.44 H PTT (Actin FS) 40.1 H VBG pH 7.39 POC VBG pCO2 54.8 H POC VBG pO2 14.0 L VBG HCO3 32.1 H VBG O2 Sat (Bev) 10.7 L VBG Base Excess 6.8 H Sodium 144 Potassium 4.1 Chloride 104 Carbon Dioxide 32 Anion Gap 8 BUN 51 H Creatinine 4.1 H Est GFR (CKD-EPI)AfAm 15.54 Est GFR (CKD-EPI)NonAf 13.41 Random Glucose 101 Lactic Acid Calcium 9.8 Phosphorus 2.5 Magnesium 2.7 H Total Bilirubin 0.4 AST 15 ALT 12 L Alkaline Phosphatase 160 H Ammonia Troponin I < 0.02 B-Natriuretic Peptide 9934.4 H Total Protein 7.5 Albumin 1.7 L TSH 1.41 D Urine Color Urine Appearance Urine pH Ur Specific [place] Urine Protein Urine Glucose (UA) Urine Ketones Urine Blood Urine Nitrite Urine Bilirubin Urine Urobilinogen Ur Leukocyte Esterase Urine WBC (Auto) Urine RBC (Auto) Urine Casts (Auto) U Epithel Cells (Auto) Urine Bacteria (Auto) Random Vancomycin Salicylates < 1.7 L Acetaminophen < 2.0 L Alcohol, Quantitative < 3.0 Acetone, Qual Positive small 1+ Blood Type Antibody Screen Prewarmed Antibody Srcn Antibody Identification Antigen Identification 02/21/19 02/21/19 02/21/19 15:10 15:10 20:30 WBC RBC Hgb Hct MCV MCH MCHC RDW Plt Count MPV Absolute Neuts (auto) Neutrophils % Lymphocytes % Monocytes % Eosinophils % Basophils % Nucleated RBC % PT with INR INR PTT (Actin FS) VBG pH POC VBG pCO2 POC VBG pO2 VBG HCO3 VBG O2 Sat (Bev) VBG Base Excess Sodium Potassium Chloride Carbon Dioxide Anion Gap BUN Creatinine Est GFR (CKD-EPI)AfAm Est GFR (CKD-EPI)NonAf Random Glucose Lactic Acid 1.6 Calcium Phosphorus Magnesium Total Bilirubin AST ALT Alkaline Phosphatase Ammonia 13.20 Troponin I B-Natriuretic Peptide Total Protein Albumin TSH Urine Color Urine Appearance Urine pH Ur Specific [place] Urine Protein Urine Glucose (UA) Urine Ketones Urine Blood Urine Nitrite Urine Bilirubin Urine Urobilinogen Ur Leukocyte Esterase Urine WBC (Auto) Urine RBC (Auto) Urine Casts (Auto) U Epithel Cells (Auto) Urine Bacteria (Auto) Random Vancomycin Salicylates Acetaminophen Alcohol, Quantitative Acetone, Qual Blood Type A POSITIVE Antibody Screen Positive H Prewarmed Antibody Srcn Negative Antibody Identification Cold auto Antigen Identification No Result Required. 02/22/19 02/22/19 02/22/19 05:40 05:40 05:40 WBC 10.2 H RBC 2.72 L Hgb 7.9 L Hct 25.2 L D MCV 92.9 MCH 29.0 MCHC 31.2 L RDW 17.7 H Plt Count 418 MPV 9.7 Absolute Neuts (auto) 7.8 Neutrophils % 76.9 Lymphocytes % 14.8 Monocytes % 5.5 Eosinophils % 2.3 D Basophils % 0.5 Nucleated RBC % 0 PT with INR 17.00 H INR 1.44 H PTT (Actin FS) 39.2 H VBG pH POC VBG pCO2 POC VBG pO2 VBG HCO3 VBG O2 Sat (Bev) VBG Base Excess Sodium Potassium Chloride Carbon Dioxide Anion Gap BUN Creatinine Est GFR (CKD-EPI)AfAm Est GFR (CKD-EPI)NonAf Random Glucose Lactic Acid Calcium Phosphorus Magnesium Total Bilirubin AST ALT Alkaline Phosphatase Ammonia Troponin I B-Natriuretic Peptide Total Protein Albumin TSH Urine Color Urine Appearance Urine pH Ur Specific [place] Urine Protein Urine Glucose (UA) Urine Ketones Urine Blood Urine Nitrite Urine Bilirubin Urine Urobilinogen Ur Leukocyte Esterase Urine WBC (Auto) Urine RBC (Auto) Urine Casts (Auto) U Epithel Cells (Auto) Urine Bacteria (Auto) Random Vancomycin 16.6 L Salicylates Acetaminophen Alcohol, Quantitative Acetone, Qual Blood Type Antibody Screen Prewarmed Antibody Srcn Antibody Identification Antigen Identification 02/22/19 02/22/19 05:40 06:01 WBC RBC Hgb Hct MCV MCH MCHC RDW Plt Count MPV Absolute Neuts (auto) Neutrophils % Lymphocytes % Monocytes % Eosinophils % Basophils % Nucleated RBC % PT with INR INR PTT (Actin FS) VBG pH POC VBG pCO2 POC VBG pO2 VBG HCO3 VBG O2 Sat (Bev) VBG Base Excess Sodium Cancelled 141 Potassium Cancelled 3.7 Chloride Cancelled 106 Carbon Dioxide Cancelled 30 Anion Gap Cancelled 5 L BUN Cancelled 57 H Creatinine Cancelled 4.3 H Est GFR (CKD-EPI)AfAm Cancelled 14.67 Est GFR (CKD-EPI)NonAf Cancelled 12.66 Random Glucose Cancelled 114 H Lactic Acid Calcium Cancelled 9.0 Phosphorus Cancelled 3.1 Magnesium Cancelled 2.6 H Total Bilirubin Cancelled 0.4 AST Cancelled 13 L ALT Cancelled 10 L Alkaline Phosphatase Cancelled 137 H Ammonia Troponin I B-Natriuretic Peptide Total Protein Cancelled 6.6 Albumin Cancelled 1.5 L TSH Urine Color Urine Appearance Urine pH Ur Specific [place] Urine Protein Urine Glucose (UA) Urine Ketones Urine Blood Urine Nitrite Urine Bilirubin Urine Urobilinogen Ur Leukocyte Esterase Urine WBC (Auto) Urine RBC (Auto) Urine Casts (Auto) U Epithel Cells (Auto) Urine Bacteria (Auto) Random Vancomycin Salicylates Acetaminophen Alcohol, Quantitative Acetone, Qual Blood Type Antibody Screen Prewarmed Antibody Srcn Antibody Identification Antigen Identification Imaging - Results Chest X-ray: Report Reviewed, Image Reviewed (no infiltrate) Problem List - Problems (1) Gram negative sepsis Code(s): A41.50 - GRAM-NEGATIVE SEPSIS, UNSPECIFIED (2) Gangrene of both feet Code(s): I96 - GANGRENE, NOT ELSEWHERE CLASSIFIED (3) ESRD (end stage renal disease) on dialysis Code(s): N18.6 - END STAGE RENAL DISEASE; Z99.2 - DEPENDENCE ON RENAL DIALYSIS (4) MRSA (methicillin resistant 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 Would be appropriate for comfort care measures. Dr Palmer Critical care time spent in reviewing chart, evaluating patient and formulating plan - 36 minutes.
[2019-02-22] MEDS: NOREPINEPHRINE BITARTRATE 8,000 MCG in DEXTROSE 5%-WATER - 492 ML IV SCH (12:15)
[2019-02-22] MEDS: MIDODRINE HCL 5 MG TABLET PO SCH (12:39)
[2019-02-22] MEDS: APIXABAN 2.5 MG TABLET PO SCH ×2 (12:40→21:45)
[2019-02-22] MEDS: ESCITALOPRAM OXALATE 10 MG TABLET (FP) PO SCH (12:40)
[2019-02-22] MEDS: MEGESTROL ACETATE 400 MG/10 ML UNIT DOSE CUP PO SCH (12:40)
[2019-02-22] MEDS: LACTOBACILLUS ACIDOPHILUS 1 TABLET PO SCH (12:40)
[2019-02-22] MEDS: MULTIVITAMINS (DAILY MVI) TABLET (FP) PO SCH (12:41)
[2019-02-22] MEDS: ALLOPURINOL 100 MG TABLET (FP) PO SCH (12:42)
[2019-02-22] MEDS ORDERED: DEXTROSE 50%-WATER - 25 GM/50 ML VIAL IVPUSH ONE ×2 (12:49→14:32)
[2019-02-22] MEDS ORDERED: DEXTROSE 50%-WATER 25 GM/50 ML DISP.SYRIN ONE ×2 (12:55→14:33)
[2019-02-22] MEDS: COLLAGENASE CLOSTRIDIUM HIST. 30 GRAMS TUBE TP SCH ×2 (13:39→13:41)
--- NOTE | 2019-02-22 14:47 | PN ---
Physical Exam: SUBJECTIVE: Patient seen and examined at bedside. noted hypotension...septic shock requiring pressors and ICU. OBJECTIVE: Vital Signs Period Temp Pulse Resp BP Sys/Zamorano Pulse Ox Last 24 Hr 97.9 F-98.7 F 76-91 15-24 77-101/46-74 92-99 GENERAL: lethargic groggy. arousable to voice EARS, NOSE, THROAT: dry mucous membranes. LUNGS: CTAB HEART: RRR s1s2 normal ABDOMEN: Soft, nontender, not distended, normoactive bowel sounds, ulcer present on sacrum unstagable with foul discharge, scrotum has ulcer no discharge MUSCULOSKELETAL: Normal range of motion at all joints. No bony deformities or tenderness. No CVA tenderness. UPPER EXTREMITIES: 2+ pulses, warm, well-perfused. LOWER EXTREMITIES: b/l wet gangrene with fouls smelling discharge SKIN: Warm, dry, Neuo: lethargic, responsive to pain. Laboratory Results - last 24 hr 02/21/19 02/21/19 02/21/19 13:10 14:50 15:10 WBC 9.4 RBC 3.21 L Hgb 9.2 L Hct 30.3 L D MCV 94.4 MCH 28.6 MCHC 30.3 L RDW 17.5 H Plt Count 432 D MPV 9.4 Absolute Neuts (auto) 7.2 Neutrophils % 76.1 Lymphocytes % 16.6 Monocytes % 6.0 Eosinophils % 0.9 Basophils % 0.4 Nucleated RBC % 0 PT with INR INR PTT (Actin FS) VBG pH POC VBG pCO2 POC VBG pO2 VBG HCO3 VBG O2 Sat (Bev) VBG Base Excess Sodium Potassium Chloride Carbon Dioxide Anion Gap BUN Creatinine Est GFR (CKD-EPI)AfAm Est GFR (CKD-EPI)NonAf POC Glucometer Random Glucose Lactic Acid 2.3 H* Calcium Phosphorus Magnesium Total Bilirubin AST ALT Alkaline Phosphatase Ammonia Troponin I B-Natriuretic Peptide Total Protein Albumin TSH Urine Color Dk yellow Urine Appearance Clear Urine pH 5.0 Ur Specific [place] 1.026 Urine Protein 2+ H Urine Glucose (UA) Negative Urine Ketones Trace H Urine Blood Negative Urine Nitrite Negative Urine Bilirubin 2+ H Urine Urobilinogen 1.0 Ur Leukocyte Esterase 1+ H Urine WBC (Auto) 4 Urine RBC (Auto) 10 Urine Casts (Auto) 4 U Epithel Cells (Auto) 0.5 Urine Bacteria (Auto) 2.9 Random Vancomycin Salicylates Acetaminophen Alcohol, Quantitative Acetone, Qual Blood Type Antibody Screen Prewarmed Antibody Srcn Antibody Identification Antigen Identification 02/21/19 02/21/19 02/21/19 15:10 15:10 15:10 WBC RBC Hgb Hct MCV MCH MCHC RDW Plt Count MPV Absolute Neuts (auto) Neutrophils % Lymphocytes % Monocytes % Eosinophils % Basophils % Nucleated RBC % PT with INR 17.10 H INR 1.44 H PTT (Actin FS) 40.1 H VBG pH 7.39 POC VBG pCO2 54.8 H POC VBG pO2 14.0 L VBG HCO3 32.1 H VBG O2 Sat (Bev) 10.7 L VBG Base Excess 6.8 H Sodium 144 Potassium 4.1 Chloride 104 Carbon Dioxide 32 Anion Gap 8 BUN 51 H Creatinine 4.1 H Est GFR (CKD-EPI)AfAm 15.54 Est GFR (CKD-EPI)NonAf 13.41 POC Glucometer Random Glucose 101 Lactic Acid Calcium 9.8 Phosphorus 2.5 Magnesium 2.7 H Total Bilirubin 0.4 AST 15 ALT 12 L Alkaline Phosphatase 160 H Ammonia Troponin I < 0.02 B-Natriuretic Peptide 9934.4 H Total Protein 7.5 Albumin 1.7 L TSH 1.41 D Urine Color Urine Appearance Urine pH Ur Specific [place] Urine Protein Urine Glucose (UA) Urine Ketones Urine Blood Urine Nitrite Urine Bilirubin Urine Urobilinogen Ur Leukocyte Esterase Urine WBC (Auto) Urine RBC (Auto) Urine Casts (Auto) U Epithel Cells (Auto) Urine Bacteria (Auto) Random Vancomycin Salicylates < 1.7 L Acetaminophen < 2.0 L Alcohol, Quantitative < 3.0 Acetone, Qual Positive small 1+ Blood Type Antibody Screen Prewarmed Antibody Srcn Antibody Identification Antigen Identification 02/21/19 02/21/19 02/21/19 15:10 15:10 20:30 WBC RBC Hgb Hct MCV MCH MCHC RDW Plt Count MPV Absolute Neuts (auto) Neutrophils % Lymphocytes % Monocytes % Eosinophils % Basophils % Nucleated RBC % PT with INR INR PTT (Actin FS) VBG pH POC VBG pCO2 POC VBG pO2 VBG HCO3 VBG O2 Sat (Bev) VBG Base Excess Sodium Potassium Chloride Carbon Dioxide Anion Gap BUN Creatinine Est GFR (CKD-EPI)AfAm Est GFR (CKD-EPI)NonAf POC Glucometer Random Glucose Lactic Acid 1.6 Calcium Phosphorus Magnesium Total Bilirubin AST ALT Alkaline Phosphatase Ammonia 13.20 Troponin I B-Natriuretic Peptide Total Protein Albumin TSH Urine Color Urine Appearance Urine pH Ur Specific [place] Urine Protein Urine Glucose (UA) Urine Ketones Urine Blood Urine Nitrite Urine Bilirubin Urine Urobilinogen Ur Leukocyte Esterase Urine WBC (Auto) Urine RBC (Auto) Urine Casts (Auto) U Epithel Cells (Auto) Urine Bacteria (Auto) Random Vancomycin Salicylates Acetaminophen Alcohol, Quantitative Acetone, Qual Blood Type A POSITIVE Antibody Screen Positive H Prewarmed Antibody Srcn Negative Antibody Identification Cold auto Antigen Identification No Result Required. 02/22/19 02/22/19 02/22/19 05:40 05:40 05:40 WBC 10.2 H RBC 2.72 L Hgb 7.9 L Hct 25.2 L D MCV 92.9 MCH 29.0 MCHC 31.2 L RDW 17.7 H Plt Count 418 MPV 9.7 Absolute Neuts (auto) 7.8 Neutrophils % 76.9 Lymphocytes % 14.8 Monocytes % 5.5 Eosinophils % 2.3 D Basophils % 0.5 Nucleated RBC % 0 PT with INR 17.00 H INR 1.44 H PTT (Actin FS) 39.2 H VBG pH POC VBG pCO2 POC VBG pO2 VBG HCO3 VBG O2 Sat (Bev) VBG Base Excess Sodium Potassium Chloride Carbon Dioxide Anion Gap BUN Creatinine Est GFR (CKD-EPI)AfAm Est GFR (CKD-EPI)NonAf POC Glucometer Random Glucose Lactic Acid Calcium Phosphorus Magnesium Total Bilirubin AST ALT Alkaline Phosphatase Ammonia Troponin I B-Natriuretic Peptide Total Protein Albumin TSH Urine Color Urine Appearance Urine pH Ur Specific [place] Urine Protein Urine Glucose (UA) Urine Ketones Urine Blood Urine Nitrite Urine Bilirubin Urine Urobilinogen Ur Leukocyte Esterase Urine WBC (Auto) Urine RBC (Auto) Urine Casts (Auto) U Epithel Cells (Auto) Urine Bacteria (Auto) Random Vancomycin 16.6 L Salicylates Acetaminophen Alcohol, Quantitative Acetone, Qual Blood Type Antibody Screen Prewarmed Antibody Srcn Antibody Identification Antigen Identification 02/22/19 02/22/19 02/22/19 05:40 06:01 12:46 WBC RBC Hgb Hct MCV MCH MCHC RDW Plt Count MPV Absolute Neuts (auto) Neutrophils % Lymphocytes % Monocytes % Eosinophils % Basophils % Nucleated RBC % PT with INR INR PTT (Actin FS) VBG pH POC VBG pCO2 POC VBG pO2 VBG HCO3 VBG O2 Sat (Bev) VBG Base Excess Sodium Cancelled 141 Potassium Cancelled 3.7 Chloride Cancelled 106 Carbon Dioxide Cancelled 30 Anion Gap Cancelled 5 L BUN Cancelled 57 H Creatinine Cancelled 4.3 H Est GFR (CKD-EPI)AfAm Cancelled 14.67 Est GFR (CKD-EPI)NonAf Cancelled 12.66 POC Glucometer 57 Random Glucose Cancelled 114 H Lactic Acid Calcium Cancelled 9.0 Phosphorus Cancelled 3.1 Magnesium Cancelled 2.6 H Total Bilirubin Cancelled 0.4 AST Cancelled 13 L ALT Cancelled 10 L Alkaline Phosphatase Cancelled 137 H Ammonia Troponin I B-Natriuretic Peptide Total Protein Cancelled 6.6 Albumin Cancelled 1.5 L TSH Urine Color Urine Appearance Urine pH Ur Specific [place] Urine Protein Urine Glucose (UA) Urine Ketones Urine Blood Urine Nitrite Urine Bilirubin Urine Urobilinogen Ur Leukocyte Esterase Urine WBC (Auto) Urine RBC (Auto) Urine Casts (Auto) U Epithel Cells (Auto) Urine Bacteria (Auto) Random Vancomycin Salicylates Acetaminophen Alcohol, Quantitative Acetone, Qual Blood Type Antibody Screen Prewarmed Antibody Srcn Antibody Identification Antigen Identification 02/22/19 14:26 WBC RBC Hgb Hct MCV MCH MCHC RDW Plt Count MPV Absolute Neuts (auto) Neutrophils % Lymphocytes % Monocytes % Eosinophils % Basophils % Nucleated RBC % PT with INR INR PTT (Actin FS) VBG pH POC VBG pCO2 POC VBG pO2 VBG HCO3 VBG O2 Sat (Bev) VBG Base Excess Sodium Potassium Chloride Carbon Dioxide Anion Gap BUN Creatinine Est GFR (CKD-EPI)AfAm Est GFR (CKD-EPI)NonAf POC Glucometer 64 Random Glucose Lactic Acid Calcium Phosphorus Magnesium Total Bilirubin AST ALT Alkaline Phosphatase Ammonia Troponin I B-Natriuretic Peptide Total Protein Albumin TSH Urine Color Urine Appearance Urine pH Ur Specific [place] Urine Protein Urine Glucose (UA) Urine Ketones Urine Blood Urine Nitrite Urine Bilirubin Urine Urobilinogen Ur Leukocyte Esterase Urine WBC (Auto) Urine RBC (Auto) Urine Casts (Auto) U Epithel Cells (Auto) Urine Bacteria (Auto) Random Vancomycin Salicylates Acetaminophen Alcohol, Quantitative Acetone, Qual Blood Type Antibody Screen Prewarmed Antibody Srcn Antibody Identification Antigen Identification Active Medications Generic Name Dose Route Start Last Admin Trade Name Freq PRN Reason Stop Dose Admin Albumin Human 12.5 gm 02/23/19 11:45 Albumin Human 25% IVPB Q30M [facility] Albuterol/Ipratropium 1 amp 02/21/19 19:04 Duoneb - NEB Q6H PRN SHORTNESS OF BREATH Allopurinol 100 mg 02/22/19 10:00 Zyloprim - PO DAILY [facility] Amino Acids 30 ml 02/21/19 22:00 02/22/19 06:50 Prosource No Carb Liquid Pkt PO Not Given TID [facility] Apixaban 2.5 mg 02/21/19 22:00 02/21/19 22:23 Eliquis - PO 2.5 mg BID [facility] Administration Atorvastatin Calcium 20 mg 02/21/19 22:00 02/21/19 22:23 Lipitor - PO 20 mg HS [facility] Administration Collagenase 1 applic 02/22/19 10:00 Santyl - TP DAILY [facility] Protocol Collagenase 1 applic 02/22/19 10:00 Santyl - TP DAILY [facility] Protocol Epoetin Jose 10,000 unit 02/23/19 11:32 Epogen - IVPUSH 02/23/19 11:33 ONCE ONE Escitalopram Oxalate 10 mg 02/22/19 10:00 Lexapro - PO DAILY [facility] Meropenem 500 mg/ Dextrose 100 mls @ 200 mls/hr 02/22/19 09:15 02/22/19 11:02 IVPB 200 mls/hr Q24H [facility] Administration Norepinephrine Bitartrate 8, 500 mls @ 6.94 mls/hr 02/22/19 10:45 000 mcg/ Dextrose IV [facility] Protocol 0.03 MCG/KG/MIN Sodium Chloride 250 mls @ 3,000 mls/hr 02/22/19 11:32 Normal Saline - IV 02/23/19 11:32 PRN PRN Hypotension during Dialysis Insulin Aspart 1 vial 02/22/19 07:00 02/22/19 08:53 Novolog Vial Sliding Scale - SQ Not Given TIDAC [facility] Protocol Lactobacillus Acidophilus 1 tab 02/22/19 10:00 Bacid - PO DAILY [facility] Megestrol Acetate 400 mg 02/22/19 10:00 Megace Oral Suspension - PO DAILY [facility] Midodrine 5 mg 02/23/19 10:00 Proamatine - PO SuTuThSa@1000 [facility] Midodrine 10 mg 02/22/19 10:00 Proamatine - PO MoWeFr@1000 [facility] Multivitamins/Minerals/Vitamin C 1 tab 02/22/19 10:00 Tab-A-Vit - PO DAILY [facility] Sevelamer Carbonate 1,600 mg 02/22/19 08:00 02/22/19 09:00 Renvela - PO Not Given TIDCM [facility] Tamsulosin HCl 0.4 mg 02/21/19 22:00 02/21/19 22:23 Flomax - PO 0.4 mg HS [facility] Administration ASSESSMENT/PLAN: 73 yo M PMH dementia, CVA, DM, COPD, ESRD, gout, HTN, HLP, recent admission 01/31- 02/19 during which he was treated for sepsis due to infected b/l feet ulcers/ gangrene. He was sent form NH due to poor po intake, and worsening of ulcers. Now in septic shock 2/2 DM gangrenous B/L feet infx, Infected sacral decub and scrotal ulcer, and GN bacteremia , requiring ICU and pressors #septic shock 2/2 DM gangrenous B/L feet infx, Infected sacral decub and scrotal ulcer, and GN bacteremia - requiring ICU and pressors, +L IJ. + Leukocytosis -old cx with E coli, ESBL, MRSA, and VRE. -s/p Vanc and Zosyn in the ED -Bcx growing gram negative cher -ID consulted, Rangel -vascular surgery consulted, Dr harry -lactic acid downtrended to 1.6 -palliative care consulted -change position q2h -Started Meropenem 500mg daily, Gentamicin 120mg x1, vanc, per ID recs -NPO pending swallow eval -Aspiration precautions. -Levophed gtt, Titrate pressors to keep MAP>65 #ESRD on HD (MWF) -nephro consulted (Dr. Henriquez) -Hold HD today #Acute on chronic anemia likely 2/2 ESRD -monitor H/H #COPD -keep SpO2>90% -Duonebs q6h PRN #Dm ISS BGM ACHS #H/o hypotension : cont home midodrine monitor vitals # h/o afib continue elequis 2.5 bid #FEN -Not on any standing fluids -replete prn -NPO pending swallow eval #Prophylaxis -Eliquis 2.5mg BID #Disposition -full code -poor prognosis, need GOC -ICU monitoring Visit type - Emergency Visit Emergency Visit: Yes ED Registration Date: 02/21/19 Care time: The patient presented to the Emergency Department on the above date and was hospitalized for further evaluation of their emergent condition. - New Patient This patient is new to me today: Yes Date on this admission: 02/22/19 - Critical Care Critical Care patient: No
--- NOTE | 2019-02-22 16:08 | PN ---
Teaching Attending Note Name of Resident: Zacarias Mcmanus ATTENDING PHYSICIAN STATEMENT I saw and evaluated the patient. I reviewed the resident's note and discussed the case with the resident. I agree with the resident's findings and plan as documented. SUBJECTIVE: unable to collect any hx. OBJECTIVE: NAD, comfortable, . contracted. dry MM. missing front teeth. CV: RRR, no MRG Lungs: clear anteriorly Abd: soft, Nt, ND , NL BS SKin and feet were not examined today . wrapped wounds ASSESSMENT AND PLAN: 73 y/o man with h/o dementia, CVA, DM, COPD, ESRD, gout, HTN, HLP, recent admission 01/31-02/19 during which he was treated for sepsis due to infected b/l feet ulcers/gangrene. He was sent form NH due to poor po intake, and non healing wounds 1- Gangrene of b/l feet. infection in diabetic feet. 2- Septic shock 3- Infected sacral decub and scrotal ulcer 4- GN bacteremia 5- ESRD 6- DM plan : - Abx : heidi, genta, and vanco - repeat blood cx tomorrow - cont pressors - HD per renal - monitor electrolytes - surgical consult pending. - SSI - daughter was not reachable in AM . will try again to d/w her goals of care and code status Critical Care Total Critical Care Time (in minutes): 40 Critical Care Statement: The care of this patient involved high complexity decision making to prevent further life threatening deterioration of the patient 's condition and/or to evaluate & treat vital organ system(s) failure or risk of failure.
[2019-02-22 17:12] LABS: BASO % 0.3 % (0-2.0); EOS % 0.3 % (0-4.5); HEMATOCRIT 27.4 % (35.4-49); HEMOGLOBIN 8.3 GM/dL (11.7-16.9); LYMPH % 7.9 % (8-40); MCH 28.1 pg (25.7-33.7); MCHC 30.2 g/dl (32.0-35.9); MEAN CELL VOLUME 92.9 fl (80-96); MEAN PLT VOLUME 8.7 fl (7.5-11.1); MONO % 1.9 % (3.8-10.2); NEUT % 89.6 % (42.8-82.8); PLATELET COUNT 437 K/MM3 (134-434); RBC 2.95 M/mm3 (4.00-5.60); RDW 17.6 % (11.9-15.9); WHITE BLOOD COUNT 9.8 K/mm3 (4.0-10.0)
[2019-02-22] MEDS ORDERED: PT OWN MED DRAWER 7, Y5N ONE ×2 (17:38→20:06)
[2019-02-22] MEDS: ATORVASTATIN CA 20 MG TABLET (FP) PO SCH (21:45)
[2019-02-22] MEDS: TAMSULOSIN HCL 0.4 MG CAP PO SCH (21:45)
[2019-02-23] MEDS ORDERED: NOREPINEPHRINE BITARTRATE 4 MG/4 ML ML IV ONE ×3 (02:32→17:35)
[2019-02-23 06:50] LABS: BASO % 0.6 % (0-2.0); EOS % 0.2 % (0-4.5); HEMATOCRIT 26.7 % (35.4-49); HEMOGLOBIN 8.2 GM/dL (11.7-16.9); LYMPH % 8.4 % (8-40); MCH 28.1 pg (25.7-33.7); MCHC 30.6 g/dl (32.0-35.9); MEAN CELL VOLUME 91.8 fl (80-96); MEAN PLT VOLUME 9.3 fl (7.5-11.1); MONO % 4.6 % (3.8-10.2); NEUT % 86.2 % (42.8-82.8); PLATELET COUNT 482 K/MM3 (134-434); RBC 2.91 M/mm3 (4.00-5.60)
[2019-02-23 07:20] LABS: ALBUMIN 1.3 g/dl (3.4-5.0); BILIRUBIN,TOTAL 0.4 mg/dL (0.2-1); CALCIUM 9.2 mg/dL (8.5-10.1); CREATININE 4.9 mg/dL (0.55-1.3); MAGNESIUM 2.5 mg/dL (1.8-2.4); PHOSPHOROUS 2.8 mg/dL (2.5-4.9); POTASSIUM 3.6 mmol/L (3.5-5.1); TOT PROT 6.4 g/dl (6.4-8.2)
[2019-02-23] MEDS: AMINO ACIDS/PROTEIN HYDROLYS 30 ML LIQUID.PKT PO SCH ×3 (07:29→21:48)
[2019-02-23] MEDS: INSULIN SLIDING SCALE (NOVOLOG) 1 VIAL SQ SCH ×3 (07:29→17:28)
--- NOTE | 2019-02-23 08:05 | PN ---
Progress Note (short form) - Note Progress Note: RENAL Pt is awake and alert appears comfortable Last Vital Signs Temp Pulse Resp BP Pulse Ox 97.7 F 95 H 22 H 108/45 L 99 02/23/19 06:00 02/23/19 06:00 02/23/19 06:00 02/23/19 06:00 02/22/19 21:00 lungs clear anteriorly cvs s1s2 rr +mary abd soft ext no edema, contracture neuro awake CBC, BMP 02/23/19 06:20 02/23/19 06:20 Current Medications Generic Name Dose Route Start Last Admin Trade Name Freq PRN Reason Stop Dose Admin Albumin Human 12.5 gm 02/23/19 11:45 Albumin Human 25% IVPB Q30M [facility] Albuterol/Ipratropium 1 amp 02/21/19 19:04 Duoneb - NEB Q6H PRN SHORTNESS OF BREATH Allopurinol 100 mg 02/22/19 10:00 02/22/19 12:42 Zyloprim - PO Not Given DAILY [facility] Amino Acids 30 ml 02/21/19 22:00 02/23/19 07:29 Prosource No Carb Liquid Pkt PO Not Given TID [facility] Apixaban 2.5 mg 02/21/19 22:00 02/22/19 21:45 Eliquis - PO 2.5 mg BID [facility] Administration Atorvastatin Calcium 20 mg 02/21/19 22:00 02/22/19 21:45 Lipitor - PO 20 mg HS [facility] Administration Collagenase 1 applic 02/22/19 10:00 02/22/19 13:39 Santyl - TP 1 applic DAILY [facility] Administration Protocol Collagenase 1 applic 02/22/19 10:00 02/22/19 13:41 Santyl - TP 1 units DAILY [facility] Administration Protocol Epoetin Jose 10,000 unit 02/23/19 11:32 Epogen - IVPUSH 02/23/19 11:33 ONCE ONE Escitalopram Oxalate 10 mg 02/22/19 10:00 02/22/19 12:40 Lexapro - PO Not Given DAILY [facility] Meropenem 500 mg/ Dextrose 100 mls @ 200 mls/hr 02/22/19 09:15 02/22/19 11:02 IVPB 200 mls/hr Q24H [facility] Administration Norepinephrine Bitartrate 8, 500 mls @ 6.94 mls/hr 02/22/19 10:45 02/22/19 12 :25 000 mcg/ Dextrose IV 0.16 mcg/kg/min ASDIR [facility] 37.5 mls/hr Titration Protocol 0.03 MCG/KG/MIN Sodium Chloride 250 mls @ 3,000 mls/hr 02/22/19 11:32 Normal Saline - IV 02/23/19 11:32 PRN PRN Hypotension during Dialysis Insulin Aspart 1 vial 02/22/19 07:00 02/23/19 07:29 Novolog Vial Sliding Scale - SQ Not Given TIDAC [facility] Protocol Lactobacillus Acidophilus 1 tab 02/22/19 10:00 02/22/19 12:40 Bacid - PO Not Given DAILY [facility] Megestrol Acetate 400 mg 02/22/19 10:00 02/22/19 12:40 Megace Oral Suspension - PO Not Given DAILY [facility] Midodrine 5 mg 02/23/19 10:00 Proamatine - PO SuTuThSa@1000 [facility] Midodrine 10 mg 02/22/19 10:00 02/22/19 12:39 Proamatine - PO Not Given MoWeFr@1000 [facility] Multivitamins/Minerals/Vitamin C 1 tab 02/22/19 10:00 02/22/19 12:41 Tab-A-Vit - PO Not Given DAILY [facility] Sevelamer Carbonate 1,600 mg 02/22/19 08:00 02/22/19 17:46 Renvela - PO Not Given TIDCM [facility] Tamsulosin HCl 0.4 mg 02/21/19 22:00 02/22/19 21:45 Flomax - PO 0.4 mg HS [facility] Administration Impression 1. ESRD 2. gangrene 3. DM 4. hyperlipidemia 5. HTN 6. gout 7. proteinuria 8. hypotension 9. sepsis Plan needs amputation continue antibiotics follow up vascular will be dialyzed today MV
--- NOTE | 2019-02-23 08:13 | PN ---
Teaching Attending Note Name of Resident: Mathew Adorno ATTENDING PHYSICIAN STATEMENT I saw and evaluated the patient. I reviewed the resident's note and discussed the case with the resident. I agree with the resident's findings and plan as documented. SUBJECTIVE: unable to obtain hx. no events over night OBJECTIVE: NAD, comfortable, . contracted. dry MM. missing front teeth. CV: RRR, no MRG Lungs: clear , decreased breath sounds, poor effort Abd: soft, Nt, ND , NL BS SKin : sacral decub with healing part , small area with purulent discharge . posterior scrotal ulcer with no discharge today. EXt: black discoloration on R lleg, ulcers on R foot with no discharge. L foot with exposed tendon on dorsal ankle, and an unstagable ulcer on heel with purulent discharge . DP can't be appreciated ASSESSMENT AND PLAN: 73 y/o man with h/o dementia, CVA, DM, COPD, ESRD, gout, HTN, HLP, recent admission 01/31-02/19 during which he was treated for sepsis due to infected b/l feet ulcers/gangrene. He was sent form NH due to poor po intake, and non healing wounds 1- Gangrene of b/l feet. infection in diabetic feet. 2- Septic shock 3- Infected sacral decub and scrotal ulcer 4- GN bacteremia , source is likely infected wounds 5- ESRD 6- DM plan : - Abx : heidi, genta. will probably dose vanco after HD today. ID Recs - repeat blood cx - cont Levo, might need to increase rate - HD today - monitor electrolytes - surgical consult pending. will recall - SSI - Will try to reach daughter again today to discuss goals of care and code status Poor prognosis ICU level of care Critical Care Total Critical Care Time (in minutes): 30 Critical Care Statement: The care of this patient involved high complexity decision making to prevent further life threatening deterioration of the patient 's condition and/or to evaluate & treat vital organ system(s) failure or risk of failure.
[2019-02-23] MEDS: SEVELAMER CARBONATE 800 MG TAB (FP) PO SCH ×3 (08:29→16:32)
--- NOTE | 2019-02-23 08:36 | PN ---
Progress Note (short form) - Note Progress Note: PULM/CCM SUBJECTIVE: Patient seen and examined in the ICU. 24HR: -started on vasopressors, currently levo 10, new TLC placed -attempts to discuss condition with family were unsuccessful -GNR in blood, currently on Tarik. Vital Signs Temp 97.7 F 02/23/19 06:00 Pulse 95 H 02/23/19 06:00 Resp 22 H 02/23/19 06:00 BP 108/45 L 02/23/19 06:00 Pulse Ox 99 02/22/19 21:00 Intake & Output 02/22/19 02/22/19 02/23/19 11:59 23:59 11:59 Intake Total 300 467.5 40 Balance 300 467.5 40 Weight 63.049 kg 62.641 kg Intake: IV 250 267.5 40 Levophed - 8,000 Mcg In 242.5 40 D5w - 492 ml @ 0.03 MCG/ KG/MIN 6.94 mls/hr IV ASDIR [facility] Rx#:[id number] Normal Saline - 250 ml @ 250 25 250 mls/hr IV ASDIR [facility] Rx#:[id number] IVPB 50 200 Other: Voiding Method Diaper Diaper Bowel Movement Yes Weight Measurement Method Built in Bedscale Built in Bedscale Microbiology 02/21/19 13:16 Blood - Peripheral Venous Blood Culture - Preliminary Pending Organism 02/21/19 16:30 Foot - Left Heel Gram Stain - Final 02/21/19 14:50 Urine - Urine - Catheterized Urine Culture - Final NO GROWTH OBTAINED 02/21/19 15:40 Blood - Peripheral Venous Blood Culture - Preliminary Pending Organism Current Medications Albumin Human (Albumin Human 25%) 12.5 gm IVPB Q30M [facility] Albuterol/Ipratropium (Duoneb -) 1 amp NEB Q6H PRN PRN Reason: SHORTNESS OF BREATH Allopurinol (Zyloprim -) 100 mg PO DAILY [facility] Last Admin: 02/22/19 12:42 Dose: Not Given Amino Acids (Prosource No Carb Liquid Pkt) 30 ml PO TID [facility] Last Admin: 02/23/19 07:29 Dose: Not Given Apixaban (Eliquis -) 2.5 mg PO BID [facility] Last Admin: 02/22/19 21:45 Dose: 2.5 mg Atorvastatin Calcium (Lipitor -) 20 mg PO HS [facility] Last Admin: 02/22/19 21:45 Dose: 20 mg Collagenase (Santyl -) 1 applic TP DAILY [facility]; Protocol Last Admin: 02/22/19 13:39 Dose: 1 applic Collagenase (Santyl -) 1 applic TP DAILY [facility]; Protocol Last Admin: 02/22/19 13:41 Dose: 1 units Epoetin Jose (Epogen -) 10,000 unit IVPUSH ONCE ONE Stop: 02/23/19 11:33 Escitalopram Oxalate (Lexapro -) 10 mg PO DAILY [facility] Last Admin: 02/22/19 12:40 Dose: Not Given Meropenem 500 mg/ Dextrose 100 mls @ 200 mls/hr IVPB Q24H [facility] Last Admin: 02/22/19 11:02 Dose: 200 mls/hr Norepinephrine Bitartrate 8, (000 mcg/ Dextrose) 500 mls @ 6.94 mls/hr IV ASDIR [facility]; Protocol Last Titration: 02/22/19 12:25 Dose: 0.16 mcg/kg/min, 37.5 mls/hr Sodium Chloride (Normal Saline -) 250 mls @ 3,000 mls/hr IV PRN PRN PRN Reason: Hypotension during Dialysis Stop: 02/23/19 11:32 Insulin Aspart (Novolog Vial Sliding Scale -) 1 vial SQ TIDAC [facility]; Protocol Last Admin: 02/23/19 07:29 Dose: Not Given Lactobacillus Acidophilus (Bacid -) 1 tab PO DAILY [facility] Last Admin: 02/22/19 12:40 Dose: Not Given Megestrol Acetate (Megace Oral Suspension -) 400 mg PO DAILY [facility] Last Admin: 02/22/19 12:40 Dose: Not Given Midodrine (Proamatine -) 5 mg PO SuTuThSa@1000 [facility] Midodrine (Proamatine -) 10 mg PO MoWeFr@1000 [facility] Last Admin: 02/22/19 12:39 Dose: Not Given Multivitamins/Minerals/Vitamin C (Tab-A-Vit -) 1 tab PO DAILY [facility] Last Admin: 02/22/19 12:41 Dose: Not Given Sevelamer Carbonate (Renvela -) 1,600 mg PO TIDCM [facility] Last Admin: 02/23/19 08:29 Dose: Not Given Tamsulosin HCl (Flomax -) 0.4 mg PO [facility] Last Admin: 02/22/19 21:45 Dose: 0.4 mg Constitutional: Yes: Lethargic, poorly responsive Eyes: Yes: Conjunctiva Clear HENT: Yes: Atraumatic, Normocephalic Neck: Yes: Supple Cardiovascular: Yes: Regular Rate and Rhythm, Other (permacath site no erythema , no drainage) Respiratory: scattered rhonchi Gastrointestinal: Yes: Normal Bowel Sounds, Soft Extremities: Yes: Other (contracted, foulsmelling gangrenous wounds both feet), there is radha pus from L heel, dorsal aspects appear to be dry Edema: Yes Edema: LLE: Trace, RLE: Trace]' Labs: CBC, BMP 02/23/19 06:20 02/23/19 06:20 Imaging - Results Chest X-ray: none today Problem List - Problems (1) Gram negative sepsis Code(s): A41.50 - GRAM-NEGATIVE SEPSIS, UNSPECIFIED (2) Gangrene of both feet Code(s): I96 - GANGRENE, NOT ELSEWHERE CLASSIFIED (3) ESRD (end stage renal disease) on dialysis Code(s): N18.6 - END STAGE RENAL DISEASE; Z99.2 - DEPENDENCE ON RENAL DIALYSIS (4) MRSA (methicillin resistant 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 coli carrier Code(s): Z22.39 - CARRIER OF OTHER SPECIFIED BACTERIAL DISEASES (6) VRE (vancomycin-resistant Enterococci) Code(s): A49.1 - STREPTOCOCCAL INFECTION, UNSPECIFIED SITE; Z16.21 - RESISTANCE TO VANCOMYCIN Assessment/Plan Gm negative septic shock likely from soft tissue infection Probable toxic metabolic encephalopathy TLC inserted emergently for access for pressors Pressors to maintain MAP > 65 ABX per ID O2 as needed HD per Renal , will attempt HD today Aspiration precautions Surgical evaluation for wound care , apparently family not amenable to amputation which is what appears to be indicated Ongoing GOC discussions have been attempted with [place] who is out of state. Currently full code.
[2019-02-23] MEDS: ESCITALOPRAM OXALATE 10 MG TABLET (FP) PO SCH (09:21)
[2019-02-23] MEDS: LACTOBACILLUS ACIDOPHILUS 1 TABLET PO SCH (09:21)
[2019-02-23] MEDS: APIXABAN 2.5 MG TABLET PO SCH ×2 (09:21→21:47)
[2019-02-23] MEDS: MIDODRINE HCL 5 MG TABLET PO SCH (09:22)
[2019-02-23] MEDS: MEGESTROL ACETATE 400 MG/10 ML UNIT DOSE CUP PO SCH (09:22)
[2019-02-23] MEDS: MULTIVITAMINS (DAILY MVI) TABLET (FP) PO SCH (09:23)
[2019-02-23] MEDS: ALLOPURINOL 100 MG TABLET (FP) PO SCH (09:23)
[2019-02-23] MEDS ORDERED: PT OWN MED DRAWER 7, Y5N ONE (09:32)
[2019-02-23] MEDS: MEROPENEM 500 MG in DEXTROSE 5%-WATER 100 ML IVPB SCH (09:36)
[2019-02-23] MEDS: COLLAGENASE CLOSTRIDIUM HIST. 30 GRAMS TUBE TP SCH ×2 (09:37)
--- NOTE | 2019-02-23 09:50 | PN ---
Progress Note (short form) - Note Progress Note: now on pressors awakens Vital Signs Period Temp Pulse Resp BP Sys/Zamorano Pulse Ox Last 24 Hr 97.7 F-98.2 F 78-98 15-26 69-114/39-78 97-100 cor-rrr lungs decreased bs at bases abd soft,nt contracted- scrotal lesion is shallow sacral lesion is shallow ext contracted gangrenous foulsmelling feet CBC, BMP 02/23/19 06:20 02/23/19 06:20 Microbiology 02/21/19 13:16 Blood - Peripheral Venous Blood Culture - Preliminary Non Lactose Fermenting Gnb 02/21/19 15:40 Blood - Peripheral Venous Blood Culture - Preliminary Non Lactose Fermenting Gnb 02/21/19 16:30 Foot - Left Heel Gram Stain - Final 02/21/19 14:50 Urine - Urine - Catheterized Urine Culture - Final NO GROWTH OBTAINED Current Medications Albumin Human (Albumin Human 25%) 12.5 gm IVPB Q30M [facility] Albuterol/Ipratropium (Duoneb -) 1 amp NEB Q6H PRN PRN Reason: SHORTNESS OF BREATH Allopurinol (Zyloprim -) 100 mg PO DAILY [facility] Last Admin: 02/23/19 09:23 Dose: Not Given Amino Acids (Prosource No Carb Liquid Pkt) 30 ml PO TID [facility] Last Admin: 02/23/19 07:29 Dose: Not Given Apixaban (Eliquis -) 2.5 mg PO BID [facility] Last Admin: 02/23/19 09:21 Dose: Not Given Atorvastatin Calcium (Lipitor -) 20 mg PO HS [facility] Last Admin: 02/22/19 21:45 Dose: 20 mg Collagenase (Santyl -) 1 applic TP DAILY [facility]; Protocol Last Admin: 02/23/19 09:37 Dose: 1 applic Collagenase (Santyl -) 1 applic TP DAILY [facility]; Protocol Last Admin: 02/23/19 09:37 Dose: 1 applic Epoetin Jose (Epogen -) 10,000 unit IVPUSH ONCE ONE Stop: 02/23/19 11:33 Escitalopram Oxalate (Lexapro -) 10 mg PO DAILY [facility] Last Admin: 02/23/19 09:21 Dose: Not Given Meropenem 500 mg/ Dextrose 100 mls @ 200 mls/hr IVPB Q24H [facility] Last Admin: 02/23/19 09:36 Dose: 200 mls/hr Norepinephrine Bitartrate 8, (000 mcg/ Dextrose) 500 mls @ 6.94 mls/hr IV ASDIR [facility]; Protocol Last Titration: 02/22/19 12:25 Dose: 0.16 mcg/kg/min, 37.5 mls/hr Sodium Chloride (Normal Saline -) 250 mls @ 3,000 mls/hr IV PRN PRN PRN Reason: Hypotension during Dialysis Stop: 02/23/19 11:32 Insulin Aspart (Novolog Vial Sliding Scale -) 1 vial SQ TIDAC [facility]; Protocol Last Admin: 02/23/19 07:29 Dose: Not Given Lactobacillus Acidophilus (Bacid -) 1 tab PO DAILY [facility] Last Admin: 02/23/19 09:21 Dose: Not Given Megestrol Acetate (Megace Oral Suspension -) 400 mg PO DAILY [facility] Last Admin: 02/23/19 09:22 Dose: Not Given Midodrine (Proamatine -) 5 mg PO SuTuThSa@1000 [facility] Last Admin: 02/23/19 09:22 Dose: Not Given Midodrine (Proamatine -) 10 mg PO MoWeFr@1000 [facility] Last Admin: 02/22/19 12:39 Dose: Not Given Multivitamins/Minerals/Vitamin C (Tab-A-Vit -) 1 tab PO DAILY [facility] Last Admin: 02/23/19 09:23 Dose: Not Given Sevelamer Carbonate (Renvela -) 1,600 mg PO TIDCM [facility] Last Admin: 02/23/19 08:29 Dose: Not Given Tamsulosin HCl (Flomax -) 0.4 mg PO HS [facility] Last Admin: 02/22/19 21:45 Dose: 0.4 mg a/p gram negative sepsis suspected secondary to gangrenous legs esrd/hd continue meropenem,received gentamicin yeaterday overall prognosis is poor staff is attempting to reach next of kin Problem List - Problems (1) Gram negative sepsis Code(s): A41.50 - GRAM-NEGATIVE SEPSIS, UNSPECIFIED (2) Gangrene of both feet Code(s): I96 - GANGRENE, NOT ELSEWHERE CLASSIFIED (3) ESRD (end stage renal disease) on dialysis Code(s): N18.6 - END STAGE RENAL DISEASE; Z99.2 - DEPENDENCE ON RENAL DIALYSIS (4) MRSA (methicillin resistant 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 coli carrier Code(s): Z22.39 - CARRIER OF OTHER SPECIFIED BACTERIAL DISEASES (6) VRE (vancomycin-resistant Enterococci) Code(s): A49.1 - STREPTOCOCCAL INFECTION, UNSPECIFIED SITE; Z16.21 - RESISTANCE TO VANCOMYCIN
--- NOTE | 2019-02-23 09:56 | PN ---
Physical Exam: SUBJECTIVE: Patient seen and examined at bedside. noted hypotension...septic shock requiring pressors and ICU. no acute events overnight. HD today. currently levo 10 OBJECTIVE: Vital Signs Period Temp Pulse Resp BP Sys/Zamorano Pulse Ox Last 24 Hr 97.7 F-98.2 F 78-98 15-26 69-114/39-78 97-100 GENERAL: lethargic groggy. arousable to voice EARS, NOSE, THROAT: dry mucous membranes. LUNGS: CTAB HEART: RRR s1s2 normal ABDOMEN: Soft, nontender, not distended, normoactive bowel sounds, ulcer present on sacrum unstagable with foul discharge, scrotum has ulcer no discharge MUSCULOSKELETAL: Normal range of motion at all joints. No bony deformities or tenderness. No CVA tenderness. UPPER EXTREMITIES: 2+ pulses, warm, well-perfused. LOWER EXTREMITIES: b/l wet gangrene with fouls smelling discharge SKIN: Warm, dry, Neuo: lethargic, responsive to pain. Laboratory Results - last 24 hr 02/22/19 02/22/19 02/22/19 12:46 14:26 16:19 WBC RBC Hgb Hct MCV MCH MCHC RDW Plt Count MPV Absolute Neuts (auto) Neutrophils % Lymphocytes % Monocytes % Eosinophils % Basophils % Nucleated RBC % Sodium Potassium Chloride Carbon Dioxide Anion Gap BUN Creatinine Est GFR (CKD-EPI)AfAm Est GFR (CKD-EPI)NonAf POC Glucometer 57 64 135 Random Glucose Calcium Phosphorus Magnesium Total Bilirubin AST ALT Alkaline Phosphatase Total Protein Albumin 02/22/19 02/22/19 02/23/19 16:45 18:59 00:29 WBC 9.8 RBC 2.95 L Hgb 8.3 L Hct 27.4 L MCV 92.9 MCH 28.1 MCHC 30.2 L RDW 17.6 H Plt Count 437 H MPV 8.7 D Absolute Neuts (auto) 8.8 H Neutrophils % 89.6 H Lymphocytes % 7.9 L D Monocytes % 1.9 L Eosinophils % 0.3 D Basophils % 0.3 Nucleated RBC % 0 Sodium Potassium Chloride Carbon Dioxide Anion Gap BUN Creatinine Est GFR (CKD-EPI)AfAm Est GFR (CKD-EPI)NonAf POC Glucometer 157 143 Random Glucose Calcium Phosphorus Magnesium Total Bilirubin AST ALT Alkaline Phosphatase Total Protein Albumin 02/23/19 02/23/19 02/23/19 06:20 06:20 06:57 WBC 14.0 H RBC 2.91 L Hgb 8.2 L Hct 26.7 L MCV 91.8 MCH 28.1 MCHC 30.6 L RDW 18.0 H Plt Count 482 H MPV 9.3 Absolute Neuts (auto) 12.1 H Neutrophils % 86.2 H Lymphocytes % 8.4 Monocytes % 4.6 D Eosinophils % 0.2 Basophils % 0.6 Nucleated RBC % 0 Sodium 142 Potassium 3.6 Chloride 104 Carbon Dioxide 28 Anion Gap 10 BUN 61 H Creatinine 4.9 H Est GFR (CKD-EPI)AfAm 12.52 Est GFR (CKD-EPI)NonAf 10.81 POC Glucometer 147 Random Glucose 170 H Calcium 9.2 Phosphorus 2.8 Magnesium 2.5 H Total Bilirubin 0.4 AST 10 L ALT 9 L Alkaline Phosphatase 146 H Total Protein 6.4 Albumin 1.3 L Active Medications Generic Name Dose Route Start Last Admin Trade Name Freq PRN Reason Stop Dose Admin Albumin Human 12.5 gm 02/23/19 11:45 Albumin Human 25% IVPB Q30M [facility] Albuterol/Ipratropium 1 amp 02/21/19 19:04 Duoneb - NEB Q6H PRN SHORTNESS OF BREATH Allopurinol 100 mg 02/22/19 10:00 02/23/19 09:23 Zyloprim - PO Not Given DAILY [facility] Amino Acids 30 ml 02/21/19 22:00 02/23/19 07:29 Prosource No Carb Liquid Pkt PO Not Given TID [facility] Apixaban 2.5 mg 02/21/19 22:00 02/23/19 09:21 Eliquis - PO Not Given BID [facility] Atorvastatin Calcium 20 mg 02/21/19 22:00 02/22/19 21:45 Lipitor - PO 20 mg HS [facility] Administration Collagenase 1 applic 02/22/19 10:00 02/23/19 09:37 Santyl - TP 1 applic DAILY [facility] Administration Protocol Collagenase 1 applic 02/22/19 10:00 02/23/19 09:37 Santyl - TP 1 applic DAILY [facility] Administration Protocol Epoetin Jose 10,000 unit 02/23/19 11:32 Epogen - IVPUSH 02/23/19 11:33 ONCE ONE Escitalopram Oxalate 10 mg 02/22/19 10:00 02/23/19 09:21 Lexapro - PO Not Given DAILY [facility] Meropenem 500 mg/ Dextrose 100 mls @ 200 mls/hr 02/22/19 09:15 02/23/19 09:36 IVPB 200 mls/hr Q24H [facility] Administration Norepinephrine Bitartrate 8, 500 mls @ 6.94 mls/hr 02/22/19 10:45 02/22/19 12 :25 000 mcg/ Dextrose IV 0.16 mcg/kg/min ASDIR [facility] 37.5 mls/hr Titration Protocol 0.03 MCG/KG/MIN Sodium Chloride 250 mls @ 3,000 mls/hr 02/22/19 11:32 Normal Saline - IV 02/23/19 11:32 PRN PRN Hypotension during Dialysis Insulin Aspart 1 vial 02/22/19 07:00 02/23/19 07:29 Novolog Vial Sliding Scale - SQ Not Given TIDAC [facility] Protocol Lactobacillus Acidophilus 1 tab 02/22/19 10:00 02/23/19 09:21 Bacid - PO Not Given DAILY [facility] Megestrol Acetate 400 mg 02/22/19 10:00 02/23/19 09:22 Megace Oral Suspension - PO Not Given DAILY [facility] Midodrine 5 mg 02/23/19 10:00 02/23/19 09:22 Proamatine - PO Not Given SuTuThSa@1000 [facility] Midodrine 10 mg 02/22/19 10:00 02/22/19 12:39 Proamatine - PO Not Given MoWeFr@1000 [facility] Multivitamins/Minerals/Vitamin C 1 tab 02/22/19 10:00 02/23/19 09:23 Tab-A-Vit - PO Not Given DAILY [facility] Sevelamer Carbonate 1,600 mg 02/22/19 08:00 02/23/19 08:29 Renvela - PO Not Given TIDCM [facility] Tamsulosin HCl 0.4 mg 02/21/19 22:00 02/22/19 21:45 Flomax - PO 0.4 mg HS [facility] Administration ASSESSMENT/PLAN: 73 yo M PMH dementia, CVA, DM, COPD, ESRD, gout, HTN, HLP, recent admission 01/31- 02/19 during which he was treated for sepsis due to infected b/l feet ulcers/ gangrene. He was sent form [facility] due to poor po intake, and worsening of ulcers. Now in septic shock 2/2 DM gangrenous B/L feet infx, Infected sacral decub and scrotal ulcer, and GN bacteremia , requiring ICU and pressors #septic shock 2/2 DM gangrenous B/L feet infx, Infected sacral decub and scrotal ulcer, and GN bacteremia - requiring ICU and pressors, +L IJ. + Leukocytosis -old cx with E coli, ESBL, MRSA, and VRE. -s/p Vanc and Zosyn in the ED -Bcx growing gram negative cher -ucx neg -wound cx pending -ID consulted, Rangel -lactic acid downtrended to 1.6 -palliative care consulted -change position q2h -c/w Meropenem 500mg daily, per ID recs -s/p Gentamicin 120mg x1, vanc (may be redosed today after HD), per ID recs -NPO pending swallow eval -Aspiration precautions. -Levophed gtt 10, Titrate pressors to keep MAP>65 -vascular surgery consulted, Dr harry, for wound care. amputation indicated, but family not amenable. cont GOC #ESRD on HD (MWF) -nephro consulted (Dr. Henriquez) -Hold HD today #Acute on chronic anemia likely 2/2 ESRD -monitor H/H #COPD -keep SpO2>90% -Duonebs q6h PRN #Dm ISS BGM ACHS #H/o hypotension : cont home midodrine monitor vitals # h/o afib c/w elequis 2.5 bid #FEN -Not on any standing fluids -replete prn -NPO pending swallow eval #Prophylaxis -Eliquis 2.5mg BID #Disposition -full code -poor prognosis, amputation indicated, but family not amenable. cont GO discussion -ICU monitoring Visit type - Emergency Visit Emergency Visit: Yes ED Registration Date: 02/21/19 Care time: The patient presented to the Emergency Department on the above date and was hospitalized for further evaluation of their emergent condition. - New Patient This patient is new to me today: Yes Date on this admission: 02/23/19 - Critical Care Critical Care patient: Yes Total Critical Care Time (in minutes): 37 Critical Care Statement: The care of this patient involved high complexity decision making to prevent further life threatening deterioration of the patient 's condition and/or to evaluate & treat vital organ system(s) failure or risk of failure.
[2019-02-23] MEDS ORDERED: EPOETIN ALFA 10,000 UNIT/1 ML VIAL IVPUSH ONE (11:32)
[2019-02-23] MEDS: NOREPINEPHRINE BITARTRATE 8,000 MCG in DEXTROSE 5%-WATER - 492 ML IV SCH ×2 (12:45→18:43)
[2019-02-23] MEDS: ALBUMIN HUMAN 25% 12.5 GM/50 ML VIAL IVPB SCH ×2 (13:30→14:42)
[2019-02-23] MEDS: TAMSULOSIN HCL 0.4 MG CAP PO SCH (21:47)
[2019-02-23] MEDS: ATORVASTATIN CA 20 MG TABLET (FP) PO SCH (21:48)
[2019-02-24 05:59] LABS: BASO % 0.4 % (0-2.0); EOS % 0.6 % (0-4.5); HEMATOCRIT 24.8 % (35.4-49); HEMOGLOBIN 7.6 GM/dL (11.7-16.9); LYMPH % 15.2 % (8-40); MCH 28.1 pg (25.7-33.7); MCHC 30.7 g/dl (32.0-35.9); MEAN CELL VOLUME 91.6 fl (80-96); MEAN PLT VOLUME 8.9 fl (7.5-11.1); MONO % 6.6 % (3.8-10.2); NEUT % 77.2 % (42.8-82.8); PLATELET COUNT 471 K/MM3 (134-434); RBC 2.71 M/mm3 (4.00-5.60); RDW 17.7 % (11.9-15.9); WHITE BLOOD COUNT 11.1 K/mm3 (4.0-10.0)
[2019-02-24] MEDS: INSULIN SLIDING SCALE (NOVOLOG) 1 VIAL SQ SCH ×3 (06:22→17:17)
[2019-02-24] MEDS: AMINO ACIDS/PROTEIN HYDROLYS 30 ML LIQUID.PKT PO SCH ×3 (06:22→21:59)
[2019-02-24 07:14] LABS: ALBUMIN 1.2 g/dl (3.4-5.0); BILIRUBIN,TOTAL 0.4 mg/dL (0.2-1); CALCIUM 8.5 mg/dL (8.5-10.1); CREATININE 2.7 mg/dL (0.55-1.3); MAGNESIUM 1.9 mg/dL (1.8-2.4); PHOSPHOROUS 1.6 mg/dL (2.5-4.9); POTASSIUM 3.4 mmol/L (3.5-5.1)
[2019-02-24] MEDS: SEVELAMER CARBONATE 800 MG TAB (FP) PO SCH ×3 (07:36→17:19)
--- NOTE | 2019-02-24 08:12 | PN ---
Progress Note (short form) - Note Progress Note: RENAL comfortable sleeping Last Vital Signs Temp Pulse Resp BP Pulse Ox 100.5 F H 98 H 25 H 114/56 L 95 02/24/19 06:00 02/24/19 07:00 02/24/19 07:00 02/24/19 07:00 02/24/19 07:32 lungs clear anteriorly cvs s1s2 rr +mary abd soft ext no edema, contracture, dressings on both feet neuro asleep CBC, BMP 02/24/19 05:10 02/24/19 05:10 Current Medications Generic Name Dose Route Start Last Admin Trade Name Freq PRN Reason Stop Dose Admin Albuterol/Ipratropium 1 amp 02/21/19 19:04 Duoneb - NEB Q6H PRN SHORTNESS OF BREATH Allopurinol 100 mg 02/22/19 10:00 02/23/19 09:23 Zyloprim - PO Not Given DAILY [facility] Amino Acids 30 ml 02/21/19 22:00 02/24/19 06:22 Prosource No Carb Liquid Pkt PO Not Given TID [facility] Apixaban 2.5 mg 02/21/19 22:00 02/23/19 21:47 Eliquis - PO Not Given BID [facility] Atorvastatin Calcium 20 mg 02/21/19 22:00 02/23/19 21:48 Lipitor - PO Not Given HS [facility] Collagenase 1 applic 02/22/19 10:00 02/23/19 09:37 Santyl - TP 1 applic DAILY [facility] Administration Protocol Escitalopram Oxalate 10 mg 02/22/19 10:00 02/23/19 09:21 Lexapro - PO Not Given DAILY [facility] Meropenem 500 mg/ Dextrose 100 mls @ 200 mls/hr 02/22/19 09:15 02/23/19 09:36 IVPB 200 mls/hr Q24H [facility] Administration Norepinephrine Bitartrate 8, 500 mls @ 18.75 mls/hr 02/23/19 12:45 02/23/19 18:45 000 mcg/ Dextrose IV 10 mcg/min TITR [facility] 37.5 mls/hr Titration Protocol 5 MCG/MIN Insulin Aspart 1 vial 02/22/19 07:00 02/24/19 06:22 Novolog Vial Sliding Scale - SQ Not Given TIDAC [facility] Protocol Lactobacillus Acidophilus 1 tab 02/22/19 10:00 02/23/19 09:21 Bacid - PO Not Given DAILY [facility] Megestrol Acetate 400 mg 02/22/19 10:00 02/23/19 09:22 Megace Oral Suspension - PO Not Given DAILY [facility] Midodrine 5 mg 02/23/19 10:00 02/23/19 09:22 Proamatine - PO Not Given SuTuThSa@1000 [facility] Midodrine 10 mg 02/22/19 10:00 02/22/19 12:39 Proamatine - PO Not Given MoWeFr@1000 [facility] Multivitamins/Minerals/Vitamin C 1 tab 02/22/19 10:00 02/23/19 09:23 Tab-A-Vit - PO Not Given DAILY [facility] Sevelamer Carbonate 1,600 mg 02/22/19 08:00 02/24/19 07:36 Renvela - PO Not Given TIDCM [facility] Tamsulosin HCl 0.4 mg 02/21/19 22:00 02/23/19 21:47 Flomax - PO Not Given HS [facility] Impression 1. ESRD 2. gangrene 3. DM 4. hyperlipidemia 5. HTN 6. gout 7. proteinuria 8. hypotension 9. sepsis 10. anemia with resistance to KARLEE from infection Plan needs amputation continue antibiotics follow up vascular will be dialyzed in 2 days would dc megace since it probably is not having a significant effect and may increase his chance of dvt MV
--- NOTE | 2019-02-24 08:36 | PN ---
Progress Note (short form) - Note Progress Note: Subjective: no events over night Objective: Vital Signs: Last Vital Signs Temp Pulse Resp BP Pulse Ox 100.5 F H 100 H 29 H 102/50 L 95 02/24/19 06:00 02/24/19 08:00 02/24/19 08:00 02/24/19 08:00 02/24/19 07:32 Laboratory Results - last 24 hr 02/23/19 02/23/19 02/23/19 10:25 11:45 16:54 WBC RBC Hgb Hct MCV MCH MCHC RDW Plt Count MPV Absolute Neuts (auto) Neutrophils % Lymphocytes % Monocytes % Eosinophils % Basophils % Nucleated RBC % Sodium Potassium Chloride Carbon Dioxide Anion Gap BUN Creatinine Est GFR (CKD-EPI)AfAm Est GFR (CKD-EPI)NonAf POC Glucometer 134 103 Random Glucose Calcium Phosphorus Magnesium Total Bilirubin AST ALT Alkaline Phosphatase Total Protein Albumin Random Vancomycin 14.3 L 02/23/19 02/24/19 02/24/19 20:59 05:10 05:10 WBC 11.1 H RBC 2.71 L Hgb 7.6 L Hct 24.8 L MCV 91.6 MCH 28.1 MCHC 30.7 L RDW 17.7 H Plt Count 471 H MPV 8.9 Absolute Neuts (auto) 8.5 H Neutrophils % 77.2 Lymphocytes % 15.2 D Monocytes % 6.6 Eosinophils % 0.6 D Basophils % 0.4 Nucleated RBC % 0 Sodium 140 Potassium 3.4 L Chloride 103 Carbon Dioxide 32 Anion Gap 6 L BUN 23 H Creatinine 2.7 H Est GFR (CKD-EPI)AfAm 25.75 Est GFR (CKD-EPI)NonAf 22.21 POC Glucometer 106 Random Glucose 128 H Calcium 8.5 Phosphorus 1.6 L Magnesium 1.9 Total Bilirubin 0.4 AST 10 L ALT 8 L Alkaline Phosphatase 129 H Total Protein 6.0 L Albumin 1.2 L Random Vancomycin 02/24/19 05:59 WBC RBC Hgb Hct MCV MCH MCHC RDW Plt Count MPV Absolute Neuts (auto) Neutrophils % Lymphocytes % Monocytes % Eosinophils % Basophils % Nucleated RBC % Sodium Potassium Chloride Carbon Dioxide Anion Gap BUN Creatinine Est GFR (CKD-EPI)AfAm Est GFR (CKD-EPI)NonAf POC Glucometer 116 Random Glucose Calcium Phosphorus Magnesium Total Bilirubin AST ALT Alkaline Phosphatase Total Protein Albumin Random Vancomycin Physical Exam: NAD, comfortable. contracted CV: RRR, no MRG Lungs: clear anteriorly, decreased breath sounds, poor effort Abd: soft, Nt, ND , NL BS SKin : sacral and scrotal decub were not examined today EXt: wrapped wounds were not examined today ASSESSMENT AND PLAN: 73 y/o man with h/o dementia, CVA, DM, COPD, ESRD, gout, HTN, HLP, recent admission 01/31-02/19 during which he was treated for sepsis due to infected b/l feet ulcers/gangrene. He was sent form [place] due to poor po intake, and non healing wounds 1- Gangrene of b/l feet. infection in diabetic feet. 2- Septic shock 3- Infected sacral decub and scrotal ulcer 4- GN bacteremia , source is likely infected wounds 5- ESRD 6- DM 7- hypomagnesemia 8- hypokalemia plan : - Abx : heidi, genta. - follow repeat blood cx. original one with GNB and pending organism - cont Levo,MAP is stable - HD yesterday. - monitor electrolytes . replete Mg - d/w Dr. Anthony by resident yesterday again. consult still pending - SSI - daughter was called many times yesterday, no response Poor prognosis ICU level of care Visit type - Emergency Visit Emergency Visit: Yes ED Registration Date: 02/21/19 Care time: The patient presented to the Emergency Department on the above date and was hospitalized for further evaluation of their emergent condition. - New Patient This patient is new to me today: No - Critical Care Critical Care patient: Yes Total Critical Care Time (in minutes): 20
--- NOTE | 2019-02-24 08:56 | PN ---
Progress Note (short form) - Note Progress Note: PULM/CCM SUBJECTIVE: Patient seen and examined in the ICU. 24HR: -remains of levo -HD yesterday -still febrile -awaiting speciation on GNR in blood, proteus from wound Vital Signs Temp 100.5 F H 02/24/19 06:00 Pulse 100 H 02/24/19 08:00 Resp 29 H 02/24/19 08:00 BP 102/50 L 02/24/19 08:00 Pulse Ox 95 02/24/19 07:32 Intake & Output 02/23/19 02/23/19 02/24/19 11:59 23:59 11:59 Intake Total 40 680 262.5 Balance 40 680 262.5 Weight 62.641 kg 62.596 kg 61.915 kg Intake: IV 40 580 262.5 Levophed - 8,000 Mcg In 40 580 262.5 D5w - 492 ml @ 0.03 MCG/ KG/MIN 6.94 mls/hr IV ASDIR [facility] Rx#:[id number] IVPB 100 Oral 0 Other: Voiding Method Diaper Diaper Diaper Bowel Movement Yes No Height 5 ft 3 in Body Mass Index (BMI) 24.4 Weight Measurement Method Built [facility] Bed[facility] Micro[facility] 02/21/19 13:16 Blood - Peripheral Venous Blood Culture - Preliminary Non Lactose Fermenting Gnb Pending Organism 02/21/19 16:30 Foot - Left Heel Gram Stain - Final 02/21/19 16:30 Foot - Left Heel Wound Culture - Preliminary Lactose Fermenting Neg Bacilli Proteus Species 02/21/19 15:40 Blood - Peripheral Venous Blood Culture - Preliminary Non Lactose Fermenting Gnb 02/21/19 14:50 Urine - Urine - Catheterized Urine Culture - Final NO GROWTH OBTAINED Current Medications Albuterol/Ipratropium (Duoneb -) 1 amp NEB Q6H PRN PRN Reason: SHORTNESS OF BREATH Allopurinol (Zyloprim -) [address] [facility] Last Admin: 02/24/19 09:13 Dose: Not Given Amino Acids (Prosource No Carb Liquid Pkt) [address] [facility] Last Admin: 02/24/19 06:22 Dose: Not Given Apixaban (Eliquis -) 2.[address] [facility] Last Admin: 02/24/19 09:12 Dose: Not Given Atorvastatin Calcium (Lipitor -) [address] [facility] Last Admin: 02/23/19 21:48 Dose: Not Given Collagenase (Santyl -) [address] [facility]; Protocol Last Admin: 02/24/19 09:39 Dose: 1 applic Escitalopram Oxalate (Lexapro -) [address] [facility] Last Admin: 02/24/19 09:12 Dose: Not Given Meropenem 500 mg/ Dextrose 100 mls @ 200 mls/hr IVPB Q24H [facility] Last Admin: 02/24/19 09:38 Dose: 200 mls/hr Norepinephrine Bitartrate 8, (000 mcg/ Dextrose) 500 mls @ 18.75 mls/hr IV TITR [facility]; Protocol Last Titration: 02/23/19 18:45 Dose: 10 mcg/min, 37.5 mls/hr Insulin Aspart (Novolog Vial Sliding Scale -) [address] [facility]; Protocol Last Admin: 02/24/19 06:22 Dose: Not Given Lactobacillus Acidophilus (Bacid -) [address] [facility] Last Admin: 02/24/19 09:12 Dose: Not Given Midodrine (Proamatine -) 5 mg PO SuTuThSa@1000 [facility] Last Admin: 02/24/19 09:13 Dose: Not Given Midodrine (Proamatine -) 10 mg PO MoWeFr@1000 [facility] Last Admin: 02/22/19 12:39 Dose: Not Given Multivitamins/Minerals/Vitamin C (Tab-A-Vit -) [address] [facility] Last Admin: 02/24/19 09:13 Dose: Not Given Sevelamer Carbonate (Renvela -) 1,[address] [facility] Last Admin: 02/24/19 07:36 Dose: Not Given Tamsulosin HCl (Flomax -) 0.4 mg PO [facility] Last Admin: 02/23/19 21:47 Dose: Not Given Constitutional: Yes: Lethargic, poorly responsive Eyes: Yes: Conjunctiva Clear HENT: Yes: Atraumatic, Normocephalic Neck: Yes: Supple Cardiovascular: Yes: Regular Rate and Rhythm, Other (permacath site no erythema , no drainage) Respiratory: scattered rhonchi Gastrointestinal: Yes: Normal Bowel Sounds, Soft Extremities: Yes: Other (contracted, foulsmelling gangrenous wounds both feet), there is radha pus from L heel, dorsal aspects appear to be dry, there is visble tendons/bone? Edema: Yes Edema: LLE: Trace, RLE: Trace]' Labs: CBC, BMP 02/24/19 05:10 02/24/19 05:10 Imaging - Results Chest X-ray: none today Problem List - Problems (1) Gram negative sepsis Code(s): A41.50 - GRAM-NEGATIVE SEPSIS, UNSPECIFIED (2) Gangrene of both feet Code(s): I96 - GANGRENE, NOT ELSEWHERE CLASSIFIED (3) ESRD (end stage renal disease) on dialysis Code(s): N18.6 - END STAGE RENAL DISEASE; Z99.2 - DEPENDENCE ON RENAL DIALYSIS (4) MRSA (methicillin resistant 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 coli carrier Code(s): Z22.39 - CARRIER OF OTHER SPECIFIED BACTERIAL DISEASES (6) VRE (vancomycin-resistant Enterococci) Code(s): A49.1 - STREPTOCOCCAL INFECTION, UNSPECIFIED SITE; Z16.21 - RESISTANCE TO VANCOMYCIN Assessment/Plan Gm negative septic shock likely from soft tissue infection Probable toxic metabolic encephalopathy chronic renal failure Pressors to maintain MAP > 65 ABX per ID , Proteus is castle sens, can consider change to ceftriaxone, will need senior care multiweek therapy O2 as needed HD per Renal , will attempt HD today Aspiration precautions , unable to place feeding tube. Enteral access will need to be address, pt resists significantly and is not a senior care plan. Can be discussed as part of ethical consult. Surgical evaluation for wound care , apparently family not amenable to amputation despite necessary for infectious control Ongoing GOC discussions have been attempted with NOK who is out of state. Currently full code. Suggest ethics consultation : Given patients inability to make decisions for himself and NOK unwillingness to allow source control and standard of care it is reasonable to question utility and ethics of continued and/or escalation of aggressive measures. Without source control the patient will not improve and escalation of current therapies or addition of further forms of life sustaining measures will only serve to prolong suffering. Discussed with patients attending who agrees and will reach out to Hospital ethics consult on monday.
[2019-02-24] MEDS: LACTOBACILLUS ACIDOPHILUS 1 TABLET PO SCH (09:12)
[2019-02-24] MEDS: ESCITALOPRAM OXALATE 10 MG TABLET (FP) PO SCH (09:12)
[2019-02-24] MEDS: APIXABAN 2.5 MG TABLET PO SCH ×2 (09:12→21:33)
[2019-02-24] MEDS: MULTIVITAMINS (DAILY MVI) TABLET (FP) PO SCH (09:13)
[2019-02-24] MEDS: MIDODRINE HCL 5 MG TABLET PO SCH (09:13)
[2019-02-24] MEDS: ALLOPURINOL 100 MG TABLET (FP) PO SCH (09:13)
[2019-02-24] MEDS ORDERED: PT OWN MED DRAWER 7, Y5N ONE (09:30)
[2019-02-24] MEDS ORDERED: MAGNESIUM SULF 50% (8.12 MEQ/2 ML-1 GM VIAL) IVPB ONE (09:30)
[2019-02-24] MEDS: MEROPENEM 500 MG in DEXTROSE 5%-WATER 100 ML IVPB SCH (09:38)
[2019-02-24] MEDS: COLLAGENASE CLOSTRIDIUM HIST. 30 GRAMS TUBE TP SCH (09:39)
[2019-02-24] MEDS: NOREPINEPHRINE BITARTRATE 8,000 MCG in DEXTROSE 5%-WATER - 492 ML IV SCH ×2 (11:20→23:19)
--- NOTE | 2019-02-24 17:20 | PN ---
Progress Note (short form) - Note Progress Note: remains on pressors- much more alert answers to name, doesn't know where he is follows simple commands Vital Signs Period Temp Pulse Resp BP Sys/Zamorano Pulse Ox Last 24 Hr 97.9 F-100.5 F 94-103 17-29 93-115/40-72 95-96 cor-rrr lungs decreased bs at bases contracted- scrotal lesion is shallow sacral lesion is shallow ext contracted gangrenous foulsmelling feet CBC, BMP 02/24/19 05:10 02/24/19 05:10 Microbiology 02/23/19 11:50 Blood - Peripheral Venous Blood Culture - Preliminary NO GROWTH OBTAINED AFTER 24 HOURS, INCUBATION TO CONTINUE FOR 4 DAYS. 02/23/19 11:50 Blood - Peripheral Venous Blood Culture - Preliminary NO GROWTH OBTAINED AFTER 24 HOURS, INCUBATION TO CONTINUE FOR 4 DAYS. 02/21/19 13:16 Blood - Peripheral Venous Blood Culture - Preliminary Proteus Mirabilis Pending Organism 02/21/19 16:30 Foot - Left Heel Gram Stain - Final 02/21/19 16:30 Foot - Left Heel Wound Culture - Final Escherichia Coli Esbl [employer] Clerk Morganella Morganii 02/21/19 15:40 Blood - Peripheral Venous Blood Culture - Final Proteus Mirabilis 02/21/19 14:50 Urine - Urine - Catheterized Urine Culture - Final NO GROWTH OBTAINED Current Medications Albumin Human (Albumin Human 25%) 12.5 gm IVPB Q30M [facility] Albuterol/Ipratropium (Duoneb -) 1 amp NEB Q6H PRN PRN Reason: SHORTNESS OF BREATH Allopurinol (Zyloprim -) 100 mg PO DAILY [facility] Last Admin: 02/23/19 09:23 Dose: Not Given Amino Acids (Prosource No Carb Liquid Pkt) 30 ml PO TID [facility] Last Admin: 02/23/19 07:29 Dose: Not Given Apixaban (Eliquis -) 2.5 mg PO BID [facility] Last Admin: 02/23/19 09:21 Dose: Not Given Atorvastatin Calcium (Lipitor -) 20 mg PO HS [facility] Last Admin: 02/22/19 21:45 Dose: 20 mg Collagenase (Santyl -) 1 applic TP DAILY [facility]; Protocol Last Admin: 02/23/19 09:37 Dose: 1 applic Collagenase (Santyl -) 1 applic TP DAILY [facility]; Protocol Last Admin: 02/23/19 09:37 Dose: 1 applic Epoetin Jose (Epogen -) 10,000 unit IVPUSH ONCE ONE Stop: 02/23/19 11:33 Escitalopram Oxalate (Lexapro -) 10 mg PO DAILY [facility] Last Admin: 02/23/19 09:21 Dose: Not Given Meropenem 500 mg/ Dextrose 100 mls @ 200 mls/hr IVPB Q24H [facility] Last Admin: 02/23/19 09:36 Dose: 200 mls/hr Norepinephrine Bitartrate 8, (000 mcg/ Dextrose) 500 mls @ 6.94 mls/hr IV ASDIR [facility]; Protocol Last Titration: 02/22/19 12:25 Dose: 0.16 mcg/kg/min, 37.5 mls/hr Sodium Chloride (Normal Saline -) 250 mls @ 3,000 mls/hr IV PRN PRN PRN Reason: Hypotension during Dialysis Stop: 02/23/19 11:32 Insulin Aspart (Novolog Vial Sliding Scale -) 1 vial SQ TIDAC [facility]; Protocol Last Admin: 02/23/19 07:29 Dose: Not Given Lactobacillus Acidophilus (Bacid -) 1 tab PO DAILY [facility] Last Admin: 02/23/19 09:21 Dose: Not Given Megestrol Acetate (Megace Oral Suspension -) 400 mg PO DAILY [facility] Last Admin: 02/23/19 09:22 Dose: Not Given Midodrine (Proamatine -) 5 mg PO SuTuThSa@1000 [facility] Last Admin: 02/23/19 09:22 Dose: Not Given Midodrine (Proamatine -) 10 mg PO MoWeFr@1000 [facility] Last Admin: 02/22/19 12:39 Dose: Not Given Multivitamins/Minerals/Vitamin C (Tab-A-Vit -) 1 tab PO DAILY [facility] Last Admin: 02/23/19 09:23 Dose: Not Given Sevelamer Carbonate (Renvela -) 1,600 mg PO TIDCM [facility] Last Admin: 02/23/19 08:29 Dose: Not Given Tamsulosin HCl (Flomax -) 0.4 mg PO HS [facility] Last Admin: 02/22/19 21:45 Dose: 0.4 mg a/p gram negative sepsis-proteus and anaerobe suspected secondary to gangrenous legs esrd/hd switch to ceftriaxone/flagyl overall prognosis is poor staff is attempting to reach next of kin-no response Problem List - Problems (1) Gram negative sepsis Code(s): A41.50 - GRAM-NEGATIVE SEPSIS, UNSPECIFIED (2) Gangrene of both feet Code(s): I96 - GANGRENE, NOT ELSEWHERE CLASSIFIED (3) ESRD (end stage renal disease) on dialysis Code(s): N18.6 - END STAGE RENAL DISEASE; Z99.2 - DEPENDENCE ON RENAL DIALYSIS (4) MRSA (methicillin resistant 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 coli carrier Code(s): Z22.39 - CARRIER OF OTHER SPECIFIED BACTERIAL DISEASES (6) VRE (vancomycin-resistant Enterococci) Code(s): A49.1 - STREPTOCOCCAL INFECTION, UNSPECIFIED SITE; Z16.21 - RESISTANCE TO VANCOMYCIN
[2019-02-24] MEDS: TAMSULOSIN HCL 0.4 MG CAP PO SCH (21:59)
[2019-02-24] MEDS: ATORVASTATIN CA 20 MG TABLET (FP) PO SCH (21:59)
[2019-02-25] MEDS ORDERED: ACETAMINOPHEN 1000 MG/100 ML VIAL (NON FORMULARY) IVPB ONE (04:11)
[2019-02-25] MEDS: AMINO ACIDS/PROTEIN HYDROLYS 30 ML LIQUID.PKT PO SCH ×4 (06:16→21:29)
[2019-02-25 06:20] LABS: BASO % 0.5 % (0-2.0); EOS % 0.5 % (0-4.5); HEMATOCRIT 24.6 % (35.4-49); HEMOGLOBIN 7.6 GM/dL (11.7-16.9); LYMPH % 17.2 % (8-40); MCH 28.3 pg (25.7-33.7); MEAN CELL VOLUME 91.3 fl (80-96); MEAN PLT VOLUME 8.3 fl (7.5-11.1); MONO % 6.1 % (3.8-10.2); NEUT % 75.7 % (42.8-82.8); PLATELET COUNT 489 K/MM3 (134-434); RDW 17.8 % (11.9-15.9); WHITE BLOOD COUNT 10.4 K/mm3 (4.0-10.0)
[2019-02-25 06:45] LABS: CALCIUM 8.2 mg/dL (8.5-10.1); CREATININE 3.6 mg/dL (0.55-1.3); MAGNESIUM 2.6 mg/dL (1.8-2.4); PHOSPHOROUS 1.9 mg/dL (2.5-4.9); POTASSIUM 3.4 mmol/L (3.5-5.1)
[2019-02-25] MEDS: INSULIN SLIDING SCALE (NOVOLOG) 1 VIAL SQ SCH ×3 (06:45→16:46)
[2019-02-25] MEDS: SEVELAMER CARBONATE 800 MG TAB (FP) PO SCH ×4 (08:37→17:28)
--- NOTE | 2019-02-25 08:56 | PN ---
Physical Exam: SUBJECTIVE: Patient seen and examined at bedside. noted hypotension...septic shock requiring pressors and ICU. no acute events overnight. resisted NGT yesterday. currently levo 10 OBJECTIVE: Vital Signs Period Temp Pulse Resp BP Sys/Zamorano Pulse Ox Last 24 Hr 97.5 F-99.8 F 82-98 17-29 101-128/47-62 97-98 GENERAL: lethargic groggy. arousable to voice EARS, NOSE, THROAT: dry mucous membranes. LUNGS: CTAB HEART: irregularly irregular s1s2 normal ABDOMEN: Soft, NTND normoactive bowel sounds, ulcer present on sacrum unstagable with foul discharge, scrotum has ulcer no discharge MUSCULOSKELETAL: Normal range of motion at all joints. No bony deformities or tenderness. No CVA tenderness. UPPER EXTREMITIES: 2+ pulses, warm, well-perfused. LOWER EXTREMITIES: b/l wet gangrene with fouls smelling discharge SKIN: Warm, dry, Neuo: lethargic, responsive to pain. Laboratory Results - last 24 hr 02/24/19 02/24/19 02/25/19 10:49 20:47 05:30 WBC 10.4 H RBC 2.70 L Hgb 7.6 L Hct 24.6 L MCV 91.3 MCH 28.3 MCHC 31.0 L RDW 17.8 H Plt Count 489 H MPV 8.3 Absolute Neuts (auto) 7.9 Neutrophils % 75.7 Lymphocytes % 17.2 Monocytes % 6.1 Eosinophils % 0.5 Basophils % 0.5 Nucleated RBC % 0 Sodium Potassium Chloride Carbon Dioxide Anion Gap BUN Creatinine Est GFR (CKD-EPI)AfAm Est GFR (CKD-EPI)NonAf POC Glucometer 143 138 Random Glucose Calcium Phosphorus Magnesium 02/25/19 02/25/19 05:30 06:19 WBC RBC Hgb Hct MCV MCH MCHC RDW Plt Count MPV Absolute Neuts (auto) Neutrophils % Lymphocytes % Monocytes % Eosinophils % Basophils % Nucleated RBC % Sodium 138 Potassium 3.4 L Chloride 101 Carbon Dioxide 29 Anion Gap 8 BUN 28 H Creatinine 3.6 H Est GFR (CKD-EPI)AfAm 18.18 Est GFR (CKD-EPI)NonAf 15.69 POC Glucometer 140 Random Glucose 129 H Calcium 8.2 L Phosphorus 1.9 L Magnesium 2.6 H Active Medications Generic Name Dose Route Start Last Admin Trade Name Kassandra PRN Reason Stop Dose Admin Albuterol/Ipratropium 1 amp 02/21/19 19:04 Duoneb - NEB Q6H PRN SHORTNESS OF BREATH Allopurinol 100 mg 02/22/19 10:00 02/24/19 09:13 Zyloprim - PO Not Given DAILY [facility] Amino Acids 30 ml 02/21/19 22:00 02/25/19 06:16 Prosource No Carb Liquid Pkt PO Not Given TID [facility] Apixaban 2.5 mg 02/21/19 22:00 02/24/19 21:33 Eliquis - PO Not Given BID [facility] Atorvastatin Calcium 20 mg 02/21/19 22:00 02/24/19 21:59 Lipitor - PO Not Given HS [facility] Collagenase 1 applic 02/22/19 10:00 02/24/19 09:39 Santyl - TP 1 applic DAILY [facility] Administration Protocol Escitalopram Oxalate 10 mg 02/22/19 10:00 02/24/19 09:12 Lexapro - PO Not Given DAILY [facility] Norepinephrine Bitartrate 8, 500 mls @ 18.75 mls/hr 02/23/19 12:45 02/24/19 23:19 000 mcg/ Dextrose IV 10 mcg/min TITR [facility] 37.5 mls/hr Administration Protocol 5 MCG/MIN Ceftriaxone Sodium 2 gm/ 100 mls @ 200 mls/hr 02/25/19 10:00 Dextrose IVPB DAILY [facility] Protocol Metronidazole 500 mg in 100 mls @ 100 mls/hr 02/24/19 18:00 02/25/19 01:59 Flagyl 500mg Premixed Ivpb - IVPB 100 mls/hr Q8H-IV [facility] Administration Insulin Aspart 1 vial 02/22/19 07:00 02/25/19 06:45 Novolog Vial Sliding Scale - SQ Not Given TIDAC [facility] Protocol Lactobacillus Acidophilus 1 tab 02/22/19 10:00 02/24/19 09:12 Bacid - PO Not Given DAILY [facility] Midodrine 5 mg 02/23/19 10:00 02/24/19 09:13 Proamatine - PO Not Given SuTuThSa@1000 [facility] Midodrine 10 mg 02/22/19 10:00 02/22/19 12:39 Proamatine - PO Not Given MoWeFr@1000 [facility] Multivitamins/Minerals/Vitamin C 1 tab 02/22/19 10:00 02/24/19 09:13 Tab-A-Vit - PO Not Given DAILY [facility] Sevelamer Carbonate 1,600 mg 02/22/19 08:00 02/25/19 08:37 Renvela - PO Not Given TIDCM [facility] Tamsulosin HCl 0.4 mg 02/21/19 22:00 02/24/19 21:59 Flomax - PO Not Given HS [facility] ASSESSMENT/PLAN: 73 yo M PMH dementia, CVA, DM, COPD, ESRD, gout, HTN, HLP, recent admission 01/31- 02/19 during which he was treated for sepsis due to infected b/l feet ulcers/ gangrene. He was sent form NH due to poor po intake, and worsening of ulcers. Now in septic shock 2/2 DM gangrenous B/L feet infx, Infected sacral decub and scrotal ulcer, and GN bacteremia , requiring ICU and pressors #septic shock 2/2 DM gangrenous B/L feet infx, Infected sacral decub and scrotal ulcer, and GN bacteremia (proteus) - requiring ICU and pressors, +L IJ. +Leukocytosis -old cx with E coli, ESBL, MRSA, and VRE. -contact isolation for MDRO -s/p Vanc and Zosyn in the ED, Gentamicin x1, Meropenem x2 in ICU -Bcx growing gram negative cher - proteus -ucx neg -wound cx e coli, morganella -ID consulted, Rangel -lactic acid downtrended to 1.6 -palliative care consulted -change position q2h -c/w ceftriaxone 2g/flagyl, per ID recs -NPO pending bedside swallow eval -Aspiration precautions. -Levophed gtt 10, Titrate pressors to keep MAP>65 -vascular surgery consulted, Dr harry, for wound care. amputation indicated, but family not amenable. cont GOC -per ID no vanc, cx show no MRSA for >48hr #ESRD on HD (MWF) -nephro consulted (Dr. Henriquez) -HD tomorrow #Acute on chronic anemia likely 2/2 ESRD -monitor H/H #COPD -keep SpO2>90% -Duonebs q6h PRN #Dm ISS BGM ACHS #H/o hypotension : cont home midodrine monitor vitals # h/o afib c/w elequis 2.5 bid may need heparin gtt if pt fails swallo eval and cant pass NGT #FEN -Not on any standing fluids -replete prn -NPO pending swallow eval #Prophylaxis -Eliquis 2.5mg BID #Disposition -full code -GOC/ethics consult placed, as we have attempted multiple times to contact daughter who has not responded and in the past has not been amenable to to allow for source control/amputation and standard of care. given patients inability to make decisions for himself and daughter unwillingness pt will likely cont to suffer w/o improvement and has spoor prognosis -ICU monitoring Visit type - Emergency Visit Emergency Visit: Yes ED Registration Date: 02/21/19 Care time: The patient presented to the Emergency Department on the above date and was hospitalized for further evaluation of their emergent condition. - New Patient This patient is new to me today: Yes Date on this admission: 02/25/19 - Critical Care Critical Care patient: Yes Total Critical Care Time (in minutes): 39 Critical Care Statement: The care of this patient involved high complexity decision making to prevent further life threatening deterioration of the patient 's condition and/or to evaluate & treat vital organ system(s) failure or risk of failure.
[2019-02-25] MEDS ORDERED: PT OWN MED DRAWER 7, Y5N ONE (09:43)
[2019-02-25] MEDS ORDERED: DEXTROSE 5%-WATER 100 ML IVPB ONE (09:43)
[2019-02-25] MEDS: CEFTRIAXONE 2 GM in DEXTROSE 5%-WATER 100 ML IVPB SCH (09:57)
--- NOTE | 2019-02-25 09:58 | PN ---
Progress Note (short form) - Note Progress Note: arousable to name follows simple commands, can move his hands remains on levophed Vital Signs Period Temp Pulse Resp BP Sys/Zamorano Pulse Ox Last 24 Hr 97.5 F-99.8 F 82-98 17-27 101-128/50-62 97-98 cor-rrr lungs decreased bs at bases abd soft,nt ext bilateral gangrenous ulcers both feet shallow ulcers scrotum, sacrum CBC, BMP 02/25/19 05:30 02/25/19 05:30 Microbiology 02/21/19 13:16 Blood - Peripheral Venous Blood Culture - Preliminary Proteus Mirabilis Anaerobic Gram Neg Bacilli 02/23/19 11:50 Blood - Peripheral Venous Blood Culture - Preliminary NO GROWTH OBTAINED AFTER 24 HOURS, INCUBATION TO CONTINUE FOR 4 DAYS. 02/23/19 11:50 Blood - Peripheral Venous Blood Culture - Preliminary NO GROWTH OBTAINED AFTER 24 HOURS, INCUBATION TO CONTINUE FOR 4 DAYS. 02/21/19 16:30 Foot - Left Heel Gram Stain - Final 02/21/19 16:30 Foot - Left Heel Wound Culture - Final Escherichia Coli Esbl [employer] Supervisor Morganella Morganii 02/21/19 15:40 Blood - Peripheral Venous Blood Culture - Final Proteus Mirabilis 02/21/19 14:50 Urine - Urine - Catheterized Urine Culture - Final NO GROWTH OBTAINED Microbiology 02/21/19 13:16 Blood - Peripheral Venous Blood Culture - Preliminary Proteus Mirabilis Anaerobic Gram Neg Bacilli 02/23/19 11:50 Blood - Peripheral Venous Blood Culture - Preliminary NO GROWTH OBTAINED AFTER 24 HOURS, INCUBATION TO CONTINUE FOR 4 DAYS. 02/23/19 11:50 Blood - Peripheral Venous Blood Culture - Preliminary NO GROWTH OBTAINED AFTER 24 HOURS, INCUBATION TO CONTINUE FOR 4 DAYS. 02/21/19 16:30 Foot - Left Heel Gram Stain - Final 02/21/19 16:30 Foot - Left Heel Wound Culture - Final Escherichia Coli Esbl [employer] Mix[employer] Supervisor Morganella Morganii 02/21/19 15:40 Blood - Peripheral Venous Blood Culture - Final Proteus Mirabilis 02/21/19 14:50 Urine - Urine - Catheterized Urine Culture - Final NO GROWTH OBTAINED Current Medications Albuterol/Ipratropium (Duoneb -) 1 amp NEB Q6H PRN PRN Reason: SHORTNESS OF BREATH Allopurinol (Zyloprim -) 100 mg PO DAILY [facility] Last Admin: 02/24/19 09:13 Dose: Not Given Amino Acids (Prosource No Carb Liquid Pkt) 30 ml PO TID [facility] Last Admin: 02/25/19 06:16 Dose: Not Given Apixaban (Eliquis -) 2.5 mg PO BID [facility] Last Admin: 02/24/19 21:33 Dose: Not Given Atorvastatin Calcium (Lipitor -) 20 mg PO HS [facility] Last Admin: 02/24/19 21:59 Dose: Not Given Collagenase (Santyl -) 1 applic TP DAILY [facility]; Protocol Last Admin: 02/24/19 09:39 Dose: 1 applic Escitalopram Oxalate (Lexapro -) 10 mg PO DAILY [facility] Last Admin: 02/24/19 09:12 Dose: Not Given Norepinephrine Bitartrate 8, (000 mcg/ Dextrose) 500 mls @ 18.75 mls/hr IV TITR [facility]; Protocol Last Admin: 02/24/19 23:19 Dose: 10 mcg/min, 37.5 mls/hr Ceftriaxone Sodium 2 gm/ (Dextrose) 100 mls @ 200 mls/hr IVPB DAILY [facility]; Protocol Last Admin: 02/25/19 09:57 Dose: 200 mls/hr Metronidazole (Flagyl 500mg Premixed Ivpb -) 500 mg in 100 mls @ 100 mls/hr IVPB Q8H-IV [facility] Last Admin: 02/25/19 10:05 Dose: 100 mls/hr Insulin Aspart (Novolog Vial Sliding Scale -) 1 vial SQ TIDAC [facility]; Protocol Last Admin: 02/25/19 06:45 Dose: Not Given Lactobacillus Acidophilus (Bacid -) 1 tab PO DAILY [facility] Last Admin: 02/24/19 09:12 Dose: Not Given Midodrine (Proamatine -) 5 mg PO SuTuThSa@1000 [facility] Last Admin: 02/24/19 09:13 Dose: Not Given Midodrine (Proamatine -) 10 mg PO MoWeFr@1000 [facility] Last Admin: 02/22/19 12:39 Dose: Not Given Multivitamins/Minerals/Vitamin C (Tab-A-Vit -) 1 tab PO DAILY [facility] Last Admin: 02/24/19 09:13 Dose: Not Given Sevelamer Carbonate (Renvela -) 1,600 mg PO TIDCM [facility] Last Admin: 02/25/19 08:37 Dose: Not Given Tamsulosin HCl (Flomax -) 0.4 mg PO HS [facility] Last Admin: 02/24/19 21:59 Dose: Not Given a/p polymicrobial gram negative sepsis-proteus and anaerobe suspected secondary to gangrenous legs esrd/hd continue ceftriaxone/flagyl day #3 antibiotics overall prognosis is poor d/w ICU staff Problem List - Problems (1) Gram negative sepsis Code(s): A41.50 - GRAM-NEGATIVE SEPSIS, UNSPECIFIED (2) Gangrene of both feet Code(s): I96 - GANGRENE, NOT ELSEWHERE CLASSIFIED (3) ESRD (end stage renal disease) on dialysis Code(s): N18.6 - END STAGE RENAL DISEASE; Z99.2 - DEPENDENCE ON RENAL DIALYSIS (4) MRSA (methicillin resistant 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 coli carrier Code(s): Z22.39 - CARRIER OF OTHER SPECIFIED BACTERIAL DISEASES (6) VRE (vancomycin-resistant Enterococci) Code(s): A49.1 - STREPTOCOCCAL INFECTION, UNSPECIFIED SITE; Z16.21 - RESISTANCE TO VANCOMYCIN
[2019-02-25] MEDS: ESCITALOPRAM OXALATE 10 MG TABLET (FP) PO SCH (10:57)
[2019-02-25] MEDS: LACTOBACILLUS ACIDOPHILUS 1 TABLET PO SCH (10:58)
[2019-02-25] MEDS: MULTIVITAMINS (DAILY MVI) TABLET (FP) PO SCH (10:58)
[2019-02-25] MEDS: ALLOPURINOL 100 MG TABLET (FP) PO SCH (10:58)
[2019-02-25] MEDS: APIXABAN 2.5 MG TABLET PO SCH ×2 (11:00→21:29)
[2019-02-25] MEDS: MIDODRINE HCL 5 MG TABLET PO SCH (11:00)
--- NOTE | 2019-02-25 11:30 | EKG ---
Test Reason : Blood Pressure : / mmHG Vent. Rate : 088 BPM Atrial Rate : 087 BPM P-R Int : 000 ms QRS Dur : 086 ms QT Int : 386 ms P-R-T Axes : 000 055 139 degrees QTc Int : 467 ms LIKELY SINUS RHYTHM T WAVE ABNORMALITY, CONSIDER LATERAL ISCHEMIA ABNORMAL ECG WHEN COMPARED WITH ECG OF 31-JAN-2019 17:39, PROBABLE NO SIGNIFICANT CHANGES Confirmed by CHERELLE HEARD MD ([id number]) on 02/25/2019 11:29:50 AM Referred By: Confirmed By:CHERELLE HEARD MD
--- NOTE | 2019-02-25 12:27 | PN ---
Teaching Attending Note Name of Resident: Gen Hurd ATTENDING PHYSICIAN STATEMENT I saw and evaluated the patient. I reviewed the resident's note and discussed the case with the resident. I agree with the resident's findings and plan as documented. SUBJECTIVE: No events over night . not able to take HPI OBJECTIVE: NAD, comfortable. contracted CV: RRR, no MRG Lungs: clear anteriorly, decreased breath sounds, poor effort. Abd: soft, Nt, ND , NL BS SKin : sacral and scrotal decub did not change EXt: ASSESSMENT AND PLAN: 73 y/o man with h/o dementia, CVA, DM, COPD, ESRD, gout, HTN, HLP, recent admission 01/31-02/19 during which he was treated for sepsis due to infected b/l feet ulcers/gangrene. He was sent form NH due to poor po intake, and non healing wounds 1- Gangrene of b/l feet. infection in diabetic feet. 2- Septic shock 3- Infected sacral decub and scrotal ulcer 4- Proteus bacteremia ,polymicrobial wound 5- ESRD 6- DM 7- hypophosphatemia 8- hypokalemia plan : - Abx: d/w ID , ceftiraxone and flagyl - follow repeat blood cx. and final original blood cx ( pending anaerobic organism) - cont Levophed - HD per schedule - monitor electrolytes . - awaiting surgicla consult - SSI - will try to reach daughter today Ethics consult Critical Care Total Critical Care Time (in minutes): 30 Critical Care Statement: The care of this patient involved high complexity decision making to prevent further life threatening deterioration of the patient 's condition and/or to evaluate & treat vital organ system(s) failure or risk of failure.
--- NOTE | 2019-02-25 12:31 | PN ---
Progress Note, Physician History of Present Illness: Pt seen and examined at bedside. He remains in the ICU. He remains on pressors. - Current Medication List Current Medications: Active Medications Albuterol/Ipratropium (Duoneb -) 1 amp NEB Q6H PRN PRN Reason: SHORTNESS OF BREATH Allopurinol (Zyloprim -) 100 mg PO DAILY [facility] Last Admin: 02/25/19 10:58 Dose: 100 mg Amino Acids (Prosource No Carb Liquid Pkt) 30 ml PO TID [facility] Last Admin: 02/25/19 06:16 Dose: Not Given Apixaban (Eliquis -) 2.5 mg PO BID [facility] Last Admin: 02/25/19 11:00 Dose: 2.5 mg Atorvastatin Calcium (Lipitor -) 20 mg PO HS [facility] Last Admin: 02/24/19 21:59 Dose: Not Given Collagenase (Santyl -) 1 applic TP DAILY [facility]; Protocol Last Admin: 02/24/19 09:39 Dose: 1 applic Escitalopram Oxalate (Lexapro -) 10 mg PO DAILY [facility] Last Admin: 02/25/19 10:57 Dose: 10 mg Norepinephrine Bitartrate 8, (000 mcg/ Dextrose) 500 mls @ 18.75 mls/hr IV TITR [facility]; Protocol Last Titration: 02/25/19 10:00 Dose: 10 mcg/min, 37.5 mls/hr Ceftriaxone Sodium 2 gm/ (Dextrose) 100 mls @ 200 mls/hr IVPB DAILY [facility]; Protocol Last Admin: 02/25/19 09:57 Dose: 200 mls/hr Metronidazole (Flagyl 500mg Premixed Ivpb -) 500 mg in 100 mls @ 100 mls/hr IVPB Q8H-IV [facility] Last Admin: 02/25/19 10:05 Dose: 100 mls/hr Insulin Aspart (Novolog Vial Sliding Scale -) 1 vial SQ TIDAC [facility]; Protocol Last Admin: 02/25/19 06:45 Dose: Not Given Lactobacillus Acidophilus (Bacid -) 1 tab PO DAILY [facility] Last Admin: 02/25/19 10:58 Dose: 1 tab Midodrine (Proamatine -) 5 mg PO SuTuThSa@1000 [facility] Last Admin: 02/24/19 09:13 Dose: Not Given Midodrine (Proamatine -) 10 mg PO MoWeFr@1000 [facility] Last Admin: 02/25/19 11:00 Dose: 10 mg Multivitamins/Minerals/Vitamin C (Tab-A-Vit -) 1 tab PO DAILY [facility] Last Admin: 02/25/19 10:58 Dose: 1 tab Sevelamer Carbonate (Renvela -) 1,600 mg PO TIDCM [facility] Last Admin: 02/25/19 08:37 Dose: Not Given Tamsulosin HCl (Flomax -) 0.4 mg PO HS [facility] Last Admin: 02/24/19 21:59 Dose: Not Given - Objective Vital Signs: Vital Signs Temperature 98.3 F 02/25/19 10:00 Pulse Rate 75 02/25/19 10:30 Respiratory Rate 18 02/25/19 10:30 Blood Pressure 128/64 02/25/19 10:30 O2 Sat by Pulse Oximetry (%) 98 02/25/19 10:00 Constitutional: Yes: Calm Eyes: Yes: Conjunctiva Clear HENT: Yes: Atraumatic Neck: Yes: Supple Cardiovascular: Yes: S1, S2 Respiratory: Yes: On Nasal O2 Gastrointestinal: Yes: Soft Genitourinary: Yes: Incontinence Musculoskeletal: Yes: Muscle Weakness Edema: No Wound/Incision: Yes: Dressing Dry and Intact Neurological: Yes: Confusion Labs: CBC, BMP 02/25/19 05:30 02/25/19 05:30 INR, PTT INR 1.44 (0.83-1.09) H 02/22/19 05:40 Assessment/Plan Current Medications Generic Name Dose Route Start Last Admin Trade Name Freq PRN Reason Stop Dose Admin Albuterol/Ipratropium 1 amp 02/21/19 19:04 Duoneb - NEB Q6H PRN SHORTNESS OF BREATH Allopurinol 100 mg 02/22/19 10:00 02/25/19 10:58 Zyloprim - PO 100 mg DAILY [facility] Administration Amino Acids 30 ml 02/21/19 22:00 02/25/19 06:16 Prosource No Carb Liquid Pkt PO Not Given TID [facility] Apixaban 2.5 mg 02/21/19 22:00 02/25/19 11:00 Eliquis - PO 2.5 mg BID [facility] Administration Atorvastatin Calcium 20 mg 02/21/19 22:00 02/24/19 21:59 Lipitor - PO Not Given HS [facility] Collagenase 1 applic 02/22/19 10:00 06/02/19 09:39 Santyl - TP 1 applic DAILY [facility] Administration Protocol Escitalopram Oxalate 10 mg 02/22/19 10:00 02/25/19 10:57 Lexapro - PO 10 mg DAILY [facility] Administration Norepinephrine Bitartrate 8, 500 mls @ 18.75 mls/hr 02/23/19 12:45 02/25/19 10:00 000 mcg/ Dextrose IV 10 mcg/min TITR [facility] 37.5 mls/hr Titration Protocol 5 MCG/MIN Ceftriaxone Sodium 2 gm/ 100 mls @ 200 mls/hr 02/25/19 10:00 02/25/19 09:57 Dextrose IVPB 200 mls/hr DAILY [facility] Administration Protocol Metronidazole 500 mg in 100 mls @ 100 mls/hr 02/24/19 18:00 02/25/19 10:05 Flagyl 500mg Premixed Ivpb - IVPB 100 mls/hr Q8H-IV [facility] Administration Insulin Aspart 1 vial 02/22/19 07:00 02/25/19 06:45 Novolog Vial Sliding Scale - SQ Not Given TIDAC [facility] Protocol Lactobacillus Acidophilus 1 tab 02/22/19 10:00 02/25/19 10:58 Bacid - PO 1 tab DAILY [facility] Administration Midodrine 5 mg 02/23/19 10:00 02/24/19 09:13 Proamatine - PO Not Given SuTuThSa@1000 [facility] Midodrine 10 mg 02/22/19 10:00 02/25/19 11:00 Proamatine - PO 10 mg MoWeFr@1000 [facility] Administration Multivitamins/Minerals/Vitamin C 1 tab 02/22/19 10:00 02/25/19 10:58 Tab-A-Vit - PO 1 tab DAILY [facility] Administration Sevelamer Carbonate 1,600 mg 02/22/19 08:00 02/25/19 08:37 Renvela - PO Not Given TIDCM [facility] Tamsulosin HCl 0.4 mg 02/21/19 22:00 02/24/19 21:59 Flomax - PO Not Given HS [facility] Laboratory Tests 02/23/19 06:20 Cortisol AM Sample Pending Impression 1. ESRD 2. gangrene 3. DM 4. hyperlipidemia 5. HTN 6. gout 7. proteinuria 8. hypotension 9. sepsis Plan - HD tomorrow - maintain map 65 - abx per ID - family refusing surgery
--- NOTE | 2019-02-25 12:42 | PN ---
Teaching Attending Note Name of Resident: Gualberto Eagle ATTENDING PHYSICIAN STATEMENT I saw and evaluated the patient. I reviewed the resident's note and discussed the case with the resident. I agree with the resident's findings and plan as documented. SUBJECTIVE: Patient seen and examined in the ICU. Lethargic. Remains on NE @ 10 mcq for hemodynamic support. No PO intake due to lethargy. Intake & Output 02/22/19 02/23/19 02/24/19 02/25/19 23:59 23:59 23:59 23:59 Intake Total 767.5 720 897.5 510 Balance 767.5 720 897.5 510 Weight 139 lb 138 lb 136 lb 8 oz 136 lb 1.6 oz Last Vital Signs Temp Pulse Resp BP Pulse Ox 98.3 F 77 18 123/68 98 02/25/19 10:00 02/25/19 12:00 02/25/19 12:00 02/25/19 12:00 02/25/19 10:00 Active Medications Albuterol/Ipratropium (Duoneb -) 1 amp NEB Q6H PRN PRN Reason: SHORTNESS OF BREATH Allopurinol (Zyloprim -) 100 mg PO DAILY [facility]ANTELL Last Admin: 02/25/19 10:58 Dose: 100 mg Amino Acids (Prosource No Carb Liquid Pkt) 30 ml PO TID CHANTELL Last Admin: 02/25/19 06:16 Dose: Not Given Apixaban (Eliquis -) 2.5 mg PO BID [facility]ANTELL Last Admin: 02/25/19 11:00 Dose: 2.5 mg Atorvastatin Calcium (Lipitor -) 20 mg PO HS [facility]ANTELL Last Admin: 02/24/19 21:59 Dose: Not Given Collagenase (Santyl -) 1 applic TP DAILY [facility]ANTELL; Protocol Last Admin: 02/24/19 09:39 Dose: 1 applic Escitalopram Oxalate (Lexapro -) 10 mg PO DAILY CHANTELL Last Admin: 02/25/19 10:57 Dose: 10 mg Norepinephrine Bitartrate 8, (000 mcg/ Dextrose) 500 mls @ 18.75 mls/hr IV TITR [facility]ANTE[facility]; Protocol Last Titration: 02/25/19 10:00 Dose: 10 mcg/min, 37.5 mls/hr Ceftriaxone Sodium 2 gm/ (Dextrose) 100 mls @ 200 mls/hr IVPB DAILY [facility]ANTELL; Protocol Last Admin: 02/25/19 09:57 Dose: 200 mls/hr Metronidazole (Flagyl 500mg Premixed Ivpb -) 500 mg in 100 mls @ 100 mls/hr IVPB Q8H-IV [facility] Last Admin: 02/25/19 10:05 Dose: 100 mls/hr Sodium Chloride (Normal Saline -) 250 mls @ 3,000 mls/hr IV PRN PRN PRN Reason: Hypotension during Dialysis Stop: 02/26/19 12:31 Insulin Aspart (Novolog Vial Sliding Scale -) 1 vial SQ TIDAC [facility]; Protocol Last Admin: 02/25/19 12:31 Dose: Not Given Lactobacillus Acidophilus (Bacid -) 1 tab PO DAILY [facility] Last Admin: 02/25/19 10:58 Dose: 1 tab Midodrine (Proamatine -) 5 mg PO [email or web address] [facility] Last Admin: 02/24/19 09:13 Dose: Not Given Midodrine (Proamatine -) 10 mg PO [email or web address]@1000 [facility] Last Admin: 02/25/19 11:00 Dose: 10 mg Morphine Sulfate (Morphine Sulfate) 2 mg IVPUSH Q6H PRN PRN Reason: PAIN LEVEL 6-10 Multivitamins/Minerals/Vitamin C (Tab-A-Vit -) 1 tab PO DAILY [facility] Last Admin: 02/25/19 10:58 Dose: 1 tab Sevelamer Carbonate (Renvela -) 1,600 mg PO TIDCM [facility] Last Admin: 02/25/19 08:37 Dose: Not Given Tamsulosin HCl (Flomax -) 0.4 mg PO HS [facility] Last Admin: 02/24/19 21:59 Dose: Not Given Constitutional: Yes: Lethargic but arousable and follows simple commands Eyes: Yes: Conjunctiva Clear HENT: Yes: Atraumatic, Normocephalic Neck: Yes: Supple Cardiovascular: Yes: Regular Rate and Rhythm, Other (permacath site no erythema , no drainage) Respiratory: Yes: bilateral rhonchi Gastrointestinal: Yes: Normal Bowel Sounds, Soft Extremities: Yes: Other (contracted, foul smelling gangrenous wounds both feet) Edema: Yes Edema: No Labs: Laboratory Results - last 24 hr 02/24/19 02/25/19 02/25/19 20:47 05:30 05:30 WBC 10.4 H RBC 2.70 L Hgb 7.6 L Hct 24.6 L MCV 91.3 MCH 28.3 MCHC 31.0 L RDW 17.8 H Plt Count 489 H MPV 8.3 Absolute Neuts (auto) 7.9 Neutrophils % 75.7 Lymphocytes % 17.2 Monocytes % 6.1 Eosinophils % 0.5 Basophils % 0.5 Nucleated RBC % 0 Sodium 138 Potassium 3.4 L Chloride 101 Carbon Dioxide 29 Anion Gap 8 BUN 28 H Creatinine 3.6 H Est GFR (CKD-EPI)AfAm 18.18 Est GFR (CKD-EPI)NonAf 15.69 POC Glucometer 138 Random Glucose 129 H Calcium 8.2 L Phosphorus 1.9 L Magnesium 2.6 H 02/25/19 02/25/19 06:19 12:18 WBC RBC Hgb Hct MCV MCH MCHC RDW Plt Count MPV Absolute Neuts (auto) Neutrophils % Lymphocytes % Monocytes % Eosinophils % Basophils % Nucleated RBC % Sodium Potassium Chloride Carbon Dioxide Anion Gap BUN Creatinine Est GFR (CKD-EPI)AfAm Est GFR (CKD-EPI)NonAf POC Glucometer 140 135 Random Glucose Calcium Phosphorus Magnesium Problem List - Problems (1) Gram negative sepsis Code(s): A41.50 - GRAM-NEGATIVE SEPSIS, UNSPECIFIED (2) Gangrene of both feet Code(s): I96 - GANGRENE, NOT ELSEWHERE CLASSIFIED (3) ESRD (end stage renal disease) on dialysis Code(s): N18.6 - END STAGE RENAL DISEASE; Z99.2 - DEPENDENCE ON RENAL DIALYSIS (4) MRSA (methicillin resistant 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 coli carrier Code(s): Z22.39 - CARRIER OF OTHER SPECIFIED BACTERIAL DISEASES (6) VRE (vancomycin-resistant Enterococci) Code(s): A49.1 - STREPTOCOCCAL INFECTION, UNSPECIFIED SITE; Z16.21 - RESISTANCE TO VANCOMYCIN Assessment/Plan Gm negative septic shock likely from soft tissue infection Probable toxic metabolic encephalopathy Pressors to maintain MAP > 65 ABX per ID O2 as needed HD per Renal Aspiration precautions Local wound care per surgery Ethics meeting called to address family's lack of insight and seemingly inappropriateness of medical decision making Dr Palmer Critical care time spent in reviewing chart, evaluating patient and formulating plan - 36 minutes.
--- NOTE | 2019-02-25 12:49 | PN ---
Physical Exam: SUBJECTIVE: Patient seen and examined at bedside. No overnight events. Continued on 10 mcg Levo with MAPS above 65. Per Nurse, trial of 5 mcg resulted in MAP below 65 within 1 hour, Levo at 10 mcg. Pt follows basic commands, awake and alert with verbal stimulation but appears lethargic. OBJECTIVE: Vital Signs Period Temp Pulse Resp BP Sys/Zamorano Pulse Ox Last 24 Hr 97.5 F-99.8 F 71-95 17-27 88-128/49-68 97-98 GENERAL: The patient is awake, alert, baseline dementia, in no acute distress. HEAD: Normal with no signs of trauma. EYES: PERRL, extraocular movements intact, sclera anicteric, conjunctiva clear. No ptosis. ENT: Ears normal, nares patent, oropharynx clear without exudates, moist mucous membranes. NECK: Trachea midline, full range of motion, supple. LUNGS: Breath sounds equal, clear to auscultation bilaterally, no wheezes, no crackles, no accessory muscle use. HEART: Regular rate and rhythm, S1, S2 without murmur, rub or gallop. ABDOMEN: Soft, nontender, nondistended, normoactive bowel sounds, no guarding, no rebound, no hepatosplenomegaly, no masses. EXTREMITIES: bilateral gangrene lower ext down to the tendon on the left with unstageble sacral ulcer NEUROLOGICAL: Cranial nerves II through XII grossly intact. Follows basic commands PSYCH: Normal mood, normal affect. SKIN: bilateral gangrene lower ext down to the tendon on the left with purulent foul smelling discharge. Unstageble sacral ulcer with Laboratory Results - last 24 hr 02/24/19 02/25/19 02/25/19 20:47 05:30 05:30 WBC 10.4 H RBC 2.70 L Hgb 7.6 L Hct 24.6 L MCV 91.3 MCH 28.3 MCHC 31.0 L RDW 17.8 H Plt Count 489 H MPV 8.3 Absolute Neuts (auto) 7.9 Neutrophils % 75.7 Lymphocytes % 17.2 Monocytes % 6.1 Eosinophils % 0.5 Basophils % 0.5 Nucleated RBC % 0 Sodium 138 Potassium 3.4 L Chloride 101 Carbon Dioxide 29 Anion Gap 8 BUN 28 H Creatinine 3.6 H Est GFR (CKD-EPI)AfAm 18.18 Est GFR (CKD-EPI)NonAf 15.69 POC Glucometer 138 Random Glucose 129 H Calcium 8.2 L Phosphorus 1.9 L Magnesium 2.6 H 02/25/19 02/25/19 06:19 12:18 WBC RBC Hgb Hct MCV MCH MCHC RDW Plt Count MPV Absolute Neuts (auto) Neutrophils % Lymphocytes % Monocytes % Eosinophils % Basophils % Nucleated RBC % Sodium Potassium Chloride Carbon Dioxide Anion Gap BUN Creatinine Est GFR (CKD-EPI)AfAm Est GFR (CKD-EPI)NonAf POC Glucometer 140 135 Random Glucose Calcium Phosphorus Magnesium Active Medications Generic Name Dose Route Start Last Admin Trade Name Freq PRN Reason Stop Dose Admin Albuterol/Ipratropium 1 amp 02/21/19 19:04 Duoneb - NEB Q6H PRN SHORTNESS OF BREATH Allopurinol 100 mg 02/22/19 10:00 02/25/19 10:58 Zyloprim - PO 100 mg DAILY CHANTELL Administration Amino Acids 30 ml 02/21/19 22:00 02/25/19 06:16 Prosource No Carb Liquid Pkt PO Not Given TID CHANTELL Apixaban 2.5 mg 02/21/19 22:00 02/25/19 11:00 Eliquis - PO 2.5 mg BID CHANTELL Administration Atorvastatin Calcium 20 mg 02/21/19 22:00 02/24/19 21:59 Lipitor - PO Not Given HS CHANTELL Collagenase 1 applic 02/22/19 10:00 02/24/19 09:39 Santyl - TP 1 applic DAILY CHANTELL Administration Protocol Escitalopram Oxalate 10 mg 02/22/19 10:00 02/25/19 10:57 Lexapro - PO 10 mg DAILY CHANTELL Administration Norepinephrine Bitartrate 8, 500 mls @ 18.75 mls/hr 02/23/19 12:45 02/25/19 10:00 000 mcg/ Dextrose IV 10 mcg/min TITR CHANTELL 37.5 mls/hr Titration Protocol 5 MCG/MIN Ceftriaxone Sodium 2 gm/ 100 mls @ 200 mls/hr 02/25/19 10:00 02/25/19 09:57 Dextrose IVPB 200 mls/hr DAILY CHANTELL Administration Protocol Metronidazole 500 mg in 100 mls @ 100 mls/hr 02/24/19 18:00 02/25/19 10:05 Flagyl 500mg Premixed Ivpb - IVPB 100 mls/hr Q8H-IV CHANTELL Administration Sodium Chloride 250 mls @ 3,000 mls/hr 02/25/19 12:31 Normal Saline - IV 02/26/19 12:31 PRN PRN Hypotension during Dialysis Insulin Aspart 1 vial 02/22/19 07:00 02/25/19 12:31 Novolog Vial Sliding Scale - SQ Not Given TIDAC [facility] Protocol Lactobacillus Acidophilus 1 tab 02/22/19 10:00 02/25/19 10:58 Bacid - PO 1 tab DAILY CHANTELL Administration Midodrine 5 mg 02/23/19 10:00 02/24/19 09:13 Proamatine - PO Not Given [email or web address] CHANTELL Midodrine 10 mg 02/22/19 10:00 02/25/19 11:00 Proamatine - PO 10 mg [email or web address]@1000 CHANTELL Administration Morphine Sulfate 2 mg 02/25/19 12:31 Morphine Sulfate IVPUSH Q6H PRN PAIN LEVEL 6-10 Multivitamins/Minerals/Vitamin C 1 tab 02/22/19 10:00 02/25/19 10:58 Tab-A-Vit - PO 1 tab DAILY CHANTELL Administration Sevelamer Carbonate 1,600 mg 02/22/19 08:00 02/25/19 08:37 Renvela - PO Not Given TIDCM [facility]ANTELL Tamsulosin HCl 0.4 mg 02/21/19 22:00 02/24/19 21:59 Flomax - PO Not Given HS CHANTELL ASSESSMENT/PLAN: Speech/Swallow passed (thicken nector) , will trail PO nutrition. If Nutritional intake not adequate, will place NG tube Vascular eval pending Ethics eval pending, likely 02/26, will discuss with family gram neg septic shock from likely soft tissue infection ID: continue ceftriaxone/flagyl day #3 antibiotics overall prognosis is poor Gm negative septic shock likely from soft tissue infection Probable toxic metabolic encephalopathy septic shock 2/2 DM gangrenous B/L feet infx, Infected sacral decub and scrotal ulcer, and GN bacteremia (proteus) - requiring ICU and pressors, +L IJ. + Leukocytosis -old cx with E coli, ESBL, MRSA, and VRE. -contact isolation for MDRO -s/p Vanc and Zosyn in the ED, Gentamicin x1, Meropenem x2 in ICU -Bcx growing gram negative cher - proteus -ucx neg -wound cx e coli, morganella -ID consulted, Rangel -lactic acid downtrended to 1.6 -palliative care consulted -2mg Morphine IV PRN for comfort -change position q2h -c/w ceftriaxone 2g/flagyl, per ID recs continued -NPO pending bedside swallow eval -Aspiration precautions. -Levophed gtt 10, Titrate pressors to keep MAP>65 -vascular surgery consulted, Dr harry, for wound care. amputation indicated, but family not amenable. Will wait for #ESRD on HD (MWF) -nephro consulted (Dr. Henriquez) -HD tomorrow #Acute on chronic anemia likely 2/2 ESRD -monitor H/H #COPD -keep SpO2>90% -Duonebs q6h PRN #Dm ISS BGM ACHS #H/o hypotension : cont home midodrine monitor vitals # h/o afib c/w elequis 2.5 bid. #FEN -Not on any standing fluids -replete prn #Prophylaxis -Eliquis 2.5mg BID #Disposition -full code -GOC/ethics consult placed, as we have attempted multiple times to contact daughter who has not responded and in the past has not been amenable to allow for source control/amputation and standard of care. Without amputation, pt will likely pass from sepsis/shock since he continues to require 10 mcg Levo to maintain MAP Will make this clear to family at next meeting for full informed consent on plan of action Visit type - Emergency Visit Emergency Visit: Yes ED Registration Date: 02/21/19 Care time: The patient presented to the Emergency Department on the above date and was hospitalized for further evaluation of their emergent condition. - New Patient This patient is new to me today: Yes Date on this admission: 02/25/19 - Critical Care Critical Care patient: Yes Total Critical Care Time (in minutes): 40 Critical Care Statement: The care of this patient involved high complexity decision making to prevent further life threatening deterioration of the patient 's condition and/or to evaluate & treat vital organ system(s) failure or risk of failure. - Discharge Referral Referred to [facility] Med [facility].C.: No
[2019-02-25] MEDS: COLLAGENASE CLOSTRIDIUM HIST. 30 GRAMS TUBE TP SCH (12:56)
[2019-02-25] MEDS: NOREPINEPHRINE BITARTRATE 8,000 MCG in DEXTROSE 5%-WATER - 492 ML IV SCH (13:48)
--- NOTE | 2019-02-25 14:13 | PN ---
Progress Note, SERVICE SUPERINTENDENT - Note Progress Note: Selected Entries 02/25/19 02/25/19 02/25/19 02:00 10:00 13:00 Lunch NPO Temperature 99.8 F H 98.3 F 97.8 F Laboratory Tests 02/22/19 02/23/19 02/25/19 05:40 06:20 05:30 WBC 10.2 H 14.0 H 10.4 H Per nursing, pt had difficulty with a small pill in applesauce this am, holding it, repeatedly falling asleep. When I arrived, pt was more alert, poor head support, head repeatedly dropping. Verbal, told me his name, normal intelligibility and vocal quality. Pt refused most PO trials, but with much encouragement accepted 3 sips of nectar thick liquid with delayed but fairly brisk swallow. Trial of Dys puree, magic cup, ensure pudding as tolerated if he will accept trials. 2 ANDREEA HN on tsp. Feed only when alert. [place] thick liquid on tsp. Trial crushed meds, per clothing room supervisor's guidelines , maybe in nectar thick liquid. Monitor tolerance
[2019-02-25] MEDS: MORPHINE SULFATE 2 MG/ML VIAL IVPUSH PRN (19:23)
[2019-02-25] MEDS: ATORVASTATIN CA 20 MG TABLET (FP) PO SCH (21:28)
[2019-02-25] MEDS: TAMSULOSIN HCL 0.4 MG CAP PO SCH (21:28)
[2019-02-25] MEDS ORDERED: MORPHINE SULFATE 2 MG/ML VIAL IVPUSH ONE (21:37)
[2019-02-26] MEDS: AMINO ACIDS/PROTEIN HYDROLYS 30 ML LIQUID.PKT PO SCH ×3 (05:47→21:29)
[2019-02-26] MEDS: INSULIN SLIDING SCALE (NOVOLOG) 1 VIAL SQ SCH ×3 (06:07→17:50)
[2019-02-26 06:31] LABS: HEMATOCRIT 25.1 % (35.4-49); HEMOGLOBIN 7.9 GM/dL (11.7-16.9); MCH 28.8 pg (25.7-33.7); MCHC 31.5 g/dl (32.0-35.9); MEAN CELL VOLUME 91.3 fl (80-96); MEAN PLT VOLUME 8.2 fl (7.5-11.1); PLATELET COUNT 476 K/MM3 (134-434); RBC 2.75 M/mm3 (4.00-5.60); RDW 17.6 % (11.9-15.9); WHITE BLOOD COUNT 10.5 K/mm3 (4.0-10.0)
[2019-02-26 06:56] LABS: ALBUMIN 1.2 g/dl (3.4-5.0); ALK PHOS 127 U/L (45-117); ANION GAP 7 MMOL/L (8-16); BILIRUBIN,TOTAL 0.2 mg/dL (0.2-1); BLOOD UREA NITROGEN 36 mg/dL (7-18); CALCIUM 8.1 mg/dL (8.5-10.1); CHLORIDE 100 mmol/L (98-107); CO2 30 mmol/L (21-32); CREATININE 4.2 mg/dL (0.55-1.3); GLUCOSE,RANDOM 139 mg/dL (74-106); MAGNESIUM 2.3 mg/dL (1.8-2.4); PHOSPHOROUS 2.5 mg/dL (2.5-4.9); POTASSIUM 3.5 mmol/L (3.5-5.1); SGOT/AST 6 U/L (15-37); SGPT/ALT < 6 U/L (13-61); SODIUM 137 mmol/L (136-145); TOT PROT 5.7 g/dl (6.4-8.2)
--- NOTE | 2019-02-26 07:04 | PN ---
Physical Exam: SUBJECTIVE: Patient seen and examined at bedside. noted hypotension...septic shock requiring pressors and ICU. no acute events overnight. tolerating puree diet. currently levo 10. ethics meeting today OBJECTIVE: Vital Signs Period Temp Pulse Resp BP Sys/Zamorano Pulse Ox Last 24 Hr 97.8 F-99.6 F 71-88 15-23 88-130/49-72 97-98 GENERAL: Alert smiling, oriented 0-1 EARS, NOSE, THROAT: dry mucous membranes. LUNGS: CTAB HEART: irregularly irregular s1s2 normal ABDOMEN: Soft, NTND normoactive bowel sounds, ulcer present on sacrum unstagable with foul discharge, scrotum has ulcer no discharge MUSCULOSKELETAL: Normal range of motion at all joints. No bony deformities or tenderness. No CVA tenderness. UPPER EXTREMITIES: 2+ pulses, warm, well-perfused. LOWER EXTREMITIES: b/l wet gangrene with fouls smelling discharge SKIN: Warm, dry, Neuo: lethargic, responsive to pain. Laboratory Results - last 24 hr 02/23/19 02/25/19 02/25/19 06:20 12:18 16:45 WBC RBC Hgb Hct MCV MCH MCHC RDW Plt Count MPV Sodium Potassium Chloride Carbon Dioxide Anion Gap BUN Creatinine Est GFR (CKD-EPI)AfAm Est GFR (CKD-EPI)NonAf POC Glucometer 135 135 Random Glucose Calcium Phosphorus Magnesium Total Bilirubin AST ALT Alkaline Phosphatase Total Protein Albumin Cortisol AM Sample 16.8 02/26/19 02/26/19 02/26/19 05:45 05:45 06:06 WBC 10.5 H RBC 2.75 L Hgb 7.9 L Hct 25.1 L MCV 91.3 MCH 28.8 MCHC 31.5 L RDW 17.6 H Plt Count 476 H MPV 8.2 Sodium 137 Potassium 3.5 Chloride 100 Carbon Dioxide 30 Anion Gap 7 L BUN 36 H Creatinine 4.2 H Est GFR (CKD-EPI)AfAm 15.09 Est GFR (CKD-EPI)NonAf 13.02 POC Glucometer 120 Random Glucose 139 H Calcium 8.1 L Phosphorus 2.5 Magnesium 2.3 Total Bilirubin 0.2 AST 6 L ALT < 6 L Alkaline Phosphatase 127 H Total Protein 5.7 L Albumin 1.2 L Cortisol AM Sample Active Medications Generic Name Dose Route Start Last Admin Trade Name Freq PRN Reason Stop Dose Admin Albuterol/Ipratropium 1 amp 02/21/19 19:04 Duoneb - NEB Q6H PRN SHORTNESS OF BREATH Allopurinol 100 mg 02/22/19 10:00 02/25/19 10:58 Zyloprim - PO 100 mg DAILY CHANTELL Administration Amino Acids 30 ml 02/21/19 22:00 02/26/19 05:47 Prosource No Carb Liquid Pkt PO 30 ml TID CHANTELL Administration Apixaban 2.5 mg 02/21/19 22:00 02/25/19 21:29 Eliquis - PO 2.5 mg BID CHANTELL Administration Atorvastatin Calcium 20 mg 02/21/19 22:00 02/25/19 21:28 Lipitor - PO 20 mg HS CHANTELL Administration Collagenase 1 applic 02/22/19 10:00 02/25/19 12:56 Santyl - TP 1 applic DAILY CHANTELL Administration Protocol Escitalopram Oxalate 10 mg 02/22/19 10:00 02/25/19 10:57 Lexapro - PO 10 mg DAILY CHANTELL Administration Norepinephrine Bitartrate 8, 500 mls @ 18.75 mls/hr 02/23/19 12:45 02/25/19 14:00 000 mcg/ Dextrose IV 8 mcg/min TITR CHANTELL 30 mls/hr Titration Protocol 5 MCG/MIN Ceftriaxone Sodium 2 gm/ 100 mls @ 200 mls/hr 02/25/19 10:00 02/25/19 09:57 Dextrose IVPB 200 mls/hr DAILY CHANTELL Administration Protocol Metronidazole 500 mg in 100 mls @ 100 mls/hr 02/24/19 18:00 02/26/19 02:23 Flagyl 500mg Premixed Ivpb - IVPB 100 mls/hr Q8H-IV CHANTELL Administration Sodium Chloride 250 mls @ 3,000 mls/hr 02/25/19 12:31 Normal Saline - IV 02/26/19 12:31 PRN PRN Hypotension during Dialysis Insulin Aspart 1 vial 02/22/19 07:00 02/26/19 06:07 Novolog Vial Sliding Scale - SQ Not Given TIDAC [facility]TE[facility] Protocol Lactobacillus Acidophilus 1 tab 02/22/19 10:00 02/25/19 10:58 Bacid - PO 1 tab DAILY CHANTELL Administration Midodrine 5 mg 02/23/19 10:00 02/24/19 09:13 Proamatine - PO Not Given SuTuThSa@1000 CHANTELL Midodrine 10 mg 02/22/19 10:00 02/25/19 11:00 Proamatine - PO 10 mg [email or web address]@1000 CHANTELL Administration Morphine Sulfate 2 mg 02/25/19 12:31 02/25/19 19:23 Morphine Sulfate IVPUSH 2 mg Q6H PRN Administration PAIN LEVEL 6-10 Multivitamins/Minerals/Vitamin C 1 tab 02/22/19 10:00 02/25/19 10:58 Tab-A-Vit - PO 1 tab DAILY CHANTELL Administration Sevelamer Carbonate 1,600 mg 02/22/19 08:00 02/25/19 17:28 Renvela - PO 1,600 mg TIDCM [facility]ANTELL Administration Tamsulosin HCl 0.4 mg 02/21/19 22:00 02/25/19 21:28 Flomax - PO 0.4 mg HS CHANTELL Administration ASSESSMENT/PLAN: 73 yo M PMH dementia, CVA, DM, COPD, ESRD, gout, HTN, HLP, recent admission 01/31- 02/19 during which he was treated for sepsis due to infected b/l feet ulcers/ gangrene. He was sent form NH due to poor po intake, and worsening of ulcers. Now in septic shock 2/2 DM gangrenous B/L feet infx, Infected sacral decub and scrotal ulcer, and GN bacteremia , requiring ICU and pressors #septic shock 2/2 DM gangrenous B/L feet infx, Infected sacral decub and scrotal ulcer, and GN bacteremia (proteus, prevotella) - requiring ICU and pressors, +L IJ. +Leukocytosis -old cx with E coli, ESBL, MRSA, and VRE. -contact isolation for MDRO -s/p Vanc and Zosyn in the ED, Gentamicin x1, Meropenem x2 in ICU -Bcx 02/21/19 growing GN cher - proteus and prevotella -ucx neg -wound cx E coli, morganella -Bcx 02/23/19 neg -ID consulted, Rangel -lactic acid downtrended to 1.6 -palliative care consulted -c/w ceftriaxone 2g/flagyl d2, per ID recs -Aspiration precautions. -Levophed gtt 10, Titrate pressors to keep MAP>65 -vascular surgery consulted, Dr harry, for wound care. amputation indicated, but family not amenable. cont GOC -per ID no vanc, cx show no MRSA for >48hr #ESRD on HD (MWF) -nephro consulted (Dr. Henriquez) -HD today as per nephro #Acute on chronic anemia likely 2/2 ESRD -monitor H/H #COPD -keep SpO2>90% -Duonebs q6h PRN #Dm ISS BGM ACHS #H/o hypotension : cont home midodrine monitor vitals # h/o afib c/w elequis 2.5 bid #FEN -Not on any standing fluids -replete prn -tolerating puree diet, per speech eval #Prophylaxis -Eliquis 2.5mg BID #Disposition -full code -GOC/ethics consult placed, as we have attempted multiple times to contact daughter who has not responded and in the past has not been amenable to to allow for source control/amputation and standard of care. given patients inability to make decisions for himself and daughter unwillingness pt will likely cont to suffer w/o improvement and has spoor prognosis -ICU monitoring Visit type - Emergency Visit Emergency Visit: Yes ED Registration Date: 02/21/19 Care time: The patient presented to the Emergency Department on the above date and was hospitalized for further evaluation of their emergent condition. - New Patient This patient is new to me today: Yes Date on this admission: 02/26/19 - Critical Care Critical Care patient: Yes Total Critical Care Time (in minutes): 39 Critical Care Statement: The care of this patient involved high complexity decision making to prevent further life threatening deterioration of the patient 's condition and/or to evaluate & treat vital organ system(s) failure or risk of failure.
[2019-02-26] MEDS: SEVELAMER CARBONATE 800 MG TAB (FP) PO SCH ×3 (08:03→18:04)
[2019-02-26] MEDS ORDERED: DEXTROSE 5%-WATER 100 ML IVPB ONE (09:10)
[2019-02-26] MEDS: CEFTRIAXONE 2 GM in DEXTROSE 5%-WATER 100 ML IVPB SCH (09:12)
[2019-02-26] MEDS: ESCITALOPRAM OXALATE 10 MG TABLET (FP) PO SCH (09:13)
[2019-02-26] MEDS: ALLOPURINOL 100 MG TABLET (FP) PO SCH (09:13)
[2019-02-26] MEDS: COLLAGENASE CLOSTRIDIUM HIST. 30 GRAMS TUBE TP SCH (09:13)
[2019-02-26] MEDS: MIDODRINE HCL 5 MG TABLET PO SCH (09:13)
[2019-02-26] MEDS: MULTIVITAMINS (DAILY MVI) TABLET (FP) PO SCH (09:14)
[2019-02-26] MEDS: MORPHINE SULFATE 2 MG/ML VIAL IVPUSH PRN ×2 (09:14→14:53)
[2019-02-26] MEDS: APIXABAN 2.5 MG TABLET PO SCH ×2 (09:14→21:29)
[2019-02-26] MEDS: LACTOBACILLUS ACIDOPHILUS 1 TABLET PO SCH (09:14)
[2019-02-26] MEDS ORDERED: EPOETIN ALFA 10,000 UNIT/1 ML VIAL IVPUSH ONE (09:30)
[2019-02-26] MEDS ORDERED: SODIUM CHLORIDE 250 ML IV PRN (10:00)
--- NOTE | 2019-02-26 12:26 | PN ---
Teaching Attending Note Name of Resident: Gualberto Eagle ATTENDING PHYSICIAN STATEMENT I saw and evaluated the patient. I reviewed the resident's note and discussed the case with the resident. I agree with the resident's findings and plan as documented. SUBJECTIVE: Patient seen and examined in the ICU. Lethargic but easily arousbale. Apparently took PO meds and at least 50% of food. Remains on NE @ 14 mcq for hemodynamic support while on HD. Intake & Output 02/23/19 02/24/19 02/25/19 02/26/19 23:59 23:59 23:59 23:59 Intake Total 720 897.5 1170 488 Output Total 1 Balance 720 897.5 1170 487 Weight 138 lb 136 lb 8 oz 136 lb 1.6 oz 137 lb 11.2 oz Last Vital Signs Temp Pulse Resp BP Pulse Ox 97.7 F 98 H 18 115/59 L 98 02/26/19 10:00 02/26/19 11:00 02/26/19 11:00 02/26/19 11:00 02/26/19 09:00 Active Medications Albuterol/Ipratropium (Duoneb -) 1 amp NEB Q6H PRN PRN Reason: SHORTNESS OF BREATH Allopurinol (Zyloprim -) 100 mg PO DAILY [facility] Last Admin: 02/26/19 09:13 Dose: 100 mg Amino Acids (Prosource No Carb Liquid Pkt) 30 ml PO TID [facility] Last Admin: 02/26/19 05:47 Dose: 30 ml Apixaban (Eliquis -) 2.5 mg PO BID [facility] Last Admin: 02/26/19 09:14 Dose: 2.5 mg Atorvastatin Calcium (Lipitor -) 20 mg PO HS [facility] Last Admin: 02/25/19 21:28 Dose: 20 mg Collagenase (Santyl -) 1 applic TP DAILY [facility]; Protocol Last Admin: 02/26/19 09:13 Dose: 1 applic Escitalopram Oxalate (Lexapro -) 10 mg PO DAILY [facility] Last Admin: 02/26/19 09:13 Dose: 10 mg Norepinephrine Bitartrate 8, (000 mcg/ Dextrose) 500 mls @ 18.75 mls/hr IV TITR [facility]; Protocol Last Titration: 02/25/19 14:00 Dose: 8 mcg/min, 30 mls/hr Ceftriaxone Sodium 2 gm/ (Dextrose) 100 mls @ 200 mls/hr IVPB DAILY [facility]; Protocol Last Admin: 02/26/19 09:12 Dose: 200 mls/hr Metronidazole (Flagyl 500mg Premixed Ivpb -) 500 mg in 100 mls @ 100 mls/hr IVPB Q8H-IV [facility] Last Admin: 02/26/19 09:14 Dose: 100 mls/hr Insulin Aspart (Novolog Vial Sliding Scale -) 1 vial SQ BIDAC [facility]; Protocol Last Admin: 02/26/19 11:37 Dose: Not Given Lactobacillus Acidophilus (Bacid -) 1 tab PO DAILY [facility] Last Admin: 02/26/19 09:14 Dose: 1 tab Midodrine (Proamatine -) 5 mg PO SuTuThSa@1000 [facility] Last Admin: 02/26/19 09:13 Dose: 5 mg Midodrine (Proamatine -) 10 mg PO MoWeFr@1000 [facility] Last Admin: 02/25/19 11:00 Dose: 10 mg Morphine Sulfate (Morphine Sulfate) 2 mg IVPUSH Q6H PRN PRN Reason: PAIN LEVEL 6-10 Last Admin: 02/26/19 09:14 Dose: 2 mg Multivitamins/Minerals/Vitamin C (Tab-A-Vit -) 1 tab PO DAILY [facility] Last Admin: 02/26/19 09:14 Dose: 1 tab Sevelamer Carbonate (Renvela -) 1,600 mg PO TIDCM [facility] Last Admin: 02/26/19 08:03 Dose: 1,600 mg Tamsulosin HCl (Flomax -) 0.4 mg PO HS [facility] Last Admin: 02/25/19 21:28 Dose: 0.4 mg Constitutional: Yes: Lethargic but arousable and follows simple commands Eyes: Yes: Conjunctiva Clear HENT: Yes: Atraumatic, Normocephalic Neck: Yes: Supple Cardiovascular: Yes: Regular Rate and Rhythm, Other (permacath site no erythema , no drainage) Respiratory: Yes: bilateral rhonchi Gastrointestinal: Yes: Normal Bowel Sounds, Soft Extremities: Yes: Other (contracted, foul smelling gangrenous wounds both feet) Edema: Yes Edema: No Labs: Laboratory Results - last 24 hr 02/23/19 02/25/19 02/26/19 06:20 16:45 05:45 WBC 10.5 H RBC 2.75 L Hgb 7.9 L Hct 25.1 L MCV 91.3 MCH 28.8 MCHC 31.5 L RDW 17.6 H Plt Count 476 H MPV 8.2 Sodium Potassium Chloride Carbon Dioxide Anion Gap BUN Creatinine Est GFR (CKD-EPI)AfAm Est GFR (CKD-EPI)NonAf POC Glucometer 135 Random Glucose Calcium Phosphorus Magnesium Total Bilirubin AST ALT Alkaline Phosphatase Total Protein Albumin Cortisol AM Sample 16.8 02/26/19 02/26/19 02/26/19 05:45 06:06 11:31 WBC RBC Hgb Hct MCV MCH MCHC RDW Plt Count MPV Sodium 137 Potassium 3.5 Chloride 100 Carbon Dioxide 30 Anion Gap 7 L BUN 36 H Creatinine 4.2 H Est GFR (CKD-EPI)AfAm 15.09 Est GFR (CKD-EPI)NonAf 13.02 POC Glucometer 120 134 Random Glucose 139 H Calcium 8.1 L Phosphorus 2.5 Magnesium 2.3 Total Bilirubin 0.2 AST 6 L ALT < 6 L Alkaline Phosphatase 127 H Total Protein 5.7 L Albumin 1.2 L Cortisol AM Sample Problem List - Problems (1) Gram negative sepsis Code(s): A41.50 - GRAM-NEGATIVE SEPSIS, UNSPECIFIED (2) Gangrene of both feet Code(s): I96 - GANGRENE, NOT ELSEWHERE CLASSIFIED (3) ESRD (end stage renal disease) on dialysis Code(s): N18.6 - END STAGE RENAL DISEASE; Z99.2 - DEPENDENCE ON RENAL DIALYSIS (4) MRSA (methicillin resistant 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 coli carrier Code(s): Z22.39 - CARRIER OF OTHER SPECIFIED BACTERIAL DISEASES (6) VRE (vancomycin-resistant Enterococci) Code(s): A49.1 - STREPTOCOCCAL INFECTION, UNSPECIFIED SITE; Z16.21 - RESISTANCE TO VANCOMYCIN Assessment/Plan Gm negative septic shock likely from soft tissue infection Probable toxic metabolic encephalopathy Pressors to maintain MAP > 65 ABX per ID O2 as needed HD per Renal Aspiration precautions Local wound care per surgery Ethics meeting called to address family's lack of insight and seemingly inappropriateness of medical decision making Dr Palmer Critical care time spent in reviewing chart, evaluating patient and formulating plan - 36 minutes.
--- NOTE | 2019-02-26 12:32 | PN ---
Progress Note, INSURANCE RISK SURVEYOR - Note Progress Note: Selected Entries 02/25/19 02/25/19 02/25/19 02:00 10:00 13:00 Diet Tolerated Supper Temperature 99.8 F H 98.3 F 97.8 F 02/25/19 02/25/19 02/26/19 17:00 18:00 02:00 Diet Tolerated Well Supper 75% Temperature 98.1 F 99.6 F 02/26/19 02/26/19 02/26/19 06:00 07:15 10:00 Diet Tolerated Supper Temperature 99.2 F 99 F 97.7 F Laboratory Tests 02/24/19 02/25/19 02/26/19 05:10 05:30 05:45 WBC 11.1 H 10.4 H 10.5 H Nursing fed pt breakfast. Good tolerance of 50% of tray, intermittent oral holding reported. Continue diet. Add Magic cup,Ensure pudding for increased density of nutritional intake.
--- NOTE | 2019-02-26 13:24 | PN ---
Progress Note (short form) - Note Progress Note: Ethics: I have reviewed the chart and saw the patient in the ICU. The staff caring for Mr. Silva requested an ethics meeting to help the daughter understand his current condition and to discover her thoughts about his medical status and treatments so we can come to a decision about care going forward. I have recommended that at least 2 of his treating MD's be present for the contact so there is no misunderstanding about the plan and her decisions to be part of the meeting in person or via teleconferencing. Without the daughter's input at an ethics meeting the value will be very limited.
[2019-02-26] MEDS: NOREPINEPHRINE BITARTRATE 8,000 MCG in DEXTROSE 5%-WATER - 492 ML IV SCH (13:55)
--- NOTE | 2019-02-26 14:30 | PN ---
Teaching Attending Note Name of Resident: Gen Hurd ATTENDING PHYSICIAN STATEMENT I saw and evaluated the patient. I reviewed the resident's note and discussed the case with the resident. I agree with the resident's findings and plan as documented. SUBJECTIVE: No events over night OBJECTIVE: NAD, awake today, says few words, comfortable. contracted CV: RRR, no MRG Lungs: clear anteriorly, decreased breath sounds, poor effort. Abd: soft, Nt, ND , NL BS SKin : sacral and scrotal decub were not examined today EXt: ASSESSMENT AND PLAN: 73 y/o man with h/o dementia, CVA, DM, COPD, ESRD, gout, HTN, HLP, recent admission 01/31-02/19 during which he was treated for sepsis due to infected b/l feet ulcers/gangrene. He was sent [facility] [place] due to poor po intake, and non healing wounds 1- Gangrene of b/l feet. infection in diabetic feet. 2- Septic shock 3- Infected sacral decub and scrotal ulcer 4- Proteus bacteremia ,polymicrobial wound 5- ESRD 6- DM 7- hypophosphatemia 8- hypokalemia plan : - Abx: cont ceftiraxone and flagyl - follow repeat blood cx. - cont Levophed and try to taper - HD per schedule - monitor electrolytes . - awaiting surgical consult - SSI Case d/w dr. Khan , appreciate help. Will call daughter today and will try to arrange for an ethics meeting.
--- NOTE | 2019-02-26 15:02 | PN ---
Progress Note, Physician History of Present Illness: Pt seen and examined at bedside. He tolerated HD today. - Current Medication List Current Medications: Active Medications Albuterol/Ipratropium (Duoneb -) 1 amp NEB Q6H PRN PRN Reason: SHORTNESS OF BREATH Allopurinol (Zyloprim -) 100 mg PO DAILY [facility] Last Admin: 02/26/19 09:13 Dose: 100 mg Amino Acids (Prosource No Carb Liquid Pkt) 30 ml PO TID [facility] Last Admin: 02/26/19 13:28 Dose: 30 ml Apixaban (Eliquis -) 2.5 mg PO BID [facility] Last Admin: 02/26/19 09:14 Dose: 2.5 mg Atorvastatin Calcium (Lipitor -) 20 mg PO HS [facility] Last Admin: 02/25/19 21:28 Dose: 20 mg Collagenase (Santyl -) 1 applic TP DAILY [facility]; Protocol Last Admin: 02/26/19 09:13 Dose: 1 applic Escitalopram Oxalate (Lexapro -) 10 mg PO DAILY [facility] Last Admin: 02/26/19 09:13 Dose: 10 mg Norepinephrine Bitartrate 8, (000 mcg/ Dextrose) 500 mls @ 18.75 mls/hr IV TITR [facility]; Protocol Last Titration: 02/26/19 11:20 Dose: 10 mcg/min, 37.5 mls/hr Ceftriaxone Sodium 2 gm/ (Dextrose) 100 mls @ 200 mls/hr IVPB DAILY [facility]; Protocol Last Admin: 02/26/19 09:12 Dose: 200 mls/hr Metronidazole (Flagyl 500mg Premixed Ivpb -) 500 mg in 100 mls @ 100 mls/hr IVPB Q8H-IV [facility] Last Admin: 02/26/19 09:14 Dose: 100 mls/hr Insulin Aspart (Novolog Vial Sliding Scale -) 1 vial SQ BIDAC [facility]; Protocol Last Admin: 02/26/19 11:37 Dose: Not Given Lactobacillus Acidophilus (Bacid -) 1 tab PO DAILY [facility] Last Admin: 02/26/19 09:14 Dose: 1 tab Midodrine (Proamatine -) 5 mg PO SuTuThSa@1000 [facility] Last Admin: 02/26/19 09:13 Dose: 5 mg Midodrine (Proamatine -) 10 mg PO MoWeFr@1000 [facility] Last Admin: 02/25/19 11:00 Dose: 10 mg Morphine Sulfate (Morphine Sulfate) 2 mg IVPUSH Q6H PRN PRN Reason: PAIN LEVEL 6-10 Last Admin: 02/26/19 14:53 Dose: 2 mg Multivitamins/Minerals/Vitamin C (Tab-A-Vit -) 1 tab PO DAILY [facility] Last Admin: 02/26/19 09:14 Dose: 1 tab Sevelamer Carbonate (Renvela -) 1,600 mg PO TIDCM [facility] Last Admin: 02/26/19 13:28 Dose: 1,600 mg Tamsulosin HCl (Flomax -) 0.4 mg PO HS [facility] Last Admin: 02/25/19 21:28 Dose: 0.4 mg - Objective Vital Signs: Vital Signs Temperature 97.7 F 02/26/19 10:00 Pulse Rate 88 02/26/19 13:00 Respiratory Rate 18 02/26/19 13:00 Blood Pressure 113/61 02/26/19 13:00 O2 Sat by Pulse Oximetry (%) 98 02/26/19 09:00 Constitutional: Yes: Calm Eyes: Yes: Conjunctiva Clear HENT: Yes: Atraumatic Cardiovascular: Yes: S1, S2 Respiratory: Yes: CTA Bilaterally Gastrointestinal: Yes: Soft Genitourinary: Yes: Incontinence Musculoskeletal: Yes: Muscle Weakness Edema: No Wound/Incision: Yes: Dressing Dry and Intact Neurological: Yes: Confusion Labs: CBC, BMP 02/26/19 05:45 02/26/19 05:45 INR, PTT INR 1.44 (0.83-1.09) H 02/22/19 05:40 Assessment/Plan Current Medications Generic Name Dose Route Start Last Admin Trade Name Freq PRN Reason Stop Dose Admin Albuterol/Ipratropium 1 amp 02/21/19 19:04 Duoneb - NEB Q6H PRN SHORTNESS OF BREATH Allopurinol 100 mg 02/22/19 10:00 02/26/19 09:13 Zyloprim - PO 100 mg DAILY [facility] Administration Amino Acids 30 ml 02/21/19 22:00 02/26/19 13:28 Prosource No Carb Liquid Pkt PO 30 ml TID [facility] Administration Apixaban 2.5 mg 02/21/19 22:00 02/26/19 09:14 Eliquis - PO 2.5 mg BID [facility] Administration Atorvastatin Calcium 20 mg 02/21/19 22:00 02/25/19 21:28 Lipitor - PO 20 mg HS [facility] Administration Collagenase 1 applic 02/22/19 10:00 02/26/19 09:13 Santyl - TP 1 applic DAILY [facility] Administration Protocol Escitalopram Oxalate 10 mg 02/22/19 10:00 02/26/19 09:13 Lexapro - PO 10 mg DAILY [facility] Administration Norepinephrine Bitartrate 8, 500 mls @ 18.75 mls/hr 02/23/19 12:45 02/26/19 11:20 000 mcg/ Dextrose IV 10 mcg/min TITR [facility] 37.5 mls/hr Titration Protocol 5 MCG/MIN Ceftriaxone Sodium 2 gm/ 100 mls @ 200 mls/hr 02/25/19 10:00 02/26/19 09:12 Dextrose IVPB 200 mls/hr DAILY [facility] Administration Protocol Metronidazole 500 mg in 100 mls @ 100 mls/hr 02/24/19 18:00 02/26/19 09:14 Flagyl 500mg Premixed Ivpb - IVPB 100 mls/hr Q8H-IV [facility] Administration Insulin Aspart 1 vial 02/26/19 10:00 02/26/19 11:37 Novolog Vial Sliding Scale - SQ Not Given BIDAC [facility] Protocol Lactobacillus Acidophilus 1 tab 02/22/19 10:00 02/26/19 09:14 Bacid - PO 1 tab DAILY [facility] Administration Midodrine 5 mg 02/23/19 10:00 02/26/19 09:13 Proamatine - PO 5 mg SuTuThSa@1000 [facility] Administration Midodrine 10 mg 02/22/19 10:00 02/25/19 11:00 Proamatine - PO 10 mg MoWeFr@1000 [facility] Administration Morphine Sulfate 2 mg 02/25/19 12:31 02/26/19 14:53 Morphine Sulfate IVPUSH 2 mg Q6H PRN Administration PAIN LEVEL 6-10 Multivitamins/Minerals/Vitamin C 1 tab 02/22/19 10:00 02/26/19 09:14 Tab-A-Vit - PO 1 tab DAILY [facility] Administration Sevelamer Carbonate 1,600 mg 02/22/19 08:00 02/26/19 13:28 Renvela - PO 1,600 mg TIDCM [facility] Administration Tamsulosin HCl 0.4 mg 02/21/19 22:00 02/25/19 21:28 Flomax - PO 0.4 mg HS [facility] Administration Laboratory Tests 02/23/19 06:20 Cortisol AM Sample 16.8 Impression 1. ESRD 2. gangrene 3. DM 4. hyperlipidemia 5. HTN 6. gout 7. proteinuria 8. hypotension 9. sepsis Plan - HD today - monitor BP - renal diet - abx per ID - family refusing surgery
--- NOTE | 2019-02-26 17:22 | PN ---
Progress Note (short form) - Note Progress Note: VAscular surgery Pt well known to vascular service. Pt in ICU due to sepsis on pressors for three days. Spoke to daughter extensively 3 weeks ago and she did not want surgery for her father. At that time I expressed to her the need for advance directives for her father. Residents have been trying to contact the daughter , but have not been able to reach her. Medical managment. Amso Mcneil DO
--- NOTE | 2019-02-26 19:13 | PN ---
Physical Exam: SUBJECTIVE: Patient seen and examined. On Levo 10 mcq, Left IJ day 4. During HD today, pts MAP declined, increased Levo to 14 mcq for the remainder of HD and reduced back to 10 mcq afterwards.No overnight events. Pt more alert, AOX1. Pt able to take PO meds and per nursing, able to eat 50% of his food. OBJECTIVE: Vital Signs Period Temp Pulse Resp BP Sys/Zamorano Pulse Ox Last 24 Hr 97.7 F-99.6 F 82-100 15-23 79-121/40-72 97-100 GENERAL: The patient is awake, alert, baseline dementia, in no acute distress. HEAD: Normal with no signs of trauma. EYES: PERRL, extraocular movements intact, sclera anicteric, conjunctiva clear. No ptosis. ENT: Ears normal, nares patent, oropharynx clear without exudates, moist mucous membranes. NECK: Trachea midline, full range of motion, supple. LUNGS: Breath sounds equal, clear to auscultation bilaterally, no wheezes, no crackles, no accessory muscle use. HEART: Regular rate and rhythm, S1, S2 without murmur, rub or gallop. ABDOMEN: Soft, nontender, nondistended, normoactive bowel sounds, no guarding, no rebound, no hepatosplenomegaly, no masses. EXTREMITIES: bilateral gangrene lower ext down to the tendon on the left with unstageble sacral ulcer NEUROLOGICAL: Cranial nerves II through XII grossly intact. Follows basic commands PSYCH: Normal mood, normal affect. SKIN: bilateral gangrene lower ext down to the tendon on the left with purulent foul smelling discharge. Unstageble sacral ulcer with Laboratory Results - last 24 hr 02/23/19 02/26/19 02/26/19 06:20 05:45 05:45 WBC 10.5 H RBC 2.75 L Hgb 7.9 L Hct 25.1 L MCV 91.3 MCH 28.8 MCHC 31.5 L RDW 17.6 H Plt Count 476 H MPV 8.2 Sodium 137 Potassium 3.5 Chloride 100 Carbon Dioxide 30 Anion Gap 7 L BUN 36 H Creatinine 4.2 H Est GFR (CKD-EPI)AfAm 15.09 Est GFR (CKD-EPI)NonAf 13.02 POC Glucometer Random Glucose 139 H Calcium 8.1 L Phosphorus 2.5 Magnesium 2.3 Total Bilirubin 0.2 AST 6 L ALT < 6 L Alkaline Phosphatase 127 H Total Protein 5.7 L Albumin 1.2 L Cortisol AM Sample 16.8 02/26/19 02/26/19 02/26/19 06:06 11:31 17:49 WBC RBC Hgb Hct MCV MCH MCHC RDW Plt Count MPV Sodium Potassium Chloride Carbon Dioxide Anion Gap BUN Creatinine Est GFR (CKD-EPI)AfAm Est GFR (CKD-EPI)NonAf POC Glucometer 120 134 154 Random Glucose Calcium Phosphorus Magnesium Total Bilirubin AST ALT Alkaline Phosphatase Total Protein Albumin Cortisol AM Sample Active Medications Generic Name Dose Route Start Last Admin Trade Name Freq PRN Reason Stop Dose Admin Albuterol/Ipratropium 1 amp 02/21/19 19:04 Duoneb - NEB Q6H PRN SHORTNESS OF BREATH Allopurinol 100 mg 02/22/19 10:00 02/26/19 09:13 Zyloprim - PO 100 mg DAILY [facility] Administration Amino Acids 30 ml 02/21/19 22:00 02/26/19 13:28 Prosource No Carb Liquid Pkt PO 30 ml TID [facility] Administration Apixaban 2.5 mg 02/21/19 22:00 02/26/19 09:14 Eliquis - PO 2.5 mg BID [facility] Administration Atorvastatin Calcium 20 mg 02/21/19 22:00 02/25/19 21:28 Lipitor - PO 20 mg HS [facility] Administration Collagenase 1 applic 02/22/19 10:00 02/26/19 09:13 Santyl - TP 1 applic DAILY [facility] Administration Protocol Escitalopram Oxalate 10 mg 02/22/19 10:00 02/26/19 09:13 Lexapro - PO 10 mg DAILY [facility] Administration Norepinephrine Bitartrate 8, 500 mls @ 18.75 mls/hr 02/23/19 12:45 02/26/19 13:55 000 mcg/ Dextrose IV 9 mcg/min TITR [facility] 33.75 mls/hr Administration Protocol 5 MCG/MIN Ceftriaxone Sodium 2 gm/ 100 mls @ 200 mls/hr 02/25/19 10:00 02/26/19 09:12 Dextrose IVPB 200 mls/hr DAILY [facility] Administration Protocol Metronidazole 500 mg in 100 mls @ 100 mls/hr 02/24/19 18:00 02/26/19 18:04 Flagyl 500mg Premixed Ivpb - IVPB 100 mls/hr Q8H-IV [facility] Administration Insulin Aspart 1 vial 02/26/19 10:00 02/26/19 17:50 Novolog Vial Sliding Scale - SQ 2 units BIDAC [facility] Administration Protocol Lactobacillus Acidophilus 1 tab 02/22/19 10:00 02/26/19 09:14 Bacid - PO 1 tab DAILY [facility] Administration Midodrine 5 mg 02/23/19 10:00 02/26/19 09:13 Proamatine - PO 5 mg SuTuThSa@1000 [facility] Administration Midodrine 10 mg 02/22/19 10:00 02/25/19 11:00 Proamatine - PO 10 mg MoWeFr@1000 [facility] Administration Morphine Sulfate 2 mg 02/25/19 12:31 02/26/19 14:53 Morphine Sulfate IVPUSH 2 mg Q6H PRN Administration PAIN LEVEL 6-10 Multivitamins/Minerals/Vitamin C 1 tab 02/22/19 10:00 02/26/19 09:14 Tab-A-Vit - PO 1 tab DAILY [facility] Administration Sevelamer Carbonate 1,600 mg 02/22/19 08:00 02/26/19 18:04 Renvela - PO 1,600 mg TIDCM [facility] Administration Tamsulosin HCl 0.4 mg 02/21/19 22:00 02/25/19 21:28 Flomax - PO 0.4 mg HS [facility] Administration ASSESSMENT/PLAN: 73 y/o man with h/o dementia, CVA, DM, COPD, ESRD, gout, HTN, HLP, recent admission 01/31-02/19 during which he was treated for sepsis due to infected b/l feet ulcers/gangrene. He was sent form [place] due to poor po intake, and non healing wounds Discussed case with Dr. Mcneil who knows pt and family well. Based on previous conversations with daughter Molly who is next of kin, she does not want surgery for her father. MOLST form was discussed for advanced directives, as per Nurse Su, pt did not want to make a decision at that time. We will continue to medically manage pt until family gives input. Multiple calls placed to both Molly and pts brother, Butch with voice mail messages, no return calls made. Multiple residents have attempted to contact pt family without success, code status currently full code. Pt prognosis poor, continues to require Levo 10 mcg for MAP support, infection shows no sign of improvement. Will continue with antibiotics as per ID Will continue Levo 10 mcq for MAP > 65 #ESRD on HD (MWF) -nephro consulted (Dr. Henriquez) -HD today as per nephro #Acute on chronic anemia likely 2/2 ESRD -monitor H/H #COPD -keep SpO2>90% -Duonebs q6h PRN #Dm ISS BGM ACHS #H/o hypotension : cont home midodrine monitor vitals # h/o afib c/w elequis 2.5 bid #FEN -Not on any standing fluids -replete prn -tolerating puree diet, per speech eval #Prophylaxis -Eliquis 2.5mg BID Ethics contacted who recommend t least 2 of his treating MD's be present for the contact so there is no misunderstanding about the plan and her decisions to be part of the meeting in person or via teleconferencing. Without the daughter' s input at an ethics meeting the value will be very limited. Visit type - Emergency Visit Emergency Visit: No - New Patient This patient is new to me today: No - Critical Care Critical Care patient: Yes Total Critical Care Time (in minutes): 36 Critical Care Statement: The care of this patient involved high complexity decision making to prevent further life threatening deterioration of the patient 's condition and/or to evaluate & treat vital organ system(s) failure or risk of failure. - Discharge Referral Referred to [facility] No
[2019-02-26] MEDS: TAMSULOSIN HCL 0.4 MG CAP PO SCH (21:29)
[2019-02-26] MEDS: ATORVASTATIN CA 20 MG TABLET (FP) PO SCH (21:29)
[2019-02-27] MEDS: MORPHINE SULFATE 2 MG/ML VIAL IVPUSH PRN (04:51)
[2019-02-27] MEDS: INSULIN SLIDING SCALE (NOVOLOG) 1 VIAL SQ SCH ×2 (06:29→17:39)
[2019-02-27 06:30] LABS: BASO % 0.5 % (0-2.0); EOS % 0.5 % (0-4.5); HEMOGLOBIN 7.5 GM/dL (11.7-16.9); LYMPH % 19.1 % (8-40); MCH 28.5 pg (25.7-33.7); MEAN CELL VOLUME 91.9 fl (80-96); MEAN PLT VOLUME 8.1 fl (7.5-11.1); MONO % 7.5 % (3.8-10.2); NEUT % 72.4 % (42.8-82.8); PLATELET COUNT 446 K/MM3 (134-434); RBC 2.62 M/mm3 (4.00-5.60)
[2019-02-27] MEDS: AMINO ACIDS/PROTEIN HYDROLYS 30 ML LIQUID.PKT PO SCH ×3 (06:30→21:42)
[2019-02-27 06:52] LABS: ALBUMIN 1.1 g/dl (3.4-5.0); ALK PHOS 118 U/L (45-117); ANION GAP 6 MMOL/L (8-16); BILIRUBIN,TOTAL 0.3 mg/dL (0.2-1); BLOOD UREA NITROGEN 19 mg/dL (7-18); CALCIUM 8.3 mg/dL (8.5-10.1); CHLORIDE 103 mmol/L (98-107); CO2 31 mmol/L (21-32); CREATININE 2.5 mg/dL (0.55-1.3); GLUCOSE,RANDOM 114 mg/dL (74-106); MAGNESIUM 1.9 mg/dL (1.8-2.4); PHOSPHOROUS 1.8 mg/dL (2.5-4.9); POTASSIUM 3.3 mmol/L (3.5-5.1); SGOT/AST 8 U/L (15-37); SGPT/ALT < 6 U/L (13-61); SODIUM 141 mmol/L (136-145); TOT PROT 5.5 g/dl (6.4-8.2)
--- NOTE | 2019-02-27 08:01 | PN ---
Physical Exam: SUBJECTIVE: Patient seen and examined at bedside. noted hypotension...septic shock requiring pressors and ICU. no acute events overnight. tolerating puree diet. currently levo 10. yesterday multiple times various members of primary team and ICU team tried contacting daughter and brother for GOC/ethics meeting but no response OBJECTIVE: Vital Signs Period Temp Pulse Resp BP Sys/Zamorano Pulse Ox Last 24 Hr 97.7 F-99.2 F 82-100 14-25 79-128/33-105 97-100 GENERAL: lethargic, drowsy, oriented 0-1. thin appearing, decreased muscle mass and fat EARS, NOSE, THROAT: dry mucous membranes. LUNGS: CTAB HEART: irregularly irregular s1s2 normal ABDOMEN: Soft, NTND normoactive bowel sounds, ulcer present on sacrum unstagable with foul discharge, scrotum has ulcer no discharge MUSCULOSKELETAL: Normal range of motion at all joints. No bony deformities or tenderness. No CVA tenderness. UPPER EXTREMITIES: 2+ pulses, warm, well-perfused. LOWER EXTREMITIES: b/l wet gangrene with fouls smelling discharge SKIN: Warm, dry, Neuo: lethargic, responsive to pain. Laboratory Results - last 24 hr 02/26/19 02/26/19 02/26/19 11:31 17:49 21:55 WBC RBC Hgb Hct MCV MCH MCHC RDW Plt Count MPV Absolute Neuts (auto) Neutrophils % Lymphocytes % Monocytes % Eosinophils % Basophils % Nucleated RBC % Sodium Potassium Chloride Carbon Dioxide Anion Gap BUN Creatinine Est GFR (CKD-EPI)AfAm Est GFR (CKD-EPI)NonAf POC Glucometer 134 154 123 Random Glucose Calcium Phosphorus Magnesium Total Bilirubin AST ALT Alkaline Phosphatase Total Protein Albumin 02/27/19 02/27/19 02/27/19 05:30 05:30 06:08 WBC 11.0 H RBC 2.62 L Hgb 7.5 L Hct 24.0 L MCV 91.9 MCH 28.5 MCHC 31.0 L RDW 18.0 H Plt Count 446 H MPV 8.1 Absolute Neuts (auto) 8.0 Neutrophils % 72.4 Lymphocytes % 19.1 Monocytes % 7.5 Eosinophils % 0.5 Basophils % 0.5 Nucleated RBC % 0 Sodium 141 Potassium 3.3 L Chloride 103 Carbon Dioxide 31 Anion Gap 6 L BUN 19 H Creatinine 2.5 H Est GFR (CKD-EPI)AfAm 28.26 Est GFR (CKD-EPI)NonAf 24.38 POC Glucometer 101 Random Glucose 114 H Calcium 8.3 L Phosphorus 1.8 L Magnesium 1.9 Total Bilirubin 0.3 AST 8 L ALT < 6 L Alkaline Phosphatase 118 H Total Protein 5.5 L Albumin 1.1 L Active Medications Generic Name Dose Route Start Last Admin Trade Name Freq PRN Reason Stop Dose Admin Albuterol/Ipratropium 1 amp 02/21/19 19:04 Duoneb - NEB Q6H PRN SHORTNESS OF BREATH Allopurinol 100 mg 02/22/19 10:00 02/26/19 09:13 Zyloprim - PO 100 mg DAILY [facility] Administration Amino Acids 30 ml 02/21/19 22:00 02/27/19 06:30 Prosource No Carb Liquid Pkt PO 30 ml TID [facility] Administration Apixaban 2.5 mg 02/21/19 22:00 02/26/19 21:29 Eliquis - PO 2.5 mg BID [facility] Administration Atorvastatin Calcium 20 mg 02/21/19 22:00 02/26/19 21:29 Lipitor - PO 20 mg HS [facility] Administration Collagenase 1 applic 02/22/19 10:00 02/26/19 09:13 Santyl - TP 1 applic DAILY [facility] Administration Protocol Escitalopram Oxalate 10 mg 02/22/19 10:00 02/26/19 09:13 Lexapro - PO 10 mg DAILY [facility] Administration Norepinephrine Bitartrate 8, 500 mls @ 18.75 mls/hr 02/23/19 12:45 02/26/19 23:00 000 mcg/ Dextrose IV 10 mcg/min TITR [facility] 37.5 mls/hr Titration Protocol 5 MCG/MIN Ceftriaxone Sodium 2 gm/ 100 mls @ 200 mls/hr 02/25/19 10:00 02/26/19 09:12 Dextrose IVPB 200 mls/hr DAILY [facility] Administration Protocol Metronidazole 500 mg in 100 mls @ 100 mls/hr 02/24/19 18:00 02/27/19 01:19 Flagyl 500mg Premixed Ivpb - IVPB 100 mls/hr Q8H-IV [facility] Administration Insulin Aspart 1 vial 02/26/19 10:00 02/27/19 06:29 Novolog Vial Sliding Scale - SQ Not Given BIDAC [facility] Protocol Lactobacillus Acidophilus 1 tab 02/22/19 10:00 02/26/19 09:14 Bacid - PO 1 tab DAILY [facility] Administration Midodrine 5 mg 02/23/19 10:00 02/26/19 09:13 Proamatine - PO 5 mg SuTuThSa@1000 [facility] Administration Midodrine 10 mg 02/22/19 10:00 02/25/19 11:00 Proamatine - PO 10 mg MoWeFr@1000 [facility] Administration Morphine Sulfate 2 mg 02/25/19 12:31 02/27/19 04:51 Morphine Sulfate IVPUSH 2 mg Q6H PRN Administration PAIN LEVEL 6-10 Multivitamins/Minerals/Vitamin C 1 tab 02/22/19 10:00 02/26/19 09:14 Tab-A-Vit - PO 1 tab DAILY [facility] Administration Sevelamer Carbonate 1,600 mg 02/22/19 08:00 02/26/19 18:04 Renvela - PO 1,600 mg TIDCM [facility] Administration Tamsulosin HCl 0.4 mg 02/21/19 22:00 02/26/19 21:29 Flomax - PO 0.4 mg HS [facility] Administration ASSESSMENT/PLAN: 73 yo M PMH dementia, CVA, DM, COPD, ESRD, gout, HTN, HLP, recent admission 01/31- 02/19 during which he was treated for sepsis due to infected b/l feet ulcers/ gangrene. He was sent form NH due to poor po intake, and worsening of ulcers. Now in septic shock 2/2 DM gangrenous B/L feet infx, Infected sacral decub and scrotal ulcer, and GN bacteremia , requiring ICU and pressors #septic shock 2/2 DM gangrenous B/L feet infx, Infected sacral decub and scrotal ulcer, and GN bacteremia (proteus, prevotella) - requiring ICU and pressors, +L IJ. +Leukocytosis -old cx with E coli, ESBL, MRSA, and VRE. -contact isolation for MDRO -s/p Vanc and Zosyn in the ED, Gentamicin x1, Meropenem x2 in ICU -Bcx 02/21/19 growing GN cher - proteus and prevotella -ucx neg -wound cx E coli, morganella -Bcx 02/23/19 neg -ID consulted, Rangel -lactic acid downtrended to 1.6 -palliative care consulted -c/w ceftriaxone 2g/flagyl d3, per ID recs -Aspiration precautions. -Levophed gtt 10, Titrate pressors to keep MAP>65 -vascular surgery consulted, Dr harry, for wound care. amputation indicated, but family not amenable. cont GOC -per ID no vanc, cx show no MRSA for >48hr #ESRD on HD (MWF) -nephro consulted (Dr. Henriquez) -HD as per nephro ned held by nephro for low phos. #Acute on chronic anemia likely 2/2 ESRD -monitor H/H #Severe protein calorie malnutrition -albumin 1.1 -thin appearing, decreased muscle mass and fat -decreased overall PO intake -Encourage Magic cup, Ensure pudding for increased density of nutritional intake #COPD -keep SpO2>90% -Duonebs q6h PRN #Dm ISS BGM ACHS #H/o hypotension : cont home midodrine monitor vitals # h/o afib c/w elequis 2.5 bid #FEN -Not on any standing fluids -replete prn -tolerating puree diet, per speech eval #Prophylaxis -Eliquis 2.5mg BID #Disposition -full code -GOC/ethics consult placed, as we have attempted multiple times to contact daughter who has not responded and in the past has not been amenable to to allow for source control/amputation and standard of care. given patients inability to make decisions for himself and daughter unwillingness pt will likely cont to suffer w/o improvement and has spoor prognosis. yesterday multiple times various members of primary team and ICU team tried contacting daughter and brother for GOC/ethics meeting but still no response from family. will cont to call today -ICU monitoring Visit type - Emergency Visit Emergency Visit: Yes ED Registration Date: 02/21/19 Care time: The patient presented to the Emergency Department on the above date and was hospitalized for further evaluation of their emergent condition. - New Patient This patient is new to me today: Yes Date on this admission: 02/27/19 - Critical Care Critical Care patient: Yes Total Critical Care Time (in minutes): 38 Critical Care Statement: The care of this patient involved high complexity decision making to prevent further life threatening deterioration of the patient 's condition and/or to evaluate & treat vital organ system(s) failure or risk of failure.
[2019-02-27] MEDS: SEVELAMER CARBONATE 800 MG TAB (FP) PO SCH ×2 (08:56→15:00)
[2019-02-27] MEDS ORDERED: DEXTROSE 5%-WATER 100 ML IVPB ONE (09:20)
[2019-02-27] MEDS: CEFTRIAXONE 2 GM in DEXTROSE 5%-WATER 100 ML IVPB SCH (09:26)
[2019-02-27] MEDS: ALLOPURINOL 100 MG TABLET (FP) PO SCH ×2 (09:27→10:04)
[2019-02-27] MEDS: ESCITALOPRAM OXALATE 10 MG TABLET (FP) PO SCH ×2 (09:27→10:04)
[2019-02-27] MEDS: LACTOBACILLUS ACIDOPHILUS 1 TABLET PO SCH ×2 (09:27→10:04)
[2019-02-27] MEDS: APIXABAN 2.5 MG TABLET PO SCH ×3 (09:27→21:41)
[2019-02-27] MEDS: MULTIVITAMINS (DAILY MVI) TABLET (FP) PO SCH ×2 (09:27→10:04)
[2019-02-27] MEDS: COLLAGENASE CLOSTRIDIUM HIST. 30 GRAMS TUBE TP SCH (09:29)
[2019-02-27] MEDS: MIDODRINE HCL 5 MG TABLET PO SCH ×2 (09:32→10:04)
--- NOTE | 2019-02-27 10:11 | PN ---
Progress Note (short form) - Note Progress Note: awake, remains on presors- unchanged eating when fed no distress noted Vital Signs Period Temp Pulse Resp BP Sys/Zamorano Pulse Ox Last 24 Hr 97.9 F-99.2 F 82-100 14-25 79-128/33-105 97-98 cor-rrr lungs decreased bs at bases abd soft,nt ext bandaged CBC, BMP 02/27/19 05:30 02/27/19 05:30 Microbiology 02/23/19 11:50 Blood - Peripheral Venous Blood Culture - Preliminary NO GROWTH OBTAINED AFTER 72 HOURS, INCUBATION TO CONTINUE FOR 2 DAYS. 02/23/19 11:50 Blood - Peripheral Venous Blood Culture - Preliminary NO GROWTH OBTAINED AFTER 72 HOURS, INCUBATION TO CONTINUE FOR 2 DAYS. 02/21/19 13:16 Blood - Peripheral Venous Blood Culture - Final Proteus Mirabilis Prevotella Melaninogenica 02/21/19 16:30 Foot - Left Heel Gram Stain - Final 02/21/19 16:30 Foot - Left Heel Wound Culture - Final Escherichia Coli Esbl Boardinghouse Keeper Morganella Morganii 02/21/19 15:40 Blood - Peripheral Venous Blood Culture - Final Proteus Mirabilis 02/21/19 14:50 Urine - Urine - Catheterized Urine Culture - Final NO GROWTH OBTAINED Current Medications Albuterol/Ipratropium (Duoneb -) 1 amp NEB Q6H PRN PRN Reason: SHORTNESS OF BREATH Allopurinol (Zyloprim -) 100 mg PO DAILY [facility] Last Admin: 02/26/19 09:13 Dose: 100 mg Amino Acids (Prosource No Carb Liquid Pkt) 30 ml PO TID [facility] Last Admin: 02/27/19 06:30 Dose: 30 ml Apixaban (Eliquis -) 2.5 mg PO BID [facility] Last Admin: 02/26/19 21:29 Dose: 2.5 mg Atorvastatin Calcium (Lipitor -) 20 mg PO HS [facility] Last Admin: 02/26/19 21:29 Dose: 20 mg Collagenase (Santyl -) 1 applic TP DAILY [facility]; Protocol Last Admin: 02/27/19 09:29 Dose: 1 applic Escitalopram Oxalate (Lexapro -) 10 mg PO DAILY [facility] Last Admin: 02/26/19 09:13 Dose: 10 mg Norepinephrine Bitartrate 8, (000 mcg/ Dextrose) 500 mls @ 18.75 mls/hr IV TITR [facility]; Protocol Last Titration: 02/27/19 10:01 Dose: 8 mcg/min, 30 mls/hr Ceftriaxone Sodium 2 gm/ (Dextrose) 100 mls @ 200 mls/hr IVPB DAILY [facility]; Protocol Last Admin: 02/27/19 09:26 Dose: 200 mls/hr Metronidazole (Flagyl 500mg Premixed Ivpb -) 500 mg in 100 mls @ 100 mls/hr IVPB Q8H-IV [facility] Last Admin: 02/27/19 09:27 Dose: 100 mls/hr Insulin Aspart (Novolog Vial Sliding Scale -) 1 vial SQ BIDAC [facility]; Protocol Last Admin: 02/27/19 06:29 Dose: Not Given Lactobacillus Acidophilus (Bacid -) 1 tab PO DAILY [facility] Last Admin: 02/26/19 09:14 Dose: 1 tab Midodrine (Proamatine -) 5 mg PO SuTuThSa@1000 [facility] Last Admin: 02/26/19 09:13 Dose: 5 mg Midodrine (Proamatine -) 10 mg PO MoWeFr@1000 [facility] Last Admin: 02/25/19 11:00 Dose: 10 mg Morphine Sulfate (Morphine Sulfate) 2 mg IVPUSH Q6H PRN PRN Reason: PAIN LEVEL 6-10 Last Admin: 02/27/19 04:51 Dose: 2 mg Multivitamins/Minerals/Vitamin C (Tab-A-Vit -) 1 tab PO DAILY [facility] Last Admin: 02/26/19 09:14 Dose: 1 tab Sevelamer Carbonate (Renvela -) 1,600 mg PO TIDCM [facility] Last Admin: 02/27/19 08:56 Dose: 1,600 mg Tamsulosin HCl (Flomax -) 0.4 mg PO HS [facility] Last Admin: 02/26/19 21:29 Dose: 0.4 mg a/p polymicrobial gram negative sepsis-proteus and prevotella suspected secondary to gangrenous legs esrd/hd continue ceftriaxone/flagyl day #5 antibiotics overall prognosis is poor medical team attempting to reach family Problem List - Problems (1) Gram negative sepsis Code(s): A41.50 - GRAM-NEGATIVE SEPSIS, UNSPECIFIED (2) Gangrene of both feet Code(s): I96 - GANGRENE, NOT ELSEWHERE CLASSIFIED (3) ESRD (end stage renal disease) on dialysis Code(s): N18.6 - END STAGE RENAL DISEASE; Z99.2 - DEPENDENCE ON RENAL DIALYSIS (4) MRSA (methicillin resistant 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 coli carrier Code(s): Z22.39 - CARRIER OF OTHER SPECIFIED BACTERIAL DISEASES (6) VRE (vancomycin-resistant Enterococci) Code(s): A49.1 - STREPTOCOCCAL INFECTION, UNSPECIFIED SITE; Z16.21 - RESISTANCE TO VANCOMYCIN
[2019-02-27] MEDS ORDERED: SODIUM CHLORIDE 250 ML IV PRN (11:00)
--- NOTE | 2019-02-27 11:25 | PN ---
Physical Exam: SUBJECTIVE: Patient seen and examined at bedside. Remains in septic shock on levo of 10. tried weaning overnight to 9 but became hypotensive. No other complaints. Was not able to contact family today. OBJECTIVE: Vital Signs Period Temp Pulse Resp BP Sys/Zamorano Pulse Ox Last 24 Hr 97.9 F-99.2 F 82-100 14-25 82-128/33-105 97-98 GENERAL: A&Ox0, no acute distress EYES: PERRLA, EOMI ENT: Dry mucus membranes NECK: No JVD LUNGS: mildly coarse breath sounds, no wheezes HEART: RRR, systolic murmur noted on exam EXTREMITIES: 2+ pulses, no edema. SKIN: bilateral gangrene lower ext down to the tendon on the left with purulent foul smelling discharge. Unstageble sacral ulcer Laboratory Results - last 24 hr 02/26/19 02/26/19 02/26/19 11:31 17:49 21:55 WBC RBC Hgb Hct MCV MCH MCHC RDW Plt Count MPV Absolute Neuts (auto) Neutrophils % Lymphocytes % Monocytes % Eosinophils % Basophils % Nucleated RBC % Sodium Potassium Chloride Carbon Dioxide Anion Gap BUN Creatinine Est GFR (CKD-EPI)AfAm Est GFR (CKD-EPI)NonAf POC Glucometer 134 154 123 Random Glucose Calcium Phosphorus Magnesium Total Bilirubin AST ALT Alkaline Phosphatase Total Protein Albumin 02/27/19 02/27/19 02/27/19 05:30 05:30 06:08 WBC 11.0 H RBC 2.62 L Hgb 7.5 L Hct 24.0 L MCV 91.9 MCH 28.5 MCHC 31.0 L RDW 18.0 H Plt Count 446 H MPV 8.1 Absolute Neuts (auto) 8.0 Neutrophils % 72.4 Lymphocytes % 19.1 Monocytes % 7.5 Eosinophils % 0.5 Basophils % 0.5 Nucleated RBC % 0 Sodium 141 Potassium 3.3 L Chloride 103 Carbon Dioxide 31 Anion Gap 6 L BUN 19 H Creatinine 2.5 H Est GFR (CKD-EPI)AfAm 28.26 Est GFR (CKD-EPI)NonAf 24.38 POC Glucometer 101 Random Glucose 114 H Calcium 8.3 L Phosphorus 1.8 L Magnesium 1.9 Total Bilirubin 0.3 AST 8 L ALT < 6 L Alkaline Phosphatase 118 H Total Protein 5.5 L Albumin 1.1 L Active Medications Generic Name Dose Route Start Last Admin Trade Name Freq PRN Reason Stop Dose Admin Albuterol/Ipratropium 1 amp 02/21/19 19:04 Duoneb - NEB Q6H PRN SHORTNESS OF BREATH Allopurinol 100 mg 02/22/19 10:00 02/27/19 10:04 Zyloprim - PO Not Given DAILY [facility] Amino Acids 30 ml 02/21/19 22:00 02/27/19 06:30 Prosource No Carb Liquid Pkt PO 30 ml TID [facility] Administration Apixaban 2.5 mg 02/21/19 22:00 02/27/19 10:04 Eliquis - PO Not Given BID [facility] Atorvastatin Calcium 20 mg 02/21/19 22:00 02/26/19 21:29 Lipitor - PO 20 mg HS [facility] Administration Collagenase 1 applic 02/22/19 10:00 02/27/19 09:29 Santyl - TP 1 applic DAILY [facility] Administration Protocol Escitalopram Oxalate 10 mg 02/22/19 10:00 02/27/19 10:04 Lexapro - PO Not Given DAILY [facility] Norepinephrine Bitartrate 8, 500 mls @ 18.75 mls/hr 02/23/19 12:45 02/27/19 10:01 000 mcg/ Dextrose IV 8 mcg/min TITR [facility] 30 mls/hr Titration Protocol 5 MCG/MIN Ceftriaxone Sodium 2 gm/ 100 mls @ 200 mls/hr 02/25/19 10:00 02/27/19 09:26 Dextrose IVPB 200 mls/hr DAILY [facility] Administration Protocol Metronidazole 500 mg in 100 mls @ 100 mls/hr 02/24/19 18:00 02/27/19 09:27 Flagyl 500mg Premixed Ivpb - IVPB 100 mls/hr Q8H-IV [facility] Administration Insulin Aspart 1 vial 02/26/19 10:00 02/27/19 06:29 Novolog Vial Sliding Scale - SQ Not Given BIDAC [facility] Protocol Lactobacillus Acidophilus 1 tab 02/22/19 10:00 02/27/19 10:04 Bacid - PO Not Given DAILY [facility] Midodrine 5 mg 02/23/19 10:00 02/26/19 09:13 Proamatine - PO 5 mg SuTuThSa@1000 [facility] Administration Midodrine 10 mg 02/22/19 10:00 02/27/19 10:04 Proamatine - PO Not Given MoWeFr@1000 [facility] Morphine Sulfate 2 mg 02/25/19 12:31 02/27/19 04:51 Morphine Sulfate IVPUSH 2 mg Q6H PRN Administration PAIN LEVEL 6-10 Multivitamins/Minerals/Vitamin C 1 tab 02/22/19 10:00 02/27/19 10:04 Tab-A-Vit - PO Not Given DAILY [facility] Sevelamer Carbonate 1,600 mg 02/22/19 08:00 02/27/19 08:56 Renvela - PO 1,600 mg TIDCM [facility] Administration Tamsulosin HCl 0.4 mg 02/21/19 22:00 02/26/19 21:29 Flomax - PO 0.4 mg HS [facility] Administration ASSESSMENT/PLAN: 73 y/o man with h/o dementia, CVA, DM, COPD, ESRD, gout, HTN, HLP, recent admission 01/31-02/19 during which he was treated for sepsis due to infected b/l feet ulcers/gangrene. He was sent form NH due to poor po intake, and non healing wounds #Septic Shock 2/2 b/l foot gangrene -on ceftriaxone/flagyl day -ID consultatoin -on levo 10 -measure CVP -cannot reach family -ethics and palliative on board for advanced directives. #ESRD on HD (MWF) -nephro following -HD yesterday as per nephro #Acute on chronic anemia likely 2/2 ESRD -monitor H/H #COPD -keep SpO2>90% -Duonebs q6h PRN #Dm ISS BGM ACHS #H/o hypotension : cont home midodrine monitor vitals # h/o afib c/w elequis 2.5 bid #FEN -Not on any standing fluids, will consider giving a small bolus if CVP low -replete lytes prn -tolerating puree diet #Prophylaxis -Eliquis 2.5mg BID #Disposition -continue ICU monitoring, will need discussion with ethics/family Visit type - Emergency Visit Emergency Visit: No - New Patient This patient is new to me today: No - Critical Care Critical Care patient: Yes Total Critical Care Time (in minutes): 35 Critical Care Statement: The care of this patient involved high complexity decision making to prevent further life threatening deterioration of the patient 's condition and/or to evaluate & treat vital organ system(s) failure or risk of failure.
--- NOTE | 2019-02-27 11:48 | PN ---
Progress Note, EM[employer] IN[employer] - Note Progress Note: Selected Entries 02/25/19 02/25/19 02/25/19 02:00 10:00 13:00 Diet Tolerated Supper Temperature 99.8 F H 98.3 F 97.8 F 02/25/19 02/25/19 02/26/19 17:00 18:00 02:00 Diet Tolerated Well Supper 75% Temperature 98.1 F 99.6 F 02/26/19 02/26/19 02/26/19 06:00 07:15 10:00 Diet Tolerated Supper Temperature 99.2 F 99 F 97.7 F Laboratory Tests 02/24/19 02/25/19 02/26/19 05:10 05:30 05:45 WBC 11.1 H 10.4 H 10.5 H Selected Entries 02/26/19 02/26/19 02/26/19 02:00 06:00 07:15 Breakfast Lunch Temperature 99.6 F 99.2 F 99 F 02/26/19 02/26/19 02/26/19 10:00 14:00 18:00 Breakfast 50% Lunch 50% Temperature 97.7 F 97.9 F 98.4 F 02/26/19 02/26/19 02/27/19 20:00 22:00 02:00 Breakfast Lunch Temperature 98.8 F 98.4 F 99.2 F 02/27/19 02/27/19 06:00 09:55 Breakfast Lunch Temperature 98.2 F 98 F Laboratory Tests 02/26/19 02/27/19 05:45 05:30 WBC 10.5 H 11.0 H Yesterday, good tolerance breakfast and lunch,accepted 50% of trays, intermittent oral holding reported. Acceptyed only a little last night for dinner and refused breakfast this am. More lethargic today, reduced intelligibility, accepted 2 tsp Ensure pudding with good tolerance, pushed the rest away. Continue diet as tolerated and accepted. Encourage Magic cup,Ensure pudding for increased density of nutritional intake.
[2019-02-27] MEDS: NOREPINEPHRINE BITARTRATE 8,000 MCG in DEXTROSE 5%-WATER - 492 ML IV SCH (12:00)
--- NOTE | 2019-02-27 12:06 | PN ---
Progress Note, Physician History of Present Illness: Pt seen and examined at bedside. He remains in the ICU. No great change in status. - Current Medication List Current Medications: Active Medications Albuterol/Ipratropium (Duoneb -) 1 amp NEB Q6H PRN PRN Reason: SHORTNESS OF BREATH Allopurinol (Zyloprim -) 100 mg PO DAILY [facility] Last Admin: 02/27/19 10:04 Dose: Not Given Amino Acids (Prosource No Carb Liquid Pkt) 30 ml PO TID [facility] Last Admin: 02/27/19 06:30 Dose: 30 ml Apixaban (Eliquis -) 2.5 mg PO BID [facility] Last Admin: 02/27/19 10:04 Dose: Not Given Atorvastatin Calcium (Lipitor -) 20 mg PO HS [facility] Last Admin: 02/26/19 21:29 Dose: 20 mg Collagenase (Santyl -) 1 applic TP DAILY [facility]; Protocol Last Admin: 02/27/19 09:29 Dose: 1 applic Escitalopram Oxalate (Lexapro -) 10 mg PO DAILY [facility] Last Admin: 02/27/19 10:04 Dose: Not Given Norepinephrine Bitartrate 8, (000 mcg/ Dextrose) 500 mls @ 18.75 mls/hr IV TITR [facility]; Protocol Last Titration: 02/27/19 10:01 Dose: 8 mcg/min, 30 mls/hr Ceftriaxone Sodium 2 gm/ (Dextrose) 100 mls @ 200 mls/hr IVPB DAILY [facility]; Protocol Last Admin: 02/27/19 09:26 Dose: 200 mls/hr Metronidazole (Flagyl 500mg Premixed Ivpb -) 500 mg in 100 mls @ 100 mls/hr IVPB Q8H-IV [facility] Last Admin: 02/27/19 09:27 Dose: 100 mls/hr Insulin Aspart (Novolog Vial Sliding Scale -) 1 vial SQ BIDAC [facility]; Protocol Last Admin: 02/27/19 06:29 Dose: Not Given Lactobacillus Acidophilus (Bacid -) 1 tab PO DAILY [facility] Last Admin: 02/27/19 10:04 Dose: Not Given Midodrine (Proamatine -) 5 mg PO SuTuThSa@1000 [facility] Last Admin: 02/26/19 09:13 Dose: 5 mg Midodrine (Proamatine -) 10 mg PO MoWeFr@1000 [facility] Last Admin: 02/27/19 10:04 Dose: Not Given Morphine Sulfate (Morphine Sulfate) 2 mg IVPUSH Q6H PRN PRN Reason: PAIN LEVEL 6-10 Last Admin: 02/27/19 04:51 Dose: 2 mg Multivitamins/Minerals/Vitamin C (Tab-A-Vit -) 1 tab PO DAILY [facility] Last Admin: 02/27/19 10:04 Dose: Not Given Sevelamer Carbonate (Renvela -) 1,600 mg PO TIDCM [facility] Last Admin: 02/27/19 08:56 Dose: 1,600 mg Tamsulosin HCl (Flomax -) 0.4 mg PO HS [facility] Last Admin: 02/26/19 21:29 Dose: 0.4 mg - Objective Vital Signs: Vital Signs Temperature 98 F 02/27/19 09:55 Pulse Rate 89 02/27/19 10:01 Respiratory Rate 20 02/27/19 09:55 Blood Pressure 114/96 02/27/19 10:01 O2 Sat by Pulse Oximetry (%) 97 02/27/19 09:00 Constitutional: Yes: Calm Eyes: Yes: Conjunctiva Clear HENT: Yes: Atraumatic Cardiovascular: Yes: S1, S2 Respiratory: Yes: On Nasal O2 Gastrointestinal: Yes: Soft Genitourinary: Yes: Incontinence Edema: No Neurological: Yes: Confusion Labs: CBC, BMP 02/27/19 05:30 02/27/19 05:30 INR, PTT INR 1.44 (0.83-1.09) H 02/22/19 05:40 Assessment/Plan Current Medications Generic Name Dose Route Start Last Admin Trade Name Freq PRN Reason Stop Dose Admin Albuterol/Ipratropium 1 amp 02/21/19 19:04 Duoneb - NEB Q6H PRN SHORTNESS OF BREATH Allopurinol 100 mg 02/22/19 10:00 02/27/19 10:04 Zyloprim - PO Not Given DAILY [facility] Amino Acids 30 ml 02/21/19 22:00 02/27/19 06:30 Prosource No Carb Liquid Pkt PO 30 ml TID [facility] Administration Apixaban 2.5 mg 02/21/19 22:00 02/27/19 10:04 Eliquis - PO Not Given BID [facility] Atorvastatin Calcium 20 mg 02/21/19 22:00 02/26/19 21:29 Lipitor - PO 20 mg HS [facility] Administration Collagenase 1 applic 02/22/19 10:00 02/27/19 09:29 Santyl - TP 1 applic DAILY [facility] Administration Protocol Escitalopram Oxalate 10 mg 02/22/19 10:00 02/27/19 10:04 Lexapro - PO Not Given DAILY [facility] Norepinephrine Bitartrate 8, 500 mls @ 18.75 mls/hr 02/23/19 12:45 02/27/19 10:01 000 mcg/ Dextrose IV 8 mcg/min TITR [facility] 30 mls/hr Titration Protocol 5 MCG/MIN Ceftriaxone Sodium 2 gm/ 100 mls @ 200 mls/hr 02/25/19 10:00 02/27/19 09:26 Dextrose IVPB 200 mls/hr DAILY [facility] Administration Protocol Metronidazole 500 mg in 100 mls @ 100 mls/hr 02/24/19 18:00 02/27/19 09:27 Flagyl 500mg Premixed Ivpb - IVPB 100 mls/hr Q8H-IV [facility] Administration Insulin Aspart 1 vial 02/26/19 10:00 02/27/19 06:29 Novolog Vial Sliding Scale - SQ Not Given BIDAC [facility] Protocol Lactobacillus Acidophilus 1 tab 02/22/19 10:00 02/27/19 10:04 Bacid - PO Not Given DAILY [facility] Midodrine 5 mg 02/23/19 10:00 02/26/19 09:13 Proamatine - PO 5 mg SuTuThSa@1000 [facility] Administration Midodrine 10 mg 02/22/19 10:00 02/27/19 10:04 Proamatine - PO Not Given MoWeFr@1000 [facility] Morphine Sulfate 2 mg 02/25/19 12:31 02/27/19 04:51 Morphine Sulfate IVPUSH 2 mg Q6H PRN Administration PAIN LEVEL 6-10 Multivitamins/Minerals/Vitamin C 1 tab 02/22/19 10:00 02/27/19 10:04 Tab-A-Vit - PO Not Given DAILY [facility] Sevelamer Carbonate 1,600 mg 02/22/19 08:00 02/27/19 08:56 Renvela - PO 1,600 mg TIDCM [facility] Administration Tamsulosin HCl 0.4 mg 02/21/19 22:00 02/26/19 21:29 Flomax - PO 0.4 mg HS [facility] Administration Impression 1. ESRD 2. gangrene 3. DM 4. hyperlipidemia 5. HTN 6. gout 7. proteinuria 8. hypotension 9. sepsis Plan - d/c sevelemar - will give dose of phos - hd tomorrow - renal diet - abx per ID - family refusing surgery
[2019-02-27] MEDS ORDERED: NAPH,MB-DB/K PH,MBDB POWDER PACKET PO ONE (12:07)
[2019-02-27] MEDS ORDERED: POTASSIUM CHLORIDE ORAL LIQUID 20 MEQ/15 ML PO ONE (12:07)
--- NOTE | 2019-02-27 13:05 | PN ---
Teaching Attending Note Name of Resident: Fili Miller ATTENDING PHYSICIAN STATEMENT I saw and evaluated the patient. I reviewed the resident's note and discussed the case with the resident. I agree with the resident's findings and plan as documented. SUBJECTIVE: Pt seen and examined in the ICU. Remains lethargic but arousable on levophed gtt. OBJECTIVE: Vital Signs Period Temp Pulse Resp BP Sys/Zamorano Pulse Ox Last 24 Hr 97.9 F-99.2 F 82-100 14-25 82-128/33-105 97-98 Intake & Output 02/24/19 02/25/19 02/26/19 02/27/19 23:59 23:59 23:59 23:59 Intake Total 897.5 1170 1569.2 262.5 Output Total 1 0 Balance 897.5 1170 1568.2 262.5 Weight 61.915 kg 61.734 kg 62.46 kg 59.511 kg Gen: lethargic but arousable Heart: RRR Lung: decreased breath sounds at the bases Abd: soft, nontender Ext: bilateral foot gangrene CBC, BMP 02/27/19 05:30 02/27/19 05:30 Active Medications Albumin Human (Albumin Human 25%) 12.5 gm IVPB Q30M [facility] Albuterol/Ipratropium (Duoneb -) 1 amp NEB Q6H PRN PRN Reason: SHORTNESS OF BREATH Allopurinol (Zyloprim -) 100 mg PO DAILY [facility] Last Admin: 02/27/19 10:04 Dose: Not Given Amino Acids (Prosource No Carb Liquid Pkt) 30 ml PO TID [facility] Last Admin: 02/27/19 06:30 Dose: 30 ml Apixaban (Eliquis -) 2.5 mg PO BID [facility] Last Admin: 02/27/19 10:04 Dose: Not Given Atorvastatin Calcium (Lipitor -) 20 mg PO HS [facility] Last Admin: 02/26/19 21:29 Dose: 20 mg Collagenase (Santyl -) 1 applic TP DAILY [facility]; Protocol Last Admin: 02/27/19 09:29 Dose: 1 applic Epoetin Jose (Epogen -) 10,000 unit IVPUSH ONCE ONE Stop: 02/28/19 12:09 Escitalopram Oxalate (Lexapro -) 10 mg PO DAILY [facility] Last Admin: 02/27/19 10:04 Dose: Not Given Norepinephrine Bitartrate 8, (000 mcg/ Dextrose) 500 mls @ 18.75 mls/hr IV TITR [facility]; Protocol Last Titration: 02/27/19 10:01 Dose: 8 mcg/min, 30 mls/hr Ceftriaxone Sodium 2 gm/ (Dextrose) 100 mls @ 200 mls/hr IVPB DAILY [facility]; Protocol Last Admin: 02/27/19 09:26 Dose: 200 mls/hr Metronidazole (Flagyl 500mg Premixed Ivpb -) 500 mg in 100 mls @ 100 mls/hr IVPB Q8H-IV [facility] Last Admin: 02/27/19 09:27 Dose: 100 mls/hr Sodium Chloride (Normal Saline -) 250 mls @ 3,000 mls/hr IV PRN PRN PRN Reason: Hypotension during Dialysis Stop: 02/28/19 12:08 Insulin Aspart (Novolog Vial Sliding Scale -) 1 vial SQ BIDAC [facility]; Protocol Last Admin: 02/27/19 06:29 Dose: Not Given Lactobacillus Acidophilus (Bacid -) 1 tab PO DAILY [facility] Last Admin: 02/27/19 10:04 Dose: Not Given Midodrine (Proamatine -) 5 mg PO SuTuThSa@1000 [facility] Last Admin: 02/26/19 09:13 Dose: 5 mg Midodrine (Proamatine -) 10 mg PO MoWeFr@1000 [facility] Last Admin: 02/27/19 10:04 Dose: Not Given Morphine Sulfate (Morphine Sulfate) 2 mg IVPUSH Q6H PRN PRN Reason: PAIN LEVEL 6-10 Last Admin: 02/27/19 04:51 Dose: 2 mg Multivitamins/Minerals/Vitamin C (Tab-A-Vit -) 1 tab PO DAILY [facility] Last Admin: 02/27/19 10:04 Dose: Not Given Tamsulosin HCl (Flomax -) 0.4 mg PO HS [facility] Last Admin: 02/26/19 21:29 Dose: 0.4 mg ASSESSMENT AND PLAN: Bilateral Feet Gangrene Infected Decubitus Ulcers Gram Negative Bacteremia Septic Shock ESRD on HD DM HTN Hyperlipidemia h/o CVA - continue antibiotics per ID - IVF boluses as needed - taper pressors to maintain MAP >65 - wound care - HD per renal - aspiration precautions - continue attempts to contact family regarding goals of care, advanced directives - DVT prophylaxis - continue ICU monitoring critical care time spent in reviewing chart, evaluating patient and formulating plan 35 min
[2019-02-27] MEDS ORDERED: SODIUM CHLORIDE IVPB STA (13:37)
[2019-02-27] MEDS ORDERED: POTASSIUM PHOSPHATE IVPB STA (13:37)
[2019-02-27] MEDS ORDERED: POTASSIUM PHOSPHATE IVPB SCH (15:00)
[2019-02-27] MEDS ORDERED: SODIUM CHLORIDE IVPB SCH (15:00)
--- NOTE | 2019-02-27 18:40 | PN ---
Teaching Attending Note Name of Resident: Mathew Adorno ATTENDING PHYSICIAN STATEMENT I saw and evaluated the patient. I reviewed the resident's note and discussed the case with the resident. I agree with the resident's findings and plan as documented. SUBJECTIVE: Patient is in ICU, continues to be in septic shock on pressor. OBJECTIVE: Vital Signs Temperature 98.4 F 02/27/19 18:00 Pulse Rate 94 H 02/27/19 18:00 Respiratory Rate 16 02/27/19 18:00 Blood Pressure 107/59 L 02/27/19 18:00 O2 Sat by Pulse Oximetry (%) 97 02/27/19 09:00 GENERAL: A&Ox0, no acute distress EYES: PERRLA, EOMI ENT: Dry mucus membranes, NECK: No JVD LUNGS: mildly coarse breath sounds, no wheezes HEART: RRR, systolic murmur noted on exam EXTREMITIES: 2+ pulses, no edema. contracted lower extremities. SKIN: bilateral gangrene lower ext down to the tendon on the left with purulent foul smelling discharge. Sacrum: Unstageble sacral ulcer CBCD WBC 11.0 K/mm3 (4.0-10.0) H 02/27/19 05:30 RBC 2.62 M/mm3 (4.00-5.60) L 02/27/19 05:30 Hgb 7.5 GM/dL (11.7-16.9) L 02/27/19 05:30 Hct 24.0 % (35.4-49) L 02/27/19 05:30 MCV 91.9 fl (80-96) 02/27/19 05:30 MCHC 31.0 g/dl (32.0-35.9) L 02/27/19 05:30 RDW 18.0 % (11.9-15.9) H 02/27/19 05:30 Plt Count 446 K/MM3 (134-434) H 02/27/19 05:30 MPV 8.1 fl (7.5-11.1) 02/27/19 05:30 CMP Sodium 141 mmol/L (136-145) 02/27/19 05:30 Potassium 3.3 mmol/L (3.5-5.1) L 02/27/19 05:30 Chloride 103 mmol/L (98-107) 02/27/19 05:30 Carbon Dioxide 31 mmol/L (21-32) 02/27/19 05:30 Anion Gap 6 MMOL/L (8-16) L 02/27/19 05:30 BUN 19 mg/dL (7-18) H 02/27/19 05:30 Creatinine 2.5 mg/dL (0.55-1.3) H 02/27/19 05:30 Random Glucose 114 mg/dL (74-106) H 02/27/19 05:30 Calcium 8.3 mg/dL (8.5-10.1) L 02/27/19 05:30 Total Bilirubin 0.3 mg/dL (0.2-1) 02/27/19 05:30 AST 8 U/L (15-37) L 02/27/19 05:30 ALT < 6 U/L (13-61) L 02/27/19 05:30 Alkaline Phosphatase 118 U/L (45-117) H 02/27/19 05:30 Total Protein 5.5 g/dl (6.4-8.2) L 02/27/19 05:30 Albumin 1.1 g/dl (3.4-5.0) L 02/27/19 05:30 CARDIAC ENZYMES Troponin I < 0.02 ng/ml (0.00-0.05) 02/21/19 15:10 Current Medications Generic Name Dose Route Start Last Admin Trade Name Freq PRN Reason Stop Dose Admin Albumin Human 12.5 gm 02/28/19 12:15 Albumin Human 25% IVPB Q30M [facility] Albuterol/Ipratropium 1 amp 02/21/19 19:04 Duoneb - NEB Q6H PRN SHORTNESS OF BREATH Allopurinol 100 mg 02/22/19 10:00 02/27/19 10:04 Zyloprim - PO Not Given DAILY [facility] Amino Acids 30 ml 02/21/19 22:00 02/27/19 13:28 Prosource No Carb Liquid Pkt PO Not Given TID [facility] Apixaban 2.5 mg 02/21/19 22:00 02/27/19 10:04 Eliquis - PO Not Given BID [facility] Atorvastatin Calcium 20 mg 02/21/19 22:00 02/26/19 21:29 Lipitor - PO 20 mg HS [facility] Administration Collagenase 1 applic 02/22/19 10:00 02/27/19 09:29 Santyl - TP 1 applic DAILY [facility] Administration Protocol Epoetin Jose 10,000 unit 02/28/19 12:08 Epogen - IVPUSH 02/28/19 12:09 ONCE ONE Escitalopram Oxalate 10 mg 02/22/19 10:00 02/27/19 10:04 Lexapro - PO Not Given DAILY [facility] Norepinephrine Bitartrate 8, 500 mls @ 18.75 mls/hr 02/23/19 12:45 02/27/19 12:00 000 mcg/ Dextrose IV 8 mcg/min TITR [facility] 30 mls/hr Administration Protocol 5 MCG/MIN Ceftriaxone Sodium 2 gm/ 100 mls @ 200 mls/hr 02/25/19 10:00 02/27/19 09:26 Dextrose IVPB 200 mls/hr DAILY [facility] Administration Protocol Metronidazole 500 mg in 100 mls @ 100 mls/hr 02/24/19 18:00 02/27/19 17:39 Flagyl 500mg Premixed Ivpb - IVPB 100 mls/hr Q8H-IV [facility] Administration Sodium Chloride 250 mls @ 3,000 mls/hr 02/27/19 12:08 Normal Saline - IV 02/28/19 12:08 PRN PRN Hypotension during Dialysis Potassium Phosphate 20 mm/ 506.6667 mls @ 83 mls/hr 02/27/19 19:00 Sodium Chloride IV 02/28/19 01:06 ONCE ONE Insulin Aspart 1 vial 02/26/19 10:00 02/27/19 17:39 Novolog Vial Sliding Scale - SQ Not Given BIDAC [facility] Protocol Lactobacillus Acidophilus 1 tab 02/22/19 10:00 02/27/19 10:04 Bacid - PO Not Given DAILY [facility] Midodrine 5 mg 02/23/19 10:00 02/26/19 09:13 Proamatine - PO 5 mg SuTuThSa@1000 [facility] Administration Midodrine 10 mg 02/22/19 10:00 02/27/19 10:04 Proamatine - PO Not Given MoWeFr@1000 [facility] Morphine Sulfate 2 mg 02/25/19 12:31 02/27/19 04:51 Morphine Sulfate IVPUSH 2 mg Q6H PRN Administration PAIN LEVEL 6-10 Multivitamins/Minerals/Vitamin C 1 tab 02/22/19 10:00 02/27/19 10:04 Tab-A-Vit - PO Not Given DAILY [facility] Tamsulosin HCl 0.4 mg 02/21/19 22:00 02/26/19 21:29 Flomax - PO 0.4 mg HS [facility] Administration Home Medications Medication Instructions Recorded Albuterol 2.5/Ipratropium 0.5 1 amp NEB Q6H PRN #0 amp 07/12/17 [Duoneb -] Allopurinol [Zyloprim -] 100 mg PO DAILY tablet 07/12/17 Atorvastatin Ca [Lipitor] 20 mg PO HS tablet 07/12/17 Collagenase Clostridium Hist. 1 applic TP DAILY tube 09/06/18 [Santyl -] Albuterol Sulfate [Proair Hfa] 2 puff IH Q6H PRN 10/29/18 Escitalopram Oxalate [Lexapro -] 10 mg PO DAILY 10/29/18 Folic Acid/Vit B Complex and C 1 each PO DAILY 10/29/18 [Dialyvite Tablet] Midodrine HCl 10 mg PO MOWEFR 10/29/18 Sevelamer Carbonate [Renvela -] 1,600 mg PO TID 10/29/18 Tamsulosin HCl [Flomax] 0.4 mg PO HS 10/29/18 Insulin Sliding Scale [Novolog 1 vial SQ TIDAC #1 vial 11/17/18 Vial Sliding Scale -] Apixaban [Eliquis -] 5 mg PO BID #30 tablet MDD 2 11/19/18 Collagenase Clostridium Hist. 1 applic TP DAILY #1 tube 01/17/19 [Santyl -] Amoxicillin/Potassium Clav 1 each PO DAILY #7 tablet 02/06/19 [Augmentin 500-125 Tablet] Megestrol Acetate Oral Susp 400 mg PO DAILY #20 cup 02/06/19 [Megace Liquid -] Protein Supplement [Prosource] 275 gm PO TID #60 powder 02/06/19 Lactobacillus Acidophilus [Bacid -] 1 tab PO DAILY #60 tab 02/19/19 Midodrine HCl [Proamatine -] 5 mg PO SuTuThSa #60 tablet 02/19/19 traMADol HCL [Ultram -] 50 mg PO Q6H PRN #60 tablet MDD 4 02/19/19 Microbiology 02/23/19 11:50 Blood - Peripheral Venous Blood Culture - Preliminary NO GROWTH OBTAINED AFTER 96 HOURS, INCUBATION TO CONTINUE FOR 1 DAYS. 02/23/19 11:50 Blood - Peripheral Venous Blood Culture - Preliminary NO GROWTH OBTAINED AFTER 96 HOURS, INCUBATION TO CONTINUE FOR 1 DAYS. 02/21/19 13:16 Blood - Peripheral Venous Blood Culture - Final Proteus Mirabilis Prevotella Melaninogenica 02/21/19 16:30 Foot - Left Heel Gram Stain - Final 02/21/19 16:30 Foot - Left Heel Wound Culture - Final Escherichia Coli [facility] Morganella Morganii 02/21/19 15:40 Blood - Peripheral Venous Blood Culture - Final Proteus Mirabilis 02/21/19 14:50 Urine - Urine - Catheterized Urine Culture - Final NO GROWTH OBTAINED ASSESSMENT AND PLAN: Patient is a 73 y/o male with PMHx of dementia, CVA, DM, COPD, ESRD, gout, HTN, HLP, recent admission 01/31-02/19 during which he was treated for sepsis due to infected b/l LEs gangrenous ulcers. He was sent from [place] due to poor po intake, and non healing wounds # Gangrenous b/l LEs. with septic shock . on IV pressors Levophed continue , taper as needed. continue IV antibiotics Rocephin/flagyl, Vascular surgeon on the case, patient needs amputaion of lower extremities but unable to reach the family, will continue to reach out to the family again. # Septic shock due to bacteremia to Proteus Morganii continue IV antibiotics and pressors # Infected sacral decub and scrotal ulcer continue IV antibiotics # ESRD on HD , nephro on the case # DM with sliding scale with coverage # hypophosphatemia repleted # hypokalemia repleted Case d/w dr. Khan. No response from the daughter or any other family members , ethics on the case.
[2019-02-27] MEDS ORDERED: POTASSIUM PHOSPHATE IV ONE (19:00)
[2019-02-27] MEDS ORDERED: SODIUM CHLORIDE IV ONE (19:00)
[2019-02-27] MEDS ORDERED: SODIUM CHLORIDE 250 ML IV STA (19:29)
[2019-02-27] MEDS: ATORVASTATIN CA 20 MG TABLET (FP) PO SCH (21:41)
[2019-02-27] MEDS: TAMSULOSIN HCL 0.4 MG CAP PO SCH (21:41)
[2019-02-28] MEDS: MORPHINE SULFATE 2 MG/ML VIAL IVPUSH PRN ×3 (05:23→23:11)
[2019-02-28 06:46] LABS: BASO % 0.4 % (0-2.0); HEMATOCRIT 24.5 % (35.4-49); HEMOGLOBIN 7.5 GM/dL (11.7-16.9); LYMPH % 16.6 % (8-40); MCHC 30.5 g/dl (32.0-35.9); MEAN PLT VOLUME 7.8 fl (7.5-11.1); MONO % 7.6 % (3.8-10.2); NEUT % 74.4 % (42.8-82.8); PLATELET COUNT 413 K/MM3 (134-434); RBC 2.67 M/mm3 (4.00-5.60); RDW 17.7 % (11.9-15.9); WHITE BLOOD COUNT 11.3 K/mm3 (4.0-10.0)
[2019-02-28] MEDS: INSULIN SLIDING SCALE (NOVOLOG) 1 VIAL SQ SCH ×2 (06:47→18:00)
[2019-02-28] MEDS: AMINO ACIDS/PROTEIN HYDROLYS 30 ML LIQUID.PKT PO SCH ×3 (06:47→21:47)
[2019-02-28 06:53] LABS: ALBUMIN 1.1 g/dl (3.4-5.0); ALK PHOS 110 U/L (45-117); ANION GAP 5 MMOL/L (8-16); BILIRUBIN,TOTAL 0.2 mg/dL (0.2-1); BLOOD UREA NITROGEN 22 mg/dL (7-18); CALCIUM 7.8 mg/dL (8.5-10.1); CHLORIDE 102 mmol/L (98-107); CO2 30 mmol/L (21-32); CREATININE 2.9 mg/dL (0.55-1.3); GLUCOSE,RANDOM 125 mg/dL (74-106); PHOSPHOROUS 3.7 mg/dL (2.5-4.9); POTASSIUM 3.6 mmol/L (3.5-5.1); PREALBUMIN 3.5 mg/dl (20-40); SGOT/AST 5 U/L (15-37); SGPT/ALT < 6 U/L (13-61); SODIUM 137 mmol/L (136-145); TOT PROT 5.5 g/dl (6.4-8.2)
--- NOTE | 2019-02-28 08:17 | PN ---
Physical Exam: SUBJECTIVE: Patient seen and examined at bedside. noted hypotension...septic shock requiring pressors and ICU. no acute events overnight. tolerating puree diet. currently levo 8. yesterday multiple times various members of primary team and ICU team tried contacting daughter and brother for GOC/ethics meeting but no response OBJECTIVE: Vital Signs Period Temp Pulse Resp BP Sys/Zamorano Pulse Ox Last 24 Hr 98 F-98.4 F 75-94 16-22 94-128/35-96 97-97 GENERAL: lethargic, drowsy, oriented 0-1. thin appearing, decreased muscle mass and fat EARS, NOSE, THROAT: dry mucous membranes. LUNGS: CTAB HEART: irregularly irregular s1s2 normal ABDOMEN: Soft, NTND normoactive bowel sounds, ulcer present on sacrum unstagable with foul discharge, scrotum has ulcer no discharge MUSCULOSKELETAL: Normal range of motion at all joints. No bony deformities or tenderness. No CVA tenderness. UPPER EXTREMITIES: 2+ pulses, warm, well-perfused. LOWER EXTREMITIES: b/l wet gangrene with fouls smelling discharge SKIN: Warm, dry, Neuo: lethargic, responsive to pain. Laboratory Results - last 24 hr 02/27/19 02/27/19 02/28/19 17:04 17:35 05:15 WBC 11.3 H RBC 2.67 L Hgb 7.5 L Hct 24.5 L MCV 92.0 MCH 28.0 MCHC 30.5 L RDW 17.7 H Plt Count 413 MPV 7.8 Absolute Neuts (auto) 8.4 H Neutrophils % 74.4 Lymphocytes % 16.6 Monocytes % 7.6 Eosinophils % 1.0 D Basophils % 0.4 Nucleated RBC % 0 Sodium Potassium Chloride Carbon Dioxide Anion Gap BUN Creatinine Est GFR (CKD-EPI)AfAm Est GFR (CKD-EPI)NonAf POC Glucometer 342 123 Random Glucose Calcium Phosphorus Magnesium Total Bilirubin AST ALT Alkaline Phosphatase Total Protein Albumin Prealbumin 02/28/19 02/28/19 05:15 06:43 WBC RBC Hgb Hct MCV MCH MCHC RDW Plt Count MPV Absolute Neuts (auto) Neutrophils % Lymphocytes % Monocytes % Eosinophils % Basophils % Nucleated RBC % Sodium 137 Potassium 3.6 Chloride 102 Carbon Dioxide 30 Anion Gap 5 L BUN 22 H Creatinine 2.9 H Est GFR (CKD-EPI)AfAm 23.62 Est GFR (CKD-EPI)NonAf 20.38 POC Glucometer 114 Random Glucose 125 H Calcium 7.8 L Phosphorus 3.7 Magnesium 2.0 Total Bilirubin 0.2 AST 5 L ALT < 6 L Alkaline Phosphatase 110 Total Protein 5.5 L Albumin 1.1 L Prealbumin 3.5 L Active Medications Generic Name Dose Route Start Last Admin Trade Name Freq PRN Reason Stop Dose Admin Albumin Human 12.5 gm 02/28/19 12:15 Albumin Human 25% IVPB Q30M [facility] Albuterol/Ipratropium 1 amp 02/21/19 19:04 Duoneb - NEB Q6H PRN SHORTNESS OF BREATH Allopurinol 100 mg 02/22/19 10:00 02/27/19 10:04 Zyloprim - PO Not Given DAILY [facility] Amino Acids 30 ml 02/21/19 22:00 02/28/19 06:47 Prosource No Carb Liquid Pkt PO Not Given TID [facility] Apixaban 2.5 mg 02/21/19 22:00 02/27/19 21:41 Eliquis - PO Not Given BID [facility] Atorvastatin Calcium 20 mg 02/21/19 22:00 02/27/19 21:41 Lipitor - PO Not Given HS [facility] Collagenase 1 applic 02/22/19 10:00 02/27/19 09:29 Santyl - TP 1 applic DAILY [facility] Administration Protocol Epoetin Jose 10,000 unit 02/28/19 12:08 Epogen - IVPUSH 02/28/19 12:09 ONCE ONE Escitalopram Oxalate 10 mg 02/22/19 10:00 02/27/19 10:04 Lexapro - PO Not Given DAILY [facility] Norepinephrine Bitartrate 8, 500 mls @ 18.75 mls/hr 02/23/19 12:45 02/27/19 19:22 000 mcg/ Dextrose IV 8 mcg/min TITR [facility] 30 mls/hr Titration Protocol 5 MCG/MIN Ceftriaxone Sodium 2 gm/ 100 mls @ 200 mls/hr 02/25/19 10:00 02/27/19 09:26 Dextrose IVPB 200 mls/hr DAILY [facility] Administration Protocol Metronidazole 500 mg in 100 mls @ 100 mls/hr 02/24/19 18:00 02/28/19 01:50 Flagyl 500mg Premixed Ivpb - IVPB 100 mls/hr Q8H-IV [facility] Administration Sodium Chloride 250 mls @ 3,000 mls/hr 02/27/19 12:08 Normal Saline - IV 02/28/19 12:08 PRN PRN Hypotension during Dialysis Insulin Aspart 1 vial 02/26/19 10:00 02/28/19 06:47 Novolog Vial Sliding Scale - SQ Not Given BIDAC [facility] Protocol Lactobacillus Acidophilus 1 tab 02/22/19 10:00 02/27/19 10:04 Bacid - PO Not Given DAILY [facility] Midodrine 5 mg 02/23/19 10:00 02/26/19 09:13 Proamatine - PO 5 mg SuTuThSa@1000 [facility] Administration Midodrine 10 mg 02/22/19 10:00 02/27/19 10:04 Proamatine - PO Not Given MoWeFr@1000 [facility] Morphine Sulfate 2 mg 02/25/19 12:31 02/28/19 05:23 Morphine Sulfate IVPUSH 2 mg Q6H PRN Administration PAIN LEVEL 6-10 Multivitamins/Minerals/Vitamin C 1 tab 02/22/19 10:00 02/27/19 10:04 Tab-A-Vit - PO Not Given DAILY [facility] Tamsulosin HCl 0.4 mg 02/21/19 22:00 02/27/19 21:41 Flomax - PO Not Given HS [facility] 73 yo M PMH dementia, CVA, DM, COPD, ESRD, gout, HTN, HLP, recent admission 01/31- 02/19 during which he was treated for sepsis due to infected b/l feet ulcers/ gangrene. [place] was sent [place] due to poor po intake, and worsening of ulcers. Now in septic shock 2/2 DM gangrenous B/L feet infx, Infected sacral decub and scrotal ulcer, and GN bacteremia , requiring ICU and pressors #septic shock 2/2 DM gangrenous B/L feet infx, Infected sacral decub and scrotal ulcer, and GN bacteremia (proteus, prevotella) - requiring ICU and pressors, +L IJ. +Leukocytosis -old cx with E coli, ESBL, MRSA, and VRE. -contact isolation for MDRO -s/p Vanc and Zosyn in the ED, Gentamicin x1, Meropenem x2 in ICU -Bcx 02/21/19 growing GN cher - proteus and prevotella -ucx neg -wound cx E coli, morganella -Bcx 02/23/19 neg -ID consulted, Rangel -lactic acid resolved -palliative care consulted -c/w ceftriaxone 2g/flagyl d4, per ID recs -Aspiration precautions. -Levophed gtt 8, Titrate pressors to keep MAP>65 -vascular surgery consulted, Dr harry, for wound care. amputation indicated, but family not amenable. cont GOC -per ID no vanc, cx show no MRSA for >48hr #ESRD on HD (MWF) -nephro consulted (Dr. Henriquez) -HD as per nephro ned held by nephro for low phos. #Acute on chronic anemia likely 2/2 ESRD -monitor H/H #Severe protein calorie malnutrition -albumin 1.1, prealbumin 3.5 -thin appearing, decreased muscle mass and fat -decreased overall PO intake -Encourage Magic cup, Ensure pudding for increased density of nutritional intake #COPD -keep SpO2>90% -Duonebs q6h PRN #Dm ISS BGM ACHS #H/o hypotension : c/w home midodrine monitor vitals # h/o afib c/w elequis 2.5 bid #FEN -Not on any standing fluids -replete prn -tolerating puree diet, per speech eval #Prophylaxis -Eliquis 2.5mg BID #Disposition -full code -GOC/ethics consult placed, as we have attempted multiple times to contact daughter who has not responded and in the past has not been amenable to to allow for source control/amputation and standard of care. given patients inability to make decisions for himself and daughter unwillingness pt will likely cont to suffer w/o improvement and has spoor prognosis. yesterday multiple times various members of primary team and ICU team tried contacting daughter and brother for GOC/ethics meeting but still no response from family. will cont to call today -ICU monitoring Visit type - Emergency Visit Emergency Visit: Yes ED Registration Date: 02/21/19 Care time: The patient presented to the Emergency Department on the above date and was hospitalized for further evaluation of their emergent condition. - New Patient This patient is new to me today: Yes Date on this admission: 02/28/19 - Critical Care Critical Care patient: Yes Total Critical Care Time (in minutes): 37 Critical Care Statement: The care of this patient involved high complexity decision making to prevent further life threatening deterioration of the patient 's condition and/or to evaluate & treat vital organ system(s) failure or risk of failure.
[2019-02-28] MEDS ORDERED: DEXTROSE 5%-WATER 100 ML IVPB ONE (10:29)
[2019-02-28] MEDS: MIDODRINE HCL 5 MG TABLET PO SCH (10:35)
[2019-02-28] MEDS ORDERED: EPOETIN ALFA 10,000 UNIT/1 ML VIAL IVPUSH ONE (11:00)
[2019-02-28] MEDS: ALBUMIN HUMAN 25% 12.5 GM/50 ML VIAL IVPB SCH ×4 (11:00→12:30)
[2019-02-28] MEDS: NOREPINEPHRINE BITARTRATE 8,000 MCG in DEXTROSE 5%-WATER - 492 ML IV SCH (12:45)
--- NOTE | 2019-02-28 13:04 | PN ---
Progress Note, Physician History of Present Illness: Pt seen and examined at bedside. He is tolerating HD. He remains in the ICU. - Current Medication List Current Medications: Active Medications Albuterol/Ipratropium (Duoneb -) 1 amp NEB Q6H PRN PRN Reason: SHORTNESS OF BREATH Allopurinol (Zyloprim -) 100 mg PO DAILY [facility] Last Admin: 02/27/19 10:04 Dose: Not Given Amino Acids (Prosource No Carb Liquid Pkt) 30 ml PO TID [facility] Last Admin: 02/28/19 06:47 Dose: Not Given Apixaban (Eliquis -) 2.5 mg PO BID [facility] Last Admin: 02/27/19 21:41 Dose: Not Given Atorvastatin Calcium (Lipitor -) 20 mg PO HS [facility] Last Admin: 02/27/19 21:41 Dose: Not Given Collagenase (Santyl -) 1 applic TP DAILY [facility]; Protocol Last Admin: 02/27/19 09:29 Dose: 1 applic Escitalopram Oxalate (Lexapro -) 10 mg PO DAILY [facility] Last Admin: 02/27/19 10:04 Dose: Not Given Norepinephrine Bitartrate 8, (000 mcg/ Dextrose) 500 mls @ 18.75 mls/hr IV TITR [facility]; Protocol Last Titration: 02/27/19 19:22 Dose: 8 mcg/min, 30 mls/hr Ceftriaxone Sodium 2 gm/ (Dextrose) 100 mls @ 200 mls/hr IVPB DAILY [facility]; Protocol Last Admin: 02/27/19 09:26 Dose: 200 mls/hr Metronidazole (Flagyl 500mg Premixed Ivpb -) 500 mg in 100 mls @ 100 mls/hr IVPB Q8H-IV [facility] Last Admin: 02/28/19 01:50 Dose: 100 mls/hr Insulin Aspart (Novolog Vial Sliding Scale -) 1 vial SQ BIDAC [facility]; Protocol Last Admin: 02/28/19 06:47 Dose: Not Given Lactobacillus Acidophilus (Bacid -) 1 tab PO DAILY [facility] Last Admin: 02/27/19 10:04 Dose: Not Given Midodrine (Proamatine -) 5 mg PO SuTuThSa@1000 [facility] Last Admin: 02/28/19 10:35 Dose: 5 mg Midodrine (Proamatine -) 10 mg PO MoWeFr@1000 [facility] Last Admin: 02/27/19 10:04 Dose: Not Given Morphine Sulfate (Morphine Sulfate) 2 mg IVPUSH Q6H PRN PRN Reason: PAIN LEVEL 6-10 Last Admin: 02/28/19 05:23 Dose: 2 mg Multivitamins/Minerals/Vitamin C (Tab-A-Vit -) 1 tab PO DAILY [facility] Last Admin: 02/27/19 10:04 Dose: Not Given Tamsulosin HCl (Flomax -) 0.4 mg PO HS [facility] Last Admin: 02/27/19 21:41 Dose: Not Given - Objective Vital Signs: Vital Signs Temperature 97.4 F L 02/28/19 08:00 Pulse Rate 86 02/28/19 12:00 Respiratory Rate 15 02/28/19 12:00 Blood Pressure 104/58 L 02/28/19 12:00 O2 Sat by Pulse Oximetry (%) 100 02/28/19 10:00 Constitutional: Yes: Calm Eyes: Yes: Conjunctiva Clear HENT: Yes: Atraumatic Neck: Yes: Supple Cardiovascular: Yes: S1, S2 Respiratory: Yes: On Nasal O2 Gastrointestinal: Yes: Soft Genitourinary: Yes: Incontinence Musculoskeletal: Yes: Muscle Weakness Edema: No Wound/Incision: Yes: Dressing Dry and Intact Neurological: Yes: Confusion Labs: CBC, BMP 02/28/19 05:15 02/28/19 05:15 INR, PTT INR 1.44 (0.83-1.09) H 02/22/19 05:40 Assessment/Plan Current Medications Generic Name Dose Route Start Last Admin Trade Name Freq PRN Reason Stop Dose Admin Albuterol/Ipratropium 1 amp 02/21/19 19:04 Duoneb - NEB Q6H PRN SHORTNESS OF BREATH Allopurinol 100 mg 02/22/19 10:00 02/27/19 10:04 Zyloprim - PO Not Given DAILY [facility] Amino Acids 30 ml 02/21/19 22:00 02/28/19 06:47 Prosource No Carb Liquid Pkt PO Not Given TID [facility] Apixaban 2.5 mg 02/21/19 22:00 02/27/19 21:41 Eliquis - PO Not Given BID [facility] Atorvastatin Calcium 20 mg 02/21/19 22:00 02/27/19 21:41 Lipitor - PO Not Given HS [facility] Collagenase 1 applic 02/22/19 10:00 02/27/19 09:29 Santyl - TP 1 applic DAILY [facility] Administration Protocol Escitalopram Oxalate 10 mg 02/22/19 10:00 02/27/19 10:04 Lexapro - PO Not Given DAILY [facility] Norepinephrine Bitartrate 8, 500 mls @ 18.75 mls/hr 02/23/19 12:45 02/27/19 19:22 000 mcg/ Dextrose IV 8 mcg/min TITR [facility] 30 mls/hr Titration Protocol 5 MCG/MIN Ceftriaxone Sodium 2 gm/ 100 mls @ 200 mls/hr 02/25/19 10:00 02/27/19 09:26 Dextrose IVPB 200 mls/hr DAILY [facility] Administration Protocol Metronidazole 500 mg in 100 mls @ 100 mls/hr 02/24/19 18:00 02/28/19 01:50 Flagyl 500mg Premixed Ivpb - IVPB 100 mls/hr Q8H-IV [facility] Administration Insulin Aspart 1 vial 02/26/19 10:00 02/28/19 06:47 Novolog Vial Sliding Scale - SQ Not Given BIDAC [facility] Protocol Lactobacillus Acidophilus 1 tab 02/22/19 10:00 02/27/19 10:04 Bacid - PO Not Given DAILY [facility] Midodrine 5 mg 02/23/19 10:00 02/28/19 10:35 Proamatine - PO 5 mg [email or web address] CHANTELL Administration Midodrine 10 mg 02/22/19 10:00 02/27/19 10:04 Proamatine - PO Not Given [email or web address] [facility] Morphine Sulfate 2 mg 02/25/19 12:31 02/28/19 05:23 Morphine Sulfate IVPUSH 2 mg Q6H PRN Administration PAIN LEVEL 6-10 Multivitamins/Minerals/Vitamin C 1 tab 02/22/19 10:00 02/27/19 10:04 Tab-A-Vit - PO Not Given DAILY [facility] Tamsulosin HCl 0.4 mg 02/21/19 22:00 02/27/19 21:41 Flomax - PO Not Given HS [facility] Impression 1. ESRD 2. gangrene 3. DM 4. hyperlipidemia 5. HTN 6. gout 7. proteinuria 8. hypotension 9. sepsis Plan - HD today - cont pressors - abx per ID - family still refusing surgical intervention - renal diet
--- NOTE | 2019-02-28 13:35 | PN ---
Physical Exam: SUBJECTIVE: Patient seen and examined at bedside. No overnight events. Levophed attempted to be tapered to 7mcg/hr but patient became hypotensive and thus increased back to 8. OBJECTIVE: Vital Signs Period Temp Pulse Resp BP Sys/Zamorano Pulse Ox Last 24 Hr 97.4 F-98.4 F 75-94 14-21 94-137/35-70 97-100 GENERAL: A&Ox0, no acute distress EYES: PERRLA, EOMI ENT: Dry mucus membranes NECK: No JVD LUNGS: mildly coarse breath sounds, no wheezes HEART: RRR, systolic murmur noted on exam EXTREMITIES: 2+ pulses, no edema. SKIN: bilateral gangrene lower ext down to the tendon on the left with purulent foul smelling discharge. Unstageble sacral ulcer Laboratory Results - last 24 hr 02/27/19 02/27/19 02/28/19 17:04 17:35 05:15 WBC 11.3 H RBC 2.67 L Hgb 7.5 L Hct 24.5 L MCV 92.0 MCH 28.0 MCHC 30.5 L RDW 17.7 H Plt Count 413 MPV 7.8 Absolute Neuts (auto) 8.4 H Neutrophils % 74.4 Lymphocytes % 16.6 Monocytes % 7.6 Eosinophils % 1.0 D Basophils % 0.4 Nucleated RBC % 0 Sodium Potassium Chloride Carbon Dioxide Anion Gap BUN Creatinine Est GFR (CKD-EPI)AfAm Est GFR (CKD-EPI)NonAf POC Glucometer 342 123 Random Glucose Calcium Phosphorus Magnesium Total Bilirubin AST ALT Alkaline Phosphatase Total Protein Albumin Prealbumin 02/28/19 02/28/19 05:15 06:43 WBC RBC Hgb Hct MCV MCH MCHC RDW Plt Count MPV Absolute Neuts (auto) Neutrophils % Lymphocytes % Monocytes % Eosinophils % Basophils % Nucleated RBC % Sodium 137 Potassium 3.6 Chloride 102 Carbon Dioxide 30 Anion Gap 5 L BUN 22 H Creatinine 2.9 H Est GFR (CKD-EPI)AfAm 23.62 Est GFR (CKD-EPI)NonAf 20.38 POC Glucometer 114 Random Glucose 125 H Calcium 7.8 L Phosphorus 3.7 Magnesium 2.0 Total Bilirubin 0.2 AST 5 L ALT < 6 L Alkaline Phosphatase 110 Total Protein 5.5 L Albumin 1.1 L Prealbumin 3.5 L Active Medications Generic Name Dose Route Start Last Admin Trade Name Freq PRN Reason Stop Dose Admin Albuterol/Ipratropium 1 amp 02/21/19 19:04 Duoneb - NEB Q6H PRN SHORTNESS OF BREATH Allopurinol 100 mg 02/22/19 10:00 02/27/19 10:04 Zyloprim - PO Not Given DAILY [facility] Amino Acids 30 ml 02/21/19 22:00 02/28/19 06:47 Prosource No Carb Liquid Pkt PO Not Given TID [facility] Apixaban 2.5 mg 02/21/19 22:00 02/27/19 21:41 Eliquis - PO Not Given BID [facility] Atorvastatin Calcium 20 mg 02/21/19 22:00 02/27/19 21:41 Lipitor - PO Not Given HS [facility] Collagenase 1 applic 02/22/19 10:00 02/27/19 09:29 Santyl - TP 1 applic DAILY [facility] Administration Protocol Escitalopram Oxalate 10 mg 02/22/19 10:00 02/27/19 10:04 Lexapro - PO Not Given DAILY [facility] Norepinephrine Bitartrate 8, 500 mls @ 18.75 mls/hr 02/23/19 12:45 02/27/19 19:22 000 mcg/ Dextrose IV 8 mcg/min TITR [facility] 30 mls/hr Titration Protocol 5 MCG/MIN Ceftriaxone Sodium 2 gm/ 100 mls @ 200 mls/hr 02/25/19 10:00 02/27/19 09:26 Dextrose IVPB 200 mls/hr DAILY [facility] Administration Protocol Metronidazole 500 mg in 100 mls @ 100 mls/hr 02/24/19 18:00 02/28/19 01:50 Flagyl 500mg Premixed Ivpb - IVPB 100 mls/hr Q8H-IV [facility] Administration Insulin Aspart 1 vial 02/26/19 10:00 02/28/19 06:47 Novolog Vial Sliding Scale - SQ Not Given BIDAC [facility] Protocol Lactobacillus Acidophilus 1 tab 02/22/19 10:00 02/27/19 10:04 Bacid - PO Not Given DAILY [facility] Midodrine 5 mg 02/23/19 10:00 02/28/19 10:35 Proamatine - PO 5 mg SuTuThSa@1000 [facility] Administration Midodrine 10 mg 02/22/19 10:00 02/27/19 10:04 Proamatine - PO Not Given MoWeFr@1000 [facility] Morphine Sulfate 2 mg 02/25/19 12:31 02/28/19 05:23 Morphine Sulfate IVPUSH 2 mg Q6H PRN Administration PAIN LEVEL 6-10 Multivitamins/Minerals/Vitamin C 1 tab 02/22/19 10:00 02/27/19 10:04 Tab-A-Vit - PO Not Given DAILY [facility] Tamsulosin HCl 0.4 mg 02/21/19 22:00 02/27/19 21:41 Flomax - PO Not Given HS [facility] ASSESSMENT/PLAN: 73 y/o man with h/o dementia, CVA, DM, COPD, ESRD, gout, HTN, HLP, recent admission 01/31-02/19 during which he was treated for sepsis due to infected b/l feet ulcers/gangrene. He was sent form NH due to poor po intake, and non healing wounds #Septic Shock 2/2 b/l foot gangrene -on ceftriaxone/flagyl day -ID consultation -on levo 8 -CVP low (2) -cannot reach family, called again today for consent for central line replacement however daughter Molly was not available to answer the phone. -ethics and palliative on board for advanced directives. #ESRD on HD (MWF) -nephro following -HD yesterday as per nephro #Acute on chronic anemia likely 2/2 ESRD -monitor H/H #COPD -keep SpO2>90% -Duonebs q6h PRN #Dm ISS BGM ACHS #H/o hypotension : cont home midodrine monitor vitals # h/o afib c/w elequis 2.5 bid #FEN -Not on any standing fluids, will consider giving a small bolus if CVP low -replete lytes prn -tolerating puree diet #Prophylaxis -Eliquis 2.5mg BID #Disposition -continue ICU monitoring, will need discussion with ethics/family Visit type - Emergency Visit Emergency Visit: No - New Patient This patient is new to me today: No - Critical Care Critical Care patient: Yes Total Critical Care Time (in minutes): 36 Critical Care Statement: The care of this patient involved high complexity decision making to prevent further life threatening deterioration of the patient 's condition and/or to evaluate & treat vital organ system(s) failure or risk of failure.
--- NOTE | 2019-02-28 13:57 | PN ---
Teaching Attending Note Name of Resident: Fili Miller ATTENDING PHYSICIAN STATEMENT I saw and evaluated the patient. I reviewed the resident's note and discussed the case with the resident. I agree with the resident's findings and plan as documented. SUBJECTIVE: Patient seen and examined in the ICU. More lethargic today. Poor PO intake. Remains on NE @ 8 mcq for hemodynamic support. Intake & Output 02/25/19 02/26/19 02/27/19 02/28/19 23:59 23:59 23:59 23:59 Intake Total 1170 1569.2 1218.5 500 Output Total 1 0 Balance 1170 1568.2 1218.5 500 Weight 136 lb 1.6 oz 137 lb 11.2 oz 131 lb 3.2 oz 134 lb 12.8 oz Last Vital Signs Temp Pulse Resp BP Pulse Ox 97.4 F L 76 15 137/68 100 02/28/19 08:00 02/28/19 13:00 02/28/19 13:00 02/28/19 13:00 02/28/19 10:00 Active Medications Albuterol/Ipratropium (Duoneb -) 1 amp NEB Q6H PRN PRN Reason: SHORTNESS OF BREATH Allopurinol (Zyloprim -) 100 mg PO DAILY [facility] Last Admin: 02/27/19 10:04 Dose: Not Given Amino Acids (Prosource No Carb Liquid Pkt) 30 ml PO TID [facility] Last Admin: 02/28/19 06:47 Dose: Not Given Apixaban (Eliquis -) 2.5 mg PO BID [facility] Last Admin: 02/27/19 21:41 Dose: Not Given Atorvastatin Calcium (Lipitor -) 20 mg PO HS [facility] Last Admin: 02/27/19 21:41 Dose: Not Given Collagenase (Santyl -) 1 applic TP DAILY [facility]; Protocol Last Admin: 02/27/19 09:29 Dose: 1 applic Escitalopram Oxalate (Lexapro -) 10 mg PO DAILY [facility] Last Admin: 02/27/19 10:04 Dose: Not Given Norepinephrine Bitartrate 8, (000 mcg/ Dextrose) 500 mls @ 18.75 mls/hr IV TITR [facility]; Protocol Last Titration: 02/27/19 19:22 Dose: 8 mcg/min, 30 mls/hr Ceftriaxone Sodium 2 gm/ (Dextrose) 100 mls @ 200 mls/hr IVPB DAILY [facility]; Protocol Last Admin: 02/27/19 09:26 Dose: 200 mls/hr Metronidazole (Flagyl 500mg Premixed Ivpb -) 500 mg in 100 mls @ 100 mls/hr IVPB Q8H-IV [facility] Last Admin: 02/28/19 01:50 Dose: 100 mls/hr Insulin Aspart (Novolog Vial Sliding Scale -) 1 vial SQ BIDAC [facility]; Protocol Last Admin: 02/28/19 06:47 Dose: Not Given Lactobacillus Acidophilus (Bacid -) 1 tab PO DAILY [facility] Last Admin: 02/27/19 10:04 Dose: Not Given Midodrine (Proamatine -) 5 mg PO SuTuThSa@1000 [facility] Last Admin: 02/28/19 10:35 Dose: 5 mg Midodrine (Proamatine -) 10 mg PO MoWeFr@1000 [facility] Last Admin: 02/27/19 10:04 Dose: Not Given Morphine Sulfate (Morphine Sulfate) 2 mg IVPUSH Q6H PRN PRN Reason: PAIN LEVEL 6-10 Last Admin: 02/28/19 05:23 Dose: 2 mg Multivitamins/Minerals/Vitamin C (Tab-A-Vit -) 1 tab PO DAILY [facility] Last Admin: 02/27/19 10:04 Dose: Not Given Tamsulosin HCl (Flomax -) 0.4 mg PO [facility] Last Admin: 02/27/19 21:41 Dose: Not Given Constitutional: Yes: Lethargic but arousable, not following commands Eyes: Yes: Conjunctiva Clear HENT: Yes: Atraumatic, Normocephalic Neck: Yes: Supple Cardiovascular: Yes: Regular Rate and Rhythm, Other (permacath site no erythema , no drainage) Respiratory: Yes: bilateral rhonchi Gastrointestinal: Yes: Normal Bowel Sounds, Soft Extremities: Yes: Other (contracted, foul smelling gangrenous wounds both feet) Edema: Yes Edema: No Labs: Laboratory Results - last 24 hr 02/27/19 02/27/19 02/28/19 17:04 17:35 05:15 WBC 11.3 H RBC 2.67 L Hgb 7.5 L Hct 24.5 L MCV 92.0 MCH 28.0 MCHC 30.5 L RDW 17.7 H Plt Count 413 MPV 7.8 Absolute Neuts (auto) 8.4 H Neutrophils % 74.4 Lymphocytes % 16.6 Monocytes % 7.6 Eosinophils % 1.0 D Basophils % 0.4 Nucleated RBC % 0 Sodium Potassium Chloride Carbon Dioxide Anion Gap BUN Creatinine Est GFR (CKD-EPI)AfAm Est GFR (CKD-EPI)NonAf POC Glucometer 342 123 Random Glucose Calcium Phosphorus Magnesium Total Bilirubin AST ALT Alkaline Phosphatase Total Protein Albumin Prealbumin 02/28/19 02/28/19 05:15 06:43 WBC RBC Hgb Hct MCV MCH MCHC RDW Plt Count MPV Absolute Neuts (auto) Neutrophils % Lymphocytes % Monocytes % Eosinophils % Basophils % Nucleated RBC % Sodium 137 Potassium 3.6 Chloride 102 Carbon Dioxide 30 Anion Gap 5 L BUN 22 H Creatinine 2.9 H Est GFR (CKD-EPI)AfAm 23.62 Est GFR (CKD-EPI)NonAf 20.38 POC Glucometer 114 Random Glucose 125 H Calcium 7.8 L Phosphorus 3.7 Magnesium 2.0 Total Bilirubin 0.2 AST 5 L ALT < 6 L Alkaline Phosphatase 110 Total Protein 5.5 L Albumin 1.1 L Prealbumin 3.5 L Problem List - Problems (1) Gram negative sepsis Code(s): A41.50 - GRAM-NEGATIVE SEPSIS, UNSPECIFIED (2) Gangrene of both feet Code(s): I96 - GANGRENE, NOT ELSEWHERE CLASSIFIED (3) ESRD (end stage renal disease) on dialysis Code(s): N18.6 - END STAGE RENAL DISEASE; Z99.2 - DEPENDENCE ON RENAL DIALYSIS (4) MRSA (methicillin resistant 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 coli carrier Code(s): Z22.39 - CARRIER OF OTHER SPECIFIED BACTERIAL DISEASES (6) VRE (vancomycin-resistant Enterococci) Code(s): A49.1 - STREPTOCOCCAL INFECTION, UNSPECIFIED SITE; Z16.21 - RESISTANCE TO VANCOMYCIN Assessment/Plan Gm negative septic shock likely from soft tissue infection Toxic metabolic encephalopathy Pressors to maintain MAP > 65 ABX per ID O2 as needed HD per Renal Aspiration precautions Local wound care per surgery Ethics meeting called to address family's lack of insight and seemingly inappropriateness of medical decision making Dr Palmer Critical care time spent in reviewing chart, evaluating patient and formulating plan - 36 minutes.
[2019-02-28] MEDS: APIXABAN 2.5 MG TABLET PO SCH ×2 (15:02→21:47)
--- NOTE | 2019-02-28 15:24 | PN ---
Progress Note, ANIMAL RIDE ATTENDANT - Note Progress Note: Selected Entries 02/27/19 02/27/19 02/27/19 15:00 18:49 21:00 Diet Tolerated Refused Intake, Oral 30 0 Amount Temperature 02/27/19 02/28/19 02/28/19 22:27 06:00 08:00 Diet Tolerated Refused Intake, Oral 0 Amount Temperature 98.2 F 97.4 F L 02/28/19 02/28/19 10:00 14:00 Diet Tolerated Intake, Oral Amount Temperature 97.8 F 98.2 F Laboratory Tests 02/27/19 02/28/19 05:30 05:15 WBC 11.0 H 11.3 H Tolerated PO trials than he accepted. More lethargic today. Poor PO intake. NGT placed
[2019-02-28] MEDS: CEFTRIAXONE 2 GM in DEXTROSE 5%-WATER 100 ML IVPB SCH (15:56)
[2019-02-28] MEDS: COLLAGENASE CLOSTRIDIUM HIST. 30 GRAMS TUBE TP SCH (18:00)
[2019-02-28] MEDS: ALLOPURINOL 100 MG TABLET (FP) PO SCH (18:32)
[2019-02-28] MEDS: LACTOBACILLUS ACIDOPHILUS 1 TABLET PO SCH (18:33)
[2019-02-28] MEDS: ESCITALOPRAM OXALATE 10 MG TABLET (FP) PO SCH (18:33)
[2019-02-28] MEDS: MULTIVITAMINS (DAILY MVI) TABLET (FP) PO SCH (18:33)
--- NOTE | 2019-02-28 19:47 | PN ---
Teaching Attending Note Name of Resident: Mathew Adorno ATTENDING PHYSICIAN STATEMENT I saw and evaluated the patient. I reviewed the resident's note and discussed the case with the resident. I agree with the resident's findings and plan as documented. SUBJECTIVE: Patient continues to be septic on IV pressor in ICU. OBJECTIVE: Vital Signs Temperature 98 F 02/28/19 18:00 Pulse Rate 88 02/28/19 18:00 Respiratory Rate 14 02/28/19 18:00 Blood Pressure 118/65 02/28/19 18:00 O2 Sat by Pulse Oximetry (%) 100 02/28/19 10:00 GENERAL: A&Ox0, no acute distress EYES: PERRLA, EOMI ENT: Dry mucus membranes, NECK: No JVD LUNGS: mildly coarse breath sounds, no wheezes HEART: RRR, systolic murmur noted on exam EXTREMITIES: 2+ pulses, no edema. contracted lower extremities. SKIN: bilateral gangrene lower ext down to the tendon on the left with purulent foul smelling discharge. Sacrum: Unstageble sacral ulcer CBCD WBC 11.3 K/mm3 (4.0-10.0) H 02/28/19 05:15 RBC 2.67 M/mm3 (4.00-5.60) L 02/28/19 05:15 Hgb 7.5 GM/dL (11.7-16.9) L 02/28/19 05:15 Hct 24.5 % (35.4-49) L 02/28/19 05:15 MCV 92.0 fl (80-96) 02/28/19 05:15 MCHC 30.5 g/dl (32.0-35.9) L 02/28/19 05:15 RDW 17.7 % (11.9-15.9) H 02/28/19 05:15 Plt Count 413 K/MM3 (134-434) 02/28/19 05:15 MPV 7.8 fl (7.5-11.1) 02/28/19 05:15 CMP Sodium 137 mmol/L (136-145) 02/28/19 05:15 Potassium 3.6 mmol/L (3.5-5.1) 02/28/19 05:15 Chloride 102 mmol/L (98-107) 02/28/19 05:15 Carbon Dioxide 30 mmol/L (21-32) 02/28/19 05:15 Anion Gap 5 MMOL/L (8-16) L 02/28/19 05:15 BUN 22 mg/dL (7-18) H 02/28/19 05:15 Creatinine 2.9 mg/dL (0.55-1.3) H 02/28/19 05:15 Random Glucose 125 mg/dL (74-106) H 02/28/19 05:15 Calcium 7.8 mg/dL (8.5-10.1) L 02/28/19 05:15 Total Bilirubin 0.2 mg/dL (0.2-1) 02/28/19 05:15 AST 5 U/L (15-37) L 02/28/19 05:15 ALT < 6 U/L (13-61) L 02/28/19 05:15 Alkaline Phosphatase 110 U/L (45-117) 02/28/19 05:15 Total Protein 5.5 g/dl (6.4-8.2) L 02/28/19 05:15 Albumin 1.1 g/dl (3.4-5.0) L 02/28/19 05:15 CARDIAC ENZYMES Troponin I < 0.02 ng/ml (0.00-0.05) 02/21/19 15:10 Current Medications Generic Name Dose Route Start Last Admin Trade Name Freq PRN Reason Stop Dose Admin Albuterol/Ipratropium 1 amp 02/21/19 19:04 Duoneb - NEB Q6H PRN SHORTNESS OF BREATH Allopurinol 100 mg 02/22/19 10:00 02/28/19 18:32 Zyloprim - PO 100 mg DAILY [facility] Administration Amino Acids 30 ml 02/21/19 22:00 02/28/19 14:55 Prosource No Carb Liquid Pkt PO Not Given TID [facility] Apixaban 2.5 mg 02/21/19 22:00 02/28/19 15:02 Eliquis - PO Not Given BID [facility] Atorvastatin Calcium 20 mg 02/21/19 22:00 02/27/19 21:41 Lipitor - PO Not Given HS [facility] Collagenase 1 applic 02/22/19 10:00 02/28/19 18:00 Santyl - TP 1 applic DAILY [facility] Administration Protocol Escitalopram Oxalate 10 mg 02/22/19 10:00 02/28/19 18:33 Lexapro - PO 10 mg DAILY [facility] Administration Norepinephrine Bitartrate 8, 500 mls @ 18.75 mls/hr 02/23/19 12:45 02/28/19 12:45 000 mcg/ Dextrose IV Not Given TITR [facility] Protocol 5 MCG/MIN Ceftriaxone Sodium 2 gm/ 100 mls @ 200 mls/hr 02/25/19 10:00 02/28/19 15:56 Dextrose IVPB 200 mls/hr DAILY [facility] Administration Protocol Metronidazole 500 mg in 100 mls @ 100 mls/hr 02/24/19 18:00 02/28/19 18:40 Flagyl 500mg Premixed Ivpb - IVPB 100 mls/hr Q8H-IV [facility] Administration Insulin Aspart 1 vial 02/26/19 10:00 02/28/19 18:00 Novolog Vial Sliding Scale - SQ Not Given BIDAC [facility] Protocol Lactobacillus Acidophilus 1 tab 02/22/19 10:00 02/28/19 18:33 Bacid - PO 1 tab DAILY [facility] Administration Midodrine 5 mg 02/23/19 10:00 02/28/19 10:35 Proamatine - PO 5 mg SuTuThSa@1000 [facility] Administration Midodrine 10 mg 02/22/19 10:00 02/27/19 10:04 Proamatine - PO Not Given MoWeFr@1000 [facility] Morphine Sulfate 2 mg 02/25/19 12:31 02/28/19 16:17 Morphine Sulfate IVPUSH 2 mg Q6H PRN Administration PAIN LEVEL 6-10 Multivitamins/Minerals/Vitamin C 1 tab 02/22/19 10:00 02/28/19 18:33 Tab-A-Vit - PO 1 tab DAILY [facility] Administration Tamsulosin HCl 0.4 mg 02/21/19 22:00 02/27/19 21:41 Flomax - PO Not Given HS [facility] Home Medications Medication Instructions Recorded Albuterol 2.5/Ipratropium 0.5 1 amp NEB Q6H PRN #0 amp 07/12/17 [Duoneb -] Allopurinol [Zyloprim -] 100 mg PO DAILY tablet 07/12/17 Atorvastatin Ca [Lipitor] 20 mg PO HS tablet 07/12/17 Collagenase Clostridium Hist. 1 applic TP DAILY tube 09/06/18 [Santyl -] Albuterol Sulfate [Proair Hfa] 2 puff IH Q6H PRN 10/29/18 Escitalopram Oxalate [Lexapro -] 10 mg PO DAILY 10/29/18 Folic Acid/Vit B Complex and C 1 each PO DAILY 10/29/18 [Dialyvite Tablet] Midodrine HCl 10 mg PO MOWEFR 10/29/18 Sevelamer Carbonate [Renvela -] 1,600 mg PO TID 10/29/18 Tamsulosin HCl [Flomax] 0.4 mg PO HS 10/29/18 Insulin Sliding Scale [Novolog 1 vial SQ TIDAC #1 vial 11/17/18 Vial Sliding Scale -] Apixaban [Eliquis -] 5 mg PO BID #30 tablet MDD 2 11/19/18 Collagenase Clostridium Hist. 1 applic TP DAILY #1 tube 01/17/19 [Santyl -] Amoxicillin/Potassium Clav 1 each PO DAILY #7 tablet 02/06/19 [Augmentin 500-125 Tablet] Megestrol Acetate Oral Susp 400 mg PO DAILY #20 cup 02/06/19 [Megace Liquid -] Protein Supplement [Prosource] 275 gm PO TID #60 powder 02/06/19 Lactobacillus Acidophilus [Bacid -] 1 tab PO DAILY #60 tab 02/19/19 Midodrine HCl [Proamatine -] 5 mg PO SuTuThSa #60 tablet 02/19/19 traMADol HCL [Ultram -] 50 mg PO Q6H PRN #60 tablet MDD 4 02/19/19 Microbiology 02/23/19 11:50 Blood - Peripheral Venous Blood Culture - Final NO GROWTH AFTER 5 DAYS INCUBATION 02/23/19 11:50 Blood - Peripheral Venous Blood Culture - Final NO GROWTH AFTER 5 DAYS INCUBATION 02/21/19 13:16 Blood - Peripheral Venous Blood Culture - Final Proteus Mirabilis Prevotella Melaninogenica 02/21/19 16:30 Foot - Left Heel Gram Stain - Final 02/21/19 16:30 Foot - Left Heel Wound Culture - Final Escherichia Coli Esbl Grain Blender Morganella Morganii 02/21/19 15:40 Blood - Peripheral Venous Blood Culture - Final Proteus Mirabilis 02/21/19 14:50 Urine - Urine - Catheterized Urine Culture - Final NO GROWTH OBTAINED ASSESSMENT AND PLAN: Patient is a 73 y/o male with PMHx of dementia, CVA, DM, COPD, ESRD, gout, HTN, HLP, recent admission 01/31-02/19 during which he was treated for sepsis due to infected b/l LEs gangrenous ulcers. He was sent from [place] due to poor po intake, and non healing wounds # Gangrenous b/l LEs. with septic shock . on IV pressors Levophed on taper continues , continue IV antibiotics Rocephin/flagyl, Vascular surgeon on the case, patient needs amputaion of lower extremities but unable to reach the family. # Septic shock due to bacteremia to Proteus Morganii continue IV antibiotics and pressors # Infected sacral decub and scrotal ulcer continue IV antibiotics # ESRD on HD , nephro on the case # DM with sliding scale with coverage # hypophosphatemia repleted # hypokalemia repleted Case d/w dr. Khan. No response from the daughter or any other family members , ethics on the case.
[2019-02-28] MEDS: ATORVASTATIN CA 20 MG TABLET (FP) PO SCH (21:47)
[2019-02-28] MEDS: TAMSULOSIN HCL 0.4 MG CAP PO SCH (21:47)
[2019-02-28] MEDS ORDERED: morphine SULFATE 4 MG/ML VIAL IVPUSH ONE (23:53)
[2019-03-01 05:54] LABS: BASO % 0.3 % (0-2.0); EOS % 0.3 % (0-4.5); HEMATOCRIT 25.6 % (35.4-49); LYMPH % 18.1 % (8-40); MCH 28.5 pg (25.7-33.7); MCHC 31.2 g/dl (32.0-35.9); MEAN CELL VOLUME 91.3 fl (80-96); MEAN PLT VOLUME 7.6 fl (7.5-11.1); MONO % 7.2 % (3.8-10.2); NEUT % 74.1 % (42.8-82.8); PLATELET COUNT 369 K/MM3 (134-434); RBC 2.81 M/mm3 (4.00-5.60); RDW 18.2 % (11.9-15.9); WHITE BLOOD COUNT 10.8 K/mm3 (4.0-10.0)
[2019-03-01] MEDS: AMINO ACIDS/PROTEIN HYDROLYS 30 ML LIQUID.PKT PO SCH ×3 (05:58→21:34)
[2019-03-01] MEDS: INSULIN SLIDING SCALE (NOVOLOG) 1 VIAL SQ SCH ×2 (05:59→17:03)
[2019-03-01 06:20] LABS: ALBUMIN 1.3 g/dl (3.4-5.0); ALK PHOS 114 U/L (45-117); ANION GAP 5 MMOL/L (8-16); BILIRUBIN,TOTAL 0.3 mg/dL (0.2-1); BLOOD UREA NITROGEN 8 mg/dL (7-18); CALCIUM 7.7 mg/dL (8.5-10.1); CHLORIDE 100 mmol/L (98-107); CO2 32 mmol/L (21-32); CREATININE 1.8 mg/dL (0.55-1.3); GLUCOSE,RANDOM 95 mg/dL (74-106); MAGNESIUM 1.6 mg/dL (1.8-2.4); PHOSPHOROUS 1.9 mg/dL (2.5-4.9); POTASSIUM 3.7 mmol/L (3.5-5.1); SGOT/AST 6 U/L (15-37); SGPT/ALT < 6 U/L (13-61); SODIUM 138 mmol/L (136-145); TOT PROT 5.6 g/dl (6.4-8.2)
[2019-03-01] MEDS ORDERED: NAPH,MB-DB/K PH,MBDB POWDER PACKET GT ONE (06:45)
[2019-03-01] MEDS ORDERED: MAGNESIUM 2GM/50ML STERILE WATER IVPB IVPB ONE (07:00)
[2019-03-01] MEDS: MORPHINE SULFATE 2 MG/ML VIAL IVPUSH PRN ×2 (08:26→16:46)
[2019-03-01] MEDS ORDERED: DEXTROSE 5%-WATER 100 ML IVPB ONE (09:10)
[2019-03-01] MEDS: LACTOBACILLUS ACIDOPHILUS 1 TABLET PO SCH (10:29)
[2019-03-01] MEDS: APIXABAN 2.5 MG TABLET PO SCH ×2 (10:29→21:33)
[2019-03-01] MEDS: MULTIVITAMINS (DAILY MVI) TABLET (FP) PO SCH (10:29)
[2019-03-01] MEDS: ALLOPURINOL 100 MG TABLET (FP) PO SCH (10:29)
[2019-03-01] MEDS: ESCITALOPRAM OXALATE 10 MG TABLET (FP) PO SCH (10:29)
[2019-03-01] MEDS: MIDODRINE HCL 5 MG TABLET PO SCH (10:30)
[2019-03-01] MEDS: CEFTRIAXONE 2 GM in DEXTROSE 5%-WATER 100 ML IVPB SCH (10:30)
[2019-03-01] MEDS: COLLAGENASE CLOSTRIDIUM HIST. 30 GRAMS TUBE TP SCH (10:51)
--- NOTE | 2019-03-01 12:08 | PN ---
Progress Note, Physician History of Present Illness: Pt seen and examined at bedside. No great change. He remains hypotensive. - Current Medication List Current Medications: Active Medications Albuterol/Ipratropium (Duoneb -) 1 amp NEB Q6H PRN PRN Reason: SHORTNESS OF BREATH Allopurinol (Zyloprim -) 100 mg PO DAILY [facility] Last Admin: 03/01/19 10:29 Dose: 100 mg Amino Acids (Prosource No Carb Liquid Pkt) 30 ml PO TID [facility] Last Admin: 03/01/19 05:58 Dose: 30 ml Apixaban (Eliquis -) 2.5 mg PO BID [facility] Last Admin: 03/01/19 10:29 Dose: 2.5 mg Atorvastatin Calcium (Lipitor -) 20 mg PO HS [facility] Last Admin: 02/28/19 21:47 Dose: 20 mg Collagenase (Santyl -) 1 applic TP DAILY [facility]; Protocol Last Admin: 03/01/19 10:51 Dose: 1 applic Escitalopram Oxalate (Lexapro -) 10 mg PO DAILY [facility] Last Admin: 03/01/19 10:29 Dose: 10 mg Norepinephrine Bitartrate 8, (000 mcg/ Dextrose) 500 mls @ 18.75 mls/hr IV TITR [facility]; Protocol Last Titration: 03/01/19 11:54 Dose: 4 mcg/min, 15 mls/hr Ceftriaxone Sodium 2 gm/ (Dextrose) 100 mls @ 200 mls/hr IVPB DAILY [facility]; Protocol Last Admin: 03/01/19 10:30 Dose: 200 mls/hr Metronidazole (Flagyl 500mg Premixed Ivpb -) 500 mg in 100 mls @ 100 mls/hr IVPB Q8H-IV [facility] Last Admin: 03/01/19 10:30 Dose: 100 mls/hr Insulin Aspart (Novolog Vial Sliding Scale -) 1 vial SQ BIDAC [facility]; Protocol Last Admin: 03/01/19 05:59 Dose: Not Given Lactobacillus Acidophilus (Bacid -) 1 tab PO DAILY [facility] Last Admin: 03/01/19 10:29 Dose: 1 tab Midodrine (Proamatine -) 5 mg PO SuTuThSa@1000 [facility] Last Admin: 02/28/19 10:35 Dose: 5 mg Midodrine (Proamatine -) 10 mg PO MoWeFr@1000 [facility] Last Admin: 03/01/19 10:30 Dose: 10 mg Morphine Sulfate (Morphine Sulfate) 2 mg IVPUSH Q4H PRN PRN Reason: PAIN LEVEL 6-10 Last Admin: 03/01/19 08:26 Dose: 2 mg Multivitamins/Minerals/Vitamin C (Tab-A-Vit -) 1 tab PO DAILY [facility] Last Admin: 03/01/19 10:29 Dose: 1 tab Tamsulosin HCl (Flomax -) 0.4 mg PO HS [facility] Last Admin: 02/28/19 21:47 Dose: 0.4 mg - Objective Vital Signs: Vital Signs Temperature 97.6 F 03/01/19 08:00 Pulse Rate 86 03/01/19 11:54 Respiratory Rate 18 03/01/19 10:00 Blood Pressure 128/56 L 03/01/19 11:54 O2 Sat by Pulse Oximetry (%) 96 03/01/19 09:00 Constitutional: Yes: Calm Eyes: Yes: Conjunctiva Clear HENT: Yes: Atraumatic Neck: Yes: Supple Cardiovascular: Yes: S1, S2 Respiratory: Yes: On Nasal O2 Gastrointestinal: Yes: Soft Genitourinary: Yes: Incontinence Musculoskeletal: Yes: Muscle Weakness Edema: No Wound/Incision: Yes: Dressing Dry and Intact Neurological: Yes: Confusion Labs: CBC, BMP 03/01/19 05:30 03/01/19 05:30 INR, PTT INR 1.44 (0.83-1.09) H 02/22/19 05:40 Assessment/Plan Current Medications Generic Name Dose Route Start Last Admin Trade Name Freq PRN Reason Stop Dose Admin Albuterol/Ipratropium 1 amp 02/21/19 19:04 Duoneb - NEB Q6H PRN SHORTNESS OF BREATH Allopurinol 100 mg 02/22/19 10:00 03/01/19 10:29 Zyloprim - PO 100 mg DAILY [facility] Administration Amino Acids 30 ml 02/21/19 22:00 03/01/19 05:58 Prosource No Carb Liquid Pkt PO 30 ml TID [facility] Administration Apixaban 2.5 mg 02/21/19 22:00 03/01/19 10:29 Eliquis - PO 2.5 mg BID [facility] Administration Atorvastatin Calcium 20 mg 02/21/19 22:00 02/28/19 21:47 Lipitor - PO 20 mg HS [facility] Administration Collagenase 1 applic 02/22/19 10:00 03/01/19 10:51 Santyl - TP 1 applic DAILY [facility] Administration Protocol Escitalopram Oxalate 10 mg 02/22/19 10:00 03/01/19 10:29 Lexapro - PO 10 mg DAILY [facility] Administration Norepinephrine Bitartrate 8, 500 mls @ 18.75 mls/hr 02/23/19 12:45 03/01/19 11:54 000 mcg/ Dextrose IV 4 mcg/min TITR [facility] 15 mls/hr Titration Protocol 5 MCG/MIN Ceftriaxone Sodium 2 gm/ 100 mls @ 200 mls/hr 02/25/19 10:00 03/01/19 10:30 Dextrose IVPB 200 mls/hr DAILY [facility] Administration Protocol Metronidazole 500 mg in 100 mls @ 100 mls/hr 02/24/19 18:00 03/01/19 10:30 Flagyl 500mg Premixed Ivpb - IVPB 100 mls/hr Q8H-IV [facility] Administration Insulin Aspart 1 vial 02/26/19 10:00 03/01/19 05:59 Novolog Vial Sliding Scale - SQ Not Given BIDAC [facility] Protocol Lactobacillus Acidophilus 1 tab 02/22/19 10:00 03/01/19 10:29 Bacid - PO 1 tab DAILY [facility] Administration Midodrine 5 mg 02/23/19 10:00 02/28/19 10:35 Proamatine - PO 5 mg SuTuThSa@1000 [facility]ANTELL Administration Midodrine 10 mg 02/22/19 10:00 03/01/19 10:30 Proamatine - PO 10 mg [email or web address] CHANTELL Administration Morphine Sulfate 2 mg 02/28/19 22:48 03/01/19 08:26 Morphine Sulfate IVPUSH 2 mg Q4H PRN Administration PAIN LEVEL 6-10 Multivitamins/Minerals/Vitamin C 1 tab 02/22/19 10:00 03/01/19 10:29 Tab-A-Vit - PO 1 tab DAILY CHANTELL Administration Tamsulosin HCl 0.4 mg 02/21/19 22:00 02/28/19 21:47 Flomax - PO 0.4 mg HS CHANTELL Administration Impression 1. ESRD 2. gangrene 3. DM 4. hyperlipidemia 5. HTN 6. gout 7. proteinuria 8. hypotension 9. sepsis Plan - HD tomorrow - cont pressors to a map of 65 - cont abx - family still refusing surgical intervention - renal diet
--- NOTE | 2019-03-01 12:30 | PN ---
Teaching Attending Note Name of Resident: Gualberto Eagle ATTENDING PHYSICIAN STATEMENT I saw and evaluated the patient. I reviewed the resident's note and discussed the case with the resident. I agree with the resident's findings and plan as documented. SUBJECTIVE: Patient seen and examined in the ICU. Remains lethargic but arousble. NGT inserted due to poor PO intake. Remains on NE @ 6 mcq for hemodynamic support. Still unable to contact family for days. Intake & Output 02/26/19 02/27/19 02/28/19 03/01/19 23:59 23:59 23:59 23:59 Intake Total 1569.2 1218.5 1350 850 Output Total 1 0 0 0 Balance 1568.2 1218.5 1350 850 Weight 137 lb 11.2 oz 131 lb 3.2 oz 134 lb 12.8 oz 134 lb 6.4 oz Last Vital Signs Temp Pulse Resp BP Pulse Ox 97.6 F 87 13 127/49 L 96 03/01/19 08:00 03/01/19 12:00 03/01/19 12:00 03/01/19 12:00 03/01/19 09:00 Active Medications Albuterol/Ipratropium (Duoneb -) 1 amp NEB Q6H PRN PRN Reason: SHORTNESS OF BREATH Allopurinol (Zyloprim -) 100 mg PO DAILY [facility] Last Admin: 03/01/19 10:29 Dose: 100 mg Amino Acids (Prosource No Carb Liquid Pkt) 30 ml PO TID [facility] Last Admin: 03/01/19 05:58 Dose: 30 ml Apixaban (Eliquis -) 2.5 mg PO BID [facility] Last Admin: 03/01/19 10:29 Dose: 2.5 mg Atorvastatin Calcium (Lipitor -) 20 mg PO HS [facility] Last Admin: 02/28/19 21:47 Dose: 20 mg Collagenase (Santyl -) 1 applic TP DAILY [facility]; Protocol Last Admin: 03/01/19 10:51 Dose: 1 applic Epoetin Jose (Epogen -) 10,000 unit IVPUSH ONCE ONE Stop: 03/02/19 12:09 Escitalopram Oxalate (Lexapro -) 10 mg PO DAILY [facility] Last Admin: 03/01/19 10:29 Dose: 10 mg Norepinephrine Bitartrate 8, (000 mcg/ Dextrose) 500 mls @ 18.75 mls/hr IV TITR [facility]; Protocol Last Titration: 03/01/19 11:54 Dose: 4 mcg/min, 15 mls/hr Ceftriaxone Sodium 2 gm/ (Dextrose) 100 mls @ 200 mls/hr IVPB DAILY [facility]; Protocol Last Admin: 03/01/19 10:30 Dose: 200 mls/hr Metronidazole (Flagyl 500mg Premixed Ivpb -) 500 mg in 100 mls @ 100 mls/hr IVPB Q8H-IV [facility] Last Admin: 03/01/19 10:30 Dose: 100 mls/hr Sodium Chloride (Normal Saline -) 250 mls @ 3,000 mls/hr IV PRN PRN PRN Reason: Hypotension during Dialysis Stop: 03/02/19 12:08 Insulin Aspart (Novolog Vial Sliding Scale -) 1 vial SQ BIDAC [facility]; Protocol Last Admin: 03/01/19 05:59 Dose: Not Given Lactobacillus Acidophilus (Bacid -) 1 tab PO DAILY [facility] Last Admin: 03/01/19 10:29 Dose: 1 tab Midodrine (Proamatine -) 5 mg PO SuTuThSa@1000 [facility] Last Admin: 02/28/19 10:35 Dose: 5 mg Midodrine (Proamatine -) 10 mg PO MoWeFr@1000 [facility] Last Admin: 03/01/19 10:30 Dose: 10 mg Morphine Sulfate (Morphine Sulfate) 2 mg IVPUSH Q4H PRN PRN Reason: PAIN LEVEL 6-10 Last Admin: 03/01/19 08:26 Dose: 2 mg Multivitamins/Minerals/Vitamin C (Tab-A-Vit -) 1 tab PO DAILY [facility] Last Admin: 03/01/19 10:29 Dose: 1 tab Tamsulosin HCl (Flomax -) 0.4 mg PO HS [facility] Last Admin: 02/28/19 21:47 Dose: 0.4 mg Constitutional: Yes: Lethargic but arousable, not following commands Eyes: Yes: Conjunctiva Clear HENT: Yes: Atraumatic, Normocephalic Neck: Yes: Supple Cardiovascular: Yes: Regular Rate and Rhythm, Other (permacath site no erythema , no drainage) Respiratory: Yes: bilateral rhonchi Gastrointestinal: Yes: Normal Bowel Sounds, Soft Extremities: Yes: Other (contracted, foul smelling gangrenous wounds both feet) Edema: Yes Edema: No Labs: Laboratory Results - last 24 hr 02/28/19 03/01/19 03/01/19 18:37 05:26 05:30 WBC 10.8 H RBC 2.81 L Hgb 8.0 L Hct 25.6 L MCV 91.3 MCH 28.5 MCHC 31.2 L RDW 18.2 H Plt Count 369 MPV 7.6 Absolute Neuts (auto) 8.0 Neutrophils % 74.1 Lymphocytes % 18.1 Monocytes % 7.2 Eosinophils % 0.3 Basophils % 0.3 Nucleated RBC % 0 Sodium Potassium Chloride Carbon Dioxide Anion Gap BUN Creatinine Est GFR (CKD-EPI)AfAm Est GFR (CKD-EPI)NonAf POC Glucometer 100 82 Random Glucose Calcium Phosphorus Magnesium Total Bilirubin AST ALT Alkaline Phosphatase Total Protein Albumin 03/01/19 05:30 WBC RBC Hgb Hct MCV MCH MCHC RDW Plt Count MPV Absolute Neuts (auto) Neutrophils % Lymphocytes % Monocytes % Eosinophils % Basophils % Nucleated RBC % Sodium 138 Potassium 3.7 Chloride 100 Carbon Dioxide 32 Anion Gap 5 L BUN 8 Creatinine 1.8 H Est GFR (CKD-EPI)AfAm 42.03 Est GFR (CKD-EPI)NonAf 36.27 POC Glucometer Random Glucose 95 Calcium 7.7 L Phosphorus 1.9 L Magnesium 1.6 L Total Bilirubin 0.3 AST 6 L ALT < 6 L Alkaline Phosphatase 114 Total Protein 5.6 L Albumin 1.3 L Problem List - Problems (1) Gram negative sepsis Code(s): A41.50 - GRAM-NEGATIVE SEPSIS, UNSPECIFIED (2) Gangrene of both feet Code(s): I96 - GANGRENE, NOT ELSEWHERE CLASSIFIED (3) ESRD (end stage renal disease) on dialysis Code(s): N18.6 - END STAGE RENAL DISEASE; Z99.2 - DEPENDENCE ON RENAL DIALYSIS (4) MRSA (methicillin resistant 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 coli carrier Code(s): Z22.39 - CARRIER OF OTHER SPECIFIED BACTERIAL DISEASES (6) VRE (vancomycin-resistant Enterococci) Code(s): A49.1 - STREPTOCOCCAL INFECTION, UNSPECIFIED SITE; Z16.21 - RESISTANCE TO VANCOMYCIN Assessment/Plan Gm negative septic shock likely from soft tissue infection Toxic metabolic encephalopathy Pressors to maintain MAP > 60 to 65 ABX per ID O2 as needed HD per Renal Aspiration precautions Local wound care per surgery Ethics meeting called to address family's lack of insight and seemingly inappropriateness of medical decision making Dr Palmer Critical care time spent in reviewing chart, evaluating patient and formulating plan - 36 minutes.
--- NOTE | 2019-03-01 12:38 | PN ---
Progress Note (short form) - Note Progress Note: awake, remains on pressors- being tapered slowly now with feeding tube alert, conversant afebrile Vital Signs Period Temp Pulse Resp BP Sys/Zamorano Pulse Ox Last 24 Hr 97.6 F-98.2 F 76-90 13-18 102-139/49-78 96-100 cor-rrr lungs decreased bs at bases abd soft,nt ext contracted CBC, BMP 03/01/19 05:30 03/01/19 05:30 Microbiology 02/23/19 11:50 Blood - Peripheral Venous Blood Culture - Final NO GROWTH AFTER 5 DAYS INCUBATION 02/23/19 11:50 Blood - Peripheral Venous Blood Culture - Final NO GROWTH AFTER 5 DAYS INCUBATION 02/21/19 13:16 Blood - Peripheral Venous Blood Culture - Final Proteus Mirabilis Prevotella Melaninogenica 02/21/19 16:30 Foot - Left Heel Gram Stain - Final 02/21/19 16:30 Foot - Left Heel Wound Culture - Final Escherichia Coli Esbl [employer] Electrical Morganella Morganii 02/21/19 15:40 Blood - Peripheral Venous Blood Culture - Final Proteus Mirabilis 02/21/19 14:50 Urine - Urine - Catheterized Urine Culture - Final NO GROWTH OBTAINED a/p polymicrobial gram negative sepsis-proteus and prevotella suspected secondary to gangrenous legs esrd/hd continue ceftriaxone/flagyl day #7 antibiotics overall prognosis is poor medical team attempting to reach family-so far unsuccessful Problem List - Problems (1) Gram negative sepsis Code(s): A41.50 - GRAM-NEGATIVE SEPSIS, UNSPECIFIED (2) Gangrene of both feet Code(s): I96 - GANGRENE, NOT ELSEWHERE CLASSIFIED (3) ESRD (end stage renal disease) on dialysis Code(s): N18.6 - END STAGE RENAL DISEASE; Z99.2 - DEPENDENCE ON RENAL DIALYSIS (4) MRSA (methicillin resistant 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 coli carrier Code(s): Z22.39 - CARRIER OF OTHER SPECIFIED BACTERIAL DISEASES (6) VRE (vancomycin-resistant Enterococci) Code(s): A49.1 - STREPTOCOCCAL INFECTION, UNSPECIFIED SITE; Z16.21 - RESISTANCE TO VANCOMYCIN
--- NOTE | 2019-03-01 13:06 | PN ---
Physical Exam: SUBJECTIVE: Patient seen and examined at bedside in ICU. Remains hypotensive on pressors in septic shock, in apparent great pain. Despite multiple attempts to contact family they have not responded. OBJECTIVE: Vital Signs Period Temp Pulse Resp BP Sys/Zamorano Pulse Ox Last 24 Hr 97.6 F-98.2 F 78-90 13-18 102-139/49-78 96-100 GENERAL: lethargic, drowsy, oriented 0-1. thin appearing, decreased muscle mass and fat EARS, NOSE, THROAT: dry mucous membranes. LUNGS: CTAB HEART: irregularly irregular s1s2 normal ABDOMEN: Soft, NTND normoactive bowel sounds, ulcer present on sacrum unstagable with foul discharge, scrotum has ulcer no discharge MUSCULOSKELETAL: Normal range of motion at all joints. No bony deformities or tenderness. No CVA tenderness. UPPER EXTREMITIES: 2+ pulses, warm, well-perfused. LOWER EXTREMITIES: b/l wet gangrene with fouls smelling discharge SKIN: Warm, dry, Neuo: lethargic, responsive to pain. Laboratory Results - last 24 hr 02/28/19 03/01/19 03/01/19 18:37 05:26 05:30 WBC 10.8 H RBC 2.81 L Hgb 8.0 L Hct 25.6 L MCV 91.3 MCH 28.5 MCHC 31.2 L RDW 18.2 H Plt Count 369 MPV 7.6 Absolute Neuts (auto) 8.0 Neutrophils % 74.1 Lymphocytes % 18.1 Monocytes % 7.2 Eosinophils % 0.3 Basophils % 0.3 Nucleated RBC % 0 Sodium Potassium Chloride Carbon Dioxide Anion Gap BUN Creatinine Est GFR (CKD-EPI)AfAm Est GFR (CKD-EPI)NonAf POC Glucometer 100 82 Random Glucose Calcium Phosphorus Magnesium Total Bilirubin AST ALT Alkaline Phosphatase Total Protein Albumin 03/01/19 05:30 WBC RBC Hgb Hct MCV MCH MCHC RDW Plt Count MPV Absolute Neuts (auto) Neutrophils % Lymphocytes % Monocytes % Eosinophils % Basophils % Nucleated RBC % Sodium 138 Potassium 3.7 Chloride 100 Carbon Dioxide 32 Anion Gap 5 L BUN 8 Creatinine 1.8 H Est GFR (CKD-EPI)AfAm 42.03 Est GFR (CKD-EPI)NonAf 36.27 POC Glucometer Random Glucose 95 Calcium 7.7 L Phosphorus 1.9 L Magnesium 1.6 L Total Bilirubin 0.3 AST 6 L ALT < 6 L Alkaline Phosphatase 114 Total Protein 5.6 L Albumin 1.3 L Active Medications Generic Name Dose Route Start Last Admin Trade Name Kassandra PRN Reason Stop Dose Admin Albuterol/Ipratropium 1 amp 02/21/19 19:04 Duoneb - NEB Q6H PRN SHORTNESS OF BREATH Allopurinol 100 mg 02/22/19 10:00 03/01/19 10:29 Zyloprim - PO 100 mg DAILY [facility] Administration Amino Acids 30 ml 02/21/19 22:00 03/01/19 05:58 Prosource No Carb Liquid Pkt PO 30 ml TID [facility] Administration Apixaban 2.5 mg 02/21/19 22:00 03/01/19 10:29 Eliquis - PO 2.5 mg BID [facility] Administration Atorvastatin Calcium 20 mg 02/21/19 22:00 02/28/19 21:47 Lipitor - PO 20 mg HS [facility] Administration Collagenase 1 applic 02/22/19 10:00 03/01/19 10:51 Santyl - TP 1 applic DAILY [facility] Administration Protocol Epoetin Jose 10,000 unit 03/02/19 12:08 Epogen - IVPUSH 03/02/19 12:09 ONCE ONE Escitalopram Oxalate 10 mg 02/22/19 10:00 03/01/19 10:29 Lexapro - PO 10 mg DAILY [facility] Administration Norepinephrine Bitartrate 8, 500 mls @ 18.75 mls/hr 02/23/19 12:45 03/01/19 11:54 000 mcg/ Dextrose IV 4 mcg/min TITR [facility] 15 mls/hr Titration Protocol 5 MCG/MIN Ceftriaxone Sodium 2 gm/ 100 mls @ 200 mls/hr 02/25/19 10:00 03/01/19 10:30 Dextrose IVPB 200 mls/hr DAILY [facility] Administration Protocol Metronidazole 500 mg in 100 mls @ 100 mls/hr 02/24/19 18:00 03/01/19 10:30 Flagyl 500mg Premixed Ivpb - IVPB 100 mls/hr Q8H-IV [facility] Administration Sodium Chloride 250 mls @ 3,000 mls/hr 03/01/19 12:08 Normal Saline - IV 03/02/19 12:08 PRN PRN Hypotension during Dialysis Insulin Aspart 1 vial 02/26/19 10:00 03/01/19 05:59 Novolog Vial Sliding Scale - SQ Not Given BIDAC [facility] Protocol Lactobacillus Acidophilus 1 tab 02/22/19 10:00 03/01/19 10:29 Bacid - PO 1 tab DAILY [facility] Administration Midodrine 5 mg 02/23/19 10:00 02/28/19 10:35 Proamatine - PO 5 mg SuTuThSa@1000 [facility] Administration Midodrine 10 mg 02/22/19 10:00 03/01/19 10:30 Proamatine - PO 10 mg MoWeFr@1000 [facility] Administration Morphine Sulfate 2 mg 02/28/19 22:48 03/01/19 08:26 Morphine Sulfate IVPUSH 2 mg Q4H PRN Administration PAIN LEVEL 6-10 Multivitamins/Minerals/Vitamin C 1 tab 02/22/19 10:00 03/01/19 10:29 Tab-A-Vit - PO 1 tab DAILY [facility] Administration Tamsulosin HCl 0.4 mg 02/21/19 22:00 02/28/19 21:47 Flomax - PO 0.4 mg HS [facility] Administration ASSESSMENT/PLAN: 73 yo M PMH dementia, CVA, DM, COPD, ESRD, gout, HTN, HLP, recent admission 01/31- 02/19 during which he was treated for sepsis due to infected b/l feet ulcers/ gangrene. He was sent form [facility] due to poor po intake, and worsening of ulcers. Now in septic shock 2/2 DM gangrenous B/L feet infx, Infected sacral decub and scrotal ulcer, and GN bacteremia , requiring ICU and pressors #septic shock 2/2 DM gangrenous B/L feet infx, Infected sacral decub and scrotal ulcer, and GN bacteremia (proteus, prevotella) - requiring ICU and pressors, +L IJ. +Leukocytosis -old cx with E coli, ESBL, MRSA, and VRE. -contact isolation for MDRO -s/p Vanc and Zosyn in the ED, Gentamicin x1, Meropenem x2 in ICU -Bcx 02/21/19 growing GN cher - proteus and prevotella -ucx neg -wound cx E coli, morganella -Bcx 02/23/19 neg -ID consulted, Rangel -lactic acid resolved -palliative care consulted -c/w ceftriaxone 2g/flagyl d4, per ID recs -Aspiration precautions. -Levophed gtt 8, Titrate pressors to keep MAP>65 -vascular surgery consulted, Dr harry, for wound care. amputation indicated, but family not amenable. cont GOC -per ID no vanc, cx show no MRSA for >48hr #ESRD on HD (MWF) -nephro consulted (Dr. Henriquez) -HD as per nephro ned held by nephro for low phos. #Acute on chronic anemia likely 2/2 ESRD -monitor H/H #Severe protein calorie malnutrition -albumin 1.1, prealbumin 3.5 -thin appearing, decreased muscle mass and fat -decreased overall PO intake -Encourage Magic cup, Ensure pudding for increased density of nutritional intake #COPD -keep SpO2>90% -Duonebs q6h PRN #Dm ISS BGM ACHS #H/o hypotension : c/w home midodrine monitor vitals # h/o afib c/w elequis 2.5 bid #FEN -Not on any standing fluids -replete prn -tolerating puree diet, per speech eval #Prophylaxis -Eliquis 2.5mg BID #Disposition -full code -GOC/ethics consult placed, as we have attempted multiple times to contact daughter who has not responded and in the past has not been amenable to to allow for source control/amputation and standard of care. given patients inability to make decisions for himself and daughter unwillingness pt will likely cont to suffer w/o improvement and has spoor prognosis. yesterday multiple times various members of primary team and ICU team tried contacting daughter and brother for GOC/ethics meeting but still no response from family. will cont to call today -ICU monitoring Visit type - Emergency Visit Emergency Visit: No - New Patient This patient is new to me today: Yes Date on this admission: 03/01/19 - Critical Care Critical Care patient: Yes Total Critical Care Time (in minutes): 40 Critical Care Statement: The care of this patient involved high complexity decision making to prevent further life threatening deterioration of the patient 's condition and/or to evaluate & treat vital organ system(s) failure or risk of failure.
--- NOTE | 2019-03-01 16:22 | PN ---
Teaching Attending Note Name of Resident: Sean Stuart ATTENDING PHYSICIAN STATEMENT I saw and evaluated the patient. I reviewed the resident's note and discussed the case with the resident. I agree with the resident's findings and plan as documented. SUBJECTIVE: Patient continues to be on Pressors in ICU, no response from his family members , multiple attempts calling them with no response back. OBJECTIVE: Vital Signs Temperature 97.6 F 03/01/19 08:00 Pulse Rate 87 03/01/19 12:00 Respiratory Rate 13 03/01/19 12:00 Blood Pressure 127/49 L 03/01/19 12:00 O2 Sat by Pulse Oximetry (%) 96 03/01/19 09:00 GENERAL: A&Ox0, no acute distress EYES: PERRLA, EOMI ENT: Dry mucus membranes NECK: No JVD LUNGS: mildly coarse breath sounds, no wheezes HEART: RRR, systolic murmur noted on exam EXTREMITIES: 2+ pulses, no edema. contracted lower extremities. SKIN: bilateral gangrene lower ext down to the tendon on the left with purulent foul smelling discharge. Sacrum: Unstageble sacral ulcer CBCD WBC 10.8 K/mm3 (4.0-10.0) H 03/01/19 05:30 RBC 2.81 M/mm3 (4.00-5.60) L 03/01/19 05:30 Hgb 8.0 GM/dL (11.7-16.9) L 03/01/19 05:30 Hct 25.6 % (35.4-49) L 03/01/19 05:30 MCV 91.3 fl (80-96) 03/01/19 05:30 MCHC 31.2 g/dl (32.0-35.9) L 03/01/19 05:30 RDW 18.2 % (11.9-15.9) H 03/01/19 05:30 Plt Count 369 K/MM3 (134-434) 03/01/19 05:30 MPV 7.6 fl (7.5-11.1) 03/01/19 05:30 CMP Sodium 138 mmol/L (136-145) 03/01/19 05:30 Potassium 3.7 mmol/L (3.5-5.1) 03/01/19 05:30 Chloride 100 mmol/L (98-107) 03/01/19 05:30 Carbon Dioxide 32 mmol/L (21-32) 03/01/19 05:30 Anion Gap 5 MMOL/L (8-16) L 03/01/19 05:30 BUN 8 mg/dL (7-18) 03/01/19 05:30 Creatinine 1.8 mg/dL (0.55-1.3) H 03/01/19 05:30 Random Glucose 95 mg/dL (74-106) 03/01/19 05:30 Calcium 7.7 mg/dL (8.5-10.1) L 03/01/19 05:30 Total Bilirubin 0.3 mg/dL (0.2-1) 03/01/19 05:30 AST 6 U/L (15-37) L 03/01/19 05:30 ALT < 6 U/L (13-61) L 03/01/19 05:30 Alkaline Phosphatase 114 U/L (45-117) 03/01/19 05:30 Total Protein 5.6 g/dl (6.4-8.2) L 03/01/19 05:30 Albumin 1.3 g/dl (3.4-5.0) L 03/01/19 05:30 CARDIAC ENZYMES Troponin I < 0.02 ng/ml (0.00-0.05) 02/21/19 15:10 Current Medications Generic Name Dose Route Start Last Admin Trade Name Freq PRN Reason Stop Dose Admin Albuterol/Ipratropium 1 amp 02/21/19 19:04 Duoneb - NEB Q6H PRN SHORTNESS OF BREATH Allopurinol 100 mg 02/22/19 10:00 03/01/19 10:29 Zyloprim - PO 100 mg DAILY [facility] Administration Amino Acids 30 ml 02/21/19 22:00 03/01/19 05:58 Prosource No Carb Liquid Pkt PO 30 ml TID [facility] Administration Apixaban 2.5 mg 02/21/19 22:00 03/01/19 10:29 Eliquis - PO 2.5 mg BID [facility] Administration Atorvastatin Calcium 20 mg 02/21/19 22:00 02/28/19 21:47 Lipitor - PO 20 mg HS [facility] Administration Collagenase 1 applic 02/22/19 10:00 03/01/19 10:51 Santyl - TP 1 applic DAILY [facility] Administration Protocol Epoetin Jose 10,000 unit 03/02/19 12:08 Epogen - IVPUSH 03/02/19 12:09 ONCE ONE Escitalopram Oxalate 10 mg 02/22/19 10:00 03/01/19 10:29 Lexapro - PO 10 mg DAILY [facility] Administration Norepinephrine Bitartrate 8, 500 mls @ 18.75 mls/hr 02/23/19 12:45 03/01/19 11:54 000 mcg/ Dextrose IV 4 mcg/min TITR [facility] 15 mls/hr Titration Protocol 5 MCG/MIN Ceftriaxone Sodium 2 gm/ 100 mls @ 200 mls/hr 02/25/19 10:00 03/01/19 10:30 Dextrose IVPB 200 mls/hr DAILY [facility] Administration Protocol Metronidazole 500 mg in 100 mls @ 100 mls/hr 02/24/19 18:00 03/01/19 10:30 Flagyl 500mg Premixed Ivpb - IVPB 100 mls/hr Q8H-IV [facility] Administration Sodium Chloride 250 mls @ 3,000 mls/hr 03/01/19 12:08 Normal Saline - IV 03/02/19 12:08 PRN PRN Hypotension during Dialysis Insulin Aspart 1 vial 02/26/19 10:00 03/01/19 05:59 Novolog Vial Sliding Scale - SQ Not Given BIDAC [facility] Protocol Lactobacillus Acidophilus 1 tab 02/22/19 10:00 03/01/19 10:29 Bacid - PO 1 tab DAILY [facility] Administration Midodrine 5 mg 02/23/19 10:00 02/28/19 10:35 Proamatine - PO 5 mg SuTuThSa@1000 [facility] Administration Midodrine 10 mg 02/22/19 10:00 03/01/19 10:30 Proamatine - PO 10 mg MoWeFr@1000 [facility] Administration Morphine Sulfate 2 mg 02/28/19 22:48 03/01/19 08:26 Morphine Sulfate IVPUSH 2 mg Q4H PRN Administration PAIN LEVEL 6-10 Multivitamins/Minerals/Vitamin C 1 tab 02/22/19 10:00 03/01/19 10:29 Tab-A-Vit - PO 1 tab DAILY [facility] Administration Tamsulosin HCl 0.4 mg 02/21/19 22:00 02/28/19 21:47 Flomax - PO 0.4 mg HS [facility] Administration Home Medications Medication Instructions Recorded Albuterol 2.5/Ipratropium 0.5 1 amp NEB Q6H PRN #0 amp 07/12/17 [Duoneb -] Allopurinol [Zyloprim -] 100 mg PO DAILY tablet 07/12/17 Atorvastatin Ca [Lipitor] 20 mg PO HS tablet 07/12/17 Collagenase Clostridium Hist. 1 applic TP DAILY tube 09/06/18 [Santyl -] Albuterol Sulfate [Proair Hfa] 2 puff IH Q6H PRN 10/29/18 Escitalopram Oxalate [Lexapro -] 10 mg PO DAILY 10/29/18 Folic Acid/Vit B Complex and C 1 each PO DAILY 10/29/18 [Dialyvite Tablet] Midodrine HCl 10 mg PO MOWEFR 10/29/18 Sevelamer Carbonate [Renvela -] 1,600 mg PO TID 10/29/18 Tamsulosin HCl [Flomax] 0.4 mg PO HS 10/29/18 Insulin Sliding Scale [Novolog 1 vial SQ TIDAC #1 vial 11/17/18 Vial Sliding Scale -] Apixaban [Eliquis -] 5 mg PO BID #30 tablet MDD 2 11/19/18 Collagenase Clostridium Hist. 1 applic TP DAILY #1 tube 01/17/19 [Santyl -] Amoxicillin/Potassium Clav 1 each PO DAILY #7 tablet 02/06/19 [Augmentin 500-125 Tablet] Megestrol Acetate Oral Susp 400 mg PO DAILY #20 cup 02/06/19 [Megace Liquid -] Protein Supplement [Prosource] 275 gm PO TID #60 powder 02/06/19 Lactobacillus Acidophilus [Bacid -] 1 tab PO DAILY #60 tab 02/19/19 Midodrine HCl [Proamatine -] 5 mg PO SuTuThSa #60 tablet 02/19/19 traMADol HCL [Ultram -] 50 mg PO Q6H PRN #60 tablet MDD 4 02/19/19 Microbiology 02/23/19 11:50 Blood - Peripheral Venous Blood Culture - Final NO GROWTH AFTER 5 DAYS INCUBATION 02/23/19 11:50 Blood - Peripheral Venous Blood Culture - Final NO GROWTH AFTER 5 DAYS INCUBATION 02/21/19 13:16 Blood - Peripheral Venous Blood Culture - Final Proteus Mirabilis Prevotella Melaninogenica 02/21/19 16:30 Foot - Left Heel Gram Stain - Final 02/21/19 16:30 Foot - Left Heel Wound Culture - Final Escherichia Coli Esbl [employer] Coordinator Morganella Morganii 02/21/19 15:40 Blood - Peripheral Venous Blood Culture - Final Proteus Mirabilis 02/21/19 14:50 Urine - Urine - Catheterized Urine Culture - Final NO GROWTH OBTAINED ASSESSMENT AND PLAN: Patient is a 73 y/o male with PMHx of dementia, CVA, DM, COPD, ESRD, gout, HTN, HLP, recent admission 01/31-02/19 during which he was treated for sepsis due to infected b/l LEs gangrenous ulcers. He was sent from [place] due to poor po intake, and non healing wounds # Gangrenous b/l LEs. with septic shock . on IV pressors Levophed on taper , and IV antibiotics Rocephin/flagyl, Vascular surgeon on the case. # Septic shock due to bacteremia to Proteus Morganii continue IV antibiotics and pressors # Infected sacral decub and scrotal ulcer continue IV antibiotics # ESRD on HD , nephro on the case # DM with sliding scale with coverage # hypophosphatemia repleted # hypokalemia repleted Case d/w dr. Khan , appreciate help. No response from the daughter or any other family members , ethics on the case.
[2019-03-01] MEDS: NOREPINEPHRINE BITARTRATE 8,000 MCG in DEXTROSE 5%-WATER - 492 ML IV SCH (16:48)
--- NOTE | 2019-03-01 16:59 | CON.PSY ---
Psychiatry Consult Chief Complaint: 73 Meño old male with a history of DEmentia nad several chronic and acute medical conditions admitted from [facility]. Patient seen for psych eval for capacity. Symptoms: reports: Memory Impairment - Previous Psychiatric Treatment Outpatient: None Inpatient: None - Previous Substance Abuse Treatment Outpatient: None Inpatient: None - Current Medications Current Medications: Active Medications Albuterol/Ipratropium (Duoneb -) 1 amp NEB Q6H PRN PRN Reason: SHORTNESS OF BREATH Allopurinol (Zyloprim -) 100 mg PO DAILY [facility] Last Admin: 03/01/19 10:29 Dose: 100 mg Amino Acids (Prosource No Carb Liquid Pkt) 30 ml PO TID [facility] Last Admin: 03/01/19 16:48 Dose: 30 ml Apixaban (Eliquis -) 2.5 mg PO BID [facility] Last Admin: 03/01/19 10:29 Dose: 2.5 mg Atorvastatin Calcium (Lipitor -) 20 mg PO HS [facility] Last Admin: 02/28/19 21:47 Dose: 20 mg Collagenase (Santyl -) 1 applic TP DAILY [facility]; Protocol Last Admin: 03/01/19 10:51 Dose: 1 applic Epoetin Jose (Epogen -) 10,000 unit IVPUSH ONCE ONE Stop: 03/02/19 12:09 Escitalopram Oxalate (Lexapro -) 10 mg PO DAILY [facility] Last Admin: 03/01/19 10:29 Dose: 10 mg Norepinephrine Bitartrate 8, (000 mcg/ Dextrose) 500 mls @ 18.75 mls/hr IV TITR [facility]; Protocol Last Admin: 03/01/19 16:48 Dose: 2 mcg/min, 7.5 mls/hr Ceftriaxone Sodium 2 gm/ (Dextrose) 100 mls @ 200 mls/hr IVPB DAILY [facility]; Protocol Last Admin: 03/01/19 10:30 Dose: 200 mls/hr Metronidazole (Flagyl 500mg Premixed Ivpb -) 500 mg in 100 mls @ 100 mls/hr IVPB Q8H-IV [facility] Last Admin: 03/01/19 10:30 Dose: 100 mls/hr Sodium Chloride (Normal Saline -) 250 mls @ 3,000 mls/hr IV PRN PRN PRN Reason: Hypotension during Dialysis Stop: 03/02/19 12:08 Insulin Aspart (Novolog Vial Sliding Scale -) 1 vial SQ BIDAC [facility]; Protocol Last Admin: 03/01/19 05:59 Dose: Not Given Lactobacillus Acidophilus (Bacid -) 1 tab PO DAILY [facility] Last Admin: 03/01/19 10:29 Dose: 1 tab Midodrine (Proamatine -) 5 mg PO SuTuThSa@1000 [facility] Last Admin: 02/28/19 10:35 Dose: 5 mg Midodrine (Proamatine -) 10 mg PO MoWeFr@1000 [facility] Last Admin: 03/01/19 10:30 Dose: 10 mg Morphine Sulfate (Morphine Sulfate) 2 mg IVPUSH Q4H PRN PRN Reason: PAIN LEVEL 6-10 Last Admin: 03/01/19 16:46 Dose: 2 mg Multivitamins/Minerals/Vitamin C (Tab-A-Vit -) 1 tab PO DAILY [facility] Last Admin: 03/01/19 10:29 Dose: 1 tab Tamsulosin HCl (Flomax -) 0.4 mg PO [facility] Last Admin: 02/28/19 21:47 Dose: 0.4 mg - Allergies Allergies: Allergies Allergy/AdvReac Type Severity Reaction Status Date / Time watermelon Allergy Unknown Verified 02/21/19 14:44 melon Allergy Verified 02/21/19 14:44 No Known Drug Allergies Allergy Verified 02/21/19 14:44 - Current Living Status Usual Living Arrangement: Longterm - Current Mental Status Evaluation Appearance: Disheveled Attitude: Guarded - Affect Affect: Flat Appropriateness: Not Appropriate - Speech/Language Expressive: Delayed - Psychomotor Activity Psychomotor Activity: Slowed - Thought Process Thought Process: Boyce - Thought Content Hallucinations: Absent Delusions: Absent - Self Perception Self Perception: Depersonalization - Cognition Attention: Diminished Memory, Immediate Recall: Impaired Memory, Short Term: 0/3 Memory, Remote with Promptin/3 - Concentration Serial Sevens Intact: No Simple Calculations Intact: No - Abstraction Proverb Interpretation: Impaired Judgement: Severely Impaired - Insight Insight: Impaired - Impulse Control Impulse Control: Good Control - Suicidal Ideation Suicidal Ideation: No - Homicidal Ideation Homicidal Ideation: No Assessment/Plan 1) Patient lacks Mental capacity to make any decisions due to severe Dementia Syndrome.
--- NOTE | 2019-03-01 17:29 | PN ---
Physical Exam: SUBJECTIVE: Patient seen and examined at bedside. Continues to require Levo 6 mcq to BP support. Pt has NG tube for feeding. Reported to have excessive pain over night requiring 4 mg morphine which helped. Appears comfortable, denies complaints of pain at bedside OBJECTIVE: Vital Signs Period Temp Pulse Resp BP Sys/Zamorano Pulse Ox Last 24 Hr 97.6 F-98 F 80-90 13-20 102-139/49-78 96-100 GENERAL: The patient is awake, alert, baseline dementia, in no acute distress. HEAD: Normal with no signs of trauma. EYES: PERRL, extraocular movements intact, sclera anicteric, conjunctiva clear. No ptosis. ENT: Ears normal, nares patent, oropharynx clear without exudates, moist mucous membranes. NECK: Trachea midline, full range of motion, supple. LUNGS: Breath sounds equal, clear to auscultation bilaterally, no wheezes, no crackles, no accessory muscle use. HEART: Regular rate and rhythm, S1, S2 without murmur, rub or gallop. ABDOMEN: Soft, nontender, nondistended, normoactive bowel sounds, no guarding, no rebound, no hepatosplenomegaly, no masses. EXTREMITIES: bilateral gangrene lower ext down to the tendon on the left with unstageble sacral ulcer NEUROLOGICAL: Cranial nerves II through XII grossly intact. Follows basic commands PSYCH: Normal mood, normal affect. SKIN: bilateral gangrene lower ext down to the tendon on the left with purulent foul smelling discharge. Unstageble sacral ulcer with Laboratory Results - last 24 hr 02/28/19 03/01/19 03/01/19 18:37 05:26 05:30 WBC 10.8 H RBC 2.81 L Hgb 8.0 L Hct 25.6 L MCV 91.3 MCH 28.5 MCHC 31.2 L RDW 18.2 H Plt Count 369 MPV 7.6 Absolute Neuts (auto) 8.0 Neutrophils % 74.1 Lymphocytes % 18.1 Monocytes % 7.2 Eosinophils % 0.3 Basophils % 0.3 Nucleated RBC % 0 Sodium Potassium Chloride Carbon Dioxide Anion Gap BUN Creatinine Est GFR (CKD-EPI)AfAm Est GFR (CKD-EPI)NonAf POC Glucometer 100 82 Random Glucose Calcium Phosphorus Magnesium Total Bilirubin AST ALT Alkaline Phosphatase Total Protein Albumin 03/01/19 03/01/19 05:30 17:02 WBC RBC Hgb Hct MCV MCH MCHC RDW Plt Count MPV Absolute Neuts (auto) Neutrophils % Lymphocytes % Monocytes % Eosinophils % Basophils % Nucleated RBC % Sodium 138 Potassium 3.7 Chloride 100 Carbon Dioxide 32 Anion Gap 5 L BUN 8 Creatinine 1.8 H Est GFR (CKD-EPI)AfAm 42.03 Est GFR (CKD-EPI)NonAf 36.27 POC Glucometer 126 Random Glucose 95 Calcium 7.7 L Phosphorus 1.9 L Magnesium 1.6 L Total Bilirubin 0.3 AST 6 L ALT < 6 L Alkaline Phosphatase 114 Total Protein 5.6 L Albumin 1.3 L Active Medications Generic Name Dose Route Start Last Admin Trade Name Freq PRN Reason Stop Dose Admin Albuterol/Ipratropium 1 amp 02/21/19 19:04 Duoneb - NEB Q6H PRN SHORTNESS OF BREATH Allopurinol 100 mg 02/22/19 10:00 03/01/19 10:29 Zyloprim - PO 100 mg DAILY [facility] Administration Amino Acids 30 ml 02/21/19 22:00 03/01/19 16:48 Prosource No Carb Liquid Pkt PO 30 ml TID [facility] Administration Apixaban 2.5 mg 02/21/19 22:00 03/01/19 10:29 Eliquis - PO 2.5 mg BID [facility] Administration Atorvastatin Calcium 20 mg 02/21/19 22:00 02/28/19 21:47 Lipitor - PO 20 mg HS [facility] Administration Collagenase 1 applic 02/22/19 10:00 03/01/19 10:51 Santyl - TP 1 applic DAILY [facility] Administration Protocol Epoetin Jose 10,000 unit 03/02/19 12:08 Epogen - IVPUSH 03/02/19 12:09 ONCE ONE Escitalopram Oxalate 10 mg 02/22/19 10:00 03/01/19 10:29 Lexapro - PO 10 mg DAILY [facility] Administration Norepinephrine Bitartrate 8, 500 mls @ 18.75 mls/hr 02/23/19 12:45 03/01/19 16:48 000 mcg/ Dextrose IV 2 mcg/min TITR [facility] 7.5 mls/hr Administration Protocol 5 MCG/MIN Ceftriaxone Sodium 2 gm/ 100 mls @ 200 mls/hr 02/25/19 10:00 03/01/19 10:30 Dextrose IVPB 200 mls/hr DAILY [facility] Administration Protocol Metronidazole 500 mg in 100 mls @ 100 mls/hr 02/24/19 18:00 03/01/19 17:03 Flagyl 500mg Premixed Ivpb - IVPB 100 mls/hr Q8H-IV [facility] Administration Sodium Chloride 250 mls @ 3,000 mls/hr 03/01/19 12:08 Normal Saline - IV 03/02/19 12:08 PRN PRN Hypotension during Dialysis Insulin Aspart 1 vial 02/26/19 10:00 03/01/19 17:03 Novolog Vial Sliding Scale - SQ Not Given BIDAC [facility] Protocol Lactobacillus Acidophilus 1 tab 02/22/19 10:00 03/01/19 10:29 Bacid - PO 1 tab DAILY [facility] Administration Midodrine 5 mg 02/23/19 10:00 02/28/19 10:35 Proamatine - PO 5 mg SuTuThSa@1000 [facility] Administration Midodrine 10 mg 02/22/19 10:00 03/01/19 10:30 Proamatine - PO 10 mg MoWeFr@1000 [facility] Administration Morphine Sulfate 2 mg 02/28/19 22:48 03/01/19 16:46 Morphine Sulfate IVPUSH 2 mg Q4H PRN Administration PAIN LEVEL 6-10 Multivitamins/Minerals/Vitamin C 1 tab 02/22/19 10:00 03/01/19 10:29 Tab-A-Vit - PO 1 tab DAILY [facility] Administration Tamsulosin HCl 0.4 mg 02/21/19 22:00 02/28/19 21:47 Flomax - PO 0.4 mg HS [facility] Administration ASSESSMENT/PLAN: Once again, multiple calls placed to pts Daughter and friend, Btuch, listed. No answer and no return call. Spoke with Palliative care, state Psych consult should be placed to determine capacity. Psych determines pt does not have capacity at this time. Central line placed 02/22 which will need to be changed within the next 3-4 days #septic shock 2/2 DM gangrenous B/L feet infx, Infected sacral decub and scrotal ulcer, and GN bacteremia (proteus, prevotella) - requiring ICU and pressors, +L IJ. +Leukocytosis -old cx with E coli, ESBL, MRSA, and VRE. -contact isolation for MDRO -s/p Vanc and Zosyn in the ED, Gentamicin x1, Meropenem x2 in ICU -Bcx 02/21/19 growing GN cher - proteus and prevotella -ucx neg -wound cx E coli, morganella -Bcx 02/23/19 neg -ID consulted, Rangel -lactic acid resolved -palliative care consulted -c/w ceftriaxone 2g/flagyl d4, per ID recs -Aspiration precautions. -Levophed gtt 6, Titrate pressors to keep MAP>65. Continue to wean -vascular surgery consulted, Dr harry, for wound care. amputation indicated, but family not amenable. cont GOC -per ID no vanc, cx show no MRSA for >48hr #ESRD on HD (MWF) -nephro consulted (Dr. Henriquez) -HD as per nephro, will have HD tmr ned held by nephro for low phos. #Acute on chronic anemia likely 2/2 ESRD -monitor H/H #Severe protein calorie malnutrition -albumin 1.1, prealbumin 3.5 -thin appearing, decreased muscle mass and fat -decreased overall PO intake -Encourage Magic cup, Ensure pudding for increased density of nutritional intake #COPD -keep SpO2>90% -Duonebs q6h PRN #Dm ISS BGM ACHS #H/o hypotension : c/w home midodrine monitor vitals # h/o afib c/w elequis 2.5 bid #FEN -Not on any standing fluids -replete prn -tolerating puree diet, per speech eval #Prophylaxis -Eliquis 2.5mg BID #Disposition -full code. Visit type - Emergency Visit Emergency Visit: No - New Patient This patient is new to me today: No - Critical Care Critical Care patient: Yes Total Critical Care Time (in minutes): 36 Critical Care Statement: The care of this patient involved high complexity decision making to prevent further life threatening deterioration of the patient 's condition and/or to evaluate & treat vital organ system(s) failure or risk of failure. - Discharge Referral Referred to [facility] Med P.[facility].: No
[2019-03-01] MEDS: ATORVASTATIN CA 20 MG TABLET (FP) PO SCH (21:34)
[2019-03-01] MEDS: TAMSULOSIN HCL 0.4 MG CAP PO SCH (21:34)
[2019-03-02] MEDS: MORPHINE SULFATE 2 MG/ML VIAL IVPUSH PRN ×2 (05:34→17:04)
[2019-03-02] MEDS: AMINO ACIDS/PROTEIN HYDROLYS 30 ML LIQUID.PKT PO SCH ×3 (05:50→22:30)
[2019-03-02 06:44] LABS: BASO % 0.5 % (0-2.0); EOS % 0.6 % (0-4.5); HEMATOCRIT 22.7 % (35.4-49); HEMOGLOBIN 7.1 GM/dL (11.7-16.9); LYMPH % 12.3 % (8-40); MCH 28.6 pg (25.7-33.7); MCHC 31.3 g/dl (32.0-35.9); MEAN CELL VOLUME 91.4 fl (80-96); MEAN PLT VOLUME 7.8 fl (7.5-11.1); MONO % 7.9 % (3.8-10.2); NEUT % 78.7 % (42.8-82.8); RBC 2.48 M/mm3 (4.00-5.60); RDW 18.8 % (11.9-15.9); WHITE BLOOD COUNT 12.4 K/mm3 (4.0-10.0)
[2019-03-02 06:58] LABS: ALBUMIN 1.1 g/dl (3.4-5.0); ALK PHOS 106 U/L (45-117); ANION GAP 6 MMOL/L (8-16); BILIRUBIN,TOTAL 0.2 mg/dL (0.2-1); BLOOD UREA NITROGEN 11.7 mg/dL (7-18); CALCIUM 7.5 mg/dL (8.5-10.1); CHLORIDE 100 mmol/L (98-107); CO2 32 mmol/L (21-32); CREATININE 2.4 mg/dL (0.55-1.3); GLUCOSE,RANDOM 130 mg/dL (74-106); POTASSIUM 3.2 mmol/L (3.5-5.1); SGOT/AST 5 U/L (15-37); SGPT/ALT < 6 U/L (13-61); SODIUM 137 mmol/L (136-145); TOT PROT 4.9 g/dl (6.4-8.2)
[2019-03-02] MEDS: INSULIN SLIDING SCALE (NOVOLOG) 1 VIAL SQ SCH ×2 (07:10→17:09)
[2019-03-02] MEDS ORDERED: SODIUM CHLORIDE 250 ML IV PRN (07:40)
[2019-03-02] MEDS ORDERED: EPOETIN ALFA 2,000 UNIT/1 ML VIAL IVPUSH ONE (07:45)
[2019-03-02] MEDS ORDERED: DEXTROSE 5%-WATER 100 ML IVPB ONE (08:26)
[2019-03-02 10:44] LABS: PLATELET COUNT 433 K/MM3 (134-434)
--- NOTE | 2019-03-02 10:48 | PN ---
Progress Note, Physician History of Present Illness: Pt seen and examined at bedside. He is tolerating HD. - Current Medication List Current Medications: Active Medications Albuterol/Ipratropium (Duoneb -) 1 amp NEB Q6H PRN PRN Reason: SHORTNESS OF BREATH Allopurinol (Zyloprim -) 100 mg PO DAILY [facility] Last Admin: 03/01/19 10:29 Dose: 100 mg Amino Acids (Prosource No Carb Liquid Pkt) 30 ml PO TID [facility] Last Admin: 03/02/19 05:50 Dose: 30 ml Apixaban (Eliquis -) 2.5 mg PO BID [facility] Last Admin: 03/01/19 21:33 Dose: Not Given Atorvastatin Calcium (Lipitor -) 20 mg PO HS [facility] Last Admin: 03/01/19 21:34 Dose: Not Given Collagenase (Santyl -) 1 applic TP DAILY [facility]; Protocol Last Admin: 03/01/19 10:51 Dose: 1 applic Escitalopram Oxalate (Lexapro -) 10 mg PO DAILY [facility] Last Admin: 03/01/19 10:29 Dose: 10 mg Norepinephrine Bitartrate 8, (000 mcg/ Dextrose) 500 mls @ 18.75 mls/hr IV TITR [facility]; Protocol Last Titration: 03/02/19 08:15 Dose: 6 mcg/min, 22.5 mls/hr Ceftriaxone Sodium 2 gm/ (Dextrose) 100 mls @ 200 mls/hr IVPB DAILY [facility]; Protocol Last Admin: 03/01/19 10:30 Dose: 200 mls/hr Metronidazole (Flagyl 500mg Premixed Ivpb -) 500 mg in 100 mls @ 100 mls/hr IVPB Q8H-IV [facility] Last Admin: 03/02/19 01:15 Dose: 100 mls/hr Insulin Aspart (Novolog Vial Sliding Scale -) 1 vial SQ BIDAC [facility]; Protocol Last Admin: 03/02/19 07:10 Dose: Not Given Lactobacillus Acidophilus (Bacid -) 1 tab PO DAILY [facility] Last Admin: 03/01/19 10:29 Dose: 1 tab Midodrine (Proamatine -) 5 mg PO SuTuThSa@1000 [facility] Last Admin: 02/28/19 10:35 Dose: 5 mg Midodrine (Proamatine -) 10 mg PO MoWeFr@1000 [facility] Last Admin: 03/01/19 10:30 Dose: 10 mg Morphine Sulfate (Morphine Sulfate) 2 mg IVPUSH Q4H PRN PRN Reason: PAIN LEVEL 6-10 Last Admin: 03/02/19 05:34 Dose: 2 mg Multivitamins/Minerals/Vitamin C (Tab-A-Vit -) 1 tab PO DAILY [facility] Last Admin: 03/01/19 10:29 Dose: 1 tab Tamsulosin HCl (Flomax -) 0.4 mg PO HS [facility] Last Admin: 03/01/19 21:34 Dose: Not Given - Objective Vital Signs: Vital Signs Temperature 97.8 F 03/02/19 08:00 Pulse Rate 94 H 03/02/19 10:30 Respiratory Rate 16 03/02/19 10:30 Blood Pressure 112/59 L 03/02/19 10:30 O2 Sat by Pulse Oximetry (%) 96 03/02/19 08:41 Constitutional: Yes: Calm Eyes: Yes: Conjunctiva Clear HENT: Yes: Atraumatic Neck: Yes: Supple Cardiovascular: Yes: S1, S2 Respiratory: Yes: On Nasal O2 Gastrointestinal: Yes: Normal Bowel Sounds, Soft Genitourinary: Yes: Incontinence Musculoskeletal: Yes: Muscle Weakness Edema: No Neurological: Yes: Confusion Labs: CBC, BMP 03/02/19 05:25 03/02/19 05:25 INR, PTT INR 1.44 (0.83-1.09) H 02/22/19 05:40 Assessment/Plan Current Medications Generic Name Dose Route Start Last Admin Trade Name Freq PRN Reason Stop Dose Admin Albuterol/Ipratropium 1 amp 02/21/19 19:04 Duoneb - NEB Q6H PRN SHORTNESS OF BREATH Allopurinol 100 mg 02/22/19 10:00 03/01/19 10:29 Zyloprim - PO 100 mg DAILY [facility] Administration Amino Acids 30 ml 02/21/19 22:00 03/02/19 05:50 Prosource No Carb Liquid Pkt PO 30 ml TID [facility] Administration Apixaban 2.5 mg 02/21/19 22:00 03/01/19 21:33 Eliquis - PO Not Given BID [facility]TE[facility] Atorvastatin Calcium 20 mg 02/21/19 22:00 03/01/19 21:34 Lipitor - PO Not Given HS [facility] Collagenase 1 applic 02/22/19 10:00 03/01/19 10:51 Santyl - TP 1 applic DAILY [facility] Administration Protocol Escitalopram Oxalate 10 mg 02/22/19 10:00 03/01/19 10:29 Lexapro - PO 10 mg DAILY [facility] Administration Norepinephrine Bitartrate 8, 500 mls @ 18.75 mls/hr 02/23/19 12:45 03/02/19 08:15 000 mcg/ Dextrose IV 6 mcg/min TITR [facility]ANTELL 22.5 mls/hr Titration Protocol 5 MCG/MIN Ceftriaxone Sodium 2 gm/ 100 mls @ 200 mls/hr 02/25/19 10:00 03/01/19 10:30 Dextrose IVPB 200 mls/hr DAILY [facility] Administration Protocol Metronidazole 500 mg in 100 mls @ 100 mls/hr 02/24/19 18:00 03/02/19 01:15 Flagyl 500mg Premixed Ivpb - IVPB 100 mls/hr Q8H-IV [facility] Administration Insulin Aspart 1 vial 02/26/19 10:00 03/02/19 07:10 Novolog Vial Sliding Scale - SQ Not Given BIDAC [facility] Protocol Lactobacillus Acidophilus 1 tab 02/22/19 10:00 03/01/19 10:29 Bacid - PO 1 tab DAILY [facility] Administration Midodrine 5 mg 02/23/19 10:00 02/28/19 10:35 Proamatine - PO 5 mg SuTuThSa@1000 [facility] Administration Midodrine 10 mg 02/22/19 10:00 03/01/19 10:30 Proamatine - PO 10 mg MoWeFr@1000 [facility] Administration Morphine Sulfate 2 mg 02/28/19 22:48 03/02/19 05:34 Morphine Sulfate IVPUSH 2 mg Q4H PRN Administration PAIN LEVEL 6-10 Multivitamins/Minerals/Vitamin C 1 tab 02/22/19 10:00 03/01/19 10:29 Tab-A-Vit - PO 1 tab DAILY [facility] Administration Tamsulosin HCl 0.4 mg 02/21/19 22:00 03/01/19 21:34 Flomax - PO Not Given HS [facility] Impression 1. ESRD 2. gangrene 3. DM 4. hyperlipidemia 5. HTN 6. gout 7. proteinuria 8. hypotension 9. sepsis Plan - HD today - pressors for hypotension - discussed with ICU - surgery follow up - family still refusing surgical intervention - renal diet
--- NOTE | 2019-03-02 10:55 | PN ---
Teaching Attending Note Name of Resident: Gualberto Eagle ATTENDING PHYSICIAN STATEMENT I saw and evaluated the patient. I reviewed the resident's note and discussed the case with the resident. I agree with the resident's findings and plan as documented. SUBJECTIVE: Pt seen and examined in the ICU. Currently being dialyzed. Remains on levophed gtt. Lethargic but more arousable today. OBJECTIVE: Vital Signs Period Temp Pulse Resp BP Sys/Zamorano Pulse Ox Last 24 Hr 97.8 F-98 F 77-97 13-20 88-129/32-71 96-98 Intake & Output 02/27/19 02/28/19 03/01/19 03/02/19 23:59 23:59 23:59 23:59 Intake Total 1218.5 1350 2100 Output Total 0 0 0 Balance 1218.5 1350 2100 Weight 59.511 kg 61.144 kg 60.963 kg 65.2 kg Gen: lethargic but arousable Heart: RRR Lung: decreased breath sounds at the bases Abd: soft, nontender Ext: no edema CBC, BMP 03/02/19 05:25 03/02/19 05:25 Active Medications Albuterol/Ipratropium (Duoneb -) 1 amp NEB Q6H PRN PRN Reason: SHORTNESS OF BREATH Allopurinol (Zyloprim -) 100 mg PO DAILY [facility] Last Admin: 03/01/19 10:29 Dose: 100 mg Amino Acids (Prosource No Carb Liquid Pkt) 30 ml PO TID [facility] Last Admin: 03/02/19 05:50 Dose: 30 ml Apixaban (Eliquis -) 2.5 mg PO BID [facility] Last Admin: 03/01/19 21:33 Dose: Not Given Atorvastatin Calcium (Lipitor -) 20 mg PO HS [facility] Last Admin: 03/01/19 21:34 Dose: Not Given Collagenase (Santyl -) 1 applic TP DAILY [facility]; Protocol Last Admin: 03/01/19 10:51 Dose: 1 applic Escitalopram Oxalate (Lexapro -) 10 mg PO DAILY [facility] Last Admin: 03/01/19 10:29 Dose: 10 mg Norepinephrine Bitartrate 8, (000 mcg/ Dextrose) 500 mls @ 18.75 mls/hr IV TITR [facility]; Protocol Last Titration: 03/02/19 08:15 Dose: 6 mcg/min, 22.5 mls/hr Ceftriaxone Sodium 2 gm/ (Dextrose) 100 mls @ 200 mls/hr IVPB DAILY [facility]; Protocol Last Admin: 03/01/19 10:30 Dose: 200 mls/hr Metronidazole (Flagyl 500mg Premixed Ivpb -) 500 mg in 100 mls @ 100 mls/hr IVPB Q8H-IV [facility] Last Admin: 03/02/19 01:15 Dose: 100 mls/hr Insulin Aspart (Novolog Vial Sliding Scale -) 1 vial SQ BIDAC [facility]; Protocol Last Admin: 03/02/19 07:10 Dose: Not Given Lactobacillus Acidophilus (Bacid -) 1 tab PO DAILY [facility] Last Admin: 03/01/19 10:29 Dose: 1 tab Midodrine (Proamatine -) 5 mg PO SuTuThSa@1000 [facility] Last Admin: 02/28/19 10:35 Dose: 5 mg Midodrine (Proamatine -) 10 mg PO MoWeFr@1000 [facility] Last Admin: 03/01/19 10:30 Dose: 10 mg Morphine Sulfate (Morphine Sulfate) 2 mg IVPUSH Q4H PRN PRN Reason: PAIN LEVEL 6-10 Last Admin: 03/02/19 05:34 Dose: 2 mg Multivitamins/Minerals/Vitamin C (Tab-A-Vit -) 1 tab PO DAILY [facility] Last Admin: 03/01/19 10:29 Dose: 1 tab Tamsulosin HCl (Flomax -) 0.4 mg PO HS [facility] Last Admin: 03/01/19 21:34 Dose: Not Given ASSESSMENT AND PLAN: Bilateral Feet Gangrene Infected Decubitus Ulcers Gram Negative Bacteremia Septic Shock ESRD on HD DM HTN Hyperlipidemia h/o CVA - continue antibiotics per ID - titrate up midodrine - taper pressors to maintain MAP >65 - wound care - HD per renal - aspiration precautions - continue attempts to contact family regarding goals of care, advanced directives - DVT prophylaxis - continue ICU monitoring critical care time spent in reviewing chart, evaluating patient and formulating plan 35 min
[2019-03-02] MEDS: CEFTRIAXONE 2 GM in DEXTROSE 5%-WATER 100 ML IVPB SCH (11:12)
[2019-03-02] MEDS: LACTOBACILLUS ACIDOPHILUS 1 TABLET PO SCH ×2 (11:13→11:59)
[2019-03-02] MEDS: ESCITALOPRAM OXALATE 10 MG TABLET (FP) PO SCH ×2 (11:13→11:59)
[2019-03-02] MEDS: MULTIVITAMINS (DAILY MVI) TABLET (FP) PO SCH ×2 (11:13→11:59)
[2019-03-02] MEDS: APIXABAN 2.5 MG TABLET PO SCH ×3 (11:13→22:30)
[2019-03-02] MEDS: COLLAGENASE CLOSTRIDIUM HIST. 30 GRAMS TUBE TP SCH (11:14)
[2019-03-02] MEDS: ALLOPURINOL 100 MG TABLET (FP) PO SCH ×2 (11:14→11:59)
[2019-03-02] MEDS: MIDODRINE HCL 5 MG TABLET PO SCH ×3 (11:58→17:36)
[2019-03-02] MEDS: NOREPINEPHRINE BITARTRATE 8,000 MCG in DEXTROSE 5%-WATER - 492 ML IV SCH (12:00)
--- NOTE | 2019-03-02 12:26 | PN ---
Physical Exam: SUBJECTIVE: Patient seen and examined at bedside No overnight events. Still requires pressors to maintain MAP above 65. On 2 mcq Levo. Awake, alert, AOX1. OBJECTIVE: Vital Signs Period Temp Pulse Resp BP Sys/Zamorano Pulse Ox Last 24 Hr 97.8 F-98 F 77-97 16-20 88-129/32-71 96-98 GENERAL: The patient is awake, alert, baseline dementia, in no acute distress. HEAD: Normal with no signs of trauma. EYES: PERRL, extraocular movements intact, sclera anicteric, conjunctiva clear. No ptosis. ENT: Ears normal, nares patent, oropharynx clear without exudates, moist mucous membranes. NECK: Trachea midline, full range of motion, supple. LUNGS: Breath sounds equal, clear to auscultation bilaterally, no wheezes, no crackles, no accessory muscle use. HEART: Regular rate and rhythm, S1, S2 without murmur, rub or gallop. ABDOMEN: Soft, nontender, nondistended, normoactive bowel sounds, no guarding, no rebound, no hepatosplenomegaly, no masses. EXTREMITIES: bilateral gangrene lower ext down to the tendon on the left with unstageble sacral ulcer NEUROLOGICAL: Cranial nerves II through XII grossly intact. Follows basic commands PSYCH: Normal mood, normal affect. SKIN: bilateral gangrene lower ext down to the tendon on the left with purulent foul smelling discharge. Unstageble sacral ulcer with Laboratory Results - last 24 hr 03/01/19 03/02/19 03/02/19 17:02 05:25 05:25 WBC 12.4 H RBC 2.48 L Hgb 7.1 L Hct 22.7 L MCV 91.4 MCH 28.6 MCHC 31.3 L RDW 18.8 H Plt Count 433 MPV 7.8 Absolute Neuts (auto) 9.8 H Neutrophils % 78.7 Lymphocytes % 12.3 D Monocytes % 7.9 Eosinophils % 0.6 D Basophils % 0.5 Nucleated RBC % 0 Sodium 137 Potassium 3.2 L Chloride 100 Carbon Dioxide 32 Anion Gap 6 L BUN 11.7 Creatinine 2.4 H Est GFR (CKD-EPI)AfAm 29.69 Est GFR (CKD-EPI)NonAf 25.61 POC Glucometer 126 Random Glucose 130 H Calcium 7.5 L Total Bilirubin 0.2 AST 5 L ALT < 6 L Alkaline Phosphatase 106 Total Protein 4.9 L Albumin 1.1 L Blood Type Antibody Screen 03/02/19 10:15 WBC RBC Hgb Hct MCV MCH MCHC RDW Plt Count MPV Absolute Neuts (auto) Neutrophils % Lymphocytes % Monocytes % Eosinophils % Basophils % Nucleated RBC % Sodium Potassium Chloride Carbon Dioxide Anion Gap BUN Creatinine Est GFR (CKD-EPI)AfAm Est GFR (CKD-EPI)NonAf POC Glucometer Random Glucose Calcium Total Bilirubin AST ALT Alkaline Phosphatase Total Protein Albumin Blood Type A POSITIVE Antibody Screen Negative Active Medications Generic Name Dose Route Start Last Admin Trade Name Freq PRN Reason Stop Dose Admin Albuterol/Ipratropium 1 amp 02/21/19 19:04 Duoneb - NEB Q6H PRN SHORTNESS OF BREATH Allopurinol 100 mg 02/22/19 10:00 03/02/19 11:59 Zyloprim - PO Not Given DAILY CHANTELL Amino Acids 30 ml 02/21/19 22:00 03/02/19 05:50 Prosource No Carb Liquid Pkt PO 30 ml TID CHANTELL Administration Apixaban 2.5 mg 02/21/19 22:00 03/02/19 11:59 Eliquis - PO Not Given BID CHANTELL Atorvastatin Calcium 20 mg 02/21/19 22:00 03/01/19 21:34 Lipitor - PO Not Given HS CHANTELL Collagenase 1 applic 02/22/19 10:00 03/02/19 11:14 Santyl - TP 1 applic DAILY CHANTELL Administration Protocol Escitalopram Oxalate 10 mg 02/22/19 10:00 03/02/19 11:59 Lexapro - PO Not Given DAILY CHANTELL Norepinephrine Bitartrate 8, 500 mls @ 18.75 mls/hr 02/23/19 12:45 03/02/19 12:00 000 mcg/ Dextrose IV 8 mcg/min TITR CHANTELL 30 mls/hr Administration Protocol 5 MCG/MIN Ceftriaxone Sodium 2 gm/ 100 mls @ 200 mls/hr 02/25/19 10:00 03/02/19 11:12 Dextrose IVPB 200 mls/hr DAILY CHANTELL Administration Protocol Metronidazole 500 mg in 100 mls @ 100 mls/hr 02/24/19 18:00 03/02/19 11:57 Flagyl 500mg Premixed Ivpb - IVPB 100 mls/hr Q8H-IV CHAN[facility] Administration Insulin Aspart 1 vial 06/04/19 10:00 03/02/19 07:10 Novolog Vial Sliding Scale - SQ Not Given BIDAC [facility] Protocol Lactobacillus Acidophilus 1 tab 02/22/19 10:00 03/02/19 11:59 Bacid - PO Not Given DAILY [facility]AN[facility] Midodrine 10 mg 03/02/19 14:00 Proamatine - PO TID-MID CHAN[facility] Morphine Sulfate 2 mg 02/28/19 22:48 03/02/19 05:34 Morphine Sulfate IVPUSH 2 mg Q4H PRN Administration PAIN LEVEL 6-10 Multivitamins/Minerals/Vitamin C 1 tab 02/22/19 10:00 03/02/19 11:59 Tab-A-Vit - PO Not Given DAILY [facility]AN[facility] Tamsulosin HCl 0.4 mg 02/21/19 22:00 03/01/19 21:34 Flomax - PO Not Given HS [facility] ASSESSMENT/PLAN: Pts brother, Koffi Silva, called the Unit for information on the patient at 12: 00 noon today. States he was the patients primary foster care case manager for the last 20 years. Pts daughter Molly only recently became active in his care approx 1 year ago ( after over 10 years of no activity) and took over care because she was "next of kin". Koffi states concerns for the intentions of Molly's interest in her fathers health at this time. Koffi states there may be legal paperwork at [facility] . After contacting [facility], no legal documentation found. Once again, multiple calls placed to pts Daughter and friend, Butch, listed. No answer and no return call. Central line placed 02/22 which will need to be changed within the next 3-4 days #septic shock 2/2 DM gangrenous B/L feet infx, Infected sacral decub and scrotal ulcer, and GN bacteremia (proteus, prevotella) - requiring ICU and pressors, +L IJ. +Leukocytosis -old cx with E coli, ESBL, MRSA, and VRE. -contact isolation for MDRO -s/p Vanc and Zosyn in the ED, Gentamicin x1, Meropenem x2 in ICU -Bcx 02/21/19 growing GN cher - proteus and prevotella -ucx neg -wound cx E coli, morganella -Bcx 02/23/19 neg -ID consulted, Rangel -lactic acid resolved -palliative care consulted -c/w ceftriaxone 2g/flagyl d4, per ID recs -Aspiration precautions. -Levophed gtt 6, Titrate pressors to keep MAP>65. Continue to wean -vascular surgery consulted, Dr harry, for wound care. amputation indicated, but family not amenable. cont GOC -per ID no vanc, cx show no MRSA for >48hr #ESRD on HD (MWF) -nephro consulted (Dr. Henriquez) -HD as per nephro, done today susanmer held by nephro for low phos. #Acute on chronic anemia likely 2/2 ESRD -monitor H/H #Severe protein calorie malnutrition -albumin 1.1, prealbumin 3.5 -thin appearing, decreased muscle mass and fat -decreased overall PO intake -Encourage Magic cup, Ensure pudding for increased density of nutritional intake #COPD -keep SpO2>90% -Duonebs q6h PRN #Dm ISS BGM ACHS #H/o hypotension : c/w home midodrine monitor vitals # h/o afib c/w elequis 2.5 bid #FEN -Not on any standing fluids -replete prn -tolerating puree diet, per speech eval #Prophylaxis -Eliquis 2.5mg BID #Disposition -full code. Visit type - Emergency Visit Emergency Visit: No - New Patient This patient is new to me today: No - Critical Care Critical Care patient: Yes Total Critical Care Time (in minutes): 40 Critical Care Statement: The care of this patient involved high complexity decision making to prevent further life threatening deterioration of the patient 's condition and/or to evaluate & treat vital organ system(s) failure or risk of failure.
--- NOTE | 2019-03-02 17:39 | PN ---
Progress Note (short form) - Note Progress Note: Patient is lying in bed, demented patient . Vital Signs Temperature 97.8 F 03/02/19 08:00 Pulse Rate 86 03/02/19 14:00 Respiratory Rate 14 03/02/19 14:00 Blood Pressure 107/62 03/02/19 14:00 O2 Sat by Pulse Oximetry (%) 96 03/02/19 08:41 GENERAL: A&Ox0, lying in bed. ENT: Dry mucus membranes NECK: No JVD LUNGS: mildly coarse breath sounds, no wheezes HEART: RRR, systolic murmur noted on exam EXTREMITIES: 2+ pulses, no edema. contracted lower extremities. SKIN: bilateral gangrene lower ext down to the tendon on the left with purulent foul smelling discharge. Sacrum: Unstageble sacral ulcer CBCD WBC 12.4 K/mm3 (4.0-10.0) H 03/02/19 05:25 RBC 2.48 M/mm3 (4.00-5.60) L 03/02/19 05:25 Hgb 7.1 GM/dL (11.7-16.9) L 03/02/19 05:25 Hct 22.7 % (35.4-49) L 03/02/19 05:25 MCV 91.4 fl (80-96) 03/02/19 05:25 MCHC 31.3 g/dl (32.0-35.9) L 03/02/19 05:25 RDW 18.8 % (11.9-15.9) H 03/02/19 05:25 Plt Count 433 K/MM3 (134-434) 03/02/19 05:25 MPV 7.8 fl (7.5-11.1) 03/02/19 05:25 CMP Sodium 137 mmol/L (136-145) 03/02/19 05:25 Potassium 3.2 mmol/L (3.5-5.1) L 03/02/19 05:25 Chloride 100 mmol/L (98-107) 03/02/19 05:25 Carbon Dioxide 32 mmol/L (21-32) 03/02/19 05:25 Anion Gap 6 MMOL/L (8-16) L 03/02/19 05:25 BUN 11.7 mg/dL (7-18) 03/02/19 05:25 Creatinine 2.4 mg/dL (0.55-1.3) H 03/02/19 05:25 Random Glucose 130 mg/dL (74-106) H 03/02/19 05:25 Calcium 7.5 mg/dL (8.5-10.1) L 03/02/19 05:25 Total Bilirubin 0.2 mg/dL (0.2-1) 03/02/19 05:25 AST 5 U/L (15-37) L 03/02/19 05:25 ALT < 6 U/L (13-61) L 03/02/19 05:25 Alkaline Phosphatase 106 U/L (45-117) 03/02/19 05:25 Total Protein 4.9 g/dl (6.4-8.2) L 03/02/19 05:25 Albumin 1.1 g/dl (3.4-5.0) L 03/02/19 05:25 CARDIAC ENZYMES Troponin I < 0.02 ng/ml (0.00-0.05) 02/21/19 15:10 Current Medications Generic Name Dose Route Start Last Admin Trade Name Freq PRN Reason Stop Dose Admin Albuterol/Ipratropium 1 amp 02/21/19 19:04 Duoneb - NEB Q6H PRN SHORTNESS OF BREATH Allopurinol 100 mg 02/22/19 10:00 03/02/19 11:59 Zyloprim - PO Not Given DAILY CHANTELL Amino Acids 30 ml 02/21/19 22:00 03/02/19 17:03 Prosource No Carb Liquid Pkt PO Not Given TID CHANTELL Apixaban 2.5 mg 02/21/19 22:00 03/02/19 11:59 Eliquis - PO Not Given BID CHANTELL Atorvastatin Calcium 20 mg 02/21/19 22:00 03/01/19 21:34 Lipitor - PO Not Given HS CHANTELL Collagenase 1 applic 02/22/19 10:00 03/02/19 11:14 Santyl - TP 1 applic DAILY CHANTELL Administration Protocol Escitalopram Oxalate 10 mg 02/22/19 10:00 03/02/19 11:59 Lexapro - PO Not Given DAILY CHANTELL Norepinephrine Bitartrate 8, 500 mls @ 18.75 mls/hr 02/23/19 12:45 03/02/19 12:00 000 mcg/ Dextrose IV 8 mcg/min TITR CHANTELL 30 mls/hr Administration Protocol 5 MCG/MIN Ceftriaxone Sodium 2 gm/ 100 mls @ 200 mls/hr 02/25/19 10:00 03/02/19 11:12 Dextrose IVPB 200 mls/hr DAILY [facility] Administration Protocol Metronidazole 500 mg in 100 mls @ 100 mls/hr 02/24/19 18:00 03/02/19 17:06 Flagyl 500mg Premixed Ivpb - IVPB 100 mls/hr Q8H-IV CHANTELL Administration Insulin Aspart 1 vial 02/26/19 10:00 03/02/19 17:09 Novolog Vial Sliding Scale - SQ Not Given BIDAC [facility] Protocol Lactobacillus Acidophilus 1 tab 02/22/19 10:00 03/02/19 11:59 Bacid - PO Not Given DAILY [facility] Midodrine 10 mg 03/02/19 14:00 03/02/19 17:36 Proamatine - PO Not Given TID-MID [facility] Morphine Sulfate 2 mg 02/28/19 22:48 03/02/19 17:04 Morphine Sulfate IVPUSH 2 mg Q4H PRN Administration PAIN LEVEL 6-10 Multivitamins/Minerals/Vitamin C 1 tab 02/22/19 10:00 03/02/19 11:59 Tab-A-Vit - PO Not Given DAILY [facility] Tamsulosin HCl 0.4 mg 02/21/19 22:00 03/01/19 21:34 Flomax - PO Not Given HS [facility] Home Medications Medication Instructions Recorded Albuterol 2.5/Ipratropium 0.5 1 amp NEB Q6H PRN #0 amp 07/12/17 [Duoneb -] Allopurinol [Zyloprim -] 100 mg PO DAILY tablet 07/12/17 Atorvastatin Ca [Lipitor] 20 mg PO HS tablet 07/12/17 Collagenase Clostridium Hist. 1 applic TP DAILY tube 09/06/18 [Santyl -] Albuterol Sulfate [Proair Hfa] 2 puff IH Q6H PRN 10/29/18 Escitalopram Oxalate [Lexapro -] 10 mg PO DAILY 10/29/18 Folic Acid/Vit B Complex and C 1 each PO DAILY 10/29/18 [Dialyvite Tablet] Midodrine HCl 10 mg PO MOWEFR 10/29/18 Sevelamer Carbonate [Renvela -] 1,600 mg PO TID 10/29/18 Tamsulosin HCl [Flomax] 0.4 mg PO HS 10/29/18 Insulin Sliding Scale [Novolog 1 vial SQ TIDAC #1 vial 11/17/18 Vial Sliding Scale -] Apixaban [Eliquis -] 5 mg PO BID #30 tablet MDD 2 11/19/18 Collagenase Clostridium Hist. 1 applic TP DAILY #1 tube 01/17/19 [Santyl -] Amoxicillin/Potassium Clav 1 each PO DAILY #7 tablet 02/06/19 [Augmentin 500-125 Tablet] Megestrol Acetate Oral Susp 400 mg PO DAILY #20 cup 02/06/19 [Megace Liquid -] Protein Supplement [Prosource] 275 gm PO TID #60 powder 02/06/19 Lactobacillus Acidophilus [Bacid -] 1 tab PO DAILY #60 tab 02/19/19 Midodrine HCl [Proamatine -] 5 mg PO SuTuThSa #60 tablet 02/19/19 traMADol HCL [Ultram -] 50 mg PO Q6H PRN #60 tablet MDD 4 02/19/19 Assessment and plan: Patient is a 73 y/o male with PMHx of dementia, CVA, DM, COPD, ESRD, gout, HTN, HLP, recent admission 01/31-02/19 during which he was treated for sepsis due to infected b/l LEs gangrenous ulcers. He was sent from [place] due to poor po intake, and non healing wounds # Gangrenous b/l LEs. with septic shock . continue IV pressors Levophed on taper , and IV antibiotics Rocephin/flagyl, Vascular surgeon on the case unable to get im touch with the family. # Septic shock due to bacteremia to Proteus Morganii continue IV antibiotics and pressors # Infected sacral decub and scrotal ulcer continue IV antibiotics # ESRD on HD , nephro on the case # DM with sliding scale with coverage # hypophosphatemia repleted # hypokalemia repleted Case d/w dr. Khan , appreciate help. No response from the daughter or any other family members , ethics on the case. Visit type - Emergency Visit Emergency Visit: No - New Patient This patient is new to me today: No - Critical Care Critical Care patient: No - Discharge Referral Referred to [facility] No
[2019-03-02] MEDS: TAMSULOSIN HCL 0.4 MG CAP PO SCH (22:30)
[2019-03-02] MEDS: ATORVASTATIN CA 20 MG TABLET (FP) PO SCH (22:30)
[2019-03-03] MEDS: AMINO ACIDS/PROTEIN HYDROLYS 30 ML LIQUID.PKT PO SCH ×3 (06:30→21:59)
--- NOTE | 2019-03-03 06:46 | PN ---
Physical Exam: SUBJECTIVE: Patient seen and examined at bed side in ICU , hypotensive on levofed @ 8 NGT was pulled by pt ad replaced by ICU team. OBJECTIVE: Vital Signs Period Temp Pulse Resp BP Sys/Zamorano Pulse Ox Last 24 Hr 97.6 F-98.8 F 78-97 12-21 88-133/43-71 96-98 GENERAL: A&Ox0, lying in bed. arousable but lethargic ENT: Dry mucus membranes, NECK: No JVD LUNGS: mildly coarse breath sounds, no wheezes HEART: RRR, systolic murmur LUSB EXTREMITIES: 2+ pulses, no edema. contracted lower extremities. SKIN: bilateral gangrene lower ext down to the tendon on the left with purulent foul smelling discharge. Sacrum: Un stageble sacral ulcer Laboratory Results - last 24 hr 03/02/19 03/02/19 03/02/19 05:25 05:25 10:15 WBC 12.4 H RBC 2.48 L Hgb 7.1 L Hct 22.7 L MCV 91.4 MCH 28.6 MCHC 31.3 L RDW 18.8 H Plt Count 433 MPV 7.8 Absolute Neuts (auto) 9.8 H Neutrophils % 78.7 Lymphocytes % 12.3 D Monocytes % 7.9 Eosinophils % 0.6 D Basophils % 0.5 Nucleated RBC % 0 Sodium 137 Potassium 3.2 L Chloride 100 Carbon Dioxide 32 Anion Gap 6 L BUN 11.7 Creatinine 2.4 H Est GFR (CKD-EPI)AfAm 29.69 Est GFR (CKD-EPI)NonAf 25.61 POC Glucometer Random Glucose 130 H Calcium 7.5 L Total Bilirubin 0.2 AST 5 L ALT < 6 L Alkaline Phosphatase 106 Total Protein 4.9 L Albumin 1.1 L Blood Type A POSITIVE Antibody Screen Negative 03/02/19 17:08 WBC RBC Hgb Hct MCV MCH MCHC RDW Plt Count MPV Absolute Neuts (auto) Neutrophils % Lymphocytes % Monocytes % Eosinophils % Basophils % Nucleated RBC % Sodium Potassium Chloride Carbon Dioxide Anion Gap BUN Creatinine Est GFR (CKD-EPI)AfAm Est GFR (CKD-EPI)NonAf POC Glucometer 130 Random Glucose Calcium Total Bilirubin AST ALT Alkaline Phosphatase Total Protein Albumin Blood Type Antibody Screen Active Medications Generic Name Dose Route Start Last Admin Trade Name Freq PRN Reason Stop Dose Admin Albuterol/Ipratropium 1 amp 02/21/19 19:04 Duoneb - NEB Q6H PRN SHORTNESS OF BREATH Allopurinol 100 mg 02/22/19 10:00 03/02/19 11:59 Zyloprim - PO Not Given DAILY CHANTELL Amino Acids 30 ml 02/21/19 22:00 03/02/19 22:30 Prosource No Carb Liquid Pkt PO Not Given TID CHANTELL Apixaban 2.5 mg 02/21/19 22:00 03/02/19 22:30 Eliquis - PO Not Given BID CHANTELL Atorvastatin Calcium 20 mg 02/21/19 22:00 03/02/19 22:30 Lipitor - PO Not Given HS CHANTELL Collagenase 1 applic 02/22/19 10:00 03/02/19 11:14 Santyl - TP 1 applic DAILY CHANTELL Administration Protocol Escitalopram Oxalate 10 mg 02/22/19 10:00 03/02/19 11:59 Lexapro - PO Not Given DAILY CHANTELL Norepinephrine Bitartrate 8, 500 mls @ 18.75 mls/hr 02/23/19 12:45 03/02/19 12:00 000 mcg/ Dextrose IV 8 mcg/min TITR CHANTELL 30 mls/hr Administration Protocol 5 MCG/MIN Ceftriaxone Sodium 2 gm/ 100 mls @ 200 mls/hr 02/25/19 10:00 03/02/19 11:12 Dextrose IVPB 200 mls/hr DAILY CHANTELL Administration Protocol Metronidazole 500 mg in 100 mls @ 100 mls/hr 02/24/19 18:00 03/03/19 01:12 Flagyl 500mg Premixed Ivpb - IVPB 100 mls/hr Q8H-IV CHANTELL Administration Insulin Aspart 1 vial 02/26/19 10:00 03/02/19 17:09 Novolog Vial Sliding Scale - SQ Not Given BIDAC [facility] Protocol Lactobacillus Acidophilus 1 tab 02/22/19 10:00 03/02/19 11:59 Bacid - PO Not Given DAILY CHANTELL Midodrine 10 mg 03/02/19 14:00 03/02/19 17:36 Proamatine - PO Not Given TID-MID CHANTELL Morphine Sulfate 2 mg 02/28/19 22:48 03/02/19 17:04 Morphine Sulfate IVPUSH 2 mg Q4H PRN Administration PAIN LEVEL 6-10 Multivitamins/Minerals/Vitamin C 1 tab 02/22/19 10:00 03/02/19 11:59 Tab-A-Vit - PO Not Given DAILY [facility] Tamsulosin HCl 0.4 mg 02/21/19 22:00 03/02/19 22:30 Flomax - PO Not Given HS CHANTELL ASSESSMENT/PLAN: 73 y/o male with PMH of ESRD, anemia, COPD,dementia who was sent form [place] due to poor po intake, and worsening of ulcers. Now in septic shock 2/2 DM gangrenous B/L feet infx, Infected sacral decub and scrotal ulcer, and GN bacteremia , requiring ICU and pressors #septic shock 2/2 DM gangrenous B/L feet infx, Infected sacral decub and scrotal ulcer, and GN bacteremia (proteus, prevotella) - * isolation precaution * cont abx ceftriaxone and flagyl per ID * lactic acid resolved * palliative care consulted * Aspiration precautions. * Levophed gtt 8, Titrate pressors to keep MAP>65. currently trying to wean down * vascular surgery consulted, Dr harry, for wound care. amputation indicated, but family not amenable. cont GOC #ESRD on HD (MWF) * nephro consulted (Dr. Henriquez) * HD as per nephro, done yesterday * susanmer held by nephro for low phos. #Acute on chronic anemia likely 2/2 ESRD * monitor H/H #Severe protein calorie malnutrition -albumin 1.1, prealbumin 3.5 * thin appearing, decreased muscle mass and fat * decreased overall PO intake * calorie count in process #COPD * maintain SpO2>90% * Duonebs q6h PRN # HLD * lipitor 20 HS # BPH on flomax #Dm * ISS * BGM ACHS * diabetic diet #H/o hypotension : * c/w home midodrine (increased to 10 TID) * monitor vitals * on levofed @ 8 # h/o afib * c/w elequis 2.5 bid #FEN * Not on any standing fluids * replete prn * tube feed nepro, nourishment routine #Prophylaxis * Eliquis 2.5mg BID #Dispo * monitor in ICU #code status :full code Visit type - Emergency Visit Emergency Visit: Yes ED Registration Date: 02/21/19 Care time: The patient presented to the Emergency Department on the above date and was hospitalized for further evaluation of their emergent condition. - New Patient This patient is new to me today: Yes Date on this admission: 03/03/19 - Critical Care Critical Care patient: No
[2019-03-03 06:57] LABS: ALBUMIN 1.2 g/dl (3.4-5.0); ALK PHOS 110 U/L (45-117); ANION GAP 6 MMOL/L (8-16); BILIRUBIN,TOTAL 0.2 mg/dL (0.2-1); BLOOD UREA NITROGEN 8.2 mg/dL (7-18); CALCIUM 7.8 mg/dL (8.5-10.1); CHLORIDE 100 mmol/L (98-107); CO2 32 mmol/L (21-32); CREATININE 1.8 mg/dL (0.55-1.3); GLUCOSE,RANDOM 102 mg/dL (74-106); MAGNESIUM 1.7 mg/dL (1.8-2.4); PHOSPHOROUS 1.3 mg/dL (2.5-4.9); POTASSIUM 3.2 mmol/L (3.5-5.1); SGOT/AST 7 U/L (15-37); SGPT/ALT < 6 U/L (13-61); SODIUM 139 mmol/L (136-145); TOT PROT 5.4 g/dl (6.4-8.2)
[2019-03-03] MEDS: INSULIN SLIDING SCALE (NOVOLOG) 1 VIAL SQ SCH ×2 (07:03→17:07)
[2019-03-03 07:36] LABS: HEMOGLOBIN 7.9 GM/dL (11.7-16.9); MCHC 31.5 g/dl (32.0-35.9); MEAN CELL VOLUME 92.1 fl (80-96); RBC 2.72 M/mm3 (4.00-5.60); RDW 18.4 % (11.9-15.9); WHITE BLOOD COUNT 9.8 K/mm3 (4.0-10.0)
[2019-03-03] MEDS ORDERED: NAPH,MB-DB/K PH,MBDB POWDER PACKET NGT ONE (08:04)
[2019-03-03] MEDS ORDERED: MAGNESIUM SULF 50% (8.12 MEQ/2 ML-1 GM VIAL) IVPB ONE (08:51)
--- NOTE | 2019-03-03 08:54 | PN ---
Physical Exam: SUBJECTIVE: Patient seen and examined at bedside- patient pulled out his NGT overnight and a new one had to be placed; patient on levophed of 8 currently and trying to wean down OBJECTIVE: Vital Signs Period Temp Pulse Resp BP Sys/Zamorano Pulse Ox Last 24 Hr 97.6 F-98.8 F 78-97 12-21 95-133/43-71 98 GENERAL: The patient has baseline dementia; lethargic but arousable EYES: PEERLA: EOMI no scleral icterus NECK: no JVD; no lymphadenopathy LUNGS:coarse breath sounds B/L; no rales,/rhonchi or wheezing appreciated HEART: RRR s1 s2; systolic murmur noted ABDOMEN: Soft, nontender; nondistended +BS in all 4 quadrants EXTREMITIES:bilateral gangrene lower ext down to the tendon on the left with unstageble sacral ulcer NEUROLOGICAL: follows basic commands PSYCH: Normal mood, normal affect. SKIN: Warm, dry, normal turgor, no rashes or lesions noted Laboratory Results - last 24 hr 03/02/19 03/02/19 03/02/19 05:25 10:15 17:08 WBC RBC Hgb Hct MCV MCH MCHC RDW Plt Count 433 MPV Sodium Potassium Chloride Carbon Dioxide Anion Gap BUN Creatinine Est GFR (CKD-EPI)AfAm Est GFR (CKD-EPI)NonAf POC Glucometer 130 Random Glucose Calcium Phosphorus Magnesium Total Bilirubin AST ALT Alkaline Phosphatase Total Protein Albumin Blood Type A POSITIVE Antibody Screen Negative 03/03/19 03/03/19 05:30 05:30 WBC 9.8 RBC 2.72 L Hgb 7.9 L Hct 25.0 L MCV 92.1 MCH 29.0 MCHC 31.5 L RDW 18.4 H Plt Count MPV 8.0 Sodium 139 Potassium 3.2 L Chloride 100 Carbon Dioxide 32 Anion Gap 6 L BUN 8.2 Creatinine 1.8 H Est GFR (CKD-EPI)AfAm 42.03 Est GFR (CKD-EPI)NonAf 36.27 POC Glucometer Random Glucose 102 Calcium 7.8 L Phosphorus 1.3 L Magnesium 1.7 L Total Bilirubin 0.2 AST 7 L ALT < 6 L Alkaline Phosphatase 110 Total Protein 5.4 L Albumin 1.2 L Blood Type Antibody Screen Active Medications Generic Name Dose Route Start Last Admin Trade Name Freq PRN Reason Stop Dose Admin Albuterol/Ipratropium 1 amp 02/21/19 19:04 Duoneb - NEB Q6H PRN SHORTNESS OF BREATH Allopurinol 100 mg 02/22/19 10:00 03/02/19 11:59 Zyloprim - PO Not Given DAILY CHANTELL Amino Acids 30 ml 02/21/19 22:00 03/03/19 06:30 Prosource No Carb Liquid Pkt PO Not Given TID CHANTELL Apixaban 2.5 mg 02/21/19 22:00 03/02/19 22:30 Eliquis - PO Not Given BID CHANTELL Atorvastatin Calcium 20 mg 02/21/19 22:00 03/02/19 22:30 Lipitor - PO Not Given HS CHANTELL Collagenase 1 applic 02/22/19 10:00 03/02/19 11:14 Santyl - TP 1 applic DAILY CHANTELL Administration Protocol Escitalopram Oxalate 10 mg 02/22/19 10:00 03/02/19 11:59 Lexapro - PO Not Given DAILY CHANTELL Norepinephrine Bitartrate 8, 500 mls @ 18.75 mls/hr 02/23/19 12:45 03/02/19 12:00 000 mcg/ Dextrose IV 8 mcg/min TITR CHANTELL 30 mls/hr Administration Protocol 5 MCG/MIN Ceftriaxone Sodium 2 gm/ 100 mls @ 200 mls/hr 02/25/19 10:00 03/02/19 11:12 Dextrose IVPB 200 mls/hr DAILY CHANTELL Administration Protocol Metronidazole 500 mg in 100 mls @ 100 mls/hr 02/24/19 18:00 03/03/19 01:12 Flagyl 500mg Premixed Ivpb - IVPB 100 mls/hr Q8H-IV CHANTELL Administration Insulin Aspart 1 vial 02/26/19 10:00 03/03/19 07:03 Novolog Vial Sliding Scale - SQ Not Given BIDAC CHANTELL Protocol Lactobacillus Acidophilus 1 tab 02/22/19 10:00 03/02/19 11:59 Bacid - PO Not Given DAILY CHANTELL Magnesium Sulfate 2 gm 03/03/19 08:51 Magnesium Sulfate IVPB 03/03/19 08:52 ONCE ONE Midodrine 10 mg 03/02/19 14:00 03/02/19 17:36 Proamatine - PO Not Given TID-MID CHANTELL Morphine Sulfate 2 mg 02/28/19 22:48 03/02/19 17:04 Morphine Sulfate IVPUSH 2 mg Q4H PRN Administration PAIN LEVEL 6-10 Multivitamins/Minerals/Vitamin C 1 tab 02/22/19 10:00 03/02/19 11:59 Tab-A-Vit - PO Not Given DAILY [facility] Tamsulosin HCl 0.4 mg 02/21/19 22:00 03/02/19 22:30 Flomax - PO Not Given HS [facility] ASSESSMENT/PLAN: 73 y/o male with PMH of ESRD, anemia, COPD,dementia who was sent form [place] due to poor po intake, and worsening of ulcers. Now in septic shock 2/2 DM gangrenous B/L feet infx, Infected sacral decub and scrotal ulcer, and GN bacteremia , requiring ICU and pressors #septic shock 2/2 DM gangrenous B/L feet infx, Infected sacral decub and scrotal ulcer, and GN bacteremia (proteus, prevotella) - -old cx with E coli, ESBL, MRSA, and VRE. -contact isolation for MDRO -ID consulted, Rangel -lactic acid resolved -palliative care consulted -c/w ceftriaxone 2g/flagyl d5, per ID recs -Aspiration precautions. -Levophed gtt 8, Titrate pressors to keep MAP>65. currently trying to wean down -vascular surgery consulted, Dr harry, for wound care. amputation indicated, but family not amenable. cont GOC #ESRD on HD (MWF) -nephro consulted (Dr. Henriquez) -HD as per nephro, done yesterday ned held by nephro for low phos. #Acute on chronic anemia likely 2/2 ESRD -monitor H/H #Severe protein calorie malnutrition -albumin 1.1, prealbumin 3.5 -thin appearing, decreased muscle mass and fat -decreased overall PO intake -calorie count in process #COPD -keep SpO2>90% -Duonebs q6h PRN #Dm ISS BGM ACHS #H/o hypotension : c/w home midodrine (increased to 10 TID) monitor vitals # h/o afib c/w elequis 2.5 bid #FEN -Not on any standing fluids -replete prn -tolerating puree diet, per speech eval #Prophylaxis -Eliquis 2.5mg BID #Disposition -full code. Problem List - Problems (1) ESRD (end stage renal disease) on dialysis Code(s): N18.6 - END STAGE RENAL DISEASE; Z99.2 - DEPENDENCE ON RENAL DIALYSIS (2) Gangrene of both feet Code(s): I96 - GANGRENE, NOT ELSEWHERE CLASSIFIED (3) Sacral decubitus ulcer Code(s): L89.159 - PRESSURE ULCER OF SACRAL REGION, UNSPECIFIED STAGE (4) Sepsis Code(s): A41.9 - SEPSIS, UNSPECIFIED ORGANISM (5) CKD (chronic kidney disease) Code(s): N18.9 - CHRONIC KIDNEY DISEASE, UNSPECIFIED (6) COPD (chronic obstructive pulmonary disease) Code(s): J44.9 - CHRONIC OBSTRUCTIVE PULMONARY DISEASE, UNSPECIFIED Visit type - Emergency Visit Emergency Visit: Yes ED Registration Date: 02/21/19 Care time: The patient presented to the Emergency Department on the above date and was hospitalized for further evaluation of their emergent condition. - New Patient This patient is new to me today: Yes Date on this admission: 03/03/19 - Critical Care Critical Care patient: Yes Total Critical Care Time (in minutes): 35 Critical Care Statement: The care of this patient involved high complexity decision making to prevent further life threatening deterioration of the patient 's condition and/or to evaluate & treat vital organ system(s) failure or risk of failure.
[2019-03-03] MEDS ORDERED: DEXTROSE 5%-WATER 100 ML IVPB ONE (09:01)
[2019-03-03] MEDS: CEFTRIAXONE 2 GM in DEXTROSE 5%-WATER 100 ML IVPB SCH (09:26)
[2019-03-03] MEDS: MIDODRINE HCL 5 MG TABLET PO SCH ×3 (09:27→17:59)
[2019-03-03] MEDS: APIXABAN 2.5 MG TABLET PO SCH ×2 (09:27→21:58)
[2019-03-03] MEDS: MULTIVITAMINS (DAILY MVI) TABLET (FP) PO SCH (09:27)
[2019-03-03] MEDS: ESCITALOPRAM OXALATE 10 MG TABLET (FP) PO SCH (09:27)
[2019-03-03] MEDS: ALLOPURINOL 100 MG TABLET (FP) PO SCH (09:27)
[2019-03-03] MEDS: LACTOBACILLUS ACIDOPHILUS 1 TABLET PO SCH (09:27)
[2019-03-03] MEDS: COLLAGENASE CLOSTRIDIUM HIST. 30 GRAMS TUBE TP SCH (09:28)
[2019-03-03] MEDS ORDERED: POTASSIUM CHLORIDE ORAL LIQUID 20 MEQ/15 ML PO ONE (12:37)
--- NOTE | 2019-03-03 12:41 | PN ---
Progress Note, Physician History of Present Illness: Pt seen and examined at bedside. He remains in the ICU. He remains hypotensive. - Current Medication List Current Medications: Active Medications Albuterol/Ipratropium (Duoneb -) 1 amp NEB Q6H PRN PRN Reason: SHORTNESS OF BREATH Allopurinol (Zyloprim -) 100 mg PO DAILY CHANTELL Last Admin: 03/03/19 09:27 Dose: 100 mg Amino Acids (Prosource No Carb Liquid Pkt) 30 ml PO TID CHANTELL Last Admin: 03/03/19 06:30 Dose: Not Given Apixaban (Eliquis -) 2.5 mg PO BID CHANTELL Last Admin: 03/03/19 09:27 Dose: 2.5 mg Atorvastatin Calcium (Lipitor -) 20 mg PO HS CHANTELL Last Admin: 03/02/19 22:30 Dose: Not Given Collagenase (Santyl -) 1 applic TP DAILY CHANTELL; Protocol Last Admin: 03/03/19 09:28 Dose: 1 applic Escitalopram Oxalate (Lexapro -) 10 mg PO DAILY CHANTELL Last Admin: 03/03/19 09:27 Dose: 10 mg Norepinephrine Bitartrate 8, (000 mcg/ Dextrose) 500 mls @ 18.75 mls/hr IV TITR CHANTELL; Protocol Last Titration: 03/03/19 12:03 Dose: 5 mcg/min, 18.75 mls/hr Ceftriaxone Sodium 2 gm/ (Dextrose) 100 mls @ 200 mls/hr IVPB DAILY CHANTELL; Protocol Last Admin: 03/03/19 09:26 Dose: 200 mls/hr Metronidazole (Flagyl 500mg Premixed Ivpb -) 500 mg in 100 mls @ 100 mls/hr IVPB Q8H-IV CHANTELL Last Admin: 03/03/19 09:26 Dose: 100 mls/hr Insulin Aspart (Novolog Vial Sliding Scale -) 1 vial SQ BIDAC CHANTELL; Protocol Last Admin: 03/03/19 07:03 Dose: Not Given Lactobacillus Acidophilus (Bacid -) 1 tab PO DAILY CHANTELL Last Admin: 03/03/19 09:27 Dose: 1 tab Midodrine (Proamatine -) 10 mg PO TID-MID CHANTELL Last Admin: 03/03/19 09:27 Dose: 10 mg Morphine Sulfate (Morphine Sulfate) 2 mg IVPUSH Q4H PRN PRN Reason: PAIN LEVEL 6-10 Last Admin: 03/02/19 17:04 Dose: 2 mg Multivitamins/Minerals/Vitamin C (Tab-A-Vit -) 1 tab PO DAILY CHANTELL Last Admin: 03/03/19 09:27 Dose: 1 tab Tamsulosin HCl (Flomax -) 0.4 mg PO HS CHANTELL Last Admin: 03/02/19 22:30 Dose: Not Given - Objective Vital Signs: Vital Signs Temperature 97.4 F L 03/03/19 08:00 Pulse Rate 87 03/03/19 12:00 Respiratory Rate 15 03/03/19 12:00 Blood Pressure 121/68 03/03/19 12:00 O2 Sat by Pulse Oximetry (%) 98 03/03/19 09:00 Constitutional: Yes: Calm Eyes: Yes: Conjunctiva Clear HENT: Yes: Atraumatic Cardiovascular: Yes: S1, S2 Respiratory: Yes: On Nasal O2 Gastrointestinal: Yes: Soft Genitourinary: Yes: Incontinence Musculoskeletal: Yes: Muscle Weakness Edema: No Neurological: Yes: Confusion Labs: CBC, BMP 03/03/19 05:30 03/03/19 05:30 INR, PTT INR 1.44 (0.83-1.09) H 02/22/19 05:40 Assessment/Plan Current Medications Generic Name Dose Route Start Last Admin Trade Name Kassandra PRN Reason Stop Dose Admin Albuterol/Ipratropium 1 amp 02/21/19 19:04 Duoneb - NEB Q6H PRN SHORTNESS OF BREATH Allopurinol 100 mg 02/22/19 10:00 03/03/19 09:27 Zyloprim - PO 100 mg DAILY CHANTELL Administration Amino Acids 30 ml 02/21/19 22:00 03/03/19 06:30 Prosource No Carb Liquid Pkt PO Not Given TID CHANTELL Apixaban 2.5 mg 02/21/19 22:00 03/03/19 09:27 Eliquis - PO 2.5 mg BID CHANTELL Administration Atorvastatin Calcium 20 mg 02/21/19 22:00 03/02/19 22:30 Lipitor - PO Not Given HS CHANTELL Collagenase 1 applic 02/22/19 10:00 03/03/19 09:28 Santyl - TP 1 applic DAILY CHANTELL Administration Protocol Escitalopram Oxalate 10 mg 02/22/19 10:00 06/09/19 09:27 Lexapro - PO 10 mg DAILY CHANTELL Administration Norepinephrine Bitartrate 8, 500 mls @ 18.75 mls/hr 02/23/19 12:45 03/03/19 12:03 000 mcg/ Dextrose IV 5 mcg/min TITR CHANTELL 18.75 mls/hr Titration Protocol 5 MCG/MIN Ceftriaxone Sodium 2 gm/ 100 mls @ 200 mls/hr 02/25/19 10:00 03/03/19 09:26 Dextrose IVPB 200 mls/hr DAILY CHANTELL Administration Protocol Metronidazole 500 mg in 100 mls @ 100 mls/hr 02/24/19 18:00 03/03/19 09:26 Flagyl 500mg Premixed Ivpb - IVPB 100 mls/hr Q8H-IV CHANTELL Administration Insulin Aspart 1 vial 02/26/19 10:00 03/03/19 07:03 Novolog Vial Sliding Scale - SQ Not Given BIDAC CHANTELL Protocol Lactobacillus Acidophilus 1 tab 02/22/19 10:00 03/03/19 09:27 Bacid - PO 1 tab DAILY CHANTELL Administration Midodrine 10 mg 03/02/19 14:00 03/03/19 09:27 Proamatine - PO 10 mg TID-MID CHANTELL Administration Morphine Sulfate 2 mg 02/28/19 22:48 03/02/19 17:04 Morphine Sulfate IVPUSH 2 mg Q4H PRN Administration PAIN LEVEL 6-10 Multivitamins/Minerals/Vitamin C 1 tab 02/22/19 10:00 03/03/19 09:27 Tab-A-Vit - PO 1 tab DAILY CHANTELL Administration Tamsulosin HCl 0.4 mg 02/21/19 22:00 03/02/19 22:30 Flomax - PO Not Given HS CHANTELL Impression 1. ESRD 2. gangrene 3. DM 4. hyperlipidemia 5. HTN 6. gout 7. proteinuria 8. hypotension 9. sepsis Plan - pt had HD yesterday - bp is still low - vascular follow up - wound care - family still refusing surgical intervention - renal diet
--- NOTE | 2019-03-03 12:56 | PN ---
Teaching Attending Note Name of Resident: Maurizio Shoemaker ATTENDING PHYSICIAN STATEMENT I saw and evaluated the patient. I reviewed the resident's note and discussed the case with the resident. I agree with the resident's findings and plan as documented. SUBJECTIVE: Patient is in icu, with no new changes. OBJECTIVE: Vital Signs Temperature 97.4 F L 03/03/19 08:00 Pulse Rate 87 03/03/19 12:00 Respiratory Rate 15 03/03/19 12:00 Blood Pressure 121/68 03/03/19 12:00 O2 Sat by Pulse Oximetry (%) 98 03/03/19 09:00 GENERAL: A&Ox0, lying in bed. ENT: Dry mucus membranes, NECK: No JVD LUNGS: mildly coarse breath sounds, no wheezes HEART: RRR, systolic murmur noted on exam EXTREMITIES: 2+ pulses, no edema. contracted lower extremities. SKIN: bilateral gangrene lower ext down to the tendon on the left with purulent foul smelling discharge. Sacrum: Unstageble sacral ulcer CBCD WBC 9.8 K/mm3 (4.0-10.0) 03/03/19 05:30 RBC 2.72 M/mm3 (4.00-5.60) L 03/03/19 05:30 Hgb 7.9 GM/dL (11.7-16.9) L 03/03/19 05:30 Hct 25.0 % (35.4-49) L 03/03/19 05:30 MCV 92.1 fl (80-96) 03/03/19 05:30 MCHC 31.5 g/dl (32.0-35.9) L 03/03/19 05:30 RDW 18.4 % (11.9-15.9) H 03/03/19 05:30 Plt Count 433 K/MM3 (134-434) 03/02/19 05:25 MPV 8.0 fl (7.5-11.1) 03/03/19 05:30 CMP Sodium 139 mmol/L (136-145) 03/03/19 05:30 Potassium 3.2 mmol/L (3.5-5.1) L 03/03/19 05:30 Chloride 100 mmol/L (98-107) 03/03/19 05:30 Carbon Dioxide 32 mmol/L (21-32) 03/03/19 05:30 Anion Gap 6 MMOL/L (8-16) L 03/03/19 05:30 BUN 8.2 mg/dL (7-18) 03/03/19 05:30 Creatinine 1.8 mg/dL (0.55-1.3) H 03/03/19 05:30 Random Glucose 102 mg/dL (74-106) 03/03/19 05:30 Calcium 7.8 mg/dL (8.5-10.1) L 03/03/19 05:30 Total Bilirubin 0.2 mg/dL (0.2-1) 03/03/19 05:30 AST 7 U/L (15-37) L 03/03/19 05:30 ALT < 6 U/L (13-61) L 03/03/19 05:30 Alkaline Phosphatase 110 U/L (45-117) 03/03/19 05:30 Total Protein 5.4 g/dl (6.4-8.2) L 03/03/19 05:30 Albumin 1.2 g/dl (3.4-5.0) L 03/03/19 05:30 CARDIAC ENZYMES Troponin I < 0.02 ng/ml (0.00-0.05) 02/21/19 15:10 Current Medications Generic Name Dose Route Start Last Admin Trade Name Freq PRN Reason Stop Dose Admin Albuterol/Ipratropium 1 amp 02/21/19 19:04 Duoneb - NEB Q6H PRN SHORTNESS OF BREATH Allopurinol 100 mg 02/22/19 10:00 03/03/19 09:27 Zyloprim - PO 100 mg DAILY CHANTELL Administration Amino Acids 30 ml 02/21/19 22:00 03/03/19 06:30 Prosource No Carb Liquid Pkt PO Not Given TID CHANTELL Apixaban 2.5 mg 02/21/19 22:00 03/03/19 09:27 Eliquis - PO 2.5 mg BID CHANTELL Administration Atorvastatin Calcium 20 mg 02/21/19 22:00 03/02/19 22:30 Lipitor - PO Not Given HS CHNATELL Collagenase 1 applic 02/22/19 10:00 03/03/19 09:28 Santyl - TP 1 applic DAILY CHANTELL Administration Protocol Escitalopram Oxalate 10 mg 02/22/19 10:00 03/03/19 09:27 Lexapro - PO 10 mg DAILY CHANTELL Administration Norepinephrine Bitartrate 8, 500 mls @ 18.75 mls/hr 02/23/19 12:45 03/03/19 12:03 000 mcg/ Dextrose IV 5 mcg/min TITR CHANTELL 18.75 mls/hr Titration Protocol 5 MCG/MIN Ceftriaxone Sodium 2 gm/ 100 mls @ 200 mls/hr 02/25/19 10:00 03/03/19 09:26 Dextrose IVPB 200 mls/hr DAILY CHANTELL Administration Protocol Metronidazole 500 mg in 100 mls @ 100 mls/hr 02/24/19 18:00 03/03/19 09:26 Flagyl 500mg Premixed Ivpb - IVPB 100 mls/hr Q8H-IV CHANTELL Administration Insulin Aspart 1 vial 02/26/19 10:00 03/03/19 07:03 Novolog Vial Sliding Scale - SQ Not Given BIDAC [facility] Protocol Lactobacillus Acidophilus 1 tab 02/22/19 10:00 03/03/19 09:27 Bacid - PO 1 tab DAILY CHANTELL Administration Midodrine 10 mg 03/02/19 14:00 03/03/19 09:27 Proamatine - PO 10 mg TID-MID CHANTELL Administration Morphine Sulfate 2 mg 02/28/19 22:48 03/02/19 17:04 Morphine Sulfate IVPUSH 2 mg Q4H PRN Administration PAIN LEVEL 6-10 Multivitamins/Minerals/Vitamin C 1 tab 02/22/19 10:00 03/03/19 09:27 Tab-A-Vit - PO 1 tab DAILY CHANTELL Administration Tamsulosin HCl 0.4 mg 02/21/19 22:00 03/02/19 22:30 Flomax - PO Not Given HS [facility] Home Medications Medication Instructions Recorded Albuterol 2.5/Ipratropium 0.5 1 amp NEB Q6H PRN #0 amp 07/12/17 [Duoneb -] Allopurinol [Zyloprim -] 100 mg PO DAILY tablet 07/12/17 Atorvastatin Ca [Lipitor] 20 mg PO HS tablet 07/12/17 Collagenase Clostridium Hist. 1 applic TP DAILY tube 09/06/18 [Santyl -] Albuterol Sulfate [Proair Hfa] 2 puff IH Q6H PRN 10/29/18 Escitalopram Oxalate [Lexapro -] 10 mg PO DAILY 10/29/18 Folic Acid/Vit B Complex and C 1 each PO DAILY 10/29/18 [Dialyvite Tablet] Midodrine HCl 10 mg PO MOWEFR 10/29/18 Sevelamer Carbonate [Renvela -] 1,600 mg PO TID 10/29/18 Tamsulosin HCl [Flomax] 0.4 mg PO HS 10/29/18 Insulin Sliding Scale [Novolog 1 vial SQ TIDAC #1 vial 11/17/18 Vial Sliding Scale -] Apixaban [Eliquis -] 5 mg PO BID #30 tablet MDD 2 11/19/18 Collagenase Clostridium Hist. 1 applic TP DAILY #1 tube 01/17/19 [Santyl -] Amoxicillin/Potassium Clav 1 each PO DAILY #7 tablet 02/06/19 [Augmentin 500-125 Tablet] Megestrol Acetate Oral Susp 400 mg PO DAILY #20 cup 02/06/19 [Megace Liquid -] Protein Supplement [Prosource] 275 gm PO TID #60 powder 02/06/19 Lactobacillus Acidophilus [Bacid -] 1 tab PO DAILY #60 tab 02/19/19 Midodrine HCl [Proamatine -] 5 mg PO SuTuThSa #60 tablet 02/19/19 traMADol HCL [Ultram -] 50 mg PO Q6H PRN #60 tablet MDD 4 02/19/19 Microbiology 02/23/19 11:50 Blood - Peripheral Venous Blood Culture - Final NO GROWTH AFTER 5 DAYS INCUBATION 02/23/19 11:50 Blood - Peripheral Venous Blood Culture - Final NO GROWTH AFTER 5 DAYS INCUBATION 02/21/19 13:16 Blood - Peripheral Venous Blood Culture - Final Proteus Mirabilis Prevotella Melaninogenica 02/21/19 16:30 Foot - Left Heel Gram Stain - Final 02/21/19 16:30 Foot - Left Heel Wound Culture - Final Escherichia Coli [employer]ologist Morganella Morganii 02/21/19 15:40 Blood - Peripheral Venous Blood Culture - Final Proteus Mirabilis 02/21/19 14:50 Urine - Urine - Catheterized Urine Culture - Final NO GROWTH OBTAINED ASSESSMENT AND PLAN: Patient is a 73 y/o male with PMHx of dementia, CVA, DM, COPD, ESRD, gout, HTN, HLP, recent admission 01/31-02/19 during which he was treated for sepsis due to infected b/l LEs gangrenous ulcers. He was sent from [place] due to poor po intake, and non healing wounds. # Gangrenous b/l LEs. with septic shock . continue IV Levophed , continue IV antibiotics Rocephin/flagyl, Unable to reach the family for further care discussion.Vascular surgeon on the case unable to get im touch with the family as well. # Septic shock due to bacteremia to Proteus Morganii continue IV antibiotics and pressors # Infected sacral decub and scrotal ulcer continue IV antibiotics # ESRD on HD , nephro on the case # DM with sliding scale with coverage # wound care with Santyl Case d/w dr. Khan , appreciate help. No response from the daughter or any other family members , ethics on the case.
[2019-03-03 13:42] LABS: PLATELET COUNT 291 K/MM3 (134-434)
[2019-03-03] MEDS: NOREPINEPHRINE BITARTRATE 8,000 MCG in DEXTROSE 5%-WATER - 492 ML IV SCH (14:31)
[2019-03-03] MEDS: ATORVASTATIN CA 20 MG TABLET (FP) PO SCH (21:59)
[2019-03-03] MEDS: TAMSULOSIN HCL 0.4 MG CAP PO SCH (21:59)
[2019-03-04] MEDS: AMINO ACIDS/PROTEIN HYDROLYS 30 ML LIQUID.PKT PO SCH ×3 (05:54→21:27)
[2019-03-04 06:13] LABS: HEMATOCRIT 22.8 % (35.4-49); HEMOGLOBIN 7.1 GM/dL (11.7-16.9); MCH 28.6 pg (25.7-33.7); MCHC 31.3 g/dl (32.0-35.9); MEAN CELL VOLUME 91.2 fl (80-96); MEAN PLT VOLUME 7.9 fl (7.5-11.1); PLATELET COUNT 287 K/MM3 (134-434); RDW 18.7 % (11.9-15.9); WHITE BLOOD COUNT 11.9 K/mm3 (4.0-10.0)
[2019-03-04 06:18] LABS: BLOOD UREA NITROGEN 13.7 mg/dL (7-18); CALCIUM 7.6 mg/dL (8.5-10.1); CREATININE 2.2 mg/dL (0.55-1.3); POTASSIUM 3.6 mmol/L (3.5-5.1)
[2019-03-04] MEDS: INSULIN SLIDING SCALE (NOVOLOG) 1 VIAL SQ SCH ×2 (06:43→18:21)
--- NOTE | 2019-03-04 08:27 | PN ---
Physical Exam: SUBJECTIVE: Patient seen and examined at the bedside Pt reported to vomit and pulled out NG tube over the weekend. NG tube replaced. Will restart feeds today Pt continues to be on 2 mcq of levo overnight with mainlined MAPs over 65. Will attempt to wean off pressors today after giving 1 unit PRBC. Pt awake and alert. OBJECTIVE: Vital Signs Period Temp Pulse Resp BP Sys/Zamorano Pulse Ox Last 24 Hr 97.6 F 75-98 14-23 90-123/50-80 98-98 GENERAL: The patient is awake, alert, baseline dementia, in no acute distress. HEAD: Normal with no signs of trauma. EYES: PERRL, extraocular movements intact, sclera anicteric, conjunctiva clear. No ptosis. ENT: Ears normal, nares patent, oropharynx clear without exudates, moist mucous membranes. NECK: Trachea midline, full range of motion, supple. LUNGS: Breath sounds equal, clear to auscultation bilaterally, no wheezes, no crackles, no accessory muscle use. HEART: Regular rate and rhythm, S1, S2 without murmur, rub or gallop. ABDOMEN: Soft, nontender, nondistended, normoactive bowel sounds, no guarding, no rebound, no hepatosplenomegaly, no masses. EXTREMITIES: bilateral gangrene lower ext down to the tendon on the left with unstageble sacral ulcer NEUROLOGICAL: Cranial nerves II through XII grossly intact. Follows basic commands PSYCH: Normal mood, normal affect. SKIN: bilateral gangrene lower ext down to the tendon on the left with purulent foul smelling discharge. Unstageble sacral ulcer with Laboratory Results - last 24 hr 03/03/19 03/03/19 03/04/19 05:30 16:40 05:15 WBC 11.9 H RBC 2.50 L Hgb 7.1 L Hct 22.8 L MCV 91.2 MCH 28.6 MCHC 31.3 L RDW 18.7 H Plt Count 291 D MPV 7.9 Sodium Potassium Chloride Carbon Dioxide Anion Gap BUN Creatinine Est GFR (CKD-EPI)AfAm Est GFR (CKD-EPI)NonAf POC Glucometer 94 Random Glucose Calcium 03/04/19 05:15 WBC RBC Hgb Hct MCV MCH MCHC RDW Plt Count MPV Sodium 137 Potassium 3.6 Chloride 101 Carbon Dioxide 30 Anion Gap 6 L BUN 13.7 Creatinine 2.2 H Est GFR (CKD-EPI)AfAm 32.98 Est GFR (CKD-EPI)NonAf 28.45 POC Glucometer Random Glucose 96 Calcium 7.6 L Active Medications Generic Name Dose Route Start Last Admin Trade Name Freq PRN Reason Stop Dose Admin Albuterol/Ipratropium 1 amp 02/21/19 19:04 Duoneb - NEB Q6H PRN SHORTNESS OF BREATH Allopurinol 100 mg 02/22/19 10:00 03/03/19 09:27 Zyloprim - PO 100 mg DAILY CHANTELL Administration Amino Acids 30 ml 02/21/19 22:00 03/04/19 05:54 Prosource No Carb Liquid Pkt PO 30 ml TID CHANTELL Administration Apixaban 2.5 mg 02/21/19 22:00 03/03/19 21:58 Eliquis - PO 2.5 mg BID CHANTELL Administration Atorvastatin Calcium 20 mg 02/21/19 22:00 03/03/19 21:59 Lipitor - PO 20 mg HS CHANTELL Administration Collagenase 1 applic 02/22/19 10:00 03/03/19 09:28 Santyl - TP 1 applic DAILY CHANTELL Administration Protocol Escitalopram Oxalate 10 mg 02/22/19 10:00 03/03/19 09:27 Lexapro - PO 10 mg DAILY CHANTELL Administration Norepinephrine Bitartrate 8, 500 mls @ 18.75 mls/hr 02/23/19 12:45 03/03/19 16:30 000 mcg/ Dextrose IV 2 mcg/min TITR CHANTELL 7.5 mls/hr Titration Protocol 5 MCG/MIN Ceftriaxone Sodium 2 gm/ 100 mls @ 200 mls/hr 02/25/19 10:00 03/03/19 09:26 Dextrose IVPB 200 mls/hr DAILY CHANTELL Administration Protocol Metronidazole 500 mg in 100 mls @ 100 mls/hr 03/04/19 10:00 Flagyl 500mg Premixed Ivpb - IVPB Q8H-IV CHANTELL Insulin Aspart 1 vial 02/26/19 10:00 03/04/19 06:43 Novolog Vial Sliding Scale - SQ Not Given BIDAC CHANTELL Protocol Lactobacillus Acidophilus 1 tab 02/22/19 10:00 03/03/19 09:27 Bacid - PO 1 tab DAILY CHANTELL Administration Midodrine 10 mg 03/02/19 14:00 03/03/19 17:59 Proamatine - PO 10 mg TID-MID CHANTELL Administration Morphine Sulfate 2 mg 02/28/19 22:48 03/02/19 17:04 Morphine Sulfate IVPUSH 2 mg Q4H PRN Administration PAIN LEVEL 6-10 Multivitamins/Minerals/Vitamin C 1 tab 02/22/19 10:00 03/03/19 09:27 Tab-A-Vit - PO 1 tab DAILY CHANTELL Administration Tamsulosin HCl 0.4 mg 02/21/19 22:00 03/03/19 21:59 Flomax - PO 0.4 mg HS CHANTELL Administration ASSESSMENT/PLAN: Koffi Silva: [phone] Contacted Koffi today who gives consent for PRBC Once again, multiple calls placed to pts Daughter. No answer and no return call. Daughter reported to have called ICU yesterday, stated that she will not be able to be reached "indefinitely) Central line placed 02/22 Pt remains hypotensive and hemoglobin 7.1. Will give 1 unit PRBC for hypotension and anemia Pt on 2 mcq levo overnight, will continue to wean today and attempt to transfer to floor if pt does not require pressors #septic shock 2/2 DM gangrenous B/L feet infx, Infected sacral decub and scrotal ulcer, and GN bacteremia (proteus, prevotella) - requiring ICU and pressors, +L IJ. +Leukocytosis -old cx with E coli, ESBL, MRSA, and VRE. -contact isolation for MDRO -s/p Vanc and Zosyn in the ED, Gentamicin x1, Meropenem x2 in ICU -c/w ceftriaxone 2g/flagyl d4, per ID recs -Bcx 02/21/19 growing GN cher - proteus and prevotella -ucx neg -Dysphagia puree diet ordered, stop if pt vomits/aspirates -wound cx E coli, morganella -Bcx 02/23/19 neg -ID consulted -lactic acid resolved -palliative care consulted -Aspiration precautions. -Levophed gtt 2, Titrate pressors to keep MAP>65. Continue to wean -vascular surgery consulted, Dr harry, for wound care. amputation indicated, but family not amenable. cont GOC #ESRD on HD (MWF) -nephro consulted (Dr. Henriquez) -HD tmr as per Nephvito marino held by nephro for low phos. #Acute on chronic anemia likely 2/2 ESRD -monitor H/H #Severe protein calorie malnutrition -albumin 1.1, prealbumin 3.5 -thin appearing, decreased muscle mass and fat -decreased overall PO intake -Encourage Magic cup, Ensure pudding for increased density of nutritional intake #COPD -keep SpO2>90% -Duonebs q6h PRN #Dm ISS BGM ACHS #H/o hypotension : c/w home midodrine monitor vitals # h/o afib c/w elequis 2.5 bid #FEN -Not on any standing fluids -replete prn -tolerating puree diet, per speech eval #Prophylaxis -Eliquis 2.5mg BID #Disposition -full code. Visit type - Emergency Visit Emergency Visit: No - New Patient This patient is new to me today: No - Critical Care Critical Care patient: Yes Total Critical Care Time (in minutes): 36 Critical Care Statement: The care of this patient involved high complexity decision making to prevent further life threatening deterioration of the patient 's condition and/or to evaluate & treat vital organ system(s) failure or risk of failure.
--- NOTE | 2019-03-04 08:48 | PN ---
Progress Note (short form) - Note Progress Note: Spoke with patients daughter, Molly yesterday- she stated that she would not be available to be contacted for the next month or so. When she asked to hear about her father's status- i began to tell her which she then proceeded to state that i sounded "too young" on the phone, that she would call back today when the appropriate physician was available and hung up the phone. Problem List - Problems (1) ESRD (end stage renal disease) on dialysis Code(s): N18.6 - END STAGE RENAL DISEASE; Z99.2 - DEPENDENCE ON RENAL DIALYSIS (2) Gangrene of both feet Code(s): I96 - GANGRENE, NOT ELSEWHERE CLASSIFIED (3) Sacral decubitus ulcer Code(s): L89.159 - PRESSURE ULCER OF SACRAL REGION, UNSPECIFIED STAGE (4) Sepsis Code(s): A41.9 - SEPSIS, UNSPECIFIED ORGANISM (5) CKD (chronic kidney disease) Code(s): N18.9 - CHRONIC KIDNEY DISEASE, UNSPECIFIED (6) COPD (chronic obstructive pulmonary disease) Code(s): J44.9 - CHRONIC OBSTRUCTIVE PULMONARY DISEASE, UNSPECIFIED
[2019-03-04] MEDS ORDERED: DEXTROSE 5%-WATER 100 ML IVPB ONE (09:58)
[2019-03-04] MEDS: LACTOBACILLUS ACIDOPHILUS 1 TABLET PO SCH (10:21)
[2019-03-04] MEDS: APIXABAN 2.5 MG TABLET PO SCH ×2 (10:21→21:27)
[2019-03-04] MEDS: COLLAGENASE CLOSTRIDIUM HIST. 30 GRAMS TUBE TP SCH (10:22)
[2019-03-04] MEDS: MULTIVITAMINS (DAILY MVI) TABLET (FP) PO SCH (10:22)
[2019-03-04] MEDS: MIDODRINE HCL 5 MG TABLET PO SCH ×3 (10:22→18:21)
[2019-03-04] MEDS: ALLOPURINOL 100 MG TABLET (FP) PO SCH (10:22)
[2019-03-04] MEDS: CEFTRIAXONE 2 GM in DEXTROSE 5%-WATER 100 ML IVPB SCH (10:22)
[2019-03-04] MEDS: ESCITALOPRAM OXALATE 10 MG TABLET (FP) PO SCH (10:22)
--- NOTE | 2019-03-04 11:49 | PN ---
Teaching Attending Note Name of Resident: Gualberto Eagle ATTENDING PHYSICIAN STATEMENT I saw and evaluated the patient. I reviewed the resident's note and discussed the case with the resident. I agree with the resident's findings and plan as documented. SUBJECTIVE: Pt seen and examined in the ICU. Pressors stopped this AM. Lethargic but arousable. OBJECTIVE: Vital Signs Period Temp Pulse Resp BP Sys/Zamorano Pulse Ox Last 24 Hr 97.6 F 81-98 14-23 90-123/50-80 98 Intake & Output 03/01/19 03/02/19 03/03/19 03/04/19 23:59 23:59 23:59 23:59 Intake Total 2100 1070 1130 62 Output Total 0 500 Balance 2100 570 1130 62 Weight 60.963 kg 65.2 kg 66.905 kg 65.635 kg Gen: lethargic but arousable Heart: RRR Lung: decreased breath sounds at the bases Abd: soft, nontender Ext: no edema, wrapped CBC, BMP 03/04/19 05:15 03/04/19 05:15 Active Medications Albuterol/Ipratropium (Duoneb -) 1 amp NEB Q6H PRN PRN Reason: SHORTNESS OF BREATH Allopurinol (Zyloprim -) 100 mg PO DAILY [facility] Last Admin: 03/04/19 10:22 Dose: 100 mg Amino Acids (Prosource No Carb Liquid Pkt) 30 ml PO TID CHANTELL Last Admin: 03/04/19 05:54 Dose: 30 ml Apixaban (Eliquis -) 2.5 mg PO BID CHANTELL Last Admin: 03/04/19 10:21 Dose: 2.5 mg Atorvastatin Calcium (Lipitor -) 20 mg PO HS CHANTELL Last Admin: 03/03/19 21:59 Dose: 20 mg Collagenase (Santyl -) 1 applic TP DAILY CHANTELL; Protocol Last Admin: 03/04/19 10:22 Dose: 1 applic Escitalopram Oxalate (Lexapro -) 10 mg PO DAILY CHANTELL Last Admin: 03/04/19 10:22 Dose: 10 mg Norepinephrine Bitartrate 8, (000 mcg/ Dextrose) 500 mls @ 18.75 mls/hr IV TITR CHANTELL; Protocol Last Titration: 03/03/19 16:30 Dose: 2 mcg/min, 7.5 mls/hr Ceftriaxone Sodium 2 gm/ (Dextrose) 100 mls @ 200 mls/hr IVPB DAILY CHANTELL; Protocol Last Admin: 03/04/19 10:22 Dose: 200 mls/hr Metronidazole (Flagyl 500mg Premixed Ivpb -) 500 mg in 100 mls @ 100 mls/hr IVPB Q8H-IV CHANTELL Last Admin: 03/04/19 10:21 Dose: 100 mls/hr Insulin Aspart (Novolog Vial Sliding Scale -) 1 vial SQ BIDAC CHANTELL; Protocol Last Admin: 03/04/19 06:43 Dose: Not Given Lactobacillus Acidophilus (Bacid -) 1 tab PO DAILY CHANTELL Last Admin: 03/04/19 10:21 Dose: 1 tab Midodrine (Proamatine -) 10 mg PO TID-MID [facility] Last Admin: 03/04/19 10:22 Dose: 10 mg Morphine Sulfate (Morphine Sulfate) 2 mg IVPUSH Q4H PRN PRN Reason: PAIN LEVEL 6-10 Last Admin: 03/02/19 17:04 Dose: 2 mg Multivitamins/Minerals/Vitamin C (Tab-A-Vit -) 1 tab PO DAILY CHANTELL Last Admin: 03/04/19 10:22 Dose: 1 tab Tamsulosin HCl (Flomax -) 0.4 mg PO HS [facility] Last Admin: 03/03/19 21:59 Dose: 0.4 mg ASSESSMENT AND PLAN: Bilateral Feet Gangrene Infected Decubitus Ulcers Gram Negative Bacteremia Septic Shock ESRD on HD DM HTN Hyperlipidemia h/o CVA - continue antibiotics per ID - continue midodrine - monitoring off pressors, maintain MAP >65 - transfuse PRBC - monitor H/H - wound care - HD per renal - aspiration precautions - continue attempts to contact family regarding goals of care, advanced directives - DVT prophylaxis - can monitor on floor if remains off pressors critical care time spent in reviewing chart, evaluating patient and formulating plan 35 min
--- NOTE | 2019-03-04 13:15 | PN ---
Physical Exam: SUBJECTIVE: Patient seen and examined in ICU. Lethargic, in apparent pain. Remains hypotensive on pressors in septic shock. Family has been contacted regarding prognosis and need for discussion of GOC. OBJECTIVE: Vital Signs Period Temp Pulse Resp BP Sys/Zamorano Pulse Ox Last 24 Hr 97.6 F 81-98 14-23 90-123/50-80 98 GENERAL: lethargic, drowsy, oriented 0-1. thin appearing, decreased muscle mass and fat EARS, NOSE, THROAT: dry mucous membranes. LUNGS: CTAB HEART: irregularly irregular s1s2 normal ABDOMEN: Soft, NTND normoactive bowel sounds, ulcer present on sacrum unstagable with foul discharge, scrotum has ulcer no discharge MUSCULOSKELETAL: Normal range of motion at all joints. No bony deformities or tenderness. No CVA tenderness. UPPER EXTREMITIES: 2+ pulses, warm, well-perfused. LOWER EXTREMITIES: b/l wet gangrene with fouls smelling discharge SKIN: Warm, dry, Neuo: lethargic, responsive to pain. Laboratory Results - last 24 hr 03/02/19 03/03/19 03/03/19 10:15 05:30 16:40 WBC RBC Hgb Hct MCV MCH MCHC RDW Plt Count 291 D MPV Manual Slide Review Sodium Potassium Chloride Carbon Dioxide Anion Gap BUN Creatinine Est GFR (CKD-EPI)AfAm Est GFR (CKD-EPI)NonAf POC Glucometer 94 Random Glucose Calcium Blood Type A POSITIVE Antibody Screen Negative Crossmatch See Detail 03/04/19 03/04/19 05:15 05:15 WBC 11.9 H RBC 2.50 L Hgb 7.1 L Hct 22.8 L MCV 91.2 MCH 28.6 MCHC 31.3 L RDW 18.7 H Plt Count 287 MPV 7.9 Manual Slide Review Y Sodium 137 Potassium 3.6 Chloride 101 Carbon Dioxide 30 Anion Gap 6 L BUN 13.7 Creatinine 2.2 H Est GFR (CKD-EPI)AfAm 32.98 Est GFR (CKD-EPI)NonAf 28.45 POC Glucometer Random Glucose 96 Calcium 7.6 L Blood Type Antibody Screen Crossmatch Active Medications Generic Name Dose Route Start Last Admin Trade Name Freq PRN Reason Stop Dose Admin Albuterol/Ipratropium 1 amp 02/21/19 19:04 Duoneb - NEB Q6H PRN SHORTNESS OF BREATH Allopurinol 100 mg 02/22/19 10:00 03/04/19 10:22 Zyloprim - PO 100 mg DAILY CHANTELL Administration Amino Acids 30 ml 02/21/19 22:00 03/04/19 05:54 Prosource No Carb Liquid Pkt PO 30 ml TID CHANTELL Administration Apixaban 2.5 mg 02/21/19 22:00 03/04/19 10:21 Eliquis - PO 2.5 mg BID CHANTELL Administration Atorvastatin Calcium 20 mg 02/21/19 22:00 03/03/19 21:59 Lipitor - PO 20 mg HS CHANTELL Administration Collagenase 1 applic 02/22/19 10:00 03/04/19 10:22 Santyl - TP 1 applic DAILY CHANTELL Administration Protocol Escitalopram Oxalate 10 mg 02/22/19 10:00 03/04/19 10:22 Lexapro - PO 10 mg DAILY CHANTELL Administration Norepinephrine Bitartrate 8, 500 mls @ 18.75 mls/hr 02/23/19 12:45 03/03/19 16:30 000 mcg/ Dextrose IV 2 mcg/min TITR CHANTELL 7.5 mls/hr Titration Protocol 5 MCG/MIN Ceftriaxone Sodium 2 gm/ 100 mls @ 200 mls/hr 02/25/19 10:00 03/04/19 10:22 Dextrose IVPB 200 mls/hr DAILY CHANTELL Administration Protocol Metronidazole 500 mg in 100 mls @ 100 mls/hr 03/04/19 10:00 03/04/19 10:21 Flagyl 500mg Premixed Ivpb - IVPB 100 mls/hr Q8H-IV CHANTELL Administration Insulin Aspart 1 vial 02/26/19 10:00 03/04/19 06:43 Novolog Vial Sliding Scale - SQ Not Given BIDAC CHANTELL Protocol Lactobacillus Acidophilus 1 tab 02/22/19 10:00 03/04/19 10:21 Bacid - PO 1 tab DAILY CHANTELL Administration Midodrine 10 mg 03/02/19 14:00 03/04/19 10:22 Proamatine - PO 10 mg TID-MID CHANTELL Administration Morphine Sulfate 2 mg 02/28/19 22:48 03/02/19 17:04 Morphine Sulfate IVPUSH 2 mg Q4H PRN Administration PAIN LEVEL 6-10 Multivitamins/Minerals/Vitamin C 1 tab 02/22/19 10:00 03/04/19 10:22 Tab-A-Vit - PO 1 tab DAILY CHANTELL Administration Tamsulosin HCl 0.4 mg 02/21/19 22:00 03/03/19 21:59 Flomax - PO 0.4 mg HS CHANTELL Administration ASSESSMENT/PLAN: 73 yo M PMH dementia, CVA, DM, COPD, ESRD, gout, HTN, HLP, recent admission 01/31- 02/19 during which he was treated for sepsis due to infected b/l feet ulcers/ gangrene. He was sent [facility] [place] due to poor po intake, and worsening of ulcers. Now in septic shock 2/2 DM gangrenous B/L feet infx, Infected sacral decub and scrotal ulcer, and GN bacteremia , requiring ICU and pressors #septic shock 2/2 DM gangrenous B/L feet infx, Infected sacral decub and scrotal ulcer, and GN bacteremia (proteus, prevotella) - requiring ICU and pressors, +L IJ. +Leukocytosis -old cx with E coli, ESBL, MRSA, and VRE. -contact isolation for MDRO -s/p Vanc and Zosyn in the ED, Gentamicin x1, Meropenem x2 in ICU -Bcx 02/21/19 growing GN cher - proteus and prevotella -ucx neg -wound cx E coli, morganella -Bcx 02/23/19 neg -ID consulted, Rangel -lactic acid resolved -palliative care consulted -c/w ceftriaxone 2g/flagyl, per ID recs -Aspiration precautions. -Levophed gtt 8, Titrate pressors to keep MAP>65 -vascular surgery consulted, Dr harry, for wound care. amputation indicated, but family not amenable. cont GOC -per ID no vanc, cx show no MRSA for >48hr #ESRD on HD (MWF) -nephro consulted (Dr. Henriquez) -HD as per nephro ned held by nephro for low phos. #Acute on chronic anemia likely 2/2 ESRD -monitor H/H #Severe protein calorie malnutrition -albumin 1.1, prealbumin 3.5 -thin appearing, decreased muscle mass and fat -decreased overall PO intake -Encourage Magic cup, Ensure pudding for increased density of nutritional intake #COPD -keep SpO2>90% -Duonebs q6h PRN #Dm ISS BGM ACHS #H/o hypotension : c/w home midodrine monitor vitals # h/o afib c/w elequis 2.5 bid #FEN -Not on any standing fluids -replete prn -tolerating puree diet, per speech eval #Prophylaxis -Eliquis 2.5mg BID #Disposition -full code -GOC/ethics consult placed, as we have attempted multiple times to contact daughter who has not responded and in the past has not been amenable to to allow for source control/amputation and standard of care. given patients inability to make decisions for himself and daughter unwillingness pt will likely cont to suffer w/o improvement and has spoor prognosis. yesterday multiple times various members of primary team and ICU team tried contacting daughter and brother for GOC/ethics meeting but still no response from family. will cont to call today -ICU monitoring Visit type - Emergency Visit Emergency Visit: No - New Patient This patient is new to me today: No - Critical Care Critical Care patient: Yes Total Critical Care Time (in minutes): 40 Critical Care Statement: The care of this patient involved high complexity decision making to prevent further life threatening deterioration of the patient 's condition and/or to evaluate & treat vital organ system(s) failure or risk of failure.
--- NOTE | 2019-03-04 13:37 | PN ---
Teaching Attending Note Name of Resident: Sean Stuart ATTENDING PHYSICIAN STATEMENT I saw and evaluated the patient. I reviewed the resident's note and discussed the case with the resident. I agree with the resident's findings and plan as documented. SUBJECTIVE: OBJECTIVE: Vital Signs Temperature 97.6 F 03/03/19 18:00 Pulse Rate 98 H 03/04/19 07:00 Respiratory Rate 23 H 03/04/19 07:00 Blood Pressure 97/50 L 03/04/19 07:00 O2 Sat by Pulse Oximetry (%) 98 03/03/19 21:00 GENERAL: A&Ox0, lying in bed. ENT: Dry mucus membranes, NECK: No JVD LUNGS: mildly coarse breath sounds, no wheezes HEART: irrgelularly-irregular ,ANNE MARIE 2/6 EXTREMITIES: 2+ pulses, no edema. contracted lower extremities. SKIN: bilateral gangrene lower ext down to the tendon on the left with purulent foul smelling discharge. Sacrum: Unstageble sacral ulcer with fuol smell. : scrotal abscess CBCD WBC 11.9 K/mm3 (4.0-10.0) H 03/04/19 05:15 RBC 2.50 M/mm3 (4.00-5.60) L 03/04/19 05:15 Hgb 7.1 GM/dL (11.7-16.9) L 03/04/19 05:15 Hct 22.8 % (35.4-49) L 03/04/19 05:15 MCV 91.2 fl (80-96) 03/04/19 05:15 MCHC 31.3 g/dl (32.0-35.9) L 03/04/19 05:15 RDW 18.7 % (11.9-15.9) H 03/04/19 05:15 Plt Count 287 K/MM3 (134-434) 03/04/19 05:15 MPV 7.9 fl (7.5-11.1) 03/04/19 05:15 CMP Sodium 137 mmol/L (136-145) 03/04/19 05:15 Potassium 3.6 mmol/L (3.5-5.1) 03/04/19 05:15 Chloride 101 mmol/L (98-107) 03/04/19 05:15 Carbon Dioxide 30 mmol/L (21-32) 03/04/19 05:15 Anion Gap 6 MMOL/L (8-16) L 03/04/19 05:15 BUN 13.7 mg/dL (7-18) 03/04/19 05:15 Creatinine 2.2 mg/dL (0.55-1.3) H 03/04/19 05:15 Random Glucose 96 mg/dL (74-106) 03/04/19 05:15 Calcium 7.6 mg/dL (8.5-10.1) L 03/04/19 05:15 Total Bilirubin 0.2 mg/dL (0.2-1) 03/03/19 05:30 AST 7 U/L (15-37) L 03/03/19 05:30 ALT < 6 U/L (13-61) L 03/03/19 05:30 Alkaline Phosphatase 110 U/L (45-117) 03/03/19 05:30 Total Protein 5.4 g/dl (6.4-8.2) L 03/03/19 05:30 Albumin 1.2 g/dl (3.4-5.0) L 03/03/19 05:30 CARDIAC ENZYMES Troponin I < 0.02 ng/ml (0.00-0.05) 02/21/19 15:10 Current Medications Generic Name Dose Route Start Last Admin Trade Name Freq PRN Reason Stop Dose Admin Albuterol/Ipratropium 1 amp 02/21/19 19:04 Duoneb - NEB Q6H PRN SHORTNESS OF BREATH Allopurinol 100 mg 02/22/19 10:00 03/04/19 10:22 Zyloprim - PO 100 mg DAILY CHANTELL Administration Amino Acids 30 ml 02/21/19 22:00 03/04/19 05:54 Prosource No Carb Liquid Pkt PO 30 ml TID CHANTELL Administration Apixaban 2.5 mg 02/21/19 22:00 03/04/19 10:21 Eliquis - PO 2.5 mg BID CHANTELL Administration Atorvastatin Calcium 20 mg 02/21/19 22:00 03/03/19 21:59 Lipitor - PO 20 mg HS CHANTELL Administration Collagenase 1 applic 02/22/19 10:00 03/04/19 10:22 Santyl - TP 1 applic DAILY CHANTELL Administration Protocol Escitalopram Oxalate 10 mg 02/22/19 10:00 03/04/19 10:22 Lexapro - PO 10 mg DAILY CHANTELL Administration Norepinephrine Bitartrate 8, 500 mls @ 18.75 mls/hr 02/23/19 12:45 03/03/19 16:30 000 mcg/ Dextrose IV 2 mcg/min TITR CHANTELL 7.5 mls/hr Titration Protocol 5 MCG/MIN Ceftriaxone Sodium 2 gm/ 100 mls @ 200 mls/hr 02/25/19 10:00 03/04/19 10:22 Dextrose IVPB 200 mls/hr DAILY CHANTELL Administration Protocol Metronidazole 500 mg in 100 mls @ 100 mls/hr 03/04/19 10:00 03/04/19 10:21 Flagyl 500mg Premixed Ivpb - IVPB 100 mls/hr Q8H-IV CHANTELL Administration Insulin Aspart 1 vial 02/26/19 10:00 03/04/19 06:43 Novolog Vial Sliding Scale - SQ Not Given BIDAC CHANTELL Protocol Lactobacillus Acidophilus 1 tab 02/22/19 10:00 03/04/19 10:21 Bacid - PO 1 tab DAILY CHANTELL Administration Midodrine 10 mg 03/02/19 14:00 03/04/19 10:22 Proamatine - PO 10 mg TID-MID CHANTELL Administration Morphine Sulfate 2 mg 02/28/19 22:48 03/02/19 17:04 Morphine Sulfate IVPUSH 2 mg Q4H PRN Administration PAIN LEVEL 6-10 Multivitamins/Minerals/Vitamin C 1 tab 02/22/19 10:00 03/04/19 10:22 Tab-A-Vit - PO 1 tab DAILY CHANTELL Administration Tamsulosin HCl 0.4 mg 02/21/19 22:00 03/03/19 21:59 Flomax - PO 0.4 mg HS CHANTELL Administration Home Medications Medication Instructions Recorded Albuterol 2.5/Ipratropium 0.5 1 amp NEB Q6H PRN #0 amp 07/12/17 [Duoneb -] Allopurinol [Zyloprim -] 100 mg PO DAILY tablet 07/12/17 Atorvastatin Ca [Lipitor] 20 mg PO HS tablet 07/12/17 Collagenase Clostridium Hist. 1 applic TP DAILY tube 09/06/18 [Santyl -] Albuterol Sulfate [Proair Hfa] 2 puff IH Q6H PRN 10/29/18 Escitalopram Oxalate [Lexapro -] 10 mg PO DAILY 10/29/18 Folic Acid/Vit B Complex and C 1 each PO DAILY 10/29/18 [Dialyvite Tablet] Midodrine HCl 10 mg PO MOWEFR 10/29/18 Sevelamer Carbonate [Renvela -] 1,600 mg PO TID 10/29/18 Tamsulosin HCl [Flomax] 0.4 mg PO HS 10/29/18 Insulin Sliding Scale [Novolog 1 vial SQ TIDAC #1 vial 11/17/18 Vial Sliding Scale -] Apixaban [Eliquis -] 5 mg PO BID #30 tablet MDD 2 11/19/18 Collagenase Clostridium Hist. 1 applic TP DAILY #1 tube 01/17/19 [Santyl -] Amoxicillin/Potassium Clav 1 each PO DAILY #7 tablet 02/06/19 [Augmentin 500-125 Tablet] Megestrol Acetate Oral Susp 400 mg PO DAILY #20 cup 02/06/19 [Megace Liquid -] Protein Supplement [Prosource] 275 gm PO TID #60 powder 02/06/19 Lactobacillus Acidophilus [Bacid -] 1 tab PO DAILY #60 tab 02/19/19 Midodrine HCl [Proamatine -] 5 mg PO SuTuThSa #60 tablet 02/19/19 traMADol HCL [Ultram -] 50 mg PO Q6H PRN #60 tablet MDD 4 02/19/19 Microbiology 02/23/19 11:50 Blood - Peripheral Venous Blood Culture - Final NO GROWTH AFTER 5 DAYS INCUBATION 02/23/19 11:50 Blood - Peripheral Venous Blood Culture - Final NO GROWTH AFTER 5 DAYS INCUBATION 02/21/19 13:16 Blood - Peripheral Venous Blood Culture - Final Proteus Mirabilis Prevotella Melaninogenica 02/21/19 16:30 Foot - Left Heel Gram Stain - Final 02/21/19 16:30 Foot - Left Heel Wound Culture - Final Escherichia Coli Esbl Arc Trimmer Morganella Morganii 02/21/19 15:40 Blood - Peripheral Venous Blood Culture - Final Proteus Mirabilis 02/21/19 14:50 Urine - Urine - Catheterized Urine Culture - Final NO GROWTH OBTAINED ASSESSMENT AND PLAN: Patient is a 73 y/o male with PMHx of dementia, CVA, DM, COPD, ESRD, gout, HTN, HLP, recent admission 01/31-02/19 during which he was treated for sepsis due to infected b/l LEs gangrenous ulcers. He was sent from [place] due to poor po intake, and non healing wounds. # Gangrenous b/l LEs. with septic shock on pressor, continue IV Levophed , continue IV antibiotics Rocephin/flagyl. waiting for family decession, Sharlene Mcgee involved # Septic shock due to bacteremia to Proteus Mirabilis continue IV antibiotics and pressor, ID on the case, # Infected sacral decub and scrotum continue IV antibiotics # ESRD on HD , nephro on the case # DM with sliding scale with coverage # wound care with Santyl Case d/w dr. Khan , appreciate help. No response from the daughter or any other family members , ethics on the case.
--- NOTE | 2019-03-04 14:05 | PN ---
Progress Note (short form) - Note Progress Note: awake, remains on pressors- being tapered slowly now with feeding tube Vital Signs Period Temp Pulse Resp BP Sys/Zamorano Pulse Ox Last 24 Hr 97.6 F 81-98 14-23 90-123/50-80 98 cor-rrr lungs decreased bs at bases ng tube feeds abd soft,nt ext contracted dressings intact CBC, BMP 03/04/19 05:15 03/04/19 05:15 Microbiology 02/23/19 11:50 Blood - Peripheral Venous Blood Culture - Final NO GROWTH AFTER 5 DAYS INCUBATION 02/23/19 11:50 Blood - Peripheral Venous Blood Culture - Final NO GROWTH AFTER 5 DAYS INCUBATION 02/21/19 13:16 Blood - Peripheral Venous Blood Culture - Final Proteus Mirabilis Prevotella Melaninogenica 02/21/19 16:30 Foot - Left Heel Gram Stain - Final 02/21/19 16:30 Foot - Left Heel Wound Culture - Final Escherichia Coli Esbl Delinquent Account Clerk Morganella Morganii 02/21/19 15:40 Blood - Peripheral Venous Blood Culture - Final Proteus Mirabilis 02/21/19 14:50 Urine - Urine - Catheterized Urine Culture - Final NO GROWTH OBTAINED a/p polymicrobial gram negative sepsis-proteus and prevotella suspected secondary to gangrenous legs esrd/hd continue ceftriaxone/flagyl day #10 antibiotics overall prognosis is poor still unable to reach daughter Problem List - Problems (1) Gram negative sepsis Code(s): A41.50 - GRAM-NEGATIVE SEPSIS, UNSPECIFIED (2) Gangrene of both feet Code(s): I96 - GANGRENE, NOT ELSEWHERE CLASSIFIED (3) ESRD (end stage renal disease) on dialysis Code(s): N18.6 - END STAGE RENAL DISEASE; Z99.2 - DEPENDENCE ON RENAL DIALYSIS (4) MRSA (methicillin resistant 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 coli carrier Code(s): Z22.39 - CARRIER OF OTHER SPECIFIED BACTERIAL DISEASES (6) VRE (vancomycin-resistant Enterococci) Code(s): A49.1 - STREPTOCOCCAL INFECTION, UNSPECIFIED SITE; Z16.21 - RESISTANCE TO VANCOMYCIN
--- NOTE | 2019-03-04 14:18 | PN ---
Progress Note, Physician History of Present Illness: Pt seen and examined at bedside. He remains in the ICU. No great change in status. - Current Medication List Current Medications: Active Medications Albuterol/Ipratropium (Duoneb -) 1 amp NEB Q6H PRN PRN Reason: SHORTNESS OF BREATH Allopurinol (Zyloprim -) 100 mg PO DAILY CHANTELL Last Admin: 03/04/19 10:22 Dose: 100 mg Amino Acids (Prosource No Carb Liquid Pkt) 30 ml PO TID CHANTELL Last Admin: 03/04/19 05:54 Dose: 30 ml Apixaban (Eliquis -) 2.5 mg PO BID CHANTELL Last Admin: 03/04/19 10:21 Dose: 2.5 mg Atorvastatin Calcium (Lipitor -) 20 mg PO HS CHANTELL Last Admin: 03/03/19 21:59 Dose: 20 mg Collagenase (Santyl -) 1 applic TP DAILY CHANTELL; Protocol Last Admin: 03/04/19 10:22 Dose: 1 applic Escitalopram Oxalate (Lexapro -) 10 mg PO DAILY CHANTELL Last Admin: 03/04/19 10:22 Dose: 10 mg Norepinephrine Bitartrate 8, (000 mcg/ Dextrose) 500 mls @ 18.75 mls/hr IV TITR CHANTELL; Protocol Last Titration: 03/03/19 16:30 Dose: 2 mcg/min, 7.5 mls/hr Ceftriaxone Sodium 2 gm/ (Dextrose) 100 mls @ 200 mls/hr IVPB DAILY CHANTELL; Protocol Last Admin: 03/04/19 10:22 Dose: 200 mls/hr Metronidazole (Flagyl 500mg Premixed Ivpb -) 500 mg in 100 mls @ 100 mls/hr IVPB Q8H-IV CHANTELL Last Admin: 03/04/19 10:21 Dose: 100 mls/hr Insulin Aspart (Novolog Vial Sliding Scale -) 1 vial SQ BIDAC CHANTELL; Protocol Last Admin: 03/04/19 06:43 Dose: Not Given Lactobacillus Acidophilus (Bacid -) 1 tab PO DAILY CHANTELL Last Admin: 03/04/19 10:21 Dose: 1 tab Midodrine (Proamatine -) 10 mg PO TID-MID CHANTELL Last Admin: 03/04/19 10:22 Dose: 10 mg Morphine Sulfate (Morphine Sulfate) 2 mg IVPUSH Q4H PRN PRN Reason: PAIN LEVEL 6-10 Last Admin: 03/02/19 17:04 Dose: 2 mg Multivitamins/Minerals/Vitamin C (Tab-A-Vit -) 1 tab PO DAILY CHANTELL Last Admin: 03/04/19 10:22 Dose: 1 tab Tamsulosin HCl (Flomax -) 0.4 mg PO HS CHANTELL Last Admin: 03/03/19 21:59 Dose: 0.4 mg - Objective Vital Signs: Vital Signs Temperature 97.6 F 03/03/19 18:00 Pulse Rate 98 H 03/04/19 07:00 Respiratory Rate 23 H 03/04/19 07:00 Blood Pressure 97/50 L 03/04/19 07:00 O2 Sat by Pulse Oximetry (%) 98 03/03/19 21:00 Constitutional: Yes: Calm Eyes: Yes: Conjunctiva Clear Cardiovascular: Yes: S1, S2 Respiratory: Yes: On Nasal O2 Gastrointestinal: Yes: Soft Genitourinary: Yes: Incontinence Musculoskeletal: Yes: Muscle Weakness Edema: No Neurological: Yes: Confusion Labs: CBC, BMP 03/04/19 05:15 03/04/19 05:15 INR, PTT INR 1.44 (0.83-1.09) H 02/22/19 05:40 Assessment/Plan Current Medications Generic Name Dose Route Start Last Admin Trade Name Freq PRN Reason Stop Dose Admin Albuterol/Ipratropium 1 amp 02/21/19 19:04 Duoneb - NEB Q6H PRN SHORTNESS OF BREATH Allopurinol 100 mg 02/22/19 10:00 03/04/19 10:22 Zyloprim - PO 100 mg DAILY CHANTELL Administration Amino Acids 30 ml 02/21/19 22:00 03/04/19 05:54 Prosource No Carb Liquid Pkt PO 30 ml TID CHANTELL Administration Apixaban 2.5 mg 02/21/19 22:00 03/04/19 10:21 Eliquis - PO 2.5 mg BID CHANTELL Administration Atorvastatin Calcium 20 mg 02/21/19 22:00 03/03/19 21:59 Lipitor - PO 20 mg HS CHANTELL Administration Collagenase 1 applic 02/22/19 10:00 03/04/19 10:22 Santyl - TP 1 applic DAILY CHANTELL Administration Protocol Escitalopram Oxalate 10 mg 02/22/19 10:00 03/04/19 10:22 Lexapro - PO 10 mg DAILY CHANTELL Administration Norepinephrine Bitartrate 8, 500 mls @ 18.75 mls/hr 02/23/19 12:45 03/03/19 16:30 000 mcg/ Dextrose IV 2 mcg/min TITR CHANTELL 7.5 mls/hr Titration Protocol 5 MCG/MIN Ceftriaxone Sodium 2 gm/ 100 mls @ 200 mls/hr 02/25/19 10:00 03/04/19 10:22 Dextrose IVPB 200 mls/hr DAILY CHANTELL Administration Protocol Metronidazole 500 mg in 100 mls @ 100 mls/hr 03/04/19 10:00 03/04/19 10:21 Flagyl 500mg Premixed Ivpb - IVPB 100 mls/hr Q8H-IV CHANTELL Administration Insulin Aspart 1 vial 02/26/19 10:00 03/04/19 06:43 Novolog Vial Sliding Scale - SQ Not Given BIDAC CHANTELL Protocol Lactobacillus Acidophilus 1 tab 02/22/19 10:00 03/04/19 10:21 Bacid - PO 1 tab DAILY CHANTELL Administration Midodrine 10 mg 03/02/19 14:00 03/04/19 10:22 Proamatine - PO 10 mg TID-MID CHANTELL Administration Morphine Sulfate 2 mg 02/28/19 22:48 03/02/19 17:04 Morphine Sulfate IVPUSH 2 mg Q4H PRN Administration PAIN LEVEL 6-10 Multivitamins/Minerals/Vitamin C 1 tab 02/22/19 10:00 03/04/19 10:22 Tab-A-Vit - PO 1 tab DAILY CHANTELL Administration Tamsulosin HCl 0.4 mg 02/21/19 22:00 03/03/19 21:59 Flomax - PO 0.4 mg HS CHANTELL Administration Impression 1. ESRD 2. gangrene 3. DM 4. hyperlipidemia 5. HTN 6. gout 7. proteinuria 8. hypotension 9. sepsis Plan - HD tomorrow - abx per ID - wound care - prognosis is poor - renal diet
[2019-03-04] MEDS: ATORVASTATIN CA 20 MG TABLET (FP) PO SCH (21:27)
[2019-03-04] MEDS: TAMSULOSIN HCL 0.4 MG CAP PO SCH (21:27)
[2019-03-05] MEDS: NOREPINEPHRINE BITARTRATE 8,000 MCG in DEXTROSE 5%-WATER - 492 ML IV SCH (01:42)
[2019-03-05] MEDS: AMINO ACIDS/PROTEIN HYDROLYS 30 ML LIQUID.PKT PO SCH ×3 (05:27→21:42)
[2019-03-05] MEDS ORDERED: DEXTROSE 50%-WATER - 25 GM/50 ML VIAL IVPUSH ONE (06:41)
[2019-03-05] MEDS ORDERED: DEXTROSE 50%-WATER 25 GM/50 ML DISP.SYRIN ONE (06:47)
[2019-03-05] MEDS: INSULIN SLIDING SCALE (NOVOLOG) 1 VIAL SQ SCH ×2 (06:51→17:37)
--- NOTE | 2019-03-05 07:37 | PN ---
Physical Exam: SUBJECTIVE: Patient seen and examined in ICU. Lethargic, in apparent pain. Remains hypotensive on pressors in septic shock. Family has been contacted regarding prognosis and need for discussion of GOC. OBJECTIVE: Vital Signs Period Temp Pulse Resp BP Sys/Zamorano Pulse Ox Last 24 Hr 98 F-98.7 F 78-96 17-25 90-138/43-96 96 GENERAL: lethargic, drowsy, oriented 0-1. thin appearing, decreased muscle mass and fat EARS, NOSE, THROAT: dry mucous membranes. LUNGS: CTAB HEART: irregularly irregular s1s2 normal ABDOMEN: Soft, NTND normoactive bowel sounds, ulcer present on sacrum unstagable with foul discharge, scrotum has ulcer no discharge MUSCULOSKELETAL: Normal range of motion at all joints. No bony deformities or tenderness. No CVA tenderness. UPPER EXTREMITIES: 2+ pulses, warm, well-perfused. LOWER EXTREMITIES: b/l wet gangrene with fouls smelling discharge SKIN: Warm, dry, Neuo: lethargic, responsive to pain. Laboratory Results - last 24 hr 03/02/19 03/04/19 03/04/19 10:15 05:15 18:07 WBC 11.9 H RBC 2.50 L Hgb 7.1 L Hct 22.8 L MCV 91.2 MCH 28.6 MCHC 31.3 L RDW 18.7 H Plt Count 287 MPV 7.9 Manual Slide Review Y POC Glucometer 358 Blood Type A POSITIVE Antibody Screen Negative Crossmatch See Detail 03/05/19 06:39 WBC RBC Hgb Hct MCV MCH MCHC RDW Plt Count MPV Manual Slide Review POC Glucometer 54 Blood Type Antibody Screen Crossmatch Active Medications Generic Name Dose Route Start Last Admin Trade Name Freq PRN Reason Stop Dose Admin Albuterol/Ipratropium 1 amp 02/21/19 19:04 Duoneb - NEB Q6H PRN SHORTNESS OF BREATH Allopurinol 100 mg 02/22/19 10:00 03/04/19 10:22 Zyloprim - PO 100 mg DAILY CHANTELL Administration Amino Acids 30 ml 02/21/19 22:00 03/05/19 05:27 Prosource No Carb Liquid Pkt PO 30 ml TID CHANTELL Administration Apixaban 2.5 mg 02/21/19 22:00 03/04/19 21:27 Eliquis - PO 2.5 mg BID CHANTELL Administration Atorvastatin Calcium 20 mg 02/21/19 22:00 03/04/19 21:27 Lipitor - PO 20 mg HS CHANTELL Administration Collagenase 1 applic 02/22/19 10:00 03/04/19 10:22 Santyl - TP 1 applic DAILY CHANTELL Administration Protocol Escitalopram Oxalate 10 mg 02/22/19 10:00 03/04/19 10:22 Lexapro - PO 10 mg DAILY CHANTELL Administration Norepinephrine Bitartrate 8, 500 mls @ 18.75 mls/hr 02/23/19 12:45 03/05/19 06:26 000 mcg/ Dextrose IV 2 mcg/min TITR CHANTELL 7.5 mls/hr Titration Protocol 5 MCG/MIN Ceftriaxone Sodium 2 gm/ 100 mls @ 200 mls/hr 02/25/19 10:00 03/04/19 10:22 Dextrose IVPB 200 mls/hr DAILY CHANTELL Administration Protocol Metronidazole 500 mg in 100 mls @ 100 mls/hr 03/04/19 10:00 03/05/19 01:40 Flagyl 500mg Premixed Ivpb - IVPB 100 mls/hr Q8H-IV CHANTELL Administration Insulin Aspart 1 vial 02/26/19 10:00 03/05/19 06:51 Novolog Vial Sliding Scale - SQ Not Given BIDAC CHANTELL Protocol Lactobacillus Acidophilus 1 tab 02/22/19 10:00 03/04/19 10:21 Bacid - PO 1 tab DAILY CHANTELL Administration Midodrine 10 mg 03/02/19 14:00 03/04/19 18:21 Proamatine - PO 10 mg TID-MID CHANTELL Administration Morphine Sulfate 2 mg 02/28/19 22:48 03/02/19 17:04 Morphine Sulfate IVPUSH 2 mg Q4H PRN Administration PAIN LEVEL 6-10 Multivitamins/Minerals/Vitamin C 1 tab 02/22/19 10:00 03/04/19 10:22 Tab-A-Vit - PO 1 tab DAILY CHANTELL Administration Tamsulosin HCl 0.4 mg 02/21/19 22:00 03/04/19 21:27 Flomax - PO 0.4 mg HS CHANTELL Administration ASSESSMENT/PLAN: 73 yo M PMH dementia, CVA, DM, COPD, ESRD, gout, HTN, HLP, recent admission 01/31- 5/28 during which he was treated for sepsis due to infected b/l feet ulcers/ gangrene. He was sent form NH due to poor po intake, and worsening of ulcers. Now in septic shock 2/2 DM gangrenous B/L feet infx, Infected sacral decub and scrotal ulcer, and GN bacteremia , requiring ICU and pressors #septic shock 2/2 DM gangrenous B/L feet infx, Infected sacral decub and scrotal ulcer, and GN bacteremia (proteus, prevotella) - requiring ICU and pressors, +Leukocytosis -old cx with E coli, ESBL, MRSA, and VRE. -contact isolation for MDRO -s/p Vanc and Zosyn in the ED, Gentamicin x1, Meropenem x2 in ICU -Bcx 02/21/19 growing GN cher - proteus and prevotella -ucx neg -wound cx E coli, morganella -Bcx 02/23/19 neg -ID consulted, Rangel -lactic acid resolved -palliative care consulted -c/w ceftriaxone 2g/flagyl day #11 antibiotics, per ID recs -Aspiration precautions. -Levophed gtt 2, Titrate pressors to keep MAP>65 -vascular surgery consulted, Dr harry, for wound care. amputation indicated, but family not amenable. cont GOC -per ID no vanc, cx show no MRSA for >48hr #ESRD on HD (MWF) -nephro consulted (Dr. Henriquez) -HD as per nephro ned held by nephro for low phos. #Acute on chronic anemia likely 2/2 ESRD -monitor H/H #Severe protein calorie malnutrition -albumin 1.1, prealbumin 3.5 -thin appearing, decreased muscle mass and fat -decreased overall PO intake -Encourage Magic cup, Ensure pudding for increased density of nutritional intake #COPD -keep SpO2>90% -Duonebs q6h PRN #Dm ISS BGM ACHS #H/o hypotension : c/w home midodrine monitor vitals # h/o afib c/w elequis 2.5 bid #FEN -Not on any standing fluids -replete prn -NGT on tube feeds #Prophylaxis -Eliquis 2.5mg BID -Protonix IV while on AC and pressors -bacid #Disposition -full code -GOC/ethics consult placed, as we have attempted multiple times to contact daughter who has not been responsive and in the past has not been amenable to to allow for source control/amputation and standard of care. given patients inability to make decisions for himself and daughter unwillingness pt will likely cont to suffer w/o improvement and has spoor prognosis. yesterday multiple times various members of primary team and ICU team tried contacting daughter and brother for GOC/ethics meeting. Resident Dr Milton was able to make contact but no meaningful discussion was able to take place, please see Dr Milton note for further detail. still no response from brother. will cont to call today -ICU monitoring Visit type - Emergency Visit Emergency Visit: Yes ED Registration Date: 02/21/19 Care time: The patient presented to the Emergency Department on the above date and was hospitalized for further evaluation of their emergent condition. - New Patient This patient is new to me today: Yes Date on this admission: 03/05/19 - Critical Care Critical Care patient: Yes Total Critical Care Time (in minutes): 37 Critical Care Statement: The care of this patient involved high complexity decision making to prevent further life threatening deterioration of the patient 's condition and/or to evaluate & treat vital organ system(s) failure or risk of failure.
[2019-03-05 08:56] LABS: BLOOD UREA NITROGEN 21.9 mg/dL (7-18); CALCIUM 7.7 mg/dL (8.5-10.1); CREATININE 2.7 mg/dL (0.55-1.3); POTASSIUM 3.2 mmol/L (3.5-5.1)
[2019-03-05] MEDS ORDERED: DEXTROSE 5%-WATER 100 ML IVPB ONE (09:40)
[2019-03-05] MEDS ORDERED: PT OWN MED DRAWER 7, Y5N ONE (09:40)
[2019-03-05] MEDS: MULTIVITAMINS (DAILY MVI) TABLET (FP) PO SCH (09:42)
[2019-03-05] MEDS: ALLOPURINOL 100 MG TABLET (FP) PO SCH (09:42)
[2019-03-05] MEDS: CEFTRIAXONE 2 GM in DEXTROSE 5%-WATER 100 ML IVPB SCH (09:42)
[2019-03-05] MEDS: LACTOBACILLUS ACIDOPHILUS 1 TABLET PO SCH (09:42)
[2019-03-05] MEDS: ESCITALOPRAM OXALATE 10 MG TABLET (FP) PO SCH (09:42)
[2019-03-05] MEDS: COLLAGENASE CLOSTRIDIUM HIST. 30 GRAMS TUBE TP SCH (09:43)
[2019-03-05 10:15] LABS: HEMATOCRIT 29.9 % (35.4-49); HEMOGLOBIN 9.3 GM/dL (11.7-16.9); MCH 28.4 pg (25.7-33.7); MCHC 31.1 g/dl (32.0-35.9); MEAN CELL VOLUME 91.5 fl (80-96); MEAN PLT VOLUME 7.9 fl (7.5-11.1); PLATELET COUNT 269 K/MM3 (134-434); RBC 3.27 M/mm3 (4.00-5.60); WHITE BLOOD COUNT 13.7 K/mm3 (4.0-10.0)
[2019-03-05] MEDS: APIXABAN 2.5 MG TABLET PO SCH ×2 (10:32→21:42)
[2019-03-05] MEDS: MIDODRINE HCL 5 MG TABLET PO SCH ×3 (10:32→17:38)
--- NOTE | 2019-03-05 12:58 | PN ---
Progress Note, Physician History of Present Illness: Pt seen and examined at bedside. He remains in the ICU. - Current Medication List Current Medications: Active Medications Albuterol/Ipratropium (Duoneb -) 1 amp NEB Q6H PRN PRN Reason: SHORTNESS OF BREATH Allopurinol (Zyloprim -) 100 mg PO DAILY CHANTELL Last Admin: 03/05/19 09:42 Dose: 100 mg Amino Acids (Prosource No Carb Liquid Pkt) 30 ml PO TID CHANTELL Last Admin: 03/05/19 05:27 Dose: 30 ml Apixaban (Eliquis -) 2.5 mg PO BID CHANTELL Last Admin: 03/05/19 10:32 Dose: 2.5 mg Atorvastatin Calcium (Lipitor -) 20 mg PO HS CHANTELL Last Admin: 03/04/19 21:27 Dose: 20 mg Collagenase (Santyl -) 1 applic TP DAILY CHANTELL; Protocol Last Admin: 03/05/19 09:43 Dose: 1 applic Escitalopram Oxalate (Lexapro -) 10 mg PO DAILY CHANTELL Last Admin: 03/05/19 09:42 Dose: 10 mg Norepinephrine Bitartrate 8, (000 mcg/ Dextrose) 500 mls @ 18.75 mls/hr IV TITR CHANTELL; Protocol Last Titration: 03/05/19 06:26 Dose: 2 mcg/min, 7.5 mls/hr Ceftriaxone Sodium 2 gm/ (Dextrose) 100 mls @ 200 mls/hr IVPB DAILY CHANTELL; Protocol Last Admin: 03/05/19 09:42 Dose: 200 mls/hr Metronidazole (Flagyl 500mg Premixed Ivpb -) 500 mg in 100 mls @ 100 mls/hr IVPB Q8H-IV CHANTELL Last Admin: 03/05/19 09:42 Dose: 100 mls/hr Insulin Aspart (Novolog Vial Sliding Scale -) 1 vial SQ BIDAC CHANTELL; Protocol Last Admin: 03/05/19 06:51 Dose: Not Given Lactobacillus Acidophilus (Bacid -) 1 tab PO DAILY CHANTELL Last Admin: 03/05/19 09:42 Dose: 1 tab Midodrine (Proamatine -) 10 mg PO TID-MID CHANTELL Last Admin: 03/05/19 10:32 Dose: 10 mg Morphine Sulfate (Morphine Sulfate) 2 mg IVPUSH Q4H PRN PRN Reason: PAIN LEVEL 6-10 Last Admin: 03/02/19 17:04 Dose: 2 mg Multivitamins/Minerals/Vitamin C (Tab-A-Vit -) 1 tab PO DAILY CHANTELL Last Admin: 03/05/19 09:42 Dose: 1 tab Pantoprazole Sodium (Protonix Iv) 40 mg IVPUSH DAILY CHANTELL Potassium Chloride (Potassium Chloride Oral Liquid) 40 meq PO ONCE ONE Stop: 03/05/19 12:57 Tamsulosin HCl (Flomax -) 0.4 mg PO HS CHANTELL Last Admin: 03/04/19 21:27 Dose: 0.4 mg - Objective Vital Signs: Vital Signs Temperature 98.2 F 03/05/19 12:00 Pulse Rate 87 03/05/19 12:00 Respiratory Rate 22 H 03/05/19 12:00 Blood Pressure 94/50 L 03/05/19 12:00 O2 Sat by Pulse Oximetry (%) 96 03/04/19 20:50 Constitutional: Yes: Calm Eyes: Yes: Conjunctiva Clear Cardiovascular: Yes: S1, S2 Respiratory: Yes: On Nasal O2 Gastrointestinal: Yes: Soft Genitourinary: Yes: Incontinence Edema: No Wound/Incision: Yes: Dressing Dry and Intact Neurological: Yes: Confusion, Lethargy Labs: CBC, BMP 03/05/19 08:10 03/05/19 08:10 INR, PTT INR 1.44 (0.83-1.09) H 02/22/19 05:40 Assessment/Plan Current Medications Generic Name Dose Route Start Last Admin Trade Name Freq PRN Reason Stop Dose Admin Albuterol/Ipratropium 1 amp 02/21/19 19:04 Duoneb - NEB Q6H PRN SHORTNESS OF BREATH Allopurinol 100 mg 02/22/19 10:00 03/05/19 09:42 Zyloprim - PO 100 mg DAILY CHANTELL Administration Amino Acids 30 ml 02/21/19 22:00 03/05/19 05:27 Prosource No Carb Liquid Pkt PO 30 ml TID CHATNELL Administration Apixaban 2.5 mg 02/21/19 22:00 03/05/19 10:32 Eliquis - PO 2.5 mg BID CHANTELL Administration Atorvastatin Calcium 20 mg 02/21/19 22:00 03/04/19 21:27 Lipitor - PO 20 mg HS CHANTELL Administration Collagenase 1 applic 02/22/19 10:00 03/05/19 09:43 Santyl - TP 1 applic DAILY CHANTELL Administration Protocol Escitalopram Oxalate 10 mg 02/22/19 10:00 03/05/19 09:42 Lexapro - PO 10 mg DAILY CHANTELL Administration Norepinephrine Bitartrate 8, 500 mls @ 18.75 mls/hr 02/23/19 12:45 03/05/19 06:26 000 mcg/ Dextrose IV 2 mcg/min TITR CHANTELL 7.5 mls/hr Titration Protocol 5 MCG/MIN Ceftriaxone Sodium 2 gm/ 100 mls @ 200 mls/hr 02/25/19 10:00 03/05/19 09:42 Dextrose IVPB 200 mls/hr DAILY CHANTELL Administration Protocol Metronidazole 500 mg in 100 mls @ 100 mls/hr 03/04/19 10:00 03/05/19 09:42 Flagyl 500mg Premixed Ivpb - IVPB 100 mls/hr Q8H-IV CHANTELL Administration Insulin Aspart 1 vial 02/26/19 10:00 03/05/19 06:51 Novolog Vial Sliding Scale - SQ Not Given BIDAC CHANTELL Protocol Lactobacillus Acidophilus 1 tab 02/22/19 10:00 03/05/19 09:42 Bacid - PO 1 tab DAILY CHANTELL Administration Midodrine 10 mg 03/02/19 14:00 03/05/19 10:32 Proamatine - PO 10 mg TID-MID CHANTELL Administration Morphine Sulfate 2 mg 02/28/19 22:48 03/02/19 17:04 Morphine Sulfate IVPUSH 2 mg Q4H PRN Administration PAIN LEVEL 6-10 Multivitamins/Minerals/Vitamin C 1 tab 02/22/19 10:00 03/05/19 09:42 Tab-A-Vit - PO 1 tab DAILY CHANTELL Administration Pantoprazole Sodium 40 mg 03/05/19 12:00 Protonix Iv IVPUSH DAILY CHANTELL Potassium Chloride 40 meq 03/05/19 12:56 Potassium Chloride Oral Liquid PO 03/05/19 12:57 ONCE ONE Tamsulosin HCl 0.4 mg 02/21/19 22:00 03/04/19 21:27 Flomax - PO 0.4 mg HS CHANTELL Administration Impression 1. ESRD 2. gangrene 3. DM 4. hyperlipidemia 5. HTN 6. gout 7. proteinuria 8. hypotension 9. sepsis Plan - HD today - abx per ID - wound care - prognosis is poor - renal diet
[2019-03-05] MEDS ORDERED: POTASSIUM CHLORIDE ORAL LIQUID 20 MEQ/15 ML PO ONE (13:15)
--- NOTE | 2019-03-05 13:32 | PN ---
Teaching Attending Note Name of Resident: Gualberto Eagle ATTENDING PHYSICIAN STATEMENT I saw and evaluated the patient. I reviewed the resident's note and discussed the case with the resident. I agree with the resident's findings and plan as documented. SUBJECTIVE: Pt seen and examined in the ICU. Remains on low dose levophed gtt. Remains lethargic. For dialysis today. OBJECTIVE: Vital Signs Period Temp Pulse Resp BP Sys/Zamorano Pulse Ox Last 24 Hr 98 F-98.7 F 78-96 17-25 94-138/43-96 96 Intake & Output 03/02/19 03/03/19 03/04/19 03/05/19 23:59 23:59 23:59 23:59 Intake Total 1070 1130 585.3 205 Output Total 500 Balance 570 1130 585.3 205 Weight 65.2 kg 66.905 kg 65.635 kg 67.495 kg Gen: lethargic but arousable Heart: RRR Lung: decreased breath sounds at the bases Abd: soft, nontender Ext: no edema, wrapped CBC, BMP 03/05/19 08:10 03/05/19 08:10 Active Medications Albuterol/Ipratropium (Duoneb -) 1 amp NEB Q6H PRN PRN Reason: SHORTNESS OF BREATH Allopurinol (Zyloprim -) 100 mg PO DAILY [facility] Last Admin: 03/05/19 09:42 Dose: 100 mg Amino Acids (Prosource No Carb Liquid Pkt) 30 ml PO TID CHANTELL Last Admin: 03/05/19 05:27 Dose: 30 ml Apixaban (Eliquis -) 2.5 mg PO BID CHANTELL Last Admin: 03/05/19 10:32 Dose: 2.5 mg Atorvastatin Calcium (Lipitor -) 20 mg PO HS CHANTELL Last Admin: 03/04/19 21:27 Dose: 20 mg Collagenase (Santyl -) 1 applic TP DAILY CHANTELL; Protocol Last Admin: 03/05/19 09:43 Dose: 1 applic Escitalopram Oxalate (Lexapro -) 10 mg PO DAILY CHANTELL Last Admin: 03/05/19 09:42 Dose: 10 mg Norepinephrine Bitartrate 8, (000 mcg/ Dextrose) 500 mls @ 18.75 mls/hr IV TITR CHANTELL; Protocol Last Titration: 03/05/19 06:26 Dose: 2 mcg/min, 7.5 mls/hr Ceftriaxone Sodium 2 gm/ (Dextrose) 100 mls @ 200 mls/hr IVPB DAILY [facility]; Protocol Last Admin: 03/05/19 09:42 Dose: 200 mls/hr Metronidazole (Flagyl 500mg Premixed Ivpb -) 500 mg in 100 mls @ 100 mls/hr IVPB Q8H-IV CHANTELL Last Admin: 03/05/19 09:42 Dose: 100 mls/hr Insulin Aspart (Novolog Vial Sliding Scale -) 1 vial SQ BIDAC CHANTELL; Protocol Last Admin: 03/05/19 06:51 Dose: Not Given Lactobacillus Acidophilus (Bacid -) 1 tab PO DAILY [facility] Last Admin: 03/05/19 09:42 Dose: 1 tab Midodrine (Proamatine -) 10 mg PO TID-MID [facility] Last Admin: 03/05/19 10:32 Dose: 10 mg Morphine Sulfate (Morphine Sulfate) 2 mg IVPUSH Q4H PRN PRN Reason: PAIN LEVEL 6-10 Last Admin: 03/02/19 17:04 Dose: 2 mg Multivitamins/Minerals/Vitamin C (Tab-A-Vit -) 1 tab PO DAILY [facility] Last Admin: 03/05/19 09:42 Dose: 1 tab Pantoprazole Sodium (Protonix Iv) 40 mg IVPUSH DAILY [facility] Tamsulosin HCl (Flomax -) 0.4 mg PO HS [facility] Last Admin: 03/04/19 21:27 Dose: 0.4 mg ASSESSMENT AND PLAN: Bilateral Feet Gangrene Infected Decubitus Ulcers Gram Negative Bacteremia Septic Shock ESRD on HD DM HTN Hyperlipidemia h/o CVA - continue antibiotics per ID - continue midodrine - taper off pressors to maintain MAP >65 - transfuse PRBC - monitor H/H - wound care - HD per renal - aspiration precautions - continue attempts to contact family regarding goals of care, advanced directives - DVT prophylaxis - can monitor on floor if remains off pressors critical care time spent in reviewing chart, evaluating patient and formulating plan 35 min
[2019-03-05] MEDS: PANTOPRAZOLE SODIUM 40 MG VIAL IVPUSH SCH (14:14)
[2019-03-05] MEDS ORDERED: SODIUM CHLORIDE 250 ML IV PRN (17:11)
[2019-03-05] MEDS: ALBUMIN HUMAN 25% 12.5 GM/50 ML VIAL IVPB SCH ×4 (17:15→18:45)
[2019-03-05] MEDS ORDERED: EPOETIN ALFA 10,000 UNIT/1 ML VIAL IVPUSH ONE (17:15)
--- NOTE | 2019-03-05 17:19 | PN ---
Teaching Attending Note Name of Resident: Mathew Adorno ATTENDING PHYSICIAN STATEMENT I saw and evaluated the patient. I reviewed the resident's note and discussed the case with the resident. I agree with the resident's findings and plan as documented. SUBJECTIVE: Patient is in ICU, continues to be nonverbal OBJECTIVE: Vital Signs Temperature 98.4 F 03/05/19 16:00 Pulse Rate 90 03/05/19 16:45 Respiratory Rate 18 03/05/19 16:45 Blood Pressure 107/56 L 03/05/19 16:45 O2 Sat by Pulse Oximetry (%) 96 03/04/19 20:50 GENERAL: A&Ox0, lying in bed. ENT: Dry mucus membranes, NECK: No JVD LUNGS: mildly coarse breath sounds, no wheezes HEART: irrgelularly-irregular ,ANNE MARIE 2/6 EXTREMITIES: 2+ pulses, no edema. contracted lower extremities. SKIN: bilateral gangrene lower ext down to the tendon on the left with purulent foul smelling discharge. Sacrum: Unstageble sacral ulcer with foul smell. : scrotal abscess CBCD WBC 13.7 K/mm3 (4.0-10.0) H 03/05/19 08:10 RBC 3.27 M/mm3 (4.00-5.60) L 03/05/19 08:10 Hgb 9.3 GM/dL (11.7-16.9) L 03/05/19 08:10 Hct 29.9 % (35.4-49) L D 03/05/19 08:10 MCV 91.5 fl (80-96) 03/05/19 08:10 MCHC 31.1 g/dl (32.0-35.9) L 03/05/19 08:10 RDW 18.0 % (11.9-15.9) H 03/05/19 08:10 Plt Count 269 K/MM3 (134-434) 03/05/19 08:10 MPV 7.9 fl (7.5-11.1) 03/05/19 08:10 CMP Sodium 139 mmol/L (136-145) 03/05/19 08:10 Potassium 3.2 mmol/L (3.5-5.1) L 03/05/19 08:10 Chloride 101 mmol/L (98-107) 03/05/19 08:10 Carbon Dioxide 30 mmol/L (21-32) 03/05/19 08:10 Anion Gap 8 MMOL/L (8-16) 03/05/19 08:10 BUN 21.9 mg/dL (7-18) H 03/05/19 08:10 Creatinine 2.7 mg/dL (0.55-1.3) H 03/05/19 08:10 Random Glucose 133 mg/dL (74-106) H 03/05/19 08:10 Calcium 7.7 mg/dL (8.5-10.1) L 03/05/19 08:10 Total Bilirubin 0.2 mg/dL (0.2-1) 03/03/19 05:30 AST 7 U/L (15-37) L 03/03/19 05:30 ALT < 6 U/L (13-61) L 03/03/19 05:30 Alkaline Phosphatase 110 U/L (45-117) 03/03/19 05:30 Total Protein 5.4 g/dl (6.4-8.2) L 03/03/19 05:30 Albumin 1.2 g/dl (3.4-5.0) L 03/03/19 05:30 CARDIAC ENZYMES Troponin I < 0.02 ng/ml (0.00-0.05) 02/21/19 15:10 Current Medications Generic Name Dose Route Start Last Admin Trade Name Freq PRN Reason Stop Dose Admin Albuterol/Ipratropium 1 amp 02/21/19 19:04 Duoneb - NEB Q6H PRN SHORTNESS OF BREATH Allopurinol 100 mg 02/22/19 10:00 03/05/19 09:42 Zyloprim - PO 100 mg DAILY CHANTELL Administration Amino Acids 30 ml 02/21/19 22:00 03/05/19 14:15 Prosource No Carb Liquid Pkt PO 30 ml TID CHANTELL Administration Apixaban 2.5 mg 02/21/19 22:00 03/05/19 10:32 Eliquis - PO 2.5 mg BID CHANTELL Administration Atorvastatin Calcium 20 mg 02/21/19 22:00 03/04/19 21:27 Lipitor - PO 20 mg HS CHANTELL Administration Collagenase 1 applic 02/22/19 10:00 03/05/19 09:43 Santyl - TP 1 applic DAILY CHANTELL Administration Protocol Escitalopram Oxalate 10 mg 02/22/19 10:00 03/05/19 09:42 Lexapro - PO 10 mg DAILY CHANTELL Administration Norepinephrine Bitartrate 8, 500 mls @ 18.75 mls/hr 02/23/19 12:45 03/05/19 06:26 000 mcg/ Dextrose IV 2 mcg/min TITR CHANTELL 7.5 mls/hr Titration Protocol 5 MCG/MIN Ceftriaxone Sodium 2 gm/ 100 mls @ 200 mls/hr 02/25/19 10:00 03/05/19 09:42 Dextrose IVPB 200 mls/hr DAILY CHANTELL Administration Protocol Metronidazole 500 mg in 100 mls @ 100 mls/hr 03/04/19 10:00 03/05/19 09:42 Flagyl 500mg Premixed Ivpb - IVPB 100 mls/hr Q8H-IV CHANTELL Administration Sodium Chloride 250 mls @ 3,000 mls/hr 03/05/19 17:11 Normal Saline - IV 03/06/19 17:10 PRN PRN Hypotension during Dialysis Insulin Aspart 1 vial 02/26/19 10:00 03/05/19 06:51 Novolog Vial Sliding Scale - SQ Not Given BIDAC CHANTELL Protocol Lactobacillus Acidophilus 1 tab 02/22/19 10:00 03/05/19 09:42 Bacid - PO 1 tab DAILY CHANTELL Administration Midodrine 10 mg 03/02/19 14:00 03/05/19 14:15 Proamatine - PO 10 mg TID-MID CHANTELL Administration Morphine Sulfate 2 mg 02/28/19 22:48 03/02/19 17:04 Morphine Sulfate IVPUSH 2 mg Q4H PRN Administration PAIN LEVEL 6-10 Multivitamins/Minerals/Vitamin C 1 tab 02/22/19 10:00 03/05/19 09:42 Tab-A-Vit - PO 1 tab DAILY CHANTELL Administration Pantoprazole Sodium 40 mg 03/05/19 12:00 03/05/19 14:14 Protonix Iv IVPUSH 40 mg DAILY CHANTELL Administration Tamsulosin HCl 0.4 mg 02/21/19 22:00 03/04/19 21:27 Flomax - PO 0.4 mg HS CHANTELL Administration Home Medications Medication Instructions Recorded Albuterol 2.5/Ipratropium 0.5 1 amp NEB Q6H PRN #0 amp 07/12/17 [Duoneb -] Allopurinol [Zyloprim -] 100 mg PO DAILY tablet 07/12/17 Atorvastatin Ca [Lipitor] 20 mg PO HS tablet 07/12/17 Collagenase Clostridium Hist. 1 applic TP DAILY tube 09/06/18 [Santyl -] Albuterol Sulfate [Proair Hfa] 2 puff IH Q6H PRN 10/29/18 Escitalopram Oxalate [Lexapro -] 10 mg PO DAILY 10/29/18 Folic Acid/Vit B Complex and C 1 each PO DAILY 10/29/18 [Dialyvite Tablet] Midodrine HCl 10 mg PO MOWEFR 10/29/18 Sevelamer Carbonate [Renvela -] 1,600 mg PO TID 10/29/18 Tamsulosin HCl [Flomax] 0.4 mg PO HS 10/29/18 Insulin Sliding Scale [Novolog 1 vial SQ TIDAC #1 vial 11/17/18 Vial Sliding Scale -] Apixaban [Eliquis -] 5 mg PO BID #30 tablet MDD 2 11/19/18 Collagenase Clostridium Hist. 1 applic TP DAILY #1 tube 01/17/19 [Santyl -] Amoxicillin/Potassium Clav 1 each PO DAILY #7 tablet 02/06/19 [Augmentin 500-125 Tablet] Megestrol Acetate Oral Susp 400 mg PO DAILY #20 cup 02/06/19 [Megace Liquid -] Protein Supplement [Prosource] 275 gm PO TID #60 powder 02/06/19 Lactobacillus Acidophilus [Bacid -] 1 tab PO DAILY #60 tab 02/19/19 Midodrine HCl [Proamatine -] 5 mg PO SuTuThSa #60 tablet 02/19/19 traMADol HCL [Ultram -] 50 mg PO Q6H PRN #60 tablet MDD 4 02/19/19 Microbiology 02/23/19 11:50 Blood - Peripheral Venous Blood Culture - Final NO GROWTH AFTER 5 DAYS INCUBATION 02/23/19 11:50 Blood - Peripheral Venous Blood Culture - Final NO GROWTH AFTER 5 DAYS INCUBATION 02/21/19 13:16 Blood - Peripheral Venous Blood Culture - Final Proteus Mirabilis Prevotella Melaninogenica 02/21/19 16:30 Foot - Left Heel Gram Stain - Final 02/21/19 16:30 Foot - Left Heel Wound Culture - Final Escherichia Coli Esbl Guitar Teacher Morganella Morganii 02/21/19 15:40 Blood - Peripheral Venous Blood Culture - Final Proteus Mirabilis 02/21/19 14:50 Urine - Urine - Catheterized Urine Culture - Final NO GROWTH OBTAINED ASSESSMENT AND PLAN: Patient is a 73 y/o male with PMHx of dementia, CVA, DM, COPD, ESRD, gout, HTN, HLP, recent admission 01/31-02/19 during which he was treated for sepsis due to infected b/l LEs gangrenous ulcers. He was sent from [place] due to poor po intake, and non healing wounds. # Gangrenous b/l LEs. septic shock ,on pressors continue . continue IV antibiotics Rocephin/flagyl. waiting for family decision, Sharlene Mcgee is involved # septic shock due to bacteremia to Proteus Mirabilis, Prevotella Melaninogenica continue IV antibiotics and pressor ID on the case. # Infected sacral decub and scrotum continue IV antibiotics # ESRD on HD , nephro on the case , for HD # DM with sliding scale with coverage # left heel is growing Escherichia Coli Esbl Guitar Teacher, Morganella Morganii continue IV antibiotics Dr. Khan and Sharlene Blanco is on the case. No response from the daughter or any other family members.
[2019-03-05] MEDS: TAMSULOSIN HCL 0.4 MG CAP PO SCH (21:42)
[2019-03-05] MEDS: ATORVASTATIN CA 20 MG TABLET (FP) PO SCH (21:42)
[2019-03-06] MEDS ORDERED: EPINEPHrine 1:10,000 (P-F SYR) 1 MG/10 ML DISP.SYRIN ONE ×2 (01:04→01:07)
[2019-03-06] MEDS: MORPHINE SULFATE 2 MG/ML VIAL IVPUSH PRN ×4 (04:54→18:37)
[2019-03-06] MEDS: NOREPINEPHRINE BITARTRATE 8,000 MCG in DEXTROSE 5%-WATER - 492 ML IV SCH ×3 (05:53→17:30)
[2019-03-06 06:05] LABS: BASO % 0.9 % (0-2.0); EOS % 0.2 % (0-4.5); HEMATOCRIT 26.4 % (35.4-49); HEMOGLOBIN 8.5 GM/dL (11.7-16.9); LYMPH % 15.8 % (8-40); MCHC 32.1 g/dl (32.0-35.9); MEAN CELL VOLUME 90.4 fl (80-96); MEAN PLT VOLUME 8.2 fl (7.5-11.1); MONO % 10.1 % (3.8-10.2); PLATELET COUNT 248 K/MM3 (134-434); RBC 2.91 M/mm3 (4.00-5.60); RDW 18.3 % (11.9-15.9); WHITE BLOOD COUNT 11.6 K/mm3 (4.0-10.0)
[2019-03-06] MEDS: INSULIN SLIDING SCALE (NOVOLOG) 1 VIAL SQ SCH ×2 (06:10→17:46)
[2019-03-06] MEDS: AMINO ACIDS/PROTEIN HYDROLYS 30 ML LIQUID.PKT PO SCH ×3 (06:10→21:18)
[2019-03-06 06:39] LABS: ALBUMIN 1.2 g/dl (3.4-5.0); ALK PHOS 152 U/L (45-117); ANION GAP 5 MMOL/L (8-16); BILIRUBIN,TOTAL 0.3 mg/dL (0.2-1); BLOOD UREA NITROGEN 13.8 mg/dL (7-18); CALCIUM 7.1 mg/dL (8.5-10.1); CHLORIDE 104 mmol/L (98-107); CO2 30 mmol/L (21-32); CREATININE 1.6 mg/dL (0.55-1.3); GLUCOSE,RANDOM 119 mg/dL (74-106); MAGNESIUM 1.7 mg/dL (1.8-2.4); PHOSPHOROUS 1.3 mg/dL (2.5-4.9); POTASSIUM 3.4 mmol/L (3.5-5.1); SGOT/AST 9 U/L (15-37); SGPT/ALT < 6 U/L (13-61); SODIUM 140 mmol/L (136-145); TOT PROT 4.9 g/dl (6.4-8.2)
--- NOTE | 2019-03-06 06:56 | PN ---
Physical Exam: SUBJECTIVE: Patient seen and examined in ICU. Lethargic, in apparent pain. Remains hypotensive on pressors in septic shock. Family has been contacted regarding prognosis and need for discussion of GOC. OBJECTIVE: Vital Signs Period Temp Pulse Resp BP Sys/Zamorano Pulse Ox Last 24 Hr 98.1 F-98.6 F 82-96 16-24 91-131/47-87 96 GENERAL: lethargic, drowsy, oriented 0-1. thin appearing, decreased muscle mass and fat EARS, NOSE, THROAT: dry mucous membranes. LUNGS: CTAB HEART: irregularly irregular s1s2 normal ABDOMEN: Soft, NTND normoactive bowel sounds, ulcer present on sacrum unstagable with foul discharge, scrotum has ulcer no discharge MUSCULOSKELETAL: Normal range of motion at all joints. No bony deformities or tenderness. No CVA tenderness. UPPER EXTREMITIES: 2+ pulses, warm, well-perfused. LOWER EXTREMITIES: b/l wet gangrene with fouls smelling discharge SKIN: Warm, dry, Neuo: lethargic, responsive to pain. Laboratory Results - last 24 hr 03/05/19 03/05/19 03/05/19 08:10 08:10 17:12 WBC 13.7 H RBC 3.27 L Hgb 9.3 L Hct 29.9 L D MCV 91.5 MCH 28.4 MCHC 31.1 L RDW 18.0 H Plt Count 269 MPV 7.9 Absolute Neuts (auto) Neutrophils % Lymphocytes % Monocytes % Eosinophils % Basophils % Nucleated RBC % Sodium 139 Potassium 3.2 L Chloride 101 Carbon Dioxide 30 Anion Gap 8 BUN 21.9 H Creatinine 2.7 H Est GFR (CKD-EPI)AfAm 25.75 Est GFR (CKD-EPI)NonAf 22.21 POC Glucometer 119 Random Glucose 133 H Calcium 7.7 L Phosphorus Magnesium Total Bilirubin AST ALT Alkaline Phosphatase Total Protein Albumin 03/06/19 03/06/19 03/06/19 05:11 05:30 05:30 WBC 11.6 H RBC 2.91 L Hgb 8.5 L Hct 26.4 L MCV 90.4 MCH 29.0 MCHC 32.1 RDW 18.3 H Plt Count 248 MPV 8.2 Absolute Neuts (auto) 8.5 H Neutrophils % 73.0 Lymphocytes % 15.8 D Monocytes % 10.1 Eosinophils % 0.2 Basophils % 0.9 Nucleated RBC % 0 Sodium 140 Potassium 3.4 L Chloride 104 Carbon Dioxide 30 Anion Gap 5 L BUN 13.8 Creatinine 1.6 H Est GFR (CKD-EPI)AfAm 48.47 Est GFR (CKD-EPI)NonAf 41.82 POC Glucometer 117 Random Glucose 119 H Calcium 7.1 L Phosphorus 1.3 L Magnesium 1.7 L Total Bilirubin 0.3 AST 9 L ALT < 6 L Alkaline Phosphatase 152 H Total Protein 4.9 L Albumin 1.2 L Active Medications Generic Name Dose Route Start Last Admin Trade Name Freq PRN Reason Stop Dose Admin Albuterol/Ipratropium 1 amp 02/21/19 19:04 Duoneb - NEB Q6H PRN SHORTNESS OF BREATH Allopurinol 100 mg 02/22/19 10:00 03/05/19 09:42 Zyloprim - PO 100 mg DAILY CHANTELL Administration Amino Acids 30 ml 02/21/19 22:00 03/06/19 06:10 Prosource No Carb Liquid Pkt PO 30 ml TID CHANTELL Administration Apixaban 2.5 mg 02/21/19 22:00 03/05/19 21:42 Eliquis - PO 2.5 mg BID CHANTELL Administration Atorvastatin Calcium 20 mg 02/21/19 22:00 03/05/19 21:42 Lipitor - PO 20 mg HS CHANTELL Administration Collagenase 1 applic 02/22/19 10:00 03/05/19 09:43 Santyl - TP 1 applic DAILY CHANTELL Administration Protocol Escitalopram Oxalate 10 mg 02/22/19 10:00 03/05/19 09:42 Lexapro - PO 10 mg DAILY CHANTELL Administration Norepinephrine Bitartrate 8, 500 mls @ 18.75 mls/hr 02/23/19 12:45 03/06/19 05:53 000 mcg/ Dextrose IV 3 mcg/min TITR CHANTELL 11.25 mls/hr Administration Protocol 5 MCG/MIN Ceftriaxone Sodium 2 gm/ 100 mls @ 200 mls/hr 02/25/19 10:00 03/05/19 09:42 Dextrose IVPB 200 mls/hr DAILY CHANTELL Administration Protocol Metronidazole 500 mg in 100 mls @ 100 mls/hr 03/04/19 10:00 03/06/19 01:31 Flagyl 500mg Premixed Ivpb - IVPB 100 mls/hr Q8H-IV CHANTELL Administration Sodium Chloride 250 mls @ 3,000 mls/hr 03/05/19 17:11 Normal Saline - IV 03/06/19 17:10 PRN PRN Hypotension during Dialysis Insulin Aspart 1 vial 02/26/19 10:00 03/06/19 06:10 Novolog Vial Sliding Scale - SQ Not Given BIDAC CHANTELL Protocol Lactobacillus Acidophilus 1 tab 02/22/19 10:00 03/05/19 09:42 Bacid - PO 1 tab DAILY CHANTELL Administration Midodrine 10 mg 03/02/19 14:00 03/05/19 17:38 Proamatine - PO 10 mg TID-MID CHANTELL Administration Morphine Sulfate 2 mg 02/28/19 22:48 03/06/19 04:54 Morphine Sulfate IVPUSH 2 mg Q4H PRN Administration PAIN LEVEL 6-10 Multivitamins/Minerals/Vitamin C 1 tab 02/22/19 10:00 03/05/19 09:42 Tab-A-Vit - PO 1 tab DAILY CHANTELL Administration Pantoprazole Sodium 40 mg 03/05/19 12:00 03/05/19 14:14 Protonix Iv IVPUSH 40 mg DAILY CHANTELL Administration Tamsulosin HCl 0.4 mg 02/21/19 22:00 03/05/19 21:42 Flomax - PO 0.4 mg HS CHANTELL Administration ASSESSMENT/PLAN: 73 yo M PMH dementia, CVA, DM, COPD, ESRD, gout, HTN, HLP, recent admission 01/31- 02/19 during which he was treated for sepsis due to infected b/l feet ulcers/ gangrene. [facility] was sent [facility] due to poor po intake, and worsening of ulcers. Now in septic shock 2/2 DM gangrenous B/L feet infx, Infected sacral decub and scrotal ulcer, and GN bacteremia , requiring ICU and pressors #septic shock 2/2 DM gangrenous B/L feet infx, Infected sacral decub and scrotal ulcer, and GN bacteremia (proteus, prevotella) - requiring ICU and pressors, +Leukocytosis -old cx with E coli, ESBL, MRSA, and VRE. -contact isolation for MDRO -s/p Vanc and Zosyn in the ED, Gentamicin x1, Meropenem x2 in ICU -Bcx 02/21/19 growing GN cher - proteus and prevotella -ucx neg -wound cx E coli, morganella -Bcx 02/23/19 neg -ID consulted, Rangel -lactic acid resolved -palliative care consulted -c/w ceftriaxone 2g/flagyl day #12 antibiotics, per ID recs -Aspiration precautions. -Levophed gtt, Titrate pressors to keep MAP>65 -vascular surgery consulted, Dr harry, for wound care. amputation indicated, but family not amenable. cont GOC -per ID no vanc, cx show no MRSA for >48hr #ESRD on HD (MWF) -nephro consulted (Dr. Henriquez) -HD as per nephro ned held by nephro for low phos. #Acute on chronic anemia likely 2/2 ESRD -monitor H/H #Severe protein calorie malnutrition -albumin 1.1, prealbumin 3.5 -thin appearing, decreased muscle mass and fat -decreased overall PO intake -Encourage Magic cup, Ensure pudding for increased density of nutritional intake #COPD -keep SpO2>90% -Duonebs q6h PRN #Dm ISS BGM ACHS #H/o hypotension : c/w home midodrine monitor vitals # h/o afib c/w elequis 2.5 bid #FEN -Not on any standing fluids -replete prn -NGT on tube feeds #Prophylaxis -Eliquis 2.5mg BID -Protonix IV while on AC and pressors -bacid #Disposition -full code -GOC/ethics consult placed, as we have attempted multiple times to contact daughter who has not been responsive and in the past has not been amenable to to allow for source control/amputation and standard of care. given patients inability to make decisions for himself and daughter unwillingness pt will likely cont to suffer w/o improvement and has spoor prognosis. yesterday multiple times various members of primary team and ICU team tried contacting daughter and brother for GOC/ethics meeting. Resident Dr Milton was able to make contact but no meaningful discussion was able to take place, please see Dr Milton note for further detail. still no response from brother. will cont to call today -ICU monitoring Visit type - Emergency Visit Emergency Visit: Yes ED Registration Date: 02/21/19 Care time: The patient presented to the Emergency Department on the above date and was hospitalized for further evaluation of their emergent condition. - New Patient This patient is new to me today: Yes Date on this admission: 03/06/19 - Critical Care Critical Care patient: Yes Total Critical Care Time (in minutes): 39 Critical Care Statement: The care of this patient involved high complexity decision making to prevent further life threatening deterioration of the patient 's condition and/or to evaluate & treat vital organ system(s) failure or risk of failure.
[2019-03-06] MEDS ORDERED: MAGNESIUM SULF 50% (8.12 MEQ/2 ML-1 GM VIAL) IVPB ONE (07:39)
[2019-03-06] MEDS ORDERED: DEXTROSE 5%-WATER 100 ML IVPB ONE (09:16)
--- NOTE | 2019-03-06 09:17 | PN ---
Physical Exam: SUBJECTIVE: Patient seen and examined at bedside. levo of 3 overnight. No acute events. OBJECTIVE: Vital Signs Period Temp Pulse Resp BP Sys/Zamorano Pulse Ox Last 24 Hr 98.1 F-98.6 F 82-96 16-26 91-131/47-75 96-97 GENERAL: A&Ox0, no acute distress EYES: PERRLA, EOMI ENT: Dry mucus membranes NECK: No JVD LUNGS: mildly coarse breath sounds, no wheezes HEART: RRR, systolic murmur noted on exam EXTREMITIES: 2+ pulses, no edema. SKIN: bilateral gangrene lower ext down to the tendon on the left with purulent foul smelling discharge. Unstageble sacral ulcer Laboratory Results - last 24 hr 03/05/19 03/05/19 03/06/19 08:10 17:12 05:11 WBC 13.7 H RBC 3.27 L Hgb 9.3 L Hct 29.9 L D MCV 91.5 MCH 28.4 MCHC 31.1 L RDW 18.0 H Plt Count 269 MPV 7.9 Absolute Neuts (auto) Neutrophils % Lymphocytes % Monocytes % Eosinophils % Basophils % Nucleated RBC % Sodium Potassium Chloride Carbon Dioxide Anion Gap BUN Creatinine Est GFR (CKD-EPI)AfAm Est GFR (CKD-EPI)NonAf POC Glucometer 119 117 Random Glucose Calcium Phosphorus Magnesium Total Bilirubin AST ALT Alkaline Phosphatase Total Protein Albumin 03/06/19 03/06/19 05:30 05:30 WBC 11.6 H RBC 2.91 L Hgb 8.5 L Hct 26.4 L MCV 90.4 MCH 29.0 MCHC 32.1 RDW 18.3 H Plt Count 248 MPV 8.2 Absolute Neuts (auto) 8.5 H Neutrophils % 73.0 Lymphocytes % 15.8 D Monocytes % 10.1 Eosinophils % 0.2 Basophils % 0.9 Nucleated RBC % 0 Sodium 140 Potassium 3.4 L Chloride 104 Carbon Dioxide 30 Anion Gap 5 L BUN 13.8 Creatinine 1.6 H Est GFR (CKD-EPI)AfAm 48.47 Est GFR (CKD-EPI)NonAf 41.82 POC Glucometer Random Glucose 119 H Calcium 7.1 L Phosphorus 1.3 L Magnesium 1.7 L Total Bilirubin 0.3 AST 9 L ALT < 6 L Alkaline Phosphatase 152 H Total Protein 4.9 L Albumin 1.2 L Active Medications Generic Name Dose Route Start Last Admin Trade Name Kassandra PRN Reason Stop Dose Admin Albuterol/Ipratropium 1 amp 02/21/19 19:04 Duoneb - NEB Q6H PRN SHORTNESS OF BREATH Allopurinol 100 mg 02/22/19 10:00 03/05/19 09:42 Zyloprim - PO 100 mg DAILY CHANTELL Administration Amino Acids 30 ml 02/21/19 22:00 03/06/19 06:10 Prosource No Carb Liquid Pkt PO 30 ml TID CHANTELL Administration Apixaban 2.5 mg 02/21/19 22:00 03/05/19 21:42 Eliquis - PO 2.5 mg BID CHANTELL Administration Atorvastatin Calcium 20 mg 02/21/19 22:00 03/05/19 21:42 Lipitor - PO 20 mg HS CHANTELL Administration Collagenase 1 applic 02/22/19 10:00 03/05/19 09:43 Santyl - TP 1 applic DAILY CHANTELL Administration Protocol Escitalopram Oxalate 10 mg 02/22/19 10:00 03/05/19 09:42 Lexapro - PO 10 mg DAILY CHANTELL Administration Norepinephrine Bitartrate 8, 500 mls @ 18.75 mls/hr 02/23/19 12:45 03/06/19 07:10 000 mcg/ Dextrose IV 2 mcg/min TITR CHANTELL 7.5 mls/hr Titration Protocol 5 MCG/MIN Ceftriaxone Sodium 2 gm/ 100 mls @ 200 mls/hr 02/25/19 10:00 03/05/19 09:42 Dextrose IVPB 200 mls/hr DAILY CHANTELL Administration Protocol Metronidazole 500 mg in 100 mls @ 100 mls/hr 03/04/19 10:00 03/06/19 01:31 Flagyl 500mg Premixed Ivpb - IVPB 100 mls/hr Q8H-IV CHANTELL Administration Sodium Chloride 250 mls @ 3,000 mls/hr 03/05/19 17:11 Normal Saline - IV 03/06/19 17:10 PRN PRN Hypotension during Dialysis Insulin Aspart 1 vial 02/26/19 10:00 03/06/19 06:10 Novolog Vial Sliding Scale - SQ Not Given BIDAC CHANTELL Protocol Lactobacillus Acidophilus 1 tab 02/22/19 10:00 03/05/19 09:42 Bacid - PO 1 tab DAILY CHANTELL Administration Midodrine 10 mg 03/02/19 14:00 03/05/19 17:38 Proamatine - PO 10 mg TID-MID CHANTELL Administration Morphine Sulfate 2 mg 02/28/19 22:48 03/06/19 04:54 Morphine Sulfate IVPUSH 2 mg Q4H PRN Administration PAIN LEVEL 6-10 Multivitamins/Minerals/Vitamin C 1 tab 02/22/19 10:00 03/05/19 09:42 Tab-A-Vit - PO 1 tab DAILY CHANTELL Administration Pantoprazole Sodium 40 mg 03/05/19 12:00 03/05/19 14:14 Protonix Iv IVPUSH 40 mg DAILY CHANTELL Administration Tamsulosin HCl 0.4 mg 02/21/19 22:00 03/05/19 21:42 Flomax - PO 0.4 mg HS CHANTELL Administration ASSESSMENT/PLAN: Central line placed 02/22 - 12 days as of today Multiple calls to contact family have thus far failed. Called once again yesterday without any response. #septic shock 2/2 DM gangrenous B/L feet infx, Infected sacral decub and scrotal ulcer, and GN bacteremia (proteus, prevotella) - requiring ICU and pressors, +L IJ. +Leukocytosis -contact isolation for MDRO -ceftriaxone/flagyl -Dysphagia puree diet ordered, stop if pt vomits/aspirates -ID consulted -palliative care consulted -Aspiration precautions. -levophed 3 overnight, turned off this morning, will monitor pressure, transfer to floor if patient does not need pressors -vascular surgery consulted, Dr harry, for wound care. amputation indicated, but family not amenable. cont GOC #ESRD on HD (MWF) -nephro consulted (Dr. Henriquez) -HD tmr as per Nephro #Acute on chronic anemia likely 2/2 ESRD -monitor H/H #Severe protein calorie malnutrition -thin appearing, decreased muscle mass and fat -decreased overall PO intake -Encourage Magic cup, Ensure pudding for increased density of nutritional intake #COPD -keep SpO2>90% -Duonebs q6h PRN #Dm ISS BGM ACHS #H/o hypotension : c/w home midodrine monitor vitals # h/o afib c/w elequis 2.5 bid #FEN -Not on any standing fluids -replete prn -tolerating puree diet, per speech eval #Prophylaxis -Eliquis 2.5mg BID #Disposition -full code. Visit type - Emergency Visit Emergency Visit: No - New Patient This patient is new to me today: No - Critical Care Critical Care patient: Yes Total Critical Care Time (in minutes): 35 Critical Care Statement: The care of this patient involved high complexity decision making to prevent further life threatening deterioration of the patient 's condition and/or to evaluate & treat vital organ system(s) failure or risk of failure.
[2019-03-06] MEDS: CEFTRIAXONE 2 GM in DEXTROSE 5%-WATER 100 ML IVPB SCH (09:26)
[2019-03-06] MEDS: MIDODRINE HCL 5 MG TABLET PO SCH ×3 (09:27→17:15)
[2019-03-06] MEDS: MULTIVITAMINS (DAILY MVI) TABLET (FP) PO SCH (09:28)
[2019-03-06] MEDS: APIXABAN 2.5 MG TABLET PO SCH ×2 (09:28→21:18)
[2019-03-06] MEDS: ESCITALOPRAM OXALATE 10 MG TABLET (FP) PO SCH (09:28)
[2019-03-06] MEDS: ALLOPURINOL 100 MG TABLET (FP) PO SCH (09:28)
[2019-03-06] MEDS: PANTOPRAZOLE SODIUM 40 MG VIAL IVPUSH SCH (09:28)
[2019-03-06] MEDS: LACTOBACILLUS ACIDOPHILUS 1 TABLET PO SCH (09:28)
[2019-03-06] MEDS ORDERED: PT OWN MED DRAWER 7, Y5N ONE (10:46)
[2019-03-06] MEDS ORDERED: ALBUMIN HUMAN 25% 12.5 GM/50 ML VIAL IVPB SCH (11:15)
--- NOTE | 2019-03-06 12:04 | PN ---
Teaching Attending Note Name of Resident: Fili Miller ATTENDING PHYSICIAN STATEMENT I saw and evaluated the patient. I reviewed the resident's note and discussed the case with the resident. I agree with the resident's findings and plan as documented. SUBJECTIVE: Pt seen and examined in the ICU. Placed back on low dose levophed gtt after HD yesterday. Lethargic but arousable. OBJECTIVE: Vital Signs Period Temp Pulse Resp BP Sys/Zamorano Pulse Ox Last 24 Hr 98.1 F-98.6 F 82-98 16-26 91-131/47-75 96-97 Intake & Output 03/03/19 03/04/19 03/05/19 03/06/19 23:59 23:59 23:59 23:59 Intake Total 1130 585.3 1360 389 Balance 1130 585.3 1360 389 Weight 66.905 kg 65.635 kg 67.495 kg 64.909 kg Gen: lethargic but arousable Heart: RRR Lung: decreased breath sounds at the bases Abd: soft, nontender Ext: no edema, wrapped CBC, BMP 03/06/19 05:30 03/06/19 05:30 Active Medications Albumin Human (Albumin Human 25%) 25 gm IVPB Q30M [facility] Stop: 03/06/19 12:16 Albuterol/Ipratropium (Duoneb -) 1 amp NEB Q6H PRN PRN Reason: SHORTNESS OF BREATH Allopurinol (Zyloprim -) 100 mg PO DAILY [facility] Last Admin: 03/06/19 09:28 Dose: 100 mg Amino Acids (Prosource No Carb Liquid Pkt) 30 ml PO TID [facility] Last Admin: 03/06/19 06:10 Dose: 30 ml Apixaban (Eliquis -) 2.5 mg PO BID [facility] Last Admin: 03/06/19 09:28 Dose: 2.5 mg Atorvastatin Calcium (Lipitor -) 20 mg PO HS [facility] Last Admin: 03/05/19 21:42 Dose: 20 mg Collagenase (Santyl -) 1 applic TP DAILY [facility]; Protocol Last Admin: 03/05/19 09:43 Dose: 1 applic Escitalopram Oxalate (Lexapro -) 10 mg PO DAILY [facility] Last Admin: 03/06/19 09:28 Dose: 10 mg Norepinephrine Bitartrate 8, (000 mcg/ Dextrose) 500 mls @ 18.75 mls/hr IV TITR [facility]; Protocol Last Titration: 03/06/19 08:45 Dose: 0 mcg/min, 0 mls/hr Ceftriaxone Sodium 2 gm/ (Dextrose) 100 mls @ 200 mls/hr IVPB DAILY [facility]; Protocol Last Admin: 03/06/19 09:26 Dose: 200 mls/hr Metronidazole (Flagyl 500mg Premixed Ivpb -) 500 mg in 100 mls @ 100 mls/hr IVPB Q8H-IV [facility] Last Admin: 03/06/19 09:27 Dose: 100 mls/hr Sodium Chloride (Normal Saline -) 250 mls @ 3,000 mls/hr IV PRN PRN PRN Reason: Hypotension during Dialysis Stop: 03/06/19 17:10 Insulin Aspart (Novolog Vial Sliding Scale -) 1 vial SQ BIDAC [facility]; Protocol Last Admin: 03/06/19 06:10 Dose: Not Given Lactobacillus Acidophilus (Bacid -) 1 tab PO DAILY [facility] Last Admin: 03/06/19 09:28 Dose: 1 tab Midodrine (Proamatine -) 10 mg PO TID-MID [facility] Last Admin: 03/06/19 09:27 Dose: 10 mg Morphine Sulfate (Morphine Sulfate) 2 mg IVPUSH Q4H PRN PRN Reason: PAIN LEVEL 6-10 Last Admin: 03/06/19 09:28 Dose: 2 mg Multivitamins/Minerals/Vitamin C (Tab-A-Vit -) 1 tab PO DAILY [facility] Last Admin: 03/06/19 09:28 Dose: 1 tab Pantoprazole Sodium (Protonix Iv) 40 mg IVPUSH DAILY [facility] Last Admin: 03/06/19 09:28 Dose: 40 mg Tamsulosin HCl (Flomax -) 0.4 mg PO HS [facility] Last Admin: 03/05/19 21:42 Dose: 0.4 mg ASSESSMENT AND PLAN: Bilateral Feet Gangrene Infected Decubitus Ulcers Gram Negative Bacteremia Septic Shock ESRD on HD DM HTN Hyperlipidemia h/o CVA - continue antibiotics per ID - continue midodrine - taper off pressors to maintain MAP >65 - bolus albumin - transfuse PRBC - monitor H/H - wound care - HD per renal - aspiration precautions - continue attempts to contact family regarding goals of care, advanced directives - DVT prophylaxis - can monitor on floor if remains off pressors critical care time spent in reviewing chart, evaluating patient and formulating plan 35 min
--- NOTE | 2019-03-06 12:14 | PN ---
Progress Note, Physician History of Present Illness: Pt seen and examined at bedside. He remains in the ICU. He is lethargic. - Current Medication List Current Medications: Active Medications Albumin Human (Albumin Human 25%) 25 gm IVPB Q30M [facility] Stop: 03/06/19 13:31 Albuterol/Ipratropium (Duoneb -) 1 amp NEB Q6H PRN PRN Reason: SHORTNESS OF BREATH Allopurinol (Zyloprim -) 100 mg PO DAILY [facility] Last Admin: 03/06/19 09:28 Dose: 100 mg Amino Acids (Prosource No Carb Liquid Pkt) 30 ml PO TID [facility] Last Admin: 03/06/19 06:10 Dose: 30 ml Apixaban (Eliquis -) 2.5 mg PO BID [facility] Last Admin: 03/06/19 09:28 Dose: 2.5 mg Atorvastatin Calcium (Lipitor -) 20 mg PO HS [facility] Last Admin: 03/05/19 21:42 Dose: 20 mg Collagenase (Santyl -) 1 applic TP DAILY [facility]; Protocol Last Admin: 03/05/19 09:43 Dose: 1 applic Escitalopram Oxalate (Lexapro -) 10 mg PO DAILY [facility] Last Admin: 03/06/19 09:28 Dose: 10 mg Norepinephrine Bitartrate 8, (000 mcg/ Dextrose) 500 mls @ 18.75 mls/hr IV TITR [facility]; Protocol Last Titration: 03/06/19 08:45 Dose: 0 mcg/min, 0 mls/hr Ceftriaxone Sodium 2 gm/ (Dextrose) 100 mls @ 200 mls/hr IVPB DAILY [facility]; Protocol Last Admin: 03/06/19 09:26 Dose: 200 mls/hr Metronidazole (Flagyl 500mg Premixed Ivpb -) 500 mg in 100 mls @ 100 mls/hr IVPB Q8H-IV [facility] Last Admin: 03/06/19 09:27 Dose: 100 mls/hr Sodium Chloride (Normal Saline -) 250 mls @ 3,000 mls/hr IV PRN PRN PRN Reason: Hypotension during Dialysis Stop: 03/06/19 17:10 Insulin Aspart (Novolog Vial Sliding Scale -) 1 vial SQ BIDAC [facility]; Protocol Last Admin: 03/06/19 06:10 Dose: Not Given Lactobacillus Acidophilus (Bacid -) 1 tab PO DAILY [facility] Last Admin: 03/06/19 09:28 Dose: 1 tab Midodrine (Proamatine -) 10 mg PO TID-MID [facility] Last Admin: 03/06/19 09:27 Dose: 10 mg Morphine Sulfate (Morphine Sulfate) 2 mg IVPUSH Q4H PRN PRN Reason: PAIN LEVEL 6-10 Last Admin: 03/06/19 09:28 Dose: 2 mg Multivitamins/Minerals/Vitamin C (Tab-A-Vit -) 1 tab PO DAILY [facility] Last Admin: 03/06/19 09:28 Dose: 1 tab Pantoprazole Sodium (Protonix Iv) 40 mg IVPUSH DAILY [facility] Last Admin: 03/06/19 09:28 Dose: 40 mg Tamsulosin HCl (Flomax -) 0.4 mg PO HS [facility] Last Admin: 03/05/19 21:42 Dose: 0.4 mg - Objective Vital Signs: Vital Signs Temperature 98.4 F 03/06/19 06:00 Pulse Rate 98 H 03/06/19 10:00 Respiratory Rate 23 H 03/06/19 10:00 Blood Pressure 128/74 03/06/19 10:00 O2 Sat by Pulse Oximetry (%) 97 03/06/19 08:21 Constitutional: Yes: Calm Eyes: Yes: Conjunctiva Clear HENT: Yes: Atraumatic Cardiovascular: Yes: S1, S2 Respiratory: Yes: On Nasal O2 Gastrointestinal: Yes: Soft Genitourinary: Yes: Incontinence Musculoskeletal: Yes: Muscle Weakness Edema: No Wound/Incision: Yes: Other (odor from wounds) Neurological: Yes: Lethargy Labs: CBC, BMP 03/06/19 05:30 03/06/19 05:30 INR, PTT INR 1.44 (0.83-1.09) H 02/22/19 05:40 Assessment/Plan Current Medications Generic Name Dose Route Start Last Admin Trade Name Freq PRN Reason Stop Dose Admin Albumin Human 25 gm 03/06/19 12:30 Albumin Human 25% IVPB 03/06/19 13:31 Q30M [facility] Albuterol/Ipratropium 1 amp 02/21/19 19:04 Duoneb - NEB Q6H PRN SHORTNESS OF BREATH Allopurinol 100 mg 02/22/19 10:00 03/06/19 09:28 Zyloprim - PO 100 mg DAILY [facility] Administration Amino Acids 30 ml 02/21/19 22:00 03/06/19 06:10 Prosource No Carb Liquid Pkt PO 30 ml TID [facility] Administration Apixaban 2.5 mg 02/21/19 22:00 03/06/19 09:28 Eliquis - PO 2.5 mg BID [facility] Administration Atorvastatin Calcium 20 mg 02/21/19 22:00 03/05/19 21:42 Lipitor - PO 20 mg HS [facility] Administration Collagenase 1 applic 02/22/19 10:00 03/05/19 09:43 Santyl - TP 1 applic DAILY [facility] Administration Protocol Escitalopram Oxalate 10 mg 02/22/19 10:00 03/06/19 09:28 Lexapro - PO 10 mg DAILY [facility] Administration Norepinephrine Bitartrate 8, 500 mls @ 18.75 mls/hr 02/23/19 12:45 03/06/19 08:45 000 mcg/ Dextrose IV 0 mcg/min TITR [facility] 0 mls/hr Titration Protocol 5 MCG/MIN Ceftriaxone Sodium 2 gm/ 100 mls @ 200 mls/hr 02/25/19 10:00 03/06/19 09:26 Dextrose IVPB 200 mls/hr DAILY [facility] Administration Protocol Metronidazole 500 mg in 100 mls @ 100 mls/hr 03/04/19 10:00 03/06/19 09:27 Flagyl 500mg Premixed Ivpb - IVPB 100 mls/hr Q8H-IV [facility] Administration Sodium Chloride 250 mls @ 3,000 mls/hr 03/05/19 17:11 Normal Saline - IV 03/06/19 17:10 PRN PRN Hypotension during Dialysis Insulin Aspart 1 vial 02/26/19 10:00 03/06/19 06:10 Novolog Vial Sliding Scale - SQ Not Given BIDAC [facility] Protocol Lactobacillus Acidophilus 1 tab 02/22/19 10:00 03/06/19 09:28 Bacid - PO 1 tab DAILY [facility] Administration Midodrine 10 mg 03/02/19 14:00 03/06/19 09:27 Proamatine - PO 10 mg TID-MID [facility] Administration Morphine Sulfate 2 mg 02/28/19 22:48 03/06/19 09:28 Morphine Sulfate IVPUSH 2 mg Q4H PRN Administration PAIN LEVEL 6-10 Multivitamins/Minerals/Vitamin C 1 tab 02/22/19 10:00 03/06/19 09:28 Tab-A-Vit - PO 1 tab DAILY [facility] Administration Pantoprazole Sodium 40 mg 03/05/19 12:00 03/06/19 09:28 Protonix Iv IVPUSH 40 mg DAILY [facility] Administration Tamsulosin HCl 0.4 mg 02/21/19 22:00 03/05/19 21:42 Flomax - PO 0.4 mg HS [facility] Administration Impression 1. ESRD 2. gangrene 3. DM 4. hyperlipidemia 5. HTN 6. gout 7. proteinuria 8. hypotension 9. sepsis Plan - next HD tomorrow - abx per ID - wound care - prognosis is poor - renal diet - family refusing debridement
[2019-03-06] MEDS: COLLAGENASE CLOSTRIDIUM HIST. 30 GRAMS TUBE TP SCH (12:15)
[2019-03-06] MEDS ORDERED: NAPH,MB-DB/K PH,MBDB POWDER PACKET PO ONE (12:32)
[2019-03-06] MEDS: ALBUMIN HUMAN 25% 12.5 GM/50 ML VIAL IVPB SCH ×3 (13:50→16:00)
[2019-03-06] MEDS ORDERED: SODIUM CHLORIDE 500 ML IV STA (15:10)
--- NOTE | 2019-03-06 15:50 | PN ---
Teaching Attending Note Name of Resident: Mathew Adorno ATTENDING PHYSICIAN STATEMENT I saw and evaluated the patient. I reviewed the resident's note and discussed the case with the resident. I agree with the resident's findings and plan as documented. SUBJECTIVE: No events over night . unable to obtain hx. OBJECTIVE: NAD, opens eyes to verbal stimuli CV: RRR, no MRG Lungs: clear anteriorly. Abd: soft, NT, ND , NL BS SKin: sacral and scrotal decub were not examined today EXt: L leg with gangrenous heal with thick purulent discharge and exposed tendons on dorsal aspect. R foot with edema , erythema, gangrene and esposed tendons. ASSESSMENT AND PLAN: 73 y/o man with h/o dementia, CVA, DM, COPD, ESRD, gout, HTN, HLP, recent admission 01/31-02/19 during which he was treated for sepsis due to infected b/l feet ulcers/gangrene. He was sent form NH due to poor po intake, and non healing wounds 1- Gangrene of b/l feet. infection in diabetic feet. 2- Septic shock : resolved 3- Infected sacral decub and scrotal ulcer 4- Proteus bacteremia ,polymicrobial wound 5- ESRD 6- DM 7- hypophosphatemia 8- hypokalemia 9- hypomagnesemia 1- anemia plan : - Abx: cont ceftiraxone and flagyl - off Levophed since 8 am. - HD per schedule - monitor and replete electrolytes as needed. - SSI - s/p 1 unit of RBcs yesterday Daughter chose to be indefinitely unreachable ( per d/w ICU resident ). Ethics committee on the case.
--- NOTE | 2019-03-06 16:25 | PN ---
Physical Exam: SUBJECTIVE: Patient seen and examined at bedside. Required 3 mcq levo to maintain MAP above 65 Remains lethargic but follows basic commands. OBJECTIVE: Vital Signs Period Temp Pulse Resp BP Sys/Zamorano Pulse Ox Last 24 Hr 98.1 F-98.4 F 86-100 16-26 92-128/33-74 96-97 GENERAL: The patient is awake, alert, baseline dementia, in no acute distress. HEAD: Normal with no signs of trauma. EYES: PERRL, extraocular movements intact, sclera anicteric, conjunctiva clear. No ptosis. ENT: Ears normal, nares patent, oropharynx clear without exudates, moist mucous membranes. NECK: Trachea midline, full range of motion, supple. LUNGS: Breath sounds equal, clear to auscultation bilaterally, no wheezes, no crackles, no accessory muscle use. HEART: Regular rate and rhythm, S1, S2 without murmur, rub or gallop. ABDOMEN: Soft, nontender, nondistended, normoactive bowel sounds, no guarding, no rebound, no hepatosplenomegaly, no masses. EXTREMITIES: bilateral gangrene lower ext down to the tendon on the left with unstageble sacral ulcer NEUROLOGICAL: Cranial nerves II through XII grossly intact. Follows basic commands PSYCH: Normal mood, normal affect. SKIN: bilateral gangrene lower ext down to the tendon on the left with purulent foul smelling discharge. Unstageble sacral ulcer with Laboratory Results - last 24 hr 03/05/19 03/06/19 03/06/19 17:12 05:11 05:30 WBC 11.6 H RBC 2.91 L Hgb 8.5 L Hct 26.4 L MCV 90.4 MCH 29.0 MCHC 32.1 RDW 18.3 H Plt Count 248 MPV 8.2 Absolute Neuts (auto) 8.5 H Neutrophils % 73.0 Lymphocytes % 15.8 D Monocytes % 10.1 Eosinophils % 0.2 Basophils % 0.9 Nucleated RBC % 0 Sodium Potassium Chloride Carbon Dioxide Anion Gap BUN Creatinine Est GFR (CKD-EPI)AfAm Est GFR (CKD-EPI)NonAf POC Glucometer 119 117 Random Glucose Calcium Phosphorus Magnesium Total Bilirubin AST ALT Alkaline Phosphatase Total Protein Albumin 03/06/19 05:30 WBC RBC Hgb Hct MCV MCH MCHC RDW Plt Count MPV Absolute Neuts (auto) Neutrophils % Lymphocytes % Monocytes % Eosinophils % Basophils % Nucleated RBC % Sodium 140 Potassium 3.4 L Chloride 104 Carbon Dioxide 30 Anion Gap 5 L BUN 13.8 Creatinine 1.6 H Est GFR (CKD-EPI)AfAm 48.47 Est GFR (CKD-EPI)NonAf 41.82 POC Glucometer Random Glucose 119 H Calcium 7.1 L Phosphorus 1.3 L Magnesium 1.7 L Total Bilirubin 0.3 AST 9 L ALT < 6 L Alkaline Phosphatase 152 H Total Protein 4.9 L Albumin 1.2 L Active Medications Generic Name Dose Route Start Last Admin Trade Name Freq PRN Reason Stop Dose Admin Albumin Human 12.5 gm 03/07/19 12:15 Albumin Human 25% IVPB Q30M [facility] Albuterol/Ipratropium 1 amp 02/21/19 19:04 Duoneb - NEB Q6H PRN SHORTNESS OF BREATH Allopurinol 100 mg 02/22/19 10:00 03/06/19 09:28 Zyloprim - PO 100 mg DAILY [facility] Administration Amino Acids 30 ml 02/21/19 22:00 03/06/19 13:51 Prosource No Carb Liquid Pkt PO 30 ml TID [facility] Administration Apixaban 2.5 mg 02/21/19 22:00 03/06/19 09:28 Eliquis - PO 2.5 mg BID [facility] Administration Atorvastatin Calcium 20 mg 02/21/19 22:00 03/05/19 21:42 Lipitor - PO 20 mg HS [facility] Administration Collagenase 1 applic 02/22/19 10:00 03/06/19 12:15 Santyl - TP 1 applic DAILY [facility] Administration Protocol Epoetin Jose 10,000 unit 03/07/19 12:14 Epogen - IVPUSH 03/07/19 12:15 ONCE ONE Escitalopram Oxalate 10 mg 02/22/19 10:00 03/06/19 09:28 Lexapro - PO 10 mg DAILY [facility] Administration Norepinephrine Bitartrate 8, 500 mls @ 18.75 mls/hr 02/23/19 12:45 03/06/19 14:14 000 mcg/ Dextrose IV Not Given TITR [facility] Protocol 5 MCG/MIN Ceftriaxone Sodium 2 gm/ 100 mls @ 200 mls/hr 02/25/19 10:00 03/06/19 09:26 Dextrose IVPB 200 mls/hr DAILY [facility] Administration Protocol Metronidazole 500 mg in 100 mls @ 100 mls/hr 03/04/19 10:00 03/06/19 09:27 Flagyl 500mg Premixed Ivpb - IVPB 100 mls/hr Q8H-IV [facility] Administration Sodium Chloride 250 mls @ 3,000 mls/hr 03/05/19 17:11 Normal Saline - IV 03/06/19 17:10 PRN PRN Hypotension during Dialysis Sodium Chloride 250 mls @ 3,000 mls/hr 03/06/19 12:14 Normal Saline - IV 03/07/19 12:14 PRN PRN Hypotension during Dialysis Insulin Aspart 1 vial 02/26/19 10:00 03/06/19 06:10 Novolog Vial Sliding Scale - SQ Not Given BIDAC [facility] Protocol Lactobacillus Acidophilus 1 tab 02/22/19 10:00 03/06/19 09:28 Bacid - PO 1 tab DAILY [facility] Administration Midodrine 10 mg 03/02/19 14:00 03/06/19 13:51 Proamatine - PO 10 mg TID-MID [facility] Administration Morphine Sulfate 2 mg 02/28/19 22:48 03/06/19 13:57 Morphine Sulfate IVPUSH 2 mg Q4H PRN Administration PAIN LEVEL 6-10 Multivitamins/Minerals/Vitamin C 1 tab 02/22/19 10:00 03/06/19 09:28 Tab-A-Vit - PO 1 tab DAILY [facility] Administration Pantoprazole Sodium 40 mg 03/05/19 12:00 03/06/19 09:28 Protonix Iv IVPUSH 40 mg DAILY [facility] Administration Tamsulosin HCl 0.4 mg 02/21/19 22:00 03/05/19 21:42 Flomax - PO 0.4 mg HS [facility] Administration ASSESSMENT/PLAN: Central line placed 02/22 Attempted to contact pts daughter, no answer. #septic shock 2/2 DM gangrenous B/L feet infx, Infected sacral decub and scrotal ulcer, and GN bacteremia (proteus, prevotella) - requiring ICU and pressors, +L IJ. +Leukocytosis -old cx with E coli, ESBL, MRSA, and VRE. -contact isolation for MDRO -s/p Vanc and Zosyn in the ED, Gentamicin x1, Meropenem x2 in ICU -c/w ceftriaxone 2g/flagyl d4, per ID recs -Bcx 5/30/19 growing GN cher - proteus and prevotella -ucx neg -Dysphagia puree diet ordered, stop if pt vomits/aspirates -wound cx E coli, morganella -Bcx 02/23/19 neg -ID consulted -lactic acid resolved -palliative care consulted -Aspiration precautions. -Levophed gtt 2, Titrate pressors to keep MAP>65. Continue to wean -vascular surgery consulted, Dr harry, for wound care. amputation indicated, but family not amenable. cont GOC #ESRD on HD (MWF) -nephro consulted (Dr. Henriquez) -HD tmr as per Nephro ned held by nephro for low phos. #Acute on chronic anemia likely 2/2 ESRD -monitor H/H #Severe protein calorie malnutrition -albumin 1.1, prealbumin 3.5 -thin appearing, decreased muscle mass and fat -decreased overall PO intake -Encourage Magic cup, Ensure pudding for increased density of nutritional intake #COPD -keep SpO2>90% -Duonebs q6h PRN #Dm ISS BGM ACHS #H/o hypotension : c/w home midodrine monitor vitals # h/o afib c/w elequis 2.5 bid #FEN -Not on any standing fluids -replete prn -tolerating puree diet, per speech eval #Prophylaxis -Eliquis 2.5mg BID #Disposition -full code. Visit type - Emergency Visit Emergency Visit: No - New Patient This patient is new to me today: No - Critical Care Critical Care patient: Yes Total Critical Care Time (in minutes): 36 Critical Care Statement: The care of this patient involved high complexity decision making to prevent further life threatening deterioration of the patient 's condition and/or to evaluate & treat vital organ system(s) failure or risk of failure.
--- NOTE | 2019-03-06 18:28 | PN ---
Progress Note (short form) - Note Progress Note: off pressors since this am tube feeds via ngt ongoing Vital Signs Period Temp Pulse Resp BP Sys/Zamorano Pulse Ox Last 24 Hr 98.1 F-98.9 F 90-100 15-26 92-128/33-74 96-97 cor-rrr lungs decreased bs at bases abd soft,nt ext dressings intact- d/w nurse- wounds unchanged- purulent and gangrenous CBC, BMP 03/06/19 05:30 03/06/19 05:30 Microbiology 02/23/19 11:50 Blood - Peripheral Venous Blood Culture - Final NO GROWTH AFTER 5 DAYS INCUBATION 02/23/19 11:50 Blood - Peripheral Venous Blood Culture - Final NO GROWTH AFTER 5 DAYS INCUBATION 02/21/19 13:16 Blood - Peripheral Venous Blood Culture - Final Proteus Mirabilis Prevotella Melaninogenica 02/21/19 16:30 Foot - Left Heel Gram Stain - Final 02/21/19 16:30 Foot - Left Heel Wound Culture - Final Escherichia Coli Esbl Booking Agent Morganella Morganii 02/21/19 15:40 Blood - Peripheral Venous Blood Culture - Final Proteus Mirabilis 02/21/19 14:50 Urine - Urine - Catheterized Urine Culture - Final NO GROWTH OBTAINED a/p polymicrobial gram negative sepsis-proteus and prevotella suspected secondary to gangrenous legs esrd/hd continue ceftriaxone/flagyl day #12 antibiotics overall prognosis is poor still unable to reach daughter now off pressors Problem List - Problems (1) Gram negative sepsis Code(s): A41.50 - GRAM-NEGATIVE SEPSIS, UNSPECIFIED (2) Gangrene of both feet Code(s): I96 - GANGRENE, NOT ELSEWHERE CLASSIFIED (3) ESRD (end stage renal disease) on dialysis Code(s): N18.6 - END STAGE RENAL DISEASE; Z99.2 - DEPENDENCE ON RENAL DIALYSIS (4) MRSA (methicillin resistant 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 coli carrier Code(s): Z22.39 - CARRIER OF OTHER SPECIFIED BACTERIAL DISEASES (6) VRE (vancomycin-resistant Enterococci) Code(s): A49.1 - STREPTOCOCCAL INFECTION, UNSPECIFIED SITE; Z16.21 - RESISTANCE TO VANCOMYCIN
[2019-03-06] MEDS: TAMSULOSIN HCL 0.4 MG CAP PO SCH (21:18)
[2019-03-06] MEDS: ATORVASTATIN CA 20 MG TABLET (FP) PO SCH (21:18)
[2019-03-07] MEDS: MORPHINE SULFATE 2 MG/ML VIAL IVPUSH PRN (05:23)
[2019-03-07] MEDS: AMINO ACIDS/PROTEIN HYDROLYS 30 ML LIQUID.PKT PO SCH ×3 (05:23→21:23)
--- NOTE | 2019-03-07 07:13 | PN ---
Physical Exam: SUBJECTIVE: Patient seen and examined in ICU. Lethargic, in apparent pain. Remains hypotensive on pressors in septic shock. Family has been contacted regarding prognosis and need for discussion of GOC. OBJECTIVE: Vital Signs Period Temp Pulse Resp BP Sys/Zamorano Pulse Ox Last 24 Hr 98.1 F-98.9 F 79-100 15-26 92-128/33-74 97-98 GENERAL: lethargic, drowsy, oriented 0-1. thin appearing, decreased muscle mass and fat EARS, NOSE, THROAT: dry mucous membranes. LUNGS: CTAB HEART: irregularly irregular s1s2 normal ABDOMEN: Soft, NTND normoactive bowel sounds, ulcer present on sacrum unstagable with foul discharge, scrotum has ulcer no discharge MUSCULOSKELETAL: Normal range of motion at all joints. No bony deformities or tenderness. No CVA tenderness. UPPER EXTREMITIES: 2+ pulses, warm, well-perfused. LOWER EXTREMITIES: b/l wet gangrene with fouls smelling discharge SKIN: Warm, dry, Neuo: lethargic, responsive to pain. Laboratory Results - last 24 hr 03/06/19 17:35 POC Glucometer 90 Active Medications Generic Name Dose Route Start Last Admin Trade Name Freq PRN Reason Stop Dose Admin Albumin Human 12.5 gm 03/07/19 08:00 Albumin Human 25% IVPB 03/07/19 09:31 Q30M [facility] Albuterol/Ipratropium 1 amp 02/21/19 19:04 Duoneb - NEB Q6H PRN SHORTNESS OF BREATH Allopurinol 100 mg 02/22/19 10:00 03/06/19 09:28 Zyloprim - PO 100 mg DAILY [facility] Administration Amino Acids 30 ml 02/21/19 22:00 03/07/19 05:23 Prosource No Carb Liquid Pkt PO 30 ml TID [facility] Administration Apixaban 2.5 mg 02/21/19 22:00 03/06/19 21:18 Eliquis - PO 2.5 mg BID [facility] Administration Atorvastatin Calcium 20 mg 02/21/19 22:00 03/06/19 21:18 Lipitor - PO 20 mg HS [facility] Administration Collagenase 1 applic 02/22/19 10:00 03/06/19 12:15 Santyl - TP 1 applic DAILY [facility] Administration Protocol Epoetin Jose 10,000 unit 03/07/19 08:00 Procrit - IVPUSH 03/07/19 08:01 ONCE ONE Escitalopram Oxalate 10 mg 02/22/19 10:00 03/06/19 09:28 Lexapro - PO 10 mg DAILY [facility] Administration Norepinephrine Bitartrate 8, 500 mls @ 18.75 mls/hr 02/23/19 12:45 03/06/19 18:35 000 mcg/ Dextrose IV 3 mcg/min TITR [facility]AN[facility] 11.25 mls/hr Titration Protocol 5 MCG/MIN Ceftriaxone Sodium 2 gm/ 100 mls @ 200 mls/hr 02/25/19 10:00 03/06/19 09:26 Dextrose IVPB 200 mls/hr DAILY [facility] Administration Protocol Metronidazole 500 mg in 100 mls @ 100 mls/hr 03/04/19 10:00 03/07/19 01:03 Flagyl 500mg Premixed Ivpb - IVPB 100 mls/hr Q8H-IV [facility] Administration Sodium Chloride 250 mls @ 3,000 mls/hr 03/07/19 08:00 Normal Saline - IV 03/07/19 08:01 PRN PRN Hypotension during Dialysis Insulin Aspart 1 vial 02/26/19 10:00 03/06/19 17:46 Novolog Vial Sliding Scale - SQ Not Given BIDAC [facility]TELL Protocol Lactobacillus Acidophilus 1 tab 02/22/19 10:00 03/06/19 09:28 Bacid - PO 1 tab DAILY [facility] Administration Midodrine 10 mg 03/02/19 14:00 03/06/19 17:15 Proamatine - PO 10 mg TID-MID [facility] Administration Morphine Sulfate 2 mg 02/28/19 22:48 03/07/19 05:23 Morphine Sulfate IVPUSH 2 mg Q4H PRN Administration PAIN LEVEL 6-10 Multivitamins/Minerals/Vitamin C 1 tab 02/22/19 10:00 03/06/19 09:28 Tab-A-Vit - PO 1 tab DAILY [facility] Administration Pantoprazole Sodium 40 mg 03/05/19 12:00 03/06/19 09:28 Protonix Iv IVPUSH 40 mg DAILY [facility] Administration Tamsulosin HCl 0.4 mg 02/21/19 22:00 03/06/19 21:18 Flomax - PO 0.4 mg HS [facility] Administration ASSESSMENT/PLAN: 73 yo M PMH dementia, CVA, DM, COPD, ESRD, gout, HTN, HLP, recent admission 01/31- 02/19 during which he was treated for sepsis due to infected b/l feet ulcers/ gangrene. He was sent form NH due to poor po intake, and worsening of ulcers. Now in septic shock 2/2 DM gangrenous B/L feet infx, Infected sacral decub and scrotal ulcer, and GN bacteremia , requiring ICU and pressors #septic shock 2/2 DM gangrenous B/L feet infx, Infected sacral decub and scrotal ulcer, and GN bacteremia (proteus, prevotella) - requiring ICU and pressors, +Leukocytosis -old cx with E coli, ESBL, MRSA, and VRE. -contact isolation for MDRO -s/p Vanc and Zosyn in the ED, Gentamicin x1, Meropenem x2 in ICU -Bcx 02/21/19 growing GN cher - proteus and prevotella -ucx neg -wound cx E coli, morganella -Bcx 02/23/19 neg -ID consulted, Rangel -lactic acid resolved -palliative care consulted -c/w ceftriaxone 2g/flagyl day #13 antibiotics, per ID recs -Aspiration precautions. -Levophed gtt 3, Titrate pressors to keep MAP>65 -vascular surgery consulted, Dr harry, for wound care. amputation indicated, but family not amenable. cont GOC -per ID no vanc, cx show no MRSA for >48hr #ESRD on HD (MWF) -nephro consulted (Dr. Henriquez) -HD as per nephro ned held by nephro for low phos. #Acute on chronic anemia likely 2/2 ESRD -monitor H/H #Severe protein calorie malnutrition -albumin 1.1, prealbumin 3.5 -thin appearing, decreased muscle mass and fat -decreased overall PO intake -Encourage Magic cup, Ensure pudding for increased density of nutritional intake #COPD -keep SpO2>90% -Duonebs q6h PRN #Dm ISS BGM ACHS #H/o hypotension : c/w home midodrine monitor vitals # h/o afib c/w elequis 2.5 bid #FEN -Not on any standing fluids -replete prn -NGT on tube feeds #Prophylaxis -Eliquis 2.5mg BID -Protonix IV while on AC and pressors -bacid #Disposition -full code -GOC/ethics consult placed, as we have attempted multiple times to contact daughter who has not been responsive and in the past has not been amenable to to allow for source control/amputation and standard of care. given patients inability to make decisions for himself and daughter unwillingness pt will likely cont to suffer w/o improvement and has spoor prognosis. yesterday multiple times various members of primary team and ICU team tried contacting daughter and brother for GOC/ethics meeting. Resident Dr Milton was able to make contact but no meaningful discussion was able to take place, please see Dr Milton note for further detail. still no response from brother. will cont to call today -ICU monitoring Visit type - Emergency Visit Emergency Visit: Yes ED Registration Date: 02/21/19 Care time: The patient presented to the Emergency Department on the above date and was hospitalized for further evaluation of their emergent condition. - New Patient This patient is new to me today: Yes Date on this admission: 03/07/19 - Critical Care Critical Care patient: Yes Total Critical Care Time (in minutes): 38 Critical Care Statement: The care of this patient involved high complexity decision making to prevent further life threatening deterioration of the patient 's condition and/or to evaluate & treat vital organ system(s) failure or risk of failure.
[2019-03-07 07:46] LABS: ALBUMIN 1.6 g/dl (3.4-5.0); ALK PHOS 142 U/L (45-117); ANION GAP 6 MMOL/L (8-16); BILIRUBIN,TOTAL 0.3 mg/dL (0.2-1); BLOOD UREA NITROGEN 21.7 mg/dL (7-18); CALCIUM 7.5 mg/dL (8.5-10.1); CHLORIDE 102 mmol/L (98-107); CO2 30 mmol/L (21-32); CREATININE 2.1 mg/dL (0.55-1.3); GLUCOSE,RANDOM 119 mg/dL (74-106); POTASSIUM 3.4 mmol/L (3.5-5.1); SGOT/AST 8 U/L (15-37); SGPT/ALT < 6 U/L (13-61); SODIUM 137 mmol/L (136-145)
[2019-03-07] MEDS: INSULIN SLIDING SCALE (NOVOLOG) 1 VIAL SQ SCH ×2 (07:53→19:36)
[2019-03-07] MEDS ORDERED: SODIUM CHLORIDE 250 ML IV PRN (08:00)
[2019-03-07] MEDS ORDERED: EPOETIN ALFA 10,000 UNIT/1 ML VIAL IVPUSH ONE (08:00)
[2019-03-07] MEDS: ALBUMIN HUMAN 25% 12.5 GM/50 ML VIAL IVPB SCH ×3 (08:00→09:08)
[2019-03-07 09:13] LABS: HEMATOCRIT 27.3 % (35.4-49); HEMOGLOBIN 8.6 GM/dL (11.7-16.9); MCH 28.8 pg (25.7-33.7); MCHC 31.4 g/dl (32.0-35.9); MEAN CELL VOLUME 91.9 fl (80-96); MEAN PLT VOLUME 8.5 fl (7.5-11.1); RBC 2.97 M/mm3 (4.00-5.60)
[2019-03-07] MEDS ORDERED: DEXTROSE 5%-WATER 100 ML IVPB ONE (09:23)
[2019-03-07 09:24] LABS: BLOOD UREA NITROGEN 22.5 mg/dL (7-18); CALCIUM 7.4 mg/dL (8.5-10.1); CREATININE 2.1 mg/dL (0.55-1.3); MAGNESIUM 2.3 mg/dL (1.8-2.4); PHOSPHOROUS 1.6 mg/dL (2.5-4.9); POTASSIUM 3.6 mmol/L (3.5-5.1)
[2019-03-07 09:39] LABS: PLATELET COUNT 281 K/MM3 (134-434)
[2019-03-07] MEDS: MULTIVITAMINS (DAILY MVI) TABLET (FP) PO SCH (09:46)
[2019-03-07] MEDS: LACTOBACILLUS ACIDOPHILUS 1 TABLET PO SCH (09:46)
[2019-03-07] MEDS: ESCITALOPRAM OXALATE 10 MG TABLET (FP) PO SCH (09:46)
[2019-03-07] MEDS: APIXABAN 2.5 MG TABLET PO SCH ×2 (09:46→21:22)
[2019-03-07] MEDS: MIDODRINE HCL 5 MG TABLET PO SCH ×3 (09:46→18:56)
[2019-03-07] MEDS: ALLOPURINOL 100 MG TABLET (FP) PO SCH (09:46)
[2019-03-07] MEDS: PANTOPRAZOLE SODIUM 40 MG VIAL IVPUSH SCH (09:47)
[2019-03-07] MEDS: CEFTRIAXONE 2 GM in DEXTROSE 5%-WATER 100 ML IVPB SCH (09:48)
[2019-03-07] MEDS ORDERED: MORPHINE SULFATE 2 MG/ML VIAL IVPUSH ONE ×2 (10:57→13:00)
[2019-03-07] MEDS ORDERED: MIDAZOLAM HCL 2 MG/2 ML SINGLE DOSE VIAL IVPUSH ONE (11:13)
--- NOTE | 2019-03-07 12:46 | PN ---
Teaching Attending Note Name of Resident: Gualberto Eagle ATTENDING PHYSICIAN STATEMENT I saw and evaluated the patient. I reviewed the resident's note and discussed the case with the resident. I agree with the resident's findings and plan as documented. SUBJECTIVE: Pt seen and examined in the ICU. Remains on low dose levophed gtt. Lethargic but arousable. OBJECTIVE: Vital Signs Period Temp Pulse Resp BP Sys/Zamorano Pulse Ox Last 24 Hr 98.1 F-98.7 F 79-110 15-25 92-128/38-96 97-98 Intake & Output 03/04/19 03/05/19 03/06/19 03/07/19 23:59 23:59 23:59 23:59 Intake Total 585.3 1360 2153 357 Balance 585.3 1360 2153 357 Weight 65.635 kg 67.495 kg 64.909 kg 67.903 kg Gen: lethargic but arousable Heart: RRR Lung: decreased breath sound at the bases Abd: soft, nontender Ext: wrapped, malodorous CBC, BMP 03/07/19 07:00 03/07/19 07:00 Active Medications Albuterol/Ipratropium (Duoneb -) 1 amp NEB Q6H PRN PRN Reason: SHORTNESS OF BREATH Allopurinol (Zyloprim -) 100 mg PO DAILY [facility] Last Admin: 03/07/19 09:46 Dose: 100 mg Amino Acids (Prosource No Carb Liquid Pkt) 30 ml PO TID [facility] Last Admin: 03/07/19 05:23 Dose: 30 ml Apixaban (Eliquis -) 2.5 mg PO BID [facility] Last Admin: 03/07/19 09:46 Dose: 2.5 mg Atorvastatin Calcium (Lipitor -) 20 mg PO HS [facility] Last Admin: 03/06/19 21:18 Dose: 20 mg Collagenase (Santyl -) 1 applic TP DAILY [facility]; Protocol Last Admin: 03/06/19 12:15 Dose: 1 applic Escitalopram Oxalate (Lexapro -) 10 mg PO DAILY [facility] Last Admin: 03/07/19 09:46 Dose: 10 mg Norepinephrine Bitartrate 8, (000 mcg/ Dextrose) 500 mls @ 18.75 mls/hr IV TITR [facility]; Protocol Last Titration: 03/06/19 18:35 Dose: 3 mcg/min, 11.25 mls/hr Ceftriaxone Sodium 2 gm/ (Dextrose) 100 mls @ 200 mls/hr IVPB DAILY [facility]; Protocol Last Admin: 03/07/19 09:48 Dose: 200 mls/hr Metronidazole (Flagyl 500mg Premixed Ivpb -) 500 mg in 100 mls @ 100 mls/hr IVPB Q8H-IV [facility] Last Admin: 03/07/19 01:03 Dose: 100 mls/hr Insulin Aspart (Novolog Vial Sliding Scale -) 1 vial SQ BIDAC [facility]; Protocol Last Admin: 03/07/19 07:53 Dose: Not Given Lactobacillus Acidophilus (Bacid -) 1 tab PO DAILY [facility] Last Admin: 03/07/19 09:46 Dose: 1 tab Midodrine (Proamatine -) 10 mg PO TID-MID [facility] Last Admin: 03/07/19 09:46 Dose: 10 mg Morphine Sulfate (Morphine Sulfate) 2 mg IVPUSH Q4H PRN PRN Reason: PAIN LEVEL 6-10 Last Admin: 03/07/19 05:23 Dose: 2 mg Multivitamins/Minerals/Vitamin C (Tab-A-Vit -) 1 tab PO DAILY [facility] Last Admin: 03/07/19 09:46 Dose: 1 tab Pantoprazole Sodium (Protonix Iv) 40 mg IVPUSH DAILY [facility] Last Admin: 03/07/19 09:47 Dose: 40 mg Tamsulosin HCl (Flomax -) 0.4 mg PO HS [facility] Last Admin: 03/06/19 21:18 Dose: 0.4 mg ASSESSMENT AND PLAN: Bilateral Feet Gangrene Infected Decubitus Ulcers Gram Negative Bacteremia Septic Shock ESRD on HD DM HTN Hyperlipidemia h/o CVA - continue antibiotics per ID - continue midodrine - taper off pressors to maintain MAP >65 - monitor H/H - wound care - HD per renal - aspiration precautions - continue attempts to contact family regarding goals of care, advanced directives - DVT prophylaxis - can monitor on floor if remains off pressors critical care time spent in reviewing chart, evaluating patient and formulating plan 35 min
--- NOTE | 2019-03-07 13:38 | PN ---
Teaching Attending Note Name of Resident: Mathew Adorno ATTENDING PHYSICIAN STATEMENT I saw and evaluated the patient. I reviewed the resident's note and discussed the case with the resident. I agree with the resident's findings and plan as documented. SUBJECTIVE: No events over night OBJECTIVE: NAD, moaning CV: RRR, no MRG Lungs: clear anteriorly. Abd: unable to examine as patient resists sacral area and leg wounds wee not examined today ASSESSMENT AND PLAN: 73 y/o man with h/o dementia, CVA, DM, COPD, ESRD, gout, HTN, HLP, recent admission 01/31-02/19 during which he was treated for sepsis due to infected b/l feet ulcers/gangrene. He was sent form NH due to poor po intake, and non healing wounds 1- Gangrene of b/l feet. infection in diabetic feet. 2- Septic shock. 3- Infected sacral decub and scrotal ulcer 4- Proteus bacteremia ,polymicrobial wound 5- ESRD 6- DM 7- hypophosphatemia 8- anemia plan : - Abx: cont ceftiraxone and flagyl - cont levophed - HD per schedule - monitor and replete electrolytes as needed. - SSI Poor prognosis Critical Care Total Critical Care Time (in minutes): 30 Critical Care Statement: The care of this patient involved high complexity decision making to prevent further life threatening deterioration of the patient 's condition and/or to evaluate & treat vital organ system(s) failure or risk of failure.
--- NOTE | 2019-03-07 14:14 | PN ---
Physical Exam: SUBJECTIVE: Patient seen and examined at bedside Pt remained on 3 mcq Levo overnight to maintain MAP above 65. During HD, required albumin. Continues to be lethargic but alert and follows basic commands OBJECTIVE: Vital Signs Period Temp Pulse Resp BP Sys/Zamorano Pulse Ox Last 24 Hr 98.1 F-98.7 F 79-110 15-25 94-128/39-96 97-98 GENERAL: The patient is awake, alert, baseline dementia, in no acute distress. HEAD: Normal with no signs of trauma. EYES: PERRL, extraocular movements intact, sclera anicteric, conjunctiva clear. No ptosis. ENT: Ears normal, nares patent, oropharynx clear without exudates, moist mucous membranes. NECK: Trachea midline, full range of motion, supple. LUNGS: Breath sounds equal, clear to auscultation bilaterally, no wheezes, no crackles, no accessory muscle use. HEART: Regular rate and rhythm, S1, S2 without murmur, rub or gallop. ABDOMEN: Soft, nontender, nondistended, normoactive bowel sounds, no guarding, no rebound, no hepatosplenomegaly, no masses. EXTREMITIES: bilateral gangrene lower ext down to the tendon on the left with unstageble sacral ulcer NEUROLOGICAL: Cranial nerves II through XII grossly intact. Follows basic commands PSYCH: Normal mood, normal affect. SKIN: bilateral gangrene lower ext down to the tendon on the left with purulent foul smelling discharge. Unstageble sacral ulcer with Laboratory Results - last 24 hr 03/02/19 03/06/19 03/07/19 10:15 17:35 05:35 WBC RBC Hgb Hct MCV MCH MCHC RDW Plt Count MPV Sodium 137 Potassium 3.4 L Chloride 102 Carbon Dioxide 30 Anion Gap 6 L BUN 21.7 H Creatinine 2.1 H Est GFR (CKD-EPI)AfAm 34.89 Est GFR (CKD-EPI)NonAf 30.10 POC Glucometer 90 Random Glucose 119 H Calcium 7.5 L Phosphorus Cancelled Magnesium Cancelled Total Bilirubin 0.3 AST 8 L ALT < 6 L Alkaline Phosphatase 142 H Total Protein 5.0 L Albumin 1.6 L Blood Type A POSITIVE Antibody Screen Negative Crossmatch See Detail 03/07/19 03/07/19 03/07/19 07:00 07:00 08:30 WBC 12.0 H RBC 2.97 L Hgb 8.6 L Hct 27.3 L MCV 91.9 MCH 28.8 MCHC 31.4 L RDW 19.0 H Plt Count 281 MPV 8.5 Sodium 137 Potassium 3.6 Chloride 101 Carbon Dioxide 28 Anion Gap 8 BUN 22.5 H Creatinine 2.1 H Est GFR (CKD-EPI)AfAm 34.89 Est GFR (CKD-EPI)NonAf 30.10 POC Glucometer Random Glucose 109 H Calcium 7.4 L Phosphorus 1.6 L Magnesium 2.3 Total Bilirubin AST ALT Alkaline Phosphatase Total Protein Albumin Blood Type A POSITIVE Antibody Screen Negative Crossmatch Active Medications Generic Name Dose Route Start Last Admin Trade Name Freq PRN Reason Stop Dose Admin Albuterol/Ipratropium 1 amp 02/21/19 19:04 Duoneb - NEB Q6H PRN SHORTNESS OF BREATH Allopurinol 100 mg 02/22/19 10:00 03/07/19 09:46 Zyloprim - PO 100 mg DAILY CHANTELL Administration Amino Acids 30 ml 02/21/19 22:00 03/07/19 05:23 Prosource No Carb Liquid Pkt PO 30 ml TID [facility] Administration Apixaban 2.5 mg 02/21/19 22:00 03/07/19 09:46 Eliquis - PO 2.5 mg BID CHANTELL Administration Atorvastatin Calcium 20 mg 02/21/19 22:00 03/06/19 21:18 Lipitor - PO 20 mg HS CHANTELL Administration Collagenase 1 applic 02/22/19 10:00 03/06/19 12:15 Santyl - TP 1 applic DAILY CHANTELL Administration Protocol Escitalopram Oxalate 10 mg 02/22/19 10:00 03/07/19 09:46 Lexapro - PO 10 mg DAILY CHANTELL Administration Norepinephrine Bitartrate 8, 500 mls @ 18.75 mls/hr 02/23/19 12:45 03/06/19 18:35 000 mcg/ Dextrose IV 3 mcg/min TITR CHANTELL 11.25 mls/hr Titration Protocol 5 MCG/MIN Ceftriaxone Sodium 2 gm/ 100 mls @ 200 mls/hr 02/25/19 10:00 03/07/19 09:48 Dextrose IVPB 200 mls/hr DAILY [facility]ANTELL Administration Protocol Metronidazole 500 mg in 100 mls @ 100 mls/hr 03/04/19 10:00 03/07/19 01:03 Flagyl 500mg Premixed Ivpb - IVPB 100 mls/hr Q8H-IV [facility]ANTELL Administration Insulin Aspart 1 vial 02/26/19 10:00 03/07/19 07:53 Novolog Vial Sliding Scale - SQ Not Given BIDAC CHANTELL Protocol Lactobacillus Acidophilus 1 tab 02/22/19 10:00 03/07/19 09:46 Bacid - PO 1 tab DAILY [facility] Administration Midodrine 10 mg 03/02/19 14:00 03/07/19 09:46 Proamatine - PO 10 mg TID-MID [facility]TELL Administration Morphine Sulfate 2 mg 02/28/19 22:48 03/07/19 05:23 Morphine Sulfate IVPUSH 2 mg Q4H PRN Administration PAIN LEVEL 6-10 Multivitamins/Minerals/Vitamin C 1 tab 02/22/19 10:00 03/07/19 09:46 Tab-A-Vit - PO 1 tab DAILY [facility]TELL Administration Pantoprazole Sodium 40 mg 03/05/19 12:00 03/07/19 09:47 Protonix Iv IVPUSH 40 mg DAILY [facility] Administration Tamsulosin HCl 0.4 mg 02/21/19 22:00 03/06/19 21:18 Flomax - PO 0.4 mg HS CHANTELL Administration ASSESSMENT/PLAN: Left IJ Central line placed 02/22 Left Subclavian placed today (Consent done by phone with pts BrotherKoffi since Next of kin not available/no answer), pending x ray for confirmation. Will remove left IJ when new line is confirmed Pts brother, Koffi Silva contacted, states he will be in the hospital Monday around 11 am and will be available for ethics/meeting Daughter Molly continues to be unreachable HD done today, required albumin #septic shock 2/2 DM gangrenous B/L feet infx, Infected sacral decub and scrotal ulcer, and GN bacteremia (proteus, prevotella) - requiring ICU and pressors, +L IJ. +Leukocytosis -old cx with E coli, ESBL, MRSA, and VRE. -contact isolation for MDRO -s/p Vanc and Zosyn in the ED, Gentamicin x1, Meropenem x2 in ICU -c/w ceftriaxone 2g/flagyl d4, per ID recs -Bcx 02/21/19 growing GN cher - proteus and prevotella -ucx neg -Dysphagia puree diet ordered, stop if pt vomits/aspirates -wound cx E coli, morganella -Bcx 02/23/19 neg -ID consulted -lactic acid resolved -palliative care consulted -Aspiration precautions. -Levophed gtt 2, Titrate pressors to keep MAP>65. Continue to wean -vascular surgery consulted, Dr harry, for wound care. amputation indicated, but family not amenable. cont GOC #ESRD on HD (MWF) -nephro consulted (Dr. Henriquez) -HD tmr as per Nephvito marino held by nephro for low phos. #Acute on chronic anemia likely 2/2 ESRD -monitor H/H #Severe protein calorie malnutrition -albumin 1.1, prealbumin 3.5 -thin appearing, decreased muscle mass and fat -decreased overall PO intake -Encourage Magic cup, Ensure pudding for increased density of nutritional intake #COPD -keep SpO2>90% -Duonebs q6h PRN #Dm ISS BGM ACHS #H/o hypotension : c/w home midodrine monitor vitals # h/o afib c/w elequis 2.5 bid #FEN -Not on any standing fluids -replete prn -tolerating puree diet, per speech eval #Prophylaxis -Eliquis 2.5mg BID #Disposition -full code. Visit type - Emergency Visit Emergency Visit: No - New Patient This patient is new to me today: No - Critical Care Critical Care patient: Yes Total Critical Care Time (in minutes): 42 Critical Care Statement: The care of this patient involved high complexity decision making to prevent further life threatening deterioration of the patient 's condition and/or to evaluate & treat vital organ system(s) failure or risk of failure.
--- NOTE | 2019-03-07 14:23 | PN ---
Progress Note, Physician History of Present Illness: Pt seen and examined at bedside. He tolerated HD today. - Current Medication List Current Medications: Active Medications Albuterol/Ipratropium (Duoneb -) 1 amp NEB Q6H PRN PRN Reason: SHORTNESS OF BREATH Allopurinol (Zyloprim -) 100 mg PO DAILY [facility] Last Admin: 03/07/19 09:46 Dose: 100 mg Amino Acids (Prosource No Carb Liquid Pkt) 30 ml PO TID [facility] Last Admin: 03/07/19 05:23 Dose: 30 ml Apixaban (Eliquis -) 2.5 mg PO BID [facility] Last Admin: 03/07/19 09:46 Dose: 2.5 mg Atorvastatin Calcium (Lipitor -) 20 mg PO HS [facility] Last Admin: 03/06/19 21:18 Dose: 20 mg Collagenase (Santyl -) 1 applic TP DAILY [facility]; Protocol Last Admin: 03/06/19 12:15 Dose: 1 applic Escitalopram Oxalate (Lexapro -) 10 mg PO DAILY [facility] Last Admin: 03/07/19 09:46 Dose: 10 mg Norepinephrine Bitartrate 8, (000 mcg/ Dextrose) 500 mls @ 18.75 mls/hr IV TITR [facility]; Protocol Last Titration: 03/06/19 18:35 Dose: 3 mcg/min, 11.25 mls/hr Ceftriaxone Sodium 2 gm/ (Dextrose) 100 mls @ 200 mls/hr IVPB DAILY [facility]; Protocol Last Admin: 03/07/19 09:48 Dose: 200 mls/hr Metronidazole (Flagyl 500mg Premixed Ivpb -) 500 mg in 100 mls @ 100 mls/hr IVPB Q8H-IV [facility] Last Admin: 03/07/19 01:03 Dose: 100 mls/hr Insulin Aspart (Novolog Vial Sliding Scale -) 1 vial SQ BIDAC [facility]; Protocol Last Admin: 03/07/19 07:53 Dose: Not Given Lactobacillus Acidophilus (Bacid -) 1 tab PO DAILY [facility] Last Admin: 03/07/19 09:46 Dose: 1 tab Midodrine (Proamatine -) 10 mg PO TID-MID [facility] Last Admin: 03/07/19 09:46 Dose: 10 mg Morphine Sulfate (Morphine Sulfate) 2 mg IVPUSH Q4H PRN PRN Reason: PAIN LEVEL 6-10 Last Admin: 03/07/19 05:23 Dose: 2 mg Multivitamins/Minerals/Vitamin C (Tab-A-Vit -) 1 tab PO DAILY [facility] Last Admin: 03/07/19 09:46 Dose: 1 tab Pantoprazole Sodium (Protonix Iv) 40 mg IVPUSH DAILY [facility] Last Admin: 03/07/19 09:47 Dose: 40 mg Tamsulosin HCl (Flomax -) 0.4 mg PO HS [facility] Last Admin: 03/06/19 21:18 Dose: 0.4 mg - Objective Vital Signs: Vital Signs Temperature 97.4 F L 03/07/19 14:00 Pulse Rate 104 H 03/07/19 14:00 Respiratory Rate 03/07/19 14:00 Blood Pressure 108/61 03/07/19 14:00 O2 Sat by Pulse Oximetry (%) 98 03/07/19 08:34 Constitutional: Yes: Calm Eyes: Yes: Conjunctiva Clear HENT: Yes: Atraumatic Neck: Yes: Supple Cardiovascular: Yes: S1, S2 Respiratory: Yes: On Nasal O2 Gastrointestinal: Yes: Soft Genitourinary: Yes: Incontinence Musculoskeletal: Yes: Muscle Weakness Edema: No Integumentary: Yes: Other (dressings in place, odor from wounds) Neurological: Yes: Lethargy Labs: CBC, BMP 03/07/19 07:00 03/07/19 07:00 INR, PTT INR 1.44 (0.83-1.09) H 02/22/19 05:40 Assessment/Plan Current Medications Generic Name Dose Route Start Last Admin Trade Name Freq PRN Reason Stop Dose Admin Albuterol/Ipratropium 1 amp 02/21/19 19:04 Duoneb - NEB Q6H PRN SHORTNESS OF BREATH Allopurinol 100 mg 02/22/19 10:00 03/07/19 09:46 Zyloprim - PO 100 mg DAILY [facility] Administration Amino Acids 30 ml 02/21/19 22:00 03/07/19 05:23 Prosource No Carb Liquid Pkt PO 30 ml TID [facility] Administration Apixaban 2.5 mg 02/21/19 22:00 03/07/19 09:46 Eliquis - PO 2.5 mg BID [facility] Administration Atorvastatin Calcium 20 mg 02/21/19 22:00 03/06/19 21:18 Lipitor - PO 20 mg HS [facility] Administration Collagenase 1 applic 02/22/19 10:00 03/06/19 12:15 Santyl - TP 1 applic DAILY [facility] Administration Protocol Escitalopram Oxalate 10 mg 02/22/19 10:00 03/07/19 09:46 Lexapro - PO 10 mg DAILY [facility] Administration Norepinephrine Bitartrate 8, 500 mls @ 18.75 mls/hr 02/23/19 12:45 03/06/19 18:35 000 mcg/ Dextrose IV 3 mcg/min TITR [facility] 11.25 mls/hr Titration Protocol 5 MCG/MIN Ceftriaxone Sodium 2 gm/ 100 mls @ 200 mls/hr 02/25/19 10:00 03/07/19 09:48 Dextrose IVPB 200 mls/hr DAILY [facility] Administration Protocol Metronidazole 500 mg in 100 mls @ 100 mls/hr 03/04/19 10:00 03/07/19 01:03 Flagyl 500mg Premixed Ivpb - IVPB 100 mls/hr Q8H-IV [facility] Administration Insulin Aspart 1 vial 02/26/19 10:00 03/07/19 07:53 Novolog Vial Sliding Scale - SQ Not Given BIDAC [facility] Protocol Lactobacillus Acidophilus 1 tab 02/22/19 10:00 03/07/19 09:46 Bacid - PO 1 tab DAILY [facility] Administration Midodrine 10 mg 03/02/19 14:00 03/07/19 09:46 Proamatine - PO 10 mg TID-MID [facility] Administration Morphine Sulfate 2 mg 02/28/19 22:48 03/07/19 05:23 Morphine Sulfate IVPUSH 2 mg Q4H PRN Administration PAIN LEVEL 6-10 Multivitamins/Minerals/Vitamin C 1 tab 02/22/19 10:00 03/07/19 09:46 Tab-A-Vit - PO 1 tab DAILY [facility] Administration Pantoprazole Sodium 40 mg 03/05/19 12:00 03/07/19 09:47 Protonix Iv IVPUSH 40 mg DAILY [facility] Administration Tamsulosin HCl 0.4 mg 02/21/19 22:00 03/06/19 21:18 Flomax - PO 0.4 mg HS [facility] Administration Impression 1. ESRD 2. gangrene 3. DM 4. hyperlipidemia 5. HTN 6. gout 7. proteinuria 8. hypotension 9. sepsis Plan - HD today - pt did require albumin during HD - abx per ID - wound care - prognosis is poor - renal diet - family refusing debridement
[2019-03-07] MEDS: COLLAGENASE CLOSTRIDIUM HIST. 30 GRAMS TUBE TP SCH (18:50)
[2019-03-07] MEDS ORDERED: PT OWN MED DRAWER 7, Y5N ONE (18:54)
[2019-03-07] MEDS: NOREPINEPHRINE BITARTRATE 8,000 MCG in DEXTROSE 5%-WATER - 492 ML IV SCH (18:56)
[2019-03-07] MEDS: ATORVASTATIN CA 20 MG TABLET (FP) PO SCH (21:23)
[2019-03-07] MEDS: TAMSULOSIN HCL 0.4 MG CAP PO SCH (21:23)
[2019-03-08] MEDS: MORPHINE SULFATE 2 MG/ML VIAL IVPUSH PRN ×3 (05:08→15:12)
[2019-03-08] MEDS: AMINO ACIDS/PROTEIN HYDROLYS 30 ML LIQUID.PKT PO SCH ×3 (06:03→21:30)
[2019-03-08 06:05] LABS: BASO % 1.1 % (0-2.0); EOS % 0.6 % (0-4.5); HEMATOCRIT 25.4 % (35.4-49); HEMOGLOBIN 8.1 GM/dL (11.7-16.9); MCH 29.5 pg (25.7-33.7); MEAN CELL VOLUME 92.1 fl (80-96); MEAN PLT VOLUME 8.8 fl (7.5-11.1); MONO % 10.3 % (3.8-10.2); RBC 2.76 M/mm3 (4.00-5.60); RDW 18.9 % (11.9-15.9); WHITE BLOOD COUNT 11.7 K/mm3 (4.0-10.0)
--- NOTE | 2019-03-08 06:24 | PN ---
Physical Exam: SUBJECTIVE: Patient seen and examined in ICU. Lethargic. Remains hypotensive on pressors in septic shock. Family has been contacted regarding prognosis and need for discussion of GOC. OBJECTIVE: Vital Signs Period Temp Pulse Resp BP Sys/Zamorano Pulse Ox Last 24 Hr 97.4 F 89-110 18-27 94-124/50-96 98-98 GENERAL: lethargic, drowsy, oriented 0-1. thin appearing, decreased muscle mass and fat EARS, NOSE, THROAT: dry mucous membranes. LUNGS: CTAB HEART: irregularly irregular s1s2 normal ABDOMEN: Soft, NTND normoactive bowel sounds, ulcer present on sacrum unstagable with foul discharge, scrotum has ulcer no discharge MUSCULOSKELETAL: Normal range of motion at all joints. No bony deformities or tenderness. No CVA tenderness. UPPER EXTREMITIES: 2+ pulses, warm, well-perfused. LOWER EXTREMITIES: b/l wet gangrene with fouls smelling discharge SKIN: Warm, dry, Neuo: lethargic, responsive to pain. Laboratory Results - last 24 hr 03/02/19 03/07/19 03/07/19 10:15 05:35 07:00 WBC RBC Hgb Hct MCV MCH MCHC RDW Plt Count MPV Sodium 137 137 Potassium 3.4 L 3.6 Chloride 102 101 Carbon Dioxide 30 28 Anion Gap 6 L 8 BUN 21.7 H 22.5 H Creatinine 2.1 H 2.1 H Est GFR (CKD-EPI)AfAm 34.89 34.89 Est GFR (CKD-EPI)NonAf 30.10 30.10 POC Glucometer Random Glucose 119 H 109 H Calcium 7.5 L 7.4 L Phosphorus Cancelled 1.6 L Magnesium Cancelled 2.3 Total Bilirubin 0.3 AST 8 L ALT < 6 L Alkaline Phosphatase 142 H Total Protein 5.0 L Albumin 1.6 L Blood Type A POSITIVE Antibody Screen Negative Crossmatch See Detail 03/07/19 03/07/19 03/07/19 07:00 08:30 19:34 WBC 12.0 H RBC 2.97 L Hgb 8.6 L Hct 27.3 L MCV 91.9 MCH 28.8 MCHC 31.4 L RDW 19.0 H Plt Count 281 MPV 8.5 Sodium Potassium Chloride Carbon Dioxide Anion Gap BUN Creatinine Est GFR (CKD-EPI)AfAm Est GFR (CKD-EPI)NonAf POC Glucometer 97 Random Glucose Calcium Phosphorus Magnesium Total Bilirubin AST ALT Alkaline Phosphatase Total Protein Albumin Blood Type A POSITIVE Antibody Screen Negative Crossmatch Active Medications Generic Name Dose Route Start Last Admin Trade Name Kassandra PRN Reason Stop Dose Admin Allopurinol 100 mg 02/22/19 10:00 03/07/19 09:46 Zyloprim - PO 100 mg DAILY CHANTELL Administration Amino Acids 30 ml 02/21/19 22:00 03/08/19 06:03 Prosource No Carb Liquid Pkt PO 30 ml TID CHANTELL Administration Apixaban 2.5 mg 02/21/19 22:00 03/07/19 21:22 Eliquis - PO 2.5 mg BID CHANTELL Administration Atorvastatin Calcium 20 mg 02/21/19 22:00 03/07/19 21:23 Lipitor - PO 20 mg HS CHANTELL Administration Collagenase 1 applic 02/22/19 10:00 03/07/19 18:50 Santyl - TP 1 applic DAILY CHANTELL Administration Protocol Escitalopram Oxalate 10 mg 02/22/19 10:00 03/07/19 09:46 Lexapro - PO 10 mg DAILY CHANTELL Administration Norepinephrine Bitartrate 8, 500 mls @ 18.75 mls/hr 02/23/19 12:45 03/07/19 18:56 000 mcg/ Dextrose IV Not Given TITR CHANTELL Protocol 5 MCG/MIN Ceftriaxone Sodium 2 gm/ 100 mls @ 200 mls/hr 02/25/19 10:00 03/07/19 09:48 Dextrose IVPB 200 mls/hr DAILY CHANTELL Administration Protocol Metronidazole 500 mg in 100 mls @ 100 mls/hr 03/04/19 10:00 03/08/19 01:24 Flagyl 500mg Premixed Ivpb - IVPB 100 mls/hr Q8H-IV CHANTELL Administration Insulin Aspart 1 vial 02/26/19 10:00 03/07/19 19:36 Novolog Vial Sliding Scale - SQ Not Given BIDAC CHANTELL Protocol Lactobacillus Acidophilus 1 tab 02/22/19 10:00 03/07/19 09:46 Bacid - PO 1 tab DAILY CHANTELL Administration Midodrine 10 mg 03/02/19 14:00 03/07/19 18:56 Proamatine - PO 10 mg TID-MID CHANTELL Administration Morphine Sulfate 2 mg 02/28/19 22:48 03/08/19 05:08 Morphine Sulfate IVPUSH 2 mg Q4H PRN Administration PAIN LEVEL 6-10 Multivitamins/Minerals/Vitamin C 1 tab 02/22/19 10:00 03/07/19 09:46 Tab-A-Vit - PO 1 tab DAILY CHANTELL Administration Pantoprazole Sodium 40 mg 03/05/19 12:00 03/07/19 09:47 Protonix Iv IVPUSH 40 mg DAILY CHANTELL Administration Tamsulosin HCl 0.4 mg 02/21/19 22:00 03/07/19 21:23 Flomax - PO 0.4 mg HS CHANTELL Administration ASSESSMENT/PLAN: 73 yo M PMH dementia, CVA, DM, COPD, ESRD, gout, HTN, HLP, recent admission 01/31- 02/19 during which he was treated for sepsis due to infected b/l feet ulcers/ gangrene. He was sent form NH due to poor po intake, and worsening of ulcers. Now in septic shock 2/2 DM gangrenous B/L feet infx, Infected sacral decub and scrotal ulcer, and GN bacteremia , requiring ICU and pressors #septic shock 2/2 DM gangrenous B/L feet infx, Infected sacral decub and scrotal ulcer, and GN bacteremia (proteus, prevotella) - requiring ICU and pressors, +Leukocytosis -old cx with E coli, ESBL, MRSA, and VRE. -contact isolation for MDRO -s/p Vanc and Zosyn in the ED, Gentamicin x1, Meropenem x2 in ICU -Bcx 02/21/19 growing GN cher - proteus and prevotella -ucx neg -wound cx E coli, morganella -Bcx 02/23/19 neg -ID consulted, Rangel -lactic acid resolved -palliative care consulted -c/w ceftriaxone 2g/flagyl day #14 antibiotics, per ID recs -Aspiration precautions. -Levophed gtt 1, Titrate pressors to keep MAP>65 -vascular surgery consulted, Dr harry, for wound care. amputation indicated, but family not amenable. cont GOC -per ID no vanc, cx show no MRSA for >48hr #ESRD on HD (MWF) -nephro consulted (Dr. Henriquez) -HD as per nephro ned held by nephro for low phos. #Acute on chronic anemia likely 2/2 ESRD -monitor H/H #Severe protein calorie malnutrition -albumin 1.1, prealbumin 3.5 -thin appearing, decreased muscle mass and fat -decreased overall PO intake -Encourage Magic cup, Ensure pudding for increased density of nutritional intake #COPD -keep SpO2>90% -Duonebs q6h PRN #Dm ISS BGM ACHS #H/o hypotension : c/w home midodrine monitor vitals # h/o afib c/w elequis 2.5 bid #FEN -Not on any standing fluids -replete prn -NGT on tube feeds #Prophylaxis -Eliquis 2.5mg BID -Protonix IV while on AC and pressors -bacid #Disposition -full code -GOC/ethics consult placed, as we have attempted multiple times to contact daughter who has not been responsive and in the past has not been amenable to to allow for source control/amputation and standard of care. given patients inability to make decisions for himself and daughter unwillingness pt will likely cont to suffer w/o improvement and has spoor prognosis. yesterday multiple times various members of primary team and ICU team tried contacting daughter and brother for GOC/ethics meeting. Resident Dr Milton was able to make contact but no meaningful discussion was able to take place, please see Dr Milton note for further detail. still no response from brother. will cont to call today -ICU monitoring Visit type - Emergency Visit Emergency Visit: Yes ED Registration Date: 02/21/19 Care time: The patient presented to the Emergency Department on the above date and was hospitalized for further evaluation of their emergent condition. - New Patient This patient is new to me today: Yes Date on this admission: 03/08/19 - Critical Care Critical Care patient: Yes Total Critical Care Time (in minutes): 37 Critical Care Statement: The care of this patient involved high complexity decision making to prevent further life threatening deterioration of the patient 's condition and/or to evaluate & treat vital organ system(s) failure or risk of failure.
[2019-03-08 06:42] LABS: ALBUMIN 1.5 g/dl (3.4-5.0); ALK PHOS 185 U/L (45-117); ANION GAP 6 MMOL/L (8-16); BILIRUBIN,TOTAL 0.4 mg/dL (0.2-1); BLOOD UREA NITROGEN 15.3 mg/dL (7-18); CALCIUM 7.8 mg/dL (8.5-10.1); CHLORIDE 102 mmol/L (98-107); CO2 31 mmol/L (21-32); CREATININE 1.6 mg/dL (0.55-1.3); GLUCOSE,RANDOM 138 mg/dL (74-106); PHOSPHOROUS 1.2 mg/dL (2.5-4.9); SGOT/AST 12 U/L (15-37); SGPT/ALT < 6 U/L (13-61); SODIUM 139 mmol/L (136-145)
[2019-03-08] MEDS ORDERED: RAPID SEQUENCE INTUBATION KIT NR ONE (06:58)
[2019-03-08] MEDS: INSULIN SLIDING SCALE (NOVOLOG) 1 VIAL SQ SCH ×2 (07:28→16:35)
[2019-03-08 07:50] LABS: PLATELET COUNT 260 K/MM3 (134-434)
[2019-03-08] MEDS ORDERED: DEXTROSE 5%-WATER 100 ML IVPB ONE (08:30)
[2019-03-08] MEDS: CEFTRIAXONE 2 GM in DEXTROSE 5%-WATER 100 ML IVPB SCH (09:05)
[2019-03-08] MEDS: APIXABAN 2.5 MG TABLET PO SCH ×2 (09:05→21:30)
[2019-03-08] MEDS: LACTOBACILLUS ACIDOPHILUS 1 TABLET PO SCH (09:05)
[2019-03-08] MEDS: COLLAGENASE CLOSTRIDIUM HIST. 30 GRAMS TUBE TP SCH (09:06)
[2019-03-08] MEDS: ESCITALOPRAM OXALATE 10 MG TABLET (FP) PO SCH (09:06)
[2019-03-08] MEDS: PANTOPRAZOLE SODIUM 40 MG VIAL IVPUSH SCH (09:06)
[2019-03-08] MEDS: ALLOPURINOL 100 MG TABLET (FP) PO SCH (09:07)
[2019-03-08] MEDS: MULTIVITAMINS (DAILY MVI) TABLET (FP) PO SCH (09:07)
[2019-03-08] MEDS: MIDODRINE HCL 5 MG TABLET PO SCH ×3 (09:17→17:08)
--- NOTE | 2019-03-08 12:07 | PN ---
Teaching Attending Note Name of Resident: Gualberto Eagle ATTENDING PHYSICIAN STATEMENT I saw and evaluated the patient. I reviewed the resident's note and discussed the case with the resident. I agree with the resident's findings and plan as documented. SUBJECTIVE: Patient seen and examined in the ICU. Remains on low dose levophed gtt. Lethargic but arousable. OBJECTIVE: Intake & Output 03/05/19 03/06/19 03/07/19 03/08/19 23:59 23:59 23:59 23:59 Intake Total 1360 2153 1018 387 Balance 1360 2153 1018 387 Weight 148 lb 12.8 oz 143 lb 1.6 oz 149 lb 11.2 oz 148 lb 1.6 oz Last Vital Signs Temp Pulse Resp BP Pulse Ox 97.8 F 106 H 22 H 107/55 L 98 03/08/19 10:00 03/08/19 11:28 03/08/19 10:00 03/08/19 11:28 03/07/19 21:00 Active Medications Allopurinol (Zyloprim -) 100 mg PO DAILY CHANTELL Last Admin: 03/08/19 09:07 Dose: 100 mg Amino Acids (Prosource No Carb Liquid Pkt) 30 ml PO TID CHANTELL Last Admin: 03/08/19 06:03 Dose: 30 ml Apixaban (Eliquis -) 2.5 mg PO BID CHANTELL Last Admin: 03/08/19 09:05 Dose: 2.5 mg Atorvastatin Calcium (Lipitor -) 20 mg PO HS CHANTELL Last Admin: 03/07/19 21:23 Dose: 20 mg Collagenase (Santyl -) 1 applic TP DAILY CHANTELL; Protocol Last Admin: 03/08/19 09:06 Dose: 1 applic Escitalopram Oxalate (Lexapro -) 10 mg PO DAILY CHANTELL Last Admin: 03/08/19 09:06 Dose: 10 mg Norepinephrine Bitartrate 8, (000 mcg/ Dextrose) 500 mls @ 18.75 mls/hr IV TITR CHANTELL; Protocol Last Titration: 03/08/19 11:28 Dose: 0 mcg/min, 0 mls/hr Ceftriaxone Sodium 2 gm/ (Dextrose) 100 mls @ 200 mls/hr IVPB DAILY CHANTELL; Protocol Last Admin: 03/08/19 09:05 Dose: 200 mls/hr Metronidazole (Flagyl 500mg Premixed Ivpb -) 500 mg in 100 mls @ 100 mls/hr IVPB Q8H-IV CHANTELL Last Admin: 03/08/19 09:05 Dose: 100 mls/hr Insulin Aspart (Novolog Vial Sliding Scale -) 1 vial SQ BIDAC [facility]; Protocol Last Admin: 03/08/19 07:28 Dose: Not Given Lactobacillus Acidophilus (Bacid -) 1 tab PO DAILY [facility] Last Admin: 03/08/19 09:05 Dose: 1 tab Midodrine (Proamatine -) 10 mg PO TID-MID [facility] Last Admin: 03/08/19 09:17 Dose: 10 mg Morphine Sulfate (Morphine Sulfate) 2 mg IVPUSH Q4H PRN PRN Reason: PAIN LEVEL 6-10 Last Admin: 03/08/19 11:32 Dose: 2 mg Multivitamins/Minerals/Vitamin C (Tab-A-Vit -) 1 tab PO DAILY [facility] Last Admin: 03/08/19 09:07 Dose: 1 tab Pantoprazole Sodium (Protonix Iv) 40 mg IVPUSH DAILY [facility] Last Admin: 03/08/19 09:06 Dose: 40 mg Tamsulosin HCl (Flomax -) 0.4 mg PO HS [facility] Last Admin: 03/07/19 21:23 Dose: 0.4 mg Gen: lethargic but arousable Heart: RRR Lung: decreased breath sound at the bases Abd: soft, nontender Ext: wrapped, malodorous Laboratory Results - last 24 hr 03/02/19 03/07/19 03/08/19 10:15 19:34 05:10 WBC 11.7 H RBC 2.76 L Hgb 8.1 L Hct 25.4 L MCV 92.1 MCH 29.5 MCHC 32.0 RDW 18.9 H Plt Count 260 MPV 8.8 Absolute Neuts (auto) 8.5 H Neutrophils % 73.0 Lymphocytes % 15.0 Monocytes % 10.3 H Eosinophils % 0.6 D Basophils % 1.1 Nucleated RBC % 0 Sodium Potassium Chloride Carbon Dioxide Anion Gap BUN Creatinine Est GFR (CKD-EPI)AfAm Est GFR (CKD-EPI)NonAf POC Glucometer 97 Random Glucose Calcium Phosphorus Magnesium Total Bilirubin AST ALT Alkaline Phosphatase Total Protein Albumin Blood Type A POSITIVE Antibody Screen Negative Crossmatch See Detail 03/08/19 05:10 WBC RBC Hgb Hct MCV MCH MCHC RDW Plt Count MPV Absolute Neuts (auto) Neutrophils % Lymphocytes % Monocytes % Eosinophils % Basophils % Nucleated RBC % Sodium 139 Potassium 3.0 L Chloride 102 Carbon Dioxide 31 Anion Gap 6 L BUN 15.3 Creatinine 1.6 H Est GFR (CKD-EPI)AfAm 48.47 Est GFR (CKD-EPI)NonAf 41.82 POC Glucometer Random Glucose 138 H Calcium 7.8 L Phosphorus 1.2 L Magnesium 2.0 Total Bilirubin 0.4 AST 12 L ALT < 6 L Alkaline Phosphatase 185 H Total Protein 5.0 L Albumin 1.5 L Blood Type Antibody Screen Crossmatch ASSESSMENT AND PLAN: Bilateral Feet Gangrene Infected Decubitus Ulcers Gram Negative Bacteremia Septic Shock ESRD on HD DM HTN Hyperlipidemia h/o CVA - continue antibiotics per ID - continue midodrine - taper off pressors to maintain MAP >65 - monitor H/H - wound care - HD per renal - aspiration precautions - continue attempts to contact family regarding goals of care, advanced directives - DVT prophylaxis Dr Palmer Critical care time spent in reviewing chart, evaluating patient and formulating plan 35 min
--- NOTE | 2019-03-08 13:49 | PROC ---
<Fili Miller - Last Filed: 03/08/19 13:51> Procedure Note Procedure: L subclavian catheter inserted and R IJ taken out. Central Line Insertion Indication: Vasopressor Risks and Benefits Explained: Yes (To brother, no proxy available) Consent on Chart: Yes Central Line: Triple Lumen Catheter Anesthesia: 1% Lidocaine Sterile Technique: Yes Ultrasound Guided Assistance: Yes Position: Left Subclavian Post Insertion: Yes: Chest X-Ray Ordered Sterile Dressing Applied: Yes <Rangel Montoya MD - Last Filed: 03/12/19 11:49> Procedure Note Procedure: I supervised and was present during the entire procedure. Rangel Montoya MD
[2019-03-08] MEDS: NOREPINEPHRINE BITARTRATE 8,000 MCG in DEXTROSE 5%-WATER - 492 ML IV SCH (15:19)
[2019-03-08] MEDS ORDERED: POTASSIUM CHLORIDE ORAL LIQUID 20 MEQ/15 ML NGT ONE (15:49)
--- NOTE | 2019-03-08 15:53 | PN ---
Progress Note, Physician History of Present Illness: Pt seen and examined at bedside. He is now on tube feeds. - Current Medication List Current Medications: Active Medications Allopurinol (Zyloprim -) 100 mg PO DAILY CHANTELL Last Admin: 03/08/19 09:07 Dose: 100 mg Amino Acids (Prosource No Carb Liquid Pkt) 30 ml PO TID CHANTELL Last Admin: 03/08/19 13:53 Dose: 30 ml Apixaban (Eliquis -) 2.5 mg PO BID CHANTLEL Last Admin: 03/08/19 09:05 Dose: 2.5 mg Atorvastatin Calcium (Lipitor -) 20 mg PO HS CHANTELL Last Admin: 03/07/19 21:23 Dose: 20 mg Collagenase (Santyl -) 1 applic TP DAILY CHANTELL; Protocol Last Admin: 03/08/19 09:06 Dose: 1 applic Escitalopram Oxalate (Lexapro -) 10 mg PO DAILY CHANTELL Last Admin: 03/08/19 09:06 Dose: 10 mg Norepinephrine Bitartrate 8, (000 mcg/ Dextrose) 500 mls @ 18.75 mls/hr IV TITR CHANTELL; Protocol Last Admin: 03/08/19 15:19 Dose: Not Given Ceftriaxone Sodium 2 gm/ (Dextrose) 100 mls @ 200 mls/hr IVPB DAILY CHANTELL; Protocol Last Admin: 03/08/19 09:05 Dose: 200 mls/hr Metronidazole (Flagyl 500mg Premixed Ivpb -) 500 mg in 100 mls @ 100 mls/hr IVPB Q8H-IV CHANTELL Last Admin: 03/08/19 09:05 Dose: 100 mls/hr Insulin Aspart (Novolog Vial Sliding Scale -) 1 vial SQ BIDAC CHANTELL; Protocol Last Admin: 03/08/19 07:28 Dose: Not Given Lactobacillus Acidophilus (Bacid -) 1 tab PO DAILY CHANTELL Last Admin: 03/08/19 09:05 Dose: 1 tab Midodrine (Proamatine -) 10 mg PO TID-MID CHANTELL Last Admin: 03/08/19 13:53 Dose: 10 mg Morphine Sulfate (Morphine Sulfate) 2 mg IVPUSH Q4H PRN PRN Reason: PAIN LEVEL 6-10 Last Admin: 03/08/19 15:12 Dose: 2 mg Multivitamins/Minerals/Vitamin C (Tab-A-Vit -) 1 tab PO DAILY CHANTELL Last Admin: 03/08/19 09:07 Dose: 1 tab Pantoprazole Sodium (Protonix Iv) 40 mg IVPUSH DAILY CHANTELL Last Admin: 03/08/19 09:06 Dose: 40 mg Tamsulosin HCl (Flomax -) 0.4 mg PO HS CHANTELL Last Admin: 03/07/19 21:23 Dose: 0.4 mg - Objective Vital Signs: Vital Signs Temperature 98 F 03/08/19 13:02 Pulse Rate 102 H 03/08/19 15:00 Respiratory Rate 25 H 03/08/19 15:00 Blood Pressure 91/61 03/08/19 15:00 O2 Sat by Pulse Oximetry (%) 98 03/07/19 21:00 Constitutional: Yes: Calm, Cachectic Eyes: Yes: Conjunctiva Clear HENT: Yes: Atraumatic Neck: Yes: Supple Cardiovascular: Yes: S1, S2 Respiratory: Yes: On Nasal O2 Gastrointestinal: Yes: Soft Genitourinary: Yes: Incontinence Musculoskeletal: Yes: Muscle Weakness Edema: No Neurological: Yes: Lethargy Labs: CBC, BMP 03/08/19 05:10 03/08/19 05:10 INR, PTT INR 1.44 (0.83-1.09) H 02/22/19 05:40 Problem List - Problems (1) ESRD (end stage renal disease) on dialysis Code(s): N18.6 - END STAGE RENAL DISEASE; Z99.2 - DEPENDENCE ON RENAL DIALYSIS Assessment/Plan Current Medications Generic Name Dose Route Start Last Admin Trade Name Kassandra PRN Reason Stop Dose Admin Allopurinol 100 mg 02/22/19 10:00 03/08/19 09:07 Zyloprim - PO 100 mg DAILY CHANTELL Administration Amino Acids 30 ml 02/21/19 22:00 03/08/19 13:53 Prosource No Carb Liquid Pkt PO 30 ml TID CHANTELL Administration Apixaban 2.5 mg 02/21/19 22:00 03/08/19 09:05 Eliquis - PO 2.5 mg BID CHANTELL Administration Atorvastatin Calcium 20 mg 02/21/19 22:00 03/07/19 21:23 Lipitor - PO 20 mg HS CHANTELL Administration Collagenase 1 applic 02/22/19 10:00 03/08/19 09:06 Santyl - TP 1 applic DAILY CHANTELL Administration Protocol Escitalopram Oxalate 10 mg 02/22/19 10:00 03/08/19 09:06 Lexapro - PO 10 mg DAILY CHANTELL Administration Norepinephrine Bitartrate 8, 500 mls @ 18.75 mls/hr 02/23/19 12:45 03/08/19 15:19 000 mcg/ Dextrose IV Not Given TITR CHANTELL Protocol 5 MCG/MIN Ceftriaxone Sodium 2 gm/ 100 mls @ 200 mls/hr 02/25/19 10:00 03/08/19 09:05 Dextrose IVPB 200 mls/hr DAILY CHANTELL Administration Protocol Metronidazole 500 mg in 100 mls @ 100 mls/hr 03/04/19 10:00 03/08/19 09:05 Flagyl 500mg Premixed Ivpb - IVPB 100 mls/hr Q8H-IV CHANTELL Administration Insulin Aspart 1 vial 02/26/19 10:00 03/08/19 07:28 Novolog Vial Sliding Scale - SQ Not Given BIDAC CHANTELL Protocol Lactobacillus Acidophilus 1 tab 02/22/19 10:00 03/08/19 09:05 Bacid - PO 1 tab DAILY CHANTELL Administration Midodrine 10 mg 03/02/19 14:00 03/08/19 13:53 Proamatine - PO 10 mg TID-MID CHANTELL Administration Morphine Sulfate 2 mg 02/28/19 22:48 03/08/19 15:12 Morphine Sulfate IVPUSH 2 mg Q4H PRN Administration PAIN LEVEL 6-10 Multivitamins/Minerals/Vitamin C 1 tab 02/22/19 10:00 03/08/19 09:07 Tab-A-Vit - PO 1 tab DAILY CHANTELL Administration Pantoprazole Sodium 40 mg 03/05/19 12:00 03/08/19 09:06 Protonix Iv IVPUSH 40 mg DAILY CHANTELL Administration Potassium Chloride 40 meq 03/08/19 15:49 Potassium Chloride Oral Liquid NGT 03/08/19 15:50 ONCE ONE Tamsulosin HCl 0.4 mg 02/21/19 22:00 03/07/19 21:23 Flomax - PO 0.4 mg HS CHANTELL Administration Impression 1. ESRD 2. gangrene 3. DM 4. hyperlipidemia 5. HTN 6. gout 7. proteinuria 8. hypotension 9. sepsis Plan - HD tomorrow - nepro for feeds - replace potassium - abx per ID - wound care - prognosis is poor
--- NOTE | 2019-03-08 16:32 | PN ---
Physical Exam: SUBJECTIVE: Patient seen and examined at bedside Continues to require small dose of pressors over night and less during the day. Follows basic commands OBJECTIVE: Vital Signs Period Temp Pulse Resp BP Sys/Zamorano Pulse Ox Last 24 Hr 97.6 F-98 F 86-113 18-28 90-125/53-72 98-98 GENERAL: The patient is awake, alert, baseline dementia, in no acute distress. HEAD: Normal with no signs of trauma. EYES: PERRL, extraocular movements intact, sclera anicteric, conjunctiva clear. No ptosis. ENT: Ears normal, nares patent, oropharynx clear without exudates, moist mucous membranes. NECK: Trachea midline, full range of motion, supple. LUNGS: Breath sounds equal, clear to auscultation bilaterally, no wheezes, no crackles, no accessory muscle use. HEART: Regular rate and rhythm, S1, S2 without murmur, rub or gallop. ABDOMEN: Soft, nontender, nondistended, normoactive bowel sounds, no guarding, no rebound, no hepatosplenomegaly, no masses. EXTREMITIES: bilateral gangrene lower ext down to the tendon on the left with unstageble sacral ulcer NEUROLOGICAL: Cranial nerves II through XII grossly intact. Follows basic commands PSYCH: Normal mood, normal affect. SKIN: bilateral gangrene lower ext down to the tendon on the left with purulent foul smelling discharge. Unstageble sacral ulcer Laboratory Results - last 24 hr 03/07/19 03/08/19 03/08/19 19:34 05:10 05:10 WBC 11.7 H RBC 2.76 L Hgb 8.1 L Hct 25.4 L MCV 92.1 MCH 29.5 MCHC 32.0 RDW 18.9 H Plt Count 260 MPV 8.8 Absolute Neuts (auto) 8.5 H Neutrophils % 73.0 Lymphocytes % 15.0 Monocytes % 10.3 H Eosinophils % 0.6 D Basophils % 1.1 Nucleated RBC % 0 Sodium 139 Potassium 3.0 L Chloride 102 Carbon Dioxide 31 Anion Gap 6 L BUN 15.3 Creatinine 1.6 H Est GFR (CKD-EPI)AfAm 48.47 Est GFR (CKD-EPI)NonAf 41.82 POC Glucometer 97 Random Glucose 138 H Calcium 7.8 L Phosphorus 1.2 L Magnesium 2.0 Total Bilirubin 0.4 AST 12 L ALT < 6 L Alkaline Phosphatase 185 H Total Protein 5.0 L Albumin 1.5 L 03/08/19 15:15 WBC RBC Hgb Hct MCV MCH MCHC RDW Plt Count MPV Absolute Neuts (auto) Neutrophils % Lymphocytes % Monocytes % Eosinophils % Basophils % Nucleated RBC % Sodium Potassium Chloride Carbon Dioxide Anion Gap BUN Creatinine Est GFR (CKD-EPI)AfAm Est GFR (CKD-EPI)NonAf POC Glucometer 110 Random Glucose Calcium Phosphorus Magnesium Total Bilirubin AST ALT Alkaline Phosphatase Total Protein Albumin Active Medications Generic Name Dose Route Start Last Admin Trade Name Freq PRN Reason Stop Dose Admin Albumin Human 12.5 gm 03/09/19 16:00 Albumin Human 25% IVPB Q30M CHANTELL Allopurinol 100 mg 02/22/19 10:00 03/08/19 09:07 Zyloprim - PO 100 mg DAILY CHANTELL Administration Amino Acids 30 ml 02/21/19 22:00 03/08/19 13:53 Prosource No Carb Liquid Pkt PO 30 ml TID CHANTELL Administration Apixaban 2.5 mg 02/21/19 22:00 03/08/19 09:05 Eliquis - PO 2.5 mg BID CHANTELL Administration Atorvastatin Calcium 20 mg 02/21/19 22:00 03/07/19 21:23 Lipitor - PO 20 mg HS CHANTELL Administration Collagenase 1 applic 02/22/19 10:00 03/08/19 09:06 Santyl - TP 1 applic DAILY CHANTELL Administration Protocol Epoetin Jose 10,000 unit 03/09/19 15:53 Epogen - IVPUSH 03/09/19 15:54 ONCE ONE Escitalopram Oxalate 10 mg 02/22/19 10:00 03/08/19 09:06 Lexapro - PO 10 mg DAILY CHANTELL Administration Norepinephrine Bitartrate 8, 500 mls @ 18.75 mls/hr 02/23/19 12:45 03/08/19 15:19 000 mcg/ Dextrose IV Not Given TITR CHANTELL Protocol 5 MCG/MIN Ceftriaxone Sodium 2 gm/ 100 mls @ 200 mls/hr 02/25/19 10:00 03/08/19 09:05 Dextrose IVPB 200 mls/hr DAILY CHANTELL Administration Protocol Metronidazole 500 mg in 100 mls @ 100 mls/hr 03/04/19 10:00 03/08/19 09:05 Flagyl 500mg Premixed Ivpb - IVPB 100 mls/hr Q8H-IV CHANTELL Administration Sodium Chloride 250 mls @ 3,000 mls/hr 03/08/19 15:53 Normal Saline - IV 03/09/19 15:53 PRN PRN Hypotension during Dialysis Insulin Aspart 1 vial 02/26/19 10:00 03/08/19 07:28 Novolog Vial Sliding Scale - SQ Not Given BIDAC CHANTELL Protocol Lactobacillus Acidophilus 1 tab 02/22/19 10:00 03/08/19 09:05 Bacid - PO 1 tab DAILY CHANTELL Administration Midodrine 10 mg 03/02/19 14:00 03/08/19 13:53 Proamatine - PO 10 mg TID-MID CHANTELL Administration Morphine Sulfate 2 mg 02/28/19 22:48 03/08/19 15:12 Morphine Sulfate IVPUSH 2 mg Q4H PRN Administration PAIN LEVEL 6-10 Multivitamins/Minerals/Vitamin C 1 tab 02/22/19 10:00 03/08/19 09:07 Tab-A-Vit - PO 1 tab DAILY CHANTELL Administration Pantoprazole Sodium 40 mg 03/05/19 12:00 03/08/19 09:06 Protonix Iv IVPUSH 40 mg DAILY CHANTELL Administration Tamsulosin HCl 0.4 mg 02/21/19 22:00 03/07/19 21:23 Flomax - PO 0.4 mg HS CHANTELL Administration ASSESSMENT/PLAN: Case discussed with Raya Bartlett including pt brother, Koffi Silva, coming for a family meeting Monday next week. Will make Ethics aware Pt required 3 mcq levo over night, 1 mcq during day today #septic shock 2/2 DM gangrenous B/L feet infx, Infected sacral decub and scrotal ulcer, and GN bacteremia (proteus, prevotella) - requiring ICU and pressors, +L IJ. +Leukocytosis -old cx with E coli, ESBL, MRSA, and VRE. -contact isolation for MDRO -s/p Vanc and Zosyn in the ED, Gentamicin x1, Meropenem x2 in ICU -c/w ceftriaxone 2g/flagyl d4, per ID recs -Bcx 02/21/19 growing GN cher - proteus and prevotella -ucx neg -Dysphagia puree diet ordered, stop if pt vomits/aspirates -wound cx E coli, morganella -Bcx 02/23/19 neg -ID consulted -lactic acid resolved -palliative care consulted -Aspiration precautions. -Levophed gtt 2, Titrate pressors to keep MAP>65. Continue to wean -vascular surgery consulted, Dr harry, for wound care. amputation indicated, but family not amenable. cont GO #ESRD on HD (MWF) -nephro consulted (Dr. Henriquez) -HD tmr as per Nephro ned held by nephro for low phos. #Acute on chronic anemia likely 2/2 ESRD -monitor H/H #Severe protein calorie malnutrition -albumin 1.1, prealbumin 3.5 -thin appearing, decreased muscle mass and fat -decreased overall PO intake -Encourage Magic cup, Ensure pudding for increased density of nutritional intake #COPD -keep SpO2>90% -Duonebs q6h PRN #Dm ISS BGM ACHS #H/o hypotension : c/w home midodrine monitor vitals # h/o afib c/w elequis 2.5 bid #FEN -Not on any standing fluids -replete prn -tolerating puree diet, per speech eval #Prophylaxis -Eliquis 2.5mg BID #Disposition -full code. Visit type - Emergency Visit Emergency Visit: No - New Patient This patient is new to me today: No - Critical Care Critical Care patient: Yes Total Critical Care Time (in minutes): 36 Critical Care Statement: The care of this patient involved high complexity decision making to prevent further life threatening deterioration of the patient 's condition and/or to evaluate & treat vital organ system(s) failure or risk of failure.
[2019-03-08] MEDS ORDERED: PT OWN MED DRAWER 7, Y5N ONE (17:14)
[2019-03-08] MEDS ORDERED: NAPH,MB-DB/K PH,MBDB POWDER PACKET PO ONE (18:48)
--- NOTE | 2019-03-08 18:49 | PN ---
Teaching Attending Note Name of Resident: Gen Hurd ATTENDING PHYSICIAN STATEMENT I saw and evaluated the patient. I reviewed the resident's note and discussed the case with the resident. I agree with the resident's findings and plan as documented. SUBJECTIVE: No events. sen at 9 am OBJECTIVE: NAD, calm , comntracted CV: RRR, no MRG Lungs: clear anteriorly. Abd: soft, NL BS sacral area and leg wounds wee not examined today ASSESSMENT AND PLAN: 73 y/o man with h/o dementia, CVA, DM, COPD, ESRD, gout, HTN, HLP, recent admission 01/31-02/19 during which he was treated for sepsis due to infected b/l feet ulcers/gangrene. He was sent form NH due to poor po intake, and non healing wounds 1- Gangrene of b/l feet. infection in diabetic feet. 2- Septic shock. 3- Infected sacral decub and scrotal ulcer 4- Proteus bacteremia ,polymicrobial wound 5- ESRD 6- DM 7- hypophosphatemia and hypokalemia 8- anemia plan : - Abx: cont ceftiraxone and flagyl - cont levophed ( 1 mcg/min ) - HD per schedule - monitor and replete electrolytes as needed. ( K and Phos today ) - SSI Poor prognosis Critical Care Total Critical Care Time (in minutes): 25
[2019-03-08] MEDS: ATORVASTATIN CA 20 MG TABLET (FP) PO SCH (21:30)
[2019-03-08] MEDS: TAMSULOSIN HCL 0.4 MG CAP PO SCH (21:30)
[2019-03-09] MEDS: MORPHINE SULFATE 2 MG/ML VIAL IVPUSH PRN ×3 (05:07→17:50)
[2019-03-09] MEDS: AMINO ACIDS/PROTEIN HYDROLYS 30 ML LIQUID.PKT PO SCH ×3 (05:07→21:12)
[2019-03-09 06:24] LABS: BASO % 1.3 % (0-2.0); EOS % 0.8 % (0-4.5); HEMATOCRIT 24.8 % (35.4-49); LYMPH % 15.7 % (8-40); MCH 30.2 pg (25.7-33.7); MCHC 32.5 g/dl (32.0-35.9); MEAN CELL VOLUME 92.9 fl (80-96); MONO % 11.1 % (3.8-10.2); NEUT % 71.1 % (42.8-82.8); PLATELET COUNT 243 K/MM3 (134-434); RBC 2.67 M/mm3 (4.00-5.60)
[2019-03-09] MEDS ORDERED: SODIUM CHLORIDE 250 ML IV PRN (07:00)
[2019-03-09 07:34] LABS: ALBUMIN 1.3 g/dl (3.4-5.0); ALK PHOS 258 U/L (45-117); ANION GAP 5 MMOL/L (8-16); BILIRUBIN,TOTAL 0.4 mg/dL (0.2-1); BLOOD UREA NITROGEN 23.2 mg/dL (7-18); CALCIUM 7.4 mg/dL (8.5-10.1); CHLORIDE 102 mmol/L (98-107); CO2 30 mmol/L (21-32); CREATININE 2.2 mg/dL (0.55-1.3); GLUCOSE,RANDOM 114 mg/dL (74-106); MAGNESIUM 1.9 mg/dL (1.8-2.4); PHOSPHOROUS 1.2 mg/dL (2.5-4.9); POTASSIUM 3.6 mmol/L (3.5-5.1); SGOT/AST 14 U/L (15-37); SGPT/ALT < 6 U/L (13-61); SODIUM 138 mmol/L (136-145); TOT PROT 4.8 g/dl (6.4-8.2)
[2019-03-09] MEDS: ALBUMIN HUMAN 25% 12.5 GM/50 ML VIAL IVPB SCH ×3 (07:55→09:53)
[2019-03-09] MEDS: INSULIN SLIDING SCALE (NOVOLOG) 1 VIAL SQ SCH ×2 (07:59→17:00)
[2019-03-09] MEDS ORDERED: EPOETIN ALFA 10,000 UNIT/1 ML VIAL IVPUSH ONE (08:00)
--- NOTE | 2019-03-09 09:47 | PN ---
Progress Note (short form) - Note Progress Note: ESRD dementia, CVA, DM, COPD, gout, HTN, HLP, non healing wounds Gangrene of b/l feet. infection in diabetic feet. Septic shock. Infected sacral decub and scrotal ulcer Proteus bacteremia ,polymicrobial wound 7- hypophosphatemia and hypokalemia 8- anemia Active Medications Allopurinol (Zyloprim -) 100 mg PO DAILY [facility] Last Admin: 03/08/19 09:07 Dose: 100 mg Amino Acids (Prosource No Carb Liquid Pkt) 30 ml PO TID [facility] Last Admin: 03/09/19 05:07 Dose: 30 ml Apixaban (Eliquis -) 2.5 mg PO BID [facility] Last Admin: 03/08/19 21:30 Dose: 2.5 mg Atorvastatin Calcium (Lipitor -) 20 mg PO HS [facility] Last Admin: 03/08/19 21:30 Dose: 20 mg Collagenase (Santyl -) 1 applic TP DAILY [facility]; Protocol Last Admin: 03/08/19 09:06 Dose: 1 applic Escitalopram Oxalate (Lexapro -) 10 mg PO DAILY [facility] Last Admin: 03/08/19 09:06 Dose: 10 mg Ceftriaxone Sodium 2 gm/ (Dextrose) 100 mls @ 200 mls/hr IVPB DAILY [facility]; Protocol Last Admin: 03/08/19 09:05 Dose: 200 mls/hr Metronidazole (Flagyl 500mg Premixed Ivpb -) 500 mg in 100 mls @ 100 mls/hr IVPB Q8H-IV [facility] Last Admin: 03/09/19 01:37 Dose: 100 mls/hr Insulin Aspart (Novolog Vial Sliding Scale -) 1 vial SQ BIDAC [facility]; Protocol Last Admin: 03/09/19 07:59 Dose: Not Given Lactobacillus Acidophilus (Bacid -) 1 tab PO DAILY [facility] Last Admin: 03/08/19 09:05 Dose: 1 tab Midodrine (Proamatine -) 10 mg PO TID-MID [facility] Last Admin: 03/08/19 17:08 Dose: 10 mg Morphine Sulfate (Morphine Sulfate) 2 mg IVPUSH Q4H PRN PRN Reason: PAIN LEVEL 6-10 Last Admin: 03/09/19 05:07 Dose: 2 mg Multivitamins/Minerals/Vitamin C (Tab-A-Vit -) 1 tab PO DAILY [facility] Last Admin: 03/08/19 09:07 Dose: 1 tab Pantoprazole Sodium (Protonix Iv) 40 mg IVPUSH DAILY [facility] Last Admin: 03/08/19 09:06 Dose: 40 mg Tamsulosin HCl (Flomax -) 0.4 mg PO HS [facility] Last Admin: 03/08/19 21:30 Dose: 0.4 mg Last Vital Signs Temp Pulse Resp BP Pulse Ox 98 F 103 H 18 108/51 L 98 03/09/19 07:20 03/09/19 07:30 03/09/19 07:30 03/09/19 07:30 03/08/19 21:00 Seen while on dialysis awake Lungs clear heart reg Abd soft CBC, BMP 03/09/19 05:20 03/09/19 05:20 IMP stable on dialysis Plan- HD maintenance next week
--- NOTE | 2019-03-09 09:48 | PN ---
Progress Note (short form) - Note Progress Note: HD in progress no fevers pressors off Vital Signs Period Temp Pulse Resp BP Sys/Zamorano Pulse Ox Last 24 Hr 97.5 F-98.7 F 86-113 18-28 82-115/42-61 98-98 cor-rrr lungs clear abd soft,nt ext contracted both feet with multiple purulent ulcers CBC, BMP 03/09/19 05:20 03/09/19 05:20 Microbiology 02/23/19 11:50 Blood - Peripheral Venous Blood Culture - Final NO GROWTH AFTER 5 DAYS INCUBATION 02/23/19 11:50 Blood - Peripheral Venous Blood Culture - Final NO GROWTH AFTER 5 DAYS INCUBATION 02/21/19 13:16 Blood - Peripheral Venous Blood Culture - Final Proteus Mirabilis Prevotella Melaninogenica 02/21/19 16:30 Foot - Left Heel Gram Stain - Final 02/21/19 16:30 Foot - Left Heel Wound Culture - Final Escherichia Coli Esbl Book Publisher Morganella Morganii 02/21/19 15:40 Blood - Peripheral Venous Blood Culture - Final Proteus Mirabilis 02/21/19 14:50 Urine - Urine - Catheterized Urine Culture - Final NO GROWTH OBTAINED Current Medications Allopurinol (Zyloprim -) 100 mg PO DAILY [facility] Last Admin: 03/08/19 09:07 Dose: 100 mg Amino Acids (Prosource No Carb Liquid Pkt) 30 ml PO TID [facility] Last Admin: 03/09/19 05:07 Dose: 30 ml Apixaban (Eliquis -) 2.5 mg PO BID [facility] Last Admin: 03/08/19 21:30 Dose: 2.5 mg Atorvastatin Calcium (Lipitor -) 20 mg PO HS [facility] Last Admin: 03/08/19 21:30 Dose: 20 mg Collagenase (Santyl -) 1 applic TP DAILY [facility]; Protocol Last Admin: 03/08/19 09:06 Dose: 1 applic Escitalopram Oxalate (Lexapro -) 10 mg PO DAILY [facility] Last Admin: 03/08/19 09:06 Dose: 10 mg Ceftriaxone Sodium 2 gm/ (Dextrose) 100 mls @ 200 mls/hr IVPB DAILY [facility]; Protocol Last Admin: 03/08/19 09:05 Dose: 200 mls/hr Metronidazole (Flagyl 500mg Premixed Ivpb -) 500 mg in 100 mls @ 100 mls/hr IVPB Q8H-IV [facility] Last Admin: 03/09/19 01:37 Dose: 100 mls/hr Insulin Aspart (Novolog Vial Sliding Scale -) 1 vial SQ BIDAC [facility]; Protocol Last Admin: 03/09/19 07:59 Dose: Not Given Lactobacillus Acidophilus (Bacid -) 1 tab PO DAILY [facility] Last Admin: 03/08/19 09:05 Dose: 1 tab Midodrine (Proamatine -) 10 mg PO TID-MID [facility] Last Admin: 03/08/19 17:08 Dose: 10 mg Morphine Sulfate (Morphine Sulfate) 2 mg IVPUSH Q4H PRN PRN Reason: PAIN LEVEL 6-10 Last Admin: 03/09/19 05:07 Dose: 2 mg Multivitamins/Minerals/Vitamin C (Tab-A-Vit -) 1 tab PO DAILY [facility] Last Admin: 03/08/19 09:07 Dose: 1 tab Pantoprazole Sodium (Protonix Iv) 40 mg IVPUSH DAILY [facility] Last Admin: 03/08/19 09:06 Dose: 40 mg Tamsulosin HCl (Flomax -) 0.4 mg PO HS [facility] Last Admin: 03/08/19 21:30 Dose: 0.4 mg a/p polymicrobial gram negative sepsis-proteus and prevotella suspected secondary to gangrenous legs esrd/hd on ceftriaxone/flagyl day #15 antibiotics overall prognosis is poor still trying to reach family ethics committee involved d/w primary service - son is coming on Monday - will continue antiiboitcs til then overall prognosis grim Problem List - Problems (1) Gram negative sepsis Code(s): A41.50 - GRAM-NEGATIVE SEPSIS, UNSPECIFIED (2) Gangrene of both feet Code(s): I96 - GANGRENE, NOT ELSEWHERE CLASSIFIED (3) ESRD (end stage renal disease) on dialysis Code(s): N18.6 - END STAGE RENAL DISEASE; Z99.2 - DEPENDENCE ON RENAL DIALYSIS (4) MRSA (methicillin resistant 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 coli carrier Code(s): Z22.39 - CARRIER OF OTHER SPECIFIED BACTERIAL DISEASES (6) VRE (vancomycin-resistant Enterococci) Code(s): A49.1 - STREPTOCOCCAL INFECTION, UNSPECIFIED SITE; Z16.21 - RESISTANCE TO VANCOMYCIN
--- NOTE | 2019-03-09 09:49 | PN ---
Physical Exam: SUBJECTIVE: Patient seen and examined ad bedside. No events overnight. Getting HD. OBJECTIVE: Vital Signs Period Temp Pulse Resp BP Sys/Zamorano Pulse Ox Last 24 Hr 97.5 F-98.7 F 86-113 18-28 82-115/42-61 98-98 GENERAL: The patient is awake, alert. Nonverbal. able to follow simple commands. HEAD: Normal with no signs of trauma. EYES: PERRL, extraocular movements intact, sclera anicteric, conjunctiva clear. No ptosis. LUNGS: Breath sounds equal, clear to auscultation bilaterally, no wheezes, no crackles, no accessory muscle use. HEART: Regular rate and rhythm, S1, S2 without murmur, rub or gallop. ABDOMEN: Soft, nontender, nondistended, normoactive bowel sounds, no guarding. EXTREMITIES: 2+ pulses, warm, well-perfused, no edema. NEUROLOGICAL: Cranial nerves II through X grossly intact. gait not observed. SKIN: Warm, dry, normal turgor. Multiple malodorous, gangrenous ulcers over the LE. largely unchanged from previous examination. Laboratory Results - last 24 hr 03/08/19 03/09/19 03/09/19 15:15 05:20 05:20 WBC 10.0 RBC 2.67 L Hgb 8.0 L Hct 24.8 L MCV 92.9 MCH 30.2 MCHC 32.5 RDW 19.0 H Plt Count 243 MPV 9.0 Absolute Neuts (auto) 7.1 Neutrophils % 71.1 Lymphocytes % 15.7 Monocytes % 11.1 H Eosinophils % 0.8 Basophils % 1.3 Nucleated RBC % 0 Sodium 138 Potassium 3.6 Chloride 102 Carbon Dioxide 30 Anion Gap 5 L BUN 23.2 H Creatinine 2.2 H Est GFR (CKD-EPI)AfAm 32.98 Est GFR (CKD-EPI)NonAf 28.45 POC Glucometer 110 Random Glucose 114 H Calcium 7.4 L Phosphorus 1.2 L Magnesium 1.9 Total Bilirubin 0.4 AST 14 L ALT < 6 L Alkaline Phosphatase 258 H Total Protein 4.8 L Albumin 1.3 L Active Medications Generic Name Dose Route Start Last Admin Trade Name Freq PRN Reason Stop Dose Admin Allopurinol 100 mg 02/22/19 10:00 03/08/19 09:07 Zyloprim - PO 100 mg DAILY [facility] Administration Amino Acids 30 ml 02/21/19 22:00 03/09/19 05:07 Prosource No Carb Liquid Pkt PO 30 ml TID [facility] Administration Apixaban 2.5 mg 02/21/19 22:00 03/08/19 21:30 Eliquis - PO 2.5 mg BID [facility] Administration Atorvastatin Calcium 20 mg 02/21/19 22:00 03/08/19 21:30 Lipitor - PO 20 mg HS [facility] Administration Collagenase 1 applic 02/22/19 10:00 03/08/19 09:06 Santyl - TP 1 applic DAILY [facility] Administration Protocol Escitalopram Oxalate 10 mg 02/22/19 10:00 03/08/19 09:06 Lexapro - PO 10 mg DAILY [facility] Administration Ceftriaxone Sodium 2 gm/ 100 mls @ 200 mls/hr 02/25/19 10:00 03/08/19 09:05 Dextrose IVPB 200 mls/hr DAILY [facility] Administration Protocol Metronidazole 500 mg in 100 mls @ 100 mls/hr 03/04/19 10:00 03/09/19 01:37 Flagyl 500mg Premixed Ivpb - IVPB 100 mls/hr Q8H-IV [facility] Administration Insulin Aspart 1 vial 02/26/19 10:00 03/09/19 07:59 Novolog Vial Sliding Scale - SQ Not Given BIDAC [facility] Protocol Lactobacillus Acidophilus 1 tab 02/22/19 10:00 03/08/19 09:05 Bacid - PO 1 tab DAILY [facility] Administration Midodrine 10 mg 03/02/19 14:00 03/08/19 17:08 Proamatine - PO 10 mg TID-MID [facility] Administration Morphine Sulfate 2 mg 02/28/19 22:48 03/09/19 05:07 Morphine Sulfate IVPUSH 2 mg Q4H PRN Administration PAIN LEVEL 6-10 Multivitamins/Minerals/Vitamin C 1 tab 02/22/19 10:00 03/08/19 09:07 Tab-A-Vit - PO 1 tab DAILY [facility] Administration Pantoprazole Sodium 40 mg 03/05/19 12:00 03/08/19 09:06 Protonix Iv IVPUSH 40 mg DAILY [facility] Administration Tamsulosin HCl 0.4 mg 02/21/19 22:00 03/08/19 21:30 Flomax - PO 0.4 mg HS [facility] Administration ASSESSMENT/PLAN: 73 yo M PMH dementia, CVA, DM, COPD, ESRD, gout, HTN, HLP admitted to ICU for septic shock 2/2 DM gangrenous B/L feet infx, Infected sacral decub and scrotal ulcer, and GN bacteremia. #septic shock 2/2 multiple gangrenous, infected ulcers. -old cx with E coli, ESBL, MRSA, and VRE. -contact isolation for MDRO -Bcx growing GN cher, has since cleared -ucx neg -wound cx E coli, morganella -ID consulted -palliative care consulted -c/w ceftriaxone 2g/flagyl (day 5) day #14 antibiotics. -Aspiration precautions. -Patient weaned off levophed this AM. Titrate pressors to keep MAP>65 -vascular surgery consulted, Dr harry, for wound care. amputation indicated, but family not amenable. cont GOC #ESRD on HD (MWF) -nephro consulted (Dr. Henriquez) -HD as per nephro -sevalemer held by nephro for low phos. #Acute on chronic anemia likely 2/2 ESRD -monitor H/H #Severe protein calorie malnutrition -albumin 1.1, prealbumin 3.5 -thin appearing, decreased muscle mass and fat -decreased overall PO intake -Encourage Magic cup, Ensure pudding for increased density of nutritional intake #COPD -keep SpO2>90% -Duonebs q6h PRN #Dm -ISS -BGM ACHS #H/o hypotension : -c/w home midodrine -monitor vitals # h/o afib -c/w elequis 2.5 bid #FEN -Not on any standing fluids -replete prn -NGT on tube feeds #Prophylaxis -Eliquis 2.5mg BID -Protonix IV while on AC and pressors -bacid #Disposition -full code -active GOC discussion w/ multiple family members as stated in previous notes. Patient's son scheduled to come to [facility] for family meeting on monday. -ICU monitoring Visit type - Emergency Visit Emergency Visit: Yes ED Registration Date: 02/21/19 Care time: The patient presented to the Emergency Department on the above date and was hospitalized for further evaluation of their emergent condition. - New Patient This patient is new to me today: No - Critical Care Critical Care patient: No - Discharge Referral Referred to [facility] Med P.C.: No
[2019-03-09] MEDS ORDERED: DEXTROSE 5%-WATER 100 ML IVPB ONE (11:25)
[2019-03-09] MEDS: CEFTRIAXONE 2 GM in DEXTROSE 5%-WATER 100 ML IVPB SCH (11:36)
[2019-03-09] MEDS: PANTOPRAZOLE SODIUM 40 MG VIAL IVPUSH SCH (11:36)
--- NOTE | 2019-03-09 11:38 | PN ---
Teaching Attending Note Name of Resident: Gen Hurd ATTENDING PHYSICIAN STATEMENT I saw and evaluated the patient. I reviewed the resident's note and discussed the case with the resident. I agree with the resident's findings and plan as documented. SUBJECTIVE: No events overnight OBJECTIVE: NAD,moaning CV: RRR, no MRG Lungs: clear anteriorly. Abd: soft, NL BS sacral area and leg wounds wee not examined today ASSESSMENT AND PLAN: 73 y/o man with h/o dementia, CVA, DM, COPD, ESRD, gout, HTN, HLP, recent admission 01/31-02/19 during which he was treated for sepsis due to infected b/l feet ulcers/gangrene. He was sent form NH due to poor po intake, and non healing wounds 1- Gangrene of b/l feet. infection in diabetic feet. 2- Septic shock. off pressors now 3- Infected sacral decub and scrotal ulcer 4- Proteus bacteremia ,polymicrobial wound 5- ESRD 6- DM 7- hypophosphatemia 8- anemia plan: - Abx: cont ceftiraxone and flagyl pending family decision on goals of care - monitor for need for pressors. - HD per schedule - monitor and replete electrolytes as needed. - SSI Poor prognosis .
[2019-03-09] MEDS: LACTOBACILLUS ACIDOPHILUS 1 TABLET PO SCH (11:39)
[2019-03-09] MEDS: MULTIVITAMINS (DAILY MVI) TABLET (FP) PO SCH (11:40)
[2019-03-09] MEDS: APIXABAN 2.5 MG TABLET PO SCH ×2 (11:40→21:11)
[2019-03-09] MEDS: ALLOPURINOL 100 MG TABLET (FP) PO SCH (11:40)
[2019-03-09] MEDS: ESCITALOPRAM OXALATE 10 MG TABLET (FP) PO SCH (11:41)
[2019-03-09] MEDS: MIDODRINE HCL 5 MG TABLET PO SCH ×3 (11:41→18:35)
[2019-03-09] MEDS: COLLAGENASE CLOSTRIDIUM HIST. 30 GRAMS TUBE TP SCH (11:45)
--- NOTE | 2019-03-09 12:23 | EKG ---
Test Reason : Blood Pressure : / mmHG Vent. Rate : 108 BPM Atrial Rate : 108 BPM P-R Int : 158 ms QRS Dur : 074 ms QT Int : 348 ms P-R-T Axes : 086 042 195 degrees QTc Int : 466 ms POOR DATA QUALITY, INTERPRETATION MAY BE ADVERSELY AFFECTED SINUS TACHYCARDIA WITH OCCASIONAL PREMATURE VENTRICULAR COMPLEXES ABNORMAL ECG WHEN COMPARED WITH ECG OF 21-FEB-2019 14:29, SINUS RHYTHM HAS REPLACED JUNCTIONAL RHYTHM Confirmed by MD KAYLENE, ROCKY ([id number]) on 03/09/2019 12:23:44 PM Referred By: PARAM GAMING DR Confirmed By:ROCKY MAURICE MD
--- NOTE | 2019-03-09 12:33 | PN ---
Progress Note (short form) - Note Progress Note: PULM/CCM Pt seen & examined in the ICU. Obtunded, septic, obviously suffering. Active Medications Allopurinol (Zyloprim -) 100 mg PO DAILY [facility] Last Admin: 03/09/19 11:40 Dose: 100 mg Amino Acids (Prosource No Carb Liquid Pkt) 30 ml PO TID [facility] Last Admin: 03/09/19 05:07 Dose: 30 ml Apixaban (Eliquis -) 2.5 mg PO BID [facility] Last Admin: 03/09/19 11:40 Dose: 2.5 mg Atorvastatin Calcium (Lipitor -) 20 mg PO HS [facility] Last Admin: 03/08/19 21:30 Dose: 20 mg Collagenase (Santyl -) 1 applic TP DAILY [facility]; Protocol Last Admin: 03/09/19 11:45 Dose: 1 applic Escitalopram Oxalate (Lexapro -) 10 mg PO DAILY [facility] Last Admin: 03/09/19 11:41 Dose: 10 mg Ceftriaxone Sodium 2 gm/ (Dextrose) 100 mls @ 200 mls/hr IVPB DAILY [facility]; Protocol Last Admin: 03/09/19 11:36 Dose: 200 mls/hr Metronidazole (Flagyl 500mg Premixed Ivpb -) 500 mg in 100 mls @ 100 mls/hr IVPB Q8H-IV [facility] Last Admin: 03/09/19 11:39 Dose: 100 mls/hr Insulin Aspart (Novolog Vial Sliding Scale -) 1 vial SQ BIDAC [facility]; Protocol Last Admin: 03/09/19 07:59 Dose: Not Given Lactobacillus Acidophilus (Bacid -) 1 tab PO DAILY [facility] Last Admin: 03/09/19 11:39 Dose: 1 tab Midodrine (Proamatine -) 10 mg PO TID-MID [facility] Last Admin: 03/09/19 11:41 Dose: 10 mg Morphine Sulfate (Morphine Sulfate) 2 mg IVPUSH Q4H PRN PRN Reason: PAIN LEVEL 6-10 Last Admin: 03/09/19 11:37 Dose: 2 mg Multivitamins/Minerals/Vitamin C (Tab-A-Vit -) 1 tab PO DAILY [facility] Last Admin: 03/09/19 11:40 Dose: 1 tab Pantoprazole Sodium (Protonix Iv) 40 mg IVPUSH DAILY [facility] Last Admin: 03/09/19 11:36 Dose: 40 mg Tamsulosin HCl (Flomax -) 0.4 mg PO HS [facility] Last Admin: 03/08/19 21:30 Dose: 0.4 mg Vital Signs Period Temp Pulse Resp BP Sys/Zamorano Pulse Ox Last 24 Hr 97.5 F-98.7 F 95-129 18-30 82-125/42-75 97-98 Intake & Output 03/06/19 03/07/19 03/08/19 03/09/19 23:59 23:59 23:59 23:59 Intake Total 3 1018 1774 494 Balance 2152 1018 1774 494 Weight 64.909 kg 67.903 kg 67.177 kg 153.5 kg GEN: Elderly man, in bed, non-verbal --> moaning PULM: CTAB CV: RRR, no MRG ABD: Obese, + BS, S/S N/T N/D X4Q SKIN: Warm, dry, normal turgor. EXT: Multiple B/L malodorous LE gangrenous ulcers CBC, BMP 03/09/19 05:20 03/09/19 05:20 Microbiology 02/23/19 11:50 Blood - Peripheral Venous Blood Culture - Final NO GROWTH AFTER 5 DAYS INCUBATION 02/23/19 11:50 Blood - Peripheral Venous Blood Culture - Final NO GROWTH AFTER 5 DAYS INCUBATION 02/21/19 13:16 Blood - Peripheral Venous Blood Culture - Final Proteus Mirabilis Prevotella Melaninogenica 02/21/19 16:30 Foot - Left Heel Gram Stain - Final 02/21/19 16:30 Foot - Left Heel Wound Culture - Final Escherichia Coli Esbl Stereoptician Morganella Morganii 02/21/19 15:40 Blood - Peripheral Venous Blood Culture - Final Proteus Mirabilis 02/21/19 14:50 Urine - Urine - Catheterized Urine Culture - Final NO GROWTH OBTAINED RECENT STUDIES TO NOTE: CXR 03/07: Since 03/03/2019, a left internal jugular central venous catheter is again seen with its tip now at the junction of the brachiocephalic and superior vena cava. Interval insertion of a left subclavian central venous catheter with its tip in the proximal superior vena cava. A chin artifact is obscuring the thoracic inlet, mainly on the right. No gross pneumothorax is identified. There is moderate elevation of the right hemidiaphragm. Mild bilateral increased interstitial lung markings are present. The cardiac silhouette is within normal limits in size ASSESS: Bilateral LE Gangrene Infected Decubitus Ulcers Gram Negative Bacteremia Septic Shock ESRD on HD DM HTN Hyperlipidemia h/o CVA PLAN: - continue antibiotics per ID - continue midodrine - taper off pressors to maintain MAP >65 - monitor H/H - wound care - HD per renal - aspiration precautions - continue attempts to contact family regarding goals of care, advanced directives - DVT prophylaxis [facility] ICU PULM/CCM [id number]
[2019-03-09] MEDS ORDERED: AMIODARONE HCL 150 MG/3 ML VIAL IVPUSH STA (14:24)
[2019-03-09] MEDS ORDERED: NOREPINEPHRINE BITARTRATE 4 MG/4 ML ML IV ONE (17:23)
[2019-03-09] MEDS: NOREPINEPHRINE BITARTRATE 8,000 MCG in DEXTROSE 5%-WATER - 492 ML IV SCH (17:30)
[2019-03-09] MEDS: TAMSULOSIN HCL 0.4 MG CAP PO SCH (21:12)
[2019-03-09] MEDS: ATORVASTATIN CA 20 MG TABLET (FP) PO SCH (21:12)
[2019-03-10] MEDS ORDERED: ACETAMINOPHEN 325 MG TABLET (FP) PO PRN (00:33)
[2019-03-10] MEDS ORDERED: NOREPINEPHRINE BITARTRATE 4 MG/4 ML ML IV ONE ×2 (05:43→18:05)
[2019-03-10 05:59] LABS: HEMATOCRIT 26.7 % (35.4-49); HEMOGLOBIN 8.1 GM/dL (11.7-16.9); MCH 28.8 pg (25.7-33.7); MCHC 30.4 g/dl (32.0-35.9); MEAN CELL VOLUME 94.9 fl (80-96); MEAN PLT VOLUME 9.1 fl (7.5-11.1); PLATELET COUNT 227 K/MM3 (134-434); RBC 2.82 M/mm3 (4.00-5.60); RDW 19.8 % (11.9-15.9); WHITE BLOOD COUNT 13.6 K/mm3 (4.0-10.0)
[2019-03-10 06:20] LABS: ALBUMIN 1.3 g/dl (3.4-5.0); BILIRUBIN,TOTAL 0.6 mg/dL (0.2-1); BLOOD UREA NITROGEN 16.8 mg/dL (7-18); CALCIUM 7.6 mg/dL (8.5-10.1); CREATININE 1.9 mg/dL (0.55-1.3); PHOSPHOROUS 1.2 mg/dL (2.5-4.9); TOT PROT 4.8 g/dl (6.4-8.2)
[2019-03-10] MEDS: INSULIN SLIDING SCALE (NOVOLOG) 1 VIAL SQ SCH ×2 (06:28→17:39)
[2019-03-10] MEDS: AMINO ACIDS/PROTEIN HYDROLYS 30 ML LIQUID.PKT PO SCH ×3 (06:28→21:42)
--- NOTE | 2019-03-10 08:57 | PN ---
Progress Note (short form) - Note Progress Note: Subjective: no events over night except for fever Objective: Vital Signs: Last Vital Signs Temp Pulse Resp BP Pulse Ox 99.1 F 105 H 30 H 110/51 L 100 03/10/19 06:00 03/10/19 08:00 03/10/19 08:00 03/10/19 08:00 03/09/19 21:00 Laboratory Results - last 24 hr 03/09/19 03/10/19 03/10/19 17:14 05:00 05:00 WBC 13.6 H RBC 2.82 L Hgb 8.1 L Hct 26.7 L MCV 94.9 MCH 28.8 MCHC 30.4 L RDW 19.8 H Plt Count 227 MPV 9.1 Sodium 142 Potassium 3.0 L Chloride 106 Carbon Dioxide 30 Anion Gap 6 L BUN 16.8 Creatinine 1.9 H Est GFR (CKD-EPI)AfAm 39.37 Est GFR (CKD-EPI)NonAf 33.97 POC Glucometer 83 Random Glucose 104 Calcium 7.6 L Phosphorus 1.2 L Magnesium 2.0 Total Bilirubin 0.6 AST 24 ALT 8 L Alkaline Phosphatase 313 H Total Protein 4.8 L Albumin 1.3 L 03/10/19 06:24 WBC RBC Hgb Hct MCV MCH MCHC RDW Plt Count MPV Sodium Potassium Chloride Carbon Dioxide Anion Gap BUN Creatinine Est GFR (CKD-EPI)AfAm Est GFR (CKD-EPI)NonAf POC Glucometer 92 Random Glucose Calcium Phosphorus Magnesium Total Bilirubin AST ALT Alkaline Phosphatase Total Protein Albumin NAD, sleeping comfortably CV: RRR, no MRG Lungs: clear anteriorly. Abd: soft, NL BS sacral area and leg wounds wee not examined today ASSESSMENT AND PLAN: 73 y/o man with h/o dementia, CVA, DM, COPD, ESRD, gout, HTN, HLP, recent admission 01/31-02/19 during which he was treated for sepsis due to infected b/l feet ulcers/gangrene. He was sent form NH due to poor po intake, and non healing wounds 1- Gangrene of b/l feet. infection in diabetic feet. 2- Septic shock. 3- Infected sacral decub and scrotal ulcer 4- Proteus bacteremia ,polymicrobial wound 5- ESRD 6- DM 7- hypophosphatemia and hypokalemia 8- anemia plan: - Abx: cont ceftiraxone and flagyl . fever last night - back on Levophed . monitor BP - HD per schedule - monitor and replete electrolytes ( K and phos today ) - SSI Poor prognosis . Visit type - Emergency Visit Emergency Visit: Yes ED Registration Date: 02/21/19 Care time: The patient presented to the Emergency Department on the above date and was hospitalized for further evaluation of their emergent condition. - New Patient This patient is new to me today: No - Critical Care Critical Care patient: Yes Total Critical Care Time (in minutes): 25
[2019-03-10] MEDS ORDERED: DEXTROSE 5%-WATER 100 ML IVPB ONE (09:15)
[2019-03-10] MEDS: CEFTRIAXONE 2 GM in DEXTROSE 5%-WATER 100 ML IVPB SCH (09:20)
[2019-03-10] MEDS ORDERED: POTASSIUM PHOSPHATE 15 MM in SODIUM CHLORIDE 250 ML IVPB ONE (10:00)
--- NOTE | 2019-03-10 10:03 | PN ---
Progress Note (short form) - Note Progress Note: PULM/CCM Pt seen & examined in the ICU. Pt continues to deteriorate, daughter remains unreachable, pt remains obtunded, septic, suffering, aspirating tube feeds, febrile O/N. Plan remains to meet w/ son & Ethics on Monday03/12/2019 and possibly move pt to WAD LUBRICATOR vs B/L AKA. Active Medications Acetaminophen (Tylenol -) 650 mg PO Q4H PRN PRN Reason: FEVER Last Admin: 03/10/19 00:47 Dose: 650 mg Allopurinol (Zyloprim -) 100 mg PO DAILY CHANTELL Last Admin: 03/09/19 11:40 Dose: 100 mg Amino Acids (Prosource No Carb Liquid Pkt) 30 ml PO TID [facility]ANTELL Last Admin: 03/10/19 06:28 Dose: Not Given Apixaban (Eliquis -) 2.5 mg PO BID [facility]ANTELL Last Admin: 03/09/19 21:11 Dose: 2.5 mg Atorvastatin Calcium (Lipitor -) 20 mg PO HS [facility]ANTELL Last Admin: 03/09/19 21:12 Dose: 20 mg Collagenase (Santyl -) 1 applic TP DAILY CHANTELL; Protocol Last Admin: 03/09/19 11:45 Dose: 1 applic Escitalopram Oxalate (Lexapro -) 10 mg PO DAILY CHANTELL Last Admin: 03/09/19 11:41 Dose: 10 mg Ceftriaxone Sodium 2 gm/ (Dextrose) 100 mls @ 200 mls/hr IVPB DAILY CHANTELL; Protocol Last Admin: 03/10/19 09:20 Dose: 200 mls/hr Metronidazole (Flagyl 500mg Premixed Ivpb -) 500 mg in 100 mls @ 100 mls/hr IVPB Q8H-IV [facility]ANTELL Last Admin: 03/10/19 09:21 Dose: 100 mls/hr Norepinephrine Bitartrate 8, (000 mcg/ Dextrose) 500 mls @ 17.26 mls/hr IV ASDIR CHANTELL; Protocol Last Titration: 03/10/19 06:39 Dose: 0.08 mcg/kg/min, 46.05 mls/hr Potassium Phosphate 15 mm/ (Sodium Chloride) 255 mls @ 62.5 mls/hr IVPB ONCE ONE Stop: 03/10/19 14:04 Insulin Aspart (Novolog Vial Sliding Scale -) 1 vial SQ BIDAC CHANTELL; Protocol Last Admin: 03/10/19 06:28 Dose: Not Given Lactobacillus Acidophilus (Bacid -) 1 tab PO DAILY [facility] Last Admin: 03/09/19 11:39 Dose: 1 tab Midodrine (Proamatine -) 10 mg PO TID-MID [facility] Last Admin: 03/09/19 18:35 Dose: 10 mg Morphine Sulfate (Morphine Sulfate) 2 mg IVPUSH Q4H PRN PRN Reason: PAIN LEVEL 6-10 Last Admin: 03/09/19 17:50 Dose: 2 mg Multivitamins/Minerals/Vitamin C (Tab-A-Vit -) 1 tab PO DAILY [facility] Last Admin: 03/09/19 11:40 Dose: 1 tab Pantoprazole Sodium (Protonix Iv) 40 mg IVPUSH DAILY [facility] Last Admin: 03/09/19 11:36 Dose: 40 mg Tamsulosin HCl (Flomax -) 0.4 mg PO HS [facility] Last Admin: 03/09/19 21:12 Dose: 0.4 mg Vital Signs Period Temp Pulse Resp BP Sys/Zamorano Pulse Ox Last 24 Hr 98.2 F-101.1 F 89-129 18-33 86-115/41-65 100 Intake & Output 03/07/19 03/08/19 03/09/19 03/10/19 23:59 23:59 23:59 23:59 Intake Total 1018 1774 1512 828 Balance 1018 1774 1512 828 Weight 67.903 kg 67.177 kg 153.5 kg 71.1 kg GEN: Elderly man, in bed, sick, toxic, obtunded PULM: Coarse ronchi CV: RRR, no MRG ABD: Obese, + BS, S/S N/T N/D X4Q SKIN: Warm, dry, normal turgor. EXT: Multiple B/L malodorous LE gangrenous ulcers CBC, BMP 03/10/19 05:00 03/10/19 05:00 Microbiology 02/23/19 11:50 Blood - Peripheral Venous Blood Culture - Final NO GROWTH AFTER 5 DAYS INCUBATION 02/23/19 11:50 Blood - Peripheral Venous Blood Culture - Final NO GROWTH AFTER 5 DAYS INCUBATION 02/21/19 13:16 Blood - Peripheral Venous Blood Culture - Final Proteus Mirabilis Prevotella Melaninogenica 02/21/19 16:30 Foot - Left Heel Gram Stain - Final 02/21/19 16:30 Foot - Left Heel Wound Culture - Final Escherichia Coli Esbl [place] [employer] Morganella Morganii 02/21/19 15:40 Blood - Peripheral Venous Blood Culture - Final Proteus Mirabilis 02/21/19 14:50 Urine - Urine - Catheterized Urine Culture - Final NO GROWTH OBTAINED RECENT STUDIES TO NOTE: CXR 03/07: Since 03/03/2019, a left internal jugular central venous catheter is again seen with its tip now at the junction of the brachiocephalic and superior vena cava. Interval insertion of a left subclavian central venous catheter with its tip in the proximal superior vena cava. A chin artifact is obscuring the thoracic inlet, mainly on the right. No gross pneumothorax is identified. There is moderate elevation of the right hemidiaphragm. Mild bilateral increased interstitial lung markings are present. The cardiac silhouette is within normal limits in size ASSESS: Bilateral LE Gangrene Infected Decubitus Ulcers Gram Negative Bacteremia Septic Shock ASP PNA ESRD on HD DM HTN Hyperlipidemia h/o CVA PLAN: - D/c TFs (Aspirating) - continue antibiotics per ID - continue midodrine - Pressors prn - monitor H/H - wound care - HD per renal - aspiration precautions - Meet w/ son & Ethics on Monday03/12/2019 RE; WAD LUBRICATOR vs B/L AKA. - DVT prophylaxis [facility] ICU PULM/CCM [id number]
[2019-03-10] MEDS: COLLAGENASE CLOSTRIDIUM HIST. 30 GRAMS TUBE TP SCH (10:26)
[2019-03-10] MEDS: PANTOPRAZOLE SODIUM 40 MG VIAL IVPUSH SCH (10:26)
[2019-03-10] MEDS: MIDODRINE HCL 5 MG TABLET PO SCH ×3 (10:26→18:08)
[2019-03-10] MEDS: LACTOBACILLUS ACIDOPHILUS 1 TABLET PO SCH (10:26)
[2019-03-10] MEDS: MULTIVITAMINS (DAILY MVI) TABLET (FP) PO SCH (10:26)
[2019-03-10] MEDS: APIXABAN 2.5 MG TABLET PO SCH ×2 (10:26→21:41)
[2019-03-10] MEDS: ALLOPURINOL 100 MG TABLET (FP) PO SCH (10:26)
[2019-03-10] MEDS: ESCITALOPRAM OXALATE 10 MG TABLET (FP) PO SCH (10:26)
--- NOTE | 2019-03-10 14:20 | PN ---
Progress Note (short form) - Note Progress Note: ESRD dementia, CVA, DM, COPD, gout, HTN, HLP, non healing wounds Gangrene of b/l feet. infection in diabetic feet. Septic shock. Infected sacral decub and scrotal ulcer Proteus bacteremia ,polymicrobial wound 7- hypophosphatemia and hypokalemia 8- anemia Current Medications Acetaminophen (Tylenol -) 650 mg PO Q4H PRN PRN Reason: FEVER Last Admin: 03/10/19 00:47 Dose: 650 mg Allopurinol (Zyloprim -) 100 mg PO DAILY [facility] Last Admin: 03/10/19 10:26 Dose: 100 mg Amino Acids (Prosource No Carb Liquid Pkt) 30 ml PO TID [facility]ANTELL Last Admin: 03/10/19 06:28 Dose: Not Given Apixaban (Eliquis -) 2.5 mg PO BID [facility]TE[facility] Last Admin: 03/10/19 10:26 Dose: 2.5 mg Atorvastatin Calcium (Lipitor -) 20 mg PO HS [facility] Last Admin: 03/09/19 21:12 Dose: 20 mg Collagenase (Santyl -) 1 applic TP DAILY [facility]TE[facility]; Protocol Last Admin: 03/10/19 10:26 Dose: 1 applic Escitalopram Oxalate (Lexapro -) 10 mg PO DAILY [facility] Last Admin: 03/10/19 10:26 Dose: 10 mg Ceftriaxone Sodium 2 gm/ (Dextrose) 100 mls @ 200 mls/hr IVPB DAILY [facility]TE[facility]; Protocol Last Admin: 03/10/19 09:20 Dose: 200 mls/hr Metronidazole (Flagyl 500mg Premixed Ivpb -) 500 mg in 100 mls @ 100 mls/hr IVPB Q8H-IV [facility] Last Admin: 03/10/19 09:21 Dose: 100 mls/hr Norepinephrine Bitartrate 8, (000 mcg/ Dextrose) 500 mls @ 17.26 mls/hr IV ASDIR CHANTELL; Protocol Last Titration: 03/10/19 06:39 Dose: 0.08 mcg/kg/min, 46.05 mls/hr Insulin Aspart (Novolog Vial Sliding Scale -) 1 vial SQ BIDAC CHANTELL; Protocol Last Admin: 03/10/19 06:28 Dose: Not Given Lactobacillus Acidophilus (Bacid -) 1 tab PO DAILY [facility]TE[facility] Last Admin: 03/10/19 10:26 Dose: 1 tab Midodrine (Proamatine -) 10 mg PO TID-MID [facility] Last Admin: 03/10/19 10:26 Dose: 10 mg Morphine Sulfate (Morphine Sulfate) 2 mg IVPUSH Q4H PRN PRN Reason: PAIN LEVEL 6-10 Last Admin: 03/09/19 17:50 Dose: 2 mg Multivitamins/Minerals/Vitamin C (Tab-A-Vit -) 1 tab PO DAILY [facility] Last Admin: 03/10/19 10:26 Dose: 1 tab Pantoprazole Sodium (Protonix Iv) 40 mg IVPUSH DAILY [facility] Last Admin: 03/10/19 10:26 Dose: 40 mg Tamsulosin HCl (Flomax -) 0.4 mg PO HS [facility] Last Admin: 03/09/19 21:12 Dose: 0.4 mg Last Vital Signs Temp Pulse Resp BP Pulse Ox 99.2 F 107 H 21 H 110/49 L 96 03/10/19 09:00 03/10/19 12:00 03/10/19 12:00 03/10/19 12:00 03/10/19 12:31 awake Lungs clear heart reg Abd soft IMP sepsis on pressors again foot and sacral ulcers poss aspiration? Plan- HD maintenance if hemodynamically stable
[2019-03-10] MEDS: MORPHINE SULFATE 2 MG/ML VIAL IVPUSH PRN (14:40)
[2019-03-10] MEDS: NOREPINEPHRINE BITARTRATE 8,000 MCG in DEXTROSE 5%-WATER - 492 ML IV SCH (18:08)
[2019-03-10] MEDS ORDERED: AMIODARONE HCL 150 MG/3 ML VIAL IVPUSH ONE (21:22)
[2019-03-10 21:26] LABS: MAGNESIUM 1.8 mg/dL (1.8-2.4); POTASSIUM 3.4 mmol/L (3.5-5.1)
[2019-03-10] MEDS ORDERED: POTASSIUM CHLORIDE ORAL LIQUID 20 MEQ/15 ML PO ONE (21:35)
[2019-03-10] MEDS: ATORVASTATIN CA 20 MG TABLET (FP) PO SCH (21:41)
[2019-03-10] MEDS: TAMSULOSIN HCL 0.4 MG CAP PO SCH (21:41)
[2019-03-10] MEDS ORDERED: MORPHINE SULFATE 2 MG/ML VIAL ONE (23:55)
[2019-03-11] MEDS ORDERED: RAPID SEQUENCE INTUBATION KIT NR ONE (00:02)
[2019-03-11] MEDS ORDERED: SODIUM CHLORIDE 500 ML IV STA ×2 (00:22→04:27)
--- NOTE | 2019-03-11 00:22 | PN ---
Progress Note (short form) - Note Progress Note: CXR reviewed; pt compliant with ventilator settings (450, 14, 50%, 5) and appears comfortable. titrate Levophed to MAP 55-60 --- Pt became tachycardic throughout the night and received Amiodarone 150mg load dose which minimized his ectopic beats and NSVT. Pt remained comfortable until RR increased to 35 and required increased oxygenation requirements. Pt was suctioned which resulted in minimal secretions and had diaphragm offloaded. High -flow O2 was ordered for work of breathing, however pt further deteriorated and started to show abdominal retractions and RR to 42 and HR to 120bpm. Anesthesia paged for intubation who placed ETT tube. CXR ordered Fentanyl gtt placed for comfort given pt's relative hypotension; as pressure improves can switch to low dose propofol for light sedation.
--- NOTE | 2019-03-11 00:27 | PN ---
HC Provider Note Provider Note: Anesthesia Intubation Note Called to see pt tachypnic, altered mental status w/ gangrenous foot Pt with known dementia peripheral gangreen suspected aspiration in the past found in impending resp failure VSS BP 91/65 HR107 97% RR 38 latest K 3.4 50 mg propofol 100 mg succinylcholine DLx1 VC seen grade 2 view 7.5 ETT placed without complications, secured at 22 cm at gums with resp therapist Raza Watson.
[2019-03-11] MEDS ORDERED: fentaNYL CITRATE 250 MCG/5 ML VIAL ONE ×2 (00:36→13:27)
[2019-03-11] MEDS: FENTANYL INJECTION 500 MCG in DEXTROSE 5%-WATER - 90 ML IVPB SCH ×2 (00:41→13:34)
[2019-03-11] MEDS: ACETAMINOPHEN 1000 MG/100 ML VIAL (NON FORMULARY) IVPB PRN ×2 (04:36→20:51)
[2019-03-11 06:06] LABS: BASO % 1.4 % (0-2.0); EOS % 0.9 % (0-4.5); HEMATOCRIT 24.8 % (35.4-49); HEMOGLOBIN 7.8 GM/dL (11.7-16.9); LYMPH % 18.1 % (8-40); MCH 30.2 pg (25.7-33.7); MCHC 31.3 g/dl (32.0-35.9); MEAN CELL VOLUME 96.4 fl (80-96); MEAN PLT VOLUME 8.9 fl (7.5-11.1); MONO % 7.6 % (3.8-10.2); PLATELET COUNT 210 K/MM3 (134-434); RBC 2.58 M/mm3 (4.00-5.60); RDW 20.4 % (11.9-15.9); WHITE BLOOD COUNT 9.7 K/mm3 (4.0-10.0)
[2019-03-11] MEDS: NOREPINEPHRINE BITARTRATE 8,000 MCG in DEXTROSE 5%-WATER - 492 ML IV SCH ×3 (06:20→18:58)
[2019-03-11] MEDS: VASOPRESSIN 50 UNITS in SODIUM CHLORIDE 97.5 ML IVPB SCH (06:30)
[2019-03-11] MEDS ORDERED: VASOPRESSIN 20 UNITS/ML VIAL IV ONE (06:32)
[2019-03-11 06:46] LABS: ARTERIAL BLD GAS O2 SATURATION 97.2 % (95-98); ARTERIAL BLOOD GAS BASE EXCESS -2.2 meq/l (-2-2); ARTERIAL BLOOD GAS PCO2 32.4 mmHg (35-45); ARTERIAL BLOOD GAS PO2 86.9 mmHg (80-105); ARTERIAL BLOOD GAS pH 7.43 (7.35-7.45)
[2019-03-11 06:52] LABS: ALLENS TEST POSITIVE
[2019-03-11] MEDS: INSULIN SLIDING SCALE (NOVOLOG) 1 VIAL SQ SCH ×2 (06:53→17:37)
[2019-03-11] MEDS: AMINO ACIDS/PROTEIN HYDROLYS 30 ML LIQUID.PKT PO SCH ×3 (06:58→21:01)
[2019-03-11 07:01] LABS: BLOOD UREA NITROGEN 23.2 mg/dL (7-18); CALCIUM 7.2 mg/dL (8.5-10.1); CREATININE 2.6 mg/dL (0.55-1.3); PHOSPHOROUS 1.9 mg/dL (2.5-4.9); POTASSIUM 3.6 mmol/L (3.5-5.1)
[2019-03-11] MEDS ORDERED: NAPH,MB-DB/K PH,MBDB POWDER PACKET PO ONE (07:42)
--- NOTE | 2019-03-11 07:48 | PN ---
Physical Exam: SUBJECTIVE: Patient seen and examined in ICU. Overnight spiking fevers, SVTs, and in respiratory failure requiring intubation, see Dr Overton note for further details. Remains hypotensive on pressors x2 in septic shock. GOC/ethics meeting ongoing OBJECTIVE: Vital Signs Period Temp Pulse Resp BP Sys/Zamorano Pulse Ox Last 24 Hr 98.8 F-100.9 F 96-125 14-35 65-117/36-65 93-112 GENERAL: intubated sedated. thin appearing, decreased muscle mass and fat EARS, NOSE, THROAT: dry mucous membranes. LUNGS: CTAB HEART: irregularly irregular s1s2 normal ABDOMEN: Soft, NTND normoactive bowel sounds, ulcer present on sacrum unstagable with foul discharge, scrotum has ulcer no discharge MUSCULOSKELETAL: Normal range of motion at all joints. No bony deformities or tenderness. No CVA tenderness. UPPER EXTREMITIES: 2+ pulses, warm, well-perfused. LOWER EXTREMITIES: b/l wet gangrene with fouls smelling discharge SKIN: Warm, dry, Neuo: intubated sedated. +gag reflex, sluggish pupils, non responsive to pain or voice Laboratory Results - last 24 hr 03/10/19 03/10/19 03/10/19 17:37 20:25 21:52 WBC RBC Hgb Hct MCV MCH MCHC RDW Plt Count MPV Absolute Neuts (auto) Neutrophils % Lymphocytes % Monocytes % Eosinophils % Basophils % Nucleated RBC % Anticoagulation Therapy Puncture Site ABG pH ABG pCO2 at Pt Temp ABG pO2 at Pt Temp ABG HCO3 ABG O2 Sat (Measured) ABG O2 Content ABG Base Excess Johan Test O2 Delivery Device Oxygen Flow Rate Vent Mode Vent Rate Mechanical Rate PEEP Pressure Support Vent Sodium Potassium 3.4 L Chloride Carbon Dioxide Anion Gap BUN Creatinine Est GFR (CKD-EPI)AfAm Est GFR (CKD-EPI)NonAf POC Glucometer 89 88 Random Glucose Calcium Phosphorus Magnesium 1.8 03/11/19 03/11/19 03/11/19 05:30 05:30 06:30 WBC 9.7 RBC 2.58 L Hgb 7.8 L Hct 24.8 L MCV 96.4 H MCH 30.2 MCHC 31.3 L RDW 20.4 H Plt Count 210 MPV 8.9 Absolute Neuts (auto) 7.0 Neutrophils % 72.0 Lymphocytes % 18.1 Monocytes % 7.6 Eosinophils % 0.9 Basophils % 1.4 Nucleated RBC % 0 Anticoagulation Therapy No Result Required. Puncture Site Left radial ABG pH 7.43 ABG pCO2 at Pt Temp 32.4 L ABG pO2 at Pt Temp 86.9 ABG HCO3 21.2 L ABG O2 Sat (Measured) 97.2 ABG O2 Content 10.2 L ABG Base Excess -2.2 L Johan Test Positive O2 Delivery Device Mech vent Oxygen Flow Rate 50% Vent Mode A/c Vent Rate 14 Mechanical Rate Yes PEEP 5.0 Pressure Support Vent 450 Sodium 137 Potassium 3.6 Chloride 104 Carbon Dioxide 23 Anion Gap 10 BUN 23.2 H Creatinine 2.6 H Est GFR (CKD-EPI)AfAm 26.95 Est GFR (CKD-EPI)NonAf 23.25 POC Glucometer Random Glucose 94 Calcium 7.2 L Phosphorus 1.9 L Magnesium 03/11/19 06:51 WBC RBC Hgb Hct MCV MCH MCHC RDW Plt Count MPV Absolute Neuts (auto) Neutrophils % Lymphocytes % Monocytes % Eosinophils % Basophils % Nucleated RBC % Anticoagulation Therapy Puncture Site ABG pH ABG pCO2 at Pt Temp ABG pO2 at Pt Temp ABG HCO3 ABG O2 Sat (Measured) ABG O2 Content ABG Base Excess Johan Test O2 Delivery Device Oxygen Flow Rate Vent Mode Vent Rate Mechanical Rate PEEP Pressure Support Vent Sodium Potassium Chloride Carbon Dioxide Anion Gap BUN Creatinine Est GFR (CKD-EPI)AfAm Est GFR (CKD-EPI)NonAf POC Glucometer 81 Random Glucose Calcium Phosphorus Magnesium Active Medications Generic Name Dose Route Start Last Admin Trade Name Freq PRN Reason Stop Dose Admin Acetaminophen 1,000 mg 03/11/19 04:18 03/11/19 04:36 Ofirmev Injection - IVPB 1,000 mg Q6H PRN Administration FEVER Allopurinol 100 mg 02/22/19 10:00 03/10/19 10:26 Zyloprim - PO 100 mg DAILY CHANTELL Administration Amino Acids 30 ml 02/21/19 22:00 03/11/19 06:58 Prosource No Carb Liquid Pkt PO 30 ml TID CHANTELL Administration Apixaban 2.5 mg 02/21/19 22:00 03/10/19 21:41 Eliquis - PO 2.5 mg BID CHANTELL Administration Atorvastatin Calcium 20 mg 02/21/19 22:00 03/10/19 21:41 Lipitor - PO 20 mg HS CHANTELL Administration Collagenase 1 applic 02/22/19 10:00 03/10/19 10:26 Santyl - TP 1 applic DAILY CHANTELL Administration Protocol Escitalopram Oxalate 10 mg 02/22/19 10:00 03/10/19 10:26 Lexapro - PO 10 mg DAILY CHANTELL Administration Ceftriaxone Sodium 2 gm/ 100 mls @ 200 mls/hr 02/25/19 10:00 03/10/19 09:20 Dextrose IVPB 200 mls/hr DAILY CHANTELL Administration Protocol Metronidazole 500 mg in 100 mls @ 100 mls/hr 03/04/19 10:00 03/11/19 01:16 Flagyl 500mg Premixed Ivpb - IVPB 100 mls/hr Q8H-IV CHANTELL Administration Fentanyl 500 mcg/ Dextrose 100 mls @ 1 mls/hr 03/11/19 00:45 03/11/19 06:56 IVPB 25 mcg/hr TITR CHANTELL 5 mls/hr Titration 5 MCG/HR Norepinephrine Bitartrate 8, 500 mls @ 18.75 mls/hr 03/11/19 05:58 03/11/19 06:56 000 mcg/ Dextrose IV 30 mcg/min ASDIR CHANTELL 112.5 mls/hr Titration Protocol 5 MCG/MIN Vasopressin 50 units/ Sodium 100 mls @ 4 mls/hr 03/11/19 06:30 03/11/19 06:54 Chloride IVPB 4 units/hr ASDIR CHANTELL 8 mls/hr Titration Protocol 2 UNITS/HR Insulin Aspart 1 vial 02/26/19 10:00 03/11/19 06:53 Novolog Vial Sliding Scale - SQ Not Given BIDAC CHANTELL Protocol Lactobacillus Acidophilus 1 tab 02/22/19 10:00 03/10/19 10:26 Bacid - PO 1 tab DAILY CHANTELL Administration Midodrine 10 mg 03/02/19 14:00 03/10/19 18:08 Proamatine - PO 10 mg TID-MID CHANTELL Administration Morphine Sulfate 2 mg 02/28/19 22:48 03/10/19 14:40 Morphine Sulfate IVPUSH 2 mg Q4H PRN Administration PAIN LEVEL 6-10 Multivitamins/Minerals/Vitamin C 1 tab 02/22/19 10:00 03/10/19 10:26 Tab-A-Vit - PO 1 tab DAILY CHANTELL Administration Pantoprazole Sodium 40 mg 03/05/19 12:00 03/10/19 10:26 Protonix Iv IVPUSH 40 mg DAILY CHANTELL Administration Tamsulosin HCl 0.4 mg 02/21/19 22:00 03/10/19 21:41 Flomax - PO 0.4 mg HS CHANTELL Administration ASSESSMENT/PLAN: 73 yo M PMH dementia, CVA, DM, COPD, ESRD, gout, HTN, HLP, recent admission 01/31- 02/19 during which he was treated for sepsis due to infected b/l feet ulcers/ gangrene. He was sent form NH due to poor po intake, and worsening of ulcers. Now in septic shock 2/2 DM gangrenous B/L feet infx, Infected sacral decub and scrotal ulcer, and GN bacteremia , requiring ICU and pressors #septic shock 2/2 DM gangrenous B/L feet infx, Infected sacral decub and scrotal ulcer, and GN bacteremia (proteus, prevotella) - requiring ICU and pressors, +Leukocytosis. Now w/ hypoxic respiratory failure possibly 2/2 developing aspiration PNA (aspirated over the weekend) requiring intubation/ sedation. CXR 03/11 shows questionable infiltrate L base -old cx with E coli, ESBL, MRSA, and VRE. -contact isolation for MDRO -s/p Vanc and Zosyn in the ED, Gentamicin x1, Meropenem x2 in ICU -Bcx 02/21/19 growing GN cher - proteus and prevotella -ucx neg -wound cx E coli, morganella -Bcx 02/23/19 neg -f/u sputum cx, bcx 03/11/19 -ID consultedRangel -lactic acid resolved -palliative care consulted -switch CTX 2g/flagyl to Meropenem day #17 total abx, ID recs appreciated -Aspiration precautions. -Levophed 24, vasopressin 5 gtt, Titrate pressors to keep MAP>65 -fentanyl 25mcg for comfort and sedation -vascular surgery consulted, Dr harry, for wound care. amputation indicated, but family not amenable. cont GOC -per ID no vanc, cx show no MRSA for >48hr #ESRD on HD (MWF) -nephro consulted (Dr. Henriquez) -HD as per nephvito marino held by nephro for low phos. #Acute on chronic anemia likely 2/2 ESRD -monitor H/H #Severe protein calorie malnutrition -albumin 1.1, prealbumin 3.5 -thin appearing, decreased muscle mass and fat -decreased overall PO intake -Encourage Magic cup, Ensure pudding for increased density of nutritional intake #COPD -keep SpO2>90% -Duonebs q6h PRN #Dm ISS BGM ACHS #H/o hypotension : c/w home midodrine monitor vitals # h/o afib c/w elequis 2.5 bid #FEN -Not on any standing fluids -replete prn -NGT on tube feeds #Prophylaxis -Eliquis 2.5mg BID -Protonix IV while on AC and pressors -bacid #Disposition -full code -GOC/ethics consult placed, as we have attempted multiple times to contact daughter who has not been responsive and in the past has not been amenable to to allow for source control/amputation and standard of care. given patients inability to make decisions for himself and daughter unwillingness pt will likely cont to suffer w/o improvement and has spoor prognosis. multiple times various members of primary team and ICU team have tried contacting daughter and brother for GOC/ethics meeting. Resident Dr Milton was able to make contact w/ daughter but no meaningful discussion was able to take place, please see Dr Milton note for further detail. brother has been contacted and will coming joshua for ethics/GOC meeting -ICU monitoring Visit type - Emergency Visit Emergency Visit: Yes ED Registration Date: 02/21/19 Care time: The patient presented to the Emergency Department on the above date and was hospitalized for further evaluation of their emergent condition. - New Patient This patient is new to me today: Yes Date on this admission: 03/11/19 - Critical Care Critical Care patient: Yes Total Critical Care Time (in minutes): 39 Critical Care Statement: The care of this patient involved high complexity decision making to prevent further life threatening deterioration of the patient 's condition and/or to evaluate & treat vital organ system(s) failure or risk of failure.
--- NOTE | 2019-03-11 09:17 | PN ---
Progress Note (short form) - Note Progress Note: intubated intermittent fevers ?aspiration tube feeds d/rene yesterday intubated overnight now on vasopressin and levophed Vital Signs Period Temp Pulse Resp BP Sys/Zamorano Pulse Ox Last 24 Hr 98.8 F-100.9 F 96-125 14-35 65-117/36-54 93-112 intubated cor-rrr lungs decreased bs at bases abd soft,nt ext contracted, dressing intact CBC, BMP 03/11/19 05:30 03/11/19 05:30 Microbiology 02/23/19 11:50 Blood - Peripheral Venous Blood Culture - Final NO GROWTH AFTER 5 DAYS INCUBATION 02/23/19 11:50 Blood - Peripheral Venous Blood Culture - Final NO GROWTH AFTER 5 DAYS INCUBATION 02/21/19 13:16 Blood - Peripheral Venous Blood Culture - Final Proteus Mirabilis Prevotella Melaninogenica 02/21/19 16:30 Foot - Left Heel Gram Stain - Final 02/21/19 16:30 Foot - Left Heel Wound Culture - Final Escherichia Coli Esbl Oral And Maxillofacial Surgery Resident Morganella Morganii 02/21/19 15:40 Blood - Peripheral Venous Blood Culture - Final Proteus Mirabilis 02/21/19 14:50 Urine - Urine - Catheterized Urine Culture - Final NO GROWTH OBTAINED cxray-congestion, ?LLL infiltrate, ?right basilar atelectasis, congestion Microbiology 02/23/19 11:50 Blood - Peripheral Venous Blood Culture - Final NO GROWTH AFTER 5 DAYS INCUBATION 02/23/19 11:50 Blood - Peripheral Venous Blood Culture - Final NO GROWTH AFTER 5 DAYS INCUBATION 02/21/19 13:16 Blood - Peripheral Venous Blood Culture - Final Proteus Mirabilis Prevotella Melaninogenica 02/21/19 16:30 Foot - Left Heel Gram Stain - Final 02/21/19 16:30 Foot - Left Heel Wound Culture - Final Escherichia Coli Esbl Oral And Maxillofacial Surgery Resident Morganella Morganii 02/21/19 15:40 Blood - Peripheral Venous Blood Culture - Final Proteus Mirabilis 02/21/19 14:50 Urine - Urine - Catheterized Urine Culture - Final NO GROWTH OBTAINED a/p new fever, hypotension, respiratory failure reculture- blood sputum broaden antibiotics to include esbl GNR and staph polymicrobial gram negative sepsis-proteus and prevotella suspected secondary to gangrenous legs esrd/hd overall prognosis is poor still trying to reach family ethics committee involved chart reviewed over 35 minutes spent in the care of this critically ill ICU patient will d/w ICU team and hospitalist service overall prognosis grim Problem List - Problems (1) Gram negative sepsis Code(s): A41.50 - GRAM-NEGATIVE SEPSIS, UNSPECIFIED (2) Gangrene of both feet Code(s): I96 - GANGRENE, NOT ELSEWHERE CLASSIFIED (3) ESRD (end stage renal disease) on dialysis Code(s): N18.6 - END STAGE RENAL DISEASE; Z99.2 - DEPENDENCE ON RENAL DIALYSIS (4) MRSA (methicillin resistant 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 coli carrier Code(s): Z22.39 - CARRIER OF OTHER SPECIFIED BACTERIAL DISEASES (6) VRE (vancomycin-resistant Enterococci) Code(s): A49.1 - STREPTOCOCCAL INFECTION, UNSPECIFIED SITE; Z16.21 - RESISTANCE TO VANCOMYCIN
--- NOTE | 2019-03-11 09:42 | PN ---
Progress Note, Physician History of Present Illness: Pt seen and examined at bedside. He is now intubated. He is lethargic. - Current Medication List Current Medications: Active Medications Acetaminophen (Ofirmev Injection -) 1,000 mg IVPB Q6H PRN PRN Reason: FEVER Last Admin: 03/11/19 04:36 Dose: 1,000 mg Allopurinol (Zyloprim -) 100 mg PO DAILY [facility]ANTELL Last Admin: 03/10/19 10:26 Dose: 100 mg Amino Acids (Prosource No Carb Liquid Pkt) 30 ml PO TID CHANTELL Last Admin: 03/11/19 06:58 Dose: 30 ml Apixaban (Eliquis -) 2.5 mg PO BID [facility]ANTELL Last Admin: 03/10/19 21:41 Dose: 2.5 mg Atorvastatin Calcium (Lipitor -) 20 mg PO HS [facility]ANTELL Last Admin: 03/10/19 21:41 Dose: 20 mg Collagenase (Santyl -) 1 applic TP DAILY CHANTELL; Protocol Last Admin: 03/10/19 10:26 Dose: 1 applic Escitalopram Oxalate (Lexapro -) 10 mg PO DAILY [facility]ANTELL Last Admin: 03/10/19 10:26 Dose: 10 mg Fentanyl 500 mcg/ Dextrose 100 mls @ 1 mls/hr IVPB TITR [facility]ANTELL Last Titration: 03/11/19 06:56 Dose: 25 mcg/hr, 5 mls/hr Norepinephrine Bitartrate 8, (000 mcg/ Dextrose) 500 mls @ 18.75 mls/hr IV ASDIR CHANTELL; Protocol Last Titration: 03/11/19 07:00 Dose: 24 mcg/min, 90 mls/hr Vasopressin 50 units/ Sodium (Chloride) 100 mls @ 4 mls/hr IVPB ASDIR [facility]ANTELL; Protocol Last Titration: 03/11/19 06:54 Dose: 4 units/hr, 8 mls/hr Meropenem 500 mg/ Dextrose 100 mls @ 200 mls/hr IVPB DAILY [facility] Vancomycin HCl (Vancomycin (Pre-Docked)) 1,000 mg in 250 mls @ 166.667 mls/hr IVPB ONCE ONE; Protocol Stop: 03/11/19 11:14 Insulin Aspart (Novolog Vial Sliding Scale -) 1 vial SQ BIDAC [facility]; Protocol Last Admin: 03/11/19 06:53 Dose: Not Given Lactobacillus Acidophilus (Bacid -) 1 tab PO DAILY [facility] Last Admin: 03/10/19 10:26 Dose: 1 tab Midodrine (Proamatine -) 10 mg PO TID-MID [facility] Last Admin: 03/10/19 18:08 Dose: 10 mg Morphine Sulfate (Morphine Sulfate) 2 mg IVPUSH Q4H PRN PRN Reason: PAIN LEVEL 6-10 Last Admin: 03/10/19 14:40 Dose: 2 mg Multivitamins/Minerals/Vitamin C (Tab-A-Vit -) 1 tab PO DAILY [facility] Last Admin: 03/10/19 10:26 Dose: 1 tab Pantoprazole Sodium (Protonix Iv) 40 mg IVPUSH DAILY [facility] Last Admin: 03/10/19 10:26 Dose: 40 mg Tamsulosin HCl (Flomax -) 0.4 mg PO HS [facility] Last Admin: 03/10/19 21:41 Dose: 0.4 mg - Objective Vital Signs: Vital Signs Temperature 99 F 03/11/19 07:00 Pulse Rate 99 H 03/11/19 09:00 Respiratory Rate 24 H 03/11/19 09:00 Blood Pressure 102/56 L 03/11/19 09:00 O2 Sat by Pulse Oximetry (%) 100 03/11/19 09:00 Constitutional: Yes: Calm Eyes: Yes: Conjunctiva Clear HENT: Yes: Atraumatic Cardiovascular: Yes: S1, S2 Respiratory: Yes: Mechanically Ventilated Gastrointestinal: Yes: Soft Genitourinary: Yes: Incontinence Musculoskeletal: Yes: Muscle Weakness Edema: No Wound/Incision: Yes: Other (odor from wounds) Neurological: Yes: Lethargy Labs: CBC, BMP 03/11/19 05:30 03/11/19 05:30 INR, PTT INR 1.44 (0.83-1.09) H 02/22/19 05:40 Problem List - Problems (1) ESRD (end stage renal disease) on dialysis Code(s): N18.6 - END STAGE RENAL DISEASE; Z99.2 - DEPENDENCE ON RENAL DIALYSIS Assessment/Plan Current Medications Generic Name Dose Route Start Last Admin Trade Name Freq PRN Reason Stop Dose Admin Acetaminophen 1,000 mg 03/11/19 04:18 03/11/19 04:36 Ofirmev Injection - IVPB 1,000 mg Q6H PRN Administration FEVER Allopurinol 100 mg 02/22/19 10:00 03/10/19 10:26 Zyloprim - PO 100 mg DAILY CHANTELL Administration Amino Acids 30 ml 02/21/19 22:00 03/11/19 06:58 Prosource No Carb Liquid Pkt PO 30 ml TID CHANTELL Administration Apixaban 2.5 mg 02/21/19 22:00 03/10/19 21:41 Eliquis - PO 2.5 mg BID CHANTELL Administration Atorvastatin Calcium 20 mg 02/21/19 22:00 03/10/19 21:41 Lipitor - PO 20 mg HS CHANTELL Administration Collagenase 1 applic 02/22/19 10:00 03/10/19 10:26 Santyl - TP 1 applic DAILY CHANTELL Administration Protocol Escitalopram Oxalate 10 mg 02/22/19 10:00 03/10/19 10:26 Lexapro - PO 10 mg DAILY CHANTELL Administration Fentanyl 500 mcg/ Dextrose 100 mls @ 1 mls/hr 03/11/19 00:45 03/11/19 06:56 IVPB 25 mcg/hr TITR CHANTELL 5 mls/hr Titration 5 MCG/HR Norepinephrine Bitartrate 8, 500 mls @ 18.75 mls/hr 03/11/19 05:58 03/11/19 07:00 000 mcg/ Dextrose IV 24 mcg/min ASDIR CHANTELL 90 mls/hr Titration Protocol 5 MCG/MIN Vasopressin 50 units/ Sodium 100 mls @ 4 mls/hr 03/11/19 06:30 03/11/19 06:54 Chloride IVPB 4 units/hr ASDIR CHANTELL 8 mls/hr Titration Protocol 2 UNITS/HR Meropenem 500 mg/ Dextrose 100 mls @ 200 mls/hr 03/11/19 10:00 IVPB DAILY [facility]ANTELL Vancomycin HCl 1,000 mg in 250 mls @ 166.667 mls/hr 03/11/19 09:45 Vancomycin (Pre-Docked) IVPB 03/11/19 11:14 ONCE ONE Protocol Insulin Aspart 1 vial 02/26/19 10:00 03/11/19 06:53 Novolog Vial Sliding Scale - SQ Not Given BIDAC CHANTELL Protocol Lactobacillus Acidophilus 1 tab 02/22/19 10:00 03/10/19 10:26 Bacid - PO 1 tab DAILY CHANTELL Administration Midodrine 10 mg 03/02/19 14:00 03/10/19 18:08 Proamatine - PO 10 mg TID-MID CHANTELL Administration Morphine Sulfate 2 mg 02/28/19 22:48 03/10/19 14:40 Morphine Sulfate IVPUSH 2 mg Q4H PRN Administration PAIN LEVEL 6-10 Multivitamins/Minerals/Vitamin C 1 tab 02/22/19 10:00 03/10/19 10:26 Tab-A-Vit - PO 1 tab DAILY CHANTELL Administration Pantoprazole Sodium 40 mg 03/05/19 12:00 03/10/19 10:26 Protonix Iv IVPUSH 40 mg DAILY CHANTELL Administration Tamsulosin HCl 0.4 mg 02/21/19 22:00 03/10/19 21:41 Flomax - PO 0.4 mg HS CHANTELL Administration Impression 1. ESRD 2. gangrene 3. DM 4. hyperlipidemia 5. HTN 6. gout 7. proteinuria 8. hypotension 9. sepsis 10. resp failure Plan - HD tomorrow - pt doing poorly - vent support - abx per ID - nepro for feeds
[2019-03-11] MEDS: PANTOPRAZOLE SODIUM 40 MG VIAL IVPUSH SCH (09:43)
[2019-03-11] MEDS: ESCITALOPRAM OXALATE 10 MG TABLET (FP) PO SCH (09:43)
[2019-03-11] MEDS: APIXABAN 2.5 MG TABLET PO SCH ×2 (09:43→21:01)
[2019-03-11] MEDS: ALLOPURINOL 100 MG TABLET (FP) PO SCH (09:43)
[2019-03-11] MEDS: MULTIVITAMINS (DAILY MVI) TABLET (FP) PO SCH (09:43)
[2019-03-11] MEDS: LACTOBACILLUS ACIDOPHILUS 1 TABLET PO SCH (09:43)
[2019-03-11] MEDS: COLLAGENASE CLOSTRIDIUM HIST. 30 GRAMS TUBE TP SCH (09:43)
[2019-03-11] MEDS: MIDODRINE HCL 5 MG TABLET PO SCH ×3 (09:43→17:19)
[2019-03-11] MEDS ORDERED: VANCOMYCIN 1 GRAM (PRE-DOCKED) 1,000 MG/250 ML BAG IVPB ONE (09:45)
[2019-03-11] MEDS ORDERED: PT OWN MED DRAWER 7, Y5N ONE (11:05)
[2019-03-11] MEDS: MEROPENEM 500 MG in DEXTROSE 5%-WATER 100 ML IVPB SCH (11:07)
[2019-03-11] MEDS: HYDROCORTISONE SOD SUCCINATE 100 MG/2 ML VIAL IVPB SCH ×2 (11:14→17:20)
--- NOTE | 2019-03-11 11:24 | PN ---
Teaching Attending Note Name of Resident: Mathew Adorno ATTENDING PHYSICIAN STATEMENT I saw and evaluated the patient. I reviewed the resident's note and discussed the case with the resident. I agree with the resident's findings and plan as documented. SUBJECTIVE: Events over night noted for acute resp failure, with resultant intubation and sedation OBJECTIVE: Intubated sedated, looks comfortable CV: RRR, no MRG Lungs: clear anteriorly. Abd: soft, more distended compared to yesterday, NL BS sacral area and leg wounds wee not examined today ASSESSMENT AND PLAN: 73 y/o man with h/o dementia, CVA, DM, COPD, ESRD, gout, HTN, HLP, recent admission 01/31-02/19 during which he was treated for sepsis due to infected b/l feet ulcers/gangrene. He was sent form NH due to poor po intake, and non healing wounds 1- Acute hypoxic resp failure 2- Septic shock /22 gangrene and infeciton in LE wounds 3- Infected sacral decub and scrotal ulcer 4- Proteus bacteremia ,polymicrobial wound 5- ESRD 6- DM 7- hypophosphatemia 8- anemia plan: - Abx changed to meropenem - follow blood cx done last night - cont vent management and sedation - HD per schedule - monitor and replete electrolytes - SSI Poor prognosis . Ethics meeting tomorrow ASSESSMENT AND PLAN:
--- NOTE | 2019-03-11 11:43 | PN ---
Teaching Attending Note Name of Resident: Gualberto Eagle ATTENDING PHYSICIAN STATEMENT I saw and evaluated the patient. I reviewed the resident's note and discussed the case with the resident. I agree with the resident's findings and plan as documented. SUBJECTIVE: Patient seen and examined in the ICU. Significant clinical deterioration. Now intubated and sedated. AC mode of vent, 50% FiO2. NE @ 24 mcq and Vasopressin @ 4 units per hour for hemodynamic support. Have been unable to contact family despite staff making multiple attempts to contact. OBJECTIVE: Intake & Output 03/08/19 03/09/19 03/10/19 03/11/19 23:59 23:59 23:59 23:59 Intake Total 1774 1512 1933 2351.8 Output Total 0 0 Balance 1774 1512 1933 2351.8 Weight 148 lb 1.6 oz 338 lb 6.553 oz 156 lb 11.979 oz 162 lb 14.746 oz Last Vital Signs Temp Pulse Resp BP Pulse Ox 99.1 F 97 H 28 H 112/57 L 100 03/11/19 09:00 03/11/19 11:15 03/11/19 11:00 03/11/19 11:00 03/11/19 11:15 Active Medications Acetaminophen (Ofirmev Injection -) 1,000 mg IVPB Q6H PRN PRN Reason: FEVER Last Admin: 03/11/19 04:36 Dose: 1,000 mg Allopurinol (Zyloprim -) 100 mg PO DAILY [facility] Last Admin: 03/11/19 09:43 Dose: 100 mg Amino Acids (Prosource No Carb Liquid Pkt) 30 ml PO TID CHANTELL Last Admin: 03/11/19 06:58 Dose: 30 ml Apixaban (Eliquis -) 2.5 mg PO BID CHANTELL Last Admin: 03/11/19 09:43 Dose: 2.5 mg Atorvastatin Calcium (Lipitor -) 20 mg PO HS CHANTELL Last Admin: 03/10/19 21:41 Dose: 20 mg Collagenase (Santyl -) 1 applic TP DAILY [facility]TE[facility]; Protocol Last Admin: 03/11/19 09:43 Dose: 1 applic Escitalopram Oxalate (Lexapro -) 10 mg PO DAILY [facility] Last Admin: 03/11/19 09:43 Dose: 10 mg Hydrocortisone Sodium Succinate (Solu-Cortef -) 100 mg IVPB Q8H-IV CHANTELL Last Admin: 03/11/19 11:14 Dose: 100 mg Fentanyl 500 mcg/ Dextrose 100 mls @ 1 mls/hr IVPB TITR CHANTELL Last Titration: 03/11/19 06:56 Dose: 25 mcg/hr, 5 mls/hr Norepinephrine Bitartrate 8, (000 mcg/ Dextrose) 500 mls @ 18.75 mls/hr IV ASDIR CHANTELL; Protocol Last Titration: 03/11/19 07:00 Dose: 24 mcg/min, 90 mls/hr Vasopressin 50 units/ Sodium (Chloride) 100 mls @ 4 mls/hr IVPB ASDIR CHANTELL; Protocol Last Titration: 03/11/19 08:40 Dose: 5 units/hr, 10 mls/hr Meropenem 500 mg/ Dextrose 100 mls @ 200 mls/hr IVPB DAILY [facility] Last Admin: 03/11/19 11:07 Dose: 200 mls/hr Insulin Aspart (Novolog Vial Sliding Scale -) 1 vial SQ BIDAC [facility]; Protocol Last Admin: 03/11/19 06:53 Dose: Not Given Lactobacillus Acidophilus (Bacid -) 1 tab PO DAILY [facility]TE[facility] Last Admin: 03/11/19 09:43 Dose: 1 tab Midodrine (Proamatine -) 10 mg PO TID-MID CH[facility]TELL Last Admin: 03/11/19 09:43 Dose: 10 mg Morphine Sulfate (Morphine Sulfate) 2 mg IVPUSH Q4H PRN PRN Reason: PAIN LEVEL 6-10 Last Admin: 03/10/19 14:40 Dose: 2 mg Multivitamins/Minerals/Vitamin C (Tab-A-Vit -) 1 tab PO DAILY [facility]TE[facility] Last Admin: 03/11/19 09:43 Dose: 1 tab Pantoprazole Sodium (Protonix Iv) 40 mg IVPUSH DAILY [facility]TE[facility] Last Admin: 03/11/19 09:43 Dose: 40 mg Tamsulosin HCl (Flomax -) 0.4 mg PO HS [facility]ANTELL Last Admin: 03/10/19 21:41 Dose: 0.4 mg Gen: Intubated and sedated Heart: RRR Lung: decreased breath sound at the bases Abd: soft, nontender Ext: wrapped, malodorous HALF SECTION IRONER: sedated Laboratory Results - last 24 hr 03/10/19 03/10/19 03/10/19 17:37 20:25 21:52 WBC RBC Hgb Hct MCV MCH MCHC RDW Plt Count MPV Absolute Neuts (auto) Neutrophils % Lymphocytes % Monocytes % Eosinophils % Basophils % Nucleated RBC % Anticoagulation Therapy Puncture Site ABG pH ABG pCO2 at Pt Temp ABG pO2 at Pt Temp ABG HCO3 ABG O2 Sat (Measured) ABG O2 Content ABG Base Excess Johan Test O2 Delivery Device Oxygen Flow Rate Vent Mode Vent Rate Mechanical Rate PEEP Pressure Support Vent Sodium Potassium 3.4 L Chloride Carbon Dioxide Anion Gap BUN Creatinine Est GFR (CKD-EPI)AfAm Est GFR (CKD-EPI)NonAf POC Glucometer 89 88 Random Glucose Calcium Phosphorus Magnesium 1.8 03/11/19 03/11/19 03/11/19 05:30 05:30 06:30 WBC 9.7 RBC 2.58 L Hgb 7.8 L Hct 24.8 L MCV 96.4 H MCH 30.2 MCHC 31.3 L RDW 20.4 H Plt Count 210 MPV 8.9 Absolute Neuts (auto) 7.0 Neutrophils % 72.0 Lymphocytes % 18.1 Monocytes % 7.6 Eosinophils % 0.9 Basophils % 1.4 Nucleated RBC % 0 Anticoagulation Therapy No Result Required. Puncture Site Left radial ABG pH 7.43 ABG pCO2 at Pt Temp 32.4 L ABG pO2 at Pt Temp 86.9 ABG HCO3 21.2 L ABG O2 Sat (Measured) 97.2 ABG O2 Content 10.2 L ABG Base Excess -2.2 L Johan Test Positive O2 Delivery Device Mech vent Oxygen Flow Rate 50% Vent Mode A/c Vent Rate 14 Mechanical Rate Yes PEEP 5.0 Pressure Support Vent 450 Sodium 137 Potassium 3.6 Chloride 104 Carbon Dioxide 23 Anion Gap 10 BUN 23.2 H Creatinine 2.6 H Est GFR (CKD-EPI)AfAm 26.95 Est GFR (CKD-EPI)NonAf 23.25 POC Glucometer Random Glucose 94 Calcium 7.2 L Phosphorus 1.9 L Magnesium 03/11/19 06:51 WBC RBC Hgb Hct MCV MCH MCHC RDW Plt Count MPV Absolute Neuts (auto) Neutrophils % Lymphocytes % Monocytes % Eosinophils % Basophils % Nucleated RBC % Anticoagulation Therapy Puncture Site ABG pH ABG pCO2 at Pt Temp ABG pO2 at Pt Temp ABG HCO3 ABG O2 Sat (Measured) ABG O2 Content ABG Base Excess Johan Test O2 Delivery Device Oxygen Flow Rate Vent Mode Vent Rate Mechanical Rate PEEP Pressure Support Vent Sodium Potassium Chloride Carbon Dioxide Anion Gap BUN Creatinine Est GFR (CKD-EPI)AfAm Est GFR (CKD-EPI)NonAf POC Glucometer 81 Random Glucose Calcium Phosphorus Magnesium ASSESSMENT AND PLAN: Acute Respiratory Failure Septic Shock Bilateral Feet Gangrene Infected Decubitus Ulcers Gram Negative Bacteremia Septic Shock ESRD on HD DM HTN Hyperlipidemia h/o CVA - Staff continues to make all efforts to reach NOK - continue antibiotics per ID - continue midodrine - Pressors to maintain MAP >65 - monitor H/H - local wound care - HD per renal - aspiration precautions - DVT prophylaxis - Given overall poor condition, current medical condition, and overall poor long term care social worker outcome, it would be appropriate for conservative measures and comfort care Dr Palmer Critical care time spent in reviewing chart, evaluating patient and formulating plan 35 min
[2019-03-11 11:52] LABS: ANISOCYTOSIS 2+; MACROCYTOSIS 2+; PLATELET ESTIMATE NORMAL; TEAR DROP CELLS 1+
[2019-03-11] MEDS: ATORVASTATIN CA 20 MG TABLET (FP) PO SCH (21:01)
[2019-03-11] MEDS: TAMSULOSIN HCL 0.4 MG CAP PO SCH (21:01)
--- NOTE | 2019-03-11 22:06 | PN ---
Physical Exam: SUBJECTIVE: Patient seen and examined at bedside Overnight pt noted to have aspirated tube feeds leading to agonal breathing and required intubation. Pt currently on vent Pt also required Levo 30 mcq, Vasopressin 5 mcq and Fentanyl 24 OBJECTIVE: Vital Signs Period Temp Pulse Resp BP Sys/Zamorano Pulse Ox Last 24 Hr 99 F-100.9 F 91-125 14-31 65-138/36-61 94-112 GENERAL: The patient is awake, alert, and fully oriented, in no acute distress. HEAD: Normal with no signs of trauma. EYES: PERRL, extraocular movements intact, sclera anicteric, conjunctiva clear. No ptosis. ENT: Ears normal, nares patent, oropharynx clear without exudates, moist mucous membranes. NECK: Trachea midline, full range of motion, supple. LUNGS: Breath sounds equal, clear to auscultation bilaterally, no wheezes, no crackles, no accessory muscle use. HEART: Regular rate and rhythm, S1, S2 without murmur, rub or gallop. ABDOMEN: Soft, nontender, nondistended, normoactive bowel sounds, no guarding, no rebound, no hepatosplenomegaly, no masses. EXTREMITIES: 2+ pulses, warm, well-perfused, no edema. NEUROLOGICAL: Cranial nerves II through XII grossly intact. Normal speech, gait not observed. PSYCH: Normal mood, normal affect. SKIN: Warm, dry, normal turgor, no rashes or lesions noted Laboratory Results - last 24 hr 03/11/19 03/11/19 03/11/19 05:30 05:30 06:30 WBC 9.7 RBC 2.58 L Hgb 7.8 L Hct 24.8 L MCV 96.4 H MCH 30.2 MCHC 31.3 L RDW 20.4 H Plt Count 210 MPV 8.9 Absolute Neuts (auto) 7.0 Neutrophils % 72.0 Neutrophils % (Manual) 53.6 D Band Neutrophils % 9.1 Lymphocytes % 18.1 Lymphocytes % (Manual) 13.1 Monocytes % 7.6 Monocytes % (Manual) 6 Eosinophils % 0.9 Eosinophils % (Manual) 1.0 D Basophils % 1.4 Basophils % (Manual) 2.0 D Myelocytes % (Man) 0 Promyelocytes % (Man) 0 Blast Cells % (Manual) 0 Nucleated RBC % 0 Metamyelocytes 2 D Hypochromia 0 Platelet Estimate Normal Platelet Comment Present Polychromasia 1+ Poikilocytosis 1+ Anisocytosis 2+ Microcytosis 1+ Macrocytosis 2+ Spherocytes 1+ Tear Drop Cells 1+ Anticoagulation Therapy No Result Required. Puncture Site Left radial ABG pH 7.43 ABG pCO2 at Pt Temp 32.4 L ABG pO2 at Pt Temp 86.9 ABG HCO3 21.2 L ABG O2 Sat (Measured) 97.2 ABG O2 Content 10.2 L ABG Base Excess -2.2 L Johan Test Positive O2 Delivery Device Mech vent Oxygen Flow Rate 50% Vent Mode A/c Vent Rate 14 Mechanical Rate Yes PEEP 5.0 Pressure Support Vent 450 Sodium 137 Potassium 3.6 Chloride 104 Carbon Dioxide 23 Anion Gap 10 BUN 23.2 H Creatinine 2.6 H Est GFR (CKD-EPI)AfAm 26.95 Est GFR (CKD-EPI)NonAf 23.25 POC Glucometer Random Glucose 94 Calcium 7.2 L Phosphorus 1.9 L 03/11/19 03/11/19 06:51 17:16 WBC RBC Hgb Hct MCV MCH MCHC RDW Plt Count MPV Absolute Neuts (auto) Neutrophils % Neutrophils % (Manual) Band Neutrophils % Lymphocytes % Lymphocytes % (Manual) Monocytes % Monocytes % (Manual) Eosinophils % Eosinophils % (Manual) Basophils % Basophils % (Manual) Myelocytes % (Man) Promyelocytes % (Man) Blast Cells % (Manual) Nucleated RBC % Metamyelocytes Hypochromia Platelet Estimate Platelet Comment Polychromasia Poikilocytosis Anisocytosis Microcytosis Macrocytosis Spherocytes Tear Drop Cells Anticoagulation Therapy Puncture Site ABG pH ABG pCO2 at Pt Temp ABG pO2 at Pt Temp ABG HCO3 ABG O2 Sat (Measured) ABG O2 Content ABG Base Excess Johan Test O2 Delivery Device Oxygen Flow Rate Vent Mode Vent Rate Mechanical Rate PEEP Pressure Support Vent Sodium Potassium Chloride Carbon Dioxide Anion Gap BUN Creatinine Est GFR (CKD-EPI)AfAm Est GFR (CKD-EPI)NonAf POC Glucometer 81 100 Random Glucose Calcium Phosphorus Active Medications Generic Name Dose Route Start Last Admin Trade Name Freq PRN Reason Stop Dose Admin Acetaminophen 1,000 mg 03/11/19 04:18 03/11/19 20:51 Ofirmev Injection - IVPB 1,000 mg Q6H PRN Administration FEVER Allopurinol 100 mg 02/22/19 10:00 03/11/19 09:43 Zyloprim - PO 100 mg DAILY CHANTELL Administration Amino Acids 30 ml 02/21/19 22:00 03/11/19 21:01 Prosource No Carb Liquid Pkt PO 30 ml TID CHANTELL Administration Apixaban 2.5 mg 02/21/19 22:00 03/11/19 21:01 Eliquis - PO 2.5 mg BID CHANTELL Administration Atorvastatin Calcium 20 mg 02/21/19 22:00 03/11/19 21:01 Lipitor - PO 20 mg HS CHANTELL Administration Collagenase 1 applic 02/22/19 10:00 03/11/19 09:43 Santyl - TP 1 applic DAILY CHANTELL Administration Protocol Escitalopram Oxalate 10 mg 02/22/19 10:00 03/11/19 09:43 Lexapro - PO 10 mg DAILY CHANTELL Administration Hydrocortisone Sodium Succinate 100 mg 03/11/19 11:00 03/11/19 17:20 Solu-Cortef - IVPB 100 mg Q8H-IV CHANTELL Administration Fentanyl 500 mcg/ Dextrose 100 mls @ 1 mls/hr 03/11/19 00:45 03/11/19 13:34 IVPB 25 mcg/hr TITR CHANTELL 5 mls/hr Administration 5 MCG/HR Norepinephrine Bitartrate 8, 500 mls @ 18.75 mls/hr 03/11/19 05:58 03/11/19 18:58 000 mcg/ Dextrose IV 30 mcg/min ASDIR CHANTELL 112.5 mls/hr Administration Protocol 5 MCG/MIN Vasopressin 50 units/ Sodium 100 mls @ 4 mls/hr 03/11/19 06:30 03/11/19 17:40 Chloride IVPB 6 units/hr ASDIR CHANTELL 12 mls/hr Titration Protocol 2 UNITS/HR Meropenem 500 mg/ Dextrose 100 mls @ 200 mls/hr 03/11/19 10:00 03/11/19 11:07 IVPB 200 mls/hr DAILY CHANTELL Administration Insulin Aspart 1 vial 02/26/19 10:00 03/11/19 17:37 Novolog Vial Sliding Scale - SQ Not Given BIDAC CHANTELL Protocol Lactobacillus Acidophilus 1 tab 02/22/19 10:00 03/11/19 09:43 Bacid - PO 1 tab DAILY CHANTELL Administration Midodrine 10 mg 03/02/19 14:00 03/11/19 17:19 Proamatine - PO 10 mg TID-MID CHANTELL Administration Morphine Sulfate 2 mg 02/28/19 22:48 03/10/19 14:40 Morphine Sulfate IVPUSH 2 mg Q4H PRN Administration PAIN LEVEL 6-10 Multivitamins/Minerals/Vitamin C 1 tab 02/22/19 10:00 03/11/19 09:43 Tab-A-Vit - PO 1 tab DAILY CHANTELL Administration Pantoprazole Sodium 40 mg 03/05/19 12:00 03/11/19 09:43 Protonix Iv IVPUSH 40 mg DAILY CHANTELL Administration Tamsulosin HCl 0.4 mg 02/21/19 22:00 03/11/19 21:01 Flomax - PO 0.4 mg HS CHANTELL Administration ASSESSMENT/PLAN: Call placed to Daughter, no answer, voicemail left stating poor prognosis and recent decline in pts health. Phone number left on answering machine, no return call received. Pts Brother, Koffi Silva contacted, states he will come to the hospital today and is willing to meet with ethics/case management Pending response from ethics/case management with regards to direction on pts current options on for goals of care. #septic shock 2/2 DM gangrenous B/L feet infx, Infected sacral decub and scrotal ulcer, and GN bacteremia (proteus, prevotella) - requiring ICU and pressors, +Leukocytosis. Now w/ hypoxic respiratory failure possibly 2/2 developing aspiration PNA (aspirated over the weekend) requiring intubation/ sedation. CXR 03/11 shows questionable infiltrate L base -old cx with E coli, ESBL, MRSA, and VRE. -contact isolation for MDRO -s/p Vanc and Zosyn in the ED, Gentamicin x1, Meropenem x2 in ICU -Bcx 02/21/19 growing GN cher - proteus and prevotella -ucx neg -wound cx E coli, morganella -Bcx 02/23/19 neg -f/u sputum cx, bcx 03/11/19 -ID consulted, Rangel -lactic acid resolved -palliative care consulted -switch CTX 2g/flagyl to Meropenem day #17 total abx, ID recs appreciated -Aspiration precautions. -Levophed 24, vasopressin 5 gtt, Titrate pressors to keep MAP>65 -fentanyl 25mcg for comfort and sedation -vascular surgery consulted, Dr harry, for wound care. amputation indicated, but family not amenable. cont GOC -per ID no vanc, cx show no MRSA for >48hr #ESRD on HD (MWF) -nephro consulted (Dr. Henriquez) -HD as per nephro ned held by nephro for low phos. #Acute on chronic anemia likely 2/2 ESRD -monitor H/H #Severe protein calorie malnutrition -albumin 1.1, prealbumin 3.5 -thin appearing, decreased muscle mass and fat -decreased overall PO intake -Encourage Magic cup, Ensure pudding for increased density of nutritional intake #COPD -keep SpO2>90% -Duonebs q6h PRN #Dm ISS BGM ACHS #H/o hypotension : c/w home midodrine monitor vitals # h/o afib c/w elequis 2.5 bid #FEN -Not on any standing fluids -replete prn -NGT on tube feeds #Prophylaxis -Eliquis 2.5mg BID -Protonix IV while on AC and pressors -bacid Visit type - Emergency Visit Emergency Visit: No - New Patient This patient is new to me today: No - Critical Care Critical Care patient: Yes Total Critical Care Time (in minutes): 36 Critical Care Statement: The care of this patient involved high complexity decision making to prevent further life threatening deterioration of the patient 's condition and/or to evaluate & treat vital organ system(s) failure or risk of failure.
[2019-03-12] MEDS: HYDROCORTISONE SOD SUCCINATE 100 MG/2 ML VIAL IVPB SCH ×3 (01:04→17:58)
[2019-03-12] MEDS: ACETAMINOPHEN 1000 MG/100 ML VIAL (NON FORMULARY) IVPB PRN (01:54)
[2019-03-12] MEDS ORDERED: LORazepam 2 MG/ML SDV VIAL IVPUSH ONE (03:55)
[2019-03-12] MEDS ORDERED: LORazepam 2 MG/ML SDV VIAL ONE (03:57)
[2019-03-12] MEDS ORDERED: levETIRAcetam 500 MG/5 ML INJECTION VIAL IVPB ONE (04:00)
--- NOTE | 2019-03-12 04:10 | PN ---
Progress Note (short form) - Note Progress Note: Upon re-evaluation pt now has a slow R-beating nystagmus. Pupils 3-4mm b/l with reactivity although sluggish to light. Seizure-like myoclonus subsided. ----- Called to bedside due to twitching noted on routine. Upon assessment pt with eye twitching R-carr gaze and notable hand and leg tonic-clonic movements. Pt noted to have vent asynchrony and unorganized diaphragmatic excursion. --Ordered 1mg Ativan which resulted in of seizure-like activity --Keppra load 1gm given pt will receive dialysis tomorrow, CrClearance would not play into dose --Likely pt has infarct however given pt's hemodynamic instability unable to get CT Head at this time
[2019-03-12] MEDS ORDERED: NOREPINEPHRINE BITARTRATE 4 MG/4 ML ML IV ONE (05:08)
[2019-03-12] MEDS: AMINO ACIDS/PROTEIN HYDROLYS 30 ML LIQUID.PKT PO SCH ×3 (05:40→21:52)
[2019-03-12 06:10] LABS: BASO % 0.3 % (0-2.0); HEMOGLOBIN 7.8 GM/dL (11.7-16.9); MCHC 30.3 g/dl (32.0-35.9); RBC 2.64 M/mm3 (4.00-5.60)
[2019-03-12 06:26] LABS: EOS % 1.6 % (0-4.5); HEMATOCRIT 25.7 % (35.4-49); LYMPH % 9.9 % (8-40); MCH 29.5 pg (25.7-33.7); MEAN CELL VOLUME 97.2 fl (80-96); MEAN PLT VOLUME 9.8 fl (7.5-11.1); MONO % 2.3 % (3.8-10.2); NEUT % 85.9 % (42.8-82.8); PLATELET COUNT 238 K/MM3 (134-434); RDW 19.7 % (11.9-15.9); WHITE BLOOD COUNT 12.7 K/mm3 (4.0-10.0)
--- NOTE | 2019-03-12 06:34 | PN ---
Physical Exam: SUBJECTIVE: Patient seen and examined in ICU. Overnight spiking feversand noted w/ seizure like activity which resolved s/p ativan 1mg, pt also loaded w/ keppra , see Dr Overton note for further details. Remains hypotensive on increasing doses of pressors x2 w/ stress steroids in septic shock. GOC/ethics meeting ongoing OBJECTIVE: Vital Signs Period Temp Pulse Resp BP Sys/Zamorano Pulse Ox Last 24 Hr 99 F-102.7 F 91-131 24-34 65-138/37-61 100-102 GENERAL: intubated sedated. thin appearing, decreased muscle mass and fat EARS, NOSE, THROAT: dry mucous membranes. LUNGS: CTAB HEART: irregularly irregular s1s2 normal ABDOMEN: Soft, NTND normoactive bowel sounds, ulcer present on sacrum unstagable with foul discharge, scrotum has ulcer no discharge MUSCULOSKELETAL: Normal range of motion at all joints. No bony deformities or tenderness. No CVA tenderness. UPPER EXTREMITIES: 2+ pulses, warm, well-perfused. LOWER EXTREMITIES: b/l wet gangrene with fouls smelling discharge SKIN: Warm, dry, Neuo: intubated sedated. no apparent gag reflex today, sluggish pupils, non responsive to pain or voice Laboratory Results - last 24 hr 03/11/19 03/11/19 03/11/19 05:30 05:30 06:30 Neutrophils % (Manual) 53.6 D Band Neutrophils % 9.1 Lymphocytes % (Manual) 13.1 Monocytes % (Manual) 6 Eosinophils % (Manual) 1.0 D Basophils % (Manual) 2.0 D Myelocytes % (Man) 0 Promyelocytes % (Man) 0 Blast Cells % (Manual) 0 Metamyelocytes 2 D Hypochromia 0 Platelet Estimate Normal Platelet Comment Present Polychromasia 1+ Poikilocytosis 1+ Anisocytosis 2+ Microcytosis 1+ Macrocytosis 2+ Spherocytes 1+ Tear Drop Cells 1+ Anticoagulation Therapy No Result Required. Puncture Site Left radial ABG pH 7.43 ABG pCO2 at Pt Temp 32.4 L ABG pO2 at Pt Temp 86.9 ABG HCO3 21.2 L ABG O2 Sat (Measured) 97.2 ABG O2 Content 10.2 L ABG Base Excess -2.2 L Johan Test Positive O2 Delivery Device Mech vent Oxygen Flow Rate 50% Vent Mode A/c Vent Rate 14 Mechanical Rate Yes PEEP 5.0 Pressure Support Vent 450 Sodium 137 Potassium 3.6 Chloride 104 Carbon Dioxide 23 Anion Gap 10 BUN 23.2 H Creatinine 2.6 H Est GFR (CKD-EPI)AfAm 26.95 Est GFR (CKD-EPI)NonAf 23.25 POC Glucometer Random Glucose 94 Calcium 7.2 L Phosphorus 1.9 L 03/11/19 03/11/19 06:51 17:16 Neutrophils % (Manual) Band Neutrophils % Lymphocytes % (Manual) Monocytes % (Manual) Eosinophils % (Manual) Basophils % (Manual) Myelocytes % (Man) Promyelocytes % (Man) Blast Cells % (Manual) Metamyelocytes Hypochromia Platelet Estimate Platelet Comment Polychromasia Poikilocytosis Anisocytosis Microcytosis Macrocytosis Spherocytes Tear Drop Cells Anticoagulation Therapy Puncture Site ABG pH ABG pCO2 at Pt Temp ABG pO2 at Pt Temp ABG HCO3 ABG O2 Sat (Measured) ABG O2 Content ABG Base Excess Johan Test O2 Delivery Device Oxygen Flow Rate Vent Mode Vent Rate Mechanical Rate PEEP Pressure Support Vent Sodium Potassium Chloride Carbon Dioxide Anion Gap BUN Creatinine Est GFR (CKD-EPI)AfAm Est GFR (CKD-EPI)NonAf POC Glucometer 81 100 Random Glucose Calcium Phosphorus Active Medications Generic Name Dose Route Start Last Admin Trade Name Jaq PRN Reason Stop Dose Admin Acetaminophen 1,000 mg 03/11/19 04:18 03/12/19 01:54 Ofirmev Injection - IVPB 1,000 mg Q6H PRN Administration FEVER Allopurinol 100 mg 02/22/19 10:00 03/11/19 09:43 Zyloprim - PO 100 mg DAILY CHANTELL Administration Amino Acids 30 ml 02/21/19 22:00 03/12/19 05:40 Prosource No Carb Liquid Pkt PO 30 ml TID CHANTELL Administration Apixaban 2.5 mg 02/21/19 22:00 03/11/19 21:01 Eliquis - PO 2.5 mg BID CHANTELL Administration Atorvastatin Calcium 20 mg 02/21/19 22:00 03/11/19 21:01 Lipitor - PO 20 mg HS CHANTELL Administration Collagenase 1 applic 02/22/19 10:00 03/11/19 09:43 Santyl - TP 1 applic DAILY CHANTELL Administration Protocol Escitalopram Oxalate 10 mg 02/22/19 10:00 03/11/19 09:43 Lexapro - PO 10 mg DAILY CHANTELL Administration Hydrocortisone Sodium Succinate 100 mg 03/11/19 11:00 03/12/19 01:04 Solu-Cortef - IVPB 100 mg Q8H-IV CHANTELL Administration Fentanyl 500 mcg/ Dextrose 100 mls @ 1 mls/hr 03/11/19 00:45 03/11/19 13:34 IVPB 25 mcg/hr TITR CHANTELL 5 mls/hr Administration 5 MCG/HR Norepinephrine Bitartrate 8, 500 mls @ 18.75 mls/hr 03/11/19 05:58 03/11/19 18:58 000 mcg/ Dextrose IV 30 mcg/min ASDIR CHANTELL 112.5 mls/hr Administration Protocol 5 MCG/MIN Vasopressin 50 units/ Sodium 100 mls @ 4 mls/hr 03/11/19 06:30 03/12/19 01:22 Chloride IVPB 6 units/hr ASDIR CHANTELL 12 mls/hr Titration Protocol 2 UNITS/HR Meropenem 500 mg/ Dextrose 100 mls @ 200 mls/hr 03/11/19 10:00 03/11/19 11:07 IVPB 200 mls/hr DAILY CHANTELL Administration Insulin Aspart 1 vial 02/26/19 10:00 03/11/19 17:37 Novolog Vial Sliding Scale - SQ Not Given BIDAC CHANTELL Protocol Lactobacillus Acidophilus 1 tab 02/22/19 10:00 03/11/19 09:43 Bacid - PO 1 tab DAILY CHANTELL Administration Midodrine 10 mg 03/02/19 14:00 03/11/19 17:19 Proamatine - PO 10 mg TID-MID CHANTELL Administration Multivitamins/Minerals/Vitamin C 1 tab 02/22/19 10:00 03/11/19 09:43 Tab-A-Vit - PO 1 tab DAILY CHANTELL Administration Pantoprazole Sodium 40 mg 03/05/19 12:00 03/11/19 09:43 Protonix Iv IVPUSH 40 mg DAILY CHANTELL Administration Tamsulosin HCl 0.4 mg 02/21/19 22:00 03/11/19 21:01 Flomax - PO 0.4 mg HS CHANTELL Administration ASSESSMENT/PLAN: 73 yo M PMH dementia, CVA, DM, COPD, ESRD, gout, HTN, HLP, recent admission 01/31- 5/28 during which he was treated for sepsis due to infected b/l feet ulcers/ gangrene. He was sent form NH due to poor po intake, and worsening of ulcers. Now in septic shock 2/2 DM gangrenous B/L feet infx, Infected sacral decub and scrotal ulcer, and GN bacteremia , requiring ICU and pressors #septic shock 2/2 DM gangrenous B/L feet infx, Infected sacral decub and scrotal ulcer, and GN bacteremia (proteus, prevotella) - requiring ICU and pressors, +Leukocytosis. Now w/ hypoxic respiratory failure possibly 2/2 developing aspiration PNA (aspirated over the weekend) requiring intubation/ sedation. CXR 03/11 shows questionable infiltrate L base -old cx with E coli, ESBL, MRSA, and VRE. -contact isolation for MDRO -s/p Vanc and Zosyn in the ED, Gentamicin x1, Meropenem x2 in ICU -Bcx 02/21/19 growing GN cher - proteus and prevotella -ucx neg -wound cx E coli, morganella -Bcx 02/23/19 neg -f/u sputum cx, bcx 03/11/19 -ID consulted, Rangel -lactic acid resolved -palliative care consulted -s/p CTX 2g/flagyl, c/w Meropenem day #18 total abx, ID recs appreciated -Aspiration precautions. -c/w Levophed, vasopressin, stress steroids. Titrate pressors to keep MAP>65 -fentanyl 25mcg for comfort and sedation -vascular surgery consulted, Dr harry, for wound care. amputation indicated, but family not amenable. cont GOC -per ID no vanc, cx show no MRSA for >48hr #Seizure-like myoclonus 03/12/19 - noted overnight. resolved w/ ativan 1mg and loaded w/ keppra. see Dr Overton note for further details #ESRD on HD (MWF) -nephro consulted (Dr. Henriquez) -HD as per nephro ned held by nephro for low phos. #Acute on chronic anemia likely 2/2 ESRD -monitor H/H #Severe protein calorie malnutrition -albumin 1.1, prealbumin 3.5 -thin appearing, decreased muscle mass and fat -decreased overall PO intake -Encourage Magic cup, Ensure pudding for increased density of nutritional intake #COPD -keep SpO2>90% -Duonebs q6h PRN #Dm ISS BGM ACHS #H/o hypotension : c/w home midodrine monitor vitals # h/o afib c/w elequis 2.5 bid #FEN -Not on any standing fluids -replete prn -NGT on tube feeds #Prophylaxis -Eliquis 2.5mg BID -Protonix IV while on AC and pressors -bacid #Disposition -full code -GOC/ethics consult placed, as we have attempted multiple times to contact daughter who has not been responsive and in the past has not been amenable to to allow for source control/amputation and standard of care. given patients inability to make decisions for himself and daughter unwillingness pt will likely cont to suffer w/o improvement and has spoor prognosis. multiple times various members of primary team and ICU team have tried contacting daughter and brother for GOC/ethics meeting. Resident Dr Milton was able to make contact w/ daughter but no meaningful discussion was able to take place, please see Dr Milton note for further detail. brother has been contacted and will be coming today for ethics/GOC meeting, although use may be limited since daughter will not be coming. This may constitute pt abandonment -given overall poor prognosis, conservative measures and comfort care may be appropriate -ICU monitoring Visit type - Emergency Visit Emergency Visit: Yes ED Registration Date: 02/21/19 Care time: The patient presented to the Emergency Department on the above date and was hospitalized for further evaluation of their emergent condition. - New Patient This patient is new to me today: Yes Date on this admission: 03/12/19 - Critical Care Critical Care patient: Yes Total Critical Care Time (in minutes): 40 Critical Care Statement: The care of this patient involved high complexity decision making to prevent further life threatening deterioration of the patient 's condition and/or to evaluate & treat vital organ system(s) failure or risk of failure.
[2019-03-12 07:02] LABS: BLOOD UREA NITROGEN 26.6 mg/dL (7-18); CALCIUM 7.2 mg/dL (8.5-10.1); CREATININE 2.9 mg/dL (0.55-1.3); MAGNESIUM 1.9 mg/dL (1.8-2.4); POTASSIUM 4.4 mmol/L (3.5-5.1)
[2019-03-12] MEDS: INSULIN SLIDING SCALE (NOVOLOG) 1 VIAL SQ SCH ×2 (07:17→15:38)
[2019-03-12] MEDS ORDERED: PT OWN MED DRAWER 7, Y5N ONE ×2 (07:59→17:24)
[2019-03-12] MEDS ORDERED: VASOPRESSIN 20 UNITS/ML VIAL IV ONE (08:50)
[2019-03-12] MEDS: PANTOPRAZOLE SODIUM 40 MG VIAL IVPUSH SCH (09:29)
[2019-03-12] MEDS: MEROPENEM 500 MG in DEXTROSE 5%-WATER 100 ML IVPB SCH (09:29)
[2019-03-12] MEDS: VASOPRESSIN 50 UNITS in SODIUM CHLORIDE 97.5 ML IVPB SCH ×3 (09:54→18:11)
[2019-03-12] MEDS: NOREPINEPHRINE BITARTRATE 8,000 MCG in DEXTROSE 5%-WATER - 492 ML IV SCH ×2 (09:57→15:00)
[2019-03-12] MEDS: COLLAGENASE CLOSTRIDIUM HIST. 30 GRAMS TUBE TP SCH (10:00)
--- NOTE | 2019-03-12 10:52 | PN ---
Progress Note, Physician History of Present Illness: Pt seen and examined at bedside. He remains in the ICU. He remains intubated. - Current Medication List Current Medications: Active Medications Acetaminophen (Ofirmev Injection -) 1,000 mg IVPB Q6H PRN PRN Reason: FEVER Last Admin: 03/12/19 01:54 Dose: 1,000 mg Allopurinol (Zyloprim -) 100 mg PO DAILY CHANTELL Last Admin: 03/11/19 09:43 Dose: 100 mg Amino Acids (Prosource No Carb Liquid Pkt) 30 ml PO TID CHANTELL Last Admin: 03/12/19 05:40 Dose: 30 ml Apixaban (Eliquis -) 2.5 mg PO BID CHANTELL Last Admin: 03/11/19 21:01 Dose: 2.5 mg Atorvastatin Calcium (Lipitor -) 20 mg PO HS CHANTELL Last Admin: 03/11/19 21:01 Dose: 20 mg Collagenase (Santyl -) 1 applic TP DAILY CHANTELL; Protocol Last Admin: 03/11/19 09:43 Dose: 1 applic Escitalopram Oxalate (Lexapro -) 10 mg PO DAILY CHANTELL Last Admin: 03/11/19 09:43 Dose: 10 mg Hydrocortisone Sodium Succinate (Solu-Cortef -) 100 mg IVPB Q8H-IV CHANTELL Last Admin: 03/12/19 09:29 Dose: 100 mg Fentanyl 500 mcg/ Dextrose 100 mls @ 1 mls/hr IVPB TITR CHANTELL Last Admin: 03/11/19 13:34 Dose: 25 mcg/hr, 5 mls/hr Norepinephrine Bitartrate 8, (000 mcg/ Dextrose) 500 mls @ 18.75 mls/hr IV ASDIR CHANTELL; Protocol Last Admin: 03/12/19 09:57 Dose: 30 mcg/min, 112.5 mls/hr Vasopressin 50 units/ Sodium (Chloride) 100 mls @ 4 mls/hr IVPB ASDIR CHANTELL; Protocol Last Admin: 03/12/19 09:54 Dose: 6 units/hr, 12 mls/hr Meropenem 500 mg/ Dextrose 100 mls @ 200 mls/hr IVPB DAILY CHANTELL Last Admin: 03/12/19 09:29 Dose: 200 mls/hr Insulin Aspart (Novolog Vial Sliding Scale -) 1 vial SQ BIDAC CHANTELL; Protocol Last Admin: 03/12/19 07:17 Dose: Not Given Lactobacillus Acidophilus (Bacid -) 1 tab PO DAILY [facility] Last Admin: 03/11/19 09:43 Dose: 1 tab Midodrine (Proamatine -) 10 mg PO TID-MID [facility] Last Admin: 03/11/19 17:19 Dose: 10 mg Multivitamins/Minerals/Vitamin C (Tab-A-Vit -) 1 tab PO DAILY [facility] Last Admin: 03/11/19 09:43 Dose: 1 tab Pantoprazole Sodium (Protonix Iv) 40 mg IVPUSH DAILY [facility] Last Admin: 03/12/19 09:29 Dose: 40 mg Tamsulosin HCl (Flomax -) 0.4 mg PO HS [facility] Last Admin: 03/11/19 21:01 Dose: 0.4 mg - Objective Vital Signs: Vital Signs Temperature 100.3 F H 03/12/19 07:00 Pulse Rate 88 03/12/19 10:00 Respiratory Rate 28 H 03/12/19 10:00 Blood Pressure 118/69 03/12/19 10:00 O2 Sat by Pulse Oximetry (%) 100 03/12/19 07:45 Constitutional: Yes: Calm Eyes: Yes: Conjunctiva Clear HENT: Yes: Atraumatic Cardiovascular: Yes: S1, S2 Respiratory: Yes: Mechanically Ventilated Gastrointestinal: Yes: Soft Genitourinary: Yes: Incontinence Musculoskeletal: Yes: Muscle Weakness Edema: No Wound/Incision: Yes: Other (odor from lower ext wounds) Labs: CBC, BMP 03/12/19 05:35 03/12/19 05:35 INR, PTT INR 1.44 (0.83-1.09) H 02/22/19 05:40 Problem List - Problems (1) ESRD (end stage renal disease) on dialysis Code(s): N18.6 - END STAGE RENAL DISEASE; Z99.2 - DEPENDENCE ON RENAL DIALYSIS Assessment/Plan Current Medications Generic Name Dose Route Start Last Admin Trade Name Freq PRN Reason Stop Dose Admin Acetaminophen 1,000 mg 03/11/19 04:18 03/12/19 01:54 Ofirmev Injection - IVPB 1,000 mg Q6H PRN Administration FEVER Allopurinol 100 mg 02/22/19 10:00 03/11/19 09:43 Zyloprim - PO 100 mg DAILY [facility] Administration Amino Acids 30 ml 02/21/19 22:00 03/12/19 05:40 Prosource No Carb Liquid Pkt PO 30 ml TID CHANTELL Administration Apixaban 2.5 mg 02/21/19 22:00 03/11/19 21:01 Eliquis - PO 2.5 mg BID CHANTELL Administration Atorvastatin Calcium 20 mg 02/21/19 22:00 03/11/19 21:01 Lipitor - PO 20 mg HS CHANTELL Administration Collagenase 1 applic 02/22/19 10:00 03/11/19 09:43 Santyl - TP 1 applic DAILY CHANTELL Administration Protocol Escitalopram Oxalate 10 mg 02/22/19 10:00 03/11/19 09:43 Lexapro - PO 10 mg DAILY CHANTELL Administration Hydrocortisone Sodium Succinate 100 mg 03/11/19 11:00 03/12/19 09:29 Solu-Cortef - IVPB 100 mg Q8H-IV CHANTELL Administration Fentanyl 500 mcg/ Dextrose 100 mls @ 1 mls/hr 03/11/19 00:45 03/11/19 13:34 IVPB 25 mcg/hr TITR CHANTELL 5 mls/hr Administration 5 MCG/HR Norepinephrine Bitartrate 8, 500 mls @ 18.75 mls/hr 03/11/19 05:58 03/12/19 09:57 000 mcg/ Dextrose IV 30 mcg/min ASDIR CHANTELL 112.5 mls/hr Administration Protocol 5 MCG/MIN Vasopressin 50 units/ Sodium 100 mls @ 4 mls/hr 03/11/19 06:30 03/12/19 09:54 Chloride IVPB 6 units/hr ASDIR CHANTELL 12 mls/hr Administration Protocol 2 UNITS/HR Meropenem 500 mg/ Dextrose 100 mls @ 200 mls/hr 03/11/19 10:00 03/12/19 09:29 IVPB 200 mls/hr DAILY CHANTELL Administration Insulin Aspart 1 vial 02/26/19 10:00 03/12/19 07:17 Novolog Vial Sliding Scale - SQ Not Given BIDAC CHANTELL Protocol Lactobacillus Acidophilus 1 tab 02/22/19 10:00 03/11/19 09:43 Bacid - PO 1 tab DAILY CHANTELL Administration Midodrine 10 mg 03/02/19 14:00 03/11/19 17:19 Proamatine - PO 10 mg TID-MID CHANTELL Administration Multivitamins/Minerals/Vitamin C 1 tab 02/22/19 10:00 03/11/19 09:43 Tab-A-Vit - PO 1 tab DAILY CHANTELL Administration Pantoprazole Sodium 40 mg 03/05/19 12:00 03/12/19 09:29 Protonix Iv IVPUSH 40 mg DAILY CHANTELL Administration Tamsulosin HCl 0.4 mg 02/21/19 22:00 03/11/19 21:01 Flomax - PO 0.4 mg HS CHANTELL Administration Impression 1. ESRD 2. gangrene 3. DM 4. hyperlipidemia 5. HTN 6. gout 7. proteinuria 8. hypotension 9. sepsis 10. resp failure Plan - pt for HD today - vent support - cont pressors, bp is improved - pt doing poorly - abx per ID - nepro for feeds
[2019-03-12] MEDS ORDERED: fentaNYL CITRATE 250 MCG/5 ML VIAL ONE (11:09)
[2019-03-12] MEDS: FENTANYL INJECTION 500 MCG in DEXTROSE 5%-WATER - 90 ML IVPB SCH (11:17)
--- NOTE | 2019-03-12 11:25 | PN ---
Teaching Attending Note Name of Resident: Gualberto Eagle ATTENDING PHYSICIAN STATEMENT I saw and evaluated the patient. I reviewed the resident's note and discussed the case with the resident. I agree with the resident's findings and plan as documented. SUBJECTIVE: Patient seen and examined in the ICU. Continued clinical deterioration. Remains intubated and sedated. AC mode of vent, 50% FiO2. NE @ 30 mcq and Vasopressin @ 6 units per hour for hemodynamic support. Still unable to contact the patient's daughter despite continued attempts to contact. OBJECTIVE: Intake & Output 03/09/19 03/10/19 03/11/19 03/12/19 23:59 23:59 23:59 23:59 Intake Total 1512 1933 4617.8 640 Output Total 0 0 Balance 1512 1933 4617.8 640 Weight 153 lb 8 oz 156 lb 11.979 oz 162 lb 14.746 oz 174 lb 4.8 oz Last Vital Signs Temp Pulse Resp BP Pulse Ox 98.1 F 88 28 H 118/69 100 03/12/19 11:00 03/12/19 10:00 03/12/19 10:00 03/12/19 10:00 03/12/19 07:45 Active Medications Acetaminophen (Ofirmev Injection -) 1,000 mg IVPB Q6H PRN PRN Reason: FEVER Last Admin: 03/12/19 01:54 Dose: 1,000 mg Albumin Human (Albumin Human 25%) 12.5 gm IVPB Q30M CHANTELL Stop: 03/12/19 13:01 Allopurinol (Zyloprim -) 100 mg PO DAILY [facility] Last Admin: 03/11/19 09:43 Dose: 100 mg Amino Acids (Prosource No Carb Liquid Pkt) 30 ml PO TID CHANTELL Last Admin: 03/12/19 05:40 Dose: 30 ml Apixaban (Eliquis -) 2.5 mg PO BID CHANTELL Last Admin: 03/11/19 21:01 Dose: 2.5 mg Atorvastatin Calcium (Lipitor -) 20 mg PO HS [facility] Last Admin: 03/11/19 21:01 Dose: 20 mg Collagenase (Santyl -) 1 applic TP DAILY [facility]; Protocol Last Admin: 03/11/19 09:43 Dose: 1 applic Epoetin Jose (Procrit -) 10,000 unit IVPUSH ONCE ONE Stop: 03/12/19 11:31 Escitalopram Oxalate (Lexapro -) 10 mg PO DAILY CHANTELL Last Admin: 03/11/19 09:43 Dose: 10 mg Hydrocortisone Sodium Succinate (Solu-Cortef -) 100 mg IVPB Q8H-IV CHANTELL Last Admin: 03/12/19 09:29 Dose: 100 mg Fentanyl 500 mcg/ Dextrose 100 mls @ 1 mls/hr IVPB TITR CHANTELL Last Admin: 03/12/19 11:17 Dose: 25 mcg/hr, 5 mls/hr Norepinephrine Bitartrate 8, (000 mcg/ Dextrose) 500 mls @ 18.75 mls/hr IV ASDIR CHANTELL; Protocol Last Admin: 03/12/19 09:57 Dose: 30 mcg/min, 112.5 mls/hr Vasopressin 50 units/ Sodium (Chloride) 100 mls @ 4 mls/hr IVPB ASDIR CHANTELL; Protocol Last Admin: 03/12/19 11:19 Dose: Not Given Meropenem 500 mg/ Dextrose 100 mls @ 200 mls/hr IVPB DAILY CHANTELL Last Admin: 03/12/19 09:29 Dose: 200 mls/hr Sodium Chloride (Normal Saline -) 250 mls @ 3,000 mls/hr IV PRN PRN PRN Reason: Hypotension during Dialysis Stop: 03/13/19 11:29 Insulin Aspart (Novolog Vial Sliding Scale -) 1 vial SQ BIDAC [facility]; Protocol Last Admin: 03/12/19 07:17 Dose: Not Given Lactobacillus Acidophilus (Bacid -) 1 tab PO DAILY CHANTELL Last Admin: 03/11/19 09:43 Dose: 1 tab Midodrine (Proamatine -) 10 mg PO TID-MID CHANTELL Last Admin: 03/11/19 17:19 Dose: 10 mg Multivitamins/Minerals/Vitamin C (Tab-A-Vit -) 1 tab PO DAILY [facility]ANTELL Last Admin: 03/11/19 09:43 Dose: 1 tab Pantoprazole Sodium (Protonix Iv) 40 mg IVPUSH DAILY CHANTELL Last Admin: 03/12/19 09:29 Dose: 40 mg Tamsulosin HCl (Flomax -) 0.4 mg PO HS CHANTELL Last Admin: 03/11/19 21:01 Dose: 0.4 mg Gen: Intubated and sedated Heart: RRR Lung: decreased breath sound at the bases Abd: soft, nontender Ext: wrapped, malodorous [employer]: sedated Laboratory Results - last 24 hr 03/11/19 03/11/19 03/12/19 05:30 17:16 05:35 WBC 12.7 H RBC 2.64 L Hgb 7.8 L Hct 25.7 L MCV 97.2 H MCH 29.5 MCHC 30.3 L RDW 19.7 H Plt Count 238 MPV 9.8 D Absolute Neuts (auto) 10.9 H Neutrophils % 85.9 H Neutrophils % (Manual) 53.6 D Band Neutrophils % 9.1 Lymphocytes % 9.9 D Lymphocytes % (Manual) 13.1 Monocytes % 2.3 L Monocytes % (Manual) 6 Eosinophils % 1.6 Eosinophils % (Manual) 1.0 D Basophils % 0.3 Basophils % (Manual) 2.0 D Myelocytes % (Man) 0 Promyelocytes % (Man) 0 Blast Cells % (Manual) 0 Nucleated RBC % 0 Metamyelocytes 2 D Hypochromia 0 Platelet Estimate Normal Platelet Comment Present Polychromasia 1+ Poikilocytosis 1+ Anisocytosis 2+ Microcytosis 1+ Macrocytosis 2+ Spherocytes 1+ Tear Drop Cells 1+ Sodium Potassium Chloride Carbon Dioxide Anion Gap BUN Creatinine Est GFR (CKD-EPI)AfAm Est GFR (CKD-EPI)NonAf POC Glucometer 100 Random Glucose Calcium Phosphorus Magnesium 03/12/19 05:35 WBC RBC Hgb Hct MCV MCH MCHC RDW Plt Count MPV Absolute Neuts (auto) Neutrophils % Neutrophils % (Manual) Band Neutrophils % Lymphocytes % Lymphocytes % (Manual) Monocytes % Monocytes % (Manual) Eosinophils % Eosinophils % (Manual) Basophils % Basophils % (Manual) Myelocytes % (Man) Promyelocytes % (Man) Blast Cells % (Manual) Nucleated RBC % Metamyelocytes Hypochromia Platelet Estimate Platelet Comment Polychromasia Poikilocytosis Anisocytosis Microcytosis Macrocytosis Spherocytes Tear Drop Cells Sodium 130 L Potassium 4.4 Chloride 98 Carbon Dioxide 19 L Anion Gap 13 BUN 26.6 H Creatinine 2.9 H Est GFR (CKD-EPI)AfAm 23.62 Est GFR (CKD-EPI)NonAf 20.38 POC Glucometer Random Glucose 162 H Calcium 7.2 L Phosphorus 3.0 Magnesium 1.9 ASSESSMENT AND PLAN: Acute Respiratory Failure Septic Shock Bilateral Feet Gangrene Infected Decubitus Ulcers Gram Negative Bacteremia Septic Shock ESRD on HD DM HTN Hyperlipidemia h/o CVA - Staff continues to make all efforts to reach NOK: I my opinion this constitutes patient abandonment - continue antibiotics per ID - continue midodrine - Pressors to maintain MAP >65 - monitor H/H - local wound care - HD per renal - aspiration precautions - DVT prophylaxis - Given overall poor condition, current medical condition, and overall poor mcc outcome, it would be appropriate for conservative measures and comfort care Dr Palmer Critical care time spent in reviewing chart, evaluating patient and formulating plan 36 min
[2019-03-12] MEDS ORDERED: EPOETIN ALFA 10,000 UNIT/1 ML VIAL IVPUSH ONE (11:30)
[2019-03-12] MEDS ORDERED: SODIUM CHLORIDE 250 ML IV PRN (11:30)
[2019-03-12] MEDS ORDERED: EPOETIN ALFA 2,000 UNIT/1 ML VIAL IVPUSH ONE (11:30)
[2019-03-12] MEDS: MULTIVITAMINS (DAILY MVI) TABLET (FP) PO SCH (12:23)
[2019-03-12] MEDS: ALLOPURINOL 100 MG TABLET (FP) PO SCH (12:23)
[2019-03-12] MEDS: LACTOBACILLUS ACIDOPHILUS 1 TABLET PO SCH (12:25)
[2019-03-12] MEDS: ESCITALOPRAM OXALATE 10 MG TABLET (FP) PO SCH (12:25)
[2019-03-12] MEDS: MIDODRINE HCL 5 MG TABLET PO SCH ×3 (12:25→18:12)
[2019-03-12] MEDS: APIXABAN 2.5 MG TABLET PO SCH ×2 (12:25→21:52)
--- NOTE | 2019-03-12 13:55 | PN ---
Teaching Attending Note Name of Resident: Mathew Adorno ATTENDING PHYSICIAN STATEMENT I saw and evaluated the patient. I reviewed the resident's note and discussed the case with the resident. I agree with the resident's findings and plan as documented. SUBJECTIVE: Events last night include seizure . was loaded with keppra OBJECTIVE: Intubated sedated, looks comfortable CV: RRR, no MRG Lungs: clear anteriorly. Abd:slightly distended , NL BS sacral area and leg wounds wee not examined today ASSESSMENT AND PLAN: 73 y/o man with h/o dementia, CVA, DM, COPD, ESRD, gout, HTN, HLP, recent admission 01/31-02/19 during which he was treated for sepsis due to infected b/l feet ulcers/gangrene. He was sent form NH due to poor po intake, and non healing wounds 1- Acute hypoxic resp failure 2- Septic shock 2/2 gangrene and infection in LE wounds 3- Infected sacral decub and scrotal ulcer 4- Proteus bacteremia ,polymicrobial wound 5- ESRD 6- DM 7- anemia Plan: - cont meropenem - blood cx growing - start keppra 250 BID - cont vent management and sedation - HD per schedule - monitor and replete electrolytes - SSI Poor prognosis. Appreciate PAlliative care and Ethics committee help. meeting with brother today who provided contact information of patient children and other family members. will wait for further recommendations. ASSESSMENT AND PLAN:
[2019-03-12] MEDS ORDERED: INSULIN (NOVOLOG) ASPART 100 UNITS/ML 10ML VIAL ONE (15:37)
--- NOTE | 2019-03-12 17:21 | PN ---
Progress Note (short form) - Note Progress Note: intubated intermittent fevers ?aspiration tube feeds d/rene remains intubated on vasopressin and levophed-doing poorly Vital Signs Period Temp Pulse Resp BP Sys/Zamorano Pulse Ox Last 24 Hr 98.1 F-102.7 F 87-131 26-34 100-138/37-74 100-100 cor-rrr lungs decreased bs at bases abd soft,nt ext dressings intact CBC, BMP 03/12/19 05:35 03/12/19 05:35 Microbiology 03/11/19 10:15 Sputum - Endotrachea Suction/Ventilator Gram Stain - Final 03/11/19 10:15 Sputum - Endotrachea Suction/Ventilator Sputum Culture - Preliminary Presumptive Mrsa (Pbp2a Pos) Lactose Fermenting Neg Bacilli Lactose Fermenting Neg Bacilli#2 Non Lactose Fermenting Gnb 03/11/19 06:45 Blood - Peripheral Venous Blood Culture - Preliminary Lactose Fermenting Neg Bacilli 03/11/19 05:30 Blood - Peripheral Venous Blood Culture - Preliminary NO GROWTH OBTAINED AFTER 24 HOURS, INCUBATION TO CONTINUE FOR 4 DAYS. 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 Morganella Morganii 02/21/19 15:40 Blood - Peripheral Venous Blood Culture - Final Proteus Mirabilis 02/21/19 14:50 Urine - Urine - Catheterized Urine Culture - Final NO GROWTH OBTAINED cxray-congestion, ?LLL infiltrate, ?right basilar atelectasis, congestion 2 a/p septic shock GNR bacteremia polymicrobial gram negative sepsis-proteus and prevotella suspected secondary to gangrenous legs esrd/hd overall prognosis is poor still trying to reach family ethics committee involved continue meropenem, gentamicin one dose check vanco level in am Problem List - Problems (1) Gram negative sepsis Code(s): A41.50 - GRAM-NEGATIVE SEPSIS, UNSPECIFIED (2) Gangrene of both feet Code(s): I96 - GANGRENE, NOT ELSEWHERE CLASSIFIED (3) ESRD (end stage renal disease) on dialysis Code(s): N18.6 - END STAGE RENAL DISEASE; Z99.2 - DEPENDENCE ON RENAL DIALYSIS (4) MRSA (methicillin resistant 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 coli carrier Code(s): Z22.39 - CARRIER OF OTHER SPECIFIED BACTERIAL DISEASES (6) VRE (vancomycin-resistant Enterococci) Code(s): A49.1 - STREPTOCOCCAL INFECTION, UNSPECIFIED SITE; Z16.21 - RESISTANCE TO VANCOMYCIN
[2019-03-12] MEDS: ALBUMIN HUMAN 25% 12.5 GM/50 ML VIAL IVPB SCH ×4 (21:30→23:00)
[2019-03-12] MEDS: ATORVASTATIN CA 20 MG TABLET (FP) PO SCH (21:52)
[2019-03-12] MEDS: TAMSULOSIN HCL 0.4 MG CAP PO SCH (21:52)
[2019-03-13] MEDS: levETIRAcetam 500 MG/5 ML ORAL SOLUTION (UNIT-DOSE CUPS) NGT SCH ×2 (00:07→10:20)
[2019-03-13] MEDS: FENTANYL INJECTION 500 MCG in DEXTROSE 5%-WATER - 90 ML IVPB SCH (00:50)
--- NOTE | 2019-03-13 01:55 | PN ---
Physical Exam: SUBJECTIVE: Patient seen and examined at bedside. On ventilator, continues to require max dose Levo and Vaso to maintain MAPs overnight. On Fentanyl for sedation. Non responsive to noxious stimuli OBJECTIVE: Vital Signs Period Temp Pulse Resp BP Sys/Zamorano Pulse Ox Last 24 Hr 98.1 F-102.7 F 82-131 18-34 100-137/40-79 100-100 GENERAL: The patient is intubated and sedated. No response to noxious stimuli HEAD: Normal with no signs of trauma. EYES: PERRL, extraocular movements intact, sclera anicteric, conjunctiva clear. No ptosis. ENT: Ears normal, nares patent, oropharynx clear without exudates, moist mucous membranes. NECK: Trachea midline, full range of motion, supple. LUNGS: Breath sounds equal, clear to auscultation bilaterally, no wheezes, no crackles, no accessory muscle use. HEART: Regular rate and rhythm, S1, S2 without murmur, rub or gallop. ABDOMEN: Soft, nontender, nondistended, normoactive bowel sounds, no guarding, no rebound, no hepatosplenomegaly, no masses. EXTREMITIES: bilateral gangrene lower ext down to the tendon on the left with unstageble sacral ulcer NEUROLOGICAL: Cranial nerves II through XII grossly intact. Follows basic commands PSYCH: Normal mood, normal affect. SKIN: bilateral gangrene lower ext down to the tendon on the left with purulent foul smelling discharge. Unstageble sacral ulcer Laboratory Results - last 24 hr 03/12/19 03/12/19 03/12/19 05:35 05:35 15:35 WBC 12.7 H RBC 2.64 L Hgb 7.8 L Hct 25.7 L MCV 97.2 H MCH 29.5 MCHC 30.3 L RDW 19.7 H Plt Count 238 MPV 9.8 D Absolute Neuts (auto) 10.9 H Neutrophils % 85.9 H Lymphocytes % 9.9 D Monocytes % 2.3 L Eosinophils % 1.6 Basophils % 0.3 Nucleated RBC % 0 Sodium 130 L Potassium 4.4 Chloride 98 Carbon Dioxide 19 L Anion Gap 13 BUN 26.6 H Creatinine 2.9 H Est GFR (CKD-EPI)AfAm 23.62 Est GFR (CKD-EPI)NonAf 20.38 POC Glucometer 220 Random Glucose 162 H Calcium 7.2 L Phosphorus 3.0 Magnesium 1.9 Active Medications Generic Name Dose Route Start Last Admin Trade Name Freq PRN Reason Stop Dose Admin Acetaminophen 1,000 mg 03/11/19 04:18 03/12/19 01:54 Ofirmev Injection - IVPB 1,000 mg Q6H PRN Administration FEVER Amino Acids 30 ml 02/21/19 22:00 03/12/19 21:52 Prosource No Carb Liquid Pkt PO 30 ml TID CHANTELL Administration Apixaban 2.5 mg 02/21/19 22:00 03/12/19 21:52 Eliquis - PO 2.5 mg BID CHANTELL Administration Atorvastatin Calcium 20 mg 02/21/19 22:00 03/12/19 21:52 Lipitor - PO 20 mg HS CHANTELL Administration Collagenase 1 applic 02/22/19 10:00 03/12/19 10:00 Santyl - TP 1 applic DAILY CHANTELL Administration Protocol Escitalopram Oxalate 10 mg 02/22/19 10:00 03/12/19 12:25 Lexapro - PO Not Given DAILY CHANTELL Hydrocortisone Sodium Succinate 100 mg 03/11/19 11:00 03/12/19 17:58 Solu-Cortef - IVPB 100 mg Q8H-IV CHANTELL Administration Fentanyl 500 mcg/ Dextrose 100 mls @ 1 mls/hr 03/11/19 00:45 03/13/19 00:50 IVPB Not Given TITR CHANTELL 5 MCG/HR Norepinephrine Bitartrate 8, 500 mls @ 18.75 mls/hr 03/11/19 05:58 03/12/19 15:00 000 mcg/ Dextrose IV 30 mcg/min ASDIR CHANTELL 112.5 mls/hr Administration Protocol 5 MCG/MIN Vasopressin 50 units/ Sodium 100 mls @ 4 mls/hr 03/11/19 06:30 03/12/19 18:11 Chloride IVPB 6 units/hr ASDIR CHANTELL 12 mls/hr Administration Protocol 2 UNITS/HR Meropenem 500 mg/ Dextrose 100 mls @ 200 mls/hr 03/11/19 10:00 03/12/19 09:29 IVPB 200 mls/hr DAILY CHANTELL Administration Sodium Chloride 250 mls @ 3,000 mls/hr 03/12/19 11:30 Normal Saline - IV 03/13/19 11:29 PRN PRN Hypotension during Dialysis Gentamicin Sulfate/Sodium Chloride 80 mg in 100 mls @ 100 mls/hr 03/12/19 17: 22 Garamycin 80 Mg Premixed Ivpb - IVPB 03/12/19 18:21 ONCE ONE Protocol Insulin Aspart 1 vial 02/26/19 10:00 03/12/19 15:38 Novolog Vial Sliding Scale - SQ 4 units BIDAC CHANTELL Administration Protocol Levetiracetam 250 mg 03/12/19 22:00 03/13/19 00:07 Keppra Oral Solution - NGT 250 mg BID CHANTELL Administration Midodrine 10 mg 03/02/19 14:00 03/12/19 18:12 Proamatine - PO Not Given TID-MID CHANTELL Multivitamins/Minerals/Vitamin C 1 tab 02/22/19 10:00 03/12/19 12:23 Tab-A-Vit - PO Not Given DAILY CHANTELL Pantoprazole Sodium 40 mg 03/05/19 12:00 03/12/19 09:29 Protonix Iv IVPUSH 40 mg DAILY CHANTELL Administration Tamsulosin HCl 0.4 mg 02/21/19 22:00 03/12/19 21:52 Flomax - PO 0.4 mg HS CHANTELL Administration ASSESSMENT/PLAN: Call placed to Daughter Molly who is next of Kin,no answer once again. Case discussed with Ethics, state they will have a meeting to discuss potential plan Tube feeds restarted with head of bed elevated #septic shock 2/2 DM gangrenous B/L feet infx, Infected sacral decub and scrotal ulcer, and GN bacteremia (proteus, prevotella) - requiring ICU and pressors, +Leukocytosis. Now w/ hypoxic respiratory failure possibly 2/2 developing aspiration PNA (aspirated over the weekend) requiring intubation/ sedation. CXR 03/11 shows questionable infiltrate L base -old cx with E coli, ESBL, MRSA, and VRE. -contact isolation for MDRO -s/p Vanc and Zosyn in the ED, Gentamicin x1, Meropenem x2 in ICU -Bcx 02/21/19 growing GN cher - proteus and prevotella -ucx neg -wound cx E coli, morganella -Bcx 02/23/19 neg -f/u sputum cx, bcx 03/11/19 -ID consulted, Rangel -lactic acid resolved -palliative care consulted -switch CTX 2g/flagyl to Meropenem day #17 total abx, ID recs appreciated -Aspiration precautions. -Levophed 30, vasopressin 5 gtt, Titrate pressors to keep MAP>65 -fentanyl 25mcg for comfort and sedation -vascular surgery consulted, Dr harry, for wound care. amputation indicated, but family not amenable. cont GOC -per ID no vanc, cx show no MRSA for >48hr #ESRD on HD (MWF) -ne[facility]ro consulted (Dr. Henriquez) [facility]. #Acute on chronic anemia likely 2/2 ESRD -monitor H/H #Severe protein calorie malnutrition -albumin 1.1, prealbumin 3.5 -thin appearing, decreased muscle mass and fat -decreased overall PO intake -Encourage Magic cup, tube feeds restarted #COPD -keep SpO2>90% -Duonebs q6h PRN #Dm ISS BGM ACHS #H/o hypotension : c/w home midodrine monitor vitals # h/o afib c/w elequis 2.5 bid #FEN -Not on any standing fluids -replete prn -NGT on tube feeds #Prophylaxis -Eliquis 2.5mg BID -Protonix IV while on AC and pressors -bacid Visit type - Emergency Visit Emergency Visit: No - New Patient This patient is new to me today: No - Critical Care Critical Care patient: Yes Total Critical Care Time (in minutes): 35 Critical Care Statement: The care of this patient involved high complexity decision making to prevent further life threatening deterioration of the patient 's condition and/or to evaluate & treat vital organ system(s) failure or risk of failure.
[2019-03-13] MEDS: HYDROCORTISONE SOD SUCCINATE 100 MG/2 ML VIAL IVPB SCH ×3 (02:25→19:03)
[2019-03-13] MEDS ORDERED: AMIODARONE HCL 150 MG/3 ML VIAL IVPUSH ONE ×2 (05:03→07:36)
[2019-03-13] MEDS ORDERED: fentaNYL CITRATE 250 MCG/5 ML VIAL ONE (05:07)
[2019-03-13] MEDS: NOREPINEPHRINE BITARTRATE 8,000 MCG in DEXTROSE 5%-WATER - 492 ML IV SCH (06:05)
[2019-03-13 06:07] LABS: BASO % 0.5 % (0-2.0); HEMATOCRIT 24.5 % (35.4-49); HEMOGLOBIN 7.6 GM/dL (11.7-16.9); LYMPH % 12.4 % (8-40); MCH 29.8 pg (25.7-33.7); MCHC 31.3 g/dl (32.0-35.9); MEAN CELL VOLUME 95.2 fl (80-96); MEAN PLT VOLUME 9.4 fl (7.5-11.1); MONO % 3.5 % (3.8-10.2); NEUT % 83.6 % (42.8-82.8); PLATELET COUNT 187 K/MM3 (134-434); RBC 2.57 M/mm3 (4.00-5.60); RDW 19.8 % (11.9-15.9); WHITE BLOOD COUNT 15.5 K/mm3 (4.0-10.0)
[2019-03-13] MEDS: AMINO ACIDS/PROTEIN HYDROLYS 30 ML LIQUID.PKT PO SCH ×3 (06:07→21:47)
[2019-03-13 06:48] LABS: BLOOD UREA NITROGEN 15.3 mg/dL (7-18); MAGNESIUM 1.7 mg/dL (1.8-2.4); PHOSPHOROUS 2.6 mg/dL (2.5-4.9); POTASSIUM 3.2 mmol/L (3.5-5.1)
[2019-03-13] MEDS: INSULIN SLIDING SCALE (NOVOLOG) 1 VIAL SQ SCH ×3 (06:51→19:15)
[2019-03-13] MEDS: VASOPRESSIN 50 UNITS in SODIUM CHLORIDE 97.5 ML IVPB SCH (06:51)
[2019-03-13 06:54] LABS: CALCIUM 6.6 mg/dL (8.5-10.1)
--- NOTE | 2019-03-13 07:42 | PN ---
Physical Exam: SUBJECTIVE: Patient seen and examined in ICU. overnight multiple SVTs. afebrile >24hr. intubated sedated on pressors x2 w/ stress steroids in septic shock. GOC/ ethics meeting ongoing OBJECTIVE: Vital Signs Period Temp Pulse Resp BP Sys/Zamorano Pulse Ox Last 24 Hr 98.1 F-99.2 F 82-120 18-30 104-137/52-79 100-100 GENERAL: intubated sedated. thin appearing, decreased muscle mass and fat EARS, NOSE, THROAT: dry mucous membranes. LUNGS: CTAB HEART: irregularly irregular s1s2 normal ABDOMEN: Soft, NTND normoactive bowel sounds, ulcer present on sacrum unstagable with foul discharge, scrotum has ulcer no discharge MUSCULOSKELETAL: Normal range of motion at all joints. No bony deformities or tenderness. No CVA tenderness. UPPER EXTREMITIES: 2+ pulses, warm, well-perfused. +edema LOWER EXTREMITIES: b/l wet gangrene with fouls smelling discharge SKIN: Warm, dry, Neuo: intubated sedated. no apparent gag reflex today, sluggish pupils, non responsive to pain or voice Laboratory Results - last 24 hr 03/12/19 03/13/19 03/13/19 15:35 05:30 05:30 WBC 15.5 H RBC 2.57 L Hgb 7.6 L Hct 24.5 L MCV 95.2 MCH 29.8 MCHC 31.3 L RDW 19.8 H Plt Count 187 D MPV 9.4 Absolute Neuts (auto) 12.9 H Neutrophils % 83.6 H Lymphocytes % 12.4 D Monocytes % 3.5 L Eosinophils % 0.0 D Basophils % 0.5 Nucleated RBC % 0 Sodium Potassium Chloride Carbon Dioxide Anion Gap BUN Creatinine Est GFR (CKD-EPI)AfAm Est GFR (CKD-EPI)NonAf POC Glucometer 220 Random Glucose Calcium Phosphorus Magnesium Random Vancomycin 8.0 L 03/13/19 05:30 WBC RBC Hgb Hct MCV MCH MCHC RDW Plt Count MPV Absolute Neuts (auto) Neutrophils % Lymphocytes % Monocytes % Eosinophils % Basophils % Nucleated RBC % Sodium 132 L Potassium 3.2 L Chloride 96 L Carbon Dioxide 26 Anion Gap 11 BUN 15.3 Creatinine 2.0 H Est GFR (CKD-EPI)AfAm 37.01 Est GFR (CKD-EPI)NonAf 31.93 POC Glucometer Random Glucose 206 H Calcium 6.6 L* Phosphorus 2.6 Magnesium 1.7 L Random Vancomycin Active Medications Generic Name Dose Route Start Last Admin Trade Name Jaq PRN Reason Stop Dose Admin Acetaminophen 1,000 mg 03/11/19 04:18 03/12/19 01:54 Ofirmev Injection - IVPB 1,000 mg Q6H PRN Administration FEVER Amino Acids 30 ml 02/21/19 22:00 03/13/19 06:07 Prosource No Carb Liquid Pkt PO 30 ml TID CHANTELL Administration Apixaban 2.5 mg 02/21/19 22:00 03/12/19 21:52 Eliquis - PO 2.5 mg BID CHANTELL Administration Atorvastatin Calcium 20 mg 02/21/19 22:00 03/12/19 21:52 Lipitor - PO 20 mg HS CHANTELL Administration Collagenase 1 applic 02/22/19 10:00 03/12/19 10:00 Santyl - TP 1 applic DAILY CHANTELL Administration Protocol Escitalopram Oxalate 10 mg 02/22/19 10:00 03/12/19 12:25 Lexapro - PO Not Given DAILY CHANTELL Hydrocortisone Sodium Succinate 100 mg 03/11/19 11:00 03/13/19 02:25 Solu-Cortef - IVPB 100 mg Q8H-IV CHANTELL Administration Fentanyl 500 mcg/ Dextrose 100 mls @ 1 mls/hr 03/11/19 00:45 03/13/19 00:50 IVPB Not Given TITR CHANTELL 5 MCG/HR Norepinephrine Bitartrate 8, 500 mls @ 18.75 mls/hr 03/11/19 05:58 03/13/19 06:05 000 mcg/ Dextrose IV 30 mcg/min ASDIR CHANTELL 112.5 mls/hr Administration Protocol 5 MCG/MIN Vasopressin 50 units/ Sodium 100 mls @ 4 mls/hr 03/11/19 06:30 03/13/19 06:51 Chloride IVPB Not Given ASDIR CHANTELL Protocol 2 UNITS/HR Meropenem 500 mg/ Dextrose 100 mls @ 200 mls/hr 03/11/19 10:00 03/12/19 09:29 IVPB 200 mls/hr DAILY CHANTELL Administration Sodium Chloride 250 mls @ 3,000 mls/hr 03/12/19 11:30 Normal Saline - IV 03/13/19 11:29 PRN PRN Hypotension during Dialysis Gentamicin Sulfate/Sodium Chloride 80 mg in 100 mls @ 100 mls/hr 03/12/19 17: 22 Garamycin 80 Mg Premixed Ivpb - IVPB 03/12/19 18:21 ONCE ONE Protocol Insulin Aspart 1 vial 02/26/19 10:00 03/13/19 06:51 Novolog Vial Sliding Scale - SQ 4 units BIDAC CHANTELL Administration Protocol Levetiracetam 250 mg 03/12/19 22:00 03/13/19 00:07 Keppra Oral Solution - NGT 250 mg BID CHANTELL Administration Midodrine 10 mg 03/02/19 14:00 03/12/19 18:12 Proamatine - PO Not Given TID-MID CHANTELL Multivitamins/Minerals/Vitamin C 1 tab 02/22/19 10:00 03/12/19 12:23 Tab-A-Vit - PO Not Given DAILY CHANTELL Pantoprazole Sodium 40 mg 03/05/19 12:00 03/12/19 09:29 Protonix Iv IVPUSH 40 mg DAILY CHANTELL Administration Tamsulosin HCl 0.4 mg 02/21/19 22:00 03/12/19 21:52 Flomax - PO 0.4 mg HS CHANTELL Administration ASSESSMENT/PLAN: 73 yo M PMH dementia, CVA, DM, COPD, ESRD, gout, HTN, HLP, recent admission 01/31- 02/19 during which he was treated for sepsis due to infected b/l feet ulcers/ gangrene. He was sent form NH due to poor po intake, and worsening of ulcers. Now in septic shock 2/2 DM gangrenous B/L feet infx, Infected sacral decub and scrotal ulcer, and GN bacteremia , requiring ICU and pressors #septic shock 2/2 DM gangrenous B/L feet infx, Infected sacral decub and scrotal ulcer, and GN bacteremia (proteus, prevotella) - requiring ICU and pressors. Now w/ hypoxic respiratory failure possibly 2/2 developing aspiration PNA (aspirated over the weekend) requiring intubation/sedation. CXR 03/11 shows questionable infiltrate L base. +Leukocytosis. afebrile now for >24hr -old cx with E coli, ESBL, MRSA, and VRE. -contact isolation for MDRO -s/p Vanc and Zosyn in the ED, Gentamicin x1, Meropenem x2 in ICU -Bcx 5/30/19 growing GN cher - proteus and prevotella -ucx neg -wound cx E coli, morganella -Bcx 02/23/19 neg -03/11/19 sputum cx presumptive MRSA; bcx ecoli esbl bacteremia. -ID consulted, Rangel -lactic acid resolved -palliative care consulted -s/p CTX 2g/flagyl, c/w Meropenem day #19 total abx, ID recs appreciated. -today redosing vanc and gentamicin x1 per ID -Aspiration precautions. -c/w Levophed, vasopressin, stress steroids. Titrate pressors to keep MAP>65 -fentanyl 25mcg for comfort and sedation -vascular surgery consulted, Dr harry, for wound care. amputation indicated, but family not amenable. cont GOC #Seizure-like myoclonus 03/12/19 - noted overnight. resolved w/ ativan 1mg and loaded w/ keppra. see Dr Brooklynn dias for further details c/w keppra 250 bid #ESRD on HD ([facility]) -nephro consulted (Dr. Henriquez) -HD as per nephro ned held by nephro for low phos. #Acute on chronic anemia likely 2/2 ESRD -monitor H/H #Severe protein calorie malnutrition -albumin 1.1, prealbumin 3.5 -thin appearing, decreased muscle mass and fat -decreased overall PO intake -Magic cup, Ensure pudding for increased density of nutritional intake. Now on NGT while intubated #COPD -keep SpO2>90% -Duonebs q6h PRN #Dm ISS BGM ACHS #H/o hypotension : c/w home midodrine monitor vitals # h/o afib c/w elequis 2.5 bid #FEN -Not on any standing fluids -replete prn -NGT on tube feeds #Prophylaxis -Eliquis 2.5mg BID -Protonix IV while on AC and pressors -bacid #Disposition -full code -GOC/ethics consult placed, as we have attempted multiple times to contact daughter who has not been responsive and in the past has not been amenable to to allow for source control/amputation and standard of care. given patients inability to make decisions for himself and daughter unwillingness pt will likely cont to suffer w/o improvement and has spoor prognosis. multiple times various members of primary team and ICU team have tried contacting daughter and brother for GOC/ethics meeting. Resident Dr Milton was able to make contact w/ daughter but no meaningful discussion was able to take place, please see Dr Milton note for further detail. brother has been contacted and will be coming today for ethics/GOC meeting, although use may be limited since daughter will not be coming. This may constitute pt abandonment -given overall poor prognosis, conservative measures and comfort care may be appropriate -ICU monitoring Visit type - Emergency Visit Emergency Visit: Yes ED Registration Date: 02/21/19 Care time: The patient presented to the Emergency Department on the above date and was hospitalized for further evaluation of their emergent condition. - New Patient This patient is new to me today: Yes Date on this admission: 03/13/19 - Critical Care Critical Care patient: Yes Total Critical Care Time (in minutes): 39 Critical Care Statement: The care of this patient involved high complexity decision making to prevent further life threatening deterioration of the patient 's condition and/or to evaluate & treat vital organ system(s) failure or risk of failure.
[2019-03-13] MEDS ORDERED: POTASSIUM CHLORIDE ORAL LIQUID 20 MEQ/15 ML NGT ONE (07:43)
[2019-03-13] MEDS ORDERED: MAGNESIUM OXIDE 400 MG TABLET (FP) NGT ONE (07:44)
--- NOTE | 2019-03-13 08:37 | PN ---
Teaching Attending Note Name of Resident: Mathew Adorno ATTENDING PHYSICIAN STATEMENT I saw and evaluated the patient. I reviewed the resident's note and discussed the case with the resident. I agree with the resident's findings and plan as documented. SUBJECTIVE: Pt seen and examined in the ICU. Remains intubated, on 2 pressors , levophed gtt and vasopressin. OBJECTIVE: Vital Signs Temperature 98.9 F 03/13/19 06:00 Pulse Rate 101 H 03/13/19 07:06 Respiratory Rate 29 H 03/13/19 07:04 Blood Pressure 119/73 03/13/19 06:00 O2 Sat by Pulse Oximetry (%) 100 03/13/19 07:06 GENERAL: The patient is intubated , sedated. HEAD: Normal with no signs of trauma. EYES: extraocular movements intact, sclera anicteric, ENT: intubated and sedated . NECK: Trachea midline, positive for ET-tube LUNGS: intubated , sedated . HEART: tachycardic , S1, S2 without murmur, rub or gallop. ABDOMEN: Soft, nontender, nondistended, normoactive bowel sounds, no guarding, no rebound, no hepatosplenomegaly, no masses. EXTREMITIES: contracted, with gangrenous lower extremities SKIN: Warm. CBCD WBC 15.5 K/mm3 (4.0-10.0) H 03/13/19 05:30 RBC 2.57 M/mm3 (4.00-5.60) L 03/13/19 05:30 Hgb 7.6 GM/dL (11.7-16.9) L 03/13/19 05:30 Hct 24.5 % (35.4-49) L 03/13/19 05:30 MCV 95.2 fl (80-96) 03/13/19 05:30 MCHC 31.3 g/dl (32.0-35.9) L 03/13/19 05:30 RDW 19.8 % (11.9-15.9) H 03/13/19 05:30 Plt Count 187 K/MM3 (134-434) D 03/13/19 05:30 MPV 9.4 fl (7.5-11.1) 03/13/19 05:30 CMP Sodium 132 mmol/L (136-145) L 03/13/19 05:30 Potassium 3.2 mmol/L (3.5-5.1) L 03/13/19 05:30 Chloride 96 mmol/L (98-107) L 03/13/19 05:30 Carbon Dioxide 26 mmol/L (21-32) 03/13/19 05:30 Anion Gap 11 MMOL/L (8-16) 03/13/19 05:30 BUN 15.3 mg/dL (7-18) 03/13/19 05:30 Creatinine 2.0 mg/dL (0.55-1.3) H 03/13/19 05:30 Random Glucose 206 mg/dL (74-106) H 03/13/19 05:30 Calcium 6.6 mg/dL (8.5-10.1) L* 03/13/19 05:30 Total Bilirubin 0.6 mg/dL (0.2-1) 03/10/19 05:00 AST 24 U/L (15-37) 03/10/19 05:00 ALT 8 U/L (13-61) L 03/10/19 05:00 Alkaline Phosphatase 313 U/L (45-117) H 03/10/19 05:00 Total Protein 4.8 g/dl (6.4-8.2) L 03/10/19 05:00 Albumin 1.3 g/dl (3.4-5.0) L 03/10/19 05:00 CARDIAC ENZYMES Troponin I < 0.02 ng/ml (0.00-0.05) 02/21/19 15:10 Current Medications Generic Name Dose Route Start Last Admin Trade Name Kassandra PRN Reason Stop Dose Admin Acetaminophen 1,000 mg 03/11/19 04:18 03/12/19 01:54 Ofirmev Injection - IVPB 1,000 mg Q6H PRN Administration FEVER Amino Acids 30 ml 02/21/19 22:00 03/13/19 06:07 Prosource No Carb Liquid Pkt PO 30 ml TID CHANTELL Administration Apixaban 2.5 mg 02/21/19 22:00 03/12/19 21:52 Eliquis - PO 2.5 mg BID CHANTELL Administration Atorvastatin Calcium 20 mg 02/21/19 22:00 03/12/19 21:52 Lipitor - PO 20 mg HS CHANTELL Administration Collagenase 1 applic 02/22/19 10:00 03/12/19 10:00 Santyl - TP 1 applic DAILY CHANTELL Administration Protocol Escitalopram Oxalate 10 mg 02/22/19 10:00 03/12/19 12:25 Lexapro - PO Not Given DAILY CHANTELL Hydrocortisone Sodium Succinate 100 mg 03/11/19 11:00 03/13/19 02:25 Solu-Cortef - IVPB 100 mg Q8H-IV CHANTELL Administration Fentanyl 500 mcg/ Dextrose 100 mls @ 1 mls/hr 03/11/19 00:45 03/13/19 00:50 IVPB Not Given TITR CHANTELL 5 MCG/HR Norepinephrine Bitartrate 8, 500 mls @ 18.75 mls/hr 03/11/19 05:58 03/13/19 06:05 000 mcg/ Dextrose IV 30 mcg/min ASDIR CHANTELL 112.5 mls/hr Administration Protocol 5 MCG/MIN Vasopressin 50 units/ Sodium 100 mls @ 4 mls/hr 03/11/19 06:30 03/13/19 06:51 Chloride IVPB Not Given ASDIR CHANTELL Protocol 2 UNITS/HR Meropenem 500 mg/ Dextrose 100 mls @ 200 mls/hr 03/11/19 10:00 03/12/19 09:29 IVPB 200 mls/hr DAILY CHANTELL Administration Sodium Chloride 250 mls @ 3,000 mls/hr 03/12/19 11:30 Normal Saline - IV 03/13/19 11:29 PRN PRN Hypotension during Dialysis Gentamicin Sulfate/Sodium Chloride 80 mg in 100 mls @ 100 mls/hr 03/12/19 17: 22 Garamycin 80 Mg Premixed Ivpb - IVPB 03/12/19 18:21 ONCE ONE Protocol Insulin Aspart 1 vial 02/26/19 10:00 03/13/19 06:51 Novolog Vial Sliding Scale - SQ 4 units BIDAC CHANTELL Administration Protocol Levetiracetam 250 mg 03/12/19 22:00 03/13/19 00:07 Keppra Oral Solution - NGT 250 mg BID CHANTELL Administration Midodrine 10 mg 03/02/19 14:00 03/12/19 18:12 Proamatine - PO Not Given TID-MID CHANTELL Multivitamins/Minerals/Vitamin C 1 tab 02/22/19 10:00 03/12/19 12:23 Tab-A-Vit - PO Not Given DAILY CHANTELL Pantoprazole Sodium 40 mg 03/05/19 12:00 03/12/19 09:29 Protonix Iv IVPUSH 40 mg DAILY CHANTELL Administration Tamsulosin HCl 0.4 mg 02/21/19 22:00 03/12/19 21:52 Flomax - PO 0.4 mg HS CHANTELL Administration Home Medications Medication Instructions Recorded Albuterol 2.5/Ipratropium 0.5 1 amp NEB Q6H PRN #0 amp 07/12/17 [Duoneb -] Allopurinol [Zyloprim -] 100 mg PO DAILY tablet 07/12/17 Atorvastatin Ca [Lipitor] 20 mg PO HS tablet 07/12/17 Collagenase Clostridium Hist. 1 applic TP DAILY tube 09/06/18 [Santyl -] Albuterol Sulfate [Proair Hfa] 2 puff IH Q6H PRN 10/29/18 Escitalopram Oxalate [Lexapro -] 10 mg PO DAILY 10/29/18 Folic Acid/Vit B Complex and C 1 each PO DAILY 10/29/18 [Dialyvite Tablet] Midodrine HCl 10 mg PO MOWEFR 10/29/18 Sevelamer Carbonate [Renvela -] 1,600 mg PO TID 10/29/18 Tamsulosin HCl [Flomax] 0.4 mg PO HS 10/29/18 Insulin Sliding Scale [Novolog 1 vial SQ TIDAC #1 vial 11/17/18 Vial Sliding Scale -] Apixaban [Eliquis -] 5 mg PO BID #30 tablet MDD 2 11/19/18 Collagenase Clostridium Hist. 1 applic TP DAILY #1 tube 01/17/19 [Santyl -] Amoxicillin/Potassium Clav 1 each PO DAILY #7 tablet 02/06/19 [Augmentin 500-125 Tablet] Megestrol Acetate Oral Susp 400 mg PO DAILY #20 cup 02/06/19 [Megace Liquid -] Protein Supplement [Prosource] 275 gm PO TID #60 powder 02/06/19 Lactobacillus Acidophilus [Bacid -] 1 tab PO DAILY #60 tab 02/19/19 Midodrine HCl [Proamatine -] 5 mg PO SuTuThSa #60 tablet 02/19/19 traMADol HCL [Ultram -] 50 mg PO Q6H PRN #60 tablet MDD 4 02/19/19 Microbiology 03/11/19 10:15 Sputum - Endotrachea Suction/Ventilator Gram Stain - Final 03/11/19 10:15 Sputum - Endotrachea Suction/Ventilator Sputum Culture - Preliminary Mr S Aureus Escherichia Coli Esbl Project Production Engineer Lactose Fermenting Neg Bacilli#2 Non Lactose Fermenting Gnb 03/11/19 06:45 Blood - Peripheral Venous Blood Culture - Final Escherichia Coli Esbl Project Production Engineer 03/11/19 05:30 Blood - Peripheral Venous Blood Culture - Preliminary NO GROWTH OBTAINED AFTER 48 HOURS, INCUBATION TO CONTINUE FOR 3 DAYS. 02/23/19 11:50 Blood - Peripheral Venous Blood Culture - Final NO GROWTH AFTER 5 DAYS INCUBATION 02/23/19 11:50 Blood - Peripheral Venous Blood Culture - Final NO GROWTH AFTER 5 DAYS INCUBATION 02/21/19 13:16 Blood - Peripheral Venous Blood Culture - Final Proteus Mirabilis Prevotella Melaninogenica 02/21/19 16:30 Foot - Left Heel Gram Stain - Final 02/21/19 16:30 Foot - Left Heel Wound Culture - Final Escherichia Coli Esbl Project Production Engineer Morganella Morganii 02/21/19 15:40 Blood - Peripheral Venous Blood Culture - Final Proteus Mirabilis 02/21/19 14:50 Urine - Urine - Catheterized Urine Culture - Final NO GROWTH OBTAINED ASSESSMENT AND PLAN: Patient is a 73 y/o man with h/o dementia, CVA, DM, COPD, ESRD, gout, HTN, HLP, recent admission 01/31-02/19 during which he was treated for sepsis due to infected b/l feet ulcers/gangrene. He was sent form NH due to poor po intake, and non healing wounds # Acute hypoxic resp failure s/p intubation in ICU vent management and sedation as per ICU team # Septic shock due to gangrenous infection of LEs cont meropenem # Proteus Mirabilis bacteremia continue IV antibiotic/ID on the case # Infected sacral decub and scrotal ulcer # Proteus bacteremia ,polymicrobial wound # ESRD HD per schedule # DM SSI # anemia On keppra 250 BID Poor prognosis. Appreciate Palliative care and Ethics committee help will wait for further recommendations.
--- NOTE | 2019-03-13 09:04 | PN ---
Progress Note (short form) - Note Progress Note: intubated on two pressors s/p HD yesterday Vital Signs Period Temp Pulse Resp BP Sys/Zamorano Pulse Ox Last 24 Hr 98.1 F-99.2 F 82-120 18-29 104-137/54-79 100-100 cor-rrr lungs decreased bs at bases abd soft,nt ext contracted, dressing intact CBC, BMP 03/13/19 05:30 03/13/19 05:30 cxray-congestion, ?LLL infiltrate, ?right basilar atelectasis, congestion Microbiology 03/11/19 06:45 Blood - Peripheral Venous Blood Culture - Final Escherichia Coli Esbl Physics Teacher 03/11/19 05:30 Blood - Peripheral Venous Blood Culture - Preliminary NO GROWTH OBTAINED AFTER 48 HOURS, INCUBATION TO CONTINUE FOR 3 DAYS. 03/11/19 10:15 Sputum - Endotrachea Suction/Ventilator Gram Stain - Final 03/11/19 10:15 Sputum - Endotrachea Suction/Ventilator Sputum Culture - Preliminary Presumptive Mrsa (Pbp2a Pos) Lactose Fermenting Neg Bacilli Lactose Fermenting Neg Bacilli#2 Non Lactose Fermenting Gnb 02/23/19 11:50 Blood - Peripheral Venous Blood Culture - Final NO GROWTH AFTER 5 DAYS INCUBATION 02/23/19 11:50 Blood - Peripheral Venous Blood Culture - Final NO GROWTH AFTER 5 DAYS INCUBATION 02/21/19 13:16 Blood - Peripheral Venous Blood Culture - Final Proteus Mirabilis Prevotella Melaninogenica 02/21/19 16:30 Foot - Left Heel Gram Stain - Final 02/21/19 16:30 Foot - Left Heel Wound Culture - Final Escherichia Coli Esbl Physics Teacher Morganella Morganii 02/21/19 15:40 Blood - Peripheral Venous Blood Culture - Final Proteus Mirabilis 02/21/19 14:50 Urine - Urine - Catheterized Urine Culture - Final NO GROWTH OBTAINED 2 a/p septic shock GNR bacteremia-ecoli esbl bacteremia- continue meropenem ?pneumonia- f/u sputum culture suspected secondary to gangrenous legs esrd/hd overall prognosis is poor still trying to reach family ethics committee involved continue meropenem, gentamicin one dose redose vancomycin repeat cxray Problem List - Problems (1) Gram negative sepsis Code(s): A41.50 - GRAM-NEGATIVE SEPSIS, UNSPECIFIED (2) Gangrene of both feet Code(s): I96 - GANGRENE, NOT ELSEWHERE CLASSIFIED (3) ESRD (end stage renal disease) on dialysis Code(s): N18.6 - END STAGE RENAL DISEASE; Z99.2 - DEPENDENCE ON RENAL DIALYSIS (4) MRSA (methicillin resistant 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 coli carrier Code(s): Z22.39 - CARRIER OF OTHER SPECIFIED BACTERIAL DISEASES (6) VRE (vancomycin-resistant Enterococci) Code(s): A49.1 - STREPTOCOCCAL INFECTION, UNSPECIFIED SITE; Z16.21 - RESISTANCE TO VANCOMYCIN
[2019-03-13] MEDS ORDERED: VANCOMYCIN 1 GRAM (PRE-DOCKED) 1,000 MG/250 ML BAG IVPB ONE (09:05)
[2019-03-13] MEDS: GENTAMICIN 80 MG PREMIXED IVPB 80 MG/100 ML BAG IVPB ONE ×2 (09:55→13:15)
[2019-03-13] MEDS: MULTIVITAMINS (DAILY MVI) TABLET (FP) PO SCH (10:12)
[2019-03-13] MEDS: COLLAGENASE CLOSTRIDIUM HIST. 30 GRAMS TUBE TP SCH (10:13)
[2019-03-13] MEDS: MEROPENEM 500 MG in DEXTROSE 5%-WATER 100 ML IVPB SCH (10:18)
[2019-03-13] MEDS: ESCITALOPRAM OXALATE 10 MG TABLET (FP) PO SCH (10:18)
[2019-03-13] MEDS: APIXABAN 2.5 MG TABLET PO SCH ×2 (10:20→21:46)
[2019-03-13] MEDS: PANTOPRAZOLE SODIUM 40 MG VIAL IVPUSH SCH (10:21)
[2019-03-13] MEDS: MIDODRINE HCL 5 MG TABLET PO SCH ×3 (10:21→19:15)
[2019-03-13] MEDS ORDERED: MAGNESIUM SULF 50% (8.12 MEQ/2 ML-1 GM VIAL) IVPB ONE (10:34)
[2019-03-13] MEDS ORDERED: KCL 10 MEQ IVPB 10 MEQ/100 ML INFUS.BAG IVPB SCH (11:15)
--- NOTE | 2019-03-13 11:17 | PN ---
Progress Note, Physician History of Present Illness: Pt seen and examined at bedside. He remains in the ICU. He remain intubated. He developed rapid a-fib last night. He also has blood in his stool. - Current Medication List Current Medications: Active Medications Acetaminophen (Ofirmev Injection -) 1,000 mg IVPB Q6H PRN PRN Reason: FEVER Last Admin: 03/12/19 01:54 Dose: 1,000 mg Amino Acids (Prosource No Carb Liquid Pkt) 30 ml PO TID CHANTELL Last Admin: 03/13/19 06:07 Dose: 30 ml Apixaban (Eliquis -) 2.5 mg PO BID CHANTELL Last Admin: 03/13/19 10:20 Dose: Not Given Atorvastatin Calcium (Lipitor -) 20 mg PO HS CHANTELL Last Admin: 03/12/19 21:52 Dose: 20 mg Collagenase (Santyl -) 1 applic TP DAILY CHANTELL; Protocol Last Admin: 03/13/19 10:13 Dose: 1 applic Escitalopram Oxalate (Lexapro -) 10 mg PO DAILY CHANTELL Last Admin: 03/13/19 10:18 Dose: Not Given Hydrocortisone Sodium Succinate (Solu-Cortef -) 100 mg IVPB Q8H-IV CHANTELL Last Admin: 03/13/19 09:53 Dose: 100 mg Fentanyl 500 mcg/ Dextrose 100 mls @ 1 mls/hr IVPB TITR CHANTELL Last Admin: 03/13/19 00:50 Dose: Not Given Norepinephrine Bitartrate 8, (000 mcg/ Dextrose) 500 mls @ 18.75 mls/hr IV ASDIR CHANTELL; Protocol Last Titration: 03/13/19 10:14 Dose: 20 mcg/min, 75 mls/hr Vasopressin 50 units/ Sodium (Chloride) 100 mls @ 4 mls/hr IVPB ASDIR CHANTELL; Protocol Last Admin: 03/13/19 06:51 Dose: Not Given Meropenem 500 mg/ Dextrose 100 mls @ 200 mls/hr IVPB DAILY CHANTELL Last Admin: 03/13/19 10:18 Dose: 200 mls/hr Sodium Chloride (Normal Saline -) 250 mls @ 3,000 mls/hr IV PRN PRN PRN Reason: Hypotension during Dialysis Stop: 03/13/19 11:29 Potassium Chloride (Potassium Chloride 10 Meq Premix Ivpb -) 10 meq in 100 mls @ 100 mls/hr IVPB Q60M [facility] Stop: 03/13/19 12:14 Insulin Aspart (Novolog Vial Sliding Scale -) 1 vial SQ Q6HPO [facility]; Protocol Levetiracetam (Keppra Injection -) 250 mg IVPB BID [facility] Midodrine (Proamatine -) 10 mg PO TID-MID [facility] Last Admin: 03/13/19 10:21 Dose: Not Given Multivitamins/Minerals/Vitamin C (Tab-A-Vit -) 1 tab PO DAILY [facility] Last Admin: 03/13/19 10:12 Dose: Not Given Pantoprazole Sodium (Protonix Iv) 40 mg IVPUSH DAILY [facility] Last Admin: 03/13/19 10:21 Dose: 40 mg Tamsulosin HCl (Flomax -) 0.4 mg PO HS [facility] Last Admin: 03/12/19 21:52 Dose: 0.4 mg - Objective Vital Signs: Vital Signs Temperature 100.1 F H 03/13/19 10:47 Pulse Rate 100 H 03/13/19 10:47 Respiratory Rate 27 H 03/13/19 10:47 Blood Pressure 110/55 L 03/13/19 10:47 O2 Sat by Pulse Oximetry (%) 100 03/13/19 07:06 Constitutional: Yes: Calm Eyes: Yes: Conjunctiva Clear HENT: Yes: Atraumatic Neck: Yes: Supple Cardiovascular: Yes: S1, S2 Respiratory: Yes: Intubated, Mechanically Ventilated Gastrointestinal: Yes: Soft Genitourinary: Yes: Incontinence Musculoskeletal: Yes: Muscle Weakness Edema: No Wound/Incision: Yes: Other (dressing in place, odor from wound) Neurological: Yes: Lethargy Labs: CBC, BMP 03/13/19 05:30 03/13/19 05:30 INR, PTT INR 1.44 (0.83-1.09) H 02/22/19 05:40 Problem List - Problems (1) ESRD (end stage renal disease) on dialysis Code(s): N18.6 - END STAGE RENAL DISEASE; Z99.2 - DEPENDENCE ON RENAL DIALYSIS Assessment/Plan Current Medications Generic Name Dose Route Start Last Admin Trade Name Freq PRN Reason Stop Dose Admin Acetaminophen 1,000 mg 03/11/19 04:18 03/12/19 01:54 Ofirmev Injection - IVPB 1,000 mg Q6H PRN Administration FEVER Amino Acids 30 ml 02/21/19 22:00 03/13/19 06:07 Prosource No Carb Liquid Pkt PO 30 ml TID CHANTELL Administration Apixaban 2.5 mg 02/21/19 22:00 03/13/19 10:20 Eliquis - PO Not Given BID CHANTELL Atorvastatin Calcium 20 mg 02/21/19 22:00 03/12/19 21:52 Lipitor - PO 20 mg HS CHANTELL Administration Collagenase 1 applic 02/22/19 10:00 03/13/19 10:13 Santyl - TP 1 applic DAILY CHANTELL Administration Protocol Escitalopram Oxalate 10 mg 02/22/19 10:00 03/13/19 10:18 Lexapro - PO Not Given DAILY CHANTELL Hydrocortisone Sodium Succinate 100 mg 03/11/19 11:00 03/13/19 09:53 Solu-Cortef - IVPB 100 mg Q8H-IV CHANTELL Administration Fentanyl 500 mcg/ Dextrose 100 mls @ 1 mls/hr 03/11/19 00:45 03/13/19 00:50 IVPB Not Given TITR CHANTELL 5 MCG/HR Norepinephrine Bitartrate 8, 500 mls @ 18.75 mls/hr 03/11/19 05:58 03/13/19 10:14 000 mcg/ Dextrose IV 20 mcg/min ASDIR CHANTELL 75 mls/hr Titration Protocol 5 MCG/MIN Vasopressin 50 units/ Sodium 100 mls @ 4 mls/hr 03/11/19 06:30 03/13/19 06:51 Chloride IVPB Not Given ASDIR CHANTELL Protocol 2 UNITS/HR Meropenem 500 mg/ Dextrose 100 mls @ 200 mls/hr 03/11/19 10:00 03/13/19 10:18 IVPB 200 mls/hr DAILY CHANTELL Administration Sodium Chloride 250 mls @ 3,000 mls/hr 03/12/19 11:30 Normal Saline - IV 03/13/19 11:29 PRN PRN Hypotension during Dialysis Potassium Chloride 10 meq in 100 mls @ 100 mls/hr 03/13/19 11:15 Potassium Chloride 10 Meq Premix Ivpb - IVPB 03/13/19 12:14 Q60M CHANTELL Insulin Aspart 1 vial 03/13/19 12:00 Novolog Vial Sliding Scale - SQ Q6HPO [facility] Protocol Levetiracetam 250 mg 03/13/19 22:00 Keppra Injection - IVPB BID CHANTELL Midodrine 10 mg 03/02/19 14:00 03/13/19 10:21 Proamatine - PO Not Given TID-MID CHANTELL Multivitamins/Minerals/Vitamin C 1 tab 02/22/19 10:00 03/13/19 10:12 Tab-A-Vit - PO Not Given DAILY CHANTELL Pantoprazole Sodium 40 mg 03/05/19 12:00 03/13/19 10:21 Protonix Iv IVPUSH 40 mg DAILY CHANTELL Administration Tamsulosin HCl 0.4 mg 02/21/19 22:00 03/12/19 21:52 Flomax - PO 0.4 mg HS CHANTELL Administration Impression 1. ESRD 2. gangrene 3. DM 4. hyperlipidemia 5. HTN 6. gout 7. proteinuria 8. hypotension 9. sepsis 10. resp failure 11. GI bleed Plan - replace potassium and mag - check albumin and correct for calcium - replace calcium if low - discussed with ICU - will evaluate for HD tomorrow - pt doing poorly - abx per ID - nepro for feeds
--- NOTE | 2019-03-13 12:29 | PN ---
Teaching Attending Note Name of Resident: Gualberto Eagle ATTENDING PHYSICIAN STATEMENT I saw and evaluated the patient. I reviewed the resident's note and discussed the case with the resident. I agree with the resident's findings and plan as documented. SUBJECTIVE: Pt seen and examined in the ICU. Remains intubated, sedated on lower dose levophed gtt and vasopressin. Family contact issues noted. OBJECTIVE: Vital Signs Period Temp Pulse Resp BP Sys/Zamorano Pulse Ox Last 24 Hr 98.2 F-100.1 F 82-127 18-29 110-145/55-80 100-100 Intake & Output 03/10/19 03/11/19 03/12/19 03/13/19 23:59 23:59 23:59 23:59 Intake Total 1933 4617.8 3098 910 Output Total 0 0 500 Balance 3 4617.8 2598 910 Weight 71.1 kg 73.9 kg 79.061 kg 74.571 kg Gen: intubated, sedated Heart: RRR Lung: scattered rhonchi Abd: soft, nontender Ext: wrapped, malodorous CBC, BMP 03/13/19 05:30 03/13/19 05:30 Active Medications Acetaminophen (Ofirmev Injection -) 1,000 mg IVPB Q6H PRN PRN Reason: FEVER Last Admin: 03/12/19 01:54 Dose: 1,000 mg Amino Acids (Prosource No Carb Liquid Pkt) 30 ml PO TID [facility] Last Admin: 03/13/19 06:07 Dose: 30 ml Apixaban (Eliquis -) 2.5 mg PO BID [facility] Last Admin: 03/13/19 10:20 Dose: Not Given Atorvastatin Calcium (Lipitor -) 20 mg PO HS [facility] Last Admin: 03/12/19 21:52 Dose: 20 mg Collagenase (Santyl -) 1 applic TP DAILY [facility]; Protocol Last Admin: 03/13/19 10:13 Dose: 1 applic Escitalopram Oxalate (Lexapro -) 10 mg PO DAILY [facility] Last Admin: 03/13/19 10:18 Dose: Not Given Hydrocortisone Sodium Succinate (Solu-Cortef -) 100 mg IVPB Q8H-IV CHANTELL Last Admin: 03/13/19 09:53 Dose: 100 mg Fentanyl 500 mcg/ Dextrose 100 mls @ 1 mls/hr IVPB TITR [facility] Last Admin: 03/13/19 00:50 Dose: Not Given Norepinephrine Bitartrate 8, (000 mcg/ Dextrose) 500 mls @ 18.75 mls/hr IV ASDIR CHANTELL; Protocol Last Titration: 03/13/19 10:14 Dose: 20 mcg/min, 75 mls/hr Vasopressin 50 units/ Sodium (Chloride) 100 mls @ 4 mls/hr IVPB ASDIR CHANTELL; Protocol Last Admin: 03/13/19 06:51 Dose: Not Given Meropenem 500 mg/ Dextrose 100 mls @ 200 mls/hr IVPB DAILY CHANTELL Last Admin: 03/13/19 10:18 Dose: 200 mls/hr Insulin Aspart (Novolog Vial Sliding Scale -) 1 vial SQ Q6HPO CHANTELL; Protocol Midodrine (Proamatine -) 10 mg PO TID-MID CHANTELL Last Admin: 03/13/19 10:21 Dose: Not Given Multivitamins/Minerals/Vitamin C (Tab-A-Vit -) 1 tab PO DAILY CHANTELL Last Admin: 03/13/19 10:12 Dose: Not Given Pantoprazole Sodium (Protonix Iv) 40 mg IVPUSH DAILY CHANTELL Last Admin: 03/13/19 10:21 Dose: 40 mg Tamsulosin HCl (Flomax -) 0.4 mg PO HS CHANTELL Last Admin: 03/12/19 21:52 Dose: 0.4 mg ASSESSMENT AND PLAN: Acute Hypoxic Respiratory Failure Pneumonia suspect Aspiration ESBL E coli Bacteremia Septic Shock Bilateral Feet Gangrene Infected Decubitus Ulcers ESRD on HD DM HTN Hyperlipidemia h/o CVA - continue antibiotics per ID - f/u cultures - continue midodrine - taper pressors to maintain MAP >65 - monitor H/H - local wound care - HD per renal - aspiration precautions - DVT prophylaxis - continue efforts to discuss medical condition and prognosis with next of kin - given overall poor condition, current medical condition, and 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
--- NOTE | 2019-03-13 18:32 | PN ---
Physical Exam: SUBJECTIVE: Patient seen and examined OBJECTIVE: Vital Signs Period Temp Pulse Resp BP Sys/Zamorano Pulse Ox Last 24 Hr 98.2 F-100.1 F 75-127 15-29 100-145/52-80 100-100 GENERAL: The patient is awake, alert, and fully oriented, in no acute distress. HEAD: Normal with no signs of trauma. EYES: PERRL, extraocular movements intact, sclera anicteric, conjunctiva clear. No ptosis. ENT: Ears normal, nares patent, oropharynx clear without exudates, moist mucous membranes. NECK: Trachea midline, full range of motion, supple. LUNGS: Breath sounds equal, clear to auscultation bilaterally, no wheezes, no crackles, no accessory muscle use. HEART: Regular rate and rhythm, S1, S2 without murmur, rub or gallop. ABDOMEN: Soft, nontender, nondistended, normoactive bowel sounds, no guarding, no rebound, no hepatosplenomegaly, no masses. EXTREMITIES: 2+ pulses, warm, well-perfused, no edema. NEUROLOGICAL: Cranial nerves II through XII grossly intact. Normal speech, gait not observed. PSYCH: Normal mood, normal affect. SKIN: Warm, dry, normal turgor, no rashes or lesions noted Laboratory Results - last 24 hr 03/13/19 03/13/19 03/13/19 05:30 05:30 05:30 WBC 15.5 H RBC 2.57 L Hgb 7.6 L Hct 24.5 L MCV 95.2 MCH 29.8 MCHC 31.3 L RDW 19.8 H Plt Count 187 D MPV 9.4 Absolute Neuts (auto) 12.9 H Neutrophils % 83.6 H Lymphocytes % 12.4 D Monocytes % 3.5 L Eosinophils % 0.0 D Basophils % 0.5 Nucleated RBC % 0 Sodium 132 L Potassium 3.2 L Chloride 96 L Carbon Dioxide 26 Anion Gap 11 BUN 15.3 Creatinine 2.0 H Est GFR (CKD-EPI)AfAm 37.01 Est GFR (CKD-EPI)NonAf 31.93 POC Glucometer Random Glucose 206 H Calcium 6.6 L* Phosphorus 2.6 Magnesium 1.7 L Random Vancomycin 8.0 L 03/13/19 03/13/19 03/13/19 06:39 13:06 17:13 WBC RBC Hgb Hct MCV MCH MCHC RDW Plt Count MPV Absolute Neuts (auto) Neutrophils % Lymphocytes % Monocytes % Eosinophils % Basophils % Nucleated RBC % Sodium Potassium Chloride Carbon Dioxide Anion Gap BUN Creatinine Est GFR (CKD-EPI)AfAm Est GFR (CKD-EPI)NonAf POC Glucometer 226 172 151 Random Glucose Calcium Phosphorus Magnesium Random Vancomycin Active Medications Generic Name Dose Route Start Last Admin Trade Name Freq PRN Reason Stop Dose Admin Acetaminophen 1,000 mg 03/11/19 04:18 03/12/19 01:54 Ofirmev Injection - IVPB 1,000 mg Q6H PRN Administration FEVER Amino Acids 30 ml 02/21/19 22:00 03/13/19 14:43 Prosource No Carb Liquid Pkt PO Not Given TID CHANTELL Apixaban 2.5 mg 02/21/19 22:00 03/13/19 10:20 Eliquis - PO Not Given BID CHANTELL Atorvastatin Calcium 20 mg 02/21/19 22:00 03/12/19 21:52 Lipitor - PO 20 mg HS CHANTELL Administration Collagenase 1 applic 02/22/19 10:00 03/13/19 10:13 Santyl - TP 1 applic DAILY CHANTELL Administration Protocol Escitalopram Oxalate 10 mg 02/22/19 10:00 03/13/19 10:18 Lexapro - PO Not Given DAILY CHANTELL Hydrocortisone Sodium Succinate 100 mg 03/11/19 11:00 03/13/19 09:53 Solu-Cortef - IVPB 100 mg Q8H-IV CHANTELL Administration Fentanyl 500 mcg/ Dextrose 100 mls @ 1 mls/hr 03/11/19 00:45 03/13/19 00:50 IVPB Not Given TITR CHANTELL 5 MCG/HR Norepinephrine Bitartrate 8, 500 mls @ 18.75 mls/hr 03/11/19 05:58 03/13/19 12:15 000 mcg/ Dextrose IV 8 mcg/min ASDIR CHANTELL 30 mls/hr Titration Protocol 5 MCG/MIN Vasopressin 50 units/ Sodium 100 mls @ 4 mls/hr 03/11/19 06:30 03/13/19 06:51 Chloride IVPB Not Given ASDIR CHANTELL Protocol 2 UNITS/HR Meropenem 500 mg/ Dextrose 100 mls @ 200 mls/hr 03/11/19 10:00 03/13/19 10:18 IVPB 200 mls/hr DAILY CHANTELL Administration Insulin Aspart 1 vial 03/13/19 12:00 03/13/19 13:15 Novolog Vial Sliding Scale - SQ Not Given Q6HPO [facility] Protocol Midodrine 10 mg 03/02/19 14:00 03/13/19 14:43 Proamatine - PO Not Given TID-MID CHANTELL Multivitamins/Minerals/Vitamin C 1 tab 02/22/19 10:00 03/13/19 10:12 Tab-A-Vit - PO Not Given DAILY CHANTELL Pantoprazole Sodium 40 mg 03/05/19 12:00 03/13/19 10:21 Protonix Iv IVPUSH 40 mg DAILY CHANTELL Administration Tamsulosin HCl 0.4 mg 02/21/19 22:00 03/12/19 21:52 Flomax - PO 0.4 mg HS CHANTELL Administration ASSESSMENT/PLAN:
[2019-03-13] MEDS: TAMSULOSIN HCL 0.4 MG CAP PO SCH (21:47)
[2019-03-13] MEDS: ATORVASTATIN CA 20 MG TABLET (FP) PO SCH (21:47)
[2019-03-13] MEDS ORDERED: levETIRAcetam 500 MG/5 ML INJECTION VIAL IVPB SCH (22:00)
[2019-03-14] MEDS ORDERED: fentaNYL CITRATE 250 MCG/5 ML VIAL ONE (00:25)
[2019-03-14] MEDS: INSULIN SLIDING SCALE (NOVOLOG) 1 VIAL SQ SCH ×4 (01:00→17:47)
[2019-03-14] MEDS: HYDROCORTISONE SOD SUCCINATE 100 MG/2 ML VIAL IVPB SCH ×3 (02:00→18:29)
[2019-03-14 06:07] LABS: BASO % 0.4 % (0-2.0); EOS % 0.1 % (0-4.5); HEMATOCRIT 22.3 % (35.4-49); LYMPH % 12.4 % (8-40); MCH 29.6 pg (25.7-33.7); MCHC 31.3 g/dl (32.0-35.9); MEAN CELL VOLUME 94.8 fl (80-96); MEAN PLT VOLUME 9.1 fl (7.5-11.1); MONO % 4.5 % (3.8-10.2); NEUT % 82.6 % (42.8-82.8); PLATELET COUNT 134 K/MM3 (134-434); RBC 2.36 M/mm3 (4.00-5.60); RDW 19.9 % (11.9-15.9); WHITE BLOOD COUNT 12.3 K/mm3 (4.0-10.0)
[2019-03-14 06:33] LABS: BLOOD UREA NITROGEN 21.8 mg/dL (7-18); CREATININE 2.3 mg/dL (0.55-1.3); MAGNESIUM 2.1 mg/dL (1.8-2.4); PHOSPHOROUS 3.8 mg/dL (2.5-4.9); POTASSIUM 3.2 mmol/L (3.5-5.1)
[2019-03-14 06:36] LABS: CALCIUM 6.8 mg/dL (8.5-10.1)
--- NOTE | 2019-03-14 06:42 | PN ---
Physical Exam: SUBJECTIVE: Patient seen and examined in ICU. intubated sedated on pressors x2 w/ stress steroids in septic shock. GOC/ethics meeting ongoing OBJECTIVE: Vital Signs Period Temp Pulse Resp BP Sys/Zamorano Pulse Ox Last 24 Hr 97.9 F-100.1 F 69-127 10-29 100-145/52-80 100-100 GENERAL: intubated sedated. thin appearing, decreased muscle mass and fat EARS, NOSE, THROAT: dry mucous membranes. LUNGS: CTAB HEART: irregularly irregular s1s2 normal ABDOMEN: Soft, NTND normoactive bowel sounds, ulcer present on sacrum unstagable with foul discharge, scrotum has ulcer no discharge MUSCULOSKELETAL: Normal range of motion at all joints. No bony deformities or tenderness. No CVA tenderness. UPPER EXTREMITIES: 2+ pulses, warm, well-perfused. +edema LOWER EXTREMITIES: b/l wet gangrene with fouls smelling discharge SKIN: Warm, dry, Neuo: intubated sedated. no apparent gag reflex today, sluggish pupils, non responsive to pain or voice Laboratory Results - last 24 hr 03/13/19 03/13/19 03/13/19 05:30 05:30 06:39 Sodium 132 L Potassium 3.2 L Chloride 96 L Carbon Dioxide 26 Anion Gap 11 BUN 15.3 Creatinine 2.0 H Est GFR (CKD-EPI)AfAm 37.01 Est GFR (CKD-EPI)NonAf 31.93 POC Glucometer 226 Random Glucose 206 H Calcium 6.6 L* Phosphorus 2.6 Magnesium 1.7 L Random Vancomycin 8.0 L 03/13/19 03/13/19 03/14/19 13:06 17:13 02:33 Sodium Potassium Chloride Carbon Dioxide Anion Gap BUN Creatinine Est GFR (CKD-EPI)AfAm Est GFR (CKD-EPI)NonAf POC Glucometer 172 151 146 Random Glucose Calcium Phosphorus Magnesium Random Vancomycin 03/14/19 03/14/19 05:44 05:45 Sodium 129 L Potassium 3.2 L Chloride 94 L Carbon Dioxide 24 Anion Gap 11 BUN 21.8 H Creatinine 2.3 H Est GFR (CKD-EPI)AfAm 31.25 Est GFR (CKD-EPI)NonAf 26.97 POC Glucometer 145 Random Glucose 155 H Calcium 6.8 L* Phosphorus 3.8 Magnesium 2.1 Random Vancomycin Active Medications Generic Name Dose Route Start Last Admin Trade Name Freq PRN Reason Stop Dose Admin Acetaminophen 1,000 mg 03/11/19 04:18 03/12/19 01:54 Ofirmev Injection - IVPB 1,000 mg Q6H PRN Administration FEVER Amino Acids 30 ml 02/21/19 22:00 03/13/19 21:47 Prosource No Carb Liquid Pkt PO Not Given TID CHANTELL Apixaban 2.5 mg 02/21/19 22:00 03/13/19 21:46 Eliquis - PO Not Given BID CHANTELL Atorvastatin Calcium 20 mg 02/21/19 22:00 03/13/19 21:47 Lipitor - PO Not Given HS CHANTELL Collagenase 1 applic 02/22/19 10:00 03/13/19 10:13 Santyl - TP 1 applic DAILY CHANTELL Administration Protocol Escitalopram Oxalate 10 mg 02/22/19 10:00 03/13/19 10:18 Lexapro - PO Not Given DAILY CHANTELL Hydrocortisone Sodium Succinate 100 mg 03/11/19 11:00 03/14/19 02:00 Solu-Cortef - IVPB 100 mg Q8H-IV CHANTELL Administration Fentanyl 500 mcg/ Dextrose 100 mls @ 1 mls/hr 03/11/19 00:45 03/13/19 20:17 IVPB 25 mcg/hr TITR CHANTELL 5 mls/hr Titration 5 MCG/HR Norepinephrine Bitartrate 8, 500 mls @ 18.75 mls/hr 03/11/19 05:58 03/13/19 12:15 000 mcg/ Dextrose IV 8 mcg/min ASDIR CHANTELL 30 mls/hr Titration Protocol 5 MCG/MIN Vasopressin 50 units/ Sodium 100 mls @ 4 mls/hr 03/11/19 06:30 03/13/19 06:51 Chloride IVPB Not Given ASDIR CHANTELL Protocol 2 UNITS/HR Meropenem 500 mg/ Dextrose 100 mls @ 200 mls/hr 03/11/19 10:00 03/13/19 10:18 IVPB 200 mls/hr DAILY CHANTELL Administration Insulin Aspart 1 vial 03/13/19 12:00 03/14/19 01:00 Novolog Vial Sliding Scale - SQ Not Given Q6HPO CHANTELL Protocol Midodrine 10 mg 03/02/19 14:00 03/13/19 19:15 Proamatine - PO Not Given TID-MID CHANTELL Multivitamins/Minerals/Vitamin C 1 tab 02/22/19 10:00 03/13/19 10:12 Tab-A-Vit - PO Not Given DAILY [facility] Pantoprazole Sodium 40 mg 03/05/19 12:00 03/13/19 10:21 Protonix Iv IVPUSH 40 mg DAILY [facility] Administration Tamsulosin HCl 0.4 mg 02/21/19 22:00 03/13/19 21:47 Flomax - PO Not Given HS [facility] ASSESSMENT/PLAN: 73 yo M PMH dementia, CVA, DM, COPD, ESRD, gout, HTN, HLP, recent admission 01/31- 02/19 during which he was treated for sepsis due to infected b/l feet ulcers/ gangrene. He was sent form NH due to poor po intake, and worsening of ulcers. Now in septic shock 2/2 DM gangrenous B/L feet infx, Infected sacral decub and scrotal ulcer, and GN bacteremia , requiring ICU and pressors #septic shock 2/2 DM gangrenous B/L feet infx, Infected sacral decub and scrotal ulcer, and GN bacteremia (proteus, prevotella) - requiring ICU and pressors. Now w/ hypoxic respiratory failure possibly 2/2 developing aspiration PNA (aspirated over the weekend) requiring intubation/sedation. CXR 03/11 shows questionable infiltrate L base. +Leukocytosis. afebrile now for >24hr -old cx with E coli, ESBL, MRSA, and VRE. -contact isolation for MDRO -s/p Vanc and Zosyn in the ED, Gentamicin x1, Meropenem x2 in ICU -Bcx 02/21/19 growing GN cher - proteus and prevotella -ucx neg -wound cx E coli, morganella -Bcx 02/23/19 neg -03/11/19 sputum cx MRSA, pseudomonas A,ecoli esbl, acinetobacter ; bcx ecoli esbl bacteremia. -ID consulted, Rangel -lactic acid resolved -palliative care consulted -s/p CTX 2g/flagyl, c/w Meropenem day #20 total abx, ID recs appreciated. -s/p vanc and gentamicin x1 yesterday per ID -Aspiration precautions. -c/w Levophed 8, vasopressin 6, stress steroids. Titrate pressors to keep MAP>65 -fentanyl 25mcg for comfort and sedation -vascular surgery consulted, Dr harry, for wound care. amputation indicated, but family not amenable. cont GOC #Seizure-like myoclonus 03/12/19 - noted overnight. resolved w/ ativan 1mg and loaded w/ keppra. see Dr Overton note for further details c/w keppra 250 bid #ESRD on HD (MWF) -nephro consulted (Dr. Henriquez) -HD as per nephvito marino held by nephro for low phos. #Acute on chronic anemia likely 2/2 ESRD -monitor H/H #Severe protein calorie malnutrition -albumin 1.1, prealbumin 3.5 -thin appearing, decreased muscle mass and fat -decreased overall PO intake -Magic cup, Ensure pudding for increased density of nutritional intake. Now on NGT while intubated #COPD -keep SpO2>90% -Duonebs q6h PRN #Dm ISS BGM ACHS #H/o hypotension : c/w home midodrine monitor vitals # h/o afib c/w elequis 2.5 bid #FEN -Not on any standing fluids -replete prn -NGT on tube feeds #Prophylaxis -Eliquis 2.5mg BID -Protonix IV while on AC and pressors -bacid #Disposition -full code -GOC/ethics consult placed, as we have attempted multiple times to contact daughter who has not been responsive and in the past has not been amenable to to allow for source control/amputation and standard of care. given patients inability to make decisions for himself and daughter unwillingness pt will likely cont to suffer w/o improvement and has spoor prognosis. multiple times various members of primary team and ICU team have tried contacting daughter and brother for GOC/ethics meeting. Resident Dr Milton was able to make contact w/ daughter but no meaningful discussion was able to take place, please see Dr Milton note for further detail. brother has been contacted and has spoken w/ palliative. daughter will not be coming, This may constitute pt abandonment. palliative trying to contact pt other children/NOK -given overall poor prognosis, conservative measures and comfort care may be appropriate -ICU monitoring Visit type - Emergency Visit Emergency Visit: Yes ED Registration Date: 02/21/19 Care time: The patient presented to the Emergency Department on the above date and was hospitalized for further evaluation of their emergent condition. - New Patient This patient is new to me today: Yes Date on this admission: 03/14/19 - Critical Care Critical Care patient: Yes Total Critical Care Time (in minutes): 40 Critical Care Statement: The care of this patient involved high complexity decision making to prevent further life threatening deterioration of the patient 's condition and/or to evaluate & treat vital organ system(s) failure or risk of failure.
[2019-03-14 06:48] LABS: ALBUMIN 1.1 g/dl (3.4-5.0)
[2019-03-14] MEDS: NOREPINEPHRINE BITARTRATE 8,000 MCG in DEXTROSE 5%-WATER - 492 ML IV SCH (06:50)
[2019-03-14] MEDS: FENTANYL INJECTION 500 MCG in DEXTROSE 5%-WATER - 90 ML IVPB SCH (06:50)
[2019-03-14] MEDS: VASOPRESSIN 50 UNITS in SODIUM CHLORIDE 97.5 ML IVPB SCH ×2 (06:55→13:38)
[2019-03-14] MEDS: AMINO ACIDS/PROTEIN HYDROLYS 30 ML LIQUID.PKT PO SCH ×3 (06:55→21:35)
[2019-03-14] MEDS: APIXABAN 2.5 MG TABLET PO SCH ×2 (09:14→21:35)
[2019-03-14] MEDS: ESCITALOPRAM OXALATE 10 MG TABLET (FP) PO SCH (09:14)
[2019-03-14] MEDS: MULTIVITAMINS (DAILY MVI) TABLET (FP) PO SCH (09:15)
[2019-03-14] MEDS: MIDODRINE HCL 5 MG TABLET PO SCH ×3 (09:15→18:36)
[2019-03-14 09:51] LABS: ANISOCYTOSIS 2+; MACROCYTOSIS 1+; PLATELET ESTIMATE DECREASED
[2019-03-14] MEDS: COLLAGENASE CLOSTRIDIUM HIST. 30 GRAMS TUBE TP SCH (09:54)
[2019-03-14] MEDS: PANTOPRAZOLE SODIUM 40 MG VIAL IVPUSH SCH ×2 (09:54→22:47)
--- NOTE | 2019-03-14 10:57 | PN ---
Teaching Attending Note Name of Resident: Gualberto Eagle ATTENDING PHYSICIAN STATEMENT I saw and evaluated the patient. I reviewed the resident's note and discussed the case with the resident. I agree with the resident's findings and plan as documented. SUBJECTIVE: Patient seen and examined in the ICU. Remains intubated and sedated. 8 mcq NE and 6 units vasopressin for hemodynamic support. Still with issues contacting NOK. OBJECTIVE: Intake & Output 03/11/19 03/12/19 03/13/19 03/14/19 23:59 23:59 23:59 23:59 Intake Total 4617.8 3098 2619 554.6 Output Total 0 500 0 0 Balance 4617.8 2598 2619 554.6 Weight 162 lb 14.746 oz 174 lb 4.8 oz 164 lb 6.4 oz 177 lb 11.081 oz Last Vital Signs Temp Pulse Resp BP Pulse Ox 98 F 88 19 97/57 L 100 03/14/19 10:00 03/14/19 10:00 03/14/19 10:00 03/14/19 10:00 03/14/19 08:14 Active Medications Acetaminophen (Ofirmev Injection -) 1,000 mg IVPB Q6H PRN PRN Reason: FEVER Last Admin: 03/12/19 01:54 Dose: 1,000 mg Amino Acids (Prosource No Carb Liquid Pkt) 30 ml PO TID [facility] Last Admin: 03/14/19 06:55 Dose: Not Given Apixaban (Eliquis -) 2.5 mg PO BID [facility] Last Admin: 03/14/19 09:14 Dose: Not Given Atorvastatin Calcium (Lipitor -) 20 mg PO HS [facility] Last Admin: 03/13/19 21:47 Dose: Not Given Collagenase (Santyl -) 1 applic TP DAILY CHANTELL; Protocol Last Admin: 03/14/19 09:54 Dose: 1 applic Escitalopram Oxalate (Lexapro -) 10 mg PO DAILY [facility] Last Admin: 03/14/19 09:14 Dose: Not Given Hydrocortisone Sodium Succinate (Solu-Cortef -) 100 mg IVPB Q8H-IV CHANTELL Last Admin: 03/14/19 09:54 Dose: 100 mg Fentanyl 500 mcg/ Dextrose 100 mls @ 1 mls/hr IVPB TITR CHANTELL Last Admin: 03/14/19 06:50 Dose: 25 mcg/hr, 5 mls/hr Norepinephrine Bitartrate 8, (000 mcg/ Dextrose) 500 mls @ 18.75 mls/hr IV ASDIR CHANTELL; Protocol Last Admin: 03/14/19 06:50 Dose: 8 mcg/min, 30 mls/hr Vasopressin 50 units/ Sodium (Chloride) 100 mls @ 4 mls/hr IVPB ASDIR CHANTELL; Protocol Last Admin: 03/14/19 06:55 Dose: 6 units/hr, 12 mls/hr Meropenem 500 mg/ Dextrose 100 mls @ 200 mls/hr IVPB DAILY CHANTELL Last Admin: 03/13/19 10:18 Dose: 200 mls/hr Potassium Chloride (Potassium Chloride 10 Meq Premix Ivpb -) 10 meq in 100 mls @ 100 mls/hr IVPB Q60M CHANTELL Stop: 03/14/19 12:44 Insulin Aspart (Novolog Vial Sliding Scale -) 1 vial SQ Q6HPO CHANTELL; Protocol Last Admin: 03/14/19 06:51 Dose: Not Given Midodrine (Proamatine -) 10 mg PO TID-MID CHANTELL Last Admin: 03/14/19 09:15 Dose: Not Given Multivitamins/Minerals/Vitamin C (Tab-A-Vit -) 1 tab PO DAILY CHANTELL Last Admin: 03/14/19 09:15 Dose: Not Given Pantoprazole Sodium (Protonix Iv) 40 mg IVPUSH DAILY CHANTELL Last Admin: 03/14/19 09:54 Dose: 40 mg Tamsulosin HCl (Flomax -) 0.4 mg PO HS CHANTELL Last Admin: 03/13/19 21:47 Dose: Not Given Gen: intubated, sedated Heart: RRR Lung: scattered rhonchi Abd: soft, nontender Ext: wrapped, malodorous Laboratory Results - last 24 hr 03/13/19 03/13/19 03/13/19 06:39 13:06 17:13 WBC RBC Hgb Hct MCV MCH MCHC RDW Plt Count MPV Absolute Neuts (auto) Neutrophils % Neutrophils % (Manual) Band Neutrophils % Lymphocytes % Lymphocytes % (Manual) Monocytes % Monocytes % (Manual) Eosinophils % Eosinophils % (Manual) Basophils % Basophils % (Manual) Myelocytes % (Man) Promyelocytes % (Man) Blast Cells % (Manual) Nucleated RBC % Metamyelocytes Hypochromia Platelet Estimate Polychromasia Poikilocytosis Anisocytosis Microcytosis Macrocytosis Stomatocytes Sodium Potassium Chloride Carbon Dioxide Anion Gap BUN Creatinine Est GFR (CKD-EPI)AfAm Est GFR (CKD-EPI)NonAf POC Glucometer 226 172 151 Random Glucose Calcium Phosphorus Magnesium Albumin 03/14/19 03/14/19 03/14/19 02:33 05:44 05:45 WBC 12.3 H RBC 2.36 L Hgb 7.0 L Hct 22.3 L MCV 94.8 MCH 29.6 MCHC 31.3 L RDW 19.9 H Plt Count 134 D MPV 9.1 Absolute Neuts (auto) 10.2 H Neutrophils % 82.6 Neutrophils % (Manual) 79.0 D Band Neutrophils % 0.0 Lymphocytes % 12.4 Lymphocytes % (Manual) 15.0 Monocytes % 4.5 Monocytes % (Manual) 6 Eosinophils % 0.1 D Eosinophils % (Manual) 0.0 D Basophils % 0.4 Basophils % (Manual) 0.0 Myelocytes % (Man) 0 Promyelocytes % (Man) 0 Blast Cells % (Manual) 0 Nucleated RBC % 1 H Metamyelocytes 0 D Hypochromia 0 Platelet Estimate Decreased Polychromasia 1+ Poikilocytosis 2+ Anisocytosis 2+ Microcytosis 2+ Macrocytosis 1+ Stomatocytes 2+ Sodium Potassium Chloride Carbon Dioxide Anion Gap BUN Creatinine Est GFR (CKD-EPI)AfAm Est GFR (CKD-EPI)NonAf POC Glucometer 146 145 Random Glucose Calcium Phosphorus Magnesium Albumin 03/14/19 05:45 WBC RBC Hgb Hct MCV MCH MCHC RDW Plt Count MPV Absolute Neuts (auto) Neutrophils % Neutrophils % (Manual) Band Neutrophils % Lymphocytes % Lymphocytes % (Manual) Monocytes % Monocytes % (Manual) Eosinophils % Eosinophils % (Manual) Basophils % Basophils % (Manual) Myelocytes % (Man) Promyelocytes % (Man) Blast Cells % (Manual) Nucleated RBC % Metamyelocytes Hypochromia Platelet Estimate Polychromasia Poikilocytosis Anisocytosis Microcytosis Macrocytosis Stomatocytes Sodium 129 L Potassium 3.2 L Chloride 94 L Carbon Dioxide 24 Anion Gap 11 BUN 21.8 H Creatinine 2.3 H Est GFR (CKD-EPI)AfAm 31.25 Est GFR (CKD-EPI)NonAf 26.97 POC Glucometer Random Glucose 155 H Calcium 6.8 L* Phosphorus 3.8 Magnesium 2.1 Albumin 1.1 L ASSESSMENT AND PLAN: Acute Hypoxic Respiratory Failure Pneumonia suspect Aspiration ESBL E coli Bacteremia Septic Shock Bilateral Feet Gangrene Infected Decubitus Ulcers ESRD on HD DM HTN Hyperlipidemia h/o CVA - continue antibiotics per ID - continue midodrine - taper pressors to maintain MAP >65 - monitor H/H - local wound care - HD per renal - aspiration precautions - DVT prophylaxis - continue efforts to discuss medical condition and prognosis with next of kin - given overall poor condition, current medical condition, and overall poor terminal worker outcome, recommend palliative care - continue ICU monitoring Dr Palmer Critical care time spent in reviewing chart, evaluating patient and formulating plan 36 min
[2019-03-14] MEDS: KCL 10 MEQ IVPB 10 MEQ/100 ML INFUS.BAG IVPB SCH ×2 (11:08→13:30)
[2019-03-14 12:04] LABS: HEMATOCRIT 22.5 % (35.4-49); MCH 29.5 pg (25.7-33.7); MCHC 30.8 g/dl (32.0-35.9); MEAN CELL VOLUME 95.8 fl (80-96); MEAN PLT VOLUME 9.6 fl (7.5-11.1); PLATELET COUNT 128 K/MM3 (134-434); RBC 2.34 M/mm3 (4.00-5.60); RDW 19.6 % (11.9-15.9); WHITE BLOOD COUNT 12.4 K/mm3 (4.0-10.0)
[2019-03-14 12:15] LABS: HEMOGLOBIN 6.9 GM/dL (11.7-16.9)
[2019-03-14] MEDS ORDERED: VASOPRESSIN 20 UNITS/ML VIAL IV ONE (13:33)
[2019-03-14] MEDS ORDERED: AMIODARONE HCL 150 MG/3 ML VIAL IVPUSH ONE (14:30)
--- NOTE | 2019-03-14 15:02 | PN ---
Progress Note (short form) - Note Progress Note: intubated on two pressors Vital Signs Period Temp Pulse Resp BP Sys/Zamorano Pulse Ox Last 24 Hr 97.9 F-98 F 69-126 10-24 90-110/55-77 100-100 cor-rrr lungs decreased bs at bases abd soft,nt ext +edema contracted, +dressings CBC, BMP 03/14/19 11:27 03/14/19 05:45 Microbiology 03/11/19 10:15 Sputum - Endotrachea Suction/Ventilator Gram Stain - Final 03/11/19 10:15 Sputum - Endotrachea Suction/Ventilator Sputum Culture - Final S Aureus Escherichia Coli Esbl Circuit [employer] Inspector Acinetobacter Baumannii/Haemol Pseudomonas Aeruginosa 03/11/19 05:30 Blood - Peripheral Venous Blood Culture - Preliminary NO GROWTH OBTAINED AFTER 72 HOURS, INCUBATION TO CONTINUE FOR 2 DAYS. 03/11/19 06:45 Blood - Peripheral Venous Blood Culture - Final Escherichia Coli Esbl Circuit Board Inspector 02/23/19 11:50 Blood - Peripheral Venous Blood Culture - Final NO GROWTH AFTER 5 DAYS INCUBATION 02/23/19 11:50 Blood - Peripheral Venous Blood Culture - Final NO GROWTH AFTER 5 DAYS INCUBATION 02/21/19 13:16 Blood - Peripheral Venous Blood Culture - Final Proteus Mirabilis Prevotella Melaninogenica 02/21/19 16:30 Foot - Left Heel Gram Stain - Final 02/21/19 16:30 Foot - Left Heel Wound Culture - Final Escherichia Coli Esbl Circuit Board Inspector Morganella Morganii 02/21/19 15:40 Blood - Peripheral Venous Blood Culture - Final Proteus Mirabilis 02/21/19 14:50 Urine - Urine - Catheterized Urine Culture - Final NO GROWTH OBTAINED a/p septic shock GNR bacteremia-ecoli esbl bacteremia- continue meropenem suspected secondary to gangrenous legs esrd/hd overall prognosis is poor still trying to reach family ethics committee involved continue meropenem, MDRO- strict contact isolation dedicated equipment Problem List - Problems (1) Gram negative sepsis Code(s): A41.50 - GRAM-NEGATIVE SEPSIS, UNSPECIFIED (2) Gangrene of both feet Code(s): I96 - GANGRENE, NOT ELSEWHERE CLASSIFIED (3) ESRD (end stage renal disease) on dialysis Code(s): N18.6 - END STAGE RENAL DISEASE; Z99.2 - DEPENDENCE ON RENAL DIALYSIS (4) MRSA (methicillin resistant 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 coli carrier Code(s): Z22.39 - CARRIER OF OTHER SPECIFIED BACTERIAL DISEASES (6) VRE (vancomycin-resistant Enterococci) Code(s): A49.1 - STREPTOCOCCAL INFECTION, UNSPECIFIED SITE; Z16.21 - RESISTANCE TO VANCOMYCIN
[2019-03-14] MEDS ORDERED: POTASSIUM CHLORIDE 20 MEQ PREMIX IVPB 100 ML IVPB ONE (15:09)
--- NOTE | 2019-03-14 15:17 | PN ---
Physical Exam: SUBJECTIVE: Patient seen and examined at bedside. Vented and on pressors Levo 8 mcq and Vasop of 6 with Fentanyl for sedation. Pt continues to be unresponsive to noxious stimuli OBJECTIVE: Vital Signs Period Temp Pulse Resp BP Sys/Zamorano Pulse Ox Last 24 Hr 97.9 F-98 F 69-126 10-24 90-110/55-77 100-100 GENERAL: The patient is intubated and sedated. No response to noxious stimuli HEAD: Normal with no signs of trauma. EYES: PERRL, extraocular movements intact, sclera anicteric, conjunctiva clear. No ptosis. ENT: Ears normal, nares patent, oropharynx clear without exudates, moist mucous membranes. NECK: Trachea midline, full range of motion, supple. LUNGS: Breath sounds equal, clear to auscultation bilaterally, no wheezes, no crackles, no accessory muscle use. HEART: Regular rate and rhythm, S1, S2 without murmur, rub or gallop. ABDOMEN: Soft, nontender, nondistended, normoactive bowel sounds, no guarding, no rebound, no hepatosplenomegaly, no masses. EXTREMITIES: bilateral gangrene lower ext down to the tendon on the left with unstageble sacral ulcer NEUROLOGICAL: Cranial nerves II through XII grossly intact. Follows basic commands PSYCH: Normal mood, normal affect. SKIN: bilateral gangrene lower ext down to the tendon on the left with purulent foul smelling discharge. Unstageble sacral ulcer Laboratory Results - last 24 hr 03/13/19 03/13/19 03/13/19 06:39 13:06 17:13 WBC RBC Hgb Hct MCV MCH MCHC RDW Plt Count MPV Absolute Neuts (auto) Neutrophils % Neutrophils % (Manual) Band Neutrophils % Lymphocytes % Lymphocytes % (Manual) Monocytes % Monocytes % (Manual) Eosinophils % Eosinophils % (Manual) Basophils % Basophils % (Manual) Myelocytes % (Man) Promyelocytes % (Man) Blast Cells % (Manual) Nucleated RBC % Metamyelocytes Hypochromia Platelet Estimate Polychromasia Poikilocytosis Anisocytosis Microcytosis Macrocytosis Stomatocytes Sodium Potassium Chloride Carbon Dioxide Anion Gap BUN Creatinine Est GFR (CKD-EPI)AfAm Est GFR (CKD-EPI)NonAf POC Glucometer 226 172 151 Random Glucose Calcium Phosphorus Magnesium Albumin Blood Type Antibody Screen Crossmatch 03/14/19 03/14/19 03/14/19 02:33 05:44 05:45 WBC 12.3 H RBC 2.36 L Hgb 7.0 L Hct 22.3 L MCV 94.8 MCH 29.6 MCHC 31.3 L RDW 19.9 H Plt Count 134 D MPV 9.1 Absolute Neuts (auto) 10.2 H Neutrophils % 82.6 Neutrophils % (Manual) 79.0 D Band Neutrophils % 0.0 Lymphocytes % 12.4 Lymphocytes % (Manual) 15.0 Monocytes % 4.5 Monocytes % (Manual) 6 Eosinophils % 0.1 D Eosinophils % (Manual) 0.0 D Basophils % 0.4 Basophils % (Manual) 0.0 Myelocytes % (Man) 0 Promyelocytes % (Man) 0 Blast Cells % (Manual) 0 Nucleated RBC % 1 H Metamyelocytes 0 D Hypochromia 0 Platelet Estimate Decreased Polychromasia 1+ Poikilocytosis 2+ Anisocytosis 2+ Microcytosis 2+ Macrocytosis 1+ Stomatocytes 2+ Sodium Potassium Chloride Carbon Dioxide Anion Gap BUN Creatinine Est GFR (CKD-EPI)AfAm Est GFR (CKD-EPI)NonAf POC Glucometer 146 145 Random Glucose Calcium Phosphorus Magnesium Albumin Blood Type Antibody Screen Crossmatch 03/14/19 03/14/19 03/14/19 05:45 11:27 12:00 WBC 12.4 H RBC 2.34 L Hgb 6.9 L* Hct 22.5 L MCV 95.8 MCH 29.5 MCHC 30.8 L RDW 19.6 H Plt Count 128 L MPV 9.6 Absolute Neuts (auto) Neutrophils % Neutrophils % (Manual) Band Neutrophils % Lymphocytes % Lymphocytes % (Manual) Monocytes % Monocytes % (Manual) Eosinophils % Eosinophils % (Manual) Basophils % Basophils % (Manual) Myelocytes % (Man) Promyelocytes % (Man) Blast Cells % (Manual) Nucleated RBC % Metamyelocytes Hypochromia Platelet Estimate Polychromasia Poikilocytosis Anisocytosis Microcytosis Macrocytosis Stomatocytes Sodium 129 L Potassium 3.2 L Chloride 94 L Carbon Dioxide 24 Anion Gap 11 BUN 21.8 H Creatinine 2.3 H Est GFR (CKD-EPI)AfAm 31.25 Est GFR (CKD-EPI)NonAf 26.97 POC Glucometer Random Glucose 155 H Calcium 6.8 L* Phosphorus 3.8 Magnesium 2.1 Albumin 1.1 L Blood Type A POSITIVE Antibody Screen Negative Crossmatch See Detail 03/14/19 13:52 WBC RBC Hgb Hct MCV MCH MCHC RDW Plt Count MPV Absolute Neuts (auto) Neutrophils % Neutrophils % (Manual) Band Neutrophils % Lymphocytes % Lymphocytes % (Manual) Monocytes % Monocytes % (Manual) Eosinophils % Eosinophils % (Manual) Basophils % Basophils % (Manual) Myelocytes % (Man) Promyelocytes % (Man) Blast Cells % (Manual) Nucleated RBC % Metamyelocytes Hypochromia Platelet Estimate Polychromasia Poikilocytosis Anisocytosis Microcytosis Macrocytosis Stomatocytes Sodium Potassium Chloride Carbon Dioxide Anion Gap BUN Creatinine Est GFR (CKD-EPI)AfAm Est GFR (CKD-EPI)NonAf POC Glucometer 147 Random Glucose Calcium Phosphorus Magnesium Albumin Blood Type Antibody Screen Crossmatch Active Medications Generic Name Dose Route Start Last Admin Trade Name Freq PRN Reason Stop Dose Admin Acetaminophen 1,000 mg 03/11/19 04:18 03/12/19 01:54 Ofirmev Injection - IVPB 1,000 mg Q6H PRN Administration FEVER Amino Acids 30 ml 02/21/19 22:00 03/14/19 14:27 Prosource No Carb Liquid Pkt PO Not Given TID CHANTELL Apixaban 2.5 mg 02/21/19 22:00 03/14/19 09:14 Eliquis - PO Not Given BID CHANTELL Atorvastatin Calcium 20 mg 02/21/19 22:00 03/13/19 21:47 Lipitor - PO Not Given HS CHANTELL Collagenase 1 applic 02/22/19 10:00 03/14/19 09:54 Santyl - TP 1 applic DAILY CHANTELL Administration Protocol Escitalopram Oxalate 10 mg 02/22/19 10:00 03/14/19 09:14 Lexapro - PO Not Given DAILY CHANTELL Hydrocortisone Sodium Succinate 100 mg 03/11/19 11:00 03/14/19 09:54 Solu-Cortef - IVPB 100 mg Q8H-IV CHANTELL Administration Fentanyl 500 mcg/ Dextrose 100 mls @ 1 mls/hr 03/11/19 00:45 03/14/19 06:50 IVPB 25 mcg/hr TITR CHANTELL 5 mls/hr Administration 5 MCG/HR Norepinephrine Bitartrate 8, 500 mls @ 18.75 mls/hr 03/11/19 05:58 03/14/19 06:50 000 mcg/ Dextrose IV 8 mcg/min ASDIR CHANTELL 30 mls/hr Administration Protocol 5 MCG/MIN Vasopressin 50 units/ Sodium 100 mls @ 4 mls/hr 03/11/19 06:30 03/14/19 13:38 Chloride IVPB 6 units/hr ASDIR CHANTELL 12 mls/hr Administration Protocol 2 UNITS/HR Meropenem 500 mg/ Dextrose 100 mls @ 200 mls/hr 03/11/19 10:00 03/13/19 10:18 IVPB 200 mls/hr DAILY CHANTELL Administration Insulin Aspart 1 vial 03/13/19 12:00 03/14/19 13:54 Novolog Vial Sliding Scale - SQ Not Given Q6HPO [facility] Protocol Midodrine 10 mg 03/02/19 14:00 03/14/19 14:27 Proamatine - PO Not Given TID-MID [facility] Multivitamins/Minerals/Vitamin C 1 tab 02/22/19 10:00 03/14/19 09:15 Tab-A-Vit - PO Not Given DAILY CHANTELL Pantoprazole Sodium 40 mg 03/14/19 22:00 Protonix Iv IVPUSH BID CHANTELL Tamsulosin HCl 0.4 mg 02/21/19 22:00 03/13/19 21:47 Flomax - PO Not Given HS [facility] ASSESSMENT/PLAN: Again attempted to contact pt daughter with no answer, message placed on voicemail, no return call. Ethics meeting done, see note from nurse Sharlene. Pt continues to require pressers and reported to have short runs of V tach with 150 push of Amio. Sputum and blood cultures positive for many resistant organisms. No changes required to vent settings, unlikely PNA or new resp pathology. Will continue to treat with stated antibiotics as per ID Pt reported to have coffee ground emesis as per nurse, CBC repeated, 6.9 hemoglobin noted. Will transfuse 2 units PRBC and HD today as per nephro. No GI consult due to no interventions possible at pts current state of health. #septic shock 2/2 DM gangrenous B/L feet infx, Infected sacral decub and scrotal ulcer, and GN bacteremia (proteus, prevotella) - requiring ICU and pressors. Now w/ hypoxic respiratory failure possibly 2/2 developing aspiration PNA (aspirated over the weekend) requiring intubation/sedation. CXR 03/11 shows questionable infiltrate L base. +Leukocytosis. afebrile now for >24hr -old cx with E coli, ESBL, MRSA, and VRE. -contact isolation for MDRO -s/p Vanc and Zosyn in the ED, Gentamicin x1, Meropenem x2 in ICU -Bcx 02/21/19 growing GN cher - proteus and prevotella -ucx neg -wound cx E coli, morganella -Bcx 02/23/19 neg -03/11/19 sputum cx MRSA, pseudomonas A,ecoli esbl, acinetobacter ; bcx ecoli esbl bacteremia. -ID consulted, Rangel -lactic acid resolved -palliative care consulted -s/p CTX 2g/flagyl, c/w Meropenem day #20 total abx, ID recs appreciated. -s/p vanc and gentamicin x1 yesterday per ID -Aspiration precautions. -c/w Levophed 8, vasopressin 6, stress steroids. Titrate pressors to keep MAP>65 -fentanyl 25mcg for comfort and sedation -vascular surgery consulted, Dr harry, for wound care. amputation indicated, but family not amenable. cont GOC #Seizure-like myoclonus 03/12/19 - noted overnight. resolved w/ ativan 1mg and loaded w/ keppra. see Dr Overton note for further details c/w keppra 250 bid #ESRD on HD (MWF) -nephro consulted (Dr. Henriquez) -HD today as per nephro ned held by nephro for low phos. #Acute on chronic anemia likely 2/2 ESRD -monitor H/H #Severe protein calorie malnutrition -albumin 1.1, prealbumin 3.5 -thin appearing, decreased muscle mass and fat -decreased overall PO intake -Magic cup, Ensure pudding for increased density of nutritional intake. Now on NGT while intubated #COPD -keep SpO2>90% -Duonebs q6h PRN #Dm ISS BGM ACHS #H/o hypotension : c/w home midodrine monitor vitals # h/o afib c/w elequis 2.5 bid #FEN -Not on any standing fluids -replete prn -NGT on tube feeds #Prophylaxis -Eliquis 2.5mg BID -Protonix IV while on AC and pressors -bacid
--- NOTE | 2019-03-14 17:04 | PN ---
Progress Note, Physician History of Present Illness: Pt seen and examined at bedside. His Hg is dropping. He remains in the ICU. - Current Medication List Current Medications: Active Medications Acetaminophen (Ofirmev Injection -) 1,000 mg IVPB Q6H PRN PRN Reason: FEVER Last Admin: 03/12/19 01:54 Dose: 1,000 mg Amino Acids (Prosource No Carb Liquid Pkt) 30 ml PO TID CHANTELL Last Admin: 03/14/19 14:27 Dose: Not Given Apixaban (Eliquis -) 2.5 mg PO BID CHANTELL Last Admin: 03/14/19 09:14 Dose: Not Given Atorvastatin Calcium (Lipitor -) 20 mg PO HS CHANTELL Last Admin: 03/13/19 21:47 Dose: Not Given Collagenase (Santyl -) 1 applic TP DAILY CHANTELL; Protocol Last Admin: 03/14/19 09:54 Dose: 1 applic Escitalopram Oxalate (Lexapro -) 10 mg PO DAILY CHANTELL Last Admin: 03/14/19 09:14 Dose: Not Given Hydrocortisone Sodium Succinate (Solu-Cortef -) 100 mg IVPB Q8H-IV CHANTELL Last Admin: 03/14/19 09:54 Dose: 100 mg Fentanyl 500 mcg/ Dextrose 100 mls @ 1 mls/hr IVPB TITR CHANTELL Last Admin: 03/14/19 06:50 Dose: 25 mcg/hr, 5 mls/hr Norepinephrine Bitartrate 8, (000 mcg/ Dextrose) 500 mls @ 18.75 mls/hr IV ASDIR CHANTELL; Protocol Last Admin: 03/14/19 06:50 Dose: 8 mcg/min, 30 mls/hr Vasopressin 50 units/ Sodium (Chloride) 100 mls @ 4 mls/hr IVPB ASDIR CHANTELL; Protocol Last Admin: 03/14/19 13:38 Dose: 6 units/hr, 12 mls/hr Meropenem 500 mg/ Dextrose 100 mls @ 200 mls/hr IVPB DAILY CHANTELL Last Admin: 03/13/19 10:18 Dose: 200 mls/hr Insulin Aspart (Novolog Vial Sliding Scale -) 1 vial SQ Q6HPO CHANTELL; Protocol Last Admin: 03/14/19 13:54 Dose: Not Given Midodrine (Proamatine -) 10 mg PO TID-MID CHANTELL Last Admin: 06/20/19 14:27 Dose: Not Given Multivitamins/Minerals/Vitamin C (Tab-A-Vit -) 1 tab PO DAILY CHANTELL Last Admin: 03/14/19 09:15 Dose: Not Given Pantoprazole Sodium (Protonix Iv) 40 mg IVPUSH BID CHANTELL Tamsulosin HCl (Flomax -) 0.4 mg PO HS CHANTELL Last Admin: 03/13/19 21:47 Dose: Not Given - Objective Vital Signs: Vital Signs Temperature 98.5 F 03/14/19 15:30 Pulse Rate 72 03/14/19 16:40 Respiratory Rate 12 03/14/19 16:40 Blood Pressure 107/59 L 03/14/19 16:40 O2 Sat by Pulse Oximetry (%) 100 03/14/19 12:00 Constitutional: Yes: Calm Eyes: Yes: Conjunctiva Clear Cardiovascular: Yes: S1, S2 Respiratory: Yes: Mechanically Ventilated Gastrointestinal: Yes: Soft Genitourinary: Yes: Incontinence Musculoskeletal: Yes: Muscle Weakness Edema: No Neurological: Yes: Lethargy Labs: CBC, BMP 03/14/19 11:27 INR, PTT INR 1.44 (0.83-1.09) H 02/22/19 05:40 Problem List - Problems (1) ESRD (end stage renal disease) on dialysis Code(s): N18.6 - END STAGE RENAL DISEASE; Z99.2 - DEPENDENCE ON RENAL DIALYSIS Assessment/Plan Current Medications Generic Name Dose Route Start Last Admin Trade Name Freq PRN Reason Stop Dose Admin Acetaminophen 1,000 mg 03/11/19 04:18 03/12/19 01:54 Ofirmev Injection - IVPB 1,000 mg Q6H PRN Administration FEVER Amino Acids 30 ml 02/21/19 22:00 03/14/19 14:27 Prosource No Carb Liquid Pkt PO Not Given TID CHANTELL Apixaban 2.5 mg 02/21/19 22:00 03/14/19 09:14 Eliquis - PO Not Given BID CHANTELL Atorvastatin Calcium 20 mg 02/21/19 22:00 03/13/19 21:47 Lipitor - PO Not Given HS CHANTELL Collagenase 1 applic 02/22/19 10:00 03/14/19 09:54 Santyl - TP 1 applic DAILY CHANTELL Administration Protocol Escitalopram Oxalate 10 mg 02/22/19 10:00 03/14/19 09:14 Lexapro - PO Not Given DAILY [facility] Hydrocortisone Sodium Succinate 100 mg 03/11/19 11:00 03/14/19 09:54 Solu-Cortef - IVPB 100 mg Q8H-IV CHANTELL Administration Fentanyl 500 mcg/ Dextrose 100 mls @ 1 mls/hr 03/11/19 00:45 03/14/19 06:50 IVPB 25 mcg/hr TITR CHANTELL 5 mls/hr Administration 5 MCG/HR Norepinephrine Bitartrate 8, 500 mls @ 18.75 mls/hr 03/11/19 05:58 03/14/19 06:50 000 mcg/ Dextrose IV 8 mcg/min ASDIR CHANTELL 30 mls/hr Administration Protocol 5 MCG/MIN Vasopressin 50 units/ Sodium 100 mls @ 4 mls/hr 03/11/19 06:30 03/14/19 13:38 Chloride IVPB 6 units/hr ASDIR CHANTELL 12 mls/hr Administration Protocol 2 UNITS/HR Meropenem 500 mg/ Dextrose 100 mls @ 200 mls/hr 03/11/19 10:00 03/13/19 10:18 IVPB 200 mls/hr DAILY CHANTELL Administration Insulin Aspart 1 vial 03/13/19 12:00 03/14/19 13:54 Novolog Vial Sliding Scale - SQ Not Given Q6HPO [facility] Protocol Midodrine 10 mg 03/02/19 14:00 03/14/19 14:27 Proamatine - PO Not Given TID-MID [facility] Multivitamins/Minerals/Vitamin C 1 tab 02/22/19 10:00 03/14/19 09:15 Tab-A-Vit - PO Not Given DAILY [facility] Pantoprazole Sodium 40 mg 03/14/19 22:00 Protonix Iv IVPUSH BID CHANTELL Tamsulosin HCl 0.4 mg 02/21/19 22:00 03/13/19 21:47 Flomax - PO Not Given HS [facility] Impression 1. ESRD 2. gangrene 3. DM 4. hyperlipidemia 5. HTN 6. gout 7. proteinuria 8. hypotension 9. sepsis 10. resp failure 11. GI bleed Plan - replace potassium - will dialyze and give prbc with hd - discussed with ICU - pt doing poorly - abx per ID
[2019-03-14] MEDS: MEROPENEM 500 MG in DEXTROSE 5%-WATER 100 ML IVPB SCH (17:43)
--- NOTE | 2019-03-14 18:46 | PN ---
Teaching Attending Note Name of Resident: Mathew Adorno ATTENDING PHYSICIAN STATEMENT I saw and evaluated the patient. I reviewed the resident's note and discussed the case with the resident. I agree with the resident's findings and plan as documented. SUBJECTIVE: Pt seen and examined in the ICU. Remains intubated, on 2 pressors , levophed gtt and vasopressin. No new event overnight. OBJECTIVE: Vital Signs Temperature 98.5 F 03/14/19 15:30 Pulse Rate 87 03/14/19 17:44 Respiratory Rate 19 03/14/19 18:27 Blood Pressure 107/56 L 03/14/19 17:44 O2 Sat by Pulse Oximetry (%) 100 03/14/19 12:00 GENERAL: The patient is intubated , sedated. HEAD: Normal with no signs of trauma. EYES: extraocular movements intact, sclera anicteric, ENT: intubated and sedated . NECK: Trachea midline, positive for ET-tube LUNGS: intubated , sedated . HEART: tachycardic , S1, S2 without murmur, rub or gallop. ABDOMEN: Soft, NT, ND, BS positive, no guarding, no rebound, no hepatosplenomegaly, no masses. EXTREMITIES: contracted, with gangrenous lower extremities SKIN: Warm. CBCD WBC 12.4 K/mm3 (4.0-10.0) H 03/14/19 11:27 RBC 2.34 M/mm3 (4.00-5.60) L 03/14/19 11:27 Hgb 6.9 GM/dL (11.7-16.9) L* 03/14/19 11:27 Hct 22.5 % (35.4-49) L 03/14/19 11:27 MCV 95.8 fl (80-96) 03/14/19 11:27 MCHC 30.8 g/dl (32.0-35.9) L 03/14/19 11:27 RDW 19.6 % (11.9-15.9) H 03/14/19 11:27 Plt Count 128 K/MM3 (134-434) L 03/14/19 11:27 MPV 9.6 fl (7.5-11.1) 03/14/19 11:27 CMP Sodium 129 mmol/L (136-145) L 03/14/19 05:45 Potassium 3.7 mmol/L (3.5-5.1) 03/14/19 15:40 Chloride 94 mmol/L (98-107) L 03/14/19 05:45 Carbon Dioxide 24 mmol/L (21-32) 03/14/19 05:45 Anion Gap 11 MMOL/L (8-16) 03/14/19 05:45 BUN 21.8 mg/dL (7-18) H 03/14/19 05:45 Creatinine 2.3 mg/dL (0.55-1.3) H 03/14/19 05:45 Random Glucose 155 mg/dL (74-106) H 03/14/19 05:45 Calcium 6.8 mg/dL (8.5-10.1) L* 03/14/19 05:45 Total Bilirubin 0.6 mg/dL (0.2-1) 03/10/19 05:00 AST 24 U/L (15-37) 03/10/19 05:00 ALT 8 U/L (13-61) L 03/10/19 05:00 Alkaline Phosphatase 313 U/L (45-117) H 03/10/19 05:00 Total Protein 4.8 g/dl (6.4-8.2) L 03/10/19 05:00 Albumin 1.1 g/dl (3.4-5.0) L 03/14/19 05:45 CARDIAC ENZYMES Troponin I < 0.02 ng/ml (0.00-0.05) 02/21/19 15:10 Current Medications Generic Name Dose Route Start Last Admin Trade Name Kassandra PRN Reason Stop Dose Admin Acetaminophen 1,000 mg 03/11/19 04:18 03/12/19 01:54 Ofirmev Injection - IVPB 1,000 mg Q6H PRN Administration FEVER Amino Acids 30 ml 02/21/19 22:00 03/14/19 14:27 Prosource No Carb Liquid Pkt PO Not Given TID CHANTELL Apixaban 2.5 mg 02/21/19 22:00 03/14/19 09:14 Eliquis - PO Not Given BID CHANTELL Atorvastatin Calcium 20 mg 02/21/19 22:00 03/13/19 21:47 Lipitor - PO Not Given HS CHANTELL Collagenase 1 applic 02/22/19 10:00 03/14/19 09:54 Santyl - TP 1 applic DAILY CHANTELL Administration Protocol Escitalopram Oxalate 10 mg 02/22/19 10:00 03/14/19 09:14 Lexapro - PO Not Given DAILY [facility] Hydrocortisone Sodium Succinate 100 mg 03/11/19 11:00 03/14/19 18:29 Solu-Cortef - IVPB 100 mg Q8H-IV CHANTELL Administration Fentanyl 500 mcg/ Dextrose 100 mls @ 1 mls/hr 03/11/19 00:45 03/14/19 06:50 IVPB 25 mcg/hr TITR CHANTELL 5 mls/hr Administration 5 MCG/HR Norepinephrine Bitartrate 8, 500 mls @ 18.75 mls/hr 03/11/19 05:58 03/14/19 06:50 000 mcg/ Dextrose IV 8 mcg/min ASDIR CHANTELL 30 mls/hr Administration Protocol 5 MCG/MIN Vasopressin 50 units/ Sodium 100 mls @ 4 mls/hr 03/11/19 06:30 03/14/19 13:38 Chloride IVPB 6 units/hr ASDIR CHANTELL 12 mls/hr Administration Protocol 2 UNITS/HR Meropenem 500 mg/ Dextrose 100 mls @ 200 mls/hr 03/11/19 10:00 03/14/19 17:43 IVPB 200 mls/hr DAILY CHANTELL Administration Insulin Aspart 1 vial 03/13/19 12:00 03/14/19 17:47 Novolog Vial Sliding Scale - SQ Not Given Q6HPO [facility] Protocol Midodrine 10 mg 03/02/19 14:00 03/14/19 18:36 Proamatine - PO Not Given TID-MID [facility] Multivitamins/Minerals/Vitamin C 1 tab 02/22/19 10:00 03/14/19 09:15 Tab-A-Vit - PO Not Given DAILY [facility] Pantoprazole Sodium 40 mg 03/14/19 22:00 Protonix Iv IVPUSH BID CHANTELL Tamsulosin HCl 0.4 mg 02/21/19 22:00 03/13/19 21:47 Flomax - PO Not Given HS [facility] Home Medications Medication Instructions Recorded Albuterol 2.5/Ipratropium 0.5 1 amp NEB Q6H PRN #0 amp 07/12/17 [Duoneb -] Allopurinol [Zyloprim -] 100 mg PO DAILY tablet 07/12/17 Atorvastatin Ca [Lipitor] 20 mg PO HS tablet 07/12/17 Collagenase Clostridium Hist. 1 applic TP DAILY tube 09/06/18 [Santyl -] Albuterol Sulfate [Proair Hfa] 2 puff IH Q6H PRN 10/29/18 Escitalopram Oxalate [Lexapro -] 10 mg PO DAILY 10/29/18 Folic Acid/Vit B Complex and C 1 each PO DAILY 10/29/18 [Dialyvite Tablet] Midodrine HCl 10 mg PO MOWEFR 10/29/18 Sevelamer Carbonate [Renvela -] 1,600 mg PO TID 10/29/18 Tamsulosin HCl [Flomax] 0.4 mg PO HS 10/29/18 Insulin Sliding Scale [Novolog 1 vial SQ TIDAC #1 vial 11/17/18 Vial Sliding Scale -] Apixaban [Eliquis -] 5 mg PO BID #30 tablet MDD 2 11/19/18 Collagenase Clostridium Hist. 1 applic TP DAILY #1 tube 01/17/19 [Santyl -] Amoxicillin/Potassium Clav 1 each PO DAILY #7 tablet 02/06/19 [Augmentin 500-125 Tablet] Megestrol Acetate Oral Susp 400 mg PO DAILY #20 cup 02/06/19 [Megace Liquid -] Protein Supplement [Prosource] 275 gm PO TID #60 powder 02/06/19 Lactobacillus Acidophilus [Bacid -] 1 tab PO DAILY #60 tab 02/19/19 Midodrine HCl [Proamatine -] 5 mg PO SuTuThSa #60 tablet 02/19/19 traMADol HCL [Ultram -] 50 mg PO Q6H PRN #60 tablet MDD 4 02/19/19 Microbiology 03/11/19 10:15 Sputum - Endotrachea Suction/Ventilator Gram Stain - Final 03/11/19 10:15 Sputum - Endotrachea Suction/Ventilator Sputum Culture - Final Mr S Aureus Escherichia Coli Esbl [employer] Acinetobacter Baumannii/Haemol Pseudomonas Aeruginosa 03/11/19 05:30 Blood - Peripheral Venous Blood Culture - Preliminary NO GROWTH OBTAINED AFTER 72 HOURS, INCUBATION TO CONTINUE FOR 2 DAYS. 03/11/19 06:45 Blood - Peripheral Venous Blood Culture - Final Escherichia Coli Esbl [employer] 02/23/19 11:50 Blood - Peripheral Venous Blood Culture - Final NO GROWTH AFTER 5 DAYS INCUBATION 02/23/19 11:50 Blood - Peripheral Venous Blood Culture - Final NO GROWTH AFTER 5 DAYS INCUBATION 02/21/19 13:16 Blood - Peripheral Venous Blood Culture - Final Proteus Mirabilis Prevotella Melaninogenica 02/21/19 16:30 Foot - Left Heel Gram Stain - Final 02/21/19 16:30 Foot - Left Heel Wound Culture - Final Escherichia Coli Esbl [employer] Morganella Morganii 02/21/19 15:40 Blood - Peripheral Venous Blood Culture - Final Proteus Mirabilis 02/21/19 14:50 Urine - Urine - Catheterized Urine Culture - Final NO GROWTH OBTAINED ASSESSMENT AND PLAN: Patient is a 73 y/o man with h/o dementia, CVA, DM, COPD, ESRD, gout, HTN, HLP, recent admission 01/31-02/19 during which he was treated for sepsis due to infected b/l feet ulcers/gangrene. He was sent form NH due to poor po intake, and non healing wounds # Acute hypoxic resp failure s/p intubation in ICU vent management and sedation as per ICU team # Septic shock due GNR bacteremia ecoli esbl bacteremia due to gangrenous infection of LEs cont meropenem # Infected sacral decub and scrotal ulcer # ESRD HD per schedule # DM SSI # anemia On keppra 250 BID Poor prognosis. Appreciate Palliative care and Ethics committee help will wait for further recommendations.
[2019-03-14] MEDS ORDERED: PT OWN MED DRAWER 7, Y5N ONE (19:33)
[2019-03-14] MEDS: TAMSULOSIN HCL 0.4 MG CAP PO SCH (21:35)
[2019-03-14] MEDS: ATORVASTATIN CA 20 MG TABLET (FP) PO SCH (21:35)
[2019-03-15] MEDS: INSULIN SLIDING SCALE (NOVOLOG) 1 VIAL SQ SCH ×4 (01:56→18:05)
[2019-03-15] MEDS: HYDROCORTISONE SOD SUCCINATE 100 MG/2 ML VIAL IVPB SCH ×3 (02:05→18:05)
[2019-03-15 06:27] LABS: BASO % 0.3 % (0-2.0); EOS % 0.6 % (0-4.5); HEMATOCRIT 30.4 % (35.4-49); HEMOGLOBIN 9.6 GM/dL (11.7-16.9); MCH 29.4 pg (25.7-33.7); MCHC 31.5 g/dl (32.0-35.9); MEAN CELL VOLUME 93.5 fl (80-96); MEAN PLT VOLUME 10.6 fl (7.5-11.1); MONO % 2.7 % (3.8-10.2); NEUT % 84.4 % (42.8-82.8); PLATELET COUNT 112 K/MM3 (134-434); RBC 3.25 M/mm3 (4.00-5.60); RDW 19.2 % (11.9-15.9)
--- NOTE | 2019-03-15 06:47 | PN ---
Physical Exam: SUBJECTIVE: Patient seen and examined in ICU. intubated sedated on pressors x2 w/ stress steroids in septic shock. GOC/ethics meeting ongoing. s/p 2 prbc OBJECTIVE: Vital Signs Period Temp Pulse Resp BP Sys/Zamorano Pulse Ox Last 24 Hr 97.9 F-98.5 F 64-126 13-23 90-110/56-69 100-100 GENERAL: intubated sedated. thin appearing, decreased muscle mass and fat EARS, NOSE, THROAT: dry mucous membranes. LUNGS: CTAB HEART: irregularly irregular s1s2 normal ABDOMEN: Soft, NTND normoactive bowel sounds, ulcer present on sacrum unstagable with foul discharge, scrotum has ulcer no discharge MUSCULOSKELETAL: Normal range of motion at all joints. No bony deformities or tenderness. No CVA tenderness. UPPER EXTREMITIES: 2+ pulses, warm, well-perfused. +edema LOWER EXTREMITIES: b/l wet gangrene with fouls smelling discharge SKIN: Warm, dry, Neuo: intubated sedated. no apparent gag reflex today, sluggish pupils, non responsive to pain or voice Laboratory Results - last 24 hr 03/14/19 03/14/19 03/14/19 05:45 05:45 11:27 WBC 12.3 H 12.4 H RBC 2.36 L 2.34 L Hgb 7.0 L 6.9 L* Hct 22.3 L 22.5 L MCV 94.8 95.8 MCH 29.6 29.5 MCHC 31.3 L 30.8 L RDW 19.9 H 19.6 H Plt Count 134 D 128 L MPV 9.1 9.6 Absolute Neuts (auto) 10.2 H Neutrophils % 82.6 Neutrophils % (Manual) 79.0 D Band Neutrophils % 0.0 Lymphocytes % 12.4 Lymphocytes % (Manual) 15.0 Monocytes % 4.5 Monocytes % (Manual) 6 Eosinophils % 0.1 D Eosinophils % (Manual) 0.0 D Basophils % 0.4 Basophils % (Manual) 0.0 Myelocytes % (Man) 0 Promyelocytes % (Man) 0 Blast Cells % (Manual) 0 Nucleated RBC % 1 H Metamyelocytes 0 D Hypochromia 0 Platelet Estimate Decreased Polychromasia 1+ Poikilocytosis 2+ Anisocytosis 2+ Microcytosis 2+ Macrocytosis 1+ Stomatocytes 2+ Potassium POC Glucometer Albumin 1.1 L Blood Type Antibody Screen Crossmatch 03/14/19 03/14/19 03/14/19 12:00 13:52 15:40 WBC RBC Hgb Hct MCV MCH MCHC RDW Plt Count MPV Absolute Neuts (auto) Neutrophils % Neutrophils % (Manual) Band Neutrophils % Lymphocytes % Lymphocytes % (Manual) Monocytes % Monocytes % (Manual) Eosinophils % Eosinophils % (Manual) Basophils % Basophils % (Manual) Myelocytes % (Man) Promyelocytes % (Man) Blast Cells % (Manual) Nucleated RBC % Metamyelocytes Hypochromia Platelet Estimate Polychromasia Poikilocytosis Anisocytosis Microcytosis Macrocytosis Stomatocytes Potassium 3.7 POC Glucometer 147 Albumin Blood Type A POSITIVE Antibody Screen Negative Crossmatch See Detail 03/14/19 03/15/19 17:45 01:53 WBC RBC Hgb Hct MCV MCH MCHC RDW Plt Count MPV Absolute Neuts (auto) Neutrophils % Neutrophils % (Manual) Band Neutrophils % Lymphocytes % Lymphocytes % (Manual) Monocytes % Monocytes % (Manual) Eosinophils % Eosinophils % (Manual) Basophils % Basophils % (Manual) Myelocytes % (Man) Promyelocytes % (Man) Blast Cells % (Manual) Nucleated RBC % Metamyelocytes Hypochromia Platelet Estimate Polychromasia Poikilocytosis Anisocytosis Microcytosis Macrocytosis Stomatocytes Potassium POC Glucometer 150 152 Albumin Blood Type Antibody Screen Crossmatch Active Medications Generic Name Dose Route Start Last Admin Trade Name Freq PRN Reason Stop Dose Admin Acetaminophen 1,000 mg 03/11/19 04:18 03/12/19 01:54 Ofirmev Injection - IVPB 1,000 mg Q6H PRN Administration FEVER Amino Acids 30 ml 02/21/19 22:00 03/14/19 21:35 Prosource No Carb Liquid Pkt PO Not Given TID [facility] Apixaban 2.5 mg 02/21/19 22:00 03/14/19 21:35 Eliquis - PO Not Given BID [facility] Atorvastatin Calcium 20 mg 02/21/19 22:00 03/14/19 21:35 Lipitor - PO Not Given HS [facility] Collagenase 1 applic 02/22/19 10:00 03/14/19 09:54 Santyl - TP 1 applic DAILY [facility] Administration Protocol Escitalopram Oxalate 10 mg 02/22/19 10:00 03/14/19 09:14 Lexapro - PO Not Given DAILY [facility] Hydrocortisone Sodium Succinate 100 mg 03/11/19 11:00 03/15/19 02:05 Solu-Cortef - IVPB 100 mg Q8H-IV [facility] Administration Fentanyl 500 mcg/ Dextrose 100 mls @ 1 mls/hr 03/11/19 00:45 03/14/19 06:50 IVPB 25 mcg/hr TITR [facility] 5 mls/hr Administration 5 MCG/HR Norepinephrine Bitartrate 8, 500 mls @ 18.75 mls/hr 03/11/19 05:58 03/14/19 06:50 000 mcg/ Dextrose IV 8 mcg/min ASDIR [facility] 30 mls/hr Administration Protocol 5 MCG/MIN Vasopressin 50 units/ Sodium 100 mls @ 4 mls/hr 03/11/19 06:30 03/14/19 13:38 Chloride IVPB 6 units/hr ASDIR [facility] 12 mls/hr Administration Protocol 2 UNITS/HR Meropenem 500 mg/ Dextrose 100 mls @ 200 mls/hr 03/11/19 10:00 03/14/19 17:43 IVPB 200 mls/hr DAILY [facility] Administration Insulin Aspart 1 vial 03/13/19 12:00 03/15/19 01:56 Novolog Vial Sliding Scale - SQ Not Given Q6HPO [facility] Protocol Midodrine 10 mg 03/02/19 14:00 03/14/19 18:36 Proamatine - PO Not Given TID-MID [facility] Multivitamins/Minerals/Vitamin C 1 tab 02/22/19 10:00 03/14/19 09:15 Tab-A-Vit - PO Not Given DAILY [facility] Pantoprazole Sodium 40 mg 03/14/19 22:00 03/14/19 22:47 Protonix Iv IVPUSH 40 mg BID [facility] Administration Tamsulosin HCl 0.4 mg 02/21/19 22:00 03/14/19 21:35 Flomax - PO Not Given HS [facility] ASSESSMENT/PLAN: 73 yo M PMH dementia, CVA, DM, COPD, ESRD, gout, HTN, HLP, recent admission 01/31- 02/19 during which he was treated for sepsis due to infected b/l feet ulcers/ gangrene. He was sent form NH due to poor po intake, and worsening of ulcers. Now in septic shock 2/2 DM gangrenous B/L feet infx, Infected sacral decub and scrotal ulcer, and GN bacteremia , requiring ICU and pressors #septic shock 2/2 DM gangrenous B/L feet infx, Infected sacral decub and scrotal ulcer, and GN bacteremia (proteus, prevotella) - requiring ICU and pressors. Now w/ hypoxic respiratory failure possibly 2/2 developing aspiration PNA (aspirated over the weekend) requiring intubation/sedation. CXR 03/11 shows questionable infiltrate L base. +Leukocytosis. afebrile now for >24hr -old cx with E coli, ESBL, MRSA, and VRE. -contact isolation for MDRO -s/p Vanc and Zosyn in the ED, Gentamicin x1, Meropenem x2 in ICU -Bcx 02/21/19 growing GN cher - proteus and prevotella -ucx neg -wound cx E coli, morganella -Bcx 02/23/19 neg -03/11/19 sputum cx MRSA, pseudomonas A,ecoli esbl, acinetobacter ; bcx ecoli esbl bacteremia. -MDRO: strict contact isolation -ID consulted, Rangel -palliative care consulted -s/p CTX 2g/flagyl, c/w Meropenem day #21 total abx, ID recs appreciated. -s/p vanc and gentamicin x1 03/13/19 per ID -Aspiration precautions. -c/w Levophed, vasopressin, stress steroids. Titrate pressors to keep MAP>65 -fentanyl 25mcg for comfort and sedation -vascular surgery consulted, Dr harry, for wound care. amputation indicated, but family not amenable. cont GOC #Seizure-like myoclonus 03/12/19 - noted overnight. resolved w/ ativan 1mg and loaded w/ keppra. see Dr Overton note for further details c/w keppra 250 bid #ESRD on HD (MWF) -nephro consulted (Dr. Henriquez) -HD as per nephro ned held by nephro for low phos. #Acute on chronic anemia likely 2/2 ESRD and sepsis -monitor H/H -H/H 6.9...9.6 s/p 2u prbc, transfuse prn to maintain hgb >7 #Severe protein calorie malnutrition -albumin 1.1, prealbumin 3.5 -thin appearing, decreased muscle mass and fat -decreased overall PO intake -Magic cup, Ensure pudding for increased density of nutritional intake. Now on NGT while intubated #COPD -keep SpO2>90% -Duonebs q6h PRN #Dm ISS BGM ACHS #H/o hypotension : c/w home midodrine monitor vitals # h/o afib c/w elequis 2.5 bid #FEN -Not on any standing fluids -replete prn -NGT on tube feeds #Prophylaxis -Eliquis 2.5mg BID -Protonix IV while on AC and pressors -bacid #Disposition -full code -GOC/ethics consult placed, as we have attempted multiple times to contact daughter who has not been responsive and in the past has not been amenable to to allow for source control/amputation and standard of care. given patients inability to make decisions for himself and daughter unwillingness pt will likely cont to suffer w/o improvement and has spoor prognosis. multiple times various members of primary team and ICU team have tried contacting daughter for GOC/ethics meeting. Resident Dr Milton was able to make contact w/ daughter but no meaningful discussion was able to take place, please see Dr Milton note for further detail. brother has been contacted and has spoken w/ palliative. daughter will not be coming, This may constitute pt abandonment. palliative trying to contact pt other children/NOK -given overall poor prognosis, conservative measures and comfort care may be appropriate -ICU monitoring Visit type - Emergency Visit Emergency Visit: Yes ED Registration Date: 02/21/19 Care time: The patient presented to the Emergency Department on the above date and was hospitalized for further evaluation of their emergent condition. - New Patient This patient is new to me today: Yes Date on this admission: 03/15/19 - Critical Care Critical Care patient: Yes Total Critical Care Time (in minutes): 39 Critical Care Statement: The care of this patient involved high complexity decision making to prevent further life threatening deterioration of the patient 's condition and/or to evaluate & treat vital organ system(s) failure or risk of failure.
[2019-03-15] MEDS: AMINO ACIDS/PROTEIN HYDROLYS 30 ML LIQUID.PKT PO SCH ×3 (07:01→21:22)
[2019-03-15 07:02] LABS: BLOOD UREA NITROGEN 23.1 mg/dL (7-18); CREATININE 2.1 mg/dL (0.55-1.3); MAGNESIUM 1.9 mg/dL (1.8-2.4); PHOSPHOROUS 3.5 mg/dL (2.5-4.9); POTASSIUM 3.7 mmol/L (3.5-5.1)
[2019-03-15] MEDS ORDERED: VASOPRESSIN 20 UNITS/ML VIAL IV ONE ×2 (07:04→18:20)
[2019-03-15 08:02] LABS: CALCIUM 6.7 mg/dL (8.5-10.1)
[2019-03-15] MEDS ORDERED: fentaNYL CITRATE 250 MCG/5 ML VIAL ONE (08:37)
[2019-03-15 08:39] LABS: ALBUMIN 1.2 g/dl (3.4-5.0)
[2019-03-15] MEDS: FENTANYL INJECTION 500 MCG in DEXTROSE 5%-WATER - 90 ML IVPB SCH (08:40)
[2019-03-15] MEDS: VASOPRESSIN 50 UNITS in SODIUM CHLORIDE 97.5 ML IVPB SCH (09:00)
[2019-03-15] MEDS ORDERED: PT OWN MED DRAWER 7, Y5N ONE (09:44)
--- NOTE | 2019-03-15 11:03 | PN ---
Teaching Attending Note Name of Resident: Gualberto Eagle ATTENDING PHYSICIAN STATEMENT I saw and evaluated the patient. I reviewed the resident's note and discussed the case with the resident. I agree with the resident's findings and plan as documented. SUBJECTIVE: Patient seen and examined in the ICU. Remains intubated and sedated. 8 mcq NE and 5 units vasopressin for hemodynamic support. Still with issues contacting NOK. OBJECTIVE: Intake & Output 03/12/19 03/13/19 03/14/19 03/15/19 23:59 23:59 23:59 23:59 Intake Total 3098 2619 2379.9 326 Output Total 500 0 650 Balance 2598 2619 1729.9 326 Weight 174 lb 4.8 oz 164 lb 6.4 oz 177 lb 11.081 oz 172 lb 3.2 oz Last Vital Signs Temp Pulse Resp BP Pulse Ox 98.3 F 85 20 110/64 100 03/15/19 06:00 03/15/19 08:00 03/15/19 08:00 03/15/19 08:00 03/15/19 05:30 Active Medications Acetaminophen (Ofirmev Injection -) 1,000 mg IVPB Q6H PRN PRN Reason: FEVER Last Admin: 03/12/19 01:54 Dose: 1,000 mg Amino Acids (Prosource No Carb Liquid Pkt) 30 ml PO TID [facility] Last Admin: 03/15/19 07:01 Dose: Not Given Apixaban (Eliquis -) 2.5 mg PO BID [facility] Last Admin: 03/14/19 21:35 Dose: Not Given Atorvastatin Calcium (Lipitor -) 20 mg PO HS [facility] Last Admin: 03/14/19 21:35 Dose: Not Given Collagenase (Santyl -) 1 applic TP DAILY [facility]; Protocol Last Admin: 03/14/19 09:54 Dose: 1 applic Escitalopram Oxalate (Lexapro -) 10 mg PO DAILY [facility] Last Admin: 03/14/19 09:14 Dose: Not Given Hydrocortisone Sodium Succinate (Solu-Cortef -) 100 mg IVPB Q8H-IV [facility] Last Admin: 03/15/19 02:05 Dose: 100 mg Fentanyl 500 mcg/ Dextrose 100 mls @ 1 mls/hr IVPB TITR [facility] Last Admin: 03/14/19 06:50 Dose: 25 mcg/hr, 5 mls/hr Norepinephrine Bitartrate 8, (000 mcg/ Dextrose) 500 mls @ 18.75 mls/hr IV [facility]; Protocol Last Admin: 03/14/19 06:50 Dose: 8 mcg/min, 30 mls/hr Vasopressin 50 units/ Sodium (Chloride) 100 mls @ 4 mls/hr IVPB [facility]; Protocol Last Admin: 03/14/19 13:38 Dose: 6 units/hr, 12 mls/hr Meropenem 500 mg/ Dextrose 100 mls @ 200 mls/hr IVPB DAILY [facility] Last Admin: 03/14/19 17:43 Dose: 200 mls/hr Insulin Aspart (Novolog Vial Sliding Scale -) 1 vial SQ Q6HPO [facility]; Protocol Last Admin: 03/15/19 07:20 Dose: Not Given Midodrine (Proamatine -) 10 mg PO TID-MID [facility] Last Admin: 03/14/19 18:36 Dose: Not Given Multivitamins/Minerals/Vitamin C (Tab-A-Vit -) 1 tab PO DAILY [facility] Last Admin: 03/14/19 09:15 Dose: Not Given Pantoprazole Sodium (Protonix Iv) 40 mg IVPUSH BID [facility] Last Admin: 03/14/19 22:47 Dose: 40 mg Tamsulosin HCl (Flomax -) 0.4 mg PO HS [facility] Last Admin: 03/14/19 21:35 Dose: Not Given Gen: intubated, sedated Heart: RRR Lung: scattered rhonchi Abd: soft, nontender Ext: wrapped, malodorous Laboratory Results - last 24 hr 03/14/19 03/14/19 03/14/19 11:27 12:00 13:52 WBC 12.4 H RBC 2.34 L Hgb 6.9 L* Hct 22.5 L MCV 95.8 MCH 29.5 MCHC 30.8 L RDW 19.6 H Plt Count 128 L MPV 9.6 Absolute Neuts (auto) Neutrophils % Lymphocytes % Monocytes % Eosinophils % Basophils % Nucleated RBC % Sodium Potassium Chloride Carbon Dioxide Anion Gap BUN Creatinine Est GFR (CKD-EPI)AfAm Est GFR (CKD-EPI)NonAf POC Glucometer 147 Random Glucose Calcium Phosphorus Magnesium Albumin Blood Type A POSITIVE Antibody Screen Negative Crossmatch See Detail 06/20/19 06/20/19 06/21/19 15:40 17:45 01:53 WBC RBC Hgb Hct MCV MCH MCHC RDW Plt Count MPV Absolute Neuts (auto) Neutrophils % Lymphocytes % Monocytes % Eosinophils % Basophils % Nucleated RBC % Sodium Potassium 3.7 Chloride Carbon Dioxide Anion Gap BUN Creatinine Est GFR (CKD-EPI)AfAm Est GFR (CKD-EPI)NonAf POC Glucometer 150 152 Random Glucose Calcium Phosphorus Magnesium Albumin Blood Type Antibody Screen Crossmatch 03/15/19 03/15/19 05:10 05:10 WBC 13.0 H RBC 3.25 L Hgb 9.6 L Hct 30.4 L D MCV 93.5 MCH 29.4 MCHC 31.5 L RDW 19.2 H Plt Count 112 L MPV 10.6 D Absolute Neuts (auto) 10.9 H Neutrophils % 84.4 H Lymphocytes % 12.0 Monocytes % 2.7 L Eosinophils % 0.6 D Basophils % 0.3 Nucleated RBC % 0 Sodium 130 L Potassium 3.7 Chloride 97 L Carbon Dioxide 24 Anion Gap 9 BUN 23.1 H Creatinine 2.1 H Est GFR (CKD-EPI)AfAm 34.89 Est GFR (CKD-EPI)NonAf 30.10 POC Glucometer Random Glucose 152 H Calcium 6.7 L* Phosphorus 3.5 Magnesium 1.9 Albumin 1.2 L Blood Type Antibody Screen Crossmatch ASSESSMENT AND PLAN: Acute Hypoxic Respiratory Failure Pneumonia suspect Aspiration ESBL E coli Bacteremia Septic Shock Bilateral Feet Gangrene Infected Decubitus Ulcers ESRD on HD DM HTN Hyperlipidemia h/o CVA - continue antibiotics per ID - continue midodrine - taper pressors to maintain MAP >65 - monitor H/H - local wound care - HD per renal - aspiration precautions - DVT prophylaxis - continue efforts to discuss medical condition and prognosis with next of kin - given overall poor condition, current medical condition, and overall poor superintendent container terminal outcome, recommend palliative/comfort care - continue ICU monitoring Dr Palmer Critical care time spent in reviewing chart, evaluating patient and formulating plan 36 min
[2019-03-15] MEDS: APIXABAN 2.5 MG TABLET PO SCH ×2 (11:04→21:22)
[2019-03-15] MEDS: MEROPENEM 500 MG in DEXTROSE 5%-WATER 100 ML IVPB SCH (11:04)
[2019-03-15] MEDS: COLLAGENASE CLOSTRIDIUM HIST. 30 GRAMS TUBE TP SCH (11:04)
[2019-03-15] MEDS: ESCITALOPRAM OXALATE 10 MG TABLET (FP) PO SCH (11:04)
[2019-03-15] MEDS: PANTOPRAZOLE SODIUM 40 MG VIAL IVPUSH SCH ×2 (11:04→21:27)
[2019-03-15] MEDS: MIDODRINE HCL 5 MG TABLET PO SCH ×3 (11:04→18:05)
[2019-03-15] MEDS: MULTIVITAMINS (DAILY MVI) TABLET (FP) PO SCH (11:05)
--- NOTE | 2019-03-15 11:16 | PN ---
Progress Note, Physician History of Present Illness: UNRESPONSIVE ON VENTILATOR HYPOTENSIVE ON 2 PRESSORS AFEBRILE WBC 13.0 - Current Medication List Current Medications: Active Medications Acetaminophen (Ofirmev Injection -) 1,000 mg IVPB Q6H PRN PRN Reason: FEVER Last Admin: 03/12/19 01:54 Dose: 1,000 mg Amino Acids (Prosource No Carb Liquid Pkt) 30 ml PO TID [facility] Last Admin: 03/15/19 07:01 Dose: Not Given Apixaban (Eliquis -) 2.5 mg PO BID [facility] Last Admin: 03/15/19 11:04 Dose: Not Given Atorvastatin Calcium (Lipitor -) 20 mg PO HS [facility] Last Admin: 03/14/19 21:35 Dose: Not Given Collagenase (Santyl -) 1 applic TP DAILY [facility]; Protocol Last Admin: 03/15/19 11:04 Dose: 1 applic Escitalopram Oxalate (Lexapro -) 10 mg PO DAILY [facility] Last Admin: 03/15/19 11:04 Dose: Not Given Hydrocortisone Sodium Succinate (Solu-Cortef -) 100 mg IVPB Q8H-IV [facility] Last Admin: 03/15/19 02:05 Dose: 100 mg Fentanyl 500 mcg/ Dextrose 100 mls @ 1 mls/hr IVPB TITR [facility] Last Admin: 03/15/19 08:40 Dose: 25 mcg/hr, 5 mls/hr Norepinephrine Bitartrate 8, (000 mcg/ Dextrose) 500 mls @ 18.75 mls/hr IV [facility]; Protocol Last Admin: 03/14/19 06:50 Dose: 8 mcg/min, 30 mls/hr Vasopressin 50 units/ Sodium (Chloride) 100 mls @ 4 mls/hr IVPB [facility]; Protocol Last Admin: 03/15/19 09:00 Dose: 5 units/hr, 10 mls/hr Meropenem 500 mg/ Dextrose 100 mls @ 200 mls/hr IVPB DAILY [facility] Last Admin: 03/15/19 11:04 Dose: 200 mls/hr Insulin Aspart (Novolog Vial Sliding Scale -) 1 vial SQ Q6HPO [facility]; Protocol Last Admin: 03/15/19 07:20 Dose: Not Given Midodrine (Proamatine -) 10 mg PO TID-MID [facility] Last Admin: 03/15/19 11:04 Dose: Not Given Multivitamins/Minerals/Vitamin C (Tab-A-Vit -) 1 tab PO DAILY [facility] Last Admin: 03/15/19 11:05 Dose: Not Given Pantoprazole Sodium (Protonix Iv) 40 mg IVPUSH BID [facility] Last Admin: 03/15/19 11:04 Dose: 40 mg Tamsulosin HCl (Flomax -) 0.4 mg PO HS [facility] Last Admin: 03/14/19 21:35 Dose: Not Given - Objective Vital Signs: Vital Signs Temperature 98.3 F 03/15/19 06:00 Pulse Rate 85 03/15/19 08:00 Respiratory Rate 20 03/15/19 08:00 Blood Pressure 110/64 03/15/19 08:00 O2 Sat by Pulse Oximetry (%) 100 03/15/19 05:30 Constitutional: Yes: No Distress Eyes: Yes: Conjunctiva Clear Cardiovascular: Yes: Regular Rate and Rhythm, S1, S2 Respiratory: Yes: Mechanically Ventilated Gastrointestinal: Yes: Normal Bowel Sounds, Soft. No: Tenderness Edema: Yes Labs: CBC, BMP 03/15/19 05:10 03/15/19 05:10 INR, PTT INR 1.44 (0.83-1.09) H 02/22/19 05:40 Assessment/Plan SEPSIS/ SEPTIC SHOCK ESBL BACTEREMIA/ SEPSIS RESP FAILURE FEVER/LEUKOCYTOSIS CONTINUE MEROPENEM VENTILATORY/ HEMODYNAMIC SUPPORT PROGNOSIS POOR
--- NOTE | 2019-03-15 12:46 | PN ---
Progress Note, Physician History of Present Illness: Pt seen and examined at bedside. He remains in the ICU and remains intubated. - Current Medication List Current Medications: Active Medications Acetaminophen (Ofirmev Injection -) 1,000 mg IVPB Q6H PRN PRN Reason: FEVER Last Admin: 03/12/19 01:54 Dose: 1,000 mg Amino Acids (Prosource No Carb Liquid Pkt) 30 ml PO TID [facility] Last Admin: 03/15/19 07:01 Dose: Not Given Apixaban (Eliquis -) 2.5 mg PO BID [facility] Last Admin: 03/15/19 11:04 Dose: Not Given Atorvastatin Calcium (Lipitor -) 20 mg PO HS [facility] Last Admin: 03/14/19 21:35 Dose: Not Given Collagenase (Santyl -) 1 applic TP DAILY [facility]; Protocol Last Admin: 03/15/19 11:04 Dose: 1 applic Escitalopram Oxalate (Lexapro -) 10 mg PO DAILY [facility] Last Admin: 03/15/19 11:04 Dose: Not Given Hydrocortisone Sodium Succinate (Solu-Cortef -) 100 mg IVPB Q8H-IV [facility] Last Admin: 03/15/19 02:05 Dose: 100 mg Fentanyl 500 mcg/ Dextrose 100 mls @ 1 mls/hr IVPB TITR [facility] Last Admin: 03/15/19 08:40 Dose: 25 mcg/hr, 5 mls/hr Norepinephrine Bitartrate 8, (000 mcg/ Dextrose) 500 mls @ 18.75 mls/hr IV [facility]; Protocol Last Admin: 03/14/19 06:50 Dose: 8 mcg/min, 30 mls/hr Vasopressin 50 units/ Sodium (Chloride) 100 mls @ 4 mls/hr IVPB [facility]; Protocol Last Admin: 03/15/19 09:00 Dose: 5 units/hr, 10 mls/hr Meropenem 500 mg/ Dextrose 100 mls @ 200 mls/hr IVPB DAILY [facility] Last Admin: 03/15/19 11:04 Dose: 200 mls/hr Insulin Aspart (Novolog Vial Sliding Scale -) 1 vial SQ Q6HPO [facility]; Protocol Last Admin: 03/15/19 07:20 Dose: Not Given Midodrine (Proamatine -) 10 mg PO TID-MID [facility] Last Admin: 03/15/19 11:04 Dose: Not Given Multivitamins/Minerals/Vitamin C (Tab-A-Vit -) 1 tab PO DAILY [facility] Last Admin: 03/15/19 11:05 Dose: Not Given Pantoprazole Sodium (Protonix Iv) 40 mg IVPUSH BID [facility] Last Admin: 03/15/19 11:04 Dose: 40 mg Tamsulosin HCl (Flomax -) 0.4 mg PO HS [facility] Last Admin: 03/14/19 21:35 Dose: Not Given - Objective Vital Signs: Vital Signs Temperature 98.3 F 03/15/19 06:00 Pulse Rate 86 03/15/19 09:45 Respiratory Rate 14 03/15/19 11:50 Blood Pressure 110/64 03/15/19 08:00 O2 Sat by Pulse Oximetry (%) 99 03/15/19 09:45 Constitutional: Yes: Calm Eyes: Yes: Conjunctiva Clear HENT: Yes: Atraumatic Neck: Yes: Supple Cardiovascular: Yes: S1, S2 Respiratory: Yes: Mechanically Ventilated Gastrointestinal: Yes: Soft Genitourinary: Yes: Incontinence Musculoskeletal: Yes: Muscle Weakness Edema: No Wound/Incision: Yes: Dressing Dry and Intact Neurological: Yes: Lethargy Labs: CBC, BMP 03/15/19 05:10 03/15/19 05:10 INR, PTT INR 1.44 (0.83-1.09) H 02/22/19 05:40 Problem List - Problems (1) ESRD (end stage renal disease) on dialysis Code(s): N18.6 - END STAGE RENAL DISEASE; Z99.2 - DEPENDENCE ON RENAL DIALYSIS Assessment/Plan Current Medications Generic Name Dose Route Start Last Admin Trade Name Kassandra PRN Reason Stop Dose Admin Acetaminophen 1,000 mg 03/11/19 04:18 03/12/19 01:54 Ofirmev Injection - IVPB 1,000 mg Q6H PRN Administration FEVER Amino Acids 30 ml 02/21/19 22:00 03/15/19 07:01 Prosource No Carb Liquid Pkt PO Not Given TID [facility] Apixaban 2.5 mg 02/21/19 22:00 03/15/19 11:04 Eliquis - PO Not Given BID [facility] Atorvastatin Calcium 20 mg 02/21/19 22:00 03/14/19 21:35 Lipitor - PO Not Given HS [facility] Collagenase 1 applic 02/22/19 10:00 03/15/19 11:04 Santyl - TP 1 applic DAILY [facility] Administration Protocol Escitalopram Oxalate 10 mg 02/22/19 10:00 03/15/19 11:04 Lexapro - PO Not Given DAILY [facility] Hydrocortisone Sodium Succinate 100 mg 03/11/19 11:00 03/15/19 02:05 Solu-Cortef - IVPB 100 mg Q8H-IV [facility] Administration Fentanyl 500 mcg/ Dextrose 100 mls @ 1 mls/hr 03/11/19 00:45 03/15/19 08:40 IVPB 25 mcg/hr TITR [facility] 5 mls/hr Administration 5 MCG/HR Norepinephrine Bitartrate 8, 500 mls @ 18.75 mls/hr 03/11/19 05:58 03/14/19 06:50 000 mcg/ Dextrose IV 8 mcg/min [facility] 30 mls/hr Administration Protocol 5 MCG/MIN Vasopressin 50 units/ Sodium 100 mls @ 4 mls/hr 03/11/19 06:30 03/15/19 09:00 Chloride IVPB 5 units/hr [facility] 10 mls/hr Administration Protocol 2 UNITS/HR Meropenem 500 mg/ Dextrose 100 mls @ 200 mls/hr 03/11/19 10:00 03/15/19 11:04 IVPB 200 mls/hr DAILY [facility] Administration Insulin Aspart 1 vial 03/13/19 12:00 03/15/19 07:20 Novolog Vial Sliding Scale - SQ Not Given Q6HPO [facility] Protocol Midodrine 10 mg 03/02/19 14:00 03/15/19 11:04 Proamatine - PO Not Given TID-MID [facility] Multivitamins/Minerals/Vitamin C 1 tab 02/22/19 10:00 03/15/19 11:05 Tab-A-Vit - PO Not Given DAILY [facility] Pantoprazole Sodium 40 mg 03/14/19 22:00 03/15/19 11:04 Protonix Iv IVPUSH 40 mg BID [facility] Administration Tamsulosin HCl 0.4 mg 02/21/19 22:00 03/14/19 21:35 Flomax - PO Not Given HS [facility] Impression 1. ESRD 2. gangrene 3. DM 4. hyperlipidemia 5. HTN 6. gout 7. proteinuria 8. hypotension 9. sepsis 10. resp failure 11. GI bleed Plan - HD tomorrow - wound care - pt doing poorly - abx per ID - vent support - feeds will be restarted - monitor lytes - 3 k bath on hd
--- NOTE | 2019-03-15 13:03 | PN ---
Physical Exam: SUBJECTIVE: Patient seen and examined at bedside Continues to require pressers and is intubated. No overnight events. No reaction to noxious stimuli OBJECTIVE: Vital Signs Period Temp Pulse Resp BP Sys/Zamorano Pulse Ox Last 24 Hr 97.9 F-98.5 F 64-97 13-24 90-110/56-69 99-100 GENERAL: The patient is intubated and sedated. No response to noxious stimuli HEAD: Normal with no signs of trauma. EYES: PERRL, extraocular movements intact, sclera anicteric, conjunctiva clear. No ptosis. ENT: Ears normal, nares patent, oropharynx clear without exudates, moist mucous membranes. NECK: Trachea midline, full range of motion, supple. LUNGS: Breath sounds equal, clear to auscultation bilaterally, no wheezes, no crackles, no accessory muscle use. HEART: Regular rate and rhythm, S1, S2 without murmur, rub or gallop. ABDOMEN: Soft, nontender, nondistended, normoactive bowel sounds, no guarding, no rebound, no hepatosplenomegaly, no masses. EXTREMITIES: bilateral gangrene lower ext down to the tendon on the left with unstageble sacral ulcer NEUROLOGICAL: Cranial nerves II through XII grossly intact. Follows basic commands PSYCH: Normal mood, normal affect. SKIN: bilateral gangrene lower ext down to the tendon on the left with purulent foul smelling discharge. Unstageble sacral ulcer Laboratory Results - last 24 hr 03/14/19 03/14/19 03/14/19 12:00 13:52 15:40 WBC RBC Hgb Hct MCV MCH MCHC RDW Plt Count MPV Absolute Neuts (auto) Neutrophils % Lymphocytes % Monocytes % Eosinophils % Basophils % Nucleated RBC % Sodium Potassium 3.7 Chloride Carbon Dioxide Anion Gap BUN Creatinine Est GFR (CKD-EPI)AfAm Est GFR (CKD-EPI)NonAf POC Glucometer 147 Random Glucose Calcium Phosphorus Magnesium Albumin Blood Type A POSITIVE Antibody Screen Negative Crossmatch See Detail 03/14/19 03/15/19 03/15/19 17:45 01:53 05:10 WBC 13.0 H RBC 3.25 L Hgb 9.6 L Hct 30.4 L D MCV 93.5 MCH 29.4 MCHC 31.5 L RDW 19.2 H Plt Count 112 L MPV 10.6 D Absolute Neuts (auto) 10.9 H Neutrophils % 84.4 H Lymphocytes % 12.0 Monocytes % 2.7 L Eosinophils % 0.6 D Basophils % 0.3 Nucleated RBC % 0 Sodium Potassium Chloride Carbon Dioxide Anion Gap BUN Creatinine Est GFR (CKD-EPI)AfAm Est GFR (CKD-EPI)NonAf POC Glucometer 150 152 Random Glucose Calcium Phosphorus Magnesium Albumin Blood Type Antibody Screen Crossmatch 03/15/19 05:10 WBC RBC Hgb Hct MCV MCH MCHC RDW Plt Count MPV Absolute Neuts (auto) Neutrophils % Lymphocytes % Monocytes % Eosinophils % Basophils % Nucleated RBC % Sodium 130 L Potassium 3.7 Chloride 97 L Carbon Dioxide 24 Anion Gap 9 BUN 23.1 H Creatinine 2.1 H Est GFR (CKD-EPI)AfAm 34.89 Est GFR (CKD-EPI)NonAf 30.10 POC Glucometer Random Glucose 152 H Calcium 6.7 L* Phosphorus 3.5 Magnesium 1.9 Albumin 1.2 L Blood Type Antibody Screen Crossmatch Active Medications Generic Name Dose Route Start Last Admin Trade Name Freq PRN Reason Stop Dose Admin Acetaminophen 1,000 mg 03/11/19 04:18 03/12/19 01:54 Ofirmev Injection - IVPB 1,000 mg Q6H PRN Administration FEVER Amino Acids 30 ml 02/21/19 22:00 03/15/19 07:01 Prosource No Carb Liquid Pkt PO Not Given TID CHANTELL Apixaban 2.5 mg 02/21/19 22:00 03/15/19 11:04 Eliquis - PO Not Given BID CHANTELL Atorvastatin Calcium 20 mg 02/21/19 22:00 03/14/19 21:35 Lipitor - PO Not Given HS CHANTELL Collagenase 1 applic 02/22/19 10:00 03/15/19 11:04 Santyl - TP 1 applic DAILY CHANTELL Administration Protocol Epoetin Jose 10,000 unit/ 12,000 unit 03/16/19 10:00 Epoetin Jose 2,000 unit IVPUSH 03/16/19 10:01 ONCE ONE Escitalopram Oxalate 10 mg 02/22/19 10:00 03/15/19 11:04 Lexapro - PO Not Given DAILY CHANTELL Hydrocortisone Sodium Succinate 100 mg 03/11/19 11:00 03/15/19 11:00 Solu-Cortef - IVPB 100 mg Q8H-IV CHANTELL Administration Fentanyl 500 mcg/ Dextrose 100 mls @ 1 mls/hr 03/11/19 00:45 03/15/19 08:40 IVPB 25 mcg/hr TITR CHANTELL 5 mls/hr Administration 5 MCG/HR Norepinephrine Bitartrate 8, 500 mls @ 18.75 mls/hr 03/11/19 05:58 03/14/19 06:50 000 mcg/ Dextrose IV 8 mcg/min ASDIR CHANTELL 30 mls/hr Administration Protocol 5 MCG/MIN Vasopressin 50 units/ Sodium 100 mls @ 4 mls/hr 03/11/19 06:30 03/15/19 09:00 Chloride IVPB 5 units/hr ASDIR CHANTELL 10 mls/hr Administration Protocol 2 UNITS/HR Meropenem 500 mg/ Dextrose 100 mls @ 200 mls/hr 03/11/19 10:00 03/15/19 11:04 IVPB 200 mls/hr DAILY CHANTELL Administration Sodium Chloride 250 mls @ 3,000 mls/hr 03/15/19 12:46 Normal Saline - IV 03/16/19 12:46 PRN PRN Hypotension during Dialysis Insulin Aspart 1 vial 03/13/19 12:00 03/15/19 07:20 Novolog Vial Sliding Scale - SQ Not Given Q6HPO [facility] Protocol Midodrine 10 mg 03/02/19 14:00 03/15/19 11:04 Proamatine - PO Not Given TID-MID [facility] Multivitamins/Minerals/Vitamin C 1 tab 02/22/19 10:00 03/15/19 11:05 Tab-A-Vit - PO Not Given DAILY CHANTELL Pantoprazole Sodium 40 mg 03/14/19 22:00 03/15/19 11:04 Protonix Iv IVPUSH 40 mg BID CHANTELL Administration Tamsulosin HCl 0.4 mg 02/21/19 22:00 03/14/19 21:35 Flomax - PO Not Given HS CHANTELL ASSESSMENT/PLAN: Again attempted to contact pt daughter with no answer, message placed on voicemail, no return call. Ethics meeting done, waiting for input from Hospital Law team for guidance Pt continues to require pressers and is intubated. H/H shows improvement today after 2 units and HD yesterday #septic shock 2/2 DM gangrenous B/L feet infx, Infected sacral decub and scrotal ulcer, and GN bacteremia (proteus, prevotella) - requiring ICU and pressors. Now w/ hypoxic respiratory failure possibly 2/2 developing aspiration PNA (aspirated over the weekend) requiring intubation/sedation. CXR 03/11 shows questionable infiltrate L base. +Leukocytosis. afebrile now for >24hr -old cx with E coli, ESBL, MRSA, and VRE. -contact isolation for MDRO -s/p Vanc and Zosyn in the ED, Gentamicin x1, Meropenem x2 in ICU -Bcx 02/21/19 growing GN cher - proteus and prevotella -ucx neg -wound cx E coli, morganella -Bcx 02/23/19 neg -03/11/19 sputum cx MRSA, pseudomonas A,ecoli esbl, acinetobacter ; bcx ecoli esbl bacteremia. -ID consulted, Rangel -lactic acid resolved -palliative care consulted -s/p CTX 2g/flagyl, c/w Meropenem day #20 total abx, ID recs appreciated. -s/p vanc and gentamicin x1 yesterday per ID -Aspiration precautions. -c/w Levophed 8, vasopressin 6, stress steroids. Titrate pressors to keep MAP>65 -fentanyl 25mcg for comfort and sedation -vascular surgery consulted, Dr harry, for wound care. amputation indicated, but family not amenable. cont GOC #Seizure-like myoclonus 03/12/19 - noted overnight. resolved w/ ativan 1mg and loaded w/ keppra. see Dr Overton note for further details c/w keppra 250 bid #ESRD on HD (MWF) -nephro consulted (Dr. Henriquez) -HD as per nephvito marino held by nephro for low phos. #Acute on chronic anemia likely 2/2 ESRD -monitor H/H #Severe protein calorie malnutrition -albumin 1.1, prealbumin 3.5 -thin appearing, decreased muscle mass and fat -decreased overall PO intake -Magic cup, Ensure pudding for increased density of nutritional intake. Now on NGT while intubated #COPD -keep SpO2>90% -Duonebs q6h PRN #Dm ISS BGM ACHS #H/o hypotension : c/w home midodrine monitor vitals # h/o afib c/w elequis 2.5 bid #FEN -Not on any standing fluids -replete prn -NGT on tube feeds #Prophylaxis -Eliquis 2.5mg BID -Protonix IV while on AC and pressors -bacid restarted tube feeds pivot Visit type - Emergency Visit Emergency Visit: No - New Patient This patient is new to me today: No - Critical Care Critical Care patient: Yes Total Critical Care Time (in minutes): 40 Critical Care Statement: The care of this patient involved high complexity decision making to prevent further life threatening deterioration of the patient 's condition and/or to evaluate & treat vital organ system(s) failure or risk of failure.
--- NOTE | 2019-03-15 16:27 | PN ---
Teaching Attending Note Name of Resident: Mathew Adorno ATTENDING PHYSICIAN STATEMENT I saw and evaluated the patient. I reviewed the resident's note and discussed the case with the resident. I agree with the resident's findings and plan as documented. SUBJECTIVE: No new events , patient is in ICU . OBJECTIVE: Vital Signs Temperature 98.3 F 03/15/19 06:00 Pulse Rate 86 03/15/19 09:45 Respiratory Rate 19 03/15/19 16:15 Blood Pressure 110/64 03/15/19 08:00 O2 Sat by Pulse Oximetry (%) 99 03/15/19 09:45 GENERAL: The patient is intubated , sedated. HEAD: Normal with no signs of trauma. EYES: extraocular movements intact, sclera anicteric, ENT: intubated and sedated . NECK: Trachea midline, positive for ET-tube LUNGS: intubated , sedated . HEART: RRR , S1, S2 without murmur, rub or gallop. ABDOMEN: Soft, NT, ND, BS positive, no guarding, no rebound, no hepatosplenomegaly, no masses. EXTREMITIES: gangrenous lower extremities SKIN: Warm. CBCD WBC 13.0 K/mm3 (4.0-10.0) H 03/15/19 05:10 RBC 3.25 M/mm3 (4.00-5.60) L 03/15/19 05:10 Hgb 9.6 GM/dL (11.7-16.9) L 03/15/19 05:10 Hct 30.4 % (35.4-49) L D 03/15/19 05:10 MCV 93.5 fl (80-96) 03/15/19 05:10 MCHC 31.5 g/dl (32.0-35.9) L 03/15/19 05:10 RDW 19.2 % (11.9-15.9) H 03/15/19 05:10 Plt Count 112 K/MM3 (134-434) L 03/15/19 05:10 MPV 10.6 fl (7.5-11.1) D 03/15/19 05:10 CMP Sodium 130 mmol/L (136-145) L 03/15/19 05:10 Potassium 3.7 mmol/L (3.5-5.1) 03/15/19 05:10 Chloride 97 mmol/L (98-107) L 03/15/19 05:10 Carbon Dioxide 24 mmol/L (21-32) 03/15/19 05:10 Anion Gap 9 MMOL/L (8-16) 03/15/19 05:10 BUN 23.1 mg/dL (7-18) H 03/15/19 05:10 Creatinine 2.1 mg/dL (0.55-1.3) H 03/15/19 05:10 Random Glucose 152 mg/dL (74-106) H 03/15/19 05:10 Calcium 6.7 mg/dL (8.5-10.1) L* 03/15/19 05:10 Total Bilirubin 0.6 mg/dL (0.2-1) 03/10/19 05:00 AST 24 U/L (15-37) 03/10/19 05:00 ALT 8 U/L (13-61) L 03/10/19 05:00 Alkaline Phosphatase 313 U/L (45-117) H 03/10/19 05:00 Total Protein 4.8 g/dl (6.4-8.2) L 03/10/19 05:00 Albumin 1.2 g/dl (3.4-5.0) L 03/15/19 05:10 CARDIAC ENZYMES Troponin I < 0.02 ng/ml (0.00-0.05) 02/21/19 15:10 Home Medications Medication Instructions Recorded Albuterol 2.5/Ipratropium 0.5 1 amp NEB Q6H PRN #0 amp 07/12/17 [Duoneb -] Allopurinol [Zyloprim -] 100 mg PO DAILY tablet 07/12/17 Atorvastatin Ca [Lipitor] 20 mg PO HS tablet 07/12/17 Collagenase Clostridium Hist. 1 applic TP DAILY tube 09/06/18 [Santyl -] Albuterol Sulfate [Proair Hfa] 2 puff IH Q6H PRN 10/29/18 Escitalopram Oxalate [Lexapro -] 10 mg PO DAILY 10/29/18 Folic Acid/Vit B Complex and C 1 each PO DAILY 10/29/18 [Dialyvite Tablet] Midodrine HCl 10 mg PO MOWEFR 10/29/18 Sevelamer Carbonate [Renvela -] 1,600 mg PO TID 10/29/18 Tamsulosin HCl [Flomax] 0.4 mg PO HS 10/29/18 Insulin Sliding Scale [Novolog 1 vial SQ TIDAC #1 vial 11/17/18 Vial Sliding Scale -] Apixaban [Eliquis -] 5 mg PO BID #30 tablet MDD 2 11/19/18 Collagenase Clostridium Hist. 1 applic TP DAILY #1 tube 01/17/19 [Santyl -] Amoxicillin/Potassium Clav 1 each PO DAILY #7 tablet 02/06/19 [Augmentin 500-125 Tablet] Megestrol Acetate Oral Susp 400 mg PO DAILY #20 cup 02/06/19 [Megace Liquid -] Protein Supplement [Prosource] 275 gm PO TID #60 powder 02/06/19 Lactobacillus Acidophilus [Bacid -] 1 tab PO DAILY #60 tab 02/19/19 Midodrine HCl [Proamatine -] 5 mg PO SuTuThSa #60 tablet 02/19/19 traMADol HCL [Ultram -] 50 mg PO Q6H PRN #60 tablet MDD 4 02/19/19 Current Medications Generic Name Dose Route Start Last Admin Trade Name Freq PRN Reason Stop Dose Admin Acetaminophen 1,000 mg 03/11/19 04:18 03/12/19 01:54 Ofirmev Injection - IVPB 1,000 mg Q6H PRN Administration FEVER Amino Acids 30 ml 02/21/19 22:00 03/15/19 16:22 Prosource No Carb Liquid Pkt PO Not Given TID CHANTELL Apixaban 2.5 mg 02/21/19 22:00 03/15/19 11:04 Eliquis - PO Not Given BID CHANTELL Atorvastatin Calcium 20 mg 02/21/19 22:00 03/14/19 21:35 Lipitor - PO Not Given HS CHANTELL Collagenase 1 applic 02/22/19 10:00 03/15/19 11:04 Santyl - TP 1 applic DAILY CHANTELL Administration Protocol Epoetin Jose 10,000 unit/ 12,000 unit 03/16/19 10:00 Epoetin Jose 2,000 unit IVPUSH 03/16/19 10:01 ONCE ONE Escitalopram Oxalate 10 mg 02/22/19 10:00 03/15/19 11:04 Lexapro - PO Not Given DAILY CHANTELL Hydrocortisone Sodium Succinate 100 mg 03/11/19 11:00 03/15/19 11:00 Solu-Cortef - IVPB 100 mg Q8H-IV CHANTELL Administration Fentanyl 500 mcg/ Dextrose 100 mls @ 1 mls/hr 03/11/19 00:45 03/15/19 08:40 IVPB 25 mcg/hr TITR CHANTELL 5 mls/hr Administration 5 MCG/HR Norepinephrine Bitartrate 8, 500 mls @ 18.75 mls/hr 03/11/19 05:58 03/14/19 06:50 000 mcg/ Dextrose IV 8 mcg/min ASDIR CHANTELL 30 mls/hr Administration Protocol 5 MCG/MIN Vasopressin 50 units/ Sodium 100 mls @ 4 mls/hr 03/11/19 06:30 03/15/19 09:00 Chloride IVPB 5 units/hr ASDIR CHANTELL 10 mls/hr Administration Protocol 2 UNITS/HR Meropenem 500 mg/ Dextrose 100 mls @ 200 mls/hr 03/11/19 10:00 03/15/19 11:04 IVPB 200 mls/hr DAILY CHANTELL Administration Sodium Chloride 250 mls @ 3,000 mls/hr 03/15/19 12:46 Normal Saline - IV 03/16/19 12:46 PRN PRN Hypotension during Dialysis Insulin Aspart 1 vial 03/13/19 12:00 03/15/19 13:00 Novolog Vial Sliding Scale - SQ 2 units Q6HPO CHANTELL Administration Protocol Midodrine 10 mg 03/02/19 14:00 03/15/19 14:00 Proamatine - PO Not Given TID-MID CHANTELL Multivitamins/Minerals/Vitamin C 1 tab 02/22/19 10:00 03/15/19 11:05 Tab-A-Vit - PO Not Given DAILY CHANTELL Pantoprazole Sodium 40 mg 03/14/19 22:00 03/15/19 11:04 Protonix Iv IVPUSH 40 mg BID CHANTELL Administration Tamsulosin HCl 0.4 mg 02/21/19 22:00 03/14/19 21:35 Flomax - PO Not Given HS CHANTELL ASSESSMENT AND PLAN: Patient is a 73 y/o man with h/o dementia, CVA, DM, COPD, ESRD, gout, HTN, HLP, recent admission 01/31-02/19 during which he was treated for sepsis due to infected b/l feet ulcers/gangrene. He was sent form NH due to poor po intake, and non healing wounds # Acute hypoxic respiratory failure s/p intubation in ICU vent management and sedation as per ICU team # Septic shock due GNR bacteremia ecoli esbl bacteremia due to gangrenous infection of LEs cont meropenem ,discussed with ID, on 2 pressors continue # Infected sacral decub and scrotal ulcer continue current # ESRD on HD per schedule , nephro on the case # DM SSI with coverage # anemia # Acute hyponatremia 130; monitor , on NS continue # Hx of BPH: on Flomax GI Px: PPI Poor prognosis. Appreciate Palliative care and Ethics committee help will wait for further recommendations. discussed with Palliatic care nurse; meeting will be arranged regarding goal of care this coming Monday.
[2019-03-15] MEDS: NOREPINEPHRINE BITARTRATE 8,000 MCG in DEXTROSE 5%-WATER - 492 ML IV SCH (18:02)
[2019-03-15] MEDS: ATORVASTATIN CA 20 MG TABLET (FP) PO SCH (21:22)
[2019-03-15] MEDS: TAMSULOSIN HCL 0.4 MG CAP PO SCH (21:22)
[2019-03-16] MEDS: INSULIN SLIDING SCALE (NOVOLOG) 1 VIAL SQ SCH ×3 (00:36→12:18)
[2019-03-16] MEDS ORDERED: AMIODARONE HCL 150 MG/3 ML VIAL IVPUSH ONE (01:22)
[2019-03-16] MEDS: FENTANYL INJECTION 500 MCG in DEXTROSE 5%-WATER - 90 ML IVPB SCH (02:07)
[2019-03-16] MEDS: HYDROCORTISONE SOD SUCCINATE 100 MG/2 ML VIAL IVPB SCH ×2 (02:09→10:08)
[2019-03-16] MEDS ORDERED: fentaNYL CITRATE 250 MCG/5 ML VIAL ONE (03:36)
[2019-03-16] MEDS: AMINO ACIDS/PROTEIN HYDROLYS 30 ML LIQUID.PKT PO SCH ×3 (05:50→22:48)
[2019-03-16] MEDS: NOREPINEPHRINE BITARTRATE 8,000 MCG in DEXTROSE 5%-WATER - 492 ML IV SCH (06:25)
[2019-03-16 06:27] LABS: HEMATOCRIT 32.5 % (35.4-49); HEMOGLOBIN 10.3 GM/dL (11.7-16.9); MCH 29.2 pg (25.7-33.7); MCHC 31.7 g/dl (32.0-35.9); MEAN CELL VOLUME 92.3 fl (80-96); PLATELET COUNT 122 K/MM3 (134-434); RBC 3.52 M/mm3 (4.00-5.60); RDW 18.9 % (11.9-15.9); WHITE BLOOD COUNT 17.8 K/mm3 (4.0-10.0)
[2019-03-16] MEDS: VASOPRESSIN 50 UNITS in SODIUM CHLORIDE 97.5 ML IVPB SCH (06:39)
[2019-03-16 06:51] LABS: ALBUMIN 1.2 g/dl (3.4-5.0); BILIRUBIN,TOTAL 1.6 mg/dL (0.2-1); BLOOD UREA NITROGEN 29.8 mg/dL (7-18); CREATININE 2.4 mg/dL (0.55-1.3); MAGNESIUM 2.1 mg/dL (1.8-2.4); PHOSPHOROUS 4.1 mg/dL (2.5-4.9); POTASSIUM 3.8 mmol/L (3.5-5.1); TOT PROT 5.2 g/dl (6.4-8.2)
[2019-03-16 06:54] LABS: CALCIUM 6.8 mg/dL (8.5-10.1)
[2019-03-16] MEDS ORDERED: PT OWN MED DRAWER 7, Y5N ONE (07:42)
--- NOTE | 2019-03-16 08:54 | PN ---
Progress Note (short form) - Note Progress Note: Renal follow up for ESRD on HD Coverage for Dr. Henriquez Pt seen and examined in the ICU remains orally intubated on Levophed and Vasopressin no overnight events FiO2 is 40% Vital Signs Temperature 98.1 F 03/16/19 06:00 Pulse Rate 87 03/16/19 06:47 Respiratory Rate 21 H 03/16/19 06:30 Blood Pressure 100/56 L 03/16/19 06:00 O2 Sat by Pulse Oximetry (%) 100 03/16/19 06:47 Intake & Output 03/13/19 03/14/19 03/15/19 03/16/19 23:59 23:59 23:59 23:59 Intake Total 2619 2379.9 580 498.8 Output Total 0 650 0 Balance 2619 1729.9 580 498.8 Weight 74.571 kg 80.6 kg 78.109 kg 75.523 kg NAD on vent sedated RRR Dec BS No LE edema CBC, BMP 03/16/19 05:30 03/16/19 05:30 Current Medications Acetaminophen (Ofirmev Injection -) 1,000 mg IVPB Q6H PRN PRN Reason: FEVER Last Admin: 03/12/19 01:54 Dose: 1,000 mg Amino Acids (Prosource No Carb Liquid Pkt) 30 ml PO TID CHANTELL Last Admin: 03/16/19 05:50 Dose: 30 ml Apixaban (Eliquis -) 2.5 mg PO BID CHANTELL Last Admin: 03/15/19 21:22 Dose: 2.5 mg Atorvastatin Calcium (Lipitor -) 20 mg PO HS CHANTELL Last Admin: 03/15/19 21:22 Dose: 20 mg Collagenase (Santyl -) 1 applic TP DAILY CHANTELL; Protocol Last Admin: 03/15/19 11:04 Dose: 1 applic Epoetin Jose 10,000 unit/ (Epoetin Jose 2,000 unit) 12,000 unit IVPUSH ONCE ONE Stop: 03/16/19 10:01 Escitalopram Oxalate (Lexapro -) 10 mg PO DAILY CHANTELL Last Admin: 03/15/19 11:04 Dose: Not Given Hydrocortisone Sodium Succinate (Solu-Cortef -) 100 mg IVPB Q8H-IV CHANTELL Last Admin: 03/16/19 02:09 Dose: 100 mg Fentanyl 500 mcg/ Dextrose 100 mls @ 1 mls/hr IVPB TITR [facility] Last Admin: 03/16/19 02:07 Dose: Not Given Norepinephrine Bitartrate 8, (000 mcg/ Dextrose) 500 mls @ 18.75 mls/hr IV ASDIR [facility]; Protocol Last Admin: 03/16/19 06:25 Dose: Not Given Vasopressin 50 units/ Sodium (Chloride) 100 mls @ 4 mls/hr IVPB ASDIR CHANTELL; Protocol Last Admin: 03/16/19 06:39 Dose: Not Given Meropenem 500 mg/ Dextrose 100 mls @ 200 mls/hr IVPB DAILY CHANTELL Last Admin: 03/15/19 11:04 Dose: 200 mls/hr Sodium Chloride (Normal Saline -) 250 mls @ 3,000 mls/hr IV PRN PRN PRN Reason: Hypotension during Dialysis Stop: 03/16/19 12:46 Insulin Aspart (Novolog Vial Sliding Scale -) 1 vial SQ Q6HPO [facility]; Protocol Last Admin: 03/16/19 05:49 Dose: 2 units Midodrine (Proamatine -) 10 mg PO TID-MID [facility] Last Admin: 03/15/19 18:05 Dose: 10 mg Multivitamins/Minerals/Vitamin C (Tab-A-Vit -) 1 tab PO DAILY [facility] Last Admin: 03/15/19 11:05 Dose: Not Given Pantoprazole Sodium (Protonix Iv) 40 mg IVPUSH BID [facility] Last Admin: 03/15/19 21:27 Dose: 40 mg Tamsulosin HCl (Flomax -) 0.4 mg PO HS [facility] Last Admin: 03/15/19 21:22 Dose: 0.4 mg Impression: 1. ESRD 2. gangrene of LE 3. DM 4. hyperlipidemia 5. HTN 6. gout 7. proteinuria 8. hypotension 9. sepsis on 2 pressers 10. resp failure on vent via ET Tube 11. GI bleed 12. Anemia Plan HD today with UF as tolerated continue ICU monitoring and mangement keep MAP > 65 using vaospresser vent support as per ICU continue antibiotics as per ID Dose all meds for intermittent HD Trend H/H, continue epogen with HD. NO need for transfusion at this time Caden Grimm DO
--- NOTE | 2019-03-16 09:10 | PN ---
Progress Note, Physician History of Present Illness: UNRESPONSIVE ON VENTILATOR TEMPS REMAIN DOWN AFEBRILE HYPOTENSIVE ON PRESSORS AFEBRILE WBC REMAINS ELEVATED - Current Medication List Current Medications: Active Medications Acetaminophen (Ofirmev Injection -) 1,000 mg IVPB Q6H PRN PRN Reason: FEVER Last Admin: 03/12/19 01:54 Dose: 1,000 mg Amino Acids (Prosource No Carb Liquid Pkt) 30 ml PO TID CHANTELL Last Admin: 03/16/19 05:50 Dose: 30 ml Apixaban (Eliquis -) 2.5 mg PO BID CHANTELL Last Admin: 03/15/19 21:22 Dose: 2.5 mg Atorvastatin Calcium (Lipitor -) 20 mg PO HS CHANTELL Last Admin: 03/15/19 21:22 Dose: 20 mg Collagenase (Santyl -) 1 applic TP DAILY CHANTELL; Protocol Last Admin: 03/15/19 11:04 Dose: 1 applic Epoetin Jose 10,000 unit/ (Epoetin Jose 2,000 unit) 12,000 unit IVPUSH ONCE ONE Stop: 03/16/19 10:01 Escitalopram Oxalate (Lexapro -) 10 mg PO DAILY CHANTELL Last Admin: 03/15/19 11:04 Dose: Not Given Hydrocortisone Sodium Succinate (Solu-Cortef -) 100 mg IVPB Q8H-IV CHANTELL Last Admin: 03/16/19 02:09 Dose: 100 mg Fentanyl 500 mcg/ Dextrose 100 mls @ 1 mls/hr IVPB TITR [facility]ANTELL Last Admin: 03/16/19 02:07 Dose: Not Given Norepinephrine Bitartrate 8, (000 mcg/ Dextrose) 500 mls @ 18.75 mls/hr IV ASDIR CHANTELL; Protocol Last Admin: 03/16/19 06:25 Dose: Not Given Vasopressin 50 units/ Sodium (Chloride) 100 mls @ 4 mls/hr IVPB ASDIR CHANTELL; Protocol Last Admin: 03/16/19 06:39 Dose: Not Given Meropenem 500 mg/ Dextrose 100 mls @ 200 mls/hr IVPB DAILY [facility]ANTELL Last Admin: 03/15/19 11:04 Dose: 200 mls/hr Sodium Chloride (Normal Saline -) 250 mls @ 3,000 mls/hr IV PRN PRN PRN Reason: Hypotension during Dialysis Stop: 03/16/19 12:46 Insulin Aspart (Novolog Vial Sliding Scale -) 1 vial SQ Q6HPO [facility]; Protocol Last Admin: 03/16/19 05:49 Dose: 2 units Midodrine (Proamatine -) 10 mg PO TID-MID [facility] Last Admin: 03/15/19 18:05 Dose: 10 mg Multivitamins/Minerals/Vitamin C (Tab-A-Vit -) 1 tab PO DAILY [facility] Last Admin: 03/15/19 11:05 Dose: Not Given Pantoprazole Sodium (Protonix Iv) 40 mg IVPUSH BID [facility] Last Admin: 03/15/19 21:27 Dose: 40 mg Tamsulosin HCl (Flomax -) 0.4 mg PO HS [facility] Last Admin: 03/15/19 21:22 Dose: 0.4 mg - Objective Vital Signs: Vital Signs Temperature 98.1 F 03/16/19 06:00 Pulse Rate 75 03/16/19 08:00 Respiratory Rate 21 H 03/16/19 08:00 Blood Pressure 102/68 03/16/19 08:00 O2 Sat by Pulse Oximetry (%) 100 03/16/19 06:47 Constitutional: Yes: No Distress Eyes: Yes: Conjunctiva Clear Cardiovascular: Yes: Regular Rate and Rhythm, S1, S2 Respiratory: Yes: Mechanically Ventilated Gastrointestinal: Yes: Normal Bowel Sounds, Soft. No: Tenderness Edema: Yes Labs: CBC, BMP 03/16/19 05:30 03/16/19 05:30 INR, PTT INR 1.44 (0.83-1.09) H 02/22/19 05:40 Assessment/Plan SEPSIS/ SEPTIC SHOCK ESBL BACTEREMIA/ SEPSIS RESP FAILURE FEVER/LEUKOCYTOSIS CONTINUE MEROPENEM VENTILATORY/ HEMODYNAMIC SUPPORT PROGNOSIS POOR
[2019-03-16] MEDS: PANTOPRAZOLE SODIUM 40 MG VIAL IVPUSH SCH (10:07)
[2019-03-16] MEDS: MIDODRINE HCL 5 MG TABLET PO SCH ×2 (10:07→14:00)
[2019-03-16] MEDS: APIXABAN 2.5 MG TABLET PO SCH ×2 (10:07→22:48)
[2019-03-16] MEDS: ESCITALOPRAM OXALATE 10 MG TABLET (FP) PO SCH (10:07)
[2019-03-16] MEDS: MEROPENEM 500 MG in DEXTROSE 5%-WATER 100 ML IVPB SCH (10:07)
[2019-03-16] MEDS: COLLAGENASE CLOSTRIDIUM HIST. 30 GRAMS TUBE TP SCH (10:08)
[2019-03-16] MEDS: MULTIVITAMINS (DAILY MVI) TABLET (FP) PO SCH (10:08)
--- NOTE | 2019-03-16 11:05 | PN ---
Teaching Attending Note Name of Resident: Gualberto Eagle ATTENDING PHYSICIAN STATEMENT I saw and evaluated the patient. I reviewed the resident's note and discussed the case with the resident. I agree with the resident's findings and plan as documented. SUBJECTIVE: Patient seen and examined in the ICU. Remains intubated and sedated. 12 mcq NE and 5 units vasopressin for hemodynamic support. Still with issues contacting [facility]. OBJECTIVE: Intake & Output 03/13/19 03/14/19 03/15/19 03/16/19 23:59 23:59 23:59 23:59 Intake Total 2619 2379.9 580 498.8 Output Total 0 650 0 Balance 2619 1729.9 580 498.8 Weight 164 lb 6.4 oz 177 lb 11.081 oz 172 lb 3.2 oz 166 lb 8 oz Last Vital Signs Temp Pulse Resp BP Pulse Ox 98.1 F 77 20 95/60 100 03/16/19 06:00 03/16/19 10:00 03/16/19 10:00 03/16/19 10:00 03/16/19 06:47 Active Medications Acetaminophen (Ofirmev Injection -) 1,000 mg IVPB Q6H PRN PRN Reason: FEVER Last Admin: 03/12/19 01:54 Dose: 1,000 mg Amino Acids (Prosource No Carb Liquid Pkt) 30 ml PO TID [facility] Last Admin: 03/16/19 05:50 Dose: 30 ml Apixaban (Eliquis -) 2.5 mg PO BID CHANTELL Last Admin: 03/16/19 10:07 Dose: 2.5 mg Atorvastatin Calcium (Lipitor -) 20 mg PO HS [facility] Last Admin: 03/15/19 21:22 Dose: 20 mg Collagenase (Santyl -) 1 applic TP DAILY [facility]; Protocol Last Admin: 03/16/19 10:08 Dose: 1 applic Epoetin Jose 10,000 unit/ (Epoetin Jose 2,000 unit) 12,000 unit IVPUSH ONCE ONE Stop: 03/16/19 10:01 Escitalopram Oxalate (Lexapro -) 10 mg PO DAILY [facility] Last Admin: 03/16/19 10:07 Dose: 10 mg Hydrocortisone Sodium Succinate (Solu-Cortef -) 100 mg IVPB Q8H-IV CHANTELL Last Admin: 03/16/19 10:08 Dose: 100 mg Fentanyl 500 mcg/ Dextrose 100 mls @ 1 mls/hr IVPB TITR CHANTELL Last Admin: 03/16/19 02:07 Dose: Not Given Norepinephrine Bitartrate 8, (000 mcg/ Dextrose) 500 mls @ 18.75 mls/hr IV ASDIR CHANTELL; Protocol Last Admin: 03/16/19 06:25 Dose: Not Given Vasopressin 50 units/ Sodium (Chloride) 100 mls @ 4 mls/hr IVPB ASDIR CHANTELL; Protocol Last Admin: 03/16/19 06:39 Dose: Not Given Meropenem 500 mg/ Dextrose 100 mls @ 200 mls/hr IVPB DAILY CHANTELL Last Admin: 03/16/19 10:07 Dose: 200 mls/hr Sodium Chloride (Normal Saline -) 250 mls @ 3,000 mls/hr IV PRN PRN PRN Reason: Hypotension during Dialysis Stop: 03/16/19 12:46 Insulin Aspart (Novolog Vial Sliding Scale -) 1 vial SQ Q6HPO [facility]; Protocol Last Admin: 03/16/19 05:49 Dose: 2 units Midodrine (Proamatine -) 10 mg PO TID-MID [facility] Last Admin: 03/16/19 10:07 Dose: 10 mg Multivitamins/Minerals/Vitamin C (Tab-A-Vit -) 1 tab PO DAILY [facility] Last Admin: 03/16/19 10:08 Dose: 1 tab Pantoprazole Sodium (Protonix Iv) 40 mg IVPUSH BID [facility] Last Admin: 03/16/19 10:07 Dose: 40 mg Tamsulosin HCl (Flomax -) 0.4 mg PO HS [facility] Last Admin: 03/15/19 21:22 Dose: 0.4 mg Gen: intubated, sedated Heart: RRR Lung: scattered rhonchi Abd: soft, nontender Ext: wrapped, malodorous Laboratory Results - last 24 hr 03/15/19 03/15/19 03/16/19 13:13 17:59 00:35 WBC RBC Hgb Hct MCV MCH MCHC RDW Plt Count MPV Sodium Potassium Chloride Carbon Dioxide Anion Gap BUN Creatinine Est GFR (CKD-EPI)AfAm Est GFR (CKD-EPI)NonAf POC Glucometer 159 130 140 Random Glucose Calcium Phosphorus Magnesium Total Bilirubin AST ALT Alkaline Phosphatase Total Protein Albumin 03/16/19 03/16/19 03/16/19 05:30 05:30 05:32 WBC 17.8 H RBC 3.52 L Hgb 10.3 L Hct 32.5 L MCV 92.3 MCH 29.2 MCHC 31.7 L RDW 18.9 H Plt Count 122 L MPV 12.0 H D Sodium 128 L Potassium 3.8 Chloride 94 L Carbon Dioxide 22 Anion Gap 12 BUN 29.8 H Creatinine 2.4 H Est GFR (CKD-EPI)AfAm 29.69 Est GFR (CKD-EPI)NonAf 25.61 POC Glucometer 180 Random Glucose 173 H Calcium 6.8 L* Phosphorus 4.1 Magnesium 2.1 Total Bilirubin 1.6 H AST 37 ALT 14 Alkaline Phosphatase 396 H Total Protein 5.2 L Albumin 1.2 L ASSESSMENT AND PLAN: Acute Hypoxic Respiratory Failure Pneumonia suspect Aspiration ESBL E coli Bacteremia Septic Shock Bilateral Feet Gangrene Infected Decubitus Ulcers ESRD on HD DM HTN Hyperlipidemia h/o CVA - continue antibiotics per ID - continue midodrine - taper pressors to maintain MAP >65 - monitor H/H - local wound care - HD per renal - aspiration precautions - DVT prophylaxis - continue efforts to discuss medical condition and prognosis with next of kin - given overall poor condition, current medical condition, and overall poor nursing home outcome, recommend palliative/comfort care - continue ICU monitoring Dr Palmer Critical care time spent in reviewing chart, evaluating patient and formulating plan 36 min
[2019-03-16] MEDS ORDERED: EPOETIN ALFA 2,000 UNIT/1 ML VIAL IVPUSH ONE (12:46)
[2019-03-16] MEDS ORDERED: VASOPRESSIN 20 UNITS/ML VIAL IV ONE ×2 (13:17→23:41)
[2019-03-16] MEDS ORDERED: SODIUM CHLORIDE 250 ML IV PRN (15:55)
[2019-03-16] MEDS ORDERED: EPOETIN ALFA 10,000 UNIT, EPOETIN ALFA 2,000 UNIT IVPUSH ONE (16:00)
--- NOTE | 2019-03-16 17:20 | PN ---
Progress Note (short form) - Note Progress Note: No new changes in ICU on pressors. Vital Signs Temperature 98 F 03/16/19 14:00 Pulse Rate 71 03/16/19 15:22 Respiratory Rate 20 03/16/19 15:26 Blood Pressure 96/56 L 03/16/19 15:22 O2 Sat by Pulse Oximetry (%) 100 03/16/19 10:00 GENERAL: The patient is intubated , sedated. HEAD: Normal with no signs of trauma. EYES: extraocular movements intact, sclera anicteric, ENT: intubated and sedated . NECK: Trachea midline, positive for ET-tube LUNGS: intubated , sedated . HEART: RRR , S1, S2 without murmur, rub or gallop. ABDOMEN: Soft, NT, ND, BS positive, no guarding, no rebound, no hepatosplenomegaly, no masses. EXTREMITIES: gangrenous lower extremities SKIN: Warm. CBCD WBC 17.8 K/mm3 (4.0-10.0) H 03/16/19 05:30 RBC 3.52 M/mm3 (4.00-5.60) L 03/16/19 05:30 Hgb 10.3 GM/dL (11.7-16.9) L 03/16/19 05:30 Hct 32.5 % (35.4-49) L 03/16/19 05:30 MCV 92.3 fl (80-96) 03/16/19 05:30 MCHC 31.7 g/dl (32.0-35.9) L 03/16/19 05:30 RDW 18.9 % (11.9-15.9) H 03/16/19 05:30 Plt Count 122 K/MM3 (134-434) L 03/16/19 05:30 MPV 12.0 fl (7.5-11.1) H D 03/16/19 05:30 CMP Sodium 128 mmol/L (136-145) L 03/16/19 05:30 Potassium 3.8 mmol/L (3.5-5.1) 03/16/19 05:30 Chloride 94 mmol/L (98-107) L 03/16/19 05:30 Carbon Dioxide 22 mmol/L (21-32) 03/16/19 05:30 Anion Gap 12 MMOL/L (8-16) 03/16/19 05:30 BUN 29.8 mg/dL (7-18) H 03/16/19 05:30 Creatinine 2.4 mg/dL (0.55-1.3) H 03/16/19 05:30 Random Glucose 173 mg/dL (74-106) H 03/16/19 05:30 Calcium 6.8 mg/dL (8.5-10.1) L* 03/16/19 05:30 Total Bilirubin 1.6 mg/dL (0.2-1) H 03/16/19 05:30 AST 37 U/L (15-37) 03/16/19 05:30 ALT 14 U/L (13-61) 03/16/19 05:30 Alkaline Phosphatase 396 U/L (45-117) H 03/16/19 05:30 Total Protein 5.2 g/dl (6.4-8.2) L 03/16/19 05:30 Albumin 1.2 g/dl (3.4-5.0) L 03/16/19 05:30 CARDIAC ENZYMES Troponin I < 0.02 ng/ml (0.00-0.05) 02/21/19 15:10 Current Medications Generic Name Dose Route Start Last Admin Trade Name Freq PRN Reason Stop Dose Admin Acetaminophen 1,000 mg 03/11/19 04:18 03/12/19 01:54 Ofirmev Injection - IVPB 1,000 mg Q6H PRN Administration FEVER Amino Acids 30 ml 02/21/19 22:00 03/16/19 15:21 Prosource No Carb Liquid Pkt PO 30 ml TID CHANTELL Administration Apixaban 2.5 mg 02/21/19 22:00 03/16/19 10:07 Eliquis - PO 2.5 mg BID CHANTELL Administration Atorvastatin Calcium 20 mg 02/21/19 22:00 03/15/19 21:22 Lipitor - PO 20 mg HS CHANTELL Administration Collagenase 1 applic 02/22/19 10:00 03/16/19 10:08 Santyl - TP 1 applic DAILY CHANTELL Administration Protocol Escitalopram Oxalate 10 mg 02/22/19 10:00 03/16/19 10:07 Lexapro - PO 10 mg DAILY CHANTELL Administration Hydrocortisone Sodium Succinate 100 mg 03/11/19 11:00 03/16/19 10:08 Solu-Cortef - IVPB 100 mg Q8H-IV CHANTELL Administration Fentanyl 500 mcg/ Dextrose 100 mls @ 1 mls/hr 03/11/19 00:45 03/16/19 02:07 IVPB Not Given TITR CHANTELL 5 MCG/HR Norepinephrine Bitartrate 8, 500 mls @ 18.75 mls/hr 03/11/19 05:58 03/16/19 12:03 000 mcg/ Dextrose IV 10 mcg/min ASDIR CHANTELL 37.5 mls/hr Titration Protocol 5 MCG/MIN Vasopressin 50 units/ Sodium 100 mls @ 4 mls/hr 03/11/19 06:30 03/16/19 06:39 Chloride IVPB Not Given ASDIR CHANTELL Protocol 2 UNITS/HR Meropenem 500 mg/ Dextrose 100 mls @ 200 mls/hr 03/11/19 10:00 03/16/19 10:07 IVPB 200 mls/hr DAILY CHANTELL Administration Insulin Aspart 1 vial 03/13/19 12:00 03/16/19 12:18 Novolog Vial Sliding Scale - SQ 2 units Q6HPO CHANTELL Administration Protocol Midodrine 10 mg 03/02/19 14:00 03/16/19 14:00 Proamatine - PO 10 mg TID-MID CHANTELL Administration Multivitamins/Minerals/Vitamin C 1 tab 02/22/19 10:00 03/16/19 10:08 Tab-A-Vit - PO 1 tab DAILY CHANTELL Administration Pantoprazole Sodium 40 mg 03/14/19 22:00 03/16/19 10:07 Protonix Iv IVPUSH 40 mg BID CHANTELL Administration Tamsulosin HCl 0.4 mg 02/21/19 22:00 03/15/19 21:22 Flomax - PO 0.4 mg HS CHANTELL Administration Home Medications Medication Instructions Recorded Albuterol 2.5/Ipratropium 0.5 1 amp NEB Q6H PRN #0 amp 07/12/17 [Duoneb -] Allopurinol [Zyloprim -] 100 mg PO DAILY tablet 07/12/17 Atorvastatin Ca [Lipitor] 20 mg PO HS tablet 07/12/17 Collagenase Clostridium Hist. 1 applic TP DAILY tube 09/06/18 [Santyl -] Albuterol Sulfate [Proair Hfa] 2 puff IH Q6H PRN 10/29/18 Escitalopram Oxalate [Lexapro -] 10 mg PO DAILY 10/29/18 Folic Acid/Vit B Complex and C 1 each PO DAILY 10/29/18 [Dialyvite Tablet] Midodrine HCl 10 mg PO MOWEFR 10/29/18 Sevelamer Carbonate [Renvela -] 1,600 mg PO TID 10/29/18 Tamsulosin HCl [Flomax] 0.4 mg PO HS 10/29/18 Insulin Sliding Scale [Novolog 1 vial SQ TIDAC #1 vial 11/17/18 Vial Sliding Scale -] Apixaban [Eliquis -] 5 mg PO BID #30 tablet MDD 2 11/19/18 Collagenase Clostridium Hist. 1 applic TP DAILY #1 tube 01/17/19 [Santyl -] Amoxicillin/Potassium Clav 1 each PO DAILY #7 tablet 02/06/19 [Augmentin 500-125 Tablet] Megestrol Acetate Oral Susp 400 mg PO DAILY #20 cup 02/06/19 [Megace Liquid -] Protein Supplement [Prosource] 275 gm PO TID #60 powder 02/06/19 Lactobacillus Acidophilus [Bacid -] 1 tab PO DAILY #60 tab 02/19/19 Midodrine HCl [Proamatine -] 5 mg PO SuTuThSa #60 tablet 02/19/19 traMADol HCL [Ultram -] 50 mg PO Q6H PRN #60 tablet MDD 4 02/19/19 Microbiology 03/11/19 05:30 Blood - Peripheral Venous Blood Culture - Final NO GROWTH AFTER 5 DAYS INCUBATION 03/11/19 10:15 Sputum - Endotrachea Suction/Ventilator Gram Stain - Final 03/11/19 10:15 Sputum - Endotrachea Suction/Ventilator Sputum Culture - Final Mr S Aureus Escherichia Coli [employer] Tech Acinetobacter Baumannii/Haemol Pseudomonas Aeruginosa 03/11/19 06:45 Blood - Peripheral Venous Blood Culture - Final Escherichia Coli [employer] 02/23/19 11:50 Blood - Peripheral Venous Blood Culture - Final NO GROWTH AFTER 5 DAYS INCUBATION 02/23/19 11:50 Blood - Peripheral Venous Blood Culture - Final NO GROWTH AFTER 5 DAYS INCUBATION 02/21/19 13:16 Blood - Peripheral Venous Blood Culture - Final Proteus Mirabilis Prevotella Melaninogenica 02/21/19 16:30 Foot - Left Heel Gram Stain - Final 02/21/19 16:30 Foot - Left Heel Wound Culture - Final Escherichia Coli [employer] Tech Morganella Morganii 02/21/19 15:40 Blood - Peripheral Venous Blood Culture - Final Proteus Mirabilis 02/21/19 14:50 Urine - Urine - Catheterized Urine Culture - Final NO GROWTH OBTAINED ASSESSMENT AND PLAN: Patient is a 73 y/o man with h/o dementia, CVA, DM, COPD, ESRD, gout, HTN, HLP, recent admission 01/31-02/19 during which he was treated for sepsis due to infected b/l feet ulcers/gangrene. He was sent form NH due to poor po intake, and non healing wounds # Acute hypoxic respiratory failure s/p intubation in ICU vent management and sedation as per ICU team # Septic shock due GNR bacteremia ecoli esbl bacteremia due to gangrenous infection of LEs cont meropenem ,discussed with ID, on 2 pressors continue, taper as needed. # Infected sacral decub and scrotal ulcer continue current care # ESRD on HD per schedule , nephro on the case # DM SSI with coverage # anemia # Acute hyponatremia 130--128 TODAY; monitor , on NS continue # Hx of BPH: on Flomax GI Px: PPI Poor prognosis. Appreciate Palliative care and Ethics committee help will wait for further recommendations. discussed with Palliatic care nurse; meeting will be arranged regarding goal of care this coming Monday. Visit type - Emergency Visit Emergency Visit: Yes ED Registration Date: 02/21/19 Care time: The patient presented to the Emergency Department on the above date and was hospitalized for further evaluation of their emergent condition. - New Patient This patient is new to me today: No - Critical Care Critical Care patient: Yes Total Critical Care Time (in minutes): 32 Critical Care Statement: The care of this patient involved high complexity decision making to prevent further life threatening deterioration of the patient 's condition and/or to evaluate & treat vital organ system(s) failure or risk of failure. - Discharge Referral Referred to [facility] Med [facility].C.: No
[2019-03-16] MEDS: ATORVASTATIN CA 20 MG TABLET (FP) PO SCH (22:48)
[2019-03-16] MEDS: TAMSULOSIN HCL 0.4 MG CAP PO SCH (22:51)
[2019-03-17] MEDS: INSULIN SLIDING SCALE (NOVOLOG) 1 VIAL SQ SCH ×5 (00:15→17:46)
[2019-03-17] MEDS: PANTOPRAZOLE SODIUM 40 MG VIAL IVPUSH SCH ×3 (00:17→21:32)
[2019-03-17] MEDS: NOREPINEPHRINE BITARTRATE 8,000 MCG in DEXTROSE 5%-WATER - 492 ML IV SCH ×3 (00:18→17:29)
[2019-03-17] MEDS: ATORVASTATIN CA 20 MG TABLET (FP) PO SCH ×2 (00:20→21:32)
[2019-03-17] MEDS: HYDROCORTISONE SOD SUCCINATE 100 MG/2 ML VIAL IVPB SCH ×2 (06:15→09:44)
[2019-03-17] MEDS: AMINO ACIDS/PROTEIN HYDROLYS 30 ML LIQUID.PKT PO SCH ×3 (06:21→21:28)
--- NOTE | 2019-03-17 06:26 | PN ---
Physical Exam: SUBJECTIVE: Patient seen and examined OBJECTIVE: Vital Signs Period Temp Pulse Resp BP Sys/Zamorano Pulse Ox Last 24 Hr 98 F-98.3 F 70-100 16-24 88-125/42-75 98-100 GENERAL: The patient is awake, alert, and fully oriented, in no acute distress. HEAD: Normal with no signs of trauma. EYES: PERRL, extraocular movements intact, sclera anicteric, conjunctiva clear. No ptosis. ENT: Ears normal, nares patent, oropharynx clear without exudates, moist mucous membranes. NECK: Trachea midline, full range of motion, supple. LUNGS: Breath sounds equal, clear to auscultation bilaterally, no wheezes, no crackles, no accessory muscle use. HEART: Regular rate and rhythm, S1, S2 without murmur, rub or gallop. ABDOMEN: Soft, nontender, nondistended, normoactive bowel sounds, no guarding, no rebound, no hepatosplenomegaly, no masses. EXTREMITIES: 2+ pulses, warm, well-perfused, no edema. NEUROLOGICAL: Cranial nerves II through XII grossly intact. Normal speech, gait not observed. PSYCH: Normal mood, normal affect. SKIN: Warm, dry, normal turgor, no rashes or lesions noted Laboratory Results - last 24 hr 03/16/19 03/16/19 03/16/19 05:30 05:30 12:09 WBC 17.8 H RBC 3.52 L Hgb 10.3 L Hct 32.5 L MCV 92.3 MCH 29.2 MCHC 31.7 L RDW 18.9 H Plt Count 122 L MPV 12.0 H D Sodium 128 L Potassium 3.8 Chloride 94 L Carbon Dioxide 22 Anion Gap 12 BUN 29.8 H Creatinine 2.4 H Est GFR (CKD-EPI)AfAm 29.69 Est GFR (CKD-EPI)NonAf 25.61 POC Glucometer 169 Random Glucose 173 H Calcium 6.8 L* Phosphorus 4.1 Magnesium 2.1 Total Bilirubin 1.6 H AST 37 ALT 14 Alkaline Phosphatase 396 H Total Protein 5.2 L Albumin 1.2 L 03/16/19 03/17/19 03/17/19 18:24 00:04 06:05 WBC RBC Hgb Hct MCV MCH MCHC RDW Plt Count MPV Sodium Potassium Chloride Carbon Dioxide Anion Gap BUN Creatinine Est GFR (CKD-EPI)AfAm Est GFR (CKD-EPI)NonAf POC Glucometer 192 190 196 Random Glucose Calcium Phosphorus Magnesium Total Bilirubin AST ALT Alkaline Phosphatase Total Protein Albumin Active Medications Generic Name Dose Route Start Last Admin Trade Name Jaq PRN Reason Stop Dose Admin Acetaminophen 1,000 mg 03/11/19 04:18 03/12/19 01:54 Ofirmev Injection - IVPB 1,000 mg Q6H PRN Administration FEVER Amino Acids 30 ml 02/21/19 22:00 03/17/19 06:21 Prosource No Carb Liquid Pkt PO Not Given TID CHANTELL Apixaban 2.5 mg 02/21/19 22:00 03/16/19 22:48 Eliquis - PO 2.5 mg BID CHANTELL Administration Atorvastatin Calcium 20 mg 02/21/19 22:00 03/17/19 00:20 Lipitor - PO 20 mg HS CHANTELL Administration Collagenase 1 applic 02/22/19 10:00 03/16/19 10:08 Santyl - TP 1 applic DAILY CHANTELL Administration Protocol Escitalopram Oxalate 10 mg 02/22/19 10:00 03/16/19 10:07 Lexapro - PO 10 mg DAILY CHANTELL Administration Hydrocortisone Sodium Succinate 100 mg 03/11/19 11:00 03/17/19 06:15 Solu-Cortef - IVPB 100 mg Q8H-IV CHANTELL Administration Fentanyl 500 mcg/ Dextrose 100 mls @ 1 mls/hr 03/11/19 00:45 03/16/19 02:07 IVPB Not Given TITR CHANTELL 5 MCG/HR Norepinephrine Bitartrate 8, 500 mls @ 18.75 mls/hr 03/11/19 05:58 03/17/19 00:18 000 mcg/ Dextrose IV 7 mcg/min ASDIR CHANTELL 26.25 mls/hr Administration Protocol 5 MCG/MIN Vasopressin 50 units/ Sodium 100 mls @ 4 mls/hr 03/11/19 06:30 03/16/19 06:39 Chloride IVPB Not Given ASDIR CHANTELL Protocol 2 UNITS/HR Meropenem 500 mg/ Dextrose 100 mls @ 200 mls/hr 03/11/19 10:00 03/16/19 10:07 IVPB 200 mls/hr DAILY CHANTELL Administration Insulin Aspart 1 vial 03/13/19 12:00 03/17/19 06:15 Novolog Vial Sliding Scale - SQ 2 units Q6HPO CHANTELL Administration Protocol Midodrine 10 mg 03/02/19 14:00 03/16/19 14:00 Proamatine - PO 10 mg TID-MID CHANTELL Administration Multivitamins/Minerals/Vitamin C 1 tab 02/22/19 10:00 03/16/19 10:08 Tab-A-Vit - PO 1 tab DAILY CHANTELL Administration Pantoprazole Sodium 40 mg 03/14/19 22:00 03/17/19 00:17 Protonix Iv IVPUSH 40 mg BID CHANTELL Administration Tamsulosin HCl 0.4 mg 02/21/19 22:00 03/16/19 22:51 Flomax - PO 0.4 mg HS CHANTELL Administration ASSESSMENT/PLAN: No overnight events Pt continues to require pressers for BP
[2019-03-17 06:29] LABS: BASO % 0.3 % (0-2.0); HEMOGLOBIN 9.2 GM/dL (11.7-16.9); LYMPH % 7.9 % (8-40); MCH 30.3 pg (25.7-33.7); MCHC 32.7 g/dl (32.0-35.9); MEAN CELL VOLUME 92.5 fl (80-96); MEAN PLT VOLUME 11.6 fl (7.5-11.1); MONO % 0.4 % (3.8-10.2); NEUT % 91.4 % (42.8-82.8); PLATELET COUNT 123 K/MM3 (134-434); RBC 3.02 M/mm3 (4.00-5.60); RDW 19.3 % (11.9-15.9); WHITE BLOOD COUNT 10.7 K/mm3 (4.0-10.0)
[2019-03-17 06:56] LABS: ALBUMIN 1.1 g/dl (3.4-5.0); BILIRUBIN,TOTAL 2.2 mg/dL (0.2-1); CREATININE 1.8 mg/dL (0.55-1.3); PHOSPHOROUS 2.5 mg/dL (2.5-4.9); TOT PROT 4.5 g/dl (6.4-8.2)
[2019-03-17 07:08] LABS: POTASSIUM 2.9 mmol/L (3.5-5.1)
[2019-03-17 07:09] LABS: CALCIUM 6.8 mg/dL (8.5-10.1)
[2019-03-17] MEDS ORDERED: POTASSIUM CHLORIDE 20 MEQ PREMIX IVPB 100 ML IVPB ONE (07:30)
--- NOTE | 2019-03-17 07:33 | PN ---
Physical Exam: SUBJECTIVE: Patient seen and examined in ICU. intubated sedated on pressors x2 w/ stress steroids in septic shock. GOC/ethics meeting ongoing. tube feeds held for high residuals OBJECTIVE: Vital Signs Period Temp Pulse Resp BP Sys/Zamorano Pulse Ox Last 24 Hr 98 F-98.3 F 70-100 16-24 88-125/42-75 98-100 GENERAL: intubated sedated. thin appearing, decreased muscle mass and fat EARS, NOSE, THROAT: dry mucous membranes. LUNGS: CTAB HEART: irregularly irregular s1s2 normal ABDOMEN: Soft, NTND normoactive bowel sounds, ulcer present on sacrum unstagable with foul discharge, scrotum has ulcer no discharge MUSCULOSKELETAL: Normal range of motion at all joints. No bony deformities or tenderness. No CVA tenderness. UPPER EXTREMITIES: 2+ pulses, warm, well-perfused. +edema LOWER EXTREMITIES: b/l wet gangrene with fouls smelling discharge SKIN: Warm, dry, Neuo: intubated sedated. no apparent gag reflex today, sluggish pupils, non responsive to pain or voice Laboratory Results - last 24 hr 03/16/19 03/16/19 03/17/19 12:09 18:24 00:04 WBC RBC Hgb Hct MCV MCH MCHC RDW Plt Count MPV Absolute Neuts (auto) Neutrophils % Lymphocytes % Monocytes % Eosinophils % Basophils % Nucleated RBC % Sodium Potassium Chloride Carbon Dioxide Anion Gap BUN Creatinine Est GFR (CKD-EPI)AfAm Est GFR (CKD-EPI)NonAf POC Glucometer 169 192 190 Random Glucose Calcium Phosphorus Magnesium Total Bilirubin AST ALT Alkaline Phosphatase Total Protein Albumin 03/17/19 03/17/19 03/17/19 05:57 05:57 06:05 WBC 10.7 H RBC 3.02 L Hgb 9.2 L Hct 28.0 L MCV 92.5 MCH 30.3 MCHC 32.7 RDW 19.3 H Plt Count 123 L MPV 11.6 H Absolute Neuts (auto) 9.8 H Neutrophils % 91.4 H Lymphocytes % 7.9 L D Monocytes % 0.4 L D Eosinophils % 0.0 D Basophils % 0.3 Nucleated RBC % 0 Sodium 138 Potassium 2.9 L* Chloride 100 Carbon Dioxide 26 Anion Gap 12 BUN 24.0 H Creatinine 1.8 H Est GFR (CKD-EPI)AfAm 42.03 Est GFR (CKD-EPI)NonAf 36.27 POC Glucometer 196 Random Glucose 201 H Calcium 6.8 L* Phosphorus 2.5 Magnesium 2.0 Total Bilirubin 2.2 H AST 42 H ALT 14 Alkaline Phosphatase 384 H Total Protein 4.5 L Albumin 1.1 L Active Medications Generic Name Dose Route Start Last Admin Trade Name Freq PRN Reason Stop Dose Admin Acetaminophen 1,000 mg 03/11/19 04:18 03/12/19 01:54 Ofirmev Injection - IVPB 1,000 mg Q6H PRN Administration FEVER Amino Acids 30 ml 02/21/19 22:00 03/17/19 06:21 Prosource No Carb Liquid Pkt PO Not Given TID CHANTELL Apixaban 2.5 mg 02/21/19 22:00 03/16/19 22:48 Eliquis - PO 2.5 mg BID CHANTELL Administration Atorvastatin Calcium 20 mg 02/21/19 22:00 03/17/19 00:20 Lipitor - PO 20 mg HS CHANTELL Administration Collagenase 1 applic 02/22/19 10:00 03/16/19 10:08 Santyl - TP 1 applic DAILY CHANTELL Administration Protocol Escitalopram Oxalate 10 mg 02/22/19 10:00 03/16/19 10:07 Lexapro - PO 10 mg DAILY CHANTELL Administration Hydrocortisone Sodium Succinate 100 mg 03/11/19 11:00 03/17/19 06:15 Solu-Cortef - IVPB 100 mg Q8H-IV CHANTELL Administration Fentanyl 500 mcg/ Dextrose 100 mls @ 1 mls/hr 03/11/19 00:45 03/16/19 02:07 IVPB Not Given TITR CHANTELL 5 MCG/HR Norepinephrine Bitartrate 8, 500 mls @ 18.75 mls/hr 03/11/19 05:58 03/17/19 00:18 000 mcg/ Dextrose IV 7 mcg/min ASDIR CHANTELL 26.25 mls/hr Administration Protocol 5 MCG/MIN Vasopressin 50 units/ Sodium 100 mls @ 4 mls/hr 03/11/19 06:30 03/16/19 06:39 Chloride IVPB Not Given ASDIR CHANTELL Protocol 2 UNITS/HR Meropenem 500 mg/ Dextrose 100 mls @ 200 mls/hr 03/11/19 10:00 03/16/19 10:07 IVPB 200 mls/hr DAILY CHANTELL Administration Potassium Chloride 10 meq in 100 mls @ 100 mls/hr 03/17/19 07:30 Potassium Chloride 10 Meq Premix Ivpb - IVPB 03/17/19 09:29 Q60M CHANTELL Insulin Aspart 1 vial 03/13/19 12:00 03/17/19 06:15 Novolog Vial Sliding Scale - SQ 2 units Q6HPO CHANTELL Administration Protocol Midodrine 10 mg 03/02/19 14:00 03/16/19 14:00 Proamatine - PO 10 mg TID-MID CHANTELL Administration Multivitamins/Minerals/Vitamin C 1 tab 02/22/19 10:00 03/16/19 10:08 Tab-A-Vit - PO 1 tab DAILY CHANTELL Administration Pantoprazole Sodium 40 mg 03/14/19 22:00 03/17/19 00:17 Protonix Iv IVPUSH 40 mg BID CHANTELL Administration Tamsulosin HCl 0.4 mg 02/21/19 22:00 03/16/19 22:51 Flomax - PO 0.4 mg HS CHANTELL Administration ASSESSMENT/PLAN: 73 yo M PMH dementia, CVA, DM, COPD, ESRD, gout, HTN, HLP, recent admission 01/31- 02/19 during which he was treated for sepsis due to infected b/l feet ulcers/ gangrene. He was sent form NH due to poor po intake, and worsening of ulcers. Now in septic shock 2/2 DM gangrenous B/L feet infx, Infected sacral decub and scrotal ulcer, and GN bacteremia , requiring ICU and pressors #septic shock 2/2 DM gangrenous B/L feet infx, Infected sacral decub and scrotal ulcer, and GN bacteremia (proteus, prevotella) - requiring ICU and pressors. Now w/ hypoxic respiratory failure possibly 2/2 developing aspiration PNA (aspirated over the weekend) requiring intubation/sedation. CXR 03/11 shows questionable infiltrate L base. +Leukocytosis. afebrile now for >24hr -old cx with E coli, ESBL, MRSA, and VRE. -contact isolation for MDRO -s/p Vanc and Zosyn in the ED, Gentamicin x1, Meropenem x2 in ICU -Bcx 02/21/19 growing GN cher - proteus and prevotella -ucx neg -wound cx E coli, morganella -Bcx 02/23/19 neg -03/11/19 sputum cx MRSA, pseudomonas A,ecoli esbl, acinetobacter ; bcx ecoli esbl bacteremia. -MDRO: strict contact isolation -ID consulted, Rangel -palliative care consulted -s/p CTX 2g/flagyl, c/w Meropenem day #23 total abx, ID recs appreciated. -s/p vanc and gentamicin x1 03/13/19 per ID -Aspiration precautions. -c/w Levophed, vasopressin, stress steroids. Titrate pressors to keep MAP>65 -fentanyl 25mcg for comfort and sedation -vascular surgery consulted, Dr harry, for wound care. amputation indicated, but family not amenable. cont GOC #Seizure-like myoclonus 03/12/19 - noted overnight. resolved w/ ativan 1mg and loaded w/ keppra. see Dr Overton note for further details c/w keppra 250 bid #ESRD on HD (MWF) -nephro consulted (Dr. Henriquez) -HD as per nephvito marino held by nephro for low phos. #Acute on chronic anemia likely 2/2 ESRD and sepsis -monitor H/H -H/H 6.9...9.6 s/p 2u prbc, transfuse prn to maintain hgb >7 #Severe protein calorie malnutrition -albumin 1.1, prealbumin 3.5 -thin appearing, decreased muscle mass and fat -decreased overall PO intake -Magic cup, Ensure pudding for increased density of nutritional intake. Now on NGT while intubated #COPD -keep SpO2>90% -Duonebs q6h PRN #Dm ISS BGM ACHS #H/o hypotension : c/w home midodrine monitor vitals # h/o afib c/w elequis 2.5 bid #FEN -Not on any standing fluids -replete prn -NGT on tube feeds, tube feeds held for high residuals, resume when appropriate #Prophylaxis -Eliquis 2.5mg BID -Protonix IV while on AC and pressors -bacid #Disposition -full code -GOC/ethics consult placed, as we have attempted multiple times to contact daughter who has not been responsive and in the past has not been amenable to to allow for source control/amputation and standard of care. given patients inability to make decisions for himself and daughter unwillingness pt will likely cont to suffer w/o improvement and has spoor prognosis. multiple times various members of primary team and ICU team have tried contacting daughter for GOC/ethics meeting. Resident Dr Milton was able to make contact w/ daughter but no meaningful discussion was able to take place, please see Dr Milton note for further detail. brother has been contacted and has spoken w/ palliative. daughter will not be coming, This may constitute pt abandonment. palliative trying to contact pt other children/NOK, letters have been sent out -given overall poor prognosis, conservative measures and comfort care may be appropriate -ICU monitoring Visit type - Emergency Visit Emergency Visit: Yes ED Registration Date: 02/21/19 Care time: The patient presented to the Emergency Department on the above date and was hospitalized for further evaluation of their emergent condition. - New Patient This patient is new to me today: Yes Date on this admission: 03/17/19 - Critical Care Critical Care patient: Yes Total Critical Care Time (in minutes): 39 Critical Care Statement: The care of this patient involved high complexity decision making to prevent further life threatening deterioration of the patient 's condition and/or to evaluate & treat vital organ system(s) failure or risk of failure.
[2019-03-17] MEDS ORDERED: fentaNYL CITRATE 250 MCG/5 ML VIAL ONE (08:03)
--- NOTE | 2019-03-17 08:29 | PN ---
Progress Note (short form) - Note Progress Note: Renal follow up for ESRD on HD Coverage for Dr. Henriquez Pt seen and examined in the ICU remains orally intubated FiO2 is 40% on pressers s/p dialysis yesterday no overnight events feed held due to high residual Vital Signs Temperature 98.2 F 03/17/19 06:00 Pulse Rate 79 03/17/19 06:06 Respiratory Rate 18 03/17/19 06:06 Blood Pressure 111/62 03/17/19 06:00 O2 Sat by Pulse Oximetry (%) 98 03/17/19 06:06 Intake & Output 03/14/19 03/15/19 03/16/19 03/17/19 23:59 23:59 23:59 23:59 Intake Total 2379.9 580 1449.8 Output Total 650 0 0 0 Balance 1729.9 580 1449.8 0 Weight 80.6 kg 78.109 kg 75.523 kg 73.527 kg NAD on vent sedated RRR Dec BS trace LE edema CBC, BMP 03/17/19 05:57 03/17/19 05:57 Current Medications Acetaminophen (Ofirmev Injection -) 1,000 mg IVPB Q6H PRN PRN Reason: FEVER Last Admin: 03/12/19 01:54 Dose: 1,000 mg Amino Acids (Prosource No Carb Liquid Pkt) 30 ml PO TID CHANTELL Last Admin: 03/17/19 06:21 Dose: Not Given Apixaban (Eliquis -) 2.5 mg PO BID CHANTELL Last Admin: 03/16/19 22:48 Dose: 2.5 mg Atorvastatin Calcium (Lipitor -) 20 mg PO HS CHANTELL Last Admin: 03/17/19 00:20 Dose: 20 mg Collagenase (Santyl -) 1 applic TP DAILY CHANTELL; Protocol Last Admin: 03/16/19 10:08 Dose: 1 applic Escitalopram Oxalate (Lexapro -) 10 mg PO DAILY CHANTELL Last Admin: 03/16/19 10:07 Dose: 10 mg Hydrocortisone Sodium Succinate (Solu-Cortef -) 100 mg IVPB Q8H-IV CHANTELL Last Admin: 03/17/19 06:15 Dose: 100 mg Fentanyl 500 mcg/ Dextrose 100 mls @ 1 mls/hr IVPB TITR CHANTELL Last Admin: 03/16/19 02:07 Dose: Not Given Norepinephrine Bitartrate 8, (000 mcg/ Dextrose) 500 mls @ 18.75 mls/hr IV ASDIR CHANTELL; Protocol Last Admin: 03/17/19 00:18 Dose: 7 mcg/min, 26.25 mls/hr Vasopressin 50 units/ Sodium (Chloride) 100 mls @ 4 mls/hr IVPB ASDIR CHANTELL; Protocol Last Admin: 03/16/19 06:39 Dose: Not Given Meropenem 500 mg/ Dextrose 100 mls @ 200 mls/hr IVPB DAILY CHANTELL Last Admin: 03/16/19 10:07 Dose: 200 mls/hr Potassium Chloride (Potassium Chloride 10 Meq Premix Ivpb -) 10 meq in 100 mls @ 100 mls/hr IVPB Q60M CHANTELL Stop: 03/17/19 09:29 Insulin Aspart (Novolog Vial Sliding Scale -) 1 vial SQ Q6HPO [facility]; Protocol Last Admin: 03/17/19 06:15 Dose: 2 units Midodrine (Proamatine -) 10 mg PO TID-MID [facility] Last Admin: 03/16/19 14:00 Dose: 10 mg Multivitamins/Minerals/Vitamin C (Tab-A-Vit -) 1 tab PO DAILY [facility] Last Admin: 03/16/19 10:08 Dose: 1 tab Pantoprazole Sodium (Protonix Iv) 40 mg IVPUSH BID [facility] Last Admin: 03/17/19 00:17 Dose: 40 mg Tamsulosin HCl (Flomax -) 0.4 mg PO HS CHANTELL Last Admin: 03/16/19 22:51 Dose: 0.4 mg Impression: 1. ESRD on HD 2. gangrene of LE 3. DM 4. hyperlipidemia 5. HTN 6. gout 7. proteinuria 8. hypotension 9. sepsis on 2 pressers 10. resp failure on vent via ET Tube 11. GI bleed 12. Anemia Plan s/p Hd yesterday, no acute need for [employer] today continue ICU monitoring and management keep MAP > 65 using vaospresser vent support as per ICU continue antibiotics as per ID Dose all meds for intermittent HD Trend H/H, continue epogen with HD. NO need for transfusion at this time supplement KCL via IV restart feeds when possible Caden Grimm DO
[2019-03-17] MEDS: KCL 10 MEQ IVPB 10 MEQ/100 ML INFUS.BAG IVPB SCH ×2 (08:33→09:42)
[2019-03-17] MEDS: FENTANYL INJECTION 500 MCG in DEXTROSE 5%-WATER - 90 ML IVPB SCH (08:34)
[2019-03-17] MEDS: VASOPRESSIN 50 UNITS in SODIUM CHLORIDE 97.5 ML IVPB SCH ×2 (08:35→15:25)
[2019-03-17] MEDS ORDERED: PT OWN MED DRAWER 7, Y5N ONE (08:41)
[2019-03-17 08:53] LABS: ANISOCYTOSIS 2+; MACROCYTOSIS 1+; PLATELET ESTIMATE DECREASED; TARGET CELLS 1+
[2019-03-17] MEDS: MEROPENEM 500 MG in DEXTROSE 5%-WATER 100 ML IVPB SCH (09:42)
[2019-03-17] MEDS: MULTIVITAMINS (DAILY MVI) TABLET (FP) PO SCH (09:43)
[2019-03-17] MEDS: MIDODRINE HCL 5 MG TABLET PO SCH ×2 (09:43→14:28)
[2019-03-17] MEDS: COLLAGENASE CLOSTRIDIUM HIST. 30 GRAMS TUBE TP SCH (09:45)
[2019-03-17] MEDS: APIXABAN 2.5 MG TABLET PO SCH ×2 (09:45→21:27)
[2019-03-17] MEDS: ESCITALOPRAM OXALATE 10 MG TABLET (FP) PO SCH (09:45)
--- NOTE | 2019-03-17 10:05 | PN ---
Teaching Attending Note Name of Resident: Zacarias Mcmanus ATTENDING PHYSICIAN STATEMENT I saw and evaluated the patient. I reviewed the resident's note and discussed the case with the resident. I agree with the resident's findings and plan as documented. SUBJECTIVE: Patient seen and examined in the ICU. Remains intubated and sedated. 8mcq NE and 5 units vasopressin for hemodynamic support. Still with issues contacting NOK. OBJECTIVE: Intake & Output 03/14/19 03/15/19 03/16/19 03/17/19 23:59 23:59 23:59 23:59 Intake Total 2379.9 580 1449.8 Output Total 650 0 0 0 Balance 1729.9 580 1449.8 0 Weight 177 lb 11.081 oz 172 lb 3.2 oz 166 lb 8 oz 162 lb 1.6 oz Last Vital Signs Temp Pulse Resp BP Pulse Ox 98.2 F 88 27 H 113/49 L 98 03/17/19 06:00 03/17/19 08:00 03/17/19 09:30 03/17/19 08:00 03/17/19 09:18 Active Medications Acetaminophen (Ofirmev Injection -) 1,000 mg IVPB Q6H PRN PRN Reason: FEVER Last Admin: 03/12/19 01:54 Dose: 1,000 mg Amino Acids (Prosource No Carb Liquid Pkt) 30 ml PO TID [facility] Last Admin: 03/17/19 06:21 Dose: Not Given Apixaban (Eliquis -) 2.5 mg PO BID [facility] Last Admin: 03/17/19 09:45 Dose: 2.5 mg Atorvastatin Calcium (Lipitor -) 20 mg PO HS [facility] Last Admin: 03/17/19 00:20 Dose: 20 mg Collagenase (Santyl -) 1 applic TP DAILY [facility]; Protocol Last Admin: 03/17/19 09:45 Dose: 1 applic Escitalopram Oxalate (Lexapro -) 10 mg PO DAILY [facility] Last Admin: 03/17/19 09:45 Dose: 10 mg Hydrocortisone Sodium Succinate (Solu-Cortef -) 100 mg IVPB Q8H-IV CHANTELL Last Admin: 03/17/19 09:44 Dose: 100 mg Fentanyl 500 mcg/ Dextrose 100 mls @ 1 mls/hr IVPB TITR CHANTELL Last Admin: 03/17/19 08:34 Dose: 25 mcg/hr, 5 mls/hr Norepinephrine Bitartrate 8, (000 mcg/ Dextrose) 500 mls @ 18.75 mls/hr IV ASDIR CHANTELL; Protocol Last Admin: 03/17/19 08:33 Dose: Not Given Vasopressin 50 units/ Sodium (Chloride) 100 mls @ 4 mls/hr IVPB ASDIR CHANTELL; Protocol Last Admin: 03/17/19 08:35 Dose: Not Given Meropenem 500 mg/ Dextrose 100 mls @ 200 mls/hr IVPB DAILY CHANTELL Last Admin: 03/17/19 09:42 Dose: 200 mls/hr Insulin Aspart (Novolog Vial Sliding Scale -) 1 vial SQ Q6HPO [facility]TE[facility]; Protocol Last Admin: 03/17/19 06:15 Dose: 2 units Midodrine (Proamatine -) 10 mg PO TID-MID CHANTELL Last Admin: 03/17/19 09:43 Dose: 10 mg Multivitamins/Minerals/Vitamin C (Tab-A-Vit -) 1 tab PO DAILY CHANTELL Last Admin: 03/17/19 09:43 Dose: 1 tab Pantoprazole Sodium (Protonix Iv) 40 mg IVPUSH BID CHANTELL Last Admin: 03/17/19 09:42 Dose: 40 mg Tamsulosin HCl (Flomax -) 0.4 mg PO HS CHANTELL Last Admin: 03/16/19 22:51 Dose: 0.4 mg Gen: intubated, sedated Heart: RRR Lung: scattered rhonchi Abd: soft, nontender Ext: wrapped, malodorous Laboratory Results - last 24 hr 03/16/19 03/16/19 03/17/19 12:09 18:24 00:04 WBC RBC Hgb Hct MCV MCH MCHC RDW Plt Count MPV Absolute Neuts (auto) Neutrophils % Neutrophils % (Manual) Band Neutrophils % Lymphocytes % Lymphocytes % (Manual) Monocytes % Monocytes % (Manual) Eosinophils % Eosinophils % (Manual) Basophils % Basophils % (Manual) Myelocytes % (Man) Promyelocytes % (Man) Blast Cells % (Manual) Nucleated RBC % Metamyelocytes Hypochromia Platelet Estimate Platelet Comment Polychromasia Poikilocytosis Anisocytosis Microcytosis Macrocytosis Target Cells Sodium Potassium Chloride Carbon Dioxide Anion Gap BUN Creatinine Est GFR (CKD-EPI)AfAm Est GFR (CKD-EPI)NonAf POC Glucometer 169 192 190 Random Glucose Calcium Phosphorus Magnesium Total Bilirubin AST ALT Alkaline Phosphatase Total Protein Albumin 03/17/19 03/17/19 03/17/19 05:57 05:57 06:05 WBC 10.7 H RBC 3.02 L Hgb 9.2 L Hct 28.0 L MCV 92.5 MCH 30.3 MCHC 32.7 RDW 19.3 H Plt Count 123 L MPV 11.6 H Absolute Neuts (auto) 9.8 H Neutrophils % 91.4 H Neutrophils % (Manual) 85.0 H Band Neutrophils % 0.0 Lymphocytes % 7.9 L D Lymphocytes % (Manual) 13.0 Monocytes % 0.4 L D Monocytes % (Manual) 1 L D Eosinophils % 0.0 D Eosinophils % (Manual) 0.0 Basophils % 0.3 Basophils % (Manual) 0.0 Myelocytes % (Man) 0 Promyelocytes % (Man) 0 Blast Cells % (Manual) 0 Nucleated RBC % 1 H Metamyelocytes 1 D Hypochromia 0 Platelet Estimate Decreased Platelet Comment Present Polychromasia 0 Poikilocytosis 1+ Anisocytosis 2+ Microcytosis 1+ Macrocytosis 1+ Target Cells 1+ Sodium 138 Potassium 2.9 L* Chloride 100 Carbon Dioxide 26 Anion Gap 12 BUN 24.0 H Creatinine 1.8 H Est GFR (CKD-EPI)AfAm 42.03 Est GFR (CKD-EPI)NonAf 36.27 POC Glucometer 196 Random Glucose 201 H Calcium 6.8 L* Phosphorus 2.5 Magnesium 2.0 Total Bilirubin 2.2 H AST 42 H ALT 14 Alkaline Phosphatase 384 H Total Protein 4.5 L Albumin 1.1 L ASSESSMENT AND PLAN: Acute Hypoxic Respiratory Failure Pneumonia suspect Aspiration ESBL E coli Bacteremia Septic Shock Bilateral Feet Gangrene Infected Decubitus Ulcers ESRD on HD DM HTN Hyperlipidemia h/o CVA - continue antibiotics per ID - continue midodrine - taper pressors to maintain MAP >65 - monitor H/H - local wound care - HD per renal - aspiration precautions - DVT prophylaxis - continue efforts to discuss medical condition and prognosis with next of kin - given overall poor condition, current medical condition, and overall poor alf outcome, recommend palliative/comfort care - continue ICU monitoring Dr Palmer Critical care time spent in reviewing chart, evaluating patient and formulating plan 36 min
--- NOTE | 2019-03-17 13:38 | PN ---
Physical Exam: SUBJECTIVE: Patient seen and examined at beside. Intubated sedated OBJECTIVE: Vital Signs Period Temp Pulse Resp BP Sys/Zamorano Pulse Ox Last 24 Hr 98 F-98.3 F 4-101 16-27 90-125/42-75 98-100 Gen: intubated sedated, unresponsive HEENT: NCAT Neck: L subclav & R IJ HD lines Cardio: rrr, s1s2, no mrg Pulm: coarse bs throughout on vent Abd: nondistended, soft Ext: wet gangrene Laboratory Results - last 24 hr 03/16/19 03/17/19 03/17/19 18:24 00:04 05:57 WBC 10.7 H RBC 3.02 L Hgb 9.2 L Hct 28.0 L MCV 92.5 MCH 30.3 MCHC 32.7 RDW 19.3 H Plt Count 123 L MPV 11.6 H Absolute Neuts (auto) 9.8 H Neutrophils % 91.4 H Neutrophils % (Manual) 85.0 H Band Neutrophils % 0.0 Lymphocytes % 7.9 L D Lymphocytes % (Manual) 13.0 Monocytes % 0.4 L D Monocytes % (Manual) 1 L D Eosinophils % 0.0 D Eosinophils % (Manual) 0.0 Basophils % 0.3 Basophils % (Manual) 0.0 Myelocytes % (Man) 0 Promyelocytes % (Man) 0 Blast Cells % (Manual) 0 Nucleated RBC % 1 H Metamyelocytes 1 D Hypochromia 0 Platelet Estimate Decreased Platelet Comment Present Polychromasia 0 Poikilocytosis 1+ Anisocytosis 2+ Microcytosis 1+ Macrocytosis 1+ Target Cells 1+ Sodium Potassium Chloride Carbon Dioxide Anion Gap BUN Creatinine Est GFR (CKD-EPI)AfAm Est GFR (CKD-EPI)NonAf POC Glucometer 192 190 Random Glucose Calcium Phosphorus Magnesium Total Bilirubin AST ALT Alkaline Phosphatase Total Protein Albumin 03/17/19 03/17/19 03/17/19 05:57 06:05 11:39 WBC RBC Hgb Hct MCV MCH MCHC RDW Plt Count MPV Absolute Neuts (auto) Neutrophils % Neutrophils % (Manual) Band Neutrophils % Lymphocytes % Lymphocytes % (Manual) Monocytes % Monocytes % (Manual) Eosinophils % Eosinophils % (Manual) Basophils % Basophils % (Manual) Myelocytes % (Man) Promyelocytes % (Man) Blast Cells % (Manual) Nucleated RBC % Metamyelocytes Hypochromia Platelet Estimate Platelet Comment Polychromasia Poikilocytosis Anisocytosis Microcytosis Macrocytosis Target Cells Sodium 138 Potassium 2.9 L* Chloride 100 Carbon Dioxide 26 Anion Gap 12 BUN 24.0 H Creatinine 1.8 H Est GFR (CKD-EPI)AfAm 42.03 Est GFR (CKD-EPI)NonAf 36.27 POC Glucometer 196 171 Random Glucose 201 H Calcium 6.8 L* Phosphorus 2.5 Magnesium 2.0 Total Bilirubin 2.2 H AST 42 H ALT 14 Alkaline Phosphatase 384 H Total Protein 4.5 L Albumin 1.1 L Active Medications Generic Name Dose Route Start Last Admin Trade Name Freq PRN Reason Stop Dose Admin Acetaminophen 1,000 mg 03/11/19 04:18 03/12/19 01:54 Ofirmev Injection - IVPB 1,000 mg Q6H PRN Administration FEVER Amino Acids 30 ml 02/21/19 22:00 03/17/19 06:21 Prosource No Carb Liquid Pkt PO Not Given TID CHANTELL Apixaban 2.5 mg 02/21/19 22:00 03/17/19 09:45 Eliquis - PO 2.5 mg BID CHANTELL Administration Atorvastatin Calcium 20 mg 02/21/19 22:00 03/17/19 00:20 Lipitor - PO 20 mg HS CHANTELL Administration Collagenase 1 applic 02/22/19 10:00 03/17/19 09:45 Santyl - TP 1 applic DAILY CHANTELL Administration Protocol Escitalopram Oxalate 10 mg 02/22/19 10:00 03/17/19 09:45 Lexapro - PO 10 mg DAILY CHANTELL Administration Hydrocortisone Sodium Succinate 100 mg 03/11/19 11:00 03/17/19 09:44 Solu-Cortef - IVPB 100 mg Q8H-IV CHANTELL Administration Fentanyl 500 mcg/ Dextrose 100 mls @ 1 mls/hr 03/11/19 00:45 03/17/19 08:34 IVPB 25 mcg/hr TITR CHANTELL 5 mls/hr Administration 5 MCG/HR Norepinephrine Bitartrate 8, 500 mls @ 18.75 mls/hr 03/11/19 05:58 03/17/19 10:23 000 mcg/ Dextrose IV 10 mcg/min ASDIR CHANTELL 37.5 mls/hr Titration Protocol 5 MCG/MIN Vasopressin 50 units/ Sodium 100 mls @ 4 mls/hr 03/11/19 06:30 03/17/19 10:24 Chloride IVPB 4 units/hr ASDIR CHANTELL 8 mls/hr Titration Protocol 2 UNITS/HR Meropenem 500 mg/ Dextrose 100 mls @ 200 mls/hr 03/11/19 10:00 03/17/19 09:42 IVPB 200 mls/hr DAILY CHANTELL Administration Insulin Aspart 1 vial 03/13/19 12:00 03/17/19 11:50 Novolog Vial Sliding Scale - SQ Not Given Q6HPO CHANTELL Protocol Midodrine 10 mg 03/02/19 14:00 03/17/19 09:43 Proamatine - PO 10 mg TID-MID CHANTELL Administration Multivitamins/Minerals/Vitamin C 1 tab 02/22/19 10:00 03/17/19 09:43 Tab-A-Vit - PO 1 tab DAILY CHANTELL Administration Pantoprazole Sodium 40 mg 03/14/19 22:00 03/17/19 09:42 Protonix Iv IVPUSH 40 mg BID CHANTELL Administration Tamsulosin HCl 0.4 mg 02/21/19 22:00 03/16/19 22:51 Flomax - PO 0.4 mg HS CHANTELL Administration ASSESSMENT/PLAN: Ethics meeting done, waiting for input from Hospital Law team for guidance Pt continues to require pressers and is intubated. H/H shows improvement today after 2 units and HD yesterday #septic shock 2/2 DM gangrenous B/L feet infx, Infected sacral decub and scrotal ulcer, and GN bacteremia (proteus, prevotella) - requiring ICU and pressors. Now w/ hypoxic respiratory failure possibly 2/2 developing aspiration PNA (aspirated over the weekend) requiring intubation/sedation. CXR 03/11 shows questionable infiltrate L base. +Leukocytosis. afebrile now for >24hr -old cx with E coli, ESBL, MRSA, and VRE. -contact isolation for MDRO -s/p Vanc and Zosyn in the ED, Gentamicin x1, Meropenem x2 in ICU -Bcx 02/21/19 growing GN cher - proteus and prevotella -ucx neg -wound cx E coli, morganella -Bcx 02/23/19 neg -03/11/19 sputum cx MRSA, pseudomonas A,ecoli esbl, acinetobacter ; bcx ecoli esbl bacteremia. -ID consulted, Rangel -lactic acid resolved -palliative care consulted -s/p CTX 2g/flagyl, c/w Meropenem day #20 total abx, ID recs appreciated. -s/p vanc and gentamicin x1 yesterday per ID -Aspiration precautions. -c/w Levophed 8, vasopressin 6, stress steroids. Titrate pressors to keep MAP>65 -fentanyl 25mcg for comfort and sedation -vascular surgery consulted, Dr harry, for wound care. amputation indicated, but family not amenable. cont GOC #Seizure-like myoclonus 03/12/19 - noted overnight. resolved w/ ativan 1mg and loaded w/ keppra. see Dr Overton note for further details c/w keppra 250 bid #ESRD on HD (MWF) -nephro consulted (Dr. Henriquez) -HD as per nephvito marino held by nephro for low phos. #Acute on chronic anemia likely 2/2 ESRD -monitor H/H #Severe protein calorie malnutrition -albumin 1.1, prealbumin 3.5 -thin appearing, decreased muscle mass and fat -decreased overall PO intake -Magic cup, Ensure pudding for increased density of nutritional intake. Now on NGT while intubated #COPD -keep SpO2>90% -Duonebs q6h PRN #Dm ISS BGM ACHS #H/o hypotension : c/w home midodrine monitor vitals # h/o afib c/w elequis 2.5 bid #FEN -Not on any standing fluids -replete prn -NGT on tube feeds #Prophylaxis -Eliquis 2.5mg BID -Protonix IV while on AC and pressors -bacid Visit type - Emergency Visit Emergency Visit: No - New Patient This patient is new to me today: No - Critical Care Critical Care patient: Yes Total Critical Care Time (in minutes): 35 Critical Care Statement: The care of this patient involved high complexity decision making to prevent further life threatening deterioration of the patient 's condition and/or to evaluate & treat vital organ system(s) failure or risk of failure.
--- NOTE | 2019-03-17 19:49 | PN ---
Teaching Attending Note Name of Resident: Mathew Adorno ATTENDING PHYSICIAN STATEMENT I saw and evaluated the patient. I reviewed the resident's note and discussed the case with the resident. I agree with the resident's findings and plan as documented. SUBJECTIVE: No new changes. continues intubated in ICU. OBJECTIVE: Vital Signs Temperature 97.5 F L 03/17/19 18:51 Pulse Rate 98 H 03/17/19 19:21 Respiratory Rate 22 H 03/17/19 19:21 Blood Pressure 118/61 03/17/19 19:21 O2 Sat by Pulse Oximetry (%) 98 03/17/19 09:18 GENERAL: The patient is intubated , sedated. HEAD: Normal with no signs of trauma. EYES: extraocular movements intact, sclera anicteric, ENT: intubated and sedated . NECK: Trachea midline, positive for ET-tube LUNGS: intubated , sedated . HEART: RRR , S1, S2 without murmur, rub or gallop. ABDOMEN: Soft, NT, ND, BS positive, no guarding, no rebound, no hepatosplenomegaly, no masses. EXTREMITIES: gangrenous lower extremities SKIN: Warm. CBCD WBC 10.7 K/mm3 (4.0-10.0) H 03/17/19 05:57 RBC 3.02 M/mm3 (4.00-5.60) L 03/17/19 05:57 Hgb 9.2 GM/dL (11.7-16.9) L 03/17/19 05:57 Hct 28.0 % (35.4-49) L 03/17/19 05:57 MCV 92.5 fl (80-96) 03/17/19 05:57 MCHC 32.7 g/dl (32.0-35.9) 03/17/19 05:57 RDW 19.3 % (11.9-15.9) H 03/17/19 05:57 Plt Count 123 K/MM3 (134-434) L 03/17/19 05:57 MPV 11.6 fl (7.5-11.1) H 03/17/19 05:57 CMP Sodium 138 mmol/L (136-145) 03/17/19 05:57 Potassium 2.9 mmol/L (3.5-5.1) L* 03/17/19 05:57 Chloride 100 mmol/L (98-107) 03/17/19 05:57 Carbon Dioxide 26 mmol/L (21-32) 03/17/19 05:57 Anion Gap 12 MMOL/L (8-16) 03/17/19 05:57 BUN 24.0 mg/dL (7-18) H 03/17/19 05:57 Creatinine 1.8 mg/dL (0.55-1.3) H 03/17/19 05:57 Random Glucose 201 mg/dL (74-106) H 03/17/19 05:57 Calcium 6.8 mg/dL (8.5-10.1) L* 03/17/19 05:57 Total Bilirubin 2.2 mg/dL (0.2-1) H 03/17/19 05:57 AST 42 U/L (15-37) H 03/17/19 05:57 ALT 14 U/L (13-61) 03/17/19 05:57 Alkaline Phosphatase 384 U/L (45-117) H 03/17/19 05:57 Total Protein 4.5 g/dl (6.4-8.2) L 03/17/19 05:57 Albumin 1.1 g/dl (3.4-5.0) L 03/17/19 05:57 CARDIAC ENZYMES Troponin I < 0.02 ng/ml (0.00-0.05) 02/21/19 15:10 Current Medications Generic Name Dose Route Start Last Admin Trade Name Freq PRN Reason Stop Dose Admin Acetaminophen 1,000 mg 03/11/19 04:18 03/12/19 01:54 Ofirmev Injection - IVPB 1,000 mg Q6H PRN Administration FEVER Amino Acids 30 ml 02/21/19 22:00 03/17/19 14:28 Prosource No Carb Liquid Pkt PO 30 ml TID CHANTELL Administration Apixaban 2.5 mg 02/21/19 22:00 03/17/19 09:45 Eliquis - PO 2.5 mg BID CHANTELL Administration Atorvastatin Calcium 20 mg 02/21/19 22:00 03/17/19 00:20 Lipitor - PO 20 mg HS CHANTELL Administration Collagenase 1 applic 02/22/19 10:00 03/17/19 09:45 Santyl - TP 1 applic DAILY CHANTELL Administration Protocol Escitalopram Oxalate 10 mg 02/22/19 10:00 03/17/19 09:45 Lexapro - PO 10 mg DAILY CHANTELL Administration Hydrocortisone Sodium Succinate 100 mg 03/11/19 11:00 03/17/19 09:44 Solu-Cortef - IVPB 100 mg Q8H-IV CHANTELL Administration Fentanyl 500 mcg/ Dextrose 100 mls @ 1 mls/hr 03/11/19 00:45 03/17/19 08:34 IVPB 25 mcg/hr TITR CHANTELL 5 mls/hr Administration 5 MCG/HR Norepinephrine Bitartrate 8, 500 mls @ 18.75 mls/hr 03/11/19 05:58 03/17/19 17:29 000 mcg/ Dextrose IV 16 mcg/min ASDIR CHANTELL 60 mls/hr Administration Protocol 5 MCG/MIN Vasopressin 50 units/ Sodium 100 mls @ 4 mls/hr 03/11/19 06:30 03/17/19 17:28 Chloride IVPB 2 units/hr ASDIR CHANTELL 4 mls/hr Titration Protocol 2 UNITS/HR Meropenem 500 mg/ Dextrose 100 mls @ 200 mls/hr 03/11/19 10:00 03/17/19 09:42 IVPB 200 mls/hr DAILY CHANTELL Administration Insulin Aspart 1 vial 03/13/19 12:00 03/17/19 17:46 Novolog Vial Sliding Scale - SQ 4 units Q6HPO CHANTELL Administration Protocol Midodrine 10 mg 03/02/19 14:00 03/17/19 14:28 Proamatine - PO 10 mg TID-MID CHANTELL Administration Multivitamins/Minerals/Vitamin C 1 tab 02/22/19 10:00 03/17/19 09:43 Tab-A-Vit - PO 1 tab DAILY CHANTELL Administration Pantoprazole Sodium 40 mg 03/14/19 22:00 03/17/19 09:42 Protonix Iv IVPUSH 40 mg BID CHANTELL Administration Tamsulosin HCl 0.4 mg 02/21/19 22:00 03/16/19 22:51 Flomax - PO 0.4 mg HS CHANTELL Administration Home Medications Medication Instructions Recorded Albuterol 2.5/Ipratropium 0.5 1 amp NEB Q6H PRN #0 amp 07/12/17 [Duoneb -] Allopurinol [Zyloprim -] 100 mg PO DAILY tablet 07/12/17 Atorvastatin Ca [Lipitor] 20 mg PO HS tablet 07/12/17 Collagenase Clostridium Hist. 1 applic TP DAILY tube 09/06/18 [Santyl -] Albuterol Sulfate [Proair Hfa] 2 puff IH Q6H PRN 10/29/18 Escitalopram Oxalate [Lexapro -] 10 mg PO DAILY 10/29/18 Folic Acid/Vit B Complex and C 1 each PO DAILY 10/29/18 [Dialyvite Tablet] Midodrine HCl 10 mg PO MOWEFR 10/29/18 Sevelamer Carbonate [Renvela -] 1,600 mg PO TID 10/29/18 Tamsulosin HCl [Flomax] 0.4 mg PO HS 10/29/18 Insulin Sliding Scale [Novolog 1 vial SQ TIDAC #1 vial 11/17/18 Vial Sliding Scale -] Apixaban [Eliquis -] 5 mg PO BID #30 tablet MDD 2 11/19/18 Collagenase Clostridium Hist. 1 applic TP DAILY #1 tube 01/17/19 [Santyl -] Amoxicillin/Potassium Clav 1 each PO DAILY #7 tablet 02/06/19 [Augmentin 500-125 Tablet] Megestrol Acetate Oral Susp 400 mg PO DAILY #20 cup 02/06/19 [Megace Liquid -] Protein Supplement [Prosource] 275 gm PO TID #60 powder 02/06/19 Lactobacillus Acidophilus [Bacid -] 1 tab PO DAILY #60 tab 02/19/19 Midodrine HCl [Proamatine -] 5 mg PO SuTuThSa #60 tablet 02/19/19 traMADol HCL [Ultram -] 50 mg PO Q6H PRN #60 tablet MDD 4 02/19/19 03/11/19 05:30 Blood - Peripheral Venous Blood Culture - Final NO GROWTH AFTER 5 DAYS INCUBATION 03/11/19 10:15 Sputum - Endotrachea Suction/Ventilator Gram Stain - Final 03/11/19 10:15 Sputum - Endotrachea Suction/Ventilator Sputum Culture - Final Mr S Aureus Escherichia Coli [employer] Acinetobacter Baumannii/Haemol Pseudomonas Aeruginosa 03/11/19 06:45 Blood - Peripheral Venous Blood Culture - Final Escherichia Coli [employer] 02/23/19 11:50 Blood - Peripheral Venous Blood Culture - Final NO GROWTH AFTER 5 DAYS INCUBATION 02/23/19 11:50 Blood - Peripheral Venous Blood Culture - Final NO GROWTH AFTER 5 DAYS INCUBATION 02/21/19 13:16 Blood - Peripheral Venous Blood Culture - Final Proteus Mirabilis Prevotella Melaninogenica 02/21/19 16:30 Foot - Left Heel Gram Stain - Final 02/21/19 16:30 Foot - Left Heel Wound Culture - Final Escherichia Coli [employer] Morganella Morganii 02/21/19 15:40 Blood - Peripheral Venous Blood Culture - Final Proteus Mirabilis 02/21/19 14:50 Urine - Urine - Catheterized Urine Culture - Final NO GROWTH OBTAINED ASSESSMENT AND PLAN: Patient is a 73 y/o man with h/o dementia, CVA, DM, COPD, ESRD, gout, HTN, HLP, recent admission 01/31-02/19 during which he was treated for sepsis due to infected b/l feet ulcers/gangrene. He was sent form NH due to poor po intake, and non healing wounds # Acute hypoxic respiratory failure s/p intubation in ICU vent management and sedation as per ICU team continues # Septic shock due GNR bacteremia ecoli esbl bacteremia due to gangrenous infection of LEs cont meropenem ,discussed with ID, on 2 pressors continue # Infected sacral decub and scrotal ulcer continue current management # ESRD on HD per schedule , management per nephro # DM SSI with coverage # anemia # Acute hyponatremia 130--128-->138 improved , on NS continue # Hx of BPH: on Flomax GI Px: PPI DVT px; Eliquis
[2019-03-17] MEDS: TAMSULOSIN HCL 0.4 MG CAP PO SCH (21:27)
[2019-03-18] MEDS ORDERED: PT OWN MED DRAWER 7, Y5N ONE ×2 (03:10→11:38)
[2019-03-18] MEDS: HYDROCORTISONE SOD SUCCINATE 100 MG/2 ML VIAL IVPB SCH ×2 (03:15→10:03)
[2019-03-18] MEDS: INSULIN SLIDING SCALE (NOVOLOG) 1 VIAL SQ SCH ×4 (03:16→17:46)
[2019-03-18 05:51] LABS: BASO % 0.3 % (0-2.0); HEMATOCRIT 27.8 % (35.4-49); LYMPH % 7.6 % (8-40); MCH 29.6 pg (25.7-33.7); MCHC 32.2 g/dl (32.0-35.9); MEAN CELL VOLUME 91.8 fl (80-96); MEAN PLT VOLUME 11.6 fl (7.5-11.1); MONO % 0.2 % (3.8-10.2); NEUT % 91.9 % (42.8-82.8); PLATELET COUNT 144 K/MM3 (134-434); RBC 3.03 M/mm3 (4.00-5.60); WHITE BLOOD COUNT 13.5 K/mm3 (4.0-10.0)
[2019-03-18] MEDS: NOREPINEPHRINE BITARTRATE 8,000 MCG in DEXTROSE 5%-WATER - 492 ML IV SCH (05:52)
[2019-03-18] MEDS: AMINO ACIDS/PROTEIN HYDROLYS 30 ML LIQUID.PKT PO SCH ×3 (06:07→21:08)
[2019-03-18 06:26] LABS: ALBUMIN 1.1 g/dl (3.4-5.0); BILIRUBIN,TOTAL 2.4 mg/dL (0.2-1); BLOOD UREA NITROGEN 30.1 mg/dL (7-18); CREATININE 2.1 mg/dL (0.55-1.3); MAGNESIUM 1.9 mg/dL (1.8-2.4); PHOSPHOROUS 2.5 mg/dL (2.5-4.9); POTASSIUM 3.2 mmol/L (3.5-5.1); TOT PROT 4.5 g/dl (6.4-8.2)
[2019-03-18 06:29] LABS: CALCIUM 6.6 mg/dL (8.5-10.1)
--- NOTE | 2019-03-18 06:32 | PN ---
Physical Exam: SUBJECTIVE: Patient seen and examined in ICU. intubated sedated on pressors x2 w/ stress steroids in septic shock. GOC/ethics meeting ongoing. tube feeds held for high residuals OBJECTIVE: Vital Signs Period Temp Pulse Resp BP Sys/Zamorano Pulse Ox Last 24 Hr 97.4 F-98.3 F 4-105 18-27 101-126/41-71 98-98 GENERAL: intubated sedated. thin appearing, decreased muscle mass and fat EARS, NOSE, THROAT: dry mucous membranes. LUNGS: CTAB HEART: irregularly irregular s1s2 normal ABDOMEN: Soft, NTND normoactive bowel sounds, ulcer present on sacrum unstagable with foul discharge, scrotum has ulcer no discharge MUSCULOSKELETAL: Normal range of motion at all joints. No bony deformities or tenderness. No CVA tenderness. UPPER EXTREMITIES: 2+ pulses, warm, well-perfused. +edema LOWER EXTREMITIES: b/l wet gangrene with fouls smelling discharge SKIN: Warm, dry, Neuo: intubated sedated. no apparent gag reflex today, sluggish pupils, non responsive to pain or voice Laboratory Results - last 24 hr 03/14/19 03/17/19 03/17/19 12:00 05:57 05:57 WBC 10.7 H RBC 3.02 L Hgb 9.2 L Hct 28.0 L MCV 92.5 MCH 30.3 MCHC 32.7 RDW 19.3 H Plt Count 123 L MPV 11.6 H Absolute Neuts (auto) 9.8 H Neutrophils % 91.4 H Neutrophils % (Manual) 85.0 H Band Neutrophils % 0.0 Lymphocytes % 7.9 L D Lymphocytes % (Manual) 13.0 Monocytes % 0.4 L D Monocytes % (Manual) 1 L D Eosinophils % 0.0 D Eosinophils % (Manual) 0.0 Basophils % 0.3 Basophils % (Manual) 0.0 Myelocytes % (Man) 0 Promyelocytes % (Man) 0 Blast Cells % (Manual) 0 Nucleated RBC % 1 H Metamyelocytes 1 D Hypochromia 0 Platelet Estimate Decreased Platelet Comment Present Polychromasia 0 Poikilocytosis 1+ Anisocytosis 2+ Microcytosis 1+ Macrocytosis 1+ Target Cells 1+ Sodium 138 Potassium 2.9 L* Chloride 100 Carbon Dioxide 26 Anion Gap 12 BUN 24.0 H Creatinine 1.8 H Est GFR (CKD-EPI)AfAm 42.03 Est GFR (CKD-EPI)NonAf 36.27 POC Glucometer Random Glucose 201 H Calcium 6.8 L* Phosphorus 2.5 Magnesium 2.0 Total Bilirubin 2.2 H AST 42 H ALT 14 Alkaline Phosphatase 384 H Total Protein 4.5 L Albumin 1.1 L Blood Type A POSITIVE Antibody Screen Negative Crossmatch See Detail 03/17/19 03/17/19 03/18/19 11:39 17:33 03:02 WBC RBC Hgb Hct MCV MCH MCHC RDW Plt Count MPV Absolute Neuts (auto) Neutrophils % Neutrophils % (Manual) Band Neutrophils % Lymphocytes % Lymphocytes % (Manual) Monocytes % Monocytes % (Manual) Eosinophils % Eosinophils % (Manual) Basophils % Basophils % (Manual) Myelocytes % (Man) Promyelocytes % (Man) Blast Cells % (Manual) Nucleated RBC % Metamyelocytes Hypochromia Platelet Estimate Platelet Comment Polychromasia Poikilocytosis Anisocytosis Microcytosis Macrocytosis Target Cells Sodium Potassium Chloride Carbon Dioxide Anion Gap BUN Creatinine Est GFR (CKD-EPI)AfAm Est GFR (CKD-EPI)NonAf POC Glucometer 171 226 206 Random Glucose Calcium Phosphorus Magnesium Total Bilirubin AST ALT Alkaline Phosphatase Total Protein Albumin Blood Type Antibody Screen Crossmatch 03/18/19 03/18/19 03/18/19 05:35 05:35 05:38 WBC 13.5 H RBC 3.03 L Hgb 9.0 L Hct 27.8 L MCV 91.8 MCH 29.6 MCHC 32.2 RDW 19.0 H Plt Count 144 MPV 11.6 H Absolute Neuts (auto) 12.4 H Neutrophils % 91.9 H Neutrophils % (Manual) Band Neutrophils % Lymphocytes % 7.6 L Lymphocytes % (Manual) Monocytes % 0.2 L Monocytes % (Manual) Eosinophils % 0.0 Eosinophils % (Manual) Basophils % 0.3 Basophils % (Manual) Myelocytes % (Man) Promyelocytes % (Man) Blast Cells % (Manual) Nucleated RBC % 0 Metamyelocytes Hypochromia Platelet Estimate Platelet Comment Polychromasia Poikilocytosis Anisocytosis Microcytosis Macrocytosis Target Cells Sodium 134 L Potassium 3.2 L Chloride 98 Carbon Dioxide 27 Anion Gap 9 BUN 30.1 H Creatinine 2.1 H Est GFR (CKD-EPI)AfAm 34.89 Est GFR (CKD-EPI)NonAf 30.10 POC Glucometer 177 Random Glucose 187 H Calcium 6.6 L* Phosphorus 2.5 Magnesium 1.9 Total Bilirubin 2.4 H AST 49 H ALT 16 Alkaline Phosphatase 411 H Total Protein 4.5 L Albumin 1.1 L Blood Type Antibody Screen Crossmatch Active Medications Generic Name Dose Route Start Last Admin Trade Name Freq PRN Reason Stop Dose Admin Acetaminophen 1,000 mg 03/11/19 04:18 03/12/19 01:54 Ofirmev Injection - IVPB 1,000 mg Q6H PRN Administration FEVER Amino Acids 30 ml 02/21/19 22:00 03/18/19 06:07 Prosource No Carb Liquid Pkt PO Not Given TID CHANTELL Apixaban 2.5 mg 02/21/19 22:00 03/17/19 21:27 Eliquis - PO 2.5 mg BID CHANTELL Administration Atorvastatin Calcium 20 mg 02/21/19 22:00 03/17/19 21:32 Lipitor - PO 20 mg HS CHANTELL Administration Collagenase 1 applic 02/22/19 10:00 03/17/19 09:45 Santyl - TP 1 applic DAILY CHANTELL Administration Protocol Escitalopram Oxalate 10 mg 02/22/19 10:00 03/17/19 09:45 Lexapro - PO 10 mg DAILY CHANTELL Administration Hydrocortisone Sodium Succinate 100 mg 03/11/19 11:00 03/18/19 03:15 Solu-Cortef - IVPB 100 mg Q8H-IV CHANTELL Administration Fentanyl 500 mcg/ Dextrose 100 mls @ 1 mls/hr 03/11/19 00:45 03/17/19 08:34 IVPB 25 mcg/hr TITR CHANTELL 5 mls/hr Administration 5 MCG/HR Norepinephrine Bitartrate 8, 500 mls @ 18.75 mls/hr 03/11/19 05:58 03/18/19 05:52 000 mcg/ Dextrose IV 16 mcg/min ASDIR CHANTELL 60 mls/hr Administration Protocol 5 MCG/MIN Vasopressin 50 units/ Sodium 100 mls @ 4 mls/hr 03/11/19 06:30 03/17/19 17:28 Chloride IVPB 2 units/hr ASDIR CHANTELL 4 mls/hr Titration Protocol 2 UNITS/HR Meropenem 500 mg/ Dextrose 100 mls @ 200 mls/hr 03/11/19 10:00 03/17/19 09:42 IVPB 200 mls/hr DAILY CHANTELL Administration Insulin Aspart 1 vial 03/13/19 12:00 03/18/19 06:07 Novolog Vial Sliding Scale - SQ 2 units Q6HPO CHANTELL Administration Protocol Midodrine 10 mg 03/02/19 14:00 03/17/19 14:28 Proamatine - PO 10 mg TID-MID CHANTELL Administration Multivitamins/Minerals/Vitamin C 1 tab 02/22/19 10:00 03/17/19 09:43 Tab-A-Vit - PO 1 tab DAILY CHANTELL Administration Pantoprazole Sodium 40 mg 03/14/19 22:00 03/17/19 21:32 Protonix Iv IVPUSH 40 mg BID CHANTELL Administration Tamsulosin HCl 0.4 mg 02/21/19 22:00 03/17/19 21:27 Flomax - PO 0.4 mg HS CHANTELL Administration ASSESSMENT/PLAN: 73 yo M PMH dementia, CVA, DM, COPD, ESRD, gout, HTN, HLP, recent admission 01/31- 02/19 during which he was treated for sepsis due to infected b/l feet ulcers/ gangrene. He was sent form NH due to poor po intake, and worsening of ulcers. Now in septic shock 2/2 DM gangrenous B/L feet infx, Infected sacral decub and scrotal ulcer, and GN bacteremia , requiring ICU and pressors #septic shock 2/2 DM gangrenous B/L feet infx, Infected sacral decub and scrotal ulcer, and GN bacteremia (proteus, prevotella) - requiring ICU and pressors. Now w/ hypoxic respiratory failure possibly 2/2 developing aspiration PNA (aspirated over the weekend) requiring intubation/sedation. CXR 03/11 shows questionable infiltrate L base. +Leukocytosis. afebrile now for >72hr -old cx with E coli, ESBL, MRSA, and VRE. -contact isolation for MDRO -s/p Vanc and Zosyn in the ED, Gentamicin x1, Meropenem x2 in ICU -Bcx 02/21/19 growing GN cher - proteus and prevotella -ucx neg -wound cx E coli, morganella -Bcx 02/23/19 neg -03/11/19 sputum cx MRSA, pseudomonas A,ecoli esbl, acinetobacter ; bcx ecoli esbl bacteremia. -MDRO: strict contact isolation -ID consulted, Rangel -palliative care consulted -s/p CTX 2g/flagyl, c/w Meropenem day #24 total abx, ID recs appreciated. -s/p vanc and gentamicin x1 03/13/19 per ID -Aspiration precautions. -c/w Levophed 8, vasopressin 2, stress steroids. Titrate pressors to keep MAP>65 -fentanyl 25mcg for comfort and sedation -vascular surgery consulted, Dr harry, for wound care. amputation indicated, but family not amenable. cont GOC #Seizure-like myoclonus 03/12/19 - noted overnight. resolved w/ ativan 1mg and loaded w/ keppra. see Dr Overton note for further details c/w keppra 250 bid #ESRD on HD (MWF) -nephro consulted (Dr. Henriquez) -HD as per nephro ned held by nephro for low phos. #Acute on chronic anemia likely 2/2 ESRD and sepsis -monitor H/H -H/H 6.9...9.6 s/p 2u prbc, transfuse prn to maintain hgb >7 #Transaminitis - likely 2/2 septic shock avoid toxic drugs #Severe protein calorie malnutrition -albumin 1.1, prealbumin 3.5 -thin appearing, decreased muscle mass and fat -decreased overall PO intake -Magic cup, Ensure pudding for increased density of nutritional intake. Now on NGT while intubated #COPD -keep SpO2>90% -Duonebs q6h PRN #Dm ISS BGM ACHS #H/o hypotension : c/w home midodrine monitor vitals # h/o afib c/w elequis 2.5 bid #FEN -Not on any standing fluids -replete prn -NGT on tube feeds, tube feeds held for high residuals, resume when appropriate #Prophylaxis -Eliquis 2.5mg BID -Protonix IV while on AC and pressors -bacid #Disposition -full code -GOC/ethics consult placed, as we have attempted multiple times to contact daughter who has not been responsive and in the past has not been amenable to to allow for source control/amputation and standard of care. given patients inability to make decisions for himself and daughter unwillingness pt will likely cont to suffer w/o improvement and has spoor prognosis. multiple times various members of primary team and ICU team have tried contacting daughter for GOC/ethics meeting. Resident Dr Milton was able to make contact w/ daughter but no meaningful discussion was able to take place, please see Dr Milton note for further detail. brother has been contacted and has spoken w/ palliative. daughter will not be coming, This may constitute pt abandonment. palliative trying to contact pt other children/NOK, letters have been sent out -given overall poor prognosis, conservative measures and comfort care may be appropriate -ICU monitoring Visit type - Emergency Visit Emergency Visit: Yes ED Registration Date: 02/21/19 Care time: The patient presented to the Emergency Department on the above date and was hospitalized for further evaluation of their emergent condition. - New Patient This patient is new to me today: Yes Date on this admission: 03/18/19 - Critical Care Critical Care patient: Yes Total Critical Care Time (in minutes): 38 Critical Care Statement: The care of this patient involved high complexity decision making to prevent further life threatening deterioration of the patient 's condition and/or to evaluate & treat vital organ system(s) failure or risk of failure.
[2019-03-18] MEDS ORDERED: fentaNYL CITRATE 250 MCG/5 ML VIAL ONE (07:36)
[2019-03-18] MEDS: FENTANYL INJECTION 500 MCG in DEXTROSE 5%-WATER - 90 ML IVPB SCH (08:43)
[2019-03-18 09:22] LABS: ANISOCYTOSIS 2+; MACROCYTOSIS 1+; PLATELET ESTIMATE NORMAL; TARGET CELLS 1+
[2019-03-18] MEDS: PANTOPRAZOLE SODIUM 40 MG VIAL IVPUSH SCH ×2 (10:03→21:08)
[2019-03-18] MEDS: MIDODRINE HCL 5 MG TABLET PO SCH ×3 (10:04→17:40)
[2019-03-18] MEDS: MULTIVITAMINS (DAILY MVI) TABLET (FP) PO SCH (10:04)
[2019-03-18] MEDS: ESCITALOPRAM OXALATE 10 MG TABLET (FP) PO SCH (10:05)
--- NOTE | 2019-03-18 10:31 | EKG ---
Test Reason : Blood Pressure : / mmHG Vent. Rate : 082 BPM Atrial Rate : 072 BPM P-R Int : 150 ms QRS Dur : 084 ms QT Int : 382 ms P-R-T Axes : 074 054 050 degrees QTc Int : 446 ms SINUS RHYTHM WITH OCCASIONAL and consecutive PREMATURE VENTRICULAR COMPLEXES NONSPECIFIC T WAVE ABNORMALITY ABNORMAL ECG WHEN COMPARED WITH ECG OF 08-MAR-2019 14:36, NO SIGNIFICANT CHANGE WAS FOUND Confirmed by ORQUIDEA BISHOP, CHERELLE ([id number]) on 03/18/2019 10:30:39 AM Referred By: Confirmed By:CHERELLE HEARD MD
[2019-03-18] MEDS: COLLAGENASE CLOSTRIDIUM HIST. 30 GRAMS TUBE TP SCH (10:47)
[2019-03-18] MEDS: APIXABAN 2.5 MG TABLET PO SCH ×2 (11:00→21:07)
[2019-03-18] MEDS: MEROPENEM 500 MG in DEXTROSE 5%-WATER 100 ML IVPB SCH (11:00)
--- NOTE | 2019-03-18 12:33 | PN ---
Teaching Attending Note Name of Resident: Gualberto Eagle ATTENDING PHYSICIAN STATEMENT I saw and evaluated the patient. I reviewed the resident's note and discussed the case with the resident. I agree with the resident's findings and plan as documented. SUBJECTIVE: Pt seen and examined in the ICU. Remains intubated, sedated on levophed and vasopressin gtts. OBJECTIVE: Vital Signs Period Temp Pulse Resp BP Sys/Zamorano Pulse Ox Last 24 Hr 97.4 F-98.2 F 79-105 18-25 101-126/41-72 99-99 Intake & Output 03/15/19 03/16/19 03/17/19 03/18/19 23:59 23:59 23:59 23:59 Intake Total 580 1449.8 1229.1 273 Output Total 0 0 2 0 Balance 580 1449.8 1227.1 273 Weight 78.109 kg 75.523 kg 73.527 kg 76.459 kg Gen: intubated, sedated Heart: RRR Lung: scattered rhonchi Abd: soft, nontender Ext: no edema, legs wrapped CBC, BMP 03/18/19 05:35 03/18/19 05:35 Active Medications Acetaminophen (Ofirmev Injection -) 1,000 mg IVPB Q6H PRN PRN Reason: FEVER Last Admin: 03/12/19 01:54 Dose: 1,000 mg Amino Acids (Prosource No Carb Liquid Pkt) 30 ml PO TID [facility] Last Admin: 03/18/19 06:07 Dose: Not Given Apixaban (Eliquis -) 2.5 mg PO BID [facility] Last Admin: 03/18/19 11:00 Dose: 2.5 mg Atorvastatin Calcium (Lipitor -) 20 mg PO HS [facility] Last Admin: 03/17/19 21:32 Dose: 20 mg Collagenase (Santyl -) 1 applic TP DAILY [facility]; Protocol Last Admin: 03/18/19 10:47 Dose: Not Given Escitalopram Oxalate (Lexapro -) 10 mg PO DAILY [facility] Last Admin: 03/18/19 10:05 Dose: 10 mg Hydrocortisone Sodium Succinate (Solu-Cortef -) 100 mg IVPB Q8H-IV CHANTELL Last Admin: 03/18/19 10:03 Dose: 100 mg Fentanyl 500 mcg/ Dextrose 100 mls @ 1 mls/hr IVPB TITR [facility] Last Admin: 03/18/19 08:43 Dose: 25 mcg/hr, 5 mls/hr Norepinephrine Bitartrate 8, (000 mcg/ Dextrose) 500 mls @ 18.75 mls/hr IV ASDIR CHANTELL; Protocol Last Admin: 03/18/19 05:52 Dose: 16 mcg/min, 60 mls/hr Vasopressin 50 units/ Sodium (Chloride) 100 mls @ 4 mls/hr IVPB ASDIR CHANTELL; Protocol Last Titration: 03/17/19 17:28 Dose: 2 units/hr, 4 mls/hr Meropenem 500 mg/ Dextrose 100 mls @ 200 mls/hr IVPB DAILY CHANTELL Last Admin: 03/18/19 11:00 Dose: 200 mls/hr Insulin Aspart (Novolog Vial Sliding Scale -) 1 vial SQ Q6HPO CHANTELL; Protocol Last Admin: 03/18/19 12:17 Dose: 2 units Midodrine (Proamatine -) 10 mg PO TID-MID CHANTELL Last Admin: 03/18/19 10:04 Dose: 10 mg Multivitamins/Minerals/Vitamin C (Tab-A-Vit -) 1 tab PO DAILY CHANTELL Last Admin: 03/18/19 10:04 Dose: 1 tab Pantoprazole Sodium (Protonix Iv) 40 mg IVPUSH BID CHANTELL Last Admin: 03/18/19 10:03 Dose: 40 mg Tamsulosin HCl (Flomax -) 0.4 mg PO HS CHANTELL Last Admin: 03/17/19 21:27 Dose: 0.4 mg ASSESSMENT AND PLAN: Acute Hypoxic Respiratory Failure Pneumonia suspect Aspiration ESBL E coli Bacteremia Septic Shock Bilateral Feet Gangrene Infected Decubitus Ulcers ESRD on HD DM HTN Hyperlipidemia h/o CVA - continue antibiotics per ID - continue midodrine - taper pressors to maintain MAP >65 - monitor H/H - local wound care - HD per renal - aspiration precautions - DVT prophylaxis - continue efforts to discuss medical condition and prognosis with next of kin - given overall poor condition, current medical condition, and overall poor rn long term care outcome, recommend palliative/comfort care - continue ICU monitoring critical care time spent in reviewing chart, evaluating patient and formulating plan 35 min
[2019-03-18] MEDS ORDERED: SODIUM CHLORIDE 250 ML IV PRN (13:48)
--- NOTE | 2019-03-18 13:48 | PN ---
Progress Note, Physician History of Present Illness: Pt seen and examined at bedside. He remains in the ICU. He remains lethargic. - Current Medication List Current Medications: Active Medications Acetaminophen (Ofirmev Injection -) 1,000 mg IVPB Q6H PRN PRN Reason: FEVER Last Admin: 03/12/19 01:54 Dose: 1,000 mg Amino Acids (Prosource No Carb Liquid Pkt) 30 ml PO TID CHANTELL Last Admin: 03/18/19 06:07 Dose: Not Given Apixaban (Eliquis -) 2.5 mg PO BID CHANTELL Last Admin: 03/18/19 11:00 Dose: 2.5 mg Atorvastatin Calcium (Lipitor -) 20 mg PO HS CHANTELL Last Admin: 03/17/19 21:32 Dose: 20 mg Collagenase (Santyl -) 1 applic TP DAILY CHANTELL; Protocol Last Admin: 03/18/19 10:47 Dose: Not Given Escitalopram Oxalate (Lexapro -) 10 mg PO DAILY CHANTELL Last Admin: 03/18/19 10:05 Dose: 10 mg Hydrocortisone Sodium Succinate (Solu-Cortef -) 100 mg IVPB Q8H-IV CHANTELL Last Admin: 03/18/19 10:03 Dose: 100 mg Fentanyl 500 mcg/ Dextrose 100 mls @ 1 mls/hr IVPB TITR CHANTELL Last Admin: 03/18/19 08:43 Dose: 25 mcg/hr, 5 mls/hr Norepinephrine Bitartrate 8, (000 mcg/ Dextrose) 500 mls @ 18.75 mls/hr IV ASDIR CHANTELL; Protocol Last Admin: 03/18/19 05:52 Dose: 16 mcg/min, 60 mls/hr Vasopressin 50 units/ Sodium (Chloride) 100 mls @ 4 mls/hr IVPB ASDIR CHANTELL; Protocol Last Titration: 03/17/19 17:28 Dose: 2 units/hr, 4 mls/hr Meropenem 500 mg/ Dextrose 100 mls @ 200 mls/hr IVPB DAILY CHANTELL Last Admin: 03/18/19 11:00 Dose: 200 mls/hr Insulin Aspart (Novolog Vial Sliding Scale -) 1 vial SQ Q6HPO CHANTELL; Protocol Last Admin: 03/18/19 12:17 Dose: 2 units Midodrine (Proamatine -) 10 mg PO TID-MID CHANTELL Last Admin: 03/18/19 10:04 Dose: 10 mg Multivitamins/Minerals/Vitamin C (Tab-A-Vit -) 1 tab PO DAILY CHANTELL Last Admin: 03/18/19 10:04 Dose: 1 tab Pantoprazole Sodium (Protonix Iv) 40 mg IVPUSH BID CHANTELL Last Admin: 03/18/19 10:03 Dose: 40 mg Tamsulosin HCl (Flomax -) 0.4 mg PO HS [facility] Last Admin: 03/17/19 21:27 Dose: 0.4 mg - Objective Vital Signs: Vital Signs Temperature 97.6 F 03/18/19 13:00 Pulse Rate 82 03/18/19 13:00 Respiratory Rate 22 H 03/18/19 13:00 Blood Pressure 115/64 03/18/19 13:00 O2 Sat by Pulse Oximetry (%) 99 03/18/19 11:52 Constitutional: Yes: Calm Eyes: Yes: Conjunctiva Clear HENT: Yes: Atraumatic Cardiovascular: Yes: S1, S2 Respiratory: Yes: Mechanically Ventilated Genitourinary: Yes: Incontinence Musculoskeletal: Yes: Muscle Weakness Edema: No Wound/Incision: Yes: Dressing Dry and Intact, Other (odor from wounds) Neurological: Yes: Lethargy Labs: CBC, BMP 03/18/19 05:35 03/18/19 05:35 INR, PTT INR 1.44 (0.83-1.09) H 02/22/19 05:40 Problem List - Problems (1) ESRD (end stage renal disease) on dialysis Code(s): N18.6 - END STAGE RENAL DISEASE; Z99.2 - DEPENDENCE ON RENAL DIALYSIS Assessment/Plan Current Medications Generic Name Dose Route Start Last Admin Trade Name Kassandra PRN Reason Stop Dose Admin Acetaminophen 1,000 mg 03/11/19 04:18 03/12/19 01:54 Ofirmev Injection - IVPB 1,000 mg Q6H PRN Administration FEVER Amino Acids 30 ml 02/21/19 22:00 03/18/19 06:07 Prosource No Carb Liquid Pkt PO Not Given TID CHANTELL Apixaban 2.5 mg 02/21/19 22:00 03/18/19 11:00 Eliquis - PO 2.5 mg BID CHANTELL Administration Atorvastatin Calcium 20 mg 02/21/19 22:00 03/17/19 21:32 Lipitor - PO 20 mg HS CHANTELL Administration Collagenase 1 applic 02/22/19 10:00 03/18/19 10:47 Santyl - TP Not Given DAILY CHANTELL Protocol Escitalopram Oxalate 10 mg 02/22/19 10:00 03/18/19 10:05 Lexapro - PO 10 mg DAILY CHANTELL Administration Hydrocortisone Sodium Succinate 100 mg 03/11/19 11:00 03/18/19 10:03 Solu-Cortef - IVPB 100 mg Q8H-IV CHANTELL Administration Fentanyl 500 mcg/ Dextrose 100 mls @ 1 mls/hr 03/11/19 00:45 03/18/19 08:43 IVPB 25 mcg/hr TITR CHANTELL 5 mls/hr Administration 5 MCG/HR Norepinephrine Bitartrate 8, 500 mls @ 18.75 mls/hr 03/11/19 05:58 03/18/19 05:52 000 mcg/ Dextrose IV 16 mcg/min ASDIR CHANTELL 60 mls/hr Administration Protocol 5 MCG/MIN Vasopressin 50 units/ Sodium 100 mls @ 4 mls/hr 03/11/19 06:30 03/17/19 17:28 Chloride IVPB 2 units/hr ASDIR CHANTELL 4 mls/hr Titration Protocol 2 UNITS/HR Meropenem 500 mg/ Dextrose 100 mls @ 200 mls/hr 03/11/19 10:00 03/18/19 11:00 IVPB 200 mls/hr DAILY CHANTELL Administration Insulin Aspart 1 vial 03/13/19 12:00 03/18/19 12:17 Novolog Vial Sliding Scale - SQ 2 units Q6HPO CHANTELL Administration Protocol Midodrine 10 mg 03/02/19 14:00 03/18/19 10:04 Proamatine - PO 10 mg TID-MID CHANTELL Administration Multivitamins/Minerals/Vitamin C 1 tab 02/22/19 10:00 03/18/19 10:04 Tab-A-Vit - PO 1 tab DAILY CHANTELL Administration Pantoprazole Sodium 40 mg 03/14/19 22:00 03/18/19 10:03 Protonix Iv IVPUSH 40 mg BID CHANTELL Administration Tamsulosin HCl 0.4 mg 02/21/19 22:00 03/17/19 21:27 Flomax - PO 0.4 mg HS CHANTELL Administration Impression 1. ESRD 2. gangrene 3. DM 4. hyperlipidemia 5. HTN 6. gout 7. proteinuria 8. hypotension 9. sepsis 10. resp failure 11. GI bleed Plan - next HD tomorrow - cont ICU management - vent support - feeds as tolerated - prognosis is poor - replace briannates - 3 k bath on hd
--- NOTE | 2019-03-18 15:35 | PROC ---
Central Line Insertion Indication: Sepsis, Vasopressor Risks and Benefits Explained: Yes (brother Koffi gives consent) Consent on Chart: Yes Central Line: Triple Lumen Catheter Anesthesia: other (on fentanyl drip) Sterile Technique: Yes Ultrasound Guided Assistance: Yes Position: Left Internal Jugular Post Insertion: Yes: Bilateral Breath Sounds, Chest X-Ray Ordered Sterile Dressing Applied: Yes
--- NOTE | 2019-03-18 15:45 | PN ---
Physical Exam: SUBJECTIVE: Patient seen and examined at bedside Pt continues to be intubated and requires pressers No overnight events. OBJECTIVE: Vital Signs Period Temp Pulse Resp BP Sys/Zamorano Pulse Ox Last 24 Hr 97.4 F-97.6 F 79-105 18-25 101-126/41-72 99-99 GENERAL: The patient is intubated and sedated. No response to noxious stimuli HEAD: Normal with no signs of trauma. EYES: PERRL, extraocular movements intact, sclera anicteric, conjunctiva clear. No ptosis. ENT: Ears normal, nares patent, oropharynx clear without exudates, moist mucous membranes. NECK: Trachea midline, full range of motion, supple. LUNGS: Breath sounds equal, clear to auscultation bilaterally, no wheezes, no crackles, no accessory muscle use. HEART: Regular rate and rhythm, S1, S2 without murmur, rub or gallop. ABDOMEN: Soft, nontender, nondistended, normoactive bowel sounds, no guarding, no rebound, no hepatosplenomegaly, no masses. EXTREMITIES: bilateral gangrene lower ext down to the tendon on the left with unstageble sacral ulcer NEUROLOGICAL: Cranial nerves II through XII grossly intact. Follows basic commands PSYCH: Normal mood, normal affect. SKIN: bilateral gangrene lower ext down to the tendon on the left with purulent foul smelling discharge. Unstageble sacral ulcer Laboratory Results - last 24 hr 03/14/19 03/17/19 03/18/19 12:00 17:33 03:02 WBC RBC Hgb Hct MCV MCH MCHC RDW Plt Count MPV Absolute Neuts (auto) Neutrophils % Neutrophils % (Manual) Band Neutrophils % Lymphocytes % Lymphocytes % (Manual) Monocytes % Monocytes % (Manual) Eosinophils % Eosinophils % (Manual) Basophils % Basophils % (Manual) Myelocytes % (Man) Promyelocytes % (Man) Blast Cells % (Manual) Nucleated RBC % Metamyelocytes Hypochromia Platelet Estimate Platelet Comment Polychromasia Poikilocytosis Anisocytosis Microcytosis Macrocytosis Target Cells Sodium Potassium Chloride Carbon Dioxide Anion Gap BUN Creatinine Est GFR (CKD-EPI)AfAm Est GFR (CKD-EPI)NonAf POC Glucometer 226 206 Random Glucose Calcium Phosphorus Magnesium Total Bilirubin AST ALT Alkaline Phosphatase Total Protein Albumin Blood Type A POSITIVE Antibody Screen Negative Crossmatch See Detail 03/18/19 03/18/19 03/18/19 05:35 05:35 05:38 WBC 13.5 H RBC 3.03 L Hgb 9.0 L Hct 27.8 L MCV 91.8 MCH 29.6 MCHC 32.2 RDW 19.0 H Plt Count 144 MPV 11.6 H Absolute Neuts (auto) 12.4 H Neutrophils % 91.9 H Neutrophils % (Manual) 89.0 H Band Neutrophils % 2.0 Lymphocytes % 7.6 L Lymphocytes % (Manual) 8.0 D Monocytes % 0.2 L Monocytes % (Manual) 1 L Eosinophils % 0.0 Eosinophils % (Manual) 0.0 Basophils % 0.3 Basophils % (Manual) 0.0 Myelocytes % (Man) 0 Promyelocytes % (Man) 0 Blast Cells % (Manual) 0 Nucleated RBC % 0 Metamyelocytes 0 D Hypochromia 0 Platelet Estimate Normal Platelet Comment Present Polychromasia 0 Poikilocytosis 0 Anisocytosis 2+ Microcytosis 1+ Macrocytosis 1+ Target Cells 1+ Sodium 134 L Potassium 3.2 L Chloride 98 Carbon Dioxide 27 Anion Gap 9 BUN 30.1 H Creatinine 2.1 H Est GFR (CKD-EPI)AfAm 34.89 Est GFR (CKD-EPI)NonAf 30.10 POC Glucometer 177 Random Glucose 187 H Calcium 6.6 L* Phosphorus 2.5 Magnesium 1.9 Total Bilirubin 2.4 H AST 49 H ALT 16 Alkaline Phosphatase 411 H Total Protein 4.5 L Albumin 1.1 L Blood Type Antibody Screen Crossmatch 03/18/19 11:58 WBC RBC Hgb Hct MCV MCH MCHC RDW Plt Count MPV Absolute Neuts (auto) Neutrophils % Neutrophils % (Manual) Band Neutrophils % Lymphocytes % Lymphocytes % (Manual) Monocytes % Monocytes % (Manual) Eosinophils % Eosinophils % (Manual) Basophils % Basophils % (Manual) Myelocytes % (Man) Promyelocytes % (Man) Blast Cells % (Manual) Nucleated RBC % Metamyelocytes Hypochromia Platelet Estimate Platelet Comment Polychromasia Poikilocytosis Anisocytosis Microcytosis Macrocytosis Target Cells Sodium Potassium Chloride Carbon Dioxide Anion Gap BUN Creatinine Est GFR (CKD-EPI)AfAm Est GFR (CKD-EPI)NonAf POC Glucometer 176 Random Glucose Calcium Phosphorus Magnesium Total Bilirubin AST ALT Alkaline Phosphatase Total Protein Albumin Blood Type Antibody Screen Crossmatch Active Medications Generic Name Dose Route Start Last Admin Trade Name Kassandra PRN Reason Stop Dose Admin Acetaminophen 1,000 mg 03/11/19 04:18 03/12/19 01:54 Ofirmev Injection - IVPB 1,000 mg Q6H PRN Administration FEVER Amino Acids 30 ml 02/21/19 22:00 03/18/19 06:07 Prosource No Carb Liquid Pkt PO Not Given TID CHANTELL Apixaban 2.5 mg 02/21/19 22:00 03/18/19 11:00 Eliquis - PO 2.5 mg BID CHANTELL Administration Atorvastatin Calcium 20 mg 02/21/19 22:00 03/17/19 21:32 Lipitor - PO 20 mg HS CHANTELL Administration Collagenase 1 applic 02/22/19 10:00 03/18/19 10:47 Santyl - TP Not Given DAILY CHANTELL Protocol Epoetin Jose 12,000 unit 03/19/19 13:48 Epogen - IVPUSH 03/19/19 13:49 ONCE ONE Escitalopram Oxalate 10 mg 02/22/19 10:00 03/18/19 10:05 Lexapro - PO 10 mg DAILY CHANTELL Administration Hydrocortisone Sodium Succinate 100 mg 03/11/19 11:00 03/18/19 10:03 Solu-Cortef - IVPB 100 mg Q8H-IV CHANTELL Administration Fentanyl 500 mcg/ Dextrose 100 mls @ 1 mls/hr 03/11/19 00:45 03/18/19 08:43 IVPB 25 mcg/hr TITR CHANTELL 5 mls/hr Administration 5 MCG/HR Norepinephrine Bitartrate 8, 500 mls @ 18.75 mls/hr 03/11/19 05:58 03/18/19 05:52 000 mcg/ Dextrose IV 16 mcg/min ASDIR CHANTELL 60 mls/hr Administration Protocol 5 MCG/MIN Vasopressin 50 units/ Sodium 100 mls @ 4 mls/hr 03/11/19 06:30 03/17/19 17:28 Chloride IVPB 2 units/hr ASDIR CHANTELL 4 mls/hr Titration Protocol 2 UNITS/HR Meropenem 500 mg/ Dextrose 100 mls @ 200 mls/hr 03/11/19 10:00 03/18/19 11:00 IVPB 200 mls/hr DAILY CHANTELL Administration Sodium Chloride 250 mls @ 3,000 mls/hr 03/18/19 13:48 Normal Saline - IV 03/19/19 13:48 PRN PRN Hypotension during Dialysis Insulin Aspart 1 vial 03/13/19 12:00 03/18/19 12:17 Novolog Vial Sliding Scale - SQ 2 units Q6HPO CHANTELL Administration Protocol Midodrine 10 mg 03/02/19 14:00 03/18/19 10:04 Proamatine - PO 10 mg TID-MID CHANTELL Administration Multivitamins/Minerals/Vitamin C 1 tab 02/22/19 10:00 03/18/19 10:04 Tab-A-Vit - PO 1 tab DAILY CHANTELL Administration Pantoprazole Sodium 40 mg 03/14/19 22:00 03/18/19 10:03 Protonix Iv IVPUSH 40 mg BID CHANTELL Administration Tamsulosin HCl 0.4 mg 02/21/19 22:00 03/17/19 21:27 Flomax - PO 0.4 mg HS CHANTELL Administration ASSESSMENT/PLAN: attempted to contact pt daughter for changing central line consent, no answer, message placed on voicemail, no return call. Called pts brother Koffi who agrees to have new central line placed. Pt continues to require pressers, reduced Vasop from 6 to 2, Levo 8. Sputum and blood cultures positive for many resistant organisms. No changes required to vent settings, unlikely PNA or new resp pathology. Will continue to treat with stated antibiotics as per ID Pt reported to have coffee ground emesis as per nurse, CBC repeated, 6.9 hemoglobin noted. Will transfuse 2 units PRBC and HD today as per nephro. No GI consult due to no interventions possible at pts current state of health. #septic shock 2/2 DM gangrenous B/L feet infx, Infected sacral decub and scrotal ulcer, and GN bacteremia (proteus, prevotella) - requiring ICU and pressors. Now w/ hypoxic respiratory failure possibly 2/2 developing aspiration PNA (aspirated over the weekend) requiring intubation/sedation. CXR 03/11 shows questionable infiltrate L base. +Leukocytosis. afebrile now for >24hr -old cx with E coli, ESBL, MRSA, and VRE. -contact isolation for MDRO -s/p Vanc and Zosyn in the ED, Gentamicin x1, Meropenem x2 in ICU -Bcx 02/21/19 growing GN cher - proteus and prevotella -ucx neg -wound cx E coli, morganella -Bcx 02/23/19 neg -03/11/19 sputum cx MRSA, pseudomonas A,ecoli esbl, acinetobacter ; bcx ecoli esbl bacteremia. -ID consulted, Rangel -lactic acid resolved -palliative care consulted -s/p CTX 2g/flagyl, c/w Meropenem day #20 total abx, ID recs appreciated. -s/p vanc and gentamicin x1 yesterday per ID -Aspiration precautions. -c/w Levophed 8, vasopressin 6, stress steroids. Titrate pressors to keep MAP>65 -fentanyl 25mcg for comfort and sedation -vascular surgery consulted, Dr harry, for wound care. amputation indicated, but family not amenable. cont GOC #Seizure-like myoclonus 03/12/19 - noted overnight. resolved w/ ativan 1mg and loaded w/ keppra. see Dr Overton note for further details c/w keppra 250 bid #ESRD on HD (MWF) -nephro consulted (Dr. Henriquez) -HD as per nephro - due to recent cardiac irregular rhythms, nephro monitoring K closely and will continue to reassess #Acute on chronic anemia likely 2/2 ESRD -monitor H/H #Severe protein calorie malnutrition -albumin 1.1, prealbumin 3.5 -thin appearing, decreased muscle mass and fat -decreased overall PO intake -Magic cup, Ensure pudding for increased density of nutritional intake. Now on NGT while intubated #COPD -keep SpO2>90% -Duonebs q6h PRN #Dm ISS BGM ACHS #H/o hypotension : c/w home midodrine monitor vitals # h/o afib c/w elequis 2.5 bid #FEN -Not on any standing fluids -replete prn -NGT on tube feeds #Prophylaxis -Eliquis 2.5mg BID -Protonix IV while on AC and pressors -bacid Visit type - Emergency Visit Emergency Visit: No - New Patient This patient is new to me today: No - Critical Care Critical Care patient: Yes Total Critical Care Time (in minutes): 36 Critical Care Statement: The care of this patient involved high complexity decision making to prevent further life threatening deterioration of the patient 's condition and/or to evaluate & treat vital organ system(s) failure or risk of failure.
--- NOTE | 2019-03-18 20:22 | PN ---
Teaching Attending Note Name of Resident: Mathew Adorno ATTENDING PHYSICIAN STATEMENT I saw and evaluated the patient. I reviewed the resident's note and discussed the case with the resident. I agree with the resident's findings and plan as documented. SUBJECTIVE: Patient is in ICU continues to be on pressers. OBJECTIVE: Vital Signs Temperature 97.4 F L 03/18/19 17:00 Pulse Rate 89 03/18/19 18:22 Respiratory Rate 23 H 03/18/19 18:15 Blood Pressure 122/64 03/18/19 18:22 O2 Sat by Pulse Oximetry (%) 100 03/18/19 18:18 GENERAL: The patient is intubated , sedated. HEAD: Normal with no signs of trauma. EYES: extraocular movements intact, sclera anicteric, ENT: intubated and sedated . NECK: Trachea midline, positive for ET-tube LUNGS: intubated , sedated . HEART: RRR , S1, S2 without murmur, rub or gallop. ABDOMEN: Soft, NT, ND, BS positive, no guarding, no rebound, no hepatosplenomegaly, no masses. EXTREMITIES: gangrenous lower extremities SKIN: Warm. CBCD WBC 13.5 K/mm3 (4.0-10.0) H 03/18/19 05:35 RBC 3.03 M/mm3 (4.00-5.60) L 03/18/19 05:35 Hgb 9.0 GM/dL (11.7-16.9) L 03/18/19 05:35 Hct 27.8 % (35.4-49) L 03/18/19 05:35 MCV 91.8 fl (80-96) 03/18/19 05:35 MCHC 32.2 g/dl (32.0-35.9) 03/18/19 05:35 RDW 19.0 % (11.9-15.9) H 03/18/19 05:35 Plt Count 144 K/MM3 (134-434) 03/18/19 05:35 MPV 11.6 fl (7.5-11.1) H 03/18/19 05:35 CMP Sodium 134 mmol/L (136-145) L 03/18/19 05:35 Potassium 3.2 mmol/L (3.5-5.1) L 03/18/19 05:35 Chloride 98 mmol/L (98-107) 03/18/19 05:35 Carbon Dioxide 27 mmol/L (21-32) 03/18/19 05:35 Anion Gap 9 MMOL/L (8-16) 03/18/19 05:35 BUN 30.1 mg/dL (7-18) H 03/18/19 05:35 Creatinine 2.1 mg/dL (0.55-1.3) H 03/18/19 05:35 Random Glucose 187 mg/dL (74-106) H 03/18/19 05:35 Calcium 6.6 mg/dL (8.5-10.1) L* 03/18/19 05:35 Total Bilirubin 2.4 mg/dL (0.2-1) H 03/18/19 05:35 AST 49 U/L (15-37) H 03/18/19 05:35 ALT 16 U/L (13-61) 03/18/19 05:35 Alkaline Phosphatase 411 U/L (45-117) H 03/18/19 05:35 Total Protein 4.5 g/dl (6.4-8.2) L 03/18/19 05:35 Albumin 1.1 g/dl (3.4-5.0) L 03/18/19 05:35 CARDIAC ENZYMES Troponin I < 0.02 ng/ml (0.00-0.05) 02/21/19 15:10 Current Medications Generic Name Dose Route Start Last Admin Trade Name Freq PRN Reason Stop Dose Admin Acetaminophen 1,000 mg 03/11/19 04:18 03/12/19 01:54 Ofirmev Injection - IVPB 1,000 mg Q6H PRN Administration FEVER Amino Acids 30 ml 02/21/19 22:00 03/18/19 15:41 Prosource No Carb Liquid Pkt PO 30 ml TID CHANTELL Administration Apixaban 2.5 mg 02/21/19 22:00 03/18/19 11:00 Eliquis - PO 2.5 mg BID CHANTELL Administration Atorvastatin Calcium 20 mg 02/21/19 22:00 03/17/19 21:32 Lipitor - PO 20 mg HS CHANTELL Administration Collagenase 1 applic 02/22/19 10:00 03/18/19 10:47 Santyl - TP Not Given DAILY CHANTELL Protocol Epoetin Jose 12,000 unit 03/19/19 13:48 Epogen - IVPUSH 03/19/19 13:49 ONCE ONE Escitalopram Oxalate 10 mg 02/22/19 10:00 03/18/19 10:05 Lexapro - PO 10 mg DAILY CHANTELL Administration Hydrocortisone Sodium Succinate 100 mg 03/11/19 11:00 03/18/19 10:03 Solu-Cortef - IVPB 100 mg Q8H-IV CHANTELL Administration Fentanyl 500 mcg/ Dextrose 100 mls @ 1 mls/hr 03/11/19 00:45 03/18/19 08:43 IVPB 25 mcg/hr TITR CHANTELL 5 mls/hr Administration 5 MCG/HR Norepinephrine Bitartrate 8, 500 mls @ 18.75 mls/hr 03/11/19 05:58 03/18/19 05:52 000 mcg/ Dextrose IV 16 mcg/min ASDIR CHANTELL 60 mls/hr Administration Protocol 5 MCG/MIN Vasopressin 50 units/ Sodium 100 mls @ 4 mls/hr 03/11/19 06:30 03/18/19 18:22 Chloride IVPB 0 units/hr ASDIR CHANTELL 0 mls/hr Titration Protocol 2 UNITS/HR Meropenem 500 mg/ Dextrose 100 mls @ 200 mls/hr 03/11/19 10:00 03/18/19 11:00 IVPB 200 mls/hr DAILY CHANTELL Administration Sodium Chloride 250 mls @ 3,000 mls/hr 03/18/19 13:48 Normal Saline - IV 03/19/19 13:48 PRN PRN Hypotension during Dialysis Potassium Chloride 10 meq in 100 mls @ 100 mls/hr 03/18/19 20:30 Potassium Chloride 10 Meq Premix Ivpb - IVPB 03/18/19 22:29 Q60M CHANTELL Insulin Aspart 1 vial 03/13/19 12:00 03/18/19 17:46 Novolog Vial Sliding Scale - SQ 2 units Q6HPO CHANTELL Administration Protocol Midodrine 10 mg 03/02/19 14:00 03/18/19 17:40 Proamatine - PO 10 mg TID-MID CHANTELL Administration Multivitamins/Minerals/Vitamin C 1 tab 02/22/19 10:00 03/18/19 10:04 Tab-A-Vit - PO 1 tab DAILY CHANTELL Administration Pantoprazole Sodium 40 mg 03/14/19 22:00 03/18/19 10:03 Protonix Iv IVPUSH 40 mg BID CHANTELL Administration Tamsulosin HCl 0.4 mg 02/21/19 22:00 03/17/19 21:27 Flomax - PO 0.4 mg HS CHANTELL Administration Home Medications Medication Instructions Recorded RX: Albuterol 2.5/Ipratropium 0.5 1 amp NEB Q6H PRN #0 amp 07/12/17 [Duoneb -] RX: Allopurinol [Zyloprim -] 100 mg PO DAILY tablet 07/12/17 RX: Atorvastatin Ca [Lipitor] 20 mg PO HS tablet 07/12/17 RX: Collagenase Clostridium Hist. 1 applic TP DAILY tube 09/06/18 [Santyl -] RX: Albuterol Sulfate [Proair Hfa] 2 puff IH Q6H PRN 10/29/18 RX: Escitalopram Oxalate [Lexapro 10 mg PO DAILY 10/29/18 -] RX: Folic Acid/Vit B Complex and C 1 each PO DAILY 10/29/18 [Dialyvite Tablet] RX: Midodrine HCl 10 mg PO MOWEFR 10/29/18 RX: Sevelamer Carbonate [Renvela -] 1,600 mg PO TID 10/29/18 RX: Tamsulosin HCl [Flomax] 0.4 mg PO HS 10/29/18 RX: Insulin Sliding Scale [Novolog 1 vial SQ TIDAC #1 vial 11/17/18 Vial Sliding Scale -] RX: Apixaban [Eliquis -] 5 mg PO BID #30 tablet MDD 2 11/19/18 RX: Collagenase Clostridium Hist. 1 applic TP DAILY #1 tube 01/17/19 [Santyl -] Amoxicillin/Potassium Clav 1 each PO DAILY #7 tablet 02/06/19 [Augmentin 500-125 Tablet] Megestrol Acetate Oral Susp 400 mg PO DAILY #20 cup 02/06/19 [Megace Liquid -] Protein Supplement [Prosource] 275 gm PO TID #60 powder 02/06/19 RX: Lactobacillus Acidophilus 1 tab PO DAILY #60 tab 02/19/19 [Bacid -] RX: Midodrine HCl [Proamatine -] 5 mg PO SuTuThSa #60 tablet 02/19/19 RX: traMADol HCL [Ultram -] 50 mg PO Q6H PRN #60 tablet MDD 4 02/19/19 Microbiology 03/11/19 05:30 Blood - Peripheral Venous Blood Culture - Final NO GROWTH AFTER 5 DAYS INCUBATION 03/11/19 10:15 Sputum - Endotrachea Suction/Ventilator Gram Stain - Final 03/11/19 10:15 Sputum - Endotrachea Suction/Ventilator Sputum Culture - Final S Aureus Escherichia Coli Esbl Limnologist Acinetobacter Baumannii/Haemol Pseudomonas Aeruginosa 03/11/19 06:45 Blood - Peripheral Venous Blood Culture - Final Escherichia Coli Esbl Limnologist 02/23/19 11:50 Blood - Peripheral Venous Blood Culture - Final NO GROWTH AFTER 5 DAYS INCUBATION 02/23/19 11:50 Blood - Peripheral Venous Blood Culture - Final NO GROWTH AFTER 5 DAYS INCUBATION 02/21/19 13:16 Blood - Peripheral Venous Blood Culture - Final Proteus Mirabilis Prevotella Melaninogenica 02/21/19 16:30 Foot - Left Heel Gram Stain - Final 02/21/19 16:30 Foot - Left Heel Wound Culture - Final Escherichia Coli Esbl Limnologist Morganella Morganii 02/21/19 15:40 Blood - Peripheral Venous Blood Culture - Final Proteus Mirabilis 02/21/19 14:50 Urine - Urine - Catheterized Urine Culture - Final NO GROWTH OBTAINED ASSESSMENT AND PLAN: Patient is a 73 y/o man with h/o dementia, CVA, DM, COPD, ESRD, gout, HTN, HLP, recent admission 01/31-02/19 during which he was treated for sepsis due to infected b/l feet ulcers/gangrene. He was sent form NH due to poor po intake, and non healing wounds # Acute hypoxic respiratory failure s/p intubation in ICU vent management and sedation as per ICU team continue # Septic shock due GNR bacteremia ecoli esbl bacteremia due to gangrenous infection of LEs cont meropenem ,discussed with ID, on 2 pressors continue prssors being tapered # Infected sacral decub and scrotal ulcer continue current management # ESRD on HD per schedule , management per nephro # DM SSI with coverage # anemia # Acute hyponatremia 130--128-->138-->134 improved , on NS continue # Hx of BPH: on Flomax # Electrolytes: replete as needed. GI Px: PPI DVT px; Eliquis
[2019-03-18] MEDS: ATORVASTATIN CA 20 MG TABLET (FP) PO SCH (21:07)
[2019-03-18] MEDS: KCL 10 MEQ IVPB 10 MEQ/100 ML INFUS.BAG IVPB SCH ×2 (21:07→22:51)
[2019-03-18] MEDS: TAMSULOSIN HCL 0.4 MG CAP PO SCH (21:07)
[2019-03-19] MEDS: INSULIN SLIDING SCALE (NOVOLOG) 1 VIAL SQ SCH ×3 (00:20→18:31)
[2019-03-19] MEDS: HYDROCORTISONE SOD SUCCINATE 100 MG/2 ML VIAL IVPB SCH ×4 (03:42→18:31)
[2019-03-19] MEDS ORDERED: fentaNYL CITRATE 250 MCG/5 ML VIAL ONE (04:10)
[2019-03-19 06:07] LABS: BASO % 0.3 % (0-2.0); HEMATOCRIT 28.2 % (35.4-49); HEMOGLOBIN 9.1 GM/dL (11.7-16.9); LYMPH % 5.2 % (8-40); MCH 29.6 pg (25.7-33.7); MCHC 32.2 g/dl (32.0-35.9); MEAN CELL VOLUME 91.8 fl (80-96); MEAN PLT VOLUME 11.7 fl (7.5-11.1); MONO % 0.5 % (3.8-10.2); PLATELET COUNT 168 K/MM3 (134-434); RBC 3.07 M/mm3 (4.00-5.60); WHITE BLOOD COUNT 16.5 K/mm3 (4.0-10.0)
[2019-03-19] MEDS: AMINO ACIDS/PROTEIN HYDROLYS 30 ML LIQUID.PKT PO SCH ×3 (06:34→21:20)
[2019-03-19 06:48] LABS: BILIRUBIN,TOTAL 2.3 mg/dL (0.2-1); BLOOD UREA NITROGEN 34.8 mg/dL (7-18); CREATININE 2.4 mg/dL (0.55-1.3); MAGNESIUM 1.9 mg/dL (1.8-2.4); PHOSPHOROUS 3.2 mg/dL (2.5-4.9); POTASSIUM 3.7 mmol/L (3.5-5.1); TOT PROT 4.7 g/dl (6.4-8.2)
[2019-03-19 06:51] LABS: CALCIUM 6.7 mg/dL (8.5-10.1)
[2019-03-19] MEDS ORDERED: PT OWN MED DRAWER 7, Y5N ONE (08:11)
[2019-03-19] MEDS ORDERED: NOREPINEPHRINE BITARTRATE 4 MG/4 ML ML IV ONE (08:50)
[2019-03-19] MEDS: MIDODRINE HCL 5 MG TABLET PO SCH ×4 (10:02→18:31)
[2019-03-19] MEDS: MEROPENEM 500 MG in DEXTROSE 5%-WATER 100 ML IVPB SCH (10:02)
[2019-03-19] MEDS: NOREPINEPHRINE BITARTRATE 8,000 MCG in DEXTROSE 5%-WATER - 492 ML IV SCH (10:03)
[2019-03-19] MEDS: PANTOPRAZOLE SODIUM 40 MG VIAL IVPUSH SCH ×2 (10:04→21:20)
[2019-03-19] MEDS: APIXABAN 2.5 MG TABLET PO SCH ×2 (10:04→21:17)
[2019-03-19] MEDS: COLLAGENASE CLOSTRIDIUM HIST. 30 GRAMS TUBE TP SCH (10:04)
[2019-03-19] MEDS: ESCITALOPRAM OXALATE 10 MG TABLET (FP) PO SCH (10:04)
[2019-03-19] MEDS: MULTIVITAMINS (DAILY MVI) TABLET (FP) PO SCH (10:04)
--- NOTE | 2019-03-19 12:40 | PN ---
Physical Exam: SUBJECTIVE: Patient seen and examined at ebd side in ICU , still intubated sedated on max pressors and fentanyl for sedation , maintaining bp , no acute events over night. OBJECTIVE: Vital Signs Period Temp Pulse Resp BP Sys/Zamorano Pulse Ox Last 24 Hr 97.3 F-97.6 F 79-123 15-29 98-122/49-66 99-100 GENERAL: The patient is intubated and sedated. No response to noxious stimuli HEAD: NC/AT EYES: PERRLA, , sclera anicteric, ENT: intubated NECK: Trachea midline, LUNGS: decrease breath sounds at the bases HEART: Regular rate and rhythm, S1, S2 without murmur, rub or gallop. ABDOMEN: Soft, ND, NT , normoactive bowel sounds, EXTREMITIES: bilateral gangrene lower ext down to the tendon on the left with unstageble sacral ulcer NEUROLOGICAL:intubated sedated , OSMAR, SKIN: bilateral gangrene lower ext down to the tendon on the left with purulent foul smelling discharge. Unstageble sacral ulcer Laboratory Results - last 24 hr 03/18/19 03/19/19 03/19/19 17:36 00:04 05:10 WBC 16.5 H RBC 3.07 L Hgb 9.1 L Hct 28.2 L MCV 91.8 MCH 29.6 MCHC 32.2 RDW 19.0 H Plt Count 168 MPV 11.7 H Absolute Neuts (auto) 15.5 H Neutrophils % 94.0 H Lymphocytes % 5.2 L D Monocytes % 0.5 L D Eosinophils % 0.0 Basophils % 0.3 Nucleated RBC % 0 Sodium Potassium Chloride Carbon Dioxide Anion Gap BUN Creatinine Est GFR (CKD-EPI)AfAm Est GFR (CKD-EPI)NonAf POC Glucometer 177 153 Random Glucose Calcium Phosphorus Magnesium Total Bilirubin AST ALT Alkaline Phosphatase Total Protein Albumin 03/19/19 05:10 WBC RBC Hgb Hct MCV MCH MCHC RDW Plt Count MPV Absolute Neuts (auto) Neutrophils % Lymphocytes % Monocytes % Eosinophils % Basophils % Nucleated RBC % Sodium 131 L Potassium 3.7 Chloride 95 L Carbon Dioxide 26 Anion Gap 10 BUN 34.8 H Creatinine 2.4 H Est GFR (CKD-EPI)AfAm 29.69 Est GFR (CKD-EPI)NonAf 25.61 POC Glucometer Random Glucose 173 H Calcium 6.7 L* Phosphorus 3.2 Magnesium 1.9 Total Bilirubin 2.3 H AST 57 H ALT 18 Alkaline Phosphatase 454 H Total Protein 4.7 L Albumin 1.0 L Active Medications Generic Name Dose Route Start Last Admin Trade Name Jaq PRN Reason Stop Dose Admin Acetaminophen 1,000 mg 03/11/19 04:18 03/12/19 01:54 Ofirmev Injection - IVPB 1,000 mg Q6H PRN Administration FEVER Amino Acids 30 ml 02/21/19 22:00 03/19/19 06:34 Prosource No Carb Liquid Pkt PO 30 ml TID CHANTELL Administration Apixaban 2.5 mg 02/21/19 22:00 03/19/19 10:04 Eliquis - PO 2.5 mg BID CHANTELL Administration Atorvastatin Calcium 20 mg 02/21/19 22:00 03/18/19 21:07 Lipitor - PO 20 mg HS CHANTELL Administration Collagenase 1 applic 02/22/19 10:00 03/19/19 10:04 Santyl - TP 1 applic DAILY CHANTELL Administration Protocol Epoetin Jose 12,000 unit 03/19/19 13:48 Epogen - IVPUSH 03/19/19 13:49 ONCE ONE Escitalopram Oxalate 10 mg 02/22/19 10:00 03/19/19 10:04 Lexapro - PO 10 mg DAILY CHANTELL Administration Hydrocortisone Sodium Succinate 100 mg 03/11/19 11:00 03/19/19 10:03 Solu-Cortef - IVPB 100 mg Q8H-IV CHANTELL Administration Fentanyl 500 mcg/ Dextrose 100 mls @ 1 mls/hr 03/11/19 00:45 03/19/19 06:29 IVPB 25 mcg/hr TITR CHANTELL 5 mls/hr Titration 5 MCG/HR Norepinephrine Bitartrate 8, 500 mls @ 18.75 mls/hr 03/11/19 05:58 03/19/19 10:03 000 mcg/ Dextrose IV 30 mcg/min ASDIR CHANTELL 112.5 mls/hr Administration Protocol 5 MCG/MIN Vasopressin 50 units/ Sodium 100 mls @ 4 mls/hr 03/11/19 06:30 03/18/19 18:22 Chloride IVPB 0 units/hr ASDIR CHANTELL 0 mls/hr Titration Protocol 2 UNITS/HR Meropenem 500 mg/ Dextrose 100 mls @ 200 mls/hr 03/11/19 10:00 03/19/19 10:02 IVPB 200 mls/hr DAILY CHANTELL Administration Sodium Chloride 250 mls @ 3,000 mls/hr 03/18/19 13:48 Normal Saline - IV 03/19/19 13:48 PRN PRN Hypotension during Dialysis Insulin Aspart 1 vial 03/13/19 12:00 03/19/19 06:52 Novolog Vial Sliding Scale - SQ 2 units Q6HPO CHANTELL Administration Protocol Midodrine 10 mg 03/02/19 14:00 03/19/19 10:03 Proamatine - PO 10 mg TID-MID CHANTELL Administration Multivitamins/Minerals/Vitamin C 1 tab 02/22/19 10:00 03/19/19 10:04 Tab-A-Vit - PO 1 tab DAILY CHANTELL Administration Pantoprazole Sodium 40 mg 03/14/19 22:00 03/19/19 10:04 Protonix Iv IVPUSH 40 mg BID CHANTELL Administration Tamsulosin HCl 0.4 mg 02/21/19 22:00 03/18/19 21:07 Flomax - PO 0.4 mg HS CHANTELL Administration CBC, BMP 03/19/19 05:10 03/19/19 05:10 ASSESSMENT/PLAN: 73 yo M PMH dementia, CVA, DM, COPD, ESRD, gout, HTN, HLP, recent admission 01/31- 02/19 during which he was treated for sepsis due to infected b/l feet ulcers/ gangrene. He was sent form NH due to poor po intake, and worsening of ulcers. Now in septic shock 2/2 DM gangrenous B/L feet infx, Infected sacral decub and scrotal ulcer, and GN bacteremia , requiring ICU and pressors #Acute Hypoxic Respiratory Failure on ventilators , keepo o2 sat > 90 % #Pneumonia suspect Aspiration daily cxr , cont merropenem per ID , aspiration precautions , #ESBL E coli Bacteremia cont abx meropenem , cont solu-medrol 100 Q8hr #Septic Shock on pressers #Bilateral Feet Gangrene vascular on board not able to cosent as family is not responding #Infected Decubitus Ulcers cont Abx per ID on meropenem , wound care collagenase santyl #DIOGENES on CKD , ESRD on HD # Anemia : on epogen per renal with HD #DM BGM , ISS , hold oral agents #HTN: on pressors due to septic shock , midodrine #Hyperlipidemia: cont Atorvastatin 20 HS #h/o CVA cont ASA #PBH on flomax cont # DVTS proph scds , on eliquis 2.5 BID # GI proph : PPI 40 BID # Monitor lytes and replinished as needed # full code , pending ethics comity and family decision # very poor prognosis Visit type - Emergency Visit Emergency Visit: Yes ED Registration Date: 02/21/19 Care time: The patient presented to the Emergency Department on the above date and was hospitalized for further evaluation of their emergent condition. - New Patient This patient is new to me today: No - Critical Care Critical Care patient: Yes Total Critical Care Time (in minutes): 40 Critical Care Statement: The care of this patient involved high complexity decision making to prevent further life threatening deterioration of the patient 's condition and/or to evaluate & treat vital organ system(s) failure or risk of failure. - Discharge Referral Referred to [facility] Med P.C[facility] No
--- NOTE | 2019-03-19 12:46 | PN ---
Teaching Attending Note Name of Resident: Gualberto Eagle ATTENDING PHYSICIAN STATEMENT I saw and evaluated the patient. I reviewed the resident's note and discussed the case with the resident. I agree with the resident's findings and plan as documented. SUBJECTIVE: Pt seen and examined in the ICU. Remained intubated, poorly responsive but with intact cough. Tolerated CPAP/PS with good RSBI and respiratory effort, subsequently extubated during rounds. OBJECTIVE: Vital Signs Period Temp Pulse Resp BP Sys/Zamorano Pulse Ox Last 24 Hr 97.3 F-97.6 F 79-123 15-29 98-122/49-66 99-100 Intake & Output 03/16/19 03/17/19 03/18/19 03/19/19 23:59 23:59 23:59 23:59 Intake Total 1449.8 1229.1 880 849 Output Total 0 2 1 Balance 1449.8 1227.1 879 849 Weight 75.523 kg 73.527 kg 76.459 kg 76.839 kg Gen: extubated Heart: RRR Lung: scattered rhonchi Abd: soft, nontender Ext: no edema CBC, BMP 03/19/19 05:10 03/19/19 05:10 Active Medications Acetaminophen (Ofirmev Injection -) 1,000 mg IVPB Q6H PRN PRN Reason: FEVER Last Admin: 03/12/19 01:54 Dose: 1,000 mg Amino Acids (Prosource No Carb Liquid Pkt) 30 ml PO TID [facility]ANTE[facility] Last Admin: 03/19/19 06:34 Dose: 30 ml Apixaban (Eliquis -) 2.5 mg PO BID CHANTE[facility] Last Admin: 03/19/19 10:04 Dose: 2.5 mg Atorvastatin Calcium (Lipitor -) 20 mg PO HS CHANTELL Last Admin: 03/18/19 21:07 Dose: 20 mg Collagenase (Santyl -) 1 applic TP DAILY [facility]; Protocol Last Admin: 03/19/19 10:04 Dose: 1 applic Epoetin Jose (Epogen -) 12,000 unit IVPUSH ONCE ONE Stop: 03/19/19 13:49 Escitalopram Oxalate (Lexapro -) 10 mg PO DAILY CHANTELL Last Admin: 03/19/19 10:04 Dose: 10 mg Hydrocortisone Sodium Succinate (Solu-Cortef -) 100 mg IVPB Q8H-IV [facility] Last Admin: 03/19/19 10:03 Dose: 100 mg Fentanyl 500 mcg/ Dextrose 100 mls @ 1 mls/hr IVPB TITR CHANTELL Last Titration: 03/19/19 06:29 Dose: 25 mcg/hr, 5 mls/hr Norepinephrine Bitartrate 8, (000 mcg/ Dextrose) 500 mls @ 18.75 mls/hr IV ASDIR CHANTE[facility]; Protocol Last Admin: 03/19/19 10:03 Dose: 30 mcg/min, 112.5 mls/hr Vasopressin 50 units/ Sodium (Chloride) 100 mls @ 4 mls/hr IVPB ASDIR [facility]ANTE[facility]; Protocol Last Titration: 03/18/19 18:22 Dose: 0 units/hr, 0 mls/hr Meropenem 500 mg/ Dextrose 100 mls @ 200 mls/hr IVPB DAILY CHANTELL Last Admin: 03/19/19 10:02 Dose: 200 mls/hr Sodium Chloride (Normal Saline -) 250 mls @ 3,000 mls/hr IV PRN PRN PRN Reason: Hypotension during Dialysis Stop: 03/19/19 13:48 Insulin Aspart (Novolog Vial Sliding Scale -) 1 vial SQ Q6HPO [facility]; Protocol Last Admin: 03/19/19 06:52 Dose: 2 units Midodrine (Proamatine -) 10 mg PO TID-MID CHANTE[facility] Last Admin: 03/19/19 10:03 Dose: 10 mg Multivitamins/Minerals/Vitamin C (Tab-A-Vit -) 1 tab PO DAILY CHANTELL Last Admin: 03/19/19 10:04 Dose: 1 tab Pantoprazole Sodium (Protonix Iv) 40 mg IVPUSH BID CHANTELL Last Admin: 03/19/19 10:04 Dose: 40 mg Tamsulosin HCl (Flomax -) 0.4 mg PO HS CHANTELL Last Admin: 03/18/19 21:07 Dose: 0.4 mg ASSESSMENT AND PLAN: Acute Hypoxic Respiratory Failure Pneumonia suspect Aspiration ESBL E coli Bacteremia Septic Shock Bilateral Feet Gangrene Infected Decubitus Ulcers ESRD on HD DM HTN Hyperlipidemia h/o CVA - continue antibiotics per ID - continue midodrine - taper pressors to maintain MAP >65 - monitor H/H - local wound care - HD per renal - aspiration precautions - DVT prophylaxis - continue efforts to discuss medical condition and prognosis with next of kin - given overall poor condition, current medical condition, and overall poor [facility] outcome, recommend palliative/comfort care - continue ICU monitoring critical care time spent in reviewing chart, evaluating patient and formulating plan 35 min
[2019-03-19 12:53] LABS: ANISOCYTOSIS 1+; MACROCYTOSIS 1+; PLATELET ESTIMATE NORMAL; TARGET CELLS 1+
--- NOTE | 2019-03-19 13:36 | PN ---
Teaching Attending Note Name of Resident: Maurizio Shoemaker ATTENDING PHYSICIAN STATEMENT I saw and evaluated the patient. I reviewed the resident's note and discussed the case with the resident. I agree with the resident's findings and plan as documented. SUBJECTIVE: Patient is in ICU, extubated now. OBJECTIVE: Vital Signs Temperature 97.3 F L 03/19/19 10:00 Pulse Rate 96 H 03/19/19 12:00 Respiratory Rate 29 H 03/19/19 12:00 Blood Pressure 117/60 03/19/19 12:00 O2 Sat by Pulse Oximetry (%) 99 03/19/19 11:40 GENERAL: The patient is extubated now. HEAD: Normal with no signs of trauma. EYES: extraocular movements intact, sclera anicteric, ENT: extubated NECK: Trachea midline LUNGS: extubated with decreased BS HEART: RRR , S1, S2 without murmur, rub or gallop. ABDOMEN: Soft, NT, ND, BS positive, no guarding, no rebound EXTREMITIES: gangrenous lower extremities Decubitus ulcer: infected sKIN: Warm. CBCD WBC 16.5 K/mm3 (4.0-10.0) H 03/19/19 05:10 RBC 3.07 M/mm3 (4.00-5.60) L 03/19/19 05:10 Hgb 9.1 GM/dL (11.7-16.9) L 03/19/19 05:10 Hct 28.2 % (35.4-49) L 03/19/19 05:10 MCV 91.8 fl (80-96) 03/19/19 05:10 MCHC 32.2 g/dl (32.0-35.9) 03/19/19 05:10 RDW 19.0 % (11.9-15.9) H 03/19/19 05:10 Plt Count 168 K/MM3 (134-434) 03/19/19 05:10 MPV 11.7 fl (7.5-11.1) H 03/19/19 05:10 CMP Sodium 131 mmol/L (136-145) L 03/19/19 05:10 Potassium 3.7 mmol/L (3.5-5.1) 03/19/19 05:10 Chloride 95 mmol/L (98-107) L 03/19/19 05:10 Carbon Dioxide 26 mmol/L (21-32) 03/19/19 05:10 Anion Gap 10 MMOL/L (8-16) 03/19/19 05:10 BUN 34.8 mg/dL (7-18) H 03/19/19 05:10 Creatinine 2.4 mg/dL (0.55-1.3) H 03/19/19 05:10 Random Glucose 173 mg/dL (74-106) H 03/19/19 05:10 Calcium 6.7 mg/dL (8.5-10.1) L* 03/19/19 05:10 Total Bilirubin 2.3 mg/dL (0.2-1) H 03/19/19 05:10 AST 57 U/L (15-37) H 03/19/19 05:10 ALT 18 U/L (13-61) 03/19/19 05:10 Alkaline Phosphatase 454 U/L (45-117) H 03/19/19 05:10 Total Protein 4.7 g/dl (6.4-8.2) L 03/19/19 05:10 Albumin 1.0 g/dl (3.4-5.0) L 03/19/19 05:10 CARDIAC ENZYMES Troponin I < 0.02 ng/ml (0.00-0.05) 02/21/19 15:10 Current Medications Generic Name Dose Route Start Last Admin Trade Name Freq PRN Reason Stop Dose Admin Acetaminophen 1,000 mg 03/11/19 04:18 03/12/19 01:54 Ofirmev Injection - IVPB 1,000 mg Q6H PRN Administration FEVER Amino Acids 30 ml 02/21/19 22:00 03/19/19 06:34 Prosource No Carb Liquid Pkt PO 30 ml TID CHANTELL Administration Apixaban 2.5 mg 02/21/19 22:00 03/19/19 10:04 Eliquis - PO 2.5 mg BID CHANTELL Administration Atorvastatin Calcium 20 mg 02/21/19 22:00 03/18/19 21:07 Lipitor - PO 20 mg HS CHANTELL Administration Collagenase 1 applic 02/22/19 10:00 03/19/19 10:04 Santyl - TP 1 applic DAILY CHANTELL Administration Protocol Epoetin Jose 12,000 unit 03/19/19 13:48 Epogen - IVPUSH 03/19/19 13:49 ONCE ONE Escitalopram Oxalate 10 mg 02/22/19 10:00 03/19/19 10:04 Lexapro - PO 10 mg DAILY CHANTELL Administration Hydrocortisone Sodium Succinate 100 mg 03/11/19 11:00 03/19/19 10:03 Solu-Cortef - IVPB 100 mg Q8H-IV CHANTELL Administration Fentanyl 500 mcg/ Dextrose 100 mls @ 1 mls/hr 03/11/19 00:45 03/19/19 06:29 IVPB 25 mcg/hr TITR CHANTELL 5 mls/hr Titration 5 MCG/HR Norepinephrine Bitartrate 8, 500 mls @ 18.75 mls/hr 03/11/19 05:58 03/19/19 10:03 000 mcg/ Dextrose IV 30 mcg/min ASDIR CHANTELL 112.5 mls/hr Administration Protocol 5 MCG/MIN Vasopressin 50 units/ Sodium 100 mls @ 4 mls/hr 03/11/19 06:30 03/18/19 18:22 Chloride IVPB 0 units/hr ASDIR CHANTELL 0 mls/hr Titration Protocol 2 UNITS/HR Meropenem 500 mg/ Dextrose 100 mls @ 200 mls/hr 03/11/19 10:00 03/19/19 10:02 IVPB 200 mls/hr DAILY CHANTELL Administration Sodium Chloride 250 mls @ 3,000 mls/hr 03/18/19 13:48 Normal Saline - IV 03/19/19 13:48 PRN PRN Hypotension during Dialysis Insulin Aspart 1 vial 03/13/19 12:00 03/19/19 06:52 Novolog Vial Sliding Scale - SQ 2 units Q6HPO CHANTELL Administration Protocol Midodrine 10 mg 03/02/19 14:00 03/19/19 10:03 Proamatine - PO 10 mg TID-MID CHANTELL Administration Multivitamins/Minerals/Vitamin C 1 tab 02/22/19 10:00 03/19/19 10:04 Tab-A-Vit - PO 1 tab DAILY CHANTELL Administration Pantoprazole Sodium 40 mg 03/14/19 22:00 03/19/19 10:04 Protonix Iv IVPUSH 40 mg BID CHANTELL Administration Tamsulosin HCl 0.4 mg 02/21/19 22:00 03/18/19 21:07 Flomax - PO 0.4 mg HS CHANTELL Administration Home Medications Medication Instructions Recorded Albuterol 2.5/Ipratropium 0.5 1 amp NEB Q6H PRN #0 amp 07/12/17 [Duoneb -] Allopurinol [Zyloprim -] 100 mg PO DAILY tablet 07/12/17 Atorvastatin Ca [Lipitor] 20 mg PO HS tablet 07/12/17 Collagenase Clostridium Hist. 1 applic TP DAILY tube 09/06/18 [Santyl -] Albuterol Sulfate [Proair Hfa] 2 puff IH Q6H PRN 10/29/18 Escitalopram Oxalate [Lexapro -] 10 mg PO DAILY 10/29/18 Folic Acid/Vit B Complex and C 1 each PO DAILY 10/29/18 [Dialyvite Tablet] Midodrine HCl 10 mg PO MOWEFR 10/29/18 Sevelamer Carbonate [Renvela -] 1,600 mg PO TID 10/29/18 Tamsulosin HCl [Flomax] 0.4 mg PO HS 10/29/18 Insulin Sliding Scale [Novolog 1 vial SQ TIDAC #1 vial 11/17/18 Vial Sliding Scale -] Apixaban [Eliquis -] 5 mg PO BID #30 tablet MDD 2 11/19/18 Collagenase Clostridium Hist. 1 applic TP DAILY #1 tube 01/17/19 [Santyl -] Amoxicillin/Potassium Clav 1 each PO DAILY #7 tablet 02/06/19 [Augmentin 500-125 Tablet] Megestrol Acetate Oral Susp 400 mg PO DAILY #20 cup 02/06/19 [Megace Liquid -] Protein Supplement [Prosource] 275 gm PO TID #60 powder 02/06/19 Lactobacillus Acidophilus [Bacid -] 1 tab PO DAILY #60 tab 02/19/19 Midodrine HCl [Proamatine -] 5 mg PO SuTuThSa #60 tablet 02/19/19 traMADol HCL [Ultram -] 50 mg PO Q6H PRN #60 tablet MDD 4 02/19/19 Microbiology 03/11/19 05:30 Blood - Peripheral Venous Blood Culture - Final NO GROWTH AFTER 5 DAYS INCUBATION 03/11/19 10:15 Sputum - Endotrachea Suction/Ventilator Gram Stain - Final 03/11/19 10:15 Sputum - Endotrachea Suction/Ventilator Sputum Culture - Final Mr S Aureus Escherichia Coli Esbl [employer] Acinetobacter Baumannii/Haemol Pseudomonas Aeruginosa 03/11/19 06:45 Blood - Peripheral Venous Blood Culture - Final Escherichia Coli Esbl [employer] 02/23/19 11:50 Blood - Peripheral Venous Blood Culture - Final NO GROWTH AFTER 5 DAYS INCUBATION 02/23/19 11:50 Blood - Peripheral Venous Blood Culture - Final NO GROWTH AFTER 5 DAYS INCUBATION 02/21/19 13:16 Blood - Peripheral Venous Blood Culture - Final Proteus Mirabilis Prevotella Melaninogenica 02/21/19 16:30 Foot - Left Heel Gram Stain - Final 02/21/19 16:30 Foot - Left Heel Wound Culture - Final Escherichia Coli Esbl [employer] Morganella Morganii 02/21/19 15:40 Blood - Peripheral Venous Blood Culture - Final Proteus Mirabilis 02/21/19 14:50 Urine - Urine - Catheterized Urine Culture - Final NO GROWTH OBTAINED ASSESSMENT AND PLAN: Patient is a 73 y/o man with h/o dementia, CVA, DM, COPD, ESRD, gout, HTN, HLP, recent admission 01/31-02/19 during which he was treated for sepsis due to infected b/l feet ulcers/gangrene. He was sent form NH due to poor po intake, and non healing wounds # Acute hypoxic respiratory failure s/p extubation today further management per ICU team continue current management # Pneumonia likely aspiration continue IV antibiotic # Septic shock due GNR bacteremia ecoli esbl bacteremia due to gangrenous infection of LEs cont meropenem ,on 2 pressors taper as needed. # Infected sacral decub and scrotal ulcer continue current management # ESRD on HD per schedule , management per nephro # DM SSI with coverage # anemia # Acute hyponatremia on NS continue # Hx of BPH: on Flomax # Electrolytes: replete as needed. # Hx of CVA/hyperlipidemia GI Px: PPI DVT px; Eliquis continue efforts to discuss medical condition and prognosis with next of kin given overall poor condition, current medical condition, and overall poor assisted outcome, recommend palliative/comfort care continue ICU monitoring
--- NOTE | 2019-03-19 13:46 | PN ---
Progress Note, Physician History of Present Illness: Pt seen and examined at bedside. He is now extubated. - Current Medication List Current Medications: Active Medications Acetaminophen (Ofirmev Injection -) 1,000 mg IVPB Q6H PRN PRN Reason: FEVER Last Admin: 03/12/19 01:54 Dose: 1,000 mg Amino Acids (Prosource No Carb Liquid Pkt) 30 ml PO TID CHANTELL Last Admin: 03/19/19 06:34 Dose: 30 ml Apixaban (Eliquis -) 2.5 mg PO BID CHANTELL Last Admin: 03/19/19 10:04 Dose: 2.5 mg Atorvastatin Calcium (Lipitor -) 20 mg PO HS CHANTELL Last Admin: 03/18/19 21:07 Dose: 20 mg Collagenase (Santyl -) 1 applic TP DAILY CHANTELL; Protocol Last Admin: 03/19/19 10:04 Dose: 1 applic Epoetin Jose (Epogen -) 12,000 unit IVPUSH ONCE ONE Stop: 03/19/19 13:49 Escitalopram Oxalate (Lexapro -) 10 mg PO DAILY CHANTELL Last Admin: 03/19/19 10:04 Dose: 10 mg Hydrocortisone Sodium Succinate (Solu-Cortef -) 100 mg IVPB Q8H-IV CHANTELL Last Admin: 03/19/19 10:03 Dose: 100 mg Fentanyl 500 mcg/ Dextrose 100 mls @ 1 mls/hr IVPB TITR CHANTELL Last Titration: 03/19/19 06:29 Dose: 25 mcg/hr, 5 mls/hr Norepinephrine Bitartrate 8, (000 mcg/ Dextrose) 500 mls @ 18.75 mls/hr IV ASDIR CHANTELL; Protocol Last Admin: 03/19/19 10:03 Dose: 30 mcg/min, 112.5 mls/hr Vasopressin 50 units/ Sodium (Chloride) 100 mls @ 4 mls/hr IVPB ASDIR CHANTELL; Protocol Last Titration: 03/18/19 18:22 Dose: 0 units/hr, 0 mls/hr Meropenem 500 mg/ Dextrose 100 mls @ 200 mls/hr IVPB DAILY CHANTELL Last Admin: 03/19/19 10:02 Dose: 200 mls/hr Sodium Chloride (Normal Saline -) 250 mls @ 3,000 mls/hr IV PRN PRN PRN Reason: Hypotension during Dialysis Stop: 03/19/19 13:48 Insulin Aspart (Novolog Vial Sliding Scale -) 1 vial SQ Q6HPO [facility]; Protocol Last Admin: 03/19/19 06:52 Dose: 2 units Midodrine (Proamatine -) 10 mg PO TID-MID [facility] Last Admin: 03/19/19 10:03 Dose: 10 mg Multivitamins/Minerals/Vitamin C (Tab-A-Vit -) 1 tab PO DAILY [facility] Last Admin: 03/19/19 10:04 Dose: 1 tab Pantoprazole Sodium (Protonix Iv) 40 mg IVPUSH BID [facility] Last Admin: 03/19/19 10:04 Dose: 40 mg Tamsulosin HCl (Flomax -) 0.4 mg PO HS [facility] Last Admin: 03/18/19 21:07 Dose: 0.4 mg - Objective Vital Signs: Vital Signs Temperature 97.3 F L 03/19/19 10:00 Pulse Rate 96 H 03/19/19 12:00 Respiratory Rate 29 H 03/19/19 12:00 Blood Pressure 117/60 03/19/19 12:00 O2 Sat by Pulse Oximetry (%) 99 03/19/19 11:40 Constitutional: Yes: Calm Eyes: Yes: Conjunctiva Clear HENT: Yes: Atraumatic Cardiovascular: Yes: S1, S2 Respiratory: Yes: CTA Bilaterally, On Nasal O2 Gastrointestinal: Yes: Soft Genitourinary: Yes: Incontinence Musculoskeletal: Yes: Muscle Weakness Edema: Yes Edema: LLE: Trace, RLE: Trace Neurological: Yes: Confusion Labs: CBC, BMP 03/19/19 05:10 03/19/19 05:10 INR, PTT INR 1.44 (0.83-1.09) H 02/22/19 05:40 Problem List - Problems (1) ESRD (end stage renal disease) on dialysis Code(s): N18.6 - END STAGE RENAL DISEASE; Z99.2 - DEPENDENCE ON RENAL DIALYSIS Assessment/Plan Current Medications Generic Name Dose Route Start Last Admin Trade Name Freq PRN Reason Stop Dose Admin Acetaminophen 1,000 mg 03/11/19 04:18 03/12/19 01:54 Ofirmev Injection - IVPB 1,000 mg Q6H PRN Administration FEVER Amino Acids 30 ml 02/21/19 22:00 03/19/19 06:34 Prosource No Carb Liquid Pkt PO 30 ml TID CHANTELL Administration Apixaban 2.5 mg 02/21/19 22:00 03/19/19 10:04 Eliquis - PO 2.5 mg BID CHANTELL Administration Atorvastatin Calcium 20 mg 02/21/19 22:00 03/18/19 21:07 Lipitor - PO 20 mg HS CHANTELL Administration Collagenase 1 applic 02/22/19 10:00 03/19/19 10:04 Santyl - TP 1 applic DAILY CHANTELL Administration Protocol Epoetin Jose 12,000 unit 03/19/19 13:48 Epogen - IVPUSH 03/19/19 13:49 ONCE ONE Escitalopram Oxalate 10 mg 02/22/19 10:00 03/19/19 10:04 Lexapro - PO 10 mg DAILY CHANTELL Administration Hydrocortisone Sodium Succinate 100 mg 03/11/19 11:00 03/19/19 10:03 Solu-Cortef - IVPB 100 mg Q8H-IV CHANTELL Administration Fentanyl 500 mcg/ Dextrose 100 mls @ 1 mls/hr 03/11/19 00:45 03/19/19 06:29 IVPB 25 mcg/hr TITR CHANTELL 5 mls/hr Titration 5 MCG/HR Norepinephrine Bitartrate 8, 500 mls @ 18.75 mls/hr 03/11/19 05:58 03/19/19 10:03 000 mcg/ Dextrose IV 30 mcg/min ASDIR CHANTELL 112.5 mls/hr Administration Protocol 5 MCG/MIN Vasopressin 50 units/ Sodium 100 mls @ 4 mls/hr 03/11/19 06:30 03/18/19 18:22 Chloride IVPB 0 units/hr ASDIR CHANTELL 0 mls/hr Titration Protocol 2 UNITS/HR Meropenem 500 mg/ Dextrose 100 mls @ 200 mls/hr 03/11/19 10:00 03/19/19 10:02 IVPB 200 mls/hr DAILY CHANTELL Administration Sodium Chloride 250 mls @ 3,000 mls/hr 03/18/19 13:48 Normal Saline - IV 03/19/19 13:48 PRN PRN Hypotension during Dialysis Insulin Aspart 1 vial 03/13/19 12:00 03/19/19 06:52 Novolog Vial Sliding Scale - SQ 2 units Q6HPO CHANTELL Administration Protocol Midodrine 10 mg 03/02/19 14:00 03/19/19 10:03 Proamatine - PO 10 mg TID-MID CHANTELL Administration Multivitamins/Minerals/Vitamin C 1 tab 02/22/19 10:00 03/19/19 10:04 Tab-A-Vit - PO 1 tab DAILY CHANTELL Administration Pantoprazole Sodium 40 mg 03/14/19 22:00 03/19/19 10:04 Protonix Iv IVPUSH 40 mg BID CHANTELL Administration Tamsulosin HCl 0.4 mg 02/21/19 22:00 03/18/19 21:07 Flomax - PO 0.4 mg HS CHANTELL Administration Impression 1. ESRD 2. gangrene 3. DM 4. hyperlipidemia 5. HTN 6. gout 7. proteinuria 8. hypotension 9. sepsis 10. resp failure 11. GI bleed Plan - HD today - pt now extubated - cont ICU management - cont wound care - 3 k bath on hd
[2019-03-19] MEDS ORDERED: EPOETIN ALFA 2,000 UNIT/1 ML VIAL IVPUSH ONE (13:48)
[2019-03-19] MEDS ORDERED: EPOETIN ALFA 10,000 UNIT, EPOETIN ALFA 2,000 UNIT IVPUSH ONE (14:30)
--- NOTE | 2019-03-19 15:30 | PN ---
Physical Exam: SUBJECTIVE: Patient seen and examined at bedside On 8 mcq of with MAPs maintained overnight. Intubated on Fentanyl for sedation. rsbi 54, will consider extubation OBJECTIVE: Vital Signs Period Temp Pulse Resp BP Sys/Zamorano Pulse Ox Last 24 Hr 97.3 F-97.6 F 79-123 15-29 98-122/49-66 99-100 GENERAL: The patient is intubated and sedated. No response to noxious stimuli HEAD: Normal with no signs of trauma. EYES: PERRL, extraocular movements intact, sclera anicteric, conjunctiva clear. No ptosis. ENT: Ears normal, nares patent, oropharynx clear without exudates, moist mucous membranes. NECK: Trachea midline, full range of motion, supple. LUNGS: Breath sounds equal, clear to auscultation bilaterally, no wheezes, no crackles, no accessory muscle use. HEART: Regular rate and rhythm, S1, S2 without murmur, rub or gallop. ABDOMEN: Soft, nontender, nondistended, normoactive bowel sounds, no guarding, no rebound, no hepatosplenomegaly, no masses. EXTREMITIES: bilateral gangrene lower ext down to the tendon on the left with unstageble sacral ulcer NEUROLOGICAL: Cranial nerves II through XII grossly intact. Follows basic commands PSYCH: Normal mood, normal affect. SKIN: bilateral gangrene lower ext down to the tendon on the left with purulent foul smelling discharge. Unstageble sacral ulcer Laboratory Results - last 24 hr 03/18/19 03/19/19 03/19/19 17:36 00:04 05:10 WBC 16.5 H RBC 3.07 L Hgb 9.1 L Hct 28.2 L MCV 91.8 MCH 29.6 MCHC 32.2 RDW 19.0 H Plt Count 168 MPV 11.7 H Absolute Neuts (auto) 15.5 H Neutrophils % 94.0 H Neutrophils % (Manual) 93.0 H Band Neutrophils % 0.0 Lymphocytes % 5.2 L D Lymphocytes % (Manual) 6.0 L D Monocytes % 0.5 L D Monocytes % (Manual) 1 L Eosinophils % 0.0 Eosinophils % (Manual) 0.0 Basophils % 0.3 Basophils % (Manual) 0.0 Myelocytes % (Man) 0 Promyelocytes % (Man) 0 Blast Cells % (Manual) 0 Nucleated RBC % 0 Metamyelocytes 0 Hypochromia 0 Platelet Estimate Normal Polychromasia 0 Poikilocytosis 0 Anisocytosis 1+ Microcytosis 1+ Macrocytosis 1+ Target Cells 1+ Sodium Potassium Chloride Carbon Dioxide Anion Gap BUN Creatinine Est GFR (CKD-EPI)AfAm Est GFR (CKD-EPI)NonAf POC Glucometer 177 153 Random Glucose Calcium Phosphorus Magnesium Total Bilirubin AST ALT Alkaline Phosphatase Total Protein Albumin 03/19/19 05:10 WBC RBC Hgb Hct MCV MCH MCHC RDW Plt Count MPV Absolute Neuts (auto) Neutrophils % Neutrophils % (Manual) Band Neutrophils % Lymphocytes % Lymphocytes % (Manual) Monocytes % Monocytes % (Manual) Eosinophils % Eosinophils % (Manual) Basophils % Basophils % (Manual) Myelocytes % (Man) Promyelocytes % (Man) Blast Cells % (Manual) Nucleated RBC % Metamyelocytes Hypochromia Platelet Estimate Polychromasia Poikilocytosis Anisocytosis Microcytosis Macrocytosis Target Cells Sodium 131 L Potassium 3.7 Chloride 95 L Carbon Dioxide 26 Anion Gap 10 BUN 34.8 H Creatinine 2.4 H Est GFR (CKD-EPI)AfAm 29.69 Est GFR (CKD-EPI)NonAf 25.61 POC Glucometer Random Glucose 173 H Calcium 6.7 L* Phosphorus 3.2 Magnesium 1.9 Total Bilirubin 2.3 H AST 57 H ALT 18 Alkaline Phosphatase 454 H Total Protein 4.7 L Albumin 1.0 L Active Medications Generic Name Dose Route Start Last Admin Trade Name Freq PRN Reason Stop Dose Admin Acetaminophen 1,000 mg 03/11/19 04:18 03/12/19 01:54 Ofirmev Injection - IVPB 1,000 mg Q6H PRN Administration FEVER Amino Acids 30 ml 02/21/19 22:00 03/19/19 06:34 Prosource No Carb Liquid Pkt PO 30 ml TID CHANTELL Administration Apixaban 2.5 mg 02/21/19 22:00 03/19/19 10:04 Eliquis - PO 2.5 mg BID CHANTELL Administration Atorvastatin Calcium 20 mg 02/21/19 22:00 03/18/19 21:07 Lipitor - PO 20 mg HS CHANTELL Administration Collagenase 1 applic 02/22/19 10:00 03/19/19 10:04 Santyl - TP 1 applic DAILY CHANTELL Administration Protocol Escitalopram Oxalate 10 mg 02/22/19 10:00 03/19/19 10:04 Lexapro - PO 10 mg DAILY CHANTELL Administration Hydrocortisone Sodium Succinate 100 mg 03/11/19 11:00 03/19/19 10:03 Solu-Cortef - IVPB 100 mg Q8H-IV CHANTELL Administration Fentanyl 500 mcg/ Dextrose 100 mls @ 1 mls/hr 03/11/19 00:45 03/19/19 06:29 IVPB 25 mcg/hr TITR CHANTELL 5 mls/hr Titration 5 MCG/HR Norepinephrine Bitartrate 8, 500 mls @ 18.75 mls/hr 03/11/19 05:58 03/19/19 10:03 000 mcg/ Dextrose IV 30 mcg/min ASDIR CHANTELL 112.5 mls/hr Administration Protocol 5 MCG/MIN Vasopressin 50 units/ Sodium 100 mls @ 4 mls/hr 03/11/19 06:30 03/18/19 18:22 Chloride IVPB 0 units/hr ASDIR CHANTELL 0 mls/hr Titration Protocol 2 UNITS/HR Meropenem 500 mg/ Dextrose 100 mls @ 200 mls/hr 03/11/19 10:00 03/19/19 10:02 IVPB 200 mls/hr DAILY CHANTELL Administration Insulin Aspart 1 vial 03/13/19 12:00 03/19/19 06:52 Novolog Vial Sliding Scale - SQ 2 units Q6HPO CHANTELL Administration Protocol Midodrine 10 mg 03/02/19 14:00 03/19/19 10:03 Proamatine - PO 10 mg TID-MID CHANTELL Administration Multivitamins/Minerals/Vitamin C 1 tab 02/22/19 10:00 03/19/19 10:04 Tab-A-Vit - PO 1 tab DAILY CHANTELL Administration Pantoprazole Sodium 40 mg 03/14/19 22:00 03/19/19 10:04 Protonix Iv IVPUSH 40 mg BID CHANTELL Administration Tamsulosin HCl 0.4 mg 02/21/19 22:00 03/18/19 21:07 Flomax - PO 0.4 mg HS CHANTELL Administration ASSESSMENT/PLAN: Turned off Fentanyl drip and placed on CPAP mode with O2 saturation maintained and breathing on his own RSBI 54, pt has good cough reflex with suction. Baseline mentation poor. Pt Extubated, on venti mask saturating 100%. HD today as per nephro Again attempted to contact pt daughter, no answer, message placed on voicemail, no return call. Sputum and blood cultures positive for many resistant organisms. No changes required to vent settings, unlikely PNA or new resp pathology. Will continue to treat with stated antibiotics as per ID #septic shock 2/2 DM gangrenous B/L feet infx, Infected sacral decub and scrotal ulcer, and GN bacteremia (proteus, prevotella) - requiring ICU and pressors. Now w/ hypoxic respiratory failure possibly 2/2 developing aspiration PNA (aspirated over the weekend) requiring intubation/sedation. CXR 03/11 shows questionable infiltrate L base. +Leukocytosis. afebrile now for >24hr -old cx with E coli, ESBL, MRSA, and VRE. -contact isolation for MDRO -s/p Vanc and Zosyn in the ED, Gentamicin x1, Meropenem x2 in ICU -Bcx 02/21/19 growing GN cher - proteus and prevotella -ucx neg -wound cx E coli, morganella -Bcx 02/23/19 neg -03/11/19 sputum cx MRSA, pseudomonas A,ecoli esbl, acinetobacter ; bcx ecoli esbl bacteremia. -ID consulted, Rangel -lactic acid resolved -palliative care consulted -s/p CTX 2g/flagyl, c/w Meropenem day #20 total abx, ID recs appreciated. -s/p vanc and gentamicin x1 yesterday per ID -Aspiration precautions. -c/w Levophed 8, vasopressin 6, stress steroids. Titrate pressors to keep MAP>65 -fentanyl 25mcg for comfort and sedation -vascular surgery consulted, Dr harry, for wound care. amputation indicated, but family not amenable. cont GOC #Seizure-like myoclonus 03/12/19 - noted overnight. resolved w/ ativan 1mg and loaded w/ keppra. see Dr Overton note for further details c/w keppra 250 bid #ESRD on HD (MWF) -nephro consulted (Dr. Henriquez) -HD today - due to recent cardiac irregular rhythms, nephro monitoring K closely and will continue to reassess #Acute on chronic anemia likely 2/2 ESRD -monitor H/H #Severe protein calorie malnutrition -albumin 1.1, prealbumin 3.5 -thin appearing, decreased muscle mass and fat -decreased overall PO intake -Holding tube feeds due to continued aspiration risk. Giving only medication through NG tube #COPD -keep SpO2>90% -Duonebs q6h PRN #Dm ISS BGM ACHS #H/o hypotension : c/w home midodrine monitor vitals # h/o afib c/w elequis 2.5 bid #FEN -Not on any standing fluids -replete prn -NGT on tube feeds #Prophylaxis -Eliquis 2.5mg BID -Protonix IV while on AC and pressors -bacid Visit type - Emergency Visit Emergency Visit: No - New Patient This patient is new to me today: No - Critical Care Critical Care patient: Yes Total Critical Care Time (in minutes): 36 Critical Care Statement: The care of this patient involved high complexity decision making to prevent further life threatening deterioration of the patient 's condition and/or to evaluate & treat vital organ system(s) failure or risk of failure.
[2019-03-19] MEDS: ATORVASTATIN CA 20 MG TABLET (FP) PO SCH (21:18)
[2019-03-19] MEDS: TAMSULOSIN HCL 0.4 MG CAP PO SCH (21:19)
[2019-03-20] MEDS: INSULIN SLIDING SCALE (NOVOLOG) 1 VIAL SQ SCH ×4 (00:21→18:59)
[2019-03-20] MEDS: HYDROCORTISONE SOD SUCCINATE 100 MG/2 ML VIAL IVPB SCH ×3 (01:06→18:59)
[2019-03-20] MEDS: AMINO ACIDS/PROTEIN HYDROLYS 30 ML LIQUID.PKT PO SCH ×3 (06:10→23:23)
[2019-03-20 06:24] LABS: BASO % 0.1 % (0-2.0); HEMOGLOBIN 9.4 GM/dL (11.7-16.9); LYMPH % 3.6 % (8-40); MCH 29.9 pg (25.7-33.7); MCHC 32.5 g/dl (32.0-35.9); MEAN CELL VOLUME 92.1 fl (80-96); MEAN PLT VOLUME 11.6 fl (7.5-11.1); MONO % 2.1 % (3.8-10.2); NEUT % 94.2 % (42.8-82.8); PLATELET COUNT 155 K/MM3 (134-434); RBC 3.15 M/mm3 (4.00-5.60); RDW 19.4 % (11.9-15.9); WHITE BLOOD COUNT 16.5 K/mm3 (4.0-10.0)
[2019-03-20 06:50] LABS: BILIRUBIN,TOTAL 2.1 mg/dL (0.2-1); BLOOD UREA NITROGEN 28.7 mg/dL (7-18); CREATININE 1.8 mg/dL (0.55-1.3); MAGNESIUM 1.9 mg/dL (1.8-2.4); PHOSPHOROUS 2.8 mg/dL (2.5-4.9); POTASSIUM 3.4 mmol/L (3.5-5.1); TOT PROT 4.8 g/dl (6.4-8.2)
[2019-03-20 07:00] LABS: CALCIUM 6.9 mg/dL (8.5-10.1)
--- NOTE | 2019-03-20 07:36 | PN ---
Physical Exam: SUBJECTIVE: Patient seen and examined at bedside in ICU, intubated, sedated, on max pressors and shock steroids, no acute events overnight. OBJECTIVE: Vital Signs Period Temp Pulse Resp BP Sys/Zamorano Pulse Ox Last 24 Hr 97.2 F-97.4 F 80-129 16-29 106-127/47-68 97-100 GENERAL: The patient is intubated and sedated. No response to noxious stimuli HEAD: NC/AT EYES: PERRLA, , sclera anicteric ENT: intubated NECK: Trachea midline, LUNGS: decrease breath sounds at the bases HEART: Regular rate and rhythm, S1, S2 without murmur, rub or gallop. ABDOMEN: Soft, ND, NT , normoactive bowel sounds, EXTREMITIES: bilateral gangrene lower ext down to the tendon on the left with unstageable sacral ulcer NEUROLOGICAL: intubated and sedated Laboratory Results - last 24 hr 03/19/19 03/19/19 03/19/19 05:10 16:28 18:20 WBC RBC Hgb Hct MCV MCH MCHC RDW Plt Count MPV Absolute Neuts (auto) Neutrophils % Neutrophils % (Manual) 93.0 H Band Neutrophils % 0.0 Lymphocytes % Lymphocytes % (Manual) 6.0 L D Monocytes % Monocytes % (Manual) 1 L Eosinophils % Eosinophils % (Manual) 0.0 Basophils % Basophils % (Manual) 0.0 Myelocytes % (Man) 0 Promyelocytes % (Man) 0 Blast Cells % (Manual) 0 Nucleated RBC % Metamyelocytes 0 Hypochromia 0 Platelet Estimate Normal Polychromasia 0 Poikilocytosis 0 Anisocytosis 1+ Microcytosis 1+ Macrocytosis 1+ Target Cells 1+ Sodium Potassium Chloride Carbon Dioxide Anion Gap BUN Creatinine Est GFR (CKD-EPI)AfAm Est GFR (CKD-EPI)NonAf POC Glucometer 166 152 Random Glucose Calcium Phosphorus Magnesium Total Bilirubin AST ALT Alkaline Phosphatase Total Protein Albumin 03/20/19 03/20/19 03/20/19 00:18 05:00 05:00 WBC 16.5 H RBC 3.15 L Hgb 9.4 L Hct 29.0 L MCV 92.1 MCH 29.9 MCHC 32.5 RDW 19.4 H Plt Count 155 MPV 11.6 H Absolute Neuts (auto) 15.6 H Neutrophils % 94.2 H Neutrophils % (Manual) Band Neutrophils % Lymphocytes % 3.6 L D Lymphocytes % (Manual) Monocytes % 2.1 L D Monocytes % (Manual) Eosinophils % 0.0 Eosinophils % (Manual) Basophils % 0.1 Basophils % (Manual) Myelocytes % (Man) Promyelocytes % (Man) Blast Cells % (Manual) Nucleated RBC % 0 Metamyelocytes Hypochromia Platelet Estimate Polychromasia Poikilocytosis Anisocytosis Microcytosis Macrocytosis Target Cells Sodium 133 L Potassium 3.4 L Chloride 98 Carbon Dioxide 27 Anion Gap 8 BUN 28.7 H Creatinine 1.8 H Est GFR (CKD-EPI)AfAm 42.03 Est GFR (CKD-EPI)NonAf 36.27 POC Glucometer 96 Random Glucose 126 H Calcium 6.9 L* Phosphorus 2.8 Magnesium 1.9 Total Bilirubin 2.1 H AST 89 H ALT 26 Alkaline Phosphatase 786 H Total Protein 4.8 L Albumin 1.0 L 03/20/19 05:58 WBC RBC Hgb Hct MCV MCH MCHC RDW Plt Count MPV Absolute Neuts (auto) Neutrophils % Neutrophils % (Manual) Band Neutrophils % Lymphocytes % Lymphocytes % (Manual) Monocytes % Monocytes % (Manual) Eosinophils % Eosinophils % (Manual) Basophils % Basophils % (Manual) Myelocytes % (Man) Promyelocytes % (Man) Blast Cells % (Manual) Nucleated RBC % Metamyelocytes Hypochromia Platelet Estimate Polychromasia Poikilocytosis Anisocytosis Microcytosis Macrocytosis Target Cells Sodium Potassium Chloride Carbon Dioxide Anion Gap BUN Creatinine Est GFR (CKD-EPI)AfAm Est GFR (CKD-EPI)NonAf POC Glucometer 121 Random Glucose Calcium Phosphorus Magnesium Total Bilirubin AST ALT Alkaline Phosphatase Total Protein Albumin Active Medications Generic Name Dose Route Start Last Admin Trade Name Freq PRN Reason Stop Dose Admin Acetaminophen 1,000 mg 03/11/19 04:18 03/12/19 01:54 Ofirmev Injection - IVPB 1,000 mg Q6H PRN Administration FEVER Amino Acids 30 ml 02/21/19 22:00 03/20/19 06:10 Prosource No Carb Liquid Pkt PO 30 ml TID CHANTELL Administration Apixaban 2.5 mg 02/21/19 22:00 03/19/19 21:17 Eliquis - PO 2.5 mg BID CHANTELL Administration Atorvastatin Calcium 20 mg 02/21/19 22:00 03/19/19 21:18 Lipitor - PO 20 mg HS CHANTELL Administration Collagenase 1 applic 02/22/19 10:00 03/19/19 10:04 Santyl - TP 1 applic DAILY CHANTELL Administration Protocol Escitalopram Oxalate 10 mg 02/22/19 10:00 03/19/19 10:04 Lexapro - PO 10 mg DAILY CHANTELL Administration Hydrocortisone Sodium Succinate 100 mg 03/11/19 11:00 03/20/19 01:06 Solu-Cortef - IVPB 100 mg Q8H-IV CHANTELL Administration Fentanyl 500 mcg/ Dextrose 100 mls @ 1 mls/hr 03/11/19 00:45 03/19/19 06:29 IVPB 25 mcg/hr TITR CHANTELL 5 mls/hr Titration 5 MCG/HR Norepinephrine Bitartrate 8, 500 mls @ 18.75 mls/hr 03/11/19 05:58 03/19/19 18:05 000 mcg/ Dextrose IV 4 mcg/min ASDIR CHANTELL 15 mls/hr Titration Protocol 5 MCG/MIN Vasopressin 50 units/ Sodium 100 mls @ 4 mls/hr 03/11/19 06:30 03/18/19 18:22 Chloride IVPB 0 units/hr ASDIR CHANTELL 0 mls/hr Titration Protocol 2 UNITS/HR Meropenem 500 mg/ Dextrose 100 mls @ 200 mls/hr 03/11/19 10:00 03/19/19 10:02 IVPB 200 mls/hr DAILY CHANTELL Administration Insulin Aspart 1 vial 03/13/19 12:00 03/20/19 06:01 Novolog Vial Sliding Scale - SQ Not Given Q6HPO CHANTELL Protocol Midodrine 10 mg 03/02/19 14:00 03/19/19 18:31 Proamatine - PO 10 mg TID-MID CHANTELL Administration Multivitamins/Minerals/Vitamin C 1 tab 02/22/19 10:00 03/19/19 10:04 Tab-A-Vit - PO 1 tab DAILY CHANTELL Administration Pantoprazole Sodium 40 mg 03/14/19 22:00 03/19/19 21:20 Protonix Iv IVPUSH 40 mg BID CHANTELL Administration Tamsulosin HCl 0.4 mg 02/21/19 22:00 03/19/19 21:19 Flomax - PO 0.4 mg HS CHANTELL Administration ASSESSMENT/PLAN: 73 yo M PMH dementia, CVA, DM, COPD, ESRD, gout, HTN, HLP, recent admission 01/31- 02/19 during which he was treated for sepsis due to infected b/l feet ulcers/ gangrene. He was sent form NH due to poor po intake, and worsening of ulcers. Now in septic shock 2/2 DM gangrenous B/L feet infx, Infected sacral decub and scrotal ulcer, and GN bacteremia , requiring ICU and pressors #Acute Hypoxic Respiratory Failure on ventilators , keepo o2 sat > 90 % #Pneumonia suspect Aspiration daily cxr , cont merropenem per ID , aspiration precautions , #ESBL E coli Bacteremia cont abx meropenem , cont solu-medrol 100 Q8hr #Septic Shock on pressers #Bilateral Feet Gangrene vascular on board not able to cosent as family is not responding #Infected Decubitus Ulcers cont Abx per ID on meropenem , wound care collagenase santyl #DIOGENES on CKD , ESRD on HD # Anemia : on epogen per renal with HD #DM BGM , ISS , hold oral agents #HTN: on pressors due to septic shock , midodrine #Hyperlipidemia: cont Atorvastatin 20 HS #h/o CVA cont ASA #PBH on flomax cont # DVTS proph scds , on eliquis 2.5 BID # GI proph : PPI 40 BID # Monitor lytes and replinished as needed # full code , pending ethics comity and family decision # very poor prognosis Visit type - Emergency Visit Emergency Visit: No - New Patient This patient is new to me today: No - Critical Care Critical Care patient: Yes Total Critical Care Time (in minutes): 40 Critical Care Statement: The care of this patient involved high complexity decision making to prevent further life threatening deterioration of the patient 's condition and/or to evaluate & treat vital organ system(s) failure or risk of failure.
--- NOTE | 2019-03-20 09:04 | PN ---
Physical Exam: SUBJECTIVE: Patient seen and examined at bedside. On levo 4 with map 74. tachycardic to 128/130 overnight. Was extubated yesterday. OBJECTIVE: Vital Signs Period Temp Pulse Resp BP Sys/Zamorano Pulse Ox Last 24 Hr 97.2 F-97.4 F 80-129 16-29 106-127/47-68 97-100 GENERAL: A&Ox0, no acute distress ENT: Dry mucus membranes NECK: No JVD LUNGS: CTA, no wheezes HEART: tachycardic to 130s, no murmurs ABDOMEN: Soft, nontender, BS present MUSCULOSKELETAL: No CVA Tenderness EXTREMITIES: 2+ pulses, no edema. NEUROLOGICAL: Cranial nerves II-XII intact. SKIN: bilateral gangrene lower ext down to the tendon on the left with purulent foul smelling discharge. Unstageble sacral ulcer Laboratory Results - last 24 hr 03/19/19 03/19/19 03/19/19 05:10 16:28 18:20 WBC RBC Hgb Hct MCV MCH MCHC RDW Plt Count MPV Absolute Neuts (auto) Neutrophils % Neutrophils % (Manual) 93.0 H Band Neutrophils % 0.0 Lymphocytes % Lymphocytes % (Manual) 6.0 L D Monocytes % Monocytes % (Manual) 1 L Eosinophils % Eosinophils % (Manual) 0.0 Basophils % Basophils % (Manual) 0.0 Myelocytes % (Man) 0 Promyelocytes % (Man) 0 Blast Cells % (Manual) 0 Nucleated RBC % Metamyelocytes 0 Hypochromia 0 Platelet Estimate Normal Polychromasia 0 Poikilocytosis 0 Anisocytosis 1+ Microcytosis 1+ Macrocytosis 1+ Target Cells 1+ Sodium Potassium Chloride Carbon Dioxide Anion Gap BUN Creatinine Est GFR (CKD-EPI)AfAm Est GFR (CKD-EPI)NonAf POC Glucometer 166 152 Random Glucose Calcium Phosphorus Magnesium Total Bilirubin AST ALT Alkaline Phosphatase Total Protein Albumin 03/20/19 03/20/19 03/20/19 00:18 05:00 05:00 WBC 16.5 H RBC 3.15 L Hgb 9.4 L Hct 29.0 L MCV 92.1 MCH 29.9 MCHC 32.5 RDW 19.4 H Plt Count 155 MPV 11.6 H Absolute Neuts (auto) 15.6 H Neutrophils % 94.2 H Neutrophils % (Manual) Band Neutrophils % Lymphocytes % 3.6 L D Lymphocytes % (Manual) Monocytes % 2.1 L D Monocytes % (Manual) Eosinophils % 0.0 Eosinophils % (Manual) Basophils % 0.1 Basophils % (Manual) Myelocytes % (Man) Promyelocytes % (Man) Blast Cells % (Manual) Nucleated RBC % 0 Metamyelocytes Hypochromia Platelet Estimate Polychromasia Poikilocytosis Anisocytosis Microcytosis Macrocytosis Target Cells Sodium 133 L Potassium 3.4 L Chloride 98 Carbon Dioxide 27 Anion Gap 8 BUN 28.7 H Creatinine 1.8 H Est GFR (CKD-EPI)AfAm 42.03 Est GFR (CKD-EPI)NonAf 36.27 POC Glucometer 96 Random Glucose 126 H Calcium 6.9 L* Phosphorus 2.8 Magnesium 1.9 Total Bilirubin 2.1 H AST 89 H ALT 26 Alkaline Phosphatase 786 H Total Protein 4.8 L Albumin 1.0 L 03/20/19 05:58 WBC RBC Hgb Hct MCV MCH MCHC RDW Plt Count MPV Absolute Neuts (auto) Neutrophils % Neutrophils % (Manual) Band Neutrophils % Lymphocytes % Lymphocytes % (Manual) Monocytes % Monocytes % (Manual) Eosinophils % Eosinophils % (Manual) Basophils % Basophils % (Manual) Myelocytes % (Man) Promyelocytes % (Man) Blast Cells % (Manual) Nucleated RBC % Metamyelocytes Hypochromia Platelet Estimate Polychromasia Poikilocytosis Anisocytosis Microcytosis Macrocytosis Target Cells Sodium Potassium Chloride Carbon Dioxide Anion Gap BUN Creatinine Est GFR (CKD-EPI)AfAm Est GFR (CKD-EPI)NonAf POC Glucometer 121 Random Glucose Calcium Phosphorus Magnesium Total Bilirubin AST ALT Alkaline Phosphatase Total Protein Albumin Active Medications Generic Name Dose Route Start Last Admin Trade Name Freq PRN Reason Stop Dose Admin Acetaminophen 1,000 mg 03/11/19 04:18 03/12/19 01:54 Ofirmev Injection - IVPB 1,000 mg Q6H PRN Administration FEVER Amino Acids 30 ml 02/21/19 22:00 03/20/19 06:10 Prosource No Carb Liquid Pkt PO 30 ml TID CHANTELL Administration Apixaban 2.5 mg 02/21/19 22:00 03/19/19 21:17 Eliquis - PO 2.5 mg BID CHANTELL Administration Atorvastatin Calcium 20 mg 02/21/19 22:00 03/19/19 21:18 Lipitor - PO 20 mg HS CHANTELL Administration Collagenase 1 applic 02/22/19 10:00 03/19/19 10:04 Santyl - TP 1 applic DAILY CHANTELL Administration Protocol Escitalopram Oxalate 10 mg 02/22/19 10:00 03/19/19 10:04 Lexapro - PO 10 mg DAILY CHANTELL Administration Hydrocortisone Sodium Succinate 100 mg 03/11/19 11:00 03/20/19 01:06 Solu-Cortef - IVPB 100 mg Q8H-IV CHANTELL Administration Norepinephrine Bitartrate 8, 500 mls @ 18.75 mls/hr 03/11/19 05:58 03/20/19 07:37 000 mcg/ Dextrose IV 2 mcg/min ASDIR CHANTELL 7.5 mls/hr Titration Protocol 5 MCG/MIN Vasopressin 50 units/ Sodium 100 mls @ 4 mls/hr 03/11/19 06:30 03/18/19 18:22 Chloride IVPB 0 units/hr ASDIR CHANTELL 0 mls/hr Titration Protocol 2 UNITS/HR Meropenem 500 mg/ Dextrose 100 mls @ 200 mls/hr 03/11/19 10:00 03/19/19 10:02 IVPB 200 mls/hr DAILY CHANTELL Administration Insulin Aspart 1 vial 03/13/19 12:00 03/20/19 06:01 Novolog Vial Sliding Scale - SQ Not Given Q6HPO CHANTELL Protocol Midodrine 10 mg 03/02/19 14:00 03/19/19 18:31 Proamatine - PO 10 mg TID-MID CHANTELL Administration Multivitamins/Minerals/Vitamin C 1 tab 02/22/19 10:00 03/19/19 10:04 Tab-A-Vit - PO 1 tab DAILY CHANTELL Administration Pantoprazole Sodium 40 mg 03/14/19 22:00 03/19/19 21:20 Protonix Iv IVPUSH 40 mg BID CHANTELL Administration ASSESSMENT/PLAN: Called daughter, no answer on phone. #septic shock 2/2 DM gangrenous B/L feet infx, Infected sacral decub and scrotal ulcer, and GN bacteremia (proteus, prevotella) - requiring ICU and pressors. -old cx with E coli, ESBL, MRSA, and VRE. -contact isolation for MDRO -abx per ID -ID consulted, Rangel -palliative care consulted -Aspiration precautions. -pressors levo/vaso as necessary -goals of care meeting with family will be discussed tomorrow #ESRD on HD (MWF) -nephro consulted (Dr. Henriquez) -HD per renal #Acute on chronic anemia likely 2/2 ESRD -monitor H/H #Severe protein calorie malnutrition -albumin 1.1, prealbumin 3.5 -thin appearing, decreased muscle mass and fat -decreased overall PO intake #COPD -keep SpO2>90% -Duonebs q6h PRN #Dm ISS BGM ACHS #H/o hypotension : c/w home midodrine monitor vitals # h/o afib c/w elequis 2.5 bid #FEN -Not on any standing fluids -replete prn -NGT on tube feeds #Prophylaxis -Eliquis 2.5mg BID -Protonix IV while on AC and pressors -bacid Visit type - Emergency Visit Emergency Visit: Yes ED Registration Date: 02/21/19 Care time: The patient presented to the Emergency Department on the above date and was hospitalized for further evaluation of their emergent condition. - New Patient This patient is new to me today: Yes Date on this admission: 03/20/19 - Critical Care Critical Care patient: Yes Total Critical Care Time (in minutes): 35 Critical Care Statement: The care of this patient involved high complexity decision making to prevent further life threatening deterioration of the patient 's condition and/or to evaluate & treat vital organ system(s) failure or risk of failure.
[2019-03-20] MEDS ORDERED: PT OWN MED DRAWER 7, Y5N ONE (09:51)
[2019-03-20] MEDS: MEROPENEM 500 MG in DEXTROSE 5%-WATER 100 ML IVPB SCH (10:00)
[2019-03-20] MEDS: PANTOPRAZOLE SODIUM 40 MG VIAL IVPUSH SCH ×2 (10:02→23:23)
[2019-03-20] MEDS: COLLAGENASE CLOSTRIDIUM HIST. 30 GRAMS TUBE TP SCH (10:03)
[2019-03-20 10:14] LABS: ANISOCYTOSIS 1+; MACROCYTOSIS 1+; PLATELET ESTIMATE NORMAL
[2019-03-20] MEDS: APIXABAN 2.5 MG TABLET PO SCH ×2 (11:02→23:23)
[2019-03-20] MEDS: ESCITALOPRAM OXALATE 10 MG TABLET (FP) PO SCH (11:02)
[2019-03-20] MEDS: MULTIVITAMINS (DAILY MVI) TABLET (FP) PO SCH (11:03)
--- NOTE | 2019-03-20 11:12 | PN ---
Progress Note, Physician History of Present Illness: Pt seen and examined at bedside. He remains in the ICU. He is extubated. - Current Medication List Current Medications: Active Medications Acetaminophen (Ofirmev Injection -) 1,000 mg IVPB Q6H PRN PRN Reason: FEVER Last Admin: 03/12/19 01:54 Dose: 1,000 mg Amino Acids (Prosource No Carb Liquid Pkt) 30 ml PO TID CHANTELL Last Admin: 03/20/19 06:10 Dose: 30 ml Apixaban (Eliquis -) 2.5 mg PO BID CHANTELL Last Admin: 03/20/19 11:02 Dose: 2.5 mg Atorvastatin Calcium (Lipitor -) 20 mg PO HS CHANTELL Last Admin: 03/19/19 21:18 Dose: 20 mg Collagenase (Santyl -) 1 applic TP DAILY CHANTELL; Protocol Last Admin: 03/20/19 10:03 Dose: 1 applic Escitalopram Oxalate (Lexapro -) 10 mg PO DAILY CHANTELL Last Admin: 03/20/19 11:02 Dose: 10 mg Hydrocortisone Sodium Succinate (Solu-Cortef -) 100 mg IVPB Q8H-IV CHANTELL Last Admin: 03/20/19 11:02 Dose: 100 mg Norepinephrine Bitartrate 8, (000 mcg/ Dextrose) 500 mls @ 18.75 mls/hr IV ASDIR CHANTELL; Protocol Last Titration: 03/20/19 07:37 Dose: 2 mcg/min, 7.5 mls/hr Vasopressin 50 units/ Sodium (Chloride) 100 mls @ 4 mls/hr IVPB ASDIR CHANTELL; Protocol Last Titration: 03/18/19 18:22 Dose: 0 units/hr, 0 mls/hr Meropenem 500 mg/ Dextrose 100 mls @ 200 mls/hr IVPB DAILY CHANTELL Last Admin: 03/20/19 10:00 Dose: 200 mls/hr Insulin Aspart (Novolog Vial Sliding Scale -) 1 vial SQ Q6HPO [facility]TE[facility]; Protocol Last Admin: 03/20/19 06:01 Dose: Not Given Midodrine (Proamatine -) 10 mg PO TID-MID CHANTELL Last Admin: 03/19/19 18:31 Dose: 10 mg Multivitamins/Minerals/Vitamin C (Tab-A-Vit -) 1 tab PO DAILY CHANTELL Last Admin: 03/20/19 11:03 Dose: 1 tab Pantoprazole Sodium (Protonix Iv) 40 mg IVPUSH BID CHANTELL Last Admin: 03/20/19 10:02 Dose: 40 mg - Objective Vital Signs: Vital Signs Temperature 97.2 F L 03/20/19 02:00 Pulse Rate 128 H 03/20/19 09:12 Respiratory Rate 25 H 03/20/19 07:00 Blood Pressure 114/62 03/20/19 07:00 O2 Sat by Pulse Oximetry (%) 100 03/20/19 09:12 Constitutional: Yes: Calm Eyes: Yes: Conjunctiva Clear HENT: Yes: Atraumatic Neck: Yes: Supple Cardiovascular: Yes: S1, S2 Respiratory: Yes: On Venti-Mask Gastrointestinal: Yes: Soft Genitourinary: Yes: Incontinence Musculoskeletal: Yes: Muscle Weakness Edema: Yes Edema: LLE: Trace, RLE: Trace Wound/Incision: Yes: Other (odor from wounds) Neurological: Yes: Lethargy Labs: CBC, BMP 03/20/19 05:00 03/20/19 05:00 INR, PTT INR 1.44 (0.83-1.09) H 02/22/19 05:40 Problem List - Problems (1) ESRD (end stage renal disease) on dialysis Code(s): N18.6 - END STAGE RENAL DISEASE; Z99.2 - DEPENDENCE ON RENAL DIALYSIS Assessment/Plan Current Medications Generic Name Dose Route Start Last Admin Trade Name Freq PRN Reason Stop Dose Admin Acetaminophen 1,000 mg 03/11/19 04:18 03/12/19 01:54 Ofirmev Injection - IVPB 1,000 mg Q6H PRN Administration FEVER Amino Acids 30 ml 02/21/19 22:00 03/20/19 06:10 Prosource No Carb Liquid Pkt PO 30 ml TID CHANTELL Administration Apixaban 2.5 mg 02/21/19 22:00 03/20/19 11:02 Eliquis - PO 2.5 mg BID CHANTELL Administration Atorvastatin Calcium 20 mg 02/21/19 22:00 03/19/19 21:18 Lipitor - PO 20 mg HS CHANTELL Administration Collagenase 1 applic 02/22/19 10:00 03/20/19 10:03 Santyl - TP 1 applic DAILY CHANTELL Administration Protocol Escitalopram Oxalate 10 mg 02/22/19 10:00 03/20/19 11:02 Lexapro - PO 10 mg DAILY CHANTELL Administration Hydrocortisone Sodium Succinate 100 mg 03/11/19 11:00 03/20/19 11:02 Solu-Cortef - IVPB 100 mg Q8H-IV CHANTELL Administration Norepinephrine Bitartrate 8, 500 mls @ 18.75 mls/hr 03/11/19 05:58 03/20/19 07:37 000 mcg/ Dextrose IV 2 mcg/min ASDIR CHANTELL 7.5 mls/hr Titration Protocol 5 MCG/MIN Vasopressin 50 units/ Sodium 100 mls @ 4 mls/hr 03/11/19 06:30 03/18/19 18:22 Chloride IVPB 0 units/hr ASDIR CHANTELL 0 mls/hr Titration Protocol 2 UNITS/HR Meropenem 500 mg/ Dextrose 100 mls @ 200 mls/hr 03/11/19 10:00 03/20/19 10:00 IVPB 200 mls/hr DAILY CHANTELL Administration Insulin Aspart 1 vial 03/13/19 12:00 03/20/19 06:01 Novolog Vial Sliding Scale - SQ Not Given Q6HPO [facility] Protocol Midodrine 10 mg 03/02/19 14:00 03/19/19 18:31 Proamatine - PO 10 mg TID-MID CHANTELL Administration Multivitamins/Minerals/Vitamin C 1 tab 02/22/19 10:00 03/20/19 11:03 Tab-A-Vit - PO 1 tab DAILY CHANTELL Administration Pantoprazole Sodium 40 mg 03/14/19 22:00 03/20/19 10:02 Protonix Iv IVPUSH 40 mg BID CHANTELL Administration Impression 1. ESRD 2. gangrene 3. DM 4. hyperlipidemia 5. HTN 6. gout 7. proteinuria 8. hypotension 9. sepsis 10. resp failure 11. GI bleed Plan - HD tomorrow - replace potassium - monitor pulse ox - cont ICU management - cont wound care - 3 k bath on hd
[2019-03-20] MEDS ORDERED: SODIUM CHLORIDE 250 ML IV PRN (11:13)
[2019-03-20] MEDS: MIDODRINE HCL 5 MG TABLET PO SCH ×3 (11:28→18:59)
[2019-03-20] MEDS: NOREPINEPHRINE BITARTRATE 8,000 MCG in DEXTROSE 5%-WATER - 492 ML IV SCH (11:32)
--- NOTE | 2019-03-20 11:42 | PN ---
Progress Note, Physician History of Present Illness: UNRESPONSIVE ON VENTILATOR TEMPS REMAIN DOWN AFEBRILE HYPOTENSIVE ON PRESSORS AFEBRILE WBC REMAINS ELEVATED - Current Medication List Current Medications: Active Medications Acetaminophen (Ofirmev Injection -) 1,000 mg IVPB Q6H PRN PRN Reason: FEVER Last Admin: 03/12/19 01:54 Dose: 1,000 mg Amino Acids (Prosource No Carb Liquid Pkt) 30 ml PO TID CHANTELL Last Admin: 03/20/19 06:10 Dose: 30 ml Apixaban (Eliquis -) 2.5 mg PO BID CHANTELL Last Admin: 03/20/19 11:02 Dose: 2.5 mg Atorvastatin Calcium (Lipitor -) 20 mg PO HS CHANTELL Last Admin: 03/19/19 21:18 Dose: 20 mg Collagenase (Santyl -) 1 applic TP DAILY CHANTELL; Protocol Last Admin: 03/20/19 10:03 Dose: 1 applic Epoetin Jose (Procrit -) 12,000 unit IVPUSH ONCE ONE Stop: 03/20/19 11:31 Escitalopram Oxalate (Lexapro -) 10 mg PO DAILY CHANTELL Last Admin: 03/20/19 11:02 Dose: 10 mg Hydrocortisone Sodium Succinate (Solu-Cortef -) 100 mg IVPB Q8H-IV CHANTELL Last Admin: 03/20/19 11:02 Dose: 100 mg Norepinephrine Bitartrate 8, (000 mcg/ Dextrose) 500 mls @ 18.75 mls/hr IV ASDIR CHANTELL; Protocol Last Admin: 03/20/19 11:32 Dose: 2 mcg/min, 7.5 mls/hr Vasopressin 50 units/ Sodium (Chloride) 100 mls @ 4 mls/hr IVPB ASDIR CHANTELL; Protocol Last Titration: 03/18/19 18:22 Dose: 0 units/hr, 0 mls/hr Meropenem 500 mg/ Dextrose 100 mls @ 200 mls/hr IVPB DAILY CHANTELL Last Admin: 03/20/19 10:00 Dose: 200 mls/hr Potassium Chloride (Potassium Chloride 10 Meq Premix Ivpb -) 10 meq in 100 mls @ 100 mls/hr IVPB Q60M CHANTELL Stop: 03/20/19 13:44 Sodium Chloride (Normal Saline -) 250 mls @ 3,000 mls/hr IV PRN PRN PRN Reason: Hypotension during Dialysis Stop: 03/21/19 11:13 Insulin Aspart (Novolog Vial Sliding Scale -) 1 vial SQ Q6HPO [facility]; Protocol Last Admin: 03/20/19 11:32 Dose: Not Given Midodrine (Proamatine -) 10 mg PO TID-MID [facility] Last Admin: 03/20/19 11:28 Dose: Not Given Multivitamins/Minerals/Vitamin C (Tab-A-Vit -) 1 tab PO DAILY [facility] Last Admin: 03/20/19 11:03 Dose: 1 tab Pantoprazole Sodium (Protonix Iv) 40 mg IVPUSH BID [facility] Last Admin: 03/20/19 10:02 Dose: 40 mg - Objective Vital Signs: Vital Signs Temperature 97.2 F L 03/20/19 02:00 Pulse Rate 128 H 03/20/19 09:12 Respiratory Rate 25 H 03/20/19 07:00 Blood Pressure 114/62 03/20/19 07:00 O2 Sat by Pulse Oximetry (%) 100 03/20/19 09:12 Constitutional: Yes: No Distress Eyes: Yes: Conjunctiva Clear Cardiovascular: Yes: Regular Rate and Rhythm, S1, S2 Respiratory: Yes: Mechanically Ventilated Gastrointestinal: Yes: Normal Bowel Sounds, Soft. No: Tenderness Extremities: Yes: Other (NECROTIC FOOT ULCERS) Labs: CBC, BMP 03/20/19 05:00 03/20/19 05:00 INR, PTT INR 1.44 (0.83-1.09) H 02/22/19 05:40 Assessment/Plan SEPSIS/ SEPTIC SHOCK ESBL BACTEREMIA/ SEPSIS +BC 03/11 RESP FAILURE FEVER/LEUKOCYTOSIS CONTINUE MEROPENEM VENTILATORY/ HEMODYNAMIC SUPPORT PROGNOSIS POOR
--- NOTE | 2019-03-20 12:16 | PN ---
Teaching Attending Note Name of Resident: Fili Miller ATTENDING PHYSICIAN STATEMENT I saw and evaluated the patient. I reviewed the resident's note and discussed the case with the resident. I agree with the resident's findings and plan as documented. SUBJECTIVE: Pt seen and examined in the ICU. Remains extubated on 40% ventimask. On low dose levophed support. OBJECTIVE: Vital Signs Period Temp Pulse Resp BP Sys/Zamorano Pulse Ox Last 24 Hr 97.2 F-97.4 F 80-129 20-27 106-127/47-68 100-100 Intake & Output 03/17/19 03/18/19 03/19/19 03/20/19 23:59 23:59 23:59 23:59 Intake Total 1229.1 880 1443.4 220 Output Total 2 1 Balance 1227.1 879 1443.4 220 Weight 73.527 kg 76.459 kg 76.839 kg 76.566 kg Gen: breathing nonlabored Heart: tachycardic, regular Lung: scattered rhonchi Abd: soft, nontender Ext: no edema, malodorous CBC, BMP 03/20/19 05:00 03/20/19 05:00 Active Medications Acetaminophen (Ofirmev Injection -) 1,000 mg IVPB Q6H PRN PRN Reason: FEVER Last Admin: 03/12/19 01:54 Dose: 1,000 mg Amino Acids (Prosource No Carb Liquid Pkt) 30 ml PO TID CHANTELL Last Admin: 03/20/19 06:10 Dose: 30 ml Apixaban (Eliquis -) 2.5 mg PO BID CHANTELL Last Admin: 03/20/19 11:02 Dose: 2.5 mg Atorvastatin Calcium (Lipitor -) 20 mg PO HS CHANTELL Last Admin: 03/19/19 21:18 Dose: 20 mg Collagenase (Santyl -) 1 applic TP DAILY CHANTELL; Protocol Last Admin: 03/20/19 10:03 Dose: 1 applic Epoetin Jose (Procrit -) 12,000 unit IVPUSH ONCE ONE Stop: 03/20/19 11:31 Escitalopram Oxalate (Lexapro -) 10 mg PO DAILY CHANTELL Last Admin: 03/20/19 11:02 Dose: 10 mg Hydrocortisone Sodium Succinate (Solu-Cortef -) 100 mg IVPB Q8H-IV [facility]ANTELL Last Admin: 03/20/19 11:02 Dose: 100 mg Norepinephrine Bitartrate 8, (000 mcg/ Dextrose) 500 mls @ 18.75 mls/hr IV ASDIR CHANTELL; Protocol Last Admin: 03/20/19 11:32 Dose: 2 mcg/min, 7.5 mls/hr Vasopressin 50 units/ Sodium (Chloride) 100 mls @ 4 mls/hr IVPB ASDIR CHANTELL; Protocol Last Titration: 03/18/19 18:22 Dose: 0 units/hr, 0 mls/hr Meropenem 500 mg/ Dextrose 100 mls @ 200 mls/hr IVPB DAILY CHANTELL Last Admin: 03/20/19 10:00 Dose: 200 mls/hr Potassium Chloride (Potassium Chloride 10 Meq Premix Ivpb -) 10 meq in 100 mls @ 100 mls/hr IVPB Q60M CHANTELL Stop: 03/20/19 13:44 Sodium Chloride (Normal Saline -) 250 mls @ 3,000 mls/hr IV PRN PRN PRN Reason: Hypotension during Dialysis Stop: 03/21/19 11:13 Insulin Aspart (Novolog Vial Sliding Scale -) 1 vial SQ Q6HPO [facility]; Protocol Last Admin: 03/20/19 11:32 Dose: Not Given Midodrine (Proamatine -) 10 mg PO TID-MID [facility] Last Admin: 03/20/19 11:28 Dose: Not Given Multivitamins/Minerals/Vitamin C (Tab-A-Vit -) 1 tab PO DAILY CHANTELL Last Admin: 03/20/19 11:03 Dose: 1 tab Pantoprazole Sodium (Protonix Iv) 40 mg IVPUSH BID [facility] Last Admin: 03/20/19 10:02 Dose: 40 mg ASSESSMENT AND PLAN: Acute Hypoxic Respiratory Failure improving Pneumonia suspect Aspiration ESBL E coli Bacteremia Septic Shock Bilateral Feet Gangrene Infected Decubitus Ulcers ESRD on HD DM HTN Hyperlipidemia h/o CVA - continue antibiotics per ID - continue midodrine - IVF boluses - taper off pressors to maintain MAP >65 - monitor H/H - local wound care - HD per renal - taper FiO2 to keep SpO2 >90% - aspiration precautions - DVT prophylaxis - continue efforts to discuss medical condition and prognosis with next of kin - given overall poor condition, current medical condition, and overall poor termination clerk outcome, recommend palliative/comfort care - continue ICU monitoring critical care time spent in reviewing chart, evaluating patient and formulating plan 35 min
[2019-03-20] MEDS: KCL 10 MEQ IVPB 10 MEQ/100 ML INFUS.BAG IVPB SCH ×2 (13:07→14:00)
--- NOTE | 2019-03-20 13:09 | PN ---
Teaching Attending Note Name of Resident: Sean Stuart ATTENDING PHYSICIAN STATEMENT I saw and evaluated the patient. I reviewed the resident's note and discussed the case with the resident. I agree with the resident's findings and plan as documented. SUBJECTIVE: Patient extubated yesterday. He opens his eyes but is non-verbal. He moans and grimaces in response to painful stimuli. OBJECTIVE: Vital Signs Period Temp Pulse Resp BP Sys/Zamorano Pulse Ox Last 24 Hr 97.2 F-97.4 F 80-129 20-27 106-127/47-68 100-100 HEART: S1S2, tachycardic LUNGS: Clear ABDOMEN: Soft, non-distended, normal BS EXTREMITIES: 1+ edema, foul-smelling wounds with gangrene both feet Laboratory Results - last 24 hr 03/19/19 03/19/19 03/19/19 05:10 16:28 18:20 WBC RBC Hgb Hct MCV MCH MCHC RDW Plt Count MPV Absolute Neuts (auto) Neutrophils % Neutrophils % (Manual) 93.0 H Band Neutrophils % 0.0 Lymphocytes % Lymphocytes % (Manual) 6.0 L D Monocytes % Monocytes % (Manual) 1 L Eosinophils % Eosinophils % (Manual) 0.0 Basophils % Basophils % (Manual) 0.0 Myelocytes % (Man) 0 Promyelocytes % (Man) 0 Blast Cells % (Manual) 0 Nucleated RBC % Metamyelocytes 0 Hypochromia 0 Platelet Estimate Normal Polychromasia 0 Poikilocytosis 0 Anisocytosis 1+ Microcytosis 1+ Macrocytosis 1+ Target Cells 1+ Sodium Potassium Chloride Carbon Dioxide Anion Gap BUN Creatinine Est GFR (CKD-EPI)AfAm Est GFR (CKD-EPI)NonAf POC Glucometer 166 152 Random Glucose Calcium Phosphorus Magnesium Total Bilirubin AST ALT Alkaline Phosphatase Total Protein Albumin 03/20/19 03/20/19 03/20/19 00:18 05:00 05:00 WBC 16.5 H RBC 3.15 L Hgb 9.4 L Hct 29.0 L MCV 92.1 MCH 29.9 MCHC 32.5 RDW 19.4 H Plt Count 155 MPV 11.6 H Absolute Neuts (auto) 15.6 H Neutrophils % 94.2 H Neutrophils % (Manual) 91.0 H Band Neutrophils % 0.0 Lymphocytes % 3.6 L D Lymphocytes % (Manual) 7.0 L Monocytes % 2.1 L D Monocytes % (Manual) 2 L D Eosinophils % 0.0 Eosinophils % (Manual) 0.0 Basophils % 0.1 Basophils % (Manual) 0.0 Myelocytes % (Man) 0 Promyelocytes % (Man) 0 Blast Cells % (Manual) 0 Nucleated RBC % 0 Metamyelocytes 0 Hypochromia 0 Platelet Estimate Normal Polychromasia 0 Poikilocytosis 0 Anisocytosis 1+ Microcytosis 1+ Macrocytosis 1+ Target Cells Sodium 133 L Potassium 3.4 L Chloride 98 Carbon Dioxide 27 Anion Gap 8 BUN 28.7 H Creatinine 1.8 H Est GFR (CKD-EPI)AfAm 42.03 Est GFR (CKD-EPI)NonAf 36.27 POC Glucometer 96 Random Glucose 126 H Calcium 6.9 L* Phosphorus 2.8 Magnesium 1.9 Total Bilirubin 2.1 H AST 89 H ALT 26 Alkaline Phosphatase 786 H Total Protein 4.8 L Albumin 1.0 L 03/20/19 03/20/19 05:58 11:31 WBC RBC Hgb Hct MCV MCH MCHC RDW Plt Count MPV Absolute Neuts (auto) Neutrophils % Neutrophils % (Manual) Band Neutrophils % Lymphocytes % Lymphocytes % (Manual) Monocytes % Monocytes % (Manual) Eosinophils % Eosinophils % (Manual) Basophils % Basophils % (Manual) Myelocytes % (Man) Promyelocytes % (Man) Blast Cells % (Manual) Nucleated RBC % Metamyelocytes Hypochromia Platelet Estimate Polychromasia Poikilocytosis Anisocytosis Microcytosis Macrocytosis Target Cells Sodium Potassium Chloride Carbon Dioxide Anion Gap BUN Creatinine Est GFR (CKD-EPI)AfAm Est GFR (CKD-EPI)NonAf POC Glucometer 121 119 Random Glucose Calcium Phosphorus Magnesium Total Bilirubin AST ALT Alkaline Phosphatase Total Protein Albumin Current Medications Generic Name Dose Route Start Last Admin Trade Name Freq PRN Reason Stop Dose Admin Acetaminophen 1,000 mg 03/11/19 04:18 03/12/19 01:54 Ofirmev Injection - IVPB 1,000 mg Q6H PRN Administration FEVER Amino Acids 30 ml 02/21/19 22:00 03/20/19 06:10 Prosource No Carb Liquid Pkt PO 30 ml TID CHANTELL Administration Apixaban 2.5 mg 02/21/19 22:00 03/20/19 11:02 Eliquis - PO 2.5 mg BID CHANTELL Administration Atorvastatin Calcium 20 mg 02/21/19 22:00 03/19/19 21:18 Lipitor - PO 20 mg HS CHANTELL Administration Collagenase 1 applic 02/22/19 10:00 03/20/19 10:03 Santyl - TP 1 applic DAILY CHANTELL Administration Protocol Epoetin Jose 12,000 unit 03/20/19 11:30 Procrit - IVPUSH 03/20/19 11:31 ONCE ONE Escitalopram Oxalate 10 mg 02/22/19 10:00 03/20/19 11:02 Lexapro - PO 10 mg DAILY CHANTELL Administration Hydrocortisone Sodium Succinate 100 mg 03/11/19 11:00 03/20/19 11:02 Solu-Cortef - IVPB 100 mg Q8H-IV CHANTELL Administration Norepinephrine Bitartrate 8, 500 mls @ 18.75 mls/hr 03/11/19 05:58 03/20/19 11:32 000 mcg/ Dextrose IV 2 mcg/min ASDIR CHANTELL 7.5 mls/hr Administration Protocol 5 MCG/MIN Vasopressin 50 units/ Sodium 100 mls @ 4 mls/hr 03/11/19 06:30 03/18/19 18:22 Chloride IVPB 0 units/hr ASDIR CHANTELL 0 mls/hr Titration Protocol 2 UNITS/HR Meropenem 500 mg/ Dextrose 100 mls @ 200 mls/hr 03/11/19 10:00 03/20/19 10:00 IVPB 200 mls/hr DAILY CHANTELL Administration Potassium Chloride 10 meq in 100 mls @ 100 mls/hr 03/20/19 11:45 03/20/19 13: 07 Potassium Chloride 10 Meq Premix Ivpb - IVPB 03/20/19 13:44 100 mls/hr Q60M CHANTELL Administration Sodium Chloride 250 mls @ 3,000 mls/hr 03/20/19 11:13 Normal Saline - IV 03/21/19 11:13 PRN PRN Hypotension during Dialysis Insulin Aspart 1 vial 03/13/19 12:00 03/20/19 11:32 Novolog Vial Sliding Scale - SQ Not Given Q6HPO CHANTELL Protocol Midodrine 10 mg 03/02/19 14:00 03/20/19 11:28 Proamatine - PO Not Given TID-MID CHANTELL Multivitamins/Minerals/Vitamin C 1 tab 02/22/19 10:00 03/20/19 11:03 Tab-A-Vit - PO 1 tab DAILY CHANTELL Administration Pantoprazole Sodium 40 mg 03/14/19 22:00 03/20/19 10:02 Protonix Iv IVPUSH 40 mg BID CHANTELL Administration ASSESSMENT AND PLAN: This is a 73 year old man with a history of HTN, hyperlipidemia, type 2 DM, COPD , ESRD, CVA, PAD, BPH, gout, recent sepsis secondary to infected foot ulcers with gangrene who was sent to the ED from [facility] for evaluation of altered mental status and poor PO intake. 1. Acute hypoxic respiratory failure - Improving - Extubated 03/19 2. Septic shock - Pressors being weaned - Remains on Levophed - Continue midodrine, SoluCortef, IV fluid 3. ESBL E. coli bacteremia, probable aspiration pneumonia, infected diabetic foot ulcers with gangrene, infected unstageable sacral pressure ulcer - Continue Merrem - Continue wound care 4. ESRD - Continue HD 5. Type 2 DM - Continue Novolog sliding scale 6. HTN - Patient remains on pressors for septic shock 7. Hyperlipidemia - Continue Lipitor 8. Anemia secondary to ESRD - Continue Procrit 9. Hyponatremia 10. Hypokalemia - Replete potassium 11. BPH 12. History of CVA 13. History of atrial fibrillation - Continue Eliquis 14. COPD 15. PAD 16. Severe protein calorie malnutrition - Continue Nepro NGT feeds - Continue Prosource 17. DVT prophylaxis - On Eliquis 18. Stress ulcer prophylaxis - On Protonix 19. Disposition - Continue ICU care - Family meeting via conference call to discuss decision making, prognosis, goals of care, etc scheduled for tomorrow
[2019-03-20] MEDS: MORPHINE SULFATE 2 MG/ML VIAL IVPUSH PRN (23:20)
[2019-03-20] MEDS: ATORVASTATIN CA 20 MG TABLET (FP) PO SCH (23:23)
[2019-03-21] MEDS: INSULIN SLIDING SCALE (NOVOLOG) 1 VIAL SQ SCH ×5 (00:49→23:13)
[2019-03-21] MEDS: ACETAMINOPHEN 1000 MG/100 ML VIAL (NON FORMULARY) IVPB PRN (01:30)
[2019-03-21] MEDS: HYDROCORTISONE SOD SUCCINATE 100 MG/2 ML VIAL IVPB SCH ×4 (01:30→23:12)
[2019-03-21] MEDS: NOREPINEPHRINE BITARTRATE 8,000 MCG in DEXTROSE 5%-WATER - 492 ML IV SCH (06:11)
[2019-03-21] MEDS: AMINO ACIDS/PROTEIN HYDROLYS 30 ML LIQUID.PKT PO SCH ×3 (06:17→21:09)
[2019-03-21] MEDS: MORPHINE SULFATE 2 MG/ML VIAL IVPUSH PRN ×2 (06:19→21:10)
--- NOTE | 2019-03-21 06:38 | PN ---
Physical Exam: SUBJECTIVE: Patient seen and examined in ICU. remains extubated and off pressors >24h. GOC/ethics meeting ongoing OBJECTIVE: Vital Signs Period Temp Pulse Resp BP Sys/Zamorano Pulse Ox Last 24 Hr 97.2 F-98.6 F 70-131 17-26 92-116/48-76 100 GENERAL: lethargic, drowsy, intermittently crying in pain. thin appearing, decreased muscle mass and fat EARS, NOSE, THROAT: dry mucous membranes. LUNGS: CTAB HEART: irregularly irregular s1s2 normal ABDOMEN: Soft, NTND normoactive bowel sounds, ulcer present on sacrum unstagable with foul discharge, scrotum has ulcer no discharge MUSCULOSKELETAL: Normal range of motion at all joints. No bony deformities or tenderness. No CVA tenderness. UPPER EXTREMITIES: 2+ pulses, warm, well-perfused. +edema LOWER EXTREMITIES: b/l wet gangrene with fouls smelling discharge SKIN: Warm, dry, Neuo: lethargic, responsive to pain. Laboratory Results - last 24 hr 03/19/19 03/20/19 03/20/19 16:51 05:00 05:00 WBC 16.5 H RBC 3.15 L Hgb 9.4 L Hct 29.0 L MCV 92.1 MCH 29.9 MCHC 32.5 RDW 19.4 H Plt Count 155 MPV 11.6 H Absolute Neuts (auto) 15.6 H Neutrophils % 94.2 H Neutrophils % (Manual) 91.0 H Band Neutrophils % 0.0 Lymphocytes % 3.6 L D Lymphocytes % (Manual) 7.0 L Monocytes % 2.1 L D Monocytes % (Manual) 2 L D Eosinophils % 0.0 Eosinophils % (Manual) 0.0 Basophils % 0.1 Basophils % (Manual) 0.0 Myelocytes % (Man) 0 Promyelocytes % (Man) 0 Blast Cells % (Manual) 0 Nucleated RBC % 0 Metamyelocytes 0 Hypochromia 0 Platelet Estimate Normal Polychromasia 0 Poikilocytosis 0 Anisocytosis 1+ Microcytosis 1+ Macrocytosis 1+ Sodium 133 L Potassium 3.4 L Chloride 98 Carbon Dioxide 27 Anion Gap 8 BUN 28.7 H Creatinine 1.8 H Est GFR (CKD-EPI)AfAm 42.03 Est GFR (CKD-EPI)NonAf 36.27 POC Glucometer Random Glucose 126 H Calcium 6.9 L* Phosphorus 2.8 Magnesium 1.9 Total Bilirubin 2.1 H AST 89 H ALT 26 Alkaline Phosphatase 786 H Total Protein 4.8 L Albumin 1.0 L Hep Bs Antigen Negative Hep C Ab Diagnostic <0.1 03/20/19 03/20/19 03/20/19 11:31 17:46 21:02 WBC RBC Hgb Hct MCV MCH MCHC RDW Plt Count MPV Absolute Neuts (auto) Neutrophils % Neutrophils % (Manual) Band Neutrophils % Lymphocytes % Lymphocytes % (Manual) Monocytes % Monocytes % (Manual) Eosinophils % Eosinophils % (Manual) Basophils % Basophils % (Manual) Myelocytes % (Man) Promyelocytes % (Man) Blast Cells % (Manual) Nucleated RBC % Metamyelocytes Hypochromia Platelet Estimate Polychromasia Poikilocytosis Anisocytosis Microcytosis Macrocytosis Sodium Potassium Chloride Carbon Dioxide Anion Gap BUN Creatinine Est GFR (CKD-EPI)AfAm Est GFR (CKD-EPI)NonAf POC Glucometer 119 104 125 Random Glucose Calcium Phosphorus Magnesium Total Bilirubin AST ALT Alkaline Phosphatase Total Protein Albumin Hep Bs Antigen Hep C Ab Diagnostic Active Medications Generic Name Dose Route Start Last Admin Trade Name Freq PRN Reason Stop Dose Admin Amino Acids 30 ml 02/21/19 22:00 03/21/19 06:17 Prosource No Carb Liquid Pkt PO 30 ml TID [facility]ANTELL Administration Apixaban 2.5 mg 02/21/19 22:00 03/20/19 23:23 Eliquis - PO 2.5 mg BID CHANTELL Administration Atorvastatin Calcium 20 mg 02/21/19 22:00 03/20/19 23:23 Lipitor - PO 20 mg HS CHANTELL Administration Collagenase 1 applic 02/22/19 10:00 03/20/19 10:03 Santyl - TP 1 applic DAILY [facility]ANTELL Administration Protocol Epoetin Jose 12,000 unit 03/20/19 11:30 Procrit - IVPUSH 03/20/19 11:31 ONCE ONE Escitalopram Oxalate 10 mg 02/22/19 10:00 03/20/19 11:02 Lexapro - PO 10 mg DAILY [facility] Administration Hydrocortisone Sodium Succinate 100 mg 03/11/19 11:00 03/21/19 01:30 Solu-Cortef - IVPB 100 mg Q8H-IV [facility]ANTE[facility] Administration Norepinephrine Bitartrate 8, 500 mls @ 18.75 mls/hr 03/11/19 05:58 03/21/19 06:11 000 mcg/ Dextrose IV 0 mcg/min ASDIR CHANTELL 0 mls/hr Titration Protocol 5 MCG/MIN Meropenem 500 mg/ Dextrose 100 mls @ 200 mls/hr 03/11/19 10:00 03/20/19 10:00 IVPB 200 mls/hr DAILY [facility] Administration Sodium Chloride 250 mls @ 3,000 mls/hr 03/20/19 11:13 Normal Saline - IV 03/21/19 11:13 PRN PRN Hypotension during Dialysis Insulin Aspart 1 vial 03/13/19 12:00 03/21/19 06:10 Novolog Vial Sliding Scale - SQ Not Given Q6HPO [facility] Protocol Midodrine 10 mg 03/02/19 14:00 03/20/19 18:59 Proamatine - PO 10 mg TID-MID CH[facility] Administration Morphine Sulfate 2 mg 03/20/19 23:10 03/21/19 06:19 Morphine Sulfate IVPUSH 2 mg Q6H PRN Administration PAIN LEVEL 6-10 Multivitamins/Minerals/Vitamin C 1 tab 02/22/19 10:00 03/20/19 11:03 Tab-A-Vit - PO 1 tab DAILY [facility] Administration Pantoprazole Sodium 40 mg 03/14/19 22:00 03/20/19 23:23 Protonix Iv IVPUSH 40 mg BID CHANTELL Administration ASSESSMENT/PLAN: 73 yo M PMH dementia, CVA, DM, COPD, ESRD, gout, HTN, HLP, recent admission 01/31- 02/19 during which he was treated for sepsis due to infected b/l feet ulcers/ gangrene. He was sent form NH due to poor po intake, and worsening of ulcers. Now in septic shock 2/2 DM gangrenous B/L feet infx, Infected sacral decub and scrotal ulcer, and GN bacteremia , requiring ICU and pressors #septic shock 2/2 DM gangrenous B/L feet infx, Infected sacral decub and scrotal ulcer, and GN bacteremia (proteus, prevotella, ecoli esbl) c/b hypoxic respiratory failure 2/2 aspiration PNA requiring intubation/sedation - resolving. remains extubated and off pressors >24h, afebrile now for >72hr. + Leukocytosis. maintaining SpO2 100% w/ 40% VM -old cx with E coli, ESBL, MRSA, and VRE. -contact isolation for MDRO -s/p Vanc and Zosyn in the ED, Gentamicin x1, Meropenem x2 in ICU -Bcx 02/21/19 growing GN cher - proteus and prevotella -ucx neg -wound cx E coli, morganella -Bcx 02/23/19 neg -03/11/19 sputum cx MRSA, pseudomonas A,ecoli esbl, acinetobacter ; bcx ecoli esbl bacteremia. -MDRO: strict contact isolation -ID consulted, Rangel -palliative care consulted -s/p CTX 2g/flagyl, c/w Meropenem day #27 total abx, ID recs appreciated. -s/p vanc and gentamicin x1 03/13/19 per ID -Aspiration precautions. -maintain MAP>65 -vascular surgery consulted, Dr harry, for wound care. amputation indicated, but family not amenable. cont GOC #Seizure-like myoclonus 03/12/19 - resolved w/ ativan 1mg and loaded w/ keppra. see Dr Overton note for further details c/w keppra 250 bid #ESRD on HD (MWF) -nephro consulted (Dr. Henriquez) -HD as per nephro ned held by nephro for low phos. #Acute on chronic anemia likely 2/2 ESRD and sepsis -monitor H/H -H/H 6.9...9.6 s/p 2u prbc, transfuse prn to maintain hgb >7 #Transaminitis - likely 2/2 septic shock avoid toxic drugs #Severe protein calorie malnutrition -albumin 1.1, prealbumin 3.5 -thin appearing, decreased muscle mass and fat -decreased overall PO intake -Magic cup, Ensure pudding for increased density of nutritional intake. Now on NGT #COPD -keep SpO2>90% -Duonebs q6h PRN #Dm ISS BGM ACHS #H/o hypotension : c/w home midodrine monitor vitals # h/o afib c/w elequis 2.5 bid #FEN -Not on any standing fluids -replete prn -NGT on tube feeds #Prophylaxis -Eliquis 2.5mg BID -Protonix IV while on AC and pressors -bacid #Disposition -full code -GOC/ethics consult placed, as we have attempted multiple times to contact daughter who has not been responsive and in the past has not been amenable to to allow for source control/amputation and standard of care. given patients inability to make decisions for himself and daughter unwillingness pt will likely cont to suffer w/o improvement and has spoor prognosis. multiple times various members of primary team and ICU team have tried contacting daughter for GOC/ethics meeting. Resident Dr Milton was able to make contact w/ daughter but no meaningful discussion was able to take place, please see Dr Milton note for further detail. brother has been contacted and has spoken w/ palliative. daughter will not be coming, This may constitute pt abandonment. palliative tried contacting pt other children/NOK, letters were sent out, but no response. Family meeting today w/ father who is next on surrogate order for [place], siblings will attend meeting as well -given overall poor prognosis, conservative measures and comfort care may be appropriate -ICU monitoring Visit type - Emergency Visit Emergency Visit: Yes ED Registration Date: 02/21/19 Care time: The patient presented to the Emergency Department on the above date and was hospitalized for further evaluation of their emergent condition. - New Patient This patient is new to me today: Yes Date on this admission: 03/21/19 - Critical Care Critical Care patient: Yes Total Critical Care Time (in minutes): 40 Critical Care Statement: The care of this patient involved high complexity decision making to prevent further life threatening deterioration of the patient 's condition and/or to evaluate & treat vital organ system(s) failure or risk of failure.
[2019-03-21] MEDS ORDERED: PT OWN MED DRAWER 7, Y5N ONE ×3 (07:50→17:27)
[2019-03-21 08:47] LABS: HEMATOCRIT 28.5 % (35.4-49); HEMOGLOBIN 9.1 GM/dL (11.7-16.9); MCH 29.4 pg (25.7-33.7); MCHC 31.8 g/dl (32.0-35.9); MEAN CELL VOLUME 92.6 fl (80-96); MEAN PLT VOLUME 11.6 fl (7.5-11.1); PLATELET COUNT 143 K/MM3 (134-434); RBC 3.08 M/mm3 (4.00-5.60); RDW 19.7 % (11.9-15.9); WHITE BLOOD COUNT 16.8 K/mm3 (4.0-10.0)
[2019-03-21] MEDS: ESCITALOPRAM OXALATE 10 MG TABLET (FP) PO SCH (09:07)
[2019-03-21] MEDS: MIDODRINE HCL 5 MG TABLET PO SCH ×4 (09:07→23:12)
[2019-03-21] MEDS: APIXABAN 2.5 MG TABLET PO SCH ×2 (09:07→21:10)
[2019-03-21] MEDS: MULTIVITAMINS (DAILY MVI) TABLET (FP) PO SCH (09:07)
[2019-03-21] MEDS: COLLAGENASE CLOSTRIDIUM HIST. 30 GRAMS TUBE TP SCH (09:08)
[2019-03-21] MEDS: MEROPENEM 500 MG in DEXTROSE 5%-WATER 100 ML IVPB SCH (09:08)
[2019-03-21] MEDS: PANTOPRAZOLE SODIUM 40 MG VIAL IVPUSH SCH ×2 (09:08→21:09)
[2019-03-21 09:12] LABS: BLOOD UREA NITROGEN 37.2 mg/dL (7-18); POTASSIUM 3.5 mmol/L (3.5-5.1)
[2019-03-21 09:33] LABS: CALCIUM 6.6 mg/dL (8.5-10.1)
[2019-03-21] MEDS ORDERED: EPOETIN ALFA 3,000 UNIT/1 ML ML IVPUSH ONE (10:45)
[2019-03-21] MEDS ORDERED: EPOETIN ALFA 10,000 UNIT/1 ML VIAL IVPUSH ONE (11:13)
--- NOTE | 2019-03-21 11:37 | PN ---
Teaching Attending Note Name of Resident: Mathew Adorno ATTENDING PHYSICIAN STATEMENT I saw and evaluated the patient. I reviewed the resident's note and discussed the case with the resident. I agree with the resident's findings and plan as documented. SUBJECTIVE: Patient's eyes open. Moaning. Responds to pain. OBJECTIVE: Vital Signs Period Temp Pulse Resp BP Sys/Zamorano Pulse Ox Last 24 Hr 97.2 F-98.6 F 70-129 17-26 95-117/56-76 100-100 HEART: S1S2, tachycardic LUNGS: Clear ABDOMEN: Soft, non-distended, normal BS EXTREMITIES: 1+ edema, foul-smelling wounds with gangrene both feet Laboratory Results - last 24 hr 03/19/19 03/20/19 03/20/19 16:51 17:46 21:02 WBC RBC Hgb Hct MCV MCH MCHC RDW Plt Count MPV Sodium Potassium Chloride Carbon Dioxide Anion Gap BUN Creatinine Est GFR (CKD-EPI)AfAm Est GFR (CKD-EPI)NonAf POC Glucometer 104 125 Random Glucose Calcium Hep Bs Antigen Negative Hep C Ab Diagnostic <0.1 03/21/19 03/21/19 03/21/19 05:57 07:30 07:30 WBC 16.8 H RBC 3.08 L Hgb 9.1 L Hct 28.5 L MCV 92.6 MCH 29.4 MCHC 31.8 L RDW 19.7 H Plt Count 143 MPV 11.6 H Sodium 133 L Potassium 3.5 Chloride 98 Carbon Dioxide 27 Anion Gap 8 BUN 37.2 H Creatinine 2.0 H Est GFR (CKD-EPI)AfAm 37.01 Est GFR (CKD-EPI)NonAf 31.93 POC Glucometer 128 Random Glucose 119 H Calcium 6.6 L* Hep Bs Antigen Hep C Ab Diagnostic 03/21/19 11:28 WBC RBC Hgb Hct MCV MCH MCHC RDW Plt Count MPV Sodium Potassium Chloride Carbon Dioxide Anion Gap BUN Creatinine Est GFR (CKD-EPI)AfAm Est GFR (CKD-EPI)NonAf POC Glucometer 145 Random Glucose Calcium Hep Bs Antigen Hep C Ab Diagnostic Current Medications Generic Name Dose Route Start Last Admin Trade Name Freq PRN Reason Stop Dose Admin Amino Acids 30 ml 02/21/19 22:00 03/21/19 06:17 Prosource No Carb Liquid Pkt PO 30 ml TID CHANTELL Administration Apixaban 2.5 mg 02/21/19 22:00 03/21/19 09:07 Eliquis - PO 2.5 mg BID CHANTELL Administration Atorvastatin Calcium 20 mg 02/21/19 22:00 03/20/19 23:23 Lipitor - PO 20 mg HS CHANTELL Administration Collagenase 1 applic 02/22/19 10:00 03/21/19 09:08 Santyl - TP 1 applic DAILY CHANTELL Administration Protocol Escitalopram Oxalate 10 mg 02/22/19 10:00 03/21/19 09:07 Lexapro - PO 10 mg DAILY [facility]ANTELL Administration Hydrocortisone Sodium Succinate 100 mg 03/11/19 11:00 03/21/19 09:07 Solu-Cortef - IVPB 100 mg Q8H-IV [facility]ANTELL Administration Meropenem 500 mg/ Dextrose 100 mls @ 200 mls/hr 03/11/19 10:00 03/21/19 09:08 IVPB 200 mls/hr DAILY [facility]ANTELL Administration Insulin Aspart 1 vial 03/13/19 12:00 03/21/19 06:10 Novolog Vial Sliding Scale - SQ Not Given Q6HPO [facility] Protocol Midodrine 10 mg 03/02/19 14:00 03/21/19 09:07 Proamatine - PO 10 mg TID-MID CHANTELL Administration Morphine Sulfate 2 mg 03/21/19 10:44 Morphine Sulfate IVPUSH Q4H PRN PAIN LEVEL 6-10 Multivitamins/Minerals/Vitamin C 1 tab 02/22/19 10:00 03/21/19 09:07 Tab-A-Vit - PO 1 tab DAILY CHANTELL Administration Pantoprazole Sodium 40 mg 03/14/19 22:00 03/21/19 09:08 Protonix Iv IVPUSH 40 mg BID CHANTELL Administration ASSESSMENT AND PLAN: This is a 73 year old man with a history of HTN, hyperlipidemia, type 2 DM, COPD , ESRD, CVA, PAD, BPH, gout, recent sepsis secondary to infected foot ulcers with gangrene who was sent to the ED from [facility] for evaluation of altered mental status and poor PO intake. 1. Acute hypoxic respiratory failure - Extubated 03/19 2. Septic shock - Off pressors - Continue midodrine, SoluCortef 3. ESBL E. coli bacteremia, probable aspiration pneumonia, infected diabetic foot ulcers with gangrene, infected unstageable sacral pressure ulcer - Continue Merrem - Continue wound care 4. ESRD - Continue HD 5. Type 2 DM - Continue Novolog sliding scale 6. HTN - BP meds held secondary to hypotension/shock 7. Hyperlipidemia - Continue Lipitor 8. Anemia secondary to ESRD - Continue Procrit 9. Hyponatremia 10. Hypokalemia - Replete potassium as needed 11. BPH 12. History of CVA 13. History of atrial fibrillation - Continue Eliquis 14. COPD 15. PAD 16. Severe protein calorie malnutrition - Continue Nepro NGT feeds - Continue Prosource 17. DVT prophylaxis - On Eliquis 18. Stress ulcer prophylaxis - On Protonix 19. Disposition - Ok for transfer to telemetry - Family meeting via conference call to discuss decision making, prognosis, goals of care, etc scheduled for today
--- NOTE | 2019-03-21 11:49 | PN ---
Progress Note, Physician History of Present Illness: EXTUBATED V ON VENTIMASK LETHARGIC DOES NOT FOLLOW COMMANDS TEMPS REMAIN DOWN AFEBRILE OFF PRESSORS WBC REMAINS ELEVATED - Current Medication List Current Medications: Active Medications Amino Acids (Prosource No Carb Liquid Pkt) 30 ml PO TID [facility] Last Admin: 03/21/19 06:17 Dose: 30 ml Apixaban (Eliquis -) 2.5 mg PO BID [facility] Last Admin: 03/21/19 09:07 Dose: 2.5 mg Atorvastatin Calcium (Lipitor -) 20 mg PO HS [facility]ANTELL Last Admin: 03/20/19 23:23 Dose: 20 mg Collagenase (Santyl -) 1 applic TP DAILY [facility]; Protocol Last Admin: 03/21/19 09:08 Dose: 1 applic Escitalopram Oxalate (Lexapro -) 10 mg PO DAILY [facility] Last Admin: 03/21/19 09:07 Dose: 10 mg Hydrocortisone Sodium Succinate (Solu-Cortef -) 100 mg IVPB Q8H-IV [facility]TE[facility] Last Admin: 03/21/19 09:07 Dose: 100 mg Meropenem 500 mg/ Dextrose 100 mls @ 200 mls/hr IVPB DAILY [facility]ANTELL Last Admin: 03/21/19 09:08 Dose: 200 mls/hr Insulin Aspart (Novolog Vial Sliding Scale -) 1 vial SQ Q6HPO [facility]; Protocol Last Admin: 03/21/19 06:10 Dose: Not Given Midodrine (Proamatine -) 10 mg PO TID-MID [facility] Last Admin: 03/21/19 09:07 Dose: 10 mg Morphine Sulfate (Morphine Sulfate) 2 mg IVPUSH Q4H PRN PRN Reason: PAIN LEVEL 6-10 Multivitamins/Minerals/Vitamin C (Tab-A-Vit -) 1 tab PO DAILY [facility]ANTE[facility] Last Admin: 03/21/19 09:07 Dose: 1 tab Pantoprazole Sodium (Protonix Iv) 40 mg IVPUSH BID CHANTELL Last Admin: 03/21/19 09:08 Dose: 40 mg - Objective Vital Signs: Vital Signs Temperature 98.6 F 03/21/19 06:00 Pulse Rate 88 03/21/19 08:00 Respiratory Rate 22 H 03/21/19 08:00 Blood Pressure 117/70 03/21/19 08:00 O2 Sat by Pulse Oximetry (%) 100 03/21/19 08:02 Constitutional: Yes: No Distress Eyes: Yes: Conjunctiva Clear Cardiovascular: Yes: Regular Rate and Rhythm, S1, S2 Respiratory: Yes: Diminished Gastrointestinal: Yes: Normal Bowel Sounds, Soft. No: Tenderness Extremities: Yes: Other (+ NECROTIC FOOT ULCERS) Labs: CBC, BMP 03/21/19 07:30 03/21/19 07:30 INR, PTT INR 1.44 (0.83-1.09) H 02/22/19 05:40 Assessment/Plan SEPSIS/ SEPTIC SHOCK ESBL BACTEREMIA/ SEPSIS +BC 03/11 RESP FAILURE FEVER/LEUKOCYTOSIS CONTINUE MEROPENEM VENTILATORY/ HEMODYNAMIC SUPPORT PROGNOSIS POOR
--- NOTE | 2019-03-21 12:05 | PN ---
Teaching Attending Note Name of Resident: Gualberto Eagle ATTENDING PHYSICIAN STATEMENT I saw and evaluated the patient. I reviewed the resident's note and discussed the case with the resident. I agree with the resident's findings and plan as documented. SUBJECTIVE: Pt seen and examined in the ICU. Pressors tapered off yesterday. Remains poorly responsive, intermittently groaning. OBJECTIVE: Vital Signs Period Temp Pulse Resp BP Sys/Zamorano Pulse Ox Last 24 Hr 97.2 F-98.8 F 70-129 17-26 95-122/56-76 100-100 Intake & Output 03/18/19 03/19/19 03/20/19 03/21/19 23:59 23:59 23:59 23:59 Intake Total 880 1443.4 440 Output Total 1 Balance 879 1443.4 440 Weight 76.459 kg 76.839 kg 76.566 kg 75.1 kg Gen: poorly responsive Heart: RRR Lung: scattered rhonchi Abd: soft, nontender Ext: wrapped, malodorous CBC, BMP 03/21/19 07:30 03/21/19 07:30 Active Medications Amino Acids (Prosource No Carb Liquid Pkt) 30 ml PO TID CHANTELL Last Admin: 03/21/19 06:17 Dose: 30 ml Apixaban (Eliquis -) 2.5 mg PO BID [facility]ANTE[facility] Last Admin: 03/21/19 09:07 Dose: 2.5 mg Atorvastatin Calcium (Lipitor -) 20 mg PO HS CHANTELL Last Admin: 03/20/19 23:23 Dose: 20 mg Collagenase (Santyl -) 1 applic TP DAILY CHANTELL; Protocol Last Admin: 03/21/19 09:08 Dose: 1 applic Escitalopram Oxalate (Lexapro -) 10 mg PO DAILY [facility]ANTELL Last Admin: 03/21/19 09:07 Dose: 10 mg Hydrocortisone Sodium Succinate (Solu-Cortef -) 100 mg IVPB Q8H-IV [facility]ANTE[facility] Last Admin: 03/21/19 09:07 Dose: 100 mg Meropenem 500 mg/ Dextrose 100 mls @ 200 mls/hr IVPB DAILY [facility]ANTELL Last Admin: 03/21/19 09:08 Dose: 200 mls/hr Insulin Aspart (Novolog Vial Sliding Scale -) 1 vial SQ Q6HPO [facility]; Protocol Last Admin: 03/21/19 06:10 Dose: Not Given Midodrine (Proamatine -) 10 mg PO TID-MID [facility] Last Admin: 03/21/19 09:07 Dose: 10 mg Morphine Sulfate (Morphine Sulfate) 2 mg IVPUSH Q4H PRN PRN Reason: PAIN LEVEL 6-10 Multivitamins/Minerals/Vitamin C (Tab-A-Vit -) 1 tab PO DAILY [facility] Last Admin: 03/21/19 09:07 Dose: 1 tab Pantoprazole Sodium (Protonix Iv) 40 mg IVPUSH BID [facility] Last Admin: 03/21/19 09:08 Dose: 40 mg ASSESSMENT AND PLAN: Acute Hypoxic Respiratory Failure improving Pneumonia suspect Aspiration ESBL E coli Bacteremia Septic Shock Bilateral Feet Gangrene Infected Decubitus Ulcers ESRD on HD DM HTN Hyperlipidemia h/o CVA - continue antibiotics per ID - continue midodrine - IVF boluses as needed - monitor off pressors, maintain MAP >65 - monitor H/H - local wound care - HD per renal - taper FiO2 to keep SpO2 >90% - aspiration precautions - DVT prophylaxis - continue efforts to discuss medical condition and prognosis with next of kin - given overall poor condition, current medical condition, and overall poor fdc outcome, recommend palliative/comfort care - can monitor on floor critical care time spent in reviewing chart, evaluating patient and formulating plan 35 min
--- NOTE | 2019-03-21 13:48 | PN ---
Progress Note, Physician History of Present Illness: Pt seen and examined at bedside. He is tolerating HD. He remains extubated. - Current Medication List Current Medications: Active Medications Amino Acids (Prosource No Carb Liquid Pkt) 30 ml PO TID [facility] Last Admin: 03/21/19 06:17 Dose: 30 ml Apixaban (Eliquis -) 2.5 mg PO BID [facility] Last Admin: 03/21/19 09:07 Dose: 2.5 mg Atorvastatin Calcium (Lipitor -) 20 mg PO HS [facility] Last Admin: 03/20/19 23:23 Dose: 20 mg Collagenase (Santyl -) 1 applic TP DAILY [facility]ANTELL; Protocol Last Admin: 03/21/19 09:08 Dose: 1 applic Escitalopram Oxalate (Lexapro -) 10 mg PO DAILY [facility] Last Admin: 03/21/19 09:07 Dose: 10 mg Hydrocortisone Sodium Succinate (Solu-Cortef -) 100 mg IVPB Q8H-IV [facility] Last Admin: 03/21/19 09:07 Dose: 100 mg Meropenem 500 mg/ Dextrose 100 mls @ 200 mls/hr IVPB DAILY [facility] Last Admin: 03/21/19 09:08 Dose: 200 mls/hr Insulin Aspart (Novolog Vial Sliding Scale -) 1 vial SQ Q6HPO [facility]; Protocol Last Admin: 03/21/19 12:28 Dose: Not Given Midodrine (Proamatine -) 10 mg PO TID-MID [facility] Last Admin: 03/21/19 09:07 Dose: 10 mg Morphine Sulfate (Morphine Sulfate) 2 mg IVPUSH Q4H PRN PRN Reason: PAIN LEVEL 6-10 Multivitamins/Minerals/Vitamin C (Tab-A-Vit -) 1 tab PO DAILY [facility] Last Admin: 03/21/19 09:07 Dose: 1 tab Pantoprazole Sodium (Protonix Iv) 40 mg IVPUSH BID [facility] Last Admin: 03/21/19 09:08 Dose: 40 mg - Objective Vital Signs: Vital Signs Temperature 98.8 F 03/21/19 11:25 Pulse Rate 76 03/21/19 13:30 Respiratory Rate 18 03/21/19 13:30 Blood Pressure 113/74 03/21/19 13:30 O2 Sat by Pulse Oximetry (%) 100 03/21/19 08:02 Constitutional: Yes: Calm Eyes: Yes: Conjunctiva Clear HENT: Yes: Atraumatic Neck: Yes: Supple Cardiovascular: Yes: S1, S2 Respiratory: Yes: On Nasal O2 Gastrointestinal: Yes: Normal Bowel Sounds, Soft Genitourinary: Yes: Incontinence Musculoskeletal: Yes: Muscle Weakness Edema: Yes Edema: LLE: Trace, RLE: Trace Wound/Incision: Yes: Other (odor from wounds) Neurological: Yes: Confusion Labs: CBC, BMP 03/21/19 07:30 03/21/19 07:30 INR, PTT INR 1.44 (0.83-1.09) H 02/22/19 05:40 Problem List - Problems (1) ESRD (end stage renal disease) on dialysis Code(s): N18.6 - END STAGE RENAL DISEASE; Z99.2 - DEPENDENCE ON RENAL DIALYSIS Assessment/Plan Current Medications Generic Name Dose Route Start Last Admin Trade Name Freq PRN Reason Stop Dose Admin Amino Acids 30 ml 02/21/19 22:00 03/21/19 06:17 Prosource No Carb Liquid Pkt PO 30 ml TID CHANTELL Administration Apixaban 2.5 mg 02/21/19 22:00 03/21/19 09:07 Eliquis - PO 2.5 mg BID CHANTELL Administration Atorvastatin Calcium 20 mg 02/21/19 22:00 03/20/19 23:23 Lipitor - PO 20 mg HS CHANTELL Administration Collagenase 1 applic 02/22/19 10:00 03/21/19 09:08 Santyl - TP 1 applic DAILY [facility]ANTELL Administration Protocol Escitalopram Oxalate 10 mg 02/22/19 10:00 03/21/19 09:07 Lexapro - PO 10 mg DAILY [facility]ANTE[facility] Administration Hydrocortisone Sodium Succinate 100 mg 03/11/19 11:00 03/21/19 09:07 Solu-Cortef - IVPB 100 mg Q8H-IV [facility]ANTELL Administration Meropenem 500 mg/ Dextrose 100 mls @ 200 mls/hr 03/11/19 10:00 03/21/19 09:08 IVPB 200 mls/hr DAILY [facility] Administration Insulin Aspart 1 vial 03/13/19 12:00 03/21/19 12:28 Novolog Vial Sliding Scale - SQ Not Given Q6HPO [facility] Protocol Midodrine 10 mg 03/02/19 14:00 03/21/19 09:07 Proamatine - PO 10 mg TID-MID CHANTELL Administration Morphine Sulfate 2 mg 03/21/19 10:44 Morphine Sulfate IVPUSH Q4H PRN PAIN LEVEL 6-10 Multivitamins/Minerals/Vitamin C 1 tab 02/22/19 10:00 03/21/19 09:07 Tab-A-Vit - PO 1 tab DAILY [facility]ANTELL Administration Pantoprazole Sodium 40 mg 03/14/19 22:00 03/21/19 09:08 Protonix Iv IVPUSH 40 mg BID CHANTELL Administration Impression 1. ESRD 2. gangrene 3. DM 4. hyperlipidemia 5. HTN 6. gout 7. proteinuria 8. hypotension 9. sepsis 10. resp failure 11. GI bleed Plan - HD today - pt tolerating feeds - monitor lytes - next HD Monday - cont wound care - 3 k bath on hd
--- NOTE | 2019-03-21 17:49 | PN ---
Physical Exam: SUBJECTIVE: Patient seen and examined at the bedside Off pressers overnight. No overnight issues OBJECTIVE: Vital Signs Period Temp Pulse Resp BP Sys/Zamorano Pulse Ox Last 24 Hr 97.2 F-98.8 F 69-101 17-23 96-129/49-76 100-100 GENERAL: No response to noxious stimuli HEAD: Normal with no signs of trauma. EYES: PERRL, extraocular movements intact, sclera anicteric, conjunctiva clear. No ptosis. ENT: Ears normal, nares patent, oropharynx clear without exudates, moist mucous membranes. NECK: Trachea midline, full range of motion, supple. LUNGS: Breath sounds equal, clear to auscultation bilaterally, no wheezes, no crackles, no accessory muscle use. HEART: Regular rate and rhythm, S1, S2 without murmur, rub or gallop. ABDOMEN: Soft, nontender, nondistended, normoactive bowel sounds, no guarding, no rebound, no hepatosplenomegaly, no masses. EXTREMITIES: bilateral gangrene lower ext down to the tendon on the left with unstageble sacral ulcer NEUROLOGICAL: Cranial nerves II through XII grossly intact. Follows basic commands PSYCH: Normal mood, normal affect. SKIN: bilateral gangrene lower ext down to the tendon on the left with purulent foul smelling discharge. Unstageble sacral ulcer Laboratory Results - last 24 hr 03/19/19 03/20/19 03/20/19 16:51 17:46 21:02 WBC RBC Hgb Hct MCV MCH MCHC RDW Plt Count MPV Sodium Potassium Chloride Carbon Dioxide Anion Gap BUN Creatinine Est GFR (CKD-EPI)AfAm Est GFR (CKD-EPI)NonAf POC Glucometer 104 125 Random Glucose Calcium Hep Bs Antigen Negative Hep C Ab Diagnostic <0.1 03/21/19 03/21/19 03/21/19 05:57 07:30 07:30 WBC 16.8 H RBC 3.08 L Hgb 9.1 L Hct 28.5 L MCV 92.6 MCH 29.4 MCHC 31.8 L RDW 19.7 H Plt Count 143 MPV 11.6 H Sodium 133 L Potassium 3.5 Chloride 98 Carbon Dioxide 27 Anion Gap 8 BUN 37.2 H Creatinine 2.0 H Est GFR (CKD-EPI)AfAm 37.01 Est GFR (CKD-EPI)NonAf 31.93 POC Glucometer 128 Random Glucose 119 H Calcium 6.6 L* Hep Bs Antigen Hep C Ab Diagnostic 03/21/19 03/21/19 11:28 16:33 WBC RBC Hgb Hct MCV MCH MCHC RDW Plt Count MPV Sodium Potassium Chloride Carbon Dioxide Anion Gap BUN Creatinine Est GFR (CKD-EPI)AfAm Est GFR (CKD-EPI)NonAf POC Glucometer 145 104 Random Glucose Calcium Hep Bs Antigen Hep C Ab Diagnostic Active Medications Generic Name Dose Route Start Last Admin Trade Name Freq PRN Reason Stop Dose Admin Amino Acids 30 ml 02/21/19 22:00 03/21/19 16:12 Prosource No Carb Liquid Pkt PO 30 ml TID CHANTELL Administration Apixaban 2.5 mg 02/21/19 22:00 03/21/19 09:07 Eliquis - PO 2.5 mg BID CHANTELL Administration Atorvastatin Calcium 20 mg 02/21/19 22:00 03/20/19 23:23 Lipitor - PO 20 mg HS CHANTELL Administration Collagenase 1 applic 02/22/19 10:00 03/21/19 09:08 Santyl - TP 1 applic DAILY CHANTELL Administration Protocol Escitalopram Oxalate 10 mg 02/22/19 10:00 03/21/19 09:07 Lexapro - PO 10 mg DAILY CHANTELL Administration Hydrocortisone Sodium Succinate 100 mg 03/11/19 11:00 03/21/19 17:31 Solu-Cortef - IVPB 100 mg Q8H-IV CHANTELL Administration Meropenem 500 mg/ Dextrose 100 mls @ 200 mls/hr 03/11/19 10:00 03/21/19 09:08 IVPB 200 mls/hr DAILY CHANTELL Administration Insulin Aspart 1 vial 03/13/19 12:00 03/21/19 17:31 Novolog Vial Sliding Scale - SQ Not Given Q6HPO CHANTELL Protocol Midodrine 10 mg 03/02/19 14:00 03/21/19 17:31 Proamatine - PO 10 mg TID-MID CHANTELL Administration Morphine Sulfate 2 mg 03/21/19 10:44 Morphine Sulfate IVPUSH Q4H PRN PAIN LEVEL 6-10 Multivitamins/Minerals/Vitamin C 1 tab 02/22/19 10:00 03/21/19 09:07 Tab-A-Vit - PO 1 tab DAILY CHANTELL Administration Pantoprazole Sodium 40 mg 03/14/19 22:00 03/21/19 09:08 Protonix Iv IVPUSH 40 mg BID CHANTELL Administration ASSESSMENT/PLAN: Family meeting over the phone today done by ethics team, see ethics note. Pt off pressers with MAPs above 70 overnight, no sedation. Pt stable to transfer to [facility] HD today as per nephro #septic shock 2/2 DM gangrenous B/L feet infx, Infected sacral decub and scrotal ulcer, and GN bacteremia (proteus, prevotella) - requiring ICU and pressors. Now w/ hypoxic respiratory failure possibly 2/2 developing aspiration PNA (aspirated over the weekend) requiring intubation/sedation. CXR 03/11 shows questionable infiltrate L base. +Leukocytosis. afebrile now for >24hr -old cx with E coli, ESBL, MRSA, and VRE. -contact isolation for MDRO -s/p Vanc and Zosyn in the ED, Gentamicin x1, Meropenem x2 in ICU -Bcx 02/21/19 growing GN cher - proteus and prevotella -ucx neg -wound cx E coli, morganella -Bcx 02/23/19 neg -03/11/19 sputum cx MRSA, pseudomonas A,ecoli esbl, acinetobacter ; bcx ecoli esbl bacteremia. -ID consulted, Rangel -lactic acid resolved -palliative care consulted -s/p CTX 2g/flagyl, c/w Meropenem day #20 total abx, ID recs appreciated. -s/p vanc and gentamicin x1 yesterday per ID -Aspiration precautions. -c/w Levophed 8, vasopressin 6, stress steroids. Titrate pressors to keep MAP>65 -fentanyl 25mcg for comfort and sedation -vascular surgery consulted, Dr harry, for wound care. amputation indicated, but family not amenable. cont GOC #Seizure-like myoclonus 03/12/19 - noted overnight. resolved w/ ativan 1mg and loaded w/ keppra. see Dr Overton note for further details c/w keppra 250 bid #ESRD on HD (MWF) -nephro consulted (Dr. Henriquez) -HD today - due to recent cardiac irregular rhythms, nephro monitoring K closely and will continue to reassess #Acute on chronic anemia likely 2/2 ESRD -monitor H/H #Severe protein calorie malnutrition -albumin 1.1, prealbumin 3.5 -thin appearing, decreased muscle mass and fat -decreased overall PO intake -Holding tube feeds due to continued aspiration risk. Giving only medication through NG tube #COPD -keep SpO2>90% -Duonebs q6h PRN #Dm ISS BGM ACHS #H/o hypotension : c/w home midodrine monitor vitals # h/o afib c/w elequis 2.5 bid #FEN -On trickle feeds standing fluids -replete prn -NGT on tube feeds #Prophylaxis -Eliquis 2.5mg BID -Protonix IV while on AC and pressors -bacid Dispo: Pt off pressers with MAPs above 70 overnight, no sedation. Pt stable to transfer to med surg Visit type - Emergency Visit Emergency Visit: No - New Patient This patient is new to me today: No - Critical Care Critical Care patient: Yes Total Critical Care Time (in minutes): 36 Critical Care Statement: The care of this patient involved high complexity decision making to prevent further life threatening deterioration of the patient 's condition and/or to evaluate & treat vital organ system(s) failure or risk of failure.
[2019-03-21] MEDS ORDERED: EPOETIN ALFA 2,000 UNIT/1 ML VIAL IVPUSH ONE (18:46)
[2019-03-21] MEDS: ATORVASTATIN CA 20 MG TABLET (FP) PO SCH (21:09)
[2019-03-21] MEDS: FENTANYL INJECTION 500 MCG in DEXTROSE 5%-WATER - 90 ML IVPB SCH ×2 (23:12→23:13)
[2019-03-21] MEDS: VASOPRESSIN 50 UNITS in SODIUM CHLORIDE 97.5 ML IVPB SCH ×3 (23:12→23:14)
[2019-03-22] MEDS: INSULIN SLIDING SCALE (NOVOLOG) 1 VIAL SQ SCH ×5 (00:42→23:47)
[2019-03-22] MEDS: HYDROCORTISONE SOD SUCCINATE 100 MG/2 ML VIAL IVPB SCH ×3 (01:16→21:27)
[2019-03-22] MEDS: MORPHINE SULFATE 2 MG/ML VIAL IVPUSH PRN ×5 (01:53→21:56)
[2019-03-22] MEDS: AMINO ACIDS/PROTEIN HYDROLYS 30 ML LIQUID.PKT PO SCH ×3 (05:32→21:27)
--- NOTE | 2019-03-22 06:48 | PN ---
Physical Exam: SUBJECTIVE: Patient seen and examined in ICU. remains extubated and off pressors >24h. transferred to tele. GOC/ethics meeting ongoing. yesterday family meeting. d/w family about pt clinical history/course and overall poor prognosis. pt father has decided to defer decision making to siblings. however there is some disagreement betw siblings regarding pt wishes. family will call us today w/ consensus and provide us a point of care contact. see spiritual care Jean Claude Corbett note for further details OBJECTIVE: Vital Signs Period Temp Pulse Resp BP Sys/Zamorano Pulse Ox Last 24 Hr 97.2 F-98.8 F 69-100 18-22 96-157/49-90 100-100 GENERAL: lethargic, drowsy, intermittently crying in pain. thin appearing, decreased muscle mass and fat EARS, NOSE, THROAT: dry mucous membranes. LUNGS: CTAB HEART: irregularly irregular s1s2 normal ABDOMEN: Soft, NTND normoactive bowel sounds, ulcer present on sacrum unstagable with foul discharge, scrotum has ulcer no discharge MUSCULOSKELETAL: Normal range of motion at all joints. No bony deformities or tenderness. No CVA tenderness. UPPER EXTREMITIES: 2+ pulses, warm, well-perfused. +edema LOWER EXTREMITIES: b/l wet gangrene with fouls smelling discharge SKIN: Warm, dry, Neuo: lethargic, responsive to pain. Laboratory Results - last 24 hr 03/21/19 03/21/19 03/21/19 05:57 07:30 07:30 WBC 16.8 H RBC 3.08 L Hgb 9.1 L Hct 28.5 L MCV 92.6 MCH 29.4 MCHC 31.8 L RDW 19.7 H Plt Count 143 MPV 11.6 H Sodium 133 L Potassium 3.5 Chloride 98 Carbon Dioxide 27 Anion Gap 8 BUN 37.2 H Creatinine 2.0 H Est GFR (CKD-EPI)AfAm 37.01 Est GFR (CKD-EPI)NonAf 31.93 POC Glucometer 128 Random Glucose 119 H Calcium 6.6 L* 03/21/19 03/21/19 03/22/19 11:28 16:33 00:34 WBC RBC Hgb Hct MCV MCH MCHC RDW Plt Count MPV Sodium Potassium Chloride Carbon Dioxide Anion Gap BUN Creatinine Est GFR (CKD-EPI)AfAm Est GFR (CKD-EPI)NonAf POC Glucometer 145 104 131 Random Glucose Calcium 03/22/19 05:12 WBC RBC Hgb Hct MCV MCH MCHC RDW Plt Count MPV Sodium Potassium Chloride Carbon Dioxide Anion Gap BUN Creatinine Est GFR (CKD-EPI)AfAm Est GFR (CKD-EPI)NonAf POC Glucometer 126 Random Glucose Calcium Active Medications Generic Name Dose Route Start Last Admin Trade Name Freq PRN Reason Stop Dose Admin Amino Acids 30 ml 03/21/19 22:00 03/22/19 05:32 Prosource No Carb Liquid Pkt PO 30 ml TID CHANTELL Administration Apixaban 2.5 mg 03/21/19 22:00 03/21/19 21:10 Eliquis - PO 2.5 mg BID CHANTELL Administration Atorvastatin Calcium 20 mg 03/21/19 22:00 03/21/19 21:09 Lipitor - PO 20 mg HS CHANTELL Administration Collagenase 1 applic 03/22/19 10:00 Santyl - TP DAILY [facility] Protocol Epoetin Jose 12,000 unit 03/21/19 18:46 03/21/19 23:14 Epogen - IVPUSH 03/21/19 18:47 Not Given ONCE ONE Escitalopram Oxalate 10 mg 03/22/19 10:00 Lexapro - PO DAILY CHANTELL Hydrocortisone Sodium Succinate 100 mg 03/22/19 02:00 03/22/19 01:16 Solu-Cortef - IVPB 100 mg Q8H-IV CHANTELL Administration Meropenem 500 mg/ Dextrose 100 mls @ 200 mls/hr 03/22/19 10:00 IVPB DAILY CHANTELL Insulin Aspart 1 vial 03/22/19 00:00 03/22/19 05:32 Novolog Vial Sliding Scale - SQ Not Given Q6HPO [facility] Protocol Midodrine 10 mg 03/22/19 10:00 Proamatine - PO TID-MID CHANTELL Morphine Sulfate 2 mg 03/21/19 10:44 03/22/19 05:57 Morphine Sulfate IVPUSH 2 mg Q4H PRN Administration PAIN LEVEL 6-10 Multivitamins/Minerals/Vitamin C 1 tab 03/22/19 10:00 Tab-A-Vit - PO DAILY CHANTELL Pantoprazole Sodium 40 mg 03/21/19 22:00 03/21/19 21:09 Protonix Iv IVPUSH 40 mg BID CHANTELL Administration ASSESSMENT/PLAN: 73 yo M PMH dementia, CVA, DM, COPD, ESRD, gout, HTN, HLP, recent admission 01/31- 02/19 during which he was treated for sepsis due to infected b/l feet ulcers/ gangrene. He was sent form NH due to poor po intake, and worsening of ulcers. Now in septic shock 2/2 DM gangrenous B/L feet infx, Infected sacral decub and scrotal ulcer, and GN bacteremia , requiring ICU and pressors #septic shock 2/2 DM gangrenous B/L feet infx, Infected sacral decub and scrotal ulcer, and GN bacteremia (proteus, prevotella, ecoli esbl) c/b hypoxic respiratory failure 2/2 aspiration PNA requiring intubation/sedation - resolving. remains extubated and off pressors >24h, afebrile now for >72hr. + Leukocytosis. maintaining SpO2 100% w/ 40% VM -old cx with E coli, ESBL, MRSA, and VRE. -contact isolation for MDRO -s/p Vanc and Zosyn in the ED, Gentamicin x1, Meropenem x2 in ICU -Bcx 02/21/19 growing GN cher - proteus and prevotella -ucx neg -wound cx E coli, morganella -Bcx 02/23/19 neg -03/11/19 sputum cx MRSA, pseudomonas A,ecoli esbl, acinetobacter ; bcx ecoli esbl bacteremia. -MDRO: strict contact isolation -ID consulted, Rangel -palliative care consulted -s/p CTX 2g/flagyl, c/w Meropenem day #28 total abx, ID recs appreciated. -s/p vanc and gentamicin x1 03/13/19 per ID -Aspiration precautions. -maintain MAP>65 -vascular surgery consulted, Dr harry, for wound care. amputation indicated, but family not amenable. cont GOC #Seizure-like myoclonus 03/12/19 - resolved w/ ativan 1mg and loaded w/ keppra. see Dr Overton note for further details c/w keppra 250 bid #ESRD on HD (MWF) -nephro consulted (Dr. Henriquez) -HD as per nephro ned held by nephro for low phos. #Acute on chronic anemia likely 2/2 ESRD and sepsis -monitor H/H -H/H 6.9...9.6 s/p 2u prbc, transfuse prn to maintain hgb >7 #Transaminitis - likely 2/2 septic shock avoid toxic drugs #Severe protein calorie malnutrition -albumin 1.1, prealbumin 3.5 -thin appearing, decreased muscle mass and fat -decreased overall PO intake -Magic cup, Ensure pudding for increased density of nutritional intake. Now on NGT #COPD -keep SpO2>90% -Duonebs q6h PRN #Dm ISS BGM ACHS #H/o hypotension : c/w home midodrine monitor vitals # h/o afib c/w elequis 2.5 bid #FEN -Not on any standing fluids -replete prn -NGT on tube feeds #Prophylaxis -Eliquis 2.5mg BID -Protonix IV while on AC and pressors -bacid #Disposition -full code -GOC/ethics consult placed, as we have attempted multiple times to contact daughter who has not been responsive and in the past has not been amenable to to allow for source control/amputation and standard of care. given patients inability to make decisions for himself and daughter unwillingness pt will likely cont to suffer w/o improvement and has spoor prognosis. multiple times various members of primary team and ICU team have tried contacting daughter for GOC/ethics meeting. Resident Dr Milton was able to make contact w/ daughter but no meaningful discussion was able to take place, please see Dr Milton note for further detail. brother has been contacted and has spoken w/ palliative. daughter will not be coming, This may constitute pt abandonment. palliative tried contacting pt other children/NOK, letters were sent out, but no response. family meeting 03/21/19, d/w family about pt clinical history/course and overall poor prognosis. pt father has decided to defer decision making to siblings. however there is some disagreement betw siblings regarding pt wishes. family will call us today w/ consensus and provide us a point of care contact. see spiritual care Jean Claude Corbett note for further details -given overall poor prognosis, conservative measures and comfort care may be appropriate -transferred to tele Visit type - Emergency Visit Emergency Visit: Yes ED Registration Date: 02/21/19 Care time: The patient presented to the Emergency Department on the above date and was hospitalized for further evaluation of their emergent condition. - New Patient This patient is new to me today: Yes Date on this admission: 03/22/19 - Critical Care Critical Care patient: No
[2019-03-22 06:53] LABS: HEMATOCRIT 31.4 % (35.4-49); MCH 29.6 pg (25.7-33.7); MEAN CELL VOLUME 92.6 fl (80-96); MEAN PLT VOLUME 11.4 fl (7.5-11.1); RBC 3.38 M/mm3 (4.00-5.60); RDW 19.5 % (11.9-15.9); WHITE BLOOD COUNT 15.8 K/mm3 (4.0-10.0)
[2019-03-22 07:15] LABS: BLOOD UREA NITROGEN 25.5 mg/dL (7-18); CALCIUM 7.1 mg/dL (8.5-10.1); CREATININE 1.6 mg/dL (0.55-1.3); MAGNESIUM 1.9 mg/dL (1.8-2.4); PHOSPHOROUS 2.7 mg/dL (2.5-4.9); POTASSIUM 3.5 mmol/L (3.5-5.1)
[2019-03-22 07:44] LABS: PLATELET COUNT 127 K/MM3 (134-434)
[2019-03-22] MEDS ORDERED: PT OWN MED DRAWER 7, Y5N ONE ×5 (10:34→17:40)
[2019-03-22] MEDS: PANTOPRAZOLE SODIUM 40 MG VIAL IVPUSH SCH ×2 (10:46→21:27)
[2019-03-22] MEDS: MULTIVITAMINS (DAILY MVI) TABLET (FP) PO SCH (10:58)
[2019-03-22] MEDS: APIXABAN 2.5 MG TABLET PO SCH ×2 (10:58→21:27)
[2019-03-22] MEDS: ESCITALOPRAM OXALATE 10 MG TABLET (FP) PO SCH (10:58)
[2019-03-22] MEDS: MIDODRINE HCL 5 MG TABLET PO SCH ×3 (10:59→17:45)
--- NOTE | 2019-03-22 11:29 | PN ---
Progress Note (short form) - Note Progress Note: Vascular Surgery Pt with bl lower ext ulcers with contractures. Pt needs conservative care, comfort care. I have had long conversations with the daughter. She does not want surgery prefers IV antibiotics for her father. Amos Mcneil DO
[2019-03-22] MEDS: MEROPENEM 500 MG in DEXTROSE 5%-WATER 100 ML IVPB SCH (11:32)
--- NOTE | 2019-03-22 12:28 | PN ---
Teaching Attending Note Name of Resident: Mathew Adorno ATTENDING PHYSICIAN STATEMENT I saw and evaluated the patient. I reviewed the resident's note and discussed the case with the resident. I agree with the resident's findings and plan as documented. SUBJECTIVE: Seen and examined at bedside, no acute events overnight. Lethargic, on NRB OBJECTIVE: Vital Signs - 24 hr 03/21/19 03/21/19 03/21/19 19:55 20:00 22:00 Temperature 97.8 F Pulse Rate 100 H Respiratory 20 20 Rate Blood Pressure 157/90 O2 Sat by Pulse 100 100 Oximetry (%) 03/22/19 03/22/19 02:00 06:00 Temperature 98.7 F 97.2 F L Pulse Rate 88 93 H Respiratory 18 20 Rate Blood Pressure 129/76 144/84 O2 Sat by Pulse Oximetry (%) GENERAL: Lethargic, minimally responsive HEENT: +NGT HEART: S1S2, rrr LUNGS: Clear b/l anteriorly ABDOMEN: Soft, non-distended, normal BS, obese EXTREMITIES: 1+ edema, both feet wrapped, foul swelling Laboratory Results - last 24 hr 03/21/19 03/22/19 03/22/19 16:33 00:34 05:12 WBC RBC Hgb Hct MCV MCH MCHC RDW Plt Count MPV Sodium Potassium Chloride Carbon Dioxide Anion Gap BUN Creatinine Est GFR (CKD-EPI)AfAm Est GFR (CKD-EPI)NonAf POC Glucometer 104 131 126 Random Glucose Calcium Phosphorus Magnesium 03/22/19 03/22/19 05:30 05:30 WBC 15.8 H RBC 3.38 L Hgb 10.0 L Hct 31.4 L MCV 92.6 MCH 29.6 MCHC 32.0 RDW 19.5 H Plt Count 127 L MPV 11.4 H Sodium 137 Potassium 3.5 Chloride 100 Carbon Dioxide 32 Anion Gap 6 L BUN 25.5 H Creatinine 1.6 H Est GFR (CKD-EPI)AfAm 48.47 Est GFR (CKD-EPI)NonAf 41.82 POC Glucometer Random Glucose 131 H Calcium 7.1 L Phosphorus 2.7 Magnesium 1.9 Current Medications Generic Name Dose Route Start Last Admin Trade Name Freq PRN Reason Stop Dose Admin Amino Acids 30 ml 03/21/19 22:00 03/22/19 05:32 Prosource No Carb Liquid Pkt PO 30 ml TID CHANTELL Administration Apixaban 2.5 mg 03/21/19 22:00 03/22/19 10:58 Eliquis - PO 2.5 mg BID CHANTELL Administration Atorvastatin Calcium 20 mg 03/21/19 22:00 03/21/19 21:09 Lipitor - PO 20 mg HS CHANTELL Administration Collagenase 1 applic 03/22/19 10:00 Santyl - TP DAILY [facility] Protocol Escitalopram Oxalate 10 mg 03/22/19 10:00 03/22/19 10:58 Lexapro - PO 10 mg DAILY CHANTELL Administration Hydrocortisone Sodium Succinate 100 mg 03/22/19 02:00 03/22/19 10:45 Solu-Cortef - IVPB 100 mg Q8H-IV CHANTELL Administration Meropenem 500 mg/ Dextrose 100 mls @ 200 mls/hr 03/22/19 10:00 03/22/19 11:32 IVPB 200 mls/hr DAILY CHANETLL Administration Insulin Aspart 1 vial 03/22/19 00:00 03/22/19 05:32 Novolog Vial Sliding Scale - SQ Not Given Q6HPO [facility] Protocol Midodrine 10 mg 03/22/19 10:00 03/22/19 10:59 Proamatine - PO 10 mg TID-MID CHANTELL Administration Morphine Sulfate 2 mg 03/21/19 10:44 03/22/19 10:47 Morphine Sulfate IVPUSH 2 mg Q4H PRN Administration PAIN LEVEL 6-10 Multivitamins/Minerals/Vitamin C 1 tab 03/22/19 10:00 03/22/19 10:58 Tab-A-Vit - PO 1 tab DAILY CHANTELL Administration Pantoprazole Sodium 40 mg 03/21/19 22:00 03/22/19 10:46 Protonix Iv IVPUSH 40 mg BID CHANTELL Administration Microbiology 03/11/19 05:30 Blood - Peripheral Venous Blood Culture - Final NO GROWTH AFTER 5 DAYS INCUBATION 03/11/19 10:15 Sputum - Endotrachea Suction/Ventilator Gram Stain - Final 03/11/19 10:15 Sputum - Endotrachea Suction/Ventilator Sputum Culture - Final Mr S Aureus Escherichia Coli Esbl Rotor Blade Installer Acinetobacter Baumannii/Haemol Pseudomonas Aeruginosa 03/11/19 06:45 Blood - Peripheral Venous Blood Culture - Final Escherichia Coli Esbl Rotor Blade Installer 02/23/19 11:50 Blood - Peripheral Venous Blood Culture - Final NO GROWTH AFTER 5 DAYS INCUBATION 02/23/19 11:50 Blood - Peripheral Venous Blood Culture - Final NO GROWTH AFTER 5 DAYS INCUBATION 02/21/19 13:16 Blood - Peripheral Venous Blood Culture - Final Proteus Mirabilis Prevotella Melaninogenica 02/21/19 16:30 Foot - Left Heel Gram Stain - Final 02/21/19 16:30 Foot - Left Heel Wound Culture - Final Escherichia Coli Esbl Rotor Blade Installer Morganella Morganii 02/21/19 15:40 Blood - Peripheral Venous Blood Culture - Final Proteus Mirabilis 02/21/19 14:50 Urine - Urine - Catheterized Urine Culture - Final NO GROWTH OBTAINED ASSESSMENT AND PLAN: 73 year old male with multiple comorbidities, recent admission 01/31-02/19 for sepsis due to infected b/l feet ulcers/gangrene. Represents with AMS found to be in septic shock due to gangrenous feet b/l, infected sacral decub and scrotal ulcer, and GN bacteremia Septic Shock secondary to gangrenous foot infections, sacral decub, and ESBL bacteremia, pna -microbiology, see above -on meropenem -repeat blood cultures -on solucortef, start weaning -c/w isolation preacautions -ID eval appreciated -Tarun Pizano, vascular eval, supportive/conservative care, amputation is indicated family declining -wound care Acute Hypoxic respiratory failure, likely due to aspiration pneumonia -s/p extubation on 03/19/19 -now on rebreather Afib -on eliquis -rate controlled Seizure -c/w Keppra ESRD on HD M/W/F -HD per renal Anemia of chronic disease -s/p transfusions, monitor h/h -transfuse if hb<7 -procrit Malnutrition -patient with NGT -cw current care until family decision made COPD -stable -inhaled BD as needed DM2 -monitor BS -cw ISS Hypotension -chronic, on midodrine HLD -on statin CVA hx -on statin DISPO: -patient remains full code -multiple family meetings, ethics committee involved -family to call today with final decision -grave prognosis
--- NOTE | 2019-03-22 12:46 | PN ---
Progress Note, Physician History of Present Illness: REMAINS EXTUBATED LETHARGIC DOES NOT FOLLOW COMMANDS TEMPS REMAIN DOWN AFEBRILE OFF PRESSORS WBC REMAINS ELEVATED - Current Medication List Current Medications: Active Medications Amino Acids (Prosource No Carb Liquid Pkt) 30 ml PO TID [facility] Last Admin: 03/22/19 05:32 Dose: 30 ml Apixaban (Eliquis -) 2.5 mg PO BID [facility] Last Admin: 03/22/19 10:58 Dose: 2.5 mg Atorvastatin Calcium (Lipitor -) 20 mg PO HS CHANTELL Last Admin: 03/21/19 21:09 Dose: 20 mg Collagenase (Santyl -) 1 applic TP DAILY [facility]; Protocol Escitalopram Oxalate (Lexapro -) 10 mg PO DAILY [facility] Last Admin: 03/22/19 10:58 Dose: 10 mg Hydrocortisone Sodium Succinate (Solu-Cortef -) 100 mg IVPB Q8H-IV [facility] Last Admin: 03/22/19 10:45 Dose: 100 mg Meropenem 500 mg/ Dextrose 100 mls @ 200 mls/hr IVPB DAILY [facility] Last Admin: 03/22/19 11:32 Dose: 200 mls/hr Insulin Aspart (Novolog Vial Sliding Scale -) 1 vial SQ Q6HPO [facility]; Protocol Last Admin: 03/22/19 12:34 Dose: 2 units Midodrine (Proamatine -) 10 mg PO TID-MID [facility] Last Admin: 03/22/19 10:59 Dose: 10 mg Morphine Sulfate (Morphine Sulfate) 2 mg IVPUSH Q4H PRN PRN Reason: PAIN LEVEL 6-10 Last Admin: 03/22/19 10:47 Dose: 2 mg Multivitamins/Minerals/Vitamin C (Tab-A-Vit -) 1 tab PO DAILY [facility] Last Admin: 03/22/19 10:58 Dose: 1 tab Pantoprazole Sodium (Protonix Iv) 40 mg IVPUSH BID [facility] Last Admin: 03/22/19 10:46 Dose: 40 mg - Objective Vital Signs: Vital Signs Temperature 97.2 F L 03/22/19 06:00 Pulse Rate 93 H 03/22/19 06:00 Respiratory Rate 20 03/22/19 06:00 Blood Pressure 144/84 03/22/19 06:00 O2 Sat by Pulse Oximetry (%) 100 03/21/19 20:00 Constitutional: Yes: No Distress Cardiovascular: Yes: Regular Rate and Rhythm, S1, S2 Respiratory: Yes: Diminished Gastrointestinal: Yes: Normal Bowel Sounds, Soft. No: Tenderness Extremities: Yes: Other (NECROTIC, FOUL SMELLING ULCERS, FEET) Labs: CBC, BMP 03/22/19 05:30 03/22/19 05:30 INR, PTT INR 1.44 (0.83-1.09) H 02/22/19 05:40 Assessment/Plan SEPSIS/ SEPTIC SHOCK ESBL BACTEREMIA/ SEPSIS +BC 03/11 RESP FAILURE FEVER/LEUKOCYTOSIS CONTINUE MEROPENEM PROGNOSIS POOR
--- NOTE | 2019-03-22 13:29 | PN ---
Progress Note, Physician History of Present Illness: pulmonary lethargic,on vm,-resp distress - Current Medication List Current Medications: Active Medications Amino Acids (Prosource No Carb Liquid Pkt) 30 ml PO TID [facility] Last Admin: 03/22/19 05:32 Dose: 30 ml Apixaban (Eliquis -) 2.5 mg PO BID [facility] Last Admin: 03/22/19 10:58 Dose: 2.5 mg Atorvastatin Calcium (Lipitor -) 20 mg PO HS [facility] Last Admin: 03/21/19 21:09 Dose: 20 mg Collagenase (Santyl -) 1 applic TP DAILY [facility]; Protocol Escitalopram Oxalate (Lexapro -) 10 mg PO DAILY [facility] Last Admin: 03/22/19 10:58 Dose: 10 mg Hydrocortisone Sodium Succinate (Solu-Cortef -) 100 mg IVPB BID [facility] Meropenem 500 mg/ Dextrose 100 mls @ 200 mls/hr IVPB DAILY [facility] Last Admin: 03/22/19 11:32 Dose: 200 mls/hr Insulin Aspart (Novolog Vial Sliding Scale -) 1 vial SQ Q6HPO [facility]; Protocol Last Admin: 03/22/19 12:34 Dose: 2 units Midodrine (Proamatine -) 10 mg PO TID-MID [facility] Last Admin: 03/22/19 10:59 Dose: 10 mg Morphine Sulfate (Morphine Sulfate) 2 mg IVPUSH Q4H PRN PRN Reason: PAIN LEVEL 6-10 Last Admin: 03/22/19 10:47 Dose: 2 mg Multivitamins/Minerals/Vitamin C (Tab-A-Vit -) 1 tab PO DAILY [facility] Last Admin: 03/22/19 10:58 Dose: 1 tab Pantoprazole Sodium (Protonix Iv) 40 mg IVPUSH BID [facility] Last Admin: 03/22/19 10:46 Dose: 40 mg - Objective Vital Signs: Vital Signs Temperature 97.2 F L 03/22/19 06:00 Pulse Rate 93 H 03/22/19 06:00 Respiratory Rate 20 03/22/19 06:00 Blood Pressure 144/84 03/22/19 06:00 O2 Sat by Pulse Oximetry (%) 100 03/21/19 20:00 Constitutional: Yes: Obese (lethargic), Other Eyes: Yes: WNL HENT: Yes: WNL Neck: Yes: WNL Cardiovascular: Yes: Regular Rate and Rhythm, S1, S2 Respiratory: Yes: Rhonchi (scattered rhonchi) Gastrointestinal: Yes: Normal Bowel Sounds, Soft Extremities: Yes: WNL Edema: No Labs: CBC, BMP 03/22/19 05:30 03/22/19 05:30 INR, PTT INR 1.44 (0.83-1.09) H 02/22/19 05:40 Problem List - Problems (1) ESBL E. coli carrier Code(s): Z22.39 - CARRIER OF OTHER SPECIFIED BACTERIAL DISEASES (2) Gram negative sepsis Code(s): A41.50 - GRAM-NEGATIVE SEPSIS, UNSPECIFIED (3) Sacral decubitus ulcer Code(s): L89.159 - PRESSURE ULCER OF SACRAL REGION, UNSPECIFIED STAGE (4) Sepsis Code(s): A41.9 - SEPSIS, UNSPECIFIED ORGANISM (5) Acute hypoxemic respiratory failure Code(s): J96.01 - ACUTE RESPIRATORY FAILURE WITH HYPOXIA (6) CKD (chronic kidney disease) Code(s): N18.9 - CHRONIC KIDNEY DISEASE, UNSPECIFIED (7) COPD (chronic obstructive pulmonary disease) Code(s): J44.9 - CHRONIC OBSTRUCTIVE PULMONARY DISEASE, UNSPECIFIED (8) Hypotension Code(s): I95.9 - HYPOTENSION, UNSPECIFIED (9) Lymphedema Code(s): I89.0 - LYMPHEDEMA, NOT ELSEWHERE CLASSIFIED (10) MRSA (methicillin resistant staph aureus) culture positive Code(s): Z22.322 - CARRIER OR SUSPECTED CARRIER OF METHICILLIN RESIS STAPH (11) Toxic metabolic encephalopathy Code(s): G92 - TOXIC ENCEPHALOPATHY Assessment/Plan ASSESSMENT AND PLAN: Acute Hypoxic Respiratory Failure improving Pneumonia suspect Aspiration ESBL E coli Bacteremia Septic Shock Bilateral Feet Gangrene Infected Decubitus Ulcers ESRD on HD DM HTN Hyperlipidemia h/o CVA - continue antibiotics per ID - midodrine - IVF boluses as needed - monitor H/H - local wound care - HD per renal - FiO2 to keep SpO2 >90% - aspiration precautions - DVT prophylaxis DR GODINEZ
--- NOTE | 2019-03-22 14:46 | PN ---
Progress Note, Physician History of Present Illness: Pt seen and examined at bedside. He is now in the medical carr. He remains lethargic. - Current Medication List Current Medications: Active Medications Amino Acids (Prosource No Carb Liquid Pkt) 30 ml PO TID [facility] Last Admin: 03/22/19 05:32 Dose: 30 ml Apixaban (Eliquis -) 2.5 mg PO BID [facility] Last Admin: 03/22/19 10:58 Dose: 2.5 mg Atorvastatin Calcium (Lipitor -) 20 mg PO HS [facility] Last Admin: 03/21/19 21:09 Dose: 20 mg Collagenase (Santyl -) 1 applic TP DAILY [facility]; Protocol Escitalopram Oxalate (Lexapro -) 10 mg PO DAILY [facility] Last Admin: 03/22/19 10:58 Dose: 10 mg Hydrocortisone Sodium Succinate (Solu-Cortef -) 100 mg IVPB BID [facility] Meropenem 500 mg/ Dextrose 100 mls @ 200 mls/hr IVPB DAILY [facility] Last Admin: 03/22/19 11:32 Dose: 200 mls/hr Insulin Aspart (Novolog Vial Sliding Scale -) 1 vial SQ Q6HPO [facility]; Protocol Last Admin: 03/22/19 12:34 Dose: 2 units Midodrine (Proamatine -) 10 mg PO TID-MID [facility] Last Admin: 03/22/19 10:59 Dose: 10 mg Morphine Sulfate (Morphine Sulfate) 2 mg IVPUSH Q4H PRN PRN Reason: PAIN LEVEL 6-10 Last Admin: 03/22/19 10:47 Dose: 2 mg Multivitamins/Minerals/Vitamin C (Tab-A-Vit -) 1 tab PO DAILY [facility] Last Admin: 03/22/19 10:58 Dose: 1 tab Pantoprazole Sodium (Protonix Iv) 40 mg IVPUSH BID [facility] Last Admin: 03/22/19 10:46 Dose: 40 mg - Objective Vital Signs: Vital Signs Temperature 97.2 F L 03/22/19 06:00 Pulse Rate 76 03/22/19 14:35 Respiratory Rate 16 03/22/19 14:35 Blood Pressure 140/82 03/22/19 14:35 O2 Sat by Pulse Oximetry (%) 100 03/21/19 20:00 Constitutional: Yes: Calm Eyes: Yes: Conjunctiva Clear HENT: Yes: Atraumatic Neck: Yes: Supple Cardiovascular: Yes: S1, S2 Respiratory: Yes: On Nasal O2 Gastrointestinal: Yes: Soft Genitourinary: Yes: Incontinence Musculoskeletal: Yes: Muscle Weakness Edema: LUE: 1+, RUE: 1+ Neurological: Yes: Lethargy Labs: CBC, BMP 03/22/19 05:30 03/22/19 05:30 INR, PTT INR 1.44 (0.83-1.09) H 02/22/19 05:40 Problem List - Problems (1) ESRD (end stage renal disease) on dialysis Code(s): N18.6 - END STAGE RENAL DISEASE; Z99.2 - DEPENDENCE ON RENAL DIALYSIS Assessment/Plan Current Medications Generic Name Dose Route Start Last Admin Trade Name Freq PRN Reason Stop Dose Admin Amino Acids 30 ml 03/21/19 22:00 03/22/19 05:32 Prosource No Carb Liquid Pkt PO 30 ml TID [facility] Administration Apixaban 2.5 mg 03/21/19 22:00 03/22/19 10:58 Eliquis - PO 2.5 mg BID [facility] Administration Atorvastatin Calcium 20 mg 03/21/19 22:00 03/21/19 21:09 Lipitor - PO 20 mg HS [facility] Administration Collagenase 1 applic 03/22/19 10:00 Santyl - TP DAILY [facility] Protocol Escitalopram Oxalate 10 mg 03/22/19 10:00 03/22/19 10:58 Lexapro - PO 10 mg DAILY [facility] Administration Hydrocortisone Sodium Succinate 100 mg 03/22/19 22:00 Solu-Cortef - IVPB BID [facility] Meropenem 500 mg/ Dextrose 100 mls @ 200 mls/hr 03/22/19 10:00 03/22/19 11:32 IVPB 200 mls/hr DAILY [facility] Administration Insulin Aspart 1 vial 03/22/19 00:00 03/22/19 12:34 Novolog Vial Sliding Scale - SQ 2 units Q6HPO [facility] Administration Protocol Midodrine 10 mg 03/22/19 10:00 03/22/19 10:59 Proamatine - PO 10 mg TID-MID [facility] Administration Morphine Sulfate 2 mg 03/21/19 10:44 03/22/19 10:47 Morphine Sulfate IVPUSH 2 mg Q4H PRN Administration PAIN LEVEL 6-10 Multivitamins/Minerals/Vitamin C 1 tab 03/22/19 10:00 03/22/19 10:58 Tab-A-Vit - PO 1 tab DAILY [facility] Administration Pantoprazole Sodium 40 mg 03/21/19 22:00 03/22/19 10:46 Protonix Iv IVPUSH 40 mg BID [facility] Administration Impression 1. ESRD 2. gangrene 3. DM 4. hyperlipidemia 5. HTN 6. gout 7. proteinuria 8. hypotension 9. sepsis 10. resp failure 11. GI bleed Plan - HD tomorrow - pt tolerating feeds so far - cont wound care - 3 k bath on hd
[2019-03-22] MEDS: COLLAGENASE CLOSTRIDIUM HIST. 30 GRAMS TUBE TP SCH (18:00)
[2019-03-22] MEDS: ATORVASTATIN CA 20 MG TABLET (FP) PO SCH (21:27)
[2019-03-23] MEDS: MORPHINE SULFATE 2 MG/ML VIAL IVPUSH PRN ×3 (02:25→20:07)
[2019-03-23] MEDS: AMINO ACIDS/PROTEIN HYDROLYS 30 ML LIQUID.PKT PO SCH ×2 (05:11→14:32)
[2019-03-23] MEDS: INSULIN SLIDING SCALE (NOVOLOG) 1 VIAL SQ SCH ×4 (05:12→23:10)
--- NOTE | 2019-03-23 05:40 | PN ---
Physical Exam: SUBJECTIVE: Patient seen and examined at bed side , no acute events over night , tolerating diet , maintaining his Bp and no fever over night , for HD today , moaning and respond to verbal and oral stiumli OBJECTIVE: Vital Signs Period Temp Pulse Resp BP Sys/Zamorano Pulse Ox Last 24 Hr 97.1 F-97.8 F 75-93 16-20 123-144/68-88 100-100 GENERAL: lethargic, drowsy, intermittently crying in pain. thin appearing, decreased muscle mass and fat EARS, NOSE, THROAT: dry mucous membranes.NGT in place LUNGS: decrease breath sounds at the bases HEART: irregularly irregular s1s2 normal ABDOMEN: Soft, NTND normoactive bowel sounds, ulcer present on sacrum un stagable with foul discharge, scrotum has ulcer no discharge MUSCULOSKELETAL: Normal range of motion at all joints. No bony deformities or tenderness. No CVA tenderness. UPPER EXTREMITIES: 2+ pulses, warm, well-perfused. +edema LOWER EXTREMITIES: b/l wet gangrene with fouls smelling discharge SKIN: Warm, dry, Neuo: lethargic, responsive to oral and verbal stimuli Laboratory Results - last 24 hr 03/22/19 03/22/19 03/22/19 05:30 05:30 12:32 WBC 15.8 H RBC 3.38 L Hgb 10.0 L Hct 31.4 L MCV 92.6 MCH 29.6 MCHC 32.0 RDW 19.5 H Plt Count 127 L MPV 11.4 H Sodium 137 Potassium 3.5 Chloride 100 Carbon Dioxide 32 Anion Gap 6 L BUN 25.5 H Creatinine 1.6 H Est GFR (CKD-EPI)AfAm 48.47 Est GFR (CKD-EPI)NonAf 41.82 POC Glucometer 152 Random Glucose 131 H Calcium 7.1 L Phosphorus 2.7 Magnesium 1.9 03/22/19 03/22/19 03/23/19 17:42 23:37 05:09 WBC RBC Hgb Hct MCV MCH MCHC RDW Plt Count MPV Sodium Potassium Chloride Carbon Dioxide Anion Gap BUN Creatinine Est GFR (CKD-EPI)AfAm Est GFR (CKD-EPI)NonAf POC Glucometer 118 120 147 Random Glucose Calcium Phosphorus Magnesium Active Medications Generic Name Dose Route Start Last Admin Trade Name Freq PRN Reason Stop Dose Admin Albumin Human 12.5 gm 03/23/19 15:00 Albumin Human 25% IVPB 03/23/19 16:31 Q30M [facility] Amino Acids 30 ml 03/21/19 22:00 03/23/19 05:11 Prosource No Carb Liquid Pkt PO 30 ml TID [facility] Administration Apixaban 2.5 mg 03/21/19 22:00 03/22/19 21:27 Eliquis - PO 2.5 mg BID [facility] Administration Atorvastatin Calcium 20 mg 03/21/19 22:00 03/22/19 21:27 Lipitor - PO 20 mg HS [facility] Administration Collagenase 1 applic 03/22/19 10:00 03/22/19 18:00 Santyl - TP 1 applic DAILY [facility] Administration Protocol Epoetin Jose 12,000 unit 03/23/19 14:46 Epogen - IVPUSH 03/23/19 14:47 ONCE ONE Escitalopram Oxalate 10 mg 03/22/19 10:00 03/22/19 10:58 Lexapro - PO 10 mg DAILY [facility] Administration Hydrocortisone Sodium Succinate 100 mg 03/22/19 22:00 03/22/19 21:27 Solu-Cortef - IVPB 100 mg BID [facility] Administration Meropenem 500 mg/ Dextrose 100 mls @ 200 mls/hr 03/22/19 10:00 03/22/19 11:32 IVPB 200 mls/hr DAILY [facility] Administration Sodium Chloride 250 mls @ 3,000 mls/hr 03/22/19 14:46 Normal Saline - IV 03/23/19 14:47 PRN PRN Hypotension during Dialysis Insulin Aspart 1 vial 03/22/19 00:00 03/23/19 05:12 Novolog Vial Sliding Scale - SQ Not Given Q6HPO [facility] Protocol Midodrine 10 mg 03/22/19 10:00 03/22/19 17:45 Proamatine - PO 10 mg TID-MID [facility] Administration Morphine Sulfate 2 mg 03/21/19 10:44 03/23/19 02:25 Morphine Sulfate IVPUSH 2 mg Q4H PRN Administration PAIN LEVEL 6-10 Multivitamins/Minerals/Vitamin C 1 tab 03/22/19 10:00 03/22/19 10:58 Tab-A-Vit - PO 1 tab DAILY [facility] Administration Pantoprazole Sodium 40 mg 03/21/19 22:00 03/22/19 21:27 Protonix Iv IVPUSH 40 mg BID [facility] Administration CBC, BMP 03/23/19 06:30 03/23/19 06:30 ASSESSMENT/PLAN: 73 yo M PMH dementia, CVA, DM, COPD, ESRD, gout, HTN, HLP, recent admission 01/31- 02/19 during which he was treated for sepsis due to infected b/l feet ulcers/ gangrene. He was sent form NH due to poor po intake, and worsening of ulcers. Now in septic shock 2/2 DM gangrenous B/L feet infx, Infected sacral decub and scrotal ulcer, and GN bacteremia , requiring ICU and pressors #Acute Hypoxic Respiratory Failure on venti mask , keep o2 sat > 90 % #Pneumonia suspect Aspiration daily cxr , cont merropenem per ID , aspiration precautions , #ESBL E coli Bacteremia cont abx meropenem , cont solu-medrol 100 BID #Septic Shock resolved s.p extubation and pressors ,on midodrine and IVF boluses as needed #Bilateral Feet Gangrene vascular on board not able to cosent father and daughter are the ones making decision for now per ethics committe #Infected Decubitus Ulcers cont Abx per ID on meropenem , wound care collagenase santyl #DIOGENES on CKD , ESRD on HD # Anemia : on epogen per renal with HD #DM BGM , ISS , hold oral agents #HTN: off pressors due to septic shock , midodrine #Hyperlipidemia: cont Atorvastatin 20 HS #h/o CVA cont ASA, eliquis #PBH hold flomax for now # DVTS proph scds , on eliquis 2.5 BID # GI proph : PPI 40 BID # Monitor lytes and replinished as needed # full code , daughter and his father are decision making regarding his health so far # very poor prognosis Visit type - Emergency Visit Emergency Visit: Yes ED Registration Date: 02/21/19 Care time: The patient presented to the Emergency Department on the above date and was hospitalized for further evaluation of their emergent condition. - New Patient This patient is new to me today: No - Critical Care Critical Care patient: No
[2019-03-23] MEDS ORDERED: SODIUM CHLORIDE 250 ML IV PRN (07:00)
[2019-03-23 07:46] LABS: HEMATOCRIT 30.7 % (35.4-49); HEMOGLOBIN 9.6 GM/dL (11.7-16.9); MCH 29.5 pg (25.7-33.7); MCHC 31.4 g/dl (32.0-35.9); MEAN PLT VOLUME 11.8 fl (7.5-11.1); RBC 3.26 M/mm3 (4.00-5.60); RDW 20.2 % (11.9-15.9); WHITE BLOOD COUNT 14.3 K/mm3 (4.0-10.0)
[2019-03-23 08:06] LABS: BLOOD UREA NITROGEN 38.1 mg/dL (7-18); CREATININE 1.8 mg/dL (0.55-1.3); PHOSPHOROUS 3.4 mg/dL (2.5-4.9); POTASSIUM 3.1 mmol/L (3.5-5.1)
[2019-03-23 08:23] LABS: CALCIUM 6.8 mg/dL (8.5-10.1)
[2019-03-23] MEDS ORDERED: EPOETIN ALFA 10,000 UNIT, EPOETIN ALFA 2,000 UNIT IVPUSH ONE (09:00)
[2019-03-23 09:16] LABS: PLATELET COUNT 100 K/MM3 (134-434)
[2019-03-23] MEDS: KCL 10 MEQ IVPB 10 MEQ/100 ML INFUS.BAG IVPB SCH ×2 (09:34→10:32)
[2019-03-23] MEDS ORDERED: PT OWN MED DRAWER 7, Y5N ONE ×2 (09:41→17:42)
[2019-03-23] MEDS: MEROPENEM 500 MG in DEXTROSE 5%-WATER 100 ML IVPB SCH (09:42)
[2019-03-23] MEDS: PANTOPRAZOLE SODIUM 40 MG VIAL IVPUSH SCH ×2 (09:43→22:23)
[2019-03-23] MEDS: HYDROCORTISONE SOD SUCCINATE 100 MG/2 ML VIAL IVPB SCH ×2 (09:43→22:23)
--- NOTE | 2019-03-23 10:45 | PN ---
Progress Note, Physician History of Present Illness: pulmonary still lethargic,no resp distress - Current Medication List Current Medications: Active Medications Amino Acids (Prosource No Carb Liquid Pkt) 30 ml PO TID [facility] Last Admin: 03/23/19 05:11 Dose: 30 ml Apixaban (Eliquis -) 2.5 mg PO BID [facility] Last Admin: 03/22/19 21:27 Dose: 2.5 mg Atorvastatin Calcium (Lipitor -) 20 mg PO HS [facility] Last Admin: 03/22/19 21:27 Dose: 20 mg Collagenase (Santyl -) 1 applic TP DAILY [facility]; Protocol Last Admin: 03/22/19 18:00 Dose: 1 applic Escitalopram Oxalate (Lexapro -) 10 mg PO DAILY [facility] Last Admin: 03/22/19 10:58 Dose: 10 mg Hydrocortisone Sodium Succinate (Solu-Cortef -) 100 mg IVPB BID [facility] Last Admin: 03/23/19 09:43 Dose: 100 mg Meropenem 500 mg/ Dextrose 100 mls @ 200 mls/hr IVPB DAILY [facility] Last Admin: 03/23/19 09:42 Dose: 200 mls/hr Sodium Chloride (Normal Saline -) 250 mls @ 3,000 mls/hr IV PRN PRN PRN Reason: Hypotension during Dialysis Stop: 03/24/19 06:59 Insulin Aspart (Novolog Vial Sliding Scale -) 1 vial SQ Q6HPO [facility]; Protocol Last Admin: 03/23/19 05:12 Dose: Not Given Midodrine (Proamatine -) 10 mg PO TID-MID [facility] Last Admin: 03/22/19 17:45 Dose: 10 mg Morphine Sulfate (Morphine Sulfate) 2 mg IVPUSH Q4H PRN PRN Reason: PAIN LEVEL 6-10 Last Admin: 03/23/19 09:43 Dose: 2 mg Multivitamins/Minerals/Vitamin C (Tab-A-Vit -) 1 tab PO DAILY [facility] Last Admin: 03/22/19 10:58 Dose: 1 tab Pantoprazole Sodium (Protonix Iv) 40 mg IVPUSH BID [facility] Last Admin: 03/23/19 09:43 Dose: 40 mg - Objective Vital Signs: Vital Signs Temperature 97 F L 03/23/19 10:00 Pulse Rate 83 03/23/19 10:00 Respiratory Rate 22 H 03/23/19 10:00 Blood Pressure 121/64 03/23/19 10:00 O2 Sat by Pulse Oximetry (%) 100 03/22/19 22:00 Constitutional: Yes: Well Nourished, Other (lethargic) Eyes: Yes: WNL HENT: Yes: WNL Neck: Yes: WNL Cardiovascular: Yes: Regular Rate and Rhythm, S1, S2 Respiratory: Yes: Diminished Gastrointestinal: Yes: Normal Bowel Sounds, Soft Extremities: Yes: WNL Edema: Yes Labs: CBC, BMP 03/23/19 06:30 03/23/19 06:30 INR, PTT INR 1.44 (0.83-1.09) H 02/22/19 05:40 Problem List - Problems (1) ESBL E. coli carrier Code(s): Z22.39 - CARRIER OF OTHER SPECIFIED BACTERIAL DISEASES (2) Gram negative sepsis Code(s): A41.50 - GRAM-NEGATIVE SEPSIS, UNSPECIFIED (3) Sacral decubitus ulcer Code(s): L89.159 - PRESSURE ULCER OF SACRAL REGION, UNSPECIFIED STAGE (4) Sepsis Code(s): A41.9 - SEPSIS, UNSPECIFIED ORGANISM (5) Acute hypoxemic respiratory failure Code(s): J96.01 - ACUTE RESPIRATORY FAILURE WITH HYPOXIA (6) CKD (chronic kidney disease) Code(s): N18.9 - CHRONIC KIDNEY DISEASE, UNSPECIFIED (7) COPD (chronic obstructive pulmonary disease) Code(s): J44.9 - CHRONIC OBSTRUCTIVE PULMONARY DISEASE, UNSPECIFIED (8) Hypotension Code(s): I95.9 - HYPOTENSION, UNSPECIFIED (9) Lymphedema Code(s): I89.0 - LYMPHEDEMA, NOT ELSEWHERE CLASSIFIED (10) MRSA (methicillin resistant staph aureus) culture positive Code(s): Z22.322 - CARRIER OR SUSPECTED CARRIER OF METHICILLIN RESIS STAPH (11) Toxic metabolic encephalopathy Code(s): G92 - TOXIC ENCEPHALOPATHY Assessment/Plan ASSESSMENT AND PLAN: Acute Hypoxic Respiratory Failure improving Pneumonia suspect Aspiration ESBL E coli Bacteremia Septic Shock Bilateral Feet Gangrene Infected Decubitus Ulcers ESRD on HD DM HTN Hyperlipidemia h/o CVA - antibiotics per ID - midodrine - IVF boluses as needed - monitor H/H - local wound care - HD per renal - FiO2 to keep SpO2 >90% - aspiration precautions - DVT prophylaxis DR GODINEZ
[2019-03-23] MEDS ORDERED: POTASSIUM CHLORIDE ORAL LIQUID 20 MEQ/15 ML NGT ONE (11:10)
[2019-03-23] MEDS: ALBUMIN HUMAN 25% 12.5 GM/50 ML VIAL IVPB SCH ×3 (11:50→13:44)
--- NOTE | 2019-03-23 12:26 | PN ---
Progress Note, Physician History of Present Illness: Pt seen and examined at bedside. He is tolerating HD. - Current Medication List Current Medications: Active Medications Amino Acids (Prosource No Carb Liquid Pkt) 30 ml PO TID [facility] Last Admin: 03/23/19 05:11 Dose: 30 ml Apixaban (Eliquis -) 2.5 mg PO BID [facility] Last Admin: 03/22/19 21:27 Dose: 2.5 mg Atorvastatin Calcium (Lipitor -) 20 mg PO HS [facility] Last Admin: 03/22/19 21:27 Dose: 20 mg Collagenase (Santyl -) 1 applic TP DAILY [facility]; Protocol Last Admin: 03/22/19 18:00 Dose: 1 applic Escitalopram Oxalate (Lexapro -) 10 mg PO DAILY [facility] Last Admin: 03/22/19 10:58 Dose: 10 mg Hydrocortisone Sodium Succinate (Solu-Cortef -) 100 mg IVPB BID [facility] Last Admin: 03/23/19 09:43 Dose: 100 mg Meropenem 500 mg/ Dextrose 100 mls @ 200 mls/hr IVPB DAILY [facility] Last Admin: 03/23/19 09:42 Dose: 200 mls/hr Sodium Chloride (Normal Saline -) 250 mls @ 3,000 mls/hr IV PRN PRN PRN Reason: Hypotension during Dialysis Stop: 03/24/19 06:59 Insulin Aspart (Novolog Vial Sliding Scale -) 1 vial SQ Q6HPO [facility]; Protocol Last Admin: 03/23/19 05:12 Dose: Not Given Midodrine (Proamatine -) 10 mg PO TID-MID [facility] Last Admin: 03/22/19 17:45 Dose: 10 mg Morphine Sulfate (Morphine Sulfate) 2 mg IVPUSH Q4H PRN PRN Reason: PAIN LEVEL 6-10 Last Admin: 03/23/19 09:43 Dose: 2 mg Multivitamins/Minerals/Vitamin C (Tab-A-Vit -) 1 tab PO DAILY [facility] Last Admin: 03/22/19 10:58 Dose: 1 tab Pantoprazole Sodium (Protonix Iv) 40 mg IVPUSH BID [facility] Last Admin: 03/23/19 09:43 Dose: 40 mg - Objective Vital Signs: Vital Signs Temperature 97 F L 03/23/19 10:00 Pulse Rate 68 03/23/19 12:20 Respiratory Rate 18 03/23/19 12:20 Blood Pressure 125/77 03/23/19 12:20 O2 Sat by Pulse Oximetry (%) 100 03/22/19 22:00 Constitutional: Yes: Calm Eyes: Yes: Conjunctiva Clear HENT: Yes: Atraumatic Neck: Yes: Supple Cardiovascular: Yes: S1, S2 Respiratory: Yes: On Venti-Mask Gastrointestinal: Yes: Soft Genitourinary: Yes: Incontinence Musculoskeletal: Yes: Muscle Weakness Edema: Yes Edema: LUE: 1+, RUE: 1+ Wound/Incision: Yes: Dressing Dry and Intact Neurological: Yes: Lethargy Labs: CBC, BMP 03/23/19 06:30 03/23/19 06:30 INR, PTT INR 1.44 (0.83-1.09) H 02/22/19 05:40 Problem List - Problems (1) ESRD (end stage renal disease) on dialysis Code(s): N18.6 - END STAGE RENAL DISEASE; Z99.2 - DEPENDENCE ON RENAL DIALYSIS Assessment/Plan Current Medications Generic Name Dose Route Start Last Admin Trade Name Freq PRN Reason Stop Dose Admin Amino Acids 30 ml 03/21/19 22:00 03/23/19 05:11 Prosource No Carb Liquid Pkt PO 30 ml TID [facility] Administration Apixaban 2.5 mg 03/21/19 22:00 03/22/19 21:27 Eliquis - PO 2.5 mg BID [facility] Administration Atorvastatin Calcium 20 mg 03/21/19 22:00 03/22/19 21:27 Lipitor - PO 20 mg HS [facility] Administration Collagenase 1 applic 03/22/19 10:00 03/22/19 18:00 Santyl - TP 1 applic DAILY [facility] Administration Protocol Escitalopram Oxalate 10 mg 03/22/19 10:00 03/22/19 10:58 Lexapro - PO 10 mg DAILY [facility] Administration Hydrocortisone Sodium Succinate 100 mg 03/22/19 22:00 03/23/19 09:43 Solu-Cortef - IVPB 100 mg BID [facility] Administration Meropenem 500 mg/ Dextrose 100 mls @ 200 mls/hr 03/22/19 10:00 03/23/19 09:42 IVPB 200 mls/hr DAILY [facility] Administration Sodium Chloride 250 mls @ 3,000 mls/hr 03/23/19 07:00 Normal Saline - IV 03/24/19 06:59 PRN PRN Hypotension during Dialysis Insulin Aspart 1 vial 03/22/19 00:00 03/23/19 05:12 Novolog Vial Sliding Scale - SQ Not Given Q6HPO [facility] Protocol Midodrine 10 mg 03/22/19 10:00 03/22/19 17:45 Proamatine - PO 10 mg TID-MID [facility] Administration Morphine Sulfate 2 mg 03/21/19 10:44 03/23/19 09:43 Morphine Sulfate IVPUSH 2 mg Q4H PRN Administration PAIN LEVEL 6-10 Multivitamins/Minerals/Vitamin C 1 tab 03/22/19 10:00 03/22/19 10:58 Tab-A-Vit - PO 1 tab DAILY [facility] Administration Pantoprazole Sodium 40 mg 03/21/19 22:00 03/23/19 09:43 Protonix Iv IVPUSH 40 mg BID [facility] Administration Impression 1. ESRD 2. gangrene 3. DM 4. hyperlipidemia 5. HTN 6. gout 7. proteinuria 8. hypotension 9. sepsis 10. resp failure 11. GI bleed Plan - pt tolerating HD - will attempt to UF 2 liters - replace potassium - cont feeds as tolerated - 3k bath
[2019-03-23] MEDS: MIDODRINE HCL 5 MG TABLET PO SCH ×2 (14:30→14:31)
[2019-03-23] MEDS: ESCITALOPRAM OXALATE 10 MG TABLET (FP) PO SCH (14:30)
[2019-03-23] MEDS: APIXABAN 2.5 MG TABLET PO SCH (14:30)
[2019-03-23] MEDS: MULTIVITAMINS (DAILY MVI) TABLET (FP) PO SCH (14:31)
[2019-03-23] MEDS ORDERED: EPOETIN ALFA 2,000 UNIT/1 ML VIAL IVPUSH ONE (14:46)
--- NOTE | 2019-03-23 15:44 | PN ---
Teaching Attending Note Name of Resident: Maurizio Shoemaker ATTENDING PHYSICIAN STATEMENT I saw and evaluated the patient. I reviewed the resident's note and discussed the case with the resident. I agree with the resident's findings and plan as documented. SUBJECTIVE: Patient moaning. He is attempting to speak but his words are not understandable. OBJECTIVE: Vital Signs Period Temp Pulse Resp BP Sys/Zamorano Pulse Ox Last 24 Hr 97 F-97.6 F 59-84 18-22 99-145/64-91 100-100 HEART: S1S2, RRR LUNGS: Clear ABDOMEN: Soft, non-distended, normal BS EXTREMITIES: 2+ edema, foul-smelling wounds with gangrene both feet Laboratory Results - last 24 hr 03/22/19 03/22/19 03/23/19 17:42 23:37 05:09 WBC RBC Hgb Hct MCV MCH MCHC RDW Plt Count MPV Sodium Potassium Chloride Carbon Dioxide Anion Gap BUN Creatinine Est GFR (CKD-EPI)AfAm Est GFR (CKD-EPI)NonAf POC Glucometer 118 120 147 Random Glucose Calcium Phosphorus Magnesium 03/23/19 03/23/19 03/23/19 06:30 06:30 12:27 WBC 14.3 H RBC 3.26 L Hgb 9.6 L Hct 30.7 L MCV 94.0 MCH 29.5 MCHC 31.4 L RDW 20.2 H Plt Count 100 L D MPV 11.8 H Sodium 137 Potassium 3.1 L Chloride 100 Carbon Dioxide 28 Anion Gap 8 BUN 38.1 H Creatinine 1.8 H Est GFR (CKD-EPI)AfAm 42.03 Est GFR (CKD-EPI)NonAf 36.27 POC Glucometer 167 Random Glucose 164 H Calcium 6.8 L* Phosphorus 3.4 Magnesium 2.0 Current Medications Generic Name Dose Route Start Last Admin Trade Name Freq PRN Reason Stop Dose Admin Amino Acids 30 ml 03/23/19 22:00 Prosource No Carb Liquid Pkt NGT TID CHANTELL Apixaban 2.5 mg 03/23/19 22:00 Eliquis - GT BID CHANTELL Atorvastatin Calcium 20 mg 03/23/19 22:00 Lipitor - NGT HS CHANTELL Collagenase 1 applic 03/22/19 10:00 03/22/19 18:00 Santyl - TP 1 applic DAILY CHANTELL Administration Protocol Escitalopram Oxalate 10 mg 03/24/19 10:00 Lexapro - NGT DAILY CHANTELL Hydrocortisone Sodium Succinate 100 mg 03/22/19 22:00 03/23/19 09:43 Solu-Cortef - IVPB 100 mg BID CHANTELL Administration Meropenem 500 mg/ Dextrose 100 mls @ 200 mls/hr 03/22/19 10:00 03/23/19 09:42 IVPB 200 mls/hr DAILY CHANTELL Administration Sodium Chloride 250 mls @ 3,000 mls/hr 03/23/19 07:00 Normal Saline - IV 03/24/19 06:59 PRN PRN Hypotension during Dialysis Insulin Aspart 1 vial 03/22/19 00:00 03/23/19 12:30 Novolog Vial Sliding Scale - SQ 2 units Q6HPO CHANTELL Administration Protocol Midodrine 10 mg 03/23/19 18:00 Proamatine - NGT TID-MID CHANTELL Morphine Sulfate 2 mg 03/21/19 10:44 03/23/19 09:43 Morphine Sulfate IVPUSH 2 mg Q4H PRN Administration PAIN LEVEL 6-10 Pantoprazole Sodium 40 mg 03/21/19 22:00 03/23/19 09:43 Protonix Iv IVPUSH 40 mg BID CHANTELL Administration ASSESSMENT AND PLAN: This is a 73 year old man with a history of HTN, hyperlipidemia, type 2 DM, COPD , ESRD, CVA, PAD, BPH, gout, recent sepsis secondary to infected foot ulcers with gangrene who was sent to the ED from [facility] for evaluation of altered mental status and poor PO intake. 1. Acute hypoxic respiratory failure - Extubated 03/19 - Oxygen to maintain saturation >90% 2. Septic shock - Off pressors - Continue midodrine, SoluCortef 3. ESBL E. coli bacteremia, probable aspiration pneumonia, infected diabetic foot ulcers with gangrene, infected unstageable sacral pressure ulcer - Continue Merrem - Continue wound care 4. ESRD - Continue HD 5. Type 2 DM - Continue Novolog sliding scale 6. HTN - BP meds held secondary to hypotension/shock 7. Hyperlipidemia - Continue Lipitor 8. Anemia secondary to ESRD - Continue Procrit 9. Thrombocytopenia - Possibly secondary to sepsis - Monitor platelets 10. Hyponatremia - Improved 11. Hypokalemia - Replete potassium 12. BPH 13. History of CVA 14. History of atrial fibrillation - Continue Eliquis 15. COPD 16. PAD 17. Severe protein calorie malnutrition - Continue Nepro NGT feeds - Continue Prosource 18. DVT prophylaxis - On Eliquis 19. Stress ulcer prophylaxis - On Protonix
[2019-03-23] MEDS: MIDODRINE HCL 5 MG TABLET NGT SCH (17:48)
[2019-03-23] MEDS: COLLAGENASE CLOSTRIDIUM HIST. 30 GRAMS TUBE TP SCH (18:32)
[2019-03-23] MEDS: APIXABAN 2.5 MG TABLET GT SCH (22:23)
[2019-03-23] MEDS: AMINO ACIDS/PROTEIN HYDROLYS 30 ML LIQUID.PKT NGT SCH (22:23)
[2019-03-23] MEDS: ATORVASTATIN CA 20 MG TABLET (FP) NGT SCH (22:23)
[2019-03-24] MEDS: MORPHINE SULFATE 2 MG/ML VIAL IVPUSH PRN (03:38)
[2019-03-24] MEDS: AMINO ACIDS/PROTEIN HYDROLYS 30 ML LIQUID.PKT NGT SCH ×3 (05:51→22:28)
[2019-03-24] MEDS: INSULIN SLIDING SCALE (NOVOLOG) 1 VIAL SQ SCH ×4 (05:51→23:49)
--- NOTE | 2019-03-24 09:19 | PN ---
Physical Exam: SUBJECTIVE: Patient seen and examined. He is moaning. Tries to speak in response to questions. Able to answer yes/no. OBJECTIVE: Vital Signs Period Temp Pulse Resp BP Sys/Zamorano Pulse Ox Last 24 Hr 94.1 F-97.6 F 59-90 18-22 99-142/64-83 98 GENERAL: The patient is awake, alert, moaning. LUNGS: Breath sounds equal with poor inspiratory effort, clear to auscultation bilaterally, no wheezes, no crackles, no accessory muscle use. HEART: Regular rate and rhythm, S1, S2, (+) PVCs, without murmur, rub or gallop. ABDOMEN: Soft, nondistended, normoactive bowel sounds, no guarding, no rebound, no hepatosplenomegaly, no masses. EXTREMITIES: 2+ edema. Foul-smelling wounds with gangrene of both feet. Laboratory Results - last 24 hr 03/23/19 03/23/19 03/23/19 12:27 17:21 23:09 POC Glucometer 167 157 205 03/24/19 05:49 POC Glucometer 168 Active Medications Generic Name Dose Route Start Last Admin Trade Name Freq PRN Reason Stop Dose Admin Amino Acids 30 ml 03/23/19 22:00 03/24/19 05:51 Prosource No Carb Liquid Pkt NGT 30 ml TID CHANTELL Administration Apixaban 2.5 mg 03/23/19 22:00 03/23/19 22:23 Eliquis - GT 2.5 mg BID CHANTELL Administration Atorvastatin Calcium 20 mg 03/23/19 22:00 03/23/19 22:23 Lipitor - NGT 20 mg HS CHANTELL Administration Collagenase 1 applic 03/22/19 10:00 03/23/19 18:32 Santyl - TP 1 applic DAILY CHANTELL Administration Protocol Escitalopram Oxalate 10 mg 03/24/19 10:00 Lexapro - NGT DAILY CHANTELL Hydrocortisone Sodium Succinate 100 mg 03/22/19 22:00 03/23/19 22:23 Solu-Cortef - IVPB 100 mg BID CHANTELL Administration Meropenem 500 mg/ Dextrose 100 mls @ 200 mls/hr 03/22/19 10:00 03/23/19 09:42 IVPB 200 mls/hr DAILY CHANTELL Administration Insulin Aspart 1 vial 03/22/19 00:00 03/24/19 05:51 Novolog Vial Sliding Scale - SQ 2 units Q6HPO CHANTELL Administration Protocol Midodrine 10 mg 03/23/19 18:00 03/23/19 17:48 Proamatine - NGT 10 mg TID-MID CHANTELL Administration Morphine Sulfate 2 mg 03/21/19 10:44 03/24/19 03:38 Morphine Sulfate IVPUSH 2 mg Q4H PRN Administration PAIN LEVEL 6-10 Pantoprazole Sodium 40 mg 03/21/19 22:00 03/23/19 22:23 Protonix Iv IVPUSH 40 mg BID CHANTELL Administration ASSESSMENT/PLAN: This is a 73 year old man with a history of HTN, hyperlipidemia, type 2 DM, COPD , ESRD, CVA, PAD, BPH, gout, recent sepsis secondary to infected foot ulcers with gangrene who was sent to the ED from [facility] for evaluation of altered mental status and poor PO intake. 1. Acute hypoxic respiratory failure - Extubated 03/19 - Oxygen to maintain saturation >90% 2. Septic shock - Off pressors - Continue midodrine, SoluCortef - Developed hypothermia overnight - warming blanket applied 3. ESBL E. coli bacteremia, probable aspiration pneumonia, infected diabetic foot ulcers with gangrene, infected unstageable sacral pressure ulcer - Continue Merrem - Continue wound care 4. ESRD - Continue HD as per nephrology 5. Type 2 DM - Continue Novolog sliding scale 6. HTN - BP meds held secondary to hypotension/shock 7. Hyperlipidemia - Continue Lipitor 8. Anemia secondary to ESRD - Continue Procrit 9. Thrombocytopenia - Possibly secondary to sepsis - Monitor platelets 10. Hyponatremia - Improved 11. Hypokalemia - Replete potassium as needed 12. BPH 13. History of CVA 14. History of atrial fibrillation - Continue Eliquis 15. COPD 16. PAD 17. Severe protein calorie malnutrition - Continue Nepro NGT feeds - Continue Prosource 18. DVT prophylaxis - On Eliquis 19. Stress ulcer prophylaxis - On Protonix Visit type - Emergency Visit Emergency Visit: Yes ED Registration Date: 02/21/19 Care time: The patient presented to the Emergency Department on the above date and was hospitalized for further evaluation of their emergent condition. - New Patient This patient is new to me today: No - Critical Care Critical Care patient: No - Discharge Referral Referred to [facility] Med P.C.: No
[2019-03-24] MEDS ORDERED: PT OWN MED DRAWER 7, Y5N ONE (10:20)
--- NOTE | 2019-03-24 10:20 | PN ---
Progress Note, Physician History of Present Illness: pulmonary remains lethargic,on VM 50% O2, hypothermic placed on warming blanket - Current Medication List Current Medications: Active Medications Amino Acids (Prosource No Carb Liquid Pkt) 30 ml NGT TID [facility] Last Admin: 03/24/19 05:51 Dose: 30 ml Apixaban (Eliquis -) 2.5 mg GT BID [facility] Last Admin: 03/23/19 22:23 Dose: 2.5 mg Atorvastatin Calcium (Lipitor -) 20 mg NGT HS [facility] Last Admin: 03/23/19 22:23 Dose: 20 mg Collagenase (Santyl -) 1 applic TP DAILY [facility]; Protocol Last Admin: 03/23/19 18:32 Dose: 1 applic Escitalopram Oxalate (Lexapro -) 10 mg NGT DAILY [facility] Hydrocortisone Sodium Succinate (Solu-Cortef -) 100 mg IVPB BID [facility] Last Admin: 03/23/19 22:23 Dose: 100 mg Meropenem 500 mg/ Dextrose 100 mls @ 200 mls/hr IVPB DAILY [facility] Last Admin: 03/23/19 09:42 Dose: 200 mls/hr Insulin Aspart (Novolog Vial Sliding Scale -) 1 vial SQ Q6HPO [facility]; Protocol Last Admin: 03/24/19 05:51 Dose: 2 units Midodrine (Proamatine -) 10 mg NGT TID-MID [facility] Last Admin: 03/23/19 17:48 Dose: 10 mg Morphine Sulfate (Morphine Sulfate) 2 mg IVPUSH Q4H PRN PRN Reason: PAIN LEVEL 6-10 Last Admin: 03/24/19 03:38 Dose: 2 mg Pantoprazole Sodium (Protonix Iv) 40 mg IVPUSH BID [facility] Last Admin: 03/23/19 22:23 Dose: 40 mg - Objective Vital Signs: Vital Signs Temperature 96.8 F L 03/24/19 06:05 Pulse Rate 89 03/24/19 06:05 Respiratory Rate 20 03/24/19 06:05 Blood Pressure 142/80 03/24/19 06:05 O2 Sat by Pulse Oximetry (%) 98 03/23/19 21:00 Constitutional: Yes: Well Nourished, Other (lethargic) Eyes: Yes: WNL HENT: Yes: WNL Neck: Yes: WNL Cardiovascular: Yes: Regular Rate and Rhythm, S1, S2 Respiratory: Yes: Diminished (poor inspiratory effort) Gastrointestinal: Yes: Normal Bowel Sounds, Soft Extremities: Yes: WNL Edema: Yes Labs: CBC, BMP 03/23/19 06:30 03/23/19 06:30 INR, PTT INR 1.44 (0.83-1.09) H 02/22/19 05:40 Problem List - Problems (1) ESBL E. coli carrier Code(s): Z22.39 - CARRIER OF OTHER SPECIFIED BACTERIAL DISEASES (2) Gram negative sepsis Code(s): A41.50 - GRAM-NEGATIVE SEPSIS, UNSPECIFIED (3) Sacral decubitus ulcer Code(s): L89.159 - PRESSURE ULCER OF SACRAL REGION, UNSPECIFIED STAGE (4) Sepsis Code(s): A41.9 - SEPSIS, UNSPECIFIED ORGANISM (5) Acute hypoxemic respiratory failure Code(s): J96.01 - ACUTE RESPIRATORY FAILURE WITH HYPOXIA (6) CKD (chronic kidney disease) Code(s): N18.9 - CHRONIC KIDNEY DISEASE, UNSPECIFIED (7) COPD (chronic obstructive pulmonary disease) Code(s): J44.9 - CHRONIC OBSTRUCTIVE PULMONARY DISEASE, UNSPECIFIED (8) Hypotension Code(s): I95.9 - HYPOTENSION, UNSPECIFIED (9) Lymphedema Code(s): I89.0 - LYMPHEDEMA, NOT ELSEWHERE CLASSIFIED (10) MRSA (methicillin resistant staph aureus) culture positive Code(s): Z22.322 - CARRIER OR SUSPECTED CARRIER OF METHICILLIN RESIS STAPH (11) Toxic metabolic encephalopathy Code(s): G92 - TOXIC ENCEPHALOPATHY Assessment/Plan ASSESSMENT AND PLAN: Acute Hypoxic Respiratory Failure Pneumonia suspect Aspiration ESBL E coli Bacteremia Septic Shock Bilateral Feet Gangrene Infected Decubitus Ulcers ESRD on HD DM HTN Hyperlipidemia h/o CVA - antibiotics per ID - midodrine - IVF boluses as needed - monitor H/H - local wound care - HD per renal - FiO2 to keep SpO2 >90% - aspiration precautions - DVT prophylaxis - chest x-ray - ID f/u DR GODINEZ
[2019-03-24] MEDS: MEROPENEM 500 MG in DEXTROSE 5%-WATER 100 ML IVPB SCH (10:22)
[2019-03-24] MEDS: MULTIVIT-MINERALS ORAL LIQUID NGT SCH (10:23)
[2019-03-24] MEDS: ESCITALOPRAM OXALATE 10 MG TABLET (FP) NGT SCH (10:23)
[2019-03-24] MEDS: PANTOPRAZOLE SODIUM 40 MG VIAL IVPUSH SCH ×2 (10:23→22:28)
[2019-03-24] MEDS: HYDROCORTISONE SOD SUCCINATE 100 MG/2 ML VIAL IVPB SCH ×2 (10:23→22:28)
[2019-03-24] MEDS: MIDODRINE HCL 5 MG TABLET NGT SCH ×3 (10:23→17:49)
[2019-03-24] MEDS: APIXABAN 2.5 MG TABLET GT SCH ×2 (10:23→22:28)
[2019-03-24] MEDS: COLLAGENASE CLOSTRIDIUM HIST. 30 GRAMS TUBE TP SCH (12:00)
--- NOTE | 2019-03-24 14:05 | PN ---
Progress Note, Physician History of Present Illness: Pt seen and examined at bedside. He remains lethargic and is hypothermic today. - Current Medication List Current Medications: Active Medications Amino Acids (Prosource No Carb Liquid Pkt) 30 ml NGT TID [facility] Last Admin: 03/24/19 05:51 Dose: 30 ml Apixaban (Eliquis -) 2.5 mg GT BID [facility] Last Admin: 03/24/19 10:23 Dose: 2.5 mg Atorvastatin Calcium (Lipitor -) 20 mg NGT HS [facility] Last Admin: 03/23/19 22:23 Dose: 20 mg Collagenase (Santyl -) 1 applic TP DAILY [facility]; Protocol Last Admin: 03/24/19 12:00 Dose: 1 applic Escitalopram Oxalate (Lexapro -) 10 mg NGT DAILY [facility] Last Admin: 03/24/19 10:23 Dose: 10 mg Hydrocortisone Sodium Succinate (Solu-Cortef -) 100 mg IVPB BID [facility] Last Admin: 03/24/19 10:23 Dose: 100 mg Meropenem 500 mg/ Dextrose 100 mls @ 200 mls/hr IVPB DAILY [facility] Last Admin: 03/24/19 10:22 Dose: 200 mls/hr Insulin Aspart (Novolog Vial Sliding Scale -) 1 vial SQ Q6HPO [facility]; Protocol Last Admin: 03/24/19 12:30 Dose: 2 units Midodrine (Proamatine -) 10 mg NGT TID-MID [facility] Last Admin: 03/24/19 10:23 Dose: 10 mg Morphine Sulfate (Morphine Sulfate) 2 mg IVPUSH Q4H PRN PRN Reason: PAIN LEVEL 6-10 Last Admin: 03/24/19 03:38 Dose: 2 mg Pantoprazole Sodium (Protonix Iv) 40 mg IVPUSH BID [facility] Last Admin: 03/24/19 10:23 Dose: 40 mg - Objective Vital Signs: Vital Signs Temperature 94.3 F L 03/24/19 10:00 Pulse Rate 82 03/24/19 10:00 Respiratory Rate 20 03/24/19 10:00 Blood Pressure 145/81 03/24/19 10:00 O2 Sat by Pulse Oximetry (%) 98 03/23/19 21:00 Constitutional: Yes: Calm Eyes: Yes: Conjunctiva Clear HENT: Yes: Atraumatic Neck: Yes: Supple Cardiovascular: Yes: S1, S2 Respiratory: Yes: On Venti-Mask Gastrointestinal: Yes: Soft Genitourinary: Yes: Incontinence Musculoskeletal: Yes: Muscle Weakness Edema: Yes Edema: LUE: Trace, RUE: Trace, LLE: Trace, RLE: Trace Wound/Incision: Yes: Other (odor from lower ext wounds) Neurological: Yes: Lethargy Labs: CBC, BMP 03/23/19 06:30 03/23/19 06:30 INR, PTT INR 1.44 (0.83-1.09) H 02/22/19 05:40 Problem List - Problems (1) ESRD (end stage renal disease) on dialysis Code(s): N18.6 - END STAGE RENAL DISEASE; Z99.2 - DEPENDENCE ON RENAL DIALYSIS Assessment/Plan Current Medications Generic Name Dose Route Start Last Admin Trade Name Freq PRN Reason Stop Dose Admin Amino Acids 30 ml 03/23/19 22:00 03/24/19 13:58 Prosource No Carb Liquid Pkt NGT 30 ml TID CHANTELL Administration Apixaban 2.5 mg 03/23/19 22:00 03/24/19 10:23 Eliquis - GT 2.5 mg BID CHANTELL Administration Atorvastatin Calcium 20 mg 03/23/19 22:00 03/23/19 22:23 Lipitor - NGT 20 mg HS CHANTELL Administration Collagenase 1 applic 03/22/19 10:00 03/24/19 12:00 Santyl - TP 1 applic DAILY CHANTELL Administration Protocol Escitalopram Oxalate 10 mg 03/24/19 10:00 03/24/19 10:23 Lexapro - NGT 10 mg DAILY CHANTELL Administration Hydrocortisone Sodium Succinate 100 mg 03/22/19 22:00 03/24/19 10:23 Solu-Cortef - IVPB 100 mg BID CHANTELL Administration Meropenem 500 mg/ Dextrose 100 mls @ 200 mls/hr 03/22/19 10:00 03/24/19 10:22 IVPB 200 mls/hr DAILY CHANTELL Administration Insulin Aspart 1 vial 03/22/19 00:00 03/24/19 12:30 Novolog Vial Sliding Scale - SQ 2 units Q6HPO CHANTELL Administration Protocol Midodrine 10 mg 03/23/19 18:00 03/24/19 13:58 Proamatine - NGT 10 mg TID-MID CHANTELL Administration Morphine Sulfate 2 mg 03/21/19 10:44 03/24/19 03:38 Morphine Sulfate IVPUSH 2 mg Q4H PRN Administration PAIN LEVEL 6-10 Pantoprazole Sodium 40 mg 03/21/19 22:00 03/24/19 10:23 Protonix Iv IVPUSH 40 mg BID CHANTELL Administration Impression 1. ESRD 2. gangrene 3. DM 4. hyperlipidemia 5. HTN 6. gout 7. proteinuria 8. hypotension 9. sepsis 10. resp failure 11. GI bleed Plan - pt dialyzed yesterday - 3 k bath on HD - cont wound care - abx per ID - pt is doing poorly
--- NOTE | 2019-03-24 14:45 | PN ---
Progress Note (short form) - Note Progress Note: responds to name f/u requested for hypothermia Vital Signs Period Temp Pulse Resp BP Sys/Zamorano Pulse Ox Last 24 Hr 94.1 F-96.8 F 81-90 20-20 136-145/76-81 98 cor-rrr lungs decreased bs at bases abd soft, ext +edema hands and legs dressing intact CBC, BMP 03/23/19 06:30 03/23/19 06:30 Microbiology 03/11/19 05:30 Blood - Peripheral Venous Blood Culture - Final NO GROWTH AFTER 5 DAYS INCUBATION 03/11/19 10:15 Sputum - Endotrachea Suction/Ventilator Gram Stain - Final 03/11/19 10:15 Sputum - Endotrachea Suction/Ventilator Sputum Culture - Final Mr S Aureus Escherichia Coli Esbl [employer]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 Acinetobacter Baumannii/Haemol Pseudomonas Aeruginosa 03/11/19 06:45 Blood - Peripheral Venous Blood Culture - Final Escherichia Coli Esbl Dem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 02/23/19 11:50 Blood - Peripheral Venous Blood Culture - Final NO GROWTH AFTER 5 DAYS INCUBATION 02/23/19 11:50 Blood - Peripheral Venous Blood Culture - Final NO GROWTH AFTER 5 DAYS INCUBATION 02/21/19 13:16 Blood - Peripheral Venous Blood Culture - Final Proteus Mirabilis Prevotella Melaninogenica 02/21/19 16:30 Foot - Left Heel Gram Stain - Final 02/21/19 16:30 Foot - Left Heel Wound Culture - Final Escherichia Coli Esbl Dem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 Morganella Morganii 02/21/19 15:40 Blood - Peripheral Venous Blood Culture - Final Proteus Mirabilis 02/21/19 14:50 Urine - Urine - Catheterized Urine Culture - Final NO GROWTH OBTAINED a/p GNR bacteremia-ecoli esbl bacteremia- continue meropenem hypothermia- reculture vanco/gent after blood cultures sspsis secondary to gangrenous legs esrd/hd overall prognosis is poor continue meropenem MDRO- strict contact isolation dedicated equipment Problem List - Problems (1) Gram negative sepsis Code(s): A41.50 - GRAM-NEGATIVE SEPSIS, UNSPECIFIED (2) Gangrene of both feet Code(s): I96 - GANGRENE, NOT ELSEWHERE CLASSIFIED (3) ESRD (end stage renal disease) on dialysis Code(s): N18.6 - END STAGE RENAL DISEASE; Z99.2 - DEPENDENCE ON RENAL DIALYSIS (4) MRSA (methicillin resistant 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 coli carrier Code(s): Z22.39 - CARRIER OF OTHER SPECIFIED BACTERIAL DISEASES (6) VRE (vancomycin-resistant Enterococci) Code(s): A49.1 - STREPTOCOCCAL INFECTION, UNSPECIFIED SITE; Z16.21 - RESISTANCE TO VANCOMYCIN
[2019-03-24] MEDS ORDERED: VANCOMYCIN 1 GRAM (PRE-DOCKED) 1,000 MG/250 ML BAG IVPB ONE (15:15)
[2019-03-24] MEDS ORDERED: GENTAMICIN INJECTION 120 MG in SODIUM CHLORIDE 250 ML IVPB ONE (16:00)
[2019-03-24] MEDS: ATORVASTATIN CA 20 MG TABLET (FP) NGT SCH (22:28)
[2019-03-25] MEDS: AMINO ACIDS/PROTEIN HYDROLYS 30 ML LIQUID.PKT NGT SCH ×2 (06:11→14:41)
[2019-03-25] MEDS: INSULIN SLIDING SCALE (NOVOLOG) 1 VIAL SQ SCH ×3 (06:11→17:27)
[2019-03-25 06:15] LABS: BASO % 0.1 % (0-2.0); HEMATOCRIT 27.9 % (35.4-49); HEMOGLOBIN 8.9 GM/dL (11.7-16.9); LYMPH % 4.2 % (8-40); MCH 29.9 pg (25.7-33.7); MCHC 31.9 g/dl (32.0-35.9); MEAN CELL VOLUME 93.8 fl (80-96); MEAN PLT VOLUME 11.5 fl (7.5-11.1); MONO % 4.2 % (3.8-10.2); NEUT % 91.5 % (42.8-82.8); PLATELET COUNT 78 K/MM3 (134-434); RBC 2.97 M/mm3 (4.00-5.60); RDW 19.8 % (11.9-15.9); WHITE BLOOD COUNT 13.7 K/mm3 (4.0-10.0)
[2019-03-25 06:37] LABS: BLOOD UREA NITROGEN 41.9 mg/dL (7-18); CREATININE 1.8 mg/dL (0.55-1.3)
[2019-03-25 06:41] LABS: CALCIUM 6.6 mg/dL (8.5-10.1)
[2019-03-25 09:09] LABS: ANISOCYTOSIS 2+; MACROCYTOSIS 1+; PLATELET ESTIMATE DECREASED; TARGET CELLS 1+
[2019-03-25] MEDS: KCL 10 MEQ IVPB 10 MEQ/100 ML INFUS.BAG IVPB SCH ×3 (10:00→12:17)
[2019-03-25] MEDS: ESCITALOPRAM OXALATE 10 MG TABLET (FP) NGT SCH (10:02)
[2019-03-25] MEDS: MULTIVIT-MINERALS ORAL LIQUID NGT SCH (10:02)
[2019-03-25] MEDS: MIDODRINE HCL 5 MG TABLET NGT SCH ×3 (10:03→17:25)
[2019-03-25] MEDS: MEROPENEM 500 MG in DEXTROSE 5%-WATER 100 ML IVPB SCH (10:03)
[2019-03-25] MEDS: APIXABAN 2.5 MG TABLET GT SCH (10:03)
[2019-03-25] MEDS: PANTOPRAZOLE SODIUM 40 MG VIAL IVPUSH SCH (10:06)
--- NOTE | 2019-03-25 11:20 | PN ---
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 Full code. septic shock, ESBL E coli bacteremia, rojas feet gangrene. -GOC/ethics meeting ongoing . overall poor prognosis noted. NGT in place for feedings. Lethargy. Continue NPO. Continue NGT for now. PEG via IR? if not medically contraindicated. f/u Palliative care.
[2019-03-25] MEDS: HYDROCORTISONE 20 MG TABLET PO SCH (12:17)
--- NOTE | 2019-03-25 13:45 | PN ---
Physical Exam: SUBJECTIVE: Patient seen this morning, no acute events overnight. OBJECTIVE: Vital Signs Temperature 98.6 F 03/25/19 08:00 Pulse Rate 110 H 03/25/19 08:00 Respiratory Rate 20 03/25/19 08:00 Blood Pressure 146/79 03/25/19 08:00 O2 Sat by Pulse Oximetry (%) 96 03/25/19 08:00 GENERAL: The patient is awake Ng tube in place HEAD: Normal with no signs of trauma. EYES: PERRL, extraocular movements intact, ENT: moist mucous membranes. NECK: Trachea midline, full range of motion, supple. LUNGS: Breath sounds equal, clear to auscultation bilaterally, no wheezes, no crackles, no accessory muscle use. HEART: Regular rate and rhythm, S1, S2 without murmur, rub or gallop. ABDOMEN: Soft, nontender, nondistended, normoactive bowel sounds EXTREMITIES: 2+ pulses, warm, well-perfused, no edema. SKIN: b/l gangrenous feet, skin sloughing, foul smelling CBC, BMP 03/25/19 05:35 03/25/19 05:35 Active Medications Albumin Human (Albumin Human 25%) 12.5 gm IVPB Q30M [facility] Amino Acids (Prosource No Carb Liquid Pkt) 30 ml NGT TID [facility] Last Admin: 03/25/19 14:41 Dose: 30 ml Apixaban (Eliquis -) 2.5 mg GT BID [facility] Last Admin: 03/25/19 10:03 Dose: 2.5 mg Atorvastatin Calcium (Lipitor -) 20 mg NGT HS [facility] Last Admin: 03/24/19 22:28 Dose: 20 mg Collagenase (Santyl -) 1 applic TP DAILY [facility]; Protocol Last Admin: 03/24/19 12:00 Dose: 1 applic Epoetin Jose (Epogen -) 12,000 unit IVPUSH ONCE ONE Stop: 03/26/19 13:52 Escitalopram Oxalate (Lexapro -) 10 mg NGT DAILY [facility] Last Admin: 03/25/19 10:02 Dose: 10 mg Hydrocortisone (Cortef -) 50 mg PO BID [facility] Last Admin: 03/25/19 12:17 Dose: 50 mg Meropenem 500 mg/ Dextrose 100 mls @ 200 mls/hr IVPB DAILY [facility] Last Admin: 03/25/19 10:03 Dose: 200 mls/hr Sodium Chloride (Normal Saline -) 250 mls @ 3,000 mls/hr IV PRN PRN PRN Reason: Hypotension during Dialysis Stop: 03/26/19 13:51 Insulin Aspart (Novolog Vial Sliding Scale -) 1 vial SQ Q6HPO [facility]; Protocol Last Admin: 03/25/19 12:19 Dose: 4 units Midodrine (Proamatine -) 10 mg NGT TID-MID [facility] Last Admin: 03/25/19 14:42 Dose: 10 mg Morphine Sulfate (Morphine Sulfate) 2 mg IVPUSH Q4H PRN PRN Reason: PAIN LEVEL 6-10 Last Admin: 03/24/19 03:38 Dose: 2 mg Pantoprazole Sodium (Protonix Iv) 40 mg IVPUSH BID [facility] Last Admin: 03/25/19 10:06 Dose: 40 mg ASSESSMENT/PLAN: 73 yo M PMH dementia, CVA, DM, COPD, ESRD, gout, HTN, HLP, recent admission 01/31- 02/19 during which he was treated for sepsis due to infected b/l feet ulcers/ gangrene. He was sent form [place] due to poor po intake, and worsening of ulcers. Now in septic shock 2/2 DM gangrenous B/L feet infx, Infected sacral decub and scrotal ulcer, and GN bacteremia , requiring ICU and pressors #septic shock 2/2 DM gangrenous B/L feet infx, Infected sacral decub and scrotal ulcer, and GN bacteremia (proteus, prevotella, ecoli esbl) c/b hypoxic respiratory failure 2/2 aspiration PNA requiring intubation/sedation - resolving. remains extubated and off pressors - old cx with E coli, ESBL, MRSA, and VRE. - contact isolation for MDRO - Bcx 02/21/19 growing GN cher - proteus and prevotella - wound cx E coli, morganella, Bcx 02/23/19 neg - 03/11/19 sputum cx MRSA, pseudomonas A,ecoli esbl, acinetobacter ; bcx ecoli esbl bacteremia. - MDRO: strict contact isolation - ID consulted, Rangel - Meropenem day #30 total abx, ID recs appreciated. - s/p vanc and gentamicin x1 03/13/19 per ID -Aspiration precautions. -vascular surgery consulted, Dr harry, for wound care. amputation indicated, but family not amenable. cont GOC #ESRD on HD (MWF) - nephro consulted (Dr. Henriquez) - HD as per nephro - sevalemer held by nephro for low phos. # h/o afib - c/w elequis 2.5 bid - metoprolol 12.5 BID started for afib on monitor (03/25) #Acute on chronic anemia likely 2/2 ESRD and sepsis -monitor H/H stable -maintain hgb above 7 #Transaminitis - likely 2/2 septic shock - avoid toxic drugs #Severe protein calorie malnutrition -albumin 1.1, prealbumin 3.5 -thin appearing, decreased muscle mass and fat -decreased overall PO intake, feeding through NG tube -Magic cup, Ensure pudding for increased density of nutritional intake. Now on NGT #COPD -keep SpO2>90% -Duonebs q6h PRN #Dm -ISS -BGM ACHS #Seizure-like myoclonus 03/12/19 - resolved #H/o hypotension : - c/w home midodrine - monitor vitals - decreased hydrocostisone to 50 BID #FEN -Not on any standing fluids -replete prn, replete K -NGT on tube feeds #Prophylaxis -Eliquis 2.5mg BID -Protonix IV while on AC and pressors -bacid #Disposition -full code -GOC/ethics consult placed, as we have attempted multiple times to contact daughter who has not been responsive and in the past has not been amenable to to allow for source control/amputation and standard of care. given patients inability to make decisions for himself and daughter unwillingness pt will likely cont to suffer w/o improvement and has spoor prognosis. multiple times various members of primary team and ICU team have tried contacting daughter for GOC/ethics meeting. Resident Dr Milton was able to make contact w/ daughter but no meaningful discussion was able to take place, please see Dr Milton note for further detail. brother has been contacted and has spoken w/ palliative. daughter will not be coming, This may constitute pt abandonment. palliative tried contacting pt other children/NOK, letters were sent out, but no response. family meeting 03/21/19, d/w family about pt clinical history/course and overall poor prognosis. pt father has decided to defer decision making to siblings. however there is some disagreement betw siblings regarding pt wishes. family will call us today w/ consensus and provide us a point of care contact. see spiritual care Jean Claude Corbett note for further details -given overall poor prognosis, conservative measures and comfort care may be appropriate -transferred to tele Visit type - Emergency Visit Emergency Visit: No - New Patient This patient is new to me today: No - Critical Care Critical Care patient: No
--- NOTE | 2019-03-25 13:51 | PN ---
Progress Note, Physician History of Present Illness: Pt seen and examined at bedside. He remains lethargic. - Current Medication List Current Medications: Active Medications Amino Acids (Prosource No Carb Liquid Pkt) 30 ml NGT TID [facility] Last Admin: 03/25/19 06:11 Dose: 30 ml Apixaban (Eliquis -) 2.5 mg GT BID [facility] Last Admin: 03/25/19 10:03 Dose: 2.5 mg Atorvastatin Calcium (Lipitor -) 20 mg NGT HS [facility] Last Admin: 03/24/19 22:28 Dose: 20 mg Collagenase (Santyl -) 1 applic TP DAILY [facility]; Protocol Last Admin: 03/24/19 12:00 Dose: 1 applic Escitalopram Oxalate (Lexapro -) 10 mg NGT DAILY [facility] Last Admin: 03/25/19 10:02 Dose: 10 mg Hydrocortisone (Cortef -) 50 mg PO BID [facility] Last Admin: 03/25/19 12:17 Dose: 50 mg Meropenem 500 mg/ Dextrose 100 mls @ 200 mls/hr IVPB DAILY [facility] Last Admin: 03/25/19 10:03 Dose: 200 mls/hr Insulin Aspart (Novolog Vial Sliding Scale -) 1 vial SQ Q6HPO [facility]; Protocol Last Admin: 03/25/19 12:19 Dose: 4 units Midodrine (Proamatine -) 10 mg NGT TID-MID [facility] Last Admin: 03/25/19 10:03 Dose: 10 mg Morphine Sulfate (Morphine Sulfate) 2 mg IVPUSH Q4H PRN PRN Reason: PAIN LEVEL 6-10 Last Admin: 03/24/19 03:38 Dose: 2 mg Pantoprazole Sodium (Protonix Iv) 40 mg IVPUSH BID [facility] Last Admin: 03/25/19 10:06 Dose: 40 mg Potassium Chloride (Potassium Chloride Oral Liquid) 20 meq PEG ONCE ONE Stop: 03/25/19 13:49 - Objective Vital Signs: Vital Signs Temperature 98.6 F 03/25/19 08:00 Pulse Rate 110 H 03/25/19 08:00 Respiratory Rate 20 03/25/19 08:00 Blood Pressure 146/79 03/25/19 08:00 O2 Sat by Pulse Oximetry (%) 96 03/25/19 08:00 Constitutional: Yes: Calm, Mild Distress Eyes: Yes: Conjunctiva Clear Cardiovascular: Yes: S1, S2 Respiratory: Yes: On Venti-Mask Gastrointestinal: Yes: Soft Genitourinary: Yes: Incontinence Edema: Yes Edema: LUE: 1+, RUE: 1+, LLE: 1+, RLE: 1+ Integumentary: Yes: Other (odor from wounds) Neurological: Yes: Lethargy Labs: CBC, BMP 03/25/19 05:35 03/25/19 05:35 INR, PTT INR 1.44 (0.83-1.09) H 02/22/19 05:40 Problem List - Problems (1) ESRD (end stage renal disease) on dialysis Code(s): N18.6 - END STAGE RENAL DISEASE; Z99.2 - DEPENDENCE ON RENAL DIALYSIS Assessment/Plan Current Medications Generic Name Dose Route Start Last Admin Trade Name Freq PRN Reason Stop Dose Admin Amino Acids 30 ml 03/23/19 22:00 03/25/19 06:11 Prosource No Carb Liquid Pkt NGT 30 ml TID [facility]TE[facility] Administration Apixaban 2.5 mg 03/23/19 22:00 03/25/19 10:03 Eliquis - GT 2.5 mg BID [facility]ANTELL Administration Atorvastatin Calcium 20 mg 03/23/19 22:00 03/24/19 22:28 Lipitor - NGT 20 mg HS [facility]TE[facility] Administration Collagenase 1 applic 03/22/19 10:00 03/24/19 12:00 Santyl - TP 1 applic DAILY [facility] Administration Protocol Escitalopram Oxalate 10 mg 03/24/19 10:00 03/25/19 10:02 Lexapro - NGT 10 mg DAILY [facility] Administration Hydrocortisone 50 mg 03/25/19 10:00 03/25/19 12:17 Cortef - PO 50 mg BID [facility]TELL Administration Meropenem 500 mg/ Dextrose 100 mls @ 200 mls/hr 03/22/19 10:00 03/25/19 10:03 IVPB 200 mls/hr DAILY [facility] Administration Insulin Aspart 1 vial 03/22/19 00:00 03/25/19 12:19 Novolog Vial Sliding Scale - SQ 4 units Q6HPO [facility] Administration Protocol Midodrine 10 mg 03/23/19 18:00 03/25/19 10:03 Proamatine - NGT 10 mg TID-MID [facility] Administration Morphine Sulfate 2 mg 03/21/19 10:44 03/24/19 03:38 Morphine Sulfate IVPUSH 2 mg Q4H PRN Administration PAIN LEVEL 6-10 Pantoprazole Sodium 40 mg 03/21/19 22:00 03/25/19 10:06 Protonix Iv IVPUSH 40 mg BID [facility] Administration Potassium Chloride 20 meq 03/25/19 13:48 Potassium Chloride Oral Liquid PEG 03/25/19 13:49 ONCE ONE Impression 1. ESRD 2. gangrene 3. DM 4. hyperlipidemia 5. HTN 6. gout 7. proteinuria 8. hypotension 9. sepsis 10. resp failure 11. GI bleed Plan - next HD tomorrow - feeds as tolerated - cont abx - replace potassium - 3 k bath on HD - cont wound care - pt is doing poorly
[2019-03-25] MEDS ORDERED: POTASSIUM CHLORIDE ORAL LIQUID 20 MEQ/15 ML PEG ONE (14:15)
[2019-03-25] MEDS: COLLAGENASE CLOSTRIDIUM HIST. 30 GRAMS TUBE TP SCH (15:00)
--- NOTE | 2019-03-25 15:12 | PN ---
Progress Note, Physician History of Present Illness: pulmonary letharic on 50% vm,-resp distress - Current Medication List Current Medications: Active Medications Albumin Human (Albumin Human 25%) 12.5 gm IVPB Q30M [facility] Amino Acids (Prosource No Carb Liquid Pkt) 30 ml NGT TID [facility] Last Admin: 03/25/19 14:41 Dose: 30 ml Apixaban (Eliquis -) 2.5 mg GT BID [facility] Last Admin: 03/25/19 10:03 Dose: 2.5 mg Atorvastatin Calcium (Lipitor -) 20 mg NGT HS [facility] Last Admin: 03/24/19 22:28 Dose: 20 mg Collagenase (Santyl -) 1 applic TP DAILY [facility]; Protocol Last Admin: 03/24/19 12:00 Dose: 1 applic Epoetin Jose (Epogen -) 12,000 unit IVPUSH ONCE ONE Stop: 03/26/19 13:52 Escitalopram Oxalate (Lexapro -) 10 mg NGT DAILY [facility] Last Admin: 03/25/19 10:02 Dose: 10 mg Hydrocortisone (Cortef -) 50 mg PO BID [facility] Last Admin: 03/25/19 12:17 Dose: 50 mg Meropenem 500 mg/ Dextrose 100 mls @ 200 mls/hr IVPB DAILY [facility] Last Admin: 03/25/19 10:03 Dose: 200 mls/hr Sodium Chloride (Normal Saline -) 250 mls @ 3,000 mls/hr IV PRN PRN PRN Reason: Hypotension during Dialysis Stop: 03/26/19 13:51 Insulin Aspart (Novolog Vial Sliding Scale -) 1 vial SQ Q6HPO [facility]; Protocol Last Admin: 03/25/19 12:19 Dose: 4 units Midodrine (Proamatine -) 10 mg NGT TID-MID [facility] Last Admin: 03/25/19 14:42 Dose: 10 mg Morphine Sulfate (Morphine Sulfate) 2 mg IVPUSH Q4H PRN PRN Reason: PAIN LEVEL 6-10 Last Admin: 03/24/19 03:38 Dose: 2 mg Pantoprazole Sodium (Protonix Iv) 40 mg IVPUSH BID [facility] Last Admin: 03/25/19 10:06 Dose: 40 mg - Objective Vital Signs: Vital Signs Temperature 98.6 F 03/25/19 08:00 Pulse Rate 110 H 03/25/19 08:00 Respiratory Rate 20 03/25/19 08:00 Blood Pressure 146/79 03/25/19 08:00 O2 Sat by Pulse Oximetry (%) 96 03/25/19 08:00 Constitutional: Yes: Obese, Other (lethargic) Eyes: Yes: WNL HENT: Yes: WNL Neck: Yes: WNL Cardiovascular: Yes: Pulse Irregular, S1, S2 Respiratory: Yes: Rhonchi (few rhonchi) Gastrointestinal: Yes: Normal Bowel Sounds, Soft Extremities: Yes: WNL Edema: Yes Labs: CBC, BMP 03/25/19 05:35 03/25/19 05:35 INR, PTT INR 1.44 (0.83-1.09) H 02/22/19 05:40 - ....Imaging Chest X-ray: Report Reviewed Problem List - Problems (1) ESBL E. coli carrier Code(s): Z22.39 - CARRIER OF OTHER SPECIFIED BACTERIAL DISEASES (2) Gram negative sepsis Code(s): A41.50 - GRAM-NEGATIVE SEPSIS, UNSPECIFIED (3) Sacral decubitus ulcer Code(s): L89.159 - PRESSURE ULCER OF SACRAL REGION, UNSPECIFIED STAGE (4) Sepsis Code(s): A41.9 - SEPSIS, UNSPECIFIED ORGANISM (5) Acute hypoxemic respiratory failure Code(s): J96.01 - ACUTE RESPIRATORY FAILURE WITH HYPOXIA (6) CKD (chronic kidney disease) Code(s): N18.9 - CHRONIC KIDNEY DISEASE, UNSPECIFIED (7) COPD (chronic obstructive pulmonary disease) Code(s): J44.9 - CHRONIC OBSTRUCTIVE PULMONARY DISEASE, UNSPECIFIED (8) Hypotension Code(s): I95.9 - HYPOTENSION, UNSPECIFIED (9) Lymphedema Code(s): I89.0 - LYMPHEDEMA, NOT ELSEWHERE CLASSIFIED (10) MRSA (methicillin resistant staph aureus) culture positive Code(s): Z22.322 - CARRIER OR SUSPECTED CARRIER OF METHICILLIN RESIS STAPH (11) Toxic metabolic encephalopathy Code(s): G92 - TOXIC ENCEPHALOPATHY Assessment/Plan ASSESSMENT AND PLAN: Acute Hypoxic Respiratory Failure Pneumonia suspect Aspiration ESBL E coli Bacteremia Septic Shock Bilateral Feet Gangrene Infected Decubitus Ulcers ESRD on HD DM HTN Hyperlipidemia h/o CVA - continue antibiotics per ID - midodrine - monitor H/H - local wound care - HD per renal - FiO2 to keep SpO2 >90% - aspiration precautions - DVT prophylaxis - prognosis poor DR GODINEZ
[2019-03-25] MEDS: MORPHINE SULFATE 2 MG/ML VIAL IVPUSH PRN (16:34)
--- NOTE | 2019-03-25 17:09 | PN ---
Teaching Attending Note Name of Resident: Latisha Rowe ATTENDING PHYSICIAN STATEMENT I saw and evaluated the patient. I reviewed the resident's note and discussed the case with the resident. I agree with the resident's findings and plan as documented. SUBJECTIVE: No events OBJECTIVE: NAD, opened eyes to commands . venti mask on CV: RRR, no MRG Lungs: clear anteriorly. Abd:slightly distended, NL BS sacral and scrotal area with no change in wounds. no drainage . feet with exposed tendons, foul smelling discharge , gangrenous tissue ASSESSMENT AND PLAN: 73 y/o man with h/o dementia, CVA, DM, COPD, ESRD, gout, HTN, HLP, recent admission 01/31-02/19 during which he was treated for sepsis due to infected b/l feet ulcers/gangrene. He was sent [facility] [place] due to poor po intake, and non healing wounds 1- Acute hypoxic resp failure, extubated 2- Septic shock resolved 3- Infected sacral decub and scrotal ulcer 4- Proteus bacteremia ,ESBL producing E coli bacteremia 5- ESRD 6- DM 7- Infected gangrenous feet wounds 8- anemia 9- A fib with RVR Plan: - cont meropenem - decrease hydrocortisone to 50 BID - follow repeat cx - due to recurrent episodes of A fib , start low dose BB and monitor BP - keppra stopped on 03/13 , if seizures recur then can resume - HD per schedule - monitor and replete electrolytes - SSI Poor prognosis. awaiting to hear back form sister and brothers . last palliative care note reviewed.
[2019-03-25 20:56] LABS: BASO % 0.1 % (0-2.0); HEMATOCRIT 32.8 % (35.4-49); HEMOGLOBIN 10.1 GM/dL (11.7-16.9); LYMPH % 1.9 % (8-40); MCH 29.6 pg (25.7-33.7); MCHC 30.9 g/dl (32.0-35.9); MEAN CELL VOLUME 95.8 fl (80-96); MEAN PLT VOLUME 11.5 fl (7.5-11.1); MONO % 4.3 % (3.8-10.2); NEUT % 93.7 % (42.8-82.8); PLATELET COUNT 96 K/MM3 (134-434); RBC 3.42 M/mm3 (4.00-5.60); RDW 20.3 % (11.9-15.9)
[2019-03-25 20:57] LABS: ARTERIAL BLD GAS O2 SATURATION 95.4 % (95-98); ARTERIAL BLOOD GAS BASE EXCESS -3.1 meq/l (-2-2)
--- NOTE | 2019-03-25 20:58 | RAPID ---
Physical Examination Vital Signs: Vital Signs Temperature 97.7 F 03/25/19 17:21 Pulse Rate 120 H 03/25/19 17:21 Respiratory Rate 18 03/25/19 17:21 Blood Pressure 143/88 03/25/19 17:21 O2 Sat by Pulse Oximetry (%) 96 03/25/19 08:00 Constitutional: Yes: Obese Eyes: Yes: WNL HENT: Yes: Other (NGT at 65cm) Neck: Yes: Other (Left IJ. Right HD cath) Cardiovascular: Yes: Regular Rate and Rhythm Respiratory: Yes: Accessory Muscle Use, Rhonchi, Other (on nonrebreather) Gastrointestinal: Yes: WNL, Soft, Abdomen, Obese Edema: Yes Edema: LUE: 2+, RUE: 2+ Neurological: Yes: Unresponsive Psychiatric: Yes: Other (A&Ox0) Labs: CBC, BMP 03/25/19 05:35 03/25/19 05:35 Rapid Response - Rapid Response Assessment: RAPID RESPONSE NOTE 03/25/19 20:44 S: Rapid response called to due to concern for increased work of breathing, desaturation to 70s. Placed on nonrebreather. Extubated on the O: HR 88, BP 127/74, O2 97%, tachypneic Gen: A&Ox0, not following commands Head: NGT in place with trickle feeds Chest: lungs crackling b/l throughout Abd: soft, ND, nonTTP [id number] Extr: b/l UE edema P: - stat labs: ABG, CBC, BMP, Mg, Phosph - stat CXR - possible intubation Michael Renee DO PGY-1 Medicine Night Float [id number] 03/25/19 A: increased respiratory need, possibly 2/2 to hypervolemia vs aspiration PNA Outcome: Admission to ICU for intubation Recommendations/Interventions: -stat labs: CBC, BMP, Mg, Phosph, ABG, lactate -stat CXR Plan: -Admit to ICU for intubation -family updated: Father(Mason) aware. Daughter and son did not answer phone
[2019-03-25 21:19] LABS: ALLENS TEST POSITIVE
[2019-03-25 21:20] LABS: ARTERIAL BLOOD GAS pH 7.16 (7.35-7.45)
[2019-03-25 21:21] LABS: ARTERIAL BLOOD GAS PCO2 76.8 mmHg (35-45)
[2019-03-25 21:31] LABS: BLOOD UREA NITROGEN 49.7 mg/dL (7-18); CALCIUM 7.1 mg/dL (8.5-10.1); CREATININE 2.1 mg/dL (0.55-1.3); MAGNESIUM 1.9 mg/dL (1.8-2.4); PHOSPHOROUS 3.5 mg/dL (2.5-4.9); POTASSIUM 3.2 mmol/L (3.5-5.1)
[2019-03-25 21:40] LABS: PLATELET ESTIMATE DECREASED
[2019-03-25] MEDS ORDERED: RAPID SEQUENCE INTUBATION KIT NR ONE (21:49)
[2019-03-25] MEDS ORDERED: NOREPINEPHRINE BITARTRATE 4 MG/4 ML ML IV ONE (21:50)
[2019-03-25] MEDS ORDERED: NOREPINEPHRINE BITARTRATE 8,000 MCG in DEXTROSE 5%-WATER - 492 ML IV SCH (22:00)
--- NOTE | 2019-03-25 22:35 | CONSULT ---
Consultation: REQUESTING PROVIDER: Dr. Mera CONSULT REQUEST: We have been asked to medically evaluate this patient for Acute hypercapnic respiratory failure HISTORY OF PRESENT ILLNESS: 73 year old male with a past medical history of end stage renal disease on dialysis, peripheral vascular disease, hyperlipidemia, diabetes mellitus, COPD, bilateral gangrenous feet initially presented from the long-term for failure to thrive and worsening wounds. Patient has had a prolonged hospitalization with previous ICU care on this admission. He was managed for many weeks for septic shock secondary to bilateral foot/leg gangrene and MRSA bacteremia and E coli ESBL in the wounds, acinetobacter, pseudomonas, E coli ESBL, and MRSA in the sputum. Patient has had to be put on multiple pressors during his previous ICU stay. He has a complicated family/surrogate situation currently being established by palliative/ethics/primary teams. Daughter, who has been the patient's next of kin/proxy has been unreachable by our staff, including me. From previous notes, she had indicated that she would be unreachable "indefinitely". Around 1 week ago, we were able to wean patient off of both levophed and vasopressin and safely downgrade to telemetry unit. Today, a rapid response was called around 8:43pm. When we arrived to the floor, nurse informed us that the patient was desaturating to the 80's. We examined the patient and placed him on non-rebreather mask. He continued to desaturate. A chest XR was performed that showed complete white out of the R lung with R bronchus not visualized at all. Patient was suctioned and it appeared that he had aspirated his tube feeds. He was brought to the ICU and intubated for airway control and management. Patient's daughter Molly was called to inform her of the event, however she did not answer her phone. subsequently, patient's father Lokesh was called and informed of the present event. Patient is now intubated, not yet on sedation. No pressors are currently indicated. He is not responsive and is unable to offer a history. REVIEW OF SYSTEMS: Unable to assess due to mental status PHYSICAL EXAMINATION Vital Signs - 24 hr 03/25/19 03/25/19 03/25/19 02:00 06:00 08:00 Temperature 98.7 F 98.6 F 98.6 F Pulse Rate 106 H 107 H 110 H Respiratory 20 20 20 Rate Blood Pressure 127/66 119/81 146/79 O2 Sat by Pulse 96 Oximetry (%) 03/25/19 03/25/19 03/25/19 14:30 17:21 22:28 Temperature 97.8 F 97.7 F Pulse Rate 106 H 120 H Respiratory 20 18 12 Rate Blood Pressure 151/97 143/88 O2 Sat by Pulse Oximetry (%) GENERAL: A&Ox0, no acute distress, intubated ENT: Dry mucus membranes NECK: No JVD LUNGS: Coarse breath sounds bilaterally, more audible on L vs R HEART: regular rate and rhythm, no murmurs ABDOMEN: Soft, nontender, BS present MUSCULOSKELETAL: No CVA Tenderness EXTREMITIES: 2+ pulses, 3+ edema bilaterally NEUROLOGICAL: Unable to assess mental status SKIN: bilateral gangrene lower ext down to the tendon on the left with purulent foul smelling discharge. Unstageble sacral ulcer Laboratory Results - last 24 hr 03/24/19 03/25/19 03/25/19 23:48 05:35 05:35 WBC 13.7 H RBC 2.97 L Hgb 8.9 L Hct 27.9 L MCV 93.8 MCH 29.9 MCHC 31.9 L RDW 19.8 H Plt Count 78 L D MPV 11.5 H Absolute Neuts (auto) 12.5 H Total Counted Neutrophils % 91.5 H Neutrophils % (Manual) 93.9 H Band Neutrophils % 0.0 Lymphocytes % 4.2 L Lymphocytes % (Manual) 1.0 L D Monocytes % 4.2 D Monocytes % (Manual) 5 D Eosinophils % 0.0 Eosinophils % (Manual) 0.0 Basophils % 0.1 Basophils % (Manual) 0.0 Myelocytes % (Man) 0 Promyelocytes % (Man) 0 Blast Cells % (Manual) 0 Nucleated RBC % 3 H Metamyelocytes 0 Hypochromia 1+ Platelet Estimate Decreased Platelet Comment Polychromasia 0 Poikilocytosis 1+ Basophilic Stippling 1+ Anisocytosis 2+ Microcytosis 1+ Macrocytosis 1+ Spherocytes 1+ Target Cells 1+ Stomatocytes 1+ Anticoagulation Therapy Puncture Site ABG pH ABG pCO2 at Pt Temp ABG pO2 at Pt Temp ABG HCO3 ABG O2 Sat (Measured) ABG O2 Content ABG Base Excess Johan Test O2 Delivery Device Oxygen Flow Rate Vent Mode Vent Rate Mechanical Rate Pressure Support Vent Sodium 139 Potassium 3.0 L Chloride 103 Carbon Dioxide 30 Anion Gap 6 L BUN 41.9 H Creatinine 1.8 H Est GFR (CKD-EPI)AfAm 42.03 Est GFR (CKD-EPI)NonAf 36.27 POC Glucometer 182 Random Glucose 194 H Lactic Acid Calcium 6.6 L* Phosphorus Magnesium 03/25/19 03/25/19 03/25/19 06:10 12:19 17:26 WBC RBC Hgb Hct MCV MCH MCHC RDW Plt Count MPV Absolute Neuts (auto) Total Counted Neutrophils % Neutrophils % (Manual) Band Neutrophils % Lymphocytes % Lymphocytes % (Manual) Monocytes % Monocytes % (Manual) Eosinophils % Eosinophils % (Manual) Basophils % Basophils % (Manual) Myelocytes % (Man) Promyelocytes % (Man) Blast Cells % (Manual) Nucleated RBC % Metamyelocytes Hypochromia Platelet Estimate Platelet Comment Polychromasia Poikilocytosis Basophilic Stippling Anisocytosis Microcytosis Macrocytosis Spherocytes Target Cells Stomatocytes Anticoagulation Therapy Puncture Site ABG pH ABG pCO2 at Pt Temp ABG pO2 at Pt Temp ABG HCO3 ABG O2 Sat (Measured) ABG O2 Content ABG Base Excess Johan Test O2 Delivery Device Oxygen Flow Rate Vent Mode Vent Rate Mechanical Rate Pressure Support Vent Sodium Potassium Chloride Carbon Dioxide Anion Gap BUN Creatinine Est GFR (CKD-EPI)AfAm Est GFR (CKD-EPI)NonAf POC Glucometer 187 229 167 Random Glucose Lactic Acid Calcium Phosphorus Magnesium 03/25/19 03/25/19 03/25/19 20:35 20:35 20:35 WBC 24.0 H RBC 3.42 L Hgb 10.1 L Hct 32.8 L D MCV 95.8 MCH 29.6 MCHC 30.9 L RDW 20.3 H Plt Count 96 L D MPV 11.5 H Absolute Neuts (auto) 22.4 H Total Counted 100 Neutrophils % 93.7 H Neutrophils % (Manual) 90.0 H Band Neutrophils % 4.0 Lymphocytes % 1.9 L D Lymphocytes % (Manual) 1.0 L Monocytes % 4.3 Monocytes % (Manual) 5 Eosinophils % 0.0 Eosinophils % (Manual) Basophils % 0.1 Basophils % (Manual) Myelocytes % (Man) Promyelocytes % (Man) Blast Cells % (Manual) Nucleated RBC % 1 H Metamyelocytes Hypochromia Platelet Estimate Decreased Platelet Comment No clumping noted Polychromasia Poikilocytosis Basophilic Stippling Anisocytosis Microcytosis Macrocytosis Spherocytes Target Cells Stomatocytes Anticoagulation Therapy Puncture Site ABG pH ABG pCO2 at Pt Temp ABG pO2 at Pt Temp ABG HCO3 ABG O2 Sat (Measured) ABG O2 Content ABG Base Excess Johan Test O2 Delivery Device Oxygen Flow Rate Vent Mode Vent Rate Mechanical Rate Pressure Support Vent Sodium 138 Potassium 3.2 L Chloride 102 Carbon Dioxide 29 Anion Gap 6 L BUN 49.7 H Creatinine 2.1 H Est GFR (CKD-EPI)AfAm 34.89 Est GFR (CKD-EPI)NonAf 30.10 POC Glucometer Random Glucose 173 H Lactic Acid 1.5 Calcium 7.1 L Phosphorus 3.5 Magnesium 1.9 03/25/19 20:45 WBC RBC Hgb Hct MCV MCH MCHC RDW Plt Count MPV Absolute Neuts (auto) Total Counted Neutrophils % Neutrophils % (Manual) Band Neutrophils % Lymphocytes % Lymphocytes % (Manual) Monocytes % Monocytes % (Manual) Eosinophils % Eosinophils % (Manual) Basophils % Basophils % (Manual) Myelocytes % (Man) Promyelocytes % (Man) Blast Cells % (Manual) Nucleated RBC % Metamyelocytes Hypochromia Platelet Estimate Platelet Comment Polychromasia Poikilocytosis Basophilic Stippling Anisocytosis Microcytosis Macrocytosis Spherocytes Target Cells Stomatocytes Anticoagulation Therapy No Result Required. Puncture Site No Result Required. ABG pH 7.16 L* ABG pCO2 at Pt Temp 76.8 H* ABG pO2 at Pt Temp 97.0 ABG HCO3 26.5 ABG O2 Sat (Measured) 95.4 ABG O2 Content 14.7 L ABG Base Excess -3.1 L Johan Test Positive O2 Delivery Device No Result Required. Oxygen Flow Rate No Result Required. Vent Mode No Result Required. Vent Rate No Result Required. Mechanical Rate No Result Required. Pressure Support Vent No Result Required. Sodium Potassium Chloride Carbon Dioxide Anion Gap BUN Creatinine Est GFR (CKD-EPI)AfAm Est GFR (CKD-EPI)NonAf POC Glucometer Random Glucose Lactic Acid Calcium Phosphorus Magnesium Active Medications Generic Name Dose Route Start Last Admin Trade Name Freq PRN Reason Stop Dose Admin Albumin Human 12.5 gm 03/26/19 14:00 Albumin Human 25% IVPB Q30M CHANTELL Amino Acids 30 ml 03/23/19 22:00 03/25/19 14:41 Prosource No Carb Liquid Pkt NGT 30 ml TID CHANTELL Administration Apixaban 2.5 mg 03/23/19 22:00 03/25/19 10:03 Eliquis - GT 2.5 mg BID CHANTELL Administration Atorvastatin Calcium 20 mg 03/23/19 22:00 03/24/19 22:28 Lipitor - NGT 20 mg HS CHANTELL Administration Collagenase 1 applic 03/22/19 10:00 03/25/19 15:00 Santyl - TP 1 applic DAILY CHANTELL Administration Protocol Epoetin Jose 12,000 unit 03/26/19 13:51 Epogen - IVPUSH 03/26/19 13:52 ONCE ONE Escitalopram Oxalate 10 mg 03/24/19 10:00 03/25/19 10:02 Lexapro - NGT 10 mg DAILY CHANTELL Administration Hydrocortisone 50 mg 03/25/19 10:00 03/25/19 12:17 Cortef - PO 50 mg BID CHANTELL Administration Meropenem 500 mg/ Dextrose 100 mls @ 200 mls/hr 03/22/19 10:00 03/25/19 10:03 IVPB 200 mls/hr DAILY CHANTELL Administration Sodium Chloride 250 mls @ 3,000 mls/hr 03/25/19 13:51 Normal Saline - IV 03/26/19 13:51 PRN PRN Hypotension during Dialysis Norepinephrine Bitartrate 8, 500 mls @ 10.56 mls/hr 03/25/19 22:00 000 mcg/ Dextrose IV ASDIR CHANTELL Protocol 0.03 MCG/KG/MIN Insulin Aspart 1 vial 03/22/19 00:00 03/25/19 17:27 Novolog Vial Sliding Scale - SQ 2 units Q6HPO CHANTELL Administration Protocol Metoprolol Tartrate 12.5 mg 03/25/19 22:00 Lopressor - PO BID CHANTELL Midodrine 10 mg 03/23/19 18:00 03/25/19 17:25 Proamatine - NGT 10 mg TID-MID CHANTELL Administration Morphine Sulfate 2 mg 03/21/19 10:44 03/25/19 16:34 Morphine Sulfate IVPUSH 2 mg Q4H PRN Administration PAIN LEVEL 6-10 Pantoprazole Sodium 40 mg 03/21/19 22:00 03/25/19 10:06 Protonix Iv IVPUSH 40 mg BID CHANTELL Administration ASSESSMENT/PLAN: 73 year old male with a past medical history of end stage renal disease on dialysis, peripheral vascular disease, hyperlipidemia, diabetes mellitus, COPD, bilateral gangrenous legs admitted for septic shock 2/2 b/l foot ulcers/ gangrene and prolonged hospitalization now in ICU s/p aspiration tube feeds Neurologic -not alert or oriented -eyes not tracking -intubated but not sedated Cardiovascular -BP low normal with maps continually ~64-70 off pressors -central line in place in the event we need pressors -on eliquis for afib, however patient remains in sinus rhythm -rate control with BB as needed, monitor BP -on midodrine for BP Pulmonary -pulmonary status was compromised by aspiration, CXR revealed complete white out of R lung -deep suction was initiated and around 40-50cc of tube feeds were suctioned out of oropharynx and proximal trachea -ABG prior to intubation showed respiratory acidosis with a pH of 7.1 and hypercarbia -patient was intubated and placed on vent with the following settings: TV 450, rate 12, 100% FiO2, 5 PEEP, appears to be saturating well -repeat CXR shows interval resolution of white out of R lung, still many congestive changes -will repeat ABG -patient already on meropenem -on hydrocortisone 50 BID, will likely transition him to IV -duonebs q6h prn Gastrointestinal -tube feeds will be held in setting of aspiration -on CXR the stomach appeared distended, likely as the cause of his aspiration -on protonix IV BID for prior suspected GIB -will attach NGT to suction and consider transitioning to IV medication if no improvement by the AM Renal -patient getting dialysis per nephro -hypoalbuminemic due to malnutrition, which is likely the cause of patient third spacing his fluids Heme/Onc -anemia likely 2/2 ESRD and decreased erythropoitin -continue EPO -maintain H&H above 7 by transfusions as needed Endocrine -has diabetes mellitus -BGMs -ISS ID -septic shock, treated with meropenem, continue -ID consultation appreciated Prophylaxis -Eliquis 2.5mg BID -Protonix IV while on AC and pressors -bacid #Disposition -we will follow patient in ICU -attempted to call daughter Molly to inform her of today's events, no answer after calling around (9:40pm). Instead, was able to reach patient's father Lokesh, who answered and discussed with me Ren's current situation. Palliative and ethics teams are on board and continuing to meet and discuss goals of care with family. Visit type - Emergency Visit Emergency Visit: No - New Patient This patient is new to me today: No - Critical Care Critical Care patient: Yes Total Critical Care Time (in minutes): 40 Critical Care Statement: The care of this patient involved high complexity decision making to prevent further life threatening deterioration of the patient 's condition and/or to evaluate & treat vital organ system(s) failure or risk of failure.
--- NOTE | 2019-03-25 22:57 | ED.PROV ---
Physicial Exam I saw and examined the patient. - Vital Signs Last Vital Signs Temp Pulse Resp BP Pulse Ox 97.7 F 120 H 12 143/88 96 03/25/19 17:21 03/25/19 17:21 03/25/19 22:28 03/25/19 17:21 03/25/19 08:00 Procedures - Intubation Time of Intubation: 22:30 Intubation Method: orotracheal Blade used: Mac Tube Size (Fr): 7.5 Tube position confirmed by: Direct visualization, Breath sounds Breath Sounds after Intubation: equal Intubation Complications: no complications Post Intubation Xray: Yes (ett just above kelly) Critical Care Time/MDM Note - Medical Decision Making Note: 03/25/19 22:57 Called from emergency department to assist with difficult intubation in the ICU after failed attempt by ICU staff due to possible aspiration and material in the airway.
[2019-03-26 00:24] LABS: ARTERIAL BLD GAS O2 SATURATION 99.7 % (95-98); ARTERIAL BLOOD GAS BASE EXCESS 0.5 meq/l (-2-2); ARTERIAL BLOOD GAS PO2 197 mmHg (80-105); ARTERIAL BLOOD GAS pH 7.36 (7.35-7.45)
[2019-03-26 00:27] LABS: ALLENS TEST POSITIVE
[2019-03-26] MEDS: INSULIN SLIDING SCALE (NOVOLOG) 1 VIAL SQ SCH ×5 (00:31→23:55)
[2019-03-26] MEDS: HYDROCORTISONE 20 MG TABLET PO SCH ×3 (00:33→22:04)
[2019-03-26] MEDS: APIXABAN 2.5 MG TABLET GT SCH ×2 (00:33→09:27)
[2019-03-26] MEDS: ATORVASTATIN CA 20 MG TABLET (FP) NGT SCH ×2 (00:39→22:03)
[2019-03-26] MEDS: METOPROLOL TARTRATE 25 MG TABLET (FP) PO SCH ×4 (00:40→23:01)
[2019-03-26 06:25] LABS: BASO % 0.1 % (0-2.0); HEMATOCRIT 29.1 % (35.4-49); HEMOGLOBIN 9.2 GM/dL (11.7-16.9); LYMPH % 6.5 % (8-40); MCH 29.8 pg (25.7-33.7); MCHC 31.7 g/dl (32.0-35.9); MEAN CELL VOLUME 94.1 fl (80-96); MEAN PLT VOLUME 11.1 fl (7.5-11.1); MONO % 3.3 % (3.8-10.2); NEUT % 90.1 % (42.8-82.8); PLATELET COUNT 62 K/MM3 (134-434); RDW 20.1 % (11.9-15.9); WHITE BLOOD COUNT 24.1 K/mm3 (4.0-10.0)
[2019-03-26] MEDS: AMINO ACIDS/PROTEIN HYDROLYS 30 ML LIQUID.PKT NGT SCH ×3 (06:26→22:04)
[2019-03-26 07:02] LABS: BLOOD UREA NITROGEN 55.5 mg/dL (7-18)
[2019-03-26 08:00] LABS: CALCIUM 6.7 mg/dL (8.5-10.1); POTASSIUM 2.8 mmol/L (3.5-5.1)
[2019-03-26] MEDS ORDERED: POTASSIUM CHLORIDE ORAL LIQUID 20 MEQ/15 ML NGT ONE (08:04)
[2019-03-26] MEDS ORDERED: POTASSIUM CHLORIDE 20 MEQ PREMIX IVPB 100 ML IVPB ONE (08:11)
[2019-03-26] MEDS ORDERED: PT OWN MED DRAWER 7, Y5N ONE ×2 (08:52→21:59)
[2019-03-26] MEDS: KCL 10 MEQ IVPB 10 MEQ/100 ML INFUS.BAG IVPB SCH ×3 (09:00→13:47)
[2019-03-26] MEDS: MULTIVIT-MINERALS ORAL LIQUID NGT SCH (09:26)
[2019-03-26] MEDS: PANTOPRAZOLE SODIUM 40 MG VIAL IVPUSH SCH ×2 (09:26→22:03)
[2019-03-26] MEDS: MIDODRINE HCL 5 MG TABLET NGT SCH ×3 (09:26→18:15)
[2019-03-26] MEDS: ESCITALOPRAM OXALATE 10 MG TABLET (FP) NGT SCH (09:27)
[2019-03-26] MEDS ORDERED: SODIUM CHLORIDE 250 ML IV PRN (09:37)
[2019-03-26] MEDS ORDERED: EPOETIN ALFA 10,000 UNIT/1 ML VIAL IVPUSH ONE (09:45)
[2019-03-26] MEDS ORDERED: METOPROLOL TARTRATE 25 MG TABLET (FP) PO SCH (09:46)
[2019-03-26] MEDS ORDERED: POTASSIUM CHLORIDE ORAL LIQUID 20 MEQ/15 ML PO SCH (10:00)
[2019-03-26 10:48] LABS: ANISOCYTOSIS 1+; MACROCYTOSIS 0; PLATELET ESTIMATE DECREASED
[2019-03-26] MEDS: ALBUMIN HUMAN 25% 12.5 GM/50 ML VIAL IVPB SCH ×4 (11:27→12:54)
--- NOTE | 2019-03-26 12:19 | PN ---
Physical Exam: SUBJECTIVE: Briefly, pt noted to aspirate and was intubated for airway protection and worsening respiratory distress. Pt transferred to the ICU last night. Since transfer pt's hemodynamics remained stable. GOC talks continued. Pt currently AC mode of vent without any need for pressors. OBJECTIVE: Vital Signs Period Temp Pulse Resp BP Sys/Zamorano Pulse Ox Last 24 Hr 97.6 F-98 F 58-120 12-24 90-151/51-97 98-100 GENERAL: Intubated, not sedated, awake to palpation. HEENT: ETT in place with secretions noted, NG noted NECK: L IJ C/D/I LUNGS: Scattered rhonchi bilaterally (R>L), no wheezes. AC mode of vent FiO2 titrated to SpO2 >90% HEART: RRR, S1, S2 without murmur ABDOMEN: Soft, NT/ND, hypoactive bowel sounds, no guarding, slight abdominal wall edema SACRUM: Not examined today EXTREMITIES: 2+ upper extremity edema, lower extremity weeping wounds bandaged with drainage noted and foul odor SKIN: Warm, dry, no rashes Laboratory Results - last 24 hr 03/25/19 03/25/19 03/25/19 12:19 17:26 20:35 WBC 24.0 H RBC 3.42 L Hgb 10.1 L Hct 32.8 L D MCV 95.8 MCH 29.6 MCHC 30.9 L RDW 20.3 H Plt Count 96 L D MPV 11.5 H Absolute Neuts (auto) 22.4 H Total Counted 100 Neutrophils % 93.7 H Neutrophils % (Manual) 90.0 H Band Neutrophils % 4.0 Lymphocytes % 1.9 L D Lymphocytes % (Manual) 1.0 L Monocytes % 4.3 Monocytes % (Manual) 5 Eosinophils % 0.0 Eosinophils % (Manual) Basophils % 0.1 Basophils % (Manual) Myelocytes % (Man) Promyelocytes % (Man) Blast Cells % (Manual) Nucleated RBC % 1 H Metamyelocytes Hypochromia Platelet Estimate Decreased Platelet Comment No clumping noted Polychromasia Poikilocytosis Anisocytosis Microcytosis Macrocytosis Anticoagulation Therapy Puncture Site ABG pH ABG pCO2 at Pt Temp ABG pO2 at Pt Temp ABG HCO3 ABG O2 Sat (Measured) ABG O2 Content ABG Base Excess Johan Test O2 Delivery Device Oxygen Flow Rate Vent Mode Vent Rate Mechanical Rate PEEP Pressure Support Vent Sodium Potassium Chloride Carbon Dioxide Anion Gap BUN Creatinine Est GFR (CKD-EPI)AfAm Est GFR (CKD-EPI)NonAf POC Glucometer 229 167 Random Glucose Lactic Acid Calcium Phosphorus Magnesium 03/25/19 03/25/19 03/25/19 20:35 20:35 20:45 WBC RBC Hgb Hct MCV MCH MCHC RDW Plt Count MPV Absolute Neuts (auto) Total Counted Neutrophils % Neutrophils % (Manual) Band Neutrophils % Lymphocytes % Lymphocytes % (Manual) Monocytes % Monocytes % (Manual) Eosinophils % Eosinophils % (Manual) Basophils % Basophils % (Manual) Myelocytes % (Man) Promyelocytes % (Man) Blast Cells % (Manual) Nucleated RBC % Metamyelocytes Hypochromia Platelet Estimate Platelet Comment Polychromasia Poikilocytosis Anisocytosis Microcytosis Macrocytosis Anticoagulation Therapy No Result Required. Puncture Site No Result Required. ABG pH 7.16 L* ABG pCO2 at Pt Temp 76.8 H* ABG pO2 at Pt Temp 97.0 ABG HCO3 26.5 ABG O2 Sat (Measured) 95.4 ABG O2 Content 14.7 L ABG Base Excess -3.1 L Johan Test Positive O2 Delivery Device No Result Required. Oxygen Flow Rate No Result Required. Vent Mode No Result Required. Vent Rate No Result Required. Mechanical Rate No Result Required. PEEP Pressure Support Vent No Result Required. Sodium 138 Potassium 3.2 L Chloride 102 Carbon Dioxide 29 Anion Gap 6 L BUN 49.7 H Creatinine 2.1 H Est GFR (CKD-EPI)AfAm 34.89 Est GFR (CKD-EPI)NonAf 30.10 POC Glucometer Random Glucose 173 H Lactic Acid 1.5 Calcium 7.1 L Phosphorus 3.5 Magnesium 1.9 03/26/19 03/26/19 03/26/19 00:05 00:10 05:44 WBC RBC Hgb Hct MCV MCH MCHC RDW Plt Count MPV Absolute Neuts (auto) Total Counted Neutrophils % Neutrophils % (Manual) Band Neutrophils % Lymphocytes % Lymphocytes % (Manual) Monocytes % Monocytes % (Manual) Eosinophils % Eosinophils % (Manual) Basophils % Basophils % (Manual) Myelocytes % (Man) Promyelocytes % (Man) Blast Cells % (Manual) Nucleated RBC % Metamyelocytes Hypochromia Platelet Estimate Platelet Comment Polychromasia Poikilocytosis Anisocytosis Microcytosis Macrocytosis Anticoagulation Therapy No Result Required. Puncture Site Left radial ABG pH 7.36 ABG pCO2 at Pt Temp 47.0 H ABG pO2 at Pt Temp 197 H ABG HCO3 25.6 ABG O2 Sat (Measured) 99.7 H ABG O2 Content 13.4 L ABG Base Excess 0.5 Johan Test Positive O2 Delivery Device Vent Oxygen Flow Rate 100% Vent Mode A/c Vent Rate 12 Mechanical Rate No Result Required. PEEP 5.0 Pressure Support Vent No Result Required. Sodium Potassium Chloride Carbon Dioxide Anion Gap BUN Creatinine Est GFR (CKD-EPI)AfAm Est GFR (CKD-EPI)NonAf POC Glucometer 131 105 Random Glucose Lactic Acid Calcium Phosphorus Magnesium 03/26/19 03/26/19 06:00 06:00 WBC 24.1 H RBC 3.10 L Hgb 9.2 L Hct 29.1 L MCV 94.1 MCH 29.8 MCHC 31.7 L RDW 20.1 H Plt Count 62 L D MPV 11.1 Absolute Neuts (auto) 21.7 H Total Counted Neutrophils % 90.1 H Neutrophils % (Manual) 92.8 H Band Neutrophils % 0.0 Lymphocytes % 6.5 L D Lymphocytes % (Manual) 4.1 L D Monocytes % 3.3 L Monocytes % (Manual) 3 L Eosinophils % 0.0 Eosinophils % (Manual) 0.0 Basophils % 0.1 Basophils % (Manual) 0.0 Myelocytes % (Man) 0 Promyelocytes % (Man) 0 Blast Cells % (Manual) 0 Nucleated RBC % 0 Metamyelocytes 0 Hypochromia 1+ Platelet Estimate Decreased Platelet Comment Polychromasia 0 Poikilocytosis 0 Anisocytosis 1+ Microcytosis 1+ Macrocytosis 0 Anticoagulation Therapy Puncture Site ABG pH ABG pCO2 at Pt Temp ABG pO2 at Pt Temp ABG HCO3 ABG O2 Sat (Measured) ABG O2 Content ABG Base Excess Johan Test O2 Delivery Device Oxygen Flow Rate Vent Mode Vent Rate Mechanical Rate PEEP Pressure Support Vent Sodium 140 Potassium 2.8 L* Chloride 104 Carbon Dioxide 28 Anion Gap 8 BUN 55.5 H Creatinine 2.0 H Est GFR (CKD-EPI)AfAm 37.01 Est GFR (CKD-EPI)NonAf 31.93 POC Glucometer Random Glucose 107 H Lactic Acid Calcium 6.7 L* Phosphorus Magnesium Active Medications Generic Name Dose Route Start Last Admin Trade Name Freq PRN Reason Stop Dose Admin Amino Acids 30 ml 03/23/19 22:00 03/26/19 06:26 Prosource No Carb Liquid Pkt NGT Not Given TID [facility] Atorvastatin Calcium 20 mg 03/23/19 22:00 03/26/19 00:39 Lipitor - NGT Not Given HS CHANTELL Collagenase 1 applic 03/22/19 10:00 03/25/19 15:00 Santyl - TP 1 applic DAILY [facility] Administration Protocol Escitalopram Oxalate 10 mg 03/24/19 10:00 03/26/19 09:27 Lexapro - NGT 10 mg DAILY [facility] Administration Hydrocortisone 50 mg 03/25/19 10:00 03/26/19 09:29 Cortef - PO 50 mg BID [facility] Administration Meropenem 500 mg/ Dextrose 100 mls @ 200 mls/hr 03/22/19 10:00 03/25/19 10:03 IVPB 200 mls/hr DAILY [facility] Administration Insulin Aspart 1 vial 03/22/19 00:00 03/26/19 06:27 Novolog Vial Sliding Scale - SQ Not Given Q6HPO [facility] Protocol Metoprolol Tartrate 12.5 mg 03/26/19 10:00 Lopressor - PO BID [facility] Midodrine 10 mg 03/23/19 18:00 03/26/19 09:26 Proamatine - NGT 10 mg TID-MID [facility] Administration Morphine Sulfate 2 mg 03/21/19 10:44 03/25/19 16:34 Morphine Sulfate IVPUSH 2 mg Q4H PRN Administration PAIN LEVEL 6-10 Pantoprazole Sodium 40 mg 03/21/19 22:00 03/26/19 09:26 Protonix Iv IVPUSH 40 mg BID CHANTELL Administration ASSESSMENT/PLAN: Acute respiratory failure Aspiration Pneumonitis R/o ARDS B/l lower extremity gangrene ESRD Hypokalemia DM HLd HTN --Continue to wean O2 requirements --Continue with AC mode of vent and aspiration precautions in place --Will optimize settings given ARDS-like picture on CXR --Continue Santyl and Meropenem for infection control --Hemodynamics stable while on Midodrine --Obtain peripheral access in attempt to remove central access --Morphine 2q4h PRN for pain --HD performed today; monitor electrolytes FEN: Fluids: Electrolyte abnormalities: Hypokalemia repleted today and dialysis Nutrition: Holding Tube feeds due to recent aspiration PPX: GI - Continue Protonix Dispo: ICU monitoring; however continue to discuss GOC with next of kin given severely poor prognosis Case discussed with primary team and Dr. Estela Overton - JOSE JUAN PGY-3 Visit type - Emergency Visit Emergency Visit: Yes ED Registration Date: 02/21/19 Care time: The patient presented to the Emergency Department on the above date and was hospitalized for further evaluation of their emergent condition. - New Patient This patient is new to me today: No - Critical Care Critical Care patient: Yes Total Critical Care Time (in minutes): 35 Critical Care Statement: The care of this patient involved high complexity decision making to prevent further life threatening deterioration of the patient 's condition and/or to evaluate & treat vital organ system(s) failure or risk of failure.
--- NOTE | 2019-03-26 12:55 | PN ---
Teaching Attending Note Name of Resident: Fili Overton ATTENDING PHYSICIAN STATEMENT I saw and evaluated the patient. I reviewed the resident's note and discussed the case with the resident. I agree with the resident's findings and plan as documented. SUBJECTIVE: Patient seen and examined in the ICU. Events from overnight noted. Intubated on AC Mode of vent. No pressors. Currently on acute HD. Intake & Output 03/23/19 03/24/19 03/25/19 03/26/19 23:59 23:59 23:59 23:59 Intake Total 5585 252 4881 430 Output Total 0 Balance 6992 585 2140 430 Weight 209 lb 206 lb 207 lb 209 lb 8 oz Last Vital Signs Temp Pulse Resp BP Pulse Ox 98 F 66 12 89/47 L 100 03/26/19 10:00 03/26/19 11:40 03/26/19 12:05 03/26/19 11:40 03/26/19 10:00 Active Medications Amino Acids (Prosource No Carb Liquid Pkt) 30 ml NGT TID [facility] Last Admin: 03/26/19 06:26 Dose: Not Given Atorvastatin Calcium (Lipitor -) 20 mg NGT HS [facility] Last Admin: 03/26/19 00:39 Dose: Not Given Collagenase (Santyl -) 1 applic TP DAILY [facility]; Protocol Last Admin: 03/25/19 15:00 Dose: 1 applic Escitalopram Oxalate (Lexapro -) 10 mg NGT DAILY [facility] Last Admin: 03/26/19 09:27 Dose: 10 mg Hydrocortisone (Cortef -) 50 mg PO BID [facility] Last Admin: 03/26/19 09:29 Dose: 50 mg Meropenem 500 mg/ Dextrose 100 mls @ 200 mls/hr IVPB DAILY [facility] Last Admin: 03/25/19 10:03 Dose: 200 mls/hr Insulin Aspart (Novolog Vial Sliding Scale -) 1 vial SQ Q6HPO [facility]; Protocol Last Admin: 03/26/19 12:34 Dose: Not Given Metoprolol Tartrate (Lopressor -) 12.5 mg PO BID [facility] Midodrine (Proamatine -) 10 mg NGT TID-MID [facility] Last Admin: 03/26/19 09:26 Dose: 10 mg Morphine Sulfate (Morphine Sulfate) 2 mg IVPUSH Q4H PRN PRN Reason: PAIN LEVEL 6-10 Last Admin: 03/25/19 16:34 Dose: 2 mg Pantoprazole Sodium (Protonix Iv) 40 mg IVPUSH BID [facility] Last Admin: 03/26/19 09:26 Dose: 40 mg GENERAL: intubated, lethargic ENT: Dry mucus membranes NECK: No JVD LUNGS: Vented, Coarse breath sounds bilaterally, no wheeze HEART: regular rate and rhythm, no murmurs ABDOMEN: Soft, nontender, BS present MUSCULOSKELETAL: No CVA Tenderness EXTREMITIES: 2+ pulses, 3+ edema bilaterally NEUROLOGICAL: Lethargic SKIN: LE bilateral gangrene, purulent foul smelling discharge, Unstageble sacral ulcer Laboratory Results - last 24 hr 03/25/19 03/25/19 03/25/19 17:26 20:35 20:35 WBC 24.0 H RBC 3.42 L Hgb 10.1 L Hct 32.8 L D MCV 95.8 MCH 29.6 MCHC 30.9 L RDW 20.3 H Plt Count 96 L D MPV 11.5 H Absolute Neuts (auto) 22.4 H Total Counted 100 Neutrophils % 93.7 H Neutrophils % (Manual) 90.0 H Band Neutrophils % 4.0 Lymphocytes % 1.9 L D Lymphocytes % (Manual) 1.0 L Monocytes % 4.3 Monocytes % (Manual) 5 Eosinophils % 0.0 Eosinophils % (Manual) Basophils % 0.1 Basophils % (Manual) Myelocytes % (Man) Promyelocytes % (Man) Blast Cells % (Manual) Nucleated RBC % 1 H Metamyelocytes Hypochromia Platelet Estimate Decreased Platelet Comment No clumping noted Polychromasia Poikilocytosis Anisocytosis Microcytosis Macrocytosis Anticoagulation Therapy Puncture Site ABG pH ABG pCO2 at Pt Temp ABG pO2 at Pt Temp ABG HCO3 ABG O2 Sat (Measured) ABG O2 Content ABG Base Excess Johan Test O2 Delivery Device Oxygen Flow Rate Vent Mode Vent Rate Mechanical Rate PEEP Pressure Support Vent Sodium 138 Potassium 3.2 L Chloride 102 Carbon Dioxide 29 Anion Gap 6 L BUN 49.7 H Creatinine 2.1 H Est GFR (CKD-EPI)AfAm 34.89 Est GFR (CKD-EPI)NonAf 30.10 POC Glucometer 167 Random Glucose 173 H Lactic Acid Calcium 7.1 L Phosphorus 3.5 Magnesium 1.9 03/25/19 03/25/19 03/26/19 20:35 20:45 00:05 WBC RBC Hgb Hct MCV MCH MCHC RDW Plt Count MPV Absolute Neuts (auto) Total Counted Neutrophils % Neutrophils % (Manual) Band Neutrophils % Lymphocytes % Lymphocytes % (Manual) Monocytes % Monocytes % (Manual) Eosinophils % Eosinophils % (Manual) Basophils % Basophils % (Manual) Myelocytes % (Man) Promyelocytes % (Man) Blast Cells % (Manual) Nucleated RBC % Metamyelocytes Hypochromia Platelet Estimate Platelet Comment Polychromasia Poikilocytosis Anisocytosis Microcytosis Macrocytosis Anticoagulation Therapy No Result Required. No Result Required. Puncture Site No Result Required. Left radial ABG pH 7.16 L* 7.36 ABG pCO2 at Pt Temp 76.8 H* 47.0 H ABG pO2 at Pt Temp 97.0 197 H ABG HCO3 26.5 25.6 ABG O2 Sat (Measured) 95.4 99.7 H ABG O2 Content 14.7 L 13.4 L ABG Base Excess -3.1 L 0.5 Johan Test Positive Positive O2 Delivery Device No Result Required. Vent Oxygen Flow Rate No Result Required. 100% Vent Mode No Result Required. A/c Vent Rate No Result Required. 12 Mechanical Rate No Result Required. No Result Required. PEEP 5.0 Pressure Support Vent No Result Required. No Result Required. Sodium Potassium Chloride Carbon Dioxide Anion Gap BUN Creatinine Est GFR (CKD-EPI)AfAm Est GFR (CKD-EPI)NonAf POC Glucometer Random Glucose Lactic Acid 1.5 Calcium Phosphorus Magnesium 03/26/19 03/26/19 03/26/19 00:10 05:44 06:00 WBC 24.1 H RBC 3.10 L Hgb 9.2 L Hct 29.1 L MCV 94.1 MCH 29.8 MCHC 31.7 L RDW 20.1 H Plt Count 62 L D MPV 11.1 Absolute Neuts (auto) 21.7 H Total Counted Neutrophils % 90.1 H Neutrophils % (Manual) 92.8 H Band Neutrophils % 0.0 Lymphocytes % 6.5 L D Lymphocytes % (Manual) 4.1 L D Monocytes % 3.3 L Monocytes % (Manual) 3 L Eosinophils % 0.0 Eosinophils % (Manual) 0.0 Basophils % 0.1 Basophils % (Manual) 0.0 Myelocytes % (Man) 0 Promyelocytes % (Man) 0 Blast Cells % (Manual) 0 Nucleated RBC % 0 Metamyelocytes 0 Hypochromia 1+ Platelet Estimate Decreased Platelet Comment Polychromasia 0 Poikilocytosis 0 Anisocytosis 1+ Microcytosis 1+ Macrocytosis 0 Anticoagulation Therapy Puncture Site ABG pH ABG pCO2 at Pt Temp ABG pO2 at Pt Temp ABG HCO3 ABG O2 Sat (Measured) ABG O2 Content ABG Base Excess Johan Test O2 Delivery Device Oxygen Flow Rate Vent Mode Vent Rate Mechanical Rate PEEP Pressure Support Vent Sodium Potassium Chloride Carbon Dioxide Anion Gap BUN Creatinine Est GFR (CKD-EPI)AfAm Est GFR (CKD-EPI)NonAf POC Glucometer 131 105 Random Glucose Lactic Acid Calcium Phosphorus Magnesium 03/26/19 03/26/19 06:00 12:33 WBC RBC Hgb Hct MCV MCH MCHC RDW Plt Count MPV Absolute Neuts (auto) Total Counted Neutrophils % Neutrophils % (Manual) Band Neutrophils % Lymphocytes % Lymphocytes % (Manual) Monocytes % Monocytes % (Manual) Eosinophils % Eosinophils % (Manual) Basophils % Basophils % (Manual) Myelocytes % (Man) Promyelocytes % (Man) Blast Cells % (Manual) Nucleated RBC % Metamyelocytes Hypochromia Platelet Estimate Platelet Comment Polychromasia Poikilocytosis Anisocytosis Microcytosis Macrocytosis Anticoagulation Therapy Puncture Site ABG pH ABG pCO2 at Pt Temp ABG pO2 at Pt Temp ABG HCO3 ABG O2 Sat (Measured) ABG O2 Content ABG Base Excess Johan Test O2 Delivery Device Oxygen Flow Rate Vent Mode Vent Rate Mechanical Rate PEEP Pressure Support Vent Sodium 140 Potassium 2.8 L* Chloride 104 Carbon Dioxide 28 Anion Gap 8 BUN 55.5 H Creatinine 2.0 H Est GFR (CKD-EPI)AfAm 37.01 Est GFR (CKD-EPI)NonAf 31.93 POC Glucometer 100 Random Glucose 107 H Lactic Acid Calcium 6.7 L* Phosphorus Magnesium ASSESSMENT/PLAN: Acute Respiratory Failure Aspiration Pneumonitis with ARDS physiology Recent ESBL E coli Bacteremia Recent Septic Shock Bilateral Feet Gangrene Infected Decubitus Ulcers ESRD on HD DM HTN Hyperlipidemia h/o CVA - continue antibiotics per ID - continue midodrine - monitor H/H - local wound care - HD per renal - aspiration precautions - DVT prophylaxis - continue efforts to discuss medical condition and prognosis with next of kin - given overall poor condition, current medical condition, and overall poor care home outcome, recommend palliative/comfort care - continue ICU monitoring Dr Palmer Critical care time spent in reviewing chart, evaluating patient and formulating plan 36 min
[2019-03-26] MEDS: MEROPENEM 500 MG in DEXTROSE 5%-WATER 100 ML IVPB SCH (13:46)
[2019-03-26] MEDS: COLLAGENASE CLOSTRIDIUM HIST. 30 GRAMS TUBE TP SCH (14:00)
--- NOTE | 2019-03-26 14:02 | PN ---
Progress Note, Physician History of Present Illness: Pt seen and examined at bedside. He is tolerating HD. He is now in the ICU. - Current Medication List Current Medications: Active Medications Amino Acids (Prosource No Carb Liquid Pkt) 30 ml NGT TID [facility] Last Admin: 03/26/19 06:26 Dose: Not Given Atorvastatin Calcium (Lipitor -) 20 mg NGT HS [facility] Last Admin: 03/26/19 00:39 Dose: Not Given Collagenase (Santyl -) 1 applic TP DAILY [facility]; Protocol Last Admin: 03/25/19 15:00 Dose: 1 applic Escitalopram Oxalate (Lexapro -) 10 mg NGT DAILY [facility] Last Admin: 03/26/19 09:27 Dose: 10 mg Hydrocortisone (Cortef -) 50 mg PO BID [facility] Last Admin: 03/26/19 09:29 Dose: 50 mg Meropenem 500 mg/ Dextrose 100 mls @ 200 mls/hr IVPB DAILY [facility] Last Admin: 03/26/19 13:46 Dose: 200 mls/hr Insulin Aspart (Novolog Vial Sliding Scale -) 1 vial SQ Q6HPO [facility]; Protocol Last Admin: 03/26/19 12:34 Dose: Not Given Metoprolol Tartrate (Lopressor -) 12.5 mg PO BID [facility] Last Admin: 03/26/19 13:46 Dose: Not Given Midodrine (Proamatine -) 10 mg NGT TID-MID [facility] Last Admin: 03/26/19 09:26 Dose: 10 mg Morphine Sulfate (Morphine Sulfate) 2 mg IVPUSH Q4H PRN PRN Reason: PAIN LEVEL 6-10 Last Admin: 03/25/19 16:34 Dose: 2 mg Pantoprazole Sodium (Protonix Iv) 40 mg IVPUSH BID [facility] Last Admin: 03/26/19 09:26 Dose: 40 mg - Objective Vital Signs: Vital Signs Temperature 98 F 03/26/19 10:00 Pulse Rate 62 03/26/19 13:30 Respiratory Rate 20 03/26/19 13:30 Blood Pressure 104/47 L 03/26/19 13:30 O2 Sat by Pulse Oximetry (%) 100 03/26/19 10:00 Constitutional: Yes: Calm Eyes: Yes: Conjunctiva Clear HENT: Yes: Atraumatic Cardiovascular: Yes: S1, S2 Respiratory: Yes: Other (bilateral air entry) Gastrointestinal: Yes: Soft Genitourinary: Yes: Incontinence Edema: Yes Edema: LUE: 1+, RUE: 1+ Wound/Incision: Yes: Other (odor from wounds) Neurological: Yes: Lethargy Labs: CBC, BMP 03/26/19 06:00 03/26/19 06:00 INR, PTT INR 1.44 (0.83-1.09) H 02/22/19 05:40 Problem List - Problems (1) ESRD (end stage renal disease) on dialysis Code(s): N18.6 - END STAGE RENAL DISEASE; Z99.2 - DEPENDENCE ON RENAL DIALYSIS Assessment/Plan Current Medications Generic Name Dose Route Start Last Admin Trade Name Freq PRN Reason Stop Dose Admin Amino Acids 30 ml 03/23/19 22:00 03/26/19 06:26 Prosource No Carb Liquid Pkt NGT Not Given TID [facility] Atorvastatin Calcium 20 mg 03/23/19 22:00 03/26/19 00:39 Lipitor - NGT Not Given HS [facility] Collagenase 1 applic 03/22/19 10:00 03/25/19 15:00 Santyl - TP 1 applic DAILY [facility] Administration Protocol Escitalopram Oxalate 10 mg 03/24/19 10:00 03/26/19 09:27 Lexapro - NGT 10 mg DAILY [facility] Administration Hydrocortisone 50 mg 03/25/19 10:00 03/26/19 09:29 Cortef - PO 50 mg BID [facility] Administration Meropenem 500 mg/ Dextrose 100 mls @ 200 mls/hr 03/22/19 10:00 03/26/19 13:46 IVPB 200 mls/hr DAILY [facility] Administration Insulin Aspart 1 vial 03/22/19 00:00 03/26/19 12:34 Novolog Vial Sliding Scale - SQ Not Given Q6HPO [facility] Protocol Metoprolol Tartrate 12.5 mg 03/26/19 10:00 03/26/19 13:46 Lopressor - PO Not Given BID [facility] Midodrine 10 mg 03/23/19 18:00 03/26/19 09:26 Proamatine - NGT 10 mg TID-MID [facility] Administration Morphine Sulfate 2 mg 03/21/19 10:44 03/25/19 16:34 Morphine Sulfate IVPUSH 2 mg Q4H PRN Administration PAIN LEVEL 6-10 Pantoprazole Sodium 40 mg 03/21/19 22:00 07/02/19 09:26 Protonix Iv IVPUSH 40 mg BID [facility] Administration Impression 1. ESRD 2. gangrene 3. DM 4. hyperlipidemia 5. HTN 6. gout 7. proteinuria 8. hypotension 9. sepsis 10. resp failure 11. GI bleed Plan - HD today - replace potassium - family to discuss GOC - discussed with ICU - 3 k bath on HD - cont wound care - pt is doing poorly
--- NOTE | 2019-03-26 14:35 | PN ---
Physical Exam: SUBJECTIVE: This is a 73y/o M w/ a PMH of ESRD on dialysis, peripheral vascular disease, HLD , DM, COPD, b/l gangrenous legs admitted for septic shock secondary to b/l foot gangrene and prolonged hospitilization now in ICU s/p aspiration and intubated after a rapid response was called due to his SaO2 dropping into the 80's at 8: 43 pm 03/25/19. Overnight: The tube feeds have been stopped due to the aspiration. It is also being held throughout today and will restart tube feeds tomorrow at 1/2 the rate. CXR that was done showed complete white out of the R lung with R bronchus not visualized at all. Pt is not on pressors or sedation. None are indicated unless MAP <70. OBJECTIVE: GENERAL: The patient is AO X0, intubated, with Lt IJV and NG tube on suction, Rt dialysis catheter, and responsive to pain stimuli. GCS scale is a score of 5 (GCS<8 is severe) NECK: neck is supple. LUNGS: course breath sounds b/l , no wheezes, no crackles, no rhonchi, no stridor, or accessory muscle use. HEART: Regular rate and rhythm, S1, S2 without murmur, rubs or gallop as far as could be assessed given the sound of patient grunts with the ventilator. ABDOMEN: Soft, nondistended, hypoactive bowel sounds in all 4 quadrants, no masses appreciated on exam. EXTREMITIES: 1+ pulses b/l dorsalis pedis, 2+pitting edema, b/l gangrenous feet non stageable. Last Vital Signs Temp Pulse Resp BP Pulse Ox 98 F 62 20 104/47 L 100 03/26/19 10:00 03/26/19 13:30 03/26/19 13:30 03/26/19 13:30 03/26/19 10:00 Lab values 7/2 CBC, BMP 03/26/19 06:00 03/26/19 06:00 Active Medications Amino Acids (Prosource No Carb Liquid Pkt) 30 ml NGT TID [facility] Last Admin: 03/26/19 06:26 Dose: Not Given Atorvastatin Calcium (Lipitor -) 20 mg NGT HS [facility] Last Admin: 03/26/19 00:39 Dose: Not Given Collagenase (Santyl -) 1 applic TP DAILY [facility]; Protocol Last Admin: 03/25/19 15:00 Dose: 1 applic Escitalopram Oxalate (Lexapro -) 10 mg NGT DAILY [facility] Last Admin: 03/26/19 09:27 Dose: 10 mg Hydrocortisone (Cortef -) 50 mg PO BID [facility] Last Admin: 03/26/19 09:29 Dose: 50 mg Meropenem 500 mg/ Dextrose 100 mls @ 200 mls/hr IVPB DAILY [facility] Last Admin: 03/26/19 13:46 Dose: 200 mls/hr Insulin Aspart (Novolog Vial Sliding Scale -) 1 vial SQ Q6HPO [facility]; Protocol Last Admin: 03/26/19 12:34 Dose: Not Given Metoprolol Tartrate (Lopressor -) 12.5 mg PO BID [facility] Last Admin: 03/26/19 13:46 Dose: Not Given Midodrine (Proamatine -) 10 mg NGT TID-MID [facility] Last Admin: 03/26/19 09:26 Dose: 10 mg Morphine Sulfate (Morphine Sulfate) 2 mg IVPUSH Q4H PRN PRN Reason: PAIN LEVEL 6-10 Last Admin: 03/25/19 16:34 Dose: 2 mg Pantoprazole Sodium (Protonix Iv) 40 mg IVPUSH BID [facility] Last Admin: 03/26/19 09:26 Dose: 40 mg ASSESSMENT/PLAN: This is a 73 y/o M w a PMH od ESRD on dialysis, PVD, HLD, DM, COPD, b/l gangrenous legs admitted for septic shock 2/2 b/l foot gangrene and prolonged hospitalization now in ICU s/p aspiration and now intubated. #Acute hypoxic respiratory failure with hypercapnia due to aspiration PNA - intubated not on pressors or sedation - repeat CXR done 03/25 showed interval decrease in opacification slightly better aeration of the right lung. Airspace opacities again seen in the left lung. No pneumothorax identified. Moderate elevation of rt hemidiaphragm, which is a huge improvement since the one done - Pt on meropenem on his 31 doses. - on hydrocortisone 50 BID for adrenal insufficiency during septic shock. continue to taper. - duonebs q6hprn - continue ventilator management - Head of bed elevations ##Septic shock resolved -ID consuit (Dr Manrique) appreciate recs - MRSA, ESBL, pseudomonas, E coli B.C.'s on 03/11/19 02/21/19- Gangrenous foot Cx- ESBL, MOrganella morganii, BC's- proteus mirabilis. - septic shock is no longer present due to response to fluids maintaing a map > 70. - Treating with meropenem for the ESBL gangrenous legs (dose 31). #Proteus, ESBL, E coli bacteremia - Cx's positive on this - on meropenem day 31 continue it as per ID. #Infected sacral decubitus ulcers and scrotal ulcer - monitoring the ulcers and keep it dry and clean. #infected gangrenous ulcers on feet - continue to manage as per wound care and keep area dressed in gauze and dry. #Afib w RVR - BP low normal with maps in the 65-70 range off pressors. - central line in place in the event we need pressors. - eliquis has been held for afib due to thrombocytopenia, patient in sinus rythym. - rate control with metoprolol 12.5 BID as needed and hold if systolic BP <90, HR<60, or diastolic <60. - on midodrine for BP #ESRD -patient getting dialysis per nephro (Dr. Patterson) as recommended. - hypoalbuminemia due to malnutrition likely cause of third spacing and his fluids, nephro ordered albumin 12.5 q30min. - Hypokalemia- 2.8 Dr. Patterson order 40mEq/L of KCL and will monitor after dialysis. - will continue to monitor lytes #Thrombocytopenia/Anemia -Anemia due to ESRD w decreased EPO from renal malproduction. Continue EPO 12, 000 units. -Maintain Hemaglobin >7 by transfusions as needed. -Thrombocytopenia- if bleeding occurs with a PLT <50 then we will transfuse, if <10 we will transfuse even without the presence of bleeding. #Diabetes - has DM - Blood glucose monitoring - Insulin sliding scale #Neuro/Seizure hx - Keppra was stopped on 03/13 but can be resumed in event of seizure. #FEN - will continue monitoring lytes and replete as necessary. - no fluids indicated at this time. - Pt has been NPO due to aspiration potential and tube feeds have been held til AM. Prophylaxis- DVT: SCD's ordered GI: Protonix -Bacid Disposition- we will continue to follow pt in ICU - waiting to hear back from family regarding end of life planning. Visit type - Emergency Visit Emergency Visit: No - New Patient This patient is new to me today: Yes Date on this admission: 03/26/19 - Critical Care Critical Care patient: Yes Total Critical Care Time (in minutes): 45 Critical Care Statement: The care of this patient involved high complexity decision making to prevent further life threatening deterioration of the patient 's condition and/or to evaluate & treat vital organ system(s) failure or risk of failure. - Discharge Referral Referred to [facility] No
--- NOTE | 2019-03-26 15:02 | PN ---
Teaching Attending Note Name of Resident: Zacarias Mchugh ATTENDING PHYSICIAN STATEMENT I saw and evaluated the patient. I reviewed the resident's note and discussed the case with the resident. I agree with the resident's findings and plan as documented. SUBJECTIVE: Events over night notable for aspiration event and intubation OBJECTIVE: NAD, intubated, resists eye opening , not sedated CV: RRR, no MRG Lungs: mild rales anteriorly especially on R side . Abd: abd wall edema sacral and scrotal area and feet wounds were not examined today ASSESSMENT AND PLAN: 73 y/o man with h/o dementia, CVA, DM, COPD, ESRD, gout, HTN, HLP, recent admission 01/31-02/19 during which he was treated for sepsis due to infected b/l feet ulcers/gangrene. He was sent form NH due to poor po intake, and non healing wounds 1- Acute hypoxic resp failure, 2/2 aspiration . Now intubated 2- Septic shock resolved 3- Infected sacral decub and scrotal ulcer 4- Proteus bacteremia ,ESBL producing E coli bacteremia 5- ESRD 6- DM 7- Infected gangrenous feet wounds 8- anemia 9- A fib with RVR 10 thrombocytopenia Plan: - cxray reviewed. - cont vent management - HOB elevation. - cont meropenem - cont hydrocortisone at 50 BID ( decreased yesterday) , cont taper - follow repeat cx - due to recurrent episodes of A fib ,cont BB ( staretd yesterday) . place parameters - hold eliquis due to thrombocytopenia - keppra stopped on 03/13 , if seizures recur then can resume - HD per schedule - monitor and replete electrolytes - SSI Poor prognosis. Father was notified of the intubation last night Critical Care Total Critical Care Time (in minutes): 30 Critical Care Statement: The care of this patient involved high complexity decision making to prevent further life threatening deterioration of the patient 's condition and/or to evaluate & treat vital organ system(s) failure or risk of failure.
--- NOTE | 2019-03-26 19:54 | PN ---
Progress Note (short form) - Note Progress Note: Spoke with daughter Molly Silva. She states that she lives out of state and would NOT like to be contacted about decisions for her father. Lokesh Silva is the Pt.s father and is the HCP. Pt.s Brother Butch is the next point of contact. Molly asked that we reflect this decision in the chart. "Gabriel dad is alive at 97 lives independently and has full capacity he lives in [facility], [phone]. Ren is one of four children brother Koffi who is present today lives in [place] [phone] Brother Butch who lives in [place] [phone] Sister Nena who also lives in [place] [phone]"
[2019-03-26] MEDS: MORPHINE SULFATE 2 MG/ML VIAL IVPUSH PRN (22:05)
[2019-03-27] MEDS: MORPHINE SULFATE 2 MG/ML VIAL IVPUSH PRN ×2 (01:44→05:04)
[2019-03-27] MEDS ORDERED: MIDAZOLAM HCL 2 MG/2 ML SINGLE DOSE VIAL IVPUSH ONE (02:16)
--- NOTE | 2019-03-27 03:49 | PN ---
Progress Note (short form) - Note Progress Note: Pt. was noted to be de saturating to mid 80s due to agitation. Pt. found to be biting on ET Tube. On physical exam BP remained stable however Pt. had diffuse tenderness to palpation in abdomen. Breath sounds were diminished on left anteriorly. Pt. suctioned to good effect however still noted to be agitated despite no longer having any output on suction. ET Tube readjusted to 23cm and CXR ordered to rule out acute worsening of Pneumonia and verify position of ET Tube. Protective covering (oral pharyngeal airway) for ET Tube administered to protect integrity of tube. Morphine increased to Q3H without significant change in agitation. Versed 2mg given without significant change in agitation. Decision made to start Pt. on Propofol drip to minimize agitation and safely continue ventilation.
[2019-03-27] MEDS: PROPOFOL 1,000,000 MCG/100 ML VIAL IVPB SCH (03:55)
[2019-03-27] MEDS: AMINO ACIDS/PROTEIN HYDROLYS 30 ML LIQUID.PKT NGT SCH ×3 (05:05→21:10)
[2019-03-27] MEDS: INSULIN SLIDING SCALE (NOVOLOG) 1 VIAL SQ SCH ×3 (05:18→18:16)
[2019-03-27 06:13] LABS: HEMATOCRIT 25.3 % (35.4-49); MCH 29.8 pg (25.7-33.7); MCHC 31.7 g/dl (32.0-35.9); MEAN PLT VOLUME 11.4 fl (7.5-11.1); PLATELET COUNT 52 K/MM3 (134-434); RDW 20.3 % (11.9-15.9); WHITE BLOOD COUNT 15.2 K/mm3 (4.0-10.0)
[2019-03-27 06:47] LABS: ALBUMIN 1.6 g/dl (3.4-5.0); BILIRUBIN,TOTAL 1.4 mg/dL (0.2-1); BLOOD UREA NITROGEN 39.5 mg/dL (7-18); CALCIUM 7.2 mg/dL (8.5-10.1); CREATININE 1.5 mg/dL (0.55-1.3); MAGNESIUM 1.9 mg/dL (1.8-2.4); POTASSIUM 3.5 mmol/L (3.5-5.1); TOT PROT 4.5 g/dl (6.4-8.2)
--- NOTE | 2019-03-27 08:06 | PN ---
Teaching Attending Note Name of Resident: Michele Mchugh ATTENDING PHYSICIAN STATEMENT I saw and evaluated the patient. I reviewed the resident's note and discussed the case with the resident. I agree with the resident's findings and plan as documented. SUBJECTIVE: Patient is in ICU, intubated, sedated. OBJECTIVE: Vital Signs Temperature 97.5 F L 03/27/19 06:00 Pulse Rate 66 03/27/19 06:35 Respiratory Rate 18 03/27/19 06:03 Blood Pressure 108/59 L 03/27/19 06:00 O2 Sat by Pulse Oximetry (%) 100 03/27/19 06:35 GENERAL: The patient is intubated , sedated. HEAD: Normal with no signs of trauma. EYES: extraocular movements intact, sclera anicteric, ENT: intubated and sedated . NECK: Trachea midline, positive for ET-tube LUNGS: intubated , sedated . HEART: RRR , S1, S2 without murmur, rub or gallop. ABDOMEN: Soft, NT, ND, BS positive, no guarding, no rebound, no hepatosplenomegaly, no masses. EXTREMITIES: gangrenous lower extremities SKIN: Warm. CBCD WBC 15.2 K/mm3 (4.0-10.0) H 03/27/19 05:20 RBC 2.70 M/mm3 (4.00-5.60) L 03/27/19 05:20 Hgb 8.0 GM/dL (11.7-16.9) L 03/27/19 05:20 Hct 25.3 % (35.4-49) L 03/27/19 05:20 MCV 94.0 fl (80-96) 03/27/19 05:20 MCHC 31.7 g/dl (32.0-35.9) L 03/27/19 05:20 RDW 20.3 % (11.9-15.9) H 03/27/19 05:20 Plt Count 52 K/MM3 (134-434) L 03/27/19 05:20 MPV 11.4 fl (7.5-11.1) H 03/27/19 05:20 CMP Sodium 143 mmol/L (136-145) 03/27/19 05:20 Potassium 3.5 mmol/L (3.5-5.1) 03/27/19 05:20 Chloride 107 mmol/L (98-107) 03/27/19 05:20 Carbon Dioxide 29 mmol/L (21-32) 03/27/19 05:20 Anion Gap 7 MMOL/L (8-16) L 03/27/19 05:20 BUN 39.5 mg/dL (7-18) H 03/27/19 05:20 Creatinine 1.5 mg/dL (0.55-1.3) H 03/27/19 05:20 Random Glucose 101 mg/dL (74-106) 03/27/19 05:20 Calcium 7.2 mg/dL (8.5-10.1) L 03/27/19 05:20 Total Bilirubin 1.4 mg/dL (0.2-1) H 03/27/19 05:20 AST 113 U/L (15-37) H 03/27/19 05:20 ALT 48 U/L (13-61) 03/27/19 05:20 Alkaline Phosphatase 1101 U/L (45-117) H 03/27/19 05:20 Total Protein 4.5 g/dl (6.4-8.2) L 03/27/19 05:20 Albumin 1.6 g/dl (3.4-5.0) L 03/27/19 05:20 CARDIAC ENZYMES Troponin I < 0.02 ng/ml (0.00-0.05) 02/21/19 15:10 Current Medications Generic Name Dose Route Start Last Admin Trade Name Freq PRN Reason Stop Dose Admin Amino Acids 30 ml 03/23/19 22:00 03/27/19 05:05 Prosource No Carb Liquid Pkt NGT 30 ml TID [facility]ANTELL Administration Atorvastatin Calcium 20 mg 03/23/19 22:00 03/26/19 22:03 Lipitor - NGT 20 mg HS [facility]ANTELL Administration Collagenase 1 applic 03/22/19 10:00 03/26/19 14:00 Santyl - TP 1 applic DAILY [facility]LL Administration Protocol Escitalopram Oxalate 10 mg 03/24/19 10:00 03/26/19 09:27 Lexapro - NGT 10 mg DAILY [facility] Administration Hydrocortisone 50 mg 03/25/19 10:00 03/26/19 22:04 Cortef - PO 50 mg BID [facility]ANTELL Administration Meropenem 500 mg/ Dextrose 100 mls @ 200 mls/hr 03/22/19 10:00 03/26/19 13:46 IVPB 200 mls/hr DAILY [facility] Administration Propofol 1,000,000 mcg in 100 mls @ 2.851 mls/hr 03/27/19 03:45 03/27/19 05: 05 Diprivan - IVPB 5 mcg/kg/min TITR CHANTELL 2.851 mls/hr Titration Protocol 5 MCG/KG/MIN Insulin Aspart 1 vial 03/22/19 00:00 03/27/19 05:18 Novolog Vial Sliding Scale - SQ Not Given Q6HPO [facility]TE[facility] Protocol Metoprolol Tartrate 12.5 mg 03/26/19 10:00 03/26/19 23:01 Lopressor - PO 12.5 mg BID [facility]ANTELL Administration Midodrine 10 mg 03/23/19 18:00 03/26/19 18:15 Proamatine - NGT 10 mg TID-MID [facility]ANTELL Administration Morphine Sulfate 2 mg 03/27/19 01:32 03/27/19 05:04 Morphine Sulfate IVPUSH 2 mg Q3H PRN Administration PAIN LEVEL 6-10 Pantoprazole Sodium 40 mg 03/21/19 22:00 03/26/19 22:03 Protonix Iv IVPUSH 40 mg BID CHANTELL Administration Home Medications Medication Instructions Recorded Albuterol 2.5/Ipratropium 0.5 1 amp NEB Q6H PRN #0 amp 07/12/17 [Duoneb -] Allopurinol [Zyloprim -] 100 mg PO DAILY tablet 07/12/17 Atorvastatin Ca [Lipitor] 20 mg PO HS tablet 07/12/17 Collagenase Clostridium Hist. 1 applic TP DAILY tube 09/06/18 [Santyl -] Albuterol Sulfate [Proair Hfa] 2 puff IH Q6H PRN 10/29/18 Escitalopram Oxalate [Lexapro -] 10 mg PO DAILY 10/29/18 Folic Acid/Vit B Complex and C 1 each PO DAILY 10/29/18 [Dialyvite Tablet] Midodrine HCl 10 mg PO MOWEFR 10/29/18 Sevelamer Carbonate [Renvela -] 1,600 mg PO TID 10/29/18 Tamsulosin HCl [Flomax] 0.4 mg PO HS 10/29/18 Insulin Sliding Scale [Novolog 1 vial SQ TIDAC #1 vial 11/17/18 Vial Sliding Scale -] Apixaban [Eliquis -] 5 mg PO BID #30 tablet MDD 2 11/19/18 Collagenase Clostridium Hist. 1 applic TP DAILY #1 tube 01/17/19 [Santyl -] Amoxicillin/Potassium Clav 1 each PO DAILY #7 tablet 02/06/19 [Augmentin 500-125 Tablet] Megestrol Acetate Oral Susp 400 mg PO DAILY #20 cup 02/06/19 [Megace Liquid -] Protein Supplement [Prosource] 275 gm PO TID #60 powder 02/06/19 Lactobacillus Acidophilus [Bacid -] 1 tab PO DAILY #60 tab 02/19/19 Midodrine HCl [Proamatine -] 5 mg PO SuTuThSa #60 tablet 02/19/19 traMADol HCL [Ultram -] 50 mg PO Q6H PRN #60 tablet MDD 4 02/19/19 Microbiology 03/24/19 15:40 Blood - Peripheral Venous Blood Culture - Preliminary NO GROWTH OBTAINED AFTER 48 HOURS, INCUBATION TO CONTINUE FOR 3 DAYS. 03/24/19 16:09 Blood - Peripheral Venous Blood Culture - Preliminary NO GROWTH OBTAINED AFTER 48 HOURS, INCUBATION TO CONTINUE FOR 3 DAYS. 03/11/19 05:30 Blood - Peripheral Venous Blood Culture - Final NO GROWTH AFTER 5 DAYS INCUBATION 03/11/19 10:15 Sputum - Endotrachea Suction/Ventilator Gram Stain - Final 03/11/19 10:15 Sputum - Endotrachea Suction/Ventilator Sputum Culture - Final Mr S Aureus Escherichia Coli Esbl Bereavement Counselor Acinetobacter Baumannii/Haemol Pseudomonas Aeruginosa 03/11/19 06:45 Blood - Peripheral Venous Blood Culture - Final Escherichia Coli Esbl Bereavement Counselor 02/23/19 11:50 Blood - Peripheral Venous Blood Culture - Final NO GROWTH AFTER 5 DAYS INCUBATION 02/23/19 11:50 Blood - Peripheral Venous Blood Culture - Final NO GROWTH AFTER 5 DAYS INCUBATION 02/21/19 13:16 Blood - Peripheral Venous Blood Culture - Final Proteus Mirabilis Prevotella Melaninogenica 02/21/19 16:30 Foot - Left Heel Gram Stain - Final 02/21/19 16:30 Foot - Left Heel Wound Culture - Final Escherichia Coli Esbl Bereavement Counselor Morganella Morganii 02/21/19 15:40 Blood - Peripheral Venous Blood Culture - Final Proteus Mirabilis 02/21/19 14:50 Urine - Urine - Catheterized Urine Culture - Final NO GROWTH OBTAINED ASSESSMENT AND PLAN: Patient is a 73 y/o man with h/o dementia, CVA, DM, COPD, ESRD, gout, HTN, HLP, recent admission 01/31-02/19 during which he was treated for sepsis due to infected b/l feet ulcers/gangrene. He was sent from [place] due to poor po intake, and non healing wounds # Acute hypoxic resp failure/aspiration s/p extubated and re-intubated further care per ICU ,HOB elevation. # Septic shock resolved cont hydrocortisone at 50 BID ,cont taper # Infected sacral decub and scrotal ulcer on IV antibiotic continue cont meropenem # Proteus bacteremia ,ESBL producing E coli bacteremia cont meropenem # ESRD on HD per schedule , on Midodrine # DM SSI # Infected gangrenous of LEs with open wounds cont meropenem #anemia #A fib with RVR hold eliquis due to thrombocytopenia #thrombocytopenia hold eliquis due to thrombocytopenia # hx of seizure keppra stopped on 03/13 , if seizures recur then can resume Poor prognosis.
[2019-03-27] MEDS ORDERED: PT OWN MED DRAWER 7, Y5N ONE ×2 (09:46→17:05)
[2019-03-27] MEDS: MULTIVIT-MINERALS ORAL LIQUID NGT SCH (09:59)
[2019-03-27] MEDS: HYDROCORTISONE 20 MG TABLET PO SCH ×2 (09:59→21:30)
[2019-03-27] MEDS: MIDODRINE HCL 5 MG TABLET NGT SCH ×3 (10:00→18:17)
[2019-03-27] MEDS: METOPROLOL TARTRATE 25 MG TABLET (FP) PO SCH ×2 (10:00→21:10)
[2019-03-27] MEDS: ESCITALOPRAM OXALATE 10 MG TABLET (FP) NGT SCH (10:00)
[2019-03-27] MEDS: MEROPENEM 500 MG in DEXTROSE 5%-WATER 100 ML IVPB SCH (10:00)
[2019-03-27] MEDS: COLLAGENASE CLOSTRIDIUM HIST. 30 GRAMS TUBE TP SCH (10:01)
[2019-03-27] MEDS: PANTOPRAZOLE SODIUM 40 MG VIAL IVPUSH SCH ×3 (10:20→21:09)
--- NOTE | 2019-03-27 11:27 | PN ---
Teaching Attending Note Name of Resident: Fili Overton ATTENDING PHYSICIAN STATEMENT I saw and evaluated the patient. I reviewed the resident's note and discussed the case with the resident. I agree with the resident's findings and plan as documented. SUBJECTIVE: Pt seen and examined in the ICU. Remains intubated, sedated. No pressors. Oxygenating well. OBJECTIVE: Vital Signs Period Temp Pulse Resp BP Sys/Zamorano Pulse Ox Last 24 Hr 96.1 F-97.9 F 56-76 12-22 89-126/40-99 83-100 Intake & Output 03/24/19 03/25/19 03/26/19 03/27/19 23:59 23:59 23:59 23:59 Intake Total 712 1292 840 136 Output Total 0 Balance 712 1292 840 136 Weight 93.44 kg 93.894 kg 95.028 kg 87.453 kg Gen: intubated, sedated Heart: RRR Lung: scattered rhonchi Abd: soft, nontender Ext: + edema, wrapped, malodorous CBC, BMP 03/27/19 05:20 03/27/19 05:20 Active Medications Amino Acids (Prosource No Carb Liquid Pkt) 30 ml NGT TID [facility] Last Admin: 03/27/19 05:05 Dose: 30 ml Atorvastatin Calcium (Lipitor -) 20 mg NGT HS [facility] Last Admin: 03/26/19 22:03 Dose: 20 mg Collagenase (Santyl -) 1 applic TP DAILY [facility]; Protocol Last Admin: 03/27/19 10:01 Dose: 1 applic Escitalopram Oxalate (Lexapro -) 10 mg NGT DAILY [facility] Last Admin: 03/27/19 10:00 Dose: 10 mg Hydrocortisone (Cortef -) 50 mg PO BID [facility] Last Admin: 03/27/19 09:59 Dose: 50 mg Meropenem 500 mg/ Dextrose 100 mls @ 200 mls/hr IVPB DAILY [facility] Last Admin: 03/27/19 10:00 Dose: 200 mls/hr Propofol (Diprivan -) 1,000,000 mcg in 100 mls @ 2.851 mls/hr IVPB TITR [facility]; Protocol Last Titration: 03/27/19 05:05 Dose: 5 mcg/kg/min, 2.851 mls/hr Insulin Aspart (Novolog Vial Sliding Scale -) 1 vial SQ Q6HPO [facility]; Protocol Last Admin: 03/27/19 05:18 Dose: Not Given Metoprolol Tartrate (Lopressor -) 12.5 mg PO BID [facility] Last Admin: 03/27/19 10:00 Dose: 12.5 mg Midodrine (Proamatine -) 10 mg NGT TID-MID [facility] Last Admin: 03/27/19 10:00 Dose: 10 mg Morphine Sulfate (Morphine Sulfate) 2 mg IVPUSH Q3H PRN PRN Reason: PAIN LEVEL 6-10 Last Admin: 03/27/19 05:04 Dose: 2 mg Pantoprazole Sodium (Protonix Iv) 40 mg IVPUSH BID [facility] Last Admin: 03/27/19 10:22 Dose: 40 mg ASSESSMENT AND PLAN: Acute Respiratory Failure Aspiration Pneumonitis with ARDS physiology Recent ESBL E coli Bacteremia Recent Septic Shock Bilateral Feet Gangrene Infected Decubitus Ulcers ESRD on HD DM HTN Hyperlipidemia h/o CVA - continue antibiotics per ID - continue midodrine - monitor H/H - local wound care - HD per renal - aspiration precautions - DVT prophylaxis - continue efforts to discuss medical condition and prognosis with next of kin - given overall poor condition, current medical condition, and overall poor exterminator termite outcome, recommend palliative/comfort care - continue ICU monitoring critical care time spent in reviewing chart, evaluating patient and formulating plan 36 min
--- NOTE | 2019-03-27 11:42 | PN ---
Physical Exam: SUBJECTIVE: Overnight pt became asynchronous with ventilator and was biting ETT. Pt was placed on low dose propofol gtt for comfort/sedation. No other events at this point. Pt remains off pressors with optimized ventilator settings. OBJECTIVE: Vital Signs Period Temp Pulse Resp BP Sys/Zamorano Pulse Ox Last 24 Hr 96.1 F-97.9 F 56-76 12-22 89-126/40-99 83-100 GENERAL: Intubated, sedated, awake to palpation. HEENT: ETT in place with bite block, NG noted NECK: L IJ C/D/I LUNGS: Scattered rhonchi bilaterally (R>L), no wheezes. AC mode of vent FiO2 titrated to SpO2 >90% HEART: RRR, S1, S2 without murmur ABDOMEN: Soft, NT/ND, hypoactive bowel sounds, no guarding, slight abdominal wall edema SACRUM: Not examined today EXTREMITIES: 2+ upper extremity edema, lower extremity weeping wounds bandaged with drainage noted and foul odor SKIN: Warm, dry, no rashes Laboratory Results - last 24 hr 03/26/19 03/26/19 03/26/19 12:33 14:29 18:37 WBC RBC Hgb Hct MCV MCH MCHC RDW Plt Count MPV Sodium Potassium 3.6 Chloride Carbon Dioxide Anion Gap BUN Creatinine Est GFR (CKD-EPI)AfAm Est GFR (CKD-EPI)NonAf POC Glucometer 100 96 Random Glucose Calcium Phosphorus Magnesium Total Bilirubin AST ALT Alkaline Phosphatase Total Protein Albumin 03/26/19 03/27/19 03/27/19 23:51 05:17 05:20 WBC 15.2 H RBC 2.70 L Hgb 8.0 L Hct 25.3 L MCV 94.0 MCH 29.8 MCHC 31.7 L RDW 20.3 H Plt Count 52 L MPV 11.4 H Sodium Potassium Chloride Carbon Dioxide Anion Gap BUN Creatinine Est GFR (CKD-EPI)AfAm Est GFR (CKD-EPI)NonAf POC Glucometer 101 113 Random Glucose Calcium Phosphorus Magnesium Total Bilirubin AST ALT Alkaline Phosphatase Total Protein Albumin 03/27/19 05:20 WBC RBC Hgb Hct MCV MCH MCHC RDW Plt Count MPV Sodium 143 Potassium 3.5 Chloride 107 Carbon Dioxide 29 Anion Gap 7 L BUN 39.5 H Creatinine 1.5 H Est GFR (CKD-EPI)AfAm 52.40 Est GFR (CKD-EPI)NonAf 45.21 POC Glucometer Random Glucose 101 Calcium 7.2 L Phosphorus 2.0 L Magnesium 1.9 Total Bilirubin 1.4 H AST 113 H ALT 48 Alkaline Phosphatase 1101 H Total Protein 4.5 L Albumin 1.6 L Active Medications Generic Name Dose Route Start Last Admin Trade Name Freq PRN Reason Stop Dose Admin Amino Acids 30 ml 03/23/19 22:00 03/27/19 05:05 Prosource No Carb Liquid Pkt NGT 30 ml TID CHANTELL Administration Atorvastatin Calcium 20 mg 03/23/19 22:00 03/26/19 22:03 Lipitor - NGT 20 mg HS CHANTELL Administration Collagenase 1 applic 03/22/19 10:00 03/27/19 10:01 Santyl - TP 1 applic DAILY [facility]ANTELL Administration Protocol Escitalopram Oxalate 10 mg 03/24/19 10:00 03/27/19 10:00 Lexapro - NGT 10 mg DAILY [facility]ANTELL Administration Hydrocortisone 50 mg 03/25/19 10:00 03/27/19 09:59 Cortef - PO 50 mg BID CHANTELL Administration Meropenem 500 mg/ Dextrose 100 mls @ 200 mls/hr 03/22/19 10:00 03/27/19 10:00 IVPB 200 mls/hr DAILY [facility]TE[facility] Administration Propofol 1,000,000 mcg in 100 mls @ 2.851 mls/hr 03/27/19 03:45 03/27/19 05: 05 Diprivan - IVPB 5 mcg/kg/min TITR CHANTELL 2.851 mls/hr Titration Protocol 5 MCG/KG/MIN Insulin Aspart 1 vial 03/22/19 00:00 03/27/19 05:18 Novolog Vial Sliding Scale - SQ Not Given Q6HPO [facility] Protocol Metoprolol Tartrate 12.5 mg 03/26/19 10:00 03/27/19 10:00 Lopressor - PO 12.5 mg BID CHANTELL Administration Midodrine 10 mg 03/23/19 18:00 03/27/19 10:00 Proamatine - NGT 10 mg TID-MID CHANTELL Administration Morphine Sulfate 2 mg 03/27/19 01:32 03/27/19 05:04 Morphine Sulfate IVPUSH 2 mg Q3H PRN Administration PAIN LEVEL 6-10 Pantoprazole Sodium 40 mg 03/21/19 22:00 03/27/19 10:22 Protonix Iv IVPUSH 40 mg BID CHANTELL Administration ASSESSMENT/PLAN: Acute respiratory failure Aspiration Pneumonitis R/o ARDS B/l lower extremity gangrene ESRD Hypokalemia DM HLd HTN --Continue to wean O2 requirements --Continue with AC mode of vent and aspiration precautions in place --Continue Santyl and Meropenem for infection control --Hemodynamics stable while on Midodrine --Obtain peripheral access in attempt to remove central access --L IJ about 8 days old; will replace CVC to minimize infection risk. --Morphine 2q4h PRN for pain --HD for tomorrow; monitor electrolytes FEN: Fluids: Minimize unless needed for hemodynamics Electrolyte abnormalities: Hypokalemia repleted today and dialysis Nutrition: Holding Tube feeds due to recent aspiration PPX: GI - Continue Protonix Dispo: ICU monitoring; however continue to discuss GOC with next of kin given severely poor prognosis Case discussed with Dr. Jan Overton - PGY-3 Visit type - Emergency Visit Emergency Visit: Yes ED Registration Date: 02/21/19 Care time: The patient presented to the Emergency Department on the above date and was hospitalized for further evaluation of their emergent condition. - New Patient This patient is new to me today: No - Critical Care Critical Care patient: Yes Total Critical Care Time (in minutes): 35 Critical Care Statement: The care of this patient involved high complexity decision making to prevent further life threatening deterioration of the patient 's condition and/or to evaluate & treat vital organ system(s) failure or risk of failure.
[2019-03-27] MEDS ORDERED: SODIUM CHLORIDE 250 ML IV PRN (11:55)
--- NOTE | 2019-03-27 11:55 | PN ---
Progress Note, Physician History of Present Illness: Pt seen and examined at bedside. He remains in the ICU and is doing poorly. - Current Medication List Current Medications: Active Medications Amino Acids (Prosource No Carb Liquid Pkt) 30 ml NGT TID [facility] Last Admin: 03/27/19 05:05 Dose: 30 ml Atorvastatin Calcium (Lipitor -) 20 mg NGT HS [facility] Last Admin: 03/26/19 22:03 Dose: 20 mg Collagenase (Santyl -) 1 applic TP DAILY [facility]; Protocol Last Admin: 03/27/19 10:01 Dose: 1 applic Escitalopram Oxalate (Lexapro -) 10 mg NGT DAILY [facility] Last Admin: 03/27/19 10:00 Dose: 10 mg Hydrocortisone (Cortef -) 50 mg PO BID [facility] Last Admin: 03/27/19 09:59 Dose: 50 mg Meropenem 500 mg/ Dextrose 100 mls @ 200 mls/hr IVPB DAILY [facility] Last Admin: 03/27/19 10:00 Dose: 200 mls/hr Propofol (Diprivan -) 1,000,000 mcg in 100 mls @ 2.851 mls/hr IVPB TITR [facility]; Protocol Last Titration: 03/27/19 05:05 Dose: 5 mcg/kg/min, 2.851 mls/hr Insulin Aspart (Novolog Vial Sliding Scale -) 1 vial SQ Q6HPO [facility]; Protocol Last Admin: 03/27/19 05:18 Dose: Not Given Metoprolol Tartrate (Lopressor -) 12.5 mg PO BID [facility] Last Admin: 03/27/19 10:00 Dose: 12.5 mg Midodrine (Proamatine -) 10 mg NGT TID-MID [facility] Last Admin: 03/27/19 10:00 Dose: 10 mg Morphine Sulfate (Morphine Sulfate) 2 mg IVPUSH Q3H PRN PRN Reason: PAIN LEVEL 6-10 Last Admin: 03/27/19 05:04 Dose: 2 mg Pantoprazole Sodium (Protonix Iv) 40 mg IVPUSH BID [facility] Last Admin: 03/27/19 10:22 Dose: 40 mg - Objective Vital Signs: Vital Signs Temperature 97.9 F 03/27/19 10:00 Pulse Rate 73 03/27/19 10:00 Respiratory Rate 18 03/27/19 11:07 Blood Pressure 125/66 03/27/19 10:00 O2 Sat by Pulse Oximetry (%) 100 03/27/19 10:00 Constitutional: Yes: Calm Eyes: Yes: Conjunctiva Clear HENT: Yes: Atraumatic Cardiovascular: Yes: S1, S2 Respiratory: Yes: Mechanically Ventilated Gastrointestinal: Yes: Soft Genitourinary: Yes: Incontinence Musculoskeletal: Yes: Muscle Weakness Edema: Yes Edema: LUE: 1+, RUE: 1+, LLE: 1+, RLE: 1+ Neurological: Yes: Lethargy Labs: CBC, BMP 03/27/19 05:20 03/27/19 05:20 INR, PTT INR 1.44 (0.83-1.09) H 02/22/19 05:40 Problem List - Problems (1) ESRD (end stage renal disease) on dialysis Code(s): N18.6 - END STAGE RENAL DISEASE; Z99.2 - DEPENDENCE ON RENAL DIALYSIS Assessment/Plan Current Medications Generic Name Dose Route Start Last Admin Trade Name Freq PRN Reason Stop Dose Admin Amino Acids 30 ml 03/23/19 22:00 03/27/19 05:05 Prosource No Carb Liquid Pkt NGT 30 ml TID CHANTELL Administration Atorvastatin Calcium 20 mg 03/23/19 22:00 03/26/19 22:03 Lipitor - NGT 20 mg HS [facility]TELL Administration Collagenase 1 applic 03/22/19 10:00 03/27/19 10:01 Santyl - TP 1 applic DAILY [facility]TE[facility] Administration Protocol Escitalopram Oxalate 10 mg 03/24/19 10:00 03/27/19 10:00 Lexapro - NGT 10 mg DAILY [facility] Administration Hydrocortisone 50 mg 03/25/19 10:00 03/27/19 09:59 Cortef - PO 50 mg BID [facility]ANTELL Administration Meropenem 500 mg/ Dextrose 100 mls @ 200 mls/hr 03/22/19 10:00 03/27/19 10:00 IVPB 200 mls/hr DAILY [facility] Administration Propofol 1,000,000 mcg in 100 mls @ 2.851 mls/hr 03/27/19 03:45 03/27/19 05: 05 Diprivan - IVPB 5 mcg/kg/min TITR [facility]ANETLL 2.851 mls/hr Titration Protocol 5 MCG/KG/MIN Insulin Aspart 1 vial 03/22/19 00:00 03/27/19 05:18 Novolog Vial Sliding Scale - SQ Not Given Q6HPO [facility] Protocol Metoprolol Tartrate 12.5 mg 03/26/19 10:00 03/27/19 10:00 Lopressor - PO 12.5 mg BID [facility]ANTELL Administration Midodrine 10 mg 03/23/19 18:00 03/27/19 10:00 Proamatine - NGT 10 mg TID-MID [facility]TELL Administration Morphine Sulfate 2 mg 03/27/19 01:32 03/27/19 05:04 Morphine Sulfate IVPUSH 2 mg Q3H PRN Administration PAIN LEVEL 6-10 Pantoprazole Sodium 40 mg 03/21/19 22:00 03/27/19 10:22 Protonix Iv IVPUSH 40 mg BID CHANTELL Administration Impression 1. ESRD 2. gangrene 3. DM 4. hyperlipidemia 5. HTN 6. gout 7. proteinuria 8. hypotension 9. sepsis 10. resp failure 11. GI bleed Plan - HD tomorrow - vent support - family to discuss GOC - 3 k bath on HD - cont wound care - pt is doing poorly
--- NOTE | 2019-03-27 14:23 | PROC ---
Central Line Insertion Indication: Poor Venous Access, Sepsis Risks and Benefits Explained: Yes Consent on Chart: Yes Central Line: Triple Lumen Catheter Anesthesia: 1% Lidocaine Sterile Technique: Yes Ultrasound Guided Assistance: Yes Position: Left Subclavian Post Insertion: Yes: Bilateral Breath Sounds, Bilateral Chest Expansion, Chest X-Ray Ordered Sterile Dressing Applied: Yes Remarks: Supervised by Dr. Montoya/Dr. Miller
--- NOTE | 2019-03-27 16:42 | PN ---
Physical Exam: SUBJECTIVE: Patient examined at the bedside in the AM. Overnight the patient was biting the ET tube and he desaturated to the 80's so they readjusted the ET tube to 23cm and the patient improved and they put him on propofol sedation and repeat CXR said the ET tube is in place. Pt still on midodrine. OBJECTIVE: Vital Signs Period Temp Pulse Resp BP Sys/Zamorano Pulse Ox Last 24 Hr 96.1 F-97.9 F 64-76 14-22 94-126/57-99 83-100 OBJECTIVE: GENERAL: The patient is AO X0, intubated, responsive to pain stimuli. RAAS of - 3 to -4 NECK: neck is supple. LUNGS: course breath sounds b/l , no wheezes, no crackles, no rhonchi, no stridor, or accessory muscle use. HEART: Regular rate and rhythm, S1, S2 without murmur, rubs or gallop as far as could be assessed given the sound of patient grunts with the ventilator. ABDOMEN: Soft, nondistended, hypoactive bowel sounds in all 4 quadrants, no masses appreciated on exam. EXTREMITIES: 1+ pulses b/l dorsalis pedis, 2+pitting edema, b/l gangrenous feet non stageable. Laboratory Results - last 24 hr CBC, BMP 03/27/19 05:20 03/27/19 05:20 Active Medications Current Medications Albumin Human (Albumin Human 25%) 12.5 gm IVPB Q30M [facility] Stop: 03/28/19 13:31 Amino Acids (Prosource No Carb Liquid Pkt) 30 ml NGT TID [facility] Last Admin: 03/27/19 05:05 Dose: 30 ml Atorvastatin Calcium (Lipitor -) 20 mg NGT HS [facility] Last Admin: 03/26/19 22:03 Dose: 20 mg Collagenase (Santyl -) 1 applic TP DAILY [facility]; Protocol Last Admin: 03/27/19 10:01 Dose: 1 applic Escitalopram Oxalate (Lexapro -) 10 mg NGT DAILY [facility] Last Admin: 03/27/19 10:00 Dose: 10 mg Hydrocortisone (Cortef -) 50 mg PO BID [facility] Last Admin: 03/27/19 09:59 Dose: 50 mg Meropenem 500 mg/ Dextrose 100 mls @ 200 mls/hr IVPB DAILY [facility] Last Admin: 03/27/19 10:00 Dose: 200 mls/hr Propofol (Diprivan -) 1,000,000 mcg in 100 mls @ 2.851 mls/hr IVPB TITR [facility]; Protocol Last Titration: 03/27/19 05:05 Dose: 5 mcg/kg/min, 2.851 mls/hr Sodium Chloride (Normal Saline -) 250 mls @ 3,000 mls/hr IV PRN PRN PRN Reason: Hypotension during Dialysis Stop: 03/28/19 11:55 Insulin Aspart (Novolog Vial Sliding Scale -) 1 vial SQ Q6HPO [facility]; Protocol Last Admin: 03/27/19 14:02 Dose: Not Given Metoprolol Tartrate (Lopressor -) 12.5 mg PO BID [facility] Last Admin: 03/27/19 10:00 Dose: 12.5 mg Midodrine (Proamatine -) 10 mg NGT TID-MID [facility] Last Admin: 03/27/19 10:00 Dose: 10 mg Morphine Sulfate (Morphine Sulfate) 2 mg IVPUSH Q3H PRN PRN Reason: PAIN LEVEL 6-10 Last Admin: 03/27/19 05:04 Dose: 2 mg Pantoprazole Sodium (Protonix Iv) 40 mg IVPUSH BID [facility] Last Admin: 03/27/19 10:22 Dose: 40 mg ASSESSMENT/PLAN: This is a 73 y/o M w a PMH od ESRD on dialysis, PVD, HLD, DM, COPD, b/l gangrenous legs admitted for septic shock 2/2 b/l foot gangrene and prolonged hospitalization now in ICU s/p aspiration and now intubated. #Acute hypoxic respiratory failure with hypercapnia due to aspiration PNA - intubated not on pressors on propofol 10micrograms - Pt on meropenem on his 32nd dose. - on hydrocortisone 50 BID for adrenal insufficiency during septic shock. continuing to taper. - Dr. Montoya recs- palliative care for pt -duonebs q6hprn - continue ventilator management - Head of bed elevations - c/w ICU monitoring ##Septic shock resolved -ID consuit (Dr Manrique) appreciate recs - MRSA, ESBL, pseudomonas, E coli B.C.'s on 03/11/19 02/21/19- Gangrenous foot Cx- ESBL, MOrganella morganii, BC's- proteus mirabilis. - septic shock is no longer present due to response to fluids maintaing a map > 70. - Treating with meropenem for the ESBL gangrenous legs (dose 31). #Proteus, ESBL, E coli bacteremia - Cx's positive on this - on meropenem day 31 continue it as per ID. #Infected sacral decubitus ulcers and scrotal ulcer - monitoring the ulcers and keep it dry and clean. #infected gangrenous ulcers on feet - continue to manage as per wound care and keep area dressed in gauze and dry. #Afib w RVR - BP low normal with maps in the 65-70 range off pressors. - central line in place in the event we need pressors. - eliquis has been held for afib due to thrombocytopenia, patient in sinus rythym. - rate control with metoprolol 12.5 BID as needed and hold if systolic BP <90, HR<60, or diastolic <60. - on midodrine for BP #ESRD -patient getting dialysis per nephro (Dr. Patterson) as recommended. - K has normalized to 3.5 Dr. Patterson- contine w dialysis tm. 3 K bath on dialysis. - will continue to monitor lytes #Thrombocytopenia/Anemia -Anemia due to ESRD w decreased EPO from renal malproduction. Continue EPO 12, 000 units. -Maintain Hemoglobin >7 by transfusions as needed. -Thrombocytopenia- if bleeding occurs with a PLT <50 then we will transfuse, if <10 we will transfuse even without the presence of bleeding. - PLT'S 52 will continue to monitor for any bleeds. #Diabetes - has DM - Blood glucose monitoring - Insulin sliding scale #Neuro/Seizure hx - Keppra was stopped on 03/13 but can be resumed in event of seizure. #FEN - will continue monitoring lytes and replete as necessary. - no fluids indicated at this time. - Pt has been NPO due to aspiration potential and tube feeds have been held. Prophylaxis- DVT: SCD's ordered GI: Protonix -Bacid Disposition- we will continue to follow pt in ICU. Molly, the daughter is no longer involved in making family decisions for the final life decisions for this patient. Lokesh (father), Butch (brother), and Nena will be making the [facility] decisions for this patient. Waiting to hear back from family regarding end of life planning. Visit type - Emergency Visit Emergency Visit: No - New Patient This patient is new to me today: No - Critical Care Critical Care patient: Yes Total Critical Care Time (in minutes): 45 Critical Care Statement: The care of this patient involved high complexity decision making to prevent further life threatening deterioration of the patient 's condition and/or to evaluate & treat vital organ system(s) failure or risk of failure. - Discharge Referral Referred to [facility] No
--- NOTE | 2019-03-27 17:12 | PN ---
Progress Note (short form) - Note Progress Note: Called to bedside due to bleed from new subclavian line site. Pressure held and raised head of bed. Bleeding was controlled and dressings was taken down in sterile fashion, site was re-sterilized, Biopatch replaced, and sterile dressing reapplied. CBC, Coags, and fibrinogen ordered given significant spontaneous bleed from site. Fili Overton, DO - IM PGY-3
[2019-03-27 18:00] LABS: HEMATOCRIT 24.7 % (35.4-49); HEMOGLOBIN 7.8 GM/dL (11.7-16.9); MCH 29.6 pg (25.7-33.7); MCHC 31.4 g/dl (32.0-35.9); MEAN CELL VOLUME 94.3 fl (80-96); MEAN PLT VOLUME 12.2 fl (7.5-11.1); PLATELET COUNT 61 K/MM3 (134-434); RBC 2.62 M/mm3 (4.00-5.60); RDW 20.2 % (11.9-15.9)
[2019-03-27 18:02] LABS: INR 1.22 (0.83-1.09); PROTHROMBIN TIME (PATIENT) 14.4 SEC (9.7-13.0)
[2019-03-27] MEDS: ATORVASTATIN CA 20 MG TABLET (FP) NGT SCH (21:10)
[2019-03-28] MEDS: PROPOFOL 1,000,000 MCG/100 ML VIAL IVPB SCH (04:00)
[2019-03-28 06:02] LABS: BASO % 0.2 % (0-2.0); HEMATOCRIT 24.4 % (35.4-49); HEMOGLOBIN 7.7 GM/dL (11.7-16.9); LYMPH % 8.1 % (8-40); MCH 29.9 pg (25.7-33.7); MCHC 31.7 g/dl (32.0-35.9); MEAN CELL VOLUME 94.4 fl (80-96); MEAN PLT VOLUME 11.8 fl (7.5-11.1); MONO % 4.7 % (3.8-10.2); PLATELET COUNT 64 K/MM3 (134-434); RBC 2.58 M/mm3 (4.00-5.60); RDW 19.7 % (11.9-15.9); WHITE BLOOD COUNT 14.5 K/mm3 (4.0-10.0)
[2019-03-28] MEDS: INSULIN SLIDING SCALE (NOVOLOG) 1 VIAL SQ SCH ×4 (06:14→17:26)
[2019-03-28] MEDS: AMINO ACIDS/PROTEIN HYDROLYS 30 ML LIQUID.PKT NGT SCH ×3 (06:15→21:06)
[2019-03-28 06:37] LABS: ALBUMIN 1.4 g/dl (3.4-5.0); BILIRUBIN,TOTAL 1.1 mg/dL (0.2-1); BLOOD UREA NITROGEN 52.6 mg/dL (7-18); CREATININE 1.9 mg/dL (0.55-1.3); MAGNESIUM 1.9 mg/dL (1.8-2.4); PHOSPHOROUS 3.1 mg/dL (2.5-4.9); POTASSIUM 3.4 mmol/L (3.5-5.1); TOT PROT 4.5 g/dl (6.4-8.2)
[2019-03-28] MEDS ORDERED: EPOETIN ALFA IVPUSH ONE (09:00)
[2019-03-28] MEDS: ALBUMIN HUMAN 25% 12.5 GM/50 ML VIAL IVPB SCH ×3 (09:13→09:53)
--- NOTE | 2019-03-28 09:40 | PN ---
Progress Note, Physician History of Present Illness: TRANSFERRED TO ICU AFTER RAPID RESPONSE/RESP FAILURE INTUBATED IN ICU LETHARGIC ATTEMPTS TO OPEN EYES WITH VERBAL STIMULUS TEMPS REMAIN DOWN AFEBRILE WBC REMAINS ELEVATED - Current Medication List Current Medications: Active Medications Amino Acids (Prosource No Carb Liquid Pkt) 30 ml NGT TID [facility] Last Admin: 03/28/19 06:15 Dose: 30 ml Atorvastatin Calcium (Lipitor -) 20 mg NGT HS [facility] Last Admin: 03/27/19 21:10 Dose: 20 mg Collagenase (Santyl -) 1 applic TP DAILY [facility]; Protocol Last Admin: 03/27/19 10:01 Dose: 1 applic Escitalopram Oxalate (Lexapro -) 10 mg NGT DAILY [facility] Last Admin: 03/27/19 10:00 Dose: 10 mg Hydrocortisone (Cortef -) 50 mg PO BID [facility] Last Admin: 03/27/19 21:30 Dose: 50 mg Meropenem 500 mg/ Dextrose 100 mls @ 200 mls/hr IVPB DAILY [facility] Last Admin: 03/27/19 10:00 Dose: 200 mls/hr Propofol (Diprivan -) 1,000,000 mcg in 100 mls @ 2.851 mls/hr IVPB TITR [facility]; Protocol Last Admin: 03/28/19 04:00 Dose: 10 mcg/kg/min, 5.702 mls/hr Sodium Chloride (Normal Saline -) 250 mls @ 3,000 mls/hr IV PRN PRN PRN Reason: Hypotension during Dialysis Stop: 03/28/19 11:55 Insulin Aspart (Novolog Vial Sliding Scale -) 1 vial SQ Q6HPO [facility]; Protocol Last Admin: 03/28/19 06:14 Dose: Not Given Metoprolol Tartrate (Lopressor -) 12.5 mg PO BID [facility] Last Admin: 03/27/19 21:10 Dose: Not Given Midodrine (Proamatine -) 10 mg NGT TID-MID [facility] Last Admin: 03/27/19 18:17 Dose: 10 mg Morphine Sulfate (Morphine Sulfate) 2 mg IVPUSH Q3H PRN PRN Reason: PAIN LEVEL 6-10 Last Admin: 03/27/19 05:04 Dose: 2 mg Pantoprazole Sodium (Protonix Iv) 40 mg IVPUSH BID [facility] Last Admin: 03/27/19 21:09 Dose: 40 mg - Objective Vital Signs: Vital Signs Temperature 98.2 F 03/28/19 07:10 Pulse Rate 57 L 03/28/19 08:23 Respiratory Rate 17 03/28/19 08:23 Blood Pressure 111/65 03/28/19 07:45 O2 Sat by Pulse Oximetry (%) 94 L 03/28/19 08:23 Constitutional: Yes: No Distress Cardiovascular: Yes: Regular Rate and Rhythm, S1, S2 Respiratory: Yes: Mechanically Ventilated Gastrointestinal: Yes: Normal Bowel Sounds, Soft. No: Tenderness Extremities: Yes: Other (+ NECROTIC/ MALODOROUS FOOT ULCERS) Labs: CBC, BMP 03/28/19 05:00 03/28/19 05:00 INR, PTT INR 1.22 (0.83-1.09) H 03/27/19 15:30 Fibrinogen 459.0 mg/dL (238-498) 03/27/19 15:30 Assessment/Plan RESP FAILURE ESBL BACTEREMIA/ SEPSIS +BC 03/11 CONTINUE MEROPENEM PROGNOSIS POOR
--- NOTE | 2019-03-28 09:41 | PN ---
Teaching Attending Note Name of Resident: Fili Haskins ATTENDING PHYSICIAN STATEMENT I saw and evaluated the patient. I reviewed the resident's note and discussed the case with the resident. I agree with the resident's findings and plan as documented. SUBJECTIVE: Patient seen and examined in the ICU. Events from overnight noted. Intubated on AC Mode of vent. Still not able to contact HCP for further medical decisions. No pressors. Currently on acute HD. Intake & Output 03/25/19 03/26/19 03/27/19 03/28/19 23:59 23:59 23:59 23:59 Intake Total 1292 840 336 127 Output Total 0 Balance 1292 840 336 127 Weight 207 lb 209 lb 8 oz 192 lb 12.8 oz 193 lb 5 oz Last Vital Signs Temp Pulse Resp BP Pulse Ox 98.2 F 57 L 17 111/65 94 L 03/28/19 07:10 03/28/19 08:23 03/28/19 08:23 03/28/19 07:45 03/28/19 08:23 Active Medications Amino Acids (Prosource No Carb Liquid Pkt) 30 ml NGT TID [facility] Last Admin: 03/28/19 06:15 Dose: 30 ml Atorvastatin Calcium (Lipitor -) 20 mg NGT HS [facility] Last Admin: 03/27/19 21:10 Dose: 20 mg Collagenase (Santyl -) 1 applic TP DAILY [facility]; Protocol Last Admin: 03/27/19 10:01 Dose: 1 applic Escitalopram Oxalate (Lexapro -) 10 mg NGT DAILY [facility] Last Admin: 03/27/19 10:00 Dose: 10 mg Hydrocortisone (Cortef -) 50 mg PO BID [facility] Last Admin: 03/27/19 21:30 Dose: 50 mg Meropenem 500 mg/ Dextrose 100 mls @ 200 mls/hr IVPB DAILY [facility] Last Admin: 03/27/19 10:00 Dose: 200 mls/hr Propofol (Diprivan -) 1,000,000 mcg in 100 mls @ 2.851 mls/hr IVPB TITR [facility]; Protocol Last Admin: 03/28/19 04:00 Dose: 10 mcg/kg/min, 5.702 mls/hr Sodium Chloride (Normal Saline -) 250 mls @ 3,000 mls/hr IV PRN PRN PRN Reason: Hypotension during Dialysis Stop: 03/28/19 11:55 Insulin Aspart (Novolog Vial Sliding Scale -) 1 vial SQ Q6HPO [facility]; Protocol Last Admin: 03/28/19 06:14 Dose: Not Given Metoprolol Tartrate (Lopressor -) 12.5 mg PO BID [facility] Last Admin: 03/27/19 21:10 Dose: Not Given Midodrine (Proamatine -) 10 mg NGT TID-MID [facility] Last Admin: 03/27/19 18:17 Dose: 10 mg Morphine Sulfate (Morphine Sulfate) 2 mg IVPUSH Q3H PRN PRN Reason: PAIN LEVEL 6-10 Last Admin: 03/27/19 05:04 Dose: 2 mg Pantoprazole Sodium (Protonix Iv) 40 mg IVPUSH BID [facility] Last Admin: 03/27/19 21:09 Dose: 40 mg GENERAL: intubated, lethargic ENT: Dry mucus membranes NECK: No JVD LUNGS: Vented, Coarse breath sounds bilaterally, no wheeze HEART: regular rate and rhythm, no murmurs ABDOMEN: Soft, nontender, BS present MUSCULOSKELETAL: No CVA Tenderness EXTREMITIES: 2+ pulses, 3+ edema bilaterally NEUROLOGICAL: Lethargic SKIN: LE bilateral gangrene, purulent foul smelling discharge, Unstageble sacral ulcer Laboratory Results - last 24 hr 03/27/19 03/27/19 03/27/19 13:45 15:30 15:30 WBC 14.0 H RBC 2.62 L Hgb 7.8 L Hct 24.7 L MCV 94.3 MCH 29.6 MCHC 31.4 L RDW 20.2 H Plt Count 61 L MPV 12.2 H Absolute Neuts (auto) Neutrophils % Lymphocytes % Monocytes % Eosinophils % Basophils % Nucleated RBC % PT with INR INR Fibrinogen 459.0 Sodium Potassium Chloride Carbon Dioxide Anion Gap BUN Creatinine Est GFR (CKD-EPI)AfAm Est GFR (CKD-EPI)NonAf POC Glucometer 113 Random Glucose Calcium Phosphorus Magnesium Total Bilirubin AST ALT Alkaline Phosphatase Total Protein Albumin 03/27/19 03/27/19 03/27/19 15:30 17:48 21:21 WBC RBC Hgb Hct MCV MCH MCHC RDW Plt Count MPV Absolute Neuts (auto) Neutrophils % Lymphocytes % Monocytes % Eosinophils % Basophils % Nucleated RBC % PT with INR 14.40 H INR 1.22 H Fibrinogen Sodium Potassium Chloride Carbon Dioxide Anion Gap BUN Creatinine Est GFR (CKD-EPI)AfAm Est GFR (CKD-EPI)NonAf POC Glucometer 96 109 Random Glucose Calcium Phosphorus Magnesium Total Bilirubin AST ALT Alkaline Phosphatase Total Protein Albumin 03/28/19 03/28/19 05:00 05:00 WBC 14.5 H RBC 2.58 L Hgb 7.7 L Hct 24.4 L MCV 94.4 MCH 29.9 MCHC 31.7 L RDW 19.7 H Plt Count 64 L MPV 11.8 H Absolute Neuts (auto) 12.6 H Neutrophils % 87.0 H Lymphocytes % 8.1 D Monocytes % 4.7 Eosinophils % 0.0 Basophils % 0.2 Nucleated RBC % 0 PT with INR INR Fibrinogen Sodium 143 Potassium 3.4 L Chloride 107 Carbon Dioxide 29 Anion Gap 8 BUN 52.6 H Creatinine 1.9 H Est GFR (CKD-EPI)AfAm 39.37 Est GFR (CKD-EPI)NonAf 33.97 POC Glucometer Random Glucose 104 Calcium 7.0 L Phosphorus 3.1 Magnesium 1.9 Total Bilirubin 1.1 H AST 55 H ALT 32 Alkaline Phosphatase 981 H Total Protein 4.5 L Albumin 1.4 L ASSESSMENT/PLAN: Acute Respiratory Failure Aspiration Pneumonitis with ARDS physiology Recent ESBL E coli Bacteremia Recent Septic Shock Bilateral Feet Gangrene Infected Decubitus Ulcers ESRD on HD DM HTN Hyperlipidemia h/o CVA - continue antibiotics per ID - continue midodrine - monitor H/H - local wound care - HD per renal - aspiration precautions - DVT prophylaxis - continue efforts to discuss medical condition and prognosis with next of kin - given overall poor condition, current medical condition, and overall poor nursing home outcome, recommend palliative/comfort care: However may need to Trach with 2 MD consent - Requires continued ICU monitoring Dr Palmer Critical care time spent in reviewing chart, evaluating patient and formulating plan 36 min
--- NOTE | 2019-03-28 10:02 | PN ---
Physical Exam: SUBJECTIVE: Patient seen and examined at the bedside. Patient remains intubated and on propofol drip. Overnight, patient had bleeding from the subclavian line site, bleeding was controlled. Repeat labs showed no change from patient's baseline. OBJECTIVE: Vital Signs Period Temp Pulse Resp BP Sys/Zamorano Pulse Ox Last 24 Hr 97.2 F-98.2 F 49-73 14-24 111-130/55-72 94-100 GENERAL: The patient is intubated and sedated on propofol. HEAD: Normal with no signs of trauma. EYES: PERRL NECK: Trachea midline, full range of motion, supple. LUNGS: Breath sounds equal, coarse breath sounds bilaterally, no wheezes noted. HEART: Regular rate and rhythm, S1, S2 without murmur, rub or gallop. ABDOMEN: Soft, nontender, nondistended, normoactive bowel sounds, no guarding, no rebound, no hepatosplenomegaly, no masses. EXTREMITIES: 2+ pulses, warm, well-perfused, 3+ edema bilaterally upper and lower extremities NEUROLOGICAL: unable to assess due to sedation SKIN: Warm, dry, extensive necrosing wounds on feet bilaterally. Laboratory Results - last 24 hr 03/27/19 03/27/19 03/27/19 13:45 15:30 15:30 WBC 14.0 H RBC 2.62 L Hgb 7.8 L Hct 24.7 L MCV 94.3 MCH 29.6 MCHC 31.4 L RDW 20.2 H Plt Count 61 L MPV 12.2 H Absolute Neuts (auto) Neutrophils % Lymphocytes % Monocytes % Eosinophils % Basophils % Nucleated RBC % PT with INR INR Fibrinogen 459.0 Sodium Potassium Chloride Carbon Dioxide Anion Gap BUN Creatinine Est GFR (CKD-EPI)AfAm Est GFR (CKD-EPI)NonAf POC Glucometer 113 Random Glucose Calcium Phosphorus Magnesium Total Bilirubin AST ALT Alkaline Phosphatase Total Protein Albumin 03/27/19 03/27/19 03/27/19 15:30 17:48 21:21 WBC RBC Hgb Hct MCV MCH MCHC RDW Plt Count MPV Absolute Neuts (auto) Neutrophils % Lymphocytes % Monocytes % Eosinophils % Basophils % Nucleated RBC % PT with INR 14.40 H INR 1.22 H Fibrinogen Sodium Potassium Chloride Carbon Dioxide Anion Gap BUN Creatinine Est GFR (CKD-EPI)AfAm Est GFR (CKD-EPI)NonAf POC Glucometer 96 109 Random Glucose Calcium Phosphorus Magnesium Total Bilirubin AST ALT Alkaline Phosphatase Total Protein Albumin 03/28/19 03/28/19 05:00 05:00 WBC 14.5 H RBC 2.58 L Hgb 7.7 L Hct 24.4 L MCV 94.4 MCH 29.9 MCHC 31.7 L RDW 19.7 H Plt Count 64 L MPV 11.8 H Absolute Neuts (auto) 12.6 H Neutrophils % 87.0 H Lymphocytes % 8.1 D Monocytes % 4.7 Eosinophils % 0.0 Basophils % 0.2 Nucleated RBC % 0 PT with INR INR Fibrinogen Sodium 143 Potassium 3.4 L Chloride 107 Carbon Dioxide 29 Anion Gap 8 BUN 52.6 H Creatinine 1.9 H Est GFR (CKD-EPI)AfAm 39.37 Est GFR (CKD-EPI)NonAf 33.97 POC Glucometer Random Glucose 104 Calcium 7.0 L Phosphorus 3.1 Magnesium 1.9 Total Bilirubin 1.1 H AST 55 H ALT 32 Alkaline Phosphatase 981 H Total Protein 4.5 L Albumin 1.4 L Active Medications Generic Name Dose Route Start Last Admin Trade Name Freq PRN Reason Stop Dose Admin Amino Acids 30 ml 03/23/19 22:00 03/28/19 06:15 Prosource No Carb Liquid Pkt NGT 30 ml TID [facility] Administration Atorvastatin Calcium 20 mg 03/23/19 22:00 03/27/19 21:10 Lipitor - NGT 20 mg HS [facility] Administration Collagenase 1 applic 03/22/19 10:00 03/27/19 10:01 Santyl - TP 1 applic DAILY [facility] Administration Protocol Escitalopram Oxalate 10 mg 03/24/19 10:00 03/27/19 10:00 Lexapro - NGT 10 mg DAILY [facility] Administration Hydrocortisone 50 mg 03/25/19 10:00 03/27/19 21:30 Cortef - PO 50 mg BID [facility] Administration Meropenem 500 mg/ Dextrose 100 mls @ 200 mls/hr 03/22/19 10:00 03/27/19 10:00 IVPB 200 mls/hr DAILY [facility] Administration Propofol 1,000,000 mcg in 100 mls @ 2.851 mls/hr 03/27/19 03:45 03/28/19 04: 00 Diprivan - IVPB 10 mcg/kg/min TITR [facility] 5.702 mls/hr Administration Protocol 5 MCG/KG/MIN Sodium Chloride 250 mls @ 3,000 mls/hr 03/27/19 11:55 Normal Saline - IV 03/28/19 11:55 PRN PRN Hypotension during Dialysis Insulin Aspart 1 vial 03/22/19 00:00 03/28/19 06:14 Novolog Vial Sliding Scale - SQ Not Given Q6HPO [facility] Protocol Metoprolol Tartrate 12.5 mg 03/26/19 10:00 03/27/19 21:10 Lopressor - PO Not Given BID [facility] Midodrine 10 mg 03/23/19 18:00 03/27/19 18:17 Proamatine - NGT 10 mg TID-MID [facility] Administration Morphine Sulfate 2 mg 03/27/19 01:32 03/27/19 05:04 Morphine Sulfate IVPUSH 2 mg Q3H PRN Administration PAIN LEVEL 6-10 Pantoprazole Sodium 40 mg 03/21/19 22:00 03/27/19 21:09 Protonix Iv IVPUSH 40 mg BID [facility] Administration ASSESSMENT/PLAN: Ren Silva is a 73 year old male with a PMHx of ESRD (M, W, F), PVD, HLD, DM , COPD, B/L gangrenous foot ulcer admitted to the ICU after a rapid response was called and the patient was found to be in acute hypercapneic respiratory failure. Acute respiratory failure Aspiration Pneumonitis R/o ARDS B/l lower extremity gangrene ESRD Hypokalemia DM HLD HTN NEUROLOGIC - remains on propofol drip - morphine 2mg 4qh for pain CARDIOLOGY - on midodrine 10mg tid - continue to monitor hemodynamics - home lipitor 20mg - lopressor 12.5 mg bid RESPIRATORY - intubated - settings rate 12, TV 450, FiO2 35, PEEP 5 - wean as tolerated RENAL - dialysis today - Dr. Henriquez consulted recs appreciated GASTROINTESTINAL - liver enzymes improving GENITOURINARY - stable INFECTIOUS DISEASE - extensive wounds on feet - meropenem day 32 - Dr. Multani consulted recs appreciated - continue Santyl to wounds ENDOCRINE - BGM ACHS - ISS HEMATOLOGY - continue to monitor H/H - Elliquis held due to low H/H and thrombocytopenia MUSCULOSKELETAL - stable PSYCHIATRY - on home lexapro F/E/N - no fluids - hypokalemia, repleted - recent aspiration, no feeds LINES - R permacath - L subclavian line placed / PROPHYLAXIS - protonix - held due to thrombocytopenia and low H/H CODE - full code DISPO - continue to monitor in ICU - needs extensive goals of care discussion with family CASE DISCUSSED WITH DR. HEARD AND PRIMARY TEAM MEKHI MARTINEZ DO - PGY-1 INTERNAL MEDICINE Problem List - Problems (1) ESBL E. coli carrier Code(s): Z22.39 - CARRIER OF OTHER SPECIFIED BACTERIAL DISEASES (2) ESRD (end stage renal disease) on dialysis Code(s): N18.6 - END STAGE RENAL DISEASE; Z99.2 - DEPENDENCE ON RENAL DIALYSIS (3) Gangrene of both feet Code(s): I96 - GANGRENE, NOT ELSEWHERE CLASSIFIED (4) Gram negative sepsis Code(s): A41.50 - GRAM-NEGATIVE SEPSIS, UNSPECIFIED (5) Pressure ulcer Code(s): L89.90 - PRESSURE ULCER OF UNSPECIFIED SITE, UNSPECIFIED STAGE (6) Sacral decubitus ulcer Code(s): L89.159 - PRESSURE ULCER OF SACRAL REGION, UNSPECIFIED STAGE (7) Anemia Code(s): D64.9 - ANEMIA, UNSPECIFIED (8) CKD (chronic kidney disease) Code(s): N18.9 - CHRONIC KIDNEY DISEASE, UNSPECIFIED (9) HLD (hyperlipidemia) Code(s): E78.5 - HYPERLIPIDEMIA, UNSPECIFIED (10) HTN (hypertension) Code(s): I10 - ESSENTIAL (PRIMARY) HYPERTENSION Qualifiers: Hypertension type: essential hypertension Qualified Code(s): I10 - Essential (primary) hypertension (11) Wound of foot Code(s): S91.309A - UNSPECIFIED OPEN WOUND, UNSPECIFIED FOOT, INITIAL ENCOUNTER Visit type - Emergency Visit Emergency Visit: No - New Patient This patient is new to me today: Yes Date on this admission: 03/28/19 - Critical Care Critical Care patient: Yes Total Critical Care Time (in minutes): 36 Critical Care Statement: The care of this patient involved high complexity decision making to prevent further life threatening deterioration of the patient 's condition and/or to evaluate & treat vital organ system(s) failure or risk of failure.
--- NOTE | 2019-03-28 10:05 | PN ---
Teaching Attending Note Name of Resident: Fili Haskins ATTENDING PHYSICIAN STATEMENT I saw and evaluated the patient. I reviewed the resident's note and discussed the case with the resident. I agree with the resident's findings and plan as documented. SUBJECTIVE: Patient seen and examined in the ICU. Remains intubated on AC Mode of vent. Still not able to contact HCP for further medical decisions. No pressors. Currently on acute HD. Intake & Output 03/25/19 03/26/19 03/27/19 03/28/19 23:59 23:59 23:59 23:59 Intake Total 1292 840 336 127 Output Total 0 Balance 1292 840 336 127 Weight 207 lb 209 lb 8 oz 192 lb 12.8 oz 193 lb 5 oz Last Vital Signs Temp Pulse Resp BP Pulse Ox 98.2 F 57 L 17 111/65 94 L 03/28/19 07:10 03/28/19 08:23 03/28/19 08:23 03/28/19 07:45 03/28/19 08:23 Active Medications Amino Acids (Prosource No Carb Liquid Pkt) 30 ml NGT TID [facility] Last Admin: 03/28/19 06:15 Dose: 30 ml Atorvastatin Calcium (Lipitor -) 20 mg NGT HS [facility]TE[facility] Last Admin: 03/27/19 21:10 Dose: 20 mg Collagenase (Santyl -) 1 applic TP DAILY [facility]TE[facility]; Protocol Last Admin: 03/27/19 10:01 Dose: 1 applic Escitalopram Oxalate (Lexapro -) 10 mg NGT DAILY [facility] Last Admin: 03/27/19 10:00 Dose: 10 mg Hydrocortisone (Cortef -) 50 mg PO BID [facility]TE[facility] Last Admin: 03/27/19 21:30 Dose: 50 mg Meropenem 500 mg/ Dextrose 100 mls @ 200 mls/hr IVPB DAILY [facility] Last Admin: 03/27/19 10:00 Dose: 200 mls/hr Propofol (Diprivan -) 1,000,000 mcg in 100 mls @ 2.851 mls/hr IVPB TITR [facility]; Protocol Last Admin: 03/28/19 04:00 Dose: 10 mcg/kg/min, 5.702 mls/hr Sodium Chloride (Normal Saline -) 250 mls @ 3,000 mls/hr IV PRN PRN PRN Reason: Hypotension during Dialysis Stop: 03/28/19 11:55 Insulin Aspart (Novolog Vial Sliding Scale -) 1 vial SQ Q6HPO [facility]; Protocol Last Admin: 03/28/19 06:14 Dose: Not Given Metoprolol Tartrate (Lopressor -) 12.5 mg PO BID [facility] Last Admin: 03/27/19 21:10 Dose: Not Given Midodrine (Proamatine -) 10 mg NGT TID-MID [facility] Last Admin: 03/27/19 18:17 Dose: 10 mg Morphine Sulfate (Morphine Sulfate) 2 mg IVPUSH Q3H PRN PRN Reason: PAIN LEVEL 6-10 Last Admin: 03/27/19 05:04 Dose: 2 mg Pantoprazole Sodium (Protonix Iv) 40 mg IVPUSH BID [facility] Last Admin: 03/27/19 21:09 Dose: 40 mg GENERAL: intubated, lethargic ENT: Dry mucus membranes NECK: No JVD LUNGS: Vented, Coarse breath sounds bilaterally, no wheeze HEART: regular rate and rhythm, no murmurs ABDOMEN: Soft, nontender, BS present MUSCULOSKELETAL: No CVA Tenderness EXTREMITIES: 2+ pulses, 3+ edema bilaterally NEUROLOGICAL: Lethargic SKIN: LE bilateral gangrene, purulent foul smelling discharge, Unstageble sacral ulcer Laboratory Results - last 24 hr 03/27/19 03/27/19 03/27/19 13:45 15:30 15:30 WBC 14.0 H RBC 2.62 L Hgb 7.8 L Hct 24.7 L MCV 94.3 MCH 29.6 MCHC 31.4 L RDW 20.2 H Plt Count 61 L MPV 12.2 H Absolute Neuts (auto) Neutrophils % Lymphocytes % Monocytes % Eosinophils % Basophils % Nucleated RBC % PT with INR INR Fibrinogen 459.0 Sodium Potassium Chloride Carbon Dioxide Anion Gap BUN Creatinine Est GFR (CKD-EPI)AfAm Est GFR (CKD-EPI)NonAf POC Glucometer 113 Random Glucose Calcium Phosphorus Magnesium Total Bilirubin AST ALT Alkaline Phosphatase Total Protein Albumin 03/27/19 03/27/19 03/27/19 15:30 17:48 21:21 WBC RBC Hgb Hct MCV MCH MCHC RDW Plt Count MPV Absolute Neuts (auto) Neutrophils % Lymphocytes % Monocytes % Eosinophils % Basophils % Nucleated RBC % PT with INR 14.40 H INR 1.22 H Fibrinogen Sodium Potassium Chloride Carbon Dioxide Anion Gap BUN Creatinine Est GFR (CKD-EPI)AfAm Est GFR (CKD-EPI)NonAf POC Glucometer 96 109 Random Glucose Calcium Phosphorus Magnesium Total Bilirubin AST ALT Alkaline Phosphatase Total Protein Albumin 03/28/19 03/28/19 05:00 05:00 WBC 14.5 H RBC 2.58 L Hgb 7.7 L Hct 24.4 L MCV 94.4 MCH 29.9 MCHC 31.7 L RDW 19.7 H Plt Count 64 L MPV 11.8 H Absolute Neuts (auto) 12.6 H Neutrophils % 87.0 H Lymphocytes % 8.1 D Monocytes % 4.7 Eosinophils % 0.0 Basophils % 0.2 Nucleated RBC % 0 PT with INR INR Fibrinogen Sodium 143 Potassium 3.4 L Chloride 107 Carbon Dioxide 29 Anion Gap 8 BUN 52.6 H Creatinine 1.9 H Est GFR (CKD-EPI)AfAm 39.37 Est GFR (CKD-EPI)NonAf 33.97 POC Glucometer Random Glucose 104 Calcium 7.0 L Phosphorus 3.1 Magnesium 1.9 Total Bilirubin 1.1 H AST 55 H ALT 32 Alkaline Phosphatase 981 H Total Protein 4.5 L Albumin 1.4 L ASSESSMENT/PLAN: Acute Respiratory Failure Aspiration Pneumonitis with ARDS physiology Recent ESBL E coli Bacteremia Recent Septic Shock Bilateral Feet Gangrene Infected Decubitus Ulcers ESRD on HD DM HTN Hyperlipidemia h/o CVA - continue antibiotics per ID - continue midodrine - monitor H/H - local wound care - HD per renal - aspiration precautions - DVT prophylaxis - continue efforts to discuss medical condition and prognosis with next of kin - given overall poor condition, current medical condition, and overall poor halfway outcome, recommend palliative/comfort care: However may need to Trach with 2 MD consent - Requires continued ICU monitoring Dr Palmer Critical care time spent in reviewing chart, evaluating patient and formulating plan 36 min OBJECTIVE: ASSESSMENT AND PLAN:
--- NOTE | 2019-03-28 10:22 | PN ---
Progress Note, Physician History of Present Illness: Pt seen and examined at bedside. He is tolerating HD. - Current Medication List Current Medications: Active Medications Amino Acids (Prosource No Carb Liquid Pkt) 30 ml NGT TID REPLACED BY [facility] Last Admin: 03/28/19 06:15 Dose: 30 ml Atorvastatin Calcium (Lipitor -) 20 mg NGT HS REPLACED BY [facility] Last Admin: 03/27/19 21:10 Dose: 20 mg Collagenase (Santyl -) 1 applic TP DAILY REPLACED BY [facility]; Protocol Last Admin: 03/27/19 10:01 Dose: 1 applic Escitalopram Oxalate (Lexapro -) 10 mg NGT DAILY REPLACED BY [facility] Last Admin: 03/27/19 10:00 Dose: 10 mg Hydrocortisone (Cortef -) 50 mg PO BID REPLACED BY [facility] Last Admin: 03/27/19 21:30 Dose: 50 mg Meropenem 500 mg/ Dextrose 100 mls @ 200 mls/hr IVPB DAILY REPLACED BY [facility] Last Admin: 03/27/19 10:00 Dose: 200 mls/hr Propofol (Diprivan -) 1,000,000 mcg in 100 mls @ 2.851 mls/hr IVPB TITR REPLACED BY [facility]; Protocol Last Admin: 03/28/19 04:00 Dose: 10 mcg/kg/min, 5.702 mls/hr Sodium Chloride (Normal Saline -) 250 mls @ 3,000 mls/hr IV PRN PRN PRN Reason: Hypotension during Dialysis Stop: 03/28/19 11:55 Insulin Aspart (Novolog Vial Sliding Scale -) 1 vial SQ Q6HPO REPLACED BY [facility]; Protocol Last Admin: 03/28/19 06:14 Dose: Not Given Metoprolol Tartrate (Lopressor -) 12.5 mg PO BID REPLACED BY [facility] Last Admin: 03/27/19 21:10 Dose: Not Given Midodrine (Proamatine -) 10 mg NGT TID-MID REPLACED BY [facility] Last Admin: 03/27/19 18:17 Dose: 10 mg Morphine Sulfate (Morphine Sulfate) 2 mg IVPUSH Q3H PRN PRN Reason: PAIN LEVEL 6-10 Last Admin: 03/27/19 05:04 Dose: 2 mg Pantoprazole Sodium (Protonix Iv) 40 mg IVPUSH BID REPLACED BY [facility] Last Admin: 03/27/19 21:09 Dose: 40 mg - Objective Vital Signs: Vital Signs Temperature 98.2 F 03/28/19 07:10 Pulse Rate 60 03/28/19 09:15 Respiratory Rate 24 H 03/28/19 09:15 Blood Pressure 121/70 03/28/19 09:15 O2 Sat by Pulse Oximetry (%) 94 L 03/28/19 08:23 Constitutional: Yes: Calm Eyes: Yes: Conjunctiva Clear HENT: Yes: Atraumatic Cardiovascular: Yes: S1, S2 Respiratory: Yes: Mechanically Ventilated Gastrointestinal: Yes: Soft Genitourinary: Yes: Incontinence Musculoskeletal: Yes: Muscle Weakness Edema: Yes Edema: LUE: 1+, RUE: 1+ Wound/Incision: Yes: Other (odor from wounds) Labs: CBC, BMP 03/28/19 05:00 03/28/19 05:00 INR, PTT INR 1.22 (0.83-1.09) H 03/27/19 15:30 Fibrinogen 459.0 mg/dL (238-498) 03/27/19 15:30 Problem List - Problems (1) ESRD (end stage renal disease) on dialysis Code(s): N18.6 - END STAGE RENAL DISEASE; Z99.2 - DEPENDENCE ON RENAL DIALYSIS Assessment/Plan Current Medications Generic Name Dose Route Start Last Admin Trade Name Freq PRN Reason Stop Dose Admin Amino Acids 30 ml 03/23/19 22:00 03/28/19 06:15 Prosource No Carb Liquid Pkt NGT 30 ml TID CHANTELL Administration Atorvastatin Calcium 20 mg 03/23/19 22:00 03/27/19 21:10 Lipitor - NGT 20 mg HS CHANTELL Administration Collagenase 1 applic 03/22/19 10:00 03/27/19 10:01 Santyl - TP 1 applic DAILY CHANTELL Administration Protocol Escitalopram Oxalate 10 mg 03/24/19 10:00 03/27/19 10:00 Lexapro - NGT 10 mg DAILY CHANTELL Administration Hydrocortisone 50 mg 03/25/19 10:00 03/27/19 21:30 Cortef - PO 50 mg BID CHANTELL Administration Meropenem 500 mg/ Dextrose 100 mls @ 200 mls/hr 03/22/19 10:00 03/27/19 10:00 IVPB 200 mls/hr DAILY [facility]ANTELL Administration Propofol 1,000,000 mcg in 100 mls @ 2.851 mls/hr 03/27/19 03:45 03/28/19 04: 00 Diprivan - IVPB 10 mcg/kg/min TITR CHANTELL 5.702 mls/hr Administration Protocol 5 MCG/KG/MIN Sodium Chloride 250 mls @ 3,000 mls/hr 03/27/19 11:55 Normal Saline - IV 03/28/19 11:55 PRN PRN Hypotension during Dialysis Insulin Aspart 1 vial 03/22/19 00:00 03/28/19 06:14 Novolog Vial Sliding Scale - SQ Not Given Q6HPO REPLACED BY [facility] Protocol Metoprolol Tartrate 12.5 mg 03/26/19 10:00 03/27/19 21:10 Lopressor - PO Not Given BID REPLACED BY [facility] Midodrine 10 mg 03/23/19 18:00 03/27/19 18:17 Proamatine - NGT 10 mg TID-MID REPLACED BY [facility] Administration Morphine Sulfate 2 mg 03/27/19 01:32 03/27/19 05:04 Morphine Sulfate IVPUSH 2 mg Q3H PRN Administration PAIN LEVEL 6-10 Pantoprazole Sodium 40 mg 03/21/19 22:00 03/27/19 21:09 Protonix Iv IVPUSH 40 mg BID REPLACED BY [facility] Administration Impression 1. ESRD 2. gangrene 3. DM 4. hyperlipidemia 5. HTN 6. gout 7. proteinuria 8. hypotension 9. sepsis 10. resp failure 11. GI bleed Plan - HD today - monitor bp - will UF volume - cont feeds - 3 k bath on HD - cont wound care - pt is doing poorly
[2019-03-28] MEDS ORDERED: ALBUMIN HUMAN 25% 12.5 GM/50 ML VIAL IVPB SCH (12:00)
[2019-03-28] MEDS: KCL 10 MEQ IVPB 10 MEQ/100 ML INFUS.BAG IVPB SCH ×2 (12:06→13:33)
[2019-03-28] MEDS: MEROPENEM 500 MG in DEXTROSE 5%-WATER 100 ML IVPB SCH (12:06)
[2019-03-28] MEDS: PANTOPRAZOLE SODIUM 40 MG VIAL IVPUSH SCH ×2 (12:22→21:07)
[2019-03-28] MEDS: METOPROLOL TARTRATE 25 MG TABLET (FP) PO SCH ×2 (12:22→21:07)
[2019-03-28] MEDS: MIDODRINE HCL 5 MG TABLET NGT SCH ×3 (13:13→18:24)
[2019-03-28] MEDS: HYDROCORTISONE 20 MG TABLET PO SCH ×2 (13:13→21:06)
[2019-03-28] MEDS: MULTIVIT-MINERALS ORAL LIQUID NGT SCH (13:13)
[2019-03-28] MEDS: ESCITALOPRAM OXALATE 10 MG TABLET (FP) NGT SCH (13:13)
[2019-03-28] MEDS: COLLAGENASE CLOSTRIDIUM HIST. 30 GRAMS TUBE TP SCH (13:13)
[2019-03-28] MEDS ORDERED: DEXTROSE 50%-WATER 25 GM/50 ML DISP.SYRIN ONE (17:49)
--- NOTE | 2019-03-28 18:39 | PN ---
Progress Note (short form) - Note Progress Note: Patient in ICU, intubated & sedated. No new event overnight. Vital Signs Temperature 98.0 F 03/28/19 18:37 Pulse Rate 63 03/28/19 18:37 Respiratory Rate 18 03/28/19 18:37 Blood Pressure 96/55 L 03/28/19 18:37 O2 Sat by Pulse Oximetry (%) 94 L 03/28/19 08:23 GENERAL: The patient is intubated , sedated. HEAD: Normal with no signs of trauma. EYES: extraocular movements intact, sclera anicteric, ENT: intubated and sedated . NECK: Trachea midline, positive for ET-tube LUNGS: intubated , sedated . HEART: RRR , S1, S2 without murmur, rub or gallop. ABDOMEN: Soft, NT, ND, BS positive, no guarding, no rebound, no hepatosplenomegaly, no masses. EXTREMITIES: gangrenous lower extremities SKIN: Warm. CBCD WBC 14.5 K/mm3 (4.0-10.0) H 03/28/19 05:00 RBC 2.58 M/mm3 (4.00-5.60) L 03/28/19 05:00 Hgb 7.7 GM/dL (11.7-16.9) L 03/28/19 05:00 Hct 24.4 % (35.4-49) L 03/28/19 05:00 MCV 94.4 fl (80-96) 03/28/19 05:00 MCHC 31.7 g/dl (32.0-35.9) L 03/28/19 05:00 RDW 19.7 % (11.9-15.9) H 03/28/19 05:00 Plt Count 64 K/MM3 (134-434) L 03/28/19 05:00 MPV 11.8 fl (7.5-11.1) H 03/28/19 05:00 CMP Sodium 143 mmol/L (136-145) 03/28/19 05:00 Potassium 3.4 mmol/L (3.5-5.1) L 03/28/19 05:00 Chloride 107 mmol/L (98-107) 03/28/19 05:00 Carbon Dioxide 29 mmol/L (21-32) 03/28/19 05:00 Anion Gap 8 MMOL/L (8-16) 03/28/19 05:00 BUN 52.6 mg/dL (7-18) H 03/28/19 05:00 Creatinine 1.9 mg/dL (0.55-1.3) H 03/28/19 05:00 Random Glucose 104 mg/dL (74-106) 03/28/19 05:00 Calcium 7.0 mg/dL (8.5-10.1) L 03/28/19 05:00 Total Bilirubin 1.1 mg/dL (0.2-1) H 03/28/19 05:00 AST 55 U/L (15-37) H 03/28/19 05:00 ALT 32 U/L (13-61) 03/28/19 05:00 Alkaline Phosphatase 981 U/L (45-117) H 03/28/19 05:00 Total Protein 4.5 g/dl (6.4-8.2) L 03/28/19 05:00 Albumin 1.4 g/dl (3.4-5.0) L 03/28/19 05:00 CARDIAC ENZYMES Troponin I < 0.02 ng/ml (0.00-0.05) 02/21/19 15:10 Current Medications Generic Name Dose Route Start Last Admin Trade Name Kassandra PRN Reason Stop Dose Admin Amino Acids 30 ml 03/23/19 22:00 03/28/19 15:00 Prosource No Carb Liquid Pkt NGT 30 ml TID [facility]ANTELL Administration Atorvastatin Calcium 20 mg 03/23/19 22:00 03/27/19 21:10 Lipitor - NGT 20 mg HS [facility]ANTELL Administration Collagenase 1 applic 03/22/19 10:00 03/28/19 13:13 Santyl - TP 1 applic DAILY [facility]ANTELL Administration Protocol Escitalopram Oxalate 10 mg 03/24/19 10:00 03/28/19 13:13 Lexapro - NGT 10 mg DAILY [facility]TE[facility] Administration Hydrocortisone 50 mg 03/25/19 10:00 03/28/19 13:13 Cortef - PO 50 mg BID [facility]ANTELL Administration Meropenem 500 mg/ Dextrose 100 mls @ 200 mls/hr 03/22/19 10:00 03/28/19 12:06 IVPB 200 mls/hr DAILY [facility] Administration Propofol 1,000,000 mcg in 100 mls @ 2.851 mls/hr 03/27/19 03:45 03/28/19 04: 00 Diprivan - IVPB 10 mcg/kg/min TITR CHANTELL 5.702 mls/hr Administration Protocol 5 MCG/KG/MIN Insulin Aspart 1 vial 03/22/19 00:00 03/28/19 17:26 Novolog Vial Sliding Scale - SQ Not Given Q6HPO [facility] Protocol Metoprolol Tartrate 12.5 mg 03/26/19 10:00 03/28/19 12:22 Lopressor - PO Not Given BID [facility]ANTELL Midodrine 10 mg 03/23/19 18:00 03/28/19 18:24 Proamatine - NGT 10 mg TID-MID [facility]ANTELL Administration Morphine Sulfate 2 mg 03/27/19 01:32 03/27/19 05:04 Morphine Sulfate IVPUSH 2 mg Q3H PRN Administration PAIN LEVEL 6-10 Pantoprazole Sodium 40 mg 03/21/19 22:00 03/28/19 12:22 Protonix Iv IVPUSH 40 mg BID [facility] Administration Home Medications Medication Instructions Recorded Albuterol 2.5/Ipratropium 0.5 1 amp NEB Q6H PRN #0 amp 07/12/17 [Duoneb -] Allopurinol [Zyloprim -] 100 mg PO DAILY tablet 07/12/17 Atorvastatin Ca [Lipitor] 20 mg PO HS tablet 07/12/17 Collagenase Clostridium Hist. 1 applic TP DAILY tube 09/06/18 [Santyl -] Albuterol Sulfate [Proair Hfa] 2 puff IH Q6H PRN 10/29/18 Escitalopram Oxalate [Lexapro -] 10 mg PO DAILY 10/29/18 Folic Acid/Vit B Complex and C 1 each PO DAILY 10/29/18 [Dialyvite Tablet] Midodrine HCl 10 mg PO MOWEFR 10/29/18 Sevelamer Carbonate [Renvela -] 1,600 mg PO TID 10/29/18 Tamsulosin HCl [Flomax] 0.4 mg PO HS 10/29/18 Insulin Sliding Scale [Novolog 1 vial SQ TIDAC #1 vial 11/17/18 Vial Sliding Scale -] Apixaban [Eliquis -] 5 mg PO BID #30 tablet MDD 2 11/19/18 Collagenase Clostridium Hist. 1 applic TP DAILY #1 tube 01/17/19 [Santyl -] Amoxicillin/Potassium Clav 1 each PO DAILY #7 tablet 02/06/19 [Augmentin 500-125 Tablet] Megestrol Acetate Oral Susp 400 mg PO DAILY #20 cup 02/06/19 [Megace Liquid -] Protein Supplement [Prosource] 275 gm PO TID #60 powder 02/06/19 Lactobacillus Acidophilus [Bacid -] 1 tab PO DAILY #60 tab 02/19/19 Midodrine HCl [Proamatine -] 5 mg PO SuTuThSa #60 tablet 02/19/19 traMADol HCL [Ultram -] 50 mg PO Q6H PRN #60 tablet MDD 4 02/19/19 Microbiology 03/24/19 15:40 Blood - Peripheral Venous Blood Culture - Preliminary NO GROWTH OBTAINED AFTER 96 HOURS, INCUBATION TO CONTINUE FOR 1 DAYS. 03/24/19 16:09 Blood - Peripheral Venous Blood Culture - Preliminary NO GROWTH OBTAINED AFTER 96 HOURS, INCUBATION TO CONTINUE FOR 1 DAYS. 03/11/19 05:30 Blood - Peripheral Venous Blood Culture - Final NO GROWTH AFTER 5 DAYS INCUBATION 03/11/19 10:15 Sputum - Endotrachea Suction/Ventilator Gram Stain - Final 03/11/19 10:15 Sputum - Endotrachea Suction/Ventilator Sputum Culture - Final Mr S Aureus Escherichia Coli Esbl Hotbed Operator Acinetobacter Baumannii/Haemol Pseudomonas Aeruginosa 03/11/19 06:45 Blood - Peripheral Venous Blood Culture - Final Escherichia Coli Esbl Hotbed Operator 02/23/19 11:50 Blood - Peripheral Venous Blood Culture - Final NO GROWTH AFTER 5 DAYS INCUBATION 02/23/19 11:50 Blood - Peripheral Venous Blood Culture - Final NO GROWTH AFTER 5 DAYS INCUBATION 02/21/19 13:16 Blood - Peripheral Venous Blood Culture - Final Proteus Mirabilis Prevotella Melaninogenica 02/21/19 16:30 Foot - Left Heel Gram Stain - Final 02/21/19 16:30 Foot - Left Heel Wound Culture - Final Escherichia Coli Esbl Hotbed Operator Morganella Morganii 02/21/19 15:40 Blood - Peripheral Venous Blood Culture - Final Proteus Mirabilis 02/21/19 14:50 Urine - Urine - Catheterized Urine Culture - Final NO GROWTH OBTAINED ASSESSMENT AND PLAN: Patient is a 73 y/o man with h/o dementia, CVA, DM, COPD, ESRD, gout, HTN, HLP, recent admission 01/31-02/19 during which he was treated for sepsis due to infected b/l feet ulcers/gangrene. He was sent from [place] due to poor po intake, and non healing wounds # Acute hypoxic resp failure/aspiration s/p extubated and re-intubation , further care per ICU ,HOB elevation. # Septic shock resolved cont hydrocortisone at 50 BID ,cont taper # Infected sacral decub and scrotal ulcer on IV antibiotic continue cont meropenem # Proteus bacteremia ,ESBL producing E coli bacteremia cont meropenem # ESRD on HD per schedule , on Midodrine , had bedside HD, tolerated, nephro # DM SSI # Infected gangrenous of LEs with open wounds cont meropenem #anemia #A fib with RVR hold eliquis due to thrombocytopenia #thrombocytopenia hold eliquis due to thrombocytopenia # hx of seizure keppra stopped on 03/13 , if seizures recur then can resume Poor prognosis. Visit type - Emergency Visit Emergency Visit: Yes ED Registration Date: 02/21/19 Care time: The patient presented to the Emergency Department on the above date and was hospitalized for further evaluation of their emergent condition. - New Patient This patient is new to me today: No - Critical Care Critical Care patient: No - Discharge Referral Referred to [facility] No
[2019-03-28] MEDS ORDERED: NOREPINEPHRINE BITARTRATE 4 MG/4 ML ML IV ONE (20:11)
--- NOTE | 2019-03-28 20:19 | HOSP ---
Physical Examination Vital Signs: Vital Signs Temperature 98.0 F 03/28/19 18:37 Pulse Rate 63 03/28/19 18:37 Respiratory Rate 16 03/28/19 19:13 Blood Pressure 96/55 L 03/28/19 18:37 O2 Sat by Pulse Oximetry (%) 94 L 03/28/19 08:23 Labs: CBC, BMP 03/28/19 05:00 03/28/19 05:00
[2019-03-28] MEDS ORDERED: fentaNYL CITRATE 250 MCG/5 ML VIAL ONE (20:24)
[2019-03-28] MEDS ORDERED: FENTANYL INJECTION 500 MCG in DEXTROSE 5%-WATER - 90 ML IVPB SCH (20:30)
[2019-03-28] MEDS: ATORVASTATIN CA 20 MG TABLET (FP) NGT SCH (21:06)
[2019-03-28] MEDS: NOREPINEPHRINE BITARTRATE 8,000 MCG in DEXTROSE 5%-WATER - 492 ML IV SCH (22:07)
[2019-03-29] MEDS: INSULIN SLIDING SCALE (NOVOLOG) 1 VIAL SQ SCH ×4 (00:58→17:50)
[2019-03-29 06:17] LABS: HEMATOCRIT 27.1 % (35.4-49); HEMOGLOBIN 8.7 GM/dL (11.7-16.9); MCH 30.1 pg (25.7-33.7); MCHC 32.1 g/dl (32.0-35.9); MEAN CELL VOLUME 93.7 fl (80-96); MEAN PLT VOLUME 11.8 fl (7.5-11.1); PLATELET COUNT 91 K/MM3 (134-434); RDW 20.2 % (11.9-15.9); WHITE BLOOD COUNT 23.1 K/mm3 (4.0-10.0)
[2019-03-29 06:25] LABS: ALBUMIN 1.5 g/dl (3.4-5.0); BILIRUBIN,TOTAL 1.2 mg/dL (0.2-1); BLOOD UREA NITROGEN 36.4 mg/dL (7-18); CREATININE 1.4 mg/dL (0.55-1.3); MAGNESIUM 1.8 mg/dL (1.8-2.4); POTASSIUM 3.8 mmol/L (3.5-5.1); TOT PROT 4.6 g/dl (6.4-8.2)
[2019-03-29] MEDS: AMINO ACIDS/PROTEIN HYDROLYS 30 ML LIQUID.PKT NGT SCH ×3 (06:32→21:31)
[2019-03-29 06:42] LABS: PHOSPHOROUS 2.4 mg/dL (2.5-4.9)
[2019-03-29 06:47] LABS: CALCIUM 6.9 mg/dL (8.5-10.1)
[2019-03-29] MEDS: FENTANYL INJECTION 500 MCG in DEXTROSE 5%-WATER - 90 ML IVPB SCH (07:00)
[2019-03-29] MEDS ORDERED: POTASSIUM PHOSPHATE 30 MM in DEXTROSE 5%-WATER - 250 ML IVPB ONE (09:00)
[2019-03-29] MEDS ORDERED: PT OWN MED DRAWER 7, Y5N ONE ×2 (09:50→10:34)
[2019-03-29] MEDS ORDERED: FENTANYL INJECTION 500 MCG in DEXTROSE 5%-WATER - 90 ML IVPB SCH (10:05)
[2019-03-29] MEDS: MIDODRINE HCL 5 MG TABLET NGT SCH ×3 (10:15→17:49)
--- NOTE | 2019-03-29 10:24 | PN ---
Teaching Attending Note Name of Resident: Fili Haskins ATTENDING PHYSICIAN STATEMENT I saw and evaluated the patient. I reviewed the resident's note and discussed the case with the resident. I agree with the resident's findings and plan as documented. SUBJECTIVE: Pt seen and examined in the ICU. Remains intubated, sedated. Placed on low dose pressors overnight, briefly hypoxic now improved. OBJECTIVE: Vital Signs Period Temp Pulse Resp BP Sys/Zamorano Pulse Ox Last 24 Hr 97.9 F-98.2 F 56-80 1223 60-119/38-73 Intake & Output 03/26/19 03/27/19 03/28/19 03/29/19 23:59 23:59 23:59 23:59 Intake Total 840 336 555 98 Output Total 0 Balance 840 336 555 98 Weight 95.028 kg 87.453 kg 87.685 kg 87.498 kg Gen: intubated, sedated Heart: RRR Lung: scattered rhonchi Abd: soft, nontender Ext: + edema, wrapped CBC, BMP 03/29/19 05:20 03/29/19 05:20 Active Medications Amino Acids (Prosource No Carb Liquid Pkt) 30 ml NGT TID [facility] Last Admin: 03/29/19 06:32 Dose: 30 ml Apixaban (Eliquis -) 2.5 mg PO BID [facility] Atorvastatin Calcium (Lipitor -) 20 mg NGT HS [facility] Last Admin: 03/28/19 21:06 Dose: 20 mg Collagenase (Santyl -) 1 applic TP DAILY [facility]; Protocol Last Admin: 03/28/19 13:13 Dose: 1 applic Escitalopram Oxalate (Lexapro -) 10 mg NGT DAILY [facility] Last Admin: 03/28/19 13:13 Dose: 10 mg Hydrocortisone (Cortef -) 50 mg PO BID [facility] Last Admin: 03/28/19 21:06 Dose: 50 mg Meropenem 500 mg/ Dextrose 100 mls @ 200 mls/hr IVPB DAILY [facility] Last Admin: 03/28/19 12:06 Dose: 200 mls/hr Propofol (Diprivan -) 1,000,000 mcg in 100 mls @ 2.851 mls/hr IVPB TITR [facility]; Protocol Last Admin: 03/28/19 04:00 Dose: 10 mcg/kg/min, 5.702 mls/hr Norepinephrine Bitartrate 8, (000 mcg/ Dextrose) 500 mls @ 18.75 mls/hr IV TITR [facility]; Protocol Last Admin: 03/28/19 22:07 Dose: 3 mcg/min, 11.25 mls/hr Potassium Phosphate 30 mm/ (Dextrose) 260 mls @ 62.5 mls/hr IVPB ONCE ONE Stop: 03/29/19 13:09 Last Admin: 03/29/19 09:18 Dose: 62.5 mls/hr Fentanyl 500 mcg/ Dextrose 100 mls @ 5 mls/hr IVPB TITR [facility]ANTELL Insulin Aspart (Novolog Vial Sliding Scale -) 1 vial SQ Q6HPO [facility]; Protocol Last Admin: 03/29/19 06:31 Dose: Not Given Metoprolol Tartrate (Lopressor -) 12.5 mg PO BID [facility] Last Admin: 03/28/19 21:07 Dose: Not Given Midodrine (Proamatine -) 10 mg NGT TID-MID [facility] Last Admin: 03/28/19 18:24 Dose: 10 mg Morphine Sulfate (Morphine Sulfate) 2 mg IVPUSH Q3H PRN PRN Reason: PAIN LEVEL 6-10 Last Admin: 03/27/19 05:04 Dose: 2 mg Pantoprazole Sodium (Protonix Iv) 40 mg IVPUSH BID [facility] Last Admin: 03/28/19 21:07 Dose: 40 mg ASSESSMENT AND PLAN: Acute Respiratory Failure Aspiration Pneumonitis with ARDS physiology Recent ESBL E coli Bacteremia Bilateral Feet Gangrene Infected Decubitus Ulcers Septic Shock ESRD on HD DM HTN Hyperlipidemia h/o CVA - continue antibiotics per ID - continue midodrine - taper pressors to maintain MAP >65 - monitor H/H - local wound care - HD per renal - aspiration precautions - DVT prophylaxis - continue efforts to discuss medical condition and prognosis with next of kin - given overall poor condition, current medical condition, and overall poor oysterman outcome, recommend palliative/comfort care - continue ICU monitoring critical care time spent in reviewing chart, evaluating patient and formulating plan 35 min
[2019-03-29] MEDS: ESCITALOPRAM OXALATE 10 MG TABLET (FP) NGT SCH (10:36)
[2019-03-29] MEDS: METOPROLOL TARTRATE 25 MG TABLET (FP) PO SCH ×2 (10:36→21:31)
--- NOTE | 2019-03-29 10:36 | PN ---
Physical Exam: SUBJECTIVE: Overnight patient, had an episode of desaturation and decreased MAP. Was restarted on Levophed currently running at 2mcg/hr. Patient seen and examined at the bedside. Patient remains intubated and sedated on propofol and fentanyl for pain and comfort. OBJECTIVE: Vital Signs Period Temp Pulse Resp BP Sys/Zamorano Pulse Ox Last 24 Hr 97.9 F-98.2 F 56-80 12-23 60-119/38-73 GENERAL: The patient is intubated and sedated on propofol, fentanyl. Occasional grimace to pain. HEAD: Normal with no signs of trauma. EYES: PERRL NECK: Trachea midline, full range of motion, supple. LUNGS: Breath sounds equal, coarse breath sounds bilaterally, no wheezes noted. HEART: Regular rate and rhythm, S1, S2 without murmur, rub or gallop. ABDOMEN: Soft, nontender, nondistended, normoactive bowel sounds, no guarding, no rebound, no hepatosplenomegaly, no masses. EXTREMITIES: 2+ pulses, warm, well-perfused, 3+ edema bilaterally upper and lower extremities NEUROLOGICAL: unable to assess due to sedation SKIN: Warm, dry, extensive necrosing wounds on feet bilaterally. Laboratory Results - last 24 hr 03/28/19 03/28/19 03/29/19 13:11 17:18 00:46 WBC RBC Hgb Hct MCV MCH MCHC RDW Plt Count MPV Sodium Potassium Chloride Carbon Dioxide Anion Gap BUN Creatinine Est GFR (CKD-EPI)AfAm Est GFR (CKD-EPI)NonAf POC Glucometer 79 67 77 Random Glucose Calcium Phosphorus Magnesium Total Bilirubin AST ALT Alkaline Phosphatase Total Protein Albumin 03/29/19 03/29/19 03/29/19 05:20 05:20 06:26 WBC 23.1 H RBC 2.90 L Hgb 8.7 L Hct 27.1 L MCV 93.7 MCH 30.1 MCHC 32.1 RDW 20.2 H Plt Count 91 L D MPV 11.8 H Sodium 143 Potassium 3.8 Chloride 106 Carbon Dioxide 31 Anion Gap 5 L BUN 36.4 H Creatinine 1.4 H Est GFR (CKD-EPI)AfAm 56.96 Est GFR (CKD-EPI)NonAf 49.14 POC Glucometer 103 Random Glucose 110 H Calcium 6.9 L* Phosphorus 2.4 L Magnesium 1.8 Total Bilirubin 1.2 H AST 42 H ALT 25 Alkaline Phosphatase 865 H Total Protein 4.6 L Albumin 1.5 L Active Medications Generic Name Dose Route Start Last Admin Trade Name Kassandra PRN Reason Stop Dose Admin Amino Acids 30 ml 03/23/19 22:00 03/29/19 06:32 Prosource No Carb Liquid Pkt NGT 30 ml TID CHANTELL Administration Apixaban 2.5 mg 03/29/19 22:00 Eliquis - PO BID CHANTELL Atorvastatin Calcium 20 mg 03/23/19 22:00 03/28/19 21:06 Lipitor - NGT 20 mg HS CHANTELL Administration Collagenase 1 applic 03/22/19 10:00 03/28/19 13:13 Santyl - TP 1 applic DAILY CHANTELL Administration Protocol Escitalopram Oxalate 10 mg 03/24/19 10:00 03/28/19 13:13 Lexapro - NGT 10 mg DAILY CHANTELL Administration Hydrocortisone 50 mg 03/25/19 10:00 03/28/19 21:06 Cortef - PO 50 mg BID CHANTELL Administration Meropenem 500 mg/ Dextrose 100 mls @ 200 mls/hr 03/22/19 10:00 03/28/19 12:06 IVPB 200 mls/hr DAILY CHANTELL Administration Propofol 1,000,000 mcg in 100 mls @ 2.851 mls/hr 03/27/19 03:45 03/28/19 04: 00 Diprivan - IVPB 10 mcg/kg/min TITR CHANTELL 5.702 mls/hr Administration Protocol 5 MCG/KG/MIN Norepinephrine Bitartrate 8, 500 mls @ 18.75 mls/hr 03/28/19 22:00 03/28/19 22:07 000 mcg/ Dextrose IV 3 mcg/min TITR CHANTELL 11.25 mls/hr Administration Protocol 5 MCG/MIN Potassium Phosphate 30 mm/ 260 mls @ 62.5 mls/hr 03/29/19 09:00 03/29/19 09: 18 Dextrose IVPB 03/29/19 13:09 62.5 mls/hr ONCE ONE Administration Fentanyl 500 mcg/ Dextrose 100 mls @ 5 mls/hr 03/29/19 10:05 IVPB TITR CHANTELL 25 MCG/HR Insulin Aspart 1 vial 03/22/19 00:00 03/29/19 06:31 Novolog Vial Sliding Scale - SQ Not Given Q6HPO CHANTELL Protocol Metoprolol Tartrate 12.5 mg 03/26/19 10:00 03/28/19 21:07 Lopressor - PO Not Given BID [facility] Midodrine 10 mg 03/23/19 18:00 03/28/19 18:24 Proamatine - NGT 10 mg TID-MID CHANTELL Administration Morphine Sulfate 2 mg 03/27/19 01:32 03/27/19 05:04 Morphine Sulfate IVPUSH 2 mg Q3H PRN Administration PAIN LEVEL 6-10 Pantoprazole Sodium 40 mg 03/21/19 22:00 03/28/19 21:07 Protonix Iv IVPUSH 40 mg BID CHANTELL Administration ASSESSMENT/PLAN: Ren Silva is a 73 year old male with a PMHx of ESRD (M, W, F), PVD, HLD, DM , COPD, B/L gangrenous foot ulcer admitted to the ICU after a rapid response was called and the patient was found to be in acute hypercapneic respiratory failure. Acute respiratory failure Aspiration Pneumonitis R/o ARDS B/l lower extremity gangrene ESRD Hypokalemia DM HLD HTN NEUROLOGIC - remains on propofol drip - morphine 2mg 4qh for pain - fentanyl 25mcg/hr - remains unresponsive CARDIOLOGY - on midodrine 10mg tid - on Levophed 2mcg/hr - increased MAP requirements likely due to septic shock from necrosing leg wounds - will attempt to wean off pressors - continue to monitor hemodynamics - home lipitor 20mg - lopressor 12.5 mg bid RESPIRATORY - intubated - increased oxygen requirements likely from sepsis from necrosing leg wounds - settings rate 12, TV 450, FiO2 50, PEEP 5 - wean as tolerated RENAL - dialysis yesterday - Dr. Henriquez consulted recs appreciated GASTROINTESTINAL - liver enzymes improving GENITOURINARY - stable INFECTIOUS DISEASE - extensive wounds on feet - meropenem day 33 - Dr. Multani consulted recs appreciated - continue Santyl to wounds ENDOCRINE - BGM ACHS - ISS HEMATOLOGY - continue to monitor H/H - thrombocytopenia resolving - Elliquis restarted 2.5mg bid MUSCULOSKELETAL - stable PSYCHIATRY - on home lexapro F/E/N - no fluids - low phosphorous repleted - restarted tube feeds at 10ml/hr LINES - R permacath - L subclavian line placed 03/27 PROPHYLAXIS - protonix - restarted Elliquis 2.5mg bid CODE - full code DISPO - continue to monitor in ICU - needs extensive goals of care discussion with family CASE DISCUSSED WITH DR. HAGEN AND PRIMARY TEAM MEKHI MARTINEZ DO - PGY-1 INTERNAL MEDICINE Problem List - Problems (1) ESBL E. coli carrier Code(s): Z22.39 - CARRIER OF OTHER SPECIFIED BACTERIAL DISEASES (2) ESRD (end stage renal disease) on dialysis Code(s): N18.6 - END STAGE RENAL DISEASE; Z99.2 - DEPENDENCE ON RENAL DIALYSIS (3) Gangrene of both feet Code(s): I96 - GANGRENE, NOT ELSEWHERE CLASSIFIED (4) Gram negative sepsis Code(s): A41.50 - GRAM-NEGATIVE SEPSIS, UNSPECIFIED (5) Pressure ulcer Code(s): L89.90 - PRESSURE ULCER OF UNSPECIFIED SITE, UNSPECIFIED STAGE (6) Sacral decubitus ulcer Code(s): L89.159 - PRESSURE ULCER OF SACRAL REGION, UNSPECIFIED STAGE (7) Anemia Code(s): D64.9 - ANEMIA, UNSPECIFIED (8) CKD (chronic kidney disease) Code(s): N18.9 - CHRONIC KIDNEY DISEASE, UNSPECIFIED (9) HLD (hyperlipidemia) Code(s): E78.5 - HYPERLIPIDEMIA, UNSPECIFIED (10) HTN (hypertension) Code(s): I10 - ESSENTIAL (PRIMARY) HYPERTENSION Qualifiers: Hypertension type: essential hypertension Qualified Code(s): I10 - Essential (primary) hypertension (11) Wound of foot Code(s): S91.309A - UNSPECIFIED OPEN WOUND, UNSPECIFIED FOOT, INITIAL ENCOUNTER Visit type - Emergency Visit Emergency Visit: No - New Patient This patient is new to me today: No - Critical Care Critical Care patient: Yes Total Critical Care Time (in minutes): 35 Critical Care Statement: The care of this patient involved high complexity decision making to prevent further life threatening deterioration of the patient 's condition and/or to evaluate & treat vital organ system(s) failure or risk of failure.
[2019-03-29] MEDS: HYDROCORTISONE 20 MG TABLET PO SCH ×2 (10:37→21:31)
[2019-03-29] MEDS: MULTIVIT-MINERALS ORAL LIQUID NGT SCH (10:38)
[2019-03-29] MEDS: PANTOPRAZOLE SODIUM 40 MG VIAL IVPUSH SCH ×2 (10:40→21:31)
--- NOTE | 2019-03-29 10:55 | PN ---
Progress Note, Physician History of Present Illness: INTUBATED IN ICU LETHARGIC TEMPS REMAIN DOWN AFEBRILE WBC REMAINS ELEVATED - Current Medication List Current Medications: Active Medications Amino Acids (Prosource No Carb Liquid Pkt) 30 ml NGT TID CHANTELL Last Admin: 03/29/19 06:32 Dose: 30 ml Apixaban (Eliquis -) 2.5 mg PO BID CHANTELL Atorvastatin Calcium (Lipitor -) 20 mg NGT HS [facility] Last Admin: 03/28/19 21:06 Dose: 20 mg Collagenase (Santyl -) 1 applic TP DAILY CHANTELL; Protocol Last Admin: 03/28/19 13:13 Dose: 1 applic Escitalopram Oxalate (Lexapro -) 10 mg NGT DAILY CHANTELL Last Admin: 03/29/19 10:36 Dose: 10 mg Hydrocortisone (Cortef -) 50 mg PO BID CHANTELL Last Admin: 03/29/19 10:37 Dose: 50 mg Meropenem 500 mg/ Dextrose 100 mls @ 200 mls/hr IVPB DAILY [facility] Last Admin: 03/28/19 12:06 Dose: 200 mls/hr Propofol (Diprivan -) 1,000,000 mcg in 100 mls @ 2.851 mls/hr IVPB TITR CHANTELL; Protocol Last Admin: 03/28/19 04:00 Dose: 10 mcg/kg/min, 5.702 mls/hr Norepinephrine Bitartrate 8, (000 mcg/ Dextrose) 500 mls @ 18.75 mls/hr IV TITR [facility]; Protocol Last Admin: 03/28/19 22:07 Dose: 3 mcg/min, 11.25 mls/hr Potassium Phosphate 30 mm/ (Dextrose) 260 mls @ 62.5 mls/hr IVPB ONCE ONE Stop: 03/29/19 13:09 Last Admin: 03/29/19 09:18 Dose: 62.5 mls/hr Fentanyl 500 mcg/ Dextrose 100 mls @ 5 mls/hr IVPB TITR [facility]; Protocol Insulin Aspart (Novolog Vial Sliding Scale -) 1 vial SQ Q6HPO CHANTELL; Protocol Last Admin: 03/29/19 06:31 Dose: Not Given Metoprolol Tartrate (Lopressor -) 12.5 mg PO BID [facility] Last Admin: 03/29/19 10:36 Dose: 12.5 mg Midodrine (Proamatine -) 10 mg NGT TID-MID [facility] Last Admin: 03/28/19 18:24 Dose: 10 mg Morphine Sulfate (Morphine Sulfate) 2 mg IVPUSH Q3H PRN PRN Reason: PAIN LEVEL 6-10 Last Admin: 03/27/19 05:04 Dose: 2 mg Pantoprazole Sodium (Protonix Iv) 40 mg IVPUSH BID [facility] Last Admin: 03/29/19 10:40 Dose: 40 mg - Objective Vital Signs: Vital Signs Temperature 98.0 F 03/28/19 18:37 Pulse Rate 67 03/29/19 07:00 Respiratory Rate 16 03/29/19 09:32 Blood Pressure 105/58 L 03/29/19 07:00 O2 Sat by Pulse Oximetry (%) 94 L 03/28/19 08:23 Constitutional: Yes: No Distress Eyes: Yes: Conjunctiva Clear Cardiovascular: Yes: Regular Rate and Rhythm, S1, S2 Respiratory: Yes: Mechanically Ventilated Gastrointestinal: Yes: Normal Bowel Sounds, Soft. No: Tenderness Extremities: Yes: Other (+ NECROTIC FOOT ULCERS) Labs: CBC, BMP 03/29/19 05:20 03/29/19 05:20 INR, PTT INR 1.22 (0.83-1.09) H 03/27/19 15:30 Fibrinogen 459.0 mg/dL (238-498) 03/27/19 15:30 Assessment/Plan RESP FAILURE PROBABLE ASP PNEUMONIA ESRD ESBL BACTEREMIA/ SEPSIS +BC 03/11 CONTINUE MEROPENEM PROGNOSIS POOR
[2019-03-29] MEDS: COLLAGENASE CLOSTRIDIUM HIST. 30 GRAMS TUBE TP SCH (11:01)
[2019-03-29] MEDS: MEROPENEM 500 MG in DEXTROSE 5%-WATER 100 ML IVPB SCH (12:00)
--- NOTE | 2019-03-29 12:17 | PN ---
Progress Note (short form) - Note Progress Note: RENAL intubated sedated on pressors Last Vital Signs Temp Pulse Resp BP Pulse Ox 98.0 F 67 16 105/58 L 94 L 03/28/19 18:37 03/29/19 07:00 03/29/19 09:32 03/29/19 07:00 03/28/19 08:23 lungs clear anteriorly cvs s1s2 rr +mary abd soft ext upper extremity edema, lower extremity dressing neuro sedated CBC, BMP 03/29/19 05:20 03/29/19 05:20 Current Medications Generic Name Dose Route Start Last Admin Trade Name Freq PRN Reason Stop Dose Admin Amino Acids 30 ml 03/23/19 22:00 03/29/19 06:32 Prosource No Carb Liquid Pkt NGT 30 ml TID CHANTELL Administration Apixaban 2.5 mg 03/29/19 22:00 Eliquis - PO BID CHANTELL Atorvastatin Calcium 20 mg 03/23/19 22:00 03/28/19 21:06 Lipitor - NGT 20 mg HS CHANTELL Administration Collagenase 1 applic 03/22/19 10:00 03/29/19 11:01 Santyl - TP 1 applic DAILY CHANTELL Administration Protocol Escitalopram Oxalate 10 mg 03/24/19 10:00 03/29/19 10:36 Lexapro - NGT 10 mg DAILY CHANTELL Administration Hydrocortisone 50 mg 03/25/19 10:00 03/29/19 10:37 Cortef - PO 50 mg BID CHANTELL Administration Meropenem 500 mg/ Dextrose 100 mls @ 200 mls/hr 03/22/19 10:00 03/28/19 12:06 IVPB 200 mls/hr DAILY CHANTELL Administration Propofol 1,000,000 mcg in 100 mls @ 2.851 mls/hr 03/27/19 03:45 03/28/19 04: 00 Diprivan - IVPB 10 mcg/kg/min TITR CHANTELL 5.702 mls/hr Administration Protocol 5 MCG/KG/MIN Norepinephrine Bitartrate 8, 500 mls @ 18.75 mls/hr 03/28/19 22:00 03/28/19 22:07 000 mcg/ Dextrose IV 3 mcg/min TITR CHANTELL 11.25 mls/hr Administration Protocol 5 MCG/MIN Potassium Phosphate 30 mm/ 260 mls @ 62.5 mls/hr 03/29/19 09:00 07/05/19 09: 18 Dextrose IVPB 03/29/19 13:09 62.5 mls/hr ONCE ONE Administration Fentanyl 500 mcg/ Dextrose 100 mls @ 5 mls/hr 03/29/19 10:45 03/29/19 07:00 IVPB 25 mcg/hr TITR CHANTELL 5 mls/hr Administration Protocol 25 MCG/HR Insulin Aspart 1 vial 03/22/19 00:00 03/29/19 06:31 Novolog Vial Sliding Scale - SQ Not Given Q6HPO [facility] Protocol Metoprolol Tartrate 12.5 mg 03/26/19 10:00 03/29/19 10:36 Lopressor - PO 12.5 mg BID CHANTELL Administration Midodrine 10 mg 03/23/19 18:00 03/28/19 18:24 Proamatine - NGT 10 mg TID-MID CHANTELL Administration Morphine Sulfate 2 mg 03/27/19 01:32 03/27/19 05:04 Morphine Sulfate IVPUSH 2 mg Q3H PRN Administration PAIN LEVEL 6-10 Pantoprazole Sodium 40 mg 03/21/19 22:00 03/29/19 10:40 Protonix Iv IVPUSH 40 mg BID CHANTELL Administration Impression 1. ESRD- has low creat due to minimal muscle mass 2. gangrene 3. DM 4. hyperlipidemia 5. HTN 6. gout 7. proteinuria 8. hypotension 9. sepsis 10. resp failure 11. GI bleed Plan - HD done yesterday - monitor bp - will dialyze again tomorrow - cont feeds - 3 k bath on HD - cont wound care -prognosis is poor MV
[2019-03-29 12:28] LABS: ARTERIAL BLD GAS O2 SATURATION 98.6 % (95-98); ARTERIAL BLOOD GAS BASE EXCESS 2.7 meq/l (-2-2); ARTERIAL BLOOD GAS PCO2 41.8 mmHg (35-45); ARTERIAL BLOOD GAS PO2 113 mmHg (80-105); ARTERIAL BLOOD GAS pH 7.42 (7.35-7.45)
[2019-03-29 12:29] LABS: ALLENS TEST POSITIVE
--- NOTE | 2019-03-29 13:27 | PN ---
Physical Exam: SUBJECTIVE: Patient seen and examined at the bedside this AM. Overnight events were a decrease in the MAP to <65, pt started on Levophed 2mcg/min, fentanyl for sedation and comfort. We are continuing the propofol as well for sedation and comfort. Pt has since been stable. Still afebrile with marked leukocytosis. OBJECTIVE: Vital Signs Period Temp Pulse Resp BP Sys/Zamorano Pulse Ox Last 24 Hr 98.0 F-98.2 F 56-80 12-23 60-129/38-74 GENERAL: The patient is in no acute distress. RAAS -3 to -4. Pt is intubated on levophed, fentanyl, and propofol. LUNGS: Breath sounds decreased bilaterally, no wheezes, no crackles. HEART: Regular rate and rhythm, S1, S2 without murmur, rub or gallop. ABDOMEN: Soft, nontender, nondistended, hypoactive bowel sounds, no guarding, no rebound. EXTREMITIES:warm, well-perfused, b/l 3+ upper and lower extremity edema. SKIN: warm, dry, wrapped gangrenous ulcers on feet b/l, scrotal ulcer. Laboratory Results - last 24 hr 03/28/19 03/29/19 03/29/19 17:18 00:46 05:20 WBC 23.1 H RBC 2.90 L Hgb 8.7 L Hct 27.1 L MCV 93.7 MCH 30.1 MCHC 32.1 RDW 20.2 H Plt Count 91 L D MPV 11.8 H Puncture Site ABG pH ABG pCO2 at Pt Temp ABG pO2 at Pt Temp ABG HCO3 ABG O2 Sat (Measured) ABG O2 Content ABG Base Excess Johan Test Oxygen Flow Rate Sodium Potassium Chloride Carbon Dioxide Anion Gap BUN Creatinine Est GFR (CKD-EPI)AfAm Est GFR (CKD-EPI)NonAf POC Glucometer 67 77 Random Glucose Calcium Phosphorus Magnesium Total Bilirubin AST ALT Alkaline Phosphatase Total Protein Albumin 03/29/19 03/29/19 03/29/19 05:20 06:26 12:11 WBC RBC Hgb Hct MCV MCH MCHC RDW Plt Count MPV Puncture Site Right radial ABG pH 7.42 ABG pCO2 at Pt Temp 41.8 ABG pO2 at Pt Temp 113 H ABG HCO3 26.9 ABG O2 Sat (Measured) 98.6 H ABG O2 Content 12.4 L ABG Base Excess 2.7 H Johan Test Positive Oxygen Flow Rate 50 Sodium 143 Potassium 3.8 Chloride 106 Carbon Dioxide 31 Anion Gap 5 L BUN 36.4 H Creatinine 1.4 H Est GFR (CKD-EPI)AfAm 56.96 Est GFR (CKD-EPI)NonAf 49.14 POC Glucometer 103 Random Glucose 110 H Calcium 6.9 L* Phosphorus 2.4 L Magnesium 1.8 Total Bilirubin 1.2 H AST 42 H ALT 25 Alkaline Phosphatase 865 H Total Protein 4.6 L Albumin 1.5 L Active Medications Generic Name Dose Route Start Last Admin Trade Name Freq PRN Reason Stop Dose Admin Amino Acids 30 ml 03/23/19 22:00 03/29/19 06:32 Prosource No Carb Liquid Pkt NGT 30 ml TID CHANTELL Administration Apixaban 2.5 mg 03/29/19 22:00 Eliquis - PO BID CHANTELL Atorvastatin Calcium 20 mg 03/23/19 22:00 03/28/19 21:06 Lipitor - NGT 20 mg HS CHANTELL Administration Collagenase 1 applic 03/22/19 10:00 03/29/19 11:01 Santyl - TP 1 applic DAILY CHANTELL Administration Protocol Escitalopram Oxalate 10 mg 03/24/19 10:00 03/29/19 10:36 Lexapro - NGT 10 mg DAILY CHANTELL Administration Hydrocortisone 50 mg 03/25/19 10:00 03/29/19 10:37 Cortef - PO 50 mg BID CHANTELL Administration Meropenem 500 mg/ Dextrose 100 mls @ 200 mls/hr 03/22/19 10:00 03/28/19 12:06 IVPB 200 mls/hr DAILY CHANTELL Administration Propofol 1,000,000 mcg in 100 mls @ 2.851 mls/hr 03/27/19 03:45 03/28/19 04: 00 Diprivan - IVPB 10 mcg/kg/min TITR CHANTELL 5.702 mls/hr Administration Protocol 5 MCG/KG/MIN Norepinephrine Bitartrate 8, 500 mls @ 18.75 mls/hr 03/28/19 22:00 03/28/19 22:07 000 mcg/ Dextrose IV 3 mcg/min TITR CHANTELL 11.25 mls/hr Administration Protocol 5 MCG/MIN Fentanyl 500 mcg/ Dextrose 100 mls @ 5 mls/hr 03/29/19 10:45 03/29/19 07:00 IVPB 25 mcg/hr TITR CHANTELL 5 mls/hr Administration Protocol 25 MCG/HR Insulin Aspart 1 vial 03/22/19 00:00 03/29/19 06:31 Novolog Vial Sliding Scale - SQ Not Given Q6HPO CHANTELL Protocol Metoprolol Tartrate 12.5 mg 03/26/19 10:00 03/29/19 10:36 Lopressor - PO 12.5 mg BID CHANTELL Administration Midodrine 10 mg 03/23/19 18:00 03/28/19 18:24 Proamatine - NGT 10 mg TID-MID CHANTELL Administration Morphine Sulfate 2 mg 03/27/19 01:32 03/27/19 05:04 Morphine Sulfate IVPUSH 2 mg Q3H PRN Administration PAIN LEVEL 6-10 Pantoprazole Sodium 40 mg 03/21/19 22:00 03/29/19 10:40 Protonix Iv IVPUSH 40 mg BID CHANTELL Administration ASSESSMENT/PLAN: This is a 73 y/o M w a PMH od ESRD on dialysis, PVD, HLD, DM, COPD, b/l gangrenous legs admitted for septic shock 2/2 b/l foot gangrene and prolonged hospitalization now in ICU s/p aspiration and now intubated. #Acute hypoxic respiratory failure with hypercapnia due to aspiration PNA - intubated started on levophed overnight due to MAP <65, on propofol 10micrograms and fentanyl for abdominal pain and sedation. - Pt on meropenem on his 34th dose. - on hydrocortisone 50 BID for adrenal insufficiency during septic shock. continuing to taper. - Dr. Montoya recs- palliative care for pt -duonebs q6hprn - continue ventilator management - Head of bed elevations - c/w ICU monitoring #Septic shock resolved -ID consuit (Dr Multani) appreciate recs - MRSA, ESBL, pseudomonas, E coli B.C.'s on 03/11/19 02/21/19- Gangrenous foot Cx- ESBL, MOrganella morganii, BC's- proteus mirabilis. - septic shock due to MAP<65 despite fluids. - Treating with meropenem for the ESBL gangrenous legs (dose 33). #Proteus, ESBL, E coli bacteremia - Cx's positive on this - on meropenem dose 33 continue it as per ID. #Infected sacral decubitus ulcers and scrotal ulcer - monitoring the ulcers and keeping it dry and clean. #infected gangrenous ulcers on feet - continue to manage as per wound care and keep area dressed in gauze and dry. #Afib w RVR -decrease in MAP<65 geno levophed started 2mcg/min - eliquis has been restarted for afib due to PLT's uptrending. - rate control with metoprolol 12.5 BID as needed and hold if systolic BP <90, HR<60, or diastolic <60. - on midodrine for BP #ESRD -As per renal -HD done yesterday - will monitor bp - will dialyze again tomorrow - continue tube feeds - 3 k bath on HD #Thrombocytopenia/Anemia -Anemia due to ESRD w decreased EPO from renal malproduction. Continue EPO 12, 000 units. -Maintain Hemoglobin >7 by transfusions as needed. -Thrombocytopenia- if bleeding occurs with a PLT <50 then we will transfuse, if <10 we will transfuse even without the presence of bleeding. - PLT'S 91 much higher than before will continue to monitor. -restarted eliquis due to PLT level coming back up. #Diabetes - has DM - Blood glucose monitoring - Insulin sliding scale #Neuro/Seizure hx - Keppra was stopped on 03/13 but can be resumed in event of seizure. #FEN - will continue monitoring lytes and replete as necessary. - no fluids indicated at this time. - Pt has been NPO due to aspiration potential and tube feeds have been held. Prophylaxis- DVT: on eliquis 2.5 GI: Protonix -Bacid Disposition- we will continue to follow pt in ICU. End of life goal still being discussed. Visit type - Emergency Visit Emergency Visit: No - New Patient This patient is new to me today: No - Critical Care Critical Care patient: Yes Total Critical Care Time (in minutes): 45 Critical Care Statement: The care of this patient involved high complexity decision making to prevent further life threatening deterioration of the patient 's condition and/or to evaluate & treat vital organ system(s) failure or risk of failure. - Discharge Referral Referred to [facility] Med [facility] No
[2019-03-29] MEDS: PROPOFOL 1,000,000 MCG/100 ML VIAL IVPB SCH (13:37)
[2019-03-29] MEDS: MORPHINE SULFATE 2 MG/ML VIAL IVPUSH PRN (16:36)
[2019-03-29] MEDS ORDERED: fentaNYL CITRATE 250 MCG/5 ML VIAL ONE (17:53)
--- NOTE | 2019-03-29 18:57 | PN ---
Teaching Attending Note Name of Resident: Michele Mchugh ATTENDING PHYSICIAN STATEMENT I saw and evaluated the patient. I reviewed the resident's note and discussed the case with the resident. I agree with the resident's findings and plan as documented. SUBJECTIVE: Patient is placed back on pressor, is in ICU. OBJECTIVE: Vital Signs Temperature 97.9 F 03/29/19 14:00 Pulse Rate 75 03/29/19 16:00 Respiratory Rate 14 03/29/19 17:36 Blood Pressure 120/67 03/29/19 16:00 O2 Sat by Pulse Oximetry (%) 94 L 03/28/19 08:23 GENERAL: The patient is intubated , sedated. HEAD: Normal with no signs of trauma. EYES: extraocular movements intact, sclera anicteric, ENT: intubated and sedated . NECK: Trachea midline, positive for ET-tube LUNGS: intubated , sedated . HEART: RRR , S1, S2 without murmur, rub or gallop. ABDOMEN: Soft, NT, ND, BS positive, no guarding, no rebound, no hepatosplenomegaly, no masses. EXTREMITIES: gangrenous lower extremities SKIN: Warm. CBCD WBC 23.1 K/mm3 (4.0-10.0) H 03/29/19 05:20 RBC 2.90 M/mm3 (4.00-5.60) L 03/29/19 05:20 Hgb 8.7 GM/dL (11.7-16.9) L 03/29/19 05:20 Hct 27.1 % (35.4-49) L 03/29/19 05:20 MCV 93.7 fl (80-96) 03/29/19 05:20 MCHC 32.1 g/dl (32.0-35.9) 03/29/19 05:20 RDW 20.2 % (11.9-15.9) H 03/29/19 05:20 Plt Count 91 K/MM3 (134-434) L D 03/29/19 05:20 MPV 11.8 fl (7.5-11.1) H 03/29/19 05:20 CMP Sodium 143 mmol/L (136-145) 03/29/19 05:20 Potassium 3.8 mmol/L (3.5-5.1) 03/29/19 05:20 Chloride 106 mmol/L (98-107) 03/29/19 05:20 Carbon Dioxide 31 mmol/L (21-32) 03/29/19 05:20 Anion Gap 5 MMOL/L (8-16) L 03/29/19 05:20 BUN 36.4 mg/dL (7-18) H 03/29/19 05:20 Creatinine 1.4 mg/dL (0.55-1.3) H 03/29/19 05:20 Random Glucose 110 mg/dL (74-106) H 03/29/19 05:20 Calcium 6.9 mg/dL (8.5-10.1) L* 03/29/19 05:20 Total Bilirubin 1.2 mg/dL (0.2-1) H 03/29/19 05:20 AST 42 U/L (15-37) H 03/29/19 05:20 ALT 25 U/L (13-61) 03/29/19 05:20 Alkaline Phosphatase 865 U/L (45-117) H 03/29/19 05:20 Total Protein 4.6 g/dl (6.4-8.2) L 03/29/19 05:20 Albumin 1.5 g/dl (3.4-5.0) L 03/29/19 05:20 CARDIAC ENZYMES Troponin I < 0.02 ng/ml (0.00-0.05) 02/21/19 15:10 Current Medications Generic Name Dose Route Start Last Admin Trade Name Freq PRN Reason Stop Dose Admin Amino Acids 30 ml 03/23/19 22:00 03/29/19 15:00 Prosource No Carb Liquid Pkt NGT 30 ml TID [facility]ANTELL Administration Apixaban 2.5 mg 03/29/19 22:00 Eliquis - PO BID [facility]ANTE[facility] Atorvastatin Calcium 20 mg 03/23/19 22:00 03/28/19 21:06 Lipitor - NGT 20 mg HS [facility]ANTELL Administration Collagenase 1 applic 03/22/19 10:00 03/29/19 11:01 Santyl - TP 1 applic DAILY [facility]LL Administration Protocol Escitalopram Oxalate 10 mg 03/24/19 10:00 03/29/19 10:36 Lexapro - NGT 10 mg DAILY [facility] Administration Hydrocortisone 50 mg 03/25/19 10:00 03/29/19 10:37 Cortef - PO 50 mg BID CHANTELL Administration Meropenem 500 mg/ Dextrose 100 mls @ 200 mls/hr 03/22/19 10:00 03/29/19 12:00 IVPB 200 mls/hr DAILY [facility] Administration Propofol 1,000,000 mcg in 100 mls @ 2.851 mls/hr 03/27/19 03:45 03/29/19 13: 37 Diprivan - IVPB 5 mcg/kg/min TITR CHANTELL 2.851 mls/hr Administration Protocol 5 MCG/KG/MIN Norepinephrine Bitartrate 8, 500 mls @ 18.75 mls/hr 03/28/19 22:00 03/28/19 22:07 000 mcg/ Dextrose IV 3 mcg/min TITR CHANTELL 11.25 mls/hr Administration Protocol 5 MCG/MIN Fentanyl 500 mcg/ Dextrose 100 mls @ 5 mls/hr 03/29/19 10:45 03/29/19 07:00 IVPB 25 mcg/hr TITR CHANTELL 5 mls/hr Administration Protocol 25 MCG/HR Insulin Aspart 1 vial 03/22/19 00:00 03/29/19 17:50 Novolog Vial Sliding Scale - SQ Not Given Q6HPO [facility] Protocol Metoprolol Tartrate 12.5 mg 03/26/19 10:00 03/29/19 10:36 Lopressor - PO 12.5 mg BID [facility]ANTELL Administration Midodrine 10 mg 03/23/19 18:00 03/29/19 17:49 Proamatine - NGT 10 mg TID-MID [facility] Administration Morphine Sulfate 2 mg 03/27/19 01:32 03/29/19 16:36 Morphine Sulfate IVPUSH 2 mg Q3H PRN Administration PAIN LEVEL 6-10 Pantoprazole Sodium 40 mg 03/21/19 22:00 03/29/19 10:40 Protonix Iv IVPUSH 40 mg BID CHANTELL Administration Home Medications Medication Instructions Recorded Albuterol 2.5/Ipratropium 0.5 1 amp NEB Q6H PRN #0 amp 07/12/17 [Duoneb -] Allopurinol [Zyloprim -] 100 mg PO DAILY tablet 07/12/17 Atorvastatin Ca [Lipitor] 20 mg PO HS tablet 07/12/17 Collagenase Clostridium Hist. 1 applic TP DAILY tube 09/06/18 [Santyl -] Albuterol Sulfate [Proair Hfa] 2 puff IH Q6H PRN 10/29/18 Escitalopram Oxalate [Lexapro -] 10 mg PO DAILY 10/29/18 Folic Acid/Vit B Complex and C 1 each PO DAILY 10/29/18 [Dialyvite Tablet] Midodrine HCl 10 mg PO MOWEFR 10/29/18 Sevelamer Carbonate [Renvela -] 1,600 mg PO TID 10/29/18 Tamsulosin HCl [Flomax] 0.4 mg PO HS 10/29/18 Insulin Sliding Scale [Novolog 1 vial SQ TIDAC #1 vial 11/17/18 Vial Sliding Scale -] Apixaban [Eliquis -] 5 mg PO BID #30 tablet MDD 2 11/19/18 Collagenase Clostridium Hist. 1 applic TP DAILY #1 tube 01/17/19 [Santyl -] Amoxicillin/Potassium Clav 1 each PO DAILY #7 tablet 02/06/19 [Augmentin 500-125 Tablet] Megestrol Acetate Oral Susp 400 mg PO DAILY #20 cup 02/06/19 [Megace Liquid -] Protein Supplement [Prosource] 275 gm PO TID #60 powder 02/06/19 Lactobacillus Acidophilus [Bacid -] 1 tab PO DAILY #60 tab 02/19/19 Midodrine HCl [Proamatine -] 5 mg PO SuTuThSa #60 tablet 02/19/19 traMADol HCL [Ultram -] 50 mg PO Q6H PRN #60 tablet MDD 4 02/19/19 Microbiology 03/24/19 15:40 Blood - Peripheral Venous Blood Culture - Preliminary NO GROWTH OBTAINED AFTER 96 HOURS, INCUBATION TO CONTINUE FOR 1 DAYS. 03/24/19 16:09 Blood - Peripheral Venous Blood Culture - Preliminary NO GROWTH OBTAINED AFTER 96 HOURS, INCUBATION TO CONTINUE FOR 1 DAYS. 03/11/19 05:30 Blood - Peripheral Venous Blood Culture - Final NO GROWTH AFTER 5 DAYS INCUBATION 03/11/19 10:15 Sputum - Endotrachea Suction/Ventilator Gram Stain - Final 03/11/19 10:15 Sputum - Endotrachea Suction/Ventilator Sputum Culture - Final Mr S Aureus Escherichia Coli Esbl Vehicle Check In Clerk Acinetobacter Baumannii/Haemol Pseudomonas Aeruginosa 03/11/19 06:45 Blood - Peripheral Venous Blood Culture - Final Escherichia Coli Esbl Vehicle Check In Clerk 02/23/19 11:50 Blood - Peripheral Venous Blood Culture - Final NO GROWTH AFTER 5 DAYS INCUBATION 02/23/19 11:50 Blood - Peripheral Venous Blood Culture - Final NO GROWTH AFTER 5 DAYS INCUBATION 02/21/19 13:16 Blood - Peripheral Venous Blood Culture - Final Proteus Mirabilis Prevotella Melaninogenica 02/21/19 16:30 Foot - Left Heel Gram Stain - Final 02/21/19 16:30 Foot - Left Heel Wound Culture - Final Escherichia Coli Esbl Vehicle Check In Clerk Morganella Morganii 02/21/19 15:40 Blood - Peripheral Venous Blood Culture - Final Proteus Mirabilis 02/21/19 14:50 Urine - Urine - Catheterized Urine Culture - Final NO GROWTH OBTAINED ASSESSMENT AND PLAN: Patient is a 73 y/o man with h/o dementia, CVA, DM, COPD, ESRD, gout, HTN, HLP, recent admission 01/31-02/19 during which he was treated for sepsis due to infected b/l feet ulcers/gangrene. He was sent from [place] due to poor po intake, and non healing wounds # Acute hypoxic resp failure/aspiration s/p extubated and re-intubation , further care per ICU ,HOB elevation. # Septic shock: cont hydrocortisone at 50 BID ,On Leveophed now # Infected sacral decub and scrotal ulcer on IV antibiotic continue cont meropenem # Proteus bacteremia ,ESBL producing E coli bacteremia cont meropenem # ESRD on HD per schedule , on Midodrine , had bedside HD, tolerated, nephro # DM SSI # Infected gangrenous of LEs with open wounds cont meropenem #A fib with RVR on eliquis #thrombocytopenia monitor # hx of seizure keppra stopped on 03/13 , if seizures recur then can resume #anemia monitor Poor prognosis.
[2019-03-29] MEDS: APIXABAN 2.5 MG TABLET PO SCH (21:31)
[2019-03-29] MEDS: ATORVASTATIN CA 20 MG TABLET (FP) NGT SCH (21:32)
[2019-03-30] MEDS: INSULIN SLIDING SCALE (NOVOLOG) 1 VIAL SQ SCH ×5 (00:58→23:11)
[2019-03-30] MEDS: MORPHINE SULFATE 2 MG/ML VIAL IVPUSH PRN ×2 (04:30→15:30)
[2019-03-30 06:44] LABS: HEMATOCRIT 25.2 % (35.4-49); HEMOGLOBIN 7.9 GM/dL (11.7-16.9); MCH 29.6 pg (25.7-33.7); MCHC 31.5 g/dl (32.0-35.9); MEAN CELL VOLUME 94.1 fl (80-96); MEAN PLT VOLUME 11.4 fl (7.5-11.1); PLATELET COUNT 88 K/MM3 (134-434); RBC 2.68 M/mm3 (4.00-5.60); RDW 19.6 % (11.9-15.9); WHITE BLOOD COUNT 14.6 K/mm3 (4.0-10.0)
[2019-03-30] MEDS: AMINO ACIDS/PROTEIN HYDROLYS 30 ML LIQUID.PKT NGT SCH ×3 (06:53→22:09)
[2019-03-30 07:39] LABS: ALBUMIN 1.3 g/dl (3.4-5.0); BILIRUBIN,TOTAL 0.9 mg/dL (0.2-1); BLOOD UREA NITROGEN 49.7 mg/dL (7-18); CREATININE 1.7 mg/dL (0.55-1.3); MAGNESIUM 1.9 mg/dL (1.8-2.4); PHOSPHOROUS 5.1 mg/dL (2.5-4.9); POTASSIUM 4.1 mmol/L (3.5-5.1); TOT PROT 4.5 g/dl (6.4-8.2)
[2019-03-30 08:08] LABS: CALCIUM 6.9 mg/dL (8.5-10.1)
--- NOTE | 2019-03-30 08:21 | PN ---
Progress Note (short form) - Note Progress Note: RENAL intubated sedated on pressors Last Vital Signs Temp Pulse Resp BP Pulse Ox 98.0 F 62 21 H 132/71 100 03/29/19 18:00 03/30/19 06:00 03/30/19 06:30 03/30/19 06:00 03/29/19 21:36 lungs bilat air entry cvs s1s2 rr +mary abd soft ext upper extremity edema, lower extremity dressing neuro sedated CBC, BMP 03/30/19 06:30 03/30/19 06:30 Current Medications Generic Name Dose Route Start Last Admin Trade Name Jaq PRN Reason Stop Dose Admin Amino Acids 30 ml 03/23/19 22:00 03/30/19 06:53 Prosource No Carb Liquid Pkt NGT 30 ml TID CHANTELL Administration Apixaban 2.5 mg 03/29/19 22:00 03/29/19 21:31 Eliquis - PO 2.5 mg BID CHANTELL Administration Atorvastatin Calcium 20 mg 03/23/19 22:00 03/29/19 21:32 Lipitor - NGT 20 mg HS CHANTELL Administration Collagenase 1 applic 03/22/19 10:00 03/29/19 11:01 Santyl - TP 1 applic DAILY CHANTELL Administration Protocol Escitalopram Oxalate 10 mg 03/24/19 10:00 03/29/19 10:36 Lexapro - NGT 10 mg DAILY CHANTELL Administration Hydrocortisone 50 mg 03/25/19 10:00 03/29/19 21:31 Cortef - PO 50 mg BID CHANTELL Administration Meropenem 500 mg/ Dextrose 100 mls @ 200 mls/hr 03/22/19 10:00 03/29/19 12:00 IVPB 200 mls/hr DAILY [facility]TELL Administration Propofol 1,000,000 mcg in 100 mls @ 2.851 mls/hr 03/27/19 03:45 03/29/19 13: 37 Diprivan - IVPB 5 mcg/kg/min TITR CHANTELL 2.851 mls/hr Administration Protocol 5 MCG/KG/MIN Norepinephrine Bitartrate 8, 500 mls @ 18.75 mls/hr 03/28/19 22:00 03/29/19 19:01 000 mcg/ Dextrose IV 0 mcg/min TITR CHANTELL 0 mls/hr Titration Protocol 5 MCG/MIN Fentanyl 500 mcg/ Dextrose 100 mls @ 5 mls/hr 03/29/19 10:45 03/29/19 07:00 IVPB 25 mcg/hr TITR CHANTELL 5 mls/hr Administration Protocol 25 MCG/HR Insulin Aspart 1 vial 03/22/19 00:00 03/30/19 06:53 Novolog Vial Sliding Scale - SQ Not Given Q6HPO [facility] Protocol Metoprolol Tartrate 12.5 mg 03/26/19 10:00 03/29/19 21:31 Lopressor - PO Not Given BID [facility] Midodrine 10 mg 03/23/19 18:00 03/29/19 17:49 Proamatine - NGT 10 mg TID-MID CHANTELL Administration Morphine Sulfate 2 mg 03/27/19 01:32 03/30/19 04:30 Morphine Sulfate IVPUSH 2 mg Q3H PRN Administration PAIN LEVEL 6-10 Pantoprazole Sodium 40 mg 03/21/19 22:00 03/29/19 21:31 Protonix Iv IVPUSH 40 mg BID [facility] Administration Impression 1. ESRD- has low creat due to minimal muscle mass 2. gangrene 3. DM 4. hyperlipidemia 5. HTN 6. gout 7. proteinuria 8. hypotension 9. sepsis 10. resp failure 11. GI bleed Plan - will write hd orders for today - monitor bp - cont feeds - 3 k bath on HD - cont wound care - prognosis is poor -amputation was recommended before MV
[2019-03-30] MEDS ORDERED: SODIUM CHLORIDE 250 ML IV PRN (08:28)
[2019-03-30] MEDS ORDERED: EPOETIN ALFA 2,000 UNIT/1 ML VIAL SQ ONE (09:00)
--- NOTE | 2019-03-30 09:40 | PN ---
Teaching Attending Note Name of Resident: Fili Overton ATTENDING PHYSICIAN STATEMENT I saw and evaluated the patient. I reviewed the resident's note and discussed the case with the resident. I agree with the resident's findings and plan as documented. SUBJECTIVE: Pt seen and examined in the ICU. Remains intubated, sedated. Off pressors, oxygenating better. Tolerating feeds. OBJECTIVE: Vital Signs Period Temp Pulse Resp BP Sys/Zamorano Pulse Ox Last 24 Hr 97.9 F-98.8 F 57-78 12-21 98-132/50-84 100-100 Intake & Output 03/27/19 03/28/19 03/29/19 03/30/19 23:59 23:59 23:59 23:59 Intake Total 336 555 561 265 Output Total 0 0 Balance 336 555 561 265 Weight 87.453 kg 87.685 kg 87.498 kg 89.902 kg Gen: intubated, sedated Heart: RRR Lung: scattered rhonchi Abd: soft, nontender Ext: + edema, feet wrapped CBC, BMP 03/30/19 06:30 03/30/19 06:30 Active Medications Amino Acids (Prosource No Carb Liquid Pkt) 30 ml NGT TID [facility] Last Admin: 03/30/19 06:53 Dose: 30 ml Apixaban (Eliquis -) 2.5 mg PO BID [facility] Last Admin: 03/29/19 21:31 Dose: 2.5 mg Atorvastatin Calcium (Lipitor -) 20 mg NGT HS CHANTELL Last Admin: 03/29/19 21:32 Dose: 20 mg Collagenase (Santyl -) 1 applic TP DAILY [facility]; Protocol Last Admin: 03/29/19 11:01 Dose: 1 applic Escitalopram Oxalate (Lexapro -) 10 mg NGT DAILY [facility] Last Admin: 03/29/19 10:36 Dose: 10 mg Hydrocortisone (Cortef -) 50 mg PO BID [facility] Last Admin: 03/29/19 21:31 Dose: 50 mg Meropenem 500 mg/ Dextrose 100 mls @ 200 mls/hr IVPB DAILY [facility] Last Admin: 03/29/19 12:00 Dose: 200 mls/hr Propofol (Diprivan -) 1,000,000 mcg in 100 mls @ 2.851 mls/hr IVPB TITR [facility]ANTELL; Protocol Last Admin: 03/29/19 13:37 Dose: 5 mcg/kg/min, 2.851 mls/hr Norepinephrine Bitartrate 8, (000 mcg/ Dextrose) 500 mls @ 18.75 mls/hr IV TITR [facility]; Protocol Last Titration: 03/29/19 19:01 Dose: 0 mcg/min, 0 mls/hr Fentanyl 500 mcg/ Dextrose 100 mls @ 5 mls/hr IVPB TITR [facility]; Protocol Last Admin: 03/29/19 07:00 Dose: 25 mcg/hr, 5 mls/hr Sodium Chloride (Normal Saline -) 250 mls @ 3,000 mls/hr IV PRN PRN PRN Reason: Hypotension during Dialysis Stop: 03/30/19 15:00 Insulin Aspart (Novolog Vial Sliding Scale -) 1 vial SQ Q6HPO [facility]; Protocol Last Admin: 03/30/19 06:53 Dose: Not Given Metoprolol Tartrate (Lopressor -) 12.5 mg PO BID [facility] Last Admin: 03/29/19 21:31 Dose: Not Given Midodrine (Proamatine -) 10 mg NGT TID-MID [facility] Last Admin: 03/29/19 17:49 Dose: 10 mg Morphine Sulfate (Morphine Sulfate) 2 mg IVPUSH Q3H PRN PRN Reason: PAIN LEVEL 6-10 Last Admin: 03/30/19 04:30 Dose: 2 mg Pantoprazole Sodium (Protonix Iv) 40 mg IVPUSH BID [facility] Last Admin: 03/29/19 21:31 Dose: 40 mg ASSESSMENT AND PLAN: Acute Respiratory Failure Aspiration Pneumonitis with ARDS physiology Recent ESBL E coli Bacteremia Bilateral Feet Gangrene Infected Decubitus Ulcers Septic Shock ESRD on HD DM HTN Hyperlipidemia h/o CVA - continue antibiotics per ID - continue midodrine - monitoring off pressors, maintain MAP >65 - monitor H/H - local wound care - HD per renal - enteral feeds - spontaneous breathing trials as tolerated - DVT prophylaxis - continue efforts to discuss medical condition and prognosis with next of kin - given overall poor condition, current medical condition, and overall poor rn cardiovascular outcome, recommend palliative/comfort care - continue ICU monitoring critical care time spent in reviewing chart, evaluating patient and formulating plan 35 min
--- NOTE | 2019-03-30 09:47 | PN ---
Progress Note, Physician History of Present Illness: INTUBATED IN ICU LETHARGIC RECEIVING HEMODIALYSIS TEMPS REMAIN DOWN AFEBRILE WBC IMPROVED - Current Medication List Current Medications: Active Medications Amino Acids (Prosource No Carb Liquid Pkt) [address] [facility] Last Admin: 03/30/19 06:53 Dose: 30 ml Apixaban (Eliquis -) 2.[address] [facility] Last Admin: 03/29/19 21:31 Dose: 2.5 mg Atorvastatin Calcium (Lipitor -) [address] [facility] Last Admin: 03/29/19 21:32 Dose: 20 mg Collagenase (Santyl -) [address] [facility]; Protocol Last Admin: 03/29/19 11:01 Dose: 1 applic Escitalopram Oxalate (Lexapro -) [address] [facility] Last Admin: 03/29/19 10:36 Dose: 10 mg Hydrocortisone (Cortef -) [address] [facility] Last Admin: 03/29/19 21:31 Dose: 50 mg Meropenem 500 mg/ Dextrose 100 mls @ 200 mls/hr IVPB DAILY [facility] Last Admin: 03/29/19 12:00 Dose: 200 mls/hr Propofol (Diprivan -) 1,000,000 mcg in 100 mls @ 2.851 mls/hr IVPB TITR [facility]; Protocol Last Admin: 03/29/19 13:37 Dose: 5 mcg/kg/min, 2.851 mls/hr Norepinephrine Bitartrate 8, (000 mcg/ Dextrose) 500 mls @ 18.75 mls/hr IV TITR [facility]; Protocol Last Titration: 03/29/19 19:01 Dose: 0 mcg/min, 0 mls/hr Fentanyl 500 mcg/ Dextrose 100 mls @ 5 mls/hr IVPB TITR [facility]; Protocol Last Admin: 03/29/19 07:00 Dose: 25 mcg/hr, 5 mls/hr Sodium Chloride (Normal Saline -) 250 mls @ 3,000 mls/hr IV PRN PRN PRN Reason: Hypotension during Dialysis Stop: 03/30/19 15:00 Insulin Aspart (Novolog Vial Sliding Scale -) [address] [facility]; Protocol Last Admin: 03/30/19 06:53 Dose: Not Given Metoprolol Tartrate (Lopressor -) 12.[address] [facility] Last Admin: 03/29/19 21:31 Dose: Not Given Midodrine (Proamatine -) [address] NGT TID-MID [facility] Last Admin: 03/29/19 17:49 Dose: 10 mg Morphine Sulfate (Morphine Sulfate) 2 mg IVPUSH Q3H PRN PRN Reason: PAIN LEVEL 6-10 Last Admin: 03/30/19 04:30 Dose: 2 mg Pantoprazole Sodium (Protonix Iv) [address] [facility] Last Admin: 03/29/19 21:31 Dose: 40 mg - Objective Vital Signs: Vital Signs Temperature 98.8 F 03/30/19 08:40 Pulse Rate 78 03/30/19 09:15 Respiratory Rate 12 03/30/19 09:15 Blood Pressure 125/84 03/30/19 09:15 O2 Sat by Pulse Oximetry (%) 100 03/29/19 21:36 Constitutional: Yes: No Distress Cardiovascular: Yes: Regular Rate and Rhythm, S1, S2 Respiratory: Yes: Mechanically Ventilated Gastrointestinal: Yes: Normal Bowel Sounds, Soft. No: Tenderness Extremities: Yes: Other (NECROTIC, MALODOROUS FOOT ULCERS) Labs: CBC, BMP 03/30/19 06:30 03/30/19 06:30 INR, PTT INR 1.22 (0.83-1.09) H 03/27/19 15:30 Fibrinogen 459.0 mg/dL (238-498) 03/27/19 15:30 Assessment/Plan RESP FAILURE PROBABLE ASP PNEUMONIA ESRD ESBL BACTEREMIA/ SEPSIS +BC 03/11 CONTINUE MEROPENEM PROGNOSIS POOR
--- NOTE | 2019-03-30 09:52 | PN ---
Physical Exam: SUBJECTIVE: Yesterday afternoon levophed was titrated off and patient has been maintaining MAPs currently. No other events noted. Pt currently sedated with Fentanyl (25) and Propofol (5). Pt had one BM overnight noted to be soft without melena and without radha blood. Pt remains on trickle feeds OBJECTIVE: Vital Signs Period Temp Pulse Resp BP Sys/Zamorano Pulse Ox Last 24 Hr 97.9 F-98.8 F 57-78 12-21 98-132/50-84 100-100 GENERAL: Intubated, minimally sedated, awake to palpation. HEENT: ETT in place with bite block, NG noted NECK: L IJ site closed, L subclavian line C/D/I LUNGS: Scattered rhonchi bilaterally, no wheezes. AC mode of vent without changes HEART: RRR, S1, S2 without murmur ABDOMEN: Soft, NT/ND, hypoactive bowel sounds, no guarding, abdominal wall edema + SACRUM: Not examined today EXTREMITIES: 2+ upper extremity edema, lower extremity bandages recently changed ; wounds not examined today SKIN: Warm, dry, no rashes Laboratory Results 03/29/19 03/29/19 03/29/19 12:11 13:41 17:32 WBC RBC Hgb Hct MCV MCH MCHC RDW Plt Count MPV Puncture Site Right radial ABG pH 7.42 ABG pCO2 at Pt Temp 41.8 ABG pO2 at Pt Temp 113 H ABG HCO3 26.9 ABG O2 Sat (Measured) 98.6 H ABG O2 Content 12.4 L ABG Base Excess 2.7 H Johan Test Positive Oxygen Flow Rate 50 Sodium Potassium Chloride Carbon Dioxide Anion Gap BUN Creatinine Est GFR (CKD-EPI)AfAm Est GFR (CKD-EPI)NonAf POC Glucometer 133 144 Random Glucose Calcium Phosphorus Magnesium Total Bilirubin AST ALT Alkaline Phosphatase Total Protein Albumin 03/30/19 03/30/19 03/30/19 00:53 06:23 06:30 WBC 14.6 H RBC 2.68 L Hgb 7.9 L Hct 25.2 L MCV 94.1 MCH 29.6 MCHC 31.5 L RDW 19.6 H Plt Count 88 L MPV 11.4 H Puncture Site ABG pH ABG pCO2 at Pt Temp ABG pO2 at Pt Temp ABG HCO3 ABG O2 Sat (Measured) ABG O2 Content ABG Base Excess Johan Test Oxygen Flow Rate Sodium Potassium Chloride Carbon Dioxide Anion Gap BUN Creatinine Est GFR (CKD-EPI)AfAm Est GFR (CKD-EPI)NonAf POC Glucometer 130 115 Random Glucose Calcium Phosphorus Magnesium Total Bilirubin AST ALT Alkaline Phosphatase Total Protein Albumin 03/30/19 06:30 WBC RBC Hgb Hct MCV MCH MCHC RDW Plt Count MPV Puncture Site ABG pH ABG pCO2 at Pt Temp ABG pO2 at Pt Temp ABG HCO3 ABG O2 Sat (Measured) ABG O2 Content ABG Base Excess Johan Test Oxygen Flow Rate Sodium 143 Potassium 4.1 Chloride 106 Carbon Dioxide 28 Anion Gap 9 BUN 49.7 H Creatinine 1.7 H Est GFR (CKD-EPI)AfAm 45.04 Est GFR (CKD-EPI)NonAf 38.86 POC Glucometer Random Glucose 139 H Calcium 6.9 L* Phosphorus 5.1 H Magnesium 1.9 Total Bilirubin 0.9 AST 33 ALT 18 Alkaline Phosphatase 728 H Total Protein 4.5 L Albumin 1.3 L Active Medications Generic Name Dose Route Start Last Admin Trade Name Freq PRN Reason Stop Dose Admin Amino Acids 30 ml 03/23/19 22:00 03/30/19 06:53 Prosource No Carb Liquid Pkt NGT 30 ml TID CHANTELL Administration Apixaban 2.5 mg 03/29/19 22:00 03/29/19 21:31 Eliquis - PO 2.5 mg BID [facility] Administration Atorvastatin Calcium 20 mg 03/23/19 22:00 03/29/19 21:32 Lipitor - NGT 20 mg HS CHANTELL Administration Collagenase 1 applic 03/22/19 10:00 03/29/19 11:01 Santyl - TP 1 applic DAILY [facility]TE[facility] Administration Protocol Escitalopram Oxalate 10 mg 03/24/19 10:00 03/29/19 10:36 Lexapro - NGT 10 mg DAILY [facility]TELL Administration Hydrocortisone 50 mg 03/25/19 10:00 03/29/19 21:31 Cortef - PO 50 mg BID CHANTELL Administration Meropenem 500 mg/ Dextrose 100 mls @ 200 mls/hr 03/22/19 10:00 03/29/19 12:00 IVPB 200 mls/hr DAILY [facility] Administration Propofol 1,000,000 mcg in 100 mls @ 2.851 mls/hr 03/27/19 03:45 03/29/19 13: 37 Diprivan - IVPB 5 mcg/kg/min TITR CHANTELL 2.851 mls/hr Administration Protocol 5 MCG/KG/MIN Norepinephrine Bitartrate 8, 500 mls @ 18.75 mls/hr 03/28/19 22:00 03/29/19 19:01 000 mcg/ Dextrose IV 0 mcg/min TITR CHANTELL 0 mls/hr Titration Protocol 5 MCG/MIN Fentanyl 500 mcg/ Dextrose 100 mls @ 5 mls/hr 03/29/19 10:45 03/29/19 07:00 IVPB 25 mcg/hr TITR CHANTELL 5 mls/hr Administration Protocol 25 MCG/HR Sodium Chloride 250 mls @ 3,000 mls/hr 03/30/19 08:28 Normal Saline - IV 03/30/19 15:00 PRN PRN Hypotension during Dialysis Insulin Aspart 1 vial 03/22/19 00:00 03/30/19 06:53 Novolog Vial Sliding Scale - SQ Not Given Q6HPO [facility] Protocol Metoprolol Tartrate 12.5 mg 03/26/19 10:00 03/29/19 21:31 Lopressor - PO Not Given BID [facility] Midodrine 10 mg 03/23/19 18:00 03/29/19 17:49 Proamatine - NGT 10 mg TID-MID [facility] Administration Morphine Sulfate 2 mg 03/27/19 01:32 03/30/19 04:30 Morphine Sulfate IVPUSH 2 mg Q3H PRN Administration PAIN LEVEL 6-10 Pantoprazole Sodium 40 mg 03/21/19 22:00 03/29/19 21:31 Protonix Iv IVPUSH 40 mg BID [facility] Administration ASSESSMENT/PLAN: Acute respiratory failure Aspiration Pneumonitis B/l lower extremity gangrene ESRD Hypokalemia DM HLd HTN --Continue to wean O2 requirements --Continue with AC mode of vent and aspiration precautions in place --After dialysis will have sedation vacation and possible wean trials --Continue Santyl and Meropenem for infection control --Hemodynamics stable while on Midodrine; off of Levophed --Morphine 2q4h PRN for pain --HD for today; will maintain sedation during dialysis for comfort and trial afterwards FEN: Fluids: Minimize unless needed for hemodynamics Electrolyte abnormalities: Dialysis today; replete PRN Nutrition: Can check residuals and increase feeds to 20cc/hr with 50cc flush if minimal residual PPX: GI - Continue Protonix Dispo: ICU monitoring; however continue to discuss GOC with next of kin given severely poor prognosis Case discussed with Dr. Jan MANZANO PGY-3 Visit type - Emergency Visit Emergency Visit: Yes ED Registration Date: 02/21/19 Care time: The patient presented to the Emergency Department on the above date and was hospitalized for further evaluation of their emergent condition. - New Patient This patient is new to me today: No - Critical Care Critical Care patient: Yes Total Critical Care Time (in minutes): 35 Critical Care Statement: The care of this patient involved high complexity decision making to prevent further life threatening deterioration of the patient 's condition and/or to evaluate & treat vital organ system(s) failure or risk of failure.
[2019-03-30] MEDS ORDERED: PT OWN MED DRAWER 7, Y5N ONE ×2 (12:00→21:31)
[2019-03-30] MEDS ORDERED: fentaNYL CITRATE 250 MCG/5 ML VIAL ONE (12:01)
[2019-03-30] MEDS: MEROPENEM 500 MG in DEXTROSE 5%-WATER 100 ML IVPB SCH (12:06)
[2019-03-30] MEDS: APIXABAN 2.5 MG TABLET PO SCH ×2 (12:09→22:09)
[2019-03-30] MEDS: MIDODRINE HCL 5 MG TABLET NGT SCH ×3 (12:09→17:30)
[2019-03-30] MEDS: ESCITALOPRAM OXALATE 10 MG TABLET (FP) NGT SCH (12:09)
[2019-03-30] MEDS: METOPROLOL TARTRATE 25 MG TABLET (FP) PO SCH ×3 (12:09→22:15)
[2019-03-30] MEDS: MULTIVIT-MINERALS ORAL LIQUID NGT SCH (12:10)
[2019-03-30] MEDS: HYDROCORTISONE 20 MG TABLET PO SCH ×2 (12:10→22:09)
[2019-03-30 12:20] LABS: HEMATOCRIT 27.9 % (35.4-49); HEMOGLOBIN 8.8 GM/dL (11.7-16.9); MCH 29.7 pg (25.7-33.7); MCHC 31.7 g/dl (32.0-35.9); MEAN CELL VOLUME 93.5 fl (80-96); MEAN PLT VOLUME 10.7 fl (7.5-11.1); RBC 2.98 M/mm3 (4.00-5.60); WHITE BLOOD COUNT 18.7 K/mm3 (4.0-10.0)
[2019-03-30] MEDS: PANTOPRAZOLE SODIUM 40 MG VIAL IVPUSH SCH ×2 (12:30→22:09)
[2019-03-30 12:36] LABS: PLATELET COUNT 88 K/MM3 (134-434)
[2019-03-30] MEDS: PROPOFOL 1,000,000 MCG/100 ML VIAL IVPB SCH (15:26)
[2019-03-30] MEDS: COLLAGENASE CLOSTRIDIUM HIST. 30 GRAMS TUBE TP SCH (15:26)
[2019-03-30] MEDS: FENTANYL INJECTION 500 MCG in DEXTROSE 5%-WATER - 90 ML IVPB SCH (15:27)
--- NOTE | 2019-03-30 18:03 | PN ---
Progress Note (short form) - Note Progress Note: Patient is in ICU: levophed was titrated off and patient has been maintaining MAPs.Comfortable with no acute distress. Vital Signs Temperature 97.5 F L 03/30/19 12:00 Pulse Rate 66 03/30/19 16:00 Respiratory Rate 18 03/30/19 17:15 Blood Pressure 129/63 03/30/19 16:00 O2 Sat by Pulse Oximetry (%) 100 03/30/19 09:00 GENERAL: The patient is intubated , sedated. HEAD: Normal with no signs of trauma. EYES: extraocular movements intact, sclera anicteric, ENT: intubated and sedated . NECK: Trachea midline, positive for ET-tube LUNGS: intubated , sedated . HEART: RRR , S1, S2 without murmur, rub or gallop. ABDOMEN: Soft, NT, ND, BS positive, no guarding, no rebound, no hepatosplenomegaly, no masses. EXTREMITIES: gangrenous lower extremities SKIN: Warm. CBCD WBC 18.7 K/mm3 (4.0-10.0) H 03/30/19 11:45 RBC 2.98 M/mm3 (4.00-5.60) L 03/30/19 11:45 Hgb 8.8 GM/dL (11.7-16.9) L 03/30/19 11:45 Hct 27.9 % (35.4-49) L 03/30/19 11:45 MCV 93.5 fl (80-96) 03/30/19 11:45 MCHC 31.7 g/dl (32.0-35.9) L 03/30/19 11:45 RDW 20.0 % (11.9-15.9) H 03/30/19 11:45 Plt Count 88 K/MM3 (134-434) L 03/30/19 11:45 MPV 10.7 fl (7.5-11.1) 03/30/19 11:45 CMP Sodium 143 mmol/L (136-145) 03/30/19 06:30 Potassium 4.1 mmol/L (3.5-5.1) 03/30/19 06:30 Chloride 106 mmol/L (98-107) 03/30/19 06:30 Carbon Dioxide 28 mmol/L (21-32) 03/30/19 06:30 Anion Gap 9 MMOL/L (8-16) 03/30/19 06:30 BUN 49.7 mg/dL (7-18) H 03/30/19 06:30 Creatinine 1.7 mg/dL (0.55-1.3) H 03/30/19 06:30 Random Glucose 139 mg/dL (74-106) H 03/30/19 06:30 Calcium 6.9 mg/dL (8.5-10.1) L* 03/30/19 06:30 Total Bilirubin 0.9 mg/dL (0.2-1) 03/30/19 06:30 AST 33 U/L (15-37) 03/30/19 06:30 ALT 18 U/L (13-61) 03/30/19 06:30 Alkaline Phosphatase 728 U/L (45-117) H 03/30/19 06:30 Total Protein 4.5 g/dl (6.4-8.2) L 03/30/19 06:30 Albumin 1.3 g/dl (3.4-5.0) L 03/30/19 06:30 CARDIAC ENZYMES Troponin I < 0.02 ng/ml (0.00-0.05) 02/21/19 15:10 Current Medications Generic Name Dose Route Start Last Admin Trade Name Kassandra PRN Reason Stop Dose Admin Amino Acids 30 ml 03/23/19 22:00 03/30/19 15:30 Prosource No Carb Liquid Pkt NGT 30 ml TID CHANTELL Administration Apixaban 2.5 mg 03/29/19 22:00 03/30/19 12:09 Eliquis - PO 2.5 mg BID CHANTELL Administration Atorvastatin Calcium 20 mg 03/23/19 22:00 03/29/19 21:32 Lipitor - NGT 20 mg HS CHANTELL Administration Collagenase 1 applic 03/22/19 10:00 03/30/19 15:26 Santyl - TP 1 applic DAILY CHANTELL Administration Protocol Escitalopram Oxalate 10 mg 03/24/19 10:00 03/30/19 12:09 Lexapro - NGT 10 mg DAILY CHANTELL Administration Hydrocortisone 50 mg 03/25/19 10:00 03/30/19 12:10 Cortef - PO 50 mg BID CHANTELL Administration Meropenem 500 mg/ Dextrose 100 mls @ 200 mls/hr 03/22/19 10:00 03/30/19 12:06 IVPB 200 mls/hr DAILY CHANTELL Administration Propofol 1,000,000 mcg in 100 mls @ 2.851 mls/hr 03/27/19 03:45 03/30/19 15: 26 Diprivan - IVPB 5 mcg/kg/min TITR CHANTELL 2.851 mls/hr Administration Protocol 5 MCG/KG/MIN Norepinephrine Bitartrate 8, 500 mls @ 18.75 mls/hr 03/28/19 22:00 03/29/19 19:01 000 mcg/ Dextrose IV 0 mcg/min TITR CHANTELL 0 mls/hr Titration Protocol 5 MCG/MIN Fentanyl 500 mcg/ Dextrose 100 mls @ 5 mls/hr 03/29/19 10:45 03/30/19 15:27 IVPB 50 mcg/hr TITR CHANTELL 10 mls/hr Administration Protocol 25 MCG/HR Insulin Aspart 1 vial 03/22/19 00:00 03/30/19 12:30 Novolog Vial Sliding Scale - SQ Not Given Q6HPO [facility] Protocol Metoprolol Tartrate 12.5 mg 03/26/19 10:00 03/30/19 12:09 Lopressor - PO 12.5 mg BID CHANTELL Administration Midodrine 10 mg 03/23/19 18:00 03/30/19 15:29 Proamatine - NGT 10 mg TID-MID CHANTELL Administration Morphine Sulfate 2 mg 03/27/19 01:32 03/30/19 15:30 Morphine Sulfate IVPUSH 2 mg Q3H PRN Administration PAIN LEVEL 6-10 Pantoprazole Sodium 40 mg 03/21/19 22:00 03/30/19 12:30 Protonix Iv IVPUSH 40 mg BID CHANTELL Administration Home Medications Medication Instructions Recorded Albuterol 2.5/Ipratropium 0.5 1 amp NEB Q6H PRN #0 amp 07/12/17 [Duoneb -] Allopurinol [Zyloprim -] 100 mg PO DAILY tablet 07/12/17 Atorvastatin Ca [Lipitor] 20 mg PO HS tablet 07/12/17 Collagenase Clostridium Hist. 1 applic TP DAILY tube 09/06/18 [Santyl -] Albuterol Sulfate [Proair Hfa] 2 puff IH Q6H PRN 10/29/18 Escitalopram Oxalate [Lexapro -] 10 mg PO DAILY 10/29/18 Folic Acid/Vit B Complex and C 1 each PO DAILY 10/29/18 [Dialyvite Tablet] Midodrine HCl 10 mg PO MOWEFR 10/29/18 Sevelamer Carbonate [Renvela -] 1,600 mg PO TID 10/29/18 Tamsulosin HCl [Flomax] 0.4 mg PO HS 10/29/18 Insulin Sliding Scale [Novolog 1 vial SQ TIDAC #1 vial 11/17/18 Vial Sliding Scale -] Apixaban [Eliquis -] 5 mg PO BID #30 tablet MDD 2 11/19/18 Collagenase Clostridium Hist. 1 applic TP DAILY #1 tube 01/17/19 [Santyl -] Amoxicillin/Potassium Clav 1 each PO DAILY #7 tablet 02/06/19 [Augmentin 500-125 Tablet] Megestrol Acetate Oral Susp 400 mg PO DAILY #20 cup 02/06/19 [Megace Liquid -] Protein Supplement [Prosource] 275 gm PO TID #60 powder 02/06/19 Lactobacillus Acidophilus [Bacid -] 1 tab PO DAILY #60 tab 02/19/19 Midodrine HCl [Proamatine -] 5 mg PO SuTuThSa #60 tablet 02/19/19 traMADol HCL [Ultram -] 50 mg PO Q6H PRN #60 tablet MDD 4 02/19/19 A/P; Patient is a 73 y/o man with h/o dementia, CVA, DM, COPD, ESRD, gout, HTN, HLP, recent admission 01/31-02/19 during which he was treated for sepsis due to infected b/l feet ulcers/gangrene. He was sent from [place] due to poor po intake, and non healing wounds # Acute hypoxic resp failure/aspiration s/p extubated and re-intubation , further care per ICU ,HOB elevation. # s/p Septic shock: cont hydrocortisone at 50 BID ,off Leveophed now # Infected sacral decub and scrotal ulcer on IV antibiotic continue cont meropenem # Proteus bacteremia ,ESBL producing E coli bacteremia cont meropenem # ESRD on HD per schedule , on Midodrine , had bedside HD, tolerated, nephro # DM SSI # Infected gangrenous of LEs with open wounds cont meropenem #A fib with RVR on eliquis #thrombocytopenia monitor # hx of seizure keppra stopped on 03/13 , if seizures recur then can resume #anemia monitor Poor prognosis. Visit type - Emergency Visit Emergency Visit: Yes ED Registration Date: 02/21/19 Care time: The patient presented to the Emergency Department on the above date and was hospitalized for further evaluation of their emergent condition. - New Patient This patient is new to me today: No - Critical Care Critical Care patient: No - Discharge Referral Referred to [facility] No
[2019-03-30] MEDS: NOREPINEPHRINE BITARTRATE 8,000 MCG in DEXTROSE 5%-WATER - 492 ML IV SCH (22:08)
[2019-03-30] MEDS: ATORVASTATIN CA 20 MG TABLET (FP) NGT SCH (22:09)
[2019-03-31] MEDS ORDERED: fentaNYL CITRATE 250 MCG/5 ML VIAL ONE ×2 (02:03→14:24)
[2019-03-31] MEDS: FENTANYL INJECTION 500 MCG in DEXTROSE 5%-WATER - 90 ML IVPB SCH ×3 (02:06→15:23)
[2019-03-31 06:16] LABS: ALBUMIN 1.2 g/dl (3.4-5.0); BILIRUBIN,TOTAL 0.7 mg/dL (0.2-1); BLOOD UREA NITROGEN 36.5 mg/dL (7-18); CREATININE 1.3 mg/dL (0.55-1.3); MAGNESIUM 1.7 mg/dL (1.8-2.4); PHOSPHOROUS 3.9 mg/dL (2.5-4.9); POTASSIUM 3.6 mmol/L (3.5-5.1); TOT PROT 4.1 g/dl (6.4-8.2)
[2019-03-31] MEDS: AMINO ACIDS/PROTEIN HYDROLYS 30 ML LIQUID.PKT NGT SCH ×3 (06:25→21:05)
[2019-03-31] MEDS: PROPOFOL 1,000,000 MCG/100 ML VIAL IVPB SCH (06:25)
[2019-03-31] MEDS: INSULIN SLIDING SCALE (NOVOLOG) 1 VIAL SQ SCH ×3 (06:26→17:33)
[2019-03-31 06:27] LABS: CALCIUM 6.5 mg/dL (8.5-10.1)
[2019-03-31 06:34] LABS: HEMOGLOBIN 7.5 GM/dL (11.7-16.9); WHITE BLOOD COUNT 10.9 K/mm3 (4.0-10.0)
[2019-03-31] MEDS ORDERED: MAGNESIUM SULF 50% (8.12 MEQ/2 ML-1 GM VIAL) IVPB ONE (06:40)
[2019-03-31 07:01] LABS: HEMATOCRIT 23.8 % (35.4-49); MCH 29.6 pg (25.7-33.7); MCHC 31.3 g/dl (32.0-35.9); MEAN CELL VOLUME 94.7 fl (80-96); MEAN PLT VOLUME 12.1 fl (7.5-11.1); PLATELET COUNT 80 K/MM3 (134-434); RBC 2.52 M/mm3 (4.00-5.60); RDW 19.4 % (11.9-15.9)
--- NOTE | 2019-03-31 08:17 | PN ---
Progress Note (short form) - Note Progress Note: RENAL intubated sedated on pressors Last Vital Signs Temp Pulse Resp BP Pulse Ox 97.5 F L 68 19 123/57 L 100 03/31/19 06:00 03/31/19 06:00 03/31/19 06:00 03/31/19 06:00 03/31/19 02:43 lungs bilat air entry cvs s1s2 rr +mary abd soft ext upper extremity edema, lower extremity dressing neuro sedated CBC, BMP 03/31/19 05:20 03/31/19 05:20 Current Medications Generic Name Dose Route Start Last Admin Trade Name Kassandra PRN Reason Stop Dose Admin Amino Acids 30 ml 03/23/19 22:00 03/31/19 06:25 Prosource No Carb Liquid Pkt NGT 30 ml TID CHANTELL Administration Apixaban 2.5 mg 03/29/19 22:00 03/30/19 22:09 Eliquis - PO 2.5 mg BID CHANTELL Administration Atorvastatin Calcium 20 mg 03/23/19 22:00 03/30/19 22:09 Lipitor - NGT 20 mg HS CHANTELL Administration Collagenase 1 applic 03/22/19 10:00 03/30/19 15:26 Santyl - TP 1 applic DAILY CHANTELL Administration Protocol Escitalopram Oxalate 10 mg 03/24/19 10:00 03/30/19 12:09 Lexapro - NGT 10 mg DAILY CHANTELL Administration Hydrocortisone 50 mg 03/25/19 10:00 03/30/19 22:09 Cortef - PO 50 mg BID CHANTELL Administration Meropenem 500 mg/ Dextrose 100 mls @ 200 mls/hr 03/22/19 10:00 03/30/19 12:06 IVPB 200 mls/hr DAILY CHANTELL Administration Propofol 1,000,000 mcg in 100 mls @ 2.851 mls/hr 03/27/19 03:45 03/31/19 06: 25 Diprivan - IVPB 10 mcg/kg/min TITR CHANTELL 5.702 mls/hr Administration Protocol 5 MCG/KG/MIN Norepinephrine Bitartrate 8, 500 mls @ 18.75 mls/hr 03/28/19 22:00 03/30/19 22:08 000 mcg/ Dextrose IV Not Given TITR CHANTELL Protocol 5 MCG/MIN Fentanyl 500 mcg/ Dextrose 100 mls @ 5 mls/hr 03/29/19 10:45 03/31/19 04:45 IVPB 50 mcg/hr TITR CHANTELL 10 mls/hr Titration Protocol 25 MCG/HR Insulin Aspart 1 vial 03/22/19 00:00 03/31/19 06:26 Novolog Vial Sliding Scale - SQ Not Given Q6HPO [facility] Protocol Metoprolol Tartrate 12.5 mg 03/26/19 10:00 03/30/19 22:15 Lopressor - PO Not Given BID [facility] Midodrine 10 mg 03/23/19 18:00 03/30/19 17:30 Proamatine - NGT 10 mg TID-MID [facility] Administration Morphine Sulfate 2 mg 03/27/19 01:32 03/30/19 15:30 Morphine Sulfate IVPUSH 2 mg Q3H PRN Administration PAIN LEVEL 6-10 Pantoprazole Sodium 40 mg 03/21/19 22:00 03/30/19 22:09 Protonix Iv IVPUSH 40 mg BID CHANTELL Administration Impression 1. ESRD- has low creat due to minimal muscle mass 2. gangrene 3. DM 4. hyperlipidemia 5. HTN 6. gout 7. proteinuria 8. hypotension 9. sepsis 10. resp failure 11. GI bleed 12 hypocalcemia with correctred calcium in normal range Plan - was dialyzed yesterday - monitor bp - cont feeds - 3 k bath on HD - cont wound care - prognosis is poor -amputation was recommended before MV
[2019-03-31] MEDS ORDERED: PT OWN MED DRAWER 7, Y5N ONE ×3 (09:13→14:57)
[2019-03-31] MEDS: MIDODRINE HCL 5 MG TABLET NGT SCH ×3 (09:26→19:11)
[2019-03-31] MEDS: ESCITALOPRAM OXALATE 10 MG TABLET (FP) NGT SCH (09:28)
[2019-03-31] MEDS: APIXABAN 2.5 MG TABLET PO SCH ×2 (09:28→21:04)
[2019-03-31] MEDS: PANTOPRAZOLE SODIUM 40 MG VIAL IVPUSH SCH ×2 (09:31→21:05)
[2019-03-31] MEDS: METOPROLOL TARTRATE 25 MG TABLET (FP) PO SCH ×2 (09:31→22:14)
[2019-03-31] MEDS: HYDROCORTISONE 20 MG TABLET PO SCH ×2 (09:48→21:04)
[2019-03-31] MEDS: MULTIVIT-MINERALS ORAL LIQUID NGT SCH (09:48)
--- NOTE | 2019-03-31 10:28 | PN ---
Teaching Attending Note Name of Resident: Sarina Estrada ATTENDING PHYSICIAN STATEMENT I saw and evaluated the patient. I reviewed the resident's note and discussed the case with the resident. I agree with the resident's findings and plan as documented. SUBJECTIVE: Pt seen and examined in the ICU. Remains intubated, sedated. Remains off pressors, oxygenating well. OBJECTIVE: Vital Signs Period Temp Pulse Resp BP Sys/Zamorano Pulse Ox Last 24 Hr 97.5 F-98.2 F 47-78 12-19 108-129/53-78 100-100 Intake & Output 03/28/19 03/29/19 03/30/19 03/31/19 23:59 23:59 23:59 23:59 Intake Total 555 561 483 805 Output Total 0 Balance 555 561 483 805 Weight 87.685 kg 87.498 kg 89.902 kg 87.906 kg Gen: intubated, sedated Heart: RRR Lung: scattered rhonchi Abd: soft, nontender Ext: + edema CBC, BMP 03/31/19 05:20 03/31/19 05:20 Active Medications Amino Acids (Prosource No Carb Liquid Pkt) 30 ml NGT TID [facility] Last Admin: 03/31/19 06:25 Dose: 30 ml Apixaban (Eliquis -) 2.5 mg PO BID [facility] Last Admin: 03/31/19 09:28 Dose: 2.5 mg Atorvastatin Calcium (Lipitor -) 20 mg NGT HS [facility] Last Admin: 03/30/19 22:09 Dose: 20 mg Collagenase (Santyl -) 1 applic TP DAILY [facility]; Protocol Last Admin: 03/30/19 15:26 Dose: 1 applic Escitalopram Oxalate (Lexapro -) 10 mg NGT DAILY [facility] Last Admin: 03/31/19 09:28 Dose: 10 mg Hydrocortisone (Cortef -) 50 mg PO BID [facility] Last Admin: 03/31/19 09:48 Dose: 50 mg Meropenem 500 mg/ Dextrose 100 mls @ 200 mls/hr IVPB DAILY [facility] Last Admin: 03/30/19 12:06 Dose: 200 mls/hr Propofol (Diprivan -) 1,000,000 mcg in 100 mls @ 2.851 mls/hr IVPB TITR [facility]; Protocol Last Admin: 03/31/19 06:25 Dose: 10 mcg/kg/min, 5.702 mls/hr Norepinephrine Bitartrate 8, (000 mcg/ Dextrose) 500 mls @ 18.75 mls/hr IV TITR [facility]; Protocol Last Admin: 03/30/19 22:08 Dose: Not Given Fentanyl 500 mcg/ Dextrose 100 mls @ 5 mls/hr IVPB TITR [facility]; Protocol Last Titration: 03/31/19 04:45 Dose: 50 mcg/hr, 10 mls/hr Insulin Aspart (Novolog Vial Sliding Scale -) 1 vial SQ Q6HPO [facility]; Protocol Last Admin: 03/31/19 06:26 Dose: Not Given Metoprolol Tartrate (Lopressor -) 12.5 mg PO BID [facility] Last Admin: 03/31/19 09:31 Dose: Not Given Midodrine (Proamatine -) 10 mg NGT TID-MID [facility] Last Admin: 03/31/19 09:26 Dose: 10 mg Morphine Sulfate (Morphine Sulfate) 2 mg IVPUSH Q3H PRN PRN Reason: PAIN LEVEL 6-10 Last Admin: 03/30/19 15:30 Dose: 2 mg Pantoprazole Sodium (Protonix Iv) 40 mg IVPUSH BID [facility] Last Admin: 03/31/19 09:31 Dose: 40 mg ASSESSMENT AND PLAN: Acute Respiratory Failure Aspiration Pneumonitis with ARDS physiology Recent ESBL E coli Bacteremia Bilateral Feet Gangrene Infected Decubitus Ulcers Septic Shock ESRD on HD DM HTN Hyperlipidemia h/o CVA - continue antibiotics per ID - continue midodrine - monitoring off pressors, maintain MAP >65 - monitor H/H - local wound care - HD per renal - enteral feeds - spontaneous breathing trials as tolerated - DVT prophylaxis - continue efforts to discuss medical condition and prognosis with next of kin - given overall poor condition, current medical condition, and overall poor oysterman outcome, recommend palliative/comfort care - continue ICU monitoring critical care time spent in reviewing chart, evaluating patient and formulating plan 35 min
--- NOTE | 2019-03-31 10:45 | PN ---
Physical Exam: SUBJECTIVE: Patient seen and examined at bedside. Overnight patient went bradycardic to 46-50 and sinus. Otherwise no ovn events. Off pressors. OBJECTIVE: Vital Signs Period Temp Pulse Resp BP Sys/Zamorano Pulse Ox Last 24 Hr 97.5 F-98.2 F 47-78 12-19 108-129/53-78 100-100 GENERAL: A&Ox0, no acute distress, intubated ENT: Dry mucus membranes NECK: No JVD LUNGS: Coarse breath sounds bilaterally, more audible on L vs R HEART: regular rate and rhythm, no murmurs ABDOMEN: Soft, nontender, BS present MUSCULOSKELETAL: No CVA Tenderness EXTREMITIES: 2+ pulses, 3+ edema bilaterally NEUROLOGICAL: Unable to assess mental status SKIN: bilateral gangrene lower ext down to the tendon on the left with purulent foul smelling discharge. Unstageble sacral ulcer Laboratory Results - last 24 hr 03/30/19 03/30/19 03/30/19 11:45 12:33 17:02 WBC 18.7 H RBC 2.98 L Hgb 8.8 L Hct 27.9 L MCV 93.5 MCH 29.7 MCHC 31.7 L RDW 20.0 H Plt Count 88 L MPV 10.7 Sodium Potassium Chloride Carbon Dioxide Anion Gap BUN Creatinine Est GFR (CKD-EPI)AfAm Est GFR (CKD-EPI)NonAf POC Glucometer 126 137 Random Glucose Calcium Phosphorus Magnesium Total Bilirubin AST ALT Alkaline Phosphatase Total Protein Albumin 03/30/19 03/31/19 03/31/19 23:06 05:20 05:20 WBC 10.9 H RBC 2.52 L Hgb 7.5 L Hct 23.8 L MCV 94.7 MCH 29.6 MCHC 31.3 L RDW 19.4 H Plt Count 80 L MPV 12.1 H D Sodium 141 Potassium 3.6 Chloride 104 Carbon Dioxide 30 Anion Gap 7 L BUN 36.5 H Creatinine 1.3 Est GFR (CKD-EPI)AfAm 62.30 Est GFR (CKD-EPI)NonAf 53.75 POC Glucometer 132 Random Glucose 152 H Calcium 6.5 L* Phosphorus 3.9 Magnesium 1.7 L Total Bilirubin 0.7 AST 31 ALT 18 Alkaline Phosphatase 655 H Total Protein 4.1 L Albumin 1.2 L 03/31/19 05:59 WBC RBC Hgb Hct MCV MCH MCHC RDW Plt Count MPV Sodium Potassium Chloride Carbon Dioxide Anion Gap BUN Creatinine Est GFR (CKD-EPI)AfAm Est GFR (CKD-EPI)NonAf POC Glucometer 131 Random Glucose Calcium Phosphorus Magnesium Total Bilirubin AST ALT Alkaline Phosphatase Total Protein Albumin Active Medications Generic Name Dose Route Start Last Admin Trade Name Freq PRN Reason Stop Dose Admin Amino Acids 30 ml 03/23/19 22:00 03/31/19 06:25 Prosource No Carb Liquid Pkt NGT 30 ml TID CHANTELL Administration Apixaban 2.5 mg 03/29/19 22:00 03/31/19 09:28 Eliquis - PO 2.5 mg BID CHANTELL Administration Atorvastatin Calcium 20 mg 03/23/19 22:00 03/30/19 22:09 Lipitor - NGT 20 mg HS CHANTELL Administration Collagenase 1 applic 03/22/19 10:00 03/30/19 15:26 Santyl - TP 1 applic DAILY CHANTELL Administration Protocol Escitalopram Oxalate 10 mg 03/24/19 10:00 03/31/19 09:28 Lexapro - NGT 10 mg DAILY CHANTELL Administration Hydrocortisone 50 mg 03/25/19 10:00 03/31/19 09:48 Cortef - PO 50 mg BID CHANTELL Administration Meropenem 500 mg/ Dextrose 100 mls @ 200 mls/hr 03/22/19 10:00 03/30/19 12:06 IVPB 200 mls/hr DAILY CHANTELL Administration Propofol 1,000,000 mcg in 100 mls @ 2.851 mls/hr 03/27/19 03:45 03/31/19 06: 25 Diprivan - IVPB 10 mcg/kg/min TITR CHANTELL 5.702 mls/hr Administration Protocol 5 MCG/KG/MIN Norepinephrine Bitartrate 8, 500 mls @ 18.75 mls/hr 03/28/19 22:00 03/30/19 22:08 000 mcg/ Dextrose IV Not Given TITR CHANTELL Protocol 5 MCG/MIN Fentanyl 500 mcg/ Dextrose 100 mls @ 5 mls/hr 03/29/19 10:45 03/31/19 04:45 IVPB 50 mcg/hr TITR CHANTELL 10 mls/hr Titration Protocol 25 MCG/HR Insulin Aspart 1 vial 03/22/19 00:00 03/31/19 06:26 Novolog Vial Sliding Scale - SQ Not Given Q6HPO CHANTELL Protocol Metoprolol Tartrate 12.5 mg 03/26/19 10:00 03/31/19 09:31 Lopressor - PO Not Given BID [facility] Midodrine 10 mg 03/23/19 18:00 03/31/19 09:26 Proamatine - NGT 10 mg TID-MID CHANTELL Administration Morphine Sulfate 2 mg 03/27/19 01:32 03/30/19 15:30 Morphine Sulfate IVPUSH 2 mg Q3H PRN Administration PAIN LEVEL 6-10 Pantoprazole Sodium 40 mg 03/21/19 22:00 03/31/19 09:31 Protonix Iv IVPUSH 40 mg BID CHANTELL Administration ASSESSMENT/PLAN: 73 year old male with a past medical history of end stage renal disease on dialysis, peripheral vascular disease, hyperlipidemia, diabetes mellitus, COPD, bilateral gangrenous legs admitted for septic shock 2/2 b/l foot ulcers/ gangrene and prolonged hospitalization now in ICU s/p aspiration tube feeds Neurologic -not alert or oriented -eyes not tracking -intubated but not sedated Cardiovascular -BP low normal with maps continually ~64-70 off pressors -on eliquis for afib, however patient remains in sinus rhythm -rate control with BB as needed, monitor BP -on midodrine for BP Pulmonary -pulmonary status was compromised by aspiration, CXR revealed complete white out of R lung, improved -low vent settings, will keep on CPAP overnight and likely extubate in the morning -patient already on meropenem -on hydrocortisone 50 BID -duonebs q6h prn Gastrointestinal -tube feeds restarted -on protonix IV BID for prior suspected GIB -will attach NGT to suction and consider transitioning to IV medication if no improvement by the AM Renal -patient getting dialysis per nephro -hypoalbuminemic due to malnutrition, which is likely the cause of patient third spacing his fluids Heme/Onc -anemia likely 2/2 ESRD and decreased erythropoitin -continue EPO -maintain H&H above 7 by transfusions as needed Endocrine -has diabetes mellitus -BGMs -ISS ID -septic shock, treated with meropenem, continue -ID consultation appreciated Prophylaxis -Eliquis 2.5mg BID -Protonix IV while on AC and pressors -bacid #Disposition -we will follow patient in ICU Visit type - Emergency Visit Emergency Visit: No - New Patient This patient is new to me today: No - Critical Care Critical Care patient: Yes Total Critical Care Time (in minutes): 38 Critical Care Statement: The care of this patient involved high complexity decision making to prevent further life threatening deterioration of the patient 's condition and/or to evaluate & treat vital organ system(s) failure or risk of failure.
[2019-03-31] MEDS: MEROPENEM 500 MG in DEXTROSE 5%-WATER 100 ML IVPB SCH (11:30)
[2019-03-31] MEDS: COLLAGENASE CLOSTRIDIUM HIST. 30 GRAMS TUBE TP SCH (12:54)
--- NOTE | 2019-03-31 13:49 | EKG ---
Test Reason : Blood Pressure : / mmHG Vent. Rate : 053 BPM Atrial Rate : 053 BPM P-R Int : 148 ms QRS Dur : 076 ms QT Int : 534 ms P-R-T Axes : 076 062 060 degrees QTc Int : 501 ms SINUS BRADYCARDIA WITH PREMATURE SUPRAVENTRICULAR COMPLEXES T WAVE ABNORMALITY, CONSIDER ANTERIOR ISCHEMIA PROLONGED QT ABNORMAL ECG WHEN COMPARED WITH ECG OF 18-MAR-2019 09:42, SIGNIFICANT CHANGES HAVE OCCURRED Confirmed by MD ISAAC, USMAN ([id number]) on 03/31/2019 1:49:32 PM Referred By: Confirmed By:USMAN GRAY MD
--- NOTE | 2019-03-31 16:47 | PN ---
Physical Exam: SUBJECTIVE: Spoke to the ICU team and was notified MAP>65 so pressors have been removed continuing w midodrine. Pt is to be weaned and extubated tomorrow. Pt at minimal O2 requirements, breathing on his own and good cough reflex. Pt off sedation. Continuing meropenem and patient vitals have been stable. OBJECTIVE: Vital Signs Period Temp Pulse Resp BP Sys/Zamorano Pulse Ox Last 24 Hr 97.5 F-98.2 F 47-68 12-21 109-127/51-71 100-100 Laboratory Results - last 24 hr 03/30/19 03/30/19 03/31/19 17:02 23:06 05:20 WBC 10.9 H RBC 2.52 L Hgb 7.5 L Hct 23.8 L MCV 94.7 MCH 29.6 MCHC 31.3 L RDW 19.4 H Plt Count 80 L MPV 12.1 H D Sodium Potassium Chloride Carbon Dioxide Anion Gap BUN Creatinine Est GFR (CKD-EPI)AfAm Est GFR (CKD-EPI)NonAf POC Glucometer 137 132 Random Glucose Calcium Phosphorus Magnesium Total Bilirubin AST ALT Alkaline Phosphatase Total Protein Albumin 03/31/19 03/31/19 03/31/19 05:20 05:59 12:53 WBC RBC Hgb Hct MCV MCH MCHC RDW Plt Count MPV Sodium 141 Potassium 3.6 Chloride 104 Carbon Dioxide 30 Anion Gap 7 L BUN 36.5 H Creatinine 1.3 Est GFR (CKD-EPI)AfAm 62.30 Est GFR (CKD-EPI)NonAf 53.75 POC Glucometer 131 140 Random Glucose 152 H Calcium 6.5 L* Phosphorus 3.9 Magnesium 1.7 L Total Bilirubin 0.7 AST 31 ALT 18 Alkaline Phosphatase 655 H Total Protein 4.1 L Albumin 1.2 L Active Medications Generic Name Dose Route Start Last Admin Trade Name Freq PRN Reason Stop Dose Admin Amino Acids 30 ml 03/23/19 22:00 03/31/19 15:24 Prosource No Carb Liquid Pkt NGT 30 ml TID [facility]TELL Administration Apixaban 2.5 mg 03/29/19 22:00 03/31/19 09:28 Eliquis - PO 2.5 mg BID [facility] Administration Atorvastatin Calcium 20 mg 03/23/19 22:00 03/30/19 22:09 Lipitor - NGT 20 mg HS [facility] Administration Collagenase 1 applic 03/22/19 10:00 03/30/19 15:26 Santyl - TP 1 applic DAILY [facility]TELL Administration Protocol Escitalopram Oxalate 10 mg 03/24/19 10:00 03/31/19 09:28 Lexapro - NGT 10 mg DAILY [facility] Administration Hydrocortisone 50 mg 03/25/19 10:00 03/31/19 09:48 Cortef - PO 50 mg BID [facility] Administration Meropenem 500 mg/ Dextrose 100 mls @ 200 mls/hr 03/22/19 10:00 03/31/19 11:30 IVPB 200 mls/hr DAILY [facility] Administration Propofol 1,000,000 mcg in 100 mls @ 2.851 mls/hr 03/27/19 03:45 03/31/19 06: 25 Diprivan - IVPB 10 mcg/kg/min TITR [facility] 5.702 mls/hr Administration Protocol 5 MCG/KG/MIN Norepinephrine Bitartrate 8, 500 mls @ 18.75 mls/hr 03/28/19 22:00 03/30/19 22:08 000 mcg/ Dextrose IV Not Given TITR [facility] Protocol 5 MCG/MIN Fentanyl 500 mcg/ Dextrose 100 mls @ 5 mls/hr 03/29/19 10:45 03/31/19 15:23 IVPB 50 mcg/hr TITR [facility] 10 mls/hr Administration Protocol 25 MCG/HR Insulin Aspart 1 vial 03/22/19 00:00 03/31/19 13:20 Novolog Vial Sliding Scale - SQ Not Given Q6HPO [facility] Protocol Metoprolol Tartrate 12.5 mg 03/26/19 10:00 03/31/19 09:31 Lopressor - PO Not Given BID [facility] Midodrine 10 mg 03/23/19 18:00 03/31/19 15:11 Proamatine - NGT 10 mg TID-MID [facility] Administration Morphine Sulfate 2 mg 03/27/19 01:32 03/30/19 15:30 Morphine Sulfate IVPUSH 2 mg Q3H PRN Administration PAIN LEVEL 6-10 Pantoprazole Sodium 40 mg 03/21/19 22:00 03/31/19 09:31 Protonix Iv IVPUSH 40 mg BID [facility] Administration ASSESSMENT/PLAN: This is a 73 y/o M w a PMH od ESRD on dialysis, PVD, HLD, DM, COPD, b/l gangrenous legs admitted for septic shock 2/2 b/l foot gangrene and prolonged hospitalization now in ICU s/p aspiration and now intubated. #Acute hypoxic respiratory failure with hypercapnia due to aspiration PNA - intubated d/c levophed ggt due to MAP>65. - Pt on meropenem on his 36th dose. - on hydrocortisone 50 BID for adrenal insufficiency during septic shock. continuing to taper. - Dr. Montoya recs- palliative care for pt, spontaneous breathing trials -duonebs q6hprn - ventilator management - Head of bed elevations - c/w ICU monitoring #Septic shock resolved -ID consuit (Dr Multani) appreciate recs - MRSA, ESBL, pseudomonas, E coli B.C.'s on 03/11/19 02/21/19- Gangrenous foot Cx- ESBL, MOrganella morganii, BC's- proteus mirabilis. - septic shock due to MAP<65 despite fluids. - Treating with meropenem for the ESBL gangrenous legs (dose 33). #Proteus, ESBL, E coli bacteremia - Cx's positive on this - on meropenem dose 33 continue it as per ID. #Infected sacral decubitus ulcers and scrotal ulcer - monitoring the ulcers and keeping it dry and clean. #infected gangrenous ulcers on feet - continue to manage as per wound care and keep area dressed in gauze and dry. #Afib w RVR - eliquis has been restarted for afib due to PLT's uptrending. - rate control with metoprolol 12.5 BID as needed and hold if systolic BP <90, HR<60, or diastolic <60. - on midodrine for BP #ESRD -As per renal -HD done yesterday - will monitor bp - will dialyze again tomorrow - continue tube feeds - 3 k bath on HD #Thrombocytopenia/Anemia -Anemia due to ESRD w decreased EPO from renal malproduction. Continue EPO 12, 000 units. -Maintain Hemoglobin >7 by transfusions as needed. -Thrombocytopenia- if bleeding occurs with a PLT <50 then we will transfuse, if <10 we will transfuse even without the presence of bleeding. - PLT'S 91 much higher than before will continue to monitor. -restarted eliquis due to PLT level coming back up. #Diabetes - has DM - Blood glucose monitoring - Insulin sliding scale #Neuro/Seizure hx - Keppra was stopped on 03/13 but can be resumed in event of seizure. #FEN - will continue monitoring lytes and replete as necessary. - no fluids indicated at this time. - Pt has been NPO due to aspiration potential and tube feeds have been restarted. Prophylaxis- DVT: on eliquis 2.5 GI: Protonix -Bacid Visit type - Emergency Visit Emergency Visit: No - New Patient This patient is new to me today: No - Critical Care Critical Care patient: Yes Total Critical Care Time (in minutes): 45 Critical Care Statement: The care of this patient involved high complexity decision making to prevent further life threatening deterioration of the patient 's condition and/or to evaluate & treat vital organ system(s) failure or risk of failure. - Discharge Referral Referred to [facility] No
--- NOTE | 2019-03-31 19:08 | PN ---
Teaching Attending Note Name of Resident: Michele Mchugh ATTENDING PHYSICIAN STATEMENT I saw and evaluated the patient. I reviewed the resident's note and discussed the case with the resident. I agree with the resident's findings and plan as documented. SUBJECTIVE: Patient remains in ICU: Overnight patient went bradycardic to 46-50 and sinus. Off pressors. OBJECTIVE: Vital Signs Temperature 98.0 F 03/31/19 14:00 Pulse Rate 76 03/31/19 18:00 Respiratory Rate 22 H 03/31/19 18:00 Blood Pressure 129/71 03/31/19 18:00 O2 Sat by Pulse Oximetry (%) 100 03/31/19 12:00 GENERAL: The patient is intubated , sedated. HEAD: Normal with no signs of trauma. EYES: extraocular movements intact, sclera anicteric, ENT: intubated and sedated . NECK: Trachea midline, positive for ET-tube LUNGS: intubated , sedated . HEART: RRR , S1, S2 without murmur, rub or gallop. ABDOMEN: Soft, NT, ND, BS positive, no guarding, no rebound, no hepatosplenomegaly, no masses. EXTREMITIES: gangrenous lower extremities , 3plus edema SKIN: Warm. CBCD WBC 10.9 K/mm3 (4.0-10.0) H 03/31/19 05:20 RBC 2.52 M/mm3 (4.00-5.60) L 03/31/19 05:20 Hgb 7.5 GM/dL (11.7-16.9) L 03/31/19 05:20 Hct 23.8 % (35.4-49) L 03/31/19 05:20 MCV 94.7 fl (80-96) 03/31/19 05:20 MCHC 31.3 g/dl (32.0-35.9) L 03/31/19 05:20 RDW 19.4 % (11.9-15.9) H 03/31/19 05:20 Plt Count 80 K/MM3 (134-434) L 03/31/19 05:20 MPV 12.1 fl (7.5-11.1) H D 03/31/19 05:20 CMP Sodium 141 mmol/L (136-145) 03/31/19 05:20 Potassium 3.6 mmol/L (3.5-5.1) 03/31/19 05:20 Chloride 104 mmol/L (98-107) 03/31/19 05:20 Carbon Dioxide 30 mmol/L (21-32) 03/31/19 05:20 Anion Gap 7 MMOL/L (8-16) L 03/31/19 05:20 BUN 36.5 mg/dL (7-18) H 03/31/19 05:20 Creatinine 1.3 mg/dL (0.55-1.3) 03/31/19 05:20 Random Glucose 152 mg/dL (74-106) H 03/31/19 05:20 Calcium 6.5 mg/dL (8.5-10.1) L* 03/31/19 05:20 Total Bilirubin 0.7 mg/dL (0.2-1) 03/31/19 05:20 AST 31 U/L (15-37) 03/31/19 05:20 ALT 18 U/L (13-61) 03/31/19 05:20 Alkaline Phosphatase 655 U/L (45-117) H 03/31/19 05:20 Total Protein 4.1 g/dl (6.4-8.2) L 03/31/19 05:20 Albumin 1.2 g/dl (3.4-5.0) L 03/31/19 05:20 CARDIAC ENZYMES Troponin I < 0.02 ng/ml (0.00-0.05) 02/21/19 15:10 Current Medications Generic Name Dose Route Start Last Admin Trade Name Freq PRN Reason Stop Dose Admin Amino Acids 30 ml 03/23/19 22:00 03/31/19 15:24 Prosource No Carb Liquid Pkt NGT 30 ml TID [facility]ANTELL Administration Apixaban 2.5 mg 03/29/19 22:00 03/31/19 09:28 Eliquis - PO 2.5 mg BID [facility]TE[facility] Administration Atorvastatin Calcium 20 mg 03/23/19 22:00 03/30/19 22:09 Lipitor - NGT 20 mg HS CHANTELL Administration Collagenase 1 applic 03/22/19 10:00 03/31/19 12:54 Santyl - TP 1 applic DAILY [facility]TE[facility] Administration Protocol Escitalopram Oxalate 10 mg 03/24/19 10:00 03/31/19 09:28 Lexapro - NGT 10 mg DAILY [facility] Administration Hydrocortisone 50 mg 03/25/19 10:00 03/31/19 09:48 Cortef - PO 50 mg BID [facility]TE[facility] Administration Meropenem 500 mg/ Dextrose 100 mls @ 200 mls/hr 03/22/19 10:00 03/31/19 11:30 IVPB 200 mls/hr DAILY [facility] Administration Propofol 1,000,000 mcg in 100 mls @ 2.851 mls/hr 03/27/19 03:45 03/31/19 06: 25 Diprivan - IVPB 10 mcg/kg/min TITR CHANTE[facility] 5.702 mls/hr Administration Protocol 5 MCG/KG/MIN Norepinephrine Bitartrate 8, 500 mls @ 18.75 mls/hr 03/28/19 22:00 03/30/19 22:08 000 mcg/ Dextrose IV Not Given TITR [facility]ANTELL Protocol 5 MCG/MIN Fentanyl 500 mcg/ Dextrose 100 mls @ 5 mls/hr 03/29/19 10:45 03/31/19 15:23 IVPB 50 mcg/hr TITR CHANTELL 10 mls/hr Administration Protocol 25 MCG/HR Insulin Aspart 1 vial 03/22/19 00:00 03/31/19 17:33 Novolog Vial Sliding Scale - SQ Not Given Q6HPO [facility] Protocol Metoprolol Tartrate 12.5 mg 03/26/19 10:00 03/31/19 09:31 Lopressor - PO Not Given BID COUNT [facility]CLUDES [facility] Midodrine 10 mg 03/23/19 18:00 03/31/19 15:11 Proamatine - NGT 10 mg TID-MID [facility]TE[facility] Administration Morphine Sulfate 2 mg 03/27/19 01:32 03/30/19 15:30 Morphine Sulfate IVPUSH 2 mg Q3H PRN Administration PAIN LEVEL 6-10 Pantoprazole Sodium 40 mg 03/21/19 22:00 03/31/19 09:31 Protonix Iv IVPUSH 40 mg BID [facility]ES [facility] Administration Home Medications Medication Instructions Recorded Albuterol 2.5/Ipratropium 0.5 1 amp NEB Q6H PRN #0 amp 07/12/17 [Duoneb -] Allopurinol [Zyloprim -] 100 mg PO DAILY tablet 07/12/17 Atorvastatin Ca [Lipitor] 20 mg PO HS tablet 07/12/17 Collagenase Clostridium Hist. 1 applic TP DAILY tube 09/06/18 [Santyl -] Albuterol Sulfate [Proair Hfa] 2 puff IH Q6H PRN 10/29/18 Escitalopram Oxalate [Lexapro -] 10 mg PO DAILY 10/29/18 Folic Acid/Vit B Complex and C 1 each PO DAILY 10/29/18 [Dialyvite Tablet] Midodrine HCl 10 mg PO MOWEFR 10/29/18 Sevelamer Carbonate [Renvela -] 1,600 mg PO TID 10/29/18 Tamsulosin HCl [Flomax] 0.4 mg PO HS 10/29/18 Insulin Sliding Scale [Novolog 1 vial SQ TIDAC #1 vial 11/17/18 Vial Sliding Scale -] Apixaban [Eliquis -] 5 mg PO BID #30 tablet MDD 2 11/19/18 Collagenase Clostridium Hist. 1 applic TP DAILY #1 tube 01/17/19 [Santyl -] Amoxicillin/Potassium Clav 1 each PO DAILY #7 tablet 02/06/19 [Augmentin 500-125 Tablet] Megestrol Acetate Oral Susp 400 mg PO DAILY #20 cup 02/06/19 [Megace Liquid -] Protein Supplement [Prosource] 275 gm PO TID #60 powder 02/06/19 Lactobacillus Acidophilus [Bacid -] 1 tab PO DAILY #60 tab 02/19/19 Midodrine HCl [Proamatine -] 5 mg PO SuTuThSa #60 tablet 02/19/19 traMADol HCL [Ultram -] 50 mg PO Q6H PRN #60 tablet MDD 4 02/19/19 ASSESSMENT AND PLAN: Patient is a 73 y/o man with h/o dementia, CVA, DM, COPD, ESRD, gout, HTN, HLP, recent admission 01/31-02/19 during which he was treated for sepsis due to infected b/l feet ulcers/gangrene. He was sent from [place] due to poor po intake, and non healing wounds # Acute hypoxic resp failure/aspiration s/p extubated and re-intubation , further care per ICU ,HOB elevation. # s/p Septic shock resolved cont hydrocortisone at 50 BID ,off levophed now # Infected sacral decub and scrotal ulcer on IV antibiotic continue cont meropenem # Proteus bacteremia ,ESBL producing E coli bacteremia cont meropenem # ESRD on HD per schedule , on Midodrine , had bedside HD, tolerated, nephro # DM SSI # Infected gangrenous of LEs with open wounds cont meropenem #anemia #A fib with RVR hold eliquis due to thrombocytopenia #thrombocytopenia hold eliquis due to thrombocytopenia # hx of seizure keppra stopped on 03/13 , if seizures recur then can resume Poor prognosis. continue monitoring in ICU
[2019-03-31] MEDS: ATORVASTATIN CA 20 MG TABLET (FP) NGT SCH (21:04)
[2019-04-01] MEDS: INSULIN SLIDING SCALE (NOVOLOG) 1 VIAL SQ SCH ×4 (00:06→18:59)
[2019-04-01] MEDS ORDERED: fentaNYL CITRATE 250 MCG/5 ML VIAL ONE (02:03)
[2019-04-01 06:01] LABS: ALBUMIN 1.2 g/dl (3.4-5.0); BILIRUBIN,TOTAL 0.8 mg/dL (0.2-1); BLOOD UREA NITROGEN 43.7 mg/dL (7-18); CREATININE 1.6 mg/dL (0.55-1.3); POTASSIUM 3.7 mmol/L (3.5-5.1); TOT PROT 4.6 g/dl (6.4-8.2)
[2019-04-01] MEDS: AMINO ACIDS/PROTEIN HYDROLYS 30 ML LIQUID.PKT NGT SCH ×3 (06:17→22:02)
[2019-04-01 06:25] LABS: HEMATOCRIT 25.6 % (35.4-49); HEMOGLOBIN 8.1 GM/dL (11.7-16.9); MCHC 31.5 g/dl (32.0-35.9); MEAN CELL VOLUME 95.1 fl (80-96); MEAN PLT VOLUME 12.4 fl (7.5-11.1); PLATELET COUNT 99 K/MM3 (134-434); RBC 2.69 M/mm3 (4.00-5.60); RDW 19.9 % (11.9-15.9); WHITE BLOOD COUNT 12.9 K/mm3 (4.0-10.0)
[2019-04-01 06:34] LABS: CALCIUM 6.3 mg/dL (8.5-10.1)
[2019-04-01] MEDS: PROPOFOL 1,000,000 MCG/100 ML VIAL IVPB SCH (07:55)
[2019-04-01] MEDS ORDERED: CALCIUM GLUCONATE 10% - 1,000 MG/10 ML VIAL IVPB ONE (08:30)
[2019-04-01] MEDS: FENTANYL INJECTION 500 MCG in DEXTROSE 5%-WATER - 90 ML IVPB SCH (08:30)
[2019-04-01] MEDS: PANTOPRAZOLE SODIUM 40 MG VIAL IVPUSH SCH ×2 (09:17→22:02)
[2019-04-01] MEDS: APIXABAN 2.5 MG TABLET PO SCH ×2 (09:17→22:01)
[2019-04-01] MEDS: ESCITALOPRAM OXALATE 10 MG TABLET (FP) NGT SCH (09:17)
[2019-04-01] MEDS: MEROPENEM 500 MG in DEXTROSE 5%-WATER 100 ML IVPB SCH (09:19)
[2019-04-01] MEDS: METOPROLOL TARTRATE 25 MG TABLET (FP) PO SCH ×2 (09:19→22:02)
[2019-04-01] MEDS: COLLAGENASE CLOSTRIDIUM HIST. 30 GRAMS TUBE TP SCH (09:19)
[2019-04-01] MEDS ORDERED: PT OWN MED DRAWER 7, Y5N ONE ×2 (09:37→21:58)
[2019-04-01] MEDS: HYDROCORTISONE 20 MG TABLET PO SCH ×2 (10:03→22:28)
--- NOTE | 2019-04-01 11:45 | PN ---
Teaching Attending Note Name of Resident: Fili Haskins ATTENDING PHYSICIAN STATEMENT I saw and evaluated the patient. I reviewed the resident's note and discussed the case with the resident. I agree with the resident's findings and plan as documented. SUBJECTIVE: Pt seen and examined in the ICU. Intubated, mental status at baseline off sedation. Cough adequate, tolerated CPAP/PS and subsequently extubated during rounds. OBJECTIVE: Vital Signs Period Temp Pulse Resp BP Sys/Zamorano Pulse Ox Last 24 Hr 98.0 F-98.6 F 45-76 11-22 107-129/58-71 98-100 Intake & Output 03/29/19 03/30/19 03/31/19 04/01/19 23:59 23:59 23:59 23:59 Intake Total 486 436 2579 115 Output Total 0 Balance 665 647 7642 115 Weight 87.498 kg 89.902 kg 87.906 kg 86.9 kg Gen: extubated Heart: RRR Lung: decreased breath sounds at the bases Abd: soft, nontender Ext: + edema, feet wrapped CBC, BMP 04/01/19 05:00 04/01/19 05:00 Active Medications Amino Acids (Prosource No Carb Liquid Pkt) 30 ml NGT TID [facility] Last Admin: 04/01/19 06:17 Dose: 30 ml Apixaban (Eliquis -) 2.5 mg PO BID [facility] Last Admin: 04/01/19 09:17 Dose: 2.5 mg Atorvastatin Calcium (Lipitor -) 20 mg NGT HS [facility] Last Admin: 03/31/19 21:04 Dose: 20 mg Collagenase (Santyl -) 1 applic TP DAILY [facility]ANTELL; Protocol Last Admin: 04/01/19 09:19 Dose: 1 applic Escitalopram Oxalate (Lexapro -) 10 mg NGT DAILY [facility] Last Admin: 04/01/19 09:17 Dose: 10 mg Hydrocortisone (Cortef -) 50 mg PO BID [facility] Last Admin: 04/01/19 10:03 Dose: 50 mg Meropenem 500 mg/ Dextrose 100 mls @ 200 mls/hr IVPB DAILY [facility] Last Admin: 04/01/19 09:19 Dose: 200 mls/hr Propofol (Diprivan -) 1,000,000 mcg in 100 mls @ 2.851 mls/hr IVPB TITR [facility]; Protocol Last Admin: 04/01/19 07:55 Dose: Not Given Fentanyl 500 mcg/ Dextrose 100 mls @ 5 mls/hr IVPB TITR [facility]; Protocol Last Titration: 04/01/19 08:30 Dose: 0 mcg/hr, 0 mls/hr Insulin Aspart (Novolog Vial Sliding Scale -) 1 vial SQ Q6HPO [facility]; Protocol Last Admin: 04/01/19 06:18 Dose: Not Given Metoprolol Tartrate (Lopressor -) 12.5 mg PO BID [facility] Last Admin: 04/01/19 09:19 Dose: Not Given Midodrine (Proamatine -) 10 mg NGT TID-MID [facility] Last Admin: 04/01/19 09:17 Dose: 10 mg Morphine Sulfate (Morphine Sulfate) 2 mg IVPUSH Q3H PRN PRN Reason: PAIN LEVEL 6-10 Last Admin: 03/30/19 15:30 Dose: 2 mg Pantoprazole Sodium (Protonix Iv) 40 mg IVPUSH BID [facility] Last Admin: 04/01/19 09:17 Dose: 40 mg ASSESSMENT AND PLAN: Acute Respiratory Failure Aspiration Pneumonitis with ARDS physiology Recent ESBL E coli Bacteremia Bilateral Feet Gangrene Infected Decubitus Ulcers Septic Shock ESRD on HD DM HTN Hyperlipidemia h/o CVA - pt extubated - continue antibiotics per ID - continue midodrine - monitoring off pressors, maintain MAP >65 - monitor H/H - local wound care - HD per renal - enteral feeds - DVT prophylaxis - continue efforts to discuss medical condition and prognosis with next of kin - given overall poor condition, current medical condition, and overall poor supervisor intermediates outcome, recommend palliative/comfort care - continue ICU monitoring critical care time spent in reviewing chart, evaluating patient and formulating plan 35 min
--- NOTE | 2019-04-01 11:52 | PN ---
Progress Note (short form) - Note Progress Note: NG tube placed 16Fr to 65mark at the L nare. Auscultation of abdomen with positive air sounds in LUQ. CXR ordered to confirm placement. Please resume all NG medications --Fili Overton, DO - IM PGY-3
--- NOTE | 2019-04-01 11:55 | PN ---
Progress Note, Physician History of Present Illness: Pt seen and examined at bedside. He is now extubated. He does respond to verbal stimulation. - Current Medication List Current Medications: Active Medications Amino Acids (Prosource No Carb Liquid Pkt) 30 ml NGT TID [facility] Last Admin: 04/01/19 06:17 Dose: 30 ml Apixaban (Eliquis -) 2.5 mg PO BID [facility] Last Admin: 04/01/19 09:17 Dose: 2.5 mg Atorvastatin Calcium (Lipitor -) 20 mg NGT HS [facility] Last Admin: 03/31/19 21:04 Dose: 20 mg Collagenase (Santyl -) 1 applic TP DAILY [facility]; Protocol Last Admin: 04/01/19 09:19 Dose: 1 applic Escitalopram Oxalate (Lexapro -) 10 mg NGT DAILY [facility] Last Admin: 04/01/19 09:17 Dose: 10 mg Hydrocortisone (Cortef -) 50 mg PO BID [facility] Last Admin: 04/01/19 10:03 Dose: 50 mg Meropenem 500 mg/ Dextrose 100 mls @ 200 mls/hr IVPB DAILY [facility] Last Admin: 04/01/19 09:19 Dose: 200 mls/hr Propofol (Diprivan -) 1,000,000 mcg in 100 mls @ 2.851 mls/hr IVPB TITR [facility]; Protocol Last Admin: 04/01/19 07:55 Dose: Not Given Fentanyl 500 mcg/ Dextrose 100 mls @ 5 mls/hr IVPB TITR [facility]; Protocol Last Titration: 04/01/19 08:30 Dose: 0 mcg/hr, 0 mls/hr Insulin Aspart (Novolog Vial Sliding Scale -) 1 vial SQ Q6HPO [facility]; Protocol Last Admin: 04/01/19 06:18 Dose: Not Given Metoprolol Tartrate (Lopressor -) 12.5 mg PO BID [facility] Last Admin: 04/01/19 09:19 Dose: Not Given Midodrine (Proamatine -) 10 mg NGT TID-MID [facility] Last Admin: 04/01/19 09:17 Dose: 10 mg Morphine Sulfate (Morphine Sulfate) 2 mg IVPUSH Q3H PRN PRN Reason: PAIN LEVEL 6-10 Last Admin: 03/30/19 15:30 Dose: 2 mg Pantoprazole Sodium (Protonix Iv) 40 mg IVPUSH BID [facility] Last Admin: 04/01/19 09:17 Dose: 40 mg - Objective Vital Signs: Vital Signs Temperature 98.0 F 03/31/19 14:00 Pulse Rate 63 04/01/19 10:32 Respiratory Rate 13 04/01/19 10:00 Blood Pressure 128/69 04/01/19 10:00 O2 Sat by Pulse Oximetry (%) 100 04/01/19 10:32 Constitutional: Yes: Mild Distress Eyes: Yes: Conjunctiva Clear HENT: Yes: Atraumatic Neck: Yes: Supple Cardiovascular: Yes: S1, S2 Respiratory: Yes: On Venti-Mask Gastrointestinal: Yes: Soft Genitourinary: Yes: Incontinence Musculoskeletal: Yes: Muscle Weakness Edema: Yes Edema: LUE: 1+, RUE: 1+ Wound/Incision: Yes: Other (odor from wounds) Neurological: Yes: Lethargy Labs: CBC, BMP 04/01/19 05:00 04/01/19 05:00 INR, PTT INR 1.22 (0.83-1.09) H 03/27/19 15:30 Fibrinogen 459.0 mg/dL (238-498) 03/27/19 15:30 Problem List - Problems (1) ESRD (end stage renal disease) on dialysis Code(s): N18.6 - END STAGE RENAL DISEASE; Z99.2 - DEPENDENCE ON RENAL DIALYSIS Assessment/Plan Current Medications Generic Name Dose Route Start Last Admin Trade Name Kassandra PRN Reason Stop Dose Admin Amino Acids 30 ml 03/23/19 22:00 04/01/19 06:17 Prosource No Carb Liquid Pkt NGT 30 ml TID [facility]TE[facility] Administration Apixaban 2.5 mg 03/29/19 22:00 04/01/19 09:17 Eliquis - PO 2.5 mg BID [facility] Administration Atorvastatin Calcium 20 mg 03/23/19 22:00 03/31/19 21:04 Lipitor - NGT 20 mg HS [facility] Administration Collagenase 1 applic 03/22/19 10:00 04/01/19 09:19 Santyl - TP 1 applic DAILY [facility] Administration Protocol Escitalopram Oxalate 10 mg 03/24/19 10:00 04/01/19 09:17 Lexapro - NGT 10 mg DAILY [facility] Administration Hydrocortisone 50 mg 03/25/19 10:00 04/01/19 10:03 Cortef - PO 50 mg BID [facility] Administration Meropenem 500 mg/ Dextrose 100 mls @ 200 mls/hr 03/22/19 10:00 04/01/19 09:19 IVPB 200 mls/hr DAILY [facility] Administration Propofol 1,000,000 mcg in 100 mls @ 2.851 mls/hr 03/27/19 03:45 04/01/19 07: 55 Diprivan - IVPB Not Given TITR [facility] Protocol 5 MCG/KG/MIN Fentanyl 500 mcg/ Dextrose 100 mls @ 5 mls/hr 03/29/19 10:45 04/01/19 08:30 IVPB 0 mcg/hr TITR [facility]ANTE[facility] 0 mls/hr Titration Protocol 25 MCG/HR Insulin Aspart 1 vial 03/22/19 00:00 04/01/19 06:18 Novolog Vial Sliding Scale - SQ Not Given Q6HPO [facility] Protocol Metoprolol Tartrate 12.5 mg 03/26/19 10:00 04/01/19 09:19 Lopressor - PO Not Given BID [facility] Midodrine 10 mg 03/23/19 18:00 04/01/19 09:17 Proamatine - NGT 10 mg TID-MID [facility] Administration Morphine Sulfate 2 mg 03/27/19 01:32 03/30/19 15:30 Morphine Sulfate IVPUSH 2 mg Q3H PRN Administration PAIN LEVEL 6-10 Pantoprazole Sodium 40 mg 03/21/19 22:00 04/01/19 09:17 Protonix Iv IVPUSH 40 mg BID [facility] Administration Impression 1. ESRD 2. gangrene 3. DM 4. hyperlipidemia 5. HTN 6. gout 7. proteinuria 8. hypotension 9. sepsis 10. resp failure Plan - HD tomorrow - family refused amputation - monitor bp - 3 k bath on HD - cont wound care - pt is doing poorly
--- NOTE | 2019-04-01 12:16 | PN ---
Progress Note, Physician History of Present Illness: EXTUBATED AWAKE, RESPONSIVE ANSWERS SIMPLE QUESTIONS DENIES PAIN AFEBRILE WBC IMPROVED - Current Medication List Current Medications: Active Medications Albumin Human (Albumin Human 25%) 12.5 gm IVPB Q30M [facility] Amino Acids (Prosource No Carb Liquid Pkt) 30 ml NGT TID [facility] Last Admin: 04/01/19 06:17 Dose: 30 ml Apixaban (Eliquis -) 2.5 mg PO BID [facility] Last Admin: 04/01/19 09:17 Dose: 2.5 mg Atorvastatin Calcium (Lipitor -) 20 mg NGT HS [facility] Last Admin: 03/31/19 21:04 Dose: 20 mg Collagenase (Santyl -) 1 applic TP DAILY [facility]; Protocol Last Admin: 04/01/19 09:19 Dose: 1 applic Epoetin Jose (Epogen -) 12,000 unit IVPUSH ONCE ONE Stop: 04/02/19 11:57 Escitalopram Oxalate (Lexapro -) 10 mg NGT DAILY [facility] Last Admin: 04/01/19 09:17 Dose: 10 mg Hydrocortisone (Cortef -) 50 mg PO BID [facility] Last Admin: 04/01/19 10:03 Dose: 50 mg Meropenem 500 mg/ Dextrose 100 mls @ 200 mls/hr IVPB DAILY [facility] Last Admin: 04/01/19 09:19 Dose: 200 mls/hr Propofol (Diprivan -) 1,000,000 mcg in 100 mls @ 2.851 mls/hr IVPB TITR [facility]; Protocol Last Admin: 04/01/19 07:55 Dose: Not Given Fentanyl 500 mcg/ Dextrose 100 mls @ 5 mls/hr IVPB TITR [facility]; Protocol Last Titration: 04/01/19 08:30 Dose: 0 mcg/hr, 0 mls/hr Sodium Chloride (Normal Saline -) 250 mls @ 3,000 mls/hr IV PRN PRN PRN Reason: Hypotension during Dialysis Stop: 04/02/19 11:56 Insulin Aspart (Novolog Vial Sliding Scale -) 1 vial SQ Q6HPO [facility]; Protocol Last Admin: 04/01/19 06:18 Dose: Not Given Metoprolol Tartrate (Lopressor -) 12.5 mg PO BID [facility] Last Admin: 04/01/19 09:19 Dose: Not Given Midodrine (Proamatine -) 10 mg NGT TID-MID [facility] Last Admin: 04/01/19 09:17 Dose: 10 mg Morphine Sulfate (Morphine Sulfate) 2 mg IVPUSH Q3H PRN PRN Reason: PAIN LEVEL 6-10 Last Admin: 03/30/19 15:30 Dose: 2 mg Pantoprazole Sodium (Protonix Iv) 40 mg IVPUSH BID [facility] Last Admin: 04/01/19 09:17 Dose: 40 mg - Objective Vital Signs: Vital Signs Temperature 98.0 F 03/31/19 14:00 Pulse Rate 63 04/01/19 10:32 Respiratory Rate 13 04/01/19 10:00 Blood Pressure 128/69 04/01/19 10:00 O2 Sat by Pulse Oximetry (%) 100 04/01/19 10:32 Constitutional: Yes: No Distress Cardiovascular: Yes: Regular Rate and Rhythm, S1, S2 Respiratory: Yes: Diminished Gastrointestinal: Yes: Normal Bowel Sounds, Soft. No: Tenderness Extremities: Yes: Other (+ NECROTIC MALODOROUS FOOT ULCERS) Labs: CBC, BMP 04/01/19 05:00 04/01/19 05:00 INR, PTT INR 1.22 (0.83-1.09) H 03/27/19 15:30 Fibrinogen 459.0 mg/dL (238-498) 03/27/19 15:30 Assessment/Plan RESP FAILURE S/P EXTUBATION PROBABLE ASP PNEUMONIA ESRD ESBL BACTEREMIA/ SEPSIS +BC 03/11 DISCONTINUE MEROPENEM OBSERVE OFF PROGNOSIS POOR
[2019-04-01] MEDS: MIDODRINE HCL 5 MG TABLET NGT SCH ×3 (14:00→18:59)
[2019-04-01] MEDS: MULTIVIT-MINERALS ORAL LIQUID NGT SCH (14:00)
--- NOTE | 2019-04-01 14:02 | PN ---
Physical Exam: SUBJECTIVE: Overnight, patient did not have any acute events. Patient seen and examined at the bedside. Patient still non-verbal. Breathing improved. Patient was tolerating CPAP mode well and was extubated succesfully. Updated number for Lokesh Silva (father) is . OBJECTIVE: Vital Signs Period Temp Pulse Resp BP Sys/Zamorano Pulse Ox Last 24 Hr 45-76 11-22 107-129/58-71 98-100 GENERAL: AOx0. Occasional grimace to pain. On venti-mask HEAD: Normal with no signs of trauma. EYES: PERRL NECK: Trachea midline, full range of motion, supple. LUNGS: Breath sounds equal, coarse breath sounds bilaterally, no wheezes noted. HEART: Regular rate and rhythm, S1, S2 without murmur, rub or gallop. ABDOMEN: Soft, nontender, nondistended, normoactive bowel sounds, no guarding, no rebound, no hepatosplenomegaly, no masses. EXTREMITIES: 2+ pulses, warm, well-perfused, 3+ edema bilaterally upper and lower extremities NEUROLOGICAL: unable to assess due to sedation SKIN: Warm, dry, extensive necrosing wounds on feet bilaterally. Unstagable sacral ulcer Laboratory Results - last 24 hr 03/31/19 04/01/19 04/01/19 17:30 00:01 05:00 WBC 12.9 H RBC 2.69 L Hgb 8.1 L Hct 25.6 L MCV 95.1 MCH 30.0 MCHC 31.5 L RDW 19.9 H Plt Count 99 L D MPV 12.4 H Sodium Potassium Chloride Carbon Dioxide Anion Gap BUN Creatinine Est GFR (CKD-EPI)AfAm Est GFR (CKD-EPI)NonAf POC Glucometer 136 143 Random Glucose Calcium Total Bilirubin AST ALT Alkaline Phosphatase Total Protein Albumin 04/01/19 04/01/19 05:00 12:20 WBC RBC Hgb Hct MCV MCH MCHC RDW Plt Count MPV Sodium 137 Potassium 3.7 Chloride 101 Carbon Dioxide 29 Anion Gap 7 L BUN 43.7 H Creatinine 1.6 H Est GFR (CKD-EPI)AfAm 48.47 Est GFR (CKD-EPI)NonAf 41.82 POC Glucometer 103 Random Glucose 161 H Calcium 6.3 L* Total Bilirubin 0.8 AST 40 H ALT 21 Alkaline Phosphatase 735 H Total Protein 4.6 L Albumin 1.2 L Active Medications Generic Name Dose Route Start Last Admin Trade Name Kassandra PRN Reason Stop Dose Admin Albumin Human 12.5 gm 04/02/19 12:00 Albumin Human 25% IVPB Q30M [facility] Amino Acids 30 ml 03/23/19 22:00 04/01/19 06:17 Prosource No Carb Liquid Pkt NGT 30 ml TID [facility] Administration Apixaban 2.5 mg 03/29/19 22:00 04/01/19 09:17 Eliquis - PO 2.5 mg BID [facility] Administration Atorvastatin Calcium 20 mg 03/23/19 22:00 03/31/19 21:04 Lipitor - NGT 20 mg HS [facility] Administration Collagenase 1 applic 03/22/19 10:00 04/01/19 09:19 Santyl - TP 1 applic DAILY [facility] Administration Protocol Epoetin Jose 12,000 unit 04/02/19 11:56 Epogen - IVPUSH 04/02/19 11:57 ONCE ONE Escitalopram Oxalate 10 mg 03/24/19 10:00 04/01/19 09:17 Lexapro - NGT 10 mg DAILY [facility] Administration Hydrocortisone 50 mg 03/25/19 10:00 04/01/19 10:03 Cortef - PO 50 mg BID [facility] Administration Propofol 1,000,000 mcg in 100 mls @ 2.851 mls/hr 03/27/19 03:45 04/01/19 07: 55 Diprivan - IVPB Not Given TITR [facility] Protocol 5 MCG/KG/MIN Fentanyl 500 mcg/ Dextrose 100 mls @ 5 mls/hr 03/29/19 10:45 04/01/19 08:30 IVPB 0 mcg/hr TITR [facility] 0 mls/hr Titration Protocol 25 MCG/HR Sodium Chloride 250 mls @ 3,000 mls/hr 04/01/19 11:56 Normal Saline - IV 04/02/19 11:56 PRN PRN Hypotension during Dialysis Insulin Aspart 1 vial 03/22/19 00:00 04/01/19 06:18 Novolog Vial Sliding Scale - SQ Not Given Q6HPO [facility] Protocol Metoprolol Tartrate 12.5 mg 03/26/19 10:00 04/01/19 09:19 Lopressor - PO Not Given BID [facility] Midodrine 10 mg 03/23/19 18:00 04/01/19 09:17 Proamatine - NGT 10 mg TID-MID [facility] Administration Morphine Sulfate 2 mg 03/27/19 01:32 03/30/19 15:30 Morphine Sulfate IVPUSH 2 mg Q3H PRN Administration PAIN LEVEL 6-10 Pantoprazole Sodium 40 mg 03/21/19 22:00 04/01/19 09:17 Protonix Iv IVPUSH 40 mg BID [facility] Administration ASSESSMENT/PLAN: Ren Silva is a 73 year old male with a PMHx of ESRD (M, W, F), PVD, HLD, DM , COPD, B/L gangrenous foot ulcer admitted to the ICU after a rapid response was called and the patient was found to be in acute hypercapneic respiratory failure. Acute respiratory failure Aspiration Pneumonitis R/o ARDS B/l lower extremity gangrene ESRD Hypokalemia DM HLD HTN Neurologic -not alert or oriented -eyes not tracking -not sedated, extubated today Cardiovascular -BP low normal with maps continually ~64-70 off pressors -on eliquis for afib, however patient remains in sinus rhythm -rate control with BB as needed, monitor BP -on midodrine for BP - continue to monitor hemodynamics - home lipitor 20mg - lopressor 12.5 mg bid Pulmonary -pulmonary status was compromised by aspiration, CXR revealed complete white out of R lung, improved - extubated, tolerating Ventimask well. -patient already on meropenem -on hydrocortisone 50 BID -duonebs q6h prn - wean as tolerated Gastrointestinal -tube feeds held, will continue to assess for aspiration -on protonix IV BID for prior suspected GIB - NG tube placed for medication - liver enzymes improving Renal -patient getting dialysis per nephro, will receive today -hypoalbuminemic due to malnutrition, which is likely the cause of patient third spacing his fluids Dr. Henriquez consulted recs appreciated Heme/Onc -anemia likely 2/2 ESRD and decreased erythropoitin -continue EPO -maintain H&H above 7 by transfusions as needed - thrombocytopenia resolving - Elliquis restarted 2.5mg bid ENDOCRINE - BGM ACHS - ISS INFECTIOUS DISEASE - extensive wounds on feet - continue meropenem - Dr. Multani consulted recs appreciated - continue Santyl to wounds PSYCHIATRY - on home lexapro Prophylaxis -Eliquis 2.5mg BID -Protonix IV while on AC and pressors -bacid F/E/N - no fluids - continue to monitor lytes - feeds resumed at 20ml/hr, monitor for aspiration LINES - R permacath - L subclavian line placed 03/27 CODE - full code Disposition -we will continue to follow patient in ICU - Dr. Camarillo spoke with father Lokesh Silva who was explained the current status of the patient, he states that he will have to have a discussion with his son Butch, and that he will be able to come to the hospital within the next week to discuss plans of care. On further discussion, he states that "we just have to just let God do his will, it is an unfortunate state of events". The updated number for Lokesh Silva . Phone may be answered by home health aide, however on request to speak with Lokesh, you will be connected. CASE DISCUSSED WITH DR. HAGEN AND PRIMARY TEAM MEKHI MARTINEZ DO - PGY-1 INTERNAL MEDICINE Problem List - Problems (1) ESBL E. coli carrier Code(s): Z22.39 - CARRIER OF OTHER SPECIFIED BACTERIAL DISEASES (2) ESRD (end stage renal disease) on dialysis Code(s): N18.6 - END STAGE RENAL DISEASE; Z99.2 - DEPENDENCE ON RENAL DIALYSIS (3) Gangrene of both feet Code(s): I96 - GANGRENE, NOT ELSEWHERE CLASSIFIED (4) Gram negative sepsis Code(s): A41.50 - GRAM-NEGATIVE SEPSIS, UNSPECIFIED (5) Pressure ulcer Code(s): L89.90 - PRESSURE ULCER OF UNSPECIFIED SITE, UNSPECIFIED STAGE (6) Sacral decubitus ulcer Code(s): L89.159 - PRESSURE ULCER OF SACRAL REGION, UNSPECIFIED STAGE (7) Anemia Code(s): D64.9 - ANEMIA, UNSPECIFIED (8) CKD (chronic kidney disease) Code(s): N18.9 - CHRONIC KIDNEY DISEASE, UNSPECIFIED (9) HLD (hyperlipidemia) Code(s): E78.5 - HYPERLIPIDEMIA, UNSPECIFIED (10) HTN (hypertension) Code(s): I10 - ESSENTIAL (PRIMARY) HYPERTENSION Qualifiers: Hypertension type: essential hypertension Qualified Code(s): I10 - Essential (primary) hypertension (11) Wound of foot Code(s): S91.309A - UNSPECIFIED OPEN WOUND, UNSPECIFIED FOOT, INITIAL ENCOUNTER Visit type - Emergency Visit Emergency Visit: No - New Patient This patient is new to me today: No - Critical Care Critical Care patient: Yes Total Critical Care Time (in minutes): 38 Critical Care Statement: The care of this patient involved high complexity decision making to prevent further life threatening deterioration of the patient 's condition and/or to evaluate & treat vital organ system(s) failure or risk of failure.
[2019-04-01 16:07] VITALS: BMI 29.0
--- NOTE | 2019-04-01 17:14 | PN ---
Physical Exam: SUBJECTIVE: Patient seen and examined at the bedside this AM. No acute events overnight. Pt off sedation later on in day and extubation occured. OBJECTIVE: Vital Signs Period Temp Pulse Resp BP Sys/Zamorano Pulse Ox Last 24 Hr 45-85 11-22 100-129/58-71 98-100 GENERAL: The patient was intubated. RAAS -5. LUNGS: decreased breath sounds equal, no wheezes, no crackles, no accessory muscle use. HEART: Regular rate and rhythm, S1, S2 without murmur, rub or gallop. ABDOMEN: Soft, nontender, nondistended, normoactive bowel sounds, no guarding, no rebound, no hepatosplenomegaly, no masses. EXTREMITIES: b/l gangrenous ulcers lower extremities, warm, anasarca throughout upper and lower extremities. Laboratory Results - last 24 hr CBC, BMP 04/01/19 05:00 04/01/19 05:00 Active Medications Current Medications Albumin Human (Albumin Human 25%) 12.5 gm IVPB Q30M [facility] Amino Acids (Prosource No Carb Liquid Pkt) 30 ml NGT TID [facility] Last Admin: 04/01/19 14:00 Dose: 30 ml Apixaban (Eliquis -) 2.5 mg PO BID [facility] Last Admin: 04/01/19 09:17 Dose: 2.5 mg Atorvastatin Calcium (Lipitor -) 20 mg NGT HS [facility] Last Admin: 03/31/19 21:04 Dose: 20 mg Collagenase (Santyl -) 1 applic TP DAILY [facility]; Protocol Last Admin: 04/01/19 09:19 Dose: 1 applic Epoetin Jose (Epogen -) 12,000 unit IVPUSH ONCE ONE Stop: 04/02/19 11:57 Escitalopram Oxalate (Lexapro -) 10 mg NGT DAILY [facility] Last Admin: 04/01/19 09:17 Dose: 10 mg Hydrocortisone (Cortef -) 50 mg PO BID [facility] Last Admin: 04/01/19 10:03 Dose: 50 mg Propofol (Diprivan -) 1,000,000 mcg in 100 mls @ 2.851 mls/hr IVPB TITR [facility]; Protocol Last Admin: 04/01/19 07:55 Dose: Not Given Fentanyl 500 mcg/ Dextrose 100 mls @ 5 mls/hr IVPB TITR [facility]; Protocol Last Titration: 04/01/19 08:30 Dose: 0 mcg/hr, 0 mls/hr Sodium Chloride (Normal Saline -) 250 mls @ 3,000 mls/hr IV PRN PRN PRN Reason: Hypotension during Dialysis Stop: 04/02/19 11:56 Insulin Aspart (Novolog Vial Sliding Scale -) 1 vial SQ Q6HPO [facility]; Protocol Last Admin: 04/01/19 12:00 Dose: Not Given Metoprolol Tartrate (Lopressor -) 12.5 mg PO BID [facility] Last Admin: 04/01/19 09:19 Dose: Not Given Midodrine (Proamatine -) 10 mg NGT TID-MID [facility] Last Admin: 04/01/19 15:56 Dose: Not Given Morphine Sulfate (Morphine Sulfate) 2 mg IVPUSH Q3H PRN PRN Reason: PAIN LEVEL 6-10 Last Admin: 03/30/19 15:30 Dose: 2 mg Pantoprazole Sodium (Protonix Iv) 40 mg IVPUSH BID [facility] Last Admin: 04/01/19 09:17 Dose: 40 mg ASSESSMENT/PLAN: This is a 73 y/o M w a PMH od ESRD on dialysis, PVD, HLD, DM, COPD, b/l gangrenous legs admitted for septic shock 2/2 b/l foot gangrene and prolonged hospitalization now in ICU s/p aspiration and now intubated. #Acute hypoxic respiratory failure with hypercapnia due to aspiration PNA - Pt recently tolerated CPAP so pt has been extubated and off sedation. - Pt on meropenem on his 37th dose. - on hydrocortisone 50 BID for adrenal insufficiency during septic shock. continuing to taper. -duonebs q6hprn - Head of bed elevations - c/w ICU monitoring #Septic shock resolved - MRSA, ESBL, pseudomonas, E coli B.C.'s on 03/11/19 02/21/19- Gangrenous foot Cx- ESBL, MOrganella morganii, BC's- proteus mirabilis. - septic shock due to MAP<65 despite fluids. - Treating with meropenem for the ESBL gangrenous legs (dose 37). #Proteus, ESBL, E coli bacteremia - Cx's positive on this - on meropenem dose 37 continue it as per ID. #Infected sacral decubitus ulcers and scrotal ulcer - monitoring the ulcers and keeping it dry and clean. #infected gangrenous ulcers on feet - continue to manage as per wound care and keep area dressed in gauze and dry. #Afib w RVR - eliquis has been restarted for afib due to PLT's uptrending. - rate control with metoprolol 12.5 BID as needed and hold if systolic BP <90, HR<60, or diastolic <60. - on midodrine for BP #ESRD -As per renal -HD done yesterday - will monitor bp - will dialyze again tomorrow - continue tube feeds - 3 k bath on HD #Thrombocytopenia/Anemia -Anemia due to ESRD w decreased EPO from renal malproduction. Continue EPO 12, 000 units. -Maintain Hemoglobin >7 by transfusions as needed. -Thrombocytopenia- if bleeding occurs with a PLT <50 then we will transfuse, if <10 we will transfuse even without the presence of bleeding. - PLT'S 91 much higher than before will continue to monitor. -restarted eliquis due to PLT level coming back up. #Diabetes - has DM - Blood glucose monitoring - Insulin sliding scale #Neuro/Seizure hx - Keppra was stopped on 03/13 but can be resumed in event of seizure. #FEN - will continue monitoring lytes and replete as necessary. - no fluids indicated at this time. - Pt has been NPO due to aspiration potential and tube feeds have been held and NG tube has been placed for medications. Prophylaxis- DVT: on eliquis 2.5 GI: Protonix -Bacid Visit type - Emergency Visit Emergency Visit: No - New Patient This patient is new to me today: No - Critical Care Critical Care patient: Yes Total Critical Care Time (in minutes): 45 Critical Care Statement: The care of this patient involved high complexity decision making to prevent further life threatening deterioration of the patient 's condition and/or to evaluate & treat vital organ system(s) failure or risk of failure. - Discharge Referral Referred to [facility] Med [facility].C[facility] No ATTENDING PHYSICIAN STATEMENT I saw and evaluated the patient. I reviewed the resident's note and discussed the case with the resident. I agree with the resident's findings and plan as documented. SUBJECTIVE: OBJECTIVE: ASSESSMENT AND PLAN:
--- NOTE | 2019-04-01 17:28 | PN ---
Teaching Attending Note Name of Resident: Eliseo Ibrahim ATTENDING PHYSICIAN STATEMENT I saw and evaluated the patient. I reviewed the resident's note and discussed the case with the resident. I agree with the resident's findings and plan as documented. SUBJECTIVE: Patient continues to be in ICU. Extubated now, answers questions. OBJECTIVE: Vital Signs Temperature 98.0 F 03/31/19 14:00 Pulse Rate 85 04/01/19 16:00 Respiratory Rate 13 04/01/19 10:00 Blood Pressure 100/59 L 04/01/19 16:00 O2 Sat by Pulse Oximetry (%) 100 04/01/19 10:32 GENERAL: The patient is extubated today HEAD: Normal with no signs of trauma. EYES: extraocular movements intact, sclera anicteric, ENT: extubated . NECK: Trachea midline. supple LUNGS: extubated, supple HEART: RRR , S1, S2 without murmur, rub or gallop. ABDOMEN: Soft, NT, ND, BS positive, no guarding, no rebound, no hepatosplenomegaly, no masses. EXTREMITIES: gangrenous lower extremities , 3 plus edema SKIN: Warm. CBCD WBC 12.9 K/mm3 (4.0-10.0) H 04/01/19 05:00 RBC 2.69 M/mm3 (4.00-5.60) L 04/01/19 05:00 Hgb 8.1 GM/dL (11.7-16.9) L 04/01/19 05:00 Hct 25.6 % (35.4-49) L 04/01/19 05:00 MCV 95.1 fl (80-96) 04/01/19 05:00 MCHC 31.5 g/dl (32.0-35.9) L 04/01/19 05:00 RDW 19.9 % (11.9-15.9) H 04/01/19 05:00 Plt Count 99 K/MM3 (134-434) L D 04/01/19 05:00 MPV 12.4 fl (7.5-11.1) H 04/01/19 05:00 CMP Sodium 137 mmol/L (136-145) 04/01/19 05:00 Potassium 3.7 mmol/L (3.5-5.1) 04/01/19 05:00 Chloride 101 mmol/L (98-107) 04/01/19 05:00 Carbon Dioxide 29 mmol/L (21-32) 04/01/19 05:00 Anion Gap 7 MMOL/L (8-16) L 04/01/19 05:00 BUN 43.7 mg/dL (7-18) H 04/01/19 05:00 Creatinine 1.6 mg/dL (0.55-1.3) H 04/01/19 05:00 Random Glucose 161 mg/dL (74-106) H 04/01/19 05:00 Calcium 6.3 mg/dL (8.5-10.1) L* 04/01/19 05:00 Total Bilirubin 0.8 mg/dL (0.2-1) 04/01/19 05:00 AST 40 U/L (15-37) H 04/01/19 05:00 ALT 21 U/L (13-61) 04/01/19 05:00 Alkaline Phosphatase 735 U/L (45-117) H 04/01/19 05:00 Total Protein 4.6 g/dl (6.4-8.2) L 04/01/19 05:00 Albumin 1.2 g/dl (3.4-5.0) L 04/01/19 05:00 CARDIAC ENZYMES Troponin I < 0.02 ng/ml (0.00-0.05) 02/21/19 15:10 Current Medications Generic Name Dose Route Start Last Admin Trade Name Freq PRN Reason Stop Dose Admin Albumin Human 12.5 gm 04/02/19 12:00 Albumin Human 25% IVPB Q30M [facility] Amino Acids 30 ml 03/23/19 22:00 04/01/19 14:00 Prosource No Carb Liquid Pkt NGT 30 ml TID [facility]TE[facility] Administration Apixaban 2.5 mg 03/29/19 22:00 04/01/19 09:17 Eliquis - PO 2.5 mg BID [facility] Administration Atorvastatin Calcium 20 mg 03/23/19 22:00 03/31/19 21:04 Lipitor - NGT 20 mg HS [facility]TE[facility] Administration Collagenase 1 applic 03/22/19 10:00 04/01/19 09:19 Santyl - TP 1 applic DAILY [facility]TE[facility] Administration Protocol Epoetin Jose 12,000 unit 04/02/19 11:56 Epogen - IVPUSH 04/02/19 11:57 ONCE ONE Escitalopram Oxalate 10 mg 03/24/19 10:00 04/01/19 09:17 Lexapro - NGT 10 mg DAILY [facility] Administration Hydrocortisone 50 mg 03/25/19 10:00 04/01/19 10:03 Cortef - PO 50 mg BID [facility] Administration Propofol 1,000,000 mcg in 100 mls @ 2.851 mls/hr 03/27/19 03:45 04/01/19 07: 55 Diprivan - IVPB Not Given TITR [facility]TE[facility] Protocol 5 MCG/KG/MIN Fentanyl 500 mcg/ Dextrose 100 mls @ 5 mls/hr 03/29/19 10:45 04/01/19 08:30 IVPB 0 mcg/hr TITR CHANTELL 0 mls/hr Titration Protocol 25 MCG/HR Sodium Chloride 250 mls @ 3,000 mls/hr 04/01/19 11:56 Normal Saline - IV 04/02/19 11:56 PRN PRN Hypotension during Dialysis Insulin Aspart 1 vial 03/22/19 00:00 04/01/19 12:00 Novolog Vial Sliding Scale - SQ Not Given Q6HPO [facility] Protocol Metoprolol Tartrate 12.5 mg 03/26/19 10:00 04/01/19 09:19 Lopressor - PO Not Given BID [facility] Midodrine 10 mg 03/23/19 18:00 04/01/19 15:56 Proamatine - NGT Not Given TID-MID [facility] Morphine Sulfate 2 mg 03/27/19 01:32 03/30/19 15:30 Morphine Sulfate IVPUSH 2 mg Q3H PRN Administration PAIN LEVEL 6-10 Pantoprazole Sodium 40 mg 03/21/19 22:00 04/01/19 09:17 Protonix Iv IVPUSH 40 mg BID [facility] Administration Home Medications Medication Instructions Recorded Albuterol 2.5/Ipratropium 0.5 1 amp NEB Q6H PRN #0 amp 07/12/17 [Duoneb -] Allopurinol [Zyloprim -] 100 mg PO DAILY tablet 07/12/17 Atorvastatin Ca [Lipitor] 20 mg PO HS tablet 07/12/17 Collagenase Clostridium Hist. 1 applic TP DAILY tube 09/06/18 [Santyl -] Albuterol Sulfate [Proair Hfa] 2 puff IH Q6H PRN 10/29/18 Escitalopram Oxalate [Lexapro -] 10 mg PO DAILY 10/29/18 Folic Acid/Vit B Complex and C 1 each PO DAILY 10/29/18 [Dialyvite Tablet] Midodrine HCl 10 mg PO MOWEFR 10/29/18 Sevelamer Carbonate [Renvela -] 1,600 mg PO TID 10/29/18 Tamsulosin HCl [Flomax] 0.4 mg PO HS 10/29/18 Insulin Sliding Scale [Novolog 1 vial SQ TIDAC #1 vial 11/17/18 Vial Sliding Scale -] Apixaban [Eliquis -] 5 mg PO BID #30 tablet MDD 2 11/19/18 Collagenase Clostridium Hist. 1 applic TP DAILY #1 tube 01/17/19 [Santyl -] Amoxicillin/Potassium Clav 1 each PO DAILY #7 tablet 02/06/19 [Augmentin 500-125 Tablet] Megestrol Acetate Oral Susp 400 mg PO DAILY #20 cup 02/06/19 [Megace Liquid -] Protein Supplement [Prosource] 275 gm PO TID #60 powder 02/06/19 Lactobacillus Acidophilus [Bacid -] 1 tab PO DAILY #60 tab 02/19/19 Midodrine HCl [Proamatine -] 5 mg PO SuTuThSa #60 tablet 02/19/19 traMADol HCL [Ultram -] 50 mg PO Q6H PRN #60 tablet MDD 4 02/19/19 Microbiology 03/24/19 15:40 Blood - Peripheral Venous Blood Culture - Final NO GROWTH AFTER 5 DAYS INCUBATION 03/24/19 16:09 Blood - Peripheral Venous Blood Culture - Final NO GROWTH AFTER 5 DAYS INCUBATION 03/11/19 05:30 Blood - Peripheral Venous Blood Culture - Final NO GROWTH AFTER 5 DAYS INCUBATION 03/11/19 10:15 Sputum - Endotrachea Suction/Ventilator Gram Stain - Final 03/11/19 10:15 Sputum - Endotrachea Suction/Ventilator Sputum Culture - Final Mr S Aureus Escherichia Coli Esbl Injection Press Operator Acinetobacter Baumannii/Haemol Pseudomonas Aeruginosa 03/11/19 06:45 Blood - Peripheral Venous Blood Culture - Final Escherichia Coli Esbl Injection Press Operator 02/23/19 11:50 Blood - Peripheral Venous Blood Culture - Final NO GROWTH AFTER 5 DAYS INCUBATION 02/23/19 11:50 Blood - Peripheral Venous Blood Culture - Final NO GROWTH AFTER 5 DAYS INCUBATION 02/21/19 13:16 Blood - Peripheral Venous Blood Culture - Final Proteus Mirabilis Prevotella Melaninogenica 02/21/19 16:30 Foot - Left Heel Gram Stain - Final 02/21/19 16:30 Foot - Left Heel Wound Culture - Final Escherichia Coli Esbl Injection Press Operator Morganella Morganii 02/21/19 15:40 Blood - Peripheral Venous Blood Culture - Final Proteus Mirabilis 02/21/19 14:50 Urine - Urine - Catheterized Urine Culture - Final NO GROWTH OBTAINED ASSESSMENT AND PLAN: Patient is a 73 y/o man with h/o dementia, CVA, DM, COPD, ESRD, gout, HTN, HLP, recent admission 01/31-02/19 during which he was treated for sepsis due to infected b/l feet ulcers/gangrene. [facility] due to poor po intake, and non healing wounds Patient is extubated now # Acute hypoxic resp failure/aspiration s/p extubation x2 now continue to monitor, further care per ICU team. # s/p Septic shock resolved cont hydrocortisone at 50 BID ,off levophed now # Infected sacral decub and scrotal ulcer off IV antibiotic now as per ID. OBSERVE OFF # Proteus bacteremia ,ESBL producing E coli bacteremia off antibiotic , meropenem. # ESRD on HD per schedule , on Midodrine , had bedside HD, tolerated, nephro # DM SSI # Infected gangrenous of LEs with open wounds off Abx as per ID. #anemia #A fib on eliquis continue #thrombocytopenia improving 99k now # hx of seizure keppra stopped on 03/13 , if seizures recur then can resume PROGNOSIS POOR
[2019-04-01] MEDS: ATORVASTATIN CA 20 MG TABLET (FP) NGT SCH (22:01)
[2019-04-02] MEDS: INSULIN SLIDING SCALE (NOVOLOG) 1 VIAL SQ SCH ×4 (00:36→19:46)
[2019-04-02] MEDS: AMINO ACIDS/PROTEIN HYDROLYS 30 ML LIQUID.PKT NGT SCH ×3 (06:24→21:57)
[2019-04-02] MEDS ORDERED: SODIUM CHLORIDE 250 ML IV PRN (07:11)
[2019-04-02] MEDS ORDERED: PT OWN MED DRAWER 7, Y5N ONE ×5 (07:37→21:52)
[2019-04-02] MEDS ORDERED: EPOETIN ALFA 10,000 UNIT, EPOETIN ALFA 2,000 UNIT IVPUSH ONE (08:00)
[2019-04-02] MEDS: ALBUMIN HUMAN 25% 12.5 GM/50 ML VIAL IVPB SCH ×4 (08:14→09:46)
[2019-04-02 08:32] LABS: HEMATOCRIT 26.8 % (35.4-49); HEMOGLOBIN 8.5 GM/dL (11.7-16.9); MCH 29.9 pg (25.7-33.7); MCHC 31.8 g/dl (32.0-35.9); MEAN CELL VOLUME 93.9 fl (80-96); MEAN PLT VOLUME 11.8 fl (7.5-11.1); PLATELET COUNT 119 K/MM3 (134-434); RBC 2.85 M/mm3 (4.00-5.60); WHITE BLOOD COUNT 10.3 K/mm3 (4.0-10.0)
--- NOTE | 2019-04-02 08:46 | PN ---
Teaching Attending Note Name of Resident: Michele Mchugh ATTENDING PHYSICIAN STATEMENT I saw and evaluated the patient. I reviewed the resident's note and discussed the case with the resident. I agree with the resident's findings and plan as documented. SUBJECTIVE: Patient is in ICU extubated with no acute distress, on VM. answers to questions. OBJECTIVE: Vital Signs Temperature 98.2 F 04/02/19 07:15 Pulse Rate 86 04/02/19 07:50 Respiratory Rate 18 04/02/19 07:50 Blood Pressure 126/62 04/02/19 07:50 O2 Sat by Pulse Oximetry (%) 100 04/02/19 00:20 GENERAL: The patient is extubated on VM HEAD: Normal with no signs of trauma. EYES: extraocular movements intact, sclera anicteric, ENT: extubated . NECK: Trachea midline. supple LUNGS: extubated, supple HEART: RRR , S1, S2 without murmur, rub or gallop. ABDOMEN: Soft, NT, ND, BS positive, no guarding, no rebound, no hepatosplenomegaly, no masses. EXTREMITIES: gangrenous lower extremities , 3 plus edema SKIN: Warm. WBC 10.3 K/mm3 (4.0-10.0) H 04/02/19 07:20 RBC 2.85 M/mm3 (4.00-5.60) L 04/02/19 07:20 Hgb 8.5 GM/dL (11.7-16.9) L 04/02/19 07:20 Hct 26.8 % (35.4-49) L 04/02/19 07:20 MCV 93.9 fl (80-96) 04/02/19 07:20 MCHC 31.8 g/dl (32.0-35.9) L 04/02/19 07:20 RDW 20.0 % (11.9-15.9) H 04/02/19 07:20 Plt Count 119 K/MM3 (134-434) L D 04/02/19 07:20 MPV 11.8 fl (7.5-11.1) H 04/02/19 07:20 CMP Sodium 137 mmol/L (136-145) 04/01/19 05:00 Potassium 3.7 mmol/L (3.5-5.1) 04/01/19 05:00 Chloride 101 mmol/L (98-107) 04/01/19 05:00 Carbon Dioxide 29 mmol/L (21-32) 04/01/19 05:00 Anion Gap 7 MMOL/L (8-16) L 04/01/19 05:00 BUN 43.7 mg/dL (7-18) H 04/01/19 05:00 Creatinine 1.6 mg/dL (0.55-1.3) H 04/01/19 05:00 Random Glucose 161 mg/dL (74-106) H 04/01/19 05:00 Calcium 6.3 mg/dL (8.5-10.1) L* 04/01/19 05:00 Total Bilirubin 0.8 mg/dL (0.2-1) 04/01/19 05:00 AST 40 U/L (15-37) H 04/01/19 05:00 ALT 21 U/L (13-61) 04/01/19 05:00 Alkaline Phosphatase 735 U/L (45-117) H 04/01/19 05:00 Total Protein 4.6 g/dl (6.4-8.2) L 04/01/19 05:00 Albumin 1.2 g/dl (3.4-5.0) L 04/01/19 05:00 CARDIAC ENZYMES Troponin I < 0.02 ng/ml (0.00-0.05) 02/21/19 15:10 Current Medications Generic Name Dose Route Start Last Admin Trade Name Freq PRN Reason Stop Dose Admin Albumin Human 12.5 gm 04/02/19 08:00 04/02/19 08:14 Albumin Human 25% IVPB 04/02/19 09:31 Not Given Q30M [facility] Amino Acids 30 ml 03/23/19 22:00 04/02/19 06:24 Prosource No Carb Liquid Pkt NGT 30 ml TID [facility]ANTELL Administration Apixaban 2.5 mg 03/29/19 22:00 04/01/19 22:01 Eliquis - PO 2.5 mg BID [facility]ANTELL Administration Atorvastatin Calcium 20 mg 03/23/19 22:00 04/01/19 22:01 Lipitor - NGT 20 mg HS [facility]ANTELL Administration Collagenase 1 applic 03/22/19 10:00 04/01/19 09:19 Santyl - TP 1 applic DAILY CHANTELL Administration Protocol Escitalopram Oxalate 10 mg 03/24/19 10:00 04/01/19 09:17 Lexapro - NGT 10 mg DAILY [facility]ANTELL Administration Hydrocortisone 50 mg 03/25/19 10:00 04/01/19 22:28 Cortef - PO 50 mg BID CHANTELL Administration Sodium Chloride 250 mls @ 3,000 mls/hr 04/02/19 07:11 Normal Saline - IV 04/03/19 07:10 PRN PRN Hypotension during Dialysis Insulin Aspart 1 vial 03/22/19 00:00 04/02/19 06:34 Novolog Vial Sliding Scale - SQ Not Given Q6HPO [facility] Protocol Metoprolol Tartrate 12.5 mg 03/26/19 10:00 04/01/19 22:02 Lopressor - PO 12.5 mg BID [facility]ANTELL Administration Midodrine 10 mg 03/23/19 18:00 04/01/19 18:59 Proamatine - NGT 10 mg TID-MID CHANTELL Administration Morphine Sulfate 2 mg 03/27/19 01:32 03/30/19 15:30 Morphine Sulfate IVPUSH 2 mg Q3H PRN Administration PAIN LEVEL 6-10 Pantoprazole Sodium 40 mg 03/21/19 22:00 04/01/19 22:02 Protonix Iv IVPUSH 40 mg BID CHANTELL Administration Home Medications Medication Instructions Recorded RX: Albuterol 2.5/Ipratropium 0.5 1 amp NEB Q6H PRN #0 amp 07/12/17 [Duoneb -] RX: Allopurinol [Zyloprim -] 100 mg PO DAILY tablet 07/12/17 RX: Atorvastatin Ca [Lipitor] 20 mg PO HS tablet 07/12/17 RX: Collagenase Clostridium Hist. 1 applic TP DAILY tube 09/06/18 [Santyl -] RX: Albuterol Sulfate [Proair Hfa] 2 puff IH Q6H PRN 10/29/18 RX: Escitalopram Oxalate [Lexapro 10 mg PO DAILY 10/29/18 -] RX: Folic Acid/Vit B Complex and C 1 each PO DAILY 10/29/18 [Dialyvite Tablet] RX: Midodrine HCl 10 mg PO MOWEFR 10/29/18 RX: Sevelamer Carbonate [Renvela -] 1,600 mg PO TID 10/29/18 RX: Tamsulosin HCl [Flomax] 0.4 mg PO HS 10/29/18 RX: Insulin Sliding Scale [Novolog 1 vial SQ TIDAC #1 vial 11/17/18 Vial Sliding Scale -] RX: Apixaban [Eliquis -] 5 mg PO BID #30 tablet MDD 2 11/19/18 RX: Collagenase Clostridium Hist. 1 applic TP DAILY #1 tube 01/17/19 [Santyl -] Amoxicillin/Potassium Clav 1 each PO DAILY #7 tablet 02/06/19 [Augmentin 500-125 Tablet] Megestrol Acetate Oral Susp 400 mg PO DAILY #20 cup 02/06/19 [Megace Liquid -] Protein Supplement [Prosource] 275 gm PO TID #60 powder 02/06/19 RX: Lactobacillus Acidophilus 1 tab PO DAILY #60 tab 02/19/19 [Bacid -] RX: Midodrine HCl [Proamatine -] 5 mg PO SuTuThSa #60 tablet 02/19/19 RX: traMADol HCL [Ultram -] 50 mg PO Q6H PRN #60 tablet MDD 4 02/19/19 \ ASSESSMENT AND PLAN: Patient is a 73 y/o man with h/o dementia, CVA, DM, COPD, ESRD, gout, HTN, HLP, recent admission 01/31-02/19 during which he was treated for sepsis due to infected b/l feet ulcers/gangrene. He was sent from [place] due to poor po intake, and non healing wounds Patient is extubated now on VM. # s/p Acute hypoxic resp failure/aspiration s/p extubation x2 now continue to monitor, further care per ICU team. # s/p Septic shock resolved cont hydrocortisone at 50 BID will switch to daily ,off levophed now # Infected sacral decub and scrotal ulcer off IV antibiotic now as per ID. OBSERVE OFF # Proteus bacteremia ,ESBL producing E coli bacteremia off antibiotic , meropenem. # ESRD on HD per schedule , on Midodrine , had bedside HD, tolerated, nephro # DM SSI # Infected gangrenous of LEs with open wounds off Abx as per ID, dressing changes as directed. #A fib on eliquis continue #thrombocytopenia improving 99k-->119K improving # hx of seizure keppra stopped on 03/13 , if seizures recur then can resume PROGNOSIS Guarded
[2019-04-02 09:22] LABS: BLOOD UREA NITROGEN 56.3 mg/dL (7-18); CREATININE 1.9 mg/dL (0.55-1.3); POTASSIUM 4.1 mmol/L (3.5-5.1)
[2019-04-02 09:52] LABS: CALCIUM 6.5 mg/dL (8.5-10.1)
[2019-04-02] MEDS: METOPROLOL TARTRATE 25 MG TABLET (FP) PO SCH ×2 (10:55→21:57)
[2019-04-02] MEDS: PANTOPRAZOLE SODIUM 40 MG VIAL IVPUSH SCH ×2 (10:55→21:57)
[2019-04-02] MEDS: ESCITALOPRAM OXALATE 10 MG TABLET (FP) NGT SCH (11:00)
[2019-04-02] MEDS: APIXABAN 2.5 MG TABLET PO SCH ×2 (11:03→21:56)
[2019-04-02] MEDS: HYDROCORTISONE 20 MG TABLET PO SCH (11:04)
[2019-04-02] MEDS: MULTIVIT-MINERALS ORAL LIQUID NGT SCH (11:05)
[2019-04-02] MEDS: COLLAGENASE CLOSTRIDIUM HIST. 30 GRAMS TUBE TP SCH (11:05)
--- NOTE | 2019-04-02 11:10 | PN ---
Teaching Attending Note Name of Resident: Sarina Estrada ATTENDING PHYSICIAN STATEMENT I saw and evaluated the patient. I reviewed the resident's note and discussed the case with the resident. I agree with the resident's findings and plan as documented. SUBJECTIVE: Pt seen and examined in the ICU. Extubated yesterday without incident. Saturating well on ventimask. Actually much more alert and answering some questions. OBJECTIVE: Vital Signs Period Temp Pulse Resp BP Sys/Zamorano Pulse Ox Last 24 Hr 97.6 F-98.2 F 67-95 12-27 100-134/59-82 96-100 Intake & Output 03/30/19 03/31/19 04/01/19 04/02/19 23:59 23:59 23:59 23:59 Intake Total 483 1941 215 840 Output Total 0 Balance 483 1941 215 840 Weight 89.902 kg 87.906 kg 86.9 kg 87.657 kg Gen: NAD at rest Heart: RRR Lung: decreased breath sounds at the bases Abd: soft, nontender Ext: + edema, dressings wet CBC, BMP 04/02/19 07:20 04/02/19 07:20 Active Medications Amino Acids (Prosource No Carb Liquid Pkt) 30 ml NGT TID [facility] Last Admin: 04/02/19 06:24 Dose: 30 ml Apixaban (Eliquis -) 2.5 mg PO BID [facility] Last Admin: 04/02/19 11:03 Dose: 2.5 mg Atorvastatin Calcium (Lipitor -) 20 mg NGT HS [facility] Last Admin: 04/01/19 22:01 Dose: 20 mg Collagenase (Santyl -) 1 applic TP DAILY [facility]; Protocol Last Admin: 04/02/19 11:05 Dose: 1 applic Escitalopram Oxalate (Lexapro -) 10 mg NGT DAILY [facility] Last Admin: 04/02/19 11:00 Dose: 10 mg Hydrocortisone (Cortef -) 50 mg PO DAILY [facility] Last Admin: 04/02/19 11:04 Dose: 50 mg Sodium Chloride (Normal Saline -) 250 mls @ 3,000 mls/hr IV PRN PRN PRN Reason: Hypotension during Dialysis Stop: 04/03/19 07:10 Insulin Aspart (Novolog Vial Sliding Scale -) 1 vial SQ Q6HPO [facility]; Protocol Last Admin: 07/09/19 06:34 Dose: Not Given Metoprolol Tartrate (Lopressor -) 12.5 mg PO BID [facility] Last Admin: 04/02/19 10:55 Dose: 12.5 mg Midodrine (Proamatine -) 10 mg NGT TID-MID [facility] Last Admin: 04/01/19 18:59 Dose: 10 mg Morphine Sulfate (Morphine Sulfate) 2 mg IVPUSH Q3H PRN PRN Reason: PAIN LEVEL 6-10 Last Admin: 03/30/19 15:30 Dose: 2 mg Pantoprazole Sodium (Protonix Iv) 40 mg IVPUSH BID [facility] Last Admin: 04/02/19 10:55 Dose: 40 mg ASSESSMENT AND PLAN: s/p Acute Respiratory Failure Aspiration Pneumonitis with ARDS physiology Recent ESBL E coli Bacteremia Bilateral Feet Gangrene Infected Decubitus Ulcers Septic Shock ESRD on HD DM HTN Hyperlipidemia h/o CVA - continue antibiotics per ID - continue midodrine - monitoring off pressors, maintain MAP >65 - monitor H/H - local wound care - HD per renal - taper Fio2 to keep Spo2 >90% - aspiration precautions - swallow eval - DVT prophylaxis - continue efforts to discuss medical condition and prognosis with next of kin - given overall poor condition, current medical condition, and overall poor criminal justice program director outcome, recommend palliative/comfort care - continue ICU monitoring critical care time spent in reviewing chart, evaluating patient and formulating plan 35 min
[2019-04-02] MEDS ORDERED: EPOETIN ALFA 2,000 UNIT/1 ML VIAL IVPUSH ONE (11:56)
--- NOTE | 2019-04-02 14:04 | PN ---
Progress Note, Physician History of Present Illness: Pt seen and examined at bedside. He is awake today. He tolerated HD. - Current Medication List Current Medications: Active Medications Amino Acids (Prosource No Carb Liquid Pkt) 30 ml NGT TID [facility] Last Admin: 04/02/19 06:24 Dose: 30 ml Apixaban (Eliquis -) 2.5 mg PO BID [facility] Last Admin: 04/02/19 11:03 Dose: 2.5 mg Atorvastatin Calcium (Lipitor -) 20 mg NGT HS [facility] Last Admin: 04/01/19 22:01 Dose: 20 mg Collagenase (Santyl -) 1 applic TP DAILY [facility]; Protocol Last Admin: 04/02/19 11:05 Dose: 1 applic Escitalopram Oxalate (Lexapro -) 10 mg NGT DAILY [facility] Last Admin: 04/02/19 11:00 Dose: 10 mg Hydrocortisone (Cortef -) 50 mg PO DAILY [facility] Last Admin: 04/02/19 11:04 Dose: 50 mg Sodium Chloride (Normal Saline -) 250 mls @ 3,000 mls/hr IV PRN PRN PRN Reason: Hypotension during Dialysis Stop: 04/03/19 07:10 Insulin Aspart (Novolog Vial Sliding Scale -) 1 vial SQ Q6HPO [facility]; Protocol Last Admin: 04/02/19 13:12 Dose: Not Given Metoprolol Tartrate (Lopressor -) 12.5 mg PO BID [facility] Last Admin: 04/02/19 10:55 Dose: 12.5 mg Midodrine (Proamatine -) 10 mg NGT TID-MID [facility] Last Admin: 04/01/19 18:59 Dose: 10 mg Morphine Sulfate (Morphine Sulfate) 2 mg IVPUSH Q3H PRN PRN Reason: PAIN LEVEL 6-10 Last Admin: 03/30/19 15:30 Dose: 2 mg Pantoprazole Sodium (Protonix Iv) 40 mg IVPUSH BID [facility] Last Admin: 04/02/19 10:55 Dose: 40 mg - Objective Vital Signs: Vital Signs Temperature 97.6 F 04/02/19 12:00 Pulse Rate 67 04/02/19 12:00 Respiratory Rate 28 H 04/02/19 12:00 Blood Pressure 128/69 04/02/19 12:00 O2 Sat by Pulse Oximetry (%) 99 04/02/19 09:00 Constitutional: Yes: Calm Eyes: Yes: Conjunctiva Clear HENT: Yes: Atraumatic Neck: Yes: Supple Cardiovascular: Yes: S1, S2 Respiratory: Yes: On Venti-Mask Gastrointestinal: Yes: Normal Bowel Sounds, Soft Genitourinary: Yes: Incontinence Musculoskeletal: Yes: Muscle Weakness Extremities: Yes: WNL Wound/Incision: Yes: Other (odor from wounds) Neurological: Yes: Confusion Labs: CBC, BMP 04/02/19 07:20 04/02/19 07:20 INR, PTT INR 1.22 (0.83-1.09) H 03/27/19 15:30 Fibrinogen 459.0 mg/dL (238-498) 03/27/19 15:30 Problem List - Problems (1) ESRD (end stage renal disease) on dialysis Code(s): N18.6 - END STAGE RENAL DISEASE; Z99.2 - DEPENDENCE ON RENAL DIALYSIS Assessment/Plan Current Medications Generic Name Dose Route Start Last Admin Trade Name Freq PRN Reason Stop Dose Admin Amino Acids 30 ml 03/23/19 22:00 04/01/19 06:17 Prosource No Carb Liquid Pkt NGT 30 ml TID [facility]ANTELL Administration Apixaban 2.5 mg 03/29/19 22:00 04/01/19 09:17 Eliquis - PO 2.5 mg BID [facility]ANTELL Administration Atorvastatin Calcium 20 mg 03/23/19 22:00 03/31/19 21:04 Lipitor - NGT 20 mg HS [facility]ANTELL Administration Collagenase 1 applic 03/22/19 10:00 04/01/19 09:19 Santyl - TP 1 applic DAILY [facility]ANTELL Administration Protocol Escitalopram Oxalate 10 mg 03/24/19 10:00 04/01/19 09:17 Lexapro - NGT 10 mg DAILY [facility] Administration Hydrocortisone 50 mg 03/25/19 10:00 04/01/19 10:03 Cortef - PO 50 mg BID CHANTELL Administration Meropenem 500 mg/ Dextrose 100 mls @ 200 mls/hr 03/22/19 10:00 04/01/19 09:19 IVPB 200 mls/hr DAILY [facility]ANTELL Administration Propofol 1,000,000 mcg in 100 mls @ 2.851 mls/hr 03/27/19 03:45 04/01/19 07: 55 Diprivan - IVPB Not Given TITR CHANTELL Protocol 5 MCG/KG/MIN Fentanyl 500 mcg/ Dextrose 100 mls @ 5 mls/hr 03/29/19 10:45 04/01/19 08:30 IVPB 0 mcg/hr TITR CHANTELL 0 mls/hr Titration Protocol 25 MCG/HR Insulin Aspart 1 vial 03/22/19 00:00 04/01/19 06:18 Novolog Vial Sliding Scale - SQ Not Given Q6HPO [facility]TE[facility] Protocol Metoprolol Tartrate 12.5 mg 03/26/19 10:00 04/01/19 09:19 Lopressor - PO Not Given BID [facility] Midodrine 10 mg 03/23/19 18:00 04/01/19 09:17 Proamatine - NGT 10 mg TID-MID [facility]TELL Administration Morphine Sulfate 2 mg 03/27/19 01:32 03/30/19 15:30 Morphine Sulfate IVPUSH 2 mg Q3H PRN Administration PAIN LEVEL 6-10 Pantoprazole Sodium 40 mg 03/21/19 22:00 04/01/19 09:17 Protonix Iv IVPUSH 40 mg BID CHANTELL Administration Impression 1. ESRD 2. gangrene 3. DM 4. hyperlipidemia 5. HTN 6. gout 7. proteinuria 8. hypotension 9. sepsis 10. resp failure Plan - HD today - pt tolerated - cont feeds - discussed with ICU team - 3 k bath on HD - cont wound care - pt is doing poorly
[2019-04-02] MEDS: MIDODRINE HCL 5 MG TABLET NGT SCH ×3 (14:13→19:30)
--- NOTE | 2019-04-02 14:16 | PN ---
Physical Exam: SUBJECTIVE: Patient seen and examined by me on 04/02/2019. No acute events overnight. The patient was extubated on 04/01/2019 and is saturating well with VM. Patient alert and talking, states he is comfortable and not in any pain. OBJECTIVE: Vital Signs Period Temp Pulse Resp BP Sys/Zamorano Pulse Ox Last 24 Hr 97.6 F-98.2 F 67-95 12-28 100-134/59-82 96-100 GENERAL: Alert, oriented to self, location, and season. On venti-mask HEAD: Normal with no signs of trauma. EYES: PERRL NECK: Trachea midline, full range of motion, supple. LUNGS: Breath sounds equal, coarse breath sounds bilaterally, no wheezes noted. HEART: Regular rate and rhythm, S1, S2 without murmur, rub or gallop. ABDOMEN: Soft, nontender, nondistended, normoactive bowel sounds, no guarding, no rebound, no hepatosplenomegaly, no masses. EXTREMITIES: 2+ pulses, warm, well-perfused, 3+ edema bilaterally upper and lower extremities NEUROLOGICAL: unable to assess due to sedation SKIN: Warm, dry, extensive necrosing wounds on feet bilaterally. Unstagable sacral ulcer (not examined today) Laboratory Results - last 24 hr 04/01/19 04/02/19 04/02/19 18:43 00:35 06:30 WBC RBC Hgb Hct MCV MCH MCHC RDW Plt Count MPV Sodium Potassium Chloride Carbon Dioxide Anion Gap BUN Creatinine Est GFR (CKD-EPI)AfAm Est GFR (CKD-EPI)NonAf POC Glucometer 90 116 111 Random Glucose Calcium 04/02/19 04/02/19 04/02/19 07:20 07:20 12:50 WBC 10.3 H RBC 2.85 L Hgb 8.5 L Hct 26.8 L MCV 93.9 MCH 29.9 MCHC 31.8 L RDW 20.0 H Plt Count 119 L D MPV 11.8 H Sodium 136 Potassium 4.1 Chloride 100 Carbon Dioxide 26 Anion Gap 10 BUN 56.3 H Creatinine 1.9 H Est GFR (CKD-EPI)AfAm 39.37 Est GFR (CKD-EPI)NonAf 33.97 POC Glucometer 86 Random Glucose 119 H Calcium 6.5 L* Active Medications Generic Name Dose Route Start Last Admin Trade Name Freq PRN Reason Stop Dose Admin Amino Acids 30 ml 03/23/19 22:00 04/02/19 14:13 Prosource No Carb Liquid Pkt NGT 30 ml TID CHANTELL Administration Apixaban 2.5 mg 03/29/19 22:00 04/02/19 11:03 Eliquis - PO 2.5 mg BID [facility]TELL Administration Atorvastatin Calcium 20 mg 03/23/19 22:00 04/01/19 22:01 Lipitor - NGT 20 mg HS [facility]TELL Administration Collagenase 1 applic 03/22/19 10:00 04/02/19 11:05 Santyl - TP 1 applic DAILY [facility]TE[facility] Administration Protocol Escitalopram Oxalate 10 mg 03/24/19 10:00 04/02/19 11:00 Lexapro - NGT 10 mg DAILY [facility] Administration Hydrocortisone 50 mg 04/02/19 10:00 04/02/19 11:04 Cortef - PO 50 mg DAILY [facility]TELL Administration Sodium Chloride 250 mls @ 3,000 mls/hr 04/02/19 07:11 Normal Saline - IV 04/03/19 07:10 PRN PRN Hypotension during Dialysis Insulin Aspart 1 vial 03/22/19 00:00 04/02/19 13:12 Novolog Vial Sliding Scale - SQ Not Given Q6HPO [facility] Protocol Metoprolol Tartrate 12.5 mg 03/26/19 10:00 04/02/19 10:55 Lopressor - PO 12.5 mg BID [facility]ANTELL Administration Midodrine 10 mg 03/23/19 18:00 04/02/19 14:13 Proamatine - NGT 10 mg TID-MID CHANTELL Administration Morphine Sulfate 2 mg 03/27/19 01:32 03/30/19 15:30 Morphine Sulfate IVPUSH 2 mg Q3H PRN Administration PAIN LEVEL 6-10 Pantoprazole Sodium 40 mg 03/21/19 22:00 04/02/19 10:55 Protonix Iv IVPUSH 40 mg BID CHANTELL Administration ASSESSMENT/PLAN: Ren Silva is a 73 year old male with a PMHx of ESRD (M, W, F), PVD, HLD, DM , COPD, B/L gangrenous foot ulcer admitted to the ICU after a rapid response was called and the patient was found to be in acute hypercapneic respiratory failure. Neurologic -alert and oriented to self and location -extubated and breathing comfortably on VM Cardiovascular -BP stable with MAPs in the 80s -on eliquis for afib, however patient remains in sinus rhythm -rate control with BB as needed, monitor BP -on midodrine for BP - continue to monitor hemodynamics - home lipitor 20mg - lopressor 12.5 mg bid -Will try to place new peripheral IV today as his central line (L subclavian) is due to be replaced. If unable to obtain peripheral IV access will attempt replacement of the central line. Pulmonary -pulmonary status was compromised by aspiration, CXR revealed complete white out of R lung, improved - extubated, tolerating VM well. -patient already on meropenem -on hydrocortisone 50 BID -duonebs q6h prn - wean as tolerated Gastrointestinal -tube feeds held, will continue to assess for aspiration -on protonix IV BID for prior suspected GIB - NG tube placed for medication - liver enzymes improving -Consult speech pathology to evaluate patient's ability to swallow now that he is alert Renal -patient getting dialysis per nephro -hypoalbuminemic due to malnutrition, which is likely the cause of patient third spacing his fluids Dr. Henriquez consulted recs appreciated Heme/Onc -anemia likely 2/2 ESRD and decreased erythropoitin -continue EPO -maintain H&H above 7 by transfusions as needed - thrombocytopenia resolving - Elliquis restarted 2.5mg bid ENDOCRINE - BGM ACHS - ISS INFECTIOUS DISEASE - extensive wounds on feet - continue meropenem - Dr. Multani consulted recs appreciated - continue Santyl to wounds PSYCHIATRY - on home lexapro Prophylaxis -Eliquis 2.5mg BID -Protonix IV while on AC and pressors -bacid F/E/N - no fluids - continue to monitor lytes - feeds resumed at 20ml/hr, monitor for aspiration-consult speech pathology for swallow evaluation LINES - R permacath - L subclavian line placed 03/27 CODE - full code Disposition -Patient is stable for transfer to telemetry - Dr. Camarillo spoke with father Lokesh Silva who was explained the current status of the patient, he states that he will have to have a discussion with his son Butch, and that he will be able to come to the hospital within the next week to discuss plans of care. On further discussion, he states that "we just have to just let God do his will, it is an unfortunate state of events". The updated number for Lokesh Silva . Phone may be answered by home health aide, however on request to speak with Lokesh, you will be connected. Visit type - Emergency Visit Emergency Visit: Yes ED Registration Date: 02/21/19 Care time: The patient presented to the Emergency Department on the above date and was hospitalized for further evaluation of their emergent condition. - New Patient This patient is new to me today: No - Critical Care Critical Care patient: Yes Total Critical Care Time (in minutes): 36 Critical Care Statement: The care of this patient involved high complexity decision making to prevent further life threatening deterioration of the patient 's condition and/or to evaluate & treat vital organ system(s) failure or risk of failure. ATTENDING PHYSICIAN STATEMENT I saw and evaluated the patient. I reviewed the resident's note and discussed the case with the resident. I agree with the resident's findings and plan as documented. SUBJECTIVE: OBJECTIVE: ASSESSMENT AND PLAN:
--- NOTE | 2019-04-02 16:53 | PN ---
Progress Note, DRY DIP WORKER - Note Progress Note: 73 year old male with a PMHx of ESRD (M, W, F), PVD, HLD, DM, COPD, B/L gangrenous foot ulcer admitted to the ICU after a rapid response was called and the patient was found to be in acute hypercapneic respiratory failure. Pulmonary status was compromised by aspiration, CXR revealed complete white out of R lung, improvedReportedly pt was alert and oriented to self and location earlier today but now is lethargic and not responding to auditory stimuli. Recently extubated and breathing comfortably on VM however set up and charger reported pt had to be suctioned an hour earlier. dynamite cartridge crimper reported that pt is not able to participate in a dysphagia evaluation at this time and recommends deferment. Continue NGT for medication. DRY DIP WORKER will attempt to evaluate swallow status at another time. PCP notified via chart.
--- NOTE | 2019-04-02 17:55 | PN ---
Physical Exam: SUBJECTIVE: Patient seen at bedside. No acute events overnight. OBJECTIVE: Vital Signs Period Temp Pulse Resp BP Sys/Zamorano Pulse Ox Last 24 Hr 97.5 F-98.2 F 67-95 12-28 103-152/60-82 96-100 General: patient not very alert but does speak and AO X1 (to self). Anasarca Heart- normal s1,s2 no murmurs, rubs, gallops Lungs- decreased breath sounds b/l Abdomen- nondistended, normoactive BS, no guarding, no masses. Extremities- cool, 2+ pitting edema b/l upper and lower extremities, b/ gangrenous ulcers unstageable, wet. Laboratory Results - last 24 hr 04/01/19 04/02/19 04/02/19 18:43 00:35 06:30 WBC RBC Hgb Hct MCV MCH MCHC RDW Plt Count MPV Sodium Potassium Chloride Carbon Dioxide Anion Gap BUN Creatinine Est GFR (CKD-EPI)AfAm Est GFR (CKD-EPI)NonAf POC Glucometer 90 116 111 Random Glucose Calcium 04/02/19 04/02/19 04/02/19 07:20 07:20 12:50 WBC 10.3 H RBC 2.85 L Hgb 8.5 L Hct 26.8 L MCV 93.9 MCH 29.9 MCHC 31.8 L RDW 20.0 H Plt Count 119 L D MPV 11.8 H Sodium 136 Potassium 4.1 Chloride 100 Carbon Dioxide 26 Anion Gap 10 BUN 56.3 H Creatinine 1.9 H Est GFR (CKD-EPI)AfAm 39.37 Est GFR (CKD-EPI)NonAf 33.97 POC Glucometer 86 Random Glucose 119 H Calcium 6.5 L* 04/02/19 17:39 WBC RBC Hgb Hct MCV MCH MCHC RDW Plt Count MPV Sodium Potassium Chloride Carbon Dioxide Anion Gap BUN Creatinine Est GFR (CKD-EPI)AfAm Est GFR (CKD-EPI)NonAf POC Glucometer 100 Random Glucose Calcium Active Medications Generic Name Dose Route Start Last Admin Trade Name Freq PRN Reason Stop Dose Admin Amino Acids 30 ml 03/23/19 22:00 04/02/19 14:13 Prosource No Carb Liquid Pkt NGT 30 ml TID [facility]TELL Administration Apixaban 2.5 mg 03/29/19 22:00 04/02/19 11:03 Eliquis - PO 2.5 mg BID [facility] Administration Atorvastatin Calcium 20 mg 03/23/19 22:00 04/01/19 22:01 Lipitor - NGT 20 mg HS [facility]TE[facility] Administration Collagenase 1 applic 03/22/19 10:00 04/02/19 11:05 Santyl - TP 1 applic DAILY [facility] Administration Protocol Escitalopram Oxalate 10 mg 03/24/19 10:00 04/02/19 11:00 Lexapro - NGT 10 mg DAILY [facility] Administration Hydrocortisone 50 mg 04/02/19 10:00 04/02/19 11:04 Cortef - PO 50 mg DAILY [facility]ANTELL Administration Sodium Chloride 250 mls @ 3,000 mls/hr 04/02/19 07:11 Normal Saline - IV 04/03/19 07:10 PRN PRN Hypotension during Dialysis Insulin Aspart 1 vial 03/22/19 00:00 04/02/19 13:12 Novolog Vial Sliding Scale - SQ Not Given Q6HPO [facility] Protocol Metoprolol Tartrate 12.5 mg 03/26/19 10:00 04/02/19 10:55 Lopressor - PO 12.5 mg BID [facility]TE[facility] Administration Midodrine 10 mg 03/23/19 18:00 04/02/19 17:35 Proamatine - NGT 10 mg TID-MID [facility] Administration Morphine Sulfate 2 mg 03/27/19 01:32 03/30/19 15:30 Morphine Sulfate IVPUSH 2 mg Q3H PRN Administration PAIN LEVEL 6-10 Pantoprazole Sodium 40 mg 03/21/19 22:00 04/02/19 10:55 Protonix Iv IVPUSH 40 mg BID [facility]ANTELL Administration ASSESSMENT/PLAN: This is a 73 y/o M w a PMH od ESRD on dialysis, PVD, HLD, DM, COPD, b/l gangrenous legs admitted for septic shock 2/2 b/l foot gangrene and prolonged hospitalization now in ICU s/p aspiration and now intubated. #Acute hypoxic respiratory failure with hypercapnia due to aspiration PNA - Pt extubated and off sedation. - poor trial of extibation so on high flow O2 SaO2 of 100% - Pt on meropenem on his 38th dose. - on hydrocortisone 50daily for adrenal insufficiency during septic shock. continuing to taper. -duonebs q6hprn - Head of bed elevations - c/w ICU monitoring #Septic shock resolved - MRSA, ESBL, pseudomonas, E coli B.C.'s on 03/11/19 02/21/19- Gangrenous foot Cx- ESBL, MOrganella morganii, BC's- proteus mirabilis. - septic shock due to MAP<65 despite fluids. - Treating with meropenem for the ESBL gangrenous legs (dose 38). #Proteus, ESBL, E coli bacteremia - Cx's positive on this - on meropenem dose 38 continue it as per ID. #Infected sacral decubitus ulcers and scrotal ulcer - monitoring the ulcers and keeping it dry and clean. #infected gangrenous ulcers on feet - continue to manage as per wound care and keep area dressed in gauze and dry. #Afib w RVR - eliquis has been restarted for afib due to PLT's uptrending. - rate control with metoprolol 12.5 BID as needed and hold if systolic BP <90, HR<60, or diastolic <60. - on midodrine for BP #ESRD -As per renal -HD done yesterday - will monitor bp - dialyzed today - continue tube feeds - 3 k bath on HD #Thrombocytopenia/Anemia -Anemia due to ESRD w decreased EPO from renal malproduction. Continue EPO 12, 000 units. -Maintain Hemoglobin >7 by transfusions as needed. -Thrombocytopenia- if bleeding occurs with a PLT <50 then we will transfuse, if <10 we will transfuse even without the presence of bleeding. - PLT'S 91 much higher than before will continue to monitor. -restarted eliquis due to PLT level coming back up. #Diabetes - has DM - Blood glucose monitoring - Insulin sliding scale #Neuro/Seizure hx - Keppra was stopped on 03/13 but can be resumed in event of seizure. #FEN - will continue monitoring lytes and replete as necessary. - no fluids indicated at this time. - Pt has been on tube feeds which will be held overnight and NG tube has place for medications. Prophylaxis- DVT: on eliquis 2.5 -Bacid Visit type - Emergency Visit Emergency Visit: No - New Patient This patient is new to me today: No - Critical Care Critical Care patient: Yes Total Critical Care Time (in minutes): 45 Critical Care Statement: The care of this patient involved high complexity decision making to prevent further life threatening deterioration of the patient 's condition and/or to evaluate & treat vital organ system(s) failure or risk of failure. - Discharge Referral Referred to [facility] No ATTENDING PHYSICIAN STATEMENT I saw and evaluated the patient. I reviewed the resident's note and discussed the case with the resident. I agree with the resident's findings and plan as documented. SUBJECTIVE: OBJECTIVE: ASSESSMENT AND PLAN:
--- NOTE | 2019-04-02 19:59 | PN ---
Progress Note (short form) - Note Progress Note: Pt tachypneic at 30-35 with increased work of breathing noted. Pt oriented x2 at present moment with increased secretions and notable audible rhonchi when phonating. Highflow O2 ordered at 50L and 50% FiO2 for work of breathing and pt' s hypoxic respiratory distress. After initiation of HFO2, pt looks more comfortable with respirations of 20-25, no accessory muscle use or notable distress.
[2019-04-02] MEDS: BANATROL PLUS POWDER PACKET GT SCH (21:56)
[2019-04-02] MEDS: ATORVASTATIN CA 20 MG TABLET (FP) NGT SCH (21:57)
[2019-04-03] MEDS: INSULIN SLIDING SCALE (NOVOLOG) 1 VIAL SQ SCH ×3 (00:12→18:49)
[2019-04-03] MEDS ORDERED: PT OWN MED DRAWER 7, Y5N ONE ×3 (05:47→16:20)
[2019-04-03] MEDS ORDERED: DEXTROSE 50%-WATER - 25 GM/50 ML VIAL ONE (05:59)
[2019-04-03] MEDS ORDERED: DEXTROSE 50%-WATER - 25 GM/50 ML VIAL IVPUSH ONE (06:02)
[2019-04-03 06:49] LABS: HEMOGLOBIN 8.4 GM/dL (11.7-16.9); MCH 30.4 pg (25.7-33.7); MCHC 32.2 g/dl (32.0-35.9); MEAN CELL VOLUME 94.5 fl (80-96); MEAN PLT VOLUME 12.5 fl (7.5-11.1); PLATELET COUNT 103 K/MM3 (134-434); RBC 2.75 M/mm3 (4.00-5.60); RDW 19.4 % (11.9-15.9); WHITE BLOOD COUNT 7.6 K/mm3 (4.0-10.0)
[2019-04-03] MEDS: AMINO ACIDS/PROTEIN HYDROLYS 30 ML LIQUID.PKT NGT SCH ×3 (06:58→21:26)
[2019-04-03 07:33] LABS: ALBUMIN 1.2 g/dl (3.4-5.0); BLOOD UREA NITROGEN 40.8 mg/dL (7-18); CREATININE 1.4 mg/dL (0.55-1.3); MAGNESIUM 1.8 mg/dL (1.8-2.4); PHOSPHOROUS 3.8 mg/dL (2.5-4.9); POTASSIUM 3.3 mmol/L (3.5-5.1); TOT PROT 4.7 g/dl (6.4-8.2)
[2019-04-03 07:47] LABS: CALCIUM 6.8 mg/dL (8.5-10.1)
[2019-04-03] MEDS ORDERED: KCL 10 MEQ IVPB 10 MEQ/100 ML INFUS.BAG IVPB SCH (08:00)
[2019-04-03] MEDS: METOPROLOL TARTRATE 25 MG TABLET (FP) PO SCH ×2 (09:05→21:26)
[2019-04-03] MEDS: APIXABAN 2.5 MG TABLET PO SCH ×2 (09:05→21:25)
[2019-04-03] MEDS: BANATROL PLUS POWDER PACKET GT SCH ×2 (09:06→21:25)
[2019-04-03] MEDS: PANTOPRAZOLE SODIUM 40 MG VIAL IVPUSH SCH ×2 (09:06→21:26)
[2019-04-03] MEDS: ESCITALOPRAM OXALATE 10 MG TABLET (FP) NGT SCH (09:06)
[2019-04-03] MEDS: MULTIVIT-MINERALS ORAL LIQUID NGT SCH (10:46)
[2019-04-03] MEDS: HYDROCORTISONE 20 MG TABLET PO SCH (10:47)
[2019-04-03] MEDS: MIDODRINE HCL 5 MG TABLET NGT SCH ×3 (10:48→17:45)
[2019-04-03] MEDS: COLLAGENASE CLOSTRIDIUM HIST. 30 GRAMS TUBE TP SCH (11:30)
--- NOTE | 2019-04-03 11:45 | PN ---
Teaching Attending Note Name of Resident: Sarina Estrada ATTENDING PHYSICIAN STATEMENT I saw and evaluated the patient. I reviewed the resident's note and discussed the case with the resident. I agree with the resident's findings and plan as documented. SUBJECTIVE: Pt seen and examined in the ICU. Remains on HFOT. Off pressors. OBJECTIVE: Vital Signs Period Temp Pulse Resp BP Sys/Zamorano Pulse Ox Last 24 Hr 97.6 F-98.9 F 72-108 18-29 99-135/60-78 100-100 Intake & Output 04/01/19 04/02/19 04/03/19 04/04/19 23:59 23:59 23:59 23:59 Intake Total 215 1600 350 250 Output Total 0 0 Balance 215 1600 350 250 Weight 86.9 kg 87.657 kg 86.636 kg 86.636 kg Gen: arousable Heart: RRR Lung: decreased breath sounds at the bases Abd: soft, nontender Ext: + edema, dressings wet Laboratory Tests 04/03/19 04/03/19 05:25 05:25 WBC 7.6 Hgb 8.4 L Hct 26.0 L Plt Count 103 L Sodium 141 Potassium 3.3 L Chloride 103 Carbon Dioxide 29 Anion Gap 9 BUN 40.8 H Creatinine 1.4 H Active Medications Albumin Human (Albumin Human 25%) 12.5 gm IVPB Q30M CHANTELL Stop: 04/04/19 12:31 Last Admin: 04/04/19 11:14 Dose: Not Given Amino Acids (Prosource No Carb Liquid Pkt) 30 ml NGT TID [facility] Last Admin: 04/04/19 07:00 Dose: 30 ml Apixaban (Eliquis -) 2.5 mg PO BID [facility] Last Admin: 04/03/19 21:25 Dose: 2.5 mg Atorvastatin Calcium (Lipitor -) 20 mg NGT HS [facility] Last Admin: 04/03/19 21:25 Dose: 20 mg Bacitracin/Polymyxin B Sulfate (Polysporin Ointment -) 1 applic TP DAILY [facility] Last Admin: 04/03/19 16:08 Dose: 1 applic Collagenase (Santyl -) 1 applic TP DAILY [facility]; Protocol Last Admin: 04/03/19 11:30 Dose: 1 applic Escitalopram Oxalate (Lexapro -) 10 mg NGT DAILY [facility] Last Admin: 04/03/19 09:06 Dose: 10 mg Hydrocortisone (Cortef -) 50 mg PO DAILY [facility] Last Admin: 04/03/19 10:47 Dose: 50 mg Insulin Aspart (Novolog Vial Sliding Scale -) 1 vial SQ Q6HPO [facility]; Protocol Last Admin: 04/04/19 06:53 Dose: Not Given Metoprolol Tartrate (Lopressor -) 12.5 mg PO BID [facility] Last Admin: 04/03/19 21:26 Dose: 12.5 mg Midodrine (Proamatine -) 10 mg NGT TID-MID [facility] Last Admin: 04/03/19 17:45 Dose: 10 mg Morphine Sulfate (Morphine Sulfate) 2 mg IVPUSH Q3H PRN PRN Reason: PAIN LEVEL 6-10 Last Admin: 03/30/19 15:30 Dose: 2 mg Pantoprazole Sodium (Protonix Iv) 40 mg IVPUSH BID [facility] Last Admin: 04/03/19 21:26 Dose: 40 mg ASSESSMENT AND PLAN: s/p Acute Respiratory Failure Aspiration Pneumonitis with ARDS physiology Recent ESBL E coli Bacteremia Bilateral Feet Gangrene Infected Decubitus Ulcers Septic Shock ESRD on HD DM HTN Hyperlipidemia h/o CVA - continue antibiotics per ID - continue midodrine - monitoring off pressors, maintain MAP >65 - monitor H/H - local wound care - HD per renal - taper Fio2 to keep Spo2 >90% - aspiration precautions - swallow eval - DVT prophylaxis - continue efforts to discuss medical condition and prognosis with next of kin - given overall poor condition, current medical condition, and overall poor skilled nursing outcome, recommend palliative/comfort care - continue ICU monitoring critical care time spent in reviewing chart, evaluating patient and formulating plan 35 min
--- NOTE | 2019-04-03 12:01 | PN ---
Physical Exam: SUBJECTIVE: Patient seen and examined at the bedside on 04/03/2019. Patient became tachypneic at 30-35 with increased work of breathing noted. It was noted that the patient had increased secretions and audible rhonchi when phonating. Highflow O2 was ordered at 50L and 50% FiO2. After initiation of HFO2, patient appeared more comfortable with no accessory muscle use or notable distress. His feeds were also held over night because of suspicion of further aspiration. OBJECTIVE: Vital Signs Period Temp Pulse Resp BP Sys/Zamorano Pulse Ox Last 24 Hr 97.2 F-97.6 F 69-93 21-32 110-152/64-78 96-100 GENERAL: Alert, oriented to self, and location. High flow O2. HEAD: Normal with no signs of trauma. EYES: PERRL NECK: Trachea midline, full range of motion, supple. LUNGS: Breath sounds equal, coarse breath sounds bilaterally (ronchorous), no wheezes noted. HEART: Regular rate and rhythm, S1, S2 without murmur, rub or gallop. ABDOMEN: Soft, nontender, nondistended, normoactive bowel sounds, no guarding, no rebound, no hepatosplenomegaly, no masses. EXTREMITIES: 2+ pulses, warm, well-perfused, 3+ edema bilaterally upper and lower extremities NEUROLOGICAL: unable to assess due to sedation SKIN: Warm, dry, extensive necrosing wounds on feet bilaterally. Unstagable sacral ulcer (not examined today). Small pustule noted adjacent to L subclavian line Laboratory Results - last 24 hr 04/02/19 04/02/19 04/03/19 12:50 17:39 00:10 WBC RBC Hgb Hct MCV MCH MCHC RDW Plt Count MPV Sodium Potassium Chloride Carbon Dioxide Anion Gap BUN Creatinine Est GFR (CKD-EPI)AfAm Est GFR (CKD-EPI)NonAf POC Glucometer 86 100 99 Random Glucose Calcium Phosphorus Magnesium Total Bilirubin AST ALT Alkaline Phosphatase Total Protein Albumin 04/03/19 04/03/19 04/03/19 05:25 05:25 05:53 WBC 7.6 RBC 2.75 L Hgb 8.4 L Hct 26.0 L MCV 94.5 MCH 30.4 MCHC 32.2 RDW 19.4 H Plt Count 103 L MPV 12.5 H Sodium 141 Potassium 3.3 L Chloride 103 Carbon Dioxide 29 Anion Gap 9 BUN 40.8 H Creatinine 1.4 H Est GFR (CKD-EPI)AfAm 56.96 Est GFR (CKD-EPI)NonAf 49.14 POC Glucometer 57 Random Glucose 63 L Calcium 6.8 L* Phosphorus 3.8 Magnesium 1.8 Total Bilirubin 1.0 AST 38 H ALT 20 Alkaline Phosphatase 641 H Total Protein 4.7 L Albumin 1.2 L 04/03/19 11:57 WBC RBC Hgb Hct MCV MCH MCHC RDW Plt Count MPV Sodium Potassium Chloride Carbon Dioxide Anion Gap BUN Creatinine Est GFR (CKD-EPI)AfAm Est GFR (CKD-EPI)NonAf POC Glucometer 66 Random Glucose Calcium Phosphorus Magnesium Total Bilirubin AST ALT Alkaline Phosphatase Total Protein Albumin Active Medications Generic Name Dose Route Start Last Admin Trade Name Freq PRN Reason Stop Dose Admin Amino Acids 30 ml 03/23/19 22:00 04/03/19 06:58 Prosource No Carb Liquid Pkt NGT 30 ml TID CHANTELL Administration Apixaban 2.5 mg 03/29/19 22:00 04/03/19 09:05 Eliquis - PO 2.5 mg BID CHANTELL Administration Atorvastatin Calcium 20 mg 03/23/19 22:00 04/02/19 21:57 Lipitor - NGT 20 mg HS CHANTELL Administration Bacitracin/Polymyxin B Sulfate 1 applic 04/03/19 12:00 Polysporin Ointment - TP DAILY CHANTELL Collagenase 1 applic 03/22/19 10:00 04/02/19 11:05 Santyl - TP 1 applic DAILY CHANTELL Administration Protocol Escitalopram Oxalate 10 mg 03/24/19 10:00 04/03/19 09:06 Lexapro - NGT 10 mg DAILY CHANTELL Administration Hydrocortisone 50 mg 04/02/19 10:00 04/03/19 10:47 Cortef - PO 50 mg DAILY CHANTELL Administration Insulin Aspart 1 vial 03/22/19 00:00 04/03/19 06:57 Novolog Vial Sliding Scale - SQ Not Given Q6HPO [facility] Protocol Metoprolol Tartrate 12.5 mg 03/26/19 10:00 04/03/19 09:05 Lopressor - PO 12.5 mg BID CHANTELL Administration Midodrine 10 mg 03/23/19 18:00 04/03/19 10:48 Proamatine - NGT 10 mg TID-MID CHANTELL Administration Morphine Sulfate 2 mg 03/27/19 01:32 03/30/19 15:30 Morphine Sulfate IVPUSH 2 mg Q3H PRN Administration PAIN LEVEL 6-10 Pantoprazole Sodium 40 mg 03/21/19 22:00 04/03/19 09:06 Protonix Iv IVPUSH 40 mg BID CHANTELL Administration ASSESSMENT/PLAN: Ren Silva is a 73 year old male with a PMHx of ESRD (M, W, F), PVD, HLD, DM , COPD, B/L gangrenous foot ulcer admitted to the ICU after a rapid response was called and the patient was found to be in acute hypercapneic respiratory failure. Neurologic -alert and oriented to self and location -extubated, now on high flow o2 -attempt to wean off high flow o2 and resume ventimask Cardiovascular -BP stable with MAPs in the 80s -on eliquis for afib, however patient remains in sinus rhythm -rate control with BB as needed, monitor BP -on midodrine for BP - continue to monitor hemodynamics - home lipitor 20mg - lopressor 12.5 mg bid -Successfully placed new peripheral IV today in the R AC fossa. Removed L subclavian line. - small pustule noted under dressing adjacent to entry site of L subclavian. Site cleaned and dressing changed. Ordered bacitracin oinment and will monitor. Pulmonary -pulmonary status was compromised by aspiration, CXR revealed complete white out of R lung, improved - extubated, became tachypnic and had increased WOB while on venti-mask last night. Now breathing comfortably on high flow o2. -patient already on meropenem -on hydrocortisone 50 BID -duonebs q6h prn - wean as tolerated Gastrointestinal -tube feeds held - repeat CXR to evaluate for aspiration - consult RD to assess tube feeds/ offer recommendations -on protonix IV BID for prior suspected GIB - NG tube placed for medication - liver enzymes improving -Speech pathology attempted to evaluate patient yesterday (04/02/2019) but patient was unable to participate in the exam Renal -patient getting dialysis per nephro -hypoalbuminemic due to malnutrition, which is likely the cause of patient third spacing his fluids Dr. Henriquez consulted recs appreciated Heme/Onc -anemia likely 2/2 ESRD and decreased erythropoitin -continue EPO -maintain H&H above 7 by transfusions as needed - thrombocytopenia resolving - Elliquis restarted 2.5mg bid ENDOCRINE - BGM ACHS - ISS INFECTIOUS DISEASE - extensive wounds on feet - continue meropenem - Dr. Multani consulted recs appreciated - continue Santyl to wounds PSYCHIATRY - on home lexapro Prophylaxis -Eliquis 2.5mg BID -Protonix IV while on AC and pressors -bacid F/E/N - no fluids - continue to monitor lytes - holding tube feeds for now pending aspiration work up LINES - R permacath - L subclavian line placed 03/27 REMOVED 04/03 - R peripheral IV in the AC fossa placed 04/03 CODE - full code Disposition -Patient is stable for transfer to telemetry - Dr. Camarillo spoke with father Lokesh Silva who was explained the current status of the patient, he states that he will have to have a discussion with his son Butch, and that he will be able to come to the hospital within the next week to discuss plans of care. On further discussion, he states that "we just have to just let God do his will, it is an unfortunate state of events". The updated number for Lokesh Silva . Phone may be answered by home health aide, however on request to speak with Lokesh, you will be connected. Visit type - Emergency Visit Emergency Visit: Yes ED Registration Date: 02/21/19 Care time: The patient presented to the Emergency Department on the above date and was hospitalized for further evaluation of their emergent condition. - New Patient This patient is new to me today: No - Critical Care Critical Care patient: Yes Total Critical Care Time (in minutes): 40 Critical Care Statement: The care of this patient involved high complexity decision making to prevent further life threatening deterioration of the patient 's condition and/or to evaluate & treat vital organ system(s) failure or risk of failure. ATTENDING PHYSICIAN STATEMENT I saw and evaluated the patient. I reviewed the resident's note and discussed the case with the resident. I agree with the resident's findings and plan as documented. SUBJECTIVE: OBJECTIVE: ASSESSMENT AND PLAN:
--- NOTE | 2019-04-03 13:03 | PN ---
Progress Note, Physician History of Present Illness: Pt seen and examined at bedside. He remains in the ICU. He remains extubated. - Current Medication List Current Medications: Active Medications Amino Acids (Prosource No Carb Liquid Pkt) 30 ml NGT TID [facility] Last Admin: 04/03/19 06:58 Dose: 30 ml Apixaban (Eliquis -) 2.5 mg PO BID [facility] Last Admin: 04/03/19 09:05 Dose: 2.5 mg Atorvastatin Calcium (Lipitor -) 20 mg NGT HS [facility] Last Admin: 04/02/19 21:57 Dose: 20 mg Bacitracin/Polymyxin B Sulfate (Polysporin Ointment -) 1 applic TP DAILY [facility]ANTELL Collagenase (Santyl -) 1 applic TP DAILY [facility]; Protocol Last Admin: 04/02/19 11:05 Dose: 1 applic Escitalopram Oxalate (Lexapro -) 10 mg NGT DAILY [facility] Last Admin: 04/03/19 09:06 Dose: 10 mg Hydrocortisone (Cortef -) 50 mg PO DAILY [facility] Last Admin: 04/03/19 10:47 Dose: 50 mg Insulin Aspart (Novolog Vial Sliding Scale -) 1 vial SQ Q6HPO [facility]; Protocol Last Admin: 04/03/19 06:57 Dose: Not Given Metoprolol Tartrate (Lopressor -) 12.5 mg PO BID [facility] Last Admin: 04/03/19 09:05 Dose: 12.5 mg Midodrine (Proamatine -) 10 mg NGT TID-MID [facility] Last Admin: 04/03/19 10:48 Dose: 10 mg Morphine Sulfate (Morphine Sulfate) 2 mg IVPUSH Q3H PRN PRN Reason: PAIN LEVEL 6-10 Last Admin: 03/30/19 15:30 Dose: 2 mg Pantoprazole Sodium (Protonix Iv) 40 mg IVPUSH BID [facility] Last Admin: 04/03/19 09:06 Dose: 40 mg - Objective Vital Signs: Vital Signs Temperature 97.4 F L 04/03/19 06:00 Pulse Rate 93 H 04/03/19 08:00 Respiratory Rate 24 H 04/03/19 09:00 Blood Pressure 110/71 04/03/19 08:00 O2 Sat by Pulse Oximetry (%) 96 04/03/19 09:00 Constitutional: Yes: Calm, Mild Distress Eyes: Yes: Conjunctiva Clear Cardiovascular: Yes: S1, S2 Respiratory: Yes: On Nasal O2 Gastrointestinal: Yes: Soft Genitourinary: Yes: Incontinence Musculoskeletal: Yes: Muscle Weakness Edema: Yes Edema: LUE: 1+, RUE: 1+ Wound/Incision: Yes: Other (odor from wounds) Neurological: Yes: Other (awake but not very interactive) Labs: CBC, BMP 04/03/19 05:25 04/03/19 05:25 INR, PTT INR 1.22 (0.83-1.09) H 03/27/19 15:30 Fibrinogen 459.0 mg/dL (238-498) 03/27/19 15:30 Problem List - Problems (1) ESRD (end stage renal disease) on dialysis Code(s): N18.6 - END STAGE RENAL DISEASE; Z99.2 - DEPENDENCE ON RENAL DIALYSIS Assessment/Plan Current Medications Generic Name Dose Route Start Last Admin Trade Name Freq PRN Reason Stop Dose Admin Amino Acids 30 ml 03/23/19 22:00 04/03/19 06:58 Prosource No Carb Liquid Pkt NGT 30 ml TID [facility]ANTELL Administration Apixaban 2.5 mg 03/29/19 22:00 04/03/19 09:05 Eliquis - PO 2.5 mg BID [facility]TE[facility] Administration Atorvastatin Calcium 20 mg 03/23/19 22:00 04/02/19 21:57 Lipitor - NGT 20 mg HS [facility] Administration Bacitracin/Polymyxin B Sulfate 1 applic 04/03/19 12:00 Polysporin Ointment - TP DAILY [facility]TE[facility] Collagenase 1 applic 03/22/19 10:00 04/02/19 11:05 Santyl - TP 1 applic DAILY [facility] Administration Protocol Escitalopram Oxalate 10 mg 03/24/19 10:00 04/03/19 09:06 Lexapro - NGT 10 mg DAILY [facility] Administration Hydrocortisone 50 mg 04/02/19 10:00 04/03/19 10:47 Cortef - PO 50 mg DAILY [facility] Administration Insulin Aspart 1 vial 03/22/19 00:00 04/03/19 06:57 Novolog Vial Sliding Scale - SQ Not Given Q6HPO [facility] Protocol Metoprolol Tartrate 12.5 mg 03/26/19 10:00 04/03/19 09:05 Lopressor - PO 12.5 mg BID [facility] Administration Midodrine 10 mg 03/23/19 18:00 04/03/19 10:48 Proamatine - NGT 10 mg TID-MID [facility] Administration Morphine Sulfate 2 mg 03/27/19 01:32 03/30/19 15:30 Morphine Sulfate IVPUSH 2 mg Q3H PRN Administration PAIN LEVEL 6-10 Pantoprazole Sodium 40 mg 03/21/19 22:00 04/03/19 09:06 Protonix Iv IVPUSH 40 mg BID [facility]ANTELL Administration Impression 1. ESRD 2. gangrene 3. DM 4. hyperlipidemia 5. HTN 6. gout 7. proteinuria 8. hypotension 9. sepsis 10. resp failure Plan - HD tomorrow - monitor pulse ox - bp improving - 3 k bath on HD - cont wound care - pt is doing poorly
--- NOTE | 2019-04-03 14:20 | PN ---
Teaching Attending Note Name of Resident: Latisha Rowe ATTENDING PHYSICIAN STATEMENT I saw and evaluated the patient. I reviewed the resident's note and discussed the case with the resident. I agree with the resident's findings and plan as documented. SUBJECTIVE: events over night noted for resp distress last night. TF was stopped. this am , he denies any pian of SOB. OBJECTIVE: NAD,awake, knows he is in hospital, thinks he is 39 y/o CV: RRR, no MRG Lungs: mild rales anteriorly especially on L side, decreased breath sounds at R side . Abd: NT , ND, sacral and scrotal area and feet wounds were not examined today ASSESSMENT AND PLAN: 73 y/o man with h/o dementia, CVA, DM, COPD, ESRD, gout, HTN, HLP, recent admission 01/31-02/19 during which he was treated for sepsis due to infected b/l feet ulcers/gangrene. He was sent form NH due to poor po intake, and non healing wounds 1- Acute hypoxic resp failure, 2/2 aspiration. extubated , now on high flow oxygen 2- Septic shock resolved 3- Infected sacral decub and scrotal ulcer 4- Proteus bacteremia ,ESBL producing E coli bacteremia: neg last blood cx 5- ESRD 6- DM. hypoglycemia 7- Infected gangrenous feet wounds 8- anemia 9- A fib with RVR 10- thrombocytopenia Plan: - off Abx now. - cont high flow oxygen. - hold TF for today, will resume yesterday at a lower rate - HOB elevation. - cont hydrocortisone at 50 daily. -cont BB with holding parameters - Cont eliquis - HD per schedule - monitor electrolytes - decrease dose of SSI. received D50 this am Poor prognosis. Conference call with brother, Butch and father, Lokesh . Also, Palliative care and case management present. updates about condition were given, prognosis was also discussed. LTAC option was discussed. If patient condition remains relatively stable, and if family remain in agreement with LTAC, then will arrange for transfer to [place]. Critical Care Total Critical Care Time (in minutes): 45 Critical Care Statement: The care of this patient involved high complexity decision making to prevent further life threatening deterioration of the patient 's condition and/or to evaluate & treat vital organ system(s) failure or risk of failure.
--- NOTE | 2019-04-03 15:14 | PN ---
Physical Exam: SUBJECTIVE: Patient seen and examined at the bedside this AM. Acute events overnight: Patient became tachypneic at 30-35 with increased work of breathing. It was noted that the patient had increased secretions and audible rhonchi when phonating. Highflow O2 was ordered at 50L and 50% FiO2. After initiation of HFO2, patient appeared more comfortable with no accessory muscle use or notable distress. His feeds were also held over night because of suspicion of further aspiration. OBJECTIVE: Vital Signs Period Temp Pulse Resp BP Sys/Zamorano Pulse Ox Last 24 Hr 97.2 F-98.0 F 69-93 21-32 110-152/64-78 96-100 GENERAL: The patient is AO X2 (didnt know the mth or year), in no acute distress. NECK: supple. LUNGS: Breath sounds decreased, slight ronchi bilaterally, no wheezes, no crackles, no accessory muscle use noted. HEART: Regular rate and rhythm, S1, S2 without murmur, rub or gallop. ABDOMEN: Soft, nontender, nondistended, no guarding, no rebound. EXTREMITIES: cool, 2+ pitting edema b/l upper and lower extremities. NEUROLOGICAL: minimal speech appreciated but no slurring of speech, gait not observed. SKIN:b/l gangrenous ulcers on lower extremities wrapped in gauze, I did not observe them today. Laboratory Results - last 24 hr 04/02/19 04/03/19 04/03/19 17:39 00:10 05:25 WBC 7.6 RBC 2.75 L Hgb 8.4 L Hct 26.0 L MCV 94.5 MCH 30.4 MCHC 32.2 RDW 19.4 H Plt Count 103 L MPV 12.5 H Sodium Potassium Chloride Carbon Dioxide Anion Gap BUN Creatinine Est GFR (CKD-EPI)AfAm Est GFR (CKD-EPI)NonAf POC Glucometer 100 99 Random Glucose Calcium Phosphorus Magnesium Total Bilirubin AST ALT Alkaline Phosphatase Total Protein Albumin 04/03/19 04/03/19 04/03/19 05:25 05:53 11:57 WBC RBC Hgb Hct MCV MCH MCHC RDW Plt Count MPV Sodium 141 Potassium 3.3 L Chloride 103 Carbon Dioxide 29 Anion Gap 9 BUN 40.8 H Creatinine 1.4 H Est GFR (CKD-EPI)AfAm 56.96 Est GFR (CKD-EPI)NonAf 49.14 POC Glucometer 57 66 Random Glucose 63 L Calcium 6.8 L* Phosphorus 3.8 Magnesium 1.8 Total Bilirubin 1.0 AST 38 H ALT 20 Alkaline Phosphatase 641 H Total Protein 4.7 L Albumin 1.2 L Active Medications Generic Name Dose Route Start Last Admin Trade Name Freq PRN Reason Stop Dose Admin Albumin Human 12.5 gm 04/04/19 13:15 Albumin Human 25% IVPB Q30M CHANTELL Amino Acids 30 ml 03/23/19 22:00 04/03/19 06:58 Prosource No Carb Liquid Pkt NGT 30 ml TID CHANTELL Administration Apixaban 2.5 mg 03/29/19 22:00 04/03/19 09:05 Eliquis - PO 2.5 mg BID CHANTELL Administration Atorvastatin Calcium 20 mg 03/23/19 22:00 04/02/19 21:57 Lipitor - NGT 20 mg HS CHANTELL Administration Bacitracin/Polymyxin B Sulfate 1 applic 04/03/19 12:00 Polysporin Ointment - TP DAILY CHANTELL Collagenase 1 applic 03/22/19 10:00 04/02/19 11:05 Santyl - TP 1 applic DAILY CHANTELL Administration Protocol Epoetin Jose 12,000 unit 04/04/19 13:03 Epogen - IVPUSH 04/04/19 13:04 ONCE ONE Escitalopram Oxalate 10 mg 03/24/19 10:00 04/03/19 09:06 Lexapro - NGT 10 mg DAILY CHANTELL Administration Hydrocortisone 50 mg 04/02/19 10:00 04/03/19 10:47 Cortef - PO 50 mg DAILY CHANTELL Administration Sodium Chloride 250 mls @ 3,000 mls/hr 04/03/19 13:03 Normal Saline - IV 04/04/19 13:03 PRN PRN Hypotension during Dialysis Insulin Aspart 1 vial 04/03/19 13:21 Novolog Vial Sliding Scale - SQ Q6HPO [facility] Protocol Metoprolol Tartrate 12.5 mg 03/26/19 10:00 04/03/19 09:05 Lopressor - PO 12.5 mg BID CHANTELL Administration Midodrine 10 mg 03/23/19 18:00 04/03/19 10:48 Proamatine - NGT 10 mg TID-MID CHANTELL Administration Morphine Sulfate 2 mg 03/27/19 01:32 03/30/19 15:30 Morphine Sulfate IVPUSH 2 mg Q3H PRN Administration PAIN LEVEL 6-10 Pantoprazole Sodium 40 mg 03/21/19 22:00 04/03/19 09:06 Protonix Iv IVPUSH 40 mg BID CHANTELL Administration ASSESSMENT/PLAN: This is a 73 y/o M w a PMH od ESRD on dialysis, PVD, HLD, DM, COPD, b/l gangrenous legs admitted for septic shock 2/2 b/l foot gangrene and prolonged hospitalization now in ICU s/p aspiration and now intubated. #Acute hypoxic respiratory failure with hypercapnia due to aspiration PNA - Pt extubated and off sedation. - poor trial of extubation so on high flow O2 SaO2 of 50L 40%O2 satting at 97%. - Pt off meropenem - on hydrocortisone 50daily for adrenal insufficiency during septic shock. continuing to taper. -duonebs q6hprn - Head of bed elevations - continuing to hold tube feeds today, plan is to resume tube feeds tm at lower rate. - c/w ICU monitoring #Septic shock resolved - Off meropenem for the ESBL gangrenous legs (dose 38). #Proteus, ESBL, E coli bacteremia - Cx's positive on this - off meropenem. #Infected sacral decubitus ulcers and scrotal ulcer - monitoring the ulcers and keeping it dry and clean. #infected gangrenous ulcers on feet - continue to manage as per wound care and keep area dressed in gauze and dry. #Afib w RVR - eliquis has been restarted for afib due to PLT's uptrending. - rate control with metoprolol 12.5 BID as needed and hold if systolic BP <90, HR<60, or diastolic <60. - on midodrine for BP #ESRD -As per renal -HD to be done tomorrow - will monitor bp - 3 k bath on HD #Thrombocytopenia/Anemia -Anemia due to ESRD w decreased EPO from renal malproduction. Continue EPO 12, 000 units. -Maintain Hemoglobin >7 by transfusions as needed. -Thrombocytopenia- if bleeding occurs with a PLT <50 then we will transfuse, if <10 we will transfuse even without the presence of bleeding. - PLT'S 91 much higher than before will continue to monitor. -restarted eliquis due to PLT level coming back up. #Psych -pt started on lexapro but recommends lowering dose due to D50 given this AM. #Diabetes - has DM - Blood glucose monitoring - Insulin sliding scale #Neuro/Seizure hx - Keppra was stopped on 03/13 but can be resumed in event of seizure. #FEN - will continue monitoring lytes and replete as necessary. - no fluids indicated at this time. - Pt has been off tube feeds which will be continued tm at slower rate and NG tube in place for medications. Dispo: Dr. Alcaraz spoke to the family today on conference call. Pt will be d/c to LTAC tomorrow. Prophylaxis- DVT: on eliquis 2.5 GI: IV protonix -Bacid Visit type - Emergency Visit Emergency Visit: No - New Patient This patient is new to me today: No - Critical Care Critical Care patient: Yes Total Critical Care Time (in minutes): 45 Critical Care Statement: The care of this patient involved high complexity decision making to prevent further life threatening deterioration of the patient 's condition and/or to evaluate & treat vital organ system(s) failure or risk of failure. - Discharge Referral Referred to [facility] Med P.C.: No ATTENDING PHYSICIAN STATEMENT I saw and evaluated the patient. I reviewed the resident's note and discussed the case with the resident. I agree with the resident's findings and plan as documented. SUBJECTIVE: OBJECTIVE: ASSESSMENT AND PLAN:
[2019-04-03] MEDS: BACITRACIN/POLYMYXIN B SULFATE 15 GM TUBE TP SCH (16:08)
--- NOTE | 2019-04-03 18:09 | PN ---
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 .Pt is talking and responding to questions. Vocal quality is impaired characterized as weak or strained with reduced intensity and pitch. Reduced airway protection with weak volitional cough. Pt presents with suboptimal dentition for adequate mastication. Edentulous spaces observed. Pt given po trials of puree with total assistance revealed reduced bolus guest relations receptionist with reduced mouth opening, adequate bolus formation and control with increased A-P transport. Mildly delayed pharyngeal swallow observed. No observable s/s of coughing or changes in respiration and voicing. Pt given po trials of ice chips via spoon and thicken liquids also via spoon with total assistance revealed reduced acceptance, reduced labial containment ( with some anterior loss) and bolus control. Pharyngeal swallows are mildly delayed. Impressions: Pt may not be able to orally take in enough nutrition to sustain healing. Consider PEG for nutritional support. Recommendations: Trial po intake of puree and honey thicken liquids via spoon at tolerated. Observe standard aspiration precautions. Provide oral care before and after meal meals. Results given verbally to charge histotechnologist and PCP via chart. H[employer] STRIP MILL SUPERVISOR to follow up for diet tolerance.
[2019-04-03] MEDS: ATORVASTATIN CA 20 MG TABLET (FP) NGT SCH (21:25)
[2019-04-04] MEDS: INSULIN SLIDING SCALE (NOVOLOG) 1 VIAL SQ SCH ×4 (01:09→19:42)
[2019-04-04] MEDS: AMINO ACIDS/PROTEIN HYDROLYS 30 ML LIQUID.PKT NGT SCH ×3 (07:00→21:21)
[2019-04-04 10:28] LABS: HEMATOCRIT 25.5 % (35.4-49); HEMOGLOBIN 8.2 GM/dL (11.7-16.9); MCH 30.4 pg (25.7-33.7); MCHC 32.2 g/dl (32.0-35.9); MEAN CELL VOLUME 94.5 fl (80-96); MEAN PLT VOLUME 11.1 fl (7.5-11.1); RDW 19.5 % (11.9-15.9); WHITE BLOOD COUNT 10.3 K/mm3 (4.0-10.0)
[2019-04-04] MEDS: BACITRACIN/POLYMYXIN B SULFATE 15 GM TUBE TP SCH (10:30)
[2019-04-04] MEDS: APIXABAN 2.5 MG TABLET PO SCH ×2 (10:30→21:00)
[2019-04-04] MEDS: METOPROLOL TARTRATE 25 MG TABLET (FP) PO SCH ×2 (10:30→21:00)
[2019-04-04 10:52] LABS: PLATELET COUNT 118 K/MM3 (134-434)
[2019-04-04 10:58] LABS: ALBUMIN 1.2 g/dl (3.4-5.0); BILIRUBIN,TOTAL 0.6 mg/dL (0.2-1); CREATININE 1.8 mg/dL (0.55-1.3); MAGNESIUM 1.9 mg/dL (1.8-2.4); PHOSPHOROUS 5.1 mg/dL (2.5-4.9); POTASSIUM 3.3 mmol/L (3.5-5.1); TOT PROT 4.6 g/dl (6.4-8.2)
[2019-04-04] MEDS ORDERED: EPOETIN ALFA 10,000 UNIT, EPOETIN ALFA 2,000 UNIT IVPUSH ONE (11:00)
[2019-04-04] MEDS ORDERED: SODIUM CHLORIDE 250 ML IV PRN (11:00)
[2019-04-04 11:06] LABS: CALCIUM 6.7 mg/dL (8.5-10.1)
[2019-04-04] MEDS: ALBUMIN HUMAN 25% 12.5 GM/50 ML VIAL IVPB SCH ×3 (11:14→12:37)
--- NOTE | 2019-04-04 12:01 | PN ---
Teaching Attending Note Name of Resident: Perico Camarillo ATTENDING PHYSICIAN STATEMENT I saw and evaluated the patient. I reviewed the resident's note and discussed the case with the resident. I agree with the resident's findings and plan as documented. SUBJECTIVE: Pt seen and examined in the ICU. Remains on HFOT 40% FiO2. Mental status remains improved. Currently receiving HD. OBJECTIVE: Vital Signs Period Temp Pulse Resp BP Sys/Zamorano Pulse Ox Last 24 Hr 97.6 F-98.9 F 72-108 18-29 99-135/60-78 100-100 Intake & Output 04/01/19 04/02/19 04/03/19 04/04/19 23:59 23:59 23:59 23:59 Intake Total 215 1600 350 250 Output Total 0 0 Balance 215 1600 350 250 Weight 86.9 kg 87.657 kg 86.636 kg 86.636 kg Gen: more alert, awake Heart: RRR Lung: decreased breath sounds at the bases Abd: soft, nontender Ext: + edema, dressings wet CBC, BMP 04/04/19 09:55 04/04/19 09:55 Active Medications Albumin Human (Albumin Human 25%) 12.5 gm IVPB Q30M CHANTELL Stop: 04/04/19 12:31 Last Admin: 04/04/19 11:14 Dose: Not Given Amino Acids (Prosource No Carb Liquid Pkt) 30 ml NGT TID ON [facility] Last Admin: 04/04/19 07:00 Dose: 30 ml Apixaban (Eliquis -) 2.5 mg PO BID CHANTELL Last Admin: 04/03/19 21:25 Dose: 2.5 mg Atorvastatin Calcium (Lipitor -) 20 mg NGT HS ON [facility] Last Admin: 04/03/19 21:25 Dose: 20 mg Bacitracin/Polymyxin B Sulfate (Polysporin Ointment -) 1 applic TP DAILY CHANTELL Last Admin: 04/03/19 16:08 Dose: 1 applic Collagenase (Santyl -) 1 applic TP DAILY [facility]; Protocol Last Admin: 04/03/19 11:30 Dose: 1 applic Escitalopram Oxalate (Lexapro -) 10 mg NGT DAILY [facility] Last Admin: 04/03/19 09:06 Dose: 10 mg Hydrocortisone (Cortef -) 50 mg PO DAILY ON [facility] Last Admin: 04/03/19 10:47 Dose: 50 mg Insulin Aspart (Novolog Vial Sliding Scale -) 1 vial SQ Q6HPO ON [facility]; Protocol Last Admin: 04/04/19 06:53 Dose: Not Given Metoprolol Tartrate (Lopressor -) 12.5 mg PO BID ON [facility] Last Admin: 04/03/19 21:26 Dose: 12.5 mg Midodrine (Proamatine -) 10 mg NGT TID-MID ON [facility] Last Admin: 04/03/19 17:45 Dose: 10 mg Morphine Sulfate (Morphine Sulfate) 2 mg IVPUSH Q3H PRN PRN Reason: PAIN LEVEL 6-10 Last Admin: 03/30/19 15:30 Dose: 2 mg Pantoprazole Sodium (Protonix Iv) 40 mg IVPUSH BID ON [facility] Last Admin: 04/03/19 21:26 Dose: 40 mg ASSESSMENT AND PLAN: s/p Acute Respiratory Failure Aspiration Pneumonia Recent ESBL E coli Bacteremia Bilateral Feet Gangrene Infected Decubitus Ulcers Septic Shock resolving ESRD on HD DM HTN Hyperlipidemia h/o CVA - continue antibiotics per ID - continue midodrine - monitoring off pressors, maintain MAP >65 - monitor H/H - local wound care - HD per renal - taper Fio2 to keep Spo2 >90% - aspiration precautions - swallow eval appreciated, trial of puree - DVT prophylaxis - continue efforts to discuss medical condition and prognosis with next of kin - given overall poor condition, current medical condition, and overall poor joint terminal attack controller outcome, recommend palliative/comfort care - continue ICU monitoring critical care time spent in reviewing chart, evaluating patient and formulating plan 35 min
--- NOTE | 2019-04-04 12:14 | PN ---
Physical Exam: SUBJECTIVE: Patient seen and examined. No acute events overnight OBJECTIVE: Vital Signs Period Temp Pulse Resp BP Sys/Zamorano Pulse Ox Last 24 Hr 97.6 F-98.9 F 72-108 18-29 99-135/60-78 100-100 GENERAL: Alert, oriented to self, and location. High flow O2. HEAD: Normal with no signs of trauma. EYES: No scleral icterus NECK: Trachea midline, full range of motion, supple. LUNGS: Breath sounds equal, coarse breath sounds bilaterally (ronchorous), no wheezes noted. HEART: Regular rate and rhythm, S1, S2 without murmur, rub or gallop. ABDOMEN: Soft, nontender, nondistended, normoactive bowel sounds, no guarding, no rebound, no hepatosplenomegaly, no masses. EXTREMITIES: 2+ pulses, warm, well-perfused, 3+ edema bilaterally upper and lower extremities, extremely malodorous with purulent drainage NEUROLOGICAL: Responds to commands. Upper extrmeities moves hands and has sensation. NO movement of lower extrmemities and absent sensation. SKIN: Warm, dry, extensive necrosing wounds on feet bilaterally. Unstagable sacral ulcer (not examined today). Small pustule noted adjacent to old position of now removed L subclavian line Laboratory Results - last 24 hr 04/03/19 04/03/19 04/04/19 16:52 23:58 06:50 WBC RBC Hgb Hct MCV MCH MCHC RDW Plt Count MPV Sodium Potassium Chloride Carbon Dioxide Anion Gap BUN Creatinine Est GFR (CKD-EPI)AfAm Est GFR (CKD-EPI)NonAf POC Glucometer 77 81 62 Random Glucose Calcium Phosphorus Magnesium Total Bilirubin AST ALT Alkaline Phosphatase Total Protein Albumin 04/04/19 04/04/19 09:55 09:55 WBC 10.3 H RBC 2.70 L Hgb 8.2 L Hct 25.5 L MCV 94.5 MCH 30.4 MCHC 32.2 RDW 19.5 H Plt Count 118 L MPV 11.1 D Sodium 140 Potassium 3.3 L Chloride 103 Carbon Dioxide 27 Anion Gap 9 BUN 51.0 H Creatinine 1.8 H Est GFR (CKD-EPI)AfAm 42.03 Est GFR (CKD-EPI)NonAf 36.27 POC Glucometer Random Glucose 56 L Calcium 6.7 L* Phosphorus 5.1 H Magnesium 1.9 Total Bilirubin 0.6 AST 30 ALT 17 Alkaline Phosphatase 532 H Total Protein 4.6 L Albumin 1.2 L Active Medications Current Medications Albumin Human (Albumin Human 25%) 12.5 gm IVPB Q30M [facility] Stop: 04/04/19 12:31 Last Admin: 04/04/19 11:14 Dose: Not Given Amino Acids (Prosource No Carb Liquid Pkt) 30 ml NGT TID [facility] Last Admin: 04/04/19 07:00 Dose: 30 ml Apixaban (Eliquis -) 2.5 mg PO BID [facility] Last Admin: 04/03/19 21:25 Dose: 2.5 mg Atorvastatin Calcium (Lipitor -) 20 mg NGT HS [facility] Last Admin: 04/03/19 21:25 Dose: 20 mg Bacitracin/Polymyxin B Sulfate (Polysporin Ointment -) 1 applic TP DAILY [facility] Last Admin: 04/03/19 16:08 Dose: 1 applic Collagenase (Santyl -) 1 applic TP DAILY [facility]; Protocol Last Admin: 04/03/19 11:30 Dose: 1 applic Dextrose (D50w (Vial) -) 25 gm IVPUSH NOW ONE Stop: 04/04/19 12:08 Escitalopram Oxalate (Lexapro -) 10 mg NGT DAILY [facility] Last Admin: 04/03/19 09:06 Dose: 10 mg Hydrocortisone (Cortef -) 50 mg PO DAILY [facility] Last Admin: 04/03/19 10:47 Dose: 50 mg Insulin Aspart (Novolog Vial Sliding Scale -) 1 vial SQ Q6HPO [facility]; Protocol Last Admin: 04/04/19 06:53 Dose: Not Given Metoprolol Tartrate (Lopressor -) 12.5 mg PO BID [facility] Last Admin: 04/03/19 21:26 Dose: 12.5 mg Midodrine (Proamatine -) 10 mg NGT TID-MID [facility] Last Admin: 04/03/19 17:45 Dose: 10 mg Morphine Sulfate (Morphine Sulfate) 2 mg IVPUSH Q3H PRN PRN Reason: PAIN LEVEL 6-10 Last Admin: 03/30/19 15:30 Dose: 2 mg Pantoprazole Sodium (Protonix Iv) 40 mg IVPUSH BID [facility] Last Admin: 04/03/19 21:26 Dose: 40 mg ASSESSMENT/PLAN: Pt. is a 73 year old male with a PMHx of ESRD (M, W, F), PVD, HLD, DM, COPD, B/ L gangrenous foot ulcer admitted to the ICU after a rapid response was called and the patient was found to be in acute hypercapneic respiratory failure. Neurologic alert and oriented to self and location extubated, now on high flow o2 attempt to wean off high flow o2 and resume ventimask Cardiovascular BP stable with MAPs in the 80-90s on eliquis for afib, however patient remains in sinus rhythm rate control with BB as needed, monitor BP on midodrine for BP continue to monitor hemodynamics home lipitor 20mg lopressor 12.5 mg bid Successfully placed new peripheral IV R AC fossa and L subclavian line Removed ( 04/03/19) . small pustule noted under dressing adjacent to entry site of now removed L subclavian. Site cleaned and dressing changed. Ordered bacitracin oinment and will monitor. Pulmonary pulmonary status was compromised by aspiration, CXR revealed complete white out of R lung, improved extubated, became tachypnic and had increased WOB while on venti-mask last night. Now breathing comfortably on high flow o2. patient already on meropenem on hydrocortisone 50 Daily (decreased from BID) duonebs q6h prn wean as tolerated Gastrointestinal RD recommendations appreciated on protonix IV BID for prior suspected GIB NG tube removed (04/03/19) liver enzymes improving Speech pathology attempted to evaluate patient yesterday (04/02/2019) but patient was unable to participate in the exam--> Now recoomending trial of dysphagia puree honey thick, but will likely need PEG placement Renal patient getting dialysis per nephro hypoalbuminemic due to malnutrition, which is likely the cause of patient third spacing his fluids Dr. Henriquez consulted recs appreciated Heme/Onc anemia likely 2/2 ESRD and decreased erythropoitin continue EPO maintain H&H above 7 by transfusions as needed thrombocytopenia resolving Elliquis restarted 2.5mg bid ENDOCRINE BGM ACHS ISS INFECTIOUS DISEASE extensive wounds on feet continue meropenem Dr. Multani consulted recs appreciated continue Santyl to wounds PSYCHIATRY on home lexapro Prophylaxis Eliquis 2.5mg BID Protonix IV while on AC and pressors bacid F/E/N no fluids continue to monitor lytes Trial of Dysphagia puree--> if fails will likely need PEG placement. May consider NG Tube in the interim LINES R permacath L subclavian line placed 03/27 REMOVED 04/03 R peripheral IV in the AC fossa placed 04/03 CODE full code Disposition Patient is stable for transfer to telemetry or D/C to LTACH Dr. Camarillo spoke with father Lokesh Silva who was explained the current status of the patient, he states that he will have to have a discussion with his son Butch, and that he will be able to come to the hospital within the next week to discuss plans of care. On further discussion, he states that "we just have to just let God do his will, it is an unfortunate state of events". The updated number for Lokesh Silva . Phone may be answered by home health aide, however on request to speak with Lokesh, you will be connected. Visit type - Emergency Visit Emergency Visit: Yes ED Registration Date: 02/21/19 Care time: The patient presented to the Emergency Department on the above date and was hospitalized for further evaluation of their emergent condition. - New Patient This patient is new to me today: Yes Date on this admission: 04/04/19 - Critical Care Critical Care patient: Yes Total Critical Care Time (in minutes): 55 Critical Care Statement: The care of this patient involved high complexity decision making to prevent further life threatening deterioration of the patient 's condition and/or to evaluate & treat vital organ system(s) failure or risk of failure. - Discharge Referral Referred to [facility] Med P.C.: No ATTENDING PHYSICIAN STATEMENT I saw and evaluated the patient. I reviewed the resident's note and discussed the case with the resident. I agree with the resident's findings and plan as documented. SUBJECTIVE: OBJECTIVE: ASSESSMENT AND PLAN:
[2019-04-04] MEDS ORDERED: DEXTROSE 50%-WATER 25 GM/50 ML DISP.SYRIN ONE (12:16)
[2019-04-04] MEDS ORDERED: DEXTROSE 50%-WATER - 25 GM/50 ML VIAL IVPUSH ONE ×2 (12:30→18:44)
--- NOTE | 2019-04-04 12:36 | PN ---
Teaching Attending Note Name of Resident: Michele Mchugh ATTENDING PHYSICIAN STATEMENT I saw and evaluated the patient. I reviewed the resident's note and discussed the case with the resident. I agree with the resident's findings and plan as documented. SUBJECTIVE: no events over night. patient denies any pain or SOB OBJECTIVE: NAD,awake, knows he is in hospital, thinks he is 45 y/o CV: RRR, no MRG Lungs: mild rales anteriorly especially on L side, decreased breath sounds at R side . Abd: NT , ND, nl BS Ext: pitting edema on upper extremities. LE with trace edema. wounds are wrapped ASSESSMENT AND PLAN: 73 y/o man with h/o dementia, CVA, DM, COPD, ESRD, gout, HTN, HLP, recent admission 01/31-02/19 during which he was treated for sepsis due to infected b/l feet ulcers/gangrene. He was sent form NH due to poor po intake, and non healing wounds 1- Acute hypoxic resp failure, 2/2 aspiration. extubated , now on high flow oxygen 2- Septic shock resolved 3- Infected sacral decub and scrotal ulcers 4- Proteus bacteremia ,ESBL producing E coli bacteremia: neg last blood cx 5- ESRD 6- DM. hypoglycemia 7- Infected gangrenous feet wounds 8- anemia 9- A fib with RVR 10- thrombocytopenia Plan: - off Abx now. - received D50 this am for hypoglycemia. try to feed ( puree with honey thick liquids) , if still hypoglycemia, might try very low dose of D5, and monitor sugar - if po intake is not sufficient, then PEG discussion could be held with family. - dc TF - HOB elevation - cont hydrocortisone fro 4 more days then stop - cont midodrine - cont BB for A fib - taper down high flow oxygen - Cont eliquis - HD per schedule - monitor electrolytes - cont lexapro Case d/w Cm today. family will be updated by her about Dai placement. If still agreeable, then will transfer today for continued care.
[2019-04-04] MEDS ORDERED: EPOETIN ALFA 2,000 UNIT/1 ML VIAL IVPUSH ONE (13:03)
--- NOTE | 2019-04-04 13:56 | PN ---
Progress Note, Physician History of Present Illness: Pt seen and examined at bedside. He is tolerating HD. - Current Medication List Current Medications: Active Medications Amino Acids (Prosource No Carb Liquid Pkt) 30 ml NGT TID [facility] Last Admin: 04/04/19 07:00 Dose: 30 ml Apixaban (Eliquis -) 2.5 mg PO BID [facility] Last Admin: 04/03/19 21:25 Dose: 2.5 mg Atorvastatin Calcium (Lipitor -) 20 mg NGT HS [facility] Last Admin: 04/03/19 21:25 Dose: 20 mg Bacitracin/Polymyxin B Sulfate (Polysporin Ointment -) 1 applic TP DAILY [facility] Last Admin: 04/03/19 16:08 Dose: 1 applic Collagenase (Santyl -) 1 applic TP DAILY [facility]; Protocol Last Admin: 04/03/19 11:30 Dose: 1 applic Escitalopram Oxalate (Lexapro -) 10 mg NGT DAILY [facility] Last Admin: 04/03/19 09:06 Dose: 10 mg Hydrocortisone (Cortef -) 50 mg PO DAILY [facility] Last Admin: 04/03/19 10:47 Dose: 50 mg Insulin Aspart (Novolog Vial Sliding Scale -) 1 vial SQ Q6HPO [facility]; Protocol Last Admin: 04/04/19 12:29 Dose: Not Given Metoprolol Tartrate (Lopressor -) 12.5 mg PO BID [facility] Last Admin: 04/03/19 21:26 Dose: 12.5 mg Midodrine (Proamatine -) 10 mg NGT TID-MID [facility] Last Admin: 04/03/19 17:45 Dose: 10 mg Morphine Sulfate (Morphine Sulfate) 2 mg IVPUSH Q3H PRN PRN Reason: PAIN LEVEL 6-10 Last Admin: 03/30/19 15:30 Dose: 2 mg Pantoprazole Sodium (Protonix Iv) 40 mg IVPUSH BID [facility] Last Admin: 04/03/19 21:26 Dose: 40 mg - Objective Vital Signs: Vital Signs Temperature 98.2 F 04/04/19 09:55 Pulse Rate 98 H 04/04/19 13:05 Respiratory Rate 18 04/04/19 13:05 Blood Pressure 125/68 04/04/19 13:05 O2 Sat by Pulse Oximetry (%) 100 04/03/19 23:48 Constitutional: Yes: Mild Distress Eyes: Yes: Conjunctiva Clear Cardiovascular: Yes: S1, S2 Respiratory: Yes: On Venti-Mask Gastrointestinal: Yes: Soft Genitourinary: Yes: Incontinence Musculoskeletal: Yes: Muscle Weakness Edema: Yes Edema: LUE: 1+, RUE: 1+, LLE: 1+, RLE: 1+ Wound/Incision: Yes: Other (odor from wounds) Neurological: Yes: Confusion Labs: CBC, BMP 04/04/19 09:55 INR, PTT INR 1.22 (0.83-1.09) H 03/27/19 15:30 Fibrinogen 459.0 mg/dL (238-498) 03/27/19 15:30 Problem List - Problems (1) ESRD (end stage renal disease) on dialysis Code(s): N18.6 - END STAGE RENAL DISEASE; Z99.2 - DEPENDENCE ON RENAL DIALYSIS Assessment/Plan Current Medications Generic Name Dose Route Start Last Admin Trade Name Freq PRN Reason Stop Dose Admin Amino Acids 30 ml 03/23/19 22:00 04/04/19 07:00 Prosource No Carb Liquid Pkt NGT 30 ml TID CHANTELL Administration Apixaban 2.5 mg 03/29/19 22:00 04/03/19 21:25 Eliquis - PO 2.5 mg BID CHANTELL Administration Atorvastatin Calcium 20 mg 03/23/19 22:00 04/03/19 21:25 Lipitor - NGT 20 mg HS CHANTELL Administration Bacitracin/Polymyxin B Sulfate 1 applic 04/03/19 12:00 04/03/19 16:08 Polysporin Ointment - TP 1 applic DAILY CHANTELL Administration Collagenase 1 applic 03/22/19 10:00 04/03/19 11:30 Santyl - TP 1 applic DAILY CHANTELL Administration Protocol Escitalopram Oxalate 10 mg 03/24/19 10:00 04/03/19 09:06 Lexapro - NGT 10 mg DAILY CHANTELL Administration Hydrocortisone 50 mg 04/02/19 10:00 04/03/19 10:47 Cortef - PO 50 mg DAILY CHANTELL Administration Insulin Aspart 1 vial 04/03/19 13:21 04/04/19 12:29 Novolog Vial Sliding Scale - SQ Not Given Q6HPO CHANTELL Protocol Metoprolol Tartrate 12.5 mg 03/26/19 10:00 04/03/19 21:26 Lopressor - PO 12.5 mg BID CHANTELL Administration Midodrine 10 mg 03/23/19 18:00 04/03/19 17:45 Proamatine - NGT 10 mg TID-MID CHANTELL Administration Morphine Sulfate 2 mg 03/27/19 01:32 03/30/19 15:30 Morphine Sulfate IVPUSH 2 mg Q3H PRN Administration PAIN LEVEL 6-10 Pantoprazole Sodium 40 mg 03/21/19 22:00 04/03/19 21:26 Protonix Iv IVPUSH 40 mg BID CHANTELL Administration Impression 1. ESRD 2. gangrene 3. DM 4. hyperlipidemia 5. HTN 6. gout 7. proteinuria 8. hypotension 9. sepsis 10. resp failure Plan - Pt tolerating HD - cont feeds as tolerated - wound care - 3 k bath on HD - pt is doing poorly
[2019-04-04 13:57] LABS: BLOOD UREA NITROGEN 18.8 mg/dL (7-18); CREATININE 0.8 mg/dL (0.55-1.3)
[2019-04-04] MEDS: COLLAGENASE CLOSTRIDIUM HIST. 30 GRAMS TUBE TP SCH (14:06)
[2019-04-04] MEDS: PANTOPRAZOLE SODIUM 40 MG VIAL IVPUSH SCH ×2 (14:07→21:21)
[2019-04-04] MEDS: MIDODRINE HCL 5 MG TABLET NGT SCH ×3 (14:08→18:34)
[2019-04-04] MEDS: ESCITALOPRAM OXALATE 10 MG TABLET (FP) NGT SCH (14:09)
[2019-04-04] MEDS: MULTIVIT-MINERALS ORAL LIQUID NGT SCH (14:11)
[2019-04-04] MEDS: HYDROCORTISONE 20 MG TABLET PO SCH (14:11)
[2019-04-04] MEDS: BANATROL PLUS POWDER PACKET GT SCH ×2 (14:12→21:20)
[2019-04-04] MEDS: MORPHINE SULFATE 2 MG/ML VIAL IVPUSH PRN (14:49)
--- NOTE | 2019-04-04 14:52 | PN ---
Progress Note, CREDIT CARD SPECIALIST - Note Progress Note: 73 yo pt seen at bedside. Pt is minimally verbal, responding to questions with one word responses. Seen as a follow up to swallow eval with recommendations for dysphagia puree and honey thicken liquids. Chart review indicates that the order was received however, rim fire charger operator reported that pt only consumed about 10% of meal and then was suctioned. Reports are that pt was having some difficulty with bolus containment. Recommendations: Continue to offer purees with honey thicken liquids as tolerated. Consider alternate means of providing nutrition, hydration and medication (if family allows) PEG??? Results given to rim fire charger operator and pcp via chart
--- NOTE | 2019-04-04 17:36 | DS ---
Physical Exam: SUBJECTIVE: Patient seen and examined at the bedside this AM. Patient was on 35% HF O2 at 50L/hr SaO2- 99%. Doing much better. OBJECTIVE: Vital Signs Period Temp Pulse Resp BP Sys/Zamorano Pulse Ox Last 24 Hr 97.6 F-98.9 F 72-108 18-29 99-132/60-78 100-100 PHYSICAL EXAM GENERAL: The patient is AO X2. in no acute distress, poor dentition. NECK: supple. LUNGS: decreased breath sounds, grunting, no wheezes, no crackles, no accessory muscle use. HEART: Regular rate and rhythm, S1, S2 without murmur, rub or gallop. ABDOMEN: Soft, nontender, nondistended, normoactive bowel sounds, no guarding, no rebound. EXTREMITIES:cool, anasarca. NEUROLOGICAL: Normal speech, gait not observed. SKIN: cool, b/l ulcers gangrenous did not assess the ulcers. LABS Laboratory Results - last 24 hr 04/03/19 04/04/19 04/04/19 23:58 06:50 09:55 WBC 10.3 H RBC 2.70 L Hgb 8.2 L Hct 25.5 L MCV 94.5 MCH 30.4 MCHC 32.2 RDW 19.5 H Plt Count 118 L MPV 11.1 D Sodium Potassium Chloride Carbon Dioxide Anion Gap BUN Creatinine Est GFR (CKD-EPI)AfAm Est GFR (CKD-EPI)NonAf POC Glucometer 81 62 Random Glucose Calcium Phosphorus Magnesium Total Bilirubin AST ALT Alkaline Phosphatase Total Protein Albumin 04/04/19 04/04/19 04/04/19 09:55 12:02 13:00 WBC RBC Hgb Hct MCV MCH MCHC RDW Plt Count MPV Sodium 140 Potassium 3.3 L Chloride 103 Carbon Dioxide 27 Anion Gap 9 BUN 51.0 H 18.8 H Creatinine 1.8 H 0.8 Est GFR (CKD-EPI)AfAm 42.03 101.99 Est GFR (CKD-EPI)NonAf 36.27 88.00 POC Glucometer 65 Random Glucose 56 L Calcium 6.7 L* Phosphorus 5.1 H Magnesium 1.9 Total Bilirubin 0.6 AST 30 ALT 17 Alkaline Phosphatase 532 H Total Protein 4.6 L Albumin 1.2 L HOSPITAL COURSE: Date of Admission:02/21/19 This is a 73 y/o M with a PMH of ESRD on dialysis (Monday, , monday) PVD, HLD, DM, COPD, b/l gangrenous ulcers on legs and scrotum admitted for abnormal vital signs. he was found to be in septic shock and was transferred to the ICU. Patient found to have b/l gangrenous ulcers of the lower extremities. Wound cultures positive for ESBL. Patient treated with abx, meropenem, patient completed antibiotics and no longer shows systemic signs of infections. Ulcers continued to be treated with wound care. Amputation of lower extremities deferred by family and Vascular surgeon at this time. While in the ICU blood pressure maintained with pressors, patient able to be weaned off and no longer on IV pressors. During this time patient started on stress dose steroids, currently being tapered down in days from 50mg to 40mg X 3 days, then 20 X 3 days and then stop. On two different occasions patient was intubated for desaturation. This was likely 2/2 to aspiration on both events. Patient able to maintain saturation and airway on high flow oxygen. Patients MAPS maintained above 65. Throughout patients stay his ESRD was managed via dialysis. Patients kidney function at his baseline with monday, , monday dialysis. Patient presented with a low H/H. This was monitored throughout this stay and determined to be 2/2 to chronic disease. Patients afib has been well controlled during his stay here. During stay patient received a high volume of nutrition through NG/OG tube. Patient seen by nutrition and recommended intake of puree and honey thicken liquids, with aspiration precautions in place. Patient vitals stable and stable for car to LTAC. Bcx 02/21/19 growing GN cher - proteus and prevotella ucx neg wound cx E coli, morganella 03/11/19 sputum cx MRSA, pseudomonas A,ecoli esbl, acinetobacter ; bcx ecoli esbl bacteremia. Bcx 03/24/19 neg CXR: bilateral pulmonary infiltrates, pleaural effusions no pneumo thorax Head CT: no acute intracranial pathology, status post left frontal cranicetomy, left frontopraietal cortical/subcortical encephalomacia Date of Discharge: 04/04/19 Discharge Summary Reason For Visit: OPEN WOUND OF FOOT, SEPSIS Current Active Problems ESBL (extended spectrum beta-lactamase) producing bacteria infection (Acute) A-fib (Chronic) ESRD (end stage renal disease) on dialysis (Chronic) Gangrene of both feet (Chronic) Pressure ulcer (Chronic) Sacral decubitus ulcer (Chronic) Condition: Stable - Instructions Diet, Activity, Other Instructions: You were admitted for having an infection in your blood as well as on both your legs (ulcers). While you were here you received antibiotics for the infection. antibiotics were stopped when blood culture showed no more bacteria While you were here we treated your poor kidney function with dialysis. Dialysis will be continued on Monday, , and Monday. Acute hypoxic respiratory failure with recurrent intubation. Now on high flow oxygen. Please continue to use the high flow to keep your oxygen saturation > 90 %. taper down if possible dysphagia and poor po intake. trial of puree diet with honey thick liquids. if not sustaining enough nurition, then discussion about PEG tube. continue the hydrocortisone 50 mg by mouth daily for 4 more days. then 20 mg for 3 days then stop. it was used when shock was present To treat atrial fibrilation please give Metoprolol 12.5 mg per day with holding prameters 9 hold for SBP < 100, DBP< 60 , HR< 60 ) eliquis 2.5 BID To continue treatment of ulcers: Please continue to change and dress the wounds daily . Also apply bacitracin ointment and collagenase daily then wrap with clean gauze. other instructions per [place] Continue all home meds as prescribed. avoid and treat hypoglycemia. if hyperglycemia, can use sliding scale insuin carefully. Referrals: Amos Mcneil DO [Staff Physician] - Luis Felipe Palmer MD [Staff Physician] - Layla Henriquez MD [Staff Physician] - Disposition: TRANSFER ACUTE CARE/OTHER HOSP - Home Medications Comprehensive Discharge Medication List: Ambulatory Orders Albuterol 2.5/Ipratropium 0.5 [Duoneb -] 1 amp NEB Q6H PRN #0 amp 07/12/17 Allopurinol [Zyloprim -] 100 mg PO DAILY tablet 07/12/17 Atorvastatin Ca [Lipitor] 20 mg PO HS tablet 07/12/17 Collagenase Clostridium Hist. [Santyl -] 1 applic TP DAILY tube 09/06/18 Albuterol Sulfate [Proair Hfa] 2 puff IH Q6H PRN 10/29/18 Escitalopram Oxalate [Lexapro -] 10 mg PO DAILY 10/29/18 Folic Acid/Vit B Complex and C [Dialyvite Tablet] 1 each PO DAILY 10/29/18 Sevelamer Carbonate [Renvela -] 1,600 mg PO TID 10/29/18 Insulin Sliding Scale [Novolog Vial Sliding Scale -] 1 vial SQ TIDAC #1 vial Protein Supplement [Prosource] 275 gm PO TID #60 powder 02/06/19 Apixaban [Eliquis] 2.5 mg PO BID #60 tablet 04/04/19 Bacitracin/Polymyxin Ointment [Polysporin Ointment -] 1 applic TP DAILY tube Hydrocortisone [Cortef -] 50 mg PO DAILY #4 tablet 04/04/19 Metoprolol Tartrate [Lopressor -] 12.5 mg PO BID #0 tablet 04/04/19 Midodrine HCl 10 mg PO TID #90 tablet 04/04/19 Pantoprazole Sodium [Protonix IV] 40 mg IVPUSH BID vial 04/04/19 - Discharge Referral Referred to [facility] No ATTENDING PHYSICIAN STATEMENT I saw and evaluated the patient. I reviewed the resident's note and discussed the case with the resident. I agree with the resident's findings and plan as documented. SUBJECTIVE: OBJECTIVE: ASSESSMENT AND PLAN:
[2019-04-04] MEDS ORDERED: PT OWN MED DRAWER 7, Y5N ONE ×2 (17:56→21:23)
[2019-04-04] MEDS ORDERED: DEXTROSE 5%-WATER - 500 ML IV SCH (18:45)
[2019-04-05] MEDS: ATORVASTATIN CA 20 MG TABLET (FP) NGT SCH (01:18)
[2019-04-05] MEDS: INSULIN SLIDING SCALE (NOVOLOG) 1 VIAL SQ SCH ×3 (01:25→12:15)
[2019-04-05] MEDS ORDERED: DEXTROSE 4 GM TAB.CHEW PO ONE (01:29)
[2019-04-05] MEDS ORDERED: DEXTROSE 50%-WATER 25 GM/50 ML DISP.SYRIN ONE (04:19)
[2019-04-05] MEDS: AMINO ACIDS/PROTEIN HYDROLYS 30 ML LIQUID.PKT NGT SCH ×2 (05:17→14:28)
--- NOTE | 2019-04-05 09:17 | PN ---
Physical Exam: SUBJECTIVE: Patient seen and examined at bedside. No acute events overnight. Patient currently does not have any IV access and no longer has an NG tube. OBJECTIVE: Vital Signs Period Temp Pulse Resp BP Sys/Zamorano Pulse Ox Last 24 Hr 97.5 F-98.2 F 72-99 18-26 99-130/60-81 100-100 GENERAL: Alert, oriented to self, and location. High flow O2. HEAD: Normal with no signs of trauma. EYES: No scleral icterus NECK: Trachea midline, full range of motion, supple. LUNGS: Breath sounds equal, coarse breath sounds bilaterally (ronchorous), no wheezes noted. HEART: Regular rate and rhythm, S1, S2 without murmur, rub or gallop. ABDOMEN: Soft, nontender, nondistended, normoactive bowel sounds, no guarding, no rebound, no hepatosplenomegaly, no masses. EXTREMITIES: 2+ pulses, warm, well-perfused, 3+ edema bilaterally upper and lower extremities, extremely malodorous with purulent drainage NEUROLOGICAL: Responds to commands. Upper extrmeities moves hands and has sensation. NO movement of lower extrmemities and absent sensation. SKIN: Warm, dry, extensive necrosing wounds on feet bilaterally. Unstagable sacral ulcer (not examined today). Small pustule noted adjacent to old position of now removed L subclavian line Laboratory Results - last 24 hr 04/04/19 04/04/19 04/04/19 09:55 09:55 12:02 WBC 10.3 H RBC 2.70 L Hgb 8.2 L Hct 25.5 L MCV 94.5 MCH 30.4 MCHC 32.2 RDW 19.5 H Plt Count 118 L MPV 11.1 D Sodium 140 Potassium 3.3 L Chloride 103 Carbon Dioxide 27 Anion Gap 9 BUN 51.0 H Creatinine 1.8 H Est GFR (CKD-EPI)AfAm 42.03 Est GFR (CKD-EPI)NonAf 36.27 POC Glucometer 65 Random Glucose 56 L Calcium 6.7 L* Phosphorus 5.1 H Magnesium 1.9 Total Bilirubin 0.6 AST 30 ALT 17 Alkaline Phosphatase 532 H Total Protein 4.6 L Albumin 1.2 L 04/04/19 04/04/19 04/05/19 13:00 18:39 01:21 WBC RBC Hgb Hct MCV MCH MCHC RDW Plt Count MPV Sodium Potassium Chloride Carbon Dioxide Anion Gap BUN 18.8 H Creatinine 0.8 Est GFR (CKD-EPI)AfAm 101.99 Est GFR (CKD-EPI)NonAf 88.00 POC Glucometer 65 51 Random Glucose Calcium Phosphorus Magnesium Total Bilirubin AST ALT Alkaline Phosphatase Total Protein Albumin 04/05/19 04/05/19 04:25 06:15 WBC RBC Hgb Hct MCV MCH MCHC RDW Plt Count MPV Sodium Potassium Chloride Carbon Dioxide Anion Gap BUN Creatinine Est GFR (CKD-EPI)AfAm Est GFR (CKD-EPI)NonAf POC Glucometer 109 89 Random Glucose Calcium Phosphorus Magnesium Total Bilirubin AST ALT Alkaline Phosphatase Total Protein Albumin Active Medications Generic Name Dose Route Start Last Admin Trade Name Freq PRN Reason Stop Dose Admin Amino Acids 30 ml 03/23/19 22:00 04/05/19 05:17 Prosource No Carb Liquid Pkt NGT Not Given TID CHANTELL Apixaban 2.5 mg 03/29/19 22:00 04/04/19 21:00 Eliquis - PO 2.5 mg BID CHANTELL Administration Atorvastatin Calcium 20 mg 03/23/19 22:00 04/05/19 01:18 Lipitor - NGT Not Given HS CHANTELL Bacitracin/Polymyxin B Sulfate 1 applic 04/03/19 12:00 04/04/19 10:30 Polysporin Ointment - TP 1 applic DAILY CHANTELL Administration Collagenase 1 applic 03/22/19 10:00 04/04/19 14:06 Santyl - TP 1 applic DAILY CHANTELL Administration Protocol Escitalopram Oxalate 10 mg 03/24/19 10:00 04/04/19 14:09 Lexapro - NGT 10 mg DAILY CHANTELL Administration Hydrocortisone 50 mg 04/02/19 10:00 04/04/19 14:11 Cortef - PO 50 mg DAILY CHANTELL Administration Insulin Aspart 1 vial 04/03/19 13:21 04/05/19 06:54 Novolog Vial Sliding Scale - SQ Not Given Q6HPO CHANTELL Protocol Metoprolol Tartrate 12.5 mg 03/26/19 10:00 04/04/19 21:00 Lopressor - PO 12.5 mg BID CHANTELL Administration Midodrine 10 mg 03/23/19 18:00 04/04/19 18:34 Proamatine - NGT 10 mg TID-MID CHANTELL Administration Morphine Sulfate 2 mg 03/27/19 01:32 07/11/19 14:49 Morphine Sulfate IVPUSH 2 mg Q3H PRN Administration PAIN LEVEL 6-10 Pantoprazole Sodium 40 mg 03/21/19 22:00 04/04/19 21:21 Protonix Iv IVPUSH Not Given BID [facility] ASSESSMENT/PLAN: ASSESSMENT/PLAN: Pt. is a 73 year old male with a PMHx of ESRD (M, W, F), PVD, HLD, DM, COPD, B/ L gangrenous foot ulcer admitted to the ICU after a rapid response was called and the patient was found to be in acute hypercapneic respiratory failure. Now doing well, breathing and satting comfortably on NC, no longer on pressors with stable MAPs. Patient is safe to transfer. Neurologic alert and oriented to self and location extubated, now on 4L NC Cardiovascular BP stable with MAPs in the 80-90s on eliquis for afib, however patient remains in sinus rhythm rate control with BB as needed, monitor BP on midodrine for BP continue to monitor hemodynamics home lipitor 20mg lopressor 12.5 mg bid Successfully placed new peripheral IV R AC fossa and L subclavian line Removed ( 04/03/19) . small pustule noted under dressing adjacent to entry site of now removed L subclavian. Site cleaned and dressing changed. Ordered bacitracin oinment and will monitor. Pulmonary pulmonary status was compromised by aspiration, CXR revealed complete white out of R lung. Now improved extubated, now breathing comfortably on 4L NC on hydrocortisone 50 Daily (decreased from BID) duonebs q6h prn wean as tolerated Gastrointestinal RD recommendations appreciated on protonix IV BID for prior suspected GIB NG tube removed (04/03/19) liver enzymes improving Speech pathology attempted to evaluate patient (04/02/2019) but patient was unable to participate in the exam--> Now recommending trial of dysphagia puree honey thick, but will likely need PEG placement Renal patient getting dialysis per nephro hypoalbuminemic due to malnutrition, which is likely the cause of patient third spacing his fluids Dr. Henriquez consulted recs appreciated Heme/Onc anemia likely 2/2 ESRD and decreased erythropoitin continue EPO maintain H&H above 7 by transfusions as needed thrombocytopenia resolving Elliquis restarted 2.5mg bid ENDOCRINE BGM [facility]S ISS INFECTIOUS DISEASE extensive wounds on feet continue meropenem Dr. Multani consulted recs appreciated continue Santyl to wounds PSYCHIATRY on home lexapro Prophylaxis Eliquis 2.5mg BID Protonix IV while on AC and pressors bacid F/E/N no fluids continue to monitor lytes Trial of Dysphagia puree--> if fails will likely need PEG placement. May consider NG Tube in the interim LINES R permacath L subclavian line placed 03/27 REMOVED 04/03 R peripheral IV in the AC fossa placed 04/03, REMOVED 04/04 CODE full code Disposition Patient is stable for transfer to telemetry or D/C to [facility] Dr. Camarillo spoke with father Lokesh Silva who was explained the current status of the patient, he states that he will have to have a discussion with his son Butch, and that he will be able to come to the hospital within the next week to discuss plans of care. On further discussion, he states that "we just have to just let God do his will, it is an unfortunate state of events". The updated number for Lokesh Silva . Phone may be answered by home health aide, however on request to speak with Lokesh, you will be connected. Visit type - Emergency Visit Emergency Visit: Yes ED Registration Date: 02/21/19 Care time: The patient presented to the Emergency Department on the above date and was hospitalized for further evaluation of their emergent condition. - New Patient This patient is new to me today: No - Critical Care Critical Care patient: Yes Total Critical Care Time (in minutes): 40 Critical Care Statement: The care of this patient involved high complexity decision making to prevent further life threatening deterioration of the patient 's condition and/or to evaluate & treat vital organ system(s) failure or risk of failure. ATTENDING PHYSICIAN STATEMENT I saw and evaluated the patient. I reviewed the resident's note and discussed the case with the resident. I agree with the resident's findings and plan as documented. SUBJECTIVE: OBJECTIVE: ASSESSMENT AND PLAN:
[2019-04-05] MEDS: PANTOPRAZOLE SODIUM 40 MG VIAL IVPUSH SCH (09:54)
[2019-04-05] MEDS: MIDODRINE HCL 5 MG TABLET NGT SCH ×2 (09:59→14:29)
[2019-04-05] MEDS: HYDROCORTISONE 20 MG TABLET PO SCH (09:59)
[2019-04-05] MEDS: APIXABAN 2.5 MG TABLET PO SCH (10:00)
[2019-04-05] MEDS: METOPROLOL TARTRATE 25 MG TABLET (FP) PO SCH (10:01)
[2019-04-05] MEDS: ESCITALOPRAM OXALATE 10 MG TABLET (FP) NGT SCH (10:01)
[2019-04-05] MEDS: MULTIVIT-MINERALS ORAL LIQUID NGT SCH (10:02)
[2019-04-05] MEDS: BACITRACIN/POLYMYXIN B SULFATE 15 GM TUBE TP SCH (10:30)
[2019-04-05] MEDS: COLLAGENASE CLOSTRIDIUM HIST. 30 GRAMS TUBE TP SCH (10:30)
[2019-04-05] MEDS: BANATROL PLUS POWDER PACKET GT SCH (11:45)
--- NOTE | 2019-04-05 12:06 | PN ---
Progress Note, Physician History of Present Illness: Pt seen and examined at bedside. No great change in status. He is being transferred to a intermediate acute care facility. - Current Medication List Current Medications: Active Medications Amino Acids (Prosource No Carb Liquid Pkt) 30 ml NGT TID [facility] Last Admin: 04/05/19 05:17 Dose: Not Given Apixaban (Eliquis -) 2.5 mg PO BID [facility] Last Admin: 04/05/19 10:00 Dose: 2.5 mg Atorvastatin Calcium (Lipitor -) 20 mg NGT HS [facility] Last Admin: 04/05/19 01:18 Dose: Not Given Bacitracin/Polymyxin B Sulfate (Polysporin Ointment -) 1 applic TP DAILY [facility] Last Admin: 04/04/19 10:30 Dose: 1 applic Collagenase (Santyl -) 1 applic TP DAILY [facility]; Protocol Last Admin: 04/04/19 14:06 Dose: 1 applic Escitalopram Oxalate (Lexapro -) 10 mg NGT DAILY [facility] Last Admin: 04/05/19 10:01 Dose: 10 mg Hydrocortisone (Cortef -) 50 mg PO DAILY [facility] Last Admin: 04/05/19 09:59 Dose: 50 mg Insulin Aspart (Novolog Vial Sliding Scale -) 1 vial SQ Q6HPO [facility]; Protocol Last Admin: 04/05/19 06:54 Dose: Not Given Metoprolol Tartrate (Lopressor -) 12.5 mg PO BID [facility] Last Admin: 04/05/19 10:01 Dose: 12.5 mg Midodrine (Proamatine -) 10 mg NGT TID-MID [facility] Last Admin: 04/05/19 09:59 Dose: 10 mg Morphine Sulfate (Morphine Sulfate) 2 mg IVPUSH Q3H PRN PRN Reason: PAIN LEVEL 6-10 Last Admin: 04/04/19 14:49 Dose: 2 mg Pantoprazole Sodium (Protonix Iv) 40 mg IVPUSH BID [facility] Last Admin: 04/05/19 09:54 Dose: Not Given - Objective Vital Signs: Vital Signs Temperature 98.0 F 04/05/19 04:00 Pulse Rate 74 04/05/19 08:26 Respiratory Rate 21 H 04/05/19 09:00 Blood Pressure 122/81 04/05/19 06:00 O2 Sat by Pulse Oximetry (%) 100 04/05/19 09:00 Constitutional: Yes: Mild Distress HENT: Yes: Atraumatic Neck: Yes: Supple Cardiovascular: Yes: S1, S2 Respiratory: Yes: On Nasal O2 Gastrointestinal: Yes: Soft Genitourinary: Yes: Incontinence Musculoskeletal: Yes: Muscle Weakness Edema: Yes Edema: LUE: 1+, RUE: 1+ Wound/Incision: Yes: Other (odor from wounds) Neurological: Yes: Confusion Labs: CBC, BMP 04/04/19 09:55 04/04/19 13:00 INR, PTT INR 1.22 (0.83-1.09) H 03/27/19 15:30 Fibrinogen 459.0 mg/dL (238-498) 03/27/19 15:30 Problem List - Problems (1) ESRD (end stage renal disease) on dialysis Code(s): N18.6 - END STAGE RENAL DISEASE; Z99.2 - DEPENDENCE ON RENAL DIALYSIS Assessment/Plan Current Medications Generic Name Dose Route Start Last Admin Trade Name Freq PRN Reason Stop Dose Admin Amino Acids 30 ml 03/23/19 22:00 04/05/19 05:17 Prosource No Carb Liquid Pkt NGT Not Given TID [facility] Apixaban 2.5 mg 03/29/19 22:00 04/05/19 10:00 Eliquis - PO 2.5 mg BID [facility] Administration Atorvastatin Calcium 20 mg 03/23/19 22:00 04/05/19 01:18 Lipitor - NGT Not Given HS [facility] Bacitracin/Polymyxin B Sulfate 1 applic 04/03/19 12:00 04/04/19 10:30 Polysporin Ointment - TP 1 applic DAILY [facility] Administration Collagenase 1 applic 03/22/19 10:00 04/04/19 14:06 Santyl - TP 1 applic DAILY [facility] Administration Protocol Escitalopram Oxalate 10 mg 03/24/19 10:00 04/05/19 10:01 Lexapro - NGT 10 mg DAILY [facility] Administration Hydrocortisone 50 mg 04/02/19 10:00 04/05/19 09:59 Cortef - PO 50 mg DAILY [facility] Administration Insulin Aspart 1 vial 04/03/19 13:21 04/05/19 06:54 Novolog Vial Sliding Scale - SQ Not Given Q6HPO [facility] Protocol Metoprolol Tartrate 12.5 mg 03/26/19 10:00 04/05/19 10:01 Lopressor - PO 12.5 mg BID [facility] Administration Midodrine 10 mg 03/23/19 18:00 04/05/19 09:59 Proamatine - NGT 10 mg TID-MID [facility] Administration Morphine Sulfate 2 mg 03/27/19 01:32 04/04/19 14:49 Morphine Sulfate IVPUSH 2 mg Q3H PRN Administration PAIN LEVEL 6-10 Pantoprazole Sodium 40 mg 03/21/19 22:00 04/05/19 09:54 Protonix Iv IVPUSH Not Given BID [facility] Impression 1. ESRD 2. gangrene 3. DM 4. hyperlipidemia 5. HTN 6. gout 7. proteinuria 8. hypotension 9. sepsis 10. resp failure Plan - next HD should be tomorrow - will need HD in intermediate facility - wound care - 3 k bath on HD - pt is doing poorly
--- NOTE | 2019-04-05 12:15 | PN ---
Teaching Attending Note Name of Resident: Sarina Estrada ATTENDING PHYSICIAN STATEMENT I saw and evaluated the patient. I reviewed the resident's note and discussed the case with the resident. I agree with the resident's findings and plan as documented. SUBJECTIVE: Patient seen and examined in the ICU. Currently on NC O2. No pressors. Awaiting transfer to LTAC. Intake & Output 04/02/19 04/03/19 04/04/19 04/05/19 23:59 23:59 23:59 23:59 Intake Total 1600 350 250 Output Total 0 Balance 1600 350 250 Weight 193 lb 4 oz 191 lb 191 lb 188 lb 11.2 oz Last Vital Signs Temp Pulse Resp BP Pulse Ox 98.0 F 74 21 H 122/81 100 04/05/19 04:00 04/05/19 08:26 04/05/19 09:00 04/05/19 06:00 04/05/19 09:00 Active Medications Amino Acids (Prosource No Carb Liquid Pkt) 30 ml NGT TID [facility] Last Admin: 04/05/19 05:17 Dose: Not Given Apixaban (Eliquis -) 2.5 mg PO BID [facility] Last Admin: 04/05/19 10:00 Dose: 2.5 mg Atorvastatin Calcium (Lipitor -) 20 mg NGT HS [facility] Last Admin: 04/05/19 01:18 Dose: Not Given Bacitracin/Polymyxin B Sulfate (Polysporin Ointment -) 1 applic TP DAILY [facility] Last Admin: 04/04/19 10:30 Dose: 1 applic Collagenase (Santyl -) 1 applic TP DAILY [facility]; Protocol Last Admin: 04/04/19 14:06 Dose: 1 applic Escitalopram Oxalate (Lexapro -) 10 mg NGT DAILY [facility] Last Admin: 04/05/19 10:01 Dose: 10 mg Hydrocortisone (Cortef -) 50 mg PO DAILY [facility] Last Admin: 04/05/19 09:59 Dose: 50 mg Insulin Aspart (Novolog Vial Sliding Scale -) 1 vial SQ Q6HPO [facility]; Protocol Last Admin: 04/05/19 06:54 Dose: Not Given Metoprolol Tartrate (Lopressor -) 12.5 mg PO BID [facility] Last Admin: 04/05/19 10:01 Dose: 12.5 mg Midodrine (Proamatine -) 10 mg NGT TID-MID [facility] Last Admin: 04/05/19 09:59 Dose: 10 mg Morphine Sulfate (Morphine Sulfate) 2 mg IVPUSH Q3H PRN PRN Reason: PAIN LEVEL 6-10 Last Admin: 04/04/19 14:49 Dose: 2 mg Pantoprazole Sodium (Protonix Iv) 40 mg IVPUSH BID [facility] Last Admin: 04/05/19 09:54 Dose: Not Given Gen: Lethargic bit arousable, confused Heart: RRR Lung: decreased breath sounds at the bases Abd: soft, nontender Ext: + edema, dressings wet Intake & Output 04/02/19 04/03/19 04/04/19 04/05/19 23:59 23:59 23:59 23:59 Intake Total 1600 350 250 Output Total 0 Balance 1600 350 250 Weight 193 lb 4 oz 191 lb 191 lb 188 lb 11.2 oz Last Vital Signs Temp Pulse Resp BP Pulse Ox 98.0 F 74 21 H 122/81 100 04/05/19 04:00 04/05/19 08:26 04/05/19 09:00 04/05/19 06:00 04/05/19 09:00 Active Medications Amino Acids (Prosource No Carb Liquid Pkt) 30 ml NGT TID [facility] Last Admin: 04/05/19 05:17 Dose: Not Given Apixaban (Eliquis -) 2.5 mg PO BID [facility] Last Admin: 04/05/19 10:00 Dose: 2.5 mg Atorvastatin Calcium (Lipitor -) 20 mg NGT HS [facility] Last Admin: 04/05/19 01:18 Dose: Not Given Bacitracin/Polymyxin B Sulfate (Polysporin Ointment -) 1 applic TP DAILY [facility] Last Admin: 04/04/19 10:30 Dose: 1 applic Collagenase (Santyl -) 1 applic TP DAILY [facility]; Protocol Last Admin: 04/04/19 14:06 Dose: 1 applic Escitalopram Oxalate (Lexapro -) 10 mg NGT DAILY [facility] Last Admin: 04/05/19 10:01 Dose: 10 mg Hydrocortisone (Cortef -) 50 mg PO DAILY [facility] Last Admin: 04/05/19 09:59 Dose: 50 mg Insulin Aspart (Novolog Vial Sliding Scale -) 1 vial SQ Q6HPO [facility]; Protocol Last Admin: 04/05/19 06:54 Dose: Not Given Metoprolol Tartrate (Lopressor -) 12.5 mg PO BID [facility] Last Admin: 04/05/19 10:01 Dose: 12.5 mg Midodrine (Proamatine -) 10 mg NGT TID-MID [facility] Last Admin: 04/05/19 09:59 Dose: 10 mg Morphine Sulfate (Morphine Sulfate) 2 mg IVPUSH Q3H PRN PRN Reason: PAIN LEVEL 6-10 Last Admin: 04/04/19 14:49 Dose: 2 mg Pantoprazole Sodium (Protonix Iv) 40 mg IVPUSH BID [facility] Last Admin: 04/05/19 09:54 Dose: Not Given ASSESSMENT AND PLAN: s/p Acute Respiratory Failure Aspiration Pneumonia Recent ESBL E coli Bacteremia Bilateral Feet Gangrene Infected Decubitus Ulcers Septic Shock resolving ESRD on HD DM HTN Hyperlipidemia h/o CVA - continue antibiotics per ID - continue midodrine - monitoring off pressors, maintain MAP >65 - monitor H/H - local wound care - HD per renal - taper Fio2 to keep Spo2 >90% - aspiration precautions - PO as tolerated - DVT prophylaxis - continue efforts to discuss medical condition and prognosis with next of kin - For transfer to LTAC Dr Palmer
--- NOTE | 2019-04-05 13:57 | PN ---
Teaching Attending Note Name of Resident: Michele Mchugh ATTENDING PHYSICIAN STATEMENT I saw and evaluated the patient. I reviewed the resident's note and discussed the case with the resident. I agree with the resident's findings and plan as documented. SUBJECTIVE: No events over night. VS reviewed. comfortable in bed ASSESSMENT AND PLAN: 73 y/o man with h/o dementia, CVA, DM, COPD, ESRD, gout, HTN, HLP, recent admission 01/31-02/19 during which he was treated for sepsis due to infected b/l feet ulcers/gangrene. He was sent form NH due to poor po intake, and non healing wounds 1- Acute hypoxic resp failure, 2/2 aspiration. extubated , now on high flow oxygen 2- Septic shock resolved 3- Infected sacral decub and scrotal ulcers 4- Proteus bacteremia ,ESBL producing E coli bacteremia: neg last blood cx 5- ESRD 6- DM. 7- Infected gangrenous feet wounds 8- anemia 9- A fib with RVR 10- Thrombocytopenia Plan: - off Abx now. will need to be re-cultured if fever recurs - cont puree with honey thick liquids. if not able to support his needs or shows signs of aspiration, then PEG discussion can be started . - HOB elevation - give meds through NG tube as might spit them - cont hydrocortisone taper as per discharge instructins : 4 more days at 50 then 20 mg dialy x 3 days then stop - cont midodrine - cont BB for A fib - taper down high flow oxygen - Cont eliquis - HD per schedule , next one tomorrow - monitor electrolytes - cont lexapro - use SSI if hyperglycemis. avoid hypoglycemia Accepted to [facility]. did not leave yesterday. transportation set for this afternoon
[2019-04-05 14:24] VITALS: TEMP 97.5
--- NOTE | 2019-04-05 15:10 | PN ---
Progress Note (short form) - Note Progress Note: Pt to be transferred to [facility]. Attempted to contact daughter with consent for transfer due to HCP, however no response. Contacted [facility]K father who verbally gave his consent and is aware. Papers in physical chart.
[2019-04-05 16:44] VITALS: BP 129/67; PULSE 81
== END 2019-04-05 16:40 | disposition short-term general hospital (02) | DRG 870 ==
LOC: JER 14:21 → JERBED 17:13 → J2W 18:48 → JICU 02-22 10:38 → J4S 03-21 18:42 → JICU 03-25 21:32
PROVIDERS: ADMIT Internal Medicine; ATTEND Internal Medicine
PROC: 05HN33Z Insertion of Infusion Device into Left Internal Jugular Vein, Percutaneous Approach (ICD-10-PCS; 2019-02-22)
PROC: 5A1955Z Respiratory Ventilation, Greater than 96 Consecutive Hours (ICD-10-PCS; principal; 2019-03-25)
PROC: 0BH17EZ Insertion of Endotracheal Airway into Trachea, Via Natural or Artificial Opening (ICD-10-PCS; 2019-03-25)
PROC: 05H633Z Insertion of Infusion Device into Left Subclavian Vein, Percutaneous Approach (ICD-10-PCS; 2019-03-27)
PROC: 5A1D70Z Performance of Urinary Filtration, Intermittent, Less than 6 Hours Per Day (ICD-10-PCS; 2019-04-04)
DX: A41.51 Sepsis due to Escherichia coli [E. coli] (principal); L89.894 Pressure ulcer of other site, stage 4; L89.153 Pressure ulcer of sacral region, stage 3; J69.0 Pneumonitis due to inhalation of food and vomit; J96.01 Acute respiratory failure with hypoxia; R65.21 Severe sepsis with septic shock; N18.6 End stage renal disease; E43 Unspecified severe protein-calorie malnutrition; J96.02 Acute respiratory failure with hypercapnia; G93.41 Metabolic encephalopathy; I12.0 Hypertensive chronic kidney disease with stage 5 chronic kidney disease or end stage renal disease; K92.2 Gastrointestinal hemorrhage, unspecified; I96 Gangrene, not elsewhere classified; E87.1 Hypo-osmolality and hyponatremia; N17.9 Acute kidney failure, unspecified; E87.2 Acidosis; D64.9 Anemia, unspecified; E11.22 Type 2 diabetes mellitus with diabetic chronic kidney disease; Z99.2 Dependence on renal dialysis; I48.91 Unspecified atrial fibrillation; D69.6 Thrombocytopenia, unspecified; E78.5 Hyperlipidemia, unspecified; I95.9 Hypotension, unspecified; M10.9 Gout, unspecified; E88.09 Other disorders of plasma-protein metabolism, not elsewhere classified; L89.159 Pressure ulcer of sacral region, unspecified stage; E11.649 Type 2 diabetes mellitus with hypoglycemia without coma; E87.6 Hypokalemia; E83.51 Hypocalcemia; R74.0 Nonspecific elevation of levels of transaminase and lactic acid dehydrogenase [LDH]; J44.9 Chronic obstructive pulmonary disease, unspecified; E11.9 Type 2 diabetes mellitus without complications; R56.9 Unspecified convulsions; D63.1 Anemia in chronic kidney disease; N40.0 Benign prostatic hyperplasia without lower urinary tract symptoms; I73.9 Peripheral vascular disease, unspecified; D72.829 Elevated white blood cell count, unspecified; E83.39 Other disorders of phosphorus metabolism; E83.42 Hypomagnesemia
CPT/HCPCS: 31500; 36415; 36430; 36511; 36600; 70450-TC; 71045-TC-FY; 80048; 80053; 80307; 81003; 82009; 82040; 82140; 82533; 82565; 82803; 82962; 83605; 83735; 83880; 84100; 84132; 84134; 84443; 84484; 84520; 85025; 85027; 85384; 85610; 85730; 86803; 86850; 86870; 86900; 86901; 86902; 86922; 87040; 87070; 87076; 87077; 87086; 87186; 87205; 87340; 93005; 93010; 94002; 97161-GP; 99284-25; G0480; J0131; J0885; J7030; P9038; P9047; P9058